=== PATIENT | male | born 1945 | race Caucasian/White ===

== ENCOUNTER 2016-09-24 13:16 | Emergency (ER) | payer OTHER ==
[~2016-09-24] VITALS: Ht 172.7 cm; Wt 78.3 kg
[~2016-09-24 13:16] MED LIST: ATEN-100 PO; DILA100C PO; TERA1CAP3 PO
[2016-09-24 13:58] VITALS: BP 144/78; PULSE 74; RESP 18; TEMP 98.5; O2SAT 93
[2016-09-24] MEDS ORDERED: SIMV40TA PO (14:39)
[2016-09-24] MEDS ORDERED: ATEN25TA PO (14:39)
[2016-09-24] MEDS ORDERED: DILA100C PO (14:39)
[2016-09-24] MEDS ORDERED: TERA1CAP3 PO (14:39)
[2017-03-11] MEDS ORDERED: shower chair (12:37)
[2017-03-11] MEDS ORDERED: WHEEMIS3 (12:37)
[2017-03-11] MEDS ORDERED: COMMODE 3-IN-11 MIS (12:37)
[2017-03-11] MEDS ORDERED: GETGO ROLLING W1 MI1 (12:37)
[2017-03-11] MEDS ORDERED: [UNRECOGNIZED DRUG - SUPPLY] (13:50)
[2017-03-11] MEDS ORDERED: PROT40TA PO (13:55)
[2017-03-11] MEDS ORDERED: CARV3.125 PO (13:55)
[2017-03-11] MEDS ORDERED: NIFE30TA8 PO (13:55)
[2017-03-11] MEDS ORDERED: SYMB160A INH (13:55)
[2017-03-11] MEDS ORDERED: CARD2TAB PO (13:55)
[2017-03-11] MEDS ORDERED: VENTAER INH (13:55)
[2017-03-11] MEDS ORDERED: ATOR40TA16 PO (13:55)
[2017-03-11] MEDS ORDERED: FERR325T20 PO (13:55)
[2017-03-11] MEDS ORDERED: TAMS5CAP PO (13:55)
[2017-03-11] MEDS ORDERED: DILA100C PO (13:55)
== END 2016-09-24 14:56 | disposition left against medical advice (07) ==
LOC: PHED 13:16 → PHEFT 14:56
DX: R04.2 Hemoptysis (principal); R53.83 Other fatigue
CPT/HCPCS: 99281

== ENCOUNTER 2016-10-21 08:11 | Inpatient (IN) | payer MEDICARE, OTHER ==
[2016-10-21] VITALS (18 sets, daily range): BP systolic 113–163; BP diastolic 67–79; PULSE 68–82; RESP 16–28; TEMP 98.6; O2SAT 77–100
[~2016-10-21] VITALS: Ht 172.7 cm; Wt 92.5 kg
[~2016-10-21 08:11] MED LIST changes: -ATEN-100 PO; +ATEN25TA PO; +SIMV40TA PO
[2016-10-21 08:30] LABS: AUTOMATED NEUTROPHIL # 7.8 TH/MM3 (1.8-7.7); BASOPHIL # 0.5 TH/MM3 (0-0.2); BASOPHIL % 4.3 % (0.0-2.0); EOSINOPHIL # 0.2 TH/MM3 (0-0.4); EOSINOPHIL % 1.9 % (0.0-4.0); HEMATOCRIT 39.5 % (39.0-51.0); HEMO FLAGS DIFF FINAL; LYMPH % 16.4 % (9.0-44.0); LYMPHOCYTE # 1.8 TH/MM3 (1.0-4.8); MEAN CELL VOLUME 85.5 FL (80.0-100.0); MEAN CORPUSCULAR HGB CONC 33.9 % (32.0-36.0); MONO % 5.5 % (0.0-8.0); NEUT % 71.9 % (16.0-70.0); PLATELET COUNT 457 TH/MM3 (150-450); RED BLOOD COUNT 4.62 MIL/MM3 (4.50-5.90); WHITE BLOOD COUNT 10.9 TH/MM3 (4.0-11.0)
[2016-10-21] MEDS ORDERED: methylPREDNISolone SOD SUCC 125 MG/2 ML VIAL IVP ONE (08:30)
[2016-10-21] MEDS ORDERED: SODIUM CHLORIDE 0.9% FLUSH 5 ML FLUSH IVF PRN (08:30)
[2016-10-21] MEDS: RESP: ALBUTEROL 2.5 MG/IPRATROPIUM 0.5 MG NEB (SCH) INH ×5 (08:32→19:14)
[2016-10-21 08:40] LABS: CHLORIDE 103 MEQ/L (98-107); POTASSIUM 3.3 MEQ/L (3.5-5.1); SODIUM (NA) 139 MEQ/L (136-145)
[2016-10-21 08:43] LABS: ANION GAP 8 MEQ/L (5-15); BICARBONATE 27.9 MEQ/L (21.0-32.0)
[2016-10-21 08:44] LABS: BLOOD UREA NITROGEN 22 MG/DL (7-18)
[2016-10-21 08:46] LABS: ALT (GPT) 12 U/L (12-78); AST (GOT) 12 U/L (15-37)
[2016-10-21 08:47] LABS: GLOMERULAR FILTRATION RATE 74 ML/MIN (>89)
[2016-10-21 08:48] LABS: TOTAL BILIRUBIN ADULT 0.3 MG/DL (0.2-1.0)
[2016-10-21 08:49] LABS: ALKALINE PHOSPHATASE 84 U/L (45-117); PROTHROMBIN TIME - PATIENT 10.5 SEC (9.8-11.6)
[2016-10-21] MEDS ORDERED: TERA2CAP3 PO (08:49)
[2016-10-21] MEDS ORDERED: SIMV10TA PO (08:49)
[2016-10-21] MEDS ORDERED: ATEN25TA PO (08:49)
[2016-10-21] MEDS ORDERED: DILA100C PO (08:49)
[2016-10-21 09:11] LABS: APTT (PATIENT) 20.9 SEC (24.3-30.1)
[2016-10-21] MEDS ORDERED: IOHEXOL 350 MG/ML 10 ML VIAL (for RAD DIAG) IV ONE (09:28)
--- NOTE | 2016-10-21 09:31 | EKG ---
Date Performed: 10/21/2016 Time Performed: 08:26:52 PTAGE: 71 years EKG: Sinus rhythm Right axis deviation Right bundle branch block Abnormal ECG PREVIOUS TRACING : 08/08/2015 11.42 Compared to previous tracing, right bundle branch block is now evident. DOCTOR: Jun Dawn Interpretating Date/Time 10/21/2016 09:30:08
--- NOTE | 2016-10-21 09:41 | RADHPO ---
EXAM DATE/TIME: 10/21/2016 09:13 [place] COMPARISON: CHEST SINGLE AP, August 08, 2015, 11:44. INDICATIONS : Short of breath and hemoptysis. IV CONTRAST: 70 cc Omnipaque 350 (iohexol) IV RADIATION DOSE: 16.10 CTDIvol (mGy) MEDICAL HISTORY : Hypertension. SURGICAL HISTORY : None. ENCOUNTER: Initial ACUITY: 2 days PAIN SCALE: 0/10 LOCATION: chest TECHNIQUE: Volumetric scanning of the chest was performed using a pulmonary embolism protocol MIP images were re constructed. Using automated exposure control and adjustment of the mA and/or kV according to patien t size, radiation dose was kept as low as reasonably achievable to obtain optimal diagnostic quality images. FINDINGS: Pulmonary seen off the third and fourth vertebrae 2 without defects or emboli. Right lung is clear. L eft lung reveals total opacification with a large pleural effusion and collapse of the right right renzo ng with abrupt termination of the left main bronchus and small nodularity within this suggesting cent ral obstructing lesion or mucous plugging. Bronchoscopy recommended.. CONCLUSION: Complete opacification of the left lung with central line this abrupt narrowing and nodularity centra l lesion or mucous plug suggested with collapse of the left lung a large effusion. Negative for pulmo nary. Jonathan Farrell MD on October 21, 2016 at 9:35 Board Certified Radiologist. This report was verified electronically.
--- NOTE | 2016-10-21 10:05 | PD ---
HPI Chief Complaint: Respiratory Distress Time Seen by Provider: 08:14 Travel History International Travel<30 days: No Contact w/Intl Traveler<30days: No Traveled to known affect area: No History of Present Illness HPI Patient is a 71-year-old male comes in complaining of cough and shortness of breath. He says for the past 2 days he has been coughing up blood. He says occasionally he passes clots, but often is just streaks in his mucus. He denies any chest pain, but says he is very short of breath when walking. He says he had an episode earlier in the month and he tried to come to the emergency department, but was frustrated with the wait and left. He says it went away, but has come back. He has smoked cigarettes, but quit several years ago. He does say that he currently smokes a pipe. He denies any fever or chills. He is not on any blood thinners, and this has never happened to him before. 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) Substance Use: No Allergies-Medications (Allergen,Severity, Reaction): Coded Allergies: No Known Allergies (Unverified , 10/21/16) Reported Meds & Prescriptions Reported Meds & Active Scripts Active Reported Terazosin (Terazosin HCl) Unknown Strength Cap Unknown Dose PO HS Simvastatin Unknown Strength Tab Unknown Dose PO DAILY Dilantin (Phenytoin Extended) 100 Mg Cap 300 Mg PO BID Atenolol 25 Mg Tab 25 Mg PO BID Review of Systems Except as stated in HPI: all other systems reviewed are Neg General / Constitutional: No: Fever, Chills HENT: No: Headaches, Lightheadedness Cardiovascular: No: Chest Pain or Discomfort Respiratory: Positive: Cough, Shortness of Breath, Hemoptysis Gastrointestinal: No: Nausea, Vomiting Musculoskeletal: No: Edema, Pain Skin: No Change in Pigmentation Neurologic: No: Weakness, Dizziness Physical Exam Narrative GENERAL: Awake and alert in no acute distress. SKIN: Warm and dry. HEAD: Atraumatic. Normocephalic. EYES: Pupils equal and round. No scleral icterus. ENT: Mucous membranes pink and moist. NECK: Trachea midline. No JVD. CARDIOVASCULAR: Regular rate and rhythm. No murmur appreciated. RESPIRATORY: Decreased breath sounds on the left. Crackles throughout both lungs. GASTROINTESTINAL: Abdomen soft, non-tender, nondistended. MUSCULOSKELETAL: No obvious deformities. No clubbing. No cyanosis. No edema. NEUROLOGICAL: Awake and alert. No obvious cranial nerve deficits. Motor grossly within normal limits. Normal speech. PSYCHIATRIC: Appropriate mood and affect; insight and judgment normal. Data Data Last Documented VS Vital Signs Date Time Temp Pulse Resp B/P Pulse Ox O2 Delivery O2 Flow Rate FiO2 10/21/16 10:00 76 22 96 Nasal Cannula 2 10/21/16 09:35 158/75 10/21/16 08:11 98.6 Orders Complete Blood Count With Diff (10/21/16 08:20) Comprehensive Metabolic Panel (10/21/16 08:20) Act Partial Throm Time (Ptt) (10/21/16 08:20) Prothrombin Time / Inr (Pt) (10/21/16 08:20) Troponin I (10/21/16 08:20) Iv Access Insert/Monitor (10/21/16 08:20) Electrocardiogram (10/21/16 08:20) Ecg Monitoring (10/21/16 08:20) Oximetry (10/21/16 08:20) Oxygen Administration (10/21/16 08:20) Ct Pulmonary Angiogram (10/21/16 08:20) Sodium Chloride 0.9% Flush (Ns Flush) (10/21/16 08:30) Methylprednisolone So Succ Inj (Solumedr (10/21/16 08:30) Albuterol-Ipratropium Neb (Duoneb Neb) (10/21/16 08:30) Iohexol 350 Inj (Omnipaque 350 Inj) (10/21/16 09:28) Admit Order (Ed Use Only) (10/21/16 ) Consult Pulmonology (10/21/16 ) Admit To Inpatient (10/21/16 ) Code Status (10/21/16 10:13) Vital Signs (Adult) TIERNEY.Q1H (10/21/16 10:13) Activity Bed Rest (10/21/16 10:13) Diet Npo (10/21/16 Lunch) Sodium Chlor 0.9% 1000 Ml Inj (Ns 1000 M (10/21/16 11:00) Sodium Chloride 0.9% Flush (Ns Flush) (10/21/16 10:15) Sodium Chloride 0.9% Flush (Ns Flush) (10/21/16 21:00) Acetaminophen (Tylenol) (10/21/16 10:15) Pantoprazole Inj (Protonix Inj) (10/22/16 09:00) Docusate Sodium (Colace) (10/21/16 21:00) Albuterol-Ipratropium Neb (Duoneb Neb) (10/21/16 12:00) Albuterol-Ipratropium Neb (Duoneb Neb) (10/21/16 10:15) Complete Blood Count With Diff (10/22/16 04:00) Comprehensive Metabolic Panel (10/22/16 04:00) Magnesium (Mg) (10/22/16 04:00) Sputum Culture And Gram Stain (10/21/16 10:13) Chest, Single Ap (10/22/16 ) Arterial Blood Gas (Abg) (10/21/16 ) Pt Request For Service (10/21/16 10:13) Fry Cook / Telemetry (10/21/16 10:13) Scd Bilateral/Knee High TIERNEY.BID (10/21/16 10:13) Ji Bilateral/Knee High TIERNEY.QSHIFT (10/21/16 10:13) ^ Initiate Protocol (10/21/16 10:13) ^ Instruction (10/21/16 10:13) [facility] [place] [facility] [place] (10/21/16 10:15) Chlorhexidine 2% Cloth (Chlorhexidine 2% (10/22/16 04:00) Chlorhexidine 2% Cloth (Chlorhexidine 2% (10/21/16 10:15) [facility] Pcr Surveillance (10/21/16 10:13) Inpatient Certification (10/21/16 ) Labs Laboratory Tests Test 10/21/16 08:25 White Blood Count 10.9 TH/MM3 Red Blood Count 4.62 MIL/MM3 Hemoglobin 13.4 GM/DL Hematocrit 39.5 % Mean Corpuscular Volume 85.5 FL Mean Corpuscular Hemoglobin 29.0 PG Mean Corpuscular Hemoglobin 33.9 % Concent Red Cell Distribution Width 13.0 % Platelet Count 457 TH/MM3 Mean Platelet Volume 6.9 FL Neutrophils (%) (Auto) 71.9 % Lymphocytes (%) (Auto) 16.4 % Monocytes (%) (Auto) 5.5 % Eosinophils (%) (Auto) 1.9 % Basophils (%) (Auto) 4.3 % Neutrophils # (Auto) 7.8 TH/MM3 Lymphocytes # (Auto) 1.8 TH/MM3 Monocytes # (Auto) 0.6 TH/MM3 Eosinophils # (Auto) 0.2 TH/MM3 Basophils # (Auto) 0.5 TH/MM3 CBC Comment DIFF FINAL Differential Comment Prothrombin Time 10.5 SEC Prothromb Time International 1.0 RATIO Ratio Activated Partial 20.9 SEC Thromboplast Time Sodium Level 139 MEQ/L Potassium Level 3.3 MEQ/L Chloride Level 103 MEQ/L Carbon Dioxide Level 27.9 MEQ/L Anion Gap 8 MEQ/L Blood Urea Nitrogen 22 MG/DL Creatinine 1.00 MG/DL Estimat Glomerular Filtration 74 ML/MIN Rate Random Glucose 133 MG/DL Calcium Level 8.4 MG/DL Phosphorus Level 2.2 MG/DL Total Bilirubin 0.3 MG/DL Aspartate Amino Transf 12 U/L (AST/SGOT) Alanine Aminotransferase 12 U/L (ALT/SGPT) Alkaline Phosphatase 84 U/L Troponin I LESS THAN 0.02 NG/ML Total Protein 7.0 GM/DL Albumin 2.9 GM/DL MDM Medical Decision Making Medical Screen Exam Complete: Yes Emergency Medical Condition: Yes Interpretation(s) ECG shows right bundle branch block, sinus rhythm at 72, no ST elevation or depression. Differential Diagnosis Pneumonia versus pulmonary embolus versus pulmonary mass versus tuberculosis versus CHF Narrative Course Patient is a 71 year old male who comes in complaining of SOB and hemoptysis. Exam shows decreased breath sounds on the left with crackles throughout both lungs. Patient connected to the court monitor. In triage his O2 sat was in the 70s. On 2 L in the emergency department, his oxygen saturation is 95%. IV established. Patient given 3 duo nebs and a dose of Solu-Medrol. Labs show a potassium of 3.3, which was replaced. No other acute abnormalities. CT of the chest shows no evidence of pulmonary embolus, however patient has large left-sided pleural effusion and collapse of the left lung. This is likely due to something blocking the bronchials whether it is a mucous plug or a mass. Patient will require bronchoscopy as well as chest tube placement. Patient will be admitted to the ICU at the main hospital for further management. Diagnosis Primary Impression: Pleural effusion Additional Impressions: Pneumothorax Qualified Code: J93.83 - Other pneumothorax Hypoxia Bronchiolar obstruction Admitting Information Admitting Physician Requests: Admit Amada Colbert MD Oct 21, 2016 10:05
[2016-10-21] MEDS ORDERED: MISCELLANEOUS NURSING INFORMATION XX SCH (10:15)
[2016-10-21] MEDS ORDERED: SODIUM CHLORIDE 0.9% FLUSH 5 ML FLUSH IV FLUSH PRN (10:15)
[2016-10-21] MEDS ORDERED: ACETAMINOPHEN 325 MG TAB PO PRN (10:15)
[2016-10-21] MEDS ORDERED: CHLORHEXIDINE GLUCONATE 2 % 1 PACK (2 CLOTHS) TOP PRN (10:15)
[2016-10-21] MEDS ORDERED: MAGNESIUM SULFATE INJ 2 GM in SODIUM CHLORIDE 0.9% INJ 96 ML IV PRN (10:30)
[2016-10-21] MEDS ORDERED: POTASSIUM CHLOR 40 MEQ PREMIX 100 ML IV PRN ×2 (10:30)
[2016-10-21] MEDS ORDERED: POTASSIUM PHOSPHATE MONOBASIC 500 MG TAB PO/TUBE PRN (10:30)
[2016-10-21] MEDS ORDERED: POTASSIUM CL 40 MEQ/30 ML LIQ UDC PO/TUBE PRN ×2 (10:30)
[2016-10-21] MEDS ORDERED: MAGNESIUM OXIDE 400 MG TAB PO PRN (10:30)
[2016-10-21] MEDS ORDERED: SODIUM PHOSPHATE INJ 30 MMOL in SODIUM CHLOR 0.9% 250 ML INJ 240 ML IV PRN (10:30)
[2016-10-21] MEDS ORDERED: POTASSIUM PHOSPHATE MONOBASIC 500 MG TAB PO PRN (10:30)
[2016-10-21] MEDS ORDERED: POTASSIUM CHLOR 20 MEQ PREMIX 100 ML IV PRN ×2 (10:30)
[2016-10-21] MEDS ORDERED: POTASSIUM PHOSPHATE INJ 30 MMOL in SODIUM CHLOR 0.9% 250 ML INJ 250 ML IV PRN (10:30)
[2016-10-21] MEDS ORDERED: methylPREDNISolone SOD SUCC 125 MG/2 ML VIAL IV PUSH ONE (10:30)
[2016-10-21] MEDS ORDERED: MAGNESIUM SULFATE INJ 4 GM in SODIUM CHLORIDE 0.9% INJ 92 ML IV PRN (10:30)
[2016-10-21] MEDS: SODIUM CHLOR 0.9% 1000 ML INJ 1,000 ML IV SCH ×2 (10:52→22:55)
[2016-10-21 11:27] LABS: BLOOD GAS BASE EXCESS 1.1 mmol/L (-2-2); BLOOD GAS CARBOXYHEMOGLOBIN 2.4 % (0-4); BLOOD GAS HCO3 25 mmol/L (22-26); BLOOD GAS METHEMOGLOBIN 1.1 % (0-2); BLOOD GAS O2 HGB SATURATION 93 % (90-100); BLOOD GAS OXYGEN CONTENT 15.5 Vol % (12.0-20.0); BLOOD GAS PCO2 39 mmHG (38-42); BLOOD GAS PO2 80 mmHG (61-120); BLOOD GAS TOTAL HGB 11.8 G/DL (12.0-16.0); CRITICAL VALUE NO; DRAW SITE RT RADIAL; LITER FLOW 2 L/M; NUMBER OF ARTERIAL PUNCTURES 1; OXYGEN DEVICE NASAL CANNULA; TEMP CORR TO 98.6; ULNAR PULSE PRESENT
[2016-10-21 11:28] LABS: STAT NO
[2016-10-21] MEDS: AZITHROMYCIN INJ 500 MG in SODIUM CHLOR 0.9% 250 ML INJ 250 ML IV SCH (11:30)
[2016-10-21] MEDS: PIPERACIL-TAZO 4.5 GM PREMIX 100 ML IV SCH ×3 (12:13→23:59)
[2016-10-21] MEDS: methylPREDNISolone SOD SUCC 125 MG/2 ML VIAL IV PUSH SCH ×2 (17:27→23:58)
[2016-10-21] MEDS: SODIUM CHLORIDE 0.9% FLUSH 5 ML FLUSH IVF PRN ×2 (17:28→17:37)
[2016-10-21] MEDS: SODIUM CHLORIDE 0.9% FLUSH 5 ML FLUSH IVF SCH (21:00)
[2016-10-21] MEDS ORDERED: SODIUM CHLORIDE 0.9% FLUSH 5 ML FLUSH IV FLUSH SCH (21:00)
[2016-10-21] MEDS: DOCUSATE SODIUM 100 MG CAP PO SCH (21:00)
[2016-10-21] MEDS: ATENOLOL 25 MG TAB PO SCH (21:30)
[2016-10-21] MEDS: PHENYTOIN SODIUM 100 MG CAP PO SCH (21:30)
[2016-10-21 21:50] LABS: RHEUMATOID FACTOR TRIGGER LESS THAN 10.0 IU/ML (0.0-14.9)
[2016-10-21] MEDS: CHLORHEXIDINE GLUCONATE 2 % 1 PACK (2 CLOTHS) TOP SCH (23:59)
[2016-10-22] VITALS (14 sets, daily range): BP systolic 101–176; BP diastolic 55–85; PULSE 66–75; RESP 18–24; TEMP 97.6–98.9; O2SAT 90–96
[2016-10-22] MEDS: RESP: ALBUTEROL 2.5 MG/IPRATROPIUM 0.5 MG NEB (SCH) INH ×7 (00:01→23:43)
[2016-10-22 04:23] LABS: AUTOMATED NEUTROPHIL # 10.2 TH/MM3 (1.8-7.7); BASOPHIL # 0.1 TH/MM3 (0-0.2); HEMATOCRIT 31.4 % (39.0-51.0); HEMO FLAGS DIFF FINAL; LYMPHOCYTE # 0.8 TH/MM3 (1.0-4.8); MEAN CELL VOLUME 85.2 FL (80.0-100.0); MEAN CORPUSCULAR HEMOGLOBIN 29.2 PG (27.0-34.0); MEAN CORPUSCULAR HGB CONC 34.3 % (32.0-36.0); PLATELET COUNT 345 TH/MM3 (150-450); RED BLOOD COUNT 3.68 MIL/MM3 (4.50-5.90); RED CELL DISTRIBUTION WIDTH 14.1 % (11.6-17.2); WHITE BLOOD COUNT 11.6 TH/MM3 (4.0-11.0)
[2016-10-22] MEDS: methylPREDNISolone SOD SUCC 125 MG/2 ML VIAL IV PUSH SCH ×4 (04:51→23:22)
[2016-10-22] MEDS: PIPERACIL-TAZO 4.5 GM PREMIX 100 ML IV SCH ×4 (04:51→23:22)
[2016-10-22 04:59] LABS: ALT (GPT) 13 U/L (12-78); ANION GAP 5 MEQ/L (5-15); AST (GOT) 12 U/L (15-37); BICARBONATE 27.9 MEQ/L (21.0-32.0); BLOOD UREA NITROGEN 20 MG/DL (7-18); CHLORIDE 104 MEQ/L (98-107); GLOMERULAR FILTRATION RATE 74 ML/MIN (>89); MAGNESIUM 2.2 MG/DL (1.5-2.5); POTASSIUM 4.3 MEQ/L (3.5-5.1); SODIUM (NA) 137 MEQ/L (136-145)
[2016-10-22 05:00] LABS: ALKALINE PHOSPHATASE 70 U/L (45-117); TOTAL BILIRUBIN ADULT 0.3 MG/DL (0.2-1.0)
--- NOTE | 2016-10-22 05:29 | HHI.HP ---
[facility] Service Critical Care Medicine Primary Care Physician [facility] Admission Diagnosis Pneumothorax, pulmonary effusion, bronchiole obstruciton Diagnosis: Travel History International Travel<30 Days: No Contact w/Intl Traveler <30 Da: No Traveled to Known Affected Are: No History of Present Illness 71-year-old male comes in complaining of cough and shortness of breath. He says for the past 2 days he has been coughing up blood. He occasionally passes clots, but often is just streaks in his mucus. He denies any chest pain, but says he is very short of breath when walking. He says he had an episode earlier in the month and he tried to come to the emergency department, but was frustrated with the wait and left. He says it went away, but has come back. He has smoked cigarettes, but quit several years ago. He does say that he currently smokes a pipe. He denies any fever or chills. He is not on any blood thinners, and this has never happened to him before. CT angio revealed Complete opacification of the left lung with central line this abrupt narrowing and nodularity central lesion or mucous plug suggested with collapse of the left lung a large effusion. Review of Systems Constitutional: DENIES: Diaphoretic episodes, Fatigue, Fever, Weight gain, Weight loss, Chills, Dizziness, Change in appetite, Night Sweats Endocrine: DENIES: Heat/cold intolerance, Polydipsia, Polyuria, Polyphagia Eyes: DENIES: Blurred vision, Diplopia, Eye inflammation, Eye pain, Vision loss , Photosensitivity, Double Vision Ears, nose, mouth, throat: DENIES: Tinnitus, Hearing loss, Vertigo, Nasal discharge, Oral lesions, Throat pain, Hoarseness, Ear Pain, Running Nose, Epistaxis, Sinus Pain, Toothache, Odynophagia Respiratory: COMPLAINS OF: Cough, Hemoptysis, Sputum production, Shortness of breath, DENIES: Apneas, Snoring, Wheezing Cardiovascular: DENIES: Chest pain, Palpitations, Syncope, Dyspnea on Exertion , PND, Lower Extremity Edema, Orthopnea, Claudication Gastrointestinal: DENIES: Abdominal pain, Black stools, Bloody stools, Constipation, Diarrhea, Nausea, Vomiting, Difficulty Swallowing, Anorexia Genitourinary: DENIES: Sexual dysfunction, Urinary frequency, Urinary incontinence, Urgency, Hematuria, Dysuria, Nocturia, Penile Discharge, Testicular Pain, Testicular Swelling Musculoskeletal: DENIES: Joint pain, Muscle aches, Stiffness, Joint Swelling, Back pain, Neck pain Integumentary: DENIES: Abnormal pigmentation, Nail changes, Pruritus, Rash Hematologic/lymphatic: DENIES: Bruising, Lymphadenopathy Immunologic/allergic: DENIES: Eczema, Urticaria Neurologic: DENIES: Abnormal gait, Headache, Localized weakness, Paresthesias, Seizures, Speech Problems, Tremor, Poor Balance Psychiatric: DENIES: Anxiety, Confusion, Mood changes, Depression, Hallucinations, Agitation, Suicidal Ideation, Homicidal Ideation, Delusions Past Family Social History Allergies: Coded Allergies: No Known Allergies (Unverified , 10/21/16) Past Medical History High Cholesterol Genitourinary: Yes (enlarged prostate) Hypertension: Yes Seizures: Yes Past Surgical History Tonsillectomy Reported Medications Terazosin (Terazosin HCl) Unknown Strength Cap Unknown Dose PO HS Simvastatin Unknown Strength Tab Unknown Dose PO DAILY Dilantin (Phenytoin Extended) 100 Mg Cap 300 Mg PO BID Atenolol 25 Mg Tab 25 Mg PO BID Active Ordered Medications Current Medications Medications (Trade) Dose Ordered Sig/Luis Carlos Route PRN Reason Start Time Stop Time Status Last Admin Dose Admin Sodium Chloride (NS 1000 ml Inj) 1,000 ml @ 84 mls/hr [id number] IV 10/21/16 11:00 10/21/16 22:55 Acetaminophen (Tylenol) 650 mg Q6H PRN PO PAIN 1-10 AND/OR FEVER >101F 10/21/16 10:15 Pantoprazole Sodium (Protonix Inj) 40 mg DAILY IV 10/22/16 09:00 Docusate Sodium (Colace) 100 mg BID PO 10/21/16 21:00 Miscellaneous Information 1 [id number] XX 10/21/16 10:15 Chlorhexidine Gluconate (Chlorhexidine 2% Cloth) 3 pack Taper DAILY@04 TOP 10/22/16 04:00 10/18/17 03:59 10/21/16 23:59 Chlorhexidine Gluconate 3 pack 3 pack UNSCH PRN TOP HYGIENIC CARE 10/21/16 10:15 Potassium Chloride 100 ml @ 50 mls/hr Q2H PRN IV For Potassium 2.8 - 3.2 mEq/L 10/21/16 10:30 Potassium Chloride (KCl 20 Meq Premix Inj) 100 ml @ 50 mls/hr Q2H PRN IV For Potassium 2.8 - 3.2 mEq/L 10/21/16 10:30 Potassium Chloride 40 meq 40 meq UNSCH PRN PO/TUBE For Potassium 3.3 - 3.5 mEq/L 10/21/16 10:30 Potassium Chloride 100 ml @ 25 mls/hr UNSCH PRN IV For Potassium 3.3 - 3.5 mEq/L 10/21/16 10:30 Potassium Chloride 100 ml @ 50 mls/hr Q2H PRN IV For Potassium 3.3 - 3.5 mEq/L 10/21/16 10:30 Magnesium Sulfate/ Sodium Chloride (Magnesium Sulfate Inj/NS Inj) 100 ml @ 50 mls/hr UNSCH PRN IV For Magnesium 0.9 - 1.1 mg/dL 10/21/16 10:30 Magnesium Oxide 800 mg 800 mg UNSCH PRN PO For Magnesium 1.2 - 1.6 mg/dL 10/21/16 10:30 Magnesium Sulfate/ Sodium Chloride (Magnesium Sulfate Inj/NS Inj) 100 ml @ 50 mls/hr UNSCH PRN IV For Magnesium 1.2 - 1.6 mg/dL 10/21/16 10:30 Potassium Phosphate 2000 mg 2,000 mg Q4H PRN PO For Phosphorus < 2.5 mg/dL 10/21/16 10:30 Sodium Phosphate/ Sodium Chloride (Sodium Phosphate Inj/NS 250 ml Inj) 250 ml @ 42 mls/hr UNSCH PRN IV For Phosphorus < 2.5 mg/dL 10/21/16 10:30 Potassium Chloride (KCl 40 Meq/30 ml Liq) 40 meq UNSCH PRN PO/TUBE SEE LABEL COMMENTS 10/21/16 10:30 10/21/16 18:21 Potassium Phosphate 2000 mg 2,000 mg UNSCH PRN PO/TUBE SEE LABEL COMMENTS 10/21/16 10:30 10/21/16 18:21 Potassium Phosphate/Sodium Chloride (Potassium Phosphate Inj/NS 250 ml Inj) 260 ml @ 42 mls/hr UNSCH PRN IV SEE LABEL COMMENTS 10/21/16 10:30 Methylprednisolone Sodium Succinate 60 mg 60 mg Q6H IV PUSH 10/21/16 17:00 10/22/16 04:51 Piperacillin Sod/ Tazobactam Sod 100 ml @ 200 mls/hr Q6HR IV 10/21/16 12:00 10/22/16 04:51 Azithromycin/ Sodium Chloride (Zithromax Inj/ NS 250 ml Inj) 250 ml @ 250 mls/hr Q24H IV 10/21/16 11:00 10/21/16 11:30 IV Flush (NS Flush) 2 ml UNSCH PRN IVF FLUSH AFTER USING IV ACCESS 10/21/16 15:15 10/21/16 17:37 IV Flush (NS Flush) 2 ml BID IVF 10/21/16 21:00 Atenolol (Tenormin) 25 mg BID PO 10/21/16 21:00 10/21/16 21:30 Phenytoin (Dilantin) 300 mg BID PO 10/21/16 21:00 10/21/16 21:30 Family History Noncontributory Social History Alcohol Use: No 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) Substance Use: No Physical Exam Vital Signs Vital Signs Date Time Temp Pulse Resp B/P Pulse Ox O2 Delivery O2 Flow Rate FiO2 10/22/16 04:00 98.9 71 24 154/76 92 10/22/16 04:00 71 10/22/16 02:00 68 10/22/16 00:00 70 10/21/16 23:47 98.6 69 20 163/72 95 10/21/16 23:00 78 20 138/77 99 10/21/16 21:45 Nasal Cannula 2 10/21/16 21:45 98 Nasal Cannula 2 10/21/16 21:30 79 20 140/79 98 Nasal Cannula 2 10/21/16 20:15 73 18 142/76 100 Nasal Cannula 2 10/21/16 19:15 73 18 142/78 99 Nasal Cannula 2 10/21/16 19:15 Nasal Cannula 2.00 10/21/16 19:12 97 Nasal Cannula 2.00 10/21/16 18:20 70 16 98 Nasal Cannula 2 10/21/16 16:20 79 16 99 Nasal Cannula 2 10/21/16 15:30 79 16 139/69 99 Nasal Cannula 2 10/21/16 14:35 78 18 130/75 99 Nasal Cannula 2 10/21/16 14:15 74 18 99 Nasal Cannula 2 10/21/16 13:30 76 16 137/74 99 Nasal Cannula 2 10/21/16 12:25 77 16 134/69 100 Nasal Cannula 2 10/21/16 12:10 78 18 99 Nasal Cannula 2 10/21/16 11:38 69 18 138/67 100 Nasal Cannula 2 10/21/16 10:30 72 18 146/75 100 Nasal Cannula 2 10/21/16 10:00 76 22 96 Nasal Cannula 2 10/21/16 09:35 75 20 158/75 97 Nasal Cannula 2 10/21/16 08:49 68 20 113/74 100 Nasal Cannula 4 10/21/16 08:35 100 Nasal Cannula 3.50 10/21/16 08:15 83 28 98 Nasal Cannula 4 10/21/16 08:15 98 Nasal Cannula 4 10/21/16 08:15 24 98 Nasal Cannula 4 10/21/16 08:11 98.6 82 28 163/73 78 Physical Exam GENERAL: Well-nourished, well-developed patient. SKIN: Warm and dry. HEAD: Normocephalic. EYES: No scleral icterus. No injection or drainage. NECK: Supple, trachea midline. No JVD or lymphadenopathy. CARDIOVASCULAR: Regular rate and rhythm without murmurs, gallops, or rubs. RESPIRATORY: Breath sounds equal bilaterally. No accessory muscle use. GASTROINTESTINAL: Abdomen soft, non-tender, nondistended. MUSCULOSKELETAL: No cyanosis, or edema. BACK: Nontender without obvious deformity. No CVA tenderness. EXTREMITIES: Laboratory Laboratory Tests Test 10/21/16 10/21/16 10/21/16 10/21/16 08:25 11:20 16:25 23:45 White Blood Count 10.9 Red Blood Count 4.62 Hemoglobin 13.4 Hematocrit 39.5 Mean Corpuscular Volume 85.5 Mean Corpuscular Hemoglobin 29.0 Mean Corpuscular Hemoglobin 33.9 Concent Red Cell Distribution Width 13.0 Platelet Count 457 Mean Platelet Volume 6.9 Neutrophils (%) (Auto) 71.9 Lymphocytes (%) (Auto) 16.4 Monocytes (%) (Auto) 5.5 Eosinophils (%) (Auto) 1.9 Basophils (%) (Auto) 4.3 Neutrophils # (Auto) 7.8 Lymphocytes # (Auto) 1.8 Monocytes # (Auto) 0.6 Eosinophils # (Auto) 0.2 Basophils # (Auto) 0.5 CBC Comment DIFF FINAL Differential Comment Prothrombin Time 10.5 Prothromb Time International 1.0 Ratio Activated Partial 20.9 Thromboplast Time Sodium Level 139 Potassium Level 3.3 Chloride Level 103 Carbon Dioxide Level 27.9 Anion Gap 8 Blood Urea Nitrogen 22 Creatinine 1.00 Estimat Glomerular Filtration 74 Rate Random Glucose 133 Calcium Level 8.4 Phosphorus Level 2.2 Total Bilirubin 0.3 Aspartate Amino Transf 12 (AST/SGOT) Alanine Aminotransferase 12 (ALT/SGPT) Alkaline Phosphatase 84 Troponin I LESS THAN 0.02 Total Protein 7.0 Albumin 2.9 Blood Gas Puncture Site RT RADIAL Blood Gas Patient Temperature 98.6 Blood Gas HCO3 25 Blood Gas Base Excess 1.1 Blood Gas Oxygen Saturation 93 Arterial Blood pH 7.42 Arterial Blood Partial 39 Pressure CO2 Arterial Blood Partial 80 Pressure O2 Arterial Blood Oxygen Content 15.5 Arterial Blood 2.4 Carboxyhemoglobin Arterial Blood Methemoglobin 1.1 Blood Gas Hemoglobin 11.8 Oxygen Delivery Device NASAL CANNULA Blood Gas Liter Flow 2 Lactate Dehydrogenase 204 Rheumatoid Factor Screen NEGATIVE Rheumatoid Factor Titer Nasal Screen MRSA (PCR) NEGATIVE Test 10/22/16 04:04 White Blood Count 11.6 Red Blood Count 3.68 Hemoglobin 10.8 Hematocrit 31.4 Mean Corpuscular Volume 85.2 Mean Corpuscular Hemoglobin 29.2 Mean Corpuscular Hemoglobin 34.3 Concent Red Cell Distribution Width 14.1 Platelet Count 345 Mean Platelet Volume 7.0 Neutrophils (%) (Auto) 88.0 Lymphocytes (%) (Auto) 7.0 Monocytes (%) (Auto) 4.0 Eosinophils (%) (Auto) 0.0 Basophils (%) (Auto) 1.0 Neutrophils # (Auto) 10.2 Lymphocytes # (Auto) 0.8 Monocytes # (Auto) 0.5 Eosinophils # (Auto) 0.0 Basophils # (Auto) 0.1 CBC Comment DIFF FINAL Differential Comment Sodium Level 137 Potassium Level 4.3 Chloride Level 104 Carbon Dioxide Level 27.9 Anion Gap 5 Blood Urea Nitrogen 20 Creatinine 1.00 Estimat Glomerular Filtration 74 Rate Random Glucose 130 Calcium Level 8.0 Magnesium Level 2.2 Total Bilirubin 0.3 Aspartate Amino Transf 12 (AST/SGOT) Alanine Aminotransferase 13 (ALT/SGPT) Alkaline Phosphatase 70 Total Protein 6.0 Albumin 2.6 Date/Time Procedure Status Source Growth 10/21/16 12:55 Gram Stain Received Sputum Endotracheal Pending 10/21/16 12:55 Sputum Culture Received Sputum Endotracheal Pending Result Diagram: 1/31/17 0404 10/22/164 Imaging Last [address] Angiography 10/21/16 0820 Signed Impressions: Service Date/Time: Friday, October 21, 2016 09:13 - CONCLUSION: Complete opacification of the left lung with central line this abrupt narrowing and nodularity central lesion or mucous plug suggested with collapse of the left lung a large effusion. Negative for pulmonary. Jonathan Farrell MD Assessment and Plan Problem List: (1) Pleural effusion ICD Code: J90 Status: Acute (2) Hypoxia ICD Code: R09.02 Status: Acute (3) Bronchiolar obstruction ICD Code: J98.09 Status: Acute Assessment and Plan Pleural effusion - probably malignant - thoracentesis by IR - fluid analysis - f/u cytology HTN - Atenolol Seizure - Dilantin Pulmonary mas with obstruction - per Branch Sales Manager DVT/GI prophylaxis - Lovenox after thoracentesis/ Reg. Diet Level 3 Cory Ryan MD Oct 22, 2016 05:28
--- NOTE | 2016-10-22 07:28 | MB ---
cc: ANJALI YORK MD DATE OF CONSULTATION 10/21/[address] Colbert REASON FOR CONSULTATION Evaluation for lung mass and hemoptysis. HISTORY OF PRESENT ILLNESS Mr. Jaime is a pleasant 71-year-old male with history of nicotine use. Now he smokes cigars. The patient was not feeling well for the last three weeks or so. He had an episode of hemoptysis. The patient came to the emergency room. He waited for three hours and got frustrated and left the placed. He was doing well for the next two weeks or so, then he started having pain, cough and hemoptysis. He follows at the [facility] with Dr. Kelly. Because of worsening of his symptoms, he decided to come back to the emergency room. He had a CT scan of the chest done. It did not show any pulmonary embolism. It shows complete opacity of the left lung with abrupt narrowing and nodularity, central lesion or mucous plugging of the left lung. His blood gas shows pH of 7.42, pCO2 39, pO2 80, bicarb 25, saturation 93% on 2 liter nasal cannula. CBC with WBC of 10.9, hemoglobin 13.4, hematocrit 39.5, platelet count of 457. Sodium 139, potassium 3.3, chloride 103, CO2 27, BUN 22, creatinine 1.0. The patient is accepted at [facility] in the ICU for admission and chest tube placement. He is being transported soon over there. PAST MEDICAL HISTORY 1. Significant for history of hypertension. 2. Hypercholesteremia. 3. Seizure disorder when he was in service. His last seizure was more than 20 years ago. MEDICATIONS He is currently taking - 1. Protonix 40 mg a day. 1. Colace 100 mg twice a day. 2. Solu-Medrol 60 mg q. 6 hours. 3. Albuterol/Atrovent nebulizer treatment. 4. Zosyn q.6 hours. 5. Zithromax 500 mg per day. ALLERGIES No known drug allergies. SOCIAL HISTORY He is and lives alone. He has history of smoking, now he smokes cigars. No alcohol use. 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 FAMILY HISTORY He has four children. Two children live around here, two in [place]. REVIEW OF SYSTEMS Denies any weight loss. No headache or dizziness. No DVT or pulmonary embolism. No history of any stroke. PHYSICAL EXAMINATION GENERAL: A well-built, well-nourished male, not in acute distress. VITAL SIGNS: Blood pressure 139/69, heart rate 70, respirations 18. Temperature 99% on 2 liters nasal cannula. HEENT EXAMINATION: Pupils are equal and react to light. He had bilateral cataract surgery done. Oral mucosa, nasal mucosa normal. NECK: Supple. JVP not raised. CHEST: He has dull percussion note and almost no breath sounds on the left side. CV: S1 and S2 normal. ABDOMEN: Benign. EXTREMITIES: No edema. IMPRESSION 1. Large left pleural effusion with atelectasis. 2. Likely left lung mass or endobronchial lesion versus mucous plugging. 3. COPD. 4. Hemoptysis. 5. Nicotine use. 6. Hypertension. PLAN The patient is being transferred to the [facility]. He will have chest tube placement. We will reevaluate him after that and probably he will need, depending on the lung expansion, either bronchoscopy or a CT-guided biopsy. We will continue his antibiotics, supplemental oxygen. Continue aerosol treatment. Further treatment will depend on the course in the hospital. Thank you Dr. Colbert for this consult. MD ZACHARY Perez/JENIFFER /6:11 PM /7:14 AM
[2016-10-22] MEDS ORDERED: MORPHINE SULFATE 4 MG/ML INJ IV PUSH ONE ×2 (08:30→15:00)
--- NOTE | 2016-10-22 08:43 | PD.PROCEDR ---
Procedure Note Procedure Procedure DATE: 10/22/2016 L pigtail chest tube placement: INDICATION: Large left pleural effusion CONSENT Informed consent for procedure was obtained and time out performed. DESCRIPTION OF THE PROCEDURE A timeout was performed. The patient was appropriately placed for chest tube placement, on R lateral decubitus position. The left chest was prepped and draped in a sterile fashion. 1% lidocaine was used to anesthetize the surrounding skin area. A 0.25 cm skin incision was made in the site marked with US. Introducer needle was placed in the pleural space and slightly cloudy slightly brown tinged pleural fluid was aspirated, a guidewire was placed and needle removed. Tract was dilated and a 10 British pigtail catheter was placed using Seldinger technique. The chest tube was secured to the skin with 0 silk 1 /Vaseline gauze was applied and a sterile seal dressing was applied. The Pleur- evac was attached to the chest tube and a chest x-ray as been ordered. Initial out put 500 ML ESTIMATED BLOOD LOSS FOR PROCEDURE: <2 ml COMPLICATIONS: No apparent complications. STAT chest x-ray pending Valdez Miller MD Oct 22, 2016 08:42
[2016-10-22] MEDS: SODIUM CHLORIDE 0.9% FLUSH 5 ML FLUSH IVF SCH ×2 (09:00→20:13)
[2016-10-22] MEDS: DOCUSATE SODIUM 100 MG CAP PO SCH ×2 (09:21→20:12)
[2016-10-22] MEDS: ATENOLOL 25 MG TAB PO SCH ×2 (09:22→20:12)
[2016-10-22] MEDS: PHENYTOIN SODIUM 100 MG CAP PO SCH ×2 (09:22→20:12)
[2016-10-22] MEDS: PANTOPRAZOLE SODIUM 40 MG VIAL IV SCH (09:22)
--- NOTE | 2016-10-22 09:35 | RADRPT ---
EXAM DATE/TIME: 10/22/2016 08:45 [facility] COMPARISON: CHEST SINGLE AP, October 22, 2016, 7:39. INDICATIONS : Status Post left chest tube placement. MEDICAL HISTORY : Hypertension. SURGICAL HISTORY : None. ENCOUNTER: Subsequent ACUITY: 2 days PAIN SCORE: 0/10 LOCATION: Left chest FINDINGS: A single view of the chest demonstrates a left-sided chest tube in place. There is improved aeration of the left apex versus a small left pneumothorax compared to the prior study. Lung markings in the a pex are not definitely seen at this time. There continues to be predominantly consolidation of the le ft hemithorax which appears to be airless lung/lung collapse with deviation of the trachea towards th e left. This indicates that the airless lung has not reinflated at this time. The right lung is clear and well-aerated. The heart size is stable. CONCLUSION: 1. Left-sided chest tube in place. 2. There is either a small left apical pneumothorax versus some improved aeration of the left apex ho wever lung markings are not definitely visualized at this time. 3. Most of the left lung remains airless at this time. Tono Vazquez MD on October 22, 2016 at 9:30 Board Certified Radiologist. This report was verified electronically.
--- NOTE | 2016-10-22 10:33 | RADRPT ---
EXAM DATE/TIME: 10/22/2016 07:39 [facility] COMPARISON: Prior study July 2015. INDICATIONS : Code. Shortness of breath. MEDICAL HISTORY : Hypertension. SURGICAL HISTORY : None. ENCOUNTER: Initial ACUITY: 1 day PAIN SCORE: 0/10 LOCATION: Bilateral chest FINDINGS: A single view of the chest demonstrates the left hemithorax is completely opacified. There is some s hift of the mediastinum from right to left. There is some mild interstitial lung disease right lung. No pneumothorax is seen. CONCLUSION: Complete volume loss of the left lung with total consolidation likely most related to atelectasis. Femi Vazquez MD on October 22, 2016 at 8:37 Board Certified Radiologist. This report was verified electronically.
[2016-10-22 10:55] LABS: PLEURAL FLUID PH 8.5
[2016-10-22 11:33] LABS: TOTAL PROTEIN,PLEURAL FLUID 3.3 GM/DL
[2016-10-22] MEDS: AZITHROMYCIN INJ 500 MG in SODIUM CHLOR 0.9% 250 ML INJ 250 ML IV SCH (11:34)
[2016-10-22] MEDS: SODIUM CHLOR 0.9% 1000 ML INJ 1,000 ML IV SCH ×2 (11:37→20:12)
[2016-10-22 11:51] LABS: PLEURAL FLUID LYMPHS 79 %
[2016-10-22] MEDS ORDERED: MIDAZOLAM HCL 5 MG/ML VIAL (1 ML) IV ONE (15:00)
[2016-10-22] MEDS ORDERED: LIDOCAINE 1%/EPINEPHrine 1:100,000 SOLN 30 ML VIAL ONE (15:32)
--- NOTE | 2016-10-22 16:31 | PD.PROCEDR ---
Procedure Note Procedure Procedure DATE: 10/22/2016 Thoracostomy/chest tube placement: Left chest INDICATION: Left pleural effusion, not sufficient drainage with 10 F pigtail CONSENT Informed consent for procedure was obtained from . DESCRIPTION OF THE PROCEDURE A time out was performed. The patient was appropriately for chest tube placement. The left chest was prepped and draped in a sterile fashion. 1% lidocaine with epinephrine was used to anesthetize the surrounding skin area. A 1.5 cm skin incision was made in the midaxillary line at 5th ICS. Utilizing blunt dissection a subcutaneous tunnel was created cephalad just towards the superior rib. The pleural space entered bluntly and a small amount blood tinged fluid was observed. A finger was inserted into the pleural space to check for anatomy and guide chest tube insertion. A 20 Syriac thoracostomy tube was inserted guided over the trocar (after pulling in the trocar 3 cm inside the chest tube to avoid lung injury). Unable to advance chest tube beyond 15 cm. The chest tube was secured to the skin with 2.0 silk 2, Vaseline gauze was applied and a sterile dressing was applied. The Pleur-evac was attached to the chest tube and a chest x-ray as been ordered. ESTIMATED BLOOD LOSS: 3cc blood COMPLICATIONS: No apparent complications. STAT chest x-ray pending at time of dictation Valdez Miller MD Oct 22, 2016 16:20
--- NOTE | 2016-10-22 16:56 | RADRPT ---
EXAM DATE/TIME: 10/22/2016 16:21 [facility] COMPARISON: Prior study 10/22/16, use for comparison. INDICATIONS: Chest tube placement. MEDICAL HISTORY: Hypertension. SURGICAL HISTORY: None. ENCOUNTER: Initial ACUITY: 1 day PAIN SCORE: 0/10 LOCATION: Left chest FINDINGS: Since previous film patient has had a left-sided chest tube placed. There has been evacuation of lynette e of the left pleural effusion although substantial pleural effusion remains. There is more aerated left lung today than previous study. Right lung remains clear. Persistent shift from right to left of the mediastinum. Marked arthritis of both glenohumeral joints. CONCLUSION: Improvement in appearance of the left chest with placement of a larger chest tube with some reduction of the pleural effusion and better aeration of the left lung. Femi Vazquez MD on October 22, 2016 at 16:42 Board Certified Radiologist. This report was verified electronically.
[2016-10-22 19:18] LABS: APTT (PATIENT) 28.5 SEC (24.3-30.1); INTERNATIONAL NORMALIZED RATIO 1.1 RATIO; PROTHROMBIN TIME - PATIENT 11.7 SEC (9.8-11.6)
--- NOTE | 2016-10-22 19:37 | HHI.PR ---
Subjective Remarks 71 YOWM with COPD, Pl effusion.left lung mass, atelactesis Had Chest tube placed with some re expansion of left lung Feels comfortable on NC Objective Vital Signs Vital Signs Date Time Temp Pulse Resp B/P Pulse Ox O2 Delivery O2 Flow Rate FiO2 10/22/16 18:00 71 10/22/16 16:00 97.6 75 18 118/60 92 10/22/16 16:00 71 10/22/16 14:00 66 10/22/16 12:00 98.3 69 18 101/55 94 10/22/16 12:00 69 10/22/16 11:14 96 Nasal Cannula 1.00 10/22/16 10:00 69 10/22/16 08:00 68 10/22/16 08:00 98.2 68 20 176/85 95 10/22/16 06:00 67 10/22/16 04:00 98.9 71 24 154/76 92 10/22/16 04:00 71 10/22/16 02:00 68 10/22/16 00:00 70 10/21/16 23:47 98.6 69 20 163/72 95 10/21/16 23:00 78 20 138/77 99 10/21/16 21:45 Nasal Cannula 2 10/21/16 21:45 98 Nasal Cannula 2 10/21/16 21:30 79 20 140/79 98 Nasal Cannula 2 10/21/16 20:15 73 18 142/76 100 Nasal Cannula 2 I/O 10/21/16 10/21/16 10/21/16 10/22/16 10/22/16 10/22/16 07:00 15:00 23:00 07:00 15:00 23:00 Intake Total 350 ml 100 ml 704 ml 984 ml Output Total 200 ml 800 ml 1100 ml Balance 350 ml -100 ml -96 ml -116 ml Intake Oral 500 ml IV Total 350 ml 100 ml 704 ml 484 ml Output Urine Total 200 ml 800 ml 600 ml Chest Tube Drainage Total 500 ml Result Diagram: 10/22/1640310/22/16403 Objective Remarks GENERAL:WBWn WM , mild sob SKIN: Warm and dry. HEAD: Normocephalic. EYES: No scleral icterus. No injection or drainage. NECK: Supple, trachea midline. No JVD or lymphadenopathy. CARDIOVASCULAR: Regular rate and rhythm without murmurs, gallops, or rubs. RESPIRATORY: Breath sounds equal bilaterally. No accessory muscle use. Left chest tube draining Decreased BS left GASTROINTESTINAL: Abdomen soft, non-tender, nondistended. MUSCULOSKELETAL: No cyanosis, or edema. BACK: Nontender without obvious deformity. No CVA tenderness. A/P Assessment and Plan Left lung mAss Atelactesis Hemoptysis COPD Pl effusion, s/p chest tube PLAN: Chest tube to suction Cont abx Aerosol nebs Dw Pt Agrees for Bronch Bronch omaira for 4 PM Valeriy Dunn MD Oct 22, 2016 19:37
[2016-10-22] MEDS: CHLORHEXIDINE GLUCONATE 2 % 1 PACK (2 CLOTHS) TOP SCH (20:13)
[2016-10-23] VITALS (16 sets, daily range): BP systolic 97–164; BP diastolic 56–83; PULSE 61–80; RESP 16–26; TEMP 98–98.9; O2SAT 90–100
[2016-10-23] MEDS: RESP: ALBUTEROL 2.5 MG/IPRATROPIUM 0.5 MG NEB (SCH) INH ×5 (04:24→22:57)
[2016-10-23] MEDS: methylPREDNISolone SOD SUCC 125 MG/2 ML VIAL IV PUSH SCH ×4 (05:10→22:53)
[2016-10-23] MEDS: PIPERACIL-TAZO 4.5 GM PREMIX 100 ML IV SCH ×4 (05:11→22:53)
--- NOTE | 2016-10-23 07:28 | RADRPT ---
EXAM DATE/TIME: 10/23/2016 06:55 [facility] COMPARISON: CHEST SINGLE AP, October 22, 2016, 8:45. CHEST SINGLE AP, October 22, 2016, 7:39. CHEST SINGLE AP, October 22, 2016, 16:21. INDICATIONS : Respiratory distress. MEDICAL HISTORY : Hypertension. SURGICAL HISTORY : None. ENCOUNTER: Initial ACUITY: 1 day PAIN SCORE: 0/10 LOCATION: Bilateral chest FINDINGS: A single view of the chest demonstrates continued almost complete opacification of the left lung. A l eft chest tube has been introduced with some improvement in the size of the pleural effusion. The me diastinum remains shifted from right to left. The right lung remains clear The cardiomediastinal cont ours are unremarkable. Osseous structures are intact. CONCLUSION: Stable examination with near complete opacification left lung Femi Vazquez MD on October 23, 2016 at 7:26 Board Certified Radiologist. This report was verified electronically.
[2016-10-23] MEDS: PHENYTOIN SODIUM 100 MG CAP PO SCH ×2 (08:02→21:27)
[2016-10-23] MEDS: ATENOLOL 25 MG TAB PO SCH ×2 (08:02→21:00)
[2016-10-23] MEDS: DOCUSATE SODIUM 100 MG CAP PO SCH ×2 (08:03→21:26)
--- NOTE | 2016-10-23 08:36 | HHI.PR ---
Subjective Remarks resting comfortably with no distress. denies pain. no fever. d/w the RN and no acute issues over night. Objective Vitals Vital Signs Date Time Temp Pulse Resp B/P Pulse Ox O2 Delivery O2 Flow Rate FiO2 10/23/16 06:00 66 10/23/16 04:00 65 10/23/16 04:00 98.9 65 20 160/83 91 10/23/16 02:00 61 10/23/16 00:00 98.4 65 20 135/76 95 10/23/16 00:00 65 10/22/16 22:00 72 10/22/16 20:17 96 Nasal Cannula 2.00 10/22/16 20:00 98.3 75 20 150/76 90 10/22/16 20:00 75 10/22/16 18:00 71 10/22/16 16:00 97.6 75 18 118/60 92 10/22/16 16:00 71 10/22/16 14:00 66 10/22/16 12:00 98.3 69 18 101/55 94 10/22/16 12:00 69 10/22/16 11:14 96 Nasal Cannula 1.00 10/22/16 10:00 69 I/O 10/22/16 10/22/16 10/22/16 10/23/16 10/23/16 10/23/16 07:00 15:00 23:00 07:00 15:00 23:00 Intake Total 704 ml 984 ml 738 ml 595 ml Output Total 800 ml 1100 ml 603 ml 543 ml Balance -96 ml -116 ml 135 ml 52 ml Intake Oral 500 ml IV Total 704 ml 484 ml 738 ml 595 ml Output Urine Total 800 ml 600 ml 550 ml 500 ml Chest Tube Drainage Total 500 ml 53 ml 43 ml Result Diagram: 10/22/16 0404 10/22/16 0404 Imaging Last Impressions Chest X-Ray 10/23/16 0000 Signed Impressions: Service Date/Time: Sunday, October 23, 2016 06:55 - CONCLUSION: Stable examination with near complete opacification left lung Femi Vazquez MD CT Angiography 10/21/16 0820 Signed Impressions: Service Date/Time: Friday, October 21, 2016 09:13 - CONCLUSION: Complete opacification of the left lung with central line this abrupt narrowing and nodularity central lesion or mucous plug suggested with collapse of the left lung a large effusion. Negative for pulmonary. Jonathan Farrell MD Objective Remarks GENERAL: This is a well-nourished, well-developed patient, in no apparent distress. CARDIOVASCULAR: Regular rate and regular rhythm without murmurs, gallops, or rubs. RESPIRATORY: Clear to auscultation. Breath sounds equal bilaterally. No wheezes , rales, or rhonchi. chest tube in place. GASTROINTESTINAL: Abdomen soft, non-tender, nondistended. Normal, active bowel sounds MUSCULOSKELETAL: Extremities without clubbing, cyanosis, or edema. NEURO: Alert & Oriented x4 to person, place, time, situation. Moves all ext x4 Procedures chest tube placement Medications and IVs Current Medications IV Flush (NS Flush) 2 ml UNSCH PRN IVF FLUSH AFTER USING IV ACCESS Last administered on 10/21/16 08:41; Start 10/21/16 at 08:30; Stop 10/21/16 at 10:22 ; Status DC Methylprednisolone Sodium Succinate (SoluMEDROL INJ) 125 mg ONCE ONCE IVP Last administered on 10/21/16 08:40; Start 10/21/16 at 08:30; Stop 10/21/16 at 08:31; Status DC Albuterol/ Ipratropium (Duoneb Neb) 1 ampule Q15M INH Last administered on 10/21 08:33; Start 10/21/16 at 08:30; Stop 10/21/16 at 09:01; Status DC Iohexol 70 ml 70 ml STK-MED ONCE IV Last administered on 10/21/16 09:28; Start 10/21/16 at 09:28; Stop 10/21/16 at 09:29; Status DC Sodium Chloride (NS 1000 ml Inj) 1,000 ml @ 84 mls/hr [id number] IV Last administered on 10/22/16 20:12; Start 10/21/16 at 11:00 IV Flush (NS Flush) 2 ml UNSCH PRN IV FLUSH FLUSH AFTER USING IV ACCESS; Start 10/21/16 at 10:15; Stop 10/21/16 at 15:27; Status DC IV Flush (NS Flush) 2 ml BID IV FLUSH Last administered on 10/21/16 12:13; Start 10/21/16 at 21:00; Stop 10/21/16 at 21:00; Status DC Acetaminophen (Tylenol) 650 mg Q6H PRN PO PAIN 1-10 AND/OR FEVER >101F; Start 10/21/16 at 10:15 Pantoprazole Sodium (Protonix Inj) 40 mg DAILY IV Last administered on 09:22; Start 10/22/16 at 09:00 Docusate Sodium (Colace) 100 mg BID PO Last administered on 10/23/16 08:03; Start 10/21/16 at 21:00 Albuterol/ Ipratropium (Duoneb Neb) 1 ampule Q4HR NEB INH Last administered on 10/23/16 04:24; Start 10/21/16 at 12:00 Albuterol/ Ipratropium (Duoneb Neb) 1 ampule Q2HR NEB PRN INH WHEEZING; Start 10/21/16 at 10:15 Miscellaneous Information 1 [id number] XX ; Start 10/21/16 at 10:15 Chlorhexidine Gluconate (Chlorhexidine 2% Cloth) 3 pack Taper DAILY@04 TOP Last administered on 10/22/16 20:13; Start 10/22/16 at 04:00; Stop 10/18/17 at 03:59 Chlorhexidine Gluconate 3 pack 3 pack UNSCH PRN TOP HYGIENIC CARE; Start at 10:15 Potassium Chloride 100 ml @ 50 mls/hr Q2H PRN IV For Potassium 2.8 - 3.2 mEq/L ; Start 10/21/16 at 10:30 Potassium Chloride (KCl 20 Meq Premix Inj) 100 ml @ 50 mls/hr Q2H PRN IV For Potassium 2.8 - 3.2 mEq/L; Start 10/21/16 at 10:30 Potassium Chloride 40 meq 40 meq UNSCH PRN PO/TUBE For Potassium 3.3 - 3.5 mEq/ L; Start 10/21/16 at 10:30 Potassium Chloride 100 ml @ 25 mls/hr UNSCH PRN IV For Potassium 3.3 - 3.5 mEq /L; Start 10/21/16 at 10:30 Potassium Chloride 100 ml @ 50 mls/hr Q2H PRN IV For Potassium 3.3 - 3.5 mEq/L ; Start 10/21/16 at 10:30 Magnesium Sulfate/ Sodium Chloride (Magnesium Sulfate Inj/NS Inj) 100 ml @ 50 mls/hr UNSCH PRN IV For Magnesium 0.9 - 1.1 mg/dL; Start 10/21/16 at 10:30 Magnesium Oxide 800 mg 800 mg UNSCH PRN PO For Magnesium 1.2 - 1.6 mg/dL; Start 10/21/16 at 10:30 Magnesium Sulfate/ Sodium Chloride (Magnesium Sulfate Inj/NS Inj) 100 ml @ 50 mls/hr UNSCH PRN IV For Magnesium 1.2 - 1.6 mg/dL; Start 10/21/16 at 10:30 Potassium Phosphate 2000 mg 2,000 mg Q4H PRN PO For Phosphorus < 2.5 mg/dL; Start 10/21/16 at 10:30 Sodium Phosphate/ Sodium Chloride (Sodium Phosphate Inj/NS 250 ml Inj) 250 ml @ 42 mls/hr UNSCH PRN IV For Phosphorus < 2.5 mg/dL; Start 10/21/16 at 10:30 Potassium Chloride (KCl 40 Meq/30 ml Liq) 40 meq UNSCH PRN PO/TUBE SEE LABEL COMMENTS Last administered on 10/21/16 18:21; Start 10/21/16 at 10:30 Potassium Phosphate 2000 mg 2,000 mg UNSCH PRN PO/TUBE SEE LABEL COMMENTS Last administered on 10/21/16 18:21; Start 10/21/16 at 10:30 Potassium Phosphate/Sodium Chloride (Potassium Phosphate Inj/NS 250 ml Inj) 260 ml @ 42 mls/hr UNSCH PRN IV SEE LABEL COMMENTS; Start 10/21/16 at 10:30 Methylprednisolone Sodium Succinate (SoluMEDROL INJ) 60 mg Q6H IV PUSH Last administered on 10/23/16 05:10; Start 10/21/16 at 17:00 Methylprednisolone Sodium Succinate 100 mg 100 mg ONCE ONCE IV PUSH Last administered on 10/21/16 10:52; Start 10/21/16 at 10:30; Stop 10/21/16 at 10:41 ; Status DC Piperacillin Sod/ Tazobactam Sod 100 ml @ 200 mls/hr Q6HR IV Last administered on 10/23/16 05:11; Start 10/21/16 at 12:00 Azithromycin/ Sodium Chloride (Zithromax Inj/ NS 250 ml Inj) 250 ml @ 250 mls/ hr Q24H IV Last administered on 10/22/16 11:34; Start 10/21/16 at 11:00 IV Flush (NS Flush) 2 ml UNSCH PRN IVF FLUSH AFTER USING IV ACCESS Last administered on 10/21/16 17:37; Start 10/21/16 at 15:15 IV Flush (NS Flush) 2 ml BID IVF ; Start 10/21/16 at 21:00 Atenolol (Tenormin) 25 mg BID PO Last administered on 10/23/16 08:02; Start at 21:00 Phenytoin (Dilantin) 300 mg BID PO Last administered on 10/23/16 08:02; Start 10/21/16 at 21:00 Morphine Sulfate (Morphine Inj) 1 mg NOW ONCE IV PUSH Last administered on 09:22; Start 10/22/16 at 08:30; Stop 10/22/16 at 08:31; Status DC Midazolam HCl (Versed Inj) 5 mg ONCE ONCE IV Last administered on 10/22/16 16 :36; Start 10/22/16 at 15:00; Stop 10/22/16 at 15:01; Status DC Morphine Sulfate (Morphine Inj) 5 mg ONCE ONCE IV PUSH Last administered on 16:37; Start 10/22/16 at 15:00; Stop 10/22/16 at 15:01; Status DC Lidocaine/ Epinephrine (Xylocaine-Epi 1%-1:100,000 Inj) 30 ml STK-MED ONCE .ROUTE Last administered on 10/22/16 16:37; Start 10/22/16 at 15:32; Stop at 15:33; Status DC A/P Assessment and Plan A/P - pleural effusion s/p chest tube placement- fluid pathology pending on steroid , antibiotics and neb treatment for bronchoscopy later today- pulmonary following- -hypertension; on atenolol -seizure disorder; continue dilantin -DVT prophylaxis; SCD's transfer to telemetry when ok with pulmonary. d/w the Regina Reich MD Oct 23, 2016 08:36
[2016-10-23] MEDS: SODIUM CHLORIDE 0.9% FLUSH 5 ML FLUSH IVF SCH ×2 (09:00→21:00)
[2016-10-23] MEDS: PANTOPRAZOLE SODIUM 40 MG VIAL IV SCH (09:00)
[2016-10-23] MEDS: SODIUM CHLOR 0.9% 1000 ML INJ 1,000 ML IV SCH ×2 (10:40→20:00)
[2016-10-23] MEDS: AZITHROMYCIN INJ 500 MG in SODIUM CHLOR 0.9% 250 ML INJ 250 ML IV SCH (11:00)
--- NOTE | 2016-10-23 11:06 | RADHPO ---
EXAM DATE/TIME: 10/21/2016 09:25 [facility] COMPARISON: CT PULMONARY ANGIOGRAM, October 21, 2016, 9:13. INDICATIONS : Short of Breath MEDICAL HISTORY : Hypertension. SURGICAL HISTORY : None. ENCOUNTER: Initial ACUITY: 3 days PAIN SCORE: 0/10 LOCATION: Bilateral chest FINDINGS: There is complete opacification of the left hemithorax. CT scan had suggested a bronchial lesion wit h combination of collapse and consolidation. Thoracentesis would be of benefit. Patchy air space disease is noted on the right. Heart and pulmonary vascularity are normal. CONCLUSION: Complete opacification of the left hemithorax. Thoracentesis is suggested. Khoi Shelton MD FACR on October 21, 2016 at 9:44 Board Certified Radiologist. This report was verified electronically.
--- NOTE | 2016-10-23 18:39 | RADRPT ---
EXAM DATE/TIME: 10/23/2016 18:01 [facility] COMPARISON: CHEST SINGLE AP, October 23, 2016, 6:55. INDICATIONS : Pneumothorax. MEDICAL HISTORY : Hypertension. SURGICAL HISTORY : None. ENCOUNTER: Subsequent ACUITY: 3 days PAIN SCORE: 0/10 LOCATION: Bilateral chest FINDINGS: A single view of the chest demonstrates diffuse left lung density, similar from previous study. Right lung is clear and hyperexpanded. The cardiomediastinal contours are unremarkable. Osseous structure s are intact. CONCLUSION: Almost complete opacification left lung, stable. Chalo Hamlni MD on October 23, 2016 at 18:35 Board Certified Radiologist. This report was verified electronically.
[2016-10-23] MEDS ORDERED: EPINEPHrine HCL (1:1000) 1 MG/ML VIAL ONE (18:45)
[2016-10-23] MEDS ORDERED: SODIUM CHLORIDE 0.9% 20 ML VIAL ONE (18:45)
[2016-10-23] MEDS ORDERED: LIDOCAINE HCL 2% 50 ML VIAL ONE (18:45)
[2016-10-23] MEDS ORDERED: ETOMIDATE 40 MG/20 ML VIAL ONE (18:46)
[2016-10-23] MEDS ORDERED: ETOMIDATE 40 MG/20 ML VIAL IV PUSH ONE ×2 (18:50→19:15)
[2016-10-23] MEDS ORDERED: PROPOFOL 1000 MG/100 ML INJ 100 ML ONE (18:58)
--- NOTE | 2016-10-23 19:04 | PD.PROCEDR ---
Procedure Note Procedure DATE: 10/23/16 PROCEDURE: Orotracheal intubation INDICATION: Hemoptysis DETAILS OF PROCEDURE The patient was placed in optimal position and preoxygenated with 100% FiO2 via bag valve mask. At the start oxygen saturation was 95%. The patient was administered 40 milligrams etomidate IV. I entered the oropharynx with a size 4 glide scope Blade and obtained a grade 2 view of the airway. On single attempt a size 8.0 cuffed endotracheal tube was passed through the vocal cords. Correct tube location was confirmed with end tidal CO2 detector and by auscultating over bilateral lung loyola. The endotracheal tube was secured with adhesive tape at a depth of 24 cm at the lips. The patient was connected to the ventilator. The patient tolerated the procedure well without any apparent complications. Oxygen saturations were maintained greater than 95% all times. STAT chest x-ray pending at time of dictation. Gallito Rogers MD Oct 23, 2016 19:04
--- NOTE | 2016-10-23 19:09 | HHI.PR ---
Subjective Remarks 71 YOWM with COPD, Pl effusion.left lung mass, atelactesis Had Chest tube placed with some re expansion of left lung Was omaira for bronch today Pt started having large hemoptysis Emergentaly intubated On AC, 100% Objective Vital Signs Vital Signs Date Time Temp Pulse Resp B/P Pulse Ox O2 Delivery O2 Flow Rate FiO2 10/23/16 18:00 66 10/23/16 16:00 66 10/23/16 16:00 98.0 80 26 164/80 90 10/23/16 14:00 66 10/23/16 12:00 98.0 63 20 164/76 90 10/23/16 12:00 66 10/23/16 08:35 96 Nasal Cannula 2.00 10/23/16 08:00 98.3 75 20 150/76 90 10/23/16 06:00 66 10/23/16 04:00 65 10/23/16 04:00 98.9 65 20 160/83 91 10/23/16 02:00 61 10/23/16 00:00 98.4 65 20 135/76 95 10/23/16 00:00 65 10/22/16 22:00 72 10/22/16 20:17 96 Nasal Cannula 2.00 10/22/16 20:00 98.3 75 20 150/76 90 10/22/16 20:00 75 I/O 10/22/16 10/22/16 10/22/16 10/23/16 10/23/16 10/23/16 07:00 15:00 23:00 07:00 15:00 23:00 Intake Total 704 ml 984 ml 738 ml 595 ml 585 ml Output Total 800 ml 1100 ml 603 ml 543 ml 590 ml Balance -96 ml -116 ml 135 ml 52 ml -5 ml Intake Oral 500 ml IV Total 704 ml 484 ml 738 ml 595 ml 585 ml Output Urine Total 800 ml 600 ml 550 ml 500 ml 550 ml Chest Tube Drainage Total 500 ml 53 ml 43 ml 40 ml Result Diagram: 10/22/1640310/22/16403 Objective Remarks GENERAL:WBWn WM , mild sob SKIN: Warm and dry. HEAD: Normocephalic. EYES: No scleral icterus. No injection or drainage. NECK: Supple, trachea midline. No JVD or lymphadenopathy. CARDIOVASCULAR: Regular rate and rhythm without murmurs, gallops, or rubs. RESPIRATORY: Breath sounds equal bilaterally. No accessory muscle use. Left chest tube draining Decreased BS left GASTROINTESTINAL: Abdomen soft, non-tender, nondistended. MUSCULOSKELETAL: No cyanosis, or edema. BACK: Nontender without obvious deformity. No CVA tenderness. A/P Assessment and Plan Left lung mass Atelactesis LargeHemoptysis COPD Pl effusion, s/p chest tube VDRF PLAN: Vent Support Sedation with fenatnyl and Diprivan racemic epi Nebs Will Proceed with Emergent Bronch Chest tube to suction Cont abx DW Dr.Bigga Wilkins,Valeriy Larios MD Oct 23, 2016 19:09
--- NOTE | 2016-10-23 19:10 | HHI.CCPN ---
Subjective Remarks/Hospital Course 71-year-old male comes in complaining of cough and shortness of breath. He says for the past 2 days he has been coughing up blood. He occasionally passes clots, but often is just streaks in his mucus. He denies any chest pain, but says he is very short of breath when walking. He says he had an episode earlier in the month and he tried to come to the emergency department, but was frustrated with the wait and left. He says it went away, but has come back. He has smoked cigarettes, but quit several years ago. He does say that he currently smokes a pipe. He denies any fever or chills. He is not on any blood thinners, and this has never happened to him before. CT angio revealed Complete opacification of the left lung with central line this abrupt narrowing and nodularity central lesion or mucous plug suggested with collapse of the left lung a large effusion. Subjective 10/23: Called to see patient secondary to hemoptysis. Received 3 racemic epinephrine but continued to have hemoptysis. Emergently intubated using 40 mg etomidate with an 8.0 ET tube with glide scope. Dr. Wilkins at bedside to perform bronchoscopy currently. Objective Vital Signs Date Time Temp Pulse Resp B/P Pulse Ox O2 Delivery O2 Flow Rate FiO2 10/23/16 18:00 66 10/23/16 16:00 98.0 26 164/80 90 10/23/16 08:35 Nasal Cannula 2.00 Intake and Output 10/22/16 10/22/16 10/23/16 08:00 16:00 00:00 Intake Total 704 ml 984 ml 738 ml Output Total 800 ml 1100 ml 603 ml Balance -96 ml -116 ml 135 ml Result Diagram: 10/22/16 0404 10/22/16 0404 Other Results Microbiology Date/Time Procedure Status Source Growth 10/22/16 10:00 Gram Stain - Final Resulted Fluid Pleural Fluid 10/22/16 10:00 Body Fluid Culture - Preliminary Resulted Fluid Pleural Fluid NO GROWTH IN 24 HOURS. 10/22/16 10:00 Fungal Smear - Final Resulted Fluid Pleural Fluid NO FUNGAL ELEMENTS SEEN. 10/22/16 10:00 Fungal Culture Resulted Fluid Pleural Fluid Pending 10/22/16 10:00 Acid Fast Stain - Final Resulted Fluid Pleural Fluid NO ACID FAST BACILLI SEEN 10/22/16 10:00 Mycobacterial Culture Resulted Fluid Pleural Fluid Pending Imaging Last Impressions Chest X-Ray 10/23/16 0000 Signed Impressions: Service Date/Time: Sunday, October 23, 2016 18:01 - CONCLUSION: Almost complete opacification left lung, stable. Chalo Hamlin MD CT Angiography 10/21/16 0820 Signed Impressions: Service Date/Time: Friday, October 21, 2016 09:13 - CONCLUSION: Complete opacification of the left lung with central line this abrupt narrowing and nodularity central lesion or mucous plug suggested with collapse of the left lung a large effusion. Negative for pulmonary. Jonathan Farrell MD Objective Remarks GENERAL: 71-year-old male, coughing up blood SKIN: Warm and dry. No rash HEAD: Normocephalic. EYES: No scleral icterus. No injection or drainage. NECK: Supple, trachea midline. No JVD or lymphadenopathy. CARDIOVASCULAR: Regular rate and rhythm without murmurs, gallops, or rubs. RESPIRATORY: Absent breath sounds left side. Coarse crackles appreciated right lobe. GASTROINTESTINAL: Abdomen soft, non-tender, nondistended. MUSCULOSKELETAL: Without significant peripheral BACK: Nontender without obvious deformity. No CVA tenderness. Procedures chest tube placement A/P Problem List: (1) Pleural effusion ICD Code: J90 Status: Acute (2) Hypoxia ICD Code: R09.02 Status: Acute (3) Bronchiolar obstruction ICD Code: J98.09 Status: Acute Assessment and Plan Neuro/Psych: History of seizures Currently on propofol/fentanyl drips for sedation/analgesia while intubated Goal RASS -2 Daily sedation vacation Seizure precautions On Dilantin 300 twice a day. Check Dilantin level in a.m. CV: Sinus tachycardia History of hypertension History dyslipidemia Currently on atenolol 25 mg by mouth twice a day. On normal saline at 84 cc an hour. Holding simvastatin. Resp: Acute respiratory failure Hemoptysis Large left pleural effusion status post chest tube Bronchiolar obstruction ACV ventilation. 12/500/5/100 Ventilator bundle Bronchodilator therapy every 6 hours and as needed Chest tube - 20 Mauritanian - -40 cm H2O - -596 blood Follow-up ABG/chest x-ray post intubation Emergent bronchoscopy for hemoptysis by Dr. Wilkins/pulmonology now CTA chest revealed left pleural effusion/likely bronchial obstruction secondary to mass/tumor GI: Hypoalbuminemia Patient is currently nothing by mouth OG tube replaced Protonix for GI prophylaxis Colace/as needed Senokot for bowel regimen : BPH Lipscomb will be placed for accurate I's and O's in a critically ill patient On Terazosin at home. Currently on hold Endo: Sliding-scale insulin if indicated Renal: Creatinine currently within normal limits. Monitor urine output. Accurate I's and O's Heme: Leukocytosis Normocytic anemia CBC/coags pending ID: Klebsiella pneumonia Currently #3 Zosyn/Zithromax. Pansensitive. Pertinent cultures Sputum - Klebsiella pneumonia Blood cultures 2 - no growth FEN: Replacing lites lites as clinically indicated MSK: PT evaluate and treat Access - Utilize peripheral IV. Central line if indicated Prophylaxis - GI - Protonix - DVT- SCD/pharmacological prophylaxis contraindicated with hemoptysis Critical Care: The total critical care time was 55 minutes. Time to perform other separately billable procedures was not included in the critical care time. Dr. Wilkins currently bedside. Dr. Ryan updated on patient's condition and will follow [facility]. Pleural effusion - probably malignant - thoracentesis by IR - fluid analysis - f/u cytology HTN - Atenolol Seizure - Dilantin Pulmonary mas with obstruction - per Senior Java Programmer Analyst DVT/GI prophylaxis - Lovenox after thoracentesis/ Reg. Diet Level 3 Gallito Rogers MD Oct 23, 2016 19:10
[2016-10-23] MEDS ORDERED: SODIUM BICARBONATE 8.4% INJ 50 ML ONE (19:14)
--- NOTE | 2016-10-23 19:59 | RADRPT ---
EXAM DATE/TIME: 10/23/2016 19:32 [facility] COMPARISON: CHEST SINGLE AP, October 23, 2016, 18:01. INDICATIONS : Post intubation MEDICAL HISTORY : Hypertension. SURGICAL HISTORY : None. ENCOUNTER: Initial ACUITY: 1 day PAIN SCORE: 0/10 LOCATION: Bilateral chest FINDINGS: A single view of the chest demonstrates complete opacification left hemithorax. Endotracheal tube 4 c m above the aisha. The cardiomediastinal contours are unremarkable. Osseous structures are intact. CONCLUSION: Echo placement of endotracheal tube. Complete opacification left hemithorax Chalo Hamlin MD on October 23, 2016 at 19:57 Board Certified Radiologist. This report was verified electronically.
--- NOTE | 2016-10-23 20:05 | MR ---
cc: ANJALI YORK DATE: 10/23/2016 PROCEDURE Emergent bronchoscopy PREOPERATIVE DIAGNOSIS Hemoptysis. POSTOPERATIVE DIAGNOSIS Obstructing mass and clot in the left lung. Because this was done as an emergency, consent could not be obtained. PROCEDURE: The patient was emergently intubated. He was sedated with Diprivan and fentanyl. Bronchoscopy was done through the endotracheal tube. A lot of blood was removed from the trachea. It was suctioned out. After suctioning the airway was clean and there was blood coming from the left lung. After repeated suctioning, lavage, and epinephrine used, bleeding was controlled. There was a mass obstructing the left lung and there was a big clot in there. The bronchoscope was advanced to the right lung. Blood was suctioned from the right lung. No active bleeding in the right lung. The right upper, middle, lower lobe was seen. No endobronchial lesion was seen. After repeat lavage with epinephrine, bleeding stopped. No active bleeding at the end of the procedure. Bronchial washing was sent for routine culture, AFB, fungal culture and cytology. The patient will need a bronchoscopy with biopsy when he is more stable. MD ZACHARY Perez/SARA /7:35 PM /7:45 PM
[2016-10-23 20:27] LABS: BLOOD GAS CARBOXYHEMOGLOBIN 1.4 % (0-4); BLOOD GAS HCO3 26 mmol/L (22-26); BLOOD GAS METHEMOGLOBIN 1.1 % (0-2); BLOOD GAS O2 HGB SATURATION 97 % (90-100); BLOOD GAS OXYGEN CONTENT 14.5 Vol % (12.0-20.0); BLOOD GAS PCO2 53 mmHg (38-42); BLOOD GAS PO2 365 mmHg (61-120); BLOOD GAS TOTAL HGB 9.9 G/DL (12.0-16.0); TEMP CORR TO 98.6
[2016-10-23 20:34] LABS: DRAW SITE LT RADIAL; FIO2 100 %; NUMBER OF ARTERIAL PUNCTURES 1; OXYGEN DEVICE VENTILATOR; STAT NO; ULNAR PULSE PRESENT
[2016-10-23 21:21] LABS: VENT SETTINGS AC 16/500/PEEP5
[2016-10-23 21:23] LABS: AUTOMATED NEUTROPHIL # 11.8 TH/MM3 (1.8-7.7); BASOPHIL # 0.1 TH/MM3 (0-0.2); EOSINOPHIL # 0.1 TH/MM3 (0-0.4); EOSINOPHIL % 0.6 % (0.0-4.0); HEMATOCRIT 31.3 % (39.0-51.0); HEMO FLAGS DIFF FINAL; LYMPH % 9.4 % (9.0-44.0); LYMPHOCYTE # 1.4 TH/MM3 (1.0-4.8); MEAN CELL VOLUME 87.3 FL (80.0-100.0); MEAN CORPUSCULAR HEMOGLOBIN 28.8 PG (27.0-34.0); MONO % 7.9 % (0.0-8.0); NEUT % 81.1 % (16.0-70.0); PLATELET COUNT 378 TH/MM3 (150-450); RED BLOOD COUNT 3.59 MIL/MM3 (4.50-5.90); WHITE BLOOD COUNT 14.5 TH/MM3 (4.0-11.0)
[2016-10-23] MEDS: CHLORHEXIDINE 0.12% (ORAL KIT) 15 ML CUP MT SCH (21:26)
[2016-10-23] MEDS: PROPOFOL 1000 MG/100 ML INJ 100 ML IV SCH (21:26)
[2016-10-23 21:30] LABS: ANION GAP 6 MEQ/L (5-15); AST (GOT) 20 U/L (15-37); BLOOD UREA NITROGEN 19 MG/DL (7-18); CHLORIDE 105 MEQ/L (98-107); GLOMERULAR FILTRATION RATE 60 ML/MIN (>89); MAGNESIUM 2.1 MG/DL (1.5-2.5); POTASSIUM 3.7 MEQ/L (3.5-5.1); SODIUM (NA) 141 MEQ/L (136-145)
[2016-10-23 21:59] LABS: ALKALINE PHOSPHATASE 63 U/L (45-117); ALT (GPT) 21 U/L (12-78); TOTAL BILIRUBIN ADULT 0.5 MG/DL (0.2-1.0)
[2016-10-23] MEDS: fentaNYL DRIP 250 ML IV SCH (22:22)
[2016-10-23 22:42] LABS: APTT (PATIENT) 25.7 SEC (24.3-30.1); PROTHROMBIN TIME - PATIENT 11.3 SEC (9.8-11.6)
[2016-10-24] VITALS (22 sets, daily range): BP systolic 100–124; BP diastolic 57–70; PULSE 54–60; RESP 16–18; TEMP 97.9–98.9; O2SAT 93–100
[2016-10-24] MEDS: PROPOFOL 1000 MG/100 ML INJ 100 ML IV SCH ×3 (01:09→20:05)
[2016-10-24] MEDS: RESP: ALBUTEROL 2.5 MG/IPRATROPIUM 0.5 MG NEB (SCH) INH ×6 (01:12→20:07)
[2016-10-24 03:08] LABS: CRITICAL VALUE YES
[2016-10-24] MEDS: CHLORHEXIDINE GLUCONATE 2 % 1 PACK (2 CLOTHS) TOP SCH (03:30)
[2016-10-24] MEDS: fentaNYL DRIP 250 ML IV SCH ×3 (03:31→22:15)
[2016-10-24] MEDS: PIPERACIL-TAZO 4.5 GM PREMIX 100 ML IV SCH ×4 (05:37→22:15)
[2016-10-24] MEDS: methylPREDNISolone SOD SUCC 125 MG/2 ML VIAL IV PUSH SCH ×4 (05:37→22:15)
--- NOTE | 2016-10-24 05:47 | RADRPT ---
EXAM DATE/TIME: 10/24/2016 04:11 [facility] COMPARISON: CHEST SINGLE AP, October 23, 2016, 19:32. INDICATIONS : Shortness of breath, possible pulmonary disease. MEDICAL HISTORY : Hypertension. SURGICAL HISTORY : None. ENCOUNTER: Subsequent ACUITY: 4 - 6 days PAIN SCORE: Non-responsive. LOCATION: Bilateral chest FINDINGS: Near-complete opacification again seen of the left hemithorax. On the right, there is modest worsenin g of basilar atelectasis. I don't see a pneumothorax on either side. Endotracheal tube tip is about 3 cm above the aisha. There is a nasogastric tube with tip in the upp er stomach, sidehole near the GE junction. The nasogastric tube is new. CONCLUSION: 1. No significant change pleural fluid and near complete parenchymal consolidation on the left. 2. Modest worsening right base atelectasis, mild. 3. Nasogastric tube with tip in the upper stomach has been placed. 4. Endotracheal tube tip about 3 cm above the aisha.. Paul Sinha MD on October 24, 2016 at 5:44 Board Certified Radiologist. This report was verified electronically.
[2016-10-24 06:11] LABS: AUTOMATED NEUTROPHIL # 4.8 TH/MM3 (1.8-7.7); BASOPHIL # 0.1 TH/MM3 (0-0.2); BASOPHIL % 1.3 % (0.0-2.0); EOSINOPHIL # 0.4 TH/MM3 (0-0.4); EOSINOPHIL % 4.3 % (0.0-4.0); HEMATOCRIT 28.1 % (39.0-51.0); HEMO FLAGS DIFF FINAL; LYMPH % 26.3 % (9.0-44.0); LYMPHOCYTE # 2.2 TH/MM3 (1.0-4.8); MEAN CORPUSCULAR HEMOGLOBIN 29.6 PG (27.0-34.0); MEAN CORPUSCULAR HGB CONC 33.7 % (32.0-36.0); MONO % 10.9 % (0.0-8.0); NEUT % 57.2 % (16.0-70.0); PLATELET COUNT 306 TH/MM3 (150-450); RED CELL DISTRIBUTION WIDTH 14.2 % (11.6-17.2); WHITE BLOOD COUNT 8.3 TH/MM3 (4.0-11.0)
[2016-10-24 06:44] LABS: BICARBONATE 28.8 MEQ/L (21.0-32.0); CALCIUM-PROTEIN CORRECTED 8.4 MG/DL (8.5-10.1); POTASSIUM 3.7 MEQ/L (3.5-5.1); TOTAL BILIRUBIN ADULT 0.3 MG/DL (0.2-1.0)
[2016-10-24] MEDS: SODIUM CHLOR 0.9% 1000 ML INJ 1,000 ML IV SCH ×2 (07:55→19:50)
[2016-10-24] MEDS: CHLORHEXIDINE 0.12% (ORAL KIT) 15 ML CUP MT SCH ×2 (08:00→20:05)
[2016-10-24] MEDS ORDERED: IOHEXOL 350 MG/ML 10 ML VIAL (for RAD DIAG) IV ONE (08:49)
[2016-10-24] MEDS: DOCUSATE SODIUM 100 MG CAP PO SCH ×2 (09:00→20:04)
[2016-10-24] MEDS: PHENYTOIN SODIUM 100 MG CAP PO SCH ×2 (09:16→20:04)
[2016-10-24] MEDS: ATENOLOL 25 MG TAB PO SCH ×2 (09:16→20:04)
[2016-10-24] MEDS: AZITHROMYCIN INJ 500 MG in SODIUM CHLOR 0.9% 250 ML INJ 250 ML IV SCH (09:16)
[2016-10-24] MEDS: PANTOPRAZOLE SODIUM 40 MG VIAL IV SCH (09:16)
[2016-10-24] MEDS: SODIUM CHLORIDE 0.9% FLUSH 5 ML FLUSH IVF SCH ×2 (09:17→20:05)
--- NOTE | 2016-10-24 09:38 | RADRPT ---
EXAM DATE/TIME: 10/24/2016 08:40 [facility] COMPARISON: CT PULMONARY ANGIOGRAM, October 21, 2016, 9:13. INDICATIONS : Evaluate chest tube placement IV CONTRAST: 75 cc Omnipaque 350 (iohexol) IV RADIATION DOSE: 6.63 CTDIvol (mGy) MEDICAL HISTORY : Cardiovascular disease. Hypertension. SURGICAL HISTORY : None. ENCOUNTER: Initial ACUITY: 1 day PAIN SCALE: Non-responsive LOCATION: Bilateral chest TECHNIQUE: Volumetric scanning of the chest was performed. Using automated exposure control and adjustment of t he mA and/or kV according to patient size, radiation dose was kept as low as reasonably achievable to obtain optimal diagnostic quality images. FINDINGS: LUNGS: Left lung collapse/diffuse parenchymal consolidation is again seen. There is abrupt cut off of the le ft mainstem bronchus distally. This appearance is grossly unchanged from the prior study of 10/21/2016 . Endotracheal tube is in place with the tip several centimeters above the aisha. Patchy groundglass opacity in the anterior right upper lung similar to prior study. New patchy posterior right upper renzo ng groundglass opacity. Slight increase in posterior right mid to lower lung opacity. PLEURA: Left-sided chest tube is now in place. Slight decrease in size of left pleural effusion. Pleural spac e air-fluid level is now seen at the level of the upper lung zone. Pleural fluid lateral to the long measures 2 cm in medial to lateral dimension laterally at the mid thorax. Fluid is seen surrounding t he long from the level of the apex to the diaphragm. No defined septations or loculations identified. Linear pleural calcifications are again seen posteriorly at the right lung base. No right pleural ef fusion identified. MEDIASTINUM: Diffusely fluid-filled and mildly dilated esophagus. Nasogastric tube in place with the tip in the st omach. No enlarged lymph nodes identified. Coronary artery calcifications are noted. AXILLAE: Within normal limits. No lymphadenopathy. SKELETAL: Within normal limits for patient age. MISCELLANEOUS: Oval hypodensity in the central liver unchanged. Upper abdomen otherwise within normal limits. CONCLUSION: 1. Left lung collapse/consolidation similar to the prior study with cut off at the distal left mainst em bronchus again suggesting either mucus plugging or endobronchial mass. 2. Left pleural effusion slightly decreased. Hydropneumothorax now noted with new left sided pleural air-fluid level. No discrete septations or loculations identified. 3. Increase in patchy right lung atelectasis versus mild consolidation. 4. Diffusely mildly dilated fluid-filled esophagus. Jose Cloud MD on October 24, 2016 at 9:19 Board Certified Radiologist. This report was verified electronically.
--- NOTE | 2016-10-24 10:16 | HHI.CCPN ---
Subjective Remarks/Hospital Course 71-year-old male comes in complaining of cough and shortness of breath. He says for the past 2 days he has been coughing up blood. He occasionally passes clots, but often is just streaks in his mucus. He denies any chest pain, but says he is very short of breath when walking. He says he had an episode earlier in the month and he tried to come to the emergency department, but was frustrated with the wait and left. He says it went away, but has come back. He has smoked cigarettes, but quit several years ago. He does say that he currently smokes a pipe. He denies any fever or chills. He is not on any blood thinners, and this has never happened to him before. CT angio revealed Complete opacification of the left lung with central line this abrupt narrowing and nodularity central lesion or mucous plug suggested with collapse of the left lung a large effusion. Subjective 10/23: Called to see patient secondary to hemoptysis. Received 3 racemic epinephrine but continued to have hemoptysis. Emergently intubated using 40 mg etomidate with an 8.0 ET tube with glide scope. Dr. Wilkins at bedside to perform bronchoscopy currently. 10/24: Emergently intubated yesterday due to significant hemoptysis. Dr. You performed bronchoscopy at the bedside- lot of blood was removed from the trachea , which was suctioned out After repeated suctioning, lavage, and epinephrine used, bleeding was controlled. There was a mass obstructing the left lung and a large clot. A CT chest done today was discussed with Dr. Perry, left lung opacification is predominantly atelectatic lung, unless on fluid. Small apical pneumothorax, chest tube in good position. Dr. Wilkins planning for repeat bronchoscopy and biopsy today at 4 PM, with possible biopsy Objective Vital Signs Date Time Temp Pulse Resp B/P Pulse Ox O2 Delivery O2 Flow Rate FiO2 10/24/16 09:00 100 100 10/24/16 06:00 60 10/24/16 04:00 98.9 16 107/64 10/23/16 08:35 Nasal Cannula 2.00 Intake and Output 10/23/16 10/23/16 10/24/16 08:00 16:00 00:00 Intake Total 595 ml 585 ml 250 ml Output Total 543 ml 590 ml 275 ml Balance 52 ml -5 ml -25 ml Result Diagram: 10/24/16 0543 10/24/16 0543 Other Results Microbiology Date/Time Procedure Status Source Growth 10/21/16 12:55 Gram Stain - Final Complete Sputum Endotracheal 10/21/16 12:55 Sputum Culture - Final Complete Klebsiella Pneumoniae 10/23/16 21:00 Stool Occult Blood ([place]) - Final Complete Stool Stool HEMOCCULT POSITIVE Laboratory Tests Test 10/23/16 20:14 Blood Gas Puncture Site LT RADIAL Blood Gas Patient Temperature 98.6 Blood Gas HCO3 26 mmol/L (22-26) Blood Gas Base Excess 1.0 mmol/L (-2-2) Blood Gas Oxygen Saturation 97 % (90-100) Arterial Blood pH 7.32 (7.380-7.420) Arterial Blood Partial 53 mmHg (38-42) Pressure CO2 Arterial Blood Partial 365 mmHg Pressure O2 (61-120) Arterial Blood Oxygen Content 14.5 Vol % (12.0-20.0) Arterial Blood 1.4 % (0-4) Carboxyhemoglobin Arterial Blood Methemoglobin 1.1 % (0-2) Blood Gas Hemoglobin 9.9 G/DL (12.0-16.0) Oxygen Delivery Device VENTILATOR Blood Gas Ventilator Setting AC 16/500/PEEP5 Blood Gas Inspired Oxygen 100 % Imaging Last Impressions Chest X-Ray 10/23/16 0000 Signed Impressions: Service Date/Time: Sunday, October 23, 2016 18:01 - CONCLUSION: Almost complete opacification left lung, stable. Chalo Hamlin MD CT Angiography 10/21/16 0820 Signed Impressions: Service Date/Time: Friday, October 21, 2016 09:13 - CONCLUSION: Complete opacification of the left lung with central line this abrupt narrowing and nodularity central lesion or mucous plug suggested with collapse of the left lung a large effusion. Negative for pulmonary. Jonathan Farrell MD Objective Remarks GENERAL/NEURO: 71-year-old male, intubated sedated. Moves all extremities on sedation hold SKIN: Warm and dry. No rash HEAD: Normocephalic. EYES: No scleral icterus. No injection or drainage. ENT: Orotracheally intubated, no bloody secretions NECK: Supple, trachea midline. No JVD or lymphadenopathy. CARDIOVASCULAR: Regular rate and rhythm without murmurs, gallops, or rubs. RESPIRATORY: Absent breath sounds left side. Coarse crackles appreciated right lobe. No significant blood from ETT GASTROINTESTINAL: Abdomen soft, non-tender, nondistended. MUSCULOSKELETAL: Without significant peripheral BACK: Nontender without obvious deformity. No CVA tenderness. Procedures chest tube placement Urinary Catheter: Yes Assessment to: Continue A/P Problem List: (1) Acute respiratory failure ICD Code: J96.00 Status: Acute (2) Pleural effusion ICD Code: J90 Status: Acute (3) Hypoxia ICD Code: R09.02 Status: Acute (4) Bronchiolar obstruction ICD Code: J98.09 Status: Acute (5) Mass of left lung ICD Code: R91.8 Status: Acute (6) Hemoptysis ICD Code: R04.2 Status: Acute Assessment and Plan Neuro/Psych: History of seizures Currently on propofol/fentanyl drips for sedation/analgesia while intubated Goal RASS -2. Daily sedation vacation Seizure precautions On Dilantin 300 twice a day. Dilantin level 8.8 CV: Sinus tachycardia History of hypertension History dyslipidemia Currently on atenolol 25 mg by mouth twice a day. On normal saline at 84 cc an hour. Holding simvastatin. Resp: Acute respiratory failure Hemoptysis Left pleural effusion, small pneumothorax status post chest tube L main bronchus from obstruction from probable lung CA ACV ventilation. 12/500/5/100. Ventilator bundle Bronchodilator therapy every 6 hours and as needed Chest tube - 20 [place]ian - -[address] of the chest today 10/24/16 shows that the opacification is predominantly collapsed lung, effusion is small to moderate with loculation, very small apical pneumothorax Follow-up ABG/chest x-ray post intubation Emergent bronchoscopy for hemoptysis by Dr. Wilkins/pulmonology now, repeat bronchoscopy and biopsy today We'll discuss with Dr. Wilkins regarding bronchial stent, may need transfer/CTS evaluation GI: Hypoalbuminemia Patient is currently nothing by mouth OG tube replaced Protonix for GI prophylaxis Colace/as needed Senokot for bowel regimen : BPH Lipscomb will be placed for accurate I's and O's in a critically ill patient On Terazosin at home. Currently on hold Endo: Sliding-scale insulin if indicated Renal: Creatinine currently within normal limits. Monitor urine output. Accurate I's and O's Heme: Leukocytosis Normocytic anemia CBC/coags pending ID: Klebsiella pneumonia Currently #4 Zosyn/Zithromax. Pansensitive. Pertinent cultures Sputum - Klebsiella pneumonia Blood cultures 2 - no growth FEN: Replacing lites lites as clinically indicated MSK: PT evaluate and treat Access - Utilize peripheral IV. Central line if indicated Prophylaxis - GI - Protonix - DVT- SCD/pharmacological prophylaxis contraindicated with hemoptysis Critical Care: The total critical care time was 35 minutes. Time to perform other separately billable procedures was not included in the critical care time. Valdez Miller MD Oct 24, 2016 10:16
--- NOTE | 2016-10-24 16:40 | HHI.PR ---
Subjective Remarks 71 YOWM with COPD, Pl effusion.left lung mass, atelactesis Had Chest tube placed with some re expansion of left lung Was omaira for bronch today Pt started having large hemoptysis Emergentaly intubated Hemoptysis controlled On AC, Fi02 40% Dw , CTS consulted to evaluate for possible stent Objective Vital Signs Vital Signs Date Time Temp Pulse Resp B/P Pulse Ox O2 Delivery O2 Flow Rate FiO2 10/24/16 16:27 98 40 10/24/16 16:22 98.0 57 16 109/62 98 10/24/16 16:00 40 10/24/16 16:00 56 10/24/16 15:00 57 10/24/16 14:00 60 10/24/16 12:00 97.9 57 18 105/57 98 10/24/16 12:00 40 10/24/16 12:00 57 10/24/16 09:00 100 100 10/24/16 08:07 93 40 10/24/16 08:00 59 10/24/16 07:00 60 10/24/16 06:00 60 10/24/16 04:49 97 35 10/24/16 04:00 40 10/24/16 04:00 98.9 54 16 107/64 97 10/24/16 04:00 54 10/24/16 02:00 58 10/24/16 01:13 99 35 10/24/16 00:00 98.4 59 16 100/59 99 10/24/16 00:00 59 10/24/16 00:00 40 10/23/16 23:00 100 40 10/23/16 22:00 61 10/23/16 21:40 40 10/23/16 20:35 100 40 10/23/16 20:00 98.8 74 16 97/56 99 10/23/16 20:00 74 10/23/16 19:12 100 100 10/23/16 18:55 100 100 10/23/16 18:00 66 I/O 10/23/16 10/23/16 10/23/16 10/24/16 10/24/16 10/24/16 07:00 15:00 23:00 07:00 15:00 23:00 Intake Total 595 ml 585 ml 250 ml 860 ml 1405 ml Output Total 543 ml 590 ml 275 ml 310 ml 1500 ml Balance 52 ml -5 ml -25 ml 550 ml -95 ml Intake Oral 0 ml 0 ml 0 ml IV Total 595 ml 585 ml 250 ml 860 ml 1405 ml Output Urine Total 500 ml 550 ml 240 ml 250 ml 1450 ml Gastric Drainage Total 50 ml Chest Tube Drainage Total 43 ml 40 ml 35 ml 60 ml # Bowel Movements 1 0 0 Result Diagram: 10/24/1643 10/24/16542 Objective Remarks GENERAL:WBWn WM , mild sob SKIN: Warm and dry. HEAD: Normocephalic. EYES: No scleral icterus. No injection or drainage. NECK: Supple, trachea midline. No JVD or lymphadenopathy. CARDIOVASCULAR: Regular rate and rhythm without murmurs, gallops, or rubs. RESPIRATORY: Breath sounds equal bilaterally. No accessory muscle use. Left chest tube draining Decreased BS left GASTROINTESTINAL: Abdomen soft, non-tender, nondistended. MUSCULOSKELETAL: No cyanosis, or edema. BACK: Nontender without obvious deformity. No CVA tenderness. A/P Assessment and Plan Left lung mass Atelactesis LargeHemoptysis COPD Pl effusion, s/p chest tube VDRF PLAN: Vent Support Sedation with fenatnyl and Diprivanrracemic epi Nebs Will Proceed with Emergent Bronch Chest tube to suction Cont abx Will check cytology of bronchial wash, if negative will need bronchial bx Valeriy Wilkins MD Oct 24, 2016 16:40
[2016-10-25] VITALS (20 sets, daily range): BP systolic 109–155; BP diastolic 57–75; PULSE 55–61; RESP 16; TEMP 97–98.4; O2SAT 96–100
[2016-10-25] MEDS: RESP: ALBUTEROL 2.5 MG/IPRATROPIUM 0.5 MG NEB (SCH) INH ×4 (00:15→11:27)
[2016-10-25] MEDS: PROPOFOL 1000 MG/100 ML INJ 100 ML IV SCH ×4 (02:43→19:54)
[2016-10-25] MEDS: CHLORHEXIDINE GLUCONATE 2 % 1 PACK (2 CLOTHS) TOP SCH (04:00)
[2016-10-25 05:39] LABS: BICARBONATE 29.5 MEQ/L (21.0-32.0); CALCIUM-PROTEIN CORRECTED 8.5 MG/DL (8.5-10.1); MAGNESIUM 2.5 MG/DL (1.5-2.5); POTASSIUM 4.4 MEQ/L (3.5-5.1); TOTAL BILIRUBIN ADULT 0.4 MG/DL (0.2-1.0)
[2016-10-25 05:41] LABS: AUTOMATED NEUTROPHIL # 8.9 TH/MM3 (1.8-7.7); BASOPHIL % 0.3 % (0.0-2.0); HEMO FLAGS DIFF FINAL; LYMPH % 6.4 % (9.0-44.0); LYMPHOCYTE # 0.7 TH/MM3 (1.0-4.8); MEAN CELL VOLUME 86.8 FL (80.0-100.0); MEAN CORPUSCULAR HEMOGLOBIN 28.9 PG (27.0-34.0); MEAN CORPUSCULAR HGB CONC 33.3 % (32.0-36.0); MONO % 6.8 % (0.0-8.0); NEUT % 86.5 % (16.0-70.0); PLATELET COUNT 330 TH/MM3 (150-450); RED BLOOD COUNT 3.46 MIL/MM3 (4.50-5.90); RED CELL DISTRIBUTION WIDTH 14.5 % (11.6-17.2); WHITE BLOOD COUNT 10.4 TH/MM3 (4.0-11.0)
[2016-10-25] MEDS: PIPERACIL-TAZO 4.5 GM PREMIX 100 ML IV SCH ×4 (06:03→22:43)
[2016-10-25] MEDS: methylPREDNISolone SOD SUCC 125 MG/2 ML VIAL IV PUSH SCH ×4 (06:03→22:43)
--- NOTE | 2016-10-25 06:16 | RADRPT ---
EXAM DATE/TIME: 10/25/2016 04:46 [facility] COMPARISON: CT THORAX W CONTRAST, October 24, 2016, 8:40. CHEST SINGLE AP, October 24, 2016, 4:11. INDICATIONS : Shortness of breath. MEDICAL HISTORY : Hypertension. Cardiovascular disease. SURGICAL HISTORY : None. ENCOUNTER: Subsequent ACUITY: 4 - 6 days PAIN SCORE: Non-responsive. LOCATION: Bilateral chest FINDINGS: Portable AP view of the chest demonstrates complete opacification of the left hemithorax with signs o f volume loss. Endotracheal tube and nasogastric tube remain present. There is mild pleural-parenchym al opacity at the right lung base that is stable. No pneumothorax is appreciated. Bones and soft tiss ues demonstrate no acute finding. CONCLUSION: 1. Stable chest x-ray with complete opacification of the left hemithorax secondary to pleural effusio n along with volume loss and left lung consolidation. 2. Left chest tube remains present and no left pneumothorax is seen. 3. Stable small right basilar pleural-parenchymal opacity. Prior chest CT documented this to be secon adalid to trace pleural fluid along with pleural thickening and airspace consolidation. Paul Booker MD on October 25, 2016 at 6:11 Board Certified Radiologist. This report was verified electronically.
[2016-10-25] MEDS: fentaNYL DRIP 250 ML IV SCH ×2 (06:33→19:54)
[2016-10-25] MEDS: SODIUM CHLOR 0.9% 1000 ML INJ 1,000 ML IV SCH ×2 (08:35→19:40)
[2016-10-25] MEDS: CHLORHEXIDINE 0.12% (ORAL KIT) 15 ML CUP MT SCH ×2 (08:36→19:57)
[2016-10-25] MEDS: SODIUM CHLORIDE 0.9% FLUSH 5 ML FLUSH IVF SCH ×2 (08:39→19:55)
[2016-10-25] MEDS: DOCUSATE SODIUM 100 MG CAP PO SCH ×2 (08:39→19:55)
[2016-10-25] MEDS: PANTOPRAZOLE SODIUM 40 MG VIAL IV SCH (08:39)
[2016-10-25] MEDS: ATENOLOL 25 MG TAB PO SCH ×2 (08:39→19:55)
[2016-10-25] MEDS: PHENYTOIN SODIUM 100 MG CAP PO SCH ×2 (08:39→19:55)
[2016-10-25] MEDS: AZITHROMYCIN INJ 500 MG in SODIUM CHLOR 0.9% 250 ML INJ 250 ML IV SCH (11:18)
--- NOTE | 2016-10-25 13:26 | HHI.CCPN ---
Subjective Remarks/Hospital Course 71-year-old male comes in complaining of cough and shortness of breath. He says for the past 2 days he has been coughing up blood. He occasionally passes clots, but often is just streaks in his mucus. He denies any chest pain, but says he is very short of breath when walking. He says he had an episode earlier in the month and he tried to come to the emergency department, but was frustrated with the wait and left. He says it went away, but has come back. He has smoked cigarettes, but quit several years ago. He does say that he currently smokes a pipe. He denies any fever or chills. He is not on any blood thinners, and this has never happened to him before. CT angio revealed Complete opacification of the left lung with central line this abrupt narrowing and nodularity central lesion or mucous plug suggested with collapse of the left lung a large effusion. 2: Called to see patient secondary to hemoptysis. Received 3 racemic epinephrine but continued to have hemoptysis. Emergently intubated using 40 mg etomidate with an 8.0 ET tube with glide scope. Dr. Wilkins at bedside to perform bronchoscopy currently. 10/24: Emergently intubated yesterday due to significant hemoptysis. Dr. Wilkins performed bronchoscopy at the bedside- lot of blood was removed from the trachea , which was suctioned out After repeated suctioning, lavage, and epinephrine used, bleeding was controlled. There was a mass obstructing the left lung and a large clot. A CT chest done today was discussed with Dr. Perry, left lung opacification is predominantly atelectatic lung, unless on fluid. Small apical pneumothorax, chest tube in good position. Dr. Wilkins planning for repeat bronchoscopy and biopsy today at 4 PM, with possible biopsy Subjective 2/3: Resting in bed. Chest -40 cm H2O with minimal drainage. No more bleeding. Spontaneous breathing trials ordered for today. Cytology still pending. Objective Vital Signs Date Time Temp Pulse Resp B/P Pulse Ox O2 Delivery O2 Flow Rate FiO2 10/25/16 10:00 59 10/25/16 08:05 97 40 10/25/16 08:00 97.0 16 111/64 10/23/16 08:35 Nasal Cannula 2.00 Intake and Output 210/24/16 10/25/16 08:00 16:00 00:00 Intake Total 860 ml 1405 ml 880 ml Output Total 310 ml 1500 ml 300 ml Balance 550 ml -95 ml 580 ml Result Diagram: 10/25/16 0448 10/25/16 0448 Other Results Microbiology Date/Time Procedure Status Source Growth 10/23/16 21:00 Stool Occult Blood ([place]) - Final Complete Stool Stool HEMOCCULT POSITIVE 10/23/16 19:40 Gram Stain - Final Complete Bronchial Washings Bronchial 10/23/16 19:40 Bronchial Culture - Final Complete Bronchial Washings Bronchial NO GROWTH IN 48 HOURS. 10/23/16 19:40 Fungal Smear - Final Resulted Bronchial Washings Left Upper Lobe NO FUNGAL ELEMENTS SEEN. 10/23/16 19:40 Fungal Culture Resulted Bronchial Washings Left Upper Lobe Pending 10/23/16 19:40 Acid Fast Stain Received Bronchial Washings Bronchial Pending 10/23/16 19:40 Mycobacterial Culture Received Bronchial Washings Bronchial Pending 10/22/16 10:00 Acid Fast Stain - Final Resulted Fluid Pleural Fluid NO ACID FAST BACILLI SEEN 10/22/16 10:00 Mycobacterial Culture Resulted Fluid Pleural Fluid Pending Imaging Last Impressions Chest X-Ray 10/25/16 0600 Signed Impressions: Service Date/Time: Tuesday, October 25, 2016 04:46 - CONCLUSION: 1. Stable chest x-ray with complete opacification of the left hemithorax secondary to pleural effusion along with volume loss and left lung consolidation. 2. Left chest tube remains present and no left pneumothorax is seen. 3. Stable small right basilar pleural-parenchymal opacity. Prior chest CT documented this to be secondary to trace pleural fluid along with pleural thickening and airspace consolidation. Paul Booker MD Chest CT 10/24/16 0000 Signed Impressions: Service Date/Time: October 08:40 - CONCLUSION: 1. Left lung collapse/consolidation similar to the prior study with cut off at the distal left mainstem bronchus again suggesting either mucus plugging or endobronchial mass. 2. Left pleural effusion slightly decreased. Hydropneumothorax now noted with new left sided pleural air-fluid level. No discrete septations or loculations identified. 3. Increase in patchy right lung atelectasis versus mild consolidation. 4. Diffusely mildly dilated fluid-filled esophagus. Jose Cloud MD CT Angiography 10/21/16 0820 Signed Impressions: Service Date/Time: Friday, October 21, 2016 09:13 - CONCLUSION: Complete opacification of the left lung with central line this abrupt narrowing and nodularity central lesion or mucous plug suggested with collapse of the left lung a large effusion. Negative for pulmonary. Jonathan Farrell MD Objective Remarks GENERAL/NEURO: 71-year-old male, intubated sedated. Moves all extremities on sedation hold SKIN: Warm and dry. No rash HEAD: Normocephalic. EYES: No scleral icterus. No injection or drainage. ENT: Orotracheally intubated, no bloody secretions NECK: Supple, trachea midline. No JVD or lymphadenopathy. CARDIOVASCULAR: Regular rate and rhythm without murmurs, gallops, or rubs. RESPIRATORY: Absent breath sounds left side. Coarse crackles appreciated right lobe. No significant blood from ETT. Left chest tube clean dry and intact. GASTROINTESTINAL: Abdomen soft, non-tender, nondistended. MUSCULOSKELETAL: Without significant peripheral BACK: Nontender without obvious deformity. No CVA tenderness. Procedures chest tube placement A/P Problem List: (1) Acute respiratory failure ICD Code: J96.00 Status: Acute (2) Pleural effusion ICD Code: J90 Status: Acute (3) Hypoxia ICD Code: R09.02 Status: Acute (4) Bronchiolar obstruction ICD Code: J98.09 Status: Acute (5) Mass of left lung ICD Code: R91.8 Status: Acute (6) Hemoptysis ICD Code: R04.2 Status: Acute Assessment and Plan Neuro/Psych: History of seizures Currently on propofol/fentanyl drips for sedation/analgesia while intubated Goal RASS -2. Daily sedation vacation Seizure precautions On Dilantin 300 twice a day. Dilantin level 8.8 CV: Sinus tachycardia History of hypertension History dyslipidemia Currently on atenolol 25 mg by mouth twice a day. On normal saline at 84 cc an hour. Holding simvastatin. Resp: Acute respiratory failure Hemoptysis Left pleural effusion, small pneumothorax status post chest tube L main bronchus from obstruction from probable lung CA ACV ventilation. 12/500/5/100. Ventilator bundle Bronchodilator therapy every 6 hours and as needed Chest tube - 20 [place] - -40 cm H2O. 135 cc SS output Bronchoscopy auscultated be revealed active bleeding left main bronchus stopped status post epinephrine 10/23 CT of the chest today 10/24/16 shows that the opacification is predominantly collapsed lung, effusion is small to moderate with loculation, very small apical pneumothorax Chest x-ray 10/25 shows resolution pneumothorax. Heme opacification the left lung. Follow-up ABG/chest x-ray post intubation Emergent bronchoscopy for hemoptysis by Dr. Wilkins/pulmonology now, repeat bronchoscopy and biopsy today We'll discuss with Dr. Wilkins regarding bronchial stent, may need transfer/CTS evaluation GI: Hypoalbuminemia Patient is currently nothing by mouth OG tube replaced Protonix for GI prophylaxis Colace/as needed Senokot for bowel regimen : BPH Lipscomb will be placed for accurate I's and O's in a critically ill patient On Terazosin at home. Currently on hold Endo: Sliding-scale insulin if indicated Renal: Creatinine currently within normal limits. Monitor urine output. Accurate I's and O's Heme: Leukocytosis Normocytic anemia Monitor CBC ID: Klebsiella pneumonia Currently #5 Zosyn/Zithromax. Pansensitive. Pertinent cultures 10/22 - bronchoscopy - no growth Sputum - Klebsiella pneumonia Blood cultures 2 - no growth FEN: Replacing electrolytes as clinically indicated MSK: PT evaluate and treat Access - Utilize peripheral IV. Central line if indicated Prophylaxis - GI - Protonix - DVT- SCD/pharmacological prophylaxis contraindicated with hemoptysis Critical Care: The total critical care time was 35 minutes. Time to perform other separately billable procedures was not included in the critical care time. Dr. Colbert requested transferred to [facility] for evaluation for stent. Gallito Rogers MD Oct 25, 2016 13:26
[2016-10-25] MEDS ORDERED: SOLU125I IV PUSH (13:40)
--- NOTE | 2016-10-25 13:44 | HHI.DS ---
Discharge Summary Admission Date Oct 21, 2016 at 10:20 Admitting Diagnosis Pneumothorax, pulmonary effusion, bronchiole obstruciton (1) Pneumothorax ICD Code: J93.9 Diagnosis: Principal (2) Pleural effusion ICD Code: J90 Diagnosis: Principal (3) Mass of left lung ICD Code: R91.8 Diagnosis: Principal (4) Hemoptysis ICD Code: R04.2 Diagnosis: Principal (5) Acute respiratory failure ICD Code: J96.00 Diagnosis: Principal (6) Bronchiolar obstruction ICD Code: J98.09 Diagnosis: Principal (7) Hypoxia ICD Code: R09.02 Diagnosis: Principal Procedures chest tube placement Brief History 71-year-old male comes in complaining of cough and shortness of breath. He says for the past 2 days he has been coughing up blood. He occasionally passes clots, but often is just streaks in his mucus. He denies any chest pain, but says he is very short of breath when walking. He says he had an episode earlier in the month and he tried to come to the emergency department, but was frustrated with the wait and left. He says it went away, but has come back. He has smoked cigarettes, but quit several years ago. He does say that he currently smokes a pipe. He denies any fever or chills. He is not on any blood thinners, and this has never happened to him before. CT angio revealed Complete opacification of the left lung with central line this abrupt narrowing and nodularity central lesion or mucous plug suggested with collapse of the left lung a large effusion. CBC/BMP: 10/25/16 0448 10/25/16 0448 Significant Findings Laboratory Tests Test 10/22/16 10/23/16 10/23/16 10/24/16 19:02 20:14 21:04 05:43 Prothrombin Time 11.7 SEC (9.8-11.6) Arterial Blood pH 7.32 (7.380-7.420) Arterial Blood Partial 53 mmHg (38-42) Pressure CO2 Arterial Blood Partial 365 mmHg Pressure O2 (61-120) Blood Gas Hemoglobin 9.9 G/DL (12.0-16.0) White Blood Count 14.5 TH/MM3 (4.0-11.0) Red Blood Count 3.59 MIL/MM3 3.20 MIL/MM3 (4.50-5.90) (4.50-5.90) Hemoglobin 10.3 GM/DL 9.5 GM/DL (13.0-17.0) (13.0-17.0) Hematocrit 31.3 % 28.1 % (39.0-51.0) (39.0-51.0) Neutrophils (%) (Auto) 81.1 % (16.0-70.0) Neutrophils # (Auto) 11.8 TH/MM3 (1.8-7.7) Monocytes # (Auto) 1.1 TH/MM3 (0-0.9) Blood Urea Nitrogen 19 MG/DL (7-18) Estimat Glomerular Filtration 60 ML/MIN (>89) 67 ML/MIN (>89) Rate Random Glucose 126 MG/DL (74-106) Calcium Level 7.7 MG/DL 7.3 MG/DL (8.5-10.1) (8.5-10.1) Total Protein 5.8 GM/DL 5.1 GM/DL (6.4-8.2) (6.4-8.2) Albumin 2.6 GM/DL 2.2 GM/DL (3.4-5.0) (3.4-5.0) Mean Platelet Volume 6.9 FL (7.0-11.0) Monocytes (%) (Auto) 10.9 % (0.0-8.0) Eosinophils (%) (Auto) 4.3 % (0.0-4.0) Protein Corrected Calcium 8.4 MG/DL (8.5-10.1) Aspartate Amino Transf 14 U/L (15-37) (AST/SGOT) Phenytoin (Dilantin) Level 8.8 MCG/ML (10.0-20.0) Test 10/25/16 04:48 Red Blood Count 3.46 MIL/MM3 (4.50-5.90) Hemoglobin 10.0 GM/DL (13.0-17.0) Hematocrit 30.0 % (39.0-51.0) Neutrophils (%) (Auto) 86.5 % (16.0-70.0) Lymphocytes (%) (Auto) 6.4 % (9.0-44.0) Neutrophils # (Auto) 8.9 TH/MM3 (1.8-7.7) Lymphocytes # (Auto) 0.7 TH/MM3 (1.0-4.8) Estimat Glomerular Filtration 76 ML/MIN (>89) Rate Random Glucose 121 MG/DL (74-106) Calcium Level 7.4 MG/DL (8.5-10.1) Total Protein 5.2 GM/DL (6.4-8.2) Albumin 2.0 GM/DL (3.4-5.0) Imaging Last Impressions Chest X-Ray 10/25/16 0600 Signed Impressions: Service Date/Time: Tuesday, October 25, 2016 04:46 - CONCLUSION: 1. Stable chest x-ray with complete opacification of the left hemithorax secondary to pleural effusion along with volume loss and left lung consolidation. 2. Left chest tube remains present and no left pneumothorax is seen. 3. Stable small right basilar pleural-parenchymal opacity. Prior chest CT documented this to be secondary to trace pleural fluid along with pleural thickening and airspace consolidation. Paul Booker MD Chest CT 10/24/16 0000 Signed Impressions: Service Date/Time: October 08:40 - CONCLUSION: 1. Left lung collapse/consolidation similar to the prior study with cut off at the distal left mainstem bronchus again suggesting either mucus plugging or endobronchial mass. 2. Left pleural effusion slightly decreased. Hydropneumothorax now noted with new left sided pleural air-fluid level. No discrete septations or loculations identified. 3. Increase in patchy right lung atelectasis versus mild consolidation. 4. Diffusely mildly dilated fluid-filled esophagus. Jose Cloud MD CT Angiography 10/21/16 0820 Signed Impressions: Service Date/Time: Friday, October 21, 2016 09:13 - CONCLUSION: Complete opacification of the left lung with central line this abrupt narrowing and nodularity central lesion or mucous plug suggested with collapse of the left lung a large effusion. Negative for pulmonary. Jonathan Farrell MD PE at Discharge GENERAL/NEURO: 71-year-old male, intubated sedated. Moves all extremities on sedation hold SKIN: Warm and dry. No rash HEAD: Normocephalic. EYES: No scleral icterus. No injection or drainage. ENT: Orotracheally intubated, no bloody secretions NECK: Supple, trachea midline. No JVD or lymphadenopathy. CARDIOVASCULAR: Regular rate and rhythm without murmurs, gallops, or rubs. RESPIRATORY: Absent breath sounds left side. Coarse crackles appreciated right lobe. No significant blood from ETT GASTROINTESTINAL: Abdomen soft, non-tender, nondistended. MUSCULOSKELETAL: Without significant peripheral BACK: Nontender without obvious deformity. No CVA tenderness. Transfer Summary Neuro/Psych: History of seizures Currently on propofol/fentanyl drips for sedation/analgesia while intubated Goal RASS -2. Daily sedation vacation Seizure precautions On Dilantin 300 twice a day. Dilantin level 8.8 CV: Sinus tachycardia History of hypertension History dyslipidemia Currently on atenolol 25 mg by mouth twice a day. On normal saline at 84 cc an hour. Holding simvastatin. Resp: Acute respiratory failure Hemoptysis Left pleural effusion, small pneumothorax status post chest tube L main bronchus from obstruction from probable lung CA ACV ventilation. 12/500/5/100. Ventilator bundle Bronchodilator therapy every 6 hours and as needed Chest tube - 20 [place] - -40 cm H2O. 135 cc SS output Bronchoscopy auscultated be revealed active bleeding left main bronchus stopped status post epinephrine 10/23 CT of the chest today 10/24/16 shows that the opacification is predominantly collapsed lung, effusion is small to moderate with loculation, very small apical pneumothorax Chest x-ray 10/25 shows resolution pneumothorax. Heme opacification the left lung. Follow-up ABG/chest x-ray post intubation Emergent bronchoscopy for hemoptysis by Dr. Wilkins/pulmonology now, repeat bronchoscopy and biopsy today We'll discuss with Dr. Wilkins regarding bronchial stent, may need transfer/CTS evaluation GI: Hypoalbuminemia Patient is currently nothing by mouth OG tube replaced Protonix for GI prophylaxis Colace/as needed Senokot for bowel regimen : BPH Lipscomb will be placed for accurate I's and O's in a critically ill patient On Terazosin at home. Currently on hold Endo: Sliding-scale insulin if indicated Renal: Creatinine currently within normal limits. Monitor urine output. Accurate I's and O's Heme: Leukocytosis Normocytic anemia Monitor CBC ID: Klebsiella pneumonia Currently #5 Zosyn/Zithromax. Pansensitive. Pertinent cultures 10/22 - bronchoscopy - no growth Sputum - Klebsiella pneumonia Blood cultures 2 - no growth FEN: Replacing electrolytes as clinically indicated MSK: PT evaluate and treat Access - Utilize peripheral IV. Central line if indicated Prophylaxis - GI - Protonix - DVT- SCD/pharmacological prophylaxis contraindicated with hemoptysis Critical Care: The total critical care time was 35 minutes. Time to perform other separately billable procedures was not included in the critical care time. Dr. Colbert requested transferred to [facility] for evaluation for stent. Hospital Course 71-year-old male comes in complaining of cough and shortness of breath. He says for the past 2 days he has been coughing up blood. He occasionally passes clots, but often is just streaks in his mucus. He denies any chest pain, but says he is very short of breath when walking. He says he had an episode earlier in the month and he tried to come to the emergency department, but was frustrated with the wait and left. He says it went away, but has come back. He has smoked cigarettes, but quit several years ago. He does say that he currently smokes a pipe. He denies any fever or chills. He is not on any blood thinners, and this has never happened to him before. CT angio revealed Complete opacification of the left lung with central line this abrupt narrowing and nodularity central lesion or mucous plug suggested with collapse of the left lung a large effusion. 2/1: Called to see patient secondary to hemoptysis. Received 3 racemic epinephrine but continued to have hemoptysis. Emergently intubated using 40 mg etomidate with an 8.0 ET tube with glide scope. Dr. Wilkins at bedside to perform bronchoscopy currently. 2/2: Emergently intubated yesterday due to significant hemoptysis. Dr. Wilkins performed bronchoscopy at the bedside- lot of blood was removed from the trachea , which was suctioned out After repeated suctioning, lavage, and epinephrine used, bleeding was controlled. There was a mass obstructing the left lung and a large clot. A CT chest done today was discussed with Dr. Perry, left lung opacification is predominantly atelectatic lung, unless on fluid. Small apical pneumothorax, chest tube in good position. Dr. Wilkins planning for repeat bronchoscopy and biopsy today at 4 PM, with possible biopsy Subjective 2/3: Resting in bed. Chest -40 cm H2O with minimal drainage. No more bleeding. Spontaneous breathing trials ordered for today. Cytology still pending. Pt Condition on Discharge: Guarded Discharge Disposition: Disch to Another Hospital Discharge Instructions DIET: Follow Instructions for: Nothing By Mouth Activities you can perform: Continue Bedrest Gallito Rogers MD Oct 25, 2016 13:44
[2016-10-25] MEDS: RESP: ALBUTEROL 2.5 MG/IPRATROPIUM 0.5 MG NEB (SCH) NEB ×2 (16:13→20:41)
--- NOTE | 2016-10-25 20:08 | HHI.PR ---
Subjective Remarks 71 YOWM with COPD, Pl effusion.left lung mass, atelactesis Had Chest tube placed with some re expansion of left lung Was omaira for bronch today Pt started having large hemoptysis Emergentaly intubated Hemoptysis controlled On AC, Fi02 40% Cytology pending CTS evaluated pt, plans to tr to [facility] Objective Vital Signs Vital Signs Date Time Temp Pulse Resp B/P Pulse Ox O2 Delivery O2 Flow Rate FiO2 10/25/16 18:00 59 10/25/16 16:13 100 40 10/25/16 16:00 97.0 59 16 111/64 96 10/25/16 16:00 40 10/25/16 16:00 59 10/25/16 15:00 60 10/25/16 14:00 59 10/25/16 10:00 59 10/25/16 08:05 97 40 10/25/16 08:00 97.0 59 16 111/64 96 10/25/16 08:00 59 10/25/16 08:00 40 10/25/16 07:00 59 10/25/16 06:00 59 10/25/16 04:08 97 40 10/25/16 04:00 61 10/25/16 04:00 98.4 61 16 109/57 96 10/25/16 04:00 40 10/25/16 02:00 60 10/25/16 00:15 100 40 10/25/16 00:00 61 10/25/16 00:00 98.2 61 16 155/75 97 10/25/16 00:00 40 10/24/16 23:00 59 10/24/16 22:00 59 10/24/16 21:24 97 40 I/O 10/24/16 10/24/16 10/24/16 10/25/16 10/25/16 10/25/16 07:00 15:00 23:00 07:00 15:00 23:00 Intake Total 860 ml 1405 ml 880 ml 1110 ml 1450 ml Output Total 310 ml 1500 ml 300 ml 400 ml 600 ml Balance 550 ml -95 ml 580 ml 710 ml 850 ml Intake Oral 0 ml 0 ml 0 ml 0 ml 0 ml IV Total 860 ml 1405 ml 880 ml 1110 ml 1450 ml Output Urine Total 250 ml 1450 ml 300 ml 400 ml 600 ml Gastric Drainage Total 50 ml Chest Tube Drainage Total 60 ml 0 ml 0 ml # Bowel Movements 0 0 0 0 0 Result Diagram: 10/25/1644710/25/16447 Objective Remarks GENERAL:WBWn WM , mild sob SKIN: Warm and dry. HEAD: Normocephalic. EYES: No scleral icterus. No injection or drainage. NECK: Supple, trachea midline. No JVD or lymphadenopathy. CARDIOVASCULAR: Regular rate and rhythm without murmurs, gallops, or rubs. RESPIRATORY: Breath sounds equal bilaterally. No accessory muscle use. Left chest tube draining Decreased BS left GASTROINTESTINAL: Abdomen soft, non-tender, nondistended. MUSCULOSKELETAL: No cyanosis, or edema. BACK: Nontender without obvious deformity. No CVA tenderness. A/P Assessment and Plan Left lung mass Atelactesis LargeHemoptysis COPD Pl effusion, s/p chest tube VDRF PLAN: Vent Support Sedation with fenatnyl and Diprivan. Racemic epi Nebs prn Will Proceed with Emergent Bronch Chest tube to suction Cont abx Will check cytology of bronchial wash, DW Son at BS Plans for tr to [facility] per CTS Valeriy Wilkins MD Oct 25, 2016 20:08
[2016-10-26] VITALS (20 sets, daily range): BP systolic 101–165; BP diastolic 1–84; PULSE 59–103; RESP 16–19; TEMP 97.9–98.8; O2SAT 95–99
[2016-10-26] MEDS: fentaNYL DRIP 250 ML IV SCH ×2 (01:08→10:57)
[2016-10-26] MEDS: PROPOFOL 1000 MG/100 ML INJ 100 ML IV SCH ×4 (01:08→18:02)
[2016-10-26] MEDS: CHLORHEXIDINE GLUCONATE 2 % 1 PACK (2 CLOTHS) TOP SCH (04:00)
--- NOTE | 2016-10-26 04:03 | RADRPT ---
EXAM DATE/TIME: 10/26/2016 03:22 [facility] COMPARISON: CHEST SINGLE AP, October 25, 2016, 4:46. INDICATIONS : Shortness of breath, possible pulmonary disease. MEDICAL HISTORY : Hypertension. Cardiovascular disease. SURGICAL HISTORY : None. ENCOUNTER: Subsequent ACUITY: 1 week PAIN SCORE: Non-responsive. LOCATION: Bilateral chest FINDINGS: Portable AP view of the chest demonstrates complete opacification the left hemithorax with only mild leftward shift of the mediastinum. Nasogastric tube and endotracheal tube remain present. There is st able subtle opacity at the right lung base. No pneumothorax is visualized. Left chest tube remains pr esent. CONCLUSION: Stable chest x-ray with complete opacification left hemithorax likely secondary to pleural effusion a long with volume loss and consolidation. There is a stable right basilar opacity. Paul Booker MD on October 26, 2016 at 4:01 Board Certified Radiologist. This report was verified electronically.
[2016-10-26] MEDS: methylPREDNISolone SOD SUCC 125 MG/2 ML VIAL IV PUSH SCH ×3 (04:25→16:47)
[2016-10-26] MEDS: PIPERACIL-TAZO 4.5 GM PREMIX 100 ML IV SCH ×3 (04:25→18:01)
[2016-10-26] MEDS: RESP: ALBUTEROL 2.5 MG/IPRATROPIUM 0.5 MG NEB (SCH) NEB ×4 (04:51→20:24)
[2016-10-26 06:09] LABS: AUTOMATED NEUTROPHIL # 8.2 TH/MM3 (1.8-7.7); BASOPHIL # 0.1 TH/MM3 (0-0.2); BASOPHIL % 1.2 % (0.0-2.0); EOSINOPHIL % 0.5 % (0.0-4.0); HEMATOCRIT 27.8 % (39.0-51.0); HEMO FLAGS DIFF FINAL; LYMPH % 6.7 % (9.0-44.0); LYMPHOCYTE # 0.6 TH/MM3 (1.0-4.8); MEAN CELL VOLUME 87.1 FL (80.0-100.0); MEAN CORPUSCULAR HEMOGLOBIN 29.3 PG (27.0-34.0); MEAN CORPUSCULAR HGB CONC 33.7 % (32.0-36.0); NEUT % 86.6 % (16.0-70.0); PLATELET COUNT 352 TH/MM3 (150-450); RED BLOOD COUNT 3.19 MIL/MM3 (4.50-5.90); RED CELL DISTRIBUTION WIDTH 14.5 % (11.6-17.2); WHITE BLOOD COUNT 9.4 TH/MM3 (4.0-11.0)
[2016-10-26 06:34] LABS: BICARBONATE 29.2 MEQ/L (21.0-32.0); MAGNESIUM 2.4 MG/DL (1.5-2.5); POTASSIUM 4.4 MEQ/L (3.5-5.1)
[2016-10-26] MEDS: PANTOPRAZOLE SODIUM 40 MG VIAL IV SCH (08:07)
[2016-10-26] MEDS: ATENOLOL 25 MG TAB PO SCH ×2 (08:07→21:08)
[2016-10-26] MEDS: DOCUSATE SODIUM 100 MG CAP PO SCH ×2 (08:07→21:08)
[2016-10-26] MEDS: PHENYTOIN SODIUM 100 MG CAP PO SCH ×2 (08:07→21:08)
[2016-10-26] MEDS: CHLORHEXIDINE 0.12% (ORAL KIT) 15 ML CUP MT SCH ×2 (08:08→21:08)
[2016-10-26] MEDS: SODIUM CHLOR 0.9% 1000 ML INJ 1,000 ML IV SCH ×2 (08:08→18:01)
[2016-10-26] MEDS: SODIUM CHLORIDE 0.9% FLUSH 5 ML FLUSH IVF SCH ×2 (08:09→21:00)
[2016-10-26] MEDS ORDERED: SENNOSIDES SYRUP 8.8 MG/5 ML CUP PO ONE (11:45)
[2016-10-26] MEDS ORDERED: POLYETHYLENE GLYCOL 17 GM PKG PO ONE (11:45)
[2016-10-26] MEDS ORDERED: GLYCERIN ADULT 2 GM SUPP RECTAL PRN (11:45)
[2016-10-26] MEDS: AZITHROMYCIN INJ 500 MG in SODIUM CHLOR 0.9% 250 ML INJ 250 ML IV SCH (11:46)
--- NOTE | 2016-10-26 11:48 | HHI.CCPN ---
Subjective Remarks/Hospital Course 71-year-old male comes in complaining of cough and shortness of breath. He says for the past 2 days he has been coughing up blood. He occasionally passes clots, but often is just streaks in his mucus. He denies any chest pain, but says he is very short of breath when walking. He says he had an episode earlier in the month and he tried to come to the emergency department, but was frustrated with the wait and left. He says it went away, but has come back. He has smoked cigarettes, but quit several years ago. He does say that he currently smokes a pipe. He denies any fever or chills. He is not on any blood thinners, and this has never happened to him before. CT angio revealed Complete opacification of the left lung with central line this abrupt narrowing and nodularity central lesion or mucous plug suggested with collapse of the left lung a large effusion. 2/1: Called to see patient secondary to hemoptysis. Received 3 racemic epinephrine but continued to have hemoptysis. Emergently intubated using 40 mg etomidate with an 8.0 ET tube with glide scope. Dr. Wilkins at bedside to perform bronchoscopy currently. 22: Emergently intubated yesterday due to significant hemoptysis. Dr. Wilkins performed bronchoscopy at the bedside- lot of blood was removed from the trachea , which was suctioned out After repeated suctioning, lavage, and epinephrine used, bleeding was controlled. There was a mass obstructing the left lung and a large clot. A CT chest done today was discussed with Dr. Perry, left lung opacification is predominantly atelectatic lung, unless on fluid. Small apical pneumothorax, chest tube in good position. Dr. Wilkins planning for repeat bronchoscopy and biopsy today at 4 PM, with possible biopsy 2/3: Resting in bed. Chest -40 cm H2O with minimal drainage. No more bleeding. Spontaneous breathing trials ordered for today. Cytology still pending. Subjective 10/26: Afebrile. No bowel movement. Arousable on Ventolin falls commands. No drainage from chest tube. No more hemoptysis noted. Spontaneous breathing trials scheduled for today. Objective Vital Signs Date Time Temp Pulse Resp B/P Pulse Ox O2 Delivery O2 Flow Rate FiO2 10/26/16 11:37 99 40 10/26/16 08:00 68 10/26/16 04:00 98.0 16 133/73 10/23/16 08:35 Nasal Cannula 2.00 Intake and Output 10/25/16 10/25/16 10/26/16 08:00 16:00 00:00 Intake Total 1110 ml 1450 ml 1080 ml Output Total 400 ml 600 ml 650 ml Balance 710 ml 850 ml 430 ml Result Diagram: 10/26/16 0543 10/26/16 0543 Other Results Microbiology Date/Time Procedure Status Source Growth 10/23/16 21:00 Stool Occult Blood ([place]) - Final Complete Stool Stool HEMOCCULT POSITIVE 10/23/16 19:40 Gram Stain - Final Complete Bronchial Washings Bronchial 10/23/16 19:40 Bronchial Culture - Final Complete Bronchial Washings Bronchial NO GROWTH IN 48 HOURS. 10/23/16 19:40 Fungal Smear - Final Resulted Bronchial Washings Left Upper Lobe NO FUNGAL ELEMENTS SEEN. 10/23/16 19:40 Fungal Culture Resulted Bronchial Washings Left Upper Lobe Pending 10/23/16 19:40 Acid Fast Stain - Final Resulted Bronchial Washings Bronchial NO ACID FAST BACILLI SEEN 10/23/16 19:40 Mycobacterial Culture Resulted Bronchial Washings Bronchial Pending Imaging Last Impressions Chest X-Ray 10/26/16 0600 Signed Impressions: Service Date/Time: Wednesday, October 26, 2016 03:22 - CONCLUSION: Stable chest x-ray with complete opacification left hemithorax likely secondary to pleural effusion along with volume loss and consolidation. There is a stable right basilar opacity. Paul Booker MD Chest CT 10/24/16 0000 Signed Impressions: Service Date/Time: October 08:40 - CONCLUSION: 1. Left lung collapse/consolidation similar to the prior study with cut off at the distal left mainstem bronchus again suggesting either mucus plugging or endobronchial mass. 2. Left pleural effusion slightly decreased. Hydropneumothorax now noted with new left sided pleural air-fluid level. No discrete septations or loculations identified. 3. Increase in patchy right lung atelectasis versus mild consolidation. 4. Diffusely mildly dilated fluid-filled esophagus. Jose Cloud MD CT Angiography 10/21/16 0820 Signed Impressions: Service Date/Time: Friday, October 21, 2016 09:13 - CONCLUSION: Complete opacification of the left lung with central line this abrupt narrowing and nodularity central lesion or mucous plug suggested with collapse of the left lung a large effusion. Negative for pulmonary. Jonathan Farrell MD Objective Remarks GENERAL/NEURO: 71-year-old male, intubated sedated. Moves all extremities on sedation hold SKIN: Warm and dry. No rash HEAD: Normocephalic. EYES: No scleral icterus. No injection or drainage. ENT: Orotracheally intubated, no bloody secretions NECK: Supple, trachea midline. No JVD or lymphadenopathy. CARDIOVASCULAR: Regular rate and rhythm without murmurs, gallops, or rubs. RESPIRATORY: Absent breath sounds left side. Coarse crackles appreciated right lobe. No significant blood from ETT. Left chest tube clean dry and intact. With no output GASTROINTESTINAL: Abdomen soft, non-tender, nondistended. MUSCULOSKELETAL: Without significant peripheral BACK: Nontender without obvious deformity. No CVA tenderness. Procedures chest tube placement Urinary Catheter: Yes Assessment to: Continue Lipscomb insert reason: Prolonged Immobilization Vascular Central Line Catheter: No Assessment to: Continue A/P Problem List: (1) Acute respiratory failure ICD Code: J96.00 Status: Acute (2) Pleural effusion ICD Code: J90 Status: Acute (3) Hypoxia ICD Code: R09.02 Status: Acute (4) Bronchiolar obstruction ICD Code: J98.09 Status: Acute (5) Mass of left lung ICD Code: R91.8 Status: Acute (6) Hemoptysis ICD Code: R04.2 Status: Acute Assessment and Plan Neuro/Psych: History of seizures Currently on propofol/fentanyl drips for sedation/analgesia while intubated Goal RASS -2. Daily sedation vacation Seizure precautions On Dilantin 300 twice a day. Dilantin level 8.8 CV: Sinus tachycardia History of hypertension History dyslipidemia Currently on atenolol 25 mg by mouth twice a day. On normal saline at 84 cc an hour. Holding simvastatin. Resume when clinically indicated Resp: Acute respiratory failure Hemoptysis Left pleural effusion, small pneumothorax status post chest tube L main bronchus from obstruction from probable lung CA ACV ventilation. 16/500/5/40 Ventilator bundle Bronchodilator therapy every 6 hours and as needed Chest tube - 20 [place] - -40 cm H2O. 0 cc SS output Bronchoscopy auscultated be revealed active bleeding left main bronchus stopped status post epinephrine 10/23 CT of the chest today 10/24/16 shows that the opacification is predominantly collapsed lung, effusion is small to moderate with loculation, very small apical pneumothorax Chest x-ray 10/26 shows resolution pneumothorax. Heme opacification the left lung. Follow-up ABG/chest x-ray post intubation Emergent bronchoscopy for hemoptysis by Dr. Wilkins/pulmonology 10/23, repeat bronchoscopy and biopsy 10/[address] Wilkins regarding bronchial stent, and planned transferred to [facility] GI: Hypoalbuminemia Patient is currently nothing by mouth. If not extubated today start Jevity 1.5 goal 50 cc an hour OG tube replaced Protonix for GI prophylaxis Colace/as needed Senokot for bowel regimen : BPH Lipscomb will be placed for accurate I's and O's in a critically ill patient On Terazosin at home. Currently on hold Endo: Sliding-scale insulin if indicated Renal: Creatinine currently within normal limits. Monitor urine output. Accurate I's and O's Heme: Leukocytosis Normocytic anemia Monitor CBC ID: Klebsiella pneumonia Currently #6 Zosyn/Zithromax. Pansensitive. Pertinent cultures 10/22 - bronchoscopy - no growth Sputum - Klebsiella pneumonia Blood cultures 2 - no growth FEN: Replacing electrolytes as clinically indicated MSK: PT evaluate and treat Access - Utilize peripheral IV. Central line if indicated Prophylaxis - GI - Protonix - DVT- SCD/pharmacological prophylaxis contraindicated with hemoptysis Critical Care: The total critical care time was 35 minutes. Time to perform other separately billable procedures was not included in the critical care time. Dr. Colbert requested transferred to [facility] for evaluation for stent. Gallito Rogers MD Oct 26, 2016 11:47
[2016-10-26] MEDS ORDERED: NITROGLYCERIN 2% OINT 1 GM PACKET TOPICAL PRN (13:30)
[2016-10-26] MEDS ORDERED: LABETALOL HCL 100 MG/20 ML VIAL IV PUSH PRN (13:30)
[2016-10-26] MEDS ORDERED: hydrALAZINE HCL 20 MG/ML VIAL IV PUSH PRN (13:30)
--- NOTE | 2016-10-26 17:50 | HHI.PR ---
Subjective Remarks 71 YOWM with COPD, Pl effusion.left lung mass, atelactesis Had Chest tube placed with some re expansion of left lung Was omaira for bronch today Pt started having large hemoptysis Emergentaly intubated Hemoptysis controlled 40% Cytology pending CTS evaluated pt, plans to tr to [facility] to CPAP Objective Vital Signs Vital Signs Date Time Temp Pulse Resp B/P Pulse Ox O2 Delivery O2 Flow Rate FiO2 10/26/16 17:19 96 40 10/26/16 16:00 40 10/26/16 16:00 98.0 65 16 135/1 98 10/26/16 16:00 103 10/26/16 15:00 102 10/26/16 14:00 94 10/26/16 12:00 98.7 79 16 101/64 96 10/26/16 12:00 40 10/26/16 12:00 68 10/26/16 11:37 99 40 10/26/16 10:00 68 10/26/16 09:28 97 40 10/26/16 08:00 40 10/26/16 08:00 68 10/26/16 08:00 98.2 75 16 148/84 98 10/26/16 07:00 70 10/26/16 06:00 62 10/26/16 04:27 97 40 10/26/16 04:00 40 10/26/16 04:00 59 10/26/16 04:00 98.0 59 16 133/73 98 10/26/16 02:00 61 10/26/16 01:23 95 40 10/26/16 00:00 97.9 60 16 165/75 96 10/26/16 00:00 60 10/26/16 00:00 40 10/25/16 23:00 55 10/25/16 22:25 98 40 10/25/16 22:00 60 10/25/16 20:00 55 10/25/16 20:00 40 10/25/16 20:00 98.3 55 16 141/74 99 10/25/16 19:28 100 40 10/25/16 18:00 59 I/O 10/25/16 10/25/16 10/25/16 10/26/16 10/26/16 10/26/16 07:00 15:00 23:00 07:00 15:00 23:00 Intake Total 1110 ml 1450 ml 1080 ml 920 ml 1560 ml Output Total 400 ml 600 ml 650 ml 400 ml 800 ml Balance 710 ml 850 ml 430 ml 520 ml 760 ml Intake Oral 0 ml 0 ml 0 ml 0 ml 0 ml IV Total 1110 ml 1450 ml 1080 ml 920 ml 1560 ml Output Urine Total 400 ml 600 ml 650 ml 400 ml 800 ml Chest Tube Drainage Total 0 ml 0 ml 0 ml # Bowel Movements 0 0 0 0 0 Result Diagram: 10/26/1654210/26/16542 Objective Remarks GENERAL:WBWn WM , mild sob SKIN: Warm and dry. HEAD: Normocephalic. EYES: No scleral icterus. No injection or drainage. NECK: Supple, trachea midline. No JVD or lymphadenopathy. CARDIOVASCULAR: Regular rate and rhythm without murmurs, gallops, or rubs. RESPIRATORY: Breath sounds equal bilaterally. No accessory muscle use. Left chest tube draining Decreased BS left GASTROINTESTINAL: Abdomen soft, non-tender, nondistended. MUSCULOSKELETAL: No cyanosis, or edema. BACK: Nontender without obvious deformity. No CVA tenderness. A/P Assessment and Plan Left lung mass Atelactesis LargeHemoptysis COPD Pl effusion, s/p chest tube VDRF PLAN: Vent Support Sedation with fenatnyl and Diprivan. Racemic epi Nebs prn Will Proceed with Emergent Bronch Chest tube to suction Cont abx Will check cytology of bronchial wash, DW Son at BS Plans for tr to [facility] per CTS CPAP trial Valeriy Wilkins MD Oct 26, 2016 17:50
[2016-10-27] VITALS (19 sets, daily range): BP systolic 112–144; BP diastolic 59–70; PULSE 53–71; RESP 16–21; TEMP 98–99.3; O2SAT 97–100
[2016-10-27] MEDS: PIPERACIL-TAZO 4.5 GM PREMIX 100 ML IV SCH ×5 (00:10→23:02)
[2016-10-27] MEDS: methylPREDNISolone SOD SUCC 125 MG/2 ML VIAL IV PUSH SCH ×3 (00:11→11:26)
[2016-10-27] MEDS: PROPOFOL 1000 MG/100 ML INJ 100 ML IV SCH ×4 (02:53→22:34)
[2016-10-27] MEDS: RESP: ALBUTEROL 2.5 MG/IPRATROPIUM 0.5 MG NEB (SCH) NEB ×4 (03:17→22:00)
[2016-10-27] MEDS: CHLORHEXIDINE GLUCONATE 2 % 1 PACK (2 CLOTHS) TOP SCH (04:00)
--- NOTE | 2016-10-27 04:14 | RADRPT ---
EXAM DATE/TIME: 10/27/2016 02:59 [facility] COMPARISON: CHEST SINGLE AP, October 26, 2016, 3:22. INDICATIONS : Shortness of breath, possible pulmonary disease. MEDICAL HISTORY : Hypertension. Cardiovascular disease. SURGICAL HISTORY : None. ENCOUNTER: Subsequent ACUITY: 1 week PAIN SCORE: Non-responsive. LOCATION: Bilateral chest FINDINGS: Portable AP view of the chest demonstrates complete opacification left hemithorax without significant leftward shift of the mediastinum. ETT and nasogastric tube remain present. There is stable hazy opa city at the right lung base. No pneumothorax is visualized. CONCLUSION: Stable chest x-ray with complete opacification of the left hemithorax likely secondary to pleural eff usion along with volume loss and consolidation. There is also stable right basilar opacity. Paul Booker MD on October 27, 2016 at 4:12 Board Certified Radiologist. This report was verified electronically.
[2016-10-27] MEDS: DOCUSATE SODIUM 100 MG CAP PO SCH ×2 (09:00→21:00)
[2016-10-27] MEDS: SENNOSIDES SYRUP 8.8 MG/5 ML CUP PO SCH (09:00)
[2016-10-27] MEDS: POLYETHYLENE GLYCOL 17 GM PKG PO SCH (09:00)
[2016-10-27] MEDS: ATENOLOL 25 MG TAB PO SCH ×2 (09:00→21:20)
[2016-10-27] MEDS: SODIUM CHLORIDE 0.9% FLUSH 5 ML FLUSH IVF SCH ×2 (09:20→21:00)
[2016-10-27] MEDS: PHENYTOIN SODIUM 100 MG CAP PO SCH ×2 (09:21→21:20)
[2016-10-27] MEDS: SODIUM CHLOR 0.9% 1000 ML INJ 1,000 ML IV SCH (09:22)
[2016-10-27] MEDS: CHLORHEXIDINE 0.12% (ORAL KIT) 15 ML CUP MT SCH (09:23)
[2016-10-27] MEDS: AZITHROMYCIN INJ 500 MG in SODIUM CHLOR 0.9% 250 ML INJ 250 ML IV SCH (11:25)
[2016-10-27] MEDS: PANTOPRAZOLE SODIUM 40 MG VIAL IV SCH (11:26)
[2016-10-27 11:31] LABS: AUTOMATED NEUTROPHIL # 8.9 TH/MM3 (1.8-7.7); BASOPHIL # 0.1 TH/MM3 (0-0.2); BASOPHIL % 0.5 % (0.0-2.0); EOSINOPHIL % 0.1 % (0.0-4.0); HEMATOCRIT 28.6 % (39.0-51.0); HEMO FLAGS DIFF FINAL; LYMPHOCYTE # 0.7 TH/MM3 (1.0-4.8); MEAN CELL VOLUME 86.7 FL (80.0-100.0); MEAN CORPUSCULAR HEMOGLOBIN 29.8 PG (27.0-34.0); MEAN CORPUSCULAR HGB CONC 34.4 % (32.0-36.0); MONO % 6.8 % (0.0-8.0); NEUT % 85.6 % (16.0-70.0); PLATELET COUNT 369 TH/MM3 (150-450); RED CELL DISTRIBUTION WIDTH 14.6 % (11.6-17.2); WHITE BLOOD COUNT 10.3 TH/MM3 (4.0-11.0)
[2016-10-27] MEDS ORDERED: RESP: RACEPINEPHRINE 2.25% 0.5 ML NEB NEB STA ×2 (11:37→11:53)
--- NOTE | 2016-10-27 11:42 | HHI.CCPN ---
Subjective Remarks/Hospital Course 71-year-old male comes in complaining of cough and shortness of breath. He says for the past 2 days he has been coughing up blood. He occasionally passes clots, but often is just streaks in his mucus. He denies any chest pain, but says he is very short of breath when walking. He says he had an episode earlier in the month and he tried to come to the emergency department, but was frustrated with the wait and left. He says it went away, but has come back. He has smoked cigarettes, but quit several years ago. He does say that he currently smokes a pipe. He denies any fever or chills. He is not on any blood thinners, and this has never happened to him before. CT angio revealed Complete opacification of the left lung with central line this abrupt narrowing and nodularity central lesion or mucous plug suggested with collapse of the left lung a large effusion. 2/1: Called to see patient secondary to hemoptysis. Received 3 racemic epinephrine but continued to have hemoptysis. Emergently intubated using 40 mg etomidate with an 8.0 ET tube with glide scope. Dr. Wilkins at bedside to perform bronchoscopy currently. 22: Emergently intubated yesterday due to significant hemoptysis. Dr. Wilkins performed bronchoscopy at the bedside- lot of blood was removed from the trachea , which was suctioned out After repeated suctioning, lavage, and epinephrine used, bleeding was controlled. There was a mass obstructing the left lung and a large clot. A CT chest done today was discussed with Dr. Perry, left lung opacification is predominantly atelectatic lung, unless on fluid. Small apical pneumothorax, chest tube in good position. Dr. Wilkins planning for repeat bronchoscopy and biopsy today at 4 PM, with possible biopsy 2/3: Resting in bed. Chest -40 cm H2O with minimal drainage. No more bleeding. Spontaneous breathing trials ordered for today. Cytology still pending. 24: Afebrile. No bowel movement. Arousable on Ventolin falls commands. No drainage from chest tube. No more hemoptysis noted. Spontaneous breathing trials scheduled for today. Subjective 2/5: Afebrile. To balance overnight. Increasing hemoptysis noted from ET tube. Continue racemic epi 2 now. No plans for extubation until transfer. Waiting for "financials" prior to transfer to [facility] for evaluation by interventional pulmonology/CT surgery Objective Vital Signs Date Time Temp Pulse Resp B/P Pulse Ox O2 Delivery O2 Flow Rate FiO2 10/27/16 09:02 99 40 10/27/16 07:00 57 10/27/16 04:00 99.3 21 122/64 10/23/16 08:35 Nasal Cannula 2.00 Intake and Output 10/26/16 10/26/16 10/27/16 08:00 16:00 00:00 Intake Total 920 ml 1560 ml 1027 ml Output Total 400 ml 800 ml 725 ml Balance 520 ml 760 ml 302 ml Result Diagram: 10/27/16 1105 10/26/16 0543 Other Results Microbiology Date/Time Procedure Status Source Growth 10/23/16 21:00 Stool Occult Blood ([facility]) - Final Complete Stool Stool HEMOCCULT POSITIVE 10/23/16 19:40 Gram Stain - Final Complete Bronchial Washings Bronchial 10/23/16 19:40 Bronchial Culture - Final Complete Bronchial Washings Bronchial NO GROWTH IN 48 HOURS. 10/23/16 19:40 Fungal Smear - Final Resulted Bronchial Washings Left Upper Lobe NO FUNGAL ELEMENTS SEEN. 10/23/16 19:40 Fungal Culture Resulted Bronchial Washings Left Upper Lobe Pending 10/23/16 19:40 Acid Fast Stain - Final Resulted Bronchial Washings Bronchial NO ACID FAST BACILLI SEEN 10/23/16 19:40 Mycobacterial Culture Resulted Bronchial Washings Bronchial Pending Imaging Last Impressions Chest X-Ray 10/27/16 0600 Signed Impressions: Service Date/Time: Thursday, October 27, 2016 02:59 - CONCLUSION: Stable chest x-ray with complete opacification of the left hemithorax likely secondary to pleural effusion along with volume loss and consolidation. There is also stable right basilar opacity. Paul Booker MD Chest CT 10/24/16 0000 Signed Impressions: Service Date/Time: October 08:40 - CONCLUSION: 1. Left lung collapse/consolidation similar to the prior study with cut off at the distal left mainstem bronchus again suggesting either mucus plugging or endobronchial mass. 2. Left pleural effusion slightly decreased. Hydropneumothorax now noted with new left sided pleural air-fluid level. No discrete septations or loculations identified. 3. Increase in patchy right lung atelectasis versus mild consolidation. 4. Diffusely mildly dilated fluid-filled esophagus. Jose Cloud MD CT Angiography 10/21/16 0820 Signed Impressions: Service Date/Time: Friday, October 21, 2016 09:13 - CONCLUSION: Complete opacification of the left lung with central line this abrupt narrowing and nodularity central lesion or mucous plug suggested with collapse of the left lung a large effusion. Negative for pulmonary. Jonathan Farrell MD Objective Remarks GENERAL/NEURO: 71-year-old male, intubated sedated. Moves all extremities on sedation hold SKIN: Warm and dry. No rash HEAD: Normocephalic. EYES: No scleral icterus. No injection or drainage. ENT: Orotracheally intubated, today with scant bloody secretions NECK: Supple, trachea midline. No JVD or lymphadenopathy. CARDIOVASCULAR: Bradycardic, RRR. S1, S2. No S4. Without murmurs, gallops, or rubs. RESPIRATORY: Absent breath sounds left side. Coarse crackles appreciated right lobe. No significant blood from ETT. Left chest tube clean dry and intact. With no output GASTROINTESTINAL: Abdomen soft, non-tender, nondistended. Hypoactive bowel sounds. MUSCULOSKELETAL: Without significant peripheral edema. BACK: Nontender without obvious deformity. No CVA tenderness. Procedures chest tube placement A/P Problem List: (1) Acute respiratory failure ICD Code: J96.00 Status: Acute (2) Pleural effusion ICD Code: J90 Status: Acute (3) Hypoxia ICD Code: R09.02 Status: Acute (4) Bronchiolar obstruction ICD Code: J98.09 Status: Acute (5) Mass of left lung ICD Code: R91.8 Status: Acute (6) Hemoptysis ICD Code: R04.2 Status: Acute Assessment and Plan Neuro/Psych: History of seizures Currently on propofol/fentanyl drips for sedation/analgesia while intubated Goal RASS -2. Daily sedation vacation Seizure precautions On Dilantin 300 twice a day. Dilantin level 8.8 CV: Sinus tachycardia History of hypertension History dyslipidemia Currently on atenolol 25 mg by mouth twice a day. On normal saline at 84 cc an hour. This be discontinued today Holding simvastatin. Resume when clinically indicated Resp: Acute respiratory failure Hemoptysis Left pleural effusion, small pneumothorax status post chest tube L main bronchus from obstruction from probable lung CA ACV ventilation. 16/500/5/40 Ventilator bundle Bronchodilator therapy every 6 hours and as needed Chest tube - 20 [place] - -40 cm H2O. 0 cc SS output Bronchoscopy auscultated be revealed active bleeding left main bronchus stopped status post epinephrine 10/23 CT of the chest today 10/24/16 shows that the opacification is predominantly collapsed lung, effusion is small to moderate with loculation, very small apical pneumothorax Chest x-ray 10/26 shows resolution pneumothorax. Heme opacification the left lung. Follow-up ABG/chest x-ray post intubation Emergent bronchoscopy for hemoptysis by Dr. Wilkins/pulmonology 10/23, repeat bronchoscopy and biopsy 10/[address] Wilkins discussion today regarding hemoptysis. We'll attempt her C. difficile 2. If this is not successful, reattempt bronchoscopy for hemoptysis. Likely sources left main bronchus mass CT surgery valuation Dr. Colbert. Currently with planned transferred to [facility] for evaluation of left main bronchus mass once financials approved per social media sr strategy manager GI: Hypoalbuminemia Continue Jevity 1.5 goal 50 cc an hour OG tube replaced Protonix for GI prophylaxis Colace/as needed Senokot for bowel regimen : BPH Lipscomb will be placed for accurate I's and O's in a critically ill patient On Terazosin at home. Currently on hold Endo: Sliding-scale insulin if indicated Renal: Creatinine currently within normal limits. Monitor urine output. Accurate I's and O's Heme: Leukocytosis Normocytic anemia Monitor CBC ID: Klebsiella pneumonia Currently #7 Zosyn/Zithromax. Discontinue Zithromax today Pertinent cultures 10/22 - bronchoscopy - no growth Sputum - Klebsiella pneumonia Blood cultures 2 - no growth FEN: Replacing electrolytes as clinically indicated MSK: PT evaluate and treat Access - Utilize peripheral IV. Central line if indicated Prophylaxis - GI - Protonix - DVT- SCD/pharmacological prophylaxis contraindicated with hemoptysis Critical Care: The total critical care time was 35 minutes. Time to perform other separately billable procedures was not included in the critical care time. Dr. Colbert requested transferred to [facility] for evaluation of left main bronchus lesion. Addendum Approximately 1900 hours, patient with gross hemoptysis. Received racemic epinephrine 0.5% 2. Continue to have hemoptysis and decision was made to perform fiberoptic bronchoscopy. Upon direct visualization, large fresh clot located near the aisha by the left main bronchus. This was with 2 cc of 1/10, 000 epinephrine with more bleeding noted. Decision was made to intubate down right mainstem which was performed. Irrigation with multiple aliquots of sterile saline to clear right lung. Saturations remain 100% throughout the procedure. On bronchoscopies, able to visualize right upper lobe, middle lobe and lower lobe through ET tube. Chest x-ray reviewed post procedure showed positioning a tube and right mainstem. Discussed with Dr. Early and Dr. Villanueva at [facility]. Unwilling to accept transfer secondary to CT surgery available at [facility]. Patient discussed with Dr. Motta at [facility]/[place]. Unwilling to accept patient secondary to one bed available and transfer coronary unavailable until a.m. 10/28 Discussed with [facility]. Unwilling to accept transfer secondary to Medicare E/VA insurance issues. Physician has accepted but the hospital has not Discussed with Dr. KayCT surgery at [facility]. He recommended IR for bronchial artery embolization Discussed with Dr. Perry. He recommended transfer to facility while stable. Right mainstem intubation. See bronchoscopy note. Dr. Perry willing to see patient emergent situation. Gallito Rogers MD Oct 27, 2016 11:42
[2016-10-27 11:57] LABS: MAGNESIUM 2.4 MG/DL (1.5-2.5); POTASSIUM 3.8 MEQ/L (3.5-5.1)
[2016-10-27] MEDS ORDERED: RESP: RACEPINEPHRINE 2.25% 0.5 ML NEB NEB ONE ×2 (12:00→18:30)
[2016-10-27 13:38] LABS: APTT (PATIENT) 26.6 SEC (24.3-30.1); PROTHROMBIN TIME - PATIENT 10.8 SEC (9.8-11.6)
[2016-10-27] MEDS ORDERED: methylPREDNISolone SOD SUCC 125 MG/2 ML VIAL IV PUSH SCH (14:00)
[2016-10-27] MEDS: methylPREDNISolone SOD SUCC 40 MG/1 ML VIAL IV SCH ×2 (14:00→21:27)
--- NOTE | 2016-10-27 16:19 | HHI.PR ---
Subjective Remarks 71 YOWM with COPD, Pl effusion.left lung mass, atelactesis Had Chest tube placed with some re expansion of left lung Was omaira for bronch today Pt started having large hemoptysis Emergentaly intubated Hemoptysis controlled Cytology pending CTS evaluated pt, plans to tr to [facility] On AC, sedated Had small amount of hemoptysis. better with Racemic epi nebs Objective Vital Signs Vital Signs Date Time Temp Pulse Resp B/P Pulse Ox O2 Delivery O2 Flow Rate FiO2 10/27/16 15:12 99 40 10/27/16 12:09 97 40 10/27/16 09:02 99 40 10/27/16 08:00 40 10/27/16 08:00 98.0 59 16 120/63 97 10/27/16 07:00 57 10/27/16 04:08 97 40 10/27/16 04:00 40 10/27/16 04:00 65 10/27/16 04:00 99.3 65 21 122/64 97 10/27/16 02:00 65 10/27/16 00:05 97 40 10/27/16 00:00 40 10/27/16 00:00 98.9 66 18 112/59 97 10/27/16 00:00 66 10/26/16 22:00 78 10/26/16 20:50 97 40 10/26/16 20:00 40 10/26/16 20:00 98.8 87 19 133/73 96 10/26/16 20:00 87 10/26/16 18:00 101 10/26/16 17:19 96 40 I/O 10/26/16 10/26/16 10/26/16 10/27/16 10/27/16 10/27/16 07:00 15:00 23:00 07:00 15:00 23:00 Intake Total 920 ml 1560 ml 1027 ml 855 ml Output Total 400 ml 800 ml 725 ml 220 ml Balance 520 ml 760 ml 302 ml 635 ml Intake Oral 0 ml 0 ml IV Total 920 ml 1560 ml 769 ml 595 ml Tube Feeding 158 ml 210 ml Other 100 ml 50 ml Output Urine Total 400 ml 800 ml 525 ml 200 ml Chest Tube Drainage Total 0 ml 200 ml 20 ml # Bowel Movements 0 0 1 1 Result Diagram: 10/27/16 1105 10/27/16 1105 Objective Remarks GENERAL:WBWn WM , mild sob SKIN: Warm and dry. HEAD: Normocephalic. EYES: No scleral icterus. No injection or drainage. NECK: Supple, trachea midline. No JVD or lymphadenopathy. CARDIOVASCULAR: Regular rate and rhythm without murmurs, gallops, or rubs. RESPIRATORY: Breath sounds equal bilaterally. No accessory muscle use. Left chest tube draining Decreased BS left GASTROINTESTINAL: Abdomen soft, non-tender, nondistended. MUSCULOSKELETAL: No cyanosis, or edema. BACK: Nontender without obvious deformity. No CVA tenderness. A/P Assessment and Plan Left lung mass Atelactesis LargeHemoptysis COPD Pl effusion, s/p chest tube VDRF PLAN: Vent Support Sedation with fenatnyl and Diprivan. Racemic epi Nebs prn Chest tube to suction Cont abx Will check cytology of bronchial wash, DW Son at BS Plans for tr to [facility] per CTS Valeriy Wilkins MD Oct 27, 2016 16:19
[2016-10-27] MEDS ORDERED: ROCURONIUM INJ 100 MG/10 ML VIAL IV ONE (19:15)
[2016-10-27] MEDS ORDERED: EPINEPHrine HCL (1:10,000) 1 MG/10 ML SYRINGE ONE (19:27)
[2016-10-27] MEDS ORDERED: RESP: LIDOCAINE HCL 2% 2 ML NEB NEB ONE (19:45)
[2016-10-27] MEDS ORDERED: KETAMINE HCL 500 MG/5 ML VIAL IV PUSH ONE (19:45)
[2016-10-27] MEDS ORDERED: MIDAZOLAM HCL 2 MG/2 ML VIAL IV PUSH ONE (19:45)
[2016-10-27] MEDS ORDERED: fentaNYL DRIP 250 ML IV SCH (20:45)
[2016-10-27] MEDS ORDERED: CISATRACURIUM BESYLATE 20 MG/10 ML VIAL IVP ONE (20:45)
--- NOTE | 2016-10-27 21:12 | PD.PROCEDR ---
Procedure Note Procedure DATE: 10/27/2016 ICU bronchoscopy procedure note: Flexible fiberoptic bronchoscopy INDICATION: Hemoptysis/known left mainstem mass/thrombus CONSENT Informed consent for procedure was obtained from son. DESCRIPTION OF THE PROCEDURE Patient's ventilator was set with an FiO2 100%. Prior to procedure procedure, patient received nebulized racemic epinephrine 0.5% along with nebulized lidocaine 2%. Sedation achieved on propofol drip at 50 mcg/kg/m and received 2 mg Versed and 100 mg ketamine. The flexible bronchoscope was inserted into the 8.0 ET tube. Gross blood/clot was noted at the end of the ET tube. This was suctioned with sterile saline. The trachea reveal no lesions normal mucosa. The aisha was sharp. The left mainstem bronchus revealed a large clot right at the aisha. The right mainstem bronchus was VAC. The right upper lobe/ middle lobe and lower revealed copious amounts of bloody secretions. These were lavaged copiously with sterile saline. The conus was normal. I went back to the left mainstem bronchus and gave 2 cc of 1/10,000 epinephrine with active frothy bleeding. Decision was made to advance the ET tube to 30 cm into the right mainstem. Able to directly visualize right upper lobe/middle lobe and lower lobes through the end of the ET tube. Patient maintain saturations of 100 % throughout the entire procedure. ESTIMATED BLOOD LOSS: 400 cc of lavaged saline/bloody secretions COMPLICATIONS: No apparent complications. STAT chest x-ray showed ET tube in right mainstem Gallito Rogers MD Oct 27, 2016 21:12
[2016-10-27] MEDS: MIDAZOLAM 100 MG/ML INJ 100 ML IV SCH (21:18)
--- NOTE | 2016-10-27 21:31 | RADRPT ---
EXAM DATE/TIME: 10/27/2016 20:21 [facility] COMPARISON: CHEST SINGLE AP, October 27, 2016, 2:59. CT THORAX W CONTRAST, October 24, 2016, 8:40. INDICATIONS : Bronch MEDICAL HISTORY : Hypertension. Cardiovascular disease SURGICAL HISTORY : None. ENCOUNTER: Subsequent ACUITY: 1 week PAIN SCORE: Non-responsive. LOCATION: Bilateral chest FINDINGS: There is complete opacification of the left hemithorax, unchanged from earlier exam. Endotracheal tub e tip is in the proximal right mainstem bronchus. NG is seen entering the stomach. There is mild righ t basilar airspace disease similar to earlier exam. CONCLUSION: 1. Endotracheal tube tip in right mainstem bronchus. Stable opacification of left hemithorax due to left lung collapse and left effusion. Stable right bas ilar airspace disease. No pneumothorax. Ken Crandall MD on October 27, 2016 at 21:27 Board Certified Radiologist. This report was verified electronically.
[2016-10-27] MEDS: CISATRACURIUM INJ 100 MG in SODIUM CHLOR 0.9% 250 ML INJ 240 ML IV SCH (21:47)
[2016-10-27 22:00] LABS: BLOOD GAS CARBOXYHEMOGLOBIN 1.3 % (0-4); BLOOD GAS HCO3 31 mmol/L (22-26); BLOOD GAS METHEMOGLOBIN 1.1 % (0-2); BLOOD GAS O2 HGB SATURATION 98 % (90-100); BLOOD GAS PCO2 50 mmHg (38-42); BLOOD GAS PO2 262 mmHg (61-120); CRITICAL VALUE NO; OXYGEN DEVICE VENTILATOR; TEMP CORR TO 98.6
[2016-10-27 22:01] LABS: DRAW SITE RT RADIAL; FIO2 100 %; NUMBER OF ARTERIAL PUNCTURES 1; STAT NO; ULNAR PULSE PRESENT; VENT SETTINGS PRVC
[2016-10-27 22:13] LABS: HEMATOCRIT 25.6 % (39.0-51.0); MEAN CELL VOLUME 86.6 FL (80.0-100.0); MEAN CORPUSCULAR HEMOGLOBIN 29.9 PG (27.0-34.0); MEAN CORPUSCULAR HGB CONC 34.6 % (32.0-36.0); PLATELET COUNT 337 TH/MM3 (150-450); RED BLOOD COUNT 2.96 MIL/MM3 (4.50-5.90); RED CELL DISTRIBUTION WIDTH 14.8 % (11.6-17.2); REVIEW FLAG FINAL; WHITE BLOOD COUNT 10.1 TH/MM3 (4.0-11.0)
[2016-10-27] MEDS ORDERED: PROTHROMBIN COMPLEX CONC INJ 2,000 UNITS in SYRINGE/BAG 1 EA IV ONE (23:00)
[2016-10-28] VITALS (18 sets, daily range): BP systolic 98–152; BP diastolic 55–74; PULSE 53–67; RESP 14–16; TEMP 98.4–99.1; O2SAT 96–100
[2016-10-28] MEDS: CHLORHEXIDINE 0.12% (ORAL KIT) 15 ML CUP MT SCH ×3 (03:23→20:00)
[2016-10-28] MEDS: CHLORHEXIDINE GLUCONATE 2 % 1 PACK (2 CLOTHS) TOP SCH (04:00)
--- NOTE | 2016-10-28 04:30 | RADRPT ---
EXAM DATE/TIME: 10/28/2016 03:58 [facility] COMPARISON: CHEST SINGLE AP, October 27, 2016, 20:21. INDICATIONS : Difficulty breathing. Evaluate left side effusion. MEDICAL HISTORY : Cardiovascular disease. Hypertension. SURGICAL HISTORY : None. ENCOUNTER: Subsequent ACUITY: 1 week PAIN SCORE: Non-responsive. LOCATION: Bilateral chest FINDINGS: There is complete opacification of the left hemithorax as before. A moderate right effusion is suspec mars. Endotracheal tube tip at the expected location of the right main stem bronchus. NG tube side-por t just beyond the esophagogastric junction. CONCLUSION: Stable appearance of the chest. Endotracheal tube tip at the expected location of the right mainstem bronchus. Marcin Guthrie MD on October 28, 2016 at 4:28 Board Certified Radiologist. This report was verified electronically.
[2016-10-28] MEDS: PROPOFOL 1000 MG/100 ML INJ 100 ML IV SCH ×3 (04:37→19:14)
[2016-10-28] MEDS: methylPREDNISolone SOD SUCC 40 MG/1 ML VIAL IV SCH ×3 (04:37→20:17)
[2016-10-28] MEDS: PIPERACIL-TAZO 4.5 GM PREMIX 100 ML IV SCH ×3 (04:37→18:01)
[2016-10-28] MEDS: RESP: ALBUTEROL 2.5 MG/IPRATROPIUM 0.5 MG NEB (SCH) NEB ×4 (05:14→20:30)
[2016-10-28 08:01] LABS: AUTOMATED NEUTROPHIL # 9.1 TH/MM3 (1.8-7.7); BASOPHIL # 0.1 TH/MM3 (0-0.2); EOSINOPHIL # 0.1 TH/MM3 (0-0.4); EOSINOPHIL % 1.2 % (0.0-4.0); HEMATOCRIT 26.9 % (39.0-51.0); HEMO FLAGS DIFF FINAL; LYMPHOCYTE # 0.8 TH/MM3 (1.0-4.8); MEAN CELL VOLUME 87.1 FL (80.0-100.0); MEAN CORPUSCULAR HEMOGLOBIN 29.1 PG (27.0-34.0); MEAN CORPUSCULAR HGB CONC 33.4 % (32.0-36.0); MONO % 6.6 % (0.0-8.0); NEUT % 84.2 % (16.0-70.0); PLATELET COUNT 339 TH/MM3 (150-450); RED BLOOD COUNT 3.09 MIL/MM3 (4.50-5.90); RED CELL DISTRIBUTION WIDTH 14.7 % (11.6-17.2); WHITE BLOOD COUNT 10.8 TH/MM3 (4.0-11.0)
[2016-10-28 08:32] LABS: BICARBONATE 32.1 MEQ/L (21.0-32.0); MAGNESIUM 2.3 MG/DL (1.5-2.5); POTASSIUM 3.4 MEQ/L (3.5-5.1)
[2016-10-28 08:55] LABS: CALCIUM-PROTEIN CORRECTED 8.8 MG/DL (8.5-10.1)
[2016-10-28] MEDS: DOCUSATE SODIUM 100 MG CAP PO SCH ×2 (09:00→20:17)
[2016-10-28] MEDS: PHENYTOIN SODIUM 100 MG CAP PO SCH ×2 (09:42→20:17)
[2016-10-28] MEDS: PANTOPRAZOLE SODIUM 40 MG VIAL IV SCH (09:42)
[2016-10-28] MEDS: POLYETHYLENE GLYCOL 17 GM PKG PO SCH (09:42)
[2016-10-28] MEDS: SENNOSIDES SYRUP 8.8 MG/5 ML CUP PO SCH (09:42)
[2016-10-28] MEDS: ATENOLOL 25 MG TAB PO SCH ×2 (09:44→20:17)
[2016-10-28] MEDS: SODIUM CHLORIDE 0.9% FLUSH 5 ML FLUSH IVF SCH ×2 (09:45→20:17)
[2016-10-28] MEDS: CISATRACURIUM INJ 100 MG in SODIUM CHLOR 0.9% 250 ML INJ 240 ML IV SCH ×2 (11:14→22:02)
[2016-10-28] MEDS: fentaNYL DRIP 250 ML IV SCH (11:22)
--- NOTE | 2016-10-28 12:48 | MB ---
cc: VELVET COLBERT DATE OF CONSULTATION: 10/25/2016 DATE OF : 1945 HISTORY OF PRESENT ILLNESS A 71-year-old male, MS patient, presented to the emergency room with complaint of cough and shortness of breath for a couple of days. However, per the son he had been off and on vomiting, coughing up some blood over a couple of months. They tried to get into the [facility] and could not get in. Sometimes he coughs up clots or often is just streaks in his mucus. Most of the information was obtained from the chart and from the patient's son. The patient was admitted to the ICU. They did CT angiography to rule out PE. had complete opacification of the left lung and a nodularity central lesion or mucous plug suggestive of collapse of the left lung and a large effusion. Negative for pulmonary emboli. A bronchoscopy was recommended. The patient underwent placement of a left chest tube, drained about 500 cc of brown-tinged pleural fluid. Pleural fluid at this time showed no fungal. A Gram stain was negative. No AFB. He then underwent bronchoscopy on October 23 for emergent. During the bronchoscopy there apparently was a lot of blood removed from the trachea. There was a mass obstructing the left lung and a large clot. Pathology is still pending. The initial pathology for the pleural fluid was negative for malignancy. The patient stayed intubated. He currently remains intubated on a ventilator with assist control mode, 40% FIO2, on propofol and fentanyl sedation. We were consulted to evaluate for possible thoracic surgery regarding left lung mass with left main bronchus obstruction. The films have been evaluated by Dr. Velvet Colbert at this time. PAST MEDICAL HISTORY 1. Hypertension. 2. Enlarged prostate. 3. Seizure disorder. PAST SURGICAL HISTORY Tonsillectomy. ALLERGIES No known allergies. MEDICATIONS Home medications include: 1. Terazosin. 2. Atenolol. 3. Simvastatin. 4. Dilantin. FAMILY HISTORY Noncontributory. SOCIAL HISTORY . Lives alone. History of smoking, now smokes cigars. 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 No alcohol. REVIEW OF SYSTEMS Unobtainable. PHYSICAL EXAMINATION VITAL SIGNS: Blood pressure 110/60, heart rate 60, afebrile. O2 sat 100 on 40%. GENERAL: The patient is sedated of the ventilator. HEENT: Pupils are approximately 2-3 mm, midline, sluggish. NECK: Supple. No JVD. Orally intubated. HEART: Heart sounds S1, S2. Regular rate and rhythm. No rubs, murmurs or gallops. LUNGS: Absent breath sounds on the left. Coarse crackles right upper lobe. No significant blood from the ET tube. Left chest tube in place with some serous drainage which has drained minimally in the last 24 hours. ABDOMEN: Soft. He has an OG tube in place. Positive bowel sounds. EXTREMITIES: No cyanosis, clubbing or edema. LABORATORY Hemoglobin 10, hematocrit 30, white cell count 10, platelet count 330. Sodium 143, potassium 4.4, BUN 15, creatinine 0.98. Bronchial washings: No AFB, no fungal, no growth in the bronchial washing at that this time. Stool hemoccult positive. IMAGING Repeat chest x-ray showed stable chest x-ray and complete opacification of the left hemithorax secondary to pleural effusion along with volume loss and left lung consolidation. No further pneumothorax noted. IMPRESSION This is a 71-year-old male with a large left bronchial obstructing mass. We have been consulted to evaluate for thoracic surgery. PLAN The films have been evaluated by Dr. Velvet Colbert and has contacted [facility] pulmonary medicine and spoke with one of a fellows. The plan is for them to evaluate for possible transfer for placement of a left bronchial stent. Further planning as per Dr. Velvet Colbert. The patient is currently followed by the cattle producers for acute respiratory failure, pleural effusion, status post chest tube, and also hemoptysis. Dictated by: MAGNUS Chatman-Michael MD GAURAV Marquez/GANESH /5:04 PM /12:46 PM
--- NOTE | 2016-10-28 13:43 | PD.CAR.PN ---
CVT Progress Note Subjective/Hospital Course: 71-year-old male most of info recieved from chart and son at bedside , comes in complaining of cough and shortness of breath, past 2 days he has been coughing up blood., occasionally passes clots, but often is just streaks in his mucus. denied any chest pain, but says he is very short of breath when walking. He says he had an episode earlier in the month and he tried to come to the emergency department, but was frustrated with the wait and left. He says it went away, but has come back. He has smoked cigarettes, but quit several years ago. He does say that he currently smokes a pipe. He denied any fever or chills. He was not on any blood thinners, and this has never happened to him before. CT angio revealed Complete opacification of the left lung with central line this abrupt narrowing and nodularity central lesion or mucous plug suggested with collapse of the left lung a large effusion. 10/22 chest tube placed for large left pleural effusion 10/23: scheduled for bronchoscopy, was intubated , had significant hemoptysis , apparently there was a mass obstructing the left lung and a large clot. 10/25 consultation done, Dr Colbert spoke with pulm medicine fellow at [facility] to eval for transfer for left bronchial stent placement 10/27 had emergent bedside bronch 2 hemoptysis 10/28 still waiting on transfer to [facility], apparently [facility] and await financial eval for transfer per Case management remains intubated on vent critically ill Objective: GENERAL: / orally intubated, now on paralytics, propofol, fentanly and versed SKIN: Warm and dry./ color pale HEAD: Normocephalic. EYES: No scleral icterus. No injection or drainage. NECK: Supple, trachea midline. No JVD or lymphadenopathy. CARDIOVASCULAR: Regular rate and rhythm 1/6 sm no gallops, or rubs. RESPIRATORY: no breath sounds on left, chest tube to wall suction , no air leak drained 10 ml/ 12 hrs GASTROINTESTINAL: Abdomen soft, non-tender, nondistended. MUSCULOSKELETAL: No cyanosis, or edema. BACK: Nontender without obvious deformity. No CVA tenderness. Vital Signs Date Time Temp Pulse Resp B/P Pulse Ox O2 Delivery O2 Flow Rate FiO2 10/28/16 12:15 98 50 10/28/16 12:00 98.5 56 14 98/55 99 10/28/16 12:00 56 10/28/16 12:00 50 10/28/16 10:00 57 10/28/16 08:22 99 50 10/28/16 08:00 55 10/28/16 08:00 99.1 55 16 121/62 98 10/28/16 08:00 50 10/28/16 06:00 60 10/28/16 05:10 98 50 10/28/16 04:00 98.7 53 16 123/60 100 10/28/16 04:00 53 10/28/16 04:00 60 10/28/16 02:00 59 10/28/16 00:00 60 10/28/16 00:00 54 10/28/16 00:00 98.4 54 16 152/74 100 10/27/16 23:20 100 60 10/27/16 22:00 53 10/27/16 21:10 100 100 10/27/16 20:00 100 100 10/27/16 20:00 100 10/27/16 20:00 98.3 59 16 128/69 100 10/27/16 20:00 59 10/27/16 20:00 100 100 10/27/16 18:00 58 10/27/16 16:00 98.6 71 20 144/70 97 10/27/16 16:00 71 10/27/16 16:00 40 10/27/16 15:12 99 40 10/27/16 14:00 59 Labs: Laboratory Tests Test 10/28/16 07:41 White Blood Count 10.8 TH/MM3 (4.0-11.0) Red Blood Count 3.09 MIL/MM3 (4.50-5.90) Hemoglobin 9.0 GM/DL (13.0-17.0) Hematocrit 26.9 % (39.0-51.0) Mean Corpuscular Volume 87.1 FL (80.0-100.0) Mean Corpuscular Hemoglobin 29.1 PG (27.0-34.0) Mean Corpuscular Hemoglobin 33.4 % Concent (32.0-36.0) Red Cell Distribution Width 14.7 % (11.6-17.2) Platelet Count 339 TH/MM3 (150-450) Mean Platelet Volume 6.8 FL (7.0-11.0) Neutrophils (%) (Auto) 84.2 % (16.0-70.0) Lymphocytes (%) (Auto) 7.0 % (9.0-44.0) Monocytes (%) (Auto) 6.6 % (0.0-8.0) Eosinophils (%) (Auto) 1.2 % (0.0-4.0) Basophils (%) (Auto) 1.0 % (0.0-2.0) Neutrophils # (Auto) 9.1 TH/MM3 (1.8-7.7) Lymphocytes # (Auto) 0.8 TH/MM3 (1.0-4.8) Monocytes # (Auto) 0.7 TH/MM3 (0-0.9) Eosinophils # (Auto) 0.1 TH/MM3 (0-0.4) Basophils # (Auto) 0.1 TH/MM3 (0-0.2) CBC Comment DIFF FINAL Differential Comment Sodium Level 146 MEQ/L (136-145) Potassium Level 3.4 MEQ/L (3.5-5.1) Chloride Level 109 MEQ/L (98-107) Carbon Dioxide Level 32.1 MEQ/L (21.0-32.0) Anion Gap 5 MEQ/L (5-15) Blood Urea Nitrogen 21 MG/DL (7-18) Creatinine 0.86 MG/DL (0.60-1.30) Estimat Glomerular Filtration 88 ML/MIN (>89) Rate Random Glucose 165 MG/DL (74-106) Calcium Level 7.4 MG/DL (8.5-10.1) Protein Corrected Calcium 8.8 MG/DL (8.5-10.1) Phosphorus Level 1.6 MG/DL (2.5-4.9) Magnesium Level 2.3 MG/DL (1.5-2.5) Total Protein 4.7 GM/DL (6.4-8.2) Result Diagram: 10/28/1674010/28/16740 Telemetry: NSR (1) Hemoptysis (2) Mass of left lung Plan: complete obstruction of left bronchus will need bronchial stent transfer pending acceptance by insurance from [place] to transfer to [facility] (3) Pneumothorax (4) ventilator dependent resp failure Problem Qualifiers (1) Pneumothorax: Qualified Code: J93.83 - Other pneumothorax Crystal Ibarra Oct 28, 2016 13:43
--- NOTE | 2016-10-28 15:42 | HHI.CCPN ---
Subjective Remarks/Hospital Course 71-year-old male comes in complaining of cough and shortness of breath. He says for the past 2 days he has been coughing up blood. He occasionally passes clots, but often is just streaks in his mucus. He denies any chest pain, but says he is very short of breath when walking. He says he had an episode earlier in the month and he tried to come to the emergency department, but was frustrated with the wait and left. He says it went away, but has come back. He has smoked cigarettes, but quit several years ago. He does say that he currently smokes a pipe. He denies any fever or chills. He is not on any blood thinners, and this has never happened to him before. CT angio revealed Complete opacification of the left lung with central line this abrupt narrowing and nodularity central lesion or mucous plug suggested with collapse of the left lung a large effusion. 2/1: Called to see patient secondary to hemoptysis. Received 3 racemic epinephrine but continued to have hemoptysis. Emergently intubated using 40 mg etomidate with an 8.0 ET tube with glide scope. Dr. Wilkins at bedside to perform bronchoscopy currently. 22: Emergently intubated yesterday due to significant hemoptysis. Dr. Wilkins performed bronchoscopy at the bedside- lot of blood was removed from the trachea , which was suctioned out After repeated suctioning, lavage, and epinephrine used, bleeding was controlled. There was a mass obstructing the left lung and a large clot. A CT chest done today was discussed with Dr. Perry, left lung opacification is predominantly atelectatic lung, unless on fluid. Small apical pneumothorax, chest tube in good position. Dr. Wilkins planning for repeat bronchoscopy and biopsy today at 4 PM, with possible biopsy 2/3: Resting in bed. Chest -40 cm H2O with minimal drainage. No more bleeding. Spontaneous breathing trials ordered for today. Cytology still pending. 24: Afebrile. No bowel movement. Arousable on Ventolin falls commands. No drainage from chest tube. No more hemoptysis noted. Spontaneous breathing trials scheduled for today. Subjective 2/5: Afebrile. To balance overnight. Increasing hemoptysis noted from ET tube. Continue racemic epi 2 now. No plans for extubation until transfer. Waiting for "financials" prior to transfer to [facility] for evaluation by interventional pulmonology/CT surgery. 10/28: Remains sedated, orally intubated on mechanical ventilation. On neuromuscular blockade with Nimbex. Awaiting transfer to the [facility] in [place]. Objective Vital Signs Date Time Temp Pulse Resp B/P Pulse Ox O2 Delivery O2 Flow Rate FiO2 10/28/16 14:00 58 10/28/16 12:15 98 50 10/28/16 12:00 98.5 14 98/55 Intake and Output 10/27/16 10/27/16 10/28/16 08:00 16:00 00:00 Intake Total 855 ml 980 ml 2101 ml Output Total 220 ml 565 ml 575 ml Balance 635 ml 415 ml 1526 ml Result Diagram: 10/28/16 0741 10/28/16 0741 Other Results Laboratory Tests Test 10/27/16 10/27/16 10/27/16 10/28/16 20:21 21:34 22:08 07:41 Blood Type B POSITIVE B POSITIVE Blood Gas Puncture Site RT RADIAL Blood Gas Patient Temperature 98.6 Blood Gas HCO3 31 mmol/L Blood Gas Base Excess 6.0 mmol/L Blood Gas Oxygen Saturation 98 % Arterial Blood pH 7.40 Arterial Blood Partial 50 mmHg Pressure CO2 Arterial Blood Partial 262 mmHg Pressure O2 Arterial Blood Oxygen Content 13.0 Vol % Arterial Blood 1.3 % Carboxyhemoglobin Arterial Blood Methemoglobin 1.1 % Blood Gas Hemoglobin 9.0 G/DL Oxygen Delivery Device VENTILATOR Blood Gas Ventilator Setting PRVC Blood Gas Inspired Oxygen 100 % White Blood Count 10.1 TH/MM3 10.8 TH/MM3 Red Blood Count 2.96 MIL/MM3 3.09 MIL/MM3 Hemoglobin 8.9 GM/DL 9.0 GM/DL Hematocrit 25.6 % 26.9 % Mean Corpuscular Volume 86.6 FL 87.1 FL Mean Corpuscular Hemoglobin 29.9 PG 29.1 PG Mean Corpuscular Hemoglobin 34.6 % 33.4 % Concent Red Cell Distribution Width 14.8 % 14.7 % Platelet Count 337 TH/MM3 339 TH/MM3 Mean Platelet Volume 6.8 FL 6.8 FL Antibody Screen NEGATIVE Neutrophils (%) (Auto) 84.2 % Lymphocytes (%) (Auto) 7.0 % Monocytes (%) (Auto) 6.6 % Eosinophils (%) (Auto) 1.2 % Basophils (%) (Auto) 1.0 % Neutrophils # (Auto) 9.1 TH/MM3 Lymphocytes # (Auto) 0.8 TH/MM3 Monocytes # (Auto) 0.7 TH/MM3 Eosinophils # (Auto) 0.1 TH/MM3 Basophils # (Auto) 0.1 TH/MM3 CBC Comment DIFF FINAL Differential Comment Sodium Level 146 MEQ/L Potassium Level 3.4 MEQ/L Chloride Level 109 MEQ/L Carbon Dioxide Level 32.1 MEQ/L Anion Gap 5 MEQ/L Blood Urea Nitrogen 21 MG/DL Creatinine 0.86 MG/DL Estimat Glomerular Filtration 88 ML/MIN Rate Random Glucose 165 MG/DL Calcium Level 7.4 MG/DL Protein Corrected Calcium 8.8 MG/DL Phosphorus Level 1.6 MG/DL Magnesium Level 2.3 MG/DL Total Protein 4.7 GM/DL Imaging Last Impressions Chest X-Ray 10/27/16 0600 Signed Impressions: Service Date/Time: Thursday, October 27, 2016 02:59 - CONCLUSION: Stable chest x-ray with complete opacification of the left hemithorax likely secondary to pleural effusion along with volume loss and consolidation. There is also stable right basilar opacity. Paul Booker MD Chest CT 10/24/16 0000 Signed Impressions: Service Date/Time: October 08:40 - CONCLUSION: 1. Left lung collapse/consolidation similar to the prior study with cut off at the distal left mainstem bronchus again suggesting either mucus plugging or endobronchial mass. 2. Left pleural effusion slightly decreased. Hydropneumothorax now noted with new left sided pleural air-fluid level. No discrete septations or loculations identified. 3. Increase in patchy right lung atelectasis versus mild consolidation. 4. Diffusely mildly dilated fluid-filled esophagus. Jose Cloud MD CT Angiography 10/21/16 0820 Signed Impressions: Service Date/Time: Friday, October 21, 2016 09:13 - CONCLUSION: Complete opacification of the left lung with central line this abrupt narrowing and nodularity central lesion or mucous plug suggested with collapse of the left lung a large effusion. Negative for pulmonary. Jonathan Farrell MD Objective Remarks GENERAL/NEURO: 71-year-old male, intubated sedated. Moves all extremities on sedation hold SKIN: Warm and dry. No rash HEAD: Normocephalic. EYES: No scleral icterus. No injection or drainage. ENT: Orotracheally intubated, today with scant bloody secretions NECK: Supple, trachea midline. No JVD or lymphadenopathy. CARDIOVASCULAR: Bradycardic, RRR. S1, S2. No S4. Without murmurs, gallops, or rubs. RESPIRATORY: Absent breath sounds left side. Coarse crackles appreciated right lobe. No significant blood from ETT. Left chest tube clean dry and intact. With no output GASTROINTESTINAL: Abdomen soft, non-tender, nondistended. Hypoactive bowel sounds. MUSCULOSKELETAL: Without significant peripheral edema. BACK: Nontender without obvious deformity. No CVA tenderness. Procedures chest tube placement A/P Problem List: (1) Acute respiratory failure ICD Code: J96.00 Status: Acute (2) Pleural effusion ICD Code: J90 Status: Acute (3) Hypoxia ICD Code: R09.02 Status: Acute (4) Bronchiolar obstruction ICD Code: J98.09 Status: Acute (5) Mass of left lung ICD Code: R91.8 Status: Acute (6) Hemoptysis ICD Code: R04.2 Status: Acute Assessment and Plan Neuro/Psych: History of seizures Currently on propofol/fentanyl drips for sedation/analgesia while intubated Goal RASS -2. Daily sedation vacation Seizure precautions On Dilantin 300 twice a day. Dilantin level 8.8 CV: Sinus tachycardia History of hypertension History dyslipidemia Currently on atenolol 25 mg by mouth twice a day. Holding simvastatin. Resume when clinically indicated Resp: Acute respiratory failure Hemoptysis Left pleural effusion, small pneumothorax status post chest tube L main bronchus from obstruction from probable lung CA ACV ventilation. 16/500/5/40 Ventilator bundle Bronchodilator therapy every 6 hours and as needed Chest tube - 20 Armenian - -40 cm H2O. Bronchoscopy auscultated be revealed active bleeding left main bronchus stopped status post epinephrine 10/23 CT of the chest today 10/24/16 shows that the opacification is predominantly collapsed lung, effusion is small to moderate with loculation, very small apical pneumothorax Chest x-ray 10/26 shows resolution pneumothorax. Heme opacification the left lung. Follow-up ABG/chest x-ray post intubation Emergent bronchoscopy for hemoptysis by Dr. Wilkins/pulmonology 10/23, repeat bronchoscopy and biopsy 10/24 Hemoptysis: Likely sources left main bronchus mass CT surgery valuation Dr. Colbert. Currently with planned transfer to [facility] for evaluation of left main bronchus mass once financials approved per secondary social studies teacher GI: Hypoalbuminemia Continue Jevity 1.5 goal 50 cc an hour OG tube replaced Protonix for GI prophylaxis Colace/as needed Senokot for bowel regimen : BPH Lipscomb will be placed for accurate I's and O's in a critically ill patient On Terazosin at home. Currently on hold Endo: Sliding-scale insulin if indicated Renal: Creatinine currently within normal limits. Monitor urine output. Accurate I's and O's Heme: Leukocytosis Normocytic anemia Monitor CBC ID: Klebsiella pneumonia Currently #8 Zosyn/ Discontinued Zithromax 10/27 (day 7) Pertinent cultures 10/22 - bronchoscopy - no growth Sputum - Klebsiella pneumonia Blood cultures 2 - no growth FEN: Replacing electrolytes as clinically indicated MSK: PT evaluate and treat Access - Utilize peripheral IV. Central line if indicated Prophylaxis - GI - Protonix - DVT- SCD/pharmacological prophylaxis contraindicated with hemoptysis Critical Care: The total critical care time was 35 minutes. Time to perform other separately billable procedures was not included in the critical care time. Dr. Colbert requested transferred to [facility] for evaluation of left main bronchus lesion. On 10/28, approximately 1900 hours, patient with gross hemoptysis. Received racemic epinephrine 0.5% 2. Continue to have hemoptysis and decision was made to perform fiberoptic bronchoscopy. Upon direct visualization, large fresh clot located near the aisha by the left main bronchus. This was with 2 cc of 1 /10,000 epinephrine with more bleeding noted. Decision was made to intubate down right mainstem which was performed. Irrigation with multiple aliquots of sterile saline to clear right lung. Saturations remain 100% throughout the procedure. On bronchoscopies, able to visualize right upper lobe, middle lobe and lower lobe through ET tube. Chest x-ray reviewed post procedure showed positioning a tube and right mainstem. Discussed with Dr. Early and Dr. Villanueva at [facility]. Unwilling to accept transfer secondary to CT surgery available at [facility]. Patient discussed with Dr. Motta at [facility]/[place]. Unwilling to accept patient secondary to one bed available and transfer coronary unavailable until a.m. 10/28 Discussed with Briana. Unwilling to accept transfer secondary to Medicare E/VA insurance issues. Physician has accepted but the hospital has not Discussed with Dr. Jones surgery at [facility]. He recommended IR for bronchial artery embolization Discussed with Dr. Perry. He recommended transfer to facility while stable. Right mainstem intubation Dr. Perry willing to see patient emergent situation. Time spent on critical care excluding procedures 40 minutes Manuel Banerjee MD Oct 28, 2016 15:42
--- NOTE | 2016-10-28 19:05 | HHI.PR ---
Subjective Remarks 71 YOWM with COPD, Pl effusion.left lung mass, atelactesis Had Chest tube placed with some re expansion of left lung Was omaira for bronch today Pt started having large hemoptysis Emergentaly intubated Hemoptysis controlled Cytology negative CTS evaluated pt, plans to tr to [facility] On AC, sedated, on Nimbex drip Had small amount of hemoptysis. better with Racemic epi nebs Accepted at [facility]. Objective Vital Signs Vital Signs Date Time Temp Pulse Resp B/P Pulse Ox O2 Delivery O2 Flow Rate FiO2 10/28/16 18:00 62 10/28/16 16:06 97 50 10/28/16 16:00 98.5 62 16 104/59 97 10/28/16 16:00 62 10/28/16 16:00 50 10/28/16 14:00 58 10/28/16 12:15 98 50 10/28/16 12:00 98.5 56 14 98/55 99 10/28/16 12:00 56 10/28/16 12:00 50 10/28/16 10:00 57 10/28/16 08:22 99 50 10/28/16 08:00 55 10/28/16 08:00 99.1 55 16 121/62 98 10/28/16 08:00 50 10/28/16 06:00 60 10/28/16 05:10 98 50 10/28/16 04:00 98.7 53 16 123/60 100 10/28/16 04:00 53 10/28/16 04:00 60 10/28/16 02:00 59 10/28/16 00:00 60 10/28/16 00:00 54 10/28/16 00:00 98.4 54 16 152/74 100 10/27/16 23:20 100 60 10/27/16 22:00 53 10/27/16 21:10 100 100 10/27/16 20:00 100 100 10/27/16 20:00 100 10/27/16 20:00 98.3 59 16 128/69 100 10/27/16 20:00 59 10/27/16 20:00 100 100 I/O 10/27/16 10/27/16 10/27/16 10/28/16 10/28/16 10/28/16 07:00 15:00 23:00 07:00 15:00 23:00 Intake Total 855 ml 980 ml 2101 ml 1219 ml 1587 ml Output Total 220 ml 565 ml 575 ml 260 ml 300 ml Balance 635 ml 415 ml 1526 ml 959 ml 1287 ml Intake Oral 0 ml IV Total 595 ml 480 ml 1751 ml 849 ml 1063 ml Tube Feeding 210 ml 500 ml 250 ml 270 ml 464 ml Other 50 ml 100 ml 100 ml 60 ml Output Urine Total 200 ml 550 ml 575 ml 250 ml 300 ml Chest Tube Drainage Total 20 ml 15 ml 10 ml # Bowel Movements 1 2 1 1 Result Diagram: 10/28/1674010/28/16740 Objective Remarks GENERAL:WBWn WM , mild sob SKIN: Warm and dry. HEAD: Normocephalic. EYES: No scleral icterus. No injection or drainage. NECK: Supple, trachea midline. No JVD or lymphadenopathy. CARDIOVASCULAR: Regular rate and rhythm without murmurs, gallops, or rubs. RESPIRATORY: Breath sounds equal bilaterally. No accessory muscle use. Left chest tube draining Decreased BS left GASTROINTESTINAL: Abdomen soft, non-tender, nondistended. MUSCULOSKELETAL: No cyanosis, or edema. BACK: Nontender without obvious deformity. No CVA tenderness. A/P Assessment and Plan Left lung mass Atelactesis LargeHemoptysis COPD Pl effusion, s/p chest tube VDRF PLAN: Vent Support Sedation with fenatnyl and Diprivan. Racemic epi Nebs prn Chest tube to suction Cont abx Tr to [facility] when bed avaiable Valeriy Wilkins MD Oct 28, 2016 19:05
[2016-10-28] MEDS: MIDAZOLAM 100 MG/ML INJ 100 ML IV SCH (19:14)
[2016-10-28 23:14] LABS: POTASSIUM 4.5 MEQ/L (3.5-5.1)
[2016-10-29] VITALS (18 sets, daily range): BP systolic 128–183; BP diastolic 65–87; PULSE 62–84; RESP 16; TEMP 98.9–99.8; O2SAT 91–99
[2016-10-29] MEDS: PIPERACIL-TAZO 4.5 GM PREMIX 100 ML IV SCH ×4 (00:02→17:45)
[2016-10-29] MEDS: RESP: ALBUTEROL 2.5 MG/IPRATROPIUM 0.5 MG NEB (SCH) NEB ×2 (03:57→08:21)
[2016-10-29] MEDS: CHLORHEXIDINE GLUCONATE 2 % 1 PACK (2 CLOTHS) TOP SCH (04:00)
[2016-10-29] MEDS: CISATRACURIUM INJ 100 MG in SODIUM CHLOR 0.9% 250 ML INJ 240 ML IV SCH ×3 (06:29→20:41)
[2016-10-29] MEDS: methylPREDNISolone SOD SUCC 40 MG/1 ML VIAL IV SCH ×2 (06:30→13:26)
[2016-10-29] MEDS: PANTOPRAZOLE SODIUM 40 MG VIAL IV SCH (07:31)
[2016-10-29] MEDS: POLYETHYLENE GLYCOL 17 GM PKG PO SCH (07:31)
[2016-10-29] MEDS: PHENYTOIN SODIUM 100 MG CAP PO SCH ×2 (07:31→20:41)
[2016-10-29] MEDS: SENNOSIDES SYRUP 8.8 MG/5 ML CUP PO SCH (07:31)
[2016-10-29] MEDS: DOCUSATE SODIUM 100 MG CAP PO SCH ×2 (07:33→20:40)
[2016-10-29] MEDS: CHLORHEXIDINE 0.12% (ORAL KIT) 15 ML CUP MT SCH ×2 (07:33→20:40)
[2016-10-29] MEDS: ATENOLOL 25 MG TAB PO SCH ×2 (07:33→20:40)
[2016-10-29] MEDS: SODIUM CHLORIDE 0.9% FLUSH 5 ML FLUSH IVF SCH ×2 (07:34→20:40)
[2016-10-29] MEDS: PROPOFOL 1000 MG/100 ML INJ 100 ML IV SCH (11:13)
--- NOTE | 2016-10-29 11:55 | PD.CAR.PN ---
CVT Progress Note Subjective/Hospital Course: 71-year-old male most of info recieved from chart and son at bedside , comes in complaining of cough and shortness of breath, past 2 days he has been coughing up blood., occasionally passes clots, but often is just streaks in his mucus. denied any chest pain, but says he is very short of breath when walking. He says he had an episode earlier in the month and he tried to come to the emergency department, but was frustrated with the wait and left. He says it went away, but has come back. He has smoked cigarettes, but quit several years ago. He does say that he currently smokes a pipe. He denied any fever or chills. He was not on any blood thinners, and this has never happened to him before. CT angio revealed Complete opacification of the left lung with central line this abrupt narrowing and nodularity central lesion or mucous plug suggested with collapse of the left lung a large effusion. 10/22 chest tube placed for large left pleural effusion 10/23: scheduled for bronchoscopy, was intubated , had significant hemoptysis , apparently there was a mass obstructing the left lung and a large clot. 10/25 consultation done, Dr Colbert spoke with pulm medicine fellow at [facility] to eval for transfer for left bronchial stent placement 10/27 had emergent bedside bronch 2 hemoptysis 10/28 still waiting on transfer to [facility], apparently [facility] is [facility] and await financial eval for transfer per Case management remains intubated on vent critically ill 10/29 remains critically ill, intubated and paralyzed on nimbex/ on vent FI02 40% pt has been accepted at [facility] in [place] waiting on bed placement continue full support at this time to be eval for left bronchial stent placement bronchial washing and pleural fluid no malignant cells no bronchial brushing noted Objective: GENERAL: on vent, paralyzed on nimbex SKIN: Warm and dry./ pale HEAD: Normocephalic. EYES: No scleral icterus. No injection or drainage. NECK: Supple, trachea midline. No JVD or lymphadenopathy. CARDIOVASCULAR: Regular rate and rhythm without murmurs, gallops, or rubs. general edema RESPIRATORY: no breath sounds on left chest tube to wall suction , minimal drainage GASTROINTESTINAL: Abdomen soft, non-tender, nondistended. MUSCULOSKELETAL: No cyanosis, or edema. BACK: Nontender without obvious deformity. No CVA tenderness. Vital Signs Date Time Temp Pulse Resp B/P Pulse Ox O2 Delivery O2 Flow Rate FiO2 10/29/16 10:00 66 10/29/16 08:22 93 40 10/29/16 08:00 72 10/29/16 08:00 99.3 72 16 151/72 94 10/29/16 08:00 50 10/29/16 06:00 62 10/29/16 04:31 97 40 10/29/16 04:00 50 10/29/16 04:00 99.8 64 16 151/75 99 10/29/16 04:00 62 10/29/16 02:00 62 10/29/16 01:27 98 40 10/29/16 00:00 63 10/29/16 00:00 99.5 63 16 138/67 99 10/29/16 00:00 50 10/28/16 22:20 97 50 10/28/16 22:00 67 10/28/16 20:30 98 50 10/28/16 20:00 50 10/28/16 20:00 66 10/28/16 20:00 98.9 66 16 131/64 96 10/28/16 18:00 62 10/28/16 16:06 97 50 10/28/16 16:00 98.5 62 16 104/59 97 10/28/16 16:00 62 10/28/16 16:00 50 10/28/16 14:00 58 10/28/16 12:15 98 50 10/28/16 12:00 98.5 56 14 98/55 99 10/28/16 12:00 56 10/28/16 12:00 50 Result Diagram: 10/28/16 0741 10/28/16 2224 (1) Hemoptysis (2) Mass of left lung Plan: complete obstruction of left bronchus will need bronchial stent accepted by [facility], await bed for transfer (3) Pneumothorax (4) ventilator dependent resp failure Problem Qualifiers (1) Pneumothorax: Qualified Code: J93.83 - Other pneumothorax Crystal Ibarra Oct 29, 2016 11:55
[2016-10-29] MEDS: fentaNYL DRIP 250 ML IV SCH (13:26)
--- NOTE | 2016-10-29 14:49 | HHI.CCPN ---
Subjective Remarks/Hospital Course 71-year-old male comes in complaining of cough and shortness of breath. He says for the past 2 days he has been coughing up blood. He occasionally passes clots, but often is just streaks in his mucus. He denies any chest pain, but says he is very short of breath when walking. He says he had an episode earlier in the month and he tried to come to the emergency department, but was frustrated with the wait and left. He says it went away, but has come back. He has smoked cigarettes, but quit several years ago. He does say that he currently smokes a pipe. He denies any fever or chills. He is not on any blood thinners, and this has never happened to him before. CT angio revealed Complete opacification of the left lung with central line this abrupt narrowing and nodularity central lesion or mucous plug suggested with collapse of the left lung a large effusion. 2: Called to see patient secondary to hemoptysis. Received 3 racemic epinephrine but continued to have hemoptysis. Emergently intubated using 40 mg etomidate with an 8.0 ET tube with glide scope. Dr. Wilkins at bedside to perform bronchoscopy currently. 22: Emergently intubated yesterday due to significant hemoptysis. Dr. Wilkins performed bronchoscopy at the bedside- lot of blood was removed from the trachea , which was suctioned out After repeated suctioning, lavage, and epinephrine used, bleeding was controlled. There was a mass obstructing the left lung and a large clot. A CT chest done today was discussed with Dr. Perry, left lung opacification is predominantly atelectatic lung, unless on fluid. Small apical pneumothorax, chest tube in good position. Dr. Wilkins planning for repeat bronchoscopy and biopsy today at 4 PM, with possible biopsy 2/3: Resting in bed. Chest -40 cm H2O with minimal drainage. No more bleeding. Spontaneous breathing trials ordered for today. Cytology still pending. 10/26: Afebrile. No bowel movement. Arousable on Ventolin falls commands. No drainage from chest tube. No more hemoptysis noted. Spontaneous breathing trials scheduled for today. 10/27: Afebrile. To balance overnight. Increasing hemoptysis noted from ET tube. Continue racemic epi 2 now. No plans for extubation until transfer. Waiting for "financials" prior to transfer to [facility] for evaluation by interventional pulmonology/CT surgery. 10/28: Remains sedated, orally intubated on mechanical ventilation. On neuromuscular blockade with Nimbex. Awaiting transfer to the [facility] in [place]. 10/29: Remains sedated, orally intubated on mechanical ventilation. On neuromuscular blockade with Nimbex. Awaiting transfer to the [facility] in [place]. Objective Vital Signs Date Time Temp Pulse Resp B/P Pulse Ox O2 Delivery O2 Flow Rate FiO2 10/29/16 12:19 95 40 10/29/16 10:00 66 10/29/16 08:00 99.3 16 151/72 Intake and Output 10/28/16 10/28/16 10/29/16 08:00 16:00 00:00 Intake Total 1219 ml 1587 ml 1114 ml Output Total 260 ml 300 ml 325 ml Balance 959 ml 1287 ml 789 ml Result Diagram: 10/28/16 0741 10/28/16 2224 Imaging Last Impressions Chest X-Ray 10/27/16 0600 Signed Impressions: Service Date/Time: Thursday, October 27, 2016 02:59 - CONCLUSION: Stable chest x-ray with complete opacification of the left hemithorax likely secondary to pleural effusion along with volume loss and consolidation. There is also stable right basilar opacity. Paul Booker MD Chest CT 10/24/16 0000 Signed Impressions: Service Date/Time: October 08:40 - CONCLUSION: 1. Left lung collapse/consolidation similar to the prior study with cut off at the distal left mainstem bronchus again suggesting either mucus plugging or endobronchial mass. 2. Left pleural effusion slightly decreased. Hydropneumothorax now noted with new left sided pleural air-fluid level. No discrete septations or loculations identified. 3. Increase in patchy right lung atelectasis versus mild consolidation. 4. Diffusely mildly dilated fluid-filled esophagus. Jose Cloud MD CT Angiography 10/21/16 0820 Signed Impressions: Service Date/Time: Friday, October 21, 2016 09:13 - CONCLUSION: Complete opacification of the left lung with central line this abrupt narrowing and nodularity central lesion or mucous plug suggested with collapse of the left lung a large effusion. Negative for pulmonary. Jonathan Stone, MD Objective Remarks GENERAL/NEURO: 71-year-old male, intubated sedated, on neuromuscular blockade SKIN: Warm and dry. No rash HEAD: Normocephalic. EYES: No scleral icterus. No injection or drainage. ENT: Orotracheally intubated, today with scant bloody secretions NECK: Supple, trachea midline. No JVD or lymphadenopathy. CARDIOVASCULAR: Bradycardic, RRR. S1, S2. No S4. Without murmurs, gallops, or rubs. RESPIRATORY: Absent breath sounds left side. Coarse crackles appreciated right lobe. No significant blood from ETT. Left chest tube clean dry and intact. With no output GASTROINTESTINAL: Abdomen soft, non-tender, nondistended. Hypoactive bowel sounds. MUSCULOSKELETAL: Without significant peripheral edema. BACK: Nontender without obvious deformity. No CVA tenderness. Procedures chest tube placement A/P Problem List: (1) Acute respiratory failure ICD Code: J96.00 Status: Acute (2) Pleural effusion ICD Code: J90 Status: Acute (3) Hypoxia ICD Code: R09.02 Status: Acute (4) Bronchiolar obstruction ICD Code: J98.09 Status: Acute (5) Mass of left lung ICD Code: R91.8 Status: Acute (6) Hemoptysis ICD Code: R04.2 Status: Acute Assessment and Plan Neuro/Psych: History of seizures Currently on propofol/fentanyl drips for sedation/analgesia while intubated. On nimbex for neuromuscular blockade. Goal RASS -2. Daily sedation vacation Seizure precautions On Dilantin 300 twice a day. Dilantin level 8.8 CV: Sinus tachycardia History of hypertension History dyslipidemia Currently on atenolol 25 mg by mouth twice a day. Holding simvastatin. Resume when clinically indicated Resp: Acute respiratory failure Hemoptysis Left pleural effusion, small pneumothorax status post chest tube L main bronchus from obstruction from probable lung CA ACV ventilation. 16/500/5/40 Ventilator bundle Bronchodilator therapy every 6 hours and as needed Chest tube - 20 [place] - -40 cm H2O. Bronchoscopy auscultated be revealed active bleeding left main bronchus stopped status post epinephrine 2 CT of the chest today 10/24/16 shows that the opacification is predominantly collapsed lung, effusion is small to moderate with loculation, very small apical pneumothorax Chest x-ray 10/26 shows resolution pneumothorax. Heme opacification the left lung. Follow-up ABG/chest x-ray post intubation Emergent bronchoscopy for hemoptysis by Dr. Wilkins/pulmonology 10/23, repeat bronchoscopy and biopsy 10/24 Hemoptysis: Likely sources left main bronchus mass CT surgery valuation Dr. Colbert. Currently with planned transfer to [facility] for evaluation of left main bronchus mass - awaiting ICU bed. GI: Hypoalbuminemia Continue Jevity 1.5 goal 50 cc an hour OG tube replaced Protonix for GI prophylaxis Colace/as needed Senokot for bowel regimen : BPH Lipscomb for accurate I's and O's in a critically ill patient On Terazosin at home. Currently on hold Endo: Sliding-scale insulin if indicated Renal: Creatinine currently within normal limits. Monitor urine output. Accurate I's and O's Heme: Leukocytosis Normocytic anemia Monitor CBC ID: Klebsiella pneumonia Currently #9 Zosyn Discontinued Zithromax 10/27 (day 7) Pertinent cultures 10/22 - bronchoscopy - no growth Sputum - Klebsiella pneumonia Blood cultures 2 - no growth FEN: Replacing electrolytes as clinically indicated MSK: PT evaluate and treat Access - Utilize peripheral IV. Central line if indicated Prophylaxis - GI - Protonix - DVT- SCD/pharmacological prophylaxis contraindicated with hemoptysis Critical Care: The total critical care time was 35 minutes. Time to perform other separately billable procedures was not included in the critical care time. Dr. Colbert requested transferred to [facility] for evaluation of left main bronchus lesion. On 10/28, approximately 1900 hours, patient with gross hemoptysis. Received racemic epinephrine 0.5% 2. Continue to have hemoptysis and decision was made to perform fiberoptic bronchoscopy. Upon direct visualization, large fresh clot located near the aisha by the left main bronchus. This was with 2 cc of 1 /10,000 epinephrine with more bleeding noted. Decision was made to intubate down right mainstem which was performed. Irrigation with multiple aliquots of sterile saline to clear right lung. Saturations remain 100% throughout the procedure. On bronchoscopies, able to visualize right upper lobe, middle lobe and lower lobe through ET tube. Chest x-ray reviewed post procedure showed positioning a tube and right mainstem. Discussed with Dr. Early and Dr. Villanueva at [facility]. Unwilling to accept transfer secondary to CT surgery available at [facility]. Patient discussed with Dr. Motta at [facility]/[place]. Unwilling to accept patient secondary to one bed available and transfer coronary unavailable until a.m. 10/28 Discussed with Briana. Unwilling to accept transfer secondary to Medicare E/VA insurance issues. Physician has accepted but the hospital has not Discussed with Dr. KayCT surgery at [facility]. He recommended IR for bronchial artery embolization Discussed with Dr. Perry. He recommended transfer to facility while stable. Right mainstem intubation Dr. Perry willing to see patient emergent situation. Time spent on critical care excluding procedures 40 minutes Manuel Banerjee MD Oct 29, 2016 14:49
[2016-10-29] MEDS: RESP: ALBUTEROL 2.5 MG/IPRATROPIUM 0.5 MG NEB (PRN) INH (16:16)
[2016-10-29] MEDS: MIDAZOLAM 100 MG/ML INJ 100 ML IV SCH (17:45)
--- NOTE | 2016-10-29 20:03 | HHI.PR ---
Subjective Remarks 71 YOWM with COPD, Pl effusion.left lung mass, atelactesis Had Chest tube placed with some re expansion of left lung Was omaira for bronch today Pt started having large hemoptysis Emergentaly intubated Hemoptysis controlled Cytology negative CTS evaluated pt, plans to tr to [facility] On AC, sedated, on Nimbex drip Accepted at [facility] awaiting bed availablity No Hemoptysis Objective Vital Signs Vital Signs Date Time Temp Pulse Resp B/P Pulse Ox O2 Delivery O2 Flow Rate FiO2 10/29/16 18:00 84 10/29/16 16:16 93 40 10/29/16 16:00 99.2 73 16 140/71 91 10/29/16 16:00 73 10/29/16 16:00 50 10/29/16 14:00 69 10/29/16 12:19 95 40 10/29/16 12:00 99.5 63 16 128/65 96 10/29/16 12:00 50 10/29/16 12:00 63 10/29/16 10:00 66 10/29/16 08:22 93 40 10/29/16 08:00 72 10/29/16 08:00 99.3 72 16 151/72 94 10/29/16 08:00 50 10/29/16 06:00 62 10/29/16 04:31 97 40 10/29/16 04:00 50 10/29/16 04:00 99.8 64 16 151/75 99 10/29/16 04:00 62 10/29/16 02:00 62 10/29/16 01:27 98 40 10/29/16 00:00 63 10/29/16 00:00 99.5 63 16 138/67 99 10/29/16 00:00 50 10/28/16 22:20 97 50 10/28/16 22:00 67 10/28/16 20:30 98 50 I/O 10/28/16 10/28/16 10/28/16 10/29/16 10/29/16 10/29/16 07:00 15:00 23:00 07:00 15:00 23:00 Intake Total 1219 ml 1587 ml 1114 ml 916 ml 1295 ml Output Total 260 ml 300 ml 325 ml 400 ml 565 ml Balance 959 ml 1287 ml 789 ml 516 ml 730 ml IV Total 849 ml 1063 ml 693 ml 548 ml 716 ml Tube Feeding 270 ml 464 ml 361 ml 368 ml 399 ml Tube Irrigant 60 ml Other 100 ml 60 ml 180 ml Output Urine Total 250 ml 300 ml 300 ml 350 ml 300 ml Stool Total 265 ml Chest Tube Drainage Total 10 ml 25 ml 50 ml # Bowel Movements 1 Result Diagram: 10/28/16 0741 10/28/16 2224 Objective Remarks GENERAL:WBWn WM , mild sob SKIN: Warm and dry. HEAD: Normocephalic. EYES: No scleral icterus. No injection or drainage. NECK: Supple, trachea midline. No JVD or lymphadenopathy. CARDIOVASCULAR: Regular rate and rhythm without murmurs, gallops, or rubs. RESPIRATORY: Breath sounds equal bilaterally. No accessory muscle use. Left chest tube draining Decreased BS left GASTROINTESTINAL: Abdomen soft, non-tender, nondistended. MUSCULOSKELETAL: No cyanosis, or edema. BACK: Nontender without obvious deformity. No CVA tenderness. A/P Assessment and Plan Left lung mass Atelactesis LargeHemoptysis COPD Pl effusion, s/p chest tube VDRF PLAN: Vent Support Sedation with fenatnyl and Diprivan. Racemic epi Nebs prn Chest tube to suction Cont abx Tr to [facility] when bed avaiable Valeriy Wilkins MD Oct 29, 2016 20:03
[2016-10-30] VITALS (19 sets, daily range): BP systolic 119–138; BP diastolic 62–74; PULSE 58–71; RESP 16; TEMP 98.6–99.1; O2SAT 91–99
[2016-10-30] MEDS: PROPOFOL 1000 MG/100 ML INJ 100 ML IV SCH ×3 (02:02→17:51)
[2016-10-30] MEDS: methylPREDNISolone SOD SUCC 40 MG/1 ML VIAL IV SCH ×4 (02:02→20:46)
[2016-10-30] MEDS: PIPERACIL-TAZO 4.5 GM PREMIX 100 ML IV SCH ×4 (02:03→16:53)
[2016-10-30] MEDS: CHLORHEXIDINE GLUCONATE 2 % 1 PACK (2 CLOTHS) TOP SCH (04:00)
[2016-10-30] MEDS: CISATRACURIUM INJ 100 MG in SODIUM CHLOR 0.9% 250 ML INJ 240 ML IV SCH ×3 (04:43→19:09)
[2016-10-30] MEDS: PHENYTOIN SODIUM 100 MG CAP PO SCH ×2 (08:47→20:46)
[2016-10-30] MEDS: PANTOPRAZOLE SODIUM 40 MG VIAL IV SCH (08:47)
[2016-10-30] MEDS: SODIUM CHLORIDE 0.9% FLUSH 5 ML FLUSH IVF PRN (08:47)
[2016-10-30] MEDS: DOCUSATE SODIUM 100 MG CAP PO SCH ×2 (08:47→20:41)
[2016-10-30] MEDS: CHLORHEXIDINE 0.12% (ORAL KIT) 15 ML CUP MT SCH ×2 (08:47→20:46)
[2016-10-30] MEDS: POLYETHYLENE GLYCOL 17 GM PKG PO SCH (08:47)
[2016-10-30] MEDS: SENNOSIDES SYRUP 8.8 MG/5 ML CUP PO SCH (08:47)
[2016-10-30] MEDS: SODIUM CHLORIDE 0.9% FLUSH 5 ML FLUSH IVF SCH ×2 (08:47→20:46)
[2016-10-30] MEDS: ATENOLOL 25 MG TAB PO SCH ×3 (08:48→20:51)
[2016-10-30] MEDS: MIDAZOLAM 100 MG/ML INJ 100 ML IV SCH (08:53)
[2016-10-30] MEDS: fentaNYL DRIP 250 ML IV SCH (08:53)
--- NOTE | 2016-10-30 11:25 | HHI.CCPN ---
Subjective Remarks/Hospital Course 71-year-old male comes in complaining of cough and shortness of breath. He says for the past 2 days he has been coughing up blood. He occasionally passes clots, but often is just streaks in his mucus. He denies any chest pain, but says he is very short of breath when walking. He says he had an episode earlier in the month and he tried to come to the emergency department, but was frustrated with the wait and left. He says it went away, but has come back. He has smoked cigarettes, but quit several years ago. He does say that he currently smokes a pipe. He denies any fever or chills. He is not on any blood thinners, and this has never happened to him before. CT angio revealed Complete opacification of the left lung with central line this abrupt narrowing and nodularity central lesion or mucous plug suggested with collapse of the left lung a large effusion. 2: Called to see patient secondary to hemoptysis. Received 3 racemic epinephrine but continued to have hemoptysis. Emergently intubated using 40 mg etomidate with an 8.0 ET tube with glide scope. Dr. Wilkins at bedside to perform bronchoscopy currently. 22: Emergently intubated yesterday due to significant hemoptysis. Dr. Wilkins performed bronchoscopy at the bedside- lot of blood was removed from the trachea , which was suctioned out After repeated suctioning, lavage, and epinephrine used, bleeding was controlled. There was a mass obstructing the left lung and a large clot. A CT chest done today was discussed with Dr. Perry, left lung opacification is predominantly atelectatic lung, unless on fluid. Small apical pneumothorax, chest tube in good position. Dr. Wilkins planning for repeat bronchoscopy and biopsy today at 4 PM, with possible biopsy 2/3: Resting in bed. Chest -40 cm H2O with minimal drainage. No more bleeding. Spontaneous breathing trials ordered for today. Cytology still pending. 10/26: Afebrile. No bowel movement. Arousable on Ventolin falls commands. No drainage from chest tube. No more hemoptysis noted. Spontaneous breathing trials scheduled for today. 10/27: Afebrile. To balance overnight. Increasing hemoptysis noted from ET tube. Continue racemic epi 2 now. No plans for extubation until transfer. Waiting for "financials" prior to transfer to [facility] for evaluation by interventional pulmonology/CT surgery. 10/28: Remains sedated, orally intubated on mechanical ventilation. On neuromuscular blockade with Nimbex. Awaiting transfer to the [facility] in [place]. 10/29: Remains sedated, orally intubated on mechanical ventilation. On neuromuscular blockade with Nimbex. Awaiting transfer to [facility]. 10/30: Remains sedated, orally intubated on neuromuscular blockade. On mechanical ventilation. Awaiting transfer to [facility] Objective Vital Signs Date Time Temp Pulse Resp B/P Pulse Ox O2 Delivery O2 Flow Rate FiO2 10/30/16 10:00 68 10/30/16 08:27 99 40 10/30/16 08:00 98.9 16 127/63 Intake and Output 10/29/16 10/29/16 10/30/16 08:00 16:00 00:00 Intake Total 916 ml 1295 ml Output Total 400 ml 565 ml Balance 516 ml 730 ml Result Diagram: 10/28/16 0741 10/28/16 2224 Imaging Last Impressions Chest X-Ray 10/27/16 0600 Signed Impressions: Service Date/Time: Thursday, October 27, 2016 02:59 - CONCLUSION: Stable chest x-ray with complete opacification of the left hemithorax likely secondary to pleural effusion along with volume loss and consolidation. There is also stable right basilar opacity. Paul Booker MD Chest CT 10/24/16 0000 Signed Impressions: Service Date/Time: October 08:40 - CONCLUSION: 1. Left lung collapse/consolidation similar to the prior study with cut off at the distal left mainstem bronchus again suggesting either mucus plugging or endobronchial mass. 2. Left pleural effusion slightly decreased. Hydropneumothorax now noted with new left sided pleural air-fluid level. No discrete septations or loculations identified. 3. Increase in patchy right lung atelectasis versus mild consolidation. 4. Diffusely mildly dilated fluid-filled esophagus. Jose Cloud MD CT Angiography 10/21/16 0820 Signed Impressions: Service Date/Time: Friday, October 21, 2016 09:13 - CONCLUSION: Complete opacification of the left lung with central line this abrupt narrowing and nodularity central lesion or mucous plug suggested with collapse of the left lung a large effusion. Negative for pulmonary. Jonathan Farrell MD Objective Remarks GENERAL/NEURO: 71-year-old male, intubated sedated, on neuromuscular blockade SKIN: Warm and dry. No rash HEAD: Normocephalic. EYES: No scleral icterus. No injection or drainage. ENT: Orotracheally intubated, today with scant bloody secretions NECK: Supple, trachea midline. No JVD or lymphadenopathy. CARDIOVASCULAR: Bradycardic, RRR. S1, S2. No S4. Without murmurs, gallops, or rubs. RESPIRATORY: Absent breath sounds left side. Coarse crackles appreciated right lobe. No significant blood from ETT. Left chest tube clean dry and intact. With no output GASTROINTESTINAL: Abdomen soft, non-tender, nondistended. Hypoactive bowel sounds. MUSCULOSKELETAL: Without significant peripheral edema. BACK: Nontender without obvious deformity. No CVA tenderness. Procedures chest tube placement A/P Problem List: (1) Acute respiratory failure ICD Code: J96.00 Status: Acute (2) Pleural effusion ICD Code: J90 Status: Acute (3) Hypoxia ICD Code: R09.02 Status: Acute (4) Bronchiolar obstruction ICD Code: J98.09 Status: Acute (5) Mass of left lung ICD Code: R91.8 Status: Acute (6) Hemoptysis ICD Code: R04.2 Status: Acute Assessment and Plan Neuro/Psych: History of seizures Currently on propofol/fentanyl drips for sedation/analgesia while intubated. On nimbex for neuromuscular blockade. Daily sedation vacation Seizure precautions On Dilantin 300 twice a day. Dilantin level 8.8 CV: Sinus tachycardia History of hypertension History dyslipidemia Currently on atenolol 25 mg by mouth twice a day. Holding simvastatin. Resume when clinically indicated Resp: Acute respiratory failure Hemoptysis Left pleural effusion, small pneumothorax status post chest tube L main bronchus from obstruction from probable lung CA ACV ventilation. 16/500/5/40 Ventilator bundle Bronchodilator therapy every 6 hours and as needed Chest tube - 20 [place] - -40 cm H2O. Bronchoscopy auscultated be revealed active bleeding left main bronchus stopped status post epinephrine 10/23 CT of the chest today 10/24/16 shows that the opacification is predominantly collapsed lung, effusion is small to moderate with loculation, very small apical pneumothorax Chest x-ray 10/26 shows resolution pneumothorax. Heme opacification the left lung. Follow-up ABG/chest x-ray post intubation Emergent bronchoscopy for hemoptysis by Dr. Wilkins/pulmonology 10/23, repeat bronchoscopy and biopsy 10/24 Hemoptysis: Likely sources left main bronchus mass CT surgery valuation Dr. Colbert. Currently with planned transfer to [facility] for evaluation of left main bronchus mass - awaiting ICU bed. GI: Hypoalbuminemia Continue Jevity 1.5 goal 50 cc an hour OG tube replaced Protonix for GI prophylaxis Colace/as needed Senokot for bowel regimen : BPH Lipscomb for accurate I's and O's in a critically ill patient On Terazosin at home. Currently on hold Endo: Sliding-scale insulin if indicated Renal: Creatinine currently within normal limits. Monitor urine output. Accurate I's and O's Heme: Leukocytosis Normocytic anemia Monitor CBC ID: Klebsiella pneumonia Currently #10 Zosyn Discontinued Zithromax 10/27 (day 7) Pertinent cultures 10/22 - bronchoscopy - no growth Sputum - Klebsiella pneumonia Blood cultures 2 - no growth FEN: Replacing electrolytes as clinically indicated MSK: PT evaluate and treat Access - Utilize peripheral IV. Central line if indicated Prophylaxis - GI - Protonix - DVT- SCD/pharmacological prophylaxis contraindicated with hemoptysis Critical Care: The total critical care time was 35 minutes. Time to perform other separately billable procedures was not included in the critical care time. Dr. Colbert requested transferred to [facility] for evaluation of left main bronchus lesion. On 10/28, approximately 1900 hours, patient with gross hemoptysis. Received racemic epinephrine 0.5% 2. Continue to have hemoptysis and decision was made to perform fiberoptic bronchoscopy. Upon direct visualization, large fresh clot located near the aisha by the left main bronchus. This was with 2 cc of 1 /10,000 epinephrine with more bleeding noted. Decision was made to intubate down right mainstem which was performed. Irrigation with multiple aliquots of sterile saline to clear right lung. Saturations remain 100% throughout the procedure. On bronchoscopies, able to visualize right upper lobe, middle lobe and lower lobe through ET tube. Chest x-ray reviewed post procedure showed positioning a tube and right mainstem. Discussed with Dr. Early and Dr. Villanueva at [facility]. Unwilling to accept transfer secondary to CT surgery available at [facility]. Patient discussed with Dr. Motta at [facility]/[place]. Unwilling to accept patient secondary to one bed available and transfer coronary unavailable until a.m. 10/28 Discussed with Briana. Unwilling to accept transfer secondary to Medicare E/VA insurance issues. Physician has accepted but the hospital has not Discussed with Dr. KayCT surgery at [facility]. He recommended IR for bronchial artery embolization Discussed with Dr. Perry. He recommended transfer to facility while stable. Right mainstem intubation Dr. Perry willing to see patient emergent situation. Time spent on critical care excluding procedures 40 minutes Manuel Banerjee MD Oct 30, 2016 11:25
[2016-10-30 13:18] LABS: AUTOMATED NEUTROPHIL # 7.7 TH/MM3 (1.8-7.7); BASOPHIL # 0.1 TH/MM3 (0-0.2); BASOPHIL % 1.3 % (0.0-2.0); EOSINOPHIL # 0.1 TH/MM3 (0-0.4); EOSINOPHIL % 1.1 % (0.0-4.0); HEMATOCRIT 29.1 % (39.0-51.0); HEMO FLAGS DIFF FINAL; LYMPH % 9.9 % (9.0-44.0); MEAN CELL VOLUME 87.9 FL (80.0-100.0); MEAN CORPUSCULAR HEMOGLOBIN 29.1 PG (27.0-34.0); MEAN CORPUSCULAR HGB CONC 33.1 % (32.0-36.0); MONO % 8.5 % (0.0-8.0); NEUT % 79.2 % (16.0-70.0); PLATELET COUNT 328 TH/MM3 (150-450); RED BLOOD COUNT 3.31 MIL/MM3 (4.50-5.90); RED CELL DISTRIBUTION WIDTH 14.7 % (11.6-17.2); WHITE BLOOD COUNT 9.8 TH/MM3 (4.0-11.0)
[2016-10-30 13:58] LABS: BLOOD UREA NITROGEN 28 MG/DL (7-18); GLOMERULAR FILTRATION RATE 94 ML/MIN (>89)
[2016-10-30 13:59] LABS: ALKALINE PHOSPHATASE 63 U/L (45-117); ALT (GPT) 21 U/L (12-78); AST (GOT) 13 U/L (15-37); SODIUM (NA) 148 MEQ/L (136-145); TOTAL BILIRUBIN ADULT 0.3 MG/DL (0.2-1.0)
[2016-10-30 14:00] LABS: ANION GAP 4 MEQ/L (5-15); BICARBONATE 33.2 MEQ/L (21.0-32.0); CHLORIDE 111 MEQ/L (98-107); POTASSIUM 4.5 MEQ/L (3.5-5.1)
--- NOTE | 2016-10-30 17:15 | HHI.PR ---
Subjective Remarks 71 YOWM with COPD, Pl effusion.left lung mass, atelactesis Had Chest tube placed with some re expansion of left lung Cytology negative CTS evaluated pt, plans to tr to [facility] On AC, sedated, on Nimbex drip Accepted at [place]., awaiting bed availablity No Hemoptysis Objective Vital Signs Vital Signs Date Time Temp Pulse Resp B/P Pulse Ox O2 Delivery O2 Flow Rate FiO2 10/30/16 16:00 64 10/30/16 16:00 98.7 64 16 138/74 91 10/30/16 16:00 40 10/30/16 15:56 92 40 10/30/16 14:00 62 10/30/16 12:00 99.1 60 16 123/64 95 10/30/16 12:00 40 10/30/16 12:00 60 10/30/16 11:57 95 40 10/30/16 10:00 68 10/30/16 08:27 99 40 10/30/16 08:00 65 10/30/16 08:00 98.9 65 16 127/63 98 10/30/16 08:00 40 10/30/16 06:00 62 10/30/16 04:51 97 50 10/30/16 04:00 50 10/30/16 04:00 98.7 68 16 138/67 94 10/30/16 04:00 68 10/30/16 02:00 65 10/30/16 00:48 96 50 10/30/16 00:00 98.6 67 16 119/62 96 10/30/16 00:00 65 10/30/16 00:00 50 10/29/16 22:00 73 10/29/16 21:33 94 50 10/29/16 20:00 98.9 84 16 183/87 93 10/29/16 20:00 50 10/29/16 20:00 84 10/29/16 18:00 84 I/O 10/29/16 10/29/16 10/29/16 10/30/16 10/30/16 10/30/16 07:00 15:00 23:00 07:00 15:00 23:00 Intake Total 916 ml 1295 ml 1962 ml 1165 ml Output Total 400 ml 565 ml 930 ml 740 ml Balance 516 ml 730 ml 1032 ml 425 ml IV Total 548 ml 716 ml 1226 ml 713 ml Tube Feeding 368 ml 399 ml 736 ml 392 ml Other 180 ml 60 ml Output Urine Total 350 ml 300 ml 460 ml 600 ml Stool Total 265 ml 400 ml 100 ml Chest Tube Drainage Total 50 ml 70 ml 40 ml Result Diagram: 10/30/16 1245 10/30/16 1245 Objective Remarks GENERAL:WBWn WM , mild sob SKIN: Warm and dry. HEAD: Normocephalic. EYES: No scleral icterus. No injection or drainage. NECK: Supple, trachea midline. No JVD or lymphadenopathy. CARDIOVASCULAR: Regular rate and rhythm without murmurs, gallops, or rubs. RESPIRATORY: Breath sounds equal bilaterally. No accessory muscle use. Left chest tube draining Decreased BS left GASTROINTESTINAL: Abdomen soft, non-tender, nondistended. MUSCULOSKELETAL: No cyanosis, or edema. BACK: Nontender without obvious deformity. No CVA tenderness. A/P Assessment and Plan Left lung mass Atelactesis LargeHemoptysis COPD Pl effusion, s/p chest tube VDRF PLAN: Vent Support Sedation with fenatnyl and Diprivan. Racemic epi Nebs prn Chest tube to suction Cont abx Tr to [place] when bed avaiable Stable hemodynamically Valeriy Wilkins MD Oct 30, 2016 17:15
[2016-10-30] MEDS: RESP: ALBUTEROL 2.5 MG/IPRATROPIUM 0.5 MG NEB (PRN) INH ×2 (20:50→23:44)
[2016-10-31] VITALS (19 sets, daily range): BP systolic 109–129; BP diastolic 56–66; PULSE 63–80; RESP 13–16; TEMP 99.1–99.3; O2SAT 91–95
[2016-10-31] MEDS: fentaNYL DRIP 250 ML IV SCH ×3 (00:10→23:45)
[2016-10-31] MEDS: CISATRACURIUM INJ 100 MG in SODIUM CHLOR 0.9% 250 ML INJ 240 ML IV SCH ×4 (00:10→22:17)
[2016-10-31] MEDS: PIPERACIL-TAZO 4.5 GM PREMIX 100 ML IV SCH ×5 (00:10→22:28)
[2016-10-31] MEDS: MIDAZOLAM 100 MG/ML INJ 100 ML IV SCH ×2 (00:10→15:46)
[2016-10-31] MEDS: PROPOFOL 1000 MG/100 ML INJ 100 ML IV SCH ×4 (00:26→22:20)
[2016-10-31] MEDS: CHLORHEXIDINE GLUCONATE 2 % 1 PACK (2 CLOTHS) TOP SCH (03:44)
[2016-10-31] MEDS: RESP: ALBUTEROL 2.5 MG/IPRATROPIUM 0.5 MG NEB (PRN) INH ×2 (04:01→08:39)
[2016-10-31] MEDS: methylPREDNISolone SOD SUCC 40 MG/1 ML VIAL IV SCH ×3 (04:47→19:41)
[2016-10-31 05:42] LABS: AUTOMATED NEUTROPHIL # 7.7 TH/MM3 (1.8-7.7); BASOPHIL # 0.1 TH/MM3 (0-0.2); BASOPHIL % 1.3 % (0.0-2.0); EOSINOPHIL # 0.1 TH/MM3 (0-0.4); EOSINOPHIL % 1.1 % (0.0-4.0); HEMATOCRIT 28.3 % (39.0-51.0); HEMO FLAGS DIFF FINAL; LYMPH % 13.4 % (9.0-44.0); LYMPHOCYTE # 1.4 TH/MM3 (1.0-4.8); MEAN CELL VOLUME 89.3 FL (80.0-100.0); MEAN CORPUSCULAR HEMOGLOBIN 29.8 PG (27.0-34.0); MEAN CORPUSCULAR HGB CONC 33.4 % (32.0-36.0); MONO % 8.4 % (0.0-8.0); NEUT % 75.8 % (16.0-70.0); PLATELET COUNT 316 TH/MM3 (150-450); RED BLOOD COUNT 3.17 MIL/MM3 (4.50-5.90); RED CELL DISTRIBUTION WIDTH 15.6 % (11.6-17.2); WHITE BLOOD COUNT 10.2 TH/MM3 (4.0-11.0)
[2016-10-31 06:14] LABS: ALKALINE PHOSPHATASE 61 U/L (45-117); ALT (GPT) 19 U/L (12-78); ANION GAP 4 MEQ/L (5-15); AST (GOT) 12 U/L (15-37); BICARBONATE 33.1 MEQ/L (21.0-32.0); BLOOD UREA NITROGEN 32 MG/DL (7-18); CHLORIDE 111 MEQ/L (98-107); GLOMERULAR FILTRATION RATE 93 ML/MIN (>89); POTASSIUM 4.4 MEQ/L (3.5-5.1); SODIUM (NA) 148 MEQ/L (136-145); TOTAL BILIRUBIN ADULT 0.2 MG/DL (0.2-1.0)
[2016-10-31] MEDS: PHENYTOIN SODIUM 100 MG CAP PO SCH ×2 (08:10→19:42)
[2016-10-31] MEDS: SENNOSIDES SYRUP 8.8 MG/5 ML CUP PO SCH (08:10)
[2016-10-31] MEDS: CHLORHEXIDINE 0.12% (ORAL KIT) 15 ML CUP MT SCH ×2 (08:10→19:41)
[2016-10-31] MEDS: PANTOPRAZOLE SODIUM 40 MG VIAL IV SCH (08:10)
[2016-10-31] MEDS: SODIUM CHLORIDE 0.9% FLUSH 5 ML FLUSH IVF PRN (08:10)
[2016-10-31] MEDS: DOCUSATE SODIUM 100 MG CAP PO SCH ×2 (08:10→19:27)
[2016-10-31] MEDS: POLYETHYLENE GLYCOL 17 GM PKG PO SCH (08:10)
[2016-10-31] MEDS: ATENOLOL 25 MG TAB PO SCH ×2 (08:11→19:27)
[2016-10-31] MEDS: SODIUM CHLORIDE 0.9% FLUSH 5 ML FLUSH IVF SCH ×2 (08:11→19:42)
--- NOTE | 2016-10-31 10:23 | PD.CAR.PN ---
CVT Progress Note Subjective/Hospital Course: 71-year-old male most of info recieved from chart and son at bedside , comes in complaining of cough and shortness of breath, past 2 days he has been coughing up blood., occasionally passes clots, but often is just streaks in his mucus. denied any chest pain, but says he is very short of breath when walking. He says he had an episode earlier in the month and he tried to come to the emergency department, but was frustrated with the wait and left. He says it went away, but has come back. He has smoked cigarettes, but quit several years ago. He does say that he currently smokes a pipe. He denied any fever or chills. He was not on any blood thinners, and this has never happened to him before. CT angio revealed Complete opacification of the left lung with central line this abrupt narrowing and nodularity central lesion or mucous plug suggested with collapse of the left lung a large effusion. 10/22 chest tube placed for large left pleural effusion 10/23: scheduled for bronchoscopy, was intubated , had significant hemoptysis , apparently there was a mass obstructing the left lung and a large clot. 10/25 consultation done, Dr Colbert spoke with pulm medicine fellow at [facility] to eval for transfer for left bronchial stent placement 10/27 had emergent bedside bronch 2 hemoptysis 10/28 still waiting on transfer to [facility], apparently pt is [facility] and await financial eval for transfer per Case management remains intubated on vent critically ill 10/29 remains critically ill, intubated and paralyzed on nimbex/ on vent FI02 40% pt has been accepted at [facility] in [place] waiting on bed placement continue full support at this time to be eval for left bronchial stent placement bronchial washing and pleural fluid no malignant cells no bronchial brushing noted 10/31 still waiting on transfer to [facility], bed pending, discussed with Nurse that CM needs to reiterate that is not stable 10/24 to on paralytics, Objective: GENERAL: sedated and paralyzed on vent SKIN: Warm and dry.pale HEAD: Normocephalic. EYES: No scleral icterus. No injection or drainage. NECK: Supple, trachea midline. No JVD or lymphadenopathy. CARDIOVASCULAR: Regular rate and rhythm without murmurs, gallops, or rubs. general edema RESPIRATORY: coarse breath sound on right , no breath sounds on left chest tube in place, nno air leak . No accessory muscle use. GASTROINTESTINAL: Abdomen soft, non-tender, nondistended. MUSCULOSKELETAL: No cyanosis, or edema. BACK: Nontender without obvious deformity. No CVA tenderness. Vital Signs Date Time Temp Pulse Resp B/P Pulse Ox O2 Delivery O2 Flow Rate FiO2 10/31/16 10:00 80 10/31/16 08:39 94 40 10/31/16 08:00 99.2 72 16 129/63 94 10/31/16 08:00 72 10/31/16 08:00 40 10/31/16 06:00 67 10/31/16 04:01 94 40 10/31/16 04:00 63 10/31/16 04:00 99.2 63 16 109/56 94 10/31/16 04:00 40 10/31/16 02:00 70 10/31/16 01:16 92 40 10/31/16 00:00 40 10/31/16 00:00 99.3 71 16 127/66 91 10/31/16 00:00 71 10/30/16 22:41 93 40 10/30/16 22:00 71 10/30/16 20:20 95 40 10/30/16 20:00 99.1 58 16 119/65 96 10/30/16 20:00 58 10/30/16 20:00 40 10/30/16 18:00 62 10/30/16 16:00 64 10/30/16 16:00 98.7 64 16 138/74 91 10/30/16 16:00 40 10/30/16 15:56 92 40 10/30/16 14:00 62 10/30/16 12:00 99.1 60 16 123/64 95 10/30/16 12:00 40 10/30/16 12:00 60 10/30/16 11:57 95 40 Labs: Laboratory Tests Test 10/31/16 05:16 White Blood Count 10.2 TH/MM3 (4.0-11.0) Red Blood Count 3.17 MIL/MM3 (4.50-5.90) Hemoglobin 9.5 GM/DL (13.0-17.0) Hematocrit 28.3 % (39.0-51.0) Mean Corpuscular Volume 89.3 FL (80.0-100.0) Mean Corpuscular Hemoglobin 29.8 PG (27.0-34.0) Mean Corpuscular Hemoglobin 33.4 % Concent (32.0-36.0) Red Cell Distribution Width 15.6 % (11.6-17.2) Platelet Count 316 TH/MM3 (150-450) Mean Platelet Volume 7.2 FL (7.0-11.0) Neutrophils (%) (Auto) 75.8 % (16.0-70.0) Lymphocytes (%) (Auto) 13.4 % (9.0-44.0) Monocytes (%) (Auto) 8.4 % (0.0-8.0) Eosinophils (%) (Auto) 1.1 % (0.0-4.0) Basophils (%) (Auto) 1.3 % (0.0-2.0) Neutrophils # (Auto) 7.7 TH/MM3 (1.8-7.7) Lymphocytes # (Auto) 1.4 TH/MM3 (1.0-4.8) Monocytes # (Auto) 0.9 TH/MM3 (0-0.9) Eosinophils # (Auto) 0.1 TH/MM3 (0-0.4) Basophils # (Auto) 0.1 TH/MM3 (0-0.2) CBC Comment DIFF FINAL Differential Comment Sodium Level 148 MEQ/L (136-145) Potassium Level 4.4 MEQ/L (3.5-5.1) Chloride Level 111 MEQ/L (98-107) Carbon Dioxide Level 33.1 MEQ/L (21.0-32.0) Anion Gap 4 MEQ/L (5-15) Blood Urea Nitrogen 32 MG/DL (7-18) Creatinine 0.82 MG/DL (0.60-1.30) Estimat Glomerular Filtration 93 ML/MIN (>89) Rate Random Glucose 139 MG/DL (74-106) Calcium Level 7.7 MG/DL (8.5-10.1) Total Bilirubin 0.2 MG/DL (0.2-1.0) Aspartate Amino Transf 12 U/L (15-37) (AST/SGOT) Alanine Aminotransferase 19 U/L (12-78) (ALT/SGPT) Alkaline Phosphatase 61 U/L (45-117) Total Protein 4.8 GM/DL (6.4-8.2) Albumin 1.8 GM/DL (3.4-5.0) Result Diagram: 10/31/1651510/31/16515 (1) Hemoptysis (2) Mass of left lung Plan: complete obstruction of left bronchus will need bronchial stent CM to continue calling daily accepted by [facility], await bed for transfer (3) Pneumothorax (4) ventilator dependent resp failure Problem Qualifiers (1) Pneumothorax: Qualified Code: J93.83 - Other pneumothorax Crystal Ibarra Oct 31, 2016 10:23
--- NOTE | 2016-10-31 18:14 | HHI.PR ---
Subjective Remarks 71 YOWM with COPD, Pl effusion.left lung mass, atelactesis Had Chest tube placed with some re expansion of left lung Cytology negative CTS evaluated pt, plans to tr to [facility] On AC, sedated, on Nimbex drip Accepted at [place]., awaiting bed availablity No Hemoptysis Ex at Objective Vital Signs Vital Signs Date Time Temp Pulse Resp B/P Pulse Ox O2 Delivery O2 Flow Rate FiO2 10/31/16 18:00 77 10/31/16 16:09 94 40 10/31/16 16:00 99.3 75 16 123/61 94 10/31/16 16:00 40 10/31/16 16:00 75 10/31/16 14:00 70 10/31/16 12:00 71 10/31/16 12:00 40 10/31/16 12:00 99.1 71 16 115/59 94 10/31/16 11:18 94 40 10/31/16 10:00 80 10/31/16 08:39 94 40 10/31/16 08:00 99.2 72 16 129/63 94 10/31/16 08:00 72 10/31/16 08:00 40 10/31/16 06:00 67 10/31/16 04:01 94 40 10/31/16 04:00 63 10/31/16 04:00 99.2 63 16 109/56 94 10/31/16 04:00 40 10/31/16 02:00 70 10/31/16 01:16 92 40 10/31/16 00:00 40 10/31/16 00:00 99.3 71 16 127/66 91 10/31/16 00:00 71 10/30/16 22:41 93 40 10/30/16 22:00 71 10/30/16 20:20 95 40 10/30/16 20:00 99.1 58 16 119/65 96 10/30/16 20:00 58 10/30/16 20:00 40 I/O 10/30/16 10/30/16 10/30/16 10/31/16 10/31/16 10/31/16 07:00 15:00 23:00 07:00 15:00 23:00 Intake Total 1962 ml 1165 ml 975 ml 973 ml 964 ml Output Total 930 ml 740 ml 270 ml 225 ml 730 ml Balance 1032 ml 425 ml 705 ml 748 ml 234 ml IV Total 1226 ml 713 ml 762 ml 638 ml 614 ml Tube Feeding 736 ml 392 ml 213 ml 335 ml 350 ml Other 60 ml Output Urine Total 460 ml 600 ml 150 ml 100 ml 700 ml Stool Total 400 ml 100 ml 100 ml 75 ml 0 ml Chest Tube Drainage Total 70 ml 40 ml 20 ml 50 ml 30 ml Result Diagram: 10/31/1651510/31/16515 Objective Remarks GENERAL:WBWn WM , mild sob SKIN: Warm and dry. HEAD: Normocephalic. EYES: No scleral icterus. No injection or drainage. NECK: Supple, trachea midline. No JVD or lymphadenopathy. CARDIOVASCULAR: Regular rate and rhythm without murmurs, gallops, or rubs. RESPIRATORY: Breath sounds equal bilaterally. No accessory muscle use. Left chest tube draining Decreased BS left GASTROINTESTINAL: Abdomen soft, non-tender, nondistended. MUSCULOSKELETAL: No cyanosis, or edema. BACK: Nontender without obvious deformity. No CVA tenderness. A/P Assessment and Plan Left lung mass Atelactesis LargeHemoptysis COPD Pl effusion, s/p chest tube VDRF PLAN: Vent Support On Nimbex drip Racemic epi Nebs prn Chest tube to suction Cont abx Tr to [place] when bed avaiable Dw Family at Valeriy Wilkins MD Oct 31, 2016 18:14
--- NOTE | 2016-10-31 19:00 | HHI.CCPN ---
Subjective Remarks/Hospital Course 71-year-old male comes in complaining of cough and shortness of breath. He says for the past 2 days he has been coughing up blood. He occasionally passes clots, but often is just streaks in his mucus. He denies any chest pain, but says he is very short of breath when walking. He says he had an episode earlier in the month and he tried to come to the emergency department, but was frustrated with the wait and left. He says it went away, but has come back. He has smoked cigarettes, but quit several years ago. He does say that he currently smokes a pipe. He denies any fever or chills. He is not on any blood thinners, and this has never happened to him before. CT angio revealed Complete opacification of the left lung with central line this abrupt narrowing and nodularity central lesion or mucous plug suggested with collapse of the left lung a large effusion. 2: Called to see patient secondary to hemoptysis. Received 3 racemic epinephrine but continued to have hemoptysis. Emergently intubated using 40 mg etomidate with an 8.0 ET tube with glide scope. Dr. Wilkins at bedside to perform bronchoscopy currently. 22: Emergently intubated yesterday due to significant hemoptysis. Dr. Wilkins performed bronchoscopy at the bedside- lot of blood was removed from the trachea , which was suctioned out After repeated suctioning, lavage, and epinephrine used, bleeding was controlled. There was a mass obstructing the left lung and a large clot. A CT chest done today was discussed with Dr. Perry, left lung opacification is predominantly atelectatic lung, unless on fluid. Small apical pneumothorax, chest tube in good position. Dr. Wilkins planning for repeat bronchoscopy and biopsy today at 4 PM, with possible biopsy 2/3: Resting in bed. Chest -40 cm H2O with minimal drainage. No more bleeding. Spontaneous breathing trials ordered for today. Cytology still pending. 10/26: Afebrile. No bowel movement. Arousable on Ventolin falls commands. No drainage from chest tube. No more hemoptysis noted. Spontaneous breathing trials scheduled for today. 10/27: Afebrile. To balance overnight. Increasing hemoptysis noted from ET tube. Continue racemic epi 2 now. No plans for extubation until transfer. Waiting for "financials" prior to transfer to [facility] for evaluation by interventional pulmonology/CT surgery. 10/28: Remains sedated, orally intubated on mechanical ventilation. On neuromuscular blockade with Nimbex. Awaiting transfer to the [facility] in [place]. 10/29: Remains sedated, orally intubated on mechanical ventilation. On neuromuscular blockade with Nimbex. Awaiting transfer to [facility]. 10/30: Remains sedated, orally intubated on neuromuscular blockade. On mechanical ventilation. Awaiting transfer to [facility] 10/31: Remains sedated, orally intubated on neuromuscular blockade. On mechanical ventilation. Still awaiting transfer to [facility]. Objective Vital Signs Date Time Temp Pulse Resp B/P Pulse Ox O2 Delivery O2 Flow Rate FiO2 10/31/16 18:00 77 10/31/16 16:09 94 40 10/31/16 16:00 99.3 16 123/61 Intake and Output 10/30/16 10/30/16 10/31/16 08:00 16:00 00:00 Intake Total 1962 ml 1165 ml 975 ml Output Total 930 ml 740 ml 270 ml Balance 1032 ml 425 ml 705 ml Result Diagram: 10/31/16 0516 10/31/16 0516 Imaging Last Impressions Chest X-Ray 10/27/16 0600 Signed Impressions: Service Date/Time: Thursday, October 27, 2016 02:59 - CONCLUSION: Stable chest x-ray with complete opacification of the left hemithorax likely secondary to pleural effusion along with volume loss and consolidation. There is also stable right basilar opacity. Paul Booker MD Chest CT 10/24/16 0000 Signed Impressions: Service Date/Time: October 08:40 - CONCLUSION: 1. Left lung collapse/consolidation similar to the prior study with cut off at the distal left mainstem bronchus again suggesting either mucus plugging or endobronchial mass. 2. Left pleural effusion slightly decreased. Hydropneumothorax now noted with new left sided pleural air-fluid level. No discrete septations or loculations identified. 3. Increase in patchy right lung atelectasis versus mild consolidation. 4. Diffusely mildly dilated fluid-filled esophagus. Jose Cloud MD CT Angiography 10/21/16 0820 Signed Impressions: Service Date/Time: Friday, October 21, 2016 09:13 - CONCLUSION: Complete opacification of the left lung with central line this abrupt narrowing and nodularity central lesion or mucous plug suggested with collapse of the left lung a large effusion. Negative for pulmonary. Jonathan Farrell MD Objective Remarks GENERAL/NEURO: 71-year-old male, intubated sedated, on neuromuscular blockade SKIN: Warm and dry. No rash HEAD: Normocephalic. EYES: No scleral icterus. No injection or drainage. ENT: Orotracheally intubated, today with scant bloody secretions NECK: Supple, trachea midline. No JVD or lymphadenopathy. CARDIOVASCULAR: Bradycardic, RRR. S1, S2. No S4. Without murmurs, gallops, or rubs. RESPIRATORY: Absent breath sounds left side. Coarse crackles appreciated right lobe. No significant blood from ETT. Left chest tube clean dry and intact. With no output GASTROINTESTINAL: Abdomen soft, nondistended. Hypoactive bowel sounds. MUSCULOSKELETAL: Without significant peripheral edema. Procedures chest tube placement A/P Problem List: (1) Acute respiratory failure ICD Code: J96.00 Status: Acute (2) Pleural effusion ICD Code: J90 Status: Acute (3) Hypoxia ICD Code: R09.02 Status: Acute (4) Bronchiolar obstruction ICD Code: J98.09 Status: Acute (5) Mass of left lung ICD Code: R91.8 Status: Acute (6) Hemoptysis ICD Code: R04.2 Status: Acute Assessment and Plan Neuro/Psych: History of seizures Currently on propofol/fentanyl drips for sedation/analgesia while intubated. On nimbex for neuromuscular blockade. Seizure precautions On Dilantin 300 twice a day. Dilantin level 8.8 CV: Sinus tachycardia History of hypertension History dyslipidemia Currently on atenolol 25 mg by mouth twice a day. Holding simvastatin. Resume when clinically indicated Resp: Acute respiratory failure Hemoptysis Left pleural effusion, small pneumothorax status post chest tube L main bronchus from obstruction from probable lung CA ACV ventilation. 16/500/5/40 Ventilator bundle Bronchodilator therapy every 6 hours and as needed Chest tube - 20 Polish - -40 cm H2O. Bronchoscopy auscultated be revealed active bleeding left main bronchus stopped status post epinephrine 2/ CT of the chest 10/24/16 shows that the opacification is predominantly collapsed lung, effusion is small to moderate with loculation, very small apical pneumothorax Chest x-ray 10/26 shows resolution pneumothorax. Heme opacification the left lung. Emergent bronchoscopy for hemoptysis by Dr. Wilkins/pulmonology 10/23, repeat bronchoscopy and biopsy 10/24 Hemoptysis: Likely sources left main bronchus mass CT surgery evaluation Dr. Colbert. Currently with planned transfer to [facility] for evaluation of left main bronchus mass - awaiting ICU bed. GI: Hypoalbuminemia Continue Jevity 1.5 goal 50 cc an hour OG tube replaced Protonix for GI prophylaxis Colace/as needed Senokot for bowel regimen : BPH Lipscomb for accurate I's and O's in a critically ill patient On Terazosin at home. Currently on hold Endo: Sliding-scale insulin if indicated Renal: Creatinine currently within normal limits. Monitor urine output. Accurate I's and O's Heme: Leukocytosis Normocytic anemia Monitor CBC ID: Klebsiella pneumonia Currently #11 Zosyn Discontinued Zithromax 10/27 (day 7) Pertinent cultures 10/22 - bronchoscopy - no growth Sputum - Klebsiella pneumonia Blood cultures 2 - no growth FEN: Replacing electrolytes as clinically indicated MSK: PT evaluate and treat Access - Utilize peripheral IV. Central line if indicated Prophylaxis - GI - Protonix - DVT- SCD/pharmacological prophylaxis contraindicated with hemoptysis Dr. Colbert requested transferred to [facility] for evaluation of left main bronchus lesion. On 10/28, approximately 1900 hours, patient with gross hemoptysis. Received racemic epinephrine 0.5% 2. Continue to have hemoptysis and decision was made to perform fiberoptic bronchoscopy. Upon direct visualization, large fresh clot located near the aisha by the left main bronchus. This was with 2 cc of 1 /10,000 epinephrine with more bleeding noted. Decision was made to intubate down right mainstem which was performed. Irrigation with multiple aliquots of sterile saline to clear right lung. Saturations remain 100% throughout the procedure. On bronchoscopies, able to visualize right upper lobe, middle lobe and lower lobe through ET tube. Chest x-ray reviewed post procedure showed positioning a tube and right mainstem. Discussed with Dr. Early and Dr. Villanueva at [facility]. Unwilling to accept transfer secondary to CT surgery available at [facility]. Patient discussed with Dr. Motta at [facility]/[place]. Unwilling to accept patient secondary to one bed available and transfer coronary unavailable until a.m. 10/28 Discussed with Briana. Unwilling to accept transfer secondary to Medicare E/VA insurance issues. Physician has accepted but the hospital has not Discussed with Dr. KayCT surgery at [facility]. He recommended IR for bronchial artery embolization Discussed with Dr. Perry. He recommended transfer to facility while stable. Right mainstem intubation Dr. Perry willing to see patient emergent situation. Time spent on critical care excluding procedures 35 minutes Manuel Banerjee MD Oct 31, 2016 19:00
[2016-11-01] VITALS (19 sets, daily range): BP systolic 118–139; BP diastolic 57–67; PULSE 61–75; RESP 13–18; TEMP 98.8–99.4; O2SAT 94–100
[2016-11-01] MEDS: CHLORHEXIDINE GLUCONATE 2 % 1 PACK (2 CLOTHS) TOP SCH (03:12)
[2016-11-01] MEDS: PROPOFOL 1000 MG/100 ML INJ 100 ML IV SCH ×4 (03:49→23:04)
[2016-11-01] MEDS: methylPREDNISolone SOD SUCC 40 MG/1 ML VIAL IV SCH ×3 (03:49→20:27)
[2016-11-01] MEDS: PIPERACIL-TAZO 4.5 GM PREMIX 100 ML IV SCH ×4 (03:50→23:04)
[2016-11-01] MEDS: CISATRACURIUM INJ 100 MG in SODIUM CHLOR 0.9% 250 ML INJ 240 ML IV SCH ×4 (03:51→20:28)
--- NOTE | 2016-11-01 04:21 | RADRPT ---
EXAM DATE/TIME: 11/01/2016 03:03 [place] COMPARISON: CT THORAX W CONTRAST, October 24, 2016, 8:40. CHEST SINGLE AP, October 28, 2016, 3:58. INDICATIONS : Shortness of breath. MEDICAL HISTORY : Cardiovascular disease. Hypertension. SURGICAL HISTORY : None. ENCOUNTER: Subsequent ACUITY: 1 week PAIN SCORE: Non-responsive. LOCATION: Bilateral chest FINDINGS: Complete opacification of the left hemithorax again noted compatible with a combination of consolidat ion and effusion. There is modestly improved consolidation in the right lung base. No pneumothorax se en. Endotracheal tube tip is at the aisha. It should be pulled back several centimeters. Nasogastric tub e courses into the stomach. CONCLUSION: 1. Endotracheal tube needs to be pulled back several centimeters. 2. Complete opacification of the left hemithorax again noted. 3. Mild right base consolidation slightly improved. Paul Sinha MD on November 01, 2016 at 4:16 Board Certified Radiologist. This report was verified electronically.
[2016-11-01 06:01] LABS: AUTOMATED NEUTROPHIL # 8.5 TH/MM3 (1.8-7.7); BASOPHIL # 0.1 TH/MM3 (0-0.2); BASOPHIL % 1.3 % (0.0-2.0); EOSINOPHIL # 0.2 TH/MM3 (0-0.4); EOSINOPHIL % 1.9 % (0.0-4.0); HEMO FLAGS DIFF FINAL; MEAN CELL VOLUME 90.1 FL (80.0-100.0); MEAN CORPUSCULAR HGB CONC 33.3 % (32.0-36.0); MONO % 8.7 % (0.0-8.0); NEUT % 79.1 % (16.0-70.0); PLATELET COUNT 316 TH/MM3 (150-450); RED BLOOD COUNT 3.11 MIL/MM3 (4.50-5.90); WHITE BLOOD COUNT 10.8 TH/MM3 (4.0-11.0)
[2016-11-01 06:22] LABS: ALKALINE PHOSPHATASE 61 U/L (45-117); ALT (GPT) 15 U/L (12-78); ANION GAP 3 MEQ/L (5-15); AST (GOT) 8 U/L (15-37); BICARBONATE 36.6 MEQ/L (21.0-32.0); BLOOD UREA NITROGEN 31 MG/DL (7-18); CHLORIDE 108 MEQ/L (98-107); GLOMERULAR FILTRATION RATE 94 ML/MIN (>89); POTASSIUM 4.6 MEQ/L (3.5-5.1); SODIUM (NA) 148 MEQ/L (136-145); TOTAL BILIRUBIN ADULT 0.2 MG/DL (0.2-1.0)
[2016-11-01] MEDS: ATENOLOL 25 MG TAB PO SCH ×2 (08:35→20:27)
[2016-11-01] MEDS: POLYETHYLENE GLYCOL 17 GM PKG PO SCH (08:35)
[2016-11-01] MEDS: PANTOPRAZOLE SODIUM 40 MG VIAL IV SCH (08:35)
[2016-11-01] MEDS: DOCUSATE SODIUM 100 MG CAP PO SCH ×2 (08:35→20:27)
[2016-11-01] MEDS: CHLORHEXIDINE 0.12% (ORAL KIT) 15 ML CUP MT SCH ×2 (08:35→20:29)
[2016-11-01] MEDS: SENNOSIDES SYRUP 8.8 MG/5 ML CUP PO SCH (08:35)
[2016-11-01] MEDS: PHENYTOIN SODIUM 100 MG CAP PO SCH ×2 (08:36→20:27)
[2016-11-01] MEDS: SODIUM CHLORIDE 0.9% FLUSH 5 ML FLUSH IVF SCH ×2 (08:36→20:28)
--- NOTE | 2016-11-01 09:54 | HHI.CCPN ---
Subjective Remarks/Hospital Course 71-year-old male comes in complaining of cough and shortness of breath. He says for the past 2 days he has been coughing up blood. He occasionally passes clots, but often is just streaks in his mucus. He denies any chest pain, but says he is very short of breath when walking. He says he had an episode earlier in the month and he tried to come to the emergency department, but was frustrated with the wait and left. He says it went away, but has come back. He has smoked cigarettes, but quit several years ago. He does say that he currently smokes a pipe. He denies any fever or chills. He is not on any blood thinners, and this has never happened to him before. CT angio revealed Complete opacification of the left lung with central line this abrupt narrowing and nodularity central lesion or mucous plug suggested with collapse of the left lung a large effusion. 2: Called to see patient secondary to hemoptysis. Received 3 racemic epinephrine but continued to have hemoptysis. Emergently intubated using 40 mg etomidate with an 8.0 ET tube with glide scope. Dr. Wilkins at bedside to perform bronchoscopy currently. 22: Emergently intubated yesterday due to significant hemoptysis. Dr. Wilkins performed bronchoscopy at the bedside- lot of blood was removed from the trachea , which was suctioned out After repeated suctioning, lavage, and epinephrine used, bleeding was controlled. There was a mass obstructing the left lung and a large clot. A CT chest done today was discussed with Dr. Perry, left lung opacification is predominantly atelectatic lung, unless on fluid. Small apical pneumothorax, chest tube in good position. Dr. Wilkins planning for repeat bronchoscopy and biopsy today at 4 PM, with possible biopsy 2/3: Resting in bed. Chest -40 cm H2O with minimal drainage. No more bleeding. Spontaneous breathing trials ordered for today. Cytology still pending. 10/26: Afebrile. No bowel movement. Arousable on Ventolin falls commands. No drainage from chest tube. No more hemoptysis noted. Spontaneous breathing trials scheduled for today. 10/27: Afebrile. To balance overnight. Increasing hemoptysis noted from ET tube. Continue racemic epi 2 now. No plans for extubation until transfer. Waiting for "financials" prior to transfer to [facility] for evaluation by interventional pulmonology/CT surgery. 10/28: Remains sedated, orally intubated on mechanical ventilation. On neuromuscular blockade with Nimbex. Awaiting transfer to the [facility]. 10/29: Remains sedated, orally intubated on mechanical ventilation. On neuromuscular blockade with Nimbex. Awaiting transfer to [facility]. 10/30: Remains sedated, orally intubated on neuromuscular blockade. On mechanical ventilation. Awaiting transfer to [facility] 10/31: Remains sedated, orally intubated on neuromuscular blockade. On mechanical ventilation. Still awaiting transfer to [facility]. 11/01 No acute events overnight. Sedated with Fentanyl, Versed, Diprivan in addition to Nimbex. Tolerating tube feeds. Afebrile. Awaiting transfer Objective Vital Signs Date Time Temp Pulse Resp B/P Pulse Ox O2 Delivery O2 Flow Rate FiO2 11/01/16 08:25 97 40 11/01/16 06:00 64 11/01/16 04:00 98.8 16 133/67 Intake and Output 10/31/16 10/31/16 11/01/16 08:00 16:00 00:00 Intake Total 973 ml 964 ml 1136 ml Output Total 225 ml 730 ml 540 ml Balance 748 ml 234 ml 596 ml Result Diagram: 11/01/16 0503 11/01/16 0503 Other Results Laboratory Tests Test 11/01/16 05:03 White Blood Count 10.8 TH/MM3 Red Blood Count 3.11 MIL/MM3 Hemoglobin 9.3 GM/DL Hematocrit 28.0 % Mean Corpuscular Volume 90.1 FL Mean Corpuscular Hemoglobin 30.0 PG Mean Corpuscular Hemoglobin 33.3 % Concent Red Cell Distribution Width 16.0 % Platelet Count 316 TH/MM3 Mean Platelet Volume 7.5 FL Neutrophils (%) (Auto) 79.1 % Lymphocytes (%) (Auto) 9.0 % Monocytes (%) (Auto) 8.7 % Eosinophils (%) (Auto) 1.9 % Basophils (%) (Auto) 1.3 % Neutrophils # (Auto) 8.5 TH/MM3 Lymphocytes # (Auto) 1.0 TH/MM3 Monocytes # (Auto) 0.9 TH/MM3 Eosinophils # (Auto) 0.2 TH/MM3 Basophils # (Auto) 0.1 TH/MM3 CBC Comment DIFF FINAL Differential Comment Sodium Level 148 MEQ/L Potassium Level 4.6 MEQ/L Chloride Level 108 MEQ/L Carbon Dioxide Level 36.6 MEQ/L Anion Gap 3 MEQ/L Blood Urea Nitrogen 31 MG/DL Creatinine 0.81 MG/DL Estimat Glomerular Filtration 94 ML/MIN Rate Random Glucose 136 MG/DL Calcium Level 7.5 MG/DL Total Bilirubin 0.2 MG/DL Aspartate Amino Transf 8 U/L (AST/SGOT) Alanine Aminotransferase 15 U/L (ALT/SGPT) Alkaline Phosphatase 61 U/L Total Protein 4.8 GM/DL Albumin 1.7 GM/DL Imaging Last Impressions Chest X-Ray 11/01/16 0600 Signed Impressions: Service Date/Time: Tuesday, November 01, 2016 03:03 - CONCLUSION: 1. Endotracheal tube needs to be pulled back several centimeters. 2. Complete opacification of the left hemithorax again noted. 3. Mild right base consolidation slightly improved. Paul Sinha MD Chest CT 10/24/16 0000 Signed Impressions: Service Date/Time: October 08:40 - CONCLUSION: 1. Left lung collapse/consolidation similar to the prior study with cut off at the distal left mainstem bronchus again suggesting either mucus plugging or endobronchial mass. 2. Left pleural effusion slightly decreased. Hydropneumothorax now noted with new left sided pleural air-fluid level. No discrete septations or loculations identified. 3. Increase in patchy right lung atelectasis versus mild consolidation. 4. Diffusely mildly dilated fluid-filled esophagus. Jose Cloud MD CT Angiography 10/21/16 0820 Signed Impressions: Service Date/Time: Friday, October 21, 2016 09:13 - CONCLUSION: Complete opacification of the left lung with central line this abrupt narrowing and nodularity central lesion or mucous plug suggested with collapse of the left lung a large effusion. Negative for pulmonary. Jonathan Farrell MD Objective Remarks GENERAL/NEURO: 71-year-old male, intubated sedated, on neuromuscular blockade SKIN: Warm and dry. No rash HEAD: Normocephalic. EYES: No scleral icterus. No injection or drainage. ENT: Orotracheally intubated, today with scant bloody secretions NECK: Supple, trachea midline. No JVD or lymphadenopathy. CARDIOVASCULAR: Bradycardic, RRR. S1, S2. No S4. Without murmurs, gallops, or rubs. RESPIRATORY: Absent breath sounds left side. Coarse crackles appreciated right lobe. No significant blood from ETT. Left chest tube clean dry and intact. With no output GASTROINTESTINAL: Abdomen soft, nondistended. Hypoactive bowel sounds. MUSCULOSKELETAL: Without significant peripheral edema. Procedures chest tube placement A/P Problem List: (1) Acute respiratory failure ICD Code: J96.00 Status: Acute (2) Pleural effusion ICD Code: J90 Status: Acute (3) Hypoxia ICD Code: R09.02 Status: Acute (4) Bronchiolar obstruction ICD Code: J98.09 Status: Acute (5) Mass of left lung ICD Code: R91.8 Status: Acute (6) Hemoptysis ICD Code: R04.2 Status: Acute Assessment and Plan Neuro/Psych: History of seizures Currently on propofol/fentanyl/Versed drips for sedation/analgesia while intubated. On Nimbex for neuromuscular blockade. Seizure precautions On Dilantin 300 twice a day. Dilantin level 8.8 on 10/24, CV: Sinus tachycardia History of hypertension History dyslipidemia On Atenolol 25 mg BID Monitor HR and BP keep MAP>65mmHg Resp: Acute respiratory failure Hemoptysis Left pleural effusion, small pneumothorax status post chest tube L main bronchus from obstruction from probable lung CA PRVC/ACV ventilation. 16/500/5/40 Ventilator bundle Bronchodilator therapy every 6 hours and as needed Solumederol 40mg Q8 Chest tube - 20 Estonian - -[address] of the chest 10/24/16 shows that the opacification is predominantly collapsed lung, effusion is small to moderate with loculation, very small apical pneumothorax Emergent bronchoscopy for hemoptysis by Dr. Wilkins/pulmonology 10/23, repeat bronchoscopy and biopsy 10/24 Hemoptysis: Likely sources left main bronchus mass CT surgery evaluation Dr. Colbert. Plan for transfer to [facility] for evaluation of left main bronchus mass - awaiting ICU bed. GI: Hypoalbuminemia Continue Jevity 1.5 goal 50 cc an hour Protonix for GI prophylaxis Colace/as needed Senokot for bowel regimen : BPH Monitor renal function, I/O's, electrolytes replacement per protocol. Place on Free H20 200ml Q12, monitor sodium level. Diurese with Bumex 1mg x1 Endo: Sliding-scale insulin if indicated Heme: Leukocytosis Normocytic anemia Monitor CBC ID: Klebsiella pneumonia Continue with abx ( Zosyn started 10/21) monitor for signs of infections ( Fever , WBC) Discontinued Zithromax 10/27 (day 7) Pertinent cultures 10/22 - bronchoscopy - no growth Sputum - Klebsiella pneumonia Blood cultures 2 - no growth MSK: PT evaluate and treat Access - Utilize peripheral IV. Central line if indicated Prophylaxis - GI - Protonix - DVT- SCD/pharmacological prophylaxis contraindicated with hemoptysis Dr. Colbert requested transferred to [facility] for evaluation of left main bronchus lesion. On 10/28, approximately 1900 hours, patient with gross hemoptysis. Received racemic epinephrine 0.5% 2. Continue to have hemoptysis and decision was made to perform fiberoptic bronchoscopy. Upon direct visualization, large fresh clot located near the aisha by the left main bronchus. This was with 2 cc of 1 /10,000 epinephrine with more bleeding noted. Decision was made to intubate down right mainstem which was performed. Irrigation with multiple aliquots of sterile saline to clear right lung. Saturations remain 100% throughout the procedure. On bronchoscopies, able to visualize right upper lobe, middle lobe and lower lobe through ET tube. Chest x-ray reviewed post procedure showed positioning a tube and right mainstem. Per Dr. Banerjee: Discussed with Dr. Early and Dr. Villanueva at [facility]. Unwilling to accept transfer secondary to CT surgery available at [facility]. Patient discussed with Dr. Motta at [facility]/[place]. Unwilling to accept patient secondary to one bed available and transfer coronary unavailable until a.m. 10/28 Discussed with [facility]. Unwilling to accept transfer secondary to Medicare E/VA insurance issues. Physician has accepted but the hospital has not Discussed with Dr. Jones surgery at [facility]. He recommended IR for bronchial artery embolization Discussed with Dr. Perry. He recommended transfer to facility while stable. Right mainstem intubation Dr. Perry willing to see patient emergent situation. Time spent on critical care excluding procedures 30minutes Cherry Fuller MD Nov 01, 2016 09:54
[2016-11-01] MEDS: INSULIN NovoLIN REGULAR SUPPLEMENTAL SCALE SQ SCH ×3 (10:00→20:33)
[2016-11-01] MEDS ORDERED: DEXTROSE 50% IN WATER 50 ML VIAL(D50) IV PUSH PRN (10:00)
[2016-11-01] MEDS ORDERED: BUMETANIDE INJ 1 MG/4 ML VIAL IV PUSH ONE (10:00)
[2016-11-01] MEDS: FREE WATER G-TUBE SCH ×2 (10:00→20:28)
[2016-11-01] MEDS ORDERED: GLUCAGON 1 MG/ML VIAL OTHER PRN (10:00)
[2016-11-01] MEDS: RESP: ALBUTEROL 2.5 MG/IPRATROPIUM 0.5 MG NEB (SCH) NEB ×3 (10:22→20:11)
[2016-11-01 10:42] LABS: BLOOD GAS BASE EXCESS 7.9 mmol/L (-2-2); BLOOD GAS HCO3 33 mmol/L (22-26); BLOOD GAS METHEMOGLOBIN 1.1 % (0-2); BLOOD GAS O2 HGB SATURATION 93 % (90-100); BLOOD GAS OXYGEN CONTENT 12.1 Vol % (12.0-20.0); BLOOD GAS PCO2 61 mmHg (38-42); BLOOD GAS PO2 78 mmHg (61-120); BLOOD GAS TOTAL HGB 9.2 G/DL (12.0-16.0); CRITICAL VALUE YES; OXYGEN DEVICE VENTILATOR; TEMP CORR TO 98.6
[2016-11-01 10:44] LABS: DRAW SITE RT RADIAL; FIO2 40 %; NUMBER OF ARTERIAL PUNCTURES 1; STAT NO; ULNAR PULSE PRESENT
[2016-11-01] MEDS: fentaNYL DRIP 250 ML IV SCH ×2 (11:47→20:28)
[2016-11-01] MEDS: MIDAZOLAM 100 MG/ML INJ 100 ML IV SCH (17:05)
--- NOTE | 2016-11-01 17:59 | HHI.PR ---
Subjective Remarks 71 YOWM with COPD, Pl effusion.left lung mass, atelactesis Had Chest tube placed with some re expansion of left lung Cytology negative CTS evaluated pt, plans to tr to [facility] On AC, sedated, on Nimbex drip, Diprivan and Versed Accepted at [facility] awaiting bed availablity No Hemoptysis Objective Vital Signs Vital Signs Date Time Temp Pulse Resp B/P Pulse Ox O2 Delivery O2 Flow Rate FiO2 11/01/16 16:06 95 40 11/01/16 16:00 40 11/01/16 16:00 63 11/01/16 16:00 99.0 63 16 120/61 95 11/01/16 14:00 67 11/01/16 12:10 99 40 11/01/16 12:00 40 11/01/16 12:00 72 11/01/16 12:00 99.1 72 16 139/66 94 11/01/16 10:00 66 11/01/16 08:25 97 40 11/01/16 08:00 99.0 66 16 119/57 96 11/01/16 08:00 40 11/01/16 08:00 66 11/01/16 06:00 64 11/01/16 04:25 95 40 11/01/16 04:00 40 11/01/16 04:00 98.8 68 16 133/67 96 11/01/16 04:00 61 11/01/16 02:00 69 11/01/16 01:25 96 40 11/01/16 00:00 99.4 65 13 118/64 96 11/01/16 00:00 40 11/01/16 00:00 65 10/31/16 22:23 94 40 10/31/16 22:00 66 10/31/16 20:00 99.2 67 13 119/64 95 10/31/16 20:00 67 10/31/16 20:00 40 10/31/16 19:23 94 40 10/31/16 18:00 77 I/O 10/31/16 10/31/16 10/31/16 11/01/16 11/01/16 11/01/16 07:00 15:00 23:00 07:00 15:00 23:00 Intake Total 973 ml 964 ml 1136 ml 789 ml 2983 ml Output Total 225 ml 730 ml 540 ml 390 ml 1395 ml Balance 748 ml 234 ml 596 ml 399 ml 1588 ml IV Total 638 ml 614 ml 721 ml 478 ml 2209 ml Tube Feeding 335 ml 350 ml 415 ml 311 ml 474 ml Tube Irrigant 100 ml Other 200 ml Output Urine Total 100 ml 700 ml 500 ml 300 ml 1225 ml Stool Total 75 ml 0 ml 50 ml 150 ml Chest Tube Drainage Total 50 ml 30 ml 40 ml 40 ml 20 ml Result Diagram: 11/01/16 0503 11/01/16 0503 Objective Remarks GENERAL:WBWn WM , mild sob SKIN: Warm and dry. HEAD: Normocephalic. EYES: No scleral icterus. No injection or drainage. NECK: Supple, trachea midline. No JVD or lymphadenopathy. CARDIOVASCULAR: Regular rate and rhythm without murmurs, gallops, or rubs. RESPIRATORY: Breath sounds equal bilaterally. No accessory muscle use. Left chest tube draining Decreased BS left GASTROINTESTINAL: Abdomen soft, non-tender, nondistended. MUSCULOSKELETAL: No cyanosis, or edema. BACK: Nontender without obvious deformity. No CVA tenderness. A/P Assessment and Plan Left lung mass Atelactesis LargeHemoptysis COPD Pl effusion, s/p chest tube VDRF PLAN: Vent Support On Nimbex drip Racemic epi Nebs prn Chest tube to suction Cont abx Tr to [facility] when bed available covering over weekend. Valeriy Wilkins MD Nov 01, 2016 17:59
[2016-11-02] VITALS (9 sets, daily range): BP systolic 115–141; BP diastolic 62–69; PULSE 61–66; RESP 18; TEMP 98.9–99.1; O2SAT 91–97
[2016-11-02] MEDS: CISATRACURIUM INJ 100 MG in SODIUM CHLOR 0.9% 250 ML INJ 240 ML IV SCH ×3 (01:24→13:45)
[2016-11-02] MEDS: INSULIN NovoLIN REGULAR SUPPLEMENTAL SCALE SQ SCH ×2 (03:43→10:48)
[2016-11-02] MEDS: CHLORHEXIDINE GLUCONATE 2 % 1 PACK (2 CLOTHS) TOP SCH (03:43)
[2016-11-02] MEDS: RESP: ALBUTEROL 2.5 MG/IPRATROPIUM 0.5 MG NEB (SCH) NEB ×2 (03:44→08:42)
--- NOTE | 2016-11-02 04:42 | RADRPT ---
EXAM DATE/TIME: 11/02/2016 03:10 [place] COMPARISON: CHEST SINGLE AP, November 01, 2016, 3:03. INDICATIONS : Shortness of breath, possible pulmonary disease. MEDICAL HISTORY : Cardiovascular disease. Hypertension SURGICAL HISTORY : None. ENCOUNTER: Subsequent ACUITY: 1 week PAIN SCORE: Non-responsive. LOCATION: Bilateral chest FINDINGS: Near-complete opacification of the left hemithorax again noted. Mild consolidation and small effusion developing at the right base. I don't see a pneumothorax on either side. Endotracheal tube tip is about 1 cm above the aisha. There is a nasogastric tube with tip in the sto mach. CONCLUSION: 1. Consolidation and small effusion developing right base. 2. Persistent complete opacification of the left hemithorax related to consolidation and effusion. 3. Endotracheal tube tip is about 1 cm above the aisha. Paul Sinha MD on November 02, 2016 at 4:39 Board Certified Radiologist. This report was verified electronically.
[2016-11-02 05:53] LABS: AUTOMATED NEUTROPHIL # 8.9 TH/MM3 (1.8-7.7); BASOPHIL # 0.1 TH/MM3 (0-0.2); BASOPHIL % 0.9 % (0.0-2.0); EOSINOPHIL # 0.2 TH/MM3 (0-0.4); EOSINOPHIL % 1.4 % (0.0-4.0); HEMATOCRIT 28.8 % (39.0-51.0); HEMO FLAGS DIFF FINAL; LYMPH % 11.7 % (9.0-44.0); LYMPHOCYTE # 1.4 TH/MM3 (1.0-4.8); MEAN CELL VOLUME 89.1 FL (80.0-100.0); MEAN CORPUSCULAR HEMOGLOBIN 29.2 PG (27.0-34.0); MEAN CORPUSCULAR HGB CONC 32.8 % (32.0-36.0); MONO % 8.7 % (0.0-8.0); NEUT % 77.3 % (16.0-70.0); PLATELET COUNT 323 TH/MM3 (150-450); RED BLOOD COUNT 3.23 MIL/MM3 (4.50-5.90); RED CELL DISTRIBUTION WIDTH 15.5 % (11.6-17.2); WHITE BLOOD COUNT 11.6 TH/MM3 (4.0-11.0)
[2016-11-02] MEDS: methylPREDNISolone SOD SUCC 40 MG/1 ML VIAL IV SCH (06:06)
[2016-11-02] MEDS: PROPOFOL 1000 MG/100 ML INJ 100 ML IV SCH ×3 (06:06→13:45)
[2016-11-02 06:07] LABS: BICARBONATE 38.4 MEQ/L (21.0-32.0); MAGNESIUM 2.5 MG/DL (1.5-2.5); POTASSIUM 4.4 MEQ/L (3.5-5.1)
[2016-11-02] MEDS: PIPERACIL-TAZO 4.5 GM PREMIX 100 ML IV SCH ×2 (06:09→10:49)
[2016-11-02] MEDS: PANTOPRAZOLE SODIUM 40 MG VIAL IV SCH (08:05)
[2016-11-02] MEDS: PHENYTOIN SODIUM 100 MG CAP PO SCH (08:06)
[2016-11-02] MEDS: ATENOLOL 25 MG TAB PO SCH (08:06)
[2016-11-02] MEDS: DOCUSATE SODIUM 100 MG CAP PO SCH (08:06)
[2016-11-02] MEDS: POLYETHYLENE GLYCOL 17 GM PKG PO SCH (08:06)
[2016-11-02] MEDS: SENNOSIDES SYRUP 8.8 MG/5 ML CUP PO SCH (08:06)
[2016-11-02] MEDS: FREE WATER G-TUBE SCH (08:06)
[2016-11-02] MEDS: SODIUM CHLORIDE 0.9% FLUSH 5 ML FLUSH IVF SCH (08:06)
[2016-11-02] MEDS: CHLORHEXIDINE 0.12% (ORAL KIT) 15 ML CUP MT SCH (08:07)
[2016-11-02] MEDS: fentaNYL DRIP 250 ML IV SCH (10:47)
[2016-11-02] MEDS: MIDAZOLAM 100 MG/ML INJ 100 ML IV SCH (10:47)
--- NOTE | 2016-11-02 12:13 | HHI.CCPN ---
Subjective Remarks/Hospital Course 71-year-old male comes in complaining of cough and shortness of breath. He says for the past 2 days he has been coughing up blood. He occasionally passes clots, but often is just streaks in his mucus. He denies any chest pain, but says he is very short of breath when walking. He says he had an episode earlier in the month and he tried to come to the emergency department, but was frustrated with the wait and left. He says it went away, but has come back. He has smoked cigarettes, but quit several years ago. He does say that he currently smokes a pipe. He denies any fever or chills. He is not on any blood thinners, and this has never happened to him before. CT angio revealed Complete opacification of the left lung with central line this abrupt narrowing and nodularity central lesion or mucous plug suggested with collapse of the left lung a large effusion. 2: Called to see patient secondary to hemoptysis. Received 3 racemic epinephrine but continued to have hemoptysis. Emergently intubated using 40 mg etomidate with an 8.0 ET tube with glide scope. Dr. Wilkins at bedside to perform bronchoscopy currently. 22: Emergently intubated yesterday due to significant hemoptysis. Dr. Wilkins performed bronchoscopy at the bedside- lot of blood was removed from the trachea , which was suctioned out After repeated suctioning, lavage, and epinephrine used, bleeding was controlled. There was a mass obstructing the left lung and a large clot. A CT chest done today was discussed with Dr. Perry, left lung opacification is predominantly atelectatic lung, unless on fluid. Small apical pneumothorax, chest tube in good position. Dr. Wilkins planning for repeat bronchoscopy and biopsy today at 4 PM, with possible biopsy 2/3: Resting in bed. Chest -40 cm H2O with minimal drainage. No more bleeding. Spontaneous breathing trials ordered for today. Cytology still pending. 10/26: Afebrile. No bowel movement. Arousable on Ventolin falls commands. No drainage from chest tube. No more hemoptysis noted. Spontaneous breathing trials scheduled for today. 10/27: Afebrile. To balance overnight. Increasing hemoptysis noted from ET tube. Continue racemic epi 2 now. No plans for extubation until transfer. Waiting for "financials" prior to transfer to [facility] for evaluation by interventional pulmonology/CT surgery. 10/28: Remains sedated, orally intubated on mechanical ventilation. On neuromuscular blockade with Nimbex. Awaiting transfer to the [facility] [place]. 10/29: Remains sedated, orally intubated on mechanical ventilation. On neuromuscular blockade with Nimbex. Awaiting transfer to [facility]. 10/30: Remains sedated, orally intubated on neuromuscular blockade. On mechanical ventilation. Awaiting transfer to [facility] 10/31: Remains sedated, orally intubated on neuromuscular blockade. On mechanical ventilation. Still awaiting transfer to [facility]. 11/01 No acute events overnight. Sedated with Fentanyl, Versed, Diprivan in addition to Nimbex. Tolerating tube feeds. Afebrile. Awaiting transfer Subjective 11/02: No acute events overnight. Sedated on fentanyl, Versed/Dermagran and paralyzed with Nimbex. Tolerating tube feeding. Tmax 99.2. Noted that ET tube no longer in right lobe currently above aisha. We'll readjust prior to transfer. Bed currently available at [facility] [place]. Objective Vital Signs Date Time Temp Pulse Resp B/P Pulse Ox O2 Delivery O2 Flow Rate FiO2 11/02/16 10:00 66 11/02/16 08:40 91 40 11/02/16 08:00 99.0 18 141/69 Intake and Output 11/01/16 11/01/16 11/02/16 08:00 16:00 00:00 Intake Total 789 ml 2983 ml 1325 ml Output Total 390 ml 1395 ml 570 ml Balance 399 ml 1588 ml 755 ml Result Diagram: 11/02/16 0535 11/02/16 0535 Objective Remarks GENERAL/NEURO: 71-year-old male, intubated sedated, on neuromuscular blockade SKIN: Warm and dry. No rash HEAD: Normocephalic. EYES: No scleral icterus. No injection or drainage. ENT: Orotracheally intubated, today with scant bloody secretions NECK: Supple, trachea midline. No JVD or lymphadenopathy. CARDIOVASCULAR: RRR. S1, S2. No S4. Without murmurs, gallops, or rubs. RESPIRATORY: Absent breath sounds left side. Coarse crackles appreciated right lobe. No significant blood from ETT. Left chest tube clean dry and intact. Cc output overnight serosanguineous GASTROINTESTINAL: Abdomen soft, nondistended. Hypoactive bowel sounds. MUSCULOSKELETAL: 1+ lower extremity edema bilaterally Procedures chest tube placement Urinary Catheter: Yes Assessment to: Continue Lipscomb insert reason: Prolonged Immobilization Vascular Central Line Catheter: No Assessment to: Continue A/P Problem List: (1) Acute respiratory failure ICD Code: J96.00 Status: Acute (2) Pleural effusion ICD Code: J90 Status: Acute (3) Hypoxia ICD Code: R09.02 Status: Acute (4) Bronchiolar obstruction ICD Code: J98.09 Status: Acute (5) Mass of left lung ICD Code: R91.8 Status: Acute (6) Hemoptysis ICD Code: R04.2 Status: Acute Assessment and Plan Neuro/Psych: History of seizures Currently on propofol 30 mg/kg/m/fentanyl 200 mg an hour/Versed 5 mg an hour drips for sedation/analgesia while intubated. On Nimbex four micrograms per kilogram per minute for neuromuscular blockade. Seizure precautions On Dilantin 300 twice a day. Dilantin level 8.8 on 10/24, CV: History of hypertension History dyslipidemia On Atenolol 25 mg BID Monitor HR and BP keep MAP>65mmHg Resp: Acute respiratory failure Hemoptysis Left pleural effusion, small pneumothorax status post chest tube L main bronchus from obstruction from probable lung CA PRVC/ACV ventilation. 18/500/5/40 Ventilator bundle Bronchodilator therapy every 6 hours and as needed Solumederol 40mg Q8 Chest tube - 20 Latvian - -40 cm H2O. [address] of the chest 10/24/16 shows that the opacification is predominantly collapsed lung, effusion is small to moderate with loculation, very small apical pneumothorax Emergent bronchoscopy for hemoptysis by Dr. Wilkins/pulmonology 10/23, repeat bronchoscopy and biopsy 10/24 Hemoptysis: Likely sources left main bronchus mass CT surgery evaluation Dr. Colbert. Plan for transfer to [facility] for evaluation of left main bronchus mass today. Chest x-ray revealed ET tube no longer in right bronchus. Above aisha. Place in right bronchus prior to transfer GI: Hypoalbuminemia Continue Jevity 1.5 goal 50 cc an hour Protonix for GI prophylaxis Colace twice a day/Senokot daily MiraLAX daily for bowel regimen /FEN: BPH Hypernatremia Monitor renal function, I/O's, electrolytes replacement per protocol. Place on Free H20 200ml Q12, monitor sodium level. Previously on Terazosin Endo: Sliding-scale insulin if indicated Heme: Leukocytosis Normocytic anemia Monitor CBC ID: Klebsiella pneumonia Zosyn started 10/21 has been discontinued monitor for signs of infections (Fever, WBC) Discontinued Zithromax 10/27 (day 7) Pertinent cultures 10/22 - bronchoscopy - no growth Sputum - Klebsiella pneumonia Blood cultures 2 - no growth MSK: PT evaluate and treat Access - Utilize peripheral IV. Central line if indicated Prophylaxis - GI - Protonix - DVT- SCD/pharmacological prophylaxis contraindicated with hemoptysis Dr. Colbert requested transferred to [facility] for evaluation of left main bronchus lesion. On 10/28, approximately 1900 hours, patient with gross hemoptysis. Received racemic epinephrine 0.5% 2. Continue to have hemoptysis and decision was made to perform fiberoptic bronchoscopy. Upon direct visualization, large fresh clot located near the aisha by the left main bronchus. This was with 2 cc of 1 /10,000 epinephrine with more bleeding noted. Decision was made to intubate down right mainstem which was performed. Irrigation with multiple aliquots of sterile saline to clear right lung. Saturations remain 100% throughout the procedure. On bronchoscopies, able to visualize right upper lobe, middle lobe and lower lobe through ET tube. Chest x-ray reviewed post procedure showed positioning a tube and right mainstem. Per Dr. solano and Discussed with Dr. Early and Dr. Villanueva at [facility]. Unwilling to accept transfer secondary to CT surgery available at [facility]. Patient discussed with Dr. Motta at [facility]/[place]. Unwilling to accept patient secondary to one bed available and transfer coronary unavailable until a.m. 10/28 Discussed with [facility]. Unwilling to accept transfer secondary to Medicare E/VA insurance issues. Physician has accepted but the hospital has not Discussed with Dr. KayCT surgery at [facility]. He recommended IR for bronchial artery embolization Discussed with Dr. Perry. He recommended transfer to facility while stable. Right mainstem intubation Dr. Perry willing to see patient emergent situation. Critical Care: The total critical care time was 35 minutes. Time to perform other separately billable procedures was not included in the critical care time. Gallito Rogers MD Nov 02, 2016 12:13
--- NOTE | 2016-11-02 12:16 | HHI.DS ---
Discharge Summary Admission Date Oct 21, 2016 at 10:20 Admitting Diagnosis Pneumothorax, pulmonary effusion, bronchiole obstruciton (1) Pneumothorax ICD Code: J93.9 Diagnosis: Principal (2) Pleural effusion ICD Code: J90 Diagnosis: Principal (3) Mass of left lung ICD Code: R91.8 Diagnosis: Principal (4) Hemoptysis ICD Code: R04.2 Diagnosis: Principal (5) Acute respiratory failure ICD Code: J96.00 Diagnosis: Principal (6) Bronchiolar obstruction ICD Code: J98.09 Diagnosis: Principal (7) Hypoxia ICD Code: R09.02 Diagnosis: Principal Procedures chest tube placement Brief History 71-year-old male comes in complaining of cough and shortness of breath. He says for the past 2 days he has been coughing up blood. He occasionally passes clots, but often is just streaks in his mucus. He denies any chest pain, but says he is very short of breath when walking. He says he had an episode earlier in the month and he tried to come to the emergency department, but was frustrated with the wait and left. He says it went away, but has come back. He has smoked cigarettes, but quit several years ago. He does say that he currently smokes a pipe. He denies any fever or chills. He is not on any blood thinners, and this has never happened to him before. CT angio revealed Complete opacification of the left lung with central line this abrupt narrowing and nodularity central lesion or mucous plug suggested with collapse of the left lung a large effusion. CBC/BMP: 11/02/16 0535 11/02/16 0535 Significant Findings Laboratory Tests Test 10/30/16 10/31/16 11/01/16 11/01/16 12:45 05:16 05:03 10:30 Red Blood Count 3.31 MIL/MM3 3.17 MIL/MM3 3.11 MIL/MM3 (4.50-5.90) (4.50-5.90) (4.50-5.90) Hemoglobin 9.6 GM/DL 9.5 GM/DL 9.3 GM/DL (13.0-17.0) (13.0-17.0) (13.0-17.0) Hematocrit 29.1 % 28.3 % 28.0 % (39.0-51.0) (39.0-51.0) (39.0-51.0) Neutrophils (%) (Auto) 79.2 % 75.8 % 79.1 % (16.0-70.0) (16.0-70.0) (16.0-70.0) Monocytes (%) (Auto) 8.5 % (0.0-8.0) 8.4 % (0.0-8.0) 8.7 % (0.0-8.0) Sodium Level 148 MEQ/L 148 MEQ/L 148 MEQ/L (136-145) (136-145) (136-145) Chloride Level 111 MEQ/L 111 MEQ/L 108 MEQ/L (98-107) (98-107) (98-107) Carbon Dioxide Level 33.2 MEQ/L 33.1 MEQ/L 36.6 MEQ/L (21.0-32.0) (21.0-32.0) (21.0-32.0) Anion Gap 4 MEQ/L (5-15) 4 MEQ/L (5-15) 3 MEQ/L (5-15) Blood Urea Nitrogen 28 MG/DL (7-18) 32 MG/DL (7-18) 31 MG/DL (7-18) Random Glucose 163 MG/DL 139 MG/DL 136 MG/DL (74-106) (74-106) (74-106) Calcium Level 7.6 MG/DL 7.7 MG/DL 7.5 MG/DL (8.5-10.1) (8.5-10.1) (8.5-10.1) Aspartate Amino Transf 13 U/L (15-37) 12 U/L (15-37) 8 U/L (15-37) (AST/SGOT) Total Protein 4.9 GM/DL 4.8 GM/DL 4.8 GM/DL (6.4-8.2) (6.4-8.2) (6.4-8.2) Albumin 1.7 GM/DL 1.8 GM/DL 1.7 GM/DL (3.4-5.0) (3.4-5.0) (3.4-5.0) Neutrophils # (Auto) 8.5 TH/MM3 (1.8-7.7) Blood Gas HCO3 33 mmol/L (22-26) Blood Gas Base Excess 7.9 mmol/L (-2-2) Arterial Blood pH 7.36 (7.380-7.420) Arterial Blood Partial 61 mmHg (38-42) Pressure CO2 Blood Gas Hemoglobin 9.2 G/DL (12.0-16.0) Test 11/02/16 05:35 White Blood Count 11.6 TH/MM3 (4.0-11.0) Red Blood Count 3.23 MIL/MM3 (4.50-5.90) Hemoglobin 9.4 GM/DL (13.0-17.0) Hematocrit 28.8 % (39.0-51.0) Neutrophils (%) (Auto) 77.3 % (16.0-70.0) Monocytes (%) (Auto) 8.7 % (0.0-8.0) Neutrophils # (Auto) 8.9 TH/MM3 (1.8-7.7) Monocytes # (Auto) 1.0 TH/MM3 (0-0.9) Sodium Level 146 MEQ/L (136-145) Carbon Dioxide Level 38.4 MEQ/L (21.0-32.0) Anion Gap 2 MEQ/L (5-15) Blood Urea Nitrogen 31 MG/DL (7-18) Random Glucose 125 MG/DL (74-106) Calcium Level 7.6 MG/DL (8.5-10.1) Imaging Last Impressions Chest X-Ray 11/02/16 0000 Signed Impressions: Service Date/Time: Wednesday, November 02, 2016 03:10 - CONCLUSION: 1. Consolidation and small effusion developing right base. 2. Persistent complete opacification of the left hemithorax related to consolidation and effusion. 3. Endotracheal tube tip is about 1 cm above the aisha. Paul Sinha MD Chest CT 10/24/16 0000 Signed Impressions: Service Date/Time: October 08:40 - CONCLUSION: 1. Left lung collapse/consolidation similar to the prior study with cut off at the distal left mainstem bronchus again suggesting either mucus plugging or endobronchial mass. 2. Left pleural effusion slightly decreased. Hydropneumothorax now noted with new left sided pleural air-fluid level. No discrete septations or loculations identified. 3. Increase in patchy right lung atelectasis versus mild consolidation. 4. Diffusely mildly dilated fluid-filled esophagus. Jose Cloud MD CT Angiography 10/21/16 0820 Signed Impressions: Service Date/Time: Friday, October 21, 2016 09:13 - CONCLUSION: Complete opacification of the left lung with central line this abrupt narrowing and nodularity central lesion or mucous plug suggested with collapse of the left lung a large effusion. Negative for pulmonary. Jonathan Farrell MD PE at Discharge GENERAL/NEURO: 71-year-old male, intubated sedated and paralyzed. SKIN: Warm and dry. No rash HEAD: Normocephalic. EYES: No scleral icterus. No injection or drainage. ENT: Orotracheally intubated, no bloody secretions NECK: Supple, trachea midline. No JVD or lymphadenopathy. CARDIOVASCULAR: Regular rate and rhythm without murmurs, gallops, or rubs. RESPIRATORY: Absent breath sounds left side. Coarse crackles appreciated right lobe. No significant blood from ETT GASTROINTESTINAL: Abdomen soft, non-tender, nondistended. MUSCULOSKELETAL: Plus peripheral edema Transfer Summary Neuro/Psych: History of seizures Currently on propofol 30 mg/kg/m/fentanyl 200 mg an hour/Versed 5 mg an hour drips for sedation/analgesia while intubated. On Nimbex four micrograms per kilogram per minute for neuromuscular blockade. Seizure precautions On Dilantin 300 twice a day. Dilantin level 8.8 on 10/24, CV: History of hypertension History dyslipidemia On Atenolol 25 mg BID Monitor HR and BP keep MAP>65mmHg Resp: Acute respiratory failure Hemoptysis Left pleural effusion, small pneumothorax status post chest tube L main bronchus from obstruction from probable lung CA PRVC/ACV ventilation. 18/500/5/40 Ventilator bundle Bronchodilator therapy every 6 hours and as needed Solumederol 40mg Q8 Chest tube - 20 Albanian - -40 cm H2O. 40 cc past [address] of the chest 10/24/16 shows that the opacification is predominantly collapsed lung, effusion is small to moderate with loculation, very small apical pneumothorax Emergent bronchoscopy for hemoptysis by Dr. Wilkins/pulmonology 10/23, repeat bronchoscopy and biopsy 10/24 Hemoptysis: Likely sources left main bronchus mass CT surgery evaluation Dr. Colbert. Plan for transfer to [facility] for evaluation of left main bronchus mass today. Chest x-ray revealed ET tube no longer in right bronchus. Above aisha. Place in right bronchus prior to transfer GI: Hypoalbuminemia Continue Jevity 1.5 goal 50 cc an hour Protonix for GI prophylaxis Colace twice a day/Senokot daily MiraLAX daily for bowel regimen /FEN: BPH Hypernatremia Monitor renal function, I/O's, electrolytes replacement per protocol. Place on Free H20 200ml Q12, monitor sodium level. Endo: Sliding-scale insulin if indicated Heme: Leukocytosis Normocytic anemia Monitor CBC ID: Klebsiella pneumonia Continue with abx ( Zosyn started 10/21) monitor for signs of infections ( Fever , WBC) Discontinued Zithromax 10/27 (day 7) Pertinent cultures 10/22 - bronchoscopy - no growth Sputum - Klebsiella pneumonia Blood cultures 2 - no growth MSK: PT evaluate and treat Access - Utilize peripheral IV. Central line if indicated Prophylaxis - GI - Protonix - DVT- SCD/pharmacological prophylaxis contraindicated with hemoptysis Dr. Colbert requested transferred to [facility] for evaluation of left main bronchus lesion. On 10/28, approximately 1900 hours, patient with gross hemoptysis. Received racemic epinephrine 0.5% 2. Continue to have hemoptysis and decision was made to perform fiberoptic bronchoscopy. Upon direct visualization, large fresh clot located near the aisha by the left main bronchus. This was with 2 cc of 1 /10,000 epinephrine with more bleeding noted. Decision was made to intubate down right mainstem which was performed. Irrigation with multiple aliquots of sterile saline to clear right lung. Saturations remain 100% throughout the procedure. On bronchoscopies, able to visualize right upper lobe, middle lobe and lower lobe through ET tube. Chest x-ray reviewed post procedure showed positioning a tube and right mainstem. Per Dr. solano and Discussed with Dr. Early and Dr. Villanueva at [facility]. Unwilling to accept transfer secondary to CT surgery available at [facility]. Patient discussed with Dr. Motta at [facility]/[place]. Unwilling to accept patient secondary to one bed available and transfer coronary unavailable until a.m. 10/28 Discussed with [facility]. Unwilling to accept transfer secondary to Medicare E/VA insurance issues. Physician has accepted but the hospital has not Discussed with Dr. KayCT surgery at [facility]. He recommended IR for bronchial artery embolization Discussed with Dr. Perry. He recommended transfer to facility while stable. Right mainstem intubation Dr. Perry willing to see patient emergent situation. Critical Care: The total critical care time was 35 minutes. Time to perform other separately billable procedures was not included in the critical care time. Hospital Course 71-year-old male comes in complaining of cough and shortness of breath. He says for the past 2 days he has been coughing up blood. He occasionally passes clots, but often is just streaks in his mucus. He denies any chest pain, but says he is very short of breath when walking. He says he had an episode earlier in the month and he tried to come to the emergency department, but was frustrated with the wait and left. He says it went away, but has come back. He has smoked cigarettes, but quit several years ago. He does say that he currently smokes a pipe. He denies any fever or chills. He is not on any blood thinners, and this has never happened to him before. CT angio revealed Complete opacification of the left lung with central line this abrupt narrowing and nodularity central lesion or mucous plug suggested with collapse of the left lung a large effusion. 2/1: Called to see patient secondary to hemoptysis. Received 3 racemic epinephrine but continued to have hemoptysis. Emergently intubated using 40 mg etomidate with an 8.0 ET tube with glide scope. Dr. Wilkins at bedside to perform bronchoscopy currently. 2/2: Emergently intubated yesterday due to significant hemoptysis. Dr. Wilkins performed bronchoscopy at the bedside- lot of blood was removed from the trachea , which was suctioned out After repeated suctioning, lavage, and epinephrine used, bleeding was controlled. There was a mass obstructing the left lung and a large clot. A CT chest done today was discussed with Dr. Perry, left lung opacification is predominantly atelectatic lung, unless on fluid. Small apical pneumothorax, chest tube in good position. Dr. Wilkins planning for repeat bronchoscopy and biopsy today at 4 PM, with possible biopsy 2/3: Resting in bed. Chest -40 cm H2O with minimal drainage. No more bleeding. Spontaneous breathing trials ordered for today. Cytology still pending. 24: Afebrile. No bowel movement. Arousable on Ventolin falls commands. No drainage from chest tube. No more hemoptysis noted. Spontaneous breathing trials scheduled for today. 10/27: Afebrile. To balance overnight. Increasing hemoptysis noted from ET tube. Continue racemic epi 2 now. No plans for extubation until transfer. Waiting for "financials" prior to transfer to [facility] for evaluation by interventional pulmonology/CT surgery. 10/28: Remains sedated, orally intubated on mechanical ventilation. On neuromuscular blockade with Nimbex. Awaiting transfer to the [facility] in [place]. 10/29: Remains sedated, orally intubated on mechanical ventilation. On neuromuscular blockade with Nimbex. Awaiting transfer to [facility]. 10/30: Remains sedated, orally intubated on neuromuscular blockade. On mechanical ventilation. Awaiting transfer to [facility] 10/31: Remains sedated, orally intubated on neuromuscular blockade. On mechanical ventilation. Still awaiting transfer to [facility]. 11/01 No acute events overnight. Sedated with Fentanyl, Versed, Diprivan in addition to Nimbex. Tolerating tube feeds. Afebrile. Awaiting transfer 11/02 - [place] 6. ET tube currently above aisha. We will adjust prior to transfer. Tmax 99.2. Positive BM. Tolerating tube feeds. Pt Condition on Discharge: Stable Discharge Disposition: Disch to Another Hospital Discharge Instructions DIET: Follow Instructions for: Nothing By Mouth Activities you can perform: Continue Bedrest Gallito Rogers MD Nov 02, 2016 12:15
--- NOTE | 2016-11-02 12:54 | PD.PROCEDR ---
Procedure Note Procedure DATE: 10/23/2016 ICU bronchoscopy procedure note: Flexible fiberoptic bronchoscopy INDICATION: Adjustment of ET tube and right main bronchus CONSENT Informed consent for procedure was obtained from son. DESCRIPTION OF THE PROCEDURE Patient's ventilator was set with an FiO2 100%. Prior to procedure procedure, patient is sedated with propofol drip at 30 mcg/kg/m, Versed drip at 5 mg an hour, fentanyl drip at 2 g an hour and Nimbex drip at 4 mics grams per kilogram per minute. The flexible bronchoscope was inserted into the 8.0 ET tube. The right mainstem bronchus was directly visualized upon insertion. There is copious thick secretions in the right lower and middle lobes. These were lavaged with 60 cc of sterile saline. ET tube just 31 cm. Secured with Conner. Able to directly visualize right upper lobe/middle lobe and lower lobes through the end of the ET tube after secured with Conner.. Patient maintain saturations of 100% throughout the entire procedure. ESTIMATED BLOOD LOSS: Negligible COMPLICATIONS: No apparent complications. STAT chest x-ray showed ET tube in right mainstem Gallito Rogers MD Nov 02, 2016 12:54
--- NOTE | 2016-11-02 13:13 | RADRPT ---
EXAM DATE/TIME: 11/02/2016 12:41 [facility] COMPARISON: CHEST SINGLE AP, November 02, 2016, 3:10. INDICATIONS : Endotracheal tube placement confirmation. MEDICAL HISTORY : Cardiovascular disease. Hypertension SURGICAL HISTORY : None. ENCOUNTER: Subsequent ACUITY: 1 week PAIN SCORE: Non-responsive. LOCATION: Chest. FINDINGS: A single view of the chest demonstrates complete opacification left hemithorax and spine loss. Endotr acheal tube in right mainstem bronchus and should be retracted 3-4 cm. Nasogastric tube with tip in s tomach. The cardiomediastinal contours are unremarkable. Osseous structures are intact. CONCLUSION: Endotracheal tube with tip in right mainstem bronchus. Complete opacification left hemithorax. Chalo Hamlin MD on November 02, 2016 at 13:10 Board Certified Radiologist. This report was verified electronically.
[2017-03-11] MEDS ORDERED: COMMODE 3-IN-11 MIS (12:37)
[2017-03-11] MEDS ORDERED: WHEEMIS3 (12:37)
[2017-03-11] MEDS ORDERED: shower chair (12:37)
[2017-03-11] MEDS ORDERED: GETGO ROLLING W1 MI1 (12:37)
[2017-03-11] MEDS ORDERED: [UNRECOGNIZED DRUG - SUPPLY] (13:50)
[2017-03-11] MEDS ORDERED: FERR325T20 PO (13:55)
[2017-03-11] MEDS ORDERED: SYMB160A INH (13:55)
[2017-03-11] MEDS ORDERED: NIFE30TA8 PO (13:55)
[2017-03-11] MEDS ORDERED: DILA100C PO (13:55)
[2017-03-11] MEDS ORDERED: TAMS5CAP PO (13:55)
[2017-03-11] MEDS ORDERED: ATOR40TA16 PO (13:55)
[2017-03-11] MEDS ORDERED: CARD2TAB PO (13:55)
[2017-03-11] MEDS ORDERED: VENTAER INH (13:55)
[2017-03-11] MEDS ORDERED: PROT40TA PO (13:55)
[2017-03-11] MEDS ORDERED: CARV3.125 PO (13:55)
== END 2016-11-02 13:55 | disposition short-term general hospital (02) | DRG 207 ==
LOC: PHED 08:11 → PHEDA 10:20 → PHEDH 14:24 → HIMN 23:35
PROVIDERS: ADMIT Internal Medicine Critical Care Medicine; ATTEND Internal Medicine Critical Care Medicine
PROC: 0W9B30Z Drainage of Left Pleural Cavity with Drainage Device, Percutaneous Approach (ICD-10-PCS; principal; 2016-10-22)
PROC: 0W9B30Z Drainage of Left Pleural Cavity with Drainage Device, Percutaneous Approach (ICD-10-PCS; 2016-10-22)
PROC: 5A1955Z Respiratory Ventilation, Greater than 96 Consecutive Hours (ICD-10-PCS; 2016-10-23)
PROC: 0BH17EZ Insertion of Endotracheal Airway into Trachea, Via Natural or Artificial Opening (ICD-10-PCS; 2016-10-23)
PROC: 0BC18ZZ Extirpation of Matter from Trachea, Via Natural or Artificial Opening Endoscopic (ICD-10-PCS; 2016-10-23)
PROC: 0B978ZX Drainage of Left Main Bronchus, Via Natural or Artificial Opening Endoscopic, Diagnostic (ICD-10-PCS; 2016-10-23)
PROC: 0B938ZX Drainage of Right Main Bronchus, Via Natural or Artificial Opening Endoscopic, Diagnostic (ICD-10-PCS; 2016-10-23)
PROC: 0BC78ZZ Extirpation of Matter from Left Main Bronchus, Via Natural or Artificial Opening Endoscopic (ICD-10-PCS; 2016-10-27)
PROC: 0BC68ZZ Extirpation of Matter from Right Lower Lobe Bronchus, Via Natural or Artificial Opening Endoscopic (ICD-10-PCS; 2016-10-27)
PROC: 0BC48ZZ Extirpation of Matter from Right Upper Lobe Bronchus, Via Natural or Artificial Opening Endoscopic (ICD-10-PCS; 2016-10-27)
PROC: 0BC58ZZ Extirpation of Matter from Right Middle Lobe Bronchus, Via Natural or Artificial Opening Endoscopic (ICD-10-PCS; 2016-10-27)
PROC: 3E0F8GC Introduction of Other Therapeutic Substance into Respiratory Tract, Via Natural or Artificial Opening Endoscopic (ICD-10-PCS; 2016-10-27)
PROC: 0BJ08ZZ Inspection of Tracheobronchial Tree, Via Natural or Artificial Opening Endoscopic (ICD-10-PCS; 2016-11-02)
PROC: 3E1F88Z Irrigation of Respiratory Tract using Irrigating Substance, Via Natural or Artificial Opening Endoscopic (ICD-10-PCS; 2016-11-02)
DX: J90 Pleural effusion, not elsewhere classified (principal); J15.0 Pneumonia due to Klebsiella pneumoniae; E87.0 Hyperosmolality and hypernatremia; J96.01 Acute respiratory failure with hypoxia; R04.2 Hemoptysis; J98.11 Atelectasis; J44.0 Chronic obstructive pulmonary disease with (acute) lower respiratory infection; J93.9 Pneumothorax, unspecified; E88.09 Other disorders of plasma-protein metabolism, not elsewhere classified; I10 Essential (primary) hypertension; G40.909 Epilepsy, unspecified, not intractable, without status epilepticus; F17.290 Nicotine dependence, other tobacco product, uncomplicated; J98.09 Other diseases of bronchus, not elsewhere classified; N40.0 Benign prostatic hyperplasia without lower urinary tract symptoms; D64.9 Anemia, unspecified; E78.5 Hyperlipidemia, unspecified; R00.0 Tachycardia, unspecified; Z75.1 Person awaiting admission to adequate facility elsewhere
CPT/HCPCS: 31500; 31624; 32551; 36600; 71010; 71020; 71260; 71275; 76937; 80048; 80053; 80185; 82150; 82272; 82805; 82945; 82948; 83605; 83615; 83735; 83986; 84100; 84132; 84155; 84157; 84484; 85025; 85027; 85384; 85610; 85730; 86038; 86430; 86850; 86900; 86901; 87015; 87070; 87077; 87102; 87116; 87186; 87205; 87206; 87641; 88112; 88305; 89051; 93005; 94002; 94003; 94640; 94664; 96374; C9113; C9132; J0171; J0360; J0456; J2250; J2270; J2543; J2920; J2930; J3010; J7030; J7050; Q9967

== ENCOUNTER 2016-12-05 08:05 | Inpatient (IN) | payer MEDICAID, MEDICARE, OTHER ==
[~2016-12-05] VITALS: Ht 172.7 cm; Wt 62.4 kg
[~2016-12-05 08:05] MED LIST changes: -ATEN25TA PO; -SIMV40TA PO; +SOLU125I IV PUSH; -TERA1CAP3 PO; +TERA2CAP3 PO
[2016-12-05 16:28] VITALS: BP 184/81; PULSE 86; RESP 18; TEMP 95.3; O2SAT 91
[2016-12-05] MEDS ORDERED: NALOXONE HCL 0.4 MG/ML AMP IV PRN (17:00)
[2016-12-05] MEDS ORDERED: SODIUM CHLORIDE 0.9% FLUSH 5 ML FLUSH FLUSH PRN (17:00)
--- NOTE | 2016-12-05 17:24 | HHI.HP ---
HPI Service [facility] Hospitalists Primary Care Physician [facility] Admission Diagnosis Diagnoses: Chief Complaint: sob Travel History International Travel<30 Days: No Contact w/Intl Traveler <30 Da: No History of Present Illness 71-year-old male with PMH of HTN, recently diagnosed with large mass obstructing the main bronchus with pathology showing squamous cell ca. The patient came initially to [place] with c/o sob and hemoptysis. CTA revealed complete whiteout of the left lung, associated with possible underlying mass/nodularity of the left hilum. He required intubation with mechanical ventilation and continued to have significant hemoptysis. He was evaluated by CVT, who recommended transfer to [facility] in [place]. He was evaluated by Interventional pulmonology and underwent a bronchoscopy with debulking of a large mass involving the left mainstem bronchus. The left main bronchus was stented. Patient was intubated and difficult to wean off. Patient also had complicated hospitalization with PEA arrest 11/08/16 and ARF which required hemodialysis. Patient was intubated and difficult to wean off . He was also treated with abx levaquin finished course of abx. He also required a Dobbhoff tube for feeding purposes. He was stabilized and sent back to our facility for further continuation of care. The patient is currently severe deconditioned and bed bound. At this time, he has not been staged for his cancer. He is being followed by oncology but will need his acute issues addressed and need to be stronger prior to moving forward with management of his lung cancer. Patient is with respiratory failure requiring O2. He is telling me he feels better that yesterday. Says breathing is better. No chest pain, sob. he is on tube feedings. No n/v/d/c. Says he is not able to eat much by mouth. Review of Systems Except as stated in HPI: all other systems reviewed are Neg 12 system ROS reviewed and negative except as stated in HPI. Past Family Social History Past Medical History Recent diagnosis of squamous cell carcinoma of the long Acute renal failure requiring hemodialysis Severe deconditioning Dysphagia Hypertension BPH Seizures Past Surgical History Bronchoscopy with debulking and stenting of left mainstem bronchus mass Dialysis catheter placement Reported Medications Reported Meds & Active Scripts Active Solu-Medrol Inj (Methylprednisolone Sodium Succinate) 125 Mg Inj 60 Mg IV PUSH Q6H Reported Terazosin (Terazosin HCl) Unknown Strength Cap Unknown Dose PO HS Dilantin (Phenytoin Extended) 100 Mg Cap 300 Mg PO BID Allergies: Coded Allergies: No Known Allergies (Unverified , 10/21/16) Family History Both parents from lung cancer Social History He smokes daily up until his hospitalization in October 2016, smoking pipes since age of 16. No illicit drug use or EtOH use. Physical Exam Vital Signs Vital Signs Date Time Temp Pulse Resp B/P Pulse Ox O2 Delivery O2 Flow Rate FiO2 12/05/16 16:28 95.3 86 18 184/81 91 Physical Exam GENERAL: This is a pleasant 71 yo male, well-nourished, well-developed patient, appears chronically ill SKIN: No rashes, ecchymoses or lesions. Cool and dry. HEAD: Atraumatic. Normocephalic. No temporal or scalp tenderness. EYES: Pupils equal round and reactive. Extraocular motions intact. No scleral icterus. No injection or drainage. ENT: Nose without bleeding, purulent drainage or septal hematoma. Throat without erythema, tonsillar hypertrophy or exudate. Uvula midline. Airway patent. NECK: Trachea midline. No JVD or lymphadenopathy. Supple, nontender, no meningeal signs. CARDIOVASCULAR: Regular rate and rhythm without murmurs, gallops, or rubs. RESPIRATORY: Clear to auscultation. Decreased breath sounds bilaterally. No wheezes, rales, or rhonchi. GASTROINTESTINAL: Abdomen soft, non-tender, nondistended. No hepato-splenomegaly , or palpable masses. No guarding. MUSCULOSKELETAL: Extremities without clubbing, cyanosis, or edema. No joint tenderness, effusion, or edema noted. No calf tenderness. Negative Homans sign bilaterally. NEUROLOGICAL: Awake and alert. Cranial nerves II through XII intact. Motor and sensory grossly within normal limits. Five out of 5 muscle strength in all muscle groups. Normal speech. 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 Complicated stay with occluded stent in the left main bronchus, was intubated, extubated, curently satting well on 3L NC. Records reviewed. Respiratory failure requiring O2 supplement Duonebs as need. Patient was treated for PNA bronch sputum klebsiella + , ( treated at [facility] and finished course of abx per records). Blood cx were negative 11/07/16 ECHO 55-60% Consult hem/onc. CA not staged. Patient needs PET as OP before starting treatment. ESRD requiring HD. US kidney at [facility] rev findings consistent with chronic kidney disease. Consult nephrology. Tunnelled dialysis catheter was placed 12/04 ( right) at [facility]. 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 Consult Speech therapy and also director of safety. HTN- Continue atenolol 25 mg po bid BPH continue doxazosin 8 mg qhs Seizure- Continue Dilantin. Seizure precautions. Stable. DVT ppx with SCD/TEDs Will check labs CBC, BMP . CXR Consult case management for DC plan Consult PT/OT/ ST Discussed Condition With Patient ,nurse. Physician Certification 2 Midnight Certification Type: Admission for Inpatient Services Order for Inpatient Services The services are ordered in accordance with Medicare regulations or non- Medicare payer requirements, as applicable. In the case of services not specified as inpatient-only, they are appropriately provided as inpatient services in accordance with the 2-midnight benchmark. Estimated LOS (days): 4 days is the estimated time the patient will need to remain in the hospital, assuming treatment plan goals are met and no additional complications. Post-Hospital Plan: SNF Izzy Degroot MD Dec 05, 2016 17:24
[2016-12-05] MEDS ORDERED: BISACODYL 10 MG SUPP PR PRN ×2 (18:00→19:45)
[2016-12-05] MEDS: DOCUSATE SODIUM 100 MG CAP PO SCH (18:19)
[2016-12-05] MEDS: SODIUM CHLOR 0.9% 1000 ML INJ 1,000 ML IV SCH (18:20)
[2016-12-05] MEDS: ENALAPRILAT 2.5 MG/2 ML VIAL IV PUSH PRN (18:35)
--- NOTE | 2016-12-05 19:32 | RADRPT ---
EXAM DATE/TIME: 12/05/2016 18:52 [facility] COMPARISON: CHEST SINGLE AP, November 02, 2016, 12:41. INDICATIONS : Cough MEDICAL HISTORY : Cardiovascular disease. Hypertension SURGICAL HISTORY : None. ENCOUNTER: Subsequent ACUITY: 1 week PAIN SCORE: 2/10 LOCATION: chest FINDINGS: Left hemithorax is completely opacified. On the right, there is consolidation at the base and a massl norma area in the right mid to lower lung that measures around 5.7 cm. This may represent some loculate d pleural fluid. There is a feeding tube coursing into the stomach. Right IJ double-lumen catheter seen with distal ti p at the atrial caval junction. CONCLUSION: Left lung/hemithorax remain essentially completely opacified and with volume loss. Patchy consolidation on the right, mainly at the base. Masslike area right mid lung potentially some loculated pleural fluid. Paul Sinha MD on December 05, 2016 at 19:28 Board Certified Radiologist. This report was verified electronically.
[2016-12-05 20:00] VITALS: BP 184/82; PULSE 95; PULSE 96; RESP 18; TEMP 97.5; O2SAT 94
[2016-12-05] MEDS ORDERED: TERAZOSIN HCL 1 MG CAP PO SCH (21:00)
[2016-12-05] MEDS: DOXAZOSIN MESYLATE 4 MG TAB PO SCH (21:26)
[2016-12-05] MEDS: PHENYTOIN SODIUM 100 MG CAP PO SCH (21:27)
[2016-12-05] MEDS: SODIUM CHLORIDE 0.9% FLUSH 5 ML FLUSH FLUSH SCH (21:28)
[2016-12-05] MEDS: ATORVASTATIN 40 MG TAB PO SCH (21:30)
[2016-12-06] VITALS (8 sets, daily range): BP systolic 134–195; BP diastolic 63–88; PULSE 81–108; RESP 18–20; TEMP 96.5–100.8; O2SAT 88–97
[2016-12-06 04:20] LABS: AUTOMATED NEUTROPHIL # 8.3 TH/MM3 (1.8-7.7); BASOPHIL # 0.1 TH/MM3 (0-0.2); BASOPHIL % 0.7 % (0.0-2.0); EOSINOPHIL # 0.9 TH/MM3 (0-0.4); EOSINOPHIL % 8.4 % (0.0-4.0); LYMPH % 5.2 % (9.0-44.0); LYMPHOCYTE # 0.6 TH/MM3 (1.0-4.8); MEAN CELL VOLUME 92.7 FL (80.0-100.0); MEAN CORPUSCULAR HEMOGLOBIN 30.8 PG (27.0-34.0); MEAN CORPUSCULAR HGB CONC 33.2 % (32.0-36.0); MONO % 9.6 % (0.0-8.0); NEUT % 76.1 % (16.0-70.0); PLATELET COUNT 290 TH/MM3 (150-450); RED BLOOD COUNT 2.16 MIL/MM3 (4.50-5.90); RED CELL DISTRIBUTION WIDTH 15.8 % (11.6-17.2); WHITE BLOOD COUNT 10.9 TH/MM3 (4.0-11.0)
[2016-12-06 04:22] LABS: HEMO FLAGS DIFF FINAL
[2016-12-06 04:36] LABS: INTERNATIONAL NORMALIZED RATIO 1.1 RATIO; PROTHROMBIN TIME - PATIENT 12.5 SEC (9.8-11.6)
[2016-12-06 04:44] LABS: BICARBONATE 26.2 MEQ/L (21.0-32.0); POTASSIUM 4.3 MEQ/L (3.5-5.1)
[2016-12-06 04:47] LABS: INDIRECT BILIRUBIN 0.2 MG/DL (0.0-0.8); TOTAL BILIRUBIN ADULT 0.3 MG/DL (0.2-1.0)
[2016-12-06] MEDS: DOCUSATE SODIUM 100 MG CAP PO SCH ×2 (05:59→18:00)
[2016-12-06] MEDS: SODIUM CHLOR 0.9% 1000 ML INJ 1,000 ML IV SCH (05:59)
[2016-12-06] MEDS ORDERED: FUROSEMIDE 20 MG/2 ML VIAL IV PUSH ONE (07:00)
[2016-12-06] MEDS ORDERED: SODIUM CHLOR 0.9% 250 ML INJ 250 ML IV ONE (08:45)
[2016-12-06] MEDS ORDERED: diphenhydrAMINE HCL 25 MG CAP PO PRN ×2 (08:45→12:15)
[2016-12-06] MEDS ORDERED: ACETAMINOPHEN 325 MG TAB PO PRN (08:45)
[2016-12-06] MEDS ORDERED: FUROSEMIDE 20 MG/2 ML VIAL IV ONE (08:45)
--- NOTE | 2016-12-06 10:07 | MB ---
cc: JESSICA PASCAL MD DATE OF CONSULTATION: 12/06/2016 DATE OF : 1945 REQUESTING PHYSICIAN: Consult requested by the hepatis hospitalist service. 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 CHIEF COMPLAINT Mr. Jaime reports feeling generally weak, fatigued and short of breath. HISTORY OF PRESENT ILLNESS Mr. 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 He also has been a smoker, smoking most of his adult life to about a pack a day. He smoked both cigarettes and pipes. He had been smoking up until his hospitalization in October 2016. Mr. Lewis history dates back to early October when he began to develop increasing difficulty breathing as well as cough producing blood. He presented to [facility] on 10/22/2016 with acute onset difficulty breathing. He underwent imaging studies including a CT angiogram which revealed complete whiteout of the left lung, associated possible underlying mass / nodularity of the left hilium. He was shortly thereafter intubated. He had high volume hemoptysis. The patient was evaluated CT surgery here and after spending some time on a ventilator. He was transferred to the [facility] in [place] where he was evaluated by interventional pulmonology. He underwent bronchoscopy with debulking of a large mass involving the left mainstem bronchus. The left main bronchus was stented. The hemoptysis was controlled and he was eventually extubated. He did have a very complicated hospital stay though and while in the hospital he had a PEA arrest on 11/08/2016. He was resuscitated. He also developed acute renal failure and required hemodialysis. He has required a feeding. A Dobbhoff tube for feeding purposes. He presently has acute illness related myopathy. And is essentially bed-bound. After his condition was stabilized he was transferred back to [facility] for continuation of care. PAST MEDICAL HISTORY Tobaccoism. Reported history of seizure disorder. He denies history of coronary artery disease or strokes. MEDICAL DIAGNOSIS: 1. More recent medical diagnoses: Squamous cell carcinoma of the lung. 1. Renal failure requiring hemodialysis. 2. Acute illness related debility. PAST SURGICAL HISTORY 1. Bronchoscopy with debulking and stenting of right. Left mainstem bronchus mass. 2. Low right-sided dialysis catheter placement in the IJ. FAMILY HISTORY Parents both of lung cancer which is metastatic they were both smokers. SOCIAL HISTORY The patient is , he is a of the [employer] . He lives at home alone. He has four sons. 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 Smoking history as outlined above a pack a day of cigarettes plus pipe smoking for most of his adult life. ALLERGIES NO KNOWN DRUG ALLERGIES. CURRENT INPATIENT MEDICATIONS: MEDICATIONS 1. Sodium chloride 75 cc/hour. 2. Atorvastatin 40 mg p.o. q.h.s. 3. Dulcolax 10 mg per rectum. 4. Colace 100 mg p.o. q. 12 hours. 5. Cardura 8 mg p.o. q.h.s. 6. Ferrous sulfate 300 mg p.o. daily. 7. Furosemide 40 mg p.o. daily via OG NG tube. 8. Lactulose 30 ml p.o. t.i.d. 9. Naloxone 10. Ondansetron 4 mg IV q.6 h as needed for nausea and vomiting. 11. Dilantin 300 mg p.o. b.i.d. REVIEW OF SYSTEMS 13-point review of systems were obtained the following are the pertinent positives: CONSTITUTIONAL: The patient reports generalized fatigue, weakness. Inability Khoi that get up to feed himself. He reports weight loss, muscle mass loss. HEAD, EYES, EARS, NOSE, AND THROAT: Denies headaches, blurry vision, difficulties reports difficulty swallowing report soreness in the throat. RESPIRATORY: Denies reports difficulty breathing reports chronic cough, reports his asthma, this is has resolved. CARDIOVASCULAR SYSTEM: Denies angina-like chest pain, PND, orthopnea reports palpitations. GASTROINTESTINAL: Denies nausea, vomiting, diarrhea hematochezia, melena. GENITOURINARY: Denies dysuria, hematuria, urinary incontinence. CENTRAL NERVOUS SYSTEM: Reports generalized weakness and fatigue. Reports history of seizure disorder. MUSCULOSKELETAL: Reports generalized muscle mass loss and debility. PHYSICAL EXAMINATION VITAL SIGNS: Weight 90 8.8 degrees Fahrenheit, heart rate 94 beats minute, respiratory rate 19, blood pressure 141/63, O2 sats ranging between 95 and 88% on 3 liters nasal cannula. 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 He is laying in bed. He has a Dobbhoff tube inside one of his nostrils. There is a dialysis catheter on the right side. HEAD, EYES, EARS, NOSE, AND THROAT: Head atraumatic, normocephalic, conjunctive a are pale sclerae are anicteric, Extraocular muscles intact, Pupils equal, round, reactive to light and accommodation, oral exam dry mucous membranes. No pharyngeal erythema. NECK: Neck exam no palpable cervical or supraclavicular adenopathy. RESPIRATORY EXAMINATION: Distant sounding breath sounds. Prolonged expiratory phase, decreased bibasilar breath sounds. Right sided air movement is somewhat better than the left side. CARDIOVASCULAR SYSTEM: Regular rate and rhythm, S1-S2. No obvious murmurs, gallops. ABDOMINAL EXAMINATION: Obese, soft and nontender, nondistended palpable organ enlargement. LOWER EXTREMITIES: Bilateral. No pretibial edema or calf tenderness. CENTRAL NERVOUS SYSTEM: No focal sensory or motor deficits however, he is generally weak. MUSCULOSKELETAL: Generally atrophic muscles. His right upper extremity seems to be at a mass. LABORATORY FINDINGS Blood work dated 12/06/2016: WBC count 10.9, hemoglobin 6.6 gm/dl, hematocrit 20%, platelet count 290. Absolute neutrophil count 8.3. Chemistries: Sodium 139, potassium 4.3, chloride 104, bicarb 26.2, BUN 42, creatinine 3.4. Glucose 90. Calcium 7.5, total bilirubin 0.3, AST 12, ALT 20, alkaline phosphatase 107, albumin 1.7. IMAGING STUDIES Chest x-ray Dated 12/05/2016: Left lung / hemithorax remained essentially completely opacified with volume loss. Patchy consolidation on the right side, mainly at the base. Mass-like area in the right lung potentially is some loculated pleural effusion is noted as well. ASSESSMENT Mr. Jaime is a 71-year-old male with a very complicated recent past medical history. Let me attempt to summarize the events of the past five weeks below: Mr. Camp has a personal history of tobaccoism which dates back to when he was about 22 years old, he smoked for close to 50 years. He developed increasing difficulty breathing and hemoptysis starting in September 2016. He came into [facility] late September with acute onset difficulty breathing and hemoptysis. Upon presentation to our hospital. He underwent imaging studies which revealed complete opacification of the left hemithorax associated with mass-like density in the left hilum. Due to large volume hemoptysis in respiratory distress. He was intubated. He remain on life support until he was transferred to the [facility] in [place]. [place]. He was evaluated by interventional pulmonology where he underwent bronchoscopy with debulking of a large obstructing mass in the left mainstem bronchus, this was stented with an endobronchial stent. Hemoptysis was controlled. He came off the ventilator but not before he had a PEA arrest. He developed acute renal failure and required hemodialysis. All-in-all he remained ventilator dependent for close to a month. He remains acutely ill. He has acute illness related muscle wasting and debility. Active issues at this time include his new diagnosis of squamous cell carcinoma of the lung which was biopsy proven on the bronchoscopy, based on the tissue obtained from bronchoscopy. He has acute anemia. I would hemoglobin 6.6 gm/dl as of today. He has acute on chronic renal failure. He has been near completely depleted from his acute illness and requires significant rehab including physical therapy, evaluation by dietary nutrition as well. RECOMMENDATIONS 1. New diagnosis of squamous cell carcinoma of the lung; This man needs to be staged. However, his acute illnesses in acute issues due to be addressed before we can really move forward with management of his lung carcinoma. In order of priority I would suggest he have his renal function stabilized and that he get established with a mri supervisor. He needs to have his nutritional status addressed. This will involve evaluation by a speech therapist and a optoelectronic technician. He presently has a Dobbhoff tube in, I do know how long this needs to stay and/or his disease to stand. I am hoping dietary and speech therapy to help us with this. 2. He needs to be seen by physical therapy and occupational therapy so his functional status can be optimized. 3. Once he is capable of being functional he ought to be evaluated for staging and then possible treatment interventions. At this point he is too weak to undergo any disease directed therapy (with reference to his lung carcinoma). 4. With regards his anemia: I will check stool for occult, check serum iron studies and that transfuse 2 units pack red blood cells. 5. The oncology service will follow with you. On top of all this I do need his pathology report from the [facility] in [place]. MD Eileen Wolf /8:36 AM /9:37 AM
[2016-12-06] MEDS: FERROUS SULFATE 300 MG /5ML UDC PO SCH (10:15)
[2016-12-06] MEDS: FUROSEMIDE 40 MG/5 ML UNIT DOSE CUP TUBE SCH (10:15)
[2016-12-06] MEDS: PHENYTOIN SODIUM 100 MG CAP PO SCH ×2 (10:15→20:37)
[2016-12-06] MEDS: SODIUM CHLORIDE 0.9% FLUSH 5 ML FLUSH FLUSH SCH ×2 (10:16→20:57)
[2016-12-06 10:43] LABS: TRANSFERRIN IRON PROFILE 141 MG/DL (200-360)
[2016-12-06] MEDS ORDERED: SODIUM CHLOR 0.9% 1000 ML INJ 1,000 ML IV PRN ×3 (12:11)
--- NOTE | 2016-12-06 12:11 | PD.CONS ---
[facility] Service Nephrology Consult Requested By Reason for Consult ARF on dialysis Primary Care Physician [facility] History of Present Illness This is a 71 y/o male pt. He was admitted to [facility] in October. At that time his renal function was normal. He was transferred to [facility] for mainstem bronch stent placement. He was admitted to that facility on 11/02/16. On 11/08 he suffered PEA arrest, was intubated. He did have ROSC, became bradycardic, hypotensive and placed on pressors. I had a chance to review the records from the sending facility. His creatinine went as high as 6, he was started on dialysis shortly after his arrest. He had a permcath placed prior to transfer back to this facility. I was unable to determine his HD days or last treatment from records, but the nurse states in report she was told he is TTS had HD yesterday. His renal US showed a bladder mass that as I understand has not been evaluated by urology as of yet. He was placed on 5 days of steroids to treat empirically for AIN. We were consulted for renal management. PMH of BPH, seizures, and HTN. He is awake but groggy. He has miranda in place and it is draining. He has a dobhoff tube in place as well but unsure why. His creatinine was 3.45 on 12/02, 2.58 on , and 2.46 yesterday. It measured 3.39 on admission to our facility, with GFR of 18. Echo shows EF 55-60%. He has edema to right arm, chart reflects diagnosis of right cephalic DVT. He wa treated for Klebsiella PNA, on Levaquin but finished treatment. He is also anemic at 6.6 at our facility. He has been evaluated by hematology/oncology. He is a full code. (Marina Mcgovern) Review of Systems Constitutional: COMPLAINS OF: Fatigue Cardiovascular: COMPLAINS OF: Lower Extremity Edema (Marina Mcgovern) Past Family Social History Allergies: Coded Allergies: No Known Allergies (Unverified , 10/21/16) Past Medical History HTN BPH seizures left mainstem obstruction, dx of squamous cell carcinoma PEA arrest on 11/08 TODD requiring HD right cephalic DVT new bladder mass Past Surgical History tonsils bronch stent vascath, permcath placement Reported Medications reviewed in chart sent from facility Active Ordered Medications Current Medications Medications (Trade) Dose Ordered Sig/Luis Carlos Route Start Time Stop Time Status Last Admin (NS 1000 ml Inj) 1,000 ml @ 75 mls/hr [id number] IV 12/05/16 18:00 12/06/16 05:59 (NS Flush) 2 ml UNSCH PRN FLUSH 12/05/16 17:00 (NS Flush) 2 ml BID FLUSH 12/05/16 21:00 12/06/16 10:16 (Zofran Inj) 4 mg Q6H PRN IVP 12/05/16 18:00 (Dulcolax Supp) 10 mg DAILY PRN MT 12/05/16 18:00 (Colace) 100 mg Q12H PO 12/05/16 18:00 12/06/16 05:59 (Narcan Inj) 0.4 mg UNSCH PRN IV 12/05/16 17:00 (Dilantin) 300 mg BID PO 12/05/16 21:00 12/06/16 10:15 (Vasotec Inj) 2.5 mg Q6H PRN IV PUSH 12/05/16 18:00 12/05/16 18:35 (Ferrous Sulfate Liq) 300 mg DAILY PO 12/06/16 09:00 12/06/16 10:15 (Cardura) 8 mg HS PO 12/05/16 21:00 12/05/16 21:26 (Lipitor) 40 mg HS PO 12/05/16 21:00 12/05/16 21:30 (Lasix Liq) 40 mg DAILY TUBE 12/06/16 09:00 12/06/16 10:15 (Jacinda-Colace) 2 tab BID PRN PO 12/05/16 19:45 (Lactulose Liq) 30 ml TID PRN PO 12/05/16 19:45 (Dulcolax Supp) 10 mg DAILY PRN MT 12/05/16 19:45 Magnesium Hydroxide 30 ml 30 ml Q6H PRN PO 12/05/16 19:45 (NS 250 ml Inj) 250 ml @ 15 mls/hr ONCE ONCE IV 12/06/16 08:45 12/07/16 01:24 12/06/16 11:00 (Tylenol) 650 mg Q4H PRN PO 12/06/16 08:45 12/06/16 12:46 (Benadryl) 25 mg Q4H PRN PO 12/06/16 08:45 12/06/16 12:46 Family History no hx of renal disorders Social History single, lives alone 4 sons that are out of state long smoking hx no ETOH or drug use full code (Marina Mcgovern) Physical Exam Vital Signs Vital Signs Date Time Temp Pulse Resp B/P Pulse Ox O2 Delivery O2 Flow Rate FiO2 12/06/16 08:04 88 Nasal Cannula 3.00 12/06/16 08:00 97.2 93 20 195/88 92 12/06/16 04:00 98.8 94 19 141/63 95 12/06/16 00:00 100.8 108 19 149/66 91 12/05/16 20:00 96 12/05/16 20:00 97.5 95 18 184/82 94 12/05/16 16:28 95.3 86 18 184/81 91 Physical Exam Disheveled causasian male pt, awake but confused lungs: minimal sounds on right, left clear in upper [place] CV: S1/S2, regular without murmurs Abd: soft ext 2+ edema skin: intact left permcath, miranda, and left dobhoff tube Laboratory Laboratory Tests Test 12/05/16 12/06/16 12/06/16 12/06/16 18:36 00:16 03:55 05:06 Total Creatine Kinase 32 23 Troponin I 0.02 0.06 White Blood Count 10.9 Red Blood Count 2.16 Hemoglobin 6.6 Hematocrit 20.0 Mean Corpuscular Volume 92.7 Mean Corpuscular Hemoglobin 30.8 Mean Corpuscular Hemoglobin 33.2 Concent Red Cell Distribution Width 15.8 Platelet Count 290 Mean Platelet Volume 6.9 Neutrophils (%) (Auto) 76.1 Lymphocytes (%) (Auto) 5.2 Monocytes (%) (Auto) 9.6 Eosinophils (%) (Auto) 8.4 Basophils (%) (Auto) 0.7 Neutrophils # (Auto) 8.3 Lymphocytes # (Auto) 0.6 Monocytes # (Auto) 1.1 Eosinophils # (Auto) 0.9 Basophils # (Auto) 0.1 CBC Comment DIFF FINAL Differential Comment Prothrombin Time 12.5 Prothromb Time International 1.1 Ratio Sodium Level 139 Potassium Level 4.3 Chloride Level 104 Carbon Dioxide Level 26.2 Anion Gap 9 Blood Urea Nitrogen 42 Creatinine 3.39 Estimat Glomerular Filtration 18 Rate Random Glucose 90 Calcium Level 7.5 Iron Level 25 Total Iron Binding Capacity 197 Percent Iron Saturation 12.7 Total Bilirubin 0.3 Direct Bilirubin 0.1 Indirect Bilirubin 0.2 Aspartate Amino Transf 12 (AST/SGOT) Alanine Aminotransferase 20 (ALT/SGPT) Alkaline Phosphatase 107 Total Protein 5.7 Albumin 1.7 Lipase 189 Blood Type B POSITIVE Antibody Screen POSITIVE Prewarmed Antibody Screen NEGATIVE Antibody Identification Non-Specific Cold Agglutinin Blood Bank Comment Date/Time Procedure Status Source Growth 12/05/16 18:36 Aerobic Blood Culture - Preliminary Resulted Blood Peripheral NO GROWTH IN 1 DAY 12/05/16 18:36 Anaerobic Blood Culture - Final Resulted Blood Peripheral QNS - SEE AEROBE REPORT (Marina Mcgovern) Result Diagram: 12/06/16 0355 12/06/16 0355 Imaging Last Impressions Chest X-Ray 12/05/16 1700 Signed Impressions: Service Date/Time: , December 05, 2016 18:52 - CONCLUSION: Left lung/hemithorax remain essentially completely opacified and with volume loss. Patchy consolidation on the right, mainly at the base. Masslike area right mid lung potentially some loculated pleural fluid. Paul Sinha MD (Marina Mcgovern) Assessment and Plan Problem List: (1) Acute renal failure Plan: He had creatinine 0.77 in October Renal failure presumably from ATN due to PEA arrest i was unable to determine his HD days from the records, the nurse states he is TTS, she states he had treatment prior to transfer yesterday his creatinine is higher than past three days he is making a good amount of urine, continue lasix at this time his electrolytes are unremarkable reevaluate him tomorrow and likely continue HD await renal recovery avoid nephrotoxins stop prednisone as he received 5 days per sending facility (2) Bronchiolar obstruction Plan: s/p stent placement, dx of squamous cell carcinoma med oncology following (3) Acute respiratory failure Plan: extubated, respiratoty status is better he has dobhoff, needs nutrition or speech eval to determine if it is necessary (4) Mass of left lung Plan: oncology has evaluated, appreciate their recommendations of note he has a bladder mass that has not been evaluated as of yet as he was unstable at other facility (5) Anemia Plan: Dr. jose mitchell following anemia work up ordered he was ordered PRBC for transfusion epogen with HD (Marina Mcgovern) Assessment and Plan patient was seen and examined. Past history was extensively reviewed. TODD following cardiac arrest at [facility]. Has bronchogenic carcinoma, underwent biopsy and left main stent placement. TODD likely due to ATN, although AIN also was considered at [facility] and he was placed on steroid. He appears to be non oliguric, monitor for renal recovery. He has PermCath for dialysis. (Willian Borjas MD) Marina Mcgovern Dec 06, 2016 12:11 Willian Borjas MD Dec 06, 2016 17:44
[2016-12-06] MEDS ORDERED: NITROGLYCERIN 0.4 MG SL 25 TABS/BTL SL PRN (12:15)
[2016-12-06] MEDS ORDERED: GELATIN 12 MM/7 MM FOAM TOP PRN (12:15)
[2016-12-06] MEDS ORDERED: MANNITOL 12.5 GM/50 ML VIAL IV PRN (12:15)
[2016-12-06] MEDS ORDERED: ONDANSETRON HCL 4 MG/2 ML VIAL IV PRN (12:15)
[2016-12-06] MEDS ORDERED: HEPARIN SODIUM - IV 10,000 UNITS/10 ML VIAL IVF PRN (12:15)
[2016-12-06] MEDS ORDERED: SODIUM CHLORIDE 0.9% FLUSH 5 ML FLUSH IVF PRN (12:15)
[2016-12-06] MEDS ORDERED: ALBUMIN HUMAN 25% 25 GM/100 ML BAGP IV PRN (12:15)
--- NOTE | 2016-12-06 12:58 | HHI.PR ---
Subjective Remarks Patient appears in nad. Says he feels the same like yesterday. He is on NC satting well. No chest pain. SOB at baseline. Denies having any cough. No fever or chills. Normal appetite. Objective Vitals Vital Signs Date Time Temp Pulse Resp B/P Pulse Ox O2 Delivery O2 Flow Rate FiO2 12/06/16 08:04 88 Nasal Cannula 3.00 12/06/16 08:00 97.2 93 20 195/88 92 12/06/16 04:00 98.8 94 19 141/63 95 12/06/16 00:00 100.8 108 19 149/66 91 12/05/16 20:00 96 12/05/16 20:00 97.5 95 18 184/82 94 12/05/16 16:28 95.3 86 18 184/81 91 I/O 12/05/16 12/05/16 12/05/16 12/06/16 12/06/16 12/06/16 07:00 15:00 23:00 07:00 15:00 23:00 Intake Total 240 ml 815 ml Output Total 200 ml 350 ml Balance 40 ml 465 ml Intake Oral 240 ml 240 ml IV Total 0 ml 575 ml Output Urine Total 200 ml 350 ml Result Diagram: 12/06/16 0355 12/06/16 0355 Imaging Last Impressions Chest X-Ray 12/05/16 1700 Signed Impressions: Service Date/Time: November 18:52 - CONCLUSION: Left lung/hemithorax remain essentially completely opacified and with volume loss. Patchy consolidation on the right, mainly at the base. Masslike area right mid lung potentially some loculated pleural fluid. Paul Sinha MD Objective Remarks GENERAL: This is a well-nourished, well-developed patient, in no apparent distress. SKIN: No rashes, ecchymoses or lesions. Cool and dry. HEAD: Atraumatic. Normocephalic. No temporal or scalp tenderness. EYES: Pupils equal round and reactive. Extraocular motions intact. No scleral icterus. No injection or drainage. ENT: Nose without bleeding, purulent drainage or septal hematoma. Throat without erythema, tonsillar hypertrophy or exudate. Uvula midline. Airway patent. NECK: Trachea midline. No JVD or lymphadenopathy. Supple, nontender, no meningeal signs. CARDIOVASCULAR: Regular rate and rhythm without murmurs, gallops, or rubs. RESPIRATORY: Clear to auscultation. Breath sounds equal bilaterally. No wheezes , rales, or rhonchi. GASTROINTESTINAL: Abdomen soft, non-tender, nondistended. No hepato-splenomegaly , or palpable masses. No guarding. MUSCULOSKELETAL: Extremities without clubbing, cyanosis, or edema. No joint tenderness, effusion, or edema noted. No calf tenderness. Negative Homans sign bilaterally. NEUROLOGICAL: Awake and alert. Cranial nerves II through XII intact. Motor and sensory grossly within normal limits. Five out of 5 muscle strength in all muscle groups. Normal speech. A/P Assessment and Plan 71 yo male with Left mainstem bronchus squamous cell carcinoma with out mets s/o stent placement in the left main bronchus at [facility]. Complicated stay with occluded stent in the left main bronchus, was intubated, extubated, currently satting well on 3L NC. Records reviewed ( in the pts chart). Respiratory failure requiring O2 supplement Duonebs as need. Patient was treated for PNA bronch sputum klebsiella + , ( treated at [facility] and finished course of abx per records). Blood cx were negative 11/07/16 ECHO 55-60% Consult hem/onc. Patient needs PET as OP before starting treatment. Patient with anemia HGB 6.6 on 12/06/16. Plan to type and screen and transfuse 2U pRBC.Monitor H/H and transfuse as need. Check iron panel. FOBT. If FOBT positive will consult GI ESRD requiring HD. US kidney at [facility] rev findings consistent with chronic kidney disease. Consult nephrology. Tunnelled dialysis catheter was placed 12/04 ( right) at [facility]. 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 Consult Speech therapy and also reservoir engineering advisor. HTN- Continue atenolol 25 mg po bid BPH continue doxazosin 8 mg qhs Seizure- Continue Dilantin. Seizure precautions. Stable. DVT ppx with SCD/TEDs Consult case management for DC plan Consult PT/OT/ ST Discussed Condition With Patient, nurse. Izzy Degroot MD Dec 06, 2016 12:58
[2016-12-06] MEDS ORDERED: predniSONE 5 MG/5 ML CUP PO ONE (13:00)
[2016-12-06] MEDS: ACETAMINOPHEN 325 MG TAB PO PRN (20:15)
[2016-12-06] MEDS: ATORVASTATIN 40 MG TAB PO SCH (20:37)
[2016-12-06] MEDS: DOXAZOSIN MESYLATE 4 MG TAB PO SCH (20:37)
[2016-12-07] VITALS (7 sets, daily range): BP systolic 127–154; BP diastolic 59–74; PULSE 81–99; RESP 18–20; TEMP 97.2–99.6; O2SAT 92–96
[2016-12-07] MEDS ORDERED: FUROSEMIDE 20 MG/2 ML VIAL IV ONE (00:30)
[2016-12-07] MEDS: DOCUSATE SODIUM 100 MG CAP PO SCH ×2 (05:58→18:00)
--- NOTE | 2016-12-07 09:31 | PD.CONS ---
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 Last month, he developed shortness of breath with associated hemoptysis and was hospitalized at this facility, where CTA revealed complete whiteout of the left lung, associated with possible underlying mass/nodularity of the left hilum. He required intubation with mechanical ventilation and continued to have significant hemoptysis. He was evaluated by CVT, who recommended transfer to [facility] in [place]. He was evaluated by Interventional pulmonology and underwent a bronchoscopy with debulking of a large mass involving the left mainstem bronchus. The left main bronchus was stented. His hospitalization was complicated by PEA arrest on 11/08/16 and the development of ARF which required hemodialysis. He also required a Dobbhoff tube for feeding purposes. He was stabilized and sent back to our facility for further continuation of care. The patient is currently severe deconditioned and bed bound. At this time, he has not been staged for his cancer. He is being followed by oncology but will need his acute issues addressed and need to be stronger prior to moving forward with management of his lung cancer. He arrived back to this facility yesterday from the [facility]. He was noted to have an Hgb of 6.6/20.0. He was given 2 units of PRBC. Rpt CBC is pending today. Stool was hemoccult positive. Gi was consulted for further evaluation and treatment. Of note the dietitian as following and has recommended nocturnal feedings with Nepro at 65 cc an hour 10 hours from 8 PM to 6 AM, renal diet, Nepro 3 times a day to trace, calorie count through the weekend with nutritional recommendations to follow on 12/09. The patient reports that he is feeling better, but extremely weak. He reports that he is taking by mouth, but he cannot tell me how much of his meals he's been eating. He states that normally he would only eat breakfast and dinner. He denies any difficulty with food getting caught in his esophagus or odynophagia. He denies any heartburn, reflux, nausea, vomiting, abdominal pain. He denies any constipation or diarrhea. He reports that he has not seen his stool so he does not know if he has had any blood mixed within his stool. He reports that he last had a colonoscopy through the [facility] about 4-5 years ago and that he had a few colon polyps removed at that time and that they were benign. He believes that he had an EGD at that time as well although he is not sure of the findings.. (Audrey Vanegas) PFSH Past Medical History Recent diagnosis of squamous cell carcinoma of the long Acute renal failure requiring hemodialysis Severe deconditioning Dysphagia Hypertension BPH Seizures Past Surgical History Bronchoscopy with debulking and stenting of left mainstem bronchus mass Dialysis catheter placement (Audrey Vanegas) Coded Allergies: No Known Allergies (Unverified , 10/21/16) Medications Allergies Coded Allergies Type Severity Reaction Last Updated Verified No Known Allergies 10/21/16 No Active Scripts Medications Dose Route/Sig Days Date Category Solu-Medrol Inj (Methylprednisolone Sodium Succinate) 125 Mg Inj 60 Mg IV PUSH Q6H 10/25/16 Rx Terazosin (Terazosin HCl) Unknown Strength Cap Unknown Dose PO HS 10/21/16 Reported Dilantin (Phenytoin Extended) 100 Mg Cap 300 Mg PO BID 10/21/16 Reported Family History Both parents from lung cancer Social History He smokes daily up until his hospitalization in October 2016 (Audrey Vanegas) Review of Systems Constitutional: COMPLAINS OF: Fatigue, Change in appetite Respiratory: COMPLAINS OF: Cough, Shortness of breath Cardiovascular: COMPLAINS OF: Lower Extremity Edema Gastrointestinal: COMPLAINS OF: Abdominal pain, Anorexia, DENIES: Constipation , Diarrhea, Nausea, Vomiting, Swelling of Abdomen, Heartburn, Hematemesis Musculoskeletal: COMPLAINS OF: Muscle aches, Back pain Psychiatric: DENIES: Confusion (Audrey Vanegas) GI Exam Vitals I&O Vital Signs Date Time Temp Pulse Resp B/P Pulse Ox O2 Delivery O2 Flow Rate FiO2 12/07/16 08:00 97.2 94 20 132/63 96 12/07/16 06:40 97.6 88 18 130/61 96 12/07/16 03:07 97.7 81 18 136/63 95 12/07/16 00:00 98.0 81 19 131/68 95 12/07/16 00:00 98.0 81 19 131/68 95 12/06/16 20:25 98.5 87 18 157/72 97 12/06/16 20:00 81 12/06/16 20:00 98.5 87 19 157/72 97 12/06/16 16:00 97.4 84 18 134/66 95 12/06/16 12:00 96.5 92 20 140/65 93 I/O 12/06/16 12/06/16 12/06/16 12/07/16 12/07/16 12/07/16 07:00 15:00 23:00 07:00 15:00 23:00 Intake Total 1055 ml 120 ml 0 ml 1381 ml Output Total 750 ml 500 ml 300 ml Balance 305 ml -380 ml 0 ml 1081 ml Intake Oral 480 ml 120 ml 240 ml IV Total 575 ml 0 ml 561 ml Tube Feeding 580 ml Output Urine Total 750 ml 500 ml 300 ml # Bowel Movements 1 1 Imaging Last Impressions Chest X-Ray 12/05/16 1700 Signed Impressions: Service Date/Time: November 18:52 - CONCLUSION: Left lung/hemithorax remain essentially completely opacified and with volume loss. Patchy consolidation on the right, mainly at the base. Masslike area right mid lung potentially some loculated pleural fluid. Paul Sinha MD Laboratory Date/Time Procedure Status Source Growth 12/06/16 13:00 Stool Occult Blood ([facility]) - Final Complete Stool Stool HEMOCCULT POSITIVE 12/05/16 18:36 Aerobic Blood Culture - Preliminary Resulted Blood Peripheral NO GROWTH IN 1 DAY 12/05/16 18:36 Anaerobic Blood Culture - Final Resulted Blood Peripheral QNS - SEE AEROBE REPORT Physical Examination HEENT: Normocephalic; atraumatic; no jaundice. CHEST: Resp. even/unlabored, mild tachypnea, diminished bases. CARDIAC: RRR. ABDOMEN: Soft, nondistended, nontender; no hepatosplenomegaly; bowel sounds are present in all four quadrants. 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 HH on arrival yesterday was 6.6/20.0. He was given 2 units of PRBC. Rpt CBC is pending today. He is not having any obvious GI bleeding at this time. Other than decreased appetite, he denies any GI symptoms. He last had an EGD and colonoscopy About 4-5 years ago at the [place] and reports that he had a colon polyp removed at that time. Iron 25, TIBC 197, TIBC 197, Iron saturation 12.7. - Protein calorie malnutrition. Patient currently has Dobbhoff in place. He denies any actual dysphagia or odynophagia. He cannot tell me what percentage of his meals that he is taking in. Speech therapy is following and has recommended a mechanical soft diet with nectar thickened liquids. The dietitian Is also following recommended nocturnal feedings with Nepro at 65 cc an hour 10 hours from 8 PM to 6 AM, renal diet, Nepro 3 times a day to trace, calorie count through the weekend with nutritional recommendations to follow on 12/09. 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 Patient was hospitalized at this facility last month after developing shortness of breath and significant hemoptysis. He required mechanical ventilation. He was evaluated by CVT and then transferred to the [facility] in [place]. He was evaluated by Interventional pulmonology and underwent a bronchoscopy with debulking of a large mass involving the left mainstem bronchus. The left main bronchus was stented. He is being followed by oncology. He has not yet been staged. According to oncology, he will need to be stronger prior to moving forward with management of his lung cancer. - Acute renal failure, HD per renal. - Severe deconditioning. Pt has had a prolonged hospitalization, complicated by PEA arrest on 11/08/16. ST/OT/PT PLAN: - Renal diet with Nepro 3 times a day - Nepro at 65 cc an hour 10 hours, 8 PM to 6 AM - Continue calorie count, 12/06-12/08 with recommendations to follow on 12/09 - Continue speech therapy - PPI - Monitor meal percentages - Monitor H&H - Transfuse as necessary - If H&H remains stable, would recommend holding off on EGD/colonoscopy and lucia early next week after the results from the calorie count are available to determine if PEG tube is needed. If still requiring supplemental nutrition, could place a PEG tube at the same time as EGD/colonoscopy' - Supportive care - Further recommendations to follow based on results of above - Pt seen and examined by Dr. Cavazos and myself and this note is written on his behalf (Audrey Vanegas) Physician Comments Patient seen and examined Agree with above Continue with current supportive care Monitor labs Plan for an EGD and a colonoscopy early next week with possible PEG placement ( Rolo Cavazos MD) Audrey Vanegas Dec 07, 2016 09:31 Rolo Cavazos MD Dec 07, 2016 17:40
--- NOTE | 2016-12-07 10:31 | PD.ONC.PN ---
Subjective Subjective Remarks Afebrile overnight. Patient reports feeling weak today. He did eat breakfast this morning. Denies pain at present. Objective Data Date Time Temp Pulse Resp B/P Pulse Ox O2 Delivery O2 Flow Rate FiO2 12/07/16 08:00 97.2 94 20 132/63 96 12/07/16 06:40 97.6 88 18 130/61 96 12/07/16 03:07 97.7 81 18 136/63 95 12/07/16 00:00 98.0 81 19 131/68 95 12/07/16 00:00 98.0 81 19 131/68 95 12/06/16 20:25 98.5 87 18 157/72 97 12/06/16 20:00 81 12/06/16 20:00 98.5 87 19 157/72 97 12/06/16 16:00 97.4 84 18 134/66 95 12/06/16 12:00 96.5 92 20 140/65 93 Result Diagram: 12/06/16 0355 12/06/16 0355 Culture Results Microbiology Date/Time Procedure Status Source Growth 12/05/16 18:30 Aerobic Blood Culture - Preliminary Resulted Blood Peripheral NO GROWTH IN 1 DAY 12/05/16 18:30 Anaerobic Blood Culture - Final Resulted Blood Peripheral QNS - SEE AEROBE REPORT 12/05/16 18:36 Aerobic Blood Culture - Preliminary Resulted Blood Peripheral NO GROWTH IN 1 DAY 12/05/16 18:36 Anaerobic Blood Culture - Final Resulted Blood Peripheral QNS - SEE AEROBE REPORT 12/06/16 13:00 Stool Occult Blood ([facility]) - Final Complete Stool Stool HEMOCCULT POSITIVE Administered Medications Medications (Trade) Dose Ordered Sig/Luis Carlos Route PRN Reason Start Time Stop Time Status Last Admin Dose Admin IV Flush (NS Flush) 2 ml BID FLUSH 12/05/16 21:00 12/06/16 20:57 Docusate Sodium (Colace) 100 mg Q12H PO 12/05/16 18:00 12/07/16 05:58 Phenytoin (Dilantin) 300 mg BID PO 12/05/16 21:00 12/06/16 20:37 Enalaprilat (Vasotec Inj) 2.5 mg Q6H PRN IV PUSH SBP>160, DBP>90 12/05/16 18:00 12/05/16 18:35 Ferrous Sulfate (Ferrous Sulfate Liq) 300 mg DAILY PO 12/06/16 09:00 12/06/16 10:15 Doxazosin Mesylate (Cardura) 8 mg HS PO 12/05/16 21:00 12/06/16 20:37 Atorvastatin Calcium (Lipitor) 40 mg HS PO 12/05/16 21:00 12/06/16 20:37 Furosemide (Lasix Liq) 40 mg DAILY TUBE 12/06/16 09:00 12/06/16 10:15 Acetaminophen (Tylenol) 650 mg UNSCH PRN PO for headach, pain, temp > 101F 12/06/16 12:15 12/06/16 20:15 Objective Remarks GENERAL: chronically ill appearing, middle aged male, lying supine in bed. SKIN: Warm and dry. HEAD: Normocephalic. EYES: No injection or drainage. NECK: Supple, trachea midline. CARDIOVASCULAR: +S1/S2 RESPIRATORY: anterior loyola with occasional rhonchi. on supplemental O2 via NC GASTROINTESTINAL: Abdomen soft, non-tender, nondistended. EXTREMITIES: No cyanosis, or edema. MUSCULOSKELETAL: extensive muscular deconditioning NEUROLOGICAL: No obvious focal deficit. Awake, alert, and oriented x3. Assessment/Plan Problem List: (1) Squamous cell lung cancer Status: Acute Plan: 12/07/16: will consult GI for + Hemoccult, await PT evaluation, continue supportive care. --will need staging and improvement of performance status before we can more forward with treatment. --will need to obtain pathology report from [facility] the [facility] on Friday (2) Anemia due to GI blood loss Status: Acute Plan: 12/07: GI consulted. awaiting CBC today --Hemoccult positive Assessment 71y/o with newly diagnosed Squamous cell carcinoma of the left mainstem bronchus History: Mr. Lewis history dates back to early October when he began to develop increasing difficulty breathing as well as cough producing blood. He presented to [facility] on 10/22/2016 with acute onset difficulty breathing. He underwent imaging studies including a CT angiogram which revealed complete whiteout of the left lung, associated possible underlying mass / nodularity of the left hilium. He was shortly thereafter intubated. He had high volume hemoptysis. The patient was evaluated CT surgery here and after spending some time on a ventilator. He was transferred to the [facility] in [place] where he was evaluated by interventional pulmonology. He underwent bronchoscopy with debulking of a large mass involving the left mainstem bronchus. The left main bronchus was stented. The hemoptysis was controlled and he was eventually extubated. He did have a very complicated hospital stay though and while in the hospital he had a PEA arrest on 11/08/2016. He was resuscitated. He also developed acute renal failure and required hemodialysis. He has required a feeding. A Dobbhoff tube for feeding purposes. He presently has acute illness related myopathy. And is essentially bed-bound. After his condition was stabilized he was transferred back to [facility] for continuation of care. Attending Statement c/o weakness. [facility]. `` [facility] not [facility]`` stools are heme positive. GI consult HG improve after PRBC. not a candidate for lung ca treatment at this time. Performance status is very poor. will follow. The exam, history, and the medical decision-making described in the above note were completed with the assistance of the mid-level provider. I reviewed and agree with the findings presented. I attest that I had a [id number] encounter with the patient on the same day, and personally performed and documented my assessment and findings in the medical record. Elmira Ely Dec 07, 2016 10:31 Kevon Tyler MD Dec 07, 2016 19:12
[2016-12-07 10:41] LABS: AUTOMATED NEUTROPHIL # 7.2 TH/MM3 (1.8-7.7); BASOPHIL # 0.1 TH/MM3 (0-0.2); BASOPHIL % 0.6 % (0.0-2.0); EOSINOPHIL # 1.5 TH/MM3 (0-0.4); EOSINOPHIL % 13.8 % (0.0-4.0); HEMATOCRIT 25.7 % (39.0-51.0); HEMO FLAGS DIFF FINAL; LYMPH % 6.2 % (9.0-44.0); LYMPHOCYTE # 0.7 TH/MM3 (1.0-4.8); MEAN CELL VOLUME 92.9 FL (80.0-100.0); MEAN CORPUSCULAR HEMOGLOBIN 31.3 PG (27.0-34.0); MEAN CORPUSCULAR HGB CONC 33.7 % (32.0-36.0); MONO % 11.6 % (0.0-8.0); NEUT % 67.8 % (16.0-70.0); PLATELET COUNT 315 TH/MM3 (150-450); RED BLOOD COUNT 2.77 MIL/MM3 (4.50-5.90); RED CELL DISTRIBUTION WIDTH 15.6 % (11.6-17.2); WHITE BLOOD COUNT 10.7 TH/MM3 (4.0-11.0)
[2016-12-07] MEDS: SODIUM CHLORIDE 0.9% FLUSH 5 ML FLUSH FLUSH SCH ×2 (11:15→21:10)
[2016-12-07] MEDS: PHENYTOIN SODIUM 100 MG CAP PO SCH ×2 (11:16→20:57)
[2016-12-07] MEDS: FERROUS SULFATE 300 MG /5ML UDC PO SCH (11:16)
[2016-12-07] MEDS: FUROSEMIDE 40 MG/5 ML UNIT DOSE CUP TUBE SCH (11:16)
[2016-12-07 11:25] LABS: BICARBONATE 27.1 MEQ/L (21.0-32.0); POTASSIUM 4.7 MEQ/L (3.5-5.1)
--- NOTE | 2016-12-07 11:41 | HHI.NPPN ---
Subjective General Problems: Anemia, Edema Renal Failure: Acute History of Present Illness 71 y/o male pt. He was admitted to [facility] in October. At that time his renal function was normal. He was transferred to [facility] for mainstem bronch stent placement. He was admitted to that facility on 11/02/16. On 11/08 he suffered PEA arrest, was intubated. He did have ROSC, became bradycardic, hypotensive and placed on pressors. His creatinine went as high as 6, he was started on dialysis shortly after his arrest. He had a permcath placed prior to transfer back to this facility. He is TTS had HD yesterday.He was placed on 5 days of steroids to treat empirically for AIN. Additional Remarks Patient is alert, no SOB, no dysuria, has been non oliguric. Objective Data Data 12/06/16 12/07/16 19:00 07:00 Intake Total 120 ml 1381 ml Output Total 500 ml 300 ml Balance -380 ml 1081 ml Intake Oral 120 ml 240 ml IV Total 561 ml Tube Feeding 580 ml Output Urine Total 500 ml 300 ml # Bowel Movements 1 1 Vital Signs Date Time Temp Pulse Resp B/P Pulse Ox O2 Delivery O2 Flow Rate FiO2 12/07/16 08:00 97.2 94 20 132/63 96 12/07/16 06:40 97.6 88 18 130/61 96 12/07/16 03:07 97.7 81 18 136/63 95 12/07/16 00:00 98.0 81 19 131/68 95 12/07/16 00:00 98.0 81 19 131/68 95 12/06/16 20:25 98.5 87 18 157/72 97 12/06/16 20:00 81 12/06/16 20:00 98.5 87 19 157/72 97 12/06/16 16:00 97.4 84 18 134/66 95 12/06/16 12:00 96.5 92 20 140/65 93 -: 12/07/16 1010 12/07/16 1010 Microbiology 12/06/16 Stool Occult Blood ([facility]) - Final, Complete HEMOCCULT POSITIVE Physical Exam General Appearance: No Acute Distress, Comfortable Eyes Eye Exam: Pupils Equal Throat Throat Exam: Oral Mucosa [place] & Moist Pulmonary Resp Exam: No Distress, Crackles, Rhonchi, Decreased Bases, Diminished Breath Sounds Cardiology CV Exam: Regular Gastrointestinal/Abdomen GI Exam: Soft, Non-Tender, Distended Extremeties Extremities Exam: Moderate Edema, Pitting Edema Neurologic Neuro Exam: Alert, Awake Psychiatric Psych Exam: Appropriate Responses Assessment/Plan Problem List: (1) Acute renal failure Plan: He had creatinine 0.77 in October Renal failure presumably from ATN due to PEA arrest He is TTS on HD. He is making a good amount of urine, continue lasix at this time his electrolytes are unremarkable await renal recovery avoid nephrotoxins HD again today as Creatinine increasing. (2) Bronchiolar obstruction Plan: s/p stent placement, dx of squamous cell carcinoma med oncology following (3) Acute respiratory failure Plan: extubated, respiratoty status is better he has dobhoff, needs nutrition or speech eval to determine if it is necessary (4) Mass of left lung Plan: oncology has evaluated, appreciate their recommendations of note he has a bladder mass that has not been evaluated as of yet as he was unstable at other facility (5) Anemia Plan: Dr. jose mitchell following anemia work up ordered he was ordered PRBC for transfusion epogen with HD Remigio Denise MD Dec 07, 2016 11:41
--- NOTE | 2016-12-07 13:45 | HHI.PR ---
Subjective Remarks Says he feels very tired. With sob improving. No cp, n/v/d/c. Says he doesn't have much appetite wants to try megace. Says he usually doesn;t eat much . No fever or chills. No cough. Denies having any pain. Objective Vitals Vital Signs Date Time Temp Pulse Resp B/P Pulse Ox O2 Delivery O2 Flow Rate FiO2 12/07/16 12:00 99.3 92 20 127/59 94 12/07/16 08:00 97.2 94 20 132/63 96 12/07/16 06:40 97.6 88 18 130/61 96 12/07/16 03:07 97.7 81 18 136/63 95 12/07/16 00:00 98.0 81 19 131/68 95 12/07/16 00:00 98.0 81 19 131/68 95 12/06/16 20:25 98.5 87 18 157/72 97 12/06/16 20:00 81 12/06/16 20:00 98.5 87 19 157/72 97 12/06/16 16:00 97.4 84 18 134/66 95 I/O 12/06/16 12/06/16 12/06/16 12/07/16 12/07/16 12/07/16 07:00 15:00 23:00 07:00 15:00 23:00 Intake Total 1055 ml 120 ml 0 ml 1381 ml Output Total 750 ml 500 ml 300 ml Balance 305 ml -380 ml 0 ml 1081 ml Intake Oral 480 ml 120 ml 240 ml IV Total 575 ml 0 ml 561 ml Tube Feeding 580 ml Output Urine Total 750 ml 500 ml 300 ml # Bowel Movements 1 1 Result Diagram: 12/07/16 1010 12/07/16 1010 Imaging Last Impressions Chest X-Ray 12/05/16 1700 Signed Impressions: Service Date/Time: November 18:52 - CONCLUSION: Left lung/hemithorax remain essentially completely opacified and with volume loss. Patchy consolidation on the right, mainly at the base. Masslike area right mid lung potentially some loculated pleural fluid. Paul Sinha MD Objective Remarks GENERAL: This is a well-nourished, well-developed patient, in no apparent distress. SKIN: No rashes, ecchymoses or lesions. Cool and dry. HEAD: Atraumatic. Normocephalic. No temporal or scalp tenderness. EYES: Pupils equal round and reactive. Extraocular motions intact. No scleral icterus. No injection or drainage. ENT: Nose without bleeding, purulent drainage or septal hematoma. Throat without erythema, tonsillar hypertrophy or exudate. Uvula midline. Airway patent. NECK: Trachea midline. No JVD or lymphadenopathy. Supple, nontender, no meningeal signs. CARDIOVASCULAR: Regular rate and rhythm without murmurs, gallops, or rubs. RESPIRATORY: Clear to auscultation. Breath sounds equal bilaterally. No wheezes , rales, or rhonchi. GASTROINTESTINAL: Abdomen soft, non-tender, nondistended. No hepato-splenomegaly , or palpable masses. No guarding. MUSCULOSKELETAL: Extremities without clubbing, cyanosis, or edema. No joint tenderness, effusion, or edema noted. No calf tenderness. Negative Homans sign bilaterally. NEUROLOGICAL: Awake and alert. Cranial nerves II through XII intact. Motor and sensory grossly within normal limits. Five out of 5 muscle strength in all muscle groups. Normal speech. A/P Assessment and Plan 71 yo male with Left mainstem bronchus squamous cell carcinoma with out mets s/o stent placement in the left main bronchus at [facility]. Complicated stay with occluded stent in the left main bronchus, was intubated, extubated, currently satting well on 3L NC. Records reviewed ( in the pts chart). Respiratory failure requiring O2 supplement Duonebs as need. Patient was treated for PNA bronch sputum klebsiella + , ( treated at [facility] and finished course of abx per records). Blood cx were negative 11/07/16 ECHO 55-60% Consult hem/onc. Patient needs PET as OP before starting treatment. Patient with anemia HGB 6.6 on 12/06/16. Plan to type and screen and transfuse 2U pRBC.Monitor H/H and transfuse as need. Check iron panel. FOBT. FOBT positive, consult GI, appreciate recommendations. HGB 12/07/16 of 8.7. Monitor and transfuse as need. Nestor count. Per GI will hold EGD/colonoscopy for now, might be a candidate for PEG tube Start megace for appetite enhancing ESRD requiring HD. US kidney at [facility] rev findings consistent with chronic kidney disease. Consult nephrology. Tunnelled dialysis catheter was placed 12/04 ( right) at [facility]. 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 Consult Speech therapy and also consumer banker. HTN- Continue atenolol 25 mg po bid BPH continue doxazosin 8 mg qhs Seizure- Continue Dilantin. Seizure precautions. Stable. DVT ppx with SCD/TEDs Consult case management for DC plan Consult PT/OT/ ST Discussed Condition With Patient, nurse. Discharge Planning needs placement Izzy Degroot MD Dec 07, 2016 13:45
[2016-12-07] MEDS ORDERED: MEGESTROL ACETATE SUSP 400 MG/10 ML CUP PO ONE (14:00)
[2016-12-07] MEDS: GENTAMICIN SULFATE (DIALYSIS USE ONLY) 20 MG/2 ML VIAL IV PRN (16:12)
[2016-12-07] MEDS: HEPARIN SODIUM - IV 10,000 UNITS/10 ML VIAL PRN (16:13)
[2016-12-07] MEDS: EPOETIN ALFA 10,000 UNITS/ML VIAL IV PRN (16:13)
[2016-12-07] MEDS: DOXAZOSIN MESYLATE 4 MG TAB PO SCH (20:57)
[2016-12-07] MEDS: ATORVASTATIN 40 MG TAB PO SCH (20:57)
[2016-12-08] VITALS (7 sets, daily range): BP systolic 127–170; BP diastolic 59–74; PULSE 86–99; RESP 19–20; TEMP 96.4–100.4; O2SAT 92–95
[2016-12-08] MEDS: DOCUSATE SODIUM 100 MG CAP PO SCH ×2 (05:27→16:52)
[2016-12-08 05:47] LABS: AUTOMATED NEUTROPHIL # 7.9 TH/MM3 (1.8-7.7); BASOPHIL % 0.3 % (0.0-2.0); EOSINOPHIL # 1.5 TH/MM3 (0-0.4); EOSINOPHIL % 12.8 % (0.0-4.0); HEMATOCRIT 23.1 % (39.0-51.0); HEMO FLAGS DIFF FINAL; LYMPH % 5.2 % (9.0-44.0); LYMPHOCYTE # 0.6 TH/MM3 (1.0-4.8); MEAN CELL VOLUME 95.4 FL (80.0-100.0); MEAN CORPUSCULAR HEMOGLOBIN 33.2 PG (27.0-34.0); MEAN CORPUSCULAR HGB CONC 34.8 % (32.0-36.0); MONO % 13.5 % (0.0-8.0); NEUT % 68.2 % (16.0-70.0); PLATELET COUNT 303 TH/MM3 (150-450); RED BLOOD COUNT 2.42 MIL/MM3 (4.50-5.90); RED CELL DISTRIBUTION WIDTH 15.6 % (11.6-17.2); WHITE BLOOD COUNT 11.6 TH/MM3 (4.0-11.0)
--- NOTE | 2016-12-08 10:45 | HHI.PR ---
Subjective Remarks In bed, says he feels very tired and he can't stand at all. SOB at baseline says is not worse. No n/v/d/c. Deneis chest pain . No much cough, no blood in it. No n/v/d/c. Sais appetite has improved however he is not eating much. Arms with some swelling, will do doppler US Objective Vitals Vital Signs Date Time Temp Pulse Resp B/P Pulse Ox O2 Delivery O2 Flow Rate FiO2 12/08/16 08:00 100.4 99 20 140/65 92 12/08/16 04:56 97.6 92 19 140/64 93 12/08/16 00:07 96.9 90 20 127/59 93 12/07/16 20:28 99.6 99 19 154/74 93 12/07/16 14:45 98.5 99 20 149/68 92 12/07/16 12:00 99.3 92 20 127/59 94 I/O 12/07/16 12/07/16 12/07/16 12/08/16 12/08/16 12/08/16 07:00 15:00 23:00 07:00 15:00 23:00 Intake Total 1381 ml 240 ml 480 ml 653 ml Output Total 300 ml 550 ml 3300 ml 280 ml Balance 1081 ml -310 ml -2820 ml 373 ml Intake Oral 240 ml 240 ml 480 ml 120 ml IV Total 561 ml 0 ml 0 ml Tube Feeding 580 ml 0 ml 533 ml Output Urine Total 300 ml 550 ml 300 ml 280 ml Hemodialysis 3000 ml # Bowel Movements 1 2 Result Diagram: 12/08/16 0410 12/07/16 1010 Imaging Last Impressions Chest X-Ray 12/05/16 1700 Signed Impressions: Service Date/Time: November 18:52 - CONCLUSION: Left lung/hemithorax remain essentially completely opacified and with volume loss. Patchy consolidation on the right, mainly at the base. Masslike area right mid lung potentially some loculated pleural fluid. Paul Sinha MD Objective Remarks GENERAL: This is a well-nourished, well-developed patient, in no apparent distress. SKIN: No rashes, ecchymoses or lesions. Cool and dry. HEAD: Atraumatic. Normocephalic. No temporal or scalp tenderness. EYES: Pupils equal round and reactive. Extraocular motions intact. No scleral icterus. No injection or drainage. ENT: Nose without bleeding, purulent drainage or septal hematoma. Throat without erythema, tonsillar hypertrophy or exudate. Uvula midline. Airway patent. NECK: Trachea midline. No JVD or lymphadenopathy. Supple, nontender, no meningeal signs. CARDIOVASCULAR: Regular rate and rhythm without murmurs, gallops, or rubs. RESPIRATORY: Clear to auscultation. Breath sounds equal bilaterally. No wheezes , rales, or rhonchi. GASTROINTESTINAL: Abdomen soft, non-tender, nondistended. No hepato-splenomegaly , or palpable masses. No guarding. MUSCULOSKELETAL: Arms swelling. BL LE edema 3+ . Extremities without clubbing, cyanosis. No joint tenderness, effusion, or edema noted. No calf tenderness. Negative Homans sign bilaterally. NEUROLOGICAL: Awake and alert. Cranial nerves II through XII intact. Motor and sensory grossly within normal limits. Five out of 5 muscle strength in all muscle groups. Normal speech. 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 Complicated stay with occluded stent in the left main bronchus, was intubated, extubated, currently satting well on 3L NC. Records reviewed ( in the pts chart). Respiratory failure requiring O2 supplement Duonebs as need. Patient was treated for PNA bronch sputum klebsiella + , ( treated at [facility] and finished course of abx per records). Blood cx were negative 11/07/16 ECHO 55-60% Consult hem/onc. Patient needs PET as OP before starting treatment. Patient with anemia HGB 6.6 on 12/06/16. Plan to type and screen and transfuse 2U pRBC.Monitor H/H and transfuse as need. Check iron panel. FOBT. FOBT positive, consult GI, appreciate recommendations. HGB 12/07/16 of 8.7. Monitor and transfuse as need. Nestor count. Per GI will hold EGD/colonoscopy for now, might be a candidate for PEG tube Start megace for appetite enhancing ESRD requiring HD. US kidney at [facility] rev findings consistent with chronic kidney disease. Consult nephrology. Tunnelled dialysis catheter was placed 12/04 ( right) at [facility]. 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 Consult Speech therapy and also poultry debeaker. HTN- Continue atenolol 25 mg po bid BPH continue doxazosin 8 mg qhs Seizure- Continue Dilantin. Seizure precautions. Stable. DVT ppx with SCD/TEDs Consult case management for DC plan Consult PT/OT/ ST Discussed Condition With Patient, nurse. Discharge Planning needs placement Izzy Degroot MD Dec 08, 2016 10:45
--- NOTE | 2016-12-08 11:03 | HHI.NPPN ---
Subjective General Problems: Anemia, Edema Renal Failure: Acute History of Present Illness 71 y/o male pt. He was admitted to [facility] in October. At that time his renal function was normal. He was transferred to [facility] for mainstem bronch stent placement. He was admitted to that facility on 11/02/16. On 11/08 he suffered PEA arrest, was intubated. He did have ROSC, became bradycardic, hypotensive and placed on pressors. His creatinine went as high as 6, he was started on dialysis shortly after his arrest. He had a permcath placed prior to transfer back to this facility. He is TTS had HD yesterday.He was placed on 5 days of steroids to treat empirically for AIN. Additional Remarks Patient is alert, not eating much, no SOB, with GT. Objective Data Data 12/07/16 12/08/16 19:00 07:00 Intake Total 240 ml 1133 ml Output Total 3550 ml 580 ml Balance -3310 ml 553 ml Intake Oral 240 ml 600 ml IV Total 0 ml Tube Feeding 533 ml Output Urine Total 550 ml 580 ml Hemodialysis 3000 ml # Bowel Movements 2 Vital Signs Date Time Temp Pulse Resp B/P Pulse Ox O2 Delivery O2 Flow Rate FiO2 12/08/16 08:00 100.4 99 20 140/65 92 12/08/16 04:56 97.6 92 19 140/64 93 12/08/16 00:07 96.9 90 20 127/59 93 12/07/16 20:28 99.6 99 19 154/74 93 12/07/16 14:45 98.5 99 20 149/68 92 12/07/16 12:00 99.3 92 20 127/59 94 -: 12/08/16 0410 12/07/16 1010 Physical Exam General Appearance: No Acute Distress, Comfortable Eyes Eye Exam: Pupils Equal Throat Throat Exam: Oral Mucosa Meigs & Moist Pulmonary Resp Exam: No Distress, Crackles, Rhonchi, Decreased Bases, Diminished Breath Sounds Cardiology CV Exam: Regular Gastrointestinal/Abdomen GI Exam: Soft, Non-Tender, Distended Extremeties Extremities Exam: Moderate Edema, Pitting Edema Neurologic Neuro Exam: Alert, Awake Psychiatric Psych Exam: Appropriate Responses Assessment/Plan Problem List: (1) Acute renal failure Plan: He had creatinine 0.77 in October Renal failure presumably from ATN due to PEA arrest He is TTS on HD. He is making a good amount of urine, continue lasix at this time his electrolytes are unremarkable await renal recovery avoid nephrotoxins HD done yesterday and 3 liters removed. Follow BMP and HD as needed. (2) Bronchiolar obstruction Plan: s/p stent placement, dx of squamous cell carcinoma med oncology following (3) Acute respiratory failure Plan: extubated, respiratoty status is better he has dobhoff, needs nutrition or speech eval to determine if it is necessary (4) Mass of left lung Plan: oncology has evaluated, appreciate their recommendations of note he has a bladder mass that has not been evaluated as of yet as he was unstable at other facility (5) Anemia Plan: Dr. jose mitchell following anemia work up ordered he was ordered PRBC for transfusion epogen with HD Remigio Denise MD Dec 08, 2016 11:03
[2016-12-08] MEDS: MEGESTROL ACETATE SUSP 400 MG/10 ML CUP PO SCH (11:17)
[2016-12-08] MEDS: FUROSEMIDE 40 MG/5 ML UNIT DOSE CUP TUBE SCH (11:17)
[2016-12-08] MEDS: FERROUS SULFATE 300 MG /5ML UDC PO SCH (11:17)
[2016-12-08] MEDS: SODIUM CHLORIDE 0.9% FLUSH 5 ML FLUSH FLUSH SCH ×2 (11:17→21:00)
--- NOTE | 2016-12-08 16:16 | HHI.GIFU ---
Subjective Remarks Pt not eating much despite reported improvement in appetite Tmax 100.4 this morning. Pt is on 4L via NA with O2 sats in the low 90's (Kimberly Kwok) Objective Vitals I&O Vital Signs Date Time Temp Pulse Resp B/P Pulse Ox O2 Delivery O2 Flow Rate FiO2 12/08/16 12:00 97.8 86 20 131/61 94 12/08/16 08:00 94 Nasal Cannula 4.00 12/08/16 08:00 100.4 99 20 140/65 92 12/08/16 04:56 97.6 92 19 140/64 93 12/08/16 00:07 96.9 90 20 127/59 93 12/07/16 20:28 99.6 99 19 154/74 93 I/O 12/07/16 12/07/16 12/07/16 12/08/16 12/08/16 12/08/16 07:00 15:00 23:00 07:00 15:00 23:00 Intake Total 1381 ml 240 ml 480 ml 653 ml Output Total 300 ml 550 ml 3300 ml 280 ml Balance 1081 ml -310 ml -2820 ml 373 ml Intake Oral 240 ml 240 ml 480 ml 120 ml IV Total 561 ml 0 ml 0 ml Tube Feeding 580 ml 0 ml 533 ml Output Urine Total 300 ml 550 ml 300 ml 280 ml Hemodialysis 3000 ml # Bowel Movements 1 2 Laboratory Laboratory Tests Test 12/08/16 12/08/16 04:10 10:10 White Blood Count 11.6 Red Blood Count 2.42 Hemoglobin 8.0 Hematocrit 23.1 Mean Corpuscular Volume 95.4 Mean Corpuscular Hemoglobin 33.2 Mean Corpuscular Hemoglobin 34.8 Concent Red Cell Distribution Width 15.6 Platelet Count 303 Mean Platelet Volume 7.0 Neutrophils (%) (Auto) 68.2 Lymphocytes (%) (Auto) 5.2 Monocytes (%) (Auto) 13.5 Eosinophils (%) (Auto) 12.8 Basophils (%) (Auto) 0.3 Neutrophils # (Auto) 7.9 Lymphocytes # (Auto) 0.6 Monocytes # (Auto) 1.6 Eosinophils # (Auto) 1.5 Basophils # (Auto) 0.0 CBC Comment DIFF FINAL Differential Comment Phenytoin (Dilantin) Level 4.1 Date/Time Procedure Status Source Growth 12/06/16 13:00 Stool Occult Blood ([facility]) - Final Complete Stool Stool HEMOCCULT POSITIVE 12/05/16 18:36 Aerobic Blood Culture - Preliminary Resulted Blood Peripheral NO GROWTH IN 3 DAYS 12/05/16 18:36 Anaerobic Blood Culture - Final Resulted Blood Peripheral QNS - SEE AEROBE REPORT Imaging Last Impressions Chest X-Ray 12/05/16 1700 Signed Impressions: Service Date/Time: November 18:52 - CONCLUSION: Left lung/hemithorax remain essentially completely opacified and with volume loss. Patchy consolidation on the right, mainly at the base. Masslike area right mid lung potentially some loculated pleural fluid. Paul Sinha MD Physical Exam HEENT: Pupils round and reactive to light; normocephalic; atraumatic; no jaundice. Throat is clear. NECK: Neck is supple, no JVD, no lymphadenopathy. CHEST: Chest is clear to auscultation and percussion. CARDIAC: Regular rate and rhythm with no murmur gallop or rubs. ABDOMEN: Soft, nondistended, nontender; bowel sounds are present in all four quadrants. EXTREMITIES: Edema in both UE and LE SKIN: Normal; no rash; no jaundice. 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 (Kimberly Kwok) Assessment and Plan Plan ASSESSMENT: - Iron Deficiency Anemia with Hemoccult positive stool. HH on arrival yesterday was 6.6/20.0. He was given 2 units of PRBC with improvement to 8.7/ 25.7. Repeat labs to with H/H 8.0/23.1 (12/08). He is not having any obvious GI bleeding at this time. Other than decreased appetite, he denies any GI symptoms. He last had an EGD and colonoscopy was about 4-5 years ago at the [facility] and reports that he had a colon polyp removed at that time. Iron 25, TIBC 197, TIBC 197, Iron saturation 12.7. - Protein calorie malnutrition. Patient currently has Dobbhoff in place. He denies any actual dysphagia or odynophagia. He cannot tell me what percentage of his meals that he is taking in. Speech therapy is following and has recommended a mechanical soft diet with nectar thickened liquids. The dietitian is also following recommended nocturnal feedings with Nepro at 65 cc an hour 10 hours from 8 PM to 6 AM, renal diet, Nepro 3 times a day to trace, calorie count through the weekend with nutritional recommendations to follow on 12/09. 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 Patient was hospitalized at this facility last month after developing shortness of breath and significant hemoptysis. He required mechanical ventilation. He was evaluated by CVT and then transferred to the [facility] in [place]. He was evaluated by Interventional pulmonology and underwent a bronchoscopy with debulking of a large mass involving the left mainstem bronchus. The left main bronchus was stented. He is being followed by oncology. He has not yet been staged. According to oncology, he will need to be stronger prior to moving forward with management of his lung cancer. - Acute renal failure, HD per renal. - Severe deconditioning. Pt has had a prolonged hospitalization, complicated by PEA arrest on 11/08/16. ST/OT/PT PLAN: - Renal diet with Nepro 3 times a day - Nepro at 65 cc an hour 10 hours, 8 PM to 6 AM - Continue calorie count, 12/06-12/08 with recommendations to follow on 12/09 - Continue speech therapy - PPI - Monitor meal percentages - Monitor H&H - Transfuse as necessary - If H&H remains stable, would recommend holding off on EGD/colonoscopy until early next week after the results from the calorie count are available to determine if PEG tube is needed. If still requiring supplemental nutrition, could place a PEG tube at the same time as EGD/colonoscopy - Supportive care - Further recommendations to follow as the case develops - Pt seen and examined by Dr. Cavazos and myself and this note is written on his behalf (Kimberly Kwok) Physician Comments Patient seen and examined Agree with above Continue with current supportive care Monitor labs At this point endoscopies on hold until we determine as to whether patient will require PEG tube or not He is in fact without any evidence of bleeding and hemodynamically stable ( Rolo Cavazos MD) Kimberly Kwok Dec 08, 2016 16:16 Rolo Cavazos MD Dec 08, 2016 18:46
--- NOTE | 2016-12-08 18:38 | RADRPT ---
EXAM DATE/TIME: 12/08/2016 17:23 [place] COMPARISON: No previous studies available for comparison. INDICATIONS : Swelling in bilateral upper extremities. MEDICAL HISTORY : Seizures. Hypercholesterolemia. Hypertension. Dyspnea. Enlarged prostate. SURGICAL HISTORY : Tonsillectomy. ENCOUNTER: Initial ACUITY: 1 day PAIN SCORE: 3/10 LOCATION: Bilateral arms. FINDINGS: RIGHT UPPER EXTREMITY: There is spontaneous flow documented in the brachial, basilic, axillary, and subclavian veins. These vessels are compressible and augmentation response is documented. There is superficial thrombus in t he cephalic vein in the mid right arm with no flow. Direction of flow in the jugular vein is caudal. LEFT UPPER EXTREMITY: There is spontaneous flow documented in the brachial, basilic, cephalic, axillary, and subclavian vei ns. The vessels are compressible and augmentation response is documented. No filling defects are se en. The flow is phasic with respiration. Direction of flow in the jugular vein is caudal. CONCLUSION: 1. Superficial thrombosis in the right cephalic vein at the level of the mid arm. 2. The left upper extremity venous system is patent. Emerson Grissom MD on December 08, 2016 at 18:35 Board Certified Radiologist. This report was verified electronically.
[2016-12-08] MEDS: ATORVASTATIN 40 MG TAB PO SCH (21:54)
[2016-12-08] MEDS: DOXAZOSIN MESYLATE 4 MG TAB PO SCH (21:54)
[2016-12-08] MEDS: PHENYTOIN SUSP 100 MG/4 ML CUP PO SCH (21:54)
[2016-12-08] MEDS: HEPARIN SODIUM - SQ 10,000 UNITS/ML VIAL SQ SCH (21:55)
[2016-12-09] VITALS (7 sets, daily range): BP systolic 129–143; BP diastolic 51–65; PULSE 74–100; RESP 16–19; TEMP 97.4–99.5; O2SAT 91–96
[2016-12-09 05:19] LABS: AUTOMATED NEUTROPHIL # 6.5 TH/MM3 (1.8-7.7); BASOPHIL % 0.4 % (0.0-2.0); EOSINOPHIL # 1.3 TH/MM3 (0-0.4); EOSINOPHIL % 13.2 % (0.0-4.0); HEMATOCRIT 23.6 % (39.0-51.0); HEMO FLAGS DIFF FINAL; LYMPH % 6.4 % (9.0-44.0); LYMPHOCYTE # 0.6 TH/MM3 (1.0-4.8); MEAN CELL VOLUME 95.1 FL (80.0-100.0); MEAN CORPUSCULAR HEMOGLOBIN 33.7 PG (27.0-34.0); MEAN CORPUSCULAR HGB CONC 35.4 % (32.0-36.0); MONO % 13.1 % (0.0-8.0); NEUT % 66.9 % (16.0-70.0); PLATELET COUNT 325 TH/MM3 (150-450); RED BLOOD COUNT 2.48 MIL/MM3 (4.50-5.90); RED CELL DISTRIBUTION WIDTH 15.7 % (11.6-17.2); WHITE BLOOD COUNT 9.7 TH/MM3 (4.0-11.0)
[2016-12-09] MEDS: DOCUSATE SODIUM 100 MG CAP PO SCH ×2 (06:00→16:55)
--- NOTE | 2016-12-09 07:45 | PD.ONC.PN ---
Subjective Subjective Remarks Mr. Jaime was seen and examined this morning. He reports feeling "better" today. He specifically tells me his breathing is improved. He denies hemoptysis, tells me he has been swallowing without too much difficulty but his appetite is poor. Over the course of the weekend he was found to have a superficial venous thrombosis involving the cephalic vein of the right upper extremity. Over the course of the weekend he was resumed on hemodialysis, he was seen by physical therapy and dietary as well as our speech therapists. Objective Data Date Time Temp Pulse Resp B/P Pulse Ox O2 Delivery O2 Flow Rate FiO2 12/09/16 05:13 99.0 100 19 140/58 94 12/09/16 00:13 98.6 92 19 141/65 92 12/08/16 20:14 99.0 90 19 153/67 95 12/08/16 19:59 95 Nasal Cannula 4.00 12/08/16 16:00 96.4 89 20 170/74 94 12/08/16 12:00 97.8 86 20 131/61 94 12/08/16 08:00 94 Nasal Cannula 4.00 12/08/16 08:00 100.4 99 20 140/65 92 12/09/16 12/09/16 12/09/16 07:00 15:00 23:00 Intake Total 120 ml Output Total 250 ml Balance -130 ml Result Diagram: 12/09/16 0405 12/07/16 1010 Laboratory Results Laboratory Tests Test 12/08/16 12/09/16 10:10 04:05 Phenytoin (Dilantin) Level 4.1 MCG/ML White Blood Count 9.7 TH/MM3 Red Blood Count 2.48 MIL/MM3 Hemoglobin 8.4 GM/DL Hematocrit 23.6 % Mean Corpuscular Volume 95.1 FL Mean Corpuscular Hemoglobin 33.7 PG Mean Corpuscular Hemoglobin 35.4 % Concent Red Cell Distribution Width 15.7 % Platelet Count 325 TH/MM3 Mean Platelet Volume 7.1 FL Neutrophils (%) (Auto) 66.9 % Lymphocytes (%) (Auto) 6.4 % Monocytes (%) (Auto) 13.1 % Eosinophils (%) (Auto) 13.2 % Basophils (%) (Auto) 0.4 % Neutrophils # (Auto) 6.5 TH/MM3 Lymphocytes # (Auto) 0.6 TH/MM3 Monocytes # (Auto) 1.3 TH/MM3 Eosinophils # (Auto) 1.3 TH/MM3 Basophils # (Auto) 0.0 TH/MM3 CBC Comment DIFF FINAL Differential Comment Culture Results Microbiology Date/Time Procedure Status Source Growth 12/06/16 13:00 Stool Occult Blood ([facility]) - Final Complete Stool Stool HEMOCCULT POSITIVE Administered Medications Medications (Trade) Dose Ordered Sig/Luis Carlos Route PRN Reason Start Time Stop Time Status Last Admin Dose Admin IV Flush (NS Flush) 2 ml BID FLUSH 12/05/16 21:00 12/08/16 21:00 Docusate Sodium (Colace) 100 mg Q12H PO 12/05/16 18:00 12/07/16 05:58 Enalaprilat (Vasotec Inj) 2.5 mg Q6H PRN IV PUSH SBP>160, DBP>90 12/05/16 18:00 12/05/16 18:35 Ferrous Sulfate (Ferrous Sulfate Liq) 300 mg DAILY PO 12/06/16 09:00 12/08/16 11:17 Doxazosin Mesylate (Cardura) 8 mg HS PO 12/05/16 21:00 12/08/16 21:54 Atorvastatin Calcium (Lipitor) 40 mg HS PO 12/05/16 21:00 12/08/16 21:54 Furosemide (Lasix Liq) 40 mg DAILY TUBE 12/06/16 09:00 12/08/16 11:17 Heparin Sodium (Porcine) (Heparin Inj) UNSCH PRN .XX WITH DIALYSIS 12/06/16 12:15 12/07/16 16:13 Gentamicin Sulfate (Gentamicin (Dialysis) Inj) 20 mg UNSCH PRN IV WITH DIALYSIS 12/06/16 12:15 12/07/16 16:12 Acetaminophen (Tylenol) 650 mg UNSCH PRN PO for headach, pain, temp > 101F 12/06/16 12:15 12/06/16 20:15 Epoetin Blanco (Epogen Inj) 10,000 units UNSCH PRN IV WITH DIALYSIS 12/06/16 12:15 12/07/16 16:13 Megestrol Acetate (Megace Liq) 400 mg DAILY PO 12/08/16 09:00 12/08/16 11:17 Heparin Sodium (Porcine) (Heparin Inj) 5,000 units Q12HR SQ 12/08/16 21:00 12/08/16 21:55 Phenytoin (Dilantin Liq) 300 mg Q12HR PO 12/08/16 21:00 12/08/16 21:54 Objective Remarks 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 He is laying in bed. He has a Dobbhoff tube inside one of his nostrils. There is a dialysis catheter on the right side. HEAD, EYES, EARS, NOSE, AND THROAT: Head atraumatic, normocephalic, conjunctive a are pale sclerae are anicteric, Extraocular muscles intact, Pupils equal, round, reactive to light and accommodation, oral exam dry mucous membranes. No pharyngeal erythema. NECK: Neck exam no palpable cervical or supraclavicular adenopathy. RESPIRATORY EXAMINATION: Distant sounding breath sounds. Prolonged expiratory phase, decreased bibasilar breath sounds. Right sided air movement is somewhat better than the left side. CARDIOVASCULAR SYSTEM: Regular rate and rhythm, S1-S2. No obvious murmurs, gallops. ABDOMINAL EXAMINATION: Obese, soft and nontender, nondistended palpable organ enlargement. LOWER EXTREMITIES: Bilateral. No pretibial edema or calf tenderness. CENTRAL NERVOUS SYSTEM: No focal sensory or motor deficits however, he is generally weak. MUSCULOSKELETAL: Generally atrophic muscles. His right upper extremity seems to be at a mass. Upper extremity is: Bilateral edema. Assessment/Plan Problem List: (1) Squamous cell lung cancer Status: Acute Plan: 12/07/16: will consult GI for + Hemoccult, await PT evaluation, continue supportive care. --will need staging and improvement of performance status before we can more forward with treatment. --will need to obtain pathology report from [facility] on Friday. (2) Anemia due to GI blood loss Status: Acute Plan: 12/07: GI consulted. awaiting CBC today --Hemoccult positive Iron sucrose 100 mg IV daily 3 days has been ordered. Assessment 71y/o with newly diagnosed Squamous cell carcinoma of the left mainstem bronchus History: Mr. Jaime's history dates back to September 2016 when he began to develop increasing difficulty breathing as well as cough producing blood. He presented to [facility] on 10/22/2016 with acute worsening of difficulty breathing. He underwent imaging studies including a CT angiogram which revealed complete whiteout of the left lung, associated possible underlying mass / nodularity of the left hilum. He was shortly thereafter intubated. He had high volume hemoptysis. The patient was evaluated CT surgery here and after spending some time on a ventilator. He was transferred to the [facility] in [place] where he was evaluated by interventional pulmonology. 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 The left main bronchus was stented. The hemoptysis was controlled and he was eventually extubated. He did have a very complicated hospital stay though and while in the hospital he had a PEA arrest on 11/08/2016. He was resuscitated. He also developed acute renal failure and required hemodialysis. He has required a Dobbhoff tube for feeding purposes. 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 After his condition was stabilized he was transferred back to [facility] for continuation of care. Plan 1. Continue nutritional support, he has been evaluated by GI for possible PEG tube placement. This may be helpful to help supplement his diet in the short- term. He is currently on a calorie count and this will help us determine how well he is able to nurse himself enterally. 2. Renal failure: Continue hemodialysis; per the nephrology team. 3. Physical therapy: Continue rehabilitation, his performance status and functional status needs to substantially improve should he be a candidate for even palliative systemic chemotherapy for management of his lung carcinoma. I.e. he will need to be able to ambulate on his own, care for himself and be independent of assistance for all activities of daily living. 4. Squamous cell carcinoma of the lung: Await full pathology report from the [facility] in [place]. He will eventually require staging which can be done as an outpatient. 5. Anemia: I have ordered IV iron replacement therapy for management of anemia. Serum iron studies were consistent with iron deficiency. Problem Qualifiers (1) Squamous cell lung cancer: Qualified Code: C34.92 - Squamous cell lung cancer, left Tevin Hobbs MD Dec 09, 2016 07:45
--- NOTE | 2016-12-09 09:21 | HHI.PR ---
Subjective Remarks generalized weakness, no pain complaints tolerating tube feedings at night taking po during days, no nausea, vomiting or abdominal pain Objective Vitals Vital Signs Date Time Temp Pulse Resp B/P Pulse Ox O2 Delivery O2 Flow Rate FiO2 12/09/16 08:00 97.8 96 16 140/56 96 12/09/16 05:13 99.0 100 19 140/58 94 12/09/16 00:13 98.6 92 19 141/65 92 12/08/16 20:14 99.0 90 19 153/67 95 12/08/16 19:59 95 Nasal Cannula 4.00 12/08/16 16:00 96.4 89 20 170/74 94 12/08/16 12:00 97.8 86 20 131/61 94 I/O 12/08/16 12/08/16 12/08/16 12/09/16 12/09/16 12/09/16 06:59 14:59 22:59 06:59 14:59 22:59 Intake Total 653 ml 360 ml 360 ml 751 ml Output Total 280 ml 150 ml 290 ml 250 ml Balance 373 ml 210 ml 70 ml 501 ml Intake Oral 120 ml 360 ml 360 ml 120 ml IV Total 0 ml 0 ml Tube Feeding 533 ml 631 ml Output Urine Total 280 ml 150 ml 290 ml 250 ml # Bowel Movements 2 2 1 Result Diagram: 12/09/16 0405 12/07/16 1010 Imaging Last Impressions Upper Extremity Ultrasound 12/08/16 0000 Signed Impressions: Service Date/Time: Thursday, December 08, 2016 17:23 - CONCLUSION: 1. Superficial thrombosis in the right cephalic vein at the level of the mid arm. 2. The left upper extremity venous system is patent. Emerson Grissom MD Chest X-Ray 12/05/16 1700 Signed Impressions: Service Date/Time: November 18:52 - CONCLUSION: Left lung/hemithorax remain essentially completely opacified and with volume loss. Patchy consolidation on the right, mainly at the base. Masslike area right mid lung potentially some loculated pleural fluid. 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 Complicated stay with occluded stent in the left main bronchus, was intubated , extubated, [id number] sat good on 3L NC. Records reviewed ( in the pts chart ). Hematology ff BPH continue doxazosin 8 mg qhs . Bladder Mass Urology consulted- Respiratory failure requiring O2 supplement Duonebs as need. Patient was treated for PNA bronch sputum klebsiella + , ( treated at [facility] and finished course of abx per records). Blood cx were negative 11/07/16 ECHO 55-60% Iron deficiency Anemia- low Iron stores Hematology ff- IV Iron FOBT positive, consult GI, appreciate recommendations. ESRD requiring HD. US kidney at [facility] rev findings consistent with chronic kidney disease. Tunnelled dialysis catheter was placed 12/04/16 ( right) at [facility]. 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 Consult Speech therapy and also service order dispatcher chief. GI ff HTN- Continue atenolol 25 mg po bid Seizure- Continue Dilantin. Seizure precautions. Stable. DVT ppx with SCD/TEDs Rossi count ongoing - Per GI , might be a candidate for PEG tube Megace for appetite Consult case management - will need SNF Consult PT/OT/ ST daily- deconditioning Sarah Kirkpatrick MD Dec 09, 2016 09:21
[2016-12-09] MEDS: IRON SUCROSE INJ 100 MG in SODIUM CHLORIDE 0.9% INJ 100 ML IV SCH (10:24)
[2016-12-09] MEDS: HEPARIN SODIUM - SQ 10,000 UNITS/ML VIAL SQ SCH ×2 (10:25→20:08)
[2016-12-09] MEDS: MEGESTROL ACETATE SUSP 400 MG/10 ML CUP PO SCH (10:25)
[2016-12-09] MEDS: PHENYTOIN SUSP 100 MG/4 ML CUP PO SCH ×2 (10:25→20:09)
[2016-12-09] MEDS: SODIUM CHLORIDE 0.9% FLUSH 5 ML FLUSH FLUSH SCH ×2 (10:25→20:09)
[2016-12-09] MEDS: FUROSEMIDE 40 MG/5 ML UNIT DOSE CUP TUBE SCH (10:25)
[2016-12-09] MEDS: FERROUS SULFATE 300 MG /5ML UDC PO SCH (10:25)
[2016-12-09 10:51] LABS: BICARBONATE 29.4 MEQ/L (21.0-32.0); POTASSIUM 3.9 MEQ/L (3.5-5.1)
--- NOTE | 2016-12-09 11:34 | HHI.NPPN ---
Subjective General Problems: Anemia, Edema Renal Failure: Acute History of Present Illness 71 y/o male pt. Transferred to [facility] from [facility] with renal failure from AT on HD Interval History He is lethargic today. He has been receiving tube feeding. DVT left arm. ( Marina Mcgovern) Review of Systems General Constitutional: Fatigue (Marina Mcgovern) Objective Data Data 12/08/16 12/09/16 19:00 07:00 Intake Total 360 ml 1111 ml Output Total 150 ml 540 ml Balance 210 ml 571 ml Intake Oral 360 ml 480 ml IV Total 0 ml Tube Feeding 631 ml Output Urine Total 150 ml 540 ml # Bowel Movements 2 3 Vital Signs Date Time Temp Pulse Resp B/P Pulse Ox O2 Delivery O2 Flow Rate FiO2 12/09/16 11:15 92 Nasal Cannula 3.00 12/09/16 08:00 97.8 96 16 140/56 96 12/09/16 05:13 99.0 100 19 140/58 94 12/09/16 00:13 98.6 92 19 141/65 92 12/08/16 20:14 99.0 90 19 153/67 95 12/08/16 19:59 95 Nasal Cannula 4.00 12/08/16 16:00 96.4 89 20 170/74 94 12/08/16 12:00 97.8 86 20 131/61 94 (Marina Mcgovern) -: 12/09/16 0405 12/09/16 0957 Imaging Last Impressions Upper Extremity Ultrasound 12/08/16 0000 Signed Impressions: Service Date/Time: Thursday, December 08, 2016 17:23 - CONCLUSION: 1. Superficial thrombosis in the right cephalic vein at the level of the mid arm. 2. The left upper extremity venous system is patent. Emerson Grissom MD Chest X-Ray 12/05/16 1700 Signed Impressions: Service Date/Time: November 18:52 - CONCLUSION: Left lung/hemithorax remain essentially completely opacified and with volume loss. Patchy consolidation on the right, mainly at the base. Masslike area right mid lung potentially some loculated pleural fluid. Paul Sinha MD Tubes & Lines: Lipscomb Tubes & Lines Comment dobhoff tube (Marina Mcgovern) Physical Exam General Appearance: No Acute Distress, Comfortable (Marina Mcgovern BUSINESS PROCESS CONSULTANT) Eyes Eye Exam: Pupils Equal (Marina Mcgovern BUSINESS PROCESS CONSULTANT) Throat Throat Exam: Oral Mucosa [place] & Moist (Marina Mcgovern BUSINESS PROCESS CONSULTANT) Pulmonary Resp Exam: No Distress, Crackles, Rhonchi, Decreased Bases, Diminished Breath Sounds (Marina Mcgovern BUSINESS PROCESS CONSULTANT) Cardiology CV Exam: Regular (Marina Mcgovern BUSINESS PROCESS CONSULTANT) Gastrointestinal/Abdomen GI Exam: Soft, Non-Tender, Distended (Marina Mcgovern BUSINESS PROCESS CONSULTANT) Integumentary Skin Exam: Warm, Dry (Marina Mcgovern BUSINESS PROCESS CONSULTANT) Extremeties Extremities Exam: Moderate Edema, Pitting Edema Extremeties Remarks left arm edematous (Marina Mcgovern BUSINESS PROCESS CONSULTANT) Neurologic Neuro Exam: Alert, Awake (Marina McgovernP) Psychiatric Psych Exam: Appropriate Responses (Marina Mcgovern) Assessment/Plan Discussed Condition With: Patient Assessment Summary: TODD/Acute Renal Failure, Acute Tubular Necrosis Problem List: (1) Acute renal failure Plan: He had creatinine 0.77 in October Renal failure ATN due to PEA arrest He is TTS on HD. Had 3L UF friday, he is due tomorrow creatinine is worse today he is non oliguric, continue lasix await renal recovery avoid nephrotoxins daily renal panel (2) Bronchiolar obstruction Plan: s/p stent placement, dx of squamous cell carcinoma med oncology following (3) Acute respiratory failure Plan: extubated, respiratory status is better he has dobhoff, on tube feeding may need PEG if caloric intake is not sufficient (4) Mass of left lung Plan: oncology has evaluated, appreciate their recommendations he is unstable for treatment at this time of note he has a bladder mass that has not been evaluated as of yet, urology to be consulted (5) Anemia Plan: Dr. jose mitchell following transfused last week, has iron deficiency started on Venofer epogen with HD (Marina Mcgovern. BUSINESS PROCESS CONSULTANT) Plan patient was seen and examined. His prognosis is poor. Urology to assess bladder mass. Avoid nephrotoxic agents. Monitor for signs of renal recovery, until then he will need dialysis. (Willian Borjas MD) Marina Mcgovern Dec 09, 2016 11:34 Willian Borjas MD Dec 10, 2016 11:39
--- NOTE | 2016-12-09 12:46 | PD.CONS ---
[facility] Service Urology Consult Requested By Primary Care Physician [facility] Diagnosis: History of Present Illness 71-year-old pleasant male has had an unfortunate long hospitalization. He initially presented to [facility] back at the end of September with difficulty breathing. He is found to have complete opacification of the left lung field on CT scan. He was stabilized and transferred over to the [facility] in [facility] and underwent pulmonary stenting of his left main bronchus due to a large squamous cell carcinoma causing obstruction of his airway. While there he was placed on a ventilator for approximately a month and suffered a PEA arrest. He was placed on multiple pressors at that time due to hypotension and then developed acute renal failure. Since then he's require dialysis and a vascular access catheter was placed. Imaging studies including a CT scan and renal bladder ultrasound demonstrated concern for a 6 cm bladder mass versus clot. Follow-up renal bladder ultrasounds demonstrated a vascular mass within the bladder measuring approximate 7.4 x 6.2 x 6.4 cm in diameter. He does note a history of BPH with obstruction and history of nocturia 5-6 times. He also states back in September he did notice gross hematuria at the time. He presently has a Lipscomb catheter in place and his urine is now clear. The patient does have a long history of smoking in the past. These findings are concerning for bladder cancer. Review of Systems ROS Limitations: Other (somnolent) Constitutional: DENIES: Diaphoretic episodes Eyes: DENIES: Blurred vision Respiratory: DENIES: Apneas Cardiovascular: DENIES: Chest pain Gastrointestinal: DENIES: Abdominal pain Immunologic/allergic: DENIES: Eczema Neurologic: COMPLAINS OF: Abnormal gait (deconditioned) Past Family Social History Past Medical History Squamous cell carcinoma lung BPH with obstruction Acute renal failure on hemodialysis Hypertension Seizure disorder Dysphasia; currently receiving Dobbhoff tube feedings. PEA arrest Deep vein thrombosis Past Surgical History Stenting of left mainstem bronchus Hemodialysis access catheter placement Tonsillectomy Allergies: Coded Allergies: No Known Allergies (Unverified , 10/21/16) Family History Lung cancer due to smoking Social History Long history of smoking Denies drinking or using drugs Physical Exam Vital Signs Date Time Temp Pulse Resp B/P Pulse Ox O2 Delivery O2 Flow Rate FiO2 12/09/16 12:00 97.7 74 16 134/62 91 12/09/16 11:15 92 Nasal Cannula 3.00 12/09/16 08:00 97.8 96 16 140/56 96 12/09/16 05:13 99.0 100 19 140/58 94 12/09/16 00:13 98.6 92 19 141/65 92 12/08/16 20:14 99.0 90 19 153/67 95 12/08/16 19:59 95 Nasal Cannula 4.00 12/08/16 16:00 96.4 89 20 170/74 94 Physical Exam GENERAL: Deconditioned 71-year-old male in no apparent distress. SKIN: No rashes, ecchymoses or lesions. Cool and dry. HEAD: Atraumatic. Normocephalic. No temporal or scalp tenderness. EYES: Pupils equal round and reactive. Extraocular motions intact. No scleral icterus. No injection or drainage. ENT: Nose without bleeding, purulent drainage or septal hematoma. Throat without erythema, tonsillar hypertrophy or exudate. Uvula midline. Airway patent. Dobbhoff in place NECK: Trachea midline. No JVD or lymphadenopathy. Supple, nontender, no meningeal signs. CARDIOVASCULAR: Regular rate and rhythm without murmurs, gallops, or rubs. RESPIRATORY: Clear to auscultation. Breath sounds equal bilaterally. No wheezes , rales, or rhonchi. GASTROINTESTINAL: Abdomen soft, non-tender, nondistended. No hepato-splenomegaly , or palpable masses. No guarding. GENITOURINARY: Uncircumcised phallus with testes descended. Lipscomb catheter in place with clear urine noted. MUSCULOSKELETAL: Extremities without clubbing, cyanosis, or edema. No joint tenderness, effusion, or edema noted. No calf tenderness. Negative Homans sign bilaterally. NEUROLOGICAL: Awake and alert. Normal speech. Laboratory Tests Test 12/09/16 12/09/16 04:05 09:57 White Blood Count 9.7 Red Blood Count 2.48 Hemoglobin 8.4 Hematocrit 23.6 Mean Corpuscular Volume 95.1 Mean Corpuscular Hemoglobin 33.7 Mean Corpuscular Hemoglobin 35.4 Concent Red Cell Distribution Width 15.7 Platelet Count 325 Mean Platelet Volume 7.1 Neutrophils (%) (Auto) 66.9 Lymphocytes (%) (Auto) 6.4 Monocytes (%) (Auto) 13.1 Eosinophils (%) (Auto) 13.2 Basophils (%) (Auto) 0.4 Neutrophils # (Auto) 6.5 Lymphocytes # (Auto) 0.6 Monocytes # (Auto) 1.3 Eosinophils # (Auto) 1.3 Basophils # (Auto) 0.0 CBC Comment DIFF FINAL Differential Comment Sodium Level 139 Potassium Level 3.9 Chloride Level 100 Carbon Dioxide Level 29.4 Anion Gap 10 Blood Urea Nitrogen 63 Creatinine 4.96 Estimat Glomerular Filtration 12 Rate Random Glucose 114 Calcium Level 7.4 Phosphorus Level 4.5 Albumin 1.7 Date/Time Procedure Status Source Growth 12/06/16 13:00 Stool Occult Blood ([place]) - Final Complete Stool Stool HEMOCCULT POSITIVE 12/05/16 18:36 Aerobic Blood Culture - Preliminary Resulted Blood Peripheral NO GROWTH IN 4 DAYS 12/05/16 18:36 Anaerobic Blood Culture - Final Resulted Blood Peripheral QNS - SEE AEROBE REPORT Result Diagram: 12/09/16 0405 12/09/16 0957 Imaging Last Impressions Upper Extremity Ultrasound 12/08/16 0000 Signed Impressions: Service Date/Time: Thursday, December 08, 2016 17:23 - CONCLUSION: 1. Superficial thrombosis in the right cephalic vein at the level of the mid arm. 2. The left upper extremity venous system is patent. Emerson Grissom MD Chest X-Ray 12/05/16 1700 Signed Impressions: Service Date/Time: November 18:52 - CONCLUSION: Left lung/hemithorax remain essentially completely opacified and with volume loss. Patchy consolidation on the right, mainly at the base. Masslike area right mid lung potentially some loculated pleural fluid. Paul Sinha MD Assessment and Plan Assessment and Plan 71 year-old male with findings of 7 x 6 cm bladder mass on recent renal bladder ultrasounds with squamous cell carcinoma the lung Patient will require cystoscopy with TURBT but will need to be medically stabilized and off anticoagulation medication prior to proceeding with TURBT. Also of question if patient requires general anesthesia will he be able to get off the vent postoperatively. Spinal anesthesia would be an option in this case. These issues need to be addressed at length prior to proceeding with TURBT. We'll consult with medical team members prior to proceeding with TURBT. We'll repeat renal bladder ultrasound in the meantime. Thank you for the consult and for allowing me to participate in the care of this patient. Javier Connor DO Dec 09, 2016 12:46
--- NOTE | 2016-12-09 17:11 | RADRPT ---
EXAM DATE/TIME: 12/09/2016 15:16 [place] COMPARISON: No previous studies available for comparison. INDICATIONS : Bladder mass on prior [place] outpatient ultrasound. MEDICAL HISTORY : Hypercholesterolemia. Hypertension. Dyspnea. Enlarged prostate. SURGICAL HISTORY : Tonsillectomy. ENCOUNTER: Initial ACUITY: 1 day PAIN SCORE: 0/10 LOCATION: Bilateral flank MEASUREMENTS: RIGHT KIDNEY: 11.6 x 5.3 x5.7 cm LEFT KIDNEY: 11.6 x 4.5 x 5.2 cm FINDINGS: RIGHT KIDNEY: Renal cortex is normal in thickness and echotexture. No hydronephrosis, stone, or mass. LEFT KIDNEY: Renal cortex is normal in thickness and echotexture. No hydronephrosis, stone, or mass. BLADDER: Partially decompressed with a Lipscomb catheter. However, there is a prominent 8.4 x 5.7 x 6.4 cm mass l esion at the base of the bladder. CONCLUSION: 1. 8.4 cm mass lesion at the base of the bladder. This may represent an intrinsic mass of the bladder versus a prominent anterior lobe of the prostate. 2. Otherwise, urinary bladder is partially decompressed with a Lipscomb catheter. 3. Both kidneys are sonographically normal. Roby Horta MD on December 09, 2016 at 17:07 Board Certified Radiologist. This report was verified electronically.
[2016-12-09] MEDS: ATORVASTATIN 40 MG TAB PO SCH (20:08)
[2016-12-09] MEDS: DOXAZOSIN MESYLATE 4 MG TAB PO SCH (20:09)
[2016-12-10] VITALS: BP 135/63; PULSE 94; RESP 17; TEMP 98.6; O2SAT 91
[2016-12-10 04:00] VITALS: BP 135/61; PULSE 95; RESP 19; TEMP 98.4; O2SAT 91
[2016-12-10] MEDS: DOCUSATE SODIUM 100 MG CAP PO SCH ×2 (04:31→17:03)
[2016-12-10 05:25] LABS: AUTOMATED NEUTROPHIL # 5.9 TH/MM3 (1.8-7.7); BASOPHIL % 0.4 % (0.0-2.0); EOSINOPHIL # 1.3 TH/MM3 (0-0.4); EOSINOPHIL % 14.9 % (0.0-4.0); HEMATOCRIT 22.1 % (39.0-51.0); HEMO FLAGS DIFF FINAL; LYMPH % 5.9 % (9.0-44.0); LYMPHOCYTE # 0.5 TH/MM3 (1.0-4.8); MEAN CELL VOLUME 97.3 FL (80.0-100.0); MEAN CORPUSCULAR HEMOGLOBIN 34.8 PG (27.0-34.0); MEAN CORPUSCULAR HGB CONC 35.8 % (32.0-36.0); MONO % 11.4 % (0.0-8.0); NEUT % 67.4 % (16.0-70.0); PLATELET COUNT 339 TH/MM3 (150-450); RED BLOOD COUNT 2.28 MIL/MM3 (4.50-5.90); RED CELL DISTRIBUTION WIDTH 15.4 % (11.6-17.2); WHITE BLOOD COUNT 8.7 TH/MM3 (4.0-11.0)
[2016-12-10 05:45] LABS: BICARBONATE 27.8 MEQ/L (21.0-32.0); POTASSIUM 3.6 MEQ/L (3.5-5.1)
[2016-12-10 05:59] LABS: CALCIUM-PROTEIN CORRECTED 8.1 MG/DL (8.5-10.1)
[2016-12-10 08:00] VITALS: BP 134/64; PULSE 92; RESP 16; TEMP 97.5; O2SAT 91
[2016-12-10] MEDS: PHENYTOIN SUSP 100 MG/4 ML CUP PO SCH ×2 (08:01→21:36)
[2016-12-10] MEDS: FERROUS SULFATE 300 MG /5ML UDC PO SCH (08:03)
[2016-12-10] MEDS: SODIUM CHLORIDE 0.9% FLUSH 5 ML FLUSH FLUSH SCH ×2 (08:04→21:35)
[2016-12-10] MEDS: HEPARIN SODIUM - SQ 10,000 UNITS/ML VIAL SQ SCH ×2 (08:04→21:36)
[2016-12-10] MEDS: MEGESTROL ACETATE SUSP 400 MG/10 ML CUP PO SCH (08:04)
[2016-12-10] MEDS: FUROSEMIDE 40 MG/5 ML UNIT DOSE CUP TUBE SCH (08:04)
[2016-12-10] MEDS: IRON SUCROSE INJ 100 MG in SODIUM CHLORIDE 0.9% INJ 100 ML IV SCH (09:00)
--- NOTE | 2016-12-10 09:00 | HHI.NPPN ---
Subjective General Problems: Anemia, Edema Renal Failure: Acute History of Present Illness 71 y/o male pt. Transferred to [facility] from [facility] with renal failure from AT on HD Interval History Seen during dialysis. Remains non oliguric, tolerating oral diet. Some edema. He is more alert today. (Marina Mcgovern) Review of Systems General Constitutional: Fatigue (Marina Mcgovern) Objective Data Data 12/09/16 12/10/16 19:00 07:00 Intake Total 100 ml 1008 ml Output Total 500 ml 500 ml Balance -400 ml 508 ml Intake Oral 100 ml 480 ml IV Total 0 ml Tube Feeding 528 ml Output Urine Total 500 ml 500 ml # Bowel Movements 0 2 Vital Signs Date Time Temp Pulse Resp B/P Pulse Ox O2 Delivery O2 Flow Rate FiO2 12/10/16 08:00 97.5 92 16 134/64 91 12/10/16 04:00 98.4 95 19 135/61 91 12/10/16 00:00 98.6 94 17 135/63 91 12/09/16 21:35 Nasal Cannula 3.00 12/09/16 20:00 99.5 88 19 129/61 94 12/09/16 16:00 97.4 83 16 143/51 95 12/09/16 12:00 97.7 74 16 134/62 91 12/09/16 11:15 92 Nasal Cannula 3.00 (Marina Mcgovern) -: 12/10/16 0455 12/10/16 0455 Imaging Last Impressions Renal Ultrasound 12/09/16 0000 Signed Impressions: Service Date/Time: Friday, December 09, 2016 15:16 - CONCLUSION: 1. 8.4 cm mass lesion at the base of the bladder. This may represent an intrinsic mass of the bladder versus a prominent anterior lobe of the prostate. 2. Otherwise, urinary bladder is partially decompressed with a Lipscomb catheter. 3. Both kidneys are sonographically normal. Roby Horta MD Upper Extremity Ultrasound 12/08/16 0000 Signed Impressions: Service Date/Time: Thursday, December 08, 2016 17:23 - CONCLUSION: 1. Superficial thrombosis in the right cephalic vein at the level of the mid arm. 2. The left upper extremity venous system is patent. Emerson Grissom MD Chest X-Ray 3/16/17 1700 Signed Impressions: Service Date/Time: November 18:52 - CONCLUSION: Left lung/hemithorax remain essentially completely opacified and with volume loss. Patchy consolidation on the right, mainly at the base. Masslike area right mid lung potentially some loculated pleural fluid. Paul Sinha MD Tubes & Lines: Lipscomb Tubes & Lines Comment dobhoff tube (Marina Mcgovern B. DYE HOUSE HAND) Physical Exam General Appearance: Well Developed, No Acute Distress, Comfortable (Froilan,Marina B. DYE HOUSE HAND) Eyes Eye Exam: Pupils Equal (Froilan,Marina B. DYE HOUSE HAND) Ears & Nose Ears & Nose Remarks dobhoff left nare (Froilan,Marina B. DYE HOUSE HAND) Throat Throat Exam: Oral Mucosa [place] & Moist (FroilanMarina B. DYE HOUSE HAND) Pulmonary Resp Exam: No Distress, Crackles, Rhonchi, Decreased Bases, Diminished Breath Sounds (Jg Mcgovernon B. DYE HOUSE HAND) Cardiology CV Exam: Regular, Normal Sinus Rhythm (FroilanMarina B. DYE HOUSE HAND) Gastrointestinal/Abdomen GI Exam: Soft, Non-Tender, Bowel Sounds Present, Distended (Froilan,Marina B. DYE HOUSE HAND) Integumentary Skin Exam: Warm, Dry (FroilanMarina B. DYE HOUSE HAND) Extremeties Extremities Exam: Moderate Edema, Pitting Edema Extremeties Remarks left arm edematous (FroilanMarina B. DYE HOUSE HAND) Neurologic Neuro Exam: Alert, Awake, Oriented, Speech Clear, Moving All Extremities ( Marina Mcgovern B. DYE HOUSE HAND) Psychiatric Psych Exam: Appropriate Responses (Marina Mcgovern B. DYE HOUSE HAND) Assessment/Plan Discussed Condition With: Patient Assessment Summary: TODD/Acute Renal Failure, Acute Tubular Necrosis Problem List: (1) Acute renal failure Plan: He had creatinine 0.77 in October Renal failure ATN due to PEA arrest He is on HD per TTS schedule. Seen during dialysis today on a 3K, 350 BFR, goal 3L creatinine is higher today he is non oliguric, continue lasix await renal recovery avoid nephrotoxins, no IVF required daily renal panel (2) Bronchiolar obstruction Plan: s/p stent placement, dx of squamous cell carcinoma med oncology following (3) Mass of left lung Plan: oncology has evaluated, appreciate their recommendations he is unstable for treatment at this time (4) Acute respiratory failure Plan: extubated, respiratory status is better he has dobhoff, on tube feeding and oral nutrition may need PEG if caloric intake is not sufficient speech therapy following (5) Anemia Plan: Dr. jose mitchell following transfused last week, has iron deficiency started on Venofer epogen with HD Hemoccult positive (6) Bladder mass Plan: urology following, bladder US report noted he will need cystoscopy with TURBT (Marina Mcgovern) Plan patient was seen and examined during dialysis. Frail, with muscle wasting. He has squamous cell carcinoma of the lung and bladder mass. Overall his prognosis is poor. Orders were reviewed. Discussed with lambskin trimmer. (Willian Borjas MD) Marina Mcgovern Dec 10, 2016 09:00 Willian Borjas MD Dec 10, 2016 11:51
--- NOTE | 2016-12-10 09:46 | HHI.PR ---
Subjective Remarks tolerating HD appetite lightly better Objective Vitals Vital Signs Date Time Temp Pulse Resp B/P Pulse Ox O2 Delivery O2 Flow Rate FiO2 12/10/16 08:00 97.5 92 16 134/64 91 12/10/16 04:00 98.4 95 19 135/61 91 12/10/16 00:00 98.6 94 17 135/63 91 12/09/16 21:35 Nasal Cannula 3.00 12/09/16 20:00 99.5 88 19 129/61 94 12/09/16 16:00 97.4 83 16 143/51 95 12/09/16 12:00 97.7 74 16 134/62 91 12/09/16 11:15 92 Nasal Cannula 3.00 I/O 12/09/16 12/09/16 12/09/16 12/10/16 12/10/16 12/10/16 07:00 15:00 23:00 07:00 15:00 23:00 Intake Total 751 ml 100 ml 255 ml 753 ml Output Total 250 ml 500 ml 200 ml 300 ml Balance 501 ml -400 ml 55 ml 453 ml Intake Oral 120 ml 100 ml 240 ml 240 ml IV Total 0 ml 0 ml Tube Feeding 631 ml 15 ml 513 ml Output Urine Total 250 ml 500 ml 200 ml 300 ml # Bowel Movements 1 0 1 1 Result Diagram: 12/10/16 0455 12/10/16 0455 Imaging Last Impressions Renal Ultrasound 12/09/16 0000 Signed Impressions: Service Date/Time: Friday, December 09, 2016 15:16 - CONCLUSION: 1. 8.4 cm mass lesion at the base of the bladder. This may represent an intrinsic mass of the bladder versus a prominent anterior lobe of the prostate. 2. Otherwise, urinary bladder is partially decompressed with a Lipscomb catheter. 3. Both kidneys are sonographically normal. Roby Horta MD Upper Extremity Ultrasound 12/08/16 0000 Signed Impressions: Service Date/Time: Thursday, December 08, 2016 17:23 - CONCLUSION: 1. Superficial thrombosis in the right cephalic vein at the level of the mid arm. 2. The left upper extremity venous system is patent. Emerson Grissom MD Chest X-Ray 12/05/16 1700 Signed Impressions: Service Date/Time: Thursday, December 05, 2016 18:52 - CONCLUSION: Left lung/hemithorax remain essentially completely opacified and with volume loss. Patchy consolidation on the right, mainly at the base. Masslike area right mid lung potentially some loculated pleural fluid. 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 Complicated stay with occluded stent in the left main bronchus, was intubated , extubated, [id number] sat good on 3L NC. Records reviewed ( in the pts chart ). Hematology ff BPH continue doxazosin 8 mg qhs . Bladder Mass Urology ff Respiratory failure requiring O2 supplement Duonebs as need. Patient was treated for PNA bronch sputum klebsiella + , ( treated at [facility] and finished course of abx per records). Blood cx were negative 11/07/16 ECHO 55-60% Iron deficiency Anemia- low Iron stores Hematology ff- IV Iron FOBT positive, ESRD requiring HD. US kidney at [facility] rev findings consistent with chronic kidney disease. Tunnelled dialysis catheter was placed 12/04/16 ( right) at [facility]. 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 Consult Speech therapy and also certified wellness program coordinator. GI ff plan for possible PEG HTN- Continue atenolol 25 mg po bid Seizure- Continue Dilantin. Seizure precautions. Stable. DVT ppx with SCD/TEDs Rossi count ongoing - Per GI , might be a candidate for PEG tube Megace for appetite Consult case management - will need SNF Consult PT/OT/ ST daily- deconditioning Sarah Kirkpatrick MD Dec 10, 2016 09:46
[2016-12-10] MEDS: HEPARIN SODIUM - IV 10,000 UNITS/10 ML VIAL PRN (11:21)
[2016-12-10] MEDS: EPOETIN ALFA 10,000 UNITS/ML VIAL IV PRN (11:21)
[2016-12-10] MEDS: GENTAMICIN SULFATE (DIALYSIS USE ONLY) 20 MG/2 ML VIAL IV PRN (11:21)
--- NOTE | 2016-12-10 13:29 | HHI.GIFU ---
Subjective Remarks Resting in bed. Poor appetite. He is okay with having egd with peg tube placement, but does not feel he could tolerate the bowel prep for colonoscopy at this time. (Audrey Vanegas) Objective Vitals I&O Vital Signs Date Time Temp Pulse Resp B/P Pulse Ox O2 Delivery O2 Flow Rate FiO2 12/10/16 09:15 Nasal Cannula 12/10/16 08:00 97.5 92 16 134/64 91 12/10/16 04:00 98.4 95 19 135/61 91 12/10/16 00:00 98.6 94 17 135/63 91 12/09/16 21:35 Nasal Cannula 3.00 12/09/16 20:00 99.5 88 19 129/61 94 12/09/16 16:00 97.4 83 16 143/51 95 I/O 12/09/16 12/09/16 12/09/16 12/10/16 12/10/16 12/10/16 07:00 15:00 23:00 07:00 15:00 23:00 Intake Total 751 ml 100 ml 255 ml 753 ml Output Total 250 ml 500 ml 200 ml 300 ml Balance 501 ml -400 ml 55 ml 453 ml Intake Oral 120 ml 100 ml 240 ml 240 ml IV Total 0 ml 0 ml Tube Feeding 631 ml 15 ml 513 ml Output Urine Total 250 ml 500 ml 200 ml 300 ml # Bowel Movements 1 0 1 1 Laboratory Laboratory Tests Test 12/10/16 04:55 White Blood Count 8.7 Red Blood Count 2.28 Hemoglobin 7.9 Hematocrit 22.1 Mean Corpuscular Volume 97.3 Mean Corpuscular Hemoglobin 34.8 Mean Corpuscular Hemoglobin 35.8 Concent Red Cell Distribution Width 15.4 Platelet Count 339 Mean Platelet Volume 7.0 Neutrophils (%) (Auto) 67.4 Lymphocytes (%) (Auto) 5.9 Monocytes (%) (Auto) 11.4 Eosinophils (%) (Auto) 14.9 Basophils (%) (Auto) 0.4 Neutrophils # (Auto) 5.9 Lymphocytes # (Auto) 0.5 Monocytes # (Auto) 1.0 Eosinophils # (Auto) 1.3 Basophils # (Auto) 0.0 CBC Comment DIFF FINAL Differential Comment Sodium Level 141 Potassium Level 3.6 Chloride Level 103 Carbon Dioxide Level 27.8 Anion Gap 10 Blood Urea Nitrogen 70 Creatinine 5.25 Estimat Glomerular Filtration 11 Rate Random Glucose 121 Calcium Level 7.4 Protein Corrected Calcium 8.1 Phosphorus Level 4.4 Total Protein 5.8 Albumin 1.6 Date/Time Procedure Status Source Growth 12/06/16 13:00 Stool Occult Blood ([place]) - Final Complete Stool Stool HEMOCCULT POSITIVE 12/05/16 18:36 Aerobic Blood Culture - Final Complete Blood Peripheral NO GROWTH IN 5 DAYS 12/05/16 18:36 Anaerobic Blood Culture - Final Complete Blood Peripheral QNS - SEE AEROBE REPORT Imaging Last Impressions Renal Ultrasound 12/09/16 0000 Signed Impressions: Service Date/Time: Friday, December 09, 2016 15:16 - CONCLUSION: 1. 8.4 cm mass lesion at the base of the bladder. This may represent an intrinsic mass of the bladder versus a prominent anterior lobe of the prostate. 2. Otherwise, urinary bladder is partially decompressed with a Lipscomb catheter. 3. Both kidneys are sonographically normal. Roby Horta MD Upper Extremity Ultrasound 12/08/16 0000 Signed Impressions: Service Date/Time: Thursday, December 08, 2016 17:23 - CONCLUSION: 1. Superficial thrombosis in the right cephalic vein at the level of the mid arm. 2. The left upper extremity venous system is patent. Emerson Grissom MD Chest X-Ray 12/05/16 1700 Signed Impressions: Service Date/Time: November 18:52 - CONCLUSION: Left lung/hemithorax remain essentially completely opacified and with volume loss. Patchy consolidation on the right, mainly at the base. Masslike area right mid lung potentially some loculated pleural fluid. Paul Sinha MD Physical Exam HEENT: Normocephalic; atraumatic; no jaundice. CHEST: Resp. shallow/even, course breath sounds -CARDIAC: mildly tachycardic ABDOMEN: Soft, nondistended, nontender; bowel sounds are present in all four quadrants. EXTREMITIES: Edema in both UE and LE STOPPER SETTER: No focal deficits; lethargic and oriented times three. (Audrey Vanegas) Assessment and Plan Plan ASSESSMENT: - Iron Deficiency Anemia with Hemoccult positive stool. HH on arrival was 6.6/ 20.0. He was given 2 units of PRBC. He is not having any obvious GI bleeding at this time. Other than decreased appetite, he denies any GI symptoms. He last had an EGD and colonoscopy was about 4-5 years ago at the [facility] and reports that he had a colon polyp removed at that time. Iron 25, TIBC 197, TIBC 197, Iron saturation 12.7. Getting iron transfusions and PPI. Plan was for EGD with PEG tube placement and colonoscopy once calorie count completed, but patient is extremely weak and does not feel that he could take the bowel prep for colonoscopy at this time. He is okay with egd with peg. Will schedule this for tomorrow. - Protein calorie malnutrition. Patient currently has Dobbhoff in place. He denies any actual dysphagia or odynophagia. Speech therapy is following and has recommended a mechanical soft diet with nectar thickened liquids. The dietitian is also following and has updated their recommendations to Nepro at 65 cc an hour 12 hours from 6 PM to 6 AM, renal diet, Nepro BID and to feed patient. This has been changed. We will place feeding tube tomorrow, patient agreeable. 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 Patient was hospitalized at this facility last month after developing shortness of breath and significant hemoptysis. He required mechanical ventilation. He was evaluated by CVT and then transferred to the [facility] in [place]. He was evaluated by Interventional pulmonology and underwent a bronchoscopy with debulking of a large mass involving the left mainstem bronchus. The left main bronchus was stented. He is being followed by oncology. He has not yet been staged. According to oncology, he will need to be stronger prior to moving forward with management of his lung cancer. - Acute renal failure, HD per renal. - Severe deconditioning. Pt has had a prolonged hospitalization, complicated by PEA arrest on 11/08/16. ST/OT/PT PLAN: - Plan for egd with peg tube placement - Obtain consents - Renal diet Mechanical soft with nectar thickened liquids with Nepro BID - Nepro at 65 cc an hour 12 hours, 6 PM to 6 AM- hold one hour before and after dilantin. - NPO after MN - Hold heparin after Mn - Ancef home connect lpn - Continue speech therapy - Fur Blowing Machine Attendant following - PPI - Monitor meal percentages - Monitor H&H - Transfuse as necessary - Supportive care - Will hold on colonoscopy until patient stronger and able to take bowel prep - Further recommendations to follow as the case develops - Pt seen and examined by Dr. Erwin and myself and this note is written on his behalf (Audrey Vanegas) Physician Comments seen, examined agree with above (Silvia Erwin MD) Audrey Vanegas Dec 10, 2016 13:29 Silvia Erwin MD Dec 10, 2016 16:48
--- NOTE | 2016-12-10 15:55 | HHI.PR ---
Subjective Patient symptoms today Pt resting comfortably. R/B sono results noted. Bladder mass vs prostatic enlargement into bladder. Objective Vital Signs Vital Signs Date Time Temp Pulse Resp B/P Pulse Ox O2 Delivery O2 Flow Rate FiO2 12/10/16 09:15 Nasal Cannula 12/10/16 08:00 97.5 92 16 134/64 91 12/10/16 04:00 98.4 95 19 135/61 91 12/10/16 00:00 98.6 94 17 135/63 91 12/09/16 21:35 Nasal Cannula 3.00 12/09/16 20:00 99.5 88 19 129/61 94 12/09/16 16:00 97.4 83 16 143/51 95 Intake & Output 12/10/16 12/10/16 07:00 19:00 Intake Total 1008 ml 0 ml Output Total 500 ml Balance 508 ml 0 ml Intake Oral 480 ml IV Total 0 ml 0 ml Tube Feeding 528 ml Output Urine Total 500 ml # Bowel Movements 2 Result Diagram: 12/10/16 0455 12/10/16 0455 Objective Remarks Abd: soft,nt,nd Lipscomb with clear urine Medications and IVs Current Medications Medications (Trade) Dose Ordered Sig/Luis Carlos Route Start Time Stop Time Status Last Admin (NS Flush) 2 ml UNSCH PRN FLUSH 12/05/16 17:00 (NS Flush) 2 ml BID FLUSH 12/05/16 21:00 12/09/16 20:09 (Zofran Inj) 4 mg Q6H PRN IVP 12/05/16 18:00 (Dulcolax Supp) 10 mg DAILY PRN IA 12/05/16 18:00 (Colace) 100 mg Q12H PO 12/05/16 18:00 12/07/16 05:58 (Narcan Inj) 0.4 mg UNSCH PRN IV 12/05/16 17:00 (Vasotec Inj) 2.5 mg Q6H PRN IV PUSH 12/05/16 18:00 12/05/16 18:35 (Ferrous Sulfate Liq) 300 mg DAILY PO 12/06/16 09:00 12/09/16 10:25 (Cardura) 8 mg HS PO 12/05/16 21:00 12/09/16 20:09 (Lipitor) 40 mg HS PO 12/05/16 21:00 12/09/16 20:08 (Lasix Liq) 40 mg DAILY TUBE 12/06/16 09:00 12/09/16 10:25 (Jacinda-Colace) 2 tab BID PRN PO 12/05/16 19:45 (Lactulose Liq) 30 ml TID PRN PO 12/05/16 19:45 Magnesium Hydroxide 30 ml 30 ml Q6H PRN PO 12/05/16 19:45 (NS 1000 ml Inj) 1,000 ml @ 0 mls/hr Q0M PRN IV 12/06/16 12:11 Heparin Sodium (Porcine) 8000 units 8,000 units UNSCH PRN IVF 12/06/16 12:15 Sodium Chloride 1,000 ml @ 200 mls/hr Q5H PRN IV 12/06/16 12:11 (NS 1000 ml Inj) 1,000 ml @ 0 mls/hr Q0M PRN IV 12/06/16 12:11 (Mannitol Inj) 12.5 gm UNSCH PRN IV 12/06/16 12:15 (Albumin 25% Inj) 25 gm UNSCH PRN IV 12/06/16 12:15 (NS Flush) 5 ml UNSCH PRN IVF 12/06/16 12:15 (Heparin Inj) UNSCH PRN .XX 12/06/16 12:15 12/10/16 11:21 (Gentamicin (Dialysis) Inj) 20 mg UNSCH PRN IV 12/06/16 12:15 12/10/16 11:21 (Zofran Inj) 4 mg UNSCH PRN IV 12/06/16 12:15 (Tylenol) 650 mg UNSCH PRN PO 12/06/16 12:15 12/06/16 20:15 (Benadryl) 25 mg UNSCH PRN PO 12/06/16 12:15 (Nitrostat Sl) 0.4 mg UNSCH PRN SL 12/06/16 12:15 (Catapres) 0.1 mg UNSCH PRN PO 12/06/16 12:15 (Epogen Inj) 10,000 units UNSCH PRN IV 12/06/16 12:15 12/10/16 11:21 (Gelfoam 12 Mm/7 Mm Top) 1 foam UNSCH PRN TOP 12/06/16 12:15 (Megace Liq) 400 mg DAILY PO 12/08/16 09:00 12/09/16 10:25 (Heparin Inj) 5,000 units Q12HR SQ 12/08/16 21:00 Future Hold 12/09/16 20:08 Phenytoin 300 mg 300 mg Q12HR PO 12/08/16 21:00 12/10/16 08:01 (Venofer Inj/NS Inj) 105 ml @ 105 mls/hr DAILY IV 12/09/16 09:00 12/11/16 09:59 12/09/16 10:24 Assessment and Plan Assessment and Plan 71 year-old male with findings of 7 x 6 cm bladder mass on recent renal bladder ultrasounds with squamous cell carcinoma the lung Patient will require cystoscopy with TURBT but will need to be medically stabilized and off anticoagulation medication prior to proceeding with TURBT. Also of question if patient requires general anesthesia will he be able to get off the vent postoperatively. Spinal anesthesia would be an option in this case. These issues need to be addressed at length prior to proceeding with TURBT. We'll consult with medical team members prior to proceeding with TURBT. We'll repeat renal bladder ultrasound in the meantime. Thank you for the consult and for allowing me to participate in the care of this patient. 12/10 71 year-old male with findings of bladder mass vs prostatic enlargement on recent renal bladder ultrasound with squamous cell carcinoma the lung Possible Cysto/TURBT in the future once pt is stronger Will need to hold SQ heparin 24 hours prior to surgery Javier Connor DO Dec 10, 2016 15:55
[2016-12-10 16:00] VITALS: BP 134/63; PULSE 96; RESP 16; TEMP 95.6; O2SAT 96
[2016-12-10 20:00] VITALS: BP 115/67; PULSE 100; PULSE 97; RESP 19; TEMP 100.2; O2SAT 97
[2016-12-10] MEDS: ATORVASTATIN 40 MG TAB PO SCH (21:35)
[2016-12-10] MEDS: DOXAZOSIN MESYLATE 4 MG TAB PO SCH (21:35)
[2016-12-11] VITALS (9 sets, daily range): BP systolic 119–135; BP diastolic 60–64; PULSE 82–99; RESP 17–24; TEMP 96.9–99.9; O2SAT 93–98
[2016-12-11] MEDS: DOCUSATE SODIUM 100 MG CAP PO SCH ×2 (01:07→16:37)
[2016-12-11 04:30] LABS: AUTOMATED NEUTROPHIL # 5.9 TH/MM3 (1.8-7.7); BASOPHIL % 0.3 % (0.0-2.0); EOSINOPHIL # 1.4 TH/MM3 (0-0.4); EOSINOPHIL % 15.3 % (0.0-4.0); HEMATOCRIT 24.2 % (39.0-51.0); HEMO FLAGS DIFF FINAL; LYMPH % 7.7 % (9.0-44.0); LYMPHOCYTE # 0.7 TH/MM3 (1.0-4.8); MEAN CELL VOLUME 92.3 FL (80.0-100.0); MEAN CORPUSCULAR HEMOGLOBIN 30.9 PG (27.0-34.0); MEAN CORPUSCULAR HGB CONC 33.5 % (32.0-36.0); MONO % 12.5 % (0.0-8.0); NEUT % 64.2 % (16.0-70.0); PLATELET COUNT 373 TH/MM3 (150-450); RED BLOOD COUNT 2.62 MIL/MM3 (4.50-5.90); RED CELL DISTRIBUTION WIDTH 15.7 % (11.6-17.2); WHITE BLOOD COUNT 9.2 TH/MM3 (4.0-11.0)
[2016-12-11 04:55] LABS: BICARBONATE 31.9 MEQ/L (21.0-32.0); POTASSIUM 3.6 MEQ/L (3.5-5.1)
[2016-12-11] MEDS: MEGESTROL ACETATE SUSP 400 MG/10 ML CUP PO SCH (08:03)
[2016-12-11] MEDS: PHENYTOIN SUSP 100 MG/4 ML CUP PO SCH ×2 (08:03→22:54)
[2016-12-11] MEDS: FERROUS SULFATE 300 MG /5ML UDC PO SCH (08:04)
[2016-12-11] MEDS: SODIUM CHLORIDE 0.9% FLUSH 5 ML FLUSH FLUSH SCH ×2 (08:04→21:00)
[2016-12-11] MEDS: FUROSEMIDE 40 MG/5 ML UNIT DOSE CUP TUBE SCH (08:04)
--- NOTE | 2016-12-11 08:17 | HHI.PR ---
Subjective Patient symptoms today Pt seen and examined. Feels ok. Urine clear Objective Vital Signs Vital Signs Date Time Temp Pulse Resp B/P Pulse Ox O2 Delivery O2 Flow Rate FiO2 12/11/16 08:00 96.9 97 17 133/61 93 12/11/16 04:00 99.9 99 18 135/62 95 12/11/16 00:00 99.3 95 19 123/60 97 12/10/16 20:00 97 12/10/16 20:00 100.2 100 19 115/67 97 12/10/16 16:00 95.6 96 16 134/63 96 12/10/16 09:15 Nasal Cannula Intake & Output 12/11/16 12/11/16 07:00 19:00 Intake Total 713 ml Output Total 350 ml Balance 363 ml Intake Oral 0 ml IV Total 0 ml Tube Feeding 713 ml Output Urine Total 350 ml Result Diagram: 12/11/1632412/11/16324 Objective Remarks Abd: soft,nt,nd Lipscomb with clear urine 12/11 Abd: soft,nt,nd Lipscomb with clear urine Medications and IVs Current Medications Medications (Trade) Dose Ordered Sig/Luis Carlos Route Start Time Stop Time Status Last Admin (NS Flush) 2 ml UNSCH PRN FLUSH 12/05/16 17:00 (NS Flush) 2 ml BID FLUSH 12/05/16 21:00 12/11/16 08:04 (Zofran Inj) 4 mg Q6H PRN IVP 12/05/16 18:00 (Dulcolax Supp) 10 mg DAILY PRN OR 12/05/16 18:00 (Colace) 100 mg Q12H PO 12/05/16 18:00 12/10/16 17:03 (Narcan Inj) 0.4 mg UNSCH PRN IV 12/05/16 17:00 (Vasotec Inj) 2.5 mg Q6H PRN IV PUSH 12/05/16 18:00 12/05/16 18:35 (Ferrous Sulfate Liq) 300 mg DAILY PO 12/06/16 09:00 12/11/16 08:04 (Cardura) 8 mg HS PO 12/05/16 21:00 12/10/16 21:35 (Lipitor) 40 mg HS PO 12/05/16 21:00 12/10/16 21:35 (Lasix Liq) 40 mg DAILY TUBE 12/06/16 09:00 12/11/16 08:04 (Jaicnda-Colace) 2 tab BID PRN PO 12/05/16 19:45 (Lactulose Liq) 30 ml TID PRN PO 12/05/16 19:45 Magnesium Hydroxide 30 ml 30 ml Q6H PRN PO 12/05/16 19:45 (NS 1000 ml Inj) 1,000 ml @ 0 mls/hr Q0M PRN IV 12/06/16 12:11 Heparin Sodium (Porcine) 8000 units 8,000 units UNSCH PRN IVF 12/06/16 12:15 Sodium Chloride 1,000 ml @ 200 mls/hr Q5H PRN IV 12/06/16 12:11 (NS 1000 ml Inj) 1,000 ml @ 0 mls/hr Q0M PRN IV 12/06/16 12:11 (Mannitol Inj) 12.5 gm UNSCH PRN IV 12/06/16 12:15 (Albumin 25% Inj) 25 gm UNSCH PRN IV 12/06/16 12:15 (NS Flush) 5 ml UNSCH PRN IVF 12/06/16 12:15 (Heparin Inj) UNSCH PRN .XX 12/06/16 12:15 12/10/16 11:21 (Gentamicin (Dialysis) Inj) 20 mg UNSCH PRN IV 12/06/16 12:15 12/10/16 11:21 (Zofran Inj) 4 mg UNSCH PRN IV 12/06/16 12:15 (Tylenol) 650 mg UNSCH PRN PO 12/06/16 12:15 12/06/16 20:15 (Benadryl) 25 mg UNSCH PRN PO 12/06/16 12:15 (Nitrostat Sl) 0.4 mg UNSCH PRN SL 12/06/16 12:15 (Catapres) 0.1 mg UNSCH PRN PO 12/06/16 12:15 (Epogen Inj) 10,000 units UNSCH PRN IV 12/06/16 12:15 12/10/16 11:21 (Gelfoam 12 Mm/7 Mm Top) 1 foam UNSCH PRN TOP 12/06/16 12:15 (Megace Liq) 400 mg DAILY PO 12/08/16 09:00 12/11/16 08:03 (Heparin Inj) 5,000 units Q12HR SQ 12/08/16 21:00 Hold 12/10/16 21:36 Phenytoin 300 mg 300 mg Q12HR PO 12/08/16 21:00 12/11/16 08:03 (Venofer Inj/NS Inj) 105 ml @ 105 mls/hr DAILY IV 12/09/16 09:00 12/11/16 09:59 12/09/16 10:24 Assessment and Plan Assessment and Plan 71 year-old male with findings of 7 x 6 cm bladder mass on recent renal bladder ultrasounds with squamous cell carcinoma the lung Patient will require cystoscopy with TURBT but will need to be medically stabilized and off anticoagulation medication prior to proceeding with TURBT. Also of question if patient requires general anesthesia will he be able to get off the vent postoperatively. Spinal anesthesia would be an option in this case. These issues need to be addressed at length prior to proceeding with TURBT. We'll consult with medical team members prior to proceeding with TURBT. We'll repeat renal bladder ultrasound in the meantime. Thank you for the consult and for allowing me to participate in the care of this patient. 12/10 71 year-old male with findings of bladder mass vs prostatic enlargement on recent renal bladder ultrasound with squamous cell carcinoma the lung Possible Cysto/TURBT in the future once pt is stronger Will need to hold SQ heparin 24 hours prior to surgery 12/11 71 year-old male with findings of bladder mass vs prostatic enlargement on recent renal bladder ultrasound Possible Cysto/TURBT in the future once pt is stronger Javier Connor DO Dec 11, 2016 08:16
[2016-12-11 08:54] LABS: BACTERIA, URINE FEW /hpf; BLOOD, URINE MOD (NEG); GLUCOSE,URINE NEG (NEG); KETONE, URINE NEG (NEG); NITRITE,URINE NEG (NEG); SQUAMOUS EPITHELIAL CELL URINE <1 /hpf (0-5); URINE COLOR YELLOW (YELLW/STRAW)
[2016-12-11 08:55] LABS: COMMENT (UR) CULTURE INDICATED; CULTURE IF INDICATED CULTURE INDICATED
[2016-12-11] MEDS ORDERED: ceFAZolin INJ 1,000 MG VIAL IV ONE (10:37)
[2016-12-11] MEDS ORDERED: PROPOFOL 200 MG/20 ML AMP IV ONE (10:40)
[2016-12-11] MEDS ORDERED: PHENYLEPH/NS 1000 MCG/10 ML SYR IV ONE (10:45)
--- NOTE | 2016-12-11 11:45 | HHI.NPPN ---
Subjective General Problems: Anemia, Edema Renal Failure: Acute History of Present Illness 71 y/o male pt. Transferred to [facility] from [facility] with renal failure from AT on HD Interval History He had PEG placed today. He was dialyzed yesterday. He is groggy. (Marina Mcgovern) Review of Systems General Constitutional: Fatigue (Marina Mcgovern) Objective Data Data 12/10/16 12/11/16 19:00 07:00 Intake Total 100 ml 713 ml Output Total 400 ml 350 ml Balance -300 ml 363 ml Intake Oral 100 ml 0 ml IV Total 0 ml 0 ml Tube Feeding 713 ml Output Urine Total 400 ml 350 ml # Bowel Movements 0 Vital Signs Date Time Temp Pulse Resp B/P Pulse Ox O2 Delivery O2 Flow Rate FiO2 12/11/16 11:15 92 16 109/58 98 12/11/16 11:05 93 16 108/59 97 12/11/16 10:55 99.2 95 16 108/59 96 12/11/16 09:54 98.9 97 17 133/62 95 12/11/16 08:00 96.9 97 17 133/61 93 12/11/16 04:00 99.9 99 18 135/62 95 12/11/16 00:00 99.3 95 19 123/60 97 12/10/16 20:00 97 12/10/16 20:00 100.2 100 19 115/67 97 12/10/16 16:00 95.6 96 16 134/63 96 (Marina Mcgovern) -: 12/11/16 0325 12/11/16 0325 Microbiology 12/11/16 Urine Culture, Received Pending Imaging Last Impressions Renal Ultrasound 12/09/16 0000 Signed Impressions: Service Date/Time: Friday, December 09, 2016 15:16 - CONCLUSION: 1. 8.4 cm mass lesion at the base of the bladder. This may represent an intrinsic mass of the bladder versus a prominent anterior lobe of the prostate. 2. Otherwise, urinary bladder is partially decompressed with a Miranda catheter. 3. Both kidneys are sonographically normal. Roby Horta MD Upper Extremity Ultrasound 12/08/16 0000 Signed Impressions: Service Date/Time: Thursday, December 08, 2016 17:23 - CONCLUSION: 1. Superficial thrombosis in the right cephalic vein at the level of the mid arm. 2. The left upper extremity venous system is patent. Emerson Grissom MD Chest X-Ray 12/05/16 1700 Signed Impressions: Service Date/Time: November 18:52 - CONCLUSION: Left lung/hemithorax remain essentially completely opacified and with volume loss. Patchy consolidation on the right, mainly at the base. Masslike area right mid lung potentially some loculated pleural fluid. Paul Sinha MD Tubes & Lines: Miranda Tubes & Lines Comment PEG, dobhoff (Froilan,Marina B. JOINT SETTER) Physical Exam General Appearance: Well Developed, No Acute Distress, Comfortable (Froilan,Marina B. JOINT SETTER) Eyes Eye Exam: Pupils Equal (Froilan,Marina B. JOINT SETTER) Ears & Nose Ears & Nose Remarks dobhoff left nare (Froilan,Marina B. JOINT SETTER) Throat Throat Exam: Oral Mucosa [place] & Moist (FroilanMarina B. JOINT SETTER) Pulmonary Resp Exam: No Distress, Crackles, Rhonchi, Decreased Bases, Diminished Breath Sounds (Froilan,Marina B. JOINT SETTER) Cardiology CV Exam: Regular, Normal Sinus Rhythm (FroilanMarina B. JOINT SETTER) Gastrointestinal/Abdomen GI Exam: Soft, Non-Tender, Bowel Sounds Present, Distended (Froilan,Marina B. JOINT SETTER) Integumentary Skin Exam: Warm, Dry (Froilan,Marina B. JOINT SETTER) Extremeties Extremities Exam: Moderate Edema, Pitting Edema Extremeties Remarks left arm edematous (FroilanMarina B. JOINT SETTER) Neurologic Neuro Exam: Alert, Awake, Oriented, Speech Clear, Moving All Extremities ( FroilanMarina B. JOINT SETTER) Psychiatric Psych Exam: Appropriate Responses (FroilanMarina B. JOINT SETTER) Assessment/Plan Discussed Condition With: Patient Assessment Summary: TODD/Acute Renal Failure, Acute Tubular Necrosis Problem List: (1) Acute renal failure Plan: He had creatinine 0.77 in October Renal failure ATN due to PEA arrest He is on HD per TTS schedule. 3L UF yesterday he is non oliguric, continue lasix follow renal function daily, await renal recovery avoid nephrotoxins, no IVF required has miranda in place (2) Bronchiolar obstruction Plan: s/p stent placement, dx of squamous cell carcinoma med oncology following (3) Mass of left lung Plan: oncology has evaluated, appreciate their recommendations he is unstable for treatment at this time (4) Acute respiratory failure Plan: extubated, respiratory status is better on tube feeding and oral nutrition, caloric intake not sufficiency s/p PEG placement speech therapy following (5) Anemia Plan: Dr. jose mitchell following transfused last week, has iron deficiency started on Venofer epogen with HD Hemoccult positive , cannot tolerate bowel prep for colonoscopy (6) Bladder mass Plan: urology following, bladder US report noted he will need cystoscopy with TURBT (Marina Mcgovern) Plan patient was seen and examined. To have PEG tube placement. Watch for renal recovery, urine output. Dialysis three times/week. (Willian Borjas MD) Mairna Mcgovern Dec 11, 2016 11:45 Willian Borjas MD Dec 12, 2016 08:02
--- NOTE | 2016-12-11 14:04 | HHI.PR ---
Subjective Remarks back from EGD-tolerated procedure well, hungry complains of left UE increase swelling- heavy Objective Vitals Vital Signs Date Time Temp Pulse Resp B/P Pulse Ox O2 Delivery O2 Flow Rate FiO2 12/11/16 12:00 97.9 84 18 131/61 98 12/11/16 11:15 92 16 109/58 98 12/11/16 11:05 93 16 108/59 97 12/11/16 10:55 99.2 95 16 108/59 96 12/11/16 09:54 98.9 97 17 133/62 95 12/11/16 08:00 96.9 97 17 133/61 93 12/11/16 04:00 99.9 99 18 135/62 95 12/11/16 00:00 99.3 95 19 123/60 97 12/10/16 20:00 97 12/10/16 20:00 100.2 100 19 115/67 97 12/10/16 16:00 95.6 96 16 134/63 96 I/O 12/10/16 12/10/16 12/10/16 12/11/16 12/11/16 12/11/16 07:00 15:00 23:00 07:00 15:00 23:00 Intake Total 753 ml 100 ml 713 ml 0 ml 100 ml Output Total 300 ml 400 ml 200 ml 150 ml Balance 453 ml -300 ml 513 ml -150 ml 100 ml Intake Oral 240 ml 100 ml 0 ml 0 ml IV Total 0 ml 0 ml 0 ml 0 ml Tube Feeding 513 ml 713 ml Other 100 ml Output Urine Total 300 ml 400 ml 200 ml 150 ml # Bowel Movements 1 0 Result Diagram: 12/11/16 0325 12/11/16 0325 Other Results Last Impressions Renal Ultrasound 12/09/16 0000 Signed Impressions: Service Date/Time: Friday, December 09, 2016 15:16 - CONCLUSION: 1. 8.4 cm mass lesion at the base of the bladder. This may represent an intrinsic mass of the bladder versus a prominent anterior lobe of the prostate. 2. Otherwise, urinary bladder is partially decompressed with a Lipscomb catheter. 3. Both kidneys are sonographically normal. Roby Horta MD Upper Extremity Ultrasound 12/08/16 0000 Signed Impressions: Service Date/Time: Thursday, December 08, 2016 17:23 - CONCLUSION: 1. Superficial thrombosis in the right cephalic vein at the level of the mid arm. 2. The left upper extremity venous system is patent. Emerson Grissom MD Chest X-Ray 12/05/160 Signed Impressions: Service Date/Time: November 18:52 - CONCLUSION: Left lung/hemithorax remain essentially completely opacified and with volume loss. Patchy consolidation on the right, mainly at the base. Masslike area right mid lung potentially some loculated pleural fluid. Paul Sinha MD Imaging Last Impressions Renal Ultrasound 12/09/16 0000 Signed Impressions: Service Date/Time: Friday, December 09, 2016 15:16 - CONCLUSION: 1. 8.4 cm mass lesion at the base of the bladder. This may represent an intrinsic mass of the bladder versus a prominent anterior lobe of the prostate. 2. Otherwise, urinary bladder is partially decompressed with a Lipscomb catheter. 3. Both kidneys are sonographically normal. Roby Horta MD Upper Extremity Ultrasound 12/08/16 0000 Signed Impressions: Service Date/Time: Thursday, December 08, 2016 17:23 - CONCLUSION: 1. Superficial thrombosis in the right cephalic vein at the level of the mid arm. 2. The left upper extremity venous system is patent. Emerson Grissom MD Chest X-Ray 12/05/161699 Signed Impressions: Service Date/Time: November 18:52 - CONCLUSION: Left lung/hemithorax remain essentially completely opacified and with volume loss. Patchy consolidation on the right, mainly at the base. Masslike area right mid lung potentially some loculated pleural fluid. 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 Complicated stay with occluded stent in the left main bronchus, was intubated , extubated, [id number] sat good on 3L [place]. Hematology ff BPH continue doxazosin 8 mg qhs . Bladder Mass Urology ff- plan for cytoscopy when patient stronger Respiratory failure requiring O2 supplement Duonebs as need. Patient was treated for PNA bronch sputum klebsiella + , ( treated at [facility] and finished course of abx per records). Blood cx were negative 11/07/16 ECHO 55-60% Iron deficiency Anemia- low Iron stores S/P EGD- gastritis, duodenitis, esophagitis IV Iron FOBT positive, ESRD requiring HD. US kidney at [facility] rev findings consistent with chronic kidney disease. Tunnelled dialysis catheter was placed 12/04/16 ( right) at [facility]. non oliguric Nephrology ff Nutrition :Nephro TF at night. . on MegaACE needs to be stronger for future studies like cystoscopy HTN- Continue atenolol 25 mg po bid LUE swelling-/mild erythema edema/fluid - early cellulitis Increase weakness left UE get a Head CT r/o mets to the brain mets will get US- soft tissue Doppler done 2 days ago - venous system patent elevate Left UE above the heart at all times check CBC- afebrile consider starting antibiotic DC all IV access.on this arm -start Levaquin Pyuria- ff c and S start Levaquin 250 mg daily Seizure- Continue Dilantin. Seizure precautions. Stable. DVT ppx with SCD/TEDs Megace for appetite Consult case management - will need SNF Reconsult PT/OT/ daily- deconditioning Incentive spirometry Sarah Kirkpatrick MD Dec 11, 2016 14:04
--- NOTE | 2016-12-11 14:12 | GIPROC ---
[facility] [address] [facility]. [facility], [address] EGD WITH PEG PROCEDURE REPORT EXAM DATE: 12/11/2016 PATIENT NAME: Eveline Jaime MR#: [id number] BIRTHDATE: 1945 ATTENDING: Silvia Erwin MD ORDER #: [id number] SECRETARIAL STENOGRAPHER: Juan Manuel Peña and Emir Alcala STATUS: inpatient INDICATIONS: The patient is a 71 yr old male here for an EGD with PEG due to dysphagia, failure to thrive , anemia PROCEDURE PERFORMED: EGD with PEG placement EGD with biopsy MEDICATIONS: None and Per Anesthesia. TOPICAL ANESTHETIC: none CONSENT: The patient understands the risks and benefits of the procedure and understands that these risks include, but are not limited to: sedation, allergic reaction, infection, perforation and/or bleeding. Alternative means of evaluation and treatment include, among others: physical exam, x-rays, and/or surgical intervention. The patient elects to proceed with this endoscopic procedure. medical equipment was checked for proper function. Hand hygiene and appropriate measures for infection prevention was taken. After the risks, benefits and alternatives of the procedure were thoroughly explained, Informed consent was verified, confirmed and timeout was successfully executed by the treatment team. The patient was anesthetized with topical anesthesia and the [employer] [id number] endoscope was introduced through the mouth and advanced to the gastroesophageal junction. The instrument was slowly withdrawn as the mucosa was fully examined. Mild gastritis was found in the antrum. Esophagitis was found in the distal esophagus. biopsy The stomach was then inflated with air, and by a combination of transillumination and manual palpation, the site for the gastrostomy tube placement was selected and marked on the anterior abdominal wall. The skin of the anterior abdomen was surgically prepped and draped with sterile towels. Utilizing strict sterile technique, the selected site was then anesthetized with 1% xylocaine by injection into the skin and subcutaneous tissue. A 1 cm incision was made through the skin and subcutaneous tissue, and the needle/cannula assembly was then passed through the abdominal wall and through the anterior wall of the stomach, maintaining visualization with the endoscope. A snare device previously placed through the instrument channel was then opened and placed around the cannula, the needle was removed, and the insertion wire was passed through the cannula and into the stomach lumen. The snare was then loosened from the cannula, and repositioned to snare the insertion wire. The snare was then pulled up to the endoscope distal tip, and the scope was then withdrawn bringing with it the snare and insertion wire. The insertion wire was then released from the snare, and then loop-attached to the gastrostomy tube. Using the "pull technique", the G-tube was then pulled into place by traction on the insertion wire at the abdominal wall end. The G-tube insertion site was then cleansed once again, and the external bolster was placed over the tube to secure it to the abdominal wall. A sterile dressing was then applied, and the procedure terminated. a hiatal hernia The gastroscope was then slowly withdrawn and removed. gastrtis antrum-biopsy esophagitis distal esophagus-biopsy duodenum normal-biopsy ADVERSE EVENT: There were no complications. IMPRESSIONS: A hiatal hernia gastrtis antrum-biopsy esophagitis distal esophagus-biopsy s/p peg placem,ent RECOMMENDATIONS: 1. Anti-reflux regimen 2. Continue PPI 3.ok to use peg for medications only today 4.tf in am if site ok 5. colonoscopy at alter date when more stable REPEAT EXAM: EGD pending biopsy results Silvia Erwin MD eSigned: Silvia Erwin MD 12/11/2016 2:12 PM cc: PATIENT NAME: Eveline Jaime MR#: [id number]
[2016-12-11] MEDS: LEVOFLOXACIN 250 MG TAB PO SCH (16:37)
--- NOTE | 2016-12-11 20:08 | RADRPT ---
EXAM DATE/TIME: 12/11/2016 18:00 [facility] COMPARISON: No previous studies available for comparison. INDICATIONS : Left arm swelling. MEDICAL HISTORY : Hypercholesterolemia. Hypertension. Dyspnea. Enlarged prostate. SURGICAL HISTORY : Tonsillectomy. ENCOUNTER: Subsequent ACUITY: 1 day PAIN SCORE: 0/10 LOCATION: Left arm. FINDINGS: There is extensive soft tissue swelling which extends around distal upper arm to the wrist with 2 are as of fluid collections the largest one measures 1.6 cm in size. There is thrombus within superficial vein in the mid forearm area. CONCLUSION: Superficial thrombophlebitis, extensive edema and nonspecific fluid collections in the subcutaneous t issues. K. Richard Reyes MD on December 11, 2016 at 20:05 Board Certified Radiologist. This report was verified electronically.
--- NOTE | 2016-12-11 20:18 | RADRPT ---
EXAM DATE/TIME: 12/11/2016 20:00 [facility] COMPARISON: No previous studies available for comparison. INDICATIONS : Left upper extremity weakness. Lung Cancer. RADIATION DOSE: 46.44 CTDIvol (mGy) MEDICAL HISTORY : Carcinoma, lung. Cardiovascular disease Hypertension.Seizures SURGICAL HISTORY : None. ENCOUNTER: Initial ACUITY: 1 day PAIN SCALE: 0/10 LOCATION: cranial TECHNIQUE: Multiple contiguous axial images were obtained of the head. Using automated exposure control and adjustment of the mA and/or kV according to patient size, radiation dose was kept as low as reasonably achievable to obtain optimal diagnostic quality images. FINDINGS: There is no evidence for intracranial hemorrhage, mass effect, mass lesions, or edema. The visualize d bony structures appear intact. Slight degree of brain atrophy is seen. Slight periventricular whit e matter changes are seen nonspecific mostly consistent with chronic small vessel ischemic changes. There are no signs of acute infarction for technique. CONCLUSION: Slight atrophic and small vessel ischemic changes without any evidence for acute hemorrhage or mass effect. Shawn Reyes MD on December 11, 2016 at 20:16 Board Certified Radiologist. This report was verified electronically.
[2016-12-11] MEDS: DOXAZOSIN MESYLATE 4 MG TAB PO SCH (22:53)
[2016-12-11] MEDS: ATORVASTATIN 40 MG TAB PO SCH (22:54)
[2016-12-12] VITALS: BP 149/72; PULSE 91; RESP 24; TEMP 100.7; O2SAT 95
[2016-12-12] MEDS: ACETAMINOPHEN 325 MG TAB PO PRN (00:41)
[2016-12-12 04:00] VITALS: BP 140/68; PULSE 84; RESP 22; TEMP 98.7; O2SAT 95
[2016-12-12] MEDS: DOCUSATE SODIUM 100 MG CAP PO SCH ×2 (05:34→17:52)
[2016-12-12 08:00] VITALS: BP 145/67; PULSE 90; RESP 17; TEMP 97.3; O2SAT 88
--- NOTE | 2016-12-12 08:38 | HHI.NPPN ---
Subjective General Problems: Anemia, Edema Renal Failure: Acute History of Present Illness 71 y/o male pt. [place] [facility] [place] [facility] with renal failure from ATN on HD Interval History Underwent PEG tube placement. Review of Systems General Constitutional: Fatigue Objective Data Data 12/11/16 12/12/16 19:00 07:00 Intake Total 100 ml 60 ml Output Total 200 ml 450 ml Balance -100 ml -390 ml Intake Oral 0 ml 60 ml IV Total 0 ml Other 100 ml Output Urine Total 200 ml 450 ml # Bowel Movements 0 0 Vital Signs Date Time Temp Pulse Resp B/P Pulse Ox O2 Delivery O2 Flow Rate FiO2 12/12/16 08:00 97.3 90 17 145/67 88 12/12/16 04:00 98.7 84 22 140/68 95 12/12/16 00:00 100.7 91 24 149/72 95 12/11/16 22:47 82 12/11/16 20:00 97.7 86 24 119/64 97 12/11/16 17:42 95 Nasal Cannula 2.00 12/11/16 16:00 97.9 84 18 134/63 95 12/11/16 12:00 97.9 84 18 131/61 98 12/11/16 11:15 92 16 109/58 98 12/11/16 11:05 93 16 108/59 97 12/11/16 10:55 99.2 95 16 108/59 96 12/11/16 09:54 98.9 97 17 133/62 95 -: 12/11/16 0325 12/11/16 0325 Tubes & Lines: Miranda Tubes & Lines Comment PEG, dobhoff Physical Exam General Appearance: Well Developed, No Acute Distress, Comfortable Eyes Eye Exam: Pupils Equal Throat Throat Exam: Oral Mucosa Parcoal & Moist Pulmonary Resp Exam: No Distress, Crackles, Rhonchi, Decreased Bases, Diminished Breath Sounds Cardiology CV Exam: Regular, Normal Sinus Rhythm Gastrointestinal/Abdomen GI Exam: Soft, Non-Tender, Bowel Sounds Present, Distended Integumentary Skin Exam: Warm, Dry Extremeties Extremities Exam: Moderate Edema, Pitting Edema Neurologic Neuro Exam: Alert, Awake, Oriented, Speech Clear, Moving All Extremities Psychiatric Psych Exam: Appropriate Responses Assessment/Plan Discussed Condition With: Patient Assessment Summary: TODD/Acute Renal Failure, Acute Tubular Necrosis Problem List: (1) Acute renal failure Plan: He had creatinine 0.77 in October Renal failure ATN due to PEA arrest He is on HD per TTS schedule. Dialysis today. he is non oliguric, continue lasix follow renal function daily, await renal recovery avoid nephrotoxins, no IVF required has miranda in place (2) Bronchiolar obstruction Plan: s/p stent placement, dx of squamous cell carcinoma med oncology following (3) Mass of left lung Plan: oncology has evaluated, appreciate their recommendations he is unstable for treatment at this time (4) Acute respiratory failure Plan: extubated, respiratory status is better on tube feeding and oral nutrition, caloric intake not sufficiency s/p PEG placement speech therapy following (5) Anemia Plan: Has been seen by Hematology. transfused last week, has iron deficiency started on Venofer Epogen with HD Hemoccult positive , cannot tolerate bowel prep for colonoscopy (6) Bladder mass Plan: urology following, bladder US report noted he will need cystoscopy with TURBT Willian Borjas MD Dec 12, 2016 08:38
[2016-12-12] MEDS: SODIUM CHLORIDE 0.9% FLUSH 5 ML FLUSH FLUSH SCH ×2 (09:00→21:00)
[2016-12-12] MEDS: HEPARIN SODIUM - IV 10,000 UNITS/10 ML VIAL PRN (09:33)
[2016-12-12] MEDS: GENTAMICIN SULFATE (DIALYSIS USE ONLY) 20 MG/2 ML VIAL IV PRN (09:33)
[2016-12-12] MEDS: EPOETIN ALFA 10,000 UNITS/ML VIAL IV PRN (09:33)
--- NOTE | 2016-12-12 10:42 | PD.ONC.PN ---
Subjective Subjective Remarks Tmax 100.7 overnight. Patient seen in dialysis. He states he feels like he is getting stronger. He tells me his plan is to go live with his son in [place], [place]. He tells me his son has been in contact with the case repairer here and they are planning to arrange this. He states he is tolerating tube feeds. No nausea. Objective Data Date Time Temp Pulse Resp B/P Pulse Ox O2 Delivery O2 Flow Rate FiO2 12/12/16 08:00 97.3 90 17 145/67 88 12/12/16 04:00 98.7 84 22 140/68 95 12/12/16 00:00 100.7 91 24 149/72 95 12/11/16 22:47 82 12/11/16 20:00 97.7 86 24 119/64 97 12/11/16 17:42 95 Nasal Cannula 2.00 12/11/16 16:00 97.9 84 18 134/63 95 12/11/16 12:00 97.9 84 18 131/61 98 12/11/16 11:15 92 16 109/58 98 12/11/16 11:05 93 16 108/59 97 12/11/16 10:55 99.2 95 16 108/59 96 12/12/16 12/12/16 12/12/16 06:59 14:59 22:59 Intake Total 60 ml Output Total 250 ml Balance -190 ml Result Diagram: 12/11/16 0325 12/11/16 0325 Culture Results Microbiology Date/Time Procedure Status Source Growth 12/11/16 08:20 Urine Culture Received Urine Clean Catch Pending Imaging Studies Last 24 hours Impressions Upper Extremity Ultrasound 12/11/16 1506 Signed Impressions: Service Date/Time: Sunday, December 11, 2016 18:00 - CONCLUSION: Superficial thrombophlebitis, extensive edema and nonspecific fluid collections in the subcutaneous tissues. Shawn Reyes MD Administered Medications Medications (Trade) Dose Ordered Sig/Luis Carlos Route PRN Reason Start Time Stop Time Status Last Admin Dose Admin IV Flush (NS Flush) 2 ml BID FLUSH 12/05/16 21:00 12/11/16 08:04 Docusate Sodium (Colace) 100 mg Q12H PO 12/05/16 18:00 12/12/16 05:34 Enalaprilat (Vasotec Inj) 2.5 mg Q6H PRN IV PUSH SBP>160, DBP>90 12/05/16 18:00 12/05/16 18:35 Ferrous Sulfate (Ferrous Sulfate Liq) 300 mg DAILY PO 12/06/16 09:00 12/11/16 08:04 Doxazosin Mesylate (Cardura) 8 mg HS PO 12/05/16 21:00 12/11/16 22:53 Atorvastatin Calcium (Lipitor) 40 mg HS PO 12/05/16 21:00 12/11/16 22:54 Furosemide 40 mg 40 mg DAILY TUBE 12/06/16 09:00 12/11/16 08:04 Sodium Chloride (NS 1000 ml Inj) 1,000 ml @ 0 mls/hr Q0M PRN IV For Prime & Rinse Back 12/06/16 12:11 12/12/16 09:33 Heparin Sodium (Porcine) (Heparin Inj) UNSCH PRN .XX WITH DIALYSIS 12/06/16 12:15 12/12/16 09:33 Gentamicin Sulfate (Gentamicin (Dialysis) Inj) 20 mg UNSCH PRN IV WITH DIALYSIS 12/06/16 12:15 12/12/16 09:33 Acetaminophen (Tylenol) 650 mg UNSCH PRN PO for headach, pain, temp > 101F 12/06/16 12:15 12/12/16 00:41 Epoetin Blanco (Epogen Inj) 10,000 units UNSCH PRN IV WITH DIALYSIS 12/06/16 12:15 12/12/16 09:33 Megestrol Acetate (Megace Liq) 400 mg DAILY PO 12/08/16 09:00 12/11/16 08:03 Heparin Sodium (Porcine) (Heparin Inj) 5,000 units Q12HR SQ 12/08/16 21:00 Hold 12/10/16 21:36 Phenytoin (Dilantin Liq) 300 mg Q12HR PO 12/08/16 21:00 12/11/16 22:54 Levofloxacin (Levaquin) 250 mg Q48H PO 12/11/16 16:00 12/11/16 16:37 Objective Remarks GENERAL: Pleasant, weak male, lying supine on stretcher receiving dialysis SKIN: Warm and dry. HEAD: Normocephalic. EYES: No injection or drainage. NECK: Supple, trachea midline. CARDIOVASCULAR: +S1/S2 RESPIRATORY: anterior loyola with occasional rhonchi. on supplemental O2 via [place] GASTROINTESTINAL: Abdomen soft, non-tender, nondistended. EXTREMITIES: No cyanosis. bilateral lower extremities in ankle cushions MUSCULOSKELETAL: extensive muscular deconditioning NEUROLOGICAL: AOx 3. normal speech. moving extremities. Assessment/Plan Assessment 71y/o with newly diagnosed Squamous cell carcinoma of the left mainstem bronchus as well as newly found bladder mass History: Mr. Jaime's history dates back to September 2016 when he began to develop increasing difficulty breathing as well as cough producing blood. He presented to [facility] on 10/22/2016 with acute worsening of difficulty breathing. He underwent imaging studies including a CT angiogram which revealed complete whiteout of the left lung, associated possible underlying mass / nodularity of the left hilum. He was shortly thereafter intubated. He had high volume hemoptysis. The patient was evaluated CT surgery here and after spending some time on a ventilator. He was transferred to the [facility] in [place] where he was evaluated by interventional pulmonology. 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 The left main bronchus was stented. The hemoptysis was controlled and he was eventually extubated. He did have a very complicated hospital stay though and while in the hospital he had a PEA arrest on 11/08/2016. He was resuscitated. He also developed acute renal failure and required hemodialysis. He has required a Dobbhoff tube for feeding purposes. 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 After his condition was stabilized he was transferred back to [facility] for continuation of care. Records from the [facility] indicated a bladder mass. Urology was consulted and they plan to do w/u once the patient is stronger. Plan 1. Nutrition: s/p PEG tube placement. tolerating Nepro at 65cc/hr @ night. on Megace for appetite stimulation during the day. 2. Renal failure: on HD, nephrology following 3. Performance status: continues to have very poor PFS. working with PT. 4. Squamous cell carcinoma of the lung: patient planning to return with son to [place], [place] and plans to follow up at the [facility] there, once stable enough for discharge 5. Anemia: on daily ferrous sulfate. s/p IV Iron. Receives Epogen with dialysis. 6. Bladder mass: urology following and plans for cystoscopy once patient is stronger. 7. superficial thrombophlebitis: warm compresses Elmira Garcia Dec 12, 2016 10:42
[2016-12-12] MEDS: MEGESTROL ACETATE SUSP 400 MG/10 ML CUP PO SCH (13:12)
[2016-12-12] MEDS: PHENYTOIN SUSP 100 MG/4 ML CUP PO SCH ×2 (13:12→21:31)
[2016-12-12] MEDS: FERROUS SULFATE 300 MG /5ML UDC PO SCH (13:13)
[2016-12-12] MEDS: FUROSEMIDE 40 MG/5 ML UNIT DOSE CUP TUBE SCH (13:13)
--- NOTE | 2016-12-12 13:17 | HHI.PR ---
Subjective Remarks tolerated hemodialysis minimal cough soft brown stools Objective Vitals Vital Signs Date Time Temp Pulse Resp B/P Pulse Ox O2 Delivery O2 Flow Rate FiO2 12/12/16 08:00 97.3 90 17 145/67 88 12/12/16 04:00 98.7 84 22 140/68 95 12/12/16 00:00 100.7 91 24 149/72 95 12/11/16 22:47 82 12/11/16 20:00 97.7 86 24 119/64 97 12/11/16 17:42 95 Nasal Cannula 2.00 12/11/16 16:00 97.9 84 18 134/63 95 I/O 12/11/16 12/11/16 12/11/16 12/12/16 12/12/16 12/12/16 07:00 15:00 23:00 07:00 15:00 23:00 Intake Total 0 ml 100 ml 0 ml 60 ml Output Total 150 ml 200 ml 200 ml 250 ml 3000 ml Balance -150 ml -100 ml -200 ml -190 ml -3000 ml Intake Oral 0 ml 0 ml 0 ml 60 ml IV Total 0 ml 0 ml 0 ml Other 100 ml Output Urine Total 150 ml 200 ml 200 ml 250 ml Hemodialysis 3000 ml # Bowel Movements 0 0 0 Result Diagram: 12/11/16 0325 12/11/16 0325 Imaging Last Impressions Upper Extremity Ultrasound 12/11/16 1506 Signed Impressions: Service Date/Time: Sunday, December 11, 2016 18:00 - CONCLUSION: Superficial thrombophlebitis, extensive edema and nonspecific fluid collections in the subcutaneous tissues. Shawn Reyes MD Head CT 12/11/16 0000 Signed Impressions: Service Date/Time: Sunday, December 11, 2016 20:00 - CONCLUSION: Slight atrophic and small vessel ischemic changes without any evidence for acute hemorrhage or mass effect. Shawn Reyes MD Renal Ultrasound 12/09/16 0000 Signed Impressions: Service Date/Time: Friday, December 09, 2016 15:16 - CONCLUSION: 1. 8.4 cm mass lesion at the base of the bladder. This may represent an intrinsic mass of the bladder versus a prominent anterior lobe of the prostate. 2. Otherwise, urinary bladder is partially decompressed with a Lipscomb catheter. 3. Both kidneys are sonographically normal. Roby Horta MD Chest X-Ray 3/16/17 1700 Signed Impressions: Service Date/Time: November 18:52 - CONCLUSION: Left lung/hemithorax remain essentially completely opacified and with volume loss. Patchy consolidation on the right, mainly at the base. Masslike area right mid lung potentially some loculated pleural fluid. 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 S/P extubation Complicated stay with occluded stent in the left main bronchus, [id number] sat good on 3L NC. Hematology ff BPH continue doxazosin 8 mg qhs . Bladder Mass Urology ff- plan for cytoscopy when patient stronger Respiratory failure requiring O2 supplement Duonebs as need. Patient was treated for PNA bronch sputum klebsiella + , ( treated at [facility] and finished course of abx per records). Blood cx were negative 11/07/16 ECHO 55-60% Iron deficiency Anemia- low Iron stores S/P EGD- gastritis, duodenitis, esophagitis S/P PEG 12/11 S/P IV Iron . PPI ESRD requiring HD. US kidney at [facility] rev findings consistent with chronic kidney disease. Tunnelled dialysis catheter was placed 12/04/16 ( right) at [facility]. non oliguric- awaiting renal recovery on Lasix po daily Nephrology ff Nutrition :Nephro TF at night. . on MegaACE- needs to be stronger for future studies like cystoscopy HTN- Continue atenolol 25 mg po bid early cellulitis, superfiial thrombophlebitis- Left UE Head CT negative Doppler done 2 days ago - venous system patent elevate Left UE above the heart at all times DC all IV access.on this arm started on Levaquin. warm compress Pyuria- ff c and S on Levaquin 250 mg daily for above Seizure- Continue Dilantin. Seizure precautions. Stable. DVT ppx with SCD/TEDs PT/OT consult Tarunce for appetite Consult case management - will need SNF PT/OT/ daily- deconditioning Incentive spirometry Sarah Kirkpatrick MD Dec 12, 2016 13:17
--- NOTE | 2016-12-12 16:50 | HHI.GIFU ---
Subjective Remarks Resting in bed. Had HD today. Feeling better. Appetite still not good, but states he is trying to eat more. No n/v. No abdominal pain. (Audrey Vanegas) Objective Vitals I&O Vital Signs Date Time Temp Pulse Resp B/P Pulse Ox O2 Delivery O2 Flow Rate FiO2 12/12/16 08:00 97.3 90 17 145/67 88 12/12/16 04:00 98.7 84 22 140/68 95 12/12/16 00:00 100.7 91 24 149/72 95 12/11/16 22:47 82 12/11/16 20:00 97.7 86 24 119/64 97 12/11/16 17:42 95 Nasal Cannula 2.00 I/O 12/11/16 12/11/16 12/11/16 12/12/16 12/12/16 12/12/16 07:00 15:00 23:00 07:00 15:00 23:00 Intake Total 0 ml 100 ml 0 ml 60 ml 120 ml Output Total 150 ml 200 ml 200 ml 250 ml 3200 ml Balance -150 ml -100 ml -200 ml -190 ml -3080 ml Intake Oral 0 ml 0 ml 0 ml 60 ml 120 ml IV Total 0 ml 0 ml 0 ml Other 100 ml Output Urine Total 150 ml 200 ml 200 ml 250 ml 200 ml Hemodialysis 3000 ml # Bowel Movements 0 0 0 1 Laboratory Date/Time Procedure Status Source Growth 12/11/16 08:20 Urine Culture - Preliminary Resulted Urine Clean Catch NO GROWTH IN 24 HOURS. Imaging Last Impressions Upper Extremity Ultrasound 12/11/16 1506 Signed Impressions: Service Date/Time: Sunday, December 11, 2016 18:00 - CONCLUSION: Superficial thrombophlebitis, extensive edema and nonspecific fluid collections in the subcutaneous tissues. Shawn Reyes MD Head CT 12/11/16 0000 Signed Impressions: Service Date/Time: Sunday, December 11, 2016 20:00 - CONCLUSION: Slight atrophic and small vessel ischemic changes without any evidence for acute hemorrhage or mass effect. Shawn Reyes MD Renal Ultrasound 12/09/16 0000 Signed Impressions: Service Date/Time: Friday, December 09, 2016 15:16 - CONCLUSION: 1. 8.4 cm mass lesion at the base of the bladder. This may represent an intrinsic mass of the bladder versus a prominent anterior lobe of the prostate. 2. Otherwise, urinary bladder is partially decompressed with a Lipscomb catheter. 3. Both kidneys are sonographically normal. Roby Horta MD Chest X-Ray 12/05/16 1700 Signed Impressions: Service Date/Time: November 18:52 - CONCLUSION: Left lung/hemithorax remain essentially completely opacified and with volume loss. Patchy consolidation on the right, mainly at the base. Masslike area right mid lung potentially some loculated pleural fluid. Paul Sinha MD Physical Exam HEENT: Normocephalic; atraumatic; no jaundice. CHEST: Resp. shallow/even, course breath sounds -CARDIAC: mildly tachycardic ABDOMEN: Soft, nondistended, nontender; bowel sounds are present in all four quadrants. PEG tube site without redness or swelling EXTREMITIES: Edema in both UE and LE DETACHER: No focal deficits; lethargic and oriented times three. (Audrey Vanegas) Assessment and Plan Plan ASSESSMENT: - Iron Deficiency Anemia with Hemoccult positive stool. HH on arrival was 6.6/ 20.0. He was given 2 units of PRBC. He is not having any obvious GI bleeding at this time. Other than decreased appetite, he denies any GI symptoms. He last had an EGD and colonoscopy was about 4-[address] [facility] and reports that he had a colon polyp removed at that time. Iron 25, TIBC 197, TIBC 197, Iron saturation 12.7. Getting iron transfusions and PPI. Plan was for EGD with PEG tube placement and colonoscopy once calorie count completed, but patient is extremely weak and does not feel that he could take the bowel prep for colonoscopy at this time. S/P EGD with PEG tube placement (12/11/16)----> A hiatal hernia, gastritis antrum-biopsy, esophagitis distal esophagus-biopsy s/p peg placement. Pathology pending. Plan for colonoscopy once stronger and able to take bowel prep. - Protein calorie malnutrition. Patient currently has Dobbhoff in place. He denies any actual dysphagia or odynophagia. Speech therapy is following and has recommended a mechanical soft diet with nectar thickened liquids. The dietitian is also following and has updated their recommendations to Nepro at 65 cc an hour 12 hours from 6 PM to 6 AM, renal diet, Nepro BID and to feed patient. This has been changed. We will place feeding tube tomorrow, patient agreeable. S/P PEG, site without redness or swelling. 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 Patient was hospitalized at this facility last month after developing shortness of breath and significant hemoptysis. He required mechanical ventilation. He was evaluated by CVT and then transferred to the [facility] in [place]. He was evaluated by Interventional pulmonology and underwent a bronchoscopy with debulking of a large mass involving the left mainstem bronchus. The left main bronchus was stented. He is being followed by oncology. He has not yet been staged. According to oncology, he will need to be stronger prior to moving forward with management of his lung cancer. - Acute renal failure, HD per renal. - Severe deconditioning. Pt has had a prolonged hospitalization, complicated by PEA arrest on 11/08/16. ST/OT/PT PLAN: - Renal diet Mechanical soft with nectar thickened liquids with Nepro BID - Nepro at 65 cc an hour 12 hours, 6 PM to 6 AM- hold one hour before and after dilantin. - Await pathology - Continue speech therapy - Carburetor Specialist following - PPI - Monitor meal percentages - Monitor H&H - Transfuse as necessary - Supportive care - Will hold on colonoscopy until patient stronger and able to take bowel prep - GI will sign off, please reconsult as needed - Pt seen and examined by Dr. Erwin and myself and this note is written on his behalf (Audrey Vanegas) Physician Comments agree (Silvia Erwin MD) Audrey Vanegas Dec 12, 2016 16:50 Silvia Erwin MD Dec 12, 2016 17:49
[2016-12-12 20:00] VITALS: BP 147/70; PULSE 86; PULSE 89; RESP 22; TEMP 98.1; O2SAT 95
[2016-12-12] MEDS: ATORVASTATIN 40 MG TAB PO SCH (21:31)
[2016-12-12] MEDS: DOXAZOSIN MESYLATE 4 MG TAB PO SCH (21:31)
[2016-12-13] VITALS (8 sets, daily range): BP systolic 138–181; BP diastolic 67–84; PULSE 79–101; RESP 19–22; TEMP 97–99.3; O2SAT 91–95
[2016-12-13] MEDS: DOCUSATE SODIUM 100 MG CAP PO SCH ×2 (04:16→18:00)
[2016-12-13] MEDS: MEGESTROL ACETATE SUSP 400 MG/10 ML CUP PO SCH ×2 (08:43→08:44)
[2016-12-13] MEDS: FERROUS SULFATE 300 MG /5ML UDC PO SCH (08:43)
[2016-12-13] MEDS: SODIUM CHLORIDE 0.9% FLUSH 5 ML FLUSH FLUSH SCH ×2 (08:44→20:12)
[2016-12-13] MEDS: PHENYTOIN SUSP 100 MG/4 ML CUP PO SCH ×2 (08:44→20:12)
[2016-12-13] MEDS: FUROSEMIDE 40 MG/5 ML UNIT DOSE CUP TUBE SCH (09:00)
--- NOTE | 2016-12-13 10:09 | HHI.NPPN ---
Subjective General Problems: Anemia, Edema Renal Failure: Acute History of Present Illness 71 y/o male pt. Transferred to [facility] from [facility] with renal failure from AT on HD Interval History Dialyzed yesterday. He is much more alert. PEG functioning well. Good urine output. (Marina Mcgovern) Review of Systems General Constitutional: Fatigue (Marina Mcgovern) Objective Data Data 12/12/16 12/13/16 18:59 06:59 Intake Total 120 ml 785 ml Output Total 3200 ml 550 ml Balance -3080 ml 235 ml Intake Oral 120 ml 240 ml Tube Feeding 445 ml Other 100 ml Output Urine Total 200 ml 550 ml Hemodialysis 3000 ml # Bowel Movements 1 0 Vital Signs Date Time Temp Pulse Resp B/P Pulse Ox O2 Delivery O2 Flow Rate FiO2 12/13/16 04:00 97.6 92 22 168/80 95 12/13/16 00:00 99.3 88 22 157/74 95 12/12/16 20:00 98.1 89 22 147/70 95 12/12/16 20:00 86 (Marina Mcgovern) -: 12/11/16 0325 12/11/16 0325 Imaging Last Impressions Upper Extremity Ultrasound 12/11/16 1506 Signed Impressions: Service Date/Time: Sunday, December 11, 2016 18:00 - CONCLUSION: Superficial thrombophlebitis, extensive edema and nonspecific fluid collections in the subcutaneous tissues. Shawn Reyes MD Head CT 12/11/16 0000 Signed Impressions: Service Date/Time: Sunday, December 11, 2016 20:00 - CONCLUSION: Slight atrophic and small vessel ischemic changes without any evidence for acute hemorrhage or mass effect. Shawn Reyes MD Renal Ultrasound 12/09/16 0000 Signed Impressions: Service Date/Time: Friday, December 09, 2016 15:16 - CONCLUSION: 1. 8.4 cm mass lesion at the base of the bladder. This may represent an intrinsic mass of the bladder versus a prominent anterior lobe of the prostate. 2. Otherwise, urinary bladder is partially decompressed with a Miranda catheter. 3. Both kidneys are sonographically normal. Roby Horta MD Chest X-Ray 12/05/16 1700 Signed Impressions: Service Date/Time: November 18:52 - CONCLUSION: Left lung/hemithorax remain essentially completely opacified and with volume loss. Patchy consolidation on the right, mainly at the base. Masslike area right mid lung potentially some loculated pleural fluid. Paul Sinha MD Tubes & Lines: Miranda Tubes & Lines Comment PEG, (Froilan,Marina B. QUILTER FIXER) Physical Exam General Appearance: Well Developed, No Acute Distress, Comfortable (Froilan,Marina B. QUILTER FIXER) Eyes Eye Exam: Pupils Equal, Pupils Reactive (Froilan,Marina B. QUILTER FIXER) Throat Throat Exam: Oral Mucosa [place] & Moist (Froilan,Marina B. QUILTER FIXER) Pulmonary Resp Exam: No Distress, Crackles, Rhonchi, Decreased Bases, Diminished Breath Sounds (Froilan,Marina B. QUILTER FIXER) Cardiology CV Exam: Regular, Normal Sinus Rhythm, Murmur (Froilan,Marina B. QUILTER FIXER) Gastrointestinal/Abdomen GI Exam: Soft, Non-Tender, Bowel Sounds Present, Distended (Froilan,Marina B. QUILTER FIXER) Genitourinary Exam: Clear Urine (Froilan,Marina B. QUILTER FIXER) Musculoskeletal MS Exam: Normal Tone (FroilanMarina B. QUILTER FIXER) Integumentary Skin Exam: Warm, Dry (FroilanMarina B. QUILTER FIXER) Extremeties Extremities Exam: No Edema, Pedal Pulses Palpable Extremeties Remarks left arm edematous (Froilan,Marina B. QUILTER FIXER) Neurologic Neuro Exam: Alert, Awake, Oriented, Speech Clear, Moving All Extremities ( FroilanMarina B. QUILTER FIXER) Psychiatric Psych Exam: Appropriate Responses (FroilanMarina B. QUILTER FIXER) Assessment/Plan Discussed Condition With: Patient Assessment Summary: TODD/Acute Renal Failure, Acute Tubular Necrosis Problem List: (1) Acute renal failure Plan: He had creatinine 0.77 in October Renal failure ATN due to PEA arrest He is on HD per TTS schedule. Had 3L UF yesterday repeat labs today and tomorrow hold HD tomorrow if creatinine is better he is non oliguric, continue lasix ; keep miranda in place until urology evaluates bladder mass follow renal function daily await renal recovery avoid nephrotoxins, no IVF required (2) Bronchiolar obstruction Plan: s/p stent placement, dx of squamous cell carcinoma med oncology following (3) Mass of left lung Plan: oncology has evaluated, appreciate their recommendations he is unstable for treatment at this time (4) Acute respiratory failure Plan: extubated, respiratory status is better on tube feeding and oral nutrition, caloric intake not sufficiency s/p PEG placement; dobhoff removed speech therapy following (5) Anemia Plan: Has been seen by Hematology. transfused last week, has iron deficiency, given Venofer Epogen with HD Hemoccult positive , cannot tolerate bowel prep for colonoscopy (6) Bladder mass Plan: urology following, bladder US report noted he will need cystoscopy with TURBT (Marina Mcgovern) Plan patient was seen and examined. Agree with above assessment plan. Monitor urine output. Labs tomorrow. (Willian Borjas MD) Marina Mcgovern Dec 13, 2016 10:09 Willian Borjas MD Dec 13, 2016 13:43
[2016-12-13 11:13] LABS: BICARBONATE 32.9 MEQ/L (21.0-32.0); POTASSIUM 3.5 MEQ/L (3.5-5.1)
--- NOTE | 2016-12-13 12:46 | HHI.PR ---
Subjective Remarks patient awake and alert, feeling stronger gradually po intake improving, no abdominal pain miranda- no gross hematuria Objective Vitals Vital Signs Date Time Temp Pulse Resp B/P Pulse Ox O2 Delivery O2 Flow Rate FiO2 12/13/16 08:00 98.0 98 21 145/67 92 12/13/16 04:00 97.6 92 22 168/80 95 12/13/16 00:00 99.3 88 22 157/74 95 12/12/16 20:00 98.1 89 22 147/70 95 12/12/16 20:00 86 I/O 12/12/16 12/12/16 12/12/16 12/13/16 12/13/16 12/13/16 06:59 14:59 22:59 06:59 14:59 22:59 Intake Total 60 ml 120 ml 350 ml 435 ml Output Total 250 ml 3200 ml 250 ml 300 ml Balance -190 ml -3080 ml 100 ml 135 ml Intake Oral 60 ml 120 ml 120 ml 120 ml IV Total 0 ml Tube Feeding 230 ml 215 ml Other 100 ml Output Urine Total 250 ml 200 ml 250 ml 300 ml Hemodialysis 3000 ml # Bowel Movements 0 1 0 0 Result Diagram: 12/11/16 0325 12/13/16 1002 Imaging Last Impressions Upper Extremity Ultrasound 12/11/16 1506 Signed Impressions: Service Date/Time: Sunday, December 11, 2016 18:00 - CONCLUSION: Superficial thrombophlebitis, extensive edema and nonspecific fluid collections in the subcutaneous tissues. Shawn Reyes MD Head CT 12/11/16 0000 Signed Impressions: Service Date/Time: Sunday, December 11, 2016 20:00 - CONCLUSION: Slight atrophic and small vessel ischemic changes without any evidence for acute hemorrhage or mass effect. Shawn Reyes MD Renal Ultrasound 12/09/16 0000 Signed Impressions: Service Date/Time: Friday, December 09, 2016 15:16 - CONCLUSION: 1. 8.4 cm mass lesion at the base of the bladder. This may represent an intrinsic mass of the bladder versus a prominent anterior lobe of the prostate. 2. Otherwise, urinary bladder is partially decompressed with a Miranda catheter. 3. Both kidneys are sonographically normal. Roby Horta MD Chest X-Ray 12/05/16 1700 Signed Impressions: Service Date/Time: November 18:52 - CONCLUSION: Left lung/hemithorax remain essentially completely opacified and with volume loss. Patchy consolidation on the right, mainly at the base. Masslike area right mid lung potentially some loculated pleural fluid. Paul Sinha MD Objective Remarks awake and alert, NAD, generalized weakness anicteric neck supple decrease breath sounds left LF regular rhythm abdomen soft, good bowel sounds, PEG in place Miranda in place lower extremities no edema, or calf tenderness left UE- triceps area- erythema improved, swelling and induration much decreased and improved moves all extremities equally with generalized weakness Procedures 12/11- EGD- esophagitis, gastritis, duodenitis PEG placement Urinary Catheter: Yes Assessment to: Continue Miranda insert reason: Obstruction/Retention Date of Insertion: Nov 15, 2016 A/P Assessment and Plan 71 yo male with 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 S/P extubation Complicated stay with occluded stent in the left main bronchus, [id number] sat good on 3L NC. Hematology ff ESRD requiring HD. US kidney at [facility] rev findings consistent with chronic kidney disease. Tunnelled dialysis catheter was placed 12/04/16 ( right) at [facility]. non oliguric- awaiting renal recovery on Lasix po daily Nephrology ff- currently on HD BPH continue doxazosin 8 mg qhs . Bladder Mass Urology ff- plan for cystoscopy when patient stronger in the future- reconsult them if patient in optimum condition for surgery/procedure - will require anesthesia keep miranda- placed 11/15- change per miranda care protocol- Respiratory failure requiring O2 supplement Duonebs as need. S/P tx for PNA bronch sputum klebsiella + , treated at [facility] and finished course of abx per records). Blood cx were negative 11/07/16 ECHO 55-60% Iron deficiency Anemia- low Iron stores S/P EGD- gastritis, duodenitis, esophagitis S/P PEG 12/11 S/P IV Iron . PPI Nutrition :Nephro TF at night. . on MegaACE- needs to be stronger for future studies and work up- needs cystoscopy HTN- Continue atenolol 25 mg po bid Left UE superficial thrombophlebitis-improving Doppler done 2 days ago - venous system patent elevate Left UE above the heart at all times NO IV access.on this arm started on Levaquin.- 12/11- 250 mg po q 48- monitor warm compress UTI- +Pyuria- C and S still pending on Levaquin 250 mg daily for above. FF final report Seizure- Continue Dilantin. Seizure precautions. Stable. DVT ppx with SCD/TEDs Megace for appetite Consult case management/ff - will need SNF PT/OT/ daily- deconditioning Incentive spirometry Sarah Kirkpatrick MD Dec 13, 2016 12:46
[2016-12-13] MEDS: LEVOFLOXACIN 250 MG TAB PO SCH (14:34)
[2016-12-13] MEDS: ATORVASTATIN 40 MG TAB PO SCH (20:12)
[2016-12-13] MEDS: DOXAZOSIN MESYLATE 4 MG TAB PO SCH (20:12)
[2016-12-13] MEDS: HEPARIN SODIUM - SQ 10,000 UNITS/ML VIAL SQ SCH (20:12)
[2016-12-14] VITALS (8 sets, daily range): BP systolic 152–192; BP diastolic 70–85; PULSE 88–112; RESP 19–22; TEMP 96.8–99.8; O2SAT 91–98
[2016-12-14] MEDS: DOCUSATE SODIUM 100 MG CAP PO SCH ×3 (04:25→20:41)
[2016-12-14 04:58] LABS: BICARBONATE 33.7 MEQ/L (21.0-32.0); POTASSIUM 3.5 MEQ/L (3.5-5.1)
[2016-12-14] MEDS: PHENYTOIN SUSP 100 MG/4 ML CUP PO SCH ×2 (07:53→20:42)
[2016-12-14] MEDS: FUROSEMIDE 40 MG/5 ML UNIT DOSE CUP TUBE SCH (07:53)
[2016-12-14] MEDS: FERROUS SULFATE 300 MG /5ML UDC PO SCH (07:53)
[2016-12-14] MEDS: MEGESTROL ACETATE SUSP 400 MG/10 ML CUP PO SCH (07:53)
[2016-12-14] MEDS: cloNIDine HCL 0.1 MG TAB PO PRN (07:54)
[2016-12-14] MEDS: ACETAMINOPHEN 325 MG TAB PO PRN (07:54)
[2016-12-14] MEDS: SODIUM CHLORIDE 0.9% FLUSH 5 ML FLUSH FLUSH SCH ×2 (07:54→20:42)
[2016-12-14] MEDS: HEPARIN SODIUM - SQ 10,000 UNITS/ML VIAL SQ SCH ×2 (07:54→20:41)
--- NOTE | 2016-12-14 09:28 | HHI.PR ---
Subjective Remarks resting comfortably with no distress. denies pain. no fever. Objective Vitals Vital Signs Date Time Temp Pulse Resp B/P Pulse Ox O2 Delivery O2 Flow Rate FiO2 12/14/16 08:54 18 12/14/16 08:00 99.8 112 22 192/82 92 188/85 12/14/16 07:30 92 Nasal Cannula 2.00 12/14/16 04:00 99.0 108 19 168/80 92 12/14/16 00:02 96.8 110 19 177/82 91 12/13/16 21:02 101 12/13/16 20:00 97.9 79 19 181/84 91 12/13/16 18:15 94 Nasal Cannula 2.00 12/13/16 16:00 97.4 92 20 138/68 94 12/13/16 12:00 97.0 96 20 160/67 93 I/O 12/13/16 12/13/16 12/13/16 12/14/16 12/14/16 12/14/16 07:00 15:00 23:00 07:00 15:00 23:00 Intake Total 435 ml 340 ml 485 ml 605 ml Output Total 300 ml 250 ml 350 ml 450 ml Balance 135 ml 90 ml 135 ml 155 ml Intake Oral 120 ml 340 ml 120 ml 240 ml Tube Feeding 215 ml 365 ml 365 ml Other 100 ml Output Urine Total 300 ml 250 ml 350 ml 450 ml # Bowel Movements 0 0 0 0 Result Diagram: 12/11/16 0325 12/14/16 0259 Imaging Last Impressions Upper Extremity Ultrasound 12/11/16 1506 Signed Impressions: Service Date/Time: Sunday, December 11, 2016 18:00 - CONCLUSION: Superficial thrombophlebitis, extensive edema and nonspecific fluid collections in the subcutaneous tissues. Shawn Reyes MD Head CT 12/11/16 0000 Signed Impressions: Service Date/Time: Sunday, December 11, 2016 20:00 - CONCLUSION: Slight atrophic and small vessel ischemic changes without any evidence for acute hemorrhage or mass effect. Shawn Reyes MD Renal Ultrasound 12/09/16 0000 Signed Impressions: Service Date/Time: Friday, December 09, 2016 15:16 - CONCLUSION: 1. 8.4 cm mass lesion at the base of the bladder. This may represent an intrinsic mass of the bladder versus a prominent anterior lobe of the prostate. 2. Otherwise, urinary bladder is partially decompressed with a Lipscomb catheter. 3. Both kidneys are sonographically normal. Roby Horta MD Chest X-Ray 12/05/16 1700 Signed Impressions: Service Date/Time: November 18:52 - CONCLUSION: Left lung/hemithorax remain essentially completely opacified and with volume loss. Patchy consolidation on the right, mainly at the base. Masslike area right mid lung potentially some loculated pleural fluid. Paul Sinha MD Objective Remarks GENERAL: This is a well-nourished, well-developed patient, in no apparent distress. CARDIOVASCULAR: Regular rate and regular rhythm without murmurs, gallops, or rubs. RESPIRATORY: Clear to auscultation. Breath sounds equal bilaterally. No wheezes , rales, or rhonchi. GASTROINTESTINAL: Abdomen soft, non-tender, nondistended. Normal, active bowel sounds MUSCULOSKELETAL: Extremities without clubbing, cyanosis, or edema. NEURO: Alert & Oriented x4 to person, place, time, situation. Moves all ext x4 Procedures 12/11- EGD- esophagitis, gastritis, duodenitis PEG placement Medications and IVs Current Medications Sodium Chloride (NS 1000 ml Inj) 1,000 ml @ 75 mls/hr [id number] IV Last administered on 12/06/16 05:59; Start 12/05/16 at 18:00; Stop 12/06/16 at 12:03 ; Status DC IV Flush (NS Flush) 2 ml UNSCH PRN FLUSH FLUSH AFTER USING IV ACCESS; Start at 17:00 IV Flush (NS Flush) 2 ml BID FLUSH Last administered on 12/11/16 08:04; Start 12/05/16 at 21:00 Ondansetron HCl (Zofran Inj) 4 mg Q6H PRN IVP NAUSEA OR VOMITING; Start at 18:00 Bisacodyl (Dulcolax Supp) 10 mg DAILY PRN [place] CONSTIPATION; Start 12/05/16 at 18 :00 Docusate Sodium (Colace) 100 mg Q12H PO Last administered on 12/12/16 05:34; Start 12/05/16 at 18:00 Naloxone HCl (Narcan Inj) 0.4 mg UNSCH PRN IV SEE LABEL COMMENTS; Start at 17:00 Phenytoin (Dilantin) 300 mg BID PO Last administered on 12/07/16 20:57; Start 12/05/16 at 21:00; Stop 12/08/16 at 10:47; Status DC Terazosin HCl (Hytrin) 1 mg HS PO ; Start 12/05/16 at 21:00; Stop 12/05/16 at 21 :00; Status DC Enalaprilat (Vasotec Inj) 2.5 mg Q6H PRN IV PUSH SBP>160, DBP>90 Last administered on 12/05/16 18:35; Start 12/05/16 at 18:00 Ferrous Sulfate (Ferrous Sulfate Liq) 300 mg DAILY PO Last administered on 12/14 07:53; Start 12/06/16 at 09:00 Doxazosin Mesylate (Cardura) 8 mg HS PO Last administered on 12/13/16 20:12; Start 12/05/16 at 21:00 Atorvastatin Calcium (Lipitor) 40 mg HS PO Last administered on 12/13/16 20:12 ; Start 12/05/16 at 21:00 Furosemide (Lasix Liq) 40 mg DAILY TUBE Last administered on 12/14/16 07:53; Start 12/06/16 at 09:00 Senna/Docusate Sodium (Jacinda-Colace) 2 tab BID PRN PO CONSTIPATION; Start at 19:45 Lactulose (Lactulose Liq) 30 ml TID PRN PO CONSTIPATION; Start 12/05/16 at 19: 45 Bisacodyl (Dulcolax Supp) 10 mg DAILY PRN [place] CONSTIPATION; Start 12/05/16 at 19 :45; Status Cancel Magnesium Hydroxide (Milk Of Magnesia Liq) 30 ml Q6H PRN PO CONSTIPATION; Start 12/05/16 at 19:45 Furosemide 20 mg 20 mg ONCE ONCE IV PUSH ; Start 12/06/16 at 07:00; Stop at 07:01; Status DC Sodium Chloride (NS 250 ml Inj) 250 ml @ 15 mls/hr ONCE ONCE IV Last administered on 12/06/16 11:00; Start 12/06/16 at 08:45; Stop 12/07/16 at 01:24 ; Status DC Acetaminophen (Tylenol) 650 mg Q4H PRN PO SEE LABEL COMMENTS; Start 12/06/16 at 08:45; Stop 12/06/16 at 12:46; Status DC Diphenhydramine HCl (Benadryl) 25 mg Q4H PRN PO SEE LABEL COMMENTS; Start 12/06 at 08:45; Stop 12/06/16 at 12:46; Status DC Furosemide (Lasix Inj) 20 mg ONCE ONCE IV ; Start 12/06/16 at 08:45; Stop 12/06 at 08:46; Status DC Prednisone 20 mg 20 mg ONCE ONCE PO Last administered on 12/06/16 15:36; Start 12/06/16 at 13:00; Stop 12/06/16 at 13:01; Status DC Sodium Chloride (NS 1000 ml Inj) 1,000 ml @ 0 mls/hr Q0M PRN IV For Prime & Rinse Back Last administered on 12/12/16 09:33; Start 12/06/16 at 12:11 Heparin Sodium (Porcine) 8000 units 8,000 units UNSCH PRN IVF WITH DIALYSIS; Start 12/06/16 at 12:15 Sodium Chloride 1,000 ml @ 200 mls/hr Q5H PRN IV WITH DIALYSIS; Start 12/06/16 at 12:11 Sodium Chloride (NS 1000 ml Inj) 1,000 ml @ 0 mls/hr Q0M PRN IV WITH DIALYSIS; Start 12/06/16 at 12:11 Mannitol (Mannitol Inj) 12.5 gm UNSCH PRN IV WITH DIALYSIS; Start 12/06/16 at 12:15 Albumin Human (Albumin 25% Inj) 25 gm UNSCH PRN IV WITH DIALYSIS; Start at 12:15 IV Flush (NS Flush) 5 ml UNSCH PRN IVF WITH DIALYSIS; Start 12/06/16 at 12:15 Heparin Sodium (Porcine) (Heparin Inj) UNSCH PRN .XX WITH DIALYSIS Last administered on 12/12/16 09:33; Start 12/06/16 at 12:15 Gentamicin Sulfate (Gentamicin (Dialysis) Inj) 20 mg UNSCH PRN IV WITH DIALYSIS Last administered on 12/12/16 09:33; Start 12/06/16 at 12:15 Ondansetron HCl (Zofran Inj) 4 mg UNSCH PRN IV WITH DIALYSIS; Start 12/06/16 at 12:15 Acetaminophen (Tylenol) 650 mg UNSCH PRN PO for headach, pain, temp > 101F Last administered on 12/14/16 07:54; Start 12/06/16 at 12:15 Diphenhydramine HCl (Benadryl) 25 mg UNSCH PRN PO for hives/itching/anaphylaxis ; Start 12/06/16 at 12:15 Nitroglycerin (Nitrostat Sl) 0.4 mg UNSCH PRN SL CHEST PAIN; Start 12/06/16 at 12:15 Clonidine (Catapres) 0.1 mg UNSCH PRN PO for BP > 180/100 X 2 readings Last administered on 12/14/16 07:54; Start 12/06/16 at 12:15 Epoetin Blanco (Epogen Inj) 10,000 units UNSCH PRN IV WITH DIALYSIS Last administered on 12/12/16 09:33; Start 12/06/16 at 12:15 Gelatin (Gelfoam 12 Mm/7 Mm Top) 1 foam UNSCH PRN TOP SEE LABEL COMMENTS; Start 12/06/16 at 12:15 Furosemide (Lasix Inj) 20 mg ONCE ONCE IV Last administered on 12/07/16 00:18 ; Start 12/07/16 at 00:30; Stop 12/07/16 at 00:31; Status DC Megestrol Acetate (Megace Liq) 400 mg ONCE ONCE PO Last administered on 18:19; Start 12/07/16 at 14:00; Stop 12/07/16 at 14:01; Status DC Megestrol Acetate (Megace Liq) 400 mg DAILY PO Last administered on 12/14/16 07:53; Start 12/08/16 at 09:00 Heparin Sodium (Porcine) (Heparin Inj) 5,000 units Q12HR SQ Last administered on 12/14/16 07:54; Start 12/08/16 at 21:00 Phenytoin 300 mg 300 mg Q12HR PO Last administered on 12/14/16 07:53; Start at 21:00 Iron Sucrose 100 mg/Sodium Chloride 105 ml @ 105 mls/hr DAILY IV Last administered on 12/09/16 10:24; Start 12/09/16 at 09:00; Stop 12/11/16 at 09:59 ; Status DC Cefazolin Sodium/ Sodium Chloride (Ancef Inj/NS Inj) 100 ml @ 200 mls/hr [employer] IV ; Start 12/10/16 at 13:30; Stop 12/13/16 at 13:29; Status DC Cefazolin Sodium (Ancef Inj) 1,000 mg STK-MED ONCE IV Last administered on 12/11 10:37; Start 12/11/16 at 10:37; Stop 12/11/16 at 11:05; Status DC Propofol (Diprivan 200 Mg/20 ml Inj) 150 mg STK-MED ONCE IV ; Start 12/11/16 at 10:40; Stop 12/11/16 at 11:10; Status DC Levofloxacin (Levaquin) 250 mg Q48H PO Last administered on 12/13/16 14:34; Start 12/11/16 at 16:00 Phenylephrine HCl (Neosynephrine/ NS 1000 Mcg/10ml Syr) 100 mcg STK-MED ONCE IV ; Start 12/11/16 at 10:45; Stop 12/13/16 at 13:03; Status DC Date of Insertion: Nov 15, 2016 A/P Assessment and Plan A/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 S/P extubation Complicated stay with occluded stent in the left main bronchus. Hematology ff - needs outpatient follow-up ESRD requiring HD. US kidney at [facility] rev findings consistent with chronic kidney disease. Tunnelled dialysis catheter was placed 12/04/16 ( right) at [facility]. non oliguric- awaiting renal recovery on Lasix po daily Nephrology ff- currently on HD BPH continue doxazosin 8 mg qhs . Bladder Mass Urology ff- plan for cystoscopy when patient stronger in the future- reconsult them if patient in optimum condition for surgery/procedure - will require anesthesia Respiratory failure requiring O2 supplement - now improved Duonebs as need. S/P tx for PNA bronch sputum klebsiella + , treated at [facility] and finished course of abx per records). Blood cx were negative 11/07/16 ECHO 55-60% Iron deficiency Anemia- low Iron stores S/P EGD- gastritis, duodenitis, esophagitis S/P PEG 12/11 S/P IV Iron . PPI Nutrition :Nephro TF at night. . on MegaACE- needs to be stronger for future studies and work up- needs cystoscopy HTN- Continue atenolol 25 mg po bid Left UE superficial thrombophlebitis-improving elevate Left UE above the heart at all times NO IV access.on this arm started on Levaquin.- 12/11- 250 mg po q 48- monitor warm compress UTI- +Pyuria- C with zabrina on Levaquin 250 mg daily for above. FF final report repeat UA Seizure- Continue Dilantin. Seizure precautions. Stable. DVT ppx with SCD/TEDs Consult case management/ff - will need SNF PT/OT/ daily- deconditioning Regina Garcia MD Dec 14, 2016 09:28
[2016-12-14 10:47] LABS: BLOOD, URINE MOD (NEG); GLUCOSE,URINE NEG (NEG); KETONE, URINE NEG (NEG); NITRITE,URINE NEG (NEG); SQUAMOUS EPITHELIAL CELL URINE 1 /hpf (0-5); TRANSITIONAL EPI CELLS, URINE 1 /hpf
[2016-12-14 10:48] LABS: COMMENT (UR) CULTURE INDICATED; CULTURE IF INDICATED CULTURE INDICATED; URINE COLOR PINK (YELLW/STRAW)
--- NOTE | 2016-12-14 14:51 | HHI.NPPN ---
Subjective General Problems: Anemia, Edema Renal Failure: Acute History of Present Illness 71 y/o male pt. Transferred to [facility] [place] from [facility] with renal failure from ATN on HD Review of Systems General Constitutional: Fatigue Objective Data Data 12/13/16 12/14/16 19:00 07:00 Intake Total 340 ml 1090 ml Output Total 250 ml 800 ml Balance 90 ml 290 ml Intake Oral 340 ml 360 ml Tube Feeding 730 ml Output Urine Total 250 ml 800 ml # Bowel Movements 0 0 Vital Signs Date Time Temp Pulse Resp B/P Pulse Ox O2 Delivery O2 Flow Rate FiO2 12/14/16 12:00 97.5 94 21 185/84 93 12/14/16 08:54 18 12/14/16 08:00 99.8 112 22 192/82 92 188/85 12/14/16 07:30 92 Nasal Cannula 2.00 12/14/16 04:00 99.0 108 19 168/80 92 12/14/16 00:02 96.8 110 19 177/82 91 12/13/16 21:02 101 12/13/16 20:00 97.9 79 19 181/84 91 12/13/16 18:15 94 Nasal Cannula 2.00 12/13/16 16:00 97.4 92 20 138/68 94 -: 12/11/16 0325 12/14/16 0259 Microbiology 12/14/16 Urine Culture, Received Pending Tubes & Lines: Lipscomb Tubes & Lines Comment PEG, Physical Exam General Appearance: Well Developed, No Acute Distress, Comfortable Eyes Eye Exam: Pupils Equal, Pupils Reactive Throat Throat Exam: Oral Mucosa [place] & Moist Pulmonary Resp Exam: No Distress, Crackles, Rhonchi, Decreased Bases, Diminished Breath Sounds Cardiology CV Exam: Regular, Normal Sinus Rhythm, Murmur Gastrointestinal/Abdomen GI Exam: Soft, Non-Tender, Bowel Sounds Present, Distended Genitourinary Exam: Clear Urine Musculoskeletal MS Exam: Normal Tone Integumentary Skin Exam: Warm, Dry Extremeties Extremities Exam: No Edema, Pedal Pulses Palpable Neurologic Neuro Exam: Alert, Awake, Oriented, Speech Clear, Moving All Extremities Psychiatric Psych Exam: Appropriate Responses Assessment/Plan Discussed Condition With: Patient Assessment Summary: TODD/Acute Renal Failure, Acute Tubular Necrosis Problem List: (1) Acute renal failure Plan: He had creatinine 0.77 in October Renal failure ATN due to PEA arrest He is on HD per TTS schedule. hemodialysis progress noted UF 2 L follow renal function daily await renal recovery avoid nephrotoxins, no IVF required (2) Bronchiolar obstruction Plan: s/p stent placement, dx of squamous cell carcinoma med oncology following (3) Mass of left lung Plan: oncology has evaluated, appreciate their recommendations he is unstable for treatment at this time (4) Acute respiratory failure Plan: extubated, respiratory status is better on tube feeding and oral nutrition, caloric intake not sufficiency s/p PEG placement; dobhoff removed speech therapy following (5) Anemia Plan: Has been seen by Hematology. transfused last week, has iron deficiency, given Venofer Epogen with HD Hemoccult positive , cannot tolerate bowel prep for colonoscopy (6) Bladder mass Plan: urology following, bladder US report noted he will need cystoscopy with TURBT Plan patient was seen and examined. Agree with above assessment plan. Monitor urine output. Labs tomorrow. Maddie Hobbs MD Dec 14, 2016 14:50
[2016-12-14] MEDS: EPOETIN ALFA 10,000 UNITS/ML VIAL IV PRN (16:39)
[2016-12-14] MEDS: GENTAMICIN SULFATE (DIALYSIS USE ONLY) 20 MG/2 ML VIAL IV PRN (16:39)
[2016-12-14] MEDS: HEPARIN SODIUM - IV 10,000 UNITS/10 ML VIAL PRN (16:39)
[2016-12-14] MEDS: ATORVASTATIN 40 MG TAB PO SCH (20:41)
[2016-12-14] MEDS: DOXAZOSIN MESYLATE 4 MG TAB PO SCH (20:41)
[2016-12-15] VITALS (8 sets, daily range): BP systolic 132–163; BP diastolic 59–77; PULSE 87–95; RESP 20–22; TEMP 97–99.1; O2SAT 93–98
[2016-12-15] MEDS: FERROUS SULFATE 300 MG /5ML UDC PO SCH (08:38)
[2016-12-15] MEDS: SODIUM CHLORIDE 0.9% FLUSH 5 ML FLUSH FLUSH SCH ×2 (08:39→21:00)
[2016-12-15] MEDS: MEGESTROL ACETATE SUSP 400 MG/10 ML CUP PO SCH (08:39)
[2016-12-15] MEDS: FUROSEMIDE 40 MG/5 ML UNIT DOSE CUP TUBE SCH (08:39)
[2016-12-15] MEDS: PHENYTOIN SUSP 100 MG/4 ML CUP PO SCH ×2 (08:39→21:01)
[2016-12-15] MEDS: HEPARIN SODIUM - SQ 10,000 UNITS/ML VIAL SQ SCH ×2 (08:39→21:01)
--- NOTE | 2016-12-15 10:30 | HHI.PR ---
Subjective Remarks resting comfortably with no distress. denies pain. no sob. Objective Vitals Vital Signs Date Time Temp Pulse Resp B/P Pulse Ox O2 Delivery O2 Flow Rate FiO2 12/15/16 08:00 98.9 93 20 146/67 93 12/15/16 03:55 97.3 87 20 132/59 98 12/15/16 00:00 98.2 95 22 144/65 98 12/14/16 22:12 98 Nasal Cannula 3.00 12/14/16 20:00 98.8 95 22 152/70 95 12/14/16 19:02 88 12/14/16 12:00 97.5 94 21 185/84 93 I/O 12/14/16 12/14/16 12/14/16 12/15/16 12/15/16 12/15/16 07:00 15:00 23:00 07:00 15:00 23:00 Intake Total 605 ml 600 ml 120 ml 875 ml Output Total 450 ml 600 ml 400 ml 100 ml Balance 155 ml 0 ml -280 ml 775 ml Intake Oral 240 ml 600 ml 120 ml 120 ml IV Total 0 ml 0 ml Tube Feeding 365 ml 725 ml Tube Irrigant 30 ml Output Urine Total 450 ml 600 ml 400 ml 100 ml Tube Feeding Residual Discard 0 ml # Bowel Movements 0 1 0 0 Result Diagram: 12/11/16 0325 12/14/16 0259 Imaging Last Impressions Upper Extremity Ultrasound 12/11/16 1506 Signed Impressions: Service Date/Time: Sunday, December 11, 2016 18:00 - CONCLUSION: Superficial thrombophlebitis, extensive edema and nonspecific fluid collections in the subcutaneous tissues. Shawn Reyes MD Head CT 12/11/16 0000 Signed Impressions: Service Date/Time: Sunday, December 11, 2016 20:00 - CONCLUSION: Slight atrophic and small vessel ischemic changes without any evidence for acute hemorrhage or mass effect. Shawn Reyes MD Renal Ultrasound 12/09/16 0000 Signed Impressions: Service Date/Time: Friday, December 09, 2016 15:16 - CONCLUSION: 1. 8.4 cm mass lesion at the base of the bladder. This may represent an intrinsic mass of the bladder versus a prominent anterior lobe of the prostate. 2. Otherwise, urinary bladder is partially decompressed with a Lipscomb catheter. 3. Both kidneys are sonographically normal. Roby Horta MD Chest X-Ray 12/05/16 1700 Signed Impressions: Service Date/Time: November 18:52 - CONCLUSION: Left lung/hemithorax remain essentially completely opacified and with volume loss. Patchy consolidation on the right, mainly at the base. Masslike area right mid lung potentially some loculated pleural fluid. Paul Sinha MD Objective Remarks GENERAL: This is a well-nourished, well-developed patient, in no apparent distress. CARDIOVASCULAR: Regular rate and regular rhythm without murmurs, gallops, or rubs. RESPIRATORY: Clear to auscultation. Breath sounds equal bilaterally. No wheezes , rales, or rhonchi. GASTROINTESTINAL: Abdomen soft, non-tender, nondistended. Normal, active bowel sounds MUSCULOSKELETAL: Extremities without clubbing, cyanosis, or edema. NEURO: Alert & Oriented x4 to person, place, time, situation. Moves all ext x4 Procedures 12/11- EGD- esophagitis, gastritis, duodenitis PEG placement Medications and IVs Current Medications Sodium Chloride (NS 1000 ml Inj) 1,000 ml @ 75 mls/hr [id number] IV Last administered on 12/06/16 05:59; Start 12/05/16 at 18:00; Stop 12/06/16 at 12:03 ; Status DC IV Flush (NS Flush) 2 ml UNSCH PRN FLUSH FLUSH AFTER USING IV ACCESS; Start at 17:00 IV Flush (NS Flush) 2 ml BID FLUSH Last administered on 12/14/16 20:42; Start 12/05/16 at 21:00 Ondansetron HCl (Zofran Inj) 4 mg Q6H PRN IVP NAUSEA OR VOMITING; Start at 18:00 Bisacodyl (Dulcolax Supp) 10 mg DAILY PRN [place] CONSTIPATION; Start 12/05/16 at 18 :00 Docusate Sodium (Colace) 100 mg Q12H PO Last administered on 12/14/16 20:41; Start 12/05/16 at 18:00 Naloxone HCl (Narcan Inj) 0.4 mg UNSCH PRN IV SEE LABEL COMMENTS; Start at 17:00 Phenytoin (Dilantin) 300 mg BID PO Last administered on 12/07/16 20:57; Start 12/05/16 at 21:00; Stop 12/08/16 at 10:47; Status DC Terazosin HCl (Hytrin) 1 mg HS PO ; Start 12/05/16 at 21:00; Stop 12/05/16 at 21 :00; Status DC Enalaprilat (Vasotec Inj) 2.5 mg Q6H PRN IV PUSH SBP>160, DBP>90 Last administered on 12/05/16 18:35; Start 12/05/16 at 18:00 Ferrous Sulfate (Ferrous Sulfate Liq) 300 mg DAILY PO Last administered on 12/15 08:38; Start 12/06/16 at 09:00 Doxazosin Mesylate (Cardura) 8 mg HS PO Last administered on 12/14/16 20:41; Start 12/05/16 at 21:00 Atorvastatin Calcium (Lipitor) 40 mg HS PO Last administered on 12/14/16 20:41 ; Start 12/05/16 at 21:00 Furosemide (Lasix Liq) 40 mg DAILY TUBE Last administered on 12/15/16 08:39; Start 12/06/16 at 09:00 Senna/Docusate Sodium (Jacinda-Colace) 2 tab BID PRN PO CONSTIPATION; Start at 19:45 Lactulose (Lactulose Liq) 30 ml TID PRN PO CONSTIPATION; Start 12/05/16 at 19: 45 Bisacodyl (Dulcolax Supp) 10 mg DAILY PRN [place] CONSTIPATION; Start 12/05/16 at 19 :45; Status Cancel Magnesium Hydroxide (Milk Of Magnesia Liq) 30 ml Q6H PRN PO CONSTIPATION; Start 12/05/16 at 19:45 Furosemide 20 mg 20 mg ONCE ONCE IV PUSH ; Start 12/06/16 at 07:00; Stop at 07:01; Status DC Sodium Chloride (NS 250 ml Inj) 250 ml @ 15 mls/hr ONCE ONCE IV Last administered on 12/06/16 11:00; Start 12/06/16 at 08:45; Stop 12/07/16 at 01:24 ; Status DC Acetaminophen (Tylenol) 650 mg Q4H PRN PO SEE LABEL COMMENTS; Start 12/06/16 at 08:45; Stop 12/06/16 at 12:46; Status DC Diphenhydramine HCl (Benadryl) 25 mg Q4H PRN PO SEE LABEL COMMENTS; Start 12/06 at 08:45; Stop 12/06/16 at 12:46; Status DC Furosemide (Lasix Inj) 20 mg ONCE ONCE IV ; Start 12/06/16 at 08:45; Stop 12/06 at 08:46; Status DC Prednisone 20 mg 20 mg ONCE ONCE PO Last administered on 12/06/16 15:36; Start 12/06/16 at 13:00; Stop 12/06/16 at 13:01; Status DC Sodium Chloride (NS 1000 ml Inj) 1,000 ml @ 0 mls/hr Q0M PRN IV For Prime & Rinse Back Last administered on 12/12/16 09:33; Start 12/06/16 at 12:11 Heparin Sodium (Porcine) 8000 units 8,000 units UNSCH PRN IVF WITH DIALYSIS; Start 12/06/16 at 12:15 Sodium Chloride 1,000 ml @ 200 mls/hr Q5H PRN IV WITH DIALYSIS; Start 12/06/16 at 12:11 Sodium Chloride (NS 1000 ml Inj) 1,000 ml @ 0 mls/hr Q0M PRN IV WITH DIALYSIS; Start 12/06/16 at 12:11 Mannitol (Mannitol Inj) 12.5 gm UNSCH PRN IV WITH DIALYSIS; Start 12/06/16 at 12:15 Albumin Human (Albumin 25% Inj) 25 gm UNSCH PRN IV WITH DIALYSIS; Start at 12:15 IV Flush (NS Flush) 5 ml UNSCH PRN IVF WITH DIALYSIS; Start 12/06/16 at 12:15 Heparin Sodium (Porcine) (Heparin Inj) UNSCH PRN .XX WITH DIALYSIS Last administered on 12/14/16 16:39; Start 12/06/16 at 12:15 Gentamicin Sulfate (Gentamicin (Dialysis) Inj) 20 mg UNSCH PRN IV WITH DIALYSIS Last administered on 12/14/16 16:39; Start 12/06/16 at 12:15 Ondansetron HCl (Zofran Inj) 4 mg UNSCH PRN IV WITH DIALYSIS; Start 12/06/16 at 12:15 Acetaminophen (Tylenol) 650 mg UNSCH PRN PO for headach, pain, temp > 101F Last administered on 12/14/16 07:54; Start 12/06/16 at 12:15 Diphenhydramine HCl (Benadryl) 25 mg UNSCH PRN PO for hives/itching/anaphylaxis ; Start 12/06/16 at 12:15 Nitroglycerin (Nitrostat Sl) 0.4 mg UNSCH PRN SL CHEST PAIN; Start 12/06/16 at 12:15 Clonidine (Catapres) 0.1 mg UNSCH PRN PO for BP > 180/100 X 2 readings Last administered on 12/14/16 07:54; Start 12/06/16 at 12:15 Epoetin Blanco (Epogen Inj) 10,000 units UNSCH PRN IV WITH DIALYSIS Last administered on 12/14/16 16:39; Start 12/06/16 at 12:15 Gelatin (Gelfoam 12 Mm/7 Mm Top) 1 foam UNSCH PRN TOP SEE LABEL COMMENTS; Start 12/06/16 at 12:15 Furosemide (Lasix Inj) 20 mg ONCE ONCE IV Last administered on 12/07/16 00:18 ; Start 12/07/16 at 00:30; Stop 12/07/16 at 00:31; Status DC Megestrol Acetate (Megace Liq) 400 mg ONCE ONCE PO Last administered on 18:19; Start 12/07/16 at 14:00; Stop 12/07/16 at 14:01; Status DC Megestrol Acetate (Megace Liq) 400 mg DAILY PO Last administered on 12/15/16 08:39; Start 12/08/16 at 09:00 Heparin Sodium (Porcine) (Heparin Inj) 5,000 units Q12HR SQ Last administered on 12/15/16 08:39; Start 12/08/16 at 21:00 Phenytoin 300 mg 300 mg Q12HR PO Last administered on 12/15/16 08:39; Start at 21:00 Iron Sucrose 100 mg/Sodium Chloride 105 ml @ 105 mls/hr DAILY IV Last administered on 12/09/16 10:24; Start 12/09/16 at 09:00; Stop 12/11/16 at 09:59 ; Status DC Cefazolin Sodium/ Sodium Chloride (Ancef Inj/NS Inj) 100 ml @ 200 mls/hr [employer] IV ; Start 12/10/16 at 13:30; Stop 12/13/16 at 13:29; Status DC Cefazolin Sodium (Ancef Inj) 1,000 mg STK-MED ONCE IV Last administered on 12/11 10:37; Start 12/11/16 at 10:37; Stop 12/11/16 at 11:05; Status DC Propofol (Diprivan 200 Mg/20 ml Inj) 150 mg STK-MED ONCE IV ; Start 12/11/16 at 10:40; Stop 12/11/16 at 11:10; Status DC Levofloxacin (Levaquin) 250 mg Q48H PO Last administered on 12/13/16 14:34; Start 12/11/16 at 16:00 Phenylephrine HCl (Neosynephrine/ NS 1000 Mcg/10ml Syr) 100 mcg STK-MED ONCE IV ; Start 12/11/16 at 10:45; Stop 12/13/16 at 13:03; Status DC Date of Insertion: Nov 15, 2016 A/P Assessment and Plan A/P 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 S/P extubation Complicated stay with occluded stent in the left main bronchus. Hematology ff - needs outpatient follow-up ESRD requiring HD. US kidney at [facility] rev findings consistent with chronic kidney disease. Tunnelled dialysis catheter was placed 12/04/16 ( right) at [facility]. non oliguric- awaiting renal recovery on Lasix po daily Nephrology ff- currently on HD BPH continue doxazosin 8 mg qhs . Bladder Mass Urology ff- plan for cystoscopy when patient stronger in the future- reconsult them if patient in optimum condition for surgery/procedure - will require anesthesia Respiratory failure requiring O2 supplement - now improved Duonebs as need. S/P tx for PNA bronch sputum klebsiella + , treated at [facility] and finished course of abx per records). Blood cx were negative 11/07/16 ECHO 55-60% Iron deficiency Anemia- low Iron stores S/P EGD- gastritis, duodenitis, esophagitis S/P PEG 12/11 S/P IV Iron . PPI Nutrition :Nephro TF at night. . on MegaACE- needs to be stronger for future studies and work up- HTN- Continue atenolol 25 mg po bid Left UE superficial thrombophlebitis-improving elevate Left UE above the heart at all times NO IV access.on this arm started on Levaquin.- 12/11- 250 mg po q 48- monitor warm compress UTI- +Pyuria- C with zabrina on Levaquin 250 mg daily for above. repeat UC pending. Seizure- Continue Dilantin. Seizure precautions. Stable. DVT ppx with SCD/TEDs Consulted case management/ff - will need SNF PT/OT/ daily- deconditioning Regina Garcia MD Dec 15, 2016 10:30 Regina Garcia MD Dec 15, 2016 10:30
--- NOTE | 2016-12-15 15:21 | HHI.NPPN ---
Subjective General Problems: Anemia, Edema Renal Failure: Acute History of Present Illness 71 y/o male pt. [place] [facility] [place] [facility] with renal failure from ATN on HD Review of Systems General Constitutional: Fatigue Objective Data Data 12/14/16 12/15/16 19:00 07:00 Intake Total 600 ml 995 ml Output Total 600 ml 500 ml Balance 0 ml 495 ml Intake Oral 600 ml 240 ml IV Total 0 ml 0 ml Tube Feeding 725 ml Tube Irrigant 30 ml Output Urine Total 600 ml 500 ml Tube Feeding Residual Discard 0 ml # Bowel Movements 1 0 Vital Signs Date Time Temp Pulse Resp B/P Pulse Ox O2 Delivery O2 Flow Rate FiO2 12/15/16 12:00 99.0 94 20 134/65 94 12/15/16 08:00 98.9 93 20 146/67 93 12/15/16 03:55 97.3 87 20 132/59 98 12/15/16 00:00 98.2 95 22 144/65 98 12/14/16 22:12 98 Nasal Cannula 3.00 12/14/16 20:00 98.8 95 22 152/70 95 12/14/16 19:02 88 -: 12/11/16 0325 12/14/16 0259 Tubes & Lines: Lipscomb Tubes & Lines Comment PEG, Physical Exam General Appearance: Well Developed, No Acute Distress, Comfortable Eyes Eye Exam: Pupils Equal, Pupils Reactive Throat Throat Exam: Oral Mucosa [place] & Moist Pulmonary Resp Exam: No Distress, Crackles, Rhonchi, Decreased Bases, Diminished Breath Sounds Cardiology CV Exam: Regular, Normal Sinus Rhythm, Murmur Gastrointestinal/Abdomen GI Exam: Soft, Non-Tender, Bowel Sounds Present, Distended Genitourinary Exam: Clear Urine Musculoskeletal MS Exam: Normal Tone Integumentary Skin Exam: Warm, Dry Extremeties Extremities Exam: No Edema, Pedal Pulses Palpable Neurologic Neuro Exam: Alert, Awake, Oriented, Speech Clear, Moving All Extremities Psychiatric Psych Exam: Appropriate Responses Assessment/Plan Discussed Condition With: Patient Assessment Summary: TODD/Acute Renal Failure, Acute Tubular Necrosis Problem List: (1) Acute renal failure Plan: He had creatinine 0.77 in October Renal failure ATN due to PEA arrest He is on HD per TTS schedule. hemodialysis done yesterday [facility] [address] Borjas to follow follow renal function daily await renal recovery avoid nephrotoxins, no IVF required (2) Bronchiolar obstruction Plan: s/p stent placement, dx of squamous cell carcinoma med oncology following (3) Mass of left lung Plan: oncology has evaluated, appreciate their recommendations he is unstable for treatment at this time (4) Acute respiratory failure Plan: extubated, respiratory status is better on tube feeding and oral nutrition, caloric intake not sufficiency s/p PEG placement; dobhoff removed speech therapy following (5) Anemia Plan: Has been seen by Hematology. transfused last week, has iron deficiency, given Venofer Epogen with HD Hemoccult positive , cannot tolerate bowel prep for colonoscopy (6) Bladder mass Plan: urology following, bladder US report noted he will need cystoscopy with TURBT Plan patient was seen and examined. Agree with above assessment plan. Monitor urine output. Labs tomorrow. Maddie Hobbs MD Dec 15, 2016 15:21
[2016-12-15] MEDS: LEVOFLOXACIN 250 MG TAB PO SCH (16:06)
[2016-12-15] MEDS: DOCUSATE SODIUM 100 MG CAP PO SCH (17:22)
[2016-12-15] MEDS: DOXAZOSIN MESYLATE 4 MG TAB PO SCH (21:01)
[2016-12-15] MEDS: ATORVASTATIN 40 MG TAB PO SCH (21:01)
[2016-12-16] VITALS (7 sets, daily range): BP systolic 132–157; BP diastolic 65–73; PULSE 71–96; RESP 17–19; TEMP 97.7–99.2; O2SAT 91–99
[2016-12-16] MEDS: DOCUSATE SODIUM 100 MG CAP PO SCH ×2 (06:12→18:00)
[2016-12-16] MEDS: FERROUS SULFATE 300 MG /5ML UDC PO SCH (08:14)
[2016-12-16] MEDS: PHENYTOIN SUSP 100 MG/4 ML CUP PO SCH ×2 (08:14→21:12)
[2016-12-16] MEDS: FUROSEMIDE 40 MG/5 ML UNIT DOSE CUP TUBE SCH (08:14)
[2016-12-16] MEDS: MEGESTROL ACETATE SUSP 400 MG/10 ML CUP PO SCH (08:14)
[2016-12-16] MEDS: SODIUM CHLORIDE 0.9% FLUSH 5 ML FLUSH FLUSH SCH ×2 (08:15→21:12)
[2016-12-16] MEDS: HEPARIN SODIUM - SQ 10,000 UNITS/ML VIAL SQ SCH ×2 (08:15→21:13)
[2016-12-16 11:01] LABS: BICARBONATE 32.8 MEQ/L (21.0-32.0); POTASSIUM 3.7 MEQ/L (3.5-5.1)
--- NOTE | 2016-12-16 11:29 | HHI.NPPN ---
Subjective General Problems: Anemia, Edema Renal Failure: Acute History of Present Illness 71 y/o male pt. Transferred to [facility] [place] [place] from [facility] with renal failure from AT on HD Interval History Sitting up in bed. No acute issues. He is non oliguric. (Marina Mcgovern) Review of Systems General Constitutional: Fatigue (Marina Mcgovern) Objective Data Data 12/15/16 12/16/16 19:00 07:00 Intake Total 600 ml 1148 ml Output Total 400 ml 450 ml Balance 200 ml 698 ml Intake Oral 600 ml 360 ml IV Total 0 ml 0 ml Tube Feeding 758 ml Tube Irrigant 30 ml Output Urine Total 400 ml 450 ml # Bowel Movements 0 0 Vital Signs Date Time Temp Pulse Resp B/P Pulse Ox O2 Delivery O2 Flow Rate FiO2 12/16/16 09:19 96 Nasal Cannula 3.00 12/16/16 08:00 98.1 71 18 149/72 96 12/16/16 03:36 98.3 91 18 132/65 98 12/16/16 00:00 97.7 96 18 146/69 97 12/15/16 20:09 95 Nasal Cannula 3.00 12/15/16 20:00 97.0 89 20 157/76 97 12/15/16 19:56 92 12/15/16 16:00 99.1 87 20 163/77 96 12/15/16 12:00 99.0 94 20 134/65 94 (Marina Mcgovern) -: 12/16/16 1026 Imaging Last Impressions Upper Extremity Ultrasound 12/11/16 1506 Signed Impressions: Service Date/Time: Sunday, December 11, 2016 18:00 - CONCLUSION: Superficial thrombophlebitis, extensive edema and nonspecific fluid collections in the subcutaneous tissues. Shawn Reyes MD Head CT 12/11/16 0000 Signed Impressions: Service Date/Time: Sunday, December 11, 2016 20:00 - CONCLUSION: Slight atrophic and small vessel ischemic changes without any evidence for acute hemorrhage or mass effect. Shawn Reyes MD Renal Ultrasound 12/09/16 0000 Signed Impressions: Service Date/Time: Friday, December 09, 2016 15:16 - CONCLUSION: 1. 8.4 cm mass lesion at the base of the bladder. This may represent an intrinsic mass of the bladder versus a prominent anterior lobe of the prostate. 2. Otherwise, urinary bladder is partially decompressed with a Lipscomb catheter. 3. Both kidneys are sonographically normal. Roby Horta MD Chest X-Ray 12/05/16 1700 Signed Impressions: Service Date/Time: November 18:52 - CONCLUSION: Left lung/hemithorax remain essentially completely opacified and with volume loss. Patchy consolidation on the right, mainly at the base. Masslike area right mid lung potentially some loculated pleural fluid. Paul Sinha MD Tubes & Lines: Lipscomb Tubes & Lines Comment PEG, (Froilan,Marina B. RELATIONSHIP CONSULTANT) Physical Exam General Appearance: Well Developed, No Acute Distress, Comfortable (FroilanMarina B. RELATIONSHIP CONSULTANT) Eyes Eye Exam: Pupils Equal, Pupils Reactive (Froilan,Marina B. RELATIONSHIP CONSULTANT) Throat Throat Exam: Oral Mucosa [place] & Moist (FroilanMarina B. RELATIONSHIP CONSULTANT) Pulmonary Resp Exam: No Distress, Crackles, Rhonchi, Decreased Bases, Diminished Breath Sounds (Froilan,Marina B. RELATIONSHIP CONSULTANT) Cardiology CV Exam: Regular, Normal Sinus Rhythm, Murmur (FroilanMarina B. RELATIONSHIP CONSULTANT) Gastrointestinal/Abdomen GI Exam: Soft, Non-Tender, Bowel Sounds Present, Distended (FroilanMarina B. RELATIONSHIP CONSULTANT) Genitourinary Exam: Clear Urine (FroilanMarina B. RELATIONSHIP CONSULTANT) Musculoskeletal MS Exam: Normal Tone (FroilanMarina B. RELATIONSHIP CONSULTANT) Integumentary Skin Exam: Warm, Dry (FroilanMarina B. RELATIONSHIP CONSULTANT) Extremeties Extremities Exam: No Edema, Pedal Pulses Palpable Extremeties Remarks left arm edematous (FroilanMarina B. RELATIONSHIP CONSULTANT) Neurologic Neuro Exam: Alert, Awake, Oriented, Speech Clear, Moving All Extremities ( FroilanMarina B. RELATIONSHIP CONSULTANT) Psychiatric Psych Exam: Appropriate Responses (FroilanMarina B. RELATIONSHIP CONSULTANT) Assessment/Plan Discussed Condition With: Patient Assessment Summary: TODD/Acute Renal Failure, Acute Tubular Necrosis Problem List: (1) Acute renal failure Plan: He had creatinine 0.77 in October Renal failure ATN due to PEA arrest He is on HD per TTS schedule. Had HD Friday, has permcath that functions well daily renal panel, await renal recovery HD if needed avoid nephrotoxins, no IVF required (2) Bronchiolar obstruction Plan: s/p stent placement, dx of squamous cell carcinoma med oncology following (3) Mass of left lung Plan: oncology has evaluated, appreciate their recommendations he is unstable for treatment at this time (4) Acute respiratory failure Plan: extubated, respiratory status is better on tube feeding and oral nutrition, caloric intake not sufficiency s/p PEG placement speech therapy following (5) Anemia Plan: Has been seen by Hematology. transfused last week, has iron deficiency, given Venofer Epogen with HD Hemoccult positive , cannot tolerate bowel prep for colonoscopy (6) Bladder mass Plan: urology following, bladder US report noted he will need cystoscopy with TURBT (Marina Mcgovern) Plan patient was seen and examined. Monitor urine output and renal function. Watch for signs of renal recovery. (Willian Borjas MD) Marina Mcgovern Dec 16, 2016 11:28 Willian Borjas MD Dec 17, 2016 14:27
[2016-12-16] MEDS ORDERED: Custom Consult Pharmacy 1 EA OTHER SCH (11:30)
--- NOTE | 2016-12-16 11:31 | HHI.PR ---
Subjective Remarks resting comfortably with no distress. denies sob or pain. family at the bedside. Objective Vitals Vital Signs Date Time Temp Pulse Resp B/P Pulse Ox O2 Delivery O2 Flow Rate FiO2 12/16/16 09:19 96 Nasal Cannula 3.00 12/16/16 08:00 98.1 71 18 149/72 96 12/16/16 03:36 98.3 91 18 132/65 98 12/16/16 00:00 97.7 96 18 146/69 97 12/15/16 20:09 95 Nasal Cannula 3.00 12/15/16 20:00 97.0 89 20 157/76 97 12/15/16 19:56 92 12/15/16 16:00 99.1 87 20 163/77 96 12/15/16 12:00 99.0 94 20 134/65 94 I/O 12/15/16 12/15/16 12/15/16 12/16/16 12/16/16 12/16/16 07:00 15:00 23:00 07:00 15:00 23:00 Intake Total 875 ml 600 ml 240 ml 908 ml Output Total 100 ml 400 ml 275 ml 175 ml Balance 775 ml 200 ml -35 ml 733 ml Intake Oral 120 ml 600 ml 240 ml 120 ml IV Total 0 ml 0 ml 0 ml Tube Feeding 725 ml 758 ml Tube Irrigant 30 ml 30 ml Output Urine Total 100 ml 400 ml 275 ml 175 ml # Bowel Movements 0 0 0 0 Result Diagram: 12/16/16 1026 Imaging Last Impressions Upper Extremity Ultrasound 12/11/16 1506 Signed Impressions: Service Date/Time: Sunday, December 11, 2016 18:00 - CONCLUSION: Superficial thrombophlebitis, extensive edema and nonspecific fluid collections in the subcutaneous tissues. Shawn Reyes MD Head CT 12/11/16 0000 Signed Impressions: Service Date/Time: Sunday, December 11, 2016 20:00 - CONCLUSION: Slight atrophic and small vessel ischemic changes without any evidence for acute hemorrhage or mass effect. Shawn Reyes MD Renal Ultrasound 12/09/16 0000 Signed Impressions: Service Date/Time: Friday, December 09, 2016 15:16 - CONCLUSION: 1. 8.4 cm mass lesion at the base of the bladder. This may represent an intrinsic mass of the bladder versus a prominent anterior lobe of the prostate. 2. Otherwise, urinary bladder is partially decompressed with a Lipscomb catheter. 3. Both kidneys are sonographically normal. Roby Horta MD Chest X-Ray 12/05/16 1700 Signed Impressions: Service Date/Time: November 18:52 - CONCLUSION: Left lung/hemithorax remain essentially completely opacified and with volume loss. Patchy consolidation on the right, mainly at the base. Masslike area right mid lung potentially some loculated pleural fluid. Paul Sinha MD Objective Remarks GENERAL: This is a well-nourished, well-developed patient, in no apparent distress. CARDIOVASCULAR: Regular rate and regular rhythm without murmurs, gallops, or rubs. RESPIRATORY: Clear to auscultation. Breath sounds equal bilaterally. No wheezes , rales, or rhonchi. GASTROINTESTINAL: Abdomen soft, non-tender, nondistended. Normal, active bowel sounds MUSCULOSKELETAL: Extremities without clubbing, cyanosis, or edema. NEURO: Alert & Oriented x4 to person, place, time, situation. Moves all ext x4 Procedures 12/11- EGD- esophagitis, gastritis, duodenitis PEG placement Medications and IVs Current Medications Sodium Chloride (NS 1000 ml Inj) 1,000 ml @ 75 mls/hr [id number] IV Last administered on 12/06/16 05:59; Start 12/05/16 at 18:00; Stop 12/06/16 at 12:03 ; Status DC IV Flush (NS Flush) 2 ml UNSCH PRN FLUSH FLUSH AFTER USING IV ACCESS; Start at 17:00 IV Flush (NS Flush) 2 ml BID FLUSH Last administered on 12/16/16 08:15; Start 12/05/16 at 21:00 Ondansetron HCl (Zofran Inj) 4 mg Q6H PRN IVP NAUSEA OR VOMITING; Start at 18:00 Bisacodyl (Dulcolax Supp) 10 mg DAILY PRN TN CONSTIPATION; Start 12/05/16 at 18 :00 Docusate Sodium (Colace) 100 mg Q12H PO Last administered on 12/16/16 06:12; Start 12/05/16 at 18:00 Naloxone HCl (Narcan Inj) 0.4 mg UNSCH PRN IV SEE LABEL COMMENTS; Start at 17:00 Phenytoin (Dilantin) 300 mg BID PO Last administered on 12/07/16 20:57; Start 12/05/16 at 21:00; Stop 12/08/16 at 10:47; Status DC Terazosin HCl (Hytrin) 1 mg HS PO ; Start 12/05/16 at 21:00; Stop 12/05/16 at 21 :00; Status DC Enalaprilat (Vasotec Inj) 2.5 mg Q6H PRN IV PUSH SBP>160, DBP>90 Last administered on 12/05/16 18:35; Start 12/05/16 at 18:00 Ferrous Sulfate (Ferrous Sulfate Liq) 300 mg DAILY PO Last administered on 12/16 08:14; Start 12/06/16 at 09:00 Doxazosin Mesylate (Cardura) 8 mg HS PO Last administered on 12/15/16 21:01; Start 12/05/16 at 21:00 Atorvastatin Calcium (Lipitor) 40 mg HS PO Last administered on 12/15/16 21:01 ; Start 12/05/16 at 21:00 Furosemide (Lasix Liq) 40 mg DAILY TUBE Last administered on 12/16/16 08:14; Start 12/06/16 at 09:00 Senna/Docusate Sodium (Jacinda-Colace) 2 tab BID PRN PO CONSTIPATION; Start at 19:45 Lactulose (Lactulose Liq) 30 ml TID PRN PO CONSTIPATION; Start 12/05/16 at 19: 45 Bisacodyl (Dulcolax Supp) 10 mg DAILY PRN TN CONSTIPATION; Start 12/05/16 at 19 :45; Status Cancel Magnesium Hydroxide (Milk Of Magnesia Liq) 30 ml Q6H PRN PO CONSTIPATION; Start 12/05/16 at 19:45 Furosemide 20 mg 20 mg ONCE ONCE IV PUSH ; Start 12/06/16 at 07:00; Stop at 07:01; Status DC Sodium Chloride (NS 250 ml Inj) 250 ml @ 15 mls/hr ONCE ONCE IV Last administered on 12/06/16 11:00; Start 12/06/16 at 08:45; Stop 12/07/16 at 01:24 ; Status DC Acetaminophen (Tylenol) 650 mg Q4H PRN PO SEE LABEL COMMENTS; Start 12/06/16 at 08:45; Stop 12/06/16 at 12:46; Status DC Diphenhydramine HCl (Benadryl) 25 mg Q4H PRN PO SEE LABEL COMMENTS; Start 12/06 at 08:45; Stop 12/06/16 at 12:46; Status DC Furosemide (Lasix Inj) 20 mg ONCE ONCE IV ; Start 12/06/16 at 08:45; Stop 12/06 at 08:46; Status DC Prednisone 20 mg 20 mg ONCE ONCE PO Last administered on 12/06/16 15:36; Start 12/06/16 at 13:00; Stop 12/06/16 at 13:01; Status DC Sodium Chloride (NS 1000 ml Inj) 1,000 ml @ 0 mls/hr Q0M PRN IV For Prime & Rinse Back Last administered on 12/12/16 09:33; Start 12/06/16 at 12:11 Heparin Sodium (Porcine) 8000 units 8,000 units UNSCH PRN IVF WITH DIALYSIS; Start 12/06/16 at 12:15 Sodium Chloride 1,000 ml @ 200 mls/hr Q5H PRN IV WITH DIALYSIS; Start 12/06/16 at 12:11 Sodium Chloride (NS 1000 ml Inj) 1,000 ml @ 0 mls/hr Q0M PRN IV WITH DIALYSIS; Start 12/06/16 at 12:11 Mannitol (Mannitol Inj) 12.5 gm UNSCH PRN IV WITH DIALYSIS; Start 12/06/16 at 12:15 Albumin Human (Albumin 25% Inj) 25 gm UNSCH PRN IV WITH DIALYSIS; Start at 12:15 IV Flush (NS Flush) 5 ml UNSCH PRN IVF WITH DIALYSIS; Start 12/06/16 at 12:15 Heparin Sodium (Porcine) (Heparin Inj) UNSCH PRN .XX WITH DIALYSIS Last administered on 12/14/16 16:39; Start 12/06/16 at 12:15 Gentamicin Sulfate (Gentamicin (Dialysis) Inj) 20 mg UNSCH PRN IV WITH DIALYSIS Last administered on 12/14/16 16:39; Start 12/06/16 at 12:15 Ondansetron HCl (Zofran Inj) 4 mg UNSCH PRN IV WITH DIALYSIS; Start 12/06/16 at 12:15 Acetaminophen (Tylenol) 650 mg UNSCH PRN PO for headach, pain, temp > 101F Last administered on 12/14/16 07:54; Start 12/06/16 at 12:15 Diphenhydramine HCl (Benadryl) 25 mg UNSCH PRN PO for hives/itching/anaphylaxis ; Start 12/06/16 at 12:15 Nitroglycerin (Nitrostat Sl) 0.4 mg UNSCH PRN SL CHEST PAIN; Start 12/06/16 at 12:15 Clonidine (Catapres) 0.1 mg UNSCH PRN PO for BP > 180/100 X 2 readings Last administered on 12/14/16 07:54; Start 12/06/16 at 12:15 Epoetin Blanco (Epogen Inj) 10,000 units UNSCH PRN IV WITH DIALYSIS Last administered on 12/14/16 16:39; Start 12/06/16 at 12:15 Gelatin (Gelfoam 12 Mm/7 Mm Top) 1 foam UNSCH PRN TOP SEE LABEL COMMENTS; Start 12/06/16 at 12:15 Furosemide (Lasix Inj) 20 mg ONCE ONCE IV Last administered on 12/07/16 00:18 ; Start 12/07/16 at 00:30; Stop 12/07/16 at 00:31; Status DC Megestrol Acetate (Megace Liq) 400 mg ONCE ONCE PO Last administered on 18:19; Start 12/07/16 at 14:00; Stop 12/07/16 at 14:01; Status DC Megestrol Acetate (Megace Liq) 400 mg DAILY PO Last administered on 12/16/16 08:14; Start 12/08/16 at 09:00 Heparin Sodium (Porcine) (Heparin Inj) 5,000 units Q12HR SQ Last administered on 12/16/16 08:15; Start 12/08/16 at 21:00 Phenytoin 300 mg 300 mg Q12HR PO Last administered on 12/16/16 08:14; Start at 21:00 Iron Sucrose 100 mg/Sodium Chloride 105 ml @ 105 mls/hr DAILY IV Last administered on 12/09/16 10:24; Start 12/09/16 at 09:00; Stop 12/11/16 at 09:59 ; Status DC Cefazolin Sodium/ Sodium Chloride (Ancef Inj/NS Inj) 100 ml @ 200 mls/hr SCREEN PRINTER HELPER IV ; Start 12/10/16 at 13:30; Stop 12/13/16 at 13:29; Status DC Cefazolin Sodium (Ancef Inj) 1,000 mg STK-MED ONCE IV Last administered on 12/11 10:37; Start 12/11/16 at 10:37; Stop 12/11/16 at 11:05; Status DC Propofol (Diprivan 200 Mg/20 ml Inj) 150 mg STK-MED ONCE IV ; Start 12/11/16 at 10:40; Stop 12/11/16 at 11:10; Status DC Levofloxacin (Levaquin) 250 mg Q48H PO Last administered on 12/15/16 16:06; Start 12/11/16 at 16:00 Phenylephrine HCl (Neosynephrine/ NS 1000 Mcg/10ml Syr) 100 mcg STK-MED ONCE IV ; Start 12/11/16 at 10:45; Stop 12/13/16 at 13:03; Status DC Date of Insertion: Nov 15, 2016 A/P Assessment and Plan A/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 S/P extubation Complicated stay with occluded stent in the left main bronchus. Hematology ff - needs outpatient follow-up ESRD requiring HD. US kidney at [facility] rev findings consistent with chronic kidney disease. Tunnelled dialysis catheter was placed 12/04/16 ( right) at [facility]. non oliguric- awaiting renal recovery on Lasix po daily Nephrology ff- currently on HD BPH continue doxazosin 8 mg qhs . Bladder Mass Urology ff- plan for cystoscopy when patient stronger in the future- reconsult them if patient in optimum condition for surgery/procedure - will require anesthesia Respiratory failure requiring O2 supplement - now improved Duonebs as need. S/P tx for PNA bronch sputum klebsiella + , treated at [facility] and finished course of abx per records). Blood cx were negative 11/07/16 ECHO 55-60% Iron deficiency Anemia- low Iron stores S/P EGD- gastritis, duodenitis, esophagitis S/P PEG 12/11 S/P IV Iron . PPI Nutrition :Nephro TF at night. . on MegaACE- needs to be stronger for future studies and work up- HTN- Continue atenolol 25 mg po bid Left UE superficial thrombophlebitis-improving elevate Left UE above the heart at all times NO IV access.on this arm started on Levaquin.- 12/11- 250 mg po q 48- monitor warm compress UTI- +Pyuria- C with zabrina start Diflucan. Seizure- Continue Dilantin. Seizure precautions. Stable. DVT ppx with SCD/TEDs Consulted case management/ff - will need SNF PT/OT/ daily- deconditioning d/w the patient and family at the bedside; will consult palliative care per my discussion with the family. Regina Garcia MD Dec 16, 2016 11:31
[2016-12-16] MEDS: FLUCONAZOLE 100 MG TAB PO SCH (13:55)
--- NOTE | 2016-12-16 16:09 | PD.CONS ---
Consult Service Palliative Care Consult Requested By Dr Vera . Primary Care Physician [facility] Reason for Consultation a. To assist with evaluation and management of symptoms including: dyspnea, weakness, malnutrition b. To assist medical decision maker(s) with: better understanding of current medical conditions; weighing benefits/burdens of medical treatment options; making medical treatment decisions. HPI History of Present Illness This 71-year-old patient presented to the hospital here 12/05/16 as a transfer from [facility] in [place]. He has recently been diagnosed (10/2016 ) with a large obstructive mass in the main bronchus pathology positive squamous cell carcinoma, originally presenting [facility] with complaints of shortness of breath, hemoptysis. Patient required subsequent intubation and mechanical ventilation, CVT recommended transfer to [facility] in [place]. During that course he has undergone bronchoscopy, debulking of large mass involving left mainstem bronchus, stenting left mainstem bronchus, patient had been intubated and was difficult to wean off mechanical vent, this hospital course was complicated with a PEA arrest 11/08/16, and acute renal failure requiring hemodialysis. He required placement of an NG feeding tube. Patient stabilized and transferred back to [facility]. He is now severely deconditioned and bedbound. He is still been not able to be stage for his cancer, which cannot be done until he is stable, stronger. * Oncology notes patient will need staging of underlying squamous cell carcinoma of the lung however his acute issues need to be addressed before able to move forward with staging and treatment of lung carcinoma. Oncology recommends stabilizing renal function, establishment with retail pharmacy technician, addressing nutritional status as patient is completely depleted, this will include nutrition evaluation as well as speech therapy, needs PT and OT to improve functional status, once he is functional can be evaluated for staging and possible treatment interventions. At this point in time he is too weak to undergo any disease directed therapy. * GI has been consulted for Hemoccult positive stool, anemia; no acute bleeding noted no other GI symptoms , continue supportive treatment, PPI, monitor H&H, transfuse as necessary, hold off on EGD pending results from calorie count to determine if PEG tube needed. Sitter placing PEG tube at same time his EEG colonoscopy. * Nephrology has been consulted--of note patient creatinine is high as 6 post arrest, was started on dialysis shortly after rest. He is continued to have ongoing hemodialysis, renal ultrasound indicative bladder mass that has not been evaluated by urology as of yet. Acute renal failure presumably from ATN due to PEA arrest he is making good urine. Nephrology recommends continue Lasix. Creatinine trends up. Will likely continue HD awaiting renal recovery. * Status post EGD 12/11--notable for gastritis, duodenitis, esophagitis, PEG placed 12/11 * Dietary has evaluated and is following recommends nephro tube feeding overnight, patient taking some oral, on Megace. * Urology consulted; notes bladder mass concerning for bladder cancer given patient's long smoking history. He reported in September he did have gross hematuria. Vascular mass in bladder noted to be 7 x 6 x 6 cm. Plans for cystoscopy TURBT; patient needs to be medically stabilized off anticoagulants before he would proceed with this, there is also concerned about ability to wean off vent postoperatively, could consider spinal anesthesia--all of these medical issues would need to be addressed at length prior to proceeding with any invasive measures * + UTI== UA 12/11, 12/14 positive Nisa //blood cultures 12/05 negative. * Speech therapy has been following; 12/13 patient noted to tolerate mechanical soft diet well with regular thin liquids * Case management following and assisting with discharge planning, apparently patient is in discussions with case management, his family regarding disposition to a hospital in [place], for further follow-up and management at the [facility] there. PT working with patient --patient able to sit on the edge of bed but noted to have poor sitting balance. He requires max assistance for repositioning, remains nonambulatory, essentially dependent for activity--due to lack of strength to lower extremities. PT recommends gradual progression to out of bed activity. Palliative Care was consulted to assist with clarification of goals of treatment. .Pt seen in room, no visitors present. Seen with [employer] medical student. He is alert, oriented, appropriate. Cooperative. Seems to have a simple understanding of his hospital course, is able to detail presentation, transfer, cardiac arrest and current status in very basic terms. Plan to meet with him again tomorrow with his son (and reported HCS ) present. . Function/Cognitive Trajectory Previously lived at home independently no assistive devices prior to cancer diagnosis. Review of Systems Constitutional: COMPLAINS OF: Fatigue, Weight loss, Change in appetite, Generalized weakness Eyes: DENIES: Vision loss Ears, nose, mouth, throat: DENIES: Oral lesions, Throat pain, Hoarseness Respiratory: COMPLAINS OF: Cough (intermittent, none currently ), Hemoptysis ( @ presentation, none recent ), Shortness of breath, DENIES: Sputum production Cardiovascular: DENIES: Chest pain, Lower Extremity Edema Gastrointestinal: COMPLAINS OF: Constipation (intermittent, alternating with diarrhea ), Diarrhea (intermittent, alternating with constipation ), DENIES: Abdominal pain, Nausea, Vomiting, Difficulty Swallowing Genitourinary: DENIES: Urgency Musculoskeletal: DENIES: Joint pain, Muscle aches Integumentary: DENIES: Rash Neurologic: DENIES: Headache Psychiatric: DENIES: Anxiety, Confusion, Depression Past Family Social History Coded Allergies: No Known Allergies (Unverified , 10/21/16) Past Medical History Recent diagnosis of squamous cell carcinoma of the long Acute renal failure requiring hemodialysis Severe deconditioning Dysphagia Hypertension BPH Seizures Past Surgical History Bronchoscopy with debulking and stenting of left mainstem bronchus mass Dialysis catheter placement Reported Medications Terazosin (Terazosin HCl) Unknown Strength Cap Unknown Dose PO HS Dilantin (Phenytoin Extended) 100 Mg Cap 300 Mg PO BID . Current Medications Medications (Trade) Dose Ordered Sig/Luis Carlos Route Start Time Stop Time Status Last Admin (NS Flush) 2 ml UNSCH PRN FLUSH 12/05/16 17:00 (NS Flush) 2 ml BID FLUSH 12/05/16 21:00 12/16/16 08:15 (Zofran Inj) 4 mg Q6H PRN IVP 12/05/16 18:00 (Dulcolax Supp) [address] 12/05/16 18:00 (Colace) 100 mg Q12H PO 12/05/16 18:00 12/16/16 06:12 (Narcan Inj) 0.4 mg UNSCH PRN IV 12/05/16 17:00 (Vasotec Inj) 2.5 mg Q6H PRN IV PUSH 12/05/16 18:00 12/05/16 18:35 (Ferrous Sulfate Liq) 300 mg DAILY PO 12/06/16 09:00 12/16/16 08:14 (Cardura) 8 mg HS PO 12/05/16 21:00 12/15/16 21:01 (Lipitor) 40 mg HS PO 12/05/16 21:00 12/15/16 21:01 (Lasix Liq) 40 mg DAILY TUBE 12/06/16 09:00 12/16/16 08:14 (Jacinda-Colace) 2 tab BID PRN PO 12/05/16 19:45 (Lactulose Liq) 30 ml TID PRN PO 12/05/16 19:45 Magnesium Hydroxide 30 ml 30 ml Q6H PRN PO 12/05/16 19:45 (NS 1000 ml Inj) 1,000 ml @ 0 mls/hr Q0M PRN IV 12/06/16 12:11 12/12/16 09:33 Heparin Sodium (Porcine) 8000 units 8,000 units UNSCH PRN IVF 12/06/16 12:15 Sodium Chloride 1,000 ml @ 200 mls/hr Q5H PRN IV 12/06/16 12:11 (NS 1000 ml Inj) 1,000 ml @ 0 mls/hr Q0M PRN IV 12/06/16 12:11 (Mannitol Inj) 12.5 gm UNSCH PRN IV 12/06/16 12:15 (Albumin 25% Inj) 25 gm UNSCH PRN IV 12/06/16 12:15 (NS Flush) 5 ml UNSCH PRN IVF 12/06/16 12:15 (Heparin Inj) UNSCH PRN .XX 12/06/16 12:15 12/14/16 16:39 (Gentamicin (Dialysis) Inj) 20 mg UNSCH PRN IV 12/06/16 12:15 12/14/16 16:39 (Zofran Inj) 4 mg UNSCH PRN IV 12/06/16 12:15 (Tylenol) 650 mg UNSCH PRN PO 12/06/16 12:15 12/14/16 07:54 (Benadryl) 25 mg UNSCH PRN PO 12/06/16 12:15 (Nitrostat Sl) 0.4 mg UNSCH PRN SL 12/06/16 12:15 (Catapres) 0.1 mg UNSCH PRN PO 12/06/16 12:15 12/14/16 07:54 (Epogen Inj) 10,000 units UNSCH PRN IV 12/06/16 12:15 12/14/16 16:39 (Gelfoam 12 Mm/7 Mm Top) 1 foam UNSCH PRN TOP 12/06/16 12:15 (Megace Liq) 400 mg DAILY PO 12/08/16 09:00 12/16/16 08:14 (Heparin Inj) 5,000 units Q12HR SQ 12/08/16 21:00 12/16/16 08:15 (Dilantin Liq) 300 mg Q12HR PO 12/08/16 21:00 12/16/16 08:14 (Levaquin) 250 mg Q48H PO 12/11/16 16:00 12/15/16 16:06 (Diflucan) 100 mg DAILY PO 12/16/16 11:30 12/16/16 13:55 Family History Both parents from lung cancer-they were both smokers Substance Use Tobacco: 1 PPD, in addition to a pipe for most of his adult life, until recent hospitalization Alcohol: Prescription med abuse: Illicits: Psychosocial History . 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 Lives at home alone. Supported by 4 sons, 2 in [place], 2 in [place]. Spiritual/Cultural Factors Anabaptism . Living Will: Completed, but not made available Health Care Surrogate: Completed, but not made available Ethical and Legal Issues pt appears able to participate in decision making. Reports his son Elpidio is HCS, they will provide copies. Pt appears to have simple understanding of things and wishes to include his son in medical updates and decision making . Physical Exam Vital Signs Date Time Temp Pulse Resp B/P Pulse Ox O2 Delivery O2 Flow Rate FiO2 12/16/16 12:00 98.0 84 17 146/67 99 12/16/16 09:19 96 Nasal Cannula 3.00 12/16/16 08:00 98.1 71 18 149/72 96 12/16/16 03:36 98.3 91 18 132/65 98 12/16/16 00:00 97.7 96 18 146/69 97 12/15/16 20:09 95 Nasal Cannula 3.00 12/15/16 20:00 97.0 89 20 157/76 97 12/15/16 19:56 92 12/15/16 16:00 99.1 87 20 163/77 96 12/15/16 12/16/16 19:00 07:00 Intake Total 600 ml 1148 ml Output Total 400 ml 450 ml Balance 200 ml 698 ml Intake Oral 600 ml 360 ml IV Total 0 ml 0 ml Tube Feeding 758 ml Tube Irrigant 30 ml Output Urine Total 400 ml 450 ml # Bowel Movements 0 0 Exam CONSTITUTIONAL/GENERAL: This is a chronically ill appearing pt, no distress TUBES/LINES/DRAINS:pIV LUE, NC O2. +PEG tube, +foot drop boots SKIN: No jaundice, rashes, or lesions. No wounds seen anteriorly. Skin temperature appropriate. Not diaphoretic. HEAD: Atraumatic. Normocephalic. EYES: Pupils equal and round and reactive. Extraocular motions intact. No scleral icterus. No injection or drainage. Fundi not examined. ENT: Hearing grossly normal. Nose without bleeding or purulent drainage. Throat without visible erythema, exudates, masses, or lesions. NECK: Trachea midline. Supple, nontender. No palpable thyroid enlargement or nodularity. CARDIOVASCULAR: Regular rate and rhythm, no murmurs. Peripheral pulses symmetric. RESPIRATORY/CHEST: Symmetric, unlabored respirations. ON 3L NC. Clear to auscultation, faint expiratory wheezes throughout GASTROINTESTINAL: Abdomen soft, non-tender, nondistended. No palpable masses. No guarding. Bowel sounds present.PEG tube clamped ,dressing clean/dry GENITOURINARY: Without palpable bladder distension. Lipscomb catheter in place. MUSCULOSKELETAL: Extremities without clubbing, cyanosis. Trace peripheral edema to extremities. No calf tenderness. No mottling or clubbing. LYMPHATICS: No palpable cervical or supraclavicular adenopathy. NEUROLOGICAL: Awake and alert, oriented x3. Insight is fair, simple understanding of things. Follows commands. Cognitively sharp. Moves all 4 extremities with significant weakness PSYCHIATRIC: No obvious anxiety/depression. no apparent hallucinations or other psychotic thought process. Diagnostic Tests Laboratory Laboratory Tests Test 12/14/16 12/14/16 12/16/16 02:59 09:43 10:26 Sodium Level 142 MEQ/L 139 MEQ/L (136-145) (136-145) Potassium Level 3.5 MEQ/L 3.7 MEQ/L (3.5-5.1) (3.5-5.1) Chloride Level 100 MEQ/L 99 MEQ/L (98-107) (98-107) Carbon Dioxide Level 33.7 MEQ/L 32.8 MEQ/L (21.0-32.0) (21.0-32.0) Anion Gap 8 MEQ/L (5-15) 7 MEQ/L (5-15) Blood Urea Nitrogen 48 MG/DL (7-18) 58 MG/DL (7-18) Creatinine 4.47 MG/DL 4.24 MG/DL (0.60-1.30) (0.60-1.30) Estimat Glomerular Filtration 13 ML/MIN (>89) 14 ML/MIN (>89) Rate Random Glucose 131 MG/DL 111 MG/DL (74-106) (74-106) Calcium Level 7.9 MG/DL 7.8 MG/DL (8.5-10.1) (8.5-10.1) Phosphorus Level 2.5 MG/DL 3.5 MG/DL (2.5-4.9) (2.5-4.9) Albumin 1.8 GM/DL 1.9 GM/DL (3.4-5.0) (3.4-5.0) Urine Color PINK (YELLW/STRAW) Urine Turbidity CLEAR (CLEAR) Urine pH 8.0 (5.0-8.5) Urine Specific [place] 1.006 (1.002-1.035) Urine Protein 30 mg/dL (NEG-TRACE) Urine Glucose (UA) NEG mg/dL (NEG) Urine Ketones NEG mg/dL (NEG) Urine Occult Blood MOD (NEG) Urine Nitrite NEG (NEG) Urine Bilirubin NEG (NEG) Urine Urobilinogen LESS THAN 2.0 MG/DL (LESS THAN 2.0) Urine Leukocyte Esterase LARGE (NEG) Urine RBC /hpf (0-3) Urine WBC /hpf (0-5) Urine WBC Clumps MANY (NONE) Urine Squamous Epithelial 1 /hpf (0-5) Cells Urine Transitional Epithelial 1 /hpf (NONE) Cells Urine Amorphous Sediment MOD Urine Yeast (Budding) OCC (NONE) Microscopic Urinalysis Comment CULTURE INDICATED Result Diagram: 12/16/16 1026 Microbiology Microbiology Date/Time Procedure Status Source Growth 12/14/16 09:43 Urine Culture - Final Complete Urine Clean Catch Nisa Gl[facility] Last Impressions Upper Extremity Ultrasound 12/11/16 0716 Signed Impressions: Service Date/Time: Sunday, December 11, 2016 18:00 - CONCLUSION: Superficial thrombophlebitis, extensive edema and nonspecific fluid collections in the subcutaneous tissues. Shawn Reyes MD Head CT 12/11/16 0000 Signed Impressions: Service Date/Time: Sunday, December 11, 2016 20:00 - CONCLUSION: Slight atrophic and small vessel ischemic changes without any evidence for acute hemorrhage or mass effect. Shawn Reyes MD Renal Ultrasound 12/09/16 0000 Signed Impressions: Service Date/Time: Friday, December 09, 2016 15:16 - CONCLUSION: 1. 8.4 cm mass lesion at the base of the bladder. This may represent an intrinsic mass of the bladder versus a prominent anterior lobe of the prostate. 2. Otherwise, urinary bladder is partially decompressed with a Lipscomb catheter. 3. Both kidneys are sonographically normal. Roby Horta MD Chest X-Ray 12/05/16 1700 Signed Impressions: Service Date/Time: November 18:52 - CONCLUSION: Left lung/hemithorax remain essentially completely opacified and with volume loss. Patchy consolidation on the right, mainly at the base. Masslike area right mid lung potentially some loculated pleural fluid. Paul Sinha MD Patient/Family Conference Present at Family Conference: pt Family Conference Time (mins): 35 Family Conference Location: Bedside Issues Discussed: Met with patient at bedside, discussion included the following: [Plan follow-up meeting with patient and his son tomorrow 12/17] * Palliative care role, purpose, approach * Additional medical, psychosocial, and spiritual history * Patients general health, functional status, and cognitive changes in the months leading up to the current hospitalization * Patient/family understanding of the current medical problems * Patient/family understanding of prognosis * Patients goals of care as best understood from advance directives and/or conversations and/or values * Current medical treatment options and benefits/burdens of those options * CODE STATUS-patient indicates he does not want to be on life support for a prolonged length of time, but given that he has survived in arrest and CPR during this course thinks he would want to undergo CPR again to "try to save him " * Questions answered to the best of my ability * Palliative care contact information provided Patient appears to have a very simple, basic understanding of events, condition and overall prognosis. Goals are aggressive. He wants to get VA/insurance things in order in order to go back to [place] w his son, and obtain treatment for his lung cancer. Assessment and Plan Disease Oriented Problem List: (1) Mass of left lung Comment: +SCC (2) Acute renal failure (3) Squamous cell lung cancer (4) Bladder mass (5) Anemia (6) UTI (urinary tract infection) Comment: awaiting BX/resection when stable (7) Severe muscle deconditioning (8) Acute respiratory failure Comment: resolved Symptom Scale: Pertinent Non-Medical Issues Psychosocial:. 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 Lives at home alone. Supported by 4 sons, 2 in [place], 2 in [place] Spiritual: Legal:pt appears able to participate in decision making. Reports his son Elpidio is HCS, they will provide copies. Pt appears to have simple understanding of things and wishes to include his son in medical updates and decision making . Ethical issues impacting care: Important Contacts Son Marly Landeros- ([facility]) Elpidio Jaime [phone] Son Marly Landeros - Soham Jaime [phone] Prognosis This patient has a new diagnosis of squamous cell carcinoma, s/p mass resection , intubation and arrest. He subsequently suffered acute renal failure and remains on hemodialysis. He has new findings of a large bladder mass, concerning for cancer, however cannot have additional diagnostic procedures until acute condition improves. It is possible his cancer could be treated, however his acute issues need to improve and his overall performance status needs to improve in order to obtain staging, and possible treatment. He has multiple issues and is severely deconditioned, it may take significant time for him to improve enough for treatment and during that time he remains high risk for further complications and setbacks. Code Status: Full Code Plan * Legal decision maker:pt appears able to participate in decision making. Reports his son Elpidio is HCS, they will provide copies. Pt appears to have simple understanding of things and wishes to include his son in medical updates and decision making . * Goals: aggressive for now, pt wants to get insurance etc in line to go back home to [place] with his son, and possible obtain chemotherapy to treat his cancer and have more time. PLAN TO MEET AGAIN WITH PATIENT AND HIS SON 12/17/16 * CODE STATUS: Full code * SYMPTOMS: --dyspnea- s/p acute resp failure- prolonged intubation, resolved. Still on NC O2, PRN nebulizers --malnutrition- +PEG, TF at night, + oral food in day time, on MEGACE --weakness/deconditioning - in hospital since 10/22 -- severely deconditioned- -> PT working with, pt with limited strength to even sit on side of bed.Pt reports difficulty feeding self due to weakness. * Palliative care will continue to follow during hospital course as condition evolves, to assist patient/decision-maker with understanding of medical conditions, weighing benefits/burdens of treatment options, for clarification of goals of treatment. Additionally will assist with any symptoms of palliative concern Time Spent Total Floor Time (mins): 60 Thank you for the opportunity to participate in the care of Mr. Jaime. Attestation To help prompt me to consider important information that might be impacting today's encounter and assessment, information from prior notes written by myself or my colleagues may have been "brought forward" into today's note. My signature on this note, however, is an attestation that I personally performed the exam, history, and/or decision-making noted today, and, unless otherwise indicated, the interactions with patient, family, and staff as well as the review of records all occurred today. I also attest that the listed assessment and stated plan reflect my best clinical judgment today based on the combination of historical information, prior notes, and today's exam/ interactions. When time spent is documented, it refers only to time spent today by the signer, or if indicated, combined time spent today by collaborating physician/nurse practitioner. Evangelina Wtason Dec 16, 2016 16:09
[2016-12-16] MEDS: ATORVASTATIN 40 MG TAB PO SCH (21:11)
[2016-12-16] MEDS: DOXAZOSIN MESYLATE 4 MG TAB PO SCH (21:12)
[2016-12-17] VITALS (8 sets, daily range): BP systolic 152–184; BP diastolic 72–82; PULSE 91–100; RESP 16–22; TEMP 97.4–99.7; O2SAT 92–98
[2016-12-17 05:41] LABS: BICARBONATE 31.8 MEQ/L (21.0-32.0); POTASSIUM 3.5 MEQ/L (3.5-5.1)
[2016-12-17] MEDS: DOCUSATE SODIUM 100 MG CAP PO SCH ×2 (06:20→16:45)
[2016-12-17] MEDS: FLUCONAZOLE 100 MG TAB PO SCH (08:30)
[2016-12-17] MEDS: HEPARIN SODIUM - SQ 10,000 UNITS/ML VIAL SQ SCH (08:31)
[2016-12-17] MEDS: MEGESTROL ACETATE SUSP 400 MG/10 ML CUP PO SCH (08:31)
[2016-12-17] MEDS: FUROSEMIDE 40 MG/5 ML UNIT DOSE CUP TUBE SCH (08:31)
[2016-12-17] MEDS: FERROUS SULFATE 300 MG /5ML UDC PO SCH (08:32)
[2016-12-17] MEDS: SODIUM CHLORIDE 0.9% FLUSH 5 ML FLUSH FLUSH SCH ×2 (08:49→21:00)
[2016-12-17] MEDS: PHENYTOIN SUSP 100 MG/4 ML CUP PO SCH (08:50)
--- NOTE | 2016-12-17 09:28 | HHI.PR ---
Subjective Remarks in no acute distress. no pain or sob. for HD today. Objective Vitals Vital Signs Date Time Temp Pulse Resp B/P Pulse Ox O2 Delivery O2 Flow Rate FiO2 12/17/16 08:00 99.7 91 18 161/78 94 12/17/16 04:00 99.0 96 21 167/79 92 12/17/16 00:00 98.6 92 21 152/72 93 12/16/16 20:00 99.2 88 19 157/73 91 12/16/16 15:59 98.4 84 18 152/73 96 12/16/16 12:00 98.0 84 17 146/67 99 I/O 12/16/16 12/16/16 12/16/16 12/17/16 12/17/16 12/17/16 06:59 14:59 22:59 06:59 14:59 22:59 Intake Total 908 ml 720 ml 320 ml 620 ml Output Total 175 ml 300 ml 300 ml 300 ml Balance 733 ml 420 ml 20 ml 320 ml Intake Oral 120 ml 720 ml 120 ml 120 ml IV Total 0 ml 0 ml 0 ml Tube Feeding 758 ml 200 ml 500 ml Tube Irrigant 30 ml Output Urine Total 175 ml 300 ml 300 ml 300 ml # Bowel Movements 0 0 1 1 Result Diagram: 12/17/16 0326 Imaging Last Impressions Upper Extremity Ultrasound 12/11/16 1506 Signed Impressions: Service Date/Time: Sunday, December 11, 2016 18:00 - CONCLUSION: Superficial thrombophlebitis, extensive edema and nonspecific fluid collections in the subcutaneous tissues. Shawn Reyes MD Head CT 12/11/16 0000 Signed Impressions: Service Date/Time: Sunday, December 11, 2016 20:00 - CONCLUSION: Slight atrophic and small vessel ischemic changes without any evidence for acute hemorrhage or mass effect. Shawn Reyes MD Renal Ultrasound 12/09/16 0000 Signed Impressions: Service Date/Time: Friday, December 09, 2016 15:16 - CONCLUSION: 1. 8.4 cm mass lesion at the base of the bladder. This may represent an intrinsic mass of the bladder versus a prominent anterior lobe of the prostate. 2. Otherwise, urinary bladder is partially decompressed with a Lipscomb catheter. 3. Both kidneys are sonographically normal. Roby Horta MD Chest X-Ray 12/05/16 1700 Signed Impressions: Service Date/Time: November 18:52 - CONCLUSION: Left lung/hemithorax remain essentially completely opacified and with volume loss. Patchy consolidation on the right, mainly at the base. Masslike area right mid lung potentially some loculated pleural fluid. Paul Sinha MD Objective Remarks GENERAL: This is a well-nourished, well-developed patient, in no apparent distress. CARDIOVASCULAR: Regular rate and regular rhythm without murmurs, gallops, or rubs. RESPIRATORY: Clear to auscultation. Breath sounds equal bilaterally. No wheezes , rales, or rhonchi. GASTROINTESTINAL: Abdomen soft, non-tender, nondistended. Normal, active bowel sounds MUSCULOSKELETAL: Extremities without clubbing, cyanosis, or edema. NEURO: Alert & Oriented x4 to person, place, time, situation. Moves all ext x4 Procedures 12/11- EGD- esophagitis, gastritis, duodenitis PEG placement Medications and IVs Current Medications Sodium Chloride (NS 1000 ml Inj) 1,000 ml @ 75 mls/hr [id number] IV Last administered on 12/06/16 05:59; Start 12/05/16 at 18:00; Stop 12/06/16 at 12:03 ; Status DC IV Flush (NS Flush) 2 ml UNSCH PRN FLUSH FLUSH AFTER USING IV ACCESS; Start at 17:00 IV Flush (NS Flush) 2 ml BID FLUSH Last administered on 12/16/16 21:12; Start 12/05/16 at 21:00 Ondansetron HCl (Zofran Inj) 4 mg Q6H PRN IVP NAUSEA OR VOMITING; Start at 18:00 Bisacodyl (Dulcolax Supp) 10 mg DAILY PRN [place] CONSTIPATION; Start 12/05/16 at 18 :00 Docusate Sodium (Colace) 100 mg Q12H PO Last administered on 12/17/16 06:20; Start 12/05/16 at 18:00 Naloxone HCl (Narcan Inj) 0.4 mg UNSCH PRN IV SEE LABEL COMMENTS; Start at 17:00 Phenytoin (Dilantin) 300 mg BID PO Last administered on 12/07/16 20:57; Start 12/05/16 at 21:00; Stop 12/08/16 at 10:47; Status DC Terazosin HCl (Hytrin) 1 mg HS PO ; Start 12/05/16 at 21:00; Stop 12/05/16 at 21 :00; Status DC Enalaprilat (Vasotec Inj) 2.5 mg Q6H PRN IV PUSH SBP>160, DBP>90 Last administered on 12/05/16 18:35; Start 12/05/16 at 18:00 Ferrous Sulfate (Ferrous Sulfate Liq) 300 mg DAILY PO Last administered on 12/17 08:32; Start 12/06/16 at 09:00 Doxazosin Mesylate (Cardura) 8 mg HS PO Last administered on 12/16/16 21:12; Start 12/05/16 at 21:00 Atorvastatin Calcium (Lipitor) 40 mg HS PO Last administered on 12/16/16 21:11 ; Start 12/05/16 at 21:00 Furosemide (Lasix Liq) 40 mg DAILY TUBE Last administered on 12/17/16 08:31; Start 12/06/16 at 09:00 Senna/Docusate Sodium (Jacinda-Colace) 2 tab BID PRN PO CONSTIPATION; Start at 19:45 Lactulose (Lactulose Liq) 30 ml TID PRN PO CONSTIPATION; Start 12/05/16 at 19: 45 Bisacodyl (Dulcolax Supp) 10 mg DAILY PRN [place] CONSTIPATION; Start 12/05/16 at 19 :45; Status Cancel Magnesium Hydroxide (Milk Of Magnesia Liq) 30 ml Q6H PRN PO CONSTIPATION; Start 12/05/16 at 19:45 Furosemide 20 mg 20 mg ONCE ONCE IV PUSH ; Start 12/06/16 at 07:00; Stop at 07:01; Status DC Sodium Chloride (NS 250 ml Inj) 250 ml @ 15 mls/hr ONCE ONCE IV Last administered on 12/06/16 11:00; Start 12/06/16 at 08:45; Stop 12/07/16 at 01:24 ; Status DC Acetaminophen (Tylenol) 650 mg Q4H PRN PO SEE LABEL COMMENTS; Start 12/06/16 at 08:45; Stop 12/06/16 at 12:46; Status DC Diphenhydramine HCl (Benadryl) 25 mg Q4H PRN PO SEE LABEL COMMENTS; Start 12/06 at 08:45; Stop 12/06/16 at 12:46; Status DC Furosemide (Lasix Inj) 20 mg ONCE ONCE IV ; Start 12/06/16 at 08:45; Stop 12/06 at 08:46; Status DC Prednisone 20 mg 20 mg ONCE ONCE PO Last administered on 12/06/16 15:36; Start 12/06/16 at 13:00; Stop 12/06/16 at 13:01; Status DC Sodium Chloride (NS 1000 ml Inj) 1,000 ml @ 0 mls/hr Q0M PRN IV For Prime & Rinse Back Last administered on 12/12/16 09:33; Start 12/06/16 at 12:11 Heparin Sodium (Porcine) 8000 units 8,000 units UNSCH PRN IVF WITH DIALYSIS; Start 12/06/16 at 12:15 Sodium Chloride 1,000 ml @ 200 mls/hr Q5H PRN IV WITH DIALYSIS; Start 12/06/16 at 12:11 Sodium Chloride (NS 1000 ml Inj) 1,000 ml @ 0 mls/hr Q0M PRN IV WITH DIALYSIS; Start 12/06/16 at 12:11 Mannitol (Mannitol Inj) 12.5 gm UNSCH PRN IV WITH DIALYSIS; Start 12/06/16 at 12:15 Albumin Human (Albumin 25% Inj) 25 gm UNSCH PRN IV WITH DIALYSIS; Start at 12:15 IV Flush (NS Flush) 5 ml UNSCH PRN IVF WITH DIALYSIS; Start 12/06/16 at 12:15 Heparin Sodium (Porcine) (Heparin Inj) UNSCH PRN .XX WITH DIALYSIS Last administered on 12/14/16 16:39; Start 12/06/16 at 12:15 Gentamicin Sulfate (Gentamicin (Dialysis) Inj) 20 mg UNSCH PRN IV WITH DIALYSIS Last administered on 12/14/16 16:39; Start 12/06/16 at 12:15 Ondansetron HCl (Zofran Inj) 4 mg UNSCH PRN IV WITH DIALYSIS; Start 12/06/16 at 12:15 Acetaminophen (Tylenol) 650 mg UNSCH PRN PO for headach, pain, temp > 101F Last administered on 12/14/16 07:54; Start 12/06/16 at 12:15 Diphenhydramine HCl (Benadryl) 25 mg UNSCH PRN PO for hives/itching/anaphylaxis ; Start 12/06/16 at 12:15 Nitroglycerin (Nitrostat Sl) 0.4 mg UNSCH PRN SL CHEST PAIN; Start 12/06/16 at 12:15 Clonidine (Catapres) 0.1 mg UNSCH PRN PO for BP > 180/100 X 2 readings Last administered on 12/14/16 07:54; Start 12/06/16 at 12:15 Epoetin Blanco (Epogen Inj) 10,000 units UNSCH PRN IV WITH DIALYSIS Last administered on 12/14/16 16:39; Start 12/06/16 at 12:15 Gelatin (Gelfoam 12 Mm/7 Mm Top) 1 foam UNSCH PRN TOP SEE LABEL COMMENTS; Start 12/06/16 at 12:15 Furosemide (Lasix Inj) 20 mg ONCE ONCE IV Last administered on 12/07/16 00:18 ; Start 12/07/16 at 00:30; Stop 12/07/16 at 00:31; Status DC Megestrol Acetate (Megace Liq) 400 mg ONCE ONCE PO Last administered on 18:19; Start 12/07/16 at 14:00; Stop 12/07/16 at 14:01; Status DC Megestrol Acetate (Megace Liq) 400 mg DAILY PO Last administered on 12/17/16 08:31; Start 12/08/16 at 09:00 Heparin Sodium (Porcine) (Heparin Inj) 5,000 units Q12HR SQ Last administered on 12/17/16 08:31; Start 12/08/16 at 21:00 Phenytoin 300 mg 300 mg Q12HR PO Last administered on 12/17/16 08:50; Start at 21:00 Iron Sucrose 100 mg/Sodium Chloride 105 ml @ 105 mls/hr DAILY IV Last administered on 12/09/16 10:24; Start 12/09/16 at 09:00; Stop 12/11/16 at 09:59 ; Status DC Cefazolin Sodium/ Sodium Chloride (Ancef Inj/NS Inj) 100 ml @ 200 mls/hr ECONOMIC GEOGRAPHER IV ; Start 12/10/16 at 13:30; Stop 12/13/16 at 13:29; Status DC Cefazolin Sodium (Ancef Inj) 1,000 mg STK-MED ONCE IV Last administered on 12/11 10:37; Start 12/11/16 at 10:37; Stop 12/11/16 at 11:05; Status DC Propofol (Diprivan 200 Mg/20 ml Inj) 150 mg STK-MED ONCE IV ; Start 12/11/16 at 10:40; Stop 12/11/16 at 11:10; Status DC Levofloxacin (Levaquin) 250 mg Q48H PO Last administered on 12/15/16 16:06; Start 12/11/16 at 16:00 Phenylephrine HCl (Neosynephrine/ NS 1000 Mcg/10ml Syr) 100 mcg STK-MED ONCE IV ; Start 12/11/16 at 10:45; Stop 12/13/16 at 13:03; Status DC Fluconazole 100 mg 100 mg DAILY PO Last administered on 12/17/16 08:30; Start 12/16/16 at 11:30 Pharmacy Profile Note ([facility]) 0 ml @ 0 mls/hr UNSCH OTHER ; Start 12/16/16 at 11:30; Stop 12/16/16 at 14:18; Status DC Date of Insertion: Nov 15, 2016 A/P Assessment and Plan A/P 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 S/P extubation Complicated stay with occluded stent in the left main bronchus. Hematology ff - needs outpatient follow-up ESRD requiring HD. US kidney at [facility] rev findings consistent with chronic kidney disease. Tunnelled dialysis catheter was placed 12/04/16 ( right) at [facility]. non oliguric- awaiting renal recovery on Lasix po daily Nephrology ff- currently on HD (TTS) BPH continue doxazosin 8 mg qhs . Bladder Mass Urology ff- plan for cystoscopy when patient stronger in the future- reconsult them if patient in optimum condition for surgery/procedure - will require anesthesia Respiratory failure requiring O2 supplement - now improved Duonebs as need. S/P tx for PNA bronch sputum klebsiella + , treated at [facility] and finished course of abx per records). Blood cx were negative 11/07/16 ECHO 55-60% Iron deficiency Anemia- low Iron stores S/P EGD- gastritis, duodenitis, esophagitis S/P PEG 12/11 S/P IV Iron . PPI HTN- Continue atenolol 25 mg po bid Left UE superficial thrombophlebitis-improving elevate Left UE above the heart at all times NO IV access.on this arm started on Levaquin.- 12/11- 250 mg po q 48- monitor warm compress UTI- +Pyuria- C with zabrina started Diflucan. Seizure- Continue Dilantin. Seizure precautions. Stable. DVT ppx with SCD/TEDs PT/OT/ daily- deconditioning previously d/w the patient and family at the bedside-palliative care consult appreciated. Regina Garcia MD Dec 17, 2016 09:28
--- NOTE | 2016-12-17 09:39 | HHI.NPPN ---
Subjective General Problems: Anemia, Edema Renal Failure: Acute History of Present Illness 71 y/o male pt. Transferred to [place] from [facility] with renal failure from AT on HD Interval History Seen during dialysis today. To have meeting with palliative care and family today. He has developed low grade fevers. (Marina Mcgovern) Review of Systems General Constitutional: Fever, Fatigue (Mairna Mcgovern) Objective Data Data 12/16/16 12/17/16 19:00 07:00 Intake Total 720 ml 940 ml Output Total 300 ml 600 ml Balance 420 ml 340 ml Intake Oral 720 ml 240 ml IV Total 0 ml Tube Feeding 700 ml Output Urine Total 300 ml 600 ml # Bowel Movements 0 2 Vital Signs Date Time Temp Pulse Resp B/P Pulse Ox O2 Delivery O2 Flow Rate FiO2 12/17/16 08:00 99.7 91 18 161/78 94 12/17/16 04:00 99.0 96 21 167/79 92 12/17/16 00:00 98.6 92 21 152/72 93 12/16/16 20:00 99.2 88 19 157/73 91 12/16/16 15:59 98.4 84 18 152/73 96 12/16/16 12:00 98.0 84 17 146/67 99 (Marina Mcgovern) -: 12/17/16 0326 Imaging Last Impressions Upper Extremity Ultrasound 12/11/16 1506 Signed Impressions: Service Date/Time: Sunday, December 11, 2016 18:00 - CONCLUSION: Superficial thrombophlebitis, extensive edema and nonspecific fluid collections in the subcutaneous tissues. Shawn Reyes MD Head CT 12/11/16 0000 Signed Impressions: Service Date/Time: Sunday, December 11, 2016 20:00 - CONCLUSION: Slight atrophic and small vessel ischemic changes without any evidence for acute hemorrhage or mass effect. Shawn Reyes MD Renal Ultrasound 12/09/16 0000 Signed Impressions: Service Date/Time: Friday, December 09, 2016 15:16 - CONCLUSION: 1. 8.4 cm mass lesion at the base of the bladder. This may represent an intrinsic mass of the bladder versus a prominent anterior lobe of the prostate. 2. Otherwise, urinary bladder is partially decompressed with a Miranda catheter. 3. Both kidneys are sonographically normal. Roby Horta MD Chest X-Ray 12/05/16 1700 Signed Impressions: Service Date/Time: November 18:52 - CONCLUSION: Left lung/hemithorax remain essentially completely opacified and with volume loss. Patchy consolidation on the right, mainly at the base. Masslike area right mid lung potentially some loculated pleural fluid. Paul Sinha MD Tubes & Lines: Miranda Tubes & Lines Comment PEG, (Marina Mcgovern B. CONTACT CENTER ANALYST) Physical Exam General Appearance: Well Developed, Well Nourished, No Acute Distress, Comfortable ( FroilanMarina B. CONTACT CENTER ANALYST) Eyes Eye Exam: Pupils Equal, Pupils Reactive (Jg Mcgovernon B. CONTACT CENTER ANALYST) Throat Throat Exam: Oral Mucosa [place] & Moist (FroilanMarina B. CONTACT CENTER ANALYST) Pulmonary Resp Exam: Breath Sounds Equal, No Distress, Decreased Bases, Diminished Breath Sounds (FroilanMarina B. CONTACT CENTER ANALYST) Cardiology CV Exam: Regular, Normal Sinus Rhythm, Good Perfusion, Murmur (Marina Mcgovern B. CONTACT CENTER ANALYST) Gastrointestinal/Abdomen GI Exam: Soft, Non-Tender, Bowel Sounds Present (Jg Mcgovernon B. CONTACT CENTER ANALYST) Genitourinary Exam: Clear Urine (FroilanMarina B. CONTACT CENTER ANALYST) Musculoskeletal MS Exam: Joints Intact, Atrophy, Unable to Ambulate (FroilanMarina B. CONTACT CENTER ANALYST) Integumentary Skin Exam: Clear, Warm, Dry, Intact (FroilanMarina B. CONTACT CENTER ANALYST) Extremeties Extremities Exam: No Edema, Pedal Pulses Palpable Extremeties Remarks left arm edema improved (FroilanMarina B. CONTACT CENTER ANALYST) Neurologic Neuro Exam: Alert, Awake, Oriented, Speech Clear, Moving All Extremities ( Jg Mcgovernon B. CONTACT CENTER ANALYST) Psychiatric Psych Exam: Appropriate Responses (Marina Mcgovern B. CONTACT CENTER ANALYST) Assessment/Plan Discussed Condition With: Patient Assessment Summary: TODD/Acute Renal Failure, Acute Tubular Necrosis Problem List: (1) Acute renal failure Plan: He had creatinine 0.77 in October Renal failure ATN due to PEA arrest He is on HD per TTS schedule. Seen during dialysis today on a 3K, 250 BFR, goal 1L he is non oliguric, monitor output, he is on lasix He has permcath that functions well daily renal panel, await renal recovery avoid nephrotoxins, no IVF required (2) Bronchiolar obstruction Plan: s/p stent placement, dx of squamous cell carcinoma med oncology following (3) Mass of left lung Plan: oncology has evaluated, appreciate their recommendations he is unstable for treatment at this time (4) Acute respiratory failure Plan: extubated, respiratory status is better on tube feeding and oral nutrition, caloric intake not sufficiency s/p PEG placement speech therapy following (5) UTI (urinary tract infection) Plan: low grade fevers today has indwelling miranda but will keep it in due to bladder mass on po Diflucan (6) Anemia Plan: Has been seen by Hematology. transfused on admission and given Venofer for iron deficiency also on oral iron Epogen with HD Hemoccult positive , cannot tolerate bowel prep for colonoscopy (7) Bladder mass Plan: urology following, bladder US report noted he will need cystoscopy with TURBT (Marina Mcgovern) Plan patient was seen and examined. Only mild increase in creatinine. Signs of renal recovery? Dialysis today, minimal fluid removal. (Willian Borjas MD) Problem Qualifiers (1) UTI (urinary tract infection): Marina Mcgovern Dec 17, 2016 09:39 Willian Borjas MD Dec 17, 2016 14:40
--- NOTE | 2016-12-17 13:55 | HHI.HCPN ---
Reason for visit a. To assist with evaluation and management of symptoms including: dyspnea, weakness, malnutrition b. To assist medical decision maker(s) with: better understanding of current medical conditions; weighing benefits/burdens of medical treatment options; making medical treatment decisions. Subjective/Interval History Pt seen to follow up on comfort, goals, requested update to his family. Upon my arrival to unit around 1030 this am pt was off unit for dialysis, no family present. Notified later that son present, returned to meet with him. Met w son Oscar Jaime and his at length approx 45 min (pt still off floor for dialysis). Discussion w son included: * Palliative care role, team members, reason for consult * review of medical/social/spiritual history * Patient cognitive and functional status in the months to weeks prior to this admission-- they describe pt has had mild cognitive decline in the mos before hospitalization, mild forgetfulness * Patient and/or family understanding of current medical conditions prognosis treatment options and treatments- review of hospital course/procedures/diagnosis /treatment options going forward, possible trajectories * Overall condition, prognosis * CODE STATUS[]- they endorse pt cont to tell them he wants to try to stay alive , they are going to cont to review resuscitation status w pt * Palliative care contact information provided- they are returning to [place] today Son was not aware of new bladder findings. He was not aware of improvements that need to be made to overall pt condition in order for him to receive cancer staging and subsequent treatment options. Son and [id number] both agree that patient seems to have a very simplistic and basic understanding to things almost as if he doesn't fully process the gravity / even though he can acknowledge that he has cancer, and acknowledges that he has had an arrest. They support patient in whatever his wishes are, they do endorse that they're working with case management on trying to relocate the patient near to them up in [place] that we they can continue to be a support system to him. They understand he remains high risk for further decline in other complications and setbacks (daughter in law is a [employer] nurse). They wish to try to get him as stable as possible so that he can get to rehabilitation and possibly pursue treatment for his lung cancer. They wish to continue talking to him about resuscitation status as they feel he likely would not do well if he suffered another cardiac event. Son informs that patient has not actually completed documentation naming him as the surrogate though he remains close this with the patient in terms of his medical illnesses and support and has been in and out of [place] multiple times since original hospitalization and is willing to serve as surrogate. I will attempt to complete healthcare surrogate documentation later with the patient if he is amenable to this. pt seen later in the afternoon after return from dialysis. He is alert, oriented , pleasant . Indicates is feeling well except for general fatigue post dialysis. Ate lunch well. he tells me his son and DIL traveling back to [place] today. Again briefly review conditions, prognosis, options . He endorses his son will find a way to get him up to [place] and he will continue to work very hard in reconditioning in order to try to get treatment for his lung cancer. i did very gently explore that he could continue to decline from current conditions, and NOT improve. He is amenable to completing HCS, names his son OscarANJEL assisted as a witness. (faxed to [employer], copies placed in chart) . Advance Directives Living Will: Completed, but not made available Health Care Surrogate: Completed, but not made available Objective Vital Signs Date Time Temp Pulse Resp B/P Pulse Ox O2 Delivery O2 Flow Rate FiO2 12/17/16 12:00 98.5 93 17 156/74 94 12/17/16 08:00 99.7 91 18 161/78 94 12/17/16 07:30 3.00 12/17/16 04:00 99.0 96 21 167/79 92 12/17/16 00:00 98.6 92 21 152/72 93 12/16/16 20:00 99.2 88 19 157/73 91 12/16/16 15:59 98.4 84 18 152/73 96 Intake & Output 12/17/16 12/17/16 07:00 19:00 Intake Total 940 ml Output Total 600 ml Balance 340 ml Intake Oral 240 ml IV Total 0 ml Tube Feeding 700 ml Output Urine Total 600 ml # Bowel Movements 2 Physical Exam CONSTITUTIONAL/GENERAL: This is a chronically ill appearing pt, no distress TUBES/LINES/DRAINS:pIV LUE, NC O2. +PEG tube, +foot drop boots SKIN: No jaundice, rashes, or lesions. No wounds seen anteriorly. Skin temperature appropriate. Not diaphoretic. CARDIOVASCULAR: Regular rate and rhythm, no murmurs. Peripheral pulses symmetric. RESPIRATORY/CHEST: Symmetric, unlabored respirations. ON 3L NC. Clear to auscultation. GASTROINTESTINAL: Abdomen soft, non-tender, nondistended. No palpable masses. No guarding. Bowel sounds present.PEG tube clamped ,dressing clean/dry NEUROLOGICAL: Awake and alert, oriented x3. Insight is fair, simple understanding of things. Follows commands. Cognitively sharp. Moves all 4 extremities with significant weakness PSYCHIATRIC: No obvious anxiety/depression. no apparent hallucinations or other psychotic thought process. Diagnostic Tests Laboratory Laboratory Tests Test 12/16/16 12/17/16 10:26 03:26 Sodium Level 139 MEQ/L 139 MEQ/L (136-145) (136-145) Potassium Level 3.7 MEQ/L 3.5 MEQ/L (3.5-5.1) (3.5-5.1) Chloride Level 99 MEQ/L 98 MEQ/L (98-107) (98-107) Carbon Dioxide Level 32.8 MEQ/L 31.8 MEQ/L (21.0-32.0) (21.0-32.0) Anion Gap 7 MEQ/L (5-15) 9 MEQ/L (5-15) Blood Urea Nitrogen 58 MG/DL (7-18) 68 MG/DL (7-18) Creatinine 4.24 MG/DL 4.76 MG/DL (0.60-1.30) (0.60-1.30) Estimat Glomerular Filtration 14 ML/MIN (>89) 12 ML/MIN (>89) Rate Random Glucose 111 MG/DL 116 MG/DL (74-106) (74-106) Calcium Level 7.8 MG/DL 7.7 MG/DL (8.5-10.1) (8.5-10.1) Phosphorus Level 3.5 MG/DL 3.4 MG/DL (2.5-4.9) (2.5-4.9) Albumin 1.9 GM/DL 1.9 GM/DL (3.4-5.0) (3.4-5.0) Result Diagram: 12/17/16 0326 Imaging Microbiology Date/Time Procedure Status Source Growth 12/14/16 09:43 Urine Culture - Final Complete Urine Clean Catch Nisa Glabrata Assessment and Plan Disease Oriented Problem List: (1) Mass of left lung Comment: +SCC (2) Acute renal failure (3) Squamous cell lung cancer (4) Bladder mass (5) Anemia (6) UTI (urinary tract infection) Comment: awaiting BX/resection when stable (7) Severe muscle deconditioning (8) Acute respiratory failure Comment: resolved Symptom Scale: (1) Malnutrition (2) Dyspnea (3) Weakness Pertinent Non-Medical Issues Psychosocial:. 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 Lives at home alone. Supported by 4 sons, 2 in [place], 2 in [place] Spiritual: Legal:pt appears able to participate in decision making. Reports his son Oscar is HCS, they will provide copies. Pt appears to have simple understanding of things and wishes to include his son in medical updates and decision making . Ethical issues impacting care: Important Contacts Jevon Landeros- ([facility]) Oscar Jaime [phone] Son Marly Landeros - Soham Jaime [phone] Prognosis This patient has a new diagnosis of squamous cell carcinoma, s/p mass resection , intubation and arrest. He subsequently suffered acute renal failure and remains on hemodialysis. He has new findings of a large bladder mass, concerning for cancer, however cannot have additional diagnostic procedures until acute condition improves. It is possible his cancer could be treated, however his acute issues need to improve and his overall performance status needs to improve in order to obtain staging, and possible treatment. He has multiple issues and is severely deconditioned, it may take significant time for him to improve enough for treatment and during that time he remains high risk for further complications and setbacks. Code Status: Full Code Plan * Legal decision maker:pt appears able to participate in decision making. Reports his son Oscar is HCS, they will provide copies. Pt appears to have simple understanding of things and wishes to include his son in medical updates and decision making . HCS completed 12/17/16 naming son Oscar Jaime as HCS * Goals: aggressive for now, pt wants to get insurance etc in line to go back home to [place] with his son, and possible obtain chemotherapy to treat his cancer and have more time. Met at length today 12/17 with patient's son OSCAR, they support patient and whatever his wishes are. They're working to try to get him up to [place] closer to them. See subjective for additional detail. * CODE STATUS: Full code * SYMPTOMS: --dyspnea- s/p acute resp failure- prolonged intubation, resolved. Still on NC O2, PRN nebulizers --malnutrition- +PEG, TF at night, + oral food in day time, on MEGACE, appetite fair, fluctuates --weakness/deconditioning - in hospital since 10/22 -- severely deconditioned- -> PT working with, pt with limited strength to even sit on side of bed.Pt reports difficulty feeding self due to weakness. * Palliative care will continue to follow during hospital course as condition evolves, to assist patient/decision-maker with understanding of medical conditions, weighing benefits/burdens of treatment options, for clarification of goals of treatment. Additionally will assist with any symptoms of palliative concern Evangelina Watson Dec 17, 2016 13:55
[2016-12-17] MEDS: LEVOFLOXACIN 250 MG TAB PO SCH (16:45)
--- NOTE | 2016-12-17 17:52 | PD.ONC.PN ---
Subjective Subjective Remarks Patient was seen and examined today, he reports no acute complaints at this time. He continues to have profound weakness and tells me he is unable to stand up or even move out of bed with assistance. He tells me swallowing much better and eats as much as he can during the daytime , he is on nocturnal tube feeding. He remains on hemodialysis intermittently. He denies complaints. He has had no further episodes of hemoptysis. Objective Data Date Time Temp Pulse Resp B/P Pulse Ox O2 Delivery O2 Flow Rate FiO2 12/17/16 16:00 97.4 92 16 158/75 93 12/17/16 12:00 98.5 93 17 156/74 94 12/17/16 08:00 99.7 91 18 161/78 94 12/17/16 07:30 3.00 12/17/16 04:00 99.0 96 21 167/79 92 12/17/16 00:00 98.6 92 21 152/72 93 12/16/16 20:00 99.2 88 19 157/73 91 12/17/16 12/17/16 12/17/16 07:00 15:00 23:00 Intake Total 620 ml 360 ml Output Total 300 ml 550 ml Balance 320 ml -190 ml Result Diagram: 12/17/16 0326 Laboratory Results Laboratory Tests Test 12/17/16 03:26 Sodium Level 139 MEQ/L Potassium Level 3.5 MEQ/L Chloride Level 98 MEQ/L Carbon Dioxide Level 31.8 MEQ/L Anion Gap 9 MEQ/L Blood Urea Nitrogen 68 MG/DL Creatinine 4.76 MG/DL Estimat Glomerular Filtration 12 ML/MIN Rate Random Glucose 116 MG/DL Calcium Level 7.7 MG/DL Phosphorus Level 3.4 MG/DL Albumin 1.9 GM/DL Administered Medications Medications (Trade) Dose Ordered Sig/Luis Carlos Route PRN Reason Start Time Stop Time Status Last Admin Dose Admin IV Flush (NS Flush) 2 ml BID FLUSH 12/05/16 21:00 12/16/16 21:12 Docusate Sodium (Colace) 100 mg Q12H PO 12/05/16 18:00 12/17/16 16:45 Enalaprilat (Vasotec Inj) 2.5 mg Q6H PRN IV PUSH SBP>160, DBP>90 12/05/16 18:00 12/05/16 18:35 Ferrous Sulfate (Ferrous Sulfate Liq) 300 mg DAILY PO 12/06/16 09:00 12/17/16 08:32 Doxazosin Mesylate (Cardura) 8 mg HS PO 12/05/16 21:00 12/16/16 21:12 Atorvastatin Calcium (Lipitor) 40 mg HS PO 12/05/16 21:00 12/16/16 21:11 Furosemide 40 mg 40 mg DAILY TUBE 12/06/16 09:00 12/17/16 08:31 Sodium Chloride (NS 1000 ml Inj) 1,000 ml @ 0 mls/hr Q0M PRN IV For Prime & Rinse Back 12/06/16 12:11 12/12/16 09:33 Heparin Sodium (Porcine) (Heparin Inj) UNSCH PRN .XX WITH DIALYSIS 12/06/16 12:15 12/14/16 16:39 Gentamicin Sulfate (Gentamicin (Dialysis) Inj) 20 mg UNSCH PRN IV WITH DIALYSIS 12/06/16 12:15 12/14/16 16:39 Acetaminophen (Tylenol) 650 mg UNSCH PRN PO for headach, pain, temp > 101F 12/06/16 12:15 12/14/16 07:54 Clonidine (Catapres) 0.1 mg UNSCH PRN PO for BP > 180/100 X 2 readings 12/06/16 12:15 12/14/16 07:54 Epoetin Blanco (Epogen Inj) 10,000 units UNSCH PRN IV WITH DIALYSIS 12/06/16 12:15 12/14/16 16:39 Megestrol Acetate (Megace Liq) 400 mg DAILY PO 12/08/16 09:00 12/17/16 08:31 Heparin Sodium (Porcine) (Heparin Inj) 5,000 units Q12HR SQ 12/08/16 21:00 12/17/16 08:31 Phenytoin (Dilantin Liq) 300 mg Q12HR PO 12/08/16 21:00 12/17/16 08:50 Levofloxacin (Levaquin) 250 mg Q48H PO 12/11/16 16:00 12/17/16 16:45 Fluconazole (Diflucan) 100 mg DAILY PO 12/16/16 11:30 12/17/16 08:30 Objective Remarks GENERAL: Elderly and frail man, laying in bed, not acutely distressed. A platelet of mostly uneven food sitting in front of him. SKIN: Warm and dry. HEAD: Normocephalic. EYES: No scleral icterus. No injection or drainage. NECK: Supple, trachea midline. No JVD or lymphadenopathy. LYMPHATIC: No adenopathy. CARDIOVASCULAR: Tachycardic, loud S1 and S2, no obvious murmurs or gallops. RESPIRATORY: Good air movement over the right lung anteriorly, prolonged expiratory phase. Decreased breath sounds over the left lung. GASTROINTESTINAL: Abdomen soft, non-tender, nondistended. Feeding tube in place. EXTREMITIES: No cyanosis, or edema. MUSCULOSKELETAL: Decreased muscle mass, tone and strength. NEUROLOGICAL: No obvious focal deficit. Awake, alert, and oriented x3. Generalized weakness. PSYCHIATRIC: Appropriate mood and affect; insight and judgment normal. Assessment/Plan Problem List: (1) Squamous cell lung cancer Status: Acute Plan: I am still awaiting the results of his biopsy from [facility], I did review the records, every page was looked at but there was no pathology report. I therefore requested again pathology report results from the [facility]. Based on results of imaging scans performed at [facility] including CT scan of the chest abdomen and pelvis there appears to be no definite evidence of metastatic disease. CT scan dated 11/08/2016 indicated multiple cysts/cystic lesions within the liver but no definite evidence of metastases. The bone windows also revealed no evidence of metastases. He therefore appears to have a large lesion involving the central portion of the left lung which resulted in the hemoptysis. Unfortunately, Mr. Jaime is not a candidate for systemic therapy at this time. He however may be a candidate for single modality radiation therapy to prevent further bleeding and also to establish local control on his disease. It may be reasonable to obtain a radiation oncology evaluation. I do not see this man being well enough to leave the hospital in the upcoming days. He tells me he would like to move to [facility] to be closer to his son and establish follow up with the [facility]/oncology practice. I do not however see how this will be possible given his general frailty and in my opinion in ability to travel. I therefore think it would be prudent to begin planning some sort of treatment while he is here. (2) Anemia due to GI blood loss Status: Acute Plan: 12/07: GI consulted. awaiting CBC today --Hemoccult positive Iron sucrose 100 mg IV daily 3 days has been ordered. Assessment 71y/o with newly diagnosed Squamous cell carcinoma of the left mainstem bronchus as well as newly found bladder mass History: Mr. Jaime's history dates back to September 2016 when he began to develop increasing difficulty breathing as well as cough producing blood. He presented to [facility] on 10/22/2016 with acute worsening of difficulty breathing. He underwent imaging studies including a CT angiogram which revealed complete whiteout of the left lung, associated possible underlying mass / nodularity of the left hilum. He was shortly thereafter intubated. He had high volume hemoptysis. The patient was evaluated CT surgery here and after spending some time on a ventilator. He was transferred to the [facility] in [place] where he was evaluated by interventional pulmonology. 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 The left main bronchus was stented. The hemoptysis was controlled and he was eventually extubated. He did have a very complicated hospital stay though and while in the hospital he had a PEA arrest on 11/08/2016. He was resuscitated. He also developed acute renal failure and required hemodialysis. He has required a Dobbhoff tube for feeding purposes. 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 After his condition was stabilized he was transferred back to [facility] for continuation of care. Records from the [facility] indicated a bladder mass. Urology was consulted and they plan to do w/u once the patient is stronger. Plan 1. Nutrition: s/p PEG tube placement. tolerating Nepro at 65cc/hr @ night. on Megace for appetite stimulation during the day. 2. Renal failure: on HD, nephrology following 3. Performance status: continues to have very poor PFS. working with PT. 4. Squamous cell carcinoma of the lung: Requested biopsy results from the [facility]. I will consult radiation oncology to begin considering the role of radiation to help prevent future episodes of bleeding and to help control disease locally in the left perihilar lung. 5. Anemia: Transfuse as needed. 6. Bladder mass: urology following and plans for cystoscopy once patient is stronger. 7. superficial thrombophlebitis: warm compresses prn. Problem Qualifiers (1) Squamous cell lung cancer: Qualified Code: C34.92 - Squamous cell lung cancer, left Tevin Hobbs MD Dec 17, 2016 17:52
[2016-12-17 21:07] LABS: MEAN CORPUSCULAR HGB CONC 36.5 % (32.0-36.0)
[2016-12-18] VITALS (7 sets, daily range): BP systolic 163–184; BP diastolic 78–84; PULSE 93–108; RESP 16–22; TEMP 96.1–99.1; O2SAT 91–95
[2016-12-18] MEDS: ATORVASTATIN 40 MG TAB PO SCH ×2 (00:05→19:40)
[2016-12-18] MEDS: DOXAZOSIN MESYLATE 4 MG TAB PO SCH ×2 (00:05→19:41)
[2016-12-18] MEDS: PHENYTOIN SUSP 100 MG/4 ML CUP PO SCH ×3 (00:05→19:40)
[2016-12-18] MEDS: HEPARIN SODIUM - SQ 10,000 UNITS/ML VIAL SQ SCH ×3 (00:06→19:41)
[2016-12-18] MEDS: DOCUSATE SODIUM 100 MG CAP PO SCH ×2 (05:12→17:59)
[2016-12-18 05:20] LABS: AUTOMATED NEUTROPHIL # 6.7 TH/MM3 (1.8-7.7); BASOPHIL # 0.1 TH/MM3 (0-0.2); BASOPHIL % 0.6 % (0.0-2.0); EOSINOPHIL # 0.8 TH/MM3 (0-0.4); EOSINOPHIL % 8.4 % (0.0-4.0); HEMATOCRIT 24.8 % (39.0-51.0); LYMPH % 7.7 % (9.0-44.0); LYMPHOCYTE # 0.7 TH/MM3 (1.0-4.8); MEAN CELL VOLUME 96.3 FL (80.0-100.0); MEAN CORPUSCULAR HEMOGLOBIN 35.1 PG (27.0-34.0); MONO % 14.1 % (0.0-8.0); NEUT % 69.2 % (16.0-70.0); PLATELET COUNT 355 TH/MM3 (150-450); RED BLOOD COUNT 2.58 MIL/MM3 (4.50-5.90); RED CELL DISTRIBUTION WIDTH 15.8 % (11.6-17.2); WHITE BLOOD COUNT 9.7 TH/MM3 (4.0-11.0)
[2016-12-18 05:23] LABS: BICARBONATE 32.5 MEQ/L (21.0-32.0); POTASSIUM 3.2 MEQ/L (3.5-5.1)
[2016-12-18 06:10] LABS: HEMO FLAGS AUTO DIFF
[2016-12-18 07:02] LABS: BANDS 3 % (0-6); BASOPHILS 1 % (0-2); EOSINOPHILS 10 % (0-4); METAMYELOCYTES 1 % (0-1); MYELOCYTES 2 % (0-0); POLYS (SEG NEUTROPHILS) 66 % (16-70); WBC DIFF SAMPLE 100
[2016-12-18 07:03] LABS: OVALOCYTES 1+ (NORMAL); PLATELET ESTIMATE SMEAR NORMAL (NORMAL); PLATELET MORPHOLOGY NORMAL (NORMAL); SCAN/DIFF FINAL DIFF MANUAL
[2016-12-18] MEDS: FERROUS SULFATE 300 MG /5ML UDC PO SCH (08:19)
[2016-12-18] MEDS: MEGESTROL ACETATE SUSP 400 MG/10 ML CUP PO SCH (08:19)
[2016-12-18] MEDS: FLUCONAZOLE 100 MG TAB PO SCH (08:19)
[2016-12-18] MEDS: FUROSEMIDE 40 MG/5 ML UNIT DOSE CUP TUBE SCH (08:19)
[2016-12-18] MEDS: SODIUM CHLORIDE 0.9% FLUSH 5 ML FLUSH FLUSH SCH ×2 (08:24→19:38)
[2016-12-18] MEDS ORDERED: POTASSIUM PHOSPHATE MONOBASIC 500 MG TAB PO ONE (09:00)
--- NOTE | 2016-12-18 09:29 | HHI.NPPN ---
Subjective General Problems: Anemia, Edema Renal Failure: Acute History of Present Illness 71 y/o male pt. [place] [facility] [place] [facility] with renal failure from AT on HD Interval History He is awake, no current complaints. dialyzed yesterday. Appears urine output is increasing. (Marina Mcgovern) Review of Systems General Constitutional: Fever, Fatigue (aMrina Mcgovern) Objective Data Data 12/17/16 12/18/16 19:00 07:00 Intake Total 360 ml 1100 ml Output Total 550 ml 850 ml Balance -190 ml 250 ml Intake Oral 360 ml 360 ml Tube Feeding 740 ml Output Urine Total 550 ml 850 ml # Bowel Movements 2 0 Vital Signs Date Time Temp Pulse Resp B/P Pulse Ox O2 Delivery O2 Flow Rate FiO2 12/18/16 08:00 96.3 102 16 183/78 93 12/18/16 04:00 98.7 108 20 169/80 95 12/18/16 00:00 99.1 103 22 178/79 94 12/17/16 20:30 100 12/17/16 20:06 94 Nasal Cannula 2.00 12/17/16 20:00 99.2 96 22 184/82 98 12/17/16 16:00 97.4 92 16 158/75 93 12/17/16 12:00 98.5 93 17 156/74 94 (Marina Mcgovern) -: 12/18/16 0333 12/18/16 0333 Imaging Last Impressions Upper Extremity Ultrasound 12/11/16 1506 Signed Impressions: Service Date/Time: Sunday, December 11, 2016 18:00 - CONCLUSION: Superficial thrombophlebitis, extensive edema and nonspecific fluid collections in the subcutaneous tissues. Shawn Reyes MD Head CT 12/11/16 0000 Signed Impressions: Service Date/Time: Sunday, December 11, 2016 20:00 - CONCLUSION: Slight atrophic and small vessel ischemic changes without any evidence for acute hemorrhage or mass effect. Shawn Reyes MD Renal Ultrasound 12/09/16 0000 Signed Impressions: Service Date/Time: Friday, December 09, 2016 15:16 - CONCLUSION: 1. 8.4 cm mass lesion at the base of the bladder. This may represent an intrinsic mass of the bladder versus a prominent anterior lobe of the prostate. 2. Otherwise, urinary bladder is partially decompressed with a Miranda catheter. 3. Both kidneys are sonographically normal. Roby Horta MD Chest X-Ray 12/05/16 1700 Signed Impressions: Service Date/Time: November 18:52 - CONCLUSION: Left lung/hemithorax remain essentially completely opacified and with volume loss. Patchy consolidation on the right, mainly at the base. Masslike area right mid lung potentially some loculated pleural fluid. Paul Sinha MD Tubes & Lines: Miranda Tubes & Lines Comment PEG, (Froilan,Marina B. CRESTER) Physical Exam General Appearance: Well Developed, Well Nourished, No Acute Distress, Comfortable ( Froilan,Marina B. CRESTER) Eyes Eye Exam: Pupils Equal, Pupils Reactive (Froilan,Marina B. CRESTER) Throat Throat Exam: Oral Mucosa [place] & Moist (Froilan,Marina B. CRESTER) Pulmonary Resp Exam: Breath Sounds Equal, No Distress, Decreased Bases, Diminished Breath Sounds (Froilan,Marina B. CRESTER) Cardiology CV Exam: Regular, Normal Sinus Rhythm, Good Perfusion, Murmur (FroilanMarina B. CRESTER) Gastrointestinal/Abdomen GI Exam: Soft, Non-Tender, Bowel Sounds Present, Positive Bowel Movement ( FroilanMarina B. CRESTER) Genitourinary Exam: Clear Urine (FroilanMarina B. CRESTER) Musculoskeletal MS Exam: Joints Intact, Atrophy, Unable to Ambulate (FroilanMarina B. CRESTER) Integumentary Skin Exam: Clear, Warm, Dry, Intact (Froilan,Marina B. CRESTER) Extremeties Extremities Exam: No Edema, Pedal Pulses Palpable Extremeties Remarks left arm edema improved (FroilanMarina B. CRESTER) Neurologic Neuro Exam: Alert, Awake, Oriented, Speech Clear, Moving All Extremities ( FroilanMarina B. CRESTER) Psychiatric Psych Exam: Appropriate Responses (Marina Mcgovern B. CRESTER) Assessment/Plan Discussed Condition With: Patient Assessment Summary: TODD/Acute Renal Failure, Acute Tubular Necrosis Problem List: (1) Acute renal failure Plan: He had creatinine 0.77 in October Renal failure ATN due to PEA arrest He is on HD per TTS schedule. He was dialyzed yesterday, 1L UF he is non oliguric, monitor output, he is on lasix monitor renal function in am, hold dialysis if creatinine stable He has permcath that functions well replace phosphorus and potassium, he is not on phosphate binders avoid nephrotoxins, no IVF required await renal recovery (2) Bronchiolar obstruction Plan: s/p stent placement, dx of squamous cell carcinoma med oncology following (3) Mass of left lung Plan: oncology has evaluated, appreciate their recommendations waiting on pathology report from [facility] he is unstable for systemic treatment at this time but may be candidate for radiation therapy (4) Acute respiratory failure Plan: extubated, respiratory status is better on tube feeding at night with oral nutrition s/p PEG placement; swallowing is better speech therapy following (5) UTI (urinary tract infection) Plan: low grade fevers today has indwelling miranda but will keep it in due to bladder mass on po Diflucan (6) Anemia Plan: Has been seen by Hematology. transfused on admission and given Venofer for iron deficiency also on oral iron Epogen with HD Hemoccult positive , cannot tolerate bowel prep for colonoscopy (7) Bladder mass Plan: urology following, bladder US report noted he will need cystoscopy with TURBT when more stable (Marina Mcgovern [facility]) Problem List: (1) Acute renal failure Plan: He had creatinine 0.77 in October Renal failure ATN due to PEA arrest He is on HD per TTS schedule. He was dialyzed yesterday, 1L UF he is non oliguric, monitor output, he is on lasix monitor renal function in am, hold dialysis if creatinine stable He has permcath that functions well replace phosphorus and potassium, he is not on phosphate binders avoid nephrotoxins, no IVF required await renal recovery (2) Bronchiolar obstruction Plan: s/p stent placement, dx of squamous cell carcinoma med oncology following (3) Mass of left lung Plan: oncology has evaluated, appreciate their recommendations waiting on pathology report from [facility] he is unstable for systemic treatment at this time but may be candidate for radiation therapy (4) Acute respiratory failure Plan: extubated, respiratory status is better on tube feeding at night with oral nutrition s/p PEG placement; swallowing is better speech therapy following (5) UTI (urinary tract infection) Plan: low grade fevers today has indwelling miranda but will keep it in due to bladder mass on po Diflucan (6) Anemia Plan: Has been seen by Hematology. transfused on admission and given Venofer for iron deficiency also on oral iron Epogen with HD Hemoccult positive , cannot tolerate bowel prep for colonoscopy (7) Bladder mass Plan: urology following, bladder US report noted he will need cystoscopy with TURBT when more stable Plan patient was seen and examined. Continue to monitor for signs of renal recovery. Dialysis prn. (Willian Borjas MD) Problem Qualifiers (1) UTI (urinary tract infection): Marina Mgcovern Dec 18, 2016 09:29 Willian Borjas MD Dec 19, 2016 11:55
--- NOTE | 2016-12-18 09:44 | HHI.PR ---
Subjective Remarks resting comfortably with no acute distress. has some nasal congestion. otherwise no other complaints. Objective Vitals Vital Signs Date Time Temp Pulse Resp B/P Pulse Ox O2 Delivery O2 Flow Rate FiO2 12/18/16 08:00 96.3 102 16 183/78 93 12/18/16 04:00 98.7 108 20 169/80 95 12/18/16 00:00 99.1 103 22 178/79 94 12/17/16 20:30 100 12/17/16 20:06 94 Nasal Cannula 2.00 12/17/16 20:00 99.2 96 22 184/82 98 12/17/16 16:00 97.4 92 16 158/75 93 12/17/16 12:00 98.5 93 17 156/74 94 I/O 12/17/16 12/17/16 12/17/16 12/18/16 12/18/16 12/18/16 07:00 15:00 23:00 07:00 15:00 23:00 Intake Total 620 ml 360 ml 478 ml 622 ml Output Total 300 ml 550 ml 300 ml 550 ml Balance 320 ml -190 ml 178 ml 72 ml Intake Oral 120 ml 360 ml 120 ml 240 ml IV Total 0 ml Tube Feeding 500 ml 358 ml 382 ml Output Urine Total 300 ml 550 ml 300 ml 550 ml # Bowel Movements 1 2 0 0 Result Diagram: 12/18/16 0333 12/18/16 0333 Imaging Last Impressions Upper Extremity Ultrasound 12/11/16 1506 Signed Impressions: Service Date/Time: Sunday, December 11, 2016 18:00 - CONCLUSION: Superficial thrombophlebitis, extensive edema and nonspecific fluid collections in the subcutaneous tissues. Shawn Reyes MD Head CT 12/11/16 0000 Signed Impressions: Service Date/Time: Sunday, December 11, 2016 20:00 - CONCLUSION: Slight atrophic and small vessel ischemic changes without any evidence for acute hemorrhage or mass effect. Shawn Reyes MD Renal Ultrasound 12/09/16 0000 Signed Impressions: Service Date/Time: Friday, December 09, 2016 15:16 - CONCLUSION: 1. 8.4 cm mass lesion at the base of the bladder. This may represent an intrinsic mass of the bladder versus a prominent anterior lobe of the prostate. 2. Otherwise, urinary bladder is partially decompressed with a Lipscomb catheter. 3. Both kidneys are sonographically normal. Roby Horta MD Chest X-Ray 12/05/16 1700 Signed Impressions: Service Date/Time: November 18:52 - CONCLUSION: Left lung/hemithorax remain essentially completely opacified and with volume loss. Patchy consolidation on the right, mainly at the base. Masslike area right mid lung potentially some loculated pleural fluid. Paul Sinha MD Objective Remarks GENERAL: This is a well-nourished, well-developed patient, in no apparent distress. CARDIOVASCULAR: Regular rate and regular rhythm without murmurs, gallops, or rubs. RESPIRATORY: Clear to auscultation. Breath sounds equal bilaterally. No wheezes , rales, or rhonchi. GASTROINTESTINAL: Abdomen soft, non-tender, nondistended. Normal, active bowel sounds MUSCULOSKELETAL: Extremities without clubbing, cyanosis, or edema. NEURO: Alert & Oriented x4 to person, place, time, situation. Moves all ext x4 Procedures 12/11- EGD- esophagitis, gastritis, duodenitis PEG placement Medications and IVs Current Medications Sodium Chloride (NS 1000 ml Inj) 1,000 ml @ 75 mls/hr [id number] IV Last administered on 12/06/16 05:59; Start 12/05/16 at 18:00; Stop 12/06/16 at 12:03 ; Status DC IV Flush (NS Flush) 2 ml UNSCH PRN FLUSH FLUSH AFTER USING IV ACCESS; Start at 17:00 IV Flush (NS Flush) 2 ml BID FLUSH Last administered on 12/16/16 21:12; Start 12/05/16 at 21:00 Ondansetron HCl (Zofran Inj) 4 mg Q6H PRN IVP NAUSEA OR VOMITING; Start at 18:00 Bisacodyl (Dulcolax Supp) 10 mg DAILY PRN [place] CONSTIPATION; Start 12/05/16 at 18 :00 Docusate Sodium (Colace) 100 mg Q12H PO Last administered on 12/18/16 05:12; Start 12/05/16 at 18:00 Naloxone HCl (Narcan Inj) 0.4 mg UNSCH PRN IV SEE LABEL COMMENTS; Start at 17:00 Phenytoin (Dilantin) 300 mg BID PO Last administered on 12/07/16 20:57; Start 12/05/16 at 21:00; Stop 12/08/16 at 10:47; Status DC Terazosin HCl (Hytrin) 1 mg HS PO ; Start 12/05/16 at 21:00; Stop 12/05/16 at 21 :00; Status DC Enalaprilat (Vasotec Inj) 2.5 mg Q6H PRN IV PUSH SBP>160, DBP>90 Last administered on 12/05/16 18:35; Start 12/05/16 at 18:00 Ferrous Sulfate (Ferrous Sulfate Liq) 300 mg DAILY PO Last administered on 12/18 08:19; Start 12/06/16 at 09:00 Doxazosin Mesylate (Cardura) 8 mg HS PO Last administered on 12/18/16 00:05; Start 12/05/16 at 21:00 Atorvastatin Calcium (Lipitor) 40 mg HS PO Last administered on 12/18/16 00:05 ; Start 12/05/16 at 21:00 Furosemide (Lasix Liq) 40 mg DAILY TUBE Last administered on 12/18/16 08:19; Start 12/06/16 at 09:00 Senna/Docusate Sodium (Jacinda-Colace) 2 tab BID PRN PO CONSTIPATION; Start at 19:45 Lactulose (Lactulose Liq) 30 ml TID PRN PO CONSTIPATION; Start 12/05/16 at 19: 45 Bisacodyl (Dulcolax Supp) 10 mg DAILY PRN [place] CONSTIPATION; Start 12/05/16 at 19 :45; Status Cancel Magnesium Hydroxide (Milk Of Magnesia Liq) 30 ml Q6H PRN PO CONSTIPATION; Start 12/05/16 at 19:45 Furosemide 20 mg 20 mg ONCE ONCE IV PUSH ; Start 12/06/16 at 07:00; Stop at 07:01; Status DC Sodium Chloride (NS 250 ml Inj) 250 ml @ 15 mls/hr ONCE ONCE IV Last administered on 12/06/16 11:00; Start 12/06/16 at 08:45; Stop 12/07/16 at 01:24 ; Status DC Acetaminophen (Tylenol) 650 mg Q4H PRN PO SEE LABEL COMMENTS; Start 12/06/16 at 08:45; Stop 12/06/16 at 12:46; Status DC Diphenhydramine HCl (Benadryl) 25 mg Q4H PRN PO SEE LABEL COMMENTS; Start 12/06 at 08:45; Stop 12/06/16 at 12:46; Status DC Furosemide (Lasix Inj) 20 mg ONCE ONCE IV ; Start 12/06/16 at 08:45; Stop 12/06 at 08:46; Status DC Prednisone 20 mg 20 mg ONCE ONCE PO Last administered on 12/06/16 15:36; Start 12/06/16 at 13:00; Stop 12/06/16 at 13:01; Status DC Sodium Chloride (NS 1000 ml Inj) 1,000 ml @ 0 mls/hr Q0M PRN IV For Prime & Rinse Back Last administered on 12/12/16 09:33; Start 12/06/16 at 12:11 Heparin Sodium (Porcine) 8000 units 8,000 units UNSCH PRN IVF WITH DIALYSIS; Start 12/06/16 at 12:15 Sodium Chloride 1,000 ml @ 200 mls/hr Q5H PRN IV WITH DIALYSIS; Start 12/06/16 at 12:11 Sodium Chloride (NS 1000 ml Inj) 1,000 ml @ 0 mls/hr Q0M PRN IV WITH DIALYSIS; Start 12/06/16 at 12:11 Mannitol (Mannitol Inj) 12.5 gm UNSCH PRN IV WITH DIALYSIS; Start 12/06/16 at 12:15 Albumin Human (Albumin 25% Inj) 25 gm UNSCH PRN IV WITH DIALYSIS; Start at 12:15 IV Flush (NS Flush) 5 ml UNSCH PRN IVF WITH DIALYSIS; Start 12/06/16 at 12:15 Heparin Sodium (Porcine) (Heparin Inj) UNSCH PRN .XX WITH DIALYSIS Last administered on 12/14/16 16:39; Start 12/06/16 at 12:15 Gentamicin Sulfate (Gentamicin (Dialysis) Inj) 20 mg UNSCH PRN IV WITH DIALYSIS Last administered on 12/14/16 16:39; Start 12/06/16 at 12:15 Ondansetron HCl (Zofran Inj) 4 mg UNSCH PRN IV WITH DIALYSIS; Start 12/06/16 at 12:15 Acetaminophen (Tylenol) 650 mg UNSCH PRN PO for headach, pain, temp > 101F Last administered on 12/14/16 07:54; Start 12/06/16 at 12:15 Diphenhydramine HCl (Benadryl) 25 mg UNSCH PRN PO for hives/itching/anaphylaxis ; Start 12/06/16 at 12:15 Nitroglycerin (Nitrostat Sl) 0.4 mg UNSCH PRN SL CHEST PAIN; Start 12/06/16 at 12:15 Clonidine (Catapres) 0.1 mg UNSCH PRN PO for BP > 180/100 X 2 readings Last administered on 12/14/16 07:54; Start 12/06/16 at 12:15 Epoetin Blanco (Epogen Inj) 10,000 units UNSCH PRN IV WITH DIALYSIS Last administered on 12/14/16 16:39; Start 12/06/16 at 12:15 Gelatin (Gelfoam 12 Mm/7 Mm Top) 1 foam UNSCH PRN TOP SEE LABEL COMMENTS; Start 12/06/16 at 12:15 Furosemide (Lasix Inj) 20 mg ONCE ONCE IV Last administered on 12/07/16 00:18 ; Start 12/07/16 at 00:30; Stop 12/07/16 at 00:31; Status DC Megestrol Acetate (Megace Liq) 400 mg ONCE ONCE PO Last administered on 18:19; Start 12/07/16 at 14:00; Stop 12/07/16 at 14:01; Status DC Megestrol Acetate (Megace Liq) 400 mg DAILY PO Last administered on 12/18/16 08:19; Start 12/08/16 at 09:00 Heparin Sodium (Porcine) (Heparin Inj) 5,000 units Q12HR SQ Last administered on 12/18/16 08:25; Start 12/08/16 at 21:00 Phenytoin 300 mg 300 mg Q12HR PO Last administered on 12/18/16 08:19; Start at 21:00 Iron Sucrose 100 mg/Sodium Chloride 105 ml @ 105 mls/hr DAILY IV Last administered on 12/09/16 10:24; Start 12/09/16 at 09:00; Stop 12/11/16 at 09:59 ; Status DC Cefazolin Sodium/ Sodium Chloride (Ancef Inj/NS Inj) 100 ml @ 200 mls/hr BUNCHER HAND IV ; Start 12/10/16 at 13:30; Stop 12/13/16 at 13:29; Status DC Cefazolin Sodium (Ancef Inj) 1,000 mg STK-MED ONCE IV Last administered on 12/11 10:37; Start 12/11/16 at 10:37; Stop 12/11/16 at 11:05; Status DC Propofol (Diprivan 200 Mg/20 ml Inj) 150 mg STK-MED ONCE IV ; Start 12/11/16 at 10:40; Stop 12/11/16 at 11:10; Status DC Levofloxacin (Levaquin) 250 mg Q48H PO Last administered on 12/17/16 16:45; Start 12/11/16 at 16:00 Phenylephrine HCl (Neosynephrine/ NS 1000 Mcg/10ml Syr) 100 mcg STK-MED ONCE IV ; Start 12/11/16 at 10:45; Stop 12/13/16 at 13:03; Status DC Fluconazole 100 mg 100 mg DAILY PO Last administered on 12/18/16 08:19; Start 12/16/16 at 11:30 Pharmacy Profile Note ([facility]) 0 ml @ 0 mls/hr UNSCH OTHER ; Start 12/16/16 at 11:30; Stop 12/16/16 at 14:18; Status DC Potassium Phosphate (K-Phos) 500 mg ONCE ONCE PO ; Start 12/18/16 at 09:00; Stop 12/18/16 at 09:01; Status DC Date of Insertion: Nov 15, 2016 A/P Assessment and Plan A/P 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. S/P extubation Complicated stay with occluded stent in the left main bronchus. Hematology follow-up appreciated; radiation oncology consulted. ESRD requiring HD. US kidney at [facility] rev findings consistent with chronic kidney disease. Tunnelled dialysis catheter was placed 12/04/16 ( right) at [facility]. non oliguric- awaiting renal recovery on Lasix po daily Nephrology ff- currently on HD (TTS) hypertension- start norvasc- will monitor and adjust the regimen as needed hypokalemia; replace as needed BPH continue doxazosin 8 mg qhs . Bladder Mass Urology ff- plan for cystoscopy when patient stronger in the future- reconsult them if patient in optimum condition for surgery/procedure - will require anesthesia Respiratory failure requiring O2 supplement - now improved Duonebs as need. S/P tx for PNA bronch sputum klebsiella + , treated at [facility] and finished course of abx per records). Blood cx were negative 11/07/16 ECHO 55-60% Iron deficiency Anemia- low Iron stores S/P EGD- gastritis, duodenitis, esophagitis S/P PEG 12/11 S/P IV Iron . PPI HTN- Continue atenolol 25 mg po bid Left UE superficial thrombophlebitis-improving UTI- +Pyuria- C with zabrina started Diflucan. Seizure- Continue Dilantin. Seizure precautions. Stable. DVT ppx with SCD/TEDs PT/OT/ daily- deconditioning previously d/w the patient and family at the bedside-palliative care consult appreciated. Discharge Planning dc planning to SNF in progress. Regina Garcia MD Dec 18, 2016 09:43
[2016-12-18] MEDS: FLUTICASONE PROPIONATE 50 MCG/ACT 16 GM NASAL SPRAY EACH NARE SCH (11:11)
[2016-12-18] MEDS: amLODIPine BESYLATE 5 MG TAB PO SCH (11:12)
--- NOTE | 2016-12-18 11:43 | HHI.HCPN ---
Reason for visit a. To assist with evaluation and management of symptoms including: dyspnea, weakness, malnutrition b. To assist medical decision maker(s) with: better understanding of current medical conditions; weighing benefits/burdens of medical treatment options; making medical treatment decisions. Subjective/Interval History Pt seen to follow up on comfort, goals. No acute events overnight. Cont to receive TF at night, oral food during day. H&H stable 9.0/24.8 . BUN/creat remain elevated , ongoing HD, s/p HD yesterday. Case management working with patient's son at possible placement options near him in [place], assisting with looking at transport options. Pt seen in room, he informs his son has left, arrived home to [place] around 1am today. Patient tells me feeling well overall today. Denies nausea, denies pain , denies shortness of breath. He is alert, oriented and appropriate. He continues to appear to have a basic understanding of condition and prognosis. I explored with him that he will need to continue to try to get stronger and restore some function before he can obtain chemotherapy. He tells me they're trying to get him up to [place] for rehabilitation. He tells me he spoke with his son earlier this morning. Advised I can give his son and update , he is in agreement with this requests I call him later in the afternoon close to 5. . Advance Directives Living Will: Completed, but not made available Health Care Surrogate: Copy in medical record Advance Directive Specifics Date completed: 12/17/16 Health Care Surrogate(s): Names son Oscar Jaime as HCS Objective Vital Signs Date Time Temp Pulse Resp B/P Pulse Ox O2 Delivery O2 Flow Rate FiO2 12/18/16 08:00 96.3 102 16 183/78 93 12/18/16 04:00 98.7 108 20 169/80 95 12/18/16 00:00 99.1 103 22 178/79 94 12/17/16 20:30 100 12/17/16 20:06 94 Nasal Cannula 2.00 12/17/16 20:00 99.2 96 22 184/82 98 12/17/16 16:00 97.4 92 16 158/75 93 12/17/16 12:00 98.5 93 17 156/74 94 Intake & Output 12/18/16 12/18/16 07:00 19:00 Intake Total 1100 ml Output Total 850 ml Balance 250 ml Intake Oral 360 ml Tube Feeding 740 ml Output Urine Total 850 ml # Bowel Movements 0 Physical Exam CONSTITUTIONAL/GENERAL: This is a chronically ill appearing pt, no distress, + muscle atrophy to 4 extremities TUBES/LINES/DRAINS:pIV LUE, NC O2. +PEG tube, +foot drop boots CARDIOVASCULAR: Regular rate and rhythm, no murmurs. Peripheral pulses symmetric. RESPIRATORY/CHEST: Symmetric, unlabored respirations. ON 3L NC. Clear to auscultation. GASTROINTESTINAL: Abdomen soft, non-tender, nondistended. No palpable masses. No guarding. Bowel sounds present.PEG tube clamped ,dressing clean/dry NEUROLOGICAL: Awake and alert, oriented x3. Insight is fair, simple understanding of things. Follows commands. Cognitively sharp. Moves all 4 extremities with significant weakness PSYCHIATRIC: No obvious anxiety/depression. no apparent hallucinations or other psychotic thought process. Diagnostic Tests Laboratory Laboratory Tests Test 12/16/16 12/17/16 12/18/16 12/18/16 10:26 03:26 03:33 10:25 Sodium Level 139 MEQ/L 139 MEQ/L 139 MEQ/L (136-145) (136-145) (136-145) Potassium Level 3.7 MEQ/L 3.5 MEQ/L 3.2 MEQ/L (3.5-5.1) (3.5-5.1) (3.5-5.1) Chloride Level 99 MEQ/L 98 MEQ/L 98 MEQ/L (98-107) (98-107) (98-107) Carbon Dioxide Level 32.8 MEQ/L 31.8 MEQ/L 32.5 MEQ/L (21.0-32.0) (21.0-32.0) (21.0-32.0) Anion Gap 7 MEQ/L (5-15) 9 MEQ/L (5-15) 9 MEQ/L (5-15) Blood Urea Nitrogen 58 MG/DL (7-18) 68 MG/DL (7-18) 53 MG/DL (7-18) Creatinine 4.24 MG/DL 4.76 MG/DL 3.71 MG/DL (0.60-1.30) (0.60-1.30) (0.60-1.30) Estimat Glomerular Filtration 14 ML/MIN (>89) 12 ML/MIN (>89) 16 ML/MIN (>89) Rate Random Glucose 111 MG/DL 116 MG/DL 116 MG/DL (74-106) (74-106) (74-106) Calcium Level 7.8 MG/DL 7.7 MG/DL 7.8 MG/DL (8.5-10.1) (8.5-10.1) (8.5-10.1) Phosphorus Level 3.5 MG/DL 3.4 MG/DL 2.1 MG/DL (2.5-4.9) (2.5-4.9) (2.5-4.9) Albumin 1.9 GM/DL 1.9 GM/DL (3.4-5.0) (3.4-5.0) White Blood Count 9.7 TH/MM3 (4.0-11.0) Red Blood Count 2.58 MIL/MM3 (4.50-5.90) Hemoglobin 9.0 GM/DL (13.0-17.0) Hematocrit 24.8 % (39.0-51.0) Mean Corpuscular Volume 96.3 FL (80.0-100.0) Mean Corpuscular Hemoglobin 35.1 PG (27.0-34.0) Mean Corpuscular Hemoglobin 36.5 % Concent (32.0-36.0) Red Cell Distribution Width 15.8 % (11.6-17.2) Platelet Count 355 TH/MM3 (150-450) Mean Platelet Volume 7.0 FL (7.0-11.0) Neutrophils (%) (Auto) 69.2 % (16.0-70.0) Lymphocytes (%) (Auto) 7.7 % (9.0-44.0) Monocytes (%) (Auto) 14.1 % (0.0-8.0) Eosinophils (%) (Auto) 8.4 % (0.0-4.0) Basophils (%) (Auto) 0.6 % (0.0-2.0) Neutrophils # (Auto) 6.7 TH/MM3 (1.8-7.7) Lymphocytes # (Auto) 0.7 TH/MM3 (1.0-4.8) Monocytes # (Auto) 1.4 TH/MM3 (0-0.9) Eosinophils # (Auto) 0.8 TH/MM3 (0-0.4) Basophils # (Auto) 0.1 TH/MM3 (0-0.2) CBC Comment AUTO DIFF Differential Total Cells 100 Counted Neutrophils % (Manual) 66 % (16-70) Band Neutrophils % 3 % (0-6) Lymphocytes % 10 % (9-44) Monocytes % 7 % (0-8) Eosinophils % 10 % (0-4) Basophils % 1 % (0-2) Neutrophils # (Manual) 7.0 TH/MM3 (1.8-7.7) Metamyelocytes 1 % (0-1) Myelocytes 2 % (0-0) Differential Comment FINAL DIFF MANUAL Platelet Estimate NORMAL (NORMAL) Platelet Morphology Comment NORMAL (NORMAL) Basophilic Stippling FAINT (NORMAL) Ovalocytes 1+ (NORMAL) Phenytoin (Dilantin) Level 7.3 MCG/ML (10.0-20.0) Result Diagram: 12/18/16 0333 12/18/16 0333 Microbiology Microbiology Date/Time Procedure Status Source Growth 12/14/16 09:43 Urine Culture - Final Complete Urine Clean Catch Nisa Glabrata Imaging Last Impressions Upper Extremity Ultrasound 12/11/16 1506 Signed Impressions: Service Date/Time: Sunday, December 11, 2016 18:00 - CONCLUSION: Superficial thrombophlebitis, extensive edema and nonspecific fluid collections in the subcutaneous tissues. Shawn Reyes MD Head CT 12/11/16 0000 Signed Impressions: Service Date/Time: Sunday, December 11, 2016 20:00 - CONCLUSION: Slight atrophic and small vessel ischemic changes without any evidence for acute hemorrhage or mass effect. Shawn Reyes MD Renal Ultrasound 12/09/16 0000 Signed Impressions: Service Date/Time: Friday, December 09, 2016 15:16 - CONCLUSION: 1. 8.4 cm mass lesion at the base of the bladder. This may represent an intrinsic mass of the bladder versus a prominent anterior lobe of the prostate. 2. Otherwise, urinary bladder is partially decompressed with a Lipscomb catheter. 3. Both kidneys are sonographically normal. Roby Horta MD Chest X-Ray 12/05/16 1700 Signed Impressions: Service Date/Time: November 18:52 - CONCLUSION: Left lung/hemithorax remain essentially completely opacified and with volume loss. Patchy consolidation on the right, mainly at the base. Masslike area right mid lung potentially some loculated pleural fluid. Paul Sinha MD Assessment and Plan Disease Oriented Problem List: (1) Mass of left lung Comment: +SCC (2) Acute renal failure (3) Squamous cell lung cancer (4) Bladder mass (5) Anemia (6) UTI (urinary tract infection) Comment: awaiting BX/resection when stable (7) Severe muscle deconditioning (8) Acute respiratory failure Comment: resolved Symptom Scale: (1) Malnutrition (2) Dyspnea (3) Weakness Pertinent Non-Medical Issues Psychosocial:. 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 Lives at home alone. Supported by 4 sons, 2 in [place], 2 in [place] Spiritual: Legal:pt appears able to participate in decision making. Reports his son Oscar is [facility], they will provide copies. Pt appears to have simple understanding of things and wishes to include his son in medical updates and decision making . Ethical issues impacting care: Important Contacts Jevon Landeros- ([facility]) Oscar Jaime [phone] Jevon Jaime [phone] Prognosis This patient has a new diagnosis of squamous cell carcinoma, s/p mass resection , intubation and arrest. He subsequently suffered acute renal failure and remains on hemodialysis. He has new findings of a large bladder mass, concerning for cancer, however cannot have additional diagnostic procedures until acute condition improves. It is possible his cancer could be treated, however his acute issues need to improve and his overall performance status needs to improve in order to obtain staging, and possible treatment. He has multiple issues and is severely deconditioned, it may take significant time for him to improve enough for treatment and during that time he remains high risk for further complications and setbacks. Code Status: Full Code Plan * Legal decision maker:pt appears able to participate in decision making. Reports his son Oscar is HCS, they will provide copies. Pt appears to have simple understanding of things and wishes to include his son in medical updates and decision making . [facility] completed 12/17/16 naming son Oscar Jaime as [facility] * Goals: aggressive for now, pt wants to get insurance etc in line to go back home to [place] with his son, and possible obtain chemotherapy to treat his cancer and have more time. Met at length 12/17 with patient's son OSCAR, they support patient and whatever his wishes are. They're working to try to get him up to [place] closer to them. Will call son later to provide update. * CODE STATUS: Full code * SYMPTOMS: --dyspnea- s/p acute resp failure- prolonged intubation, resolved. Still on [place] O2, PRN nebulizers-- denies and shortness of breath --malnutrition- +PEG, TF at night, + oral food in day time, on MEGACE, appetite fair, fluctuates appears to improving intake slowly -- eating 25-100% in past few days --weakness/deconditioning - in hospital since 10/22 -- severely deconditioned- -> PT working with, pt with limited strength to even sit on side of bed.Pt reports difficulty feeding self due to weakness.Continues to work with OT. * Palliative care will continue to follow during hospital course as condition evolves, to assist patient/decision-maker with understanding of medical conditions, weighing benefits/burdens of treatment options, for clarification of goals of treatment. Additionally will assist with any symptoms of palliative concern Attestation To help prompt me to consider important information that might be impacting today's encounter and assessment, information from prior notes written by myself or my colleagues may have been "brought forward" into today's note. My signature on this note, however, is an attestation that I personally performed the exam, history, and/or decision-making noted today, and, unless otherwise indicated, the interactions with patient, family, and staff as well as the review of records all occurred today. I also attest that the listed assessment and stated plan reflect my best clinical judgment today based on the combination of historical information, prior notes, and today's exam/ interactions. When time spent is documented, it refers only to time spent today by the signer, or if indicated, combined time spent today by collaborating physician/nurse practitioner. Evangelina Watson Dec 18, 2016 11:43
--- NOTE | 2016-12-18 19:47 | MB ---
cc: LIZABETH CHAPMAN M.D., ZAFAR MD DATE OF CONSULTATION: 12/18/2016 REASON FOR CONSULTATION: DATE OF : 1945. [facility] [id number]. 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 He reports having developed shortness of breath and a progressive cough producing bright red blood in September of this year. He subsequently was seen at the end of September in the emergency room with difficulty breathing. Diagnostic imaging revealed complete whiteout of his left lung. He required intubation and ultimately was transferred to the [facility] in [place]. It is my understanding that he underwent bronchoscopy with some debulking and possibly stent placement with aeration of his lung. His hemoptysis appears to be controlled as well. Unfortunately he developed acute renal failure and has required dialysis. He has been transferred back to this facility where he has been largely bed-bound. He is undergoing dialysis and has been followed with consideration of initiating treatment. Dr. Hobbs has seen this gentleman and does not feel that he is currently strong enough to consider combined radiation treatment and chemotherapy, and he has asked us to see him for consideration of single modality treatment with possible chemotherapy in the future depending on his status. To complicate this further, this gentleman's son who lives in [place], [place], is endeavoring to arrange to have this gentleman transferred to that location in the [place] system and undergo treatment in [place]. The patient tells me that these arrangements are in process but he has no idea how quickly this will occur. He claims to be strong enough to be up and about the room. He denies any further hemoptysis. He does have some shortness of breath and is using O2 in the hospital. Based on the notes we have, the indication is that a CT scan of chest, abdomen and pelvis did not show evidence of metastatic disease in that his disease is intrathoracic and that he would potentially benefit from treatment. PAST MEDICAL AND SURGICAL HISTORY Includes: 1. History of seizures. 2. Heavy tobacco use until this illness. 3. Acute renal failure associated with this illness. He denies diabetes or heart disease. FAMILY HISTORY, SOCIAL HISTORY: This gentleman's parents both from lung cancer as they were heavy smokers. This gentleman has smoked until this recent hospitalization. He is and has been living alone. He has four sons, and as mentioned one son in [place], [place], is attempting to transfer him to that facility. ALLERGIES: None known. OUTPATIENT MEDICATIONS: Included: 1. Atorvastatin 40 milligrams daily. 2. Dulcolax daily. 3. Colace daily. 4. Cardura 8 milligrams q hs. 5. Ferrous sulfate one tablet daily. 6. Furosemide 40 milligrams daily. 7. Lactulose t.i.d. 8. Ondansetron for nausea. 9. Dilantin 300 milligrams b.i.d. SYSTEM REVIEW: This is well-documented in the chart. He has general fatigue and weakness, although he reports that he has been up and around the room. He has lost approximately 20 pounds in weight prior to September and is not aware what his weight loss has been since hospitalization. Head, eyes, ears, nose and throat: Denies headaches, blurred vision, difficulty hearing. Respiratory: He has some shortness of breath with exertion. Cardiovascular: Denies chest pain, palpitations or ankle swelling. Gastrointestinal: No diarrhea, melena or bloody stool. Genitourinary: Denies dysuria, hematuria or incontinence. ORTHOTIC/PROSTHETIC PRACTITIONER: History of seizures and generalized weakness. No focal neurologic problems. Musculoskeletal: Generally weak, age-related arthritis. Skin: No complaints. EXAMINATION: As documented in the chart, he has been afebrile with a pulse of 94 and regular, respiratory rate of 17, blood pressure 165/81 and O2 sat of 91%, and I believe that is on two liters of oxygen. There was no jaundice. His conjunctiva is normal. He had full EOMs. Palpitation of the neck revealed no adenopathy. He has some coarse breath sounds in the left lung. The right lung is clear. He is barrel chested and is not moving a lot of air. Heart sounds are normal, normal rate and rhythm. No abdominal masses or tenderness. No ankle edema. Moving all limbs. REVIEW OF DATA: Today I have been able to pull up his diagnostic imaging from his initial hospitalization where he had a virtual complete whiteout of his left lung. The only imaging that has been performed since he has returned from [facility] has been a chest x-ray which shows expansion of the lung on the right, there is a mass-like area in the right mid to lower lung measuring 5.7 cm. This is thought to be possibly loculated fluid. Unfortunately there still opacification of the left lung. He has also had a head CT which showed slight atrophic and small-vessel ischemic changes without evidence of hemorrhage or mass effect. DISCUSSION I have reviewed with this gentleman our known findings. He is aware, of course, that he has a lung cancer which is obstructing his main stem bronchus causing a complete collapse of his left lung which is resulting in his pulmonary symptoms. He has not thought to be a candidate for systemic therapy at the present time and currently he is largely inactive and mostly in bed as a result of this. I believe it would be to his advantage to proceed with a single modality radiation treatment, as he has what appears to be localized disease by history. I would favor a fairly aggressive treatment to this location. If we can adequately shrink the tumor and open up his airway, his overall well being would improve and he would be a candidate for systemic therapy or possibly some of the new targeted agents. Unfortunately this gentleman's situation is complicated by his intentions to transfer to [place], [place], under the [place]. If we knew this would take a month to coordinate then I would initiate treatment as soon as possible to do our best to help this gentleman. On the other hand, if he is going to leave in the next five or even ten days, he is better off to start treatment at that facility. Overall this gentleman's prognosis is poor. He has presented with bad disease and I do not think it is bad for him to transfer to be closer to family, however, he does need to do his best to sort this out with his son so that treatment decisions can be made. I have discussed this with him and he understands this completely. He does talk to his son on a daily basis. I have told him that he learns that there is going to be a significant delay, that we would be happy to start his treatment at any time. Thank you again. MD PRIYA Robin/SARA /5:36 PM 7:28 PM
[2016-12-19] VITALS (9 sets, daily range): BP systolic 154–181; BP diastolic 78–86; PULSE 92–104; RESP 16–22; TEMP 96.4–98.2; O2SAT 79–97
[2016-12-19 06:11] LABS: BICARBONATE 32.9 MEQ/L (21.0-32.0); POTASSIUM 3.1 MEQ/L (3.5-5.1)
[2016-12-19] MEDS: cloNIDine HCL 0.1 MG TAB PO PRN (06:27)
[2016-12-19] MEDS: DOCUSATE SODIUM 100 MG CAP PO SCH ×2 (06:28→17:34)
[2016-12-19] MEDS: SODIUM CHLORIDE 0.9% FLUSH 5 ML FLUSH FLUSH SCH ×2 (08:45→21:00)
[2016-12-19] MEDS: FUROSEMIDE 40 MG/5 ML UNIT DOSE CUP TUBE SCH (08:45)
[2016-12-19] MEDS: HEPARIN SODIUM - SQ 10,000 UNITS/ML VIAL SQ SCH ×2 (08:45→21:00)
[2016-12-19] MEDS: PHENYTOIN SUSP 100 MG/4 ML CUP PO SCH ×2 (08:45→21:00)
[2016-12-19] MEDS: FERROUS SULFATE 300 MG /5ML UDC PO SCH (08:45)
[2016-12-19] MEDS: amLODIPine BESYLATE 5 MG TAB PO SCH (08:45)
[2016-12-19] MEDS: FLUTICASONE PROPIONATE 50 MCG/ACT 16 GM NASAL SPRAY EACH NARE SCH (08:45)
[2016-12-19] MEDS: MEGESTROL ACETATE SUSP 400 MG/10 ML CUP PO SCH (08:45)
[2016-12-19] MEDS: FLUCONAZOLE 100 MG TAB PO SCH (08:45)
[2016-12-19] MEDS ORDERED: POTASSIUM CHLORIDE 10 MEQ CONTROLLED RELEASE TAB PO ONE (09:00)
--- NOTE | 2016-12-19 09:38 | HHI.NPPN ---
Subjective General Problems: Anemia, Edema Renal Failure: Acute History of Present Illness 71 y/o male pt. Transferred to [facility] from [facility] with renal failure from AT on HD Interval History He is in good spirits today. Urine output is increasing. (Marina Mcgovern) Review of Systems General Constitutional: Fever, Fatigue (Marina Mcgovern) Objective Data Data 12/18/16 12/19/16 19:00 07:00 Intake Total 460 ml 738 ml Output Total 800 ml 1100 ml Balance -340 ml -362 ml Intake Oral 460 ml Tube Feeding 738 ml Output Urine Total 800 ml 1100 ml # Bowel Movements 1 Vital Signs Date Time Temp Pulse Resp B/P Pulse Ox O2 Delivery O2 Flow Rate FiO2 12/19/16 08:00 97.5 100 18 180/86 90 12/19/16 06:14 98.2 104 19 180/85 91 12/19/16 03:59 96.7 104 18 181/86 91 12/18/16 23:49 96.8 100 21 163/84 91 12/18/16 20:21 96.1 93 21 166/79 91 12/18/16 16:00 97.3 94 17 165/81 91 12/18/16 12:00 96.8 95 18 184/81 93 (Marina Mcgovern) -: 12/18/16 0333 12/19/16 0329 Tubes & Lines: Miranda Tubes & Lines Comment PEG, (Marina Mcgovern) Physical Exam General Appearance: Well Developed, Well Nourished, No Acute Distress, Comfortable ( Marina Mcgovern) Eyes Eye Exam: Pupils Equal, Pupils Reactive (Marina Mcgovern) Throat Throat Exam: Oral Mucosa [place] & Moist (Marina Mcgovern) Pulmonary Resp Exam: Breath Sounds Equal, No Distress, Decreased Bases, Diminished Breath Sounds (Marina Mcgovern) Cardiology CV Exam: Regular, Normal Sinus Rhythm, Good Perfusion, Murmur (Marina Mcgovern) Gastrointestinal/Abdomen GI Exam: Soft, Non-Tender, Bowel Sounds Present, Positive Bowel Movement ( Marina Mcgovern) Genitourinary Exam: Clear Urine (Marina Mcgovern) Musculoskeletal MS Exam: Joints Intact, Atrophy, Unable to Ambulate (Marina Mcgovern) Integumentary Skin Exam: Clear, Warm, Dry, Intact (Marina Mcgovern) Extremeties Extremities Exam: No Edema, Pedal Pulses Palpable Extremeties Remarks left arm edema improved (Marina Mcgovern) Neurologic Neuro Exam: Alert, Awake, Oriented, Speech Clear, Moving All Extremities ( Marina Mcgovern) Psychiatric Psych Exam: Appropriate Responses (Marina Mcgovern) Assessment/Plan Discussed Condition With: Patient Assessment Summary: TODD/Acute Renal Failure, Acute Tubular Necrosis Electrolyte Assessment: Hypokalemia Problem List: (1) Acute renal failure Plan: He had creatinine 0.77 in October Renal failure AT due to PEA arrest He has been on HD per TTS schedule. creatinine is higher today but urine output has increased we will hold dialysis today, repeat labs tomorrow and perform dialysis if needed he is non oliguric, monitor output he is on Lasix 40 po daily with improving edema He has permcath that functions well replace potassium today; phosphorus has corrected and he is not on binder therapy avoid nephrotoxins, no IVF required await renal recovery (2) Bronchiolar obstruction Plan: s/p stent placement, dx of squamous cell carcinoma med oncology following (3) Mass of left lung Plan: oncology has evaluated, appreciate their recommendations waiting on pathology report from [facility] he is unstable for systemic treatment at this time he is a candidate for single radiation therapy, but depending on timing of transfer to [place] he may not receive treatment here case management working on discharge/transfer (4) Acute respiratory failure Plan: extubated, respiratory status is better on tube feeding at night with oral nutrition s/p PEG placement; swallowing is better speech therapy following (5) UTI (urinary tract infection) Plan: low grade fevers resolved has indwelling miranda but will keep it in due to bladder mass on po Diflucan (6) Anemia Plan: Has been seen by Hematology. transfused on admission and given Venofer for iron deficiency also on oral iron Epogen with HD Hemoccult positive , cannot tolerate bowel prep for colonoscopy (7) Bladder mass Plan: urology following, bladder US report noted he will need cystoscopy with TURBT when more stable (Marina Mcgovern) Plan patient was seen and examined. Excellent urine output. We will hold dialysis today, repeat labs tomorrow. If creatinine is higher tomorrow, consider stopping Lasix. (Willian Borjas MD) Problem Qualifiers (1) UTI (urinary tract infection): Marina Mcgovern Dec 19, 2016 09:38 Willian Borjas MD Dec 19, 2016 12:05
--- NOTE | 2016-12-19 09:43 | HHI.PR ---
Subjective Remarks in no acute distress. denies any new complaints. no pain- afebrile. HD on hold for today. Objective Vitals Vital Signs Date Time Temp Pulse Resp B/P Pulse Ox O2 Delivery O2 Flow Rate FiO2 12/19/16 08:00 97.5 100 18 180/86 90 12/19/16 06:14 98.2 104 19 180/85 91 12/19/16 03:59 96.7 104 18 181/86 91 12/18/16 23:49 96.8 100 21 163/84 91 12/18/16 20:21 96.1 93 21 166/79 91 12/18/16 16:00 97.3 94 17 165/81 91 12/18/16 12:00 96.8 95 18 184/81 93 I/O 12/18/16 12/18/16 12/18/16 12/19/16 12/19/16 12/19/16 07:00 15:00 23:00 07:00 15:00 23:00 Intake Total 622 ml 460 ml 738 ml Output Total 550 ml 800 ml 300 ml 800 ml Balance 72 ml -340 ml -300 ml -62 ml Intake Oral 240 ml 460 ml Tube Feeding 382 ml 738 ml Output Urine Total 550 ml 800 ml 300 ml 800 ml # Bowel Movements 0 1 Result Diagram: 12/18/16 0333 12/19/16 0329 Imaging Last Impressions Upper Extremity Ultrasound 12/11/16 1506 Signed Impressions: Service Date/Time: Sunday, December 11, 2016 18:00 - CONCLUSION: Superficial thrombophlebitis, extensive edema and nonspecific fluid collections in the subcutaneous tissues. Shawn Reyes MD Head CT 12/11/16 0000 Signed Impressions: Service Date/Time: Sunday, December 11, 2016 20:00 - CONCLUSION: Slight atrophic and small vessel ischemic changes without any evidence for acute hemorrhage or mass effect. Shawn Reyes MD Renal Ultrasound 12/09/16 0000 Signed Impressions: Service Date/Time: Friday, December 09, 2016 15:16 - CONCLUSION: 1. 8.4 cm mass lesion at the base of the bladder. This may represent an intrinsic mass of the bladder versus a prominent anterior lobe of the prostate. 2. Otherwise, urinary bladder is partially decompressed with a Lipscomb catheter. 3. Both kidneys are sonographically normal. Roby Horta MD Chest X-Ray 12/05/16 1700 Signed Impressions: Service Date/Time: November 18:52 - CONCLUSION: Left lung/hemithorax remain essentially completely opacified and with volume loss. Patchy consolidation on the right, mainly at the base. Masslike area right mid lung potentially some loculated pleural fluid. Paul Sinha MD Objective Remarks GENERAL: This is a well-nourished, well-developed patient, in no apparent distress. CARDIOVASCULAR: Regular rate and regular rhythm without murmurs, gallops, or rubs. RESPIRATORY: Clear to auscultation. Breath sounds equal bilaterally. No wheezes , rales, or rhonchi. GASTROINTESTINAL: Abdomen soft, non-tender, nondistended. Normal, active bowel sounds MUSCULOSKELETAL: Extremities without clubbing, cyanosis, or edema. NEURO: Alert & Oriented x4 to person, place, time, situation. Moves all ext x4 Procedures 12/11- EGD- esophagitis, gastritis, duodenitis PEG placement Medications and IVs Current Medications Sodium Chloride (NS 1000 ml Inj) 1,000 ml @ 75 mls/hr [id number] IV Last administered on 12/06/16 05:59; Start 12/05/16 at 18:00; Stop 12/06/16 at 12:03 ; Status DC IV Flush (NS Flush) 2 ml UNSCH PRN FLUSH FLUSH AFTER USING IV ACCESS; Start at 17:00 IV Flush (NS Flush) 2 ml BID FLUSH Last administered on 12/19/16 08:45; Start 12/05/16 at 21:00 Ondansetron HCl (Zofran Inj) 4 mg Q6H PRN IVP NAUSEA OR VOMITING; Start at 18:00 Bisacodyl (Dulcolax Supp) 10 mg DAILY PRN [place] CONSTIPATION; Start 12/05/16 at 18 :00 Docusate Sodium (Colace) 100 mg Q12H PO Last administered on 12/19/16 06:28; Start 12/05/16 at 18:00 Naloxone HCl (Narcan Inj) 0.4 mg UNSCH PRN IV SEE LABEL COMMENTS; Start at 17:00 Phenytoin (Dilantin) 300 mg BID PO Last administered on 12/07/16 20:57; Start 12/05/16 at 21:00; Stop 12/08/16 at 10:47; Status DC Terazosin HCl (Hytrin) 1 mg HS PO ; Start 12/05/16 at 21:00; Stop 12/05/16 at 21 :00; Status DC Enalaprilat (Vasotec Inj) 2.5 mg Q6H PRN IV PUSH SBP>160, DBP>90 Last administered on 12/05/16 18:35; Start 12/05/16 at 18:00 Ferrous Sulfate (Ferrous Sulfate Liq) 300 mg DAILY PO Last administered on 12/19 08:45; Start 12/06/16 at 09:00 Doxazosin Mesylate (Cardura) 8 mg HS PO Last administered on 12/18/16 19:41; Start 12/05/16 at 21:00 Atorvastatin Calcium (Lipitor) 40 mg HS PO Last administered on 12/18/16 19:40 ; Start 12/05/16 at 21:00 Furosemide (Lasix Liq) 40 mg DAILY TUBE Last administered on 12/19/16 08:45; Start 12/06/16 at 09:00 Senna/Docusate Sodium (Jacinda-Colace) 2 tab BID PRN PO CONSTIPATION; Start at 19:45 Lactulose (Lactulose Liq) 30 ml TID PRN PO CONSTIPATION; Start 12/05/16 at 19: 45 Bisacodyl (Dulcolax Supp) 10 mg DAILY PRN [place] CONSTIPATION; Start 12/05/16 at 19 :45; Status Cancel Magnesium Hydroxide (Milk Of Magnesia Liq) 30 ml Q6H PRN PO CONSTIPATION; Start 12/05/16 at 19:45 Furosemide 20 mg 20 mg ONCE ONCE IV PUSH ; Start 12/06/16 at 07:00; Stop at 07:01; Status DC Sodium Chloride (NS 250 ml Inj) 250 ml @ 15 mls/hr ONCE ONCE IV Last administered on 12/06/16 11:00; Start 12/06/16 at 08:45; Stop 12/07/16 at 01:24 ; Status DC Acetaminophen (Tylenol) 650 mg Q4H PRN PO SEE LABEL COMMENTS; Start 12/06/16 at 08:45; Stop 12/06/16 at 12:46; Status DC Diphenhydramine HCl (Benadryl) 25 mg Q4H PRN PO SEE LABEL COMMENTS; Start 12/06 at 08:45; Stop 12/06/16 at 12:46; Status DC Furosemide (Lasix Inj) 20 mg ONCE ONCE IV ; Start 12/06/16 at 08:45; Stop 12/06 at 08:46; Status DC Prednisone 20 mg 20 mg ONCE ONCE PO Last administered on 12/06/16 15:36; Start 12/06/16 at 13:00; Stop 12/06/16 at 13:01; Status DC Sodium Chloride (NS 1000 ml Inj) 1,000 ml @ 0 mls/hr Q0M PRN IV For Prime & Rinse Back Last administered on 12/12/16 09:33; Start 12/06/16 at 12:11 Heparin Sodium (Porcine) 8000 units 8,000 units UNSCH PRN IVF WITH DIALYSIS; Start 12/06/16 at 12:15 Sodium Chloride 1,000 ml @ 200 mls/hr Q5H PRN IV WITH DIALYSIS; Start 12/06/16 at 12:11 Sodium Chloride (NS 1000 ml Inj) 1,000 ml @ 0 mls/hr Q0M PRN IV WITH DIALYSIS; Start 12/06/16 at 12:11 Mannitol (Mannitol Inj) 12.5 gm UNSCH PRN IV WITH DIALYSIS; Start 12/06/16 at 12:15 Albumin Human (Albumin 25% Inj) 25 gm UNSCH PRN IV WITH DIALYSIS; Start at 12:15 IV Flush (NS Flush) 5 ml UNSCH PRN IVF WITH DIALYSIS; Start 12/06/16 at 12:15 Heparin Sodium (Porcine) (Heparin Inj) UNSCH PRN .XX WITH DIALYSIS Last administered on 12/14/16 16:39; Start 12/06/16 at 12:15 Gentamicin Sulfate (Gentamicin (Dialysis) Inj) 20 mg UNSCH PRN IV WITH DIALYSIS Last administered on 12/14/16 16:39; Start 12/06/16 at 12:15 Ondansetron HCl (Zofran Inj) 4 mg UNSCH PRN IV WITH DIALYSIS; Start 12/06/16 at 12:15 Acetaminophen (Tylenol) 650 mg UNSCH PRN PO for headach, pain, temp > 101F Last administered on 12/14/16 07:54; Start 12/06/16 at 12:15 Diphenhydramine HCl (Benadryl) 25 mg UNSCH PRN PO for hives/itching/anaphylaxis ; Start 12/06/16 at 12:15 Nitroglycerin (Nitrostat Sl) 0.4 mg UNSCH PRN SL CHEST PAIN; Start 12/06/16 at 12:15 Clonidine (Catapres) 0.1 mg UNSCH PRN PO for BP > 180/100 X 2 readings Last administered on 12/19/16 06:27; Start 12/06/16 at 12:15 Epoetin Blanco (Epogen Inj) 10,000 units UNSCH PRN IV WITH DIALYSIS Last administered on 12/14/16 16:39; Start 12/06/16 at 12:15 Gelatin (Gelfoam 12 Mm/7 Mm Top) 1 foam UNSCH PRN TOP SEE LABEL COMMENTS; Start 12/06/16 at 12:15 Furosemide (Lasix Inj) 20 mg ONCE ONCE IV Last administered on 12/07/16 00:18 ; Start 12/07/16 at 00:30; Stop 12/07/16 at 00:31; Status DC Megestrol Acetate (Megace Liq) 400 mg ONCE ONCE PO Last administered on 18:19; Start 12/07/16 at 14:00; Stop 12/07/16 at 14:01; Status DC Megestrol Acetate (Megace Liq) 400 mg DAILY PO Last administered on 12/19/16 08:45; Start 12/08/16 at 09:00 Heparin Sodium (Porcine) (Heparin Inj) 5,000 units Q12HR SQ Last administered on 12/19/16 08:45; Start 12/08/16 at 21:00 Phenytoin 300 mg 300 mg Q12HR PO Last administered on 12/19/16 08:45; Start at 21:00 Iron Sucrose 100 mg/Sodium Chloride 105 ml @ 105 mls/hr DAILY IV Last administered on 12/09/16 10:24; Start 12/09/16 at 09:00; Stop 12/11/16 at 09:59 ; Status DC Cefazolin Sodium/ Sodium Chloride (Ancef Inj/NS Inj) 100 ml @ 200 mls/hr DATA MANAGEMENT MANAGER IV ; Start 12/10/16 at 13:30; Stop 12/13/16 at 13:29; Status DC Cefazolin Sodium (Ancef Inj) 1,000 mg STK-MED ONCE IV Last administered on 12/11 10:37; Start 12/11/16 at 10:37; Stop 12/11/16 at 11:05; Status DC Propofol (Diprivan 200 Mg/20 ml Inj) 150 mg STK-MED ONCE IV ; Start 12/11/16 at 10:40; Stop 12/11/16 at 11:10; Status DC Levofloxacin (Levaquin) 250 mg Q48H PO Last administered on 12/17/16 16:45; Start 12/11/16 at 16:00; Stop 12/18/16 at 09:37; Status DC Phenylephrine HCl (Neosynephrine/ NS 1000 Mcg/10ml Syr) 100 mcg STK-MED ONCE IV ; Start 12/11/16 at 10:45; Stop 12/13/16 at 13:03; Status DC Fluconazole 100 mg 100 mg DAILY PO Last administered on 12/19/16 08:45; Start 12/16/16 at 11:30 Pharmacy Profile Note ([facility]) 0 ml @ 0 mls/hr UNSCH OTHER ; Start 12/16/16 at 11:30; Stop 12/16/16 at 14:18; Status DC Potassium Phosphate (K-Phos) 500 mg ONCE ONCE PO Last administered on 10:08; Start 12/18/16 at 09:00; Stop 12/18/16 at 09:01; Status DC Amlodipine Besylate (Norvasc) 5 mg DAILY PO Last administered on 12/19/16 08: 45; Start 12/18/16 at 11:00 Fluticasone Propionate (Flonase Evan Spr) 2 spray DAILY EACH NARE ; Start at 12:00 Potassium Chloride (KCl) 30 meq ONCE ONCE PO ; Start 12/19/16 at 09:00; Stop at 09:01; Status UNV Date of Insertion: Nov 15, 2016 A/P Assessment and Plan A/P 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 S/P extubation Complicated stay with occluded stent in the left main bronchus. Hematology follow-up appreciated; radiation oncology consulted and recommended radiation therapy. ESRD requiring HD. US kidney at [facility] rev findings consistent with chronic kidney disease. Tunnelled dialysis catheter was placed 12/04/16 ( right) at [facility]. non oliguric- awaiting renal recovery on Lasix po daily Nephrology ff- currently on HD (TTS); this is on hold for today. hypertension- stop norvasc and start procardia- will monitor and adjust the regimen as needed hypokalemia; replace as needed BPH continue doxazosin 8 mg qhs . Bladder Mass Urology ff- plan for cystoscopy when patient stronger in the future- will reconsult yrology if patient in optimum condition for surgery/ procedure - will require anesthesia Respiratory failure requiring O2 supplement - now improved Duonebs as need. S/P tx for PNA bronch sputum klebsiella + , treated at [facility] and finished course of abx per records). Blood cx were negative 11/07/16 ECHO 55-60% Iron deficiency Anemia- low Iron stores S/P EGD- gastritis, duodenitis, esophagitis S/P PEG 12/11 S/P IV Iron . PPI HTN- Continue atenolol 25 mg po bid Left UE superficial thrombophlebitis-improving UTI- +Pyuria- C with zabrina started Diflucan. Seizure- Continue Dilantin. Seizure precautions. Stable. DVT ppx with SCD/TEDs PT/OT/ daily- deconditioning previously d/w the patient and family at the bedside-palliative care consult appreciated. d/w and nephrology. Discharge Planning dc planning to SNF in progress. Regina Garcia MD Dec 19, 2016 09:43
--- NOTE | 2016-12-19 12:07 | HHI.HCPN ---
Reason for visit a. To assist with evaluation and management of symptoms including: dyspnea, weakness, malnutrition b. To assist medical decision maker(s) with: better understanding of current medical conditions; weighing benefits/burdens of medical treatment options; making medical treatment decisions. Subjective/Interval History Pt seen to follow up on comfort, goals. Discussed at length with medical attending Dr Garcia, possible discharge planning for [facility] etc. Discuss possible XRT if pt cont to be unable to transfer. Radiation oncology evaluated patient recommends patient is a candidate for XRT may provide some reduction in tumor size which would thereby reduce some respiratory symptoms at least temporarily. Patient would require nearly a month worth of treatment radiation oncologist recommends starting as soon as possible if patient will be able to stay here and continue however if patient may be transferred in a week or so would not recommend starting treatment and then interrupting it. No acute events, patient remained stable. Cont to receive TF at night, oral food during day. ongoing HD. Case management working with patient's son at possible placement options near him in [place], no accepting facility at this time. Patient seen in room with a local friend at bedside. He is alert, oriented and appropriate. Pleasant. Again seems to understand overall disease process recalls discussion and planning with radiation oncology. He tells me he is going to continue to try to participating get stronger into what he needs to do to get treatment for his cancer. PERSONAL LINES ACCOUNT MANAGER is at bedside, assists pt w feeding of lunch. Call to son /HCS Elpidio provided update--review of radiation oncologists recommendations, complicated discharge planning process, current clinical assessment. All questions answered. Elpidio is appreciative of ongoing updates, he would like to continue to receive updates a few times a week when he is not here in town. Patient's other son will be in town over the or Friday. . Advance Directives Living Will: Completed, but not made available Health Care Surrogate: Copy in medical record Advance Directive Specifics Date completed: 12/17/16 Health Care Surrogate(s): Names son Elpidio Jaime as HCS Objective Vital Signs Date Time Temp Pulse Resp B/P Pulse Ox O2 Delivery O2 Flow Rate FiO2 12/19/16 08:00 97.5 100 18 180/86 90 12/19/16 06:14 98.2 104 19 180/85 91 12/19/16 03:59 96.7 104 18 181/86 91 12/18/16 23:49 96.8 100 21 163/84 91 12/18/16 20:21 96.1 93 21 166/79 91 12/18/16 16:00 97.3 94 17 165/81 91 Intake & Output 12/19/16 12/19/16 07:00 19:00 Intake Total 738 ml Output Total 1100 ml Balance -362 ml Tube Feeding 738 ml Output Urine Total 1100 ml Physical Exam CONSTITUTIONAL/GENERAL: This is a chronically ill appearing pt, no distress, + muscle atrophy to 4 extremities TUBES/LINES/DRAINS:pIV LUE, NC O2. +PEG tube, +foot drop boots CARDIOVASCULAR: Regular rate and rhythm, no murmurs. Peripheral pulses symmetric. RESPIRATORY/CHEST: Symmetric, unlabored respirations. ON 3L NC. Clear to auscultation. GASTROINTESTINAL: Abdomen soft, non-tender, nondistended. No palpable masses. No guarding. Bowel sounds present.PEG tube clamped ,dressing clean/dry NEUROLOGICAL: Awake and alert, oriented x3. Insight is fair, simple understanding of things. Follows commands. Cognitively sharp. Moves all 4 extremities with significant weakness PSYCHIATRIC: No obvious anxiety/depression. no apparent hallucinations or other psychotic thought process. Diagnostic Tests Laboratory Laboratory Tests Test 12/17/16 12/18/16 12/18/16 12/19/16 03:26 03:33 10:25 03:29 Sodium Level 139 MEQ/L 139 MEQ/L 139 MEQ/L (136-145) (136-145) (136-145) Potassium Level 3.5 MEQ/L 3.2 MEQ/L 3.1 MEQ/L (3.5-5.1) (3.5-5.1) (3.5-5.1) Chloride Level 98 MEQ/L 98 MEQ/L 96 MEQ/L (98-107) (98-107) (98-107) Carbon Dioxide Level 31.8 MEQ/L 32.5 MEQ/L 32.9 MEQ/L (21.0-32.0) (21.0-32.0) (21.0-32.0) Anion Gap 9 MEQ/L (5-15) 9 MEQ/L (5-15) 10 MEQ/L (5-15) Blood Urea Nitrogen 68 MG/DL (7-18) 53 MG/DL (7-18) 74 MG/DL (7-18) Creatinine 4.76 MG/DL 3.71 MG/DL 4.31 MG/DL (0.60-1.30) (0.60-1.30) (0.60-1.30) Estimat Glomerular Filtration 12 ML/MIN (>89) 16 ML/MIN (>89) 14 ML/MIN (>89) Rate Random Glucose 116 MG/DL 116 MG/DL 134 MG/DL (74-106) (74-106) (74-106) Calcium Level 7.7 MG/DL 7.8 MG/DL 8.0 MG/DL (8.5-10.1) (8.5-10.1) (8.5-10.1) Phosphorus Level 3.4 MG/DL 2.1 MG/DL 3.0 MG/DL (2.5-4.9) (2.5-4.9) (2.5-4.9) Albumin 1.9 GM/DL 1.9 GM/DL (3.4-5.0) (3.4-5.0) White Blood Count 9.7 TH/MM3 (4.0-11.0) Red Blood Count 2.58 MIL/MM3 (4.50-5.90) Hemoglobin 9.0 GM/DL (13.0-17.0) Hematocrit 24.8 % (39.0-51.0) Mean Corpuscular Volume 96.3 FL (80.0-100.0) Mean Corpuscular Hemoglobin 35.1 PG (27.0-34.0) Mean Corpuscular Hemoglobin 36.5 % Concent (32.0-36.0) Red Cell Distribution Width 15.8 % (11.6-17.2) Platelet Count 355 TH/MM3 (150-450) Mean Platelet Volume 7.0 FL (7.0-11.0) Neutrophils (%) (Auto) 69.2 % (16.0-70.0) Lymphocytes (%) (Auto) 7.7 % (9.0-44.0) Monocytes (%) (Auto) 14.1 % (0.0-8.0) Eosinophils (%) (Auto) 8.4 % (0.0-4.0) Basophils (%) (Auto) 0.6 % (0.0-2.0) Neutrophils # (Auto) 6.7 TH/MM3 (1.8-7.7) Lymphocytes # (Auto) 0.7 TH/MM3 (1.0-4.8) Monocytes # (Auto) 1.4 TH/MM3 (0-0.9) Eosinophils # (Auto) 0.8 TH/MM3 (0-0.4) Basophils # (Auto) 0.1 TH/MM3 (0-0.2) CBC Comment AUTO DIFF Differential Total Cells 100 Counted Neutrophils % (Manual) 66 % (16-70) Band Neutrophils % 3 % (0-6) Lymphocytes % 10 % (9-44) Monocytes % 7 % (0-8) Eosinophils % 10 % (0-4) Basophils % 1 % (0-2) Neutrophils # (Manual) 7.0 TH/MM3 (1.8-7.7) Metamyelocytes 1 % (0-1) Myelocytes 2 % (0-0) Differential Comment FINAL DIFF MANUAL Platelet Estimate NORMAL (NORMAL) Platelet Morphology Comment NORMAL (NORMAL) Basophilic Stippling FAINT (NORMAL) Ovalocytes 1+ (NORMAL) Phenytoin (Dilantin) Level 7.3 MCG/ML (10.0-20.0) Result Diagram: 12/18/16 0333 12/19/16 0329 Imaging Last Impressions Upper Extremity Ultrasound 12/11/16 1506 Signed Impressions: Service Date/Time: Sunday, December 11, 2016 18:00 - CONCLUSION: Superficial thrombophlebitis, extensive edema and nonspecific fluid collections in the subcutaneous tissues. Shawn Reyes MD Head CT 12/11/16 0000 Signed Impressions: Service Date/Time: Sunday, December 11, 2016 20:00 - CONCLUSION: Slight atrophic and small vessel ischemic changes without any evidence for acute hemorrhage or mass effect. Shawn Reyes MD Renal Ultrasound 12/09/16 0000 Signed Impressions: Service Date/Time: Friday, December 09, 2016 15:16 - CONCLUSION: 1. 8.4 cm mass lesion at the base of the bladder. This may represent an intrinsic mass of the bladder versus a prominent anterior lobe of the prostate. 2. Otherwise, urinary bladder is partially decompressed with a Lipscomb catheter. 3. Both kidneys are sonographically normal. Roby Horta MD Chest X-Ray 12/05/16 1700 Signed Impressions: Service Date/Time: November 18:52 - CONCLUSION: Left lung/hemithorax remain essentially completely opacified and with volume loss. Patchy consolidation on the right, mainly at the base. Masslike area right mid lung potentially some loculated pleural fluid. Paul Sinha MD Assessment and Plan Disease Oriented Problem List: (1) Mass of left lung Comment: +SCC (2) Acute renal failure (3) Squamous cell lung cancer (4) Bladder mass (5) Anemia (6) UTI (urinary tract infection) Comment: awaiting BX/resection when stable (7) Severe muscle deconditioning (8) Acute respiratory failure Comment: resolved Symptom Scale: (1) Malnutrition (2) Dyspnea (3) Weakness Pertinent Non-Medical Issues Psychosocial:. 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 Lives at home alone. Supported by 4 sons, 2 in [place], 2 in [place] Spiritual: Legal:pt appears able to participate in decision making. Reports his son Elpidio is [facility], they will provide copies. Pt appears to have simple understanding of things and wishes to include his son in medical updates and decision making . Ethical issues impacting care: Important Contacts Son Marly Landeros- ([facility]) Elpidio Jaime [phone] Jevon Landeros - Soham Jaime [phone] Prognosis This patient has a new diagnosis of squamous cell carcinoma, s/p mass resection , intubation and arrest. He subsequently suffered acute renal failure and remains on hemodialysis. He has new findings of a large bladder mass, concerning for cancer, however cannot have additional diagnostic procedures until acute condition improves. It is possible his cancer could be treated, however his acute issues need to improve and his overall performance status needs to improve in order to obtain staging, and possible treatment. He has multiple issues and is severely deconditioned, it may take significant time for him to improve enough for treatment and during that time he remains high risk for further complications and setbacks. Code Status: Full Code Plan * Legal decision maker:pt appears able to participate in decision making. Reports his son Elpidio is [facility], they will provide copies. Pt appears to have simple understanding of things and wishes to include his son in medical updates and decision making . [facility] completed 12/17/16 naming son Elpidio Jamie as HCS * Goals: aggressive for now, pt wants to try to get needed resources in line in order to to go back home to [place] with his son, and possible obtain chemotherapy to treat his cancer and have more time. Patient's son and healthcare surrogate Elpidio is supportive of the patient's wishes. They're working to try to get him up to [place] closer to them. I provided an update to son Elpidio today * CODE STATUS: Full code * SYMPTOMS: *Currently well managed --dyspnea- s/p acute resp failure- prolonged intubation, resolved. Still on NC O2, PRN nebulizers-- denies and shortness of breath --malnutrition- +PEG, TF at night, + oral food in day time, on MEGACE, appetite fair, fluctuates appears to improving intake slowly -- eating 25-100% in past few days --weakness/deconditioning - in hospital since 10/22 -- severely deconditioned- -> PT working with, pt with limited strength to even sit on side of bed.Pt reports difficulty feeding self due to weakness.Continues to work with OT. * Palliative care will continue to follow during hospital course as condition evolves, to assist patient/decision-maker with understanding of medical conditions, weighing benefits/burdens of treatment options, for clarification of goals of treatment. Additionally will assist with any symptoms of palliative concern Time Spent Total Floor Time (mins): 40 Face to Face Time (mins): 15 >50% Counseling/Coord of Care: Yes (spoke at length with medical attending, primary RN, also with patient's son out of state) Attestation To help prompt me to consider important information that might be impacting today's encounter and assessment, information from prior notes written by myself or my colleagues may have been "brought forward" into today's note. My signature on this note, however, is an attestation that I personally performed the exam, history, and/or decision-making noted today, and, unless otherwise indicated, the interactions with patient, family, and staff as well as the review of records all occurred today. I also attest that the listed assessment and stated plan reflect my best clinical judgment today based on the combination of historical information, prior notes, and today's exam/ interactions. When time spent is documented, it refers only to time spent today by the signer, or if indicated, combined time spent today by collaborating physician/nurse practitioner. Evangelina Watson Dec 19, 2016 12:07
[2016-12-19] MEDS: ATORVASTATIN 40 MG TAB PO SCH (20:59)
[2016-12-19] MEDS: DOXAZOSIN MESYLATE 4 MG TAB PO SCH (20:59)
[2016-12-20 03:55] VITALS: BP 148/82; PULSE 88; RESP 21; TEMP 98.6; O2SAT 95
[2016-12-20] MEDS: DOCUSATE SODIUM 100 MG CAP PO SCH ×2 (04:58→17:59)
[2016-12-20 08:00] VITALS: BP 154/76; PULSE 101; RESP 16; TEMP 97; O2SAT 96
[2016-12-20 08:17] LABS: BICARBONATE 33.1 MEQ/L (21.0-32.0); POTASSIUM 3.6 MEQ/L (3.5-5.1)
[2016-12-20] MEDS: FLUTICASONE PROPIONATE 50 MCG/ACT 16 GM NASAL SPRAY EACH NARE SCH (08:50)
[2016-12-20] MEDS: FLUCONAZOLE 100 MG TAB PO SCH (08:50)
[2016-12-20] MEDS: SODIUM CHLORIDE 0.9% FLUSH 5 ML FLUSH FLUSH SCH ×2 (08:50→20:07)
[2016-12-20] MEDS: PHENYTOIN SUSP 100 MG/4 ML CUP PO SCH ×3 (08:50→20:06)
[2016-12-20] MEDS: NIFEdipine 30 MG SUSTAINED RELEASE TAB PO SCH (08:50)
[2016-12-20] MEDS: FERROUS SULFATE 300 MG /5ML UDC PO SCH (08:50)
[2016-12-20] MEDS: FUROSEMIDE 40 MG/5 ML UNIT DOSE CUP TUBE SCH (08:50)
[2016-12-20] MEDS: HEPARIN SODIUM - SQ 10,000 UNITS/ML VIAL SQ SCH ×2 (08:50→20:07)
[2016-12-20] MEDS: MEGESTROL ACETATE SUSP 400 MG/10 ML CUP PO SCH (08:50)
[2016-12-20] MEDS ORDERED: SODIUM CHLOR 0.9% 1000 ML INJ 1,000 ML IV SCH (09:00)
[2016-12-20] MEDS: CALCIUM ACETATE 667 MG CAP PO SCH ×3 (09:23→17:59)
--- NOTE | 2016-12-20 09:46 | HHI.NPPN ---
Subjective General Problems: Anemia, Edema Renal Failure: Acute History of Present Illness 71 y/o male pt. Transferred to [facility] [place] from [facility] with renal failure from ATN on HD Interval History He is awake, no concerns today. Creatinine is worse but good urine output. ( Marina Mcgovern) Review of Systems General Constitutional: Fever, Fatigue (Marina Mcgovern) Objective Data Data 12/19/16 12/20/16 19:00 07:00 Intake Total 240 ml 820 ml Output Total 700 ml 1100 ml Balance -460 ml -280 ml Intake Oral 240 ml 120 ml Tube Feeding 500 ml Other 200 ml Output Urine Total 700 ml 1100 ml # Bowel Movements 2 Vital Signs Date Time Temp Pulse Resp B/P Pulse Ox O2 Delivery O2 Flow Rate FiO2 12/20/16 08:00 97.0 101 16 154/76 96 12/20/16 03:55 98.6 88 21 148/82 95 12/19/16 23:41 96.4 101 22 154/78 96 12/19/16 21:34 97 Nasal Cannula 4.00 12/19/16 20:13 97.8 92 16 168/78 95 12/19/16 17:59 92 Nasal Cannula 2.00 12/19/16 16:00 97.3 99 17 176/82 79 12/19/16 12:00 97.7 100 18 173/85 91 (Marina Mcgovern) -: 12/18/16 0333 12/20/16 0642 Imaging Last Impressions Upper Extremity Ultrasound 12/11/16 1506 Signed Impressions: Service Date/Time: Sunday, December 11, 2016 18:00 - CONCLUSION: Superficial thrombophlebitis, extensive edema and nonspecific fluid collections in the subcutaneous tissues. Shawn Reyes MD Head CT 12/11/16 0000 Signed Impressions: Service Date/Time: Sunday, December 11, 2016 20:00 - CONCLUSION: Slight atrophic and small vessel ischemic changes without any evidence for acute hemorrhage or mass effect. Shawn Reyes MD Renal Ultrasound 12/09/16 0000 Signed Impressions: Service Date/Time: Friday, December 09, 2016 15:16 - CONCLUSION: 1. 8.4 cm mass lesion at the base of the bladder. This may represent an intrinsic mass of the bladder versus a prominent anterior lobe of the prostate. 2. Otherwise, urinary bladder is partially decompressed with a Miranda catheter. 3. Both kidneys are sonographically normal. Roby Horta MD Chest X-Ray 12/05/16 1700 Signed Impressions: Service Date/Time: November 18:52 - CONCLUSION: Left lung/hemithorax remain essentially completely opacified and with volume loss. Patchy consolidation on the right, mainly at the base. Masslike area right mid lung potentially some loculated pleural fluid. Paul Sinha MD Tubes & Lines: Miranda Tubes & Lines Comment PEG, (FroilanMarina B. BURNER TECHNICIAN) Physical Exam General Appearance: Well Developed, Well Nourished, No Acute Distress, Comfortable ( Froilan,Marnia B. BURNER TECHNICIAN) Eyes Eye Exam: Pupils Equal, Pupils Reactive (Froilan,Marina B. BURNER TECHNICIAN) Throat Throat Exam: Oral Mucosa [place] & Moist (Froilan,Marina B. BURNER TECHNICIAN) Pulmonary Resp Exam: Breath Sounds Equal, No Distress, Decreased Bases, Diminished Breath Sounds (Froilan,Marina B. BURNER TECHNICIAN) Cardiology CV Exam: Regular, Normal Sinus Rhythm, Good Perfusion, Murmur (FroilanMarina B. BURNER TECHNICIAN) Gastrointestinal/Abdomen GI Exam: Soft, Non-Tender, Bowel Sounds Present, Positive Bowel Movement ( FroilanMarina B. BURNER TECHNICIAN) Genitourinary Exam: Clear Urine (FroilanMarina B. BURNER TECHNICIAN) Musculoskeletal MS Exam: Joints Intact, Atrophy, Unable to Ambulate (FroilanMarina B. BURNER TECHNICIAN) Integumentary Skin Exam: Clear, Warm, Dry, Intact (Froilan,Marina B. BURNER TECHNICIAN) Extremeties Extremities Exam: No Edema, Pedal Pulses Palpable Extremeties Remarks left arm edema improved (FroilanMarina B. BURNER TECHNICIAN) Neurologic Neuro Exam: Alert, Awake, Oriented, Speech Clear, Moving All Extremities ( FroilanMarina B. BURNER TECHNICIAN) Psychiatric Psych Exam: Appropriate Responses (Marina Mcgovern B. BURNER TECHNICIAN) Assessment/Plan Discussed Condition With: Patient Assessment Summary: TODD/Acute Renal Failure, Acute Tubular Necrosis Electrolyte Assessment: Hypokalemia Problem List: (1) Acute renal failure Plan: He had creatinine 0.77 in October Renal failure AT due to PEA arrest He was on HD per TTS schedule. dialysis held yesterday (), creatinine is higher today hold lasix, he has had good urine output, start IVF and reevaluate renal function tomorrow dialysis if needed Friday He has permcath that functions well start phoslo for hyperphosphatemia avoid nephrotoxins await renal recovery (2) Bronchiolar obstruction Plan: s/p stent placement, dx of squamous cell carcinoma med oncology following (3) Mass of left lung Plan: oncology has evaluated, appreciate their recommendations waiting on pathology report from [facility] he is unstable for systemic treatment at this time depending on timing of possible transfer to [place], may be candidate for radiation therapy (4) Acute respiratory failure Plan: extubated, on nasal cannula continuous on tube feeding at night with oral nutrition s/p PEG placement; swallowing has improved but oral intake/caloric intake is not adequate speech therapy following (5) UTI (urinary tract infection) Plan: afebrile has indwelling miranda but will keep it in due to bladder mass on po Diflucan (6) Anemia Plan: Has been seen by Hematology. transfused on admission and given Venofer for iron deficiency also on oral iron Epogen with HD Hemoccult positive , cannot tolerate bowel prep for colonoscopy (7) Bladder mass Plan: urology following, bladder US report noted he will need cystoscopy with TURBT when more stable (Marina Mcgovern) Plan patient was seen and examined. BUN and creatinine worse today, but he has very good urine output. He reports that he is having diarrhea. We will stop Lasix and give him a trial of IVF. If no improvement in renal function tomorrow, restart dialysis. He does have a functioning PermCath. (Willian Borjas MD) Problem Qualifiers (1) UTI (urinary tract infection): Marina Mcgovern Dec 20, 2016 09:46 Willian Borjas MD Dec 20, 2016 13:35
[2016-12-20] MEDS: SODIUM CHLOR 0.45% 1000 ML INJ 1,000 ML IV SCH ×2 (10:14→23:23)
[2016-12-20 12:00] VITALS: BP 138/76; PULSE 87; RESP 20; TEMP 96.2; O2SAT 92
--- NOTE | 2016-12-20 12:15 | HHI.PR ---
Subjective Remarks resting with no distress. denies pain. good urine output. no new complaints. Objective Vitals Vital Signs Date Time Temp Pulse Resp B/P Pulse Ox O2 Delivery O2 Flow Rate FiO2 12/20/16 08:00 97.0 101 16 154/76 96 12/20/16 03:55 98.6 88 21 148/82 95 12/19/16 23:41 96.4 101 22 154/78 96 12/19/16 21:34 97 Nasal Cannula 4.00 12/19/16 20:13 97.8 92 16 168/78 95 12/19/16 17:59 92 Nasal Cannula 2.00 12/19/16 16:00 97.3 99 17 176/82 79 I/O 12/19/16 12/19/16 12/19/16 12/20/16 12/20/16 12/20/16 07:00 15:00 23:00 07:00 15:00 23:00 Intake Total 738 ml 240 ml 120 ml 700 ml Output Total 800 ml 700 ml 600 ml 500 ml Balance -62 ml -460 ml -480 ml 200 ml Intake Oral 240 ml 120 ml Tube Feeding 738 ml 500 ml Other 200 ml Output Urine Total 800 ml 700 ml 600 ml 500 ml # Bowel Movements 2 Result Diagram: 12/18/16 0333 12/20/16 0642 Imaging Last Impressions Upper Extremity Ultrasound 12/11/16 1506 Signed Impressions: Service Date/Time: Sunday, December 11, 2016 18:00 - CONCLUSION: Superficial thrombophlebitis, extensive edema and nonspecific fluid collections in the subcutaneous tissues. Shawn Reyes MD Head CT 12/11/16 0000 Signed Impressions: Service Date/Time: Sunday, December 11, 2016 20:00 - CONCLUSION: Slight atrophic and small vessel ischemic changes without any evidence for acute hemorrhage or mass effect. Shawn Reyes MD Renal Ultrasound 12/09/16 0000 Signed Impressions: Service Date/Time: Friday, December 09, 2016 15:16 - CONCLUSION: 1. 8.4 cm mass lesion at the base of the bladder. This may represent an intrinsic mass of the bladder versus a prominent anterior lobe of the prostate. 2. Otherwise, urinary bladder is partially decompressed with a Lipscomb catheter. 3. Both kidneys are sonographically normal. Roby Horta MD Chest X-Ray 12/05/16 1700 Signed Impressions: Service Date/Time: November 18:52 - CONCLUSION: Left lung/hemithorax remain essentially completely opacified and with volume loss. Patchy consolidation on the right, mainly at the base. Masslike area right mid lung potentially some loculated pleural fluid. Paul Sinha MD Objective Remarks GENERAL: This is a well-nourished, well-developed patient, in no apparent distress. CARDIOVASCULAR: Regular rate and regular rhythm without murmurs, gallops, or rubs. RESPIRATORY: Clear to auscultation. Breath sounds equal bilaterally. No wheezes , rales, or rhonchi. GASTROINTESTINAL: Abdomen soft, non-tender, nondistended. Normal, active bowel sounds MUSCULOSKELETAL: Extremities without clubbing, cyanosis, or edema. NEURO: Alert & Oriented x4 to person, place, time, situation. Moves all ext x4 Procedures 12/11- EGD- esophagitis, gastritis, duodenitis PEG placement Medications and IVs Current Medications Sodium Chloride (NS 1000 ml Inj) 1,000 ml @ 75 mls/hr [id number] IV Last administered on 12/06/16 05:59; Start 12/05/16 at 18:00; Stop 12/06/16 at 12:03 ; Status DC IV Flush (NS Flush) 2 ml UNSCH PRN FLUSH FLUSH AFTER USING IV ACCESS; Start at 17:00 IV Flush (NS Flush) 2 ml BID FLUSH Last administered on 12/20/16 08:50; Start 12/05/16 at 21:00 Ondansetron HCl (Zofran Inj) 4 mg Q6H PRN IVP NAUSEA OR VOMITING; Start at 18:00 Bisacodyl (Dulcolax Supp) 10 mg DAILY PRN MD CONSTIPATION; Start 12/05/16 at 18 :00 Docusate Sodium (Colace) 100 mg Q12H PO Last administered on 12/20/16 04:58; Start 12/05/16 at 18:00 Naloxone HCl (Narcan Inj) 0.4 mg UNSCH PRN IV SEE LABEL COMMENTS; Start at 17:00 Phenytoin (Dilantin) 300 mg BID PO Last administered on 12/07/16 20:57; Start 12/05/16 at 21:00; Stop 12/08/16 at 10:47; Status DC Terazosin HCl (Hytrin) 1 mg HS PO ; Start 12/05/16 at 21:00; Stop 12/05/16 at 21 :00; Status DC Enalaprilat (Vasotec Inj) 2.5 mg Q6H PRN IV PUSH SBP>160, DBP>90 Last administered on 12/05/16 18:35; Start 12/05/16 at 18:00 Ferrous Sulfate (Ferrous Sulfate Liq) 300 mg DAILY PO Last administered on 12/20 08:50; Start 12/06/16 at 09:00 Doxazosin Mesylate (Cardura) 8 mg HS PO Last administered on 12/19/16 20:59; Start 12/05/16 at 21:00 Atorvastatin Calcium (Lipitor) 40 mg HS PO Last administered on 12/19/16 20:59 ; Start 12/05/16 at 21:00 Furosemide (Lasix Liq) 40 mg DAILY TUBE Last administered on 12/20/16 08:50; Start 12/06/16 at 09:00; Status Hold Senna/Docusate Sodium (Jacinda-Colace) 2 tab BID PRN PO CONSTIPATION; Start at 19:45 Lactulose (Lactulose Liq) 30 ml TID PRN PO CONSTIPATION; Start 12/05/16 at 19: 45 Bisacodyl (Dulcolax Supp) 10 mg DAILY PRN MD CONSTIPATION; Start 12/05/16 at 19 :45; Status Cancel Magnesium Hydroxide (Milk Of Magnesia Liq) 30 ml Q6H PRN PO CONSTIPATION; Start 12/05/16 at 19:45 Furosemide 20 mg 20 mg ONCE ONCE IV PUSH ; Start 12/06/16 at 07:00; Stop at 07:01; Status DC Sodium Chloride (NS 250 ml Inj) 250 ml @ 15 mls/hr ONCE ONCE IV Last administered on 12/06/16 11:00; Start 12/06/16 at 08:45; Stop 12/07/16 at 01:24 ; Status DC Acetaminophen (Tylenol) 650 mg Q4H PRN PO SEE LABEL COMMENTS; Start 12/06/16 at 08:45; Stop 12/06/16 at 12:46; Status DC Diphenhydramine HCl (Benadryl) 25 mg Q4H PRN PO SEE LABEL COMMENTS; Start 12/06 at 08:45; Stop 12/06/16 at 12:46; Status DC Furosemide (Lasix Inj) 20 mg ONCE ONCE IV ; Start 12/06/16 at 08:45; Stop 12/06 at 08:46; Status DC Prednisone 20 mg 20 mg ONCE ONCE PO Last administered on 12/06/16 15:36; Start 12/06/16 at 13:00; Stop 12/06/16 at 13:01; Status DC Sodium Chloride (NS 1000 ml Inj) 1,000 ml @ 0 mls/hr Q0M PRN IV For Prime & Rinse Back Last administered on 12/12/16 09:33; Start 12/06/16 at 12:11 Heparin Sodium (Porcine) 8000 units 8,000 units UNSCH PRN IVF WITH DIALYSIS; Start 12/06/16 at 12:15 Sodium Chloride 1,000 ml @ 200 mls/hr Q5H PRN IV WITH DIALYSIS; Start 12/06/16 at 12:11 Sodium Chloride (NS 1000 ml Inj) 1,000 ml @ 0 mls/hr Q0M PRN IV WITH DIALYSIS; Start 12/06/16 at 12:11 Mannitol (Mannitol Inj) 12.5 gm UNSCH PRN IV WITH DIALYSIS; Start 12/06/16 at 12:15 Albumin Human (Albumin 25% Inj) 25 gm UNSCH PRN IV WITH DIALYSIS; Start at 12:15 IV Flush (NS Flush) 5 ml UNSCH PRN IVF WITH DIALYSIS; Start 12/06/16 at 12:15 Heparin Sodium (Porcine) (Heparin Inj) UNSCH PRN .XX WITH DIALYSIS Last administered on 12/14/16 16:39; Start 12/06/16 at 12:15 Gentamicin Sulfate (Gentamicin (Dialysis) Inj) 20 mg UNSCH PRN IV WITH DIALYSIS Last administered on 12/14/16 16:39; Start 12/06/16 at 12:15 Ondansetron HCl (Zofran Inj) 4 mg UNSCH PRN IV WITH DIALYSIS; Start 12/06/16 at 12:15 Acetaminophen (Tylenol) 650 mg UNSCH PRN PO for headach, pain, temp > 101F Last administered on 12/14/16 07:54; Start 12/06/16 at 12:15 Diphenhydramine HCl (Benadryl) 25 mg UNSCH PRN PO for hives/itching/anaphylaxis ; Start 12/06/16 at 12:15 Nitroglycerin (Nitrostat Sl) 0.4 mg UNSCH PRN SL CHEST PAIN; Start 12/06/16 at 12:15 Clonidine (Catapres) 0.1 mg UNSCH PRN PO for BP > 180/100 X 2 readings Last administered on 12/19/16 06:27; Start 12/06/16 at 12:15 Epoetin Blanco (Epogen Inj) 10,000 units UNSCH PRN IV WITH DIALYSIS Last administered on 12/14/16 16:39; Start 12/06/16 at 12:15 Gelatin (Gelfoam 12 Mm/7 Mm Top) 1 foam UNSCH PRN TOP SEE LABEL COMMENTS; Start 12/06/16 at 12:15 Furosemide (Lasix Inj) 20 mg ONCE ONCE IV Last administered on 12/07/16 00:18 ; Start 12/07/16 at 00:30; Stop 12/07/16 at 00:31; Status DC Megestrol Acetate (Megace Liq) 400 mg ONCE ONCE PO Last administered on 18:19; Start 12/07/16 at 14:00; Stop 12/07/16 at 14:01; Status DC Megestrol Acetate (Megace Liq) 400 mg DAILY PO Last administered on 12/20/16 08:50; Start 12/08/16 at 09:00 Heparin Sodium (Porcine) (Heparin Inj) 5,000 units Q12HR SQ Last administered on 12/20/16 08:50; Start 12/08/16 at 21:00 Phenytoin 300 mg 300 mg Q12HR PO Last administered on 12/20/16 09:24; Start at 21:00 Iron Sucrose 100 mg/Sodium Chloride 105 ml @ 105 mls/hr DAILY IV Last administered on 12/09/16 10:24; Start 12/09/16 at 09:00; Stop 12/11/16 at 09:59 ; Status DC Cefazolin Sodium/ Sodium Chloride (Ancef Inj/NS Inj) 100 ml @ 200 mls/hr ACCOUNTING CLERK IV ; Start 12/10/16 at 13:30; Stop 12/13/16 at 13:29; Status DC Cefazolin Sodium (Ancef Inj) 1,000 mg STK-MED ONCE IV Last administered on 12/11 10:37; Start 12/11/16 at 10:37; Stop 12/11/16 at 11:05; Status DC Propofol (Diprivan 200 Mg/20 ml Inj) 150 mg STK-MED ONCE IV ; Start 12/11/16 at 10:40; Stop 12/11/16 at 11:10; Status DC Levofloxacin (Levaquin) 250 mg Q48H PO Last administered on 12/17/16 16:45; Start 12/11/16 at 16:00; Stop 12/18/16 at 09:37; Status DC Phenylephrine HCl (Neosynephrine/ NS 1000 Mcg/10ml Syr) 100 mcg STK-MED ONCE IV ; Start 12/11/16 at 10:45; Stop 12/13/16 at 13:03; Status DC Fluconazole 100 mg 100 mg DAILY PO Last administered on 12/20/16 08:50; Start 12/16/16 at 11:30 Pharmacy Profile Note ([facility]) 0 ml @ 0 mls/hr UNSCH OTHER ; Start 12/16/16 at 11:30; Stop 12/16/16 at 14:18; Status DC Potassium Phosphate (K-Phos) 500 mg ONCE ONCE PO Last administered on 10:08; Start 12/18/16 at 09:00; Stop 12/18/16 at 09:01; Status DC Amlodipine Besylate (Norvasc) 5 mg DAILY PO Last administered on 12/19/16 08: 45; Start 12/18/16 at 11:00; Stop 12/19/16 at 09:45; Status DC Fluticasone Propionate (Flonase Evan Spr) 2 spray DAILY EACH NARE ; Start at 12:00 Potassium Chloride (KCl) 30 meq ONCE ONCE PO Last administered on 12/19/16 11 :33; Start 12/19/16 at 09:00; Stop 12/19/16 at 10:37; Status DC Nifedipine (Procardia Xl) 30 mg DAILY PO Last administered on 12/20/16 08:50; Start 12/20/16 at 09:00 Calcium Acetate 667 mg 667 mg TID PO Last administered on 12/20/16 09:23; Start 12/20/16 at 09:00 Sodium Chloride 1,000 ml @ 75 mls/hr [id number] IV ; Start 12/20/16 at 09:00; Stop 12/20/16 at 09:47; Status DC Sodium Chloride (1/2 NS 1000 ml Inj) 1,000 ml @ 65 mls/hr [id number] IV Last administered on 12/20/16 10:14; Start 12/20/16 at 10:00 Date of Insertion: Nov 15, 2016 A/P Assessment and Plan A/P 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 S/P extubation Complicated stay with occluded stent in the left main bronchus. Hematology follow-up appreciated; radiation oncology consulted and recommended radiation therapy. ESRD requiring HD. US kidney at [facility] rev findings consistent with chronic kidney disease. Tunnelled dialysis catheter was placed 12/04/16 ( right) at [facility]. non oliguric- awaiting renal recovery lasix on hold and started on IV fluid BMP in am and dialysis if needed accordingly Nephrology ff- currently on HD (TTS); this is on hold for now as noted above. hypertension- continue procardia- will monitor and adjust the regimen as needed hypokalemia; replaced BPH continue doxazosin 8 mg qhs . Bladder Mass Urology ff- plan for cystoscopy when patient stronger in the future- will reconsult urology if patient in optimum condition for surgery/ procedure - will require anesthesia Respiratory failure requiring O2 supplement - now improved Duonebs as need. S/P tx for PNA bronch sputum klebsiella + , treated at [facility] and finished course of abx per records). Blood cx were negative 11/07/16 ECHO 55-60% Iron deficiency Anemia- low Iron stores S/P EGD- gastritis, duodenitis, esophagitis S/P PEG 12/11 S/P IV Iron . PPI Left UE superficial thrombophlebitis-improved. UTI- +Pyuria- C with zabrina continue Diflucan. Seizure- Continue Dilantin. Seizure precautions. Stable. DVT ppx with SCD/TEDs PT/OT/ daily- deconditioning palliative care following. d/w oncology. Discharge Planning dc planning to SNF in progress. Regina Garcia MD Dec 20, 2016 12:15
[2016-12-20 14:26] VITALS: O2SAT 92
[2016-12-20 16:00] VITALS: BP 153/70; PULSE 85; RESP 28; TEMP 97.7; O2SAT 94
--- NOTE | 2016-12-20 18:45 | MB ---
cc: LIZABETH CHAPMAN DATE OF CONSULTATION 12/20/16 DATE OF 1945 This gentleman is known to have a squamous cell carcinoma of his lung with near complete collapse of his left lung. He is presently hoping to be transferred to [place] to be closer with [facility] son [facility] Unfortunately, there appears to be little or no progress on that account. He is not aware of any progress. I have discussed this with him. I have told him that if he remains in the hospital at the beginning of next week then we should seriously consider initiating treatment as soon as possible. If a transfer does come through for him, they can assume treatment at his new facility. Dr. Hobbs has concern that he will be well enough to transfer even if the transfer is available for him and, as such, I think if treatment is to be delivered we will need to start this soon. I have discussed this briefly with him today and he indicated agreement. I will review him again on Friday. MD PRIYA Robin/ /5:44 PM /6:43 PM
[2016-12-20 20:00] VITALS: BP 146/71; PULSE 83; PULSE 85; RESP 20; TEMP 92.7; TEMP 97.2; O2SAT 97
[2016-12-20] MEDS: DOXAZOSIN MESYLATE 4 MG TAB PO SCH (20:06)
[2016-12-20] MEDS: ATORVASTATIN 40 MG TAB PO SCH (20:06)
[2016-12-21] VITALS (8 sets, daily range): BP systolic 133–158; BP diastolic 63–81; PULSE 82–94; RESP 16–20; TEMP 96.8–98.5; O2SAT 92–100
[2016-12-21] MEDS: DOCUSATE SODIUM 100 MG CAP PO SCH ×2 (05:36→18:06)
[2016-12-21 05:56] LABS: BICARBONATE 30.9 MEQ/L (21.0-32.0); POTASSIUM 3.8 MEQ/L (3.5-5.1)
[2016-12-21] MEDS: SODIUM CHLORIDE 0.9% FLUSH 5 ML FLUSH FLUSH SCH ×2 (09:00→20:15)
[2016-12-21] MEDS: CALCIUM ACETATE 667 MG CAP PO SCH ×3 (09:51→18:06)
[2016-12-21] MEDS: FERROUS SULFATE 300 MG /5ML UDC PO SCH (09:51)
[2016-12-21] MEDS: FLUTICASONE PROPIONATE 50 MCG/ACT 16 GM NASAL SPRAY EACH NARE SCH (09:51)
[2016-12-21] MEDS: MEGESTROL ACETATE SUSP 400 MG/10 ML CUP PO SCH (09:52)
[2016-12-21] MEDS: FLUCONAZOLE 100 MG TAB PO SCH (09:52)
[2016-12-21] MEDS: NIFEdipine 30 MG SUSTAINED RELEASE TAB PO SCH (09:52)
[2016-12-21] MEDS: PHENYTOIN SUSP 100 MG/4 ML CUP PO SCH ×2 (09:53→20:15)
[2016-12-21] MEDS: HEPARIN SODIUM - SQ 10,000 UNITS/ML VIAL SQ SCH ×2 (09:54→20:15)
--- NOTE | 2016-12-21 11:19 | HHI.PR ---
Subjective Remarks resting comfortably with no distress. no sob. denies pain. good urine output. Objective Vitals Vital Signs Date Time Temp Pulse Resp B/P Pulse Ox O2 Delivery O2 Flow Rate FiO2 12/21/16 10:56 94 Nasal Cannula 3.00 12/21/16 10:00 Nasal Cannula 3.00 12/21/16 08:00 98.3 90 18 152/71 95 12/21/16 04:00 97.6 84 20 154/75 96 12/21/16 03:03 Nasal Cannula 3.00 Humidified 12/21/16 00:00 98.5 94 20 155/78 98 12/20/16 20:00 85 12/20/16 20:00 97.2 83 20 146/71 97 12/20/16 16:00 97.7 85 28 153/70 94 12/20/16 14:26 92 Nasal Cannula 2.00 12/20/16 12:00 96.2 87 20 138/76 92 I/O 12/20/16 12/20/16 12/20/16 12/21/16 12/21/16 12/21/16 07:00 15:00 23:00 07:00 15:00 23:00 Intake Total 700 ml 478 ml 995 ml 1924 ml Output Total 500 ml 1050 ml 1000 ml Balance 200 ml 478 ml -55 ml 924 ml Intake Oral 180 ml 480 ml 480 ml IV Total 298 ml 485 ml 658 ml Tube Feeding 500 ml 756 ml Tube Irrigant 30 ml 30 ml Other 200 ml Output Urine Total 500 ml 1050 ml 1000 ml # Bowel Movements 1 Result Diagram: 12/18/16 0333 12/21/16 0437 Imaging Last Impressions Upper Extremity Ultrasound 12/11/16 1506 Signed Impressions: Service Date/Time: Sunday, December 11, 2016 18:00 - CONCLUSION: Superficial thrombophlebitis, extensive edema and nonspecific fluid collections in the subcutaneous tissues. Shawn Reyes MD Head CT 12/11/16 0000 Signed Impressions: Service Date/Time: Sunday, December 11, 2016 20:00 - CONCLUSION: Slight atrophic and small vessel ischemic changes without any evidence for acute hemorrhage or mass effect. Shawn Reyes MD Renal Ultrasound 12/09/16 0000 Signed Impressions: Service Date/Time: Friday, December 09, 2016 15:16 - CONCLUSION: 1. 8.4 cm mass lesion at the base of the bladder. This may represent an intrinsic mass of the bladder versus a prominent anterior lobe of the prostate. 2. Otherwise, urinary bladder is partially decompressed with a Lipscomb catheter. 3. Both kidneys are sonographically normal. Roby Horta MD Chest X-Ray 12/05/16 1700 Signed Impressions: Service Date/Time: November 18:52 - CONCLUSION: Left lung/hemithorax remain essentially completely opacified and with volume loss. Patchy consolidation on the right, mainly at the base. Masslike area right mid lung potentially some loculated pleural fluid. Paul Sinha MD Objective Remarks GENERAL: This is a well-nourished, well-developed patient, in no apparent distress. CARDIOVASCULAR: Regular rate and regular rhythm without murmurs, gallops, or rubs. RESPIRATORY: Clear to auscultation. Breath sounds equal bilaterally. No wheezes , rales, or rhonchi. GASTROINTESTINAL: Abdomen soft, non-tender, nondistended. Normal, active bowel sounds MUSCULOSKELETAL: Extremities without clubbing, cyanosis, or edema. NEURO: Alert & Oriented x4 to person, place, time, situation. Moves all ext x4 Procedures 12/11- EGD- esophagitis, gastritis, duodenitis PEG placement Medications and IVs Current Medications Sodium Chloride (NS 1000 ml Inj) 1,000 ml @ 75 mls/hr [id number] IV Last administered on 12/06/16 05:59; Start 12/05/16 at 18:00; Stop 12/06/16 at 12:03 ; Status DC IV Flush (NS Flush) 2 ml UNSCH PRN FLUSH FLUSH AFTER USING IV ACCESS; Start at 17:00 IV Flush (NS Flush) 2 ml BID FLUSH Last administered on 12/20/16 20:07; Start 12/05/16 at 21:00 Ondansetron HCl (Zofran Inj) 4 mg Q6H PRN IVP NAUSEA OR VOMITING; Start at 18:00 Bisacodyl (Dulcolax Supp) 10 mg DAILY PRN NV CONSTIPATION; Start 12/05/16 at 18 :00 Docusate Sodium (Colace) 100 mg Q12H PO Last administered on 12/21/16 05:36; Start 12/05/16 at 18:00 Naloxone HCl (Narcan Inj) 0.4 mg UNSCH PRN IV SEE LABEL COMMENTS; Start at 17:00 Phenytoin (Dilantin) 300 mg BID PO Last administered on 12/07/16 20:57; Start 12/05/16 at 21:00; Stop 12/08/16 at 10:47; Status DC Terazosin HCl (Hytrin) 1 mg HS PO ; Start 12/05/16 at 21:00; Stop 12/05/16 at 21 :00; Status DC Enalaprilat (Vasotec Inj) 2.5 mg Q6H PRN IV PUSH SBP>160, DBP>90 Last administered on 12/05/16 18:35; Start 12/05/16 at 18:00 Ferrous Sulfate (Ferrous Sulfate Liq) 300 mg DAILY PO Last administered on 09:51; Start 12/06/16 at 09:00 Doxazosin Mesylate (Cardura) 8 mg HS PO Last administered on 12/20/16 20:06; Start 12/05/16 at 21:00 Atorvastatin Calcium (Lipitor) 40 mg HS PO Last administered on 12/20/16 20:06 ; Start 12/05/16 at 21:00 Furosemide (Lasix Liq) 40 mg DAILY TUBE Last administered on 12/20/16 08:50; Start 12/06/16 at 09:00; Status Hold Senna/Docusate Sodium (Jacinda-Colace) 2 tab BID PRN PO CONSTIPATION; Start at 19:45 Lactulose (Lactulose Liq) 30 ml TID PRN PO CONSTIPATION; Start 12/05/16 at 19: 45 Bisacodyl (Dulcolax Supp) 10 mg DAILY PRN NV CONSTIPATION; Start 12/05/16 at 19 :45; Status Cancel Magnesium Hydroxide (Milk Of Magnesia Liq) 30 ml Q6H PRN PO CONSTIPATION; Start 12/05/16 at 19:45 Furosemide 20 mg 20 mg ONCE ONCE IV PUSH ; Start 12/06/16 at 07:00; Stop at 07:01; Status DC Sodium Chloride (NS 250 ml Inj) 250 ml @ 15 mls/hr ONCE ONCE IV Last administered on 12/06/16 11:00; Start 12/06/16 at 08:45; Stop 12/07/16 at 01:24 ; Status DC Acetaminophen (Tylenol) 650 mg Q4H PRN PO SEE LABEL COMMENTS; Start 12/06/16 at 08:45; Stop 12/06/16 at 12:46; Status DC Diphenhydramine HCl (Benadryl) 25 mg Q4H PRN PO SEE LABEL COMMENTS; Start 12/06 at 08:45; Stop 12/06/16 at 12:46; Status DC Furosemide (Lasix Inj) 20 mg ONCE ONCE IV ; Start 12/06/16 at 08:45; Stop 12/06 at 08:46; Status DC Prednisone 20 mg 20 mg ONCE ONCE PO Last administered on 12/06/16 15:36; Start 12/06/16 at 13:00; Stop 12/06/16 at 13:01; Status DC Sodium Chloride (NS 1000 ml Inj) 1,000 ml @ 0 mls/hr Q0M PRN IV For Prime & Rinse Back Last administered on 12/12/16 09:33; Start 12/06/16 at 12:11 Heparin Sodium (Porcine) 8000 units 8,000 units UNSCH PRN IVF WITH DIALYSIS; Start 12/06/16 at 12:15 Sodium Chloride 1,000 ml @ 200 mls/hr Q5H PRN IV WITH DIALYSIS; Start 12/06/16 at 12:11 Sodium Chloride (NS 1000 ml Inj) 1,000 ml @ 0 mls/hr Q0M PRN IV WITH DIALYSIS; Start 12/06/16 at 12:11 Mannitol (Mannitol Inj) 12.5 gm UNSCH PRN IV WITH DIALYSIS; Start 12/06/16 at 12:15 Albumin Human (Albumin 25% Inj) 25 gm UNSCH PRN IV WITH DIALYSIS; Start at 12:15 IV Flush (NS Flush) 5 ml UNSCH PRN IVF WITH DIALYSIS; Start 12/06/16 at 12:15 Heparin Sodium (Porcine) (Heparin Inj) UNSCH PRN .XX WITH DIALYSIS Last administered on 12/14/16 16:39; Start 12/06/16 at 12:15 Gentamicin Sulfate (Gentamicin (Dialysis) Inj) 20 mg UNSCH PRN IV WITH DIALYSIS Last administered on 12/14/16 16:39; Start 12/06/16 at 12:15 Ondansetron HCl (Zofran Inj) 4 mg UNSCH PRN IV WITH DIALYSIS; Start 12/06/16 at 12:15 Acetaminophen (Tylenol) 650 mg UNSCH PRN PO for headach, pain, temp > 101F Last administered on 12/14/16 07:54; Start 12/06/16 at 12:15 Diphenhydramine HCl (Benadryl) 25 mg UNSCH PRN PO for hives/itching/anaphylaxis ; Start 12/06/16 at 12:15 Nitroglycerin (Nitrostat Sl) 0.4 mg UNSCH PRN SL CHEST PAIN; Start 12/06/16 at 12:15 Clonidine (Catapres) 0.1 mg UNSCH PRN PO for BP > 180/100 X 2 readings Last administered on 12/19/16 06:27; Start 12/06/16 at 12:15 Epoetin Blanco (Epogen Inj) 10,000 units UNSCH PRN IV WITH DIALYSIS Last administered on 12/14/16 16:39; Start 12/06/16 at 12:15 Gelatin (Gelfoam 12 Mm/7 Mm Top) 1 foam UNSCH PRN TOP SEE LABEL COMMENTS; Start 12/06/16 at 12:15 Furosemide (Lasix Inj) 20 mg ONCE ONCE IV Last administered on 12/07/16 00:18 ; Start 12/07/16 at 00:30; Stop 12/07/16 at 00:31; Status DC Megestrol Acetate (Megace Liq) 400 mg ONCE ONCE PO Last administered on 18:19; Start 12/07/16 at 14:00; Stop 12/07/16 at 14:01; Status DC Megestrol Acetate (Megace Liq) 400 mg DAILY PO Last administered on 12/21/16 09 :52; Start 12/08/16 at 09:00 Heparin Sodium (Porcine) (Heparin Inj) 5,000 units Q12HR SQ Last administered on 12/21/16 09:54; Start 12/08/16 at 21:00 Phenytoin 300 mg 300 mg Q12HR PO Last administered on 4/1/17at 09:53; Start at 21:00 Iron Sucrose 100 mg/Sodium Chloride 105 ml @ 105 mls/hr DAILY IV Last administered on 12/09/16 10:24; Start 12/09/16 at 09:00; Stop 12/11/16 at 09:59 ; Status DC Cefazolin Sodium/ Sodium Chloride (Ancef Inj/NS Inj) 100 ml @ 200 mls/hr [employer] IV ; Start 12/10/16 at 13:30; Stop 12/13/16 at 13:29; Status DC Cefazolin Sodium (Ancef Inj) 1,000 mg STK-MED ONCE IV Last administered on 12/11 10:37; Start 12/11/16 at 10:37; Stop 12/11/16 at 11:05; Status DC Propofol (Diprivan 200 Mg/20 ml Inj) 150 mg STK-MED ONCE IV ; Start 12/11/16 at 10:40; Stop 12/11/16 at 11:10; Status DC Levofloxacin (Levaquin) 250 mg Q48H PO Last administered on 12/17/16 16:45; Start 12/11/16 at 16:00; Stop 12/18/16 at 09:37; Status DC Phenylephrine HCl (Neosynephrine/ NS 1000 Mcg/10ml Syr) 100 mcg STK-MED ONCE IV ; Start 12/11/16 at 10:45; Stop 12/13/16 at 13:03; Status DC Fluconazole 100 mg 100 mg DAILY PO Last administered on 12/21/16 09:52; Start 12/16/16 at 11:30 Pharmacy Profile Note ([facility]) 0 ml @ 0 mls/hr UNSCH OTHER ; Start 12/16/16 at 11:30; Stop 12/16/16 at 14:18; Status DC Potassium Phosphate (K-Phos) 500 mg ONCE ONCE PO Last administered on 10:08; Start 12/18/16 at 09:00; Stop 12/18/16 at 09:01; Status DC Amlodipine Besylate (Norvasc) 5 mg DAILY PO Last administered on 12/19/16 08: 45; Start 12/18/16 at 11:00; Stop 12/19/16 at 09:45; Status DC Fluticasone Propionate (Flonase Evan Spr) 2 spray DAILY EACH NARE Last administered on 12/21/16 09:51; Start 12/18/16 at 12:00 Potassium Chloride (KCl) 30 meq ONCE ONCE PO Last administered on 12/19/16 11 :33; Start 12/19/16 at 09:00; Stop 12/19/16 at 10:37; Status DC Nifedipine (Procardia Xl) 30 mg DAILY PO Last administered on 12/21/16 09:52; Start 12/20/16 at 09:00 Calcium Acetate 667 mg 667 mg TID PO Last administered on 12/21/16 09:51; Start 12/20/16 at 09:00 Sodium Chloride 1,000 ml @ 75 mls/hr [id number] IV ; Start 12/20/16 at 09:00; Stop 12/20/16 at 09:47; Status DC Sodium Chloride (1/2 NS 1000 ml Inj) 1,000 ml @ 65 mls/hr [id number] IV Last administered on 12/20/16 23:23; Start 12/20/16 at 10:00 Date of Insertion: Nov 15, 2016 A/P Assessment and Plan A/P 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 S/P extubation Complicated stay with occluded stent in the left main bronchus. Hematology follow-up appreciated; radiation oncology consulted and recommended radiation therapy. ESRD requiring HD. US kidney at [facility] rev findings consistent with chronic kidney disease. Tunnelled dialysis catheter was placed 12/04/16 ( right) at [facility]. non oliguric- however BUN/ Cr slightly worse today. lasix on hold and started on IV fluid HD per nephrology hypertension- continue procardia- will monitor and adjust the regimen as needed hypokalemia; replaced BPH continue doxazosin 8 mg qhs . Bladder Mass Urology ff- plan for cystoscopy when patient stronger in the future- will reconsult urology if patient in optimum condition for surgery/ procedure - will require anesthesia Respiratory failure requiring O2 supplement - now improved Duonebs as need. S/P tx for PNA bronch sputum klebsiella + , treated at [facility] and finished course of abx per records). Blood cx were negative 11/07/16 ECHO 55-60% Iron deficiency Anemia- low Iron stores S/P EGD- gastritis, duodenitis, esophagitis S/P PEG 12/11/ S/P IV Iron . PPI Left UE superficial thrombophlebitis-improved. UTI- +Pyuria- C with zabrina continue Diflucan. Seizure- Continue Dilantin. Seizure precautions. Stable. DVT ppx with SCD/TEDs PT/OT/ daily- deconditioning palliative care following. Discharge Planning dc planning to SNF in progress. Regina Garcia MD Dec 21, 2016 11:19
--- NOTE | 2016-12-21 11:56 | HHI.NPPN ---
Subjective General Problems: Anemia, Edema Renal Failure: Acute History of Present Illness 71 y/o male pt. Transferred to [facility] from [facility] with renal failure from possible ATN. Additional Remarks Patient is alert, no SOB, started eating better. Review of Systems General Constitutional: Fever, Fatigue Objective Data Data 12/20/16 12/21/16 19:00 07:00 Intake Total 478 ml 2919 ml Output Total 750 ml 1300 ml Balance -272 ml 1619 ml Intake Oral 180 ml 960 ml IV Total 298 ml 1143 ml Tube Feeding 756 ml Tube Irrigant 60 ml Output Urine Total 750 ml 1300 ml # Bowel Movements 1 Vital Signs Date Time Temp Pulse Resp B/P Pulse Ox O2 Delivery O2 Flow Rate FiO2 12/21/16 10:56 94 Nasal Cannula 3.00 12/21/16 10:00 Nasal Cannula 3.00 12/21/16 08:00 98.3 90 18 152/71 95 12/21/16 04:00 97.6 84 20 154/75 96 12/21/16 03:03 Nasal Cannula 3.00 Humidified 12/21/16 00:00 98.5 94 20 155/78 98 12/20/16 20:00 85 12/20/16 20:00 97.2 83 20 146/71 97 12/20/16 16:00 97.7 85 28 153/70 94 12/20/16 14:26 92 Nasal Cannula 2.00 12/20/16 12:00 96.2 87 20 138/76 92 -: 12/18/16 0333 12/21/16 0437 Tubes & Lines: Miranda Tubes & Lines Comment PEG, Physical Exam General Appearance: No Acute Distress, Comfortable Eyes Eye Exam: Pupils Equal, Pupils Reactive Throat Throat Exam: Oral Mucosa Stem & Moist Pulmonary Resp Exam: Breath Sounds Equal, No Distress, Decreased Bases, Diminished Breath Sounds Cardiology CV Exam: Regular, Normal Sinus Rhythm, Good Perfusion, Murmur Gastrointestinal/Abdomen GI Exam: Soft, Non-Tender, Bowel Sounds Present, Positive Bowel Movement Genitourinary Exam: Clear Urine Musculoskeletal MS Exam: Joints Intact, Atrophy, Unable to Ambulate Integumentary Skin Exam: Clear, Warm, Dry, Intact Extremeties Extremities Exam: No Edema Neurologic Neuro Exam: Alert, Awake, Oriented Psychiatric Psych Exam: Appropriate Responses Assessment/Plan Discussed Condition With: Patient Assessment Summary: TODD/Acute Renal Failure, Acute Tubular Necrosis Electrolyte Assessment: Hypokalemia Problem List: (1) Acute renal failure Plan: He had creatinine 0.77 in October Renal failure ATN due to PEA arrest On IVF, urine out put is better. Off Lasix. Last HD was on . this week. Creatinine and BUN almost same. Hold HD for now. Watch for renal recovery. (2) Bronchiolar obstruction Plan: s/p stent placement, dx of squamous cell carcinoma med oncology following (3) Mass of left lung Plan: oncology has evaluated, appreciate their recommendations waiting on pathology report from [facility] he is unstable for systemic treatment at this time depending on timing of possible transfer to [place], may be candidate for radiation therapy (4) Acute respiratory failure Plan: extubated, on nasal cannula continuous on tube feeding at night with oral nutrition s/p PEG placement; swallowing has improved but oral intake/caloric intake is not adequate speech therapy following (5) UTI (urinary tract infection) Plan: afebrile has indwelling miranda but will keep it in due to bladder mass on po Diflucan (6) Anemia Plan: Has been seen by Hematology. transfused on admission and given Venofer for iron deficiency also on oral iron Epogen with HD Hemoccult positive , cannot tolerate bowel prep for colonoscopy (7) Bladder mass Plan: urology following, bladder US report noted he will need cystoscopy with TURBT when more stable Problem Qualifiers (1) UTI (urinary tract infection): Remigio Denise MD Dec 21, 2016 11:56
[2016-12-21] MEDS: SODIUM CHLOR 0.45% 1000 ML INJ 1,000 ML IV SCH (15:04)
[2016-12-21] MEDS: ATORVASTATIN 40 MG TAB PO SCH (20:15)
[2016-12-21] MEDS: DOXAZOSIN MESYLATE 4 MG TAB PO SCH (20:15)
[2016-12-22] VITALS (7 sets, daily range): BP systolic 136–171; BP diastolic 54–84; PULSE 85–92; RESP 17–20; TEMP 96.8–98.7; O2SAT 93–99
[2016-12-22] MEDS: SODIUM CHLOR 0.45% 1000 ML INJ 1,000 ML IV SCH ×2 (05:06→20:24)
[2016-12-22] MEDS: DOCUSATE SODIUM 100 MG CAP PO SCH ×2 (05:06→18:05)
[2016-12-22] MEDS: FLUCONAZOLE 100 MG TAB PO SCH (08:03)
[2016-12-22] MEDS: CALCIUM ACETATE 667 MG CAP PO SCH ×3 (08:03→18:05)
[2016-12-22] MEDS: NIFEdipine 30 MG SUSTAINED RELEASE TAB PO SCH (08:03)
[2016-12-22] MEDS: FERROUS SULFATE 300 MG /5ML UDC PO SCH (08:05)
[2016-12-22] MEDS: PHENYTOIN SUSP 100 MG/4 ML CUP PO SCH ×2 (08:06→20:23)
[2016-12-22] MEDS: SODIUM CHLORIDE 0.9% FLUSH 5 ML FLUSH FLUSH SCH ×2 (08:06→20:23)
[2016-12-22] MEDS: MEGESTROL ACETATE SUSP 400 MG/10 ML CUP PO SCH (08:06)
[2016-12-22] MEDS: FLUTICASONE PROPIONATE 50 MCG/ACT 16 GM NASAL SPRAY EACH NARE SCH (08:07)
[2016-12-22] MEDS: HEPARIN SODIUM - SQ 10,000 UNITS/ML VIAL SQ SCH ×2 (09:41→20:23)
--- NOTE | 2016-12-22 11:40 | HHI.NPPN ---
Subjective General Problems: Anemia, Edema Renal Failure: Acute History of Present Illness 71 y/o male pt. Transferred to [facility] from [facility] with renal failure from possible ATN. Additional Remarks Patient is alert, no SOB, feeling better today, not in distress. Review of Systems General Constitutional: Fever, Fatigue Objective Data Data 12/21/16 12/22/16 19:00 07:00 Intake Total 967 ml 2422 ml Output Total 650 ml 1450 ml Balance 317 ml 972 ml Intake Oral 390 ml 720 ml IV Total 577 ml 922 ml Tube Feeding 750 ml Tube Irrigant 30 ml Output Urine Total 650 ml 1450 ml # Bowel Movements 0 Vital Signs Date Time Temp Pulse Resp B/P Pulse Ox O2 Delivery O2 Flow Rate FiO2 12/22/16 08:00 98.7 87 17 168/84 93 12/22/16 08:00 Nasal Cannula 3.00 Humidified 12/22/16 06:56 94 Nasal Cannula 2.00 12/22/16 04:00 97.3 92 18 153/69 99 12/22/16 00:00 97.9 89 18 146/74 97 12/21/16 20:11 Nasal Cannula 3.00 Humidified 12/21/16 20:11 90 12/21/16 20:00 96.8 93 18 158/81 100 12/21/16 16:00 98.2 82 16 141/69 92 12/21/16 12:00 98.2 84 17 133/63 94 -: 12/18/16 0333 12/21/16 0437 Tubes & Lines: Miranda Tubes & Lines Comment PEG, Physical Exam General Appearance: No Acute Distress, Comfortable Eyes Eye Exam: Pupils Equal, Pupils Reactive Throat Throat Exam: Oral Mucosa [place] & Moist Pulmonary Resp Exam: Breath Sounds Equal, No Distress, Decreased Bases, Diminished Breath Sounds Cardiology CV Exam: Regular, Normal Sinus Rhythm, Good Perfusion, Murmur Gastrointestinal/Abdomen GI Exam: Soft, Non-Tender, Bowel Sounds Present, Positive Bowel Movement Genitourinary Exam: Clear Urine Musculoskeletal MS Exam: Joints Intact, Atrophy, Unable to Ambulate Integumentary Skin Exam: Clear, Warm, Dry, Intact Extremeties Extremities Exam: No Edema Neurologic Neuro Exam: Alert, Awake, Oriented Psychiatric Psych Exam: Appropriate Responses Assessment/Plan Discussed Condition With: Patient Assessment Summary: TODD/Acute Renal Failure, Acute Tubular Necrosis Electrolyte Assessment: Hypokalemia Problem List: (1) Acute renal failure Plan: He had creatinine 0.77 in October Renal failure ATN due to PEA arrest On IVF, urine out put is better. Off Lasix. Last HD was on . this week. Creatinine and BUN almost same. Hold HD for now. Watch for renal recovery. Remain non oliguric. Still has the PermCath. (2) Bronchiolar obstruction Plan: s/p stent placement, dx of squamous cell carcinoma med oncology following (3) Mass of left lung Plan: oncology has evaluated, appreciate their recommendations waiting on pathology report from [facility] he is unstable for systemic treatment at this time depending on timing of possible transfer to [place], may be candidate for radiation therapy (4) Acute respiratory failure Plan: extubated, on nasal cannula continuous on tube feeding at night with oral nutrition s/p PEG placement; swallowing has improved but oral intake/caloric intake is not adequate speech therapy following (5) UTI (urinary tract infection) Plan: afebrile has indwelling miranda but will keep it in due to bladder mass on po Diflucan (6) Anemia Plan: Has been seen by Hematology. transfused on admission and given Venofer for iron deficiency also on oral iron Epogen with HD Hemoccult positive , cannot tolerate bowel prep for colonoscopy (7) Bladder mass Plan: urology following, bladder US report noted he will need cystoscopy with TURBT when more stable Problem Qualifiers (1) UTI (urinary tract infection): Remigio Denise MD Dec 22, 2016 11:40
--- NOTE | 2016-12-22 12:05 | HHI.PR ---
Subjective Remarks resting comfortably with no distress. no new complaints. good urine output. Objective Vitals Vital Signs Date Time Temp Pulse Resp B/P Pulse Ox O2 Delivery O2 Flow Rate FiO2 12/22/16 08:00 98.7 87 17 168/84 93 12/22/16 08:00 Nasal Cannula 3.00 Humidified 12/22/16 06:56 94 Nasal Cannula 2.00 12/22/16 04:00 97.3 92 18 153/69 99 12/22/16 00:00 97.9 89 18 146/74 97 12/21/16 20:11 Nasal Cannula 3.00 Humidified 12/21/16 20:11 90 12/21/16 20:00 96.8 93 18 158/81 100 12/21/16 16:00 98.2 82 16 141/69 92 I/O 12/21/16 12/21/16 12/21/16 12/22/16 12/22/16 12/22/16 07:00 15:00 23:00 07:00 15:00 23:00 Intake Total 1924 ml 967 ml 594 ml 1828 ml Output Total 1000 ml 650 ml 550 ml 900 ml Balance 924 ml 317 ml 44 ml 928 ml Intake Oral 480 ml 390 ml 240 ml 480 ml IV Total 658 ml 577 ml 354 ml 568 ml Tube Feeding 756 ml 750 ml Tube Irrigant 30 ml 30 ml Output Urine Total 1000 ml 650 ml 550 ml 900 ml # Bowel Movements 0 Result Diagram: 12/18/16 0333 12/21/16 0437 Imaging Last Impressions Upper Extremity Ultrasound 12/11/16 1506 Signed Impressions: Service Date/Time: Sunday, December 11, 2016 18:00 - CONCLUSION: Superficial thrombophlebitis, extensive edema and nonspecific fluid collections in the subcutaneous tissues. Shawn Reyes MD Head CT 12/11/16 0000 Signed Impressions: Service Date/Time: Sunday, December 11, 2016 20:00 - CONCLUSION: Slight atrophic and small vessel ischemic changes without any evidence for acute hemorrhage or mass effect. Shawn Reyes MD Renal Ultrasound 12/09/16 0000 Signed Impressions: Service Date/Time: Friday, December 09, 2016 15:16 - CONCLUSION: 1. 8.4 cm mass lesion at the base of the bladder. This may represent an intrinsic mass of the bladder versus a prominent anterior lobe of the prostate. 2. Otherwise, urinary bladder is partially decompressed with a Lipscomb catheter. 3. Both kidneys are sonographically normal. Roby Horta MD Chest X-Ray 12/05/16 1700 Signed Impressions: Service Date/Time: November 18:52 - CONCLUSION: Left lung/hemithorax remain essentially completely opacified and with volume loss. Patchy consolidation on the right, mainly at the base. Masslike area right mid lung potentially some loculated pleural fluid. Paul Sinha MD Objective Remarks GENERAL: This is a well-nourished, well-developed patient, in no apparent distress. CARDIOVASCULAR: Regular rate and regular rhythm without murmurs, gallops, or rubs. RESPIRATORY: Clear to auscultation. Breath sounds equal bilaterally. No wheezes , rales, or rhonchi. GASTROINTESTINAL: Abdomen soft, non-tender, nondistended. Normal, active bowel sounds MUSCULOSKELETAL: Extremities without clubbing, cyanosis, or edema. NEURO: Alert & Oriented x4 to person, place, time, situation. Moves all ext x4 Procedures 12/11- EGD- esophagitis, gastritis, duodenitis PEG placement Medications and IVs Current Medications Sodium Chloride (NS 1000 ml Inj) 1,000 ml @ 75 mls/hr [id number] IV Last administered on 12/06/16 05:59; Start 12/05/16 at 18:00; Stop 12/06/16 at 12:03 ; Status DC IV Flush (NS Flush) 2 ml UNSCH PRN FLUSH FLUSH AFTER USING IV ACCESS; Start at 17:00 IV Flush (NS Flush) 2 ml BID FLUSH Last administered on 12/20/16 20:07; Start 12/05/16 at 21:00 Ondansetron HCl (Zofran Inj) 4 mg Q6H PRN IVP NAUSEA OR VOMITING; Start at 18:00 Bisacodyl (Dulcolax Supp) 10 mg DAILY PRN RI CONSTIPATION; Start 12/05/16 at 18 :00 Docusate Sodium (Colace) 100 mg Q12H PO Last administered on 12/22/16 05:06; Start 12/05/16 at 18:00 Naloxone HCl (Narcan Inj) 0.4 mg UNSCH PRN IV SEE LABEL COMMENTS; Start at 17:00 Phenytoin (Dilantin) 300 mg BID PO Last administered on 12/07/16 20:57; Start 12/05/16 at 21:00; Stop 12/08/16 at 10:47; Status DC Terazosin HCl (Hytrin) 1 mg HS PO ; Start 12/05/16 at 21:00; Stop 12/05/16 at 21 :00; Status DC Enalaprilat (Vasotec Inj) 2.5 mg Q6H PRN IV PUSH SBP>160, DBP>90 Last administered on 12/05/16 18:35; Start 12/05/16 at 18:00 Ferrous Sulfate (Ferrous Sulfate Liq) 300 mg DAILY PO Last administered on 08:05; Start 12/06/16 at 09:00 Doxazosin Mesylate (Cardura) 8 mg HS PO Last administered on 12/21/16 20:15; Start 12/05/16 at 21:00 Atorvastatin Calcium (Lipitor) 40 mg HS PO Last administered on 12/21/16 20:15 ; Start 12/05/16 at 21:00 Furosemide (Lasix Liq) 40 mg DAILY TUBE Last administered on 12/20/16 08:50; Start 12/06/16 at 09:00; Status Hold Senna/Docusate Sodium (Jacinda-Colace) 2 tab BID PRN PO CONSTIPATION; Start at 19:45 Lactulose (Lactulose Liq) 30 ml TID PRN PO CONSTIPATION; Start 12/05/16 at 19: 45 Bisacodyl (Dulcolax Supp) 10 mg DAILY PRN RI CONSTIPATION; Start 12/05/16 at 19 :45; Status Cancel Magnesium Hydroxide (Milk Of Magnesia Liq) 30 ml Q6H PRN PO CONSTIPATION; Start 12/05/16 at 19:45 Furosemide 20 mg 20 mg ONCE ONCE IV PUSH ; Start 12/06/16 at 07:00; Stop at 07:01; Status DC Sodium Chloride (NS 250 ml Inj) 250 ml @ 15 mls/hr ONCE ONCE IV Last administered on 12/06/16 11:00; Start 12/06/16 at 08:45; Stop 12/07/16 at 01:24 ; Status DC Acetaminophen (Tylenol) 650 mg Q4H PRN PO SEE LABEL COMMENTS; Start 12/06/16 at 08:45; Stop 12/06/16 at 12:46; Status DC Diphenhydramine HCl (Benadryl) 25 mg Q4H PRN PO SEE LABEL COMMENTS; Start 12/06 at 08:45; Stop 12/06/16 at 12:46; Status DC Furosemide (Lasix Inj) 20 mg ONCE ONCE IV ; Start 12/06/16 at 08:45; Stop 12/06 at 08:46; Status DC Prednisone 20 mg 20 mg ONCE ONCE PO Last administered on 12/06/16 15:36; Start 12/06/16 at 13:00; Stop 12/06/16 at 13:01; Status DC Sodium Chloride (NS 1000 ml Inj) 1,000 ml @ 0 mls/hr Q0M PRN IV For Prime & Rinse Back Last administered on 12/12/16 09:33; Start 12/06/16 at 12:11 Heparin Sodium (Porcine) 8000 units 8,000 units UNSCH PRN IVF WITH DIALYSIS; Start 12/06/16 at 12:15 Sodium Chloride 1,000 ml @ 200 mls/hr Q5H PRN IV WITH DIALYSIS; Start 12/06/16 at 12:11 Sodium Chloride (NS 1000 ml Inj) 1,000 ml @ 0 mls/hr Q0M PRN IV WITH DIALYSIS; Start 12/06/16 at 12:11 Mannitol (Mannitol Inj) 12.5 gm UNSCH PRN IV WITH DIALYSIS; Start 12/06/16 at 12:15 Albumin Human (Albumin 25% Inj) 25 gm UNSCH PRN IV WITH DIALYSIS; Start at 12:15 IV Flush (NS Flush) 5 ml UNSCH PRN IVF WITH DIALYSIS; Start 12/06/16 at 12:15 Heparin Sodium (Porcine) (Heparin Inj) UNSCH PRN .XX WITH DIALYSIS Last administered on 12/14/16 16:39; Start 12/06/16 at 12:15 Gentamicin Sulfate (Gentamicin (Dialysis) Inj) 20 mg UNSCH PRN IV WITH DIALYSIS Last administered on 12/14/16 16:39; Start 12/06/16 at 12:15 Ondansetron HCl (Zofran Inj) 4 mg UNSCH PRN IV WITH DIALYSIS; Start 12/06/16 at 12:15 Acetaminophen (Tylenol) 650 mg UNSCH PRN PO for headach, pain, temp > 101F Last administered on 12/14/16 07:54; Start 12/06/16 at 12:15 Diphenhydramine HCl (Benadryl) 25 mg UNSCH PRN PO for hives/itching/anaphylaxis ; Start 12/06/16 at 12:15 Nitroglycerin (Nitrostat Sl) 0.4 mg UNSCH PRN SL CHEST PAIN; Start 12/06/16 at 12:15 Clonidine (Catapres) 0.1 mg UNSCH PRN PO for BP > 180/100 X 2 readings Last administered on 12/19/16 06:27; Start 12/06/16 at 12:15 Epoetin Blanco (Epogen Inj) 10,000 units UNSCH PRN IV WITH DIALYSIS Last administered on 12/14/16 16:39; Start 12/06/16 at 12:15 Gelatin (Gelfoam 12 Mm/7 Mm Top) 1 foam UNSCH PRN TOP SEE LABEL COMMENTS; Start 12/06/16 at 12:15 Furosemide (Lasix Inj) 20 mg ONCE ONCE IV Last administered on 12/07/16 00:18 ; Start 12/07/16 at 00:30; Stop 12/07/16 at 00:31; Status DC Megestrol Acetate (Megace Liq) 400 mg ONCE ONCE PO Last administered on 18:19; Start 12/07/16 at 14:00; Stop 12/07/16 at 14:01; Status DC Megestrol Acetate (Megace Liq) 400 mg DAILY PO Last administered on 12/22/16 08 :06; Start 12/08/16 at 09:00 Heparin Sodium (Porcine) (Heparin Inj) 5,000 units Q12HR SQ Last administered on 12/22/16 09:41; Start 12/08/16 at 21:00 Phenytoin 300 mg 300 mg Q12HR PO Last administered on 12/22/16 08:06; Start at 21:00 Iron Sucrose 100 mg/Sodium Chloride 105 ml @ 105 mls/hr DAILY IV Last administered on 12/09/16 10:24; Start 12/09/16 at 09:00; Stop 12/11/16 at 09:59 ; Status DC Cefazolin Sodium/ Sodium Chloride (Ancef Inj/NS Inj) 100 ml @ 200 mls/hr RN INVASIVE IV ; Start 12/10/16 at 13:30; Stop 12/13/16 at 13:29; Status DC Cefazolin Sodium (Ancef Inj) 1,000 mg STK-MED ONCE IV Last administered on 12/11 10:37; Start 12/11/16 at 10:37; Stop 12/11/16 at 11:05; Status DC Propofol (Diprivan 200 Mg/20 ml Inj) 150 mg STK-MED ONCE IV ; Start 12/11/16 at 10:40; Stop 12/11/16 at 11:10; Status DC Levofloxacin (Levaquin) 250 mg Q48H PO Last administered on 12/17/16 16:45; Start 12/11/16 at 16:00; Stop 12/18/16 at 09:37; Status DC Phenylephrine HCl (Neosynephrine/ NS 1000 Mcg/10ml Syr) 100 mcg STK-MED ONCE IV ; Start 12/11/16 at 10:45; Stop 12/13/16 at 13:03; Status DC Fluconazole 100 mg 100 mg DAILY PO Last administered on 12/22/16 08:03; Start 12/16/16 at 11:30 Pharmacy Profile Note ([facility]) 0 ml @ 0 mls/hr UNSCH OTHER ; Start 12/16/16 at 11:30; Stop 12/16/16 at 14:18; Status DC Potassium Phosphate (K-Phos) 500 mg ONCE ONCE PO Last administered on 10:08; Start 12/18/16 at 09:00; Stop 12/18/16 at 09:01; Status DC Amlodipine Besylate (Norvasc) 5 mg DAILY PO Last administered on 12/19/16 08: 45; Start 12/18/16 at 11:00; Stop 12/19/16 at 09:45; Status DC Fluticasone Propionate (Flonase Evan Spr) 2 spray DAILY EACH NARE Last administered on 12/22/16 08:07; Start 12/18/16 at 12:00 Potassium Chloride (KCl) 30 meq ONCE ONCE PO Last administered on 12/19/16 11 :33; Start 12/19/16 at 09:00; Stop 12/19/16 at 10:37; Status DC Nifedipine (Procardia Xl) 30 mg DAILY PO Last administered on 12/22/16 08:03; Start 12/20/16 at 09:00 Calcium Acetate 667 mg 667 mg TID PO Last administered on 12/22/16 08:03; Start 12/20/16 at 09:00 Sodium Chloride 1,000 ml @ 75 mls/hr [id number] IV ; Start 12/20/16 at 09:00; Stop 12/20/16 at 09:47; Status DC Sodium Chloride (1/2 NS 1000 ml Inj) 1,000 ml @ 65 mls/hr [id number] IV Last administered on 12/22/16 05:06; Start 12/20/16 at 10:00 Date of Insertion: Nov 15, 2016 A/P Assessment and Plan A/P 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 S/P extubation Complicated stay with occluded stent in the left main bronchus. Hematology follow-up appreciated; radiation oncology consulted and recommended radiation therapy. ESRD requiring HD. US kidney at [facility] rev findings consistent with chronic kidney disease. Tunnelled dialysis catheter was placed 12/04/16 ( right) at [facility]. non oliguric- HD on hold lasix on hold and started on IV fluid monitor renal function HD per nephrology hypertension- continue procardia- will monitor and adjust the regimen as needed hypokalemia; replaced BPH continue doxazosin 8 mg qhs . Bladder Mass Urology ff- plan for cystoscopy when patient stronger in the future- will reconsult urology if patient in optimum condition for surgery/ procedure - will require anesthesia Respiratory failure requiring O2 supplement - now improved Duonebs as need. S/P tx for PNA bronch sputum klebsiella + , treated at [facility] and finished course of abx per records). Blood cx were negative 11/07/16 ECHO 55-60% Iron deficiency Anemia- low Iron stores S/P EGD- gastritis, duodenitis, esophagitis S/P PEG 12/11/ S/P IV Iron . Left UE superficial thrombophlebitis-improved. UTI- +Pyuria- C with zabrina- teated. Seizure- Continue Dilantin. Seizure precautions. Stable. DVT ppx with SCD/TEDs PT/OT/ daily- deconditioning palliative care following. Discharge Planning dc planning to SNF in progress. Regina Garcia MD Dec 22, 2016 12:05 Regina Garcia MD Dec 22, 2016 12:05
[2016-12-22] MEDS: DOXAZOSIN MESYLATE 4 MG TAB PO SCH (20:23)
[2016-12-22] MEDS: ATORVASTATIN 40 MG TAB PO SCH (20:23)
[2016-12-23] VITALS (7 sets, daily range): BP systolic 158–167; BP diastolic 74–82; PULSE 80–92; RESP 20–25; TEMP 95.9–98; O2SAT 93–97
[2016-12-23 06:06] LABS: POTASSIUM 3.3 MEQ/L (3.5-5.1)
[2016-12-23] MEDS: DOCUSATE SODIUM 100 MG CAP PO SCH ×2 (06:13→17:23)
[2016-12-23] MEDS: HEPARIN SODIUM - SQ 10,000 UNITS/ML VIAL SQ SCH ×2 (08:57→22:45)
[2016-12-23] MEDS: PHENYTOIN SUSP 100 MG/4 ML CUP PO SCH ×2 (08:58→22:45)
[2016-12-23] MEDS: CALCIUM ACETATE 667 MG CAP PO SCH ×3 (08:58→17:23)
[2016-12-23] MEDS: FLUTICASONE PROPIONATE 50 MCG/ACT 16 GM NASAL SPRAY EACH NARE SCH (08:58)
[2016-12-23] MEDS: MEGESTROL ACETATE SUSP 400 MG/10 ML CUP PO SCH (08:58)
[2016-12-23] MEDS: FERROUS SULFATE 300 MG /5ML UDC PO SCH (08:58)
[2016-12-23] MEDS: SODIUM CHLORIDE 0.9% FLUSH 5 ML FLUSH FLUSH SCH ×2 (08:58→21:00)
[2016-12-23] MEDS: NIFEdipine 30 MG SUSTAINED RELEASE TAB PO SCH (08:59)
--- NOTE | 2016-12-23 10:35 | HHI.NPPN ---
Subjective General Problems: Anemia, Edema Renal Failure: Acute History of Present Illness 71 y/o male pt. Transferred to [facility] from [facility] with renal failure from possible ATN. Interval History Creatinine is better. Excellent urine output. (Marina Mcgovern) Review of Systems General Constitutional: Fever, Fatigue (Marina Mcgovern) Objective Data Data 12/22/16 12/23/16 19:00 07:00 Intake Total 1057 ml 2035 ml Output Total 700 ml 1600 ml Balance 357 ml 435 ml Intake Oral 485 ml 180 ml IV Total 572 ml 1045 ml Tube Feeding 750 ml Tube Irrigant 60 ml Output Urine Total 700 ml 1600 ml # Bowel Movements 0 3 Vital Signs Date Time Temp Pulse Resp B/P Pulse Ox O2 Delivery O2 Flow Rate FiO2 12/23/16 08:00 96.3 85 20 161/74 95 12/23/16 06:14 Blow By 3.00 Humidified 12/23/16 04:00 98.0 84 20 161/82 95 12/23/16 00:00 97.4 92 20 167/78 96 12/22/16 20:51 Nasal Cannula 3.00 Humidified 12/22/16 20:30 85 12/22/16 16:00 98.5 88 17 159/76 97 12/22/16 12:00 97.4 86 18 136/54 95 (Marina Mcgovern) -: 12/23/16 0433 Tubes & Lines: Miranda Tubes & Lines Comment PEG, (Marina Mcgovern) Physical Exam General Appearance: No Acute Distress, Comfortable (Marina Mcgovern) Eyes Eye Exam: Pupils Equal, Pupils Reactive (Marina Mcgovern) Throat Throat Exam: Oral Mucosa Winkelman & Moist (Marina Mcgovern) Pulmonary Resp Exam: Breath Sounds Equal, No Distress, Decreased Bases, Diminished Breath Sounds (Marina Mcgovern) Cardiology CV Exam: Regular, Normal Sinus Rhythm, Good Perfusion, Murmur (Marina Mcgovern) Gastrointestinal/Abdomen GI Exam: Soft, Non-Tender, Bowel Sounds Present, Positive Bowel Movement ( Marina Mcgovern) Genitourinary Exam: Clear Urine (Marina Mcgovern) Musculoskeletal MS Exam: Joints Intact, Atrophy, Unable to Ambulate (Marina Mcgovern) Integumentary Skin Exam: Clear, Warm, Dry, Intact (Marina Mcgovern) Extremeties Extremities Exam: No Edema Extremeties Remarks left arm edema improved (Marina Mcgovern) Neurologic Neuro Exam: Alert, Awake, Oriented (Marina Mcgovern) Psychiatric Psych Exam: Appropriate Responses (Marina Mcgovern) Assessment/Plan Discussed Condition With: Patient Assessment Summary: TODD/Acute Renal Failure, Acute Tubular Necrosis Electrolyte Assessment: Hypokalemia Problem List: (1) Acute renal failure Plan: He had creatinine 0.77 in October Renal failure ATN due to PEA arrest HD has been held, last treatment 12/17 On IVF, creatinine is better although BUN is higher Lasix on hold, good urine output Hold HD today, reevaluate tomorrow replace potassium tomorrow renal panel in am Watch for renal recovery. he has permcath in place (2) Bronchiolar obstruction Plan: s/p stent placement, dx of squamous cell carcinoma med oncology following (3) Mass of left lung Plan: oncology has evaluated, appreciate their recommendations waiting on pathology report from [facility] he is unstable for systemic treatment at this time depending on timing of possible transfer to [place], may be candidate for radiation therapy (4) Acute respiratory failure Plan: extubated, on nasal cannula continuous on tube feeding at night with oral nutrition s/p PEG placement; swallowing has improved but oral intake/caloric intake is not adequate speech therapy following (5) UTI (urinary tract infection) Plan: resolved, off Diflucan has indwelling miranda but will keep it in due to bladder mass (6) Anemia Plan: Hb stable Has been seen by Hematology. transfused on admission and given Venofer for iron deficiency also on oral iron Epogen with HD Hemoccult positive , cannot tolerate bowel prep for colonoscopy (7) Bladder mass Plan: urology following, bladder US report noted he will need cystoscopy with TURBT when more stable (Marina Mcgovern) Plan patient was seen and examined. Creatinine is better, excellent urine output. Higher BUN is noted. Continue IVF, defer dialysis for another day. (Willian Borjas MD) Problem Qualifiers (1) UTI (urinary tract infection): Marina Mcgovern GLAZE WIPER Dec 23, 2016 10:35 Willian Borjas MD Dec 23, 2016 14:06
[2016-12-23] MEDS ORDERED: POTASSIUM CHLORIDE 10 MEQ CONTROLLED RELEASE TAB PO ONE (10:45)
--- NOTE | 2016-12-23 11:33 | PD.ONC.PN ---
Subjective Subjective Remarks Afebrile overnight. Patient eating breakfast. He says he feels very strong. "I' m stronger than everyone thinks." He says he is ready to start radiation. He understands that a facility has not been found for him to go to in [place]. He is tolerating a normal diet during the day. No complaints. Objective Data Date Time Temp Pulse Resp B/P Pulse Ox O2 Delivery O2 Flow Rate FiO2 12/23/16 08:00 96.3 85 20 161/74 95 12/23/16 06:14 Blow By 3.00 Humidified 12/23/16 04:00 98.0 84 20 161/82 95 12/23/16 00:00 97.4 92 20 167/78 96 12/22/16 20:51 Nasal Cannula 3.00 Humidified 12/22/16 20:30 85 12/22/16 16:00 98.5 88 17 159/76 97 12/22/16 12:00 97.4 86 18 136/54 95 12/23/16 12/23/16 12/23/16 07:00 15:00 23:00 Intake Total 1603 ml Output Total 1600 ml Balance 3 ml Result Diagram: 12/23/16 0433 Laboratory Results Laboratory Tests Test 12/23/16 04:33 Sodium Level 140 MEQ/L Potassium Level 3.3 MEQ/L Chloride Level 98 MEQ/L Carbon Dioxide Level 30.0 MEQ/L Anion Gap 12 MEQ/L Blood Urea Nitrogen 112 MG/DL Creatinine 4.89 MG/DL Estimat Glomerular Filtration 12 ML/MIN Rate Random Glucose 120 MG/DL Calcium Level 7.9 MG/DL Administered Medications Medications (Trade) Dose Ordered Sig/Luis Carlos Route PRN Reason Start Time Stop Time Status Last Admin Dose Admin IV Flush (NS Flush) 2 ml BID FLUSH 12/05/16 21:00 12/23/16 08:58 Docusate Sodium (Colace) 100 mg Q12H PO 12/05/16 18:00 12/23/16 06:13 Enalaprilat (Vasotec Inj) 2.5 mg Q6H PRN IV PUSH SBP>160, DBP>90 12/05/16 18:00 12/05/16 18:35 Ferrous Sulfate (Ferrous Sulfate Liq) 300 mg DAILY PO 12/06/16 09:00 12/23/16 08:58 Doxazosin Mesylate (Cardura) 8 mg HS PO 12/05/16 21:00 12/22/16 20:23 Atorvastatin Calcium (Lipitor) 40 mg HS PO 12/05/16 21:00 12/22/16 20:23 Furosemide 40 mg 40 mg DAILY TUBE 12/06/16 09:00 Hold 12/20/16 08:50 Sodium Chloride (NS 1000 ml Inj) 1,000 ml @ 0 mls/hr Q0M PRN IV For Prime & Rinse Back 12/06/16 12:11 12/12/16 09:33 Heparin Sodium (Porcine) (Heparin Inj) UNSCH PRN .XX WITH DIALYSIS 12/06/16 12:15 12/14/16 16:39 Gentamicin Sulfate (Gentamicin (Dialysis) Inj) 20 mg UNSCH PRN IV WITH DIALYSIS 12/06/16 12:15 12/14/16 16:39 Acetaminophen (Tylenol) 650 mg UNSCH PRN PO for headach, pain, temp > 101F 12/06/16 12:15 12/14/16 07:54 Clonidine (Catapres) 0.1 mg UNSCH PRN PO for BP > 180/100 X 2 readings 12/06/16 12:15 12/19/16 06:27 Epoetin Blnaco (Epogen Inj) 10,000 units UNSCH PRN IV WITH DIALYSIS 12/06/16 12:15 12/14/16 16:39 Megestrol Acetate (Megace Liq) 400 mg DAILY PO 12/08/16 09:00 12/23/16 08:58 Heparin Sodium (Porcine) (Heparin Inj) 5,000 units Q12HR SQ 12/08/16 21:00 12/23/16 08:57 Phenytoin (Dilantin Liq) 300 mg Q12HR PO 12/08/16 21:00 12/23/16 08:58 Fluticasone Propionate (Flonase Evan Spr) 2 spray DAILY EACH NARE 12/18/16 12:00 12/23/16 08:58 Nifedipine (Procardia Xl) 30 mg DAILY PO 12/20/16 09:00 12/23/16 08:59 Calcium Acetate 667 mg 667 mg TID PO 12/20/16 09:00 12/23/16 08:58 Sodium Chloride (1/2 NS 1000 ml Inj) 1,000 ml @ 65 mls/hr [id number] IV 12/20/16 10:00 12/22/16 20:24 Objective Remarks GENERAL: Well-nourished, well-developed patient. SKIN: Warm and dry. HEAD: Normocephalic. EYES: No scleral icterus. No injection or drainage. NECK: Supple, trachea midline. No JVD or lymphadenopathy. LYMPHATIC: No adenopathy. CARDIOVASCULAR: Regular rate and rhythm without murmurs. RESPIRATORY: Breath sounds equal bilaterally. No accessory muscle use. GASTROINTESTINAL: Abdomen soft, non-tender, nondistended. EXTREMITIES: No cyanosis, or edema. MUSCULOSKELETAL: Adequate muscle tone. NEUROLOGICAL: No obvious focal deficit. Awake, alert, and oriented x3. PSYCHIATRIC: Appropriate mood and affect; insight and judgment normal. Assessment/Plan Assessment 71y/o with newly diagnosed Squamous cell carcinoma of the left mainstem bronchus as well as newly found bladder mass History: Mr. Jaime's history dates back to September 2016 when he began to develop increasing difficulty breathing as well as cough producing blood. He presented to [facility] on 10/22/2016 with acute worsening of difficulty breathing. He underwent imaging studies including a CT angiogram which revealed complete whiteout of the left lung, associated possible underlying mass / nodularity of the left hilum. He was shortly thereafter intubated. He had high volume hemoptysis. The patient was evaluated CT surgery here and after spending some time on a ventilator. He was transferred to the [facility] in [place] where he was evaluated by interventional pulmonology. 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 The left main bronchus was stented. The hemoptysis was controlled and he was eventually extubated. He did have a very complicated hospital stay though and while in the hospital he had a PEA arrest on 11/08/2016. He was resuscitated. He also developed acute renal failure and required hemodialysis. He has required a Dobbhoff tube for feeding purposes. 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 After his condition was stabilized he was transferred back to [facility] for continuation of care. Records from the [facility] indicated a bladder mass. Urology was consulted and they plan to do w/u once the patient is stronger. Plan 1. Nutrition: s/p PEG tube placement. tolerating Nepro at 65cc/hr @ night. on Megace for appetite stimulation during the day. 2. Renal failure: UO has been excellent, they have held HD for several days now. nephrology following. 3. Squamous cell carcinoma of the lung: XRT simulation this afternoon. XRT will take about a week to plan and will then be given over ~6 weeks. I called the patient's son Elpidio and discussed the patient condition and plans to give radiation here. He is hopeful the patient will eventually be able to get to [place], perhaps after radiation. However, in the mean time, he states that one of the family members who is a traveling nurse is going to try to get a position in [place] to be closer to Mr. Jaime. 5. Anemia: Transfuse as needed. GI plans to do colonoscopy when patient stronger and able to take bowel prep 6. Bladder mass: urology following and plans for cystoscopy once patient is stronger. Elmira Ely Dec 23, 2016 11:33
[2016-12-23 13:16] LABS: HEMATOCRIT 27.7 % (39.0-51.0); REVIEW FLAG FINAL
--- NOTE | 2016-12-23 13:39 | HHI.PR ---
Subjective Remarks in no acute distress. no sob. no new complaints. son at the bedside. Objective Vitals Vital Signs Date Time Temp Pulse Resp B/P Pulse Ox O2 Delivery O2 Flow Rate FiO2 12/23/16 10:23 93 Nasal Cannula 3.00 12/23/16 08:00 96.3 85 20 161/74 95 12/23/16 06:14 Blow By 3.00 Humidified 12/23/16 04:00 98.0 84 20 161/82 95 12/23/16 00:00 97.4 92 20 167/78 96 12/22/16 20:51 Nasal Cannula 3.00 Humidified 12/22/16 20:30 85 12/22/16 16:00 98.5 88 17 159/76 97 I/O 12/22/16 12/22/16 12/22/16 12/23/16 12/23/16 12/23/16 07:00 15:00 23:00 07:00 15:00 23:00 Intake Total 1828 ml 1057 ml 432 ml 1603 ml Output Total 900 ml 700 ml 1600 ml Balance 928 ml 357 ml 432 ml 3 ml Intake Oral 480 ml 485 ml 180 ml IV Total 568 ml 572 ml 402 ml 643 ml Tube Feeding 750 ml 750 ml Tube Irrigant 30 ml 30 ml 30 ml Output Urine Total 900 ml 700 ml 1600 ml # Bowel Movements 0 3 Result Diagram: 12/23/16 1255 12/23/16 0433 Imaging Last Impressions Upper Extremity Ultrasound 12/11/16 1506 Signed Impressions: Service Date/Time: Sunday, December 11, 2016 18:00 - CONCLUSION: Superficial thrombophlebitis, extensive edema and nonspecific fluid collections in the subcutaneous tissues. Shawn Reyes MD Head CT 12/11/16 0000 Signed Impressions: Service Date/Time: Sunday, December 11, 2016 20:00 - CONCLUSION: Slight atrophic and small vessel ischemic changes without any evidence for acute hemorrhage or mass effect. Shawn Reyes MD Renal Ultrasound 12/09/16 0000 Signed Impressions: Service Date/Time: Friday, December 09, 2016 15:16 - CONCLUSION: 1. 8.4 cm mass lesion at the base of the bladder. This may represent an intrinsic mass of the bladder versus a prominent anterior lobe of the prostate. 2. Otherwise, urinary bladder is partially decompressed with a Lipscomb catheter. 3. Both kidneys are sonographically normal. Roby Horta MD Chest X-Ray 12/05/16 1700 Signed Impressions: Service Date/Time: November 18:52 - CONCLUSION: Left lung/hemithorax remain essentially completely opacified and with volume loss. Patchy consolidation on the right, mainly at the base. Masslike area right mid lung potentially some loculated pleural fluid. Paul Sinha MD Objective Remarks GENERAL: This is a well-nourished, well-developed patient, in no apparent distress. CARDIOVASCULAR: Regular rate and regular rhythm without murmurs, gallops, or rubs. RESPIRATORY: Clear to auscultation. Breath sounds equal bilaterally. No wheezes , rales, or rhonchi. GASTROINTESTINAL: Abdomen soft, non-tender, nondistended. Normal, active bowel sounds MUSCULOSKELETAL: Extremities without clubbing, cyanosis, or edema. NEURO: Alert & Oriented x4 to person, place, time, situation. Moves all ext x4 Procedures 12/11- EGD- esophagitis, gastritis, duodenitis PEG placement Medications and IVs Current Medications Sodium Chloride (NS 1000 ml Inj) 1,000 ml @ 75 mls/hr [id number] IV Last administered on 12/06/16 05:59; Start 12/05/16 at 18:00; Stop 12/06/16 at 12:03 ; Status DC IV Flush (NS Flush) 2 ml UNSCH PRN FLUSH FLUSH AFTER USING IV ACCESS; Start at 17:00 IV Flush (NS Flush) 2 ml BID FLUSH Last administered on 12/23/16 08:58; Start 12/05/16 at 21:00 Ondansetron HCl (Zofran Inj) 4 mg Q6H PRN IVP NAUSEA OR VOMITING; Start at 18:00 Bisacodyl (Dulcolax Supp) 10 mg DAILY PRN [place] CONSTIPATION; Start 12/05/16 at 18 :00 Docusate Sodium (Colace) 100 mg Q12H PO Last administered on 12/23/16 06:13; Start 12/05/16 at 18:00 Naloxone HCl (Narcan Inj) 0.4 mg UNSCH PRN IV SEE LABEL COMMENTS; Start at 17:00 Phenytoin (Dilantin) 300 mg BID PO Last administered on 12/07/16 20:57; Start 12/05/16 at 21:00; Stop 12/08/16 at 10:47; Status DC Terazosin HCl (Hytrin) 1 mg HS PO ; Start 12/05/16 at 21:00; Stop 12/05/16 at 21 :00; Status DC Enalaprilat (Vasotec Inj) 2.5 mg Q6H PRN IV PUSH SBP>160, DBP>90 Last administered on 12/05/16 18:35; Start 12/05/16 at 18:00 Ferrous Sulfate (Ferrous Sulfate Liq) 300 mg DAILY PO Last administered on 08:58; Start 12/06/16 at 09:00 Doxazosin Mesylate (Cardura) 8 mg HS PO Last administered on 12/22/16 20:23; Start 12/05/16 at 21:00 Atorvastatin Calcium (Lipitor) 40 mg HS PO Last administered on 12/22/16 20:23 ; Start 12/05/16 at 21:00 Furosemide (Lasix Liq) 40 mg DAILY TUBE Last administered on 12/20/16 08:50; Start 12/06/16 at 09:00; Status Hold Senna/Docusate Sodium (Jacinda-Colace) 2 tab BID PRN PO CONSTIPATION; Start at 19:45 Lactulose (Lactulose Liq) 30 ml TID PRN PO CONSTIPATION; Start 12/05/16 at 19: 45 Bisacodyl (Dulcolax Supp) 10 mg DAILY PRN NV CONSTIPATION; Start 12/05/16 at 19 :45; Status Cancel Magnesium Hydroxide (Milk Of Magnesia Liq) 30 ml Q6H PRN PO CONSTIPATION; Start 12/05/16 at 19:45 Furosemide 20 mg 20 mg ONCE ONCE IV PUSH ; Start 12/06/16 at 07:00; Stop at 07:01; Status DC Sodium Chloride (NS 250 ml Inj) 250 ml @ 15 mls/hr ONCE ONCE IV Last administered on 12/06/16 11:00; Start 12/06/16 at 08:45; Stop 12/07/16 at 01:24 ; Status DC Acetaminophen (Tylenol) 650 mg Q4H PRN PO SEE LABEL COMMENTS; Start 12/06/16 at 08:45; Stop 12/06/16 at 12:46; Status DC Diphenhydramine HCl (Benadryl) 25 mg Q4H PRN PO SEE LABEL COMMENTS; Start 12/06 at 08:45; Stop 12/06/16 at 12:46; Status DC Furosemide (Lasix Inj) 20 mg ONCE ONCE IV ; Start 12/06/16 at 08:45; Stop 12/06 at 08:46; Status DC Prednisone 20 mg 20 mg ONCE ONCE PO Last administered on 12/06/16 15:36; Start 12/06/16 at 13:00; Stop 12/06/16 at 13:01; Status DC Sodium Chloride (NS 1000 ml Inj) 1,000 ml @ 0 mls/hr Q0M PRN IV For Prime & Rinse Back Last administered on 12/12/16 09:33; Start 12/06/16 at 12:11 Heparin Sodium (Porcine) 8000 units 8,000 units UNSCH PRN IVF WITH DIALYSIS; Start 12/06/16 at 12:15 Sodium Chloride 1,000 ml @ 200 mls/hr Q5H PRN IV WITH DIALYSIS; Start 12/06/16 at 12:11 Sodium Chloride (NS 1000 ml Inj) 1,000 ml @ 0 mls/hr Q0M PRN IV WITH DIALYSIS; Start 12/06/16 at 12:11 Mannitol (Mannitol Inj) 12.5 gm UNSCH PRN IV WITH DIALYSIS; Start 12/06/16 at 12:15 Albumin Human (Albumin 25% Inj) 25 gm UNSCH PRN IV WITH DIALYSIS; Start at 12:15 IV Flush (NS Flush) 5 ml UNSCH PRN IVF WITH DIALYSIS; Start 12/06/16 at 12:15 Heparin Sodium (Porcine) (Heparin Inj) UNSCH PRN .XX WITH DIALYSIS Last administered on 12/14/16 16:39; Start 12/06/16 at 12:15 Gentamicin Sulfate (Gentamicin (Dialysis) Inj) 20 mg UNSCH PRN IV WITH DIALYSIS Last administered on 12/14/16 16:39; Start 12/06/16 at 12:15 Ondansetron HCl (Zofran Inj) 4 mg UNSCH PRN IV WITH DIALYSIS; Start 12/06/16 at 12:15 Acetaminophen (Tylenol) 650 mg UNSCH PRN PO for headach, pain, temp > 101F Last administered on 12/14/16 07:54; Start 12/06/16 at 12:15 Diphenhydramine HCl (Benadryl) 25 mg UNSCH PRN PO for hives/itching/anaphylaxis ; Start 12/06/16 at 12:15 Nitroglycerin (Nitrostat Sl) 0.4 mg UNSCH PRN SL CHEST PAIN; Start 12/06/16 at 12:15 Clonidine (Catapres) 0.1 mg UNSCH PRN PO for BP > 180/100 X 2 readings Last administered on 12/19/16 06:27; Start 12/06/16 at 12:15 Epoetin Blanco (Epogen Inj) 10,000 units UNSCH PRN IV WITH DIALYSIS Last administered on 12/14/16 16:39; Start 12/06/16 at 12:15 Gelatin (Gelfoam 12 Mm/7 Mm Top) 1 foam UNSCH PRN TOP SEE LABEL COMMENTS; Start 12/06/16 at 12:15 Furosemide (Lasix Inj) 20 mg ONCE ONCE IV Last administered on 12/07/16 00:18 ; Start 12/07/16 at 00:30; Stop 12/07/16 at 00:31; Status DC Megestrol Acetate (Megace Liq) 400 mg ONCE ONCE PO Last administered on 18:19; Start 12/07/16 at 14:00; Stop 12/07/16 at 14:01; Status DC Megestrol Acetate (Megace Liq) 400 mg DAILY PO Last administered on 12/23/16 08 :58; Start 12/08/16 at 09:00 Heparin Sodium (Porcine) (Heparin Inj) 5,000 units Q12HR SQ Last administered on 12/23/16 08:57; Start 12/08/16 at 21:00 Phenytoin 300 mg 300 mg Q12HR PO Last administered on 12/23/16 08:58; Start at 21:00 Iron Sucrose 100 mg/Sodium Chloride 105 ml @ 105 mls/hr DAILY IV Last administered on 12/09/16 10:24; Start 12/09/16 at 09:00; Stop 12/11/16 at 09:59 ; Status DC Cefazolin Sodium/ Sodium Chloride (Ancef Inj/NS Inj) 100 ml @ 200 mls/hr MANAGING CONSULTANT IV ; Start 12/10/16 at 13:30; Stop 12/13/16 at 13:29; Status DC Cefazolin Sodium (Ancef Inj) 1,000 mg STK-MED ONCE IV Last administered on 12/11 10:37; Start 12/11/16 at 10:37; Stop 12/11/16 at 11:05; Status DC Propofol (Diprivan 200 Mg/20 ml Inj) 150 mg STK-MED ONCE IV ; Start 12/11/16 at 10:40; Stop 12/11/16 at 11:10; Status DC Levofloxacin (Levaquin) 250 mg Q48H PO Last administered on 12/17/16 16:45; Start 12/11/16 at 16:00; Stop 12/18/16 at 09:37; Status DC Phenylephrine HCl (Neosynephrine/ NS 1000 Mcg/10ml Syr) 100 mcg STK-MED ONCE IV ; Start 12/11/16 at 10:45; Stop 12/13/16 at 13:03; Status DC Fluconazole 100 mg 100 mg DAILY PO Last administered on 12/22/16 08:03; Start 12/16/16 at 11:30; Stop 12/22/16 at 12:06; Status DC Pharmacy Profile Note ([facility]) 0 ml @ 0 mls/hr UNSCH OTHER ; Start 12/16/16 at 11:30; Stop 12/16/16 at 14:18; Status DC Potassium Phosphate (K-Phos) 500 mg ONCE ONCE PO Last administered on 10:08; Start 12/18/16 at 09:00; Stop 12/18/16 at 09:01; Status DC Amlodipine Besylate (Norvasc) 5 mg DAILY PO Last administered on 12/19/16 08: 45; Start 12/18/16 at 11:00; Stop 12/19/16 at 09:45; Status DC Fluticasone Propionate (Flonase Evan Spr) 2 spray DAILY EACH NARE Last administered on 12/23/16 08:58; Start 12/18/16 at 12:00 Potassium Chloride (KCl) 30 meq ONCE ONCE PO Last administered on 12/19/16 11 :33; Start 12/19/16 at 09:00; Stop 12/19/16 at 10:37; Status DC Nifedipine (Procardia Xl) 30 mg DAILY PO Last administered on 12/23/16 08:59; Start 12/20/16 at 09:00 Calcium Acetate 667 mg 667 mg TID PO Last administered on 12/23/16 12:04; Start 12/20/16 at 09:00 Sodium Chloride 1,000 ml @ 75 mls/hr [id number] IV ; Start 12/20/16 at 09:00; Stop 12/20/16 at 09:47; Status DC Sodium Chloride (1/2 NS 1000 ml Inj) 1,000 ml @ 65 mls/hr [id number] IV Last administered on 12/22/16 20:24; Start 12/20/16 at 10:00 Potassium Chloride (KCl) 30 meq ONCE ONCE PO Last administered on 12/23/16 12: 04; Start 12/23/16 at 10:45; Stop 12/23/16 at 10:46; Status DC Date of Insertion: Nov 15, 2016 A/P Assessment and Plan A/P 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 S/P extubation Complicated stay with occluded stent in the left main bronchus. Oncology follow-up appreciated; radiation oncology consulted and recommended radiation therapy. for radiation simulation today. ESRD requiring HD ( on hold for now). US kidney at [facility] rev findings consistent with chronic kidney disease. Tunnelled dialysis catheter was placed 12/04/16 ( right) at [facility]. non oliguric- HD on hold lasix on hold and started on IV fluid monitor renal function HD per nephrology hypertension- continue procardia- will monitor and adjust the regimen as needed hypokalemia; replaced- will monitor. BPH continue doxazosin 8 mg qhs . Bladder Mass evaluated by urology- plan for cystoscopy when patient stronger in the future - will reconsult urology if patient in optimum condition for surgery/ procedure - will require anesthesia Respiratory failure requiring O2 supplement - now improved Duonebs as need. S/P tx for PNA bronch sputum klebsiella + , treated at [facility] and finished course of abx per records). Blood cx were negative 11/07/16 ECHO 55-60% Iron deficiency Anemia- low Iron stores S/P EGD- gastritis, duodenitis, esophagitis S/P PEG 12/11/ S/P IV Iron . Left UE superficial thrombophlebitis-improved. UTI- +Pyuria- C with zabrina- teated. Seizure- Continue Dilantin. Seizure precautions. Stable. DVT ppx with SCD/TEDs PT/OT/ daily- deconditioning palliative care following. Discharge Planning dc planning to SNF in progress. Regina Garcia MD Dec 23, 2016 13:39
[2016-12-23] MEDS: SODIUM CHLOR 0.45% 1000 ML INJ 1,000 ML IV SCH (17:24)
[2016-12-23] MEDS: DOXAZOSIN MESYLATE 4 MG TAB PO SCH (22:44)
[2016-12-23] MEDS: ATORVASTATIN 40 MG TAB PO SCH (22:45)
[2016-12-24] VITALS: BP 180/82; PULSE 90; RESP 20; TEMP 97.8; O2SAT 95
[2016-12-24 04:00] VITALS: BP 164/78; PULSE 88; RESP 18; TEMP 98; O2SAT 94
[2016-12-24] MEDS: DOCUSATE SODIUM 100 MG CAP PO SCH ×2 (05:42→17:09)
[2016-12-24] MEDS: SODIUM CHLOR 0.45% 1000 ML INJ 1,000 ML IV SCH ×2 (05:43→21:10)
[2016-12-24 05:56] LABS: BICARBONATE 29.3 MEQ/L (21.0-32.0); POTASSIUM 3.6 MEQ/L (3.5-5.1)
[2016-12-24] MEDS: ENALAPRILAT 2.5 MG/2 ML VIAL IV PUSH PRN (07:19)
[2016-12-24 08:00] VITALS: BP 160/76; PULSE 98; RESP 18; TEMP 98.7; O2SAT 94
[2016-12-24 08:36] VITALS: PULSE 95
[2016-12-24] MEDS: NIFEdipine 30 MG SUSTAINED RELEASE TAB PO SCH (08:37)
[2016-12-24] MEDS: FERROUS SULFATE 300 MG /5ML UDC PO SCH (08:37)
[2016-12-24] MEDS: CALCIUM ACETATE 667 MG CAP PO SCH ×3 (08:37→17:09)
[2016-12-24] MEDS: PHENYTOIN SUSP 100 MG/4 ML CUP PO SCH ×2 (08:37→21:10)
[2016-12-24] MEDS: HEPARIN SODIUM - SQ 10,000 UNITS/ML VIAL SQ SCH ×2 (08:37→21:09)
[2016-12-24] MEDS: MEGESTROL ACETATE SUSP 400 MG/10 ML CUP PO SCH (08:37)
[2016-12-24] MEDS: SODIUM CHLORIDE 0.9% FLUSH 5 ML FLUSH FLUSH SCH ×2 (08:38→21:00)
[2016-12-24] MEDS: FLUTICASONE PROPIONATE 50 MCG/ACT 16 GM NASAL SPRAY EACH NARE SCH (08:38)
--- NOTE | 2016-12-24 09:46 | HHI.NPPN ---
Subjective General Problems: Anemia, Edema Renal Failure: Acute History of Present Illness 71 y/o male pt. Transferred to [facility] from [facility] with renal failure from possible ATN. Interval History His son is at bedside. Creatinine is slightly better. IVF continues. No new concerns. (Marina Mcgovern) Review of Systems General Constitutional: Fever, Fatigue (Marina Mcgovern) Objective Data Data 12/23/16 12/24/16 19:00 07:00 Intake Total 480 ml 2220 ml Output Total 1100 ml 1000 ml Balance -620 ml 1220 ml Intake Oral 480 ml 220 ml IV Total 1301 ml Tube Feeding 699 ml Output Urine Total 1100 ml 1000 ml # Bowel Movements 0 1 Vital Signs Date Time Temp Pulse Resp B/P Pulse Ox O2 Delivery O2 Flow Rate FiO2 12/24/16 08:36 Nasal Cannula 3.00 Humidified 12/24/16 08:00 98.7 98 18 160/76 94 12/24/16 04:00 98.0 88 18 164/78 94 12/24/16 00:00 97.8 90 20 180/82 95 12/23/16 22:50 Nasal Cannula 3.00 12/23/16 20:00 97.0 80 20 158/80 97 12/23/16 20:00 91 12/23/16 16:00 95.9 84 25 164/76 97 12/23/16 12:00 97.9 87 24 166/77 95 12/23/16 10:23 93 Nasal Cannula 3.00 (Marina Mcgovern) -: 12/23/16 1255 12/24/16 0426 Imaging Last Impressions Upper Extremity Ultrasound 12/11/16 1506 Signed Impressions: Service Date/Time: Sunday, December 11, 2016 18:00 - CONCLUSION: Superficial thrombophlebitis, extensive edema and nonspecific fluid collections in the subcutaneous tissues. Shawn Reyes MD Head CT 12/11/16 0000 Signed Impressions: Service Date/Time: Sunday, December 11, 2016 20:00 - CONCLUSION: Slight atrophic and small vessel ischemic changes without any evidence for acute hemorrhage or mass effect. Shawn Reyes MD Renal Ultrasound 12/09/16 0000 Signed Impressions: Service Date/Time: Friday, December 09, 2016 15:16 - CONCLUSION: 1. 8.4 cm mass lesion at the base of the bladder. This may represent an intrinsic mass of the bladder versus a prominent anterior lobe of the prostate. 2. Otherwise, urinary bladder is partially decompressed with a Miranda catheter. 3. Both kidneys are sonographically normal. Roby Horta MD Chest X-Ray 12/05/16 1700 Signed Impressions: Service Date/Time: November 18:52 - CONCLUSION: Left lung/hemithorax remain essentially completely opacified and with volume loss. Patchy consolidation on the right, mainly at the base. Masslike area right mid lung potentially some loculated pleural fluid. Paul Sinha MD Tubes & Lines: Miranda Tubes & Lines Comment PEG, (FroilanMarina B. LACING OPERATOR) Physical Exam General Appearance: Well Developed, No Acute Distress, Comfortable (Froilan,Marina B. LACING OPERATOR) Eyes Eye Exam: Pupils Equal, Pupils Reactive (FroilanMarina B. LACING OPERATOR) Throat Throat Exam: Oral Mucosa [place] & Moist (FroilanMarina B. LACING OPERATOR) Pulmonary Resp Exam: Breath Sounds Equal, No Distress, Decreased Bases, Diminished Breath Sounds (Froilan,Marina B. LACING OPERATOR) Cardiology CV Exam: Regular, Normal Sinus Rhythm, Good Perfusion, Murmur (FroilanMarina B. LACING OPERATOR) Gastrointestinal/Abdomen GI Exam: Soft, Non-Tender, Bowel Sounds Present, Positive Bowel Movement ( FroilanMarina B. LACING OPERATOR) Genitourinary Exam: Clear Urine (FroilanMarina B. LACING OPERATOR) Musculoskeletal MS Exam: Joints Intact, Atrophy, Unable to Ambulate (Froilan,Marina B. LACING OPERATOR) Integumentary Skin Exam: Clear, Warm, Dry, Intact (Froilan,Marina B. LACING OPERATOR) Extremeties Extremities Exam: No Edema, Pedal Pulses Palpable (FroilanMarina B. LACING OPERATOR) Neurologic Neuro Exam: Alert, Awake, Oriented (FroilanMarina B. LACING OPERATOR) Psychiatric Psych Exam: Appropriate Responses (FroilanMarina B. LACING OPERATOR) Assessment/Plan Discussed Condition With: Patient, Son Assessment Summary: TODD/Acute Renal Failure, Acute Tubular Necrosis Electrolyte Assessment: Hypokalemia Problem List: (1) Acute renal failure Plan: He had creatinine 0.77 in October Renal failure ATN due to PEA arrest HD has been held, last treatment 12/17 On IVF, creatinine is better but BUN is high Lasix on hold, good urine output Hold HD again today, reevaluate tomorrow K has corrected renal panel in am Watch for renal recovery. he has permcath in place (2) Bronchiolar obstruction Plan: s/p stent placement, dx of squamous cell carcinoma med oncology following (3) Mass of left lung Plan: oncology has evaluated, appreciate their recommendations he is unstable for systemic treatment at this time being scheduled for radiation treatment for approximately 6 weeks (4) Acute respiratory failure Plan: extubated, on nasal cannula continuous on tube feeding at night with oral nutrition s/p PEG placement; swallowing has improved but oral intake/caloric intake is not adequate speech therapy following (5) UTI (urinary tract infection) Plan: resolved, off Diflucan has indwelling miranda but will keep it in due to bladder mass (6) Anemia Plan: Hb stable Has been seen by Hematology. transfused on admission and given Venofer for iron deficiency also on oral iron Epogen with HD Hemoccult positive , cannot tolerate bowel prep for colonoscopy (7) Bladder mass Plan: urology following, bladder US report noted he will need cystoscopy with TURBT when more stable Plan p (Marina Mcgovern) Plan patient was seen and examined. Agree with above assessment and plan. (Willian Borjas MD) Problem Qualifiers (1) UTI (urinary tract infection): Marina Mcgovern Dec 24, 2016 09:46 Willian Borjas MD Dec 24, 2016 14:11
[2016-12-24 12:00] VITALS: BP 152/74; PULSE 93; RESP 17; TEMP 97.7; O2SAT 94
--- NOTE | 2016-12-24 15:42 | HHI.PR ---
Subjective Remarks Bp elevated persistently denies cp/sob good urine output denies fevers/chills denies diarrhea Objective Vitals Vital Signs Date Time Temp Pulse Resp B/P Pulse Ox O2 Delivery O2 Flow Rate FiO2 12/24/16 12:00 97.7 93 17 152/74 94 12/24/16 09:00 3.00 12/24/16 08:36 95 12/24/16 08:36 Nasal Cannula 3.00 Humidified 12/24/16 08:00 98.7 98 18 160/76 94 12/24/16 04:00 98.0 88 18 164/78 94 12/24/16 00:00 97.8 90 20 180/82 95 12/23/16 22:50 Nasal Cannula 3.00 12/23/16 20:00 97.0 80 20 158/80 97 12/23/16 20:00 91 12/23/16 16:00 95.9 84 25 164/76 97 I/O 12/23/16 12/23/16 12/23/16 12/24/16 12/24/16 12/24/16 07:00 15:00 23:00 07:00 15:00 23:00 Intake Total 1823 ml 480 ml 1176 ml 1044 ml 775 ml Output Total 2450 ml 1100 ml 1000 ml 600 ml Balance -627 ml -620 ml 1176 ml 44 ml 175 ml Intake Oral 400 ml 480 ml 220 ml 240 ml IV Total 643 ml 843 ml 458 ml 535 ml Tube Feeding 750 ml 333 ml 366 ml Tube Irrigant 30 ml Output Urine Total 2450 ml 1100 ml 1000 ml 600 ml # Bowel Movements 4 0 1 3 Result Diagram: 12/23/16 1255 12/24/16 0426 Imaging Last Impressions Upper Extremity Ultrasound 12/11/16 1506 Signed Impressions: Service Date/Time: Sunday, December 11, 2016 18:00 - CONCLUSION: Superficial thrombophlebitis, extensive edema and nonspecific fluid collections in the subcutaneous tissues. Shawn Reyes MD Head CT 12/11/16 0000 Signed Impressions: Service Date/Time: Sunday, December 11, 2016 20:00 - CONCLUSION: Slight atrophic and small vessel ischemic changes without any evidence for acute hemorrhage or mass effect. Shawn Reyes MD Renal Ultrasound 12/09/16 0000 Signed Impressions: Service Date/Time: Friday, December 09, 2016 15:16 - CONCLUSION: 1. 8.4 cm mass lesion at the base of the bladder. This may represent an intrinsic mass of the bladder versus a prominent anterior lobe of the prostate. 2. Otherwise, urinary bladder is partially decompressed with a Lipscomb catheter. 3. Both kidneys are sonographically normal. Roby Horta MD Chest X-Ray 12/05/16 1700 Signed Impressions: Service Date/Time: November 18:52 - CONCLUSION: Left lung/hemithorax remain essentially completely opacified and with volume loss. Patchy consolidation on the right, mainly at the base. Masslike area right mid lung potentially some loculated pleural fluid. Paul Sinha MD Procedures 12/11- EGD- esophagitis, gastritis, duodenitis PEG placement Medications and IVs Current Medications Medications (Trade) Dose Ordered Sig/Luis Carlos Route Start Time Stop Time Status Last Admin (NS Flush) 2 ml UNSCH PRN FLUSH 12/05/16 17:00 (NS Flush) 2 ml BID FLUSH 12/05/16 21:00 12/23/16 08:58 (Zofran Inj) 4 mg Q6H PRN IVP 12/05/16 18:00 (Dulcolax Supp) 10 mg DAILY PRN [place] 12/05/16 18:00 (Colace) 100 mg Q12H PO 12/05/16 18:00 12/24/16 05:42 (Narcan Inj) 0.4 mg UNSCH PRN IV 12/05/16 17:00 (Vasotec Inj) 2.5 mg Q6H PRN IV PUSH 12/05/16 18:00 12/24/16 07:19 (Ferrous Sulfate Liq) 300 mg DAILY PO 12/06/16 09:00 12/24/16 08:37 (Cardura) 8 mg HS PO 12/05/16 21:00 12/23/16 22:44 (Lipitor) 40 mg HS PO 12/05/16 21:00 12/23/16 22:45 (Lasix Liq) 40 mg DAILY TUBE 12/06/16 09:00 Hold 12/20/16 08:50 (Jacinda-Colace) 2 tab BID PRN PO 12/05/16 19:45 (Lactulose Liq) 30 ml TID PRN PO 12/05/16 19:45 Magnesium Hydroxide 30 ml 30 ml Q6H PRN PO 12/05/16 19:45 (NS 1000 ml Inj) 1,000 ml @ 0 mls/hr Q0M PRN IV 12/06/16 12:11 12/12/16 09:33 Heparin Sodium (Porcine) 8000 units 8,000 units UNSCH PRN IVF 12/06/16 12:15 Sodium Chloride 1,000 ml @ 200 mls/hr Q5H PRN IV 12/06/16 12:11 (NS 1000 ml Inj) 1,000 ml @ 0 mls/hr Q0M PRN IV 12/06/16 12:11 (Mannitol Inj) 12.5 gm UNSCH PRN IV 12/06/16 12:15 (Albumin 25% Inj) 25 gm UNSCH PRN IV 12/06/16 12:15 (NS Flush) 5 ml UNSCH PRN IVF 12/06/16 12:15 (Heparin Inj) UNSCH PRN .XX 12/06/16 12:15 12/14/16 16:39 (Gentamicin (Dialysis) Inj) 20 mg UNSCH PRN IV 12/06/16 12:15 12/14/16 16:39 (Zofran Inj) 4 mg UNSCH PRN IV 12/06/16 12:15 (Tylenol) 650 mg UNSCH PRN PO 12/06/16 12:15 12/14/16 07:54 (Benadryl) 25 mg UNSCH PRN PO 12/06/16 12:15 (Nitrostat Sl) 0.4 mg UNSCH PRN SL 12/06/16 12:15 (Catapres) 0.1 mg UNSCH PRN PO 12/06/16 12:15 12/19/16 06:27 (Epogen Inj) 10,000 units UNSCH PRN IV 12/06/16 12:15 12/14/16 16:39 (Gelfoam 12 Mm/7 Mm Top) 1 foam UNSCH PRN TOP 12/06/16 12:15 (Megace Liq) 400 mg DAILY PO 12/08/16 09:00 12/24/16 08:37 (Heparin Inj) 5,000 units Q12HR SQ 12/08/16 21:00 12/24/16 08:37 (Dilantin Liq) 300 mg Q12HR PO 12/08/16 21:00 12/24/16 08:37 (Flonase Evan Spr) 2 spray DAILY EACH NARE 12/18/16 12:00 12/24/16 08:38 Calcium Acetate 667 mg 667 mg TID PO 12/20/16 09:00 12/24/16 11:53 (1/2 NS 1000 ml Inj) 1,000 ml @ 65 mls/hr [id number] IV 12/20/16 10:00 12/24/16 05:43 (Procardia Xl) 60 mg DAILY PO 12/25/16 09:00 Date of Insertion: Nov 15, 2016 A/P Assessment and Plan A/P 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 S/P extubation Complicated stay with occluded stent in the left main bronchus. Oncology follow-up appreciated; radiation oncology consulted and recommended radiation therapy. sp radiation simulation yesterday. ESRD requiring HD ( on hold for now). US kidney at [facility] rev findings consistent with chronic kidney disease. Tunnelled dialysis catheter was placed 12/04/16 ( right) at [facility]. non oliguric- HD on hold lasix on hold and started on IV fluid monitor renal function HD per nephrology hypertension- Bp uncontrolled and persistently elevated into the 160's. Will increase procardia XL to 60 mg daily. hypokalemia; Resolved BPH continue doxazosin 8 mg qhs . Bladder Mass evaluated by urology- plan for cystoscopy when patient stronger in the future - will reconsult urology if patient in optimum condition for surgery/ procedure - will require anesthesia Respiratory failure requiring O2 supplement - now improved Duonebs as need. S/P tx for PNA bronch sputum klebsiella + , treated at [facility] and finished course of abx per records). Blood cx were negative 11/07/16 ECHO 55-60% Iron deficiency Anemia- low Iron stores S/P EGD- gastritis, duodenitis, esophagitis S/P PEG 12/11/ S/P IV Iron . Left UE superficial thrombophlebitis-improved. UTI- +Pyuria- C with zabirna- teated. Seizure- Continue Dilantin. Seizure precautions. Stable. DVT ppx with SCD/TEDs PT/OT/ daily- deconditioning palliative care following. Diego Sherwood MD Dec 24, 2016 15:42
[2016-12-24 20:00] VITALS: BP 165/79; PULSE 95; RESP 18; TEMP 97.6; O2SAT 92
[2016-12-24] MEDS: ATORVASTATIN 40 MG TAB PO SCH (21:09)
[2016-12-24] MEDS: DOXAZOSIN MESYLATE 4 MG TAB PO SCH (21:09)
[2016-12-25] VITALS (11 sets, daily range): BP systolic 113–170; BP diastolic 62–89; PULSE 74–91; RESP 17–25; TEMP 96.3–98.3; O2SAT 94–100
[2016-12-25] MEDS: DOCUSATE SODIUM 100 MG CAP PO SCH ×2 (06:00→17:57)
[2016-12-25 06:09] LABS: BICARBONATE 28.5 MEQ/L (21.0-32.0); POTASSIUM 3.5 MEQ/L (3.5-5.1)
--- NOTE | 2016-12-25 07:40 | HHI.NPPN ---
Subjective General Problems: Anemia, Edema Renal Failure: Acute History of Present Illness 71 y/o male pt. Transferred to [facility] from [facility] with renal failure from possible ATN. Interval History Renal function is better. BUN also has improved. Review of Systems General Constitutional: Fever, Fatigue Objective Data Data 12/24/16 12/25/16 19:00 07:00 Intake Total 775 ml 1974 ml Output Total 600 ml 1650 ml Balance 175 ml 324 ml Intake Oral 240 ml 480 ml IV Total 535 ml 860 ml Tube Feeding 634 ml Output Urine Total 600 ml 1650 ml # Bowel Movements 3 Vital Signs Date Time Temp Pulse Resp B/P Pulse Ox O2 Delivery O2 Flow Rate FiO2 12/25/16 07:26 94 Nasal Cannula 3.00 12/25/16 04:00 97.5 91 18 154/69 96 12/25/16 00:00 97.5 89 18 154/71 96 12/24/16 21:15 Nasal Cannula 3.00 12/24/16 20:00 97.6 95 18 165/79 92 12/24/16 12:00 97.7 93 17 152/74 94 12/24/16 09:00 3.00 12/24/16 08:36 95 12/24/16 08:36 Nasal Cannula 3.00 Humidified 12/24/16 08:00 98.7 98 18 160/76 94 -: 12/23/16 1255 12/25/16 0451 Tubes & Lines: Miranda Tubes & Lines Comment PEG, Physical Exam General Appearance: Well Developed, No Acute Distress, Comfortable Eyes Eye Exam: Pupils Equal, Pupils Reactive Throat Throat Exam: Oral Mucosa Lennox & Moist Pulmonary Resp Exam: Breath Sounds Equal, No Distress, Decreased Bases, Diminished Breath Sounds Cardiology CV Exam: Regular, Normal Sinus Rhythm, Good Perfusion, Murmur Gastrointestinal/Abdomen GI Exam: Soft, Non-Tender, Bowel Sounds Present, Positive Bowel Movement Genitourinary Exam: Clear Urine Musculoskeletal MS Exam: Joints Intact, Atrophy, Unable to Ambulate Integumentary Skin Exam: Clear, Warm, Dry, Intact Extremeties Extremities Exam: No Edema, Pedal Pulses Palpable Neurologic Neuro Exam: Alert, Awake, Oriented Psychiatric Psych Exam: Appropriate Responses Assessment/Plan Discussed Condition With: Patient, Son Assessment Summary: TODD/Acute Renal Failure, Acute Tubular Necrosis Electrolyte Assessment: Hypokalemia Problem List: (1) Acute renal failure Plan: He had creatinine 0.77 in October Renal failure ATN due to PEA arrest HD has been held, last treatment 12/17 On IVF, renal function is improving. Lasix on hold, good urine output Hold HD again today, reevaluate tomorrow May remove PermCath in 1-2 days. (2) Bronchiolar obstruction Plan: s/p stent placement, dx of squamous cell carcinoma med oncology following (3) Mass of left lung Plan: oncology has evaluated, appreciate their recommendations he is unstable for systemic treatment at this time being scheduled for radiation treatment for approximately 6 weeks (4) Acute respiratory failure Plan: extubated, on nasal cannula continuous on tube feeding at night with oral nutrition s/p PEG placement; swallowing has improved but oral intake/caloric intake is not adequate speech therapy following (5) UTI (urinary tract infection) Plan: resolved, off Diflucan has indwelling miranda but will keep it in due to bladder mass (6) Anemia Plan: Hb stable Has been seen by Hematology. transfused on admission and given Venofer for iron deficiency also on oral iron Epogen with HD Hemoccult positive , cannot tolerate bowel prep for colonoscopy (7) Bladder mass Plan: urology following, bladder US report noted he will need cystoscopy with TURBT when more stable Problem Qualifiers (1) UTI (urinary tract infection): Willian Borjas MD Dec 25, 2016 07:40
[2016-12-25] MEDS: NIFEdipine 60 MG SUSTAINED RELEASE TAB PO SCH (08:26)
[2016-12-25] MEDS: FLUTICASONE PROPIONATE 50 MCG/ACT 16 GM NASAL SPRAY EACH NARE SCH (08:26)
[2016-12-25] MEDS: CALCIUM ACETATE 667 MG CAP PO SCH ×3 (08:26→17:57)
[2016-12-25] MEDS: MEGESTROL ACETATE SUSP 400 MG/10 ML CUP PO SCH (08:27)
[2016-12-25] MEDS: PHENYTOIN SUSP 100 MG/4 ML CUP PO SCH ×2 (08:27→20:56)
[2016-12-25] MEDS: FERROUS SULFATE 300 MG /5ML UDC PO SCH (08:27)
[2016-12-25] MEDS: HEPARIN SODIUM - SQ 10,000 UNITS/ML VIAL SQ SCH ×2 (08:27→20:57)
[2016-12-25] MEDS: SODIUM CHLORIDE 0.9% FLUSH 5 ML FLUSH FLUSH SCH ×2 (08:27→20:57)
--- NOTE | 2016-12-25 09:30 | HHI.PR ---
Subjective Remarks Rapid response called on patient due to oxygen desaturation required to be placed on a 6 liters of oxygen patient denies cp/sob denies fevers/chills Objective Vitals Vital Signs Date Time Temp Pulse Resp B/P Pulse Ox O2 Delivery O2 Flow Rate FiO2 12/25/16 08:15 Simple Mask 6.00 12/25/16 08:00 97.4 89 17 170/79 96 12/25/16 07:26 94 Nasal Cannula 3.00 12/25/16 04:00 97.5 91 18 154/69 96 12/25/16 00:00 97.5 89 18 154/71 96 12/24/16 21:15 Nasal Cannula 3.00 12/24/16 20:00 97.6 95 18 165/79 92 12/24/16 12:00 97.7 93 17 152/74 94 I/O 12/24/16 12/24/16 12/24/16 12/25/16 12/25/16 12/25/16 07:00 15:00 23:00 07:00 15:00 23:00 Intake Total 1044 ml 775 ml 750 ml 1224 ml Output Total 1000 ml 600 ml 350 ml 1300 ml Balance 44 ml 175 ml 400 ml -76 ml Intake Oral 220 ml 240 ml 240 ml 240 ml IV Total 458 ml 535 ml 366 ml 494 ml Tube Feeding 366 ml 144 ml 490 ml Output Urine Total 1000 ml 600 ml 350 ml 1300 ml # Bowel Movements 1 3 Result Diagram: 12/23/16 1255 12/25/16 0451 Imaging Last Impressions Upper Extremity Ultrasound 12/11/16 1506 Signed Impressions: Service Date/Time: Sunday, December 11, 2016 18:00 - CONCLUSION: Superficial thrombophlebitis, extensive edema and nonspecific fluid collections in the subcutaneous tissues. Shawn Reyes MD Head CT 12/11/16 0000 Signed Impressions: Service Date/Time: Sunday, December 11, 2016 20:00 - CONCLUSION: Slight atrophic and small vessel ischemic changes without any evidence for acute hemorrhage or mass effect. Shawn Reyes MD Renal Ultrasound 12/09/16 0000 Signed Impressions: Service Date/Time: Friday, December 09, 2016 15:16 - CONCLUSION: 1. 8.4 cm mass lesion at the base of the bladder. This may represent an intrinsic mass of the bladder versus a prominent anterior lobe of the prostate. 2. Otherwise, urinary bladder is partially decompressed with a Lipscomb catheter. 3. Both kidneys are sonographically normal. Roby Horta MD Chest X-Ray 12/05/16 1700 Signed Impressions: Service Date/Time: November 18:52 - CONCLUSION: Left lung/hemithorax remain essentially completely opacified and with volume loss. Patchy consolidation on the right, mainly at the base. Masslike area right mid lung potentially some loculated pleural fluid. Paul Sinha MD Objective Remarks GENERAL: This is a well-nourished, well-developed patient, in no apparent distress. CARDIOVASCULAR: Regular rate and regular rhythm without murmurs, gallops, or rubs. RESPIRATORY: Clear to auscultation on right side, left lung with decreased air entry. No wheezing, rhonchi or murmur auscultated. GASTROINTESTINAL: Abdomen soft, non-tender, nondistended. Normal, active bowel sounds MUSCULOSKELETAL: Extremities without clubbing, cyanosis, or edema. NEURO: Alert & Oriented x4 to person, place, time, situation. Moves all ext x4 Procedures 12/11- EGD- esophagitis, gastritis, duodenitis PEG placement Medications and IVs Current Medications Medications (Trade) Dose Ordered Sig/Luis Carlos Route Start Time Stop Time Status Last Admin (NS Flush) 2 ml UNSCH PRN FLUSH 12/05/16 17:00 (NS Flush) 2 ml BID FLUSH 12/05/16 21:00 12/23/16 08:58 (Zofran Inj) 4 mg Q6H PRN IVP 12/05/16 18:00 (Dulcolax Supp) 10 mg DAILY PRN WA 12/05/16 18:00 (Colace) 100 mg Q12H PO 12/05/16 18:00 12/24/16 05:42 (Narcan Inj) 0.4 mg UNSCH PRN IV 12/05/16 17:00 (Vasotec Inj) 2.5 mg Q6H PRN IV PUSH 12/05/16 18:00 12/24/16 07:19 (Ferrous Sulfate Liq) 300 mg DAILY PO 12/06/16 09:00 12/25/16 08:27 (Cardura) 8 mg HS PO 12/05/16 21:00 12/24/16 21:09 (Lipitor) 40 mg HS PO 12/05/16 21:00 12/24/16 21:09 (Lasix Liq) 40 mg DAILY TUBE 12/06/16 09:00 Hold 12/20/16 08:50 (Jacinda-Colace) 2 tab BID PRN PO 12/05/16 19:45 (Lactulose Liq) 30 ml TID PRN PO 12/05/16 19:45 Magnesium Hydroxide 30 ml 30 ml Q6H PRN PO 12/05/16 19:45 (NS 1000 ml Inj) 1,000 ml @ 0 mls/hr Q0M PRN IV 12/06/16 12:11 12/12/16 09:33 Heparin Sodium (Porcine) 8000 units 8,000 units UNSCH PRN IVF 12/06/16 12:15 Sodium Chloride 1,000 ml @ 200 mls/hr Q5H PRN IV 12/06/16 12:11 (NS 1000 ml Inj) 1,000 ml @ 0 mls/hr Q0M PRN IV 12/06/16 12:11 (Mannitol Inj) 12.5 gm UNSCH PRN IV 12/06/16 12:15 (Albumin 25% Inj) 25 gm UNSCH PRN IV 12/06/16 12:15 (NS Flush) 5 ml UNSCH PRN IVF 12/06/16 12:15 (Heparin Inj) UNSCH PRN .XX 12/06/16 12:15 12/14/16 16:39 (Gentamicin (Dialysis) Inj) 20 mg UNSCH PRN IV 12/06/16 12:15 12/14/16 16:39 (Zofran Inj) 4 mg UNSCH PRN IV 12/06/16 12:15 (Tylenol) 650 mg UNSCH PRN PO 12/06/16 12:15 12/14/16 07:54 (Benadryl) 25 mg UNSCH PRN PO 12/06/16 12:15 (Nitrostat Sl) 0.4 mg UNSCH PRN SL 12/06/16 12:15 (Catapres) 0.1 mg UNSCH PRN PO 12/06/16 12:15 12/19/16 06:27 (Epogen Inj) 10,000 units UNSCH PRN IV 12/06/16 12:15 12/14/16 16:39 (Gelfoam 12 Mm/7 Mm Top) 1 foam UNSCH PRN TOP 12/06/16 12:15 (Megace Liq) 400 mg DAILY PO 12/08/16 09:00 12/25/16 08:27 (Heparin Inj) 5,000 units Q12HR SQ 12/08/16 21:00 12/25/16 08:27 (Dilantin Liq) 300 mg Q12HR PO 12/08/16 21:00 12/25/16 08:27 (Flonase Evan Spr) 2 spray DAILY EACH NARE 12/18/16 12:00 12/25/16 08:26 Calcium Acetate 667 mg 667 mg TID PO 12/20/16 09:00 12/25/16 08:26 (1/2 NS 1000 ml Inj) 1,000 ml @ 65 mls/hr [id number] IV 12/20/16 10:00 12/24/16 21:10 (Procardia Xl) 60 mg DAILY PO 12/25/16 09:00 12/25/16 08:26 Date of Insertion: Nov 15, 2016 A/P Assessment and Plan 1. Squamous cell carcinoma of the lung: Status post stent placement in the left main bronchus at [facility]. Patient required to be intubated and mechanically ventilated, status post extubation. Patient had a complicated stay with a stent in the left main bronchus. Oncology consulted. Radiation oncology consulted and radiation therapy was recommended. Patient underwent radiation simulation on 12/23/16. XRT will take about a week to plan and then the patient will need approximately over 6 weeks of treatment. 2. Acute kidney injury: Active renal failure AT due to PEA arrest. Patient required some treatments with hemodialysis which has been held, last treatment was on 12/17/16. Currently on IV fluids as per renal recommendations and renal function is improving. Lasix on hold since patient has a good urine output. Continue to monitor BUN/creatinine, strict I's and O's and avoid nephrotoxic medications. Given episode of hypoxemia and increased oxygen demand I will hold IV fluids for now and give diuretics. 3. Hypertension: Blood pressure uncontrolled versus only with elevated blood pressure into the systolic 160s. Patient was started on Procardia XL 30 mg daily which dose was increased to 60 mg daily on 12/24/16. Blood pressure is still elevated. I will start the patient on Cardura 2 mg by mouth daily. 4. Hypokalemia: Now resolved. Continue to monitor BMP and replace as needed. 5. BPH: On doxazosin 8 mg daily at bedtime. 6. Bladder mass: Neurology consulted. For cystoscopy when the patient stronger in the future. Neurology will need to be consulted if patient optimal condition for surgery/procedure which will require anesthesia. 7. Acute respiratory failure: Patient again had an episode of oxygen desaturation. Chest x-ray reviewed by me shows complete whiteout of the left lung and some pulmonary vascular congestion on the right. I will hold IV fluids and give IV Bumex. Continue DuoNeb as needed. Echocardiogram 55-60%. Continue supplemental O2 to keep o2 sat > 92%. 8. Klebsiella pneumonia: Bronchus sputum positive for Klebsiella, treated at [facility] and finish course of antibiotics as per previous records. Blood cultures was negative. 9. Iron deficiency anemia: Low iron stores. Patient is status post EGD which found gastritis, duodenitis and esophagitis being treated with PPI. 10. Severe protein calorie malnutrition: Albumin 1.7 on admission. Patient is status post PEG placement on 12/11/16. Status post IV iron treatment. 11. Left upper extremity superficial thrombophlebitis: Much improved. Treat with warm compresses. 12. UTI: Culture grew Nisa. Status post treatment. 13. Seizure disorder: Seem stable. Tinea Dilantin. Seizure precautions. 14. DVT prophylaxis: SCDs, heparin subcutaneously.issac SQ. 15. GI Prophylaxis: I will add a PPI. 16. PT/OT daily - Will need therapy at rehab upon discharge. 17. Poor appetite: Better on Megace. Continue. Discharge Planning Continue to monitor in the medical floor. Diego Sherwood MD Dec 25, 2016 09:30
--- NOTE | 2016-12-25 09:37 | RADRPT ---
EXAM DATE/TIME: 12/25/2016 08:59 [place] COMPARISON: CT SIMULATION, December 23, 2016, 15:24. CT THORAX W CONTRAST, October 24, 2016, 8:40. CHEST SINGLE A P, December 05, 2016, 18:52. INDICATIONS : Hypoxia. Short of breath. MEDICAL HISTORY : Carcinoma, lung. Cardiovascular disease Hypertension.Seizures SURGICAL HISTORY : None. ENCOUNTER: Subsequent ACUITY: 3 weeks PAIN SCORE: 0/10 LOCATION: Bilateral chest FINDINGS: The examination demonstrates complete opacification of the left in the thorax which is similar to pre vious exam. The patient's dialysis catheter on the right in good position. There is patchy parenchymal infiltrate throughout the right lung and a 4.4 cm right lung mass as well. This appears to be fluid loculated w ithin the fissure. Note is made of a stent within the left mainstem bronchus. Visualized bony structures are grossly intact. CONCLUSION: 1. Complete opacification of the left hemithorax unchanged from previous. 2. 4.5 cm masslike density on the right which appears to be fluid loculated in the fissure. This is d ecreased in size when compared to previous. 3. Dialysis catheter in good position. Patrick Shelton MD on December 25, 2016 at 9:32 Board Certified Radiologist. This report was verified electronically.
[2016-12-25] MEDS: DOXAZOSIN MESYLATE 2 MG TAB PO SCH (10:15)
[2016-12-25] MEDS ORDERED: PANTOPRAZOLE SODIUM 40 MG VIAL IV PUSH SCH (10:15)
[2016-12-25] MEDS ORDERED: BUMETANIDE INJ 1 MG/4 ML VIAL IV PUSH ONE (10:15)
[2016-12-25] MEDS: PANTOPRAZOLE SOD 40 MG DELAYED RELEASE TAB PO SCH (10:30)
--- NOTE | 2016-12-25 11:53 | HHI.HCPN ---
Reason for visit a. To assist with evaluation and management of symptoms including: dyspnea, weakness, malnutrition b. To assist medical decision maker(s) with: better understanding of current medical conditions; weighing benefits/burdens of medical treatment options; making medical treatment decisions. Subjective/Interval History Pt seen to follow up on comfort, goals. [facility] team was called earlier for desaturation, SOB. O2 was increased to 6L via facemask O2, med attending ordered Lasix. CXR essentially unchanged : Complete opacification of the left hemithorax unchanged from previous. 4.5 cm masslike density on the right which appears to be fluid loculated in the fissure. This is decreased in size when compared to previous. Allergy continues to follow, dialysis been held for the past several days due to BUN and creatinine slightly improved/ stable, urine output adequate, considering discontinuing dialysis access. Patient went for XRT simulation 12/23--planned to begin XRT treatments here in the hospital. Appetite is somewhat improved now on Megace, eating 50% of many meals; still fluctuates with 00495 percent sometimes. Receiving tube feeding at night. Case management continues to work on discharge planning, working on SNF options /outpatient treatments, [facility] Patient seen in room no family or visitors present. He is lethargic. He is less sharp than my prior interactions with him. He is oriented to hospital and self though unable to tell me any details of today or any details of his medical conditions or plans such as radiation, discharge etc. He falls asleep often during conversation. He denies any symptoms of discomfort. He denies dyspnea though appears mildly short of breath with conversation. *Following exam call to patient healthcare surrogate son Lupe, to provide update , Voicemail left. 1530 notified later by administrative aide Dr Saucedo pt with change in status , transferred to [facility] now on bipap, may require intubation . Intubation poses additional risks due to diagnosis, recent stenting, and will not change pt overall outcome or prognosis. Call again to pt son/HCS Lupe Dietrichg- able to reach him this time, spoke with him at length RE pt changes in condition today, current assessment and prognosis , risks/benefits of intubation, and that pt currently still full Code. Lupe endorses that he is struggling to honor the pt wishes as the pt had been adamant about being full code, but that he (lupe) understands pt will not do well and intubation will not treat lung malignancy or improve outcomes. He is going to talk to his siblings this afternoon before making further decisions. He wishes to cont bipap for now, avoid intubation if possible, while he sorts out with his brothers what next step will be. Advise alternative is comfort measures/comfort for EOL. He seems to have good understanding and provided him w C # to call if changes to code status desired, he also has my contact information. He understands that with or without intubation, pt expected to continue to decline until his . . Advance Directives Living Will: Completed, but not made available Health Care Surrogate: Copy in medical record Advance Directive Specifics Date completed: 12/17/16 Health Care Surrogate(s): Names son Lupe Jaime as HCS Objective Vital Signs Date Time Temp Pulse Resp B/P Pulse Ox O2 Delivery O2 Flow Rate FiO2 12/25/16 08:15 Simple Mask 6.00 12/25/16 08:00 97.4 89 17 170/79 96 12/25/16 07:26 94 Nasal Cannula 3.00 12/25/16 04:00 97.5 91 18 154/69 96 12/25/16 00:00 97.5 89 18 154/71 96 12/24/16 21:15 Nasal Cannula 3.00 12/24/16 20:00 97.6 95 18 165/79 92 12/24/16 12:00 97.7 93 17 152/74 94 Physical Exam CONSTITUTIONAL/GENERAL: This is a chronically ill appearing pt, no distress, lethargic TUBES/LINES/DRAINS:pIV LUE, NC O2. +PEG tube, +foot drop boots CARDIOVASCULAR: Regular rate and rhythm, no murmurs. Peripheral pulses symmetric. RESPIRATORY/CHEST: Symmetric, unlabored respirations. 6 L simple facemask. Clear, decreased air movement to the left. GASTROINTESTINAL: Abdomen soft, non-tender, nondistended. No palpable masses. No guarding. Bowel sounds present.PEG tube clamped ,dressing clean/dry NEUROLOGICAL: Lethargic, falls asleep frequently. Oriented times 12. Poor insight. Follows commands. Moves all 4 extremities with significant weakness PSYCHIATRIC: No obvious anxiety/depression. no apparent hallucinations or other psychotic thought process. . Diagnostic Tests Laboratory Laboratory Tests Test 12/23/16 12/23/16 12/24/16 12/25/16 04:33 12:55 04:26 04:51 Sodium Level 140 MEQ/L 141 MEQ/L 141 MEQ/L (136-145) (136-145) (136-145) Potassium Level 3.3 MEQ/L 3.6 MEQ/L 3.5 MEQ/L (3.5-5.1) (3.5-5.1) (3.5-5.1) Chloride Level 98 MEQ/L 101 MEQ/L 101 MEQ/L (98-107) (98-107) (98-107) Carbon Dioxide Level 30.0 MEQ/L 29.3 MEQ/L 28.5 MEQ/L (21.0-32.0) (21.0-32.0) (21.0-32.0) Anion Gap 12 MEQ/L (5-15) 11 MEQ/L (5-15) 12 MEQ/L (5-15) Blood Urea Nitrogen 112 MG/DL 117 MG/DL 116 MG/DL (7-18) (7-18) (7-18) Creatinine 4.89 MG/DL 4.71 MG/DL 4.42 MG/DL (0.60-1.30) (0.60-1.30) (0.60-1.30) Estimat Glomerular Filtration 12 ML/MIN (>89) 12 ML/MIN (>89) 13 ML/MIN (>89) Rate Random Glucose 120 MG/DL 124 MG/DL 126 MG/DL (74-106) (74-106) (74-106) Calcium Level 7.9 MG/DL 8.2 MG/DL 8.3 MG/DL (8.5-10.1) (8.5-10.1) (8.5-10.1) Hemoglobin 8.9 GM/DL (13.0-17.0) Hematocrit 27.7 % (39.0-51.0) Phosphorus Level 4.5 MG/DL (2.5-4.9) Albumin 2.0 GM/DL (3.4-5.0) Result Diagram: 12/23/16 1255 12/25/16 0451 Imaging Last Impressions Chest X-Ray 12/25/16 0000 Signed Impressions: Service Date/Time: Sunday, December 25, 2016 08:59 - CONCLUSION: 1. Complete opacification of the left hemithorax unchanged from previous. 2. 4.5 cm masslike density on the right which appears to be fluid loculated in the fissure. This is decreased in size when compared to previous. 3. Dialysis catheter in good position. Patrick Shelton MD Upper Extremity Ultrasound 12/11/16 1506 Signed Impressions: Service Date/Time: Sunday, December 11, 2016 18:00 - CONCLUSION: Superficial thrombophlebitis, extensive edema and nonspecific fluid collections in the subcutaneous tissues. Shawn Reyes MD Head CT 12/11/16 0000 Signed Impressions: Service Date/Time: Sunday, December 11, 2016 20:00 - CONCLUSION: Slight atrophic and small vessel ischemic changes without any evidence for acute hemorrhage or mass effect. Shawn Reyes MD Renal Ultrasound 12/09/16 0000 Signed Impressions: Service Date/Time: Friday, December 09, 2016 15:16 - CONCLUSION: 1. 8.4 cm mass lesion at the base of the bladder. This may represent an intrinsic mass of the bladder versus a prominent anterior lobe of the prostate. 2. Otherwise, urinary bladder is partially decompressed with a Lipscomb catheter. 3. Both kidneys are sonographically normal. Roby Horta MD Assessment and Plan Disease Oriented Problem List: (1) Mass of left lung Comment: +SCC (2) Acute renal failure (3) Squamous cell lung cancer (4) Bladder mass (5) Anemia (6) UTI (urinary tract infection) Comment: awaiting BX/resection when stable (7) Severe muscle deconditioning (8) Acute respiratory failure Comment: resolved Symptom Scale: (1) Malnutrition (2) Dyspnea (3) Weakness Pertinent Non-Medical Issues Psychosocial:. 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 Lives at home alone. Supported by 4 sons, 2 in [place], 2 in [place] Spiritual: Legal:pt appears able to participate in decision making. Reports his son Lupe is [facility], they will provide copies. Pt appears to have simple understanding of things and wishes to include his son in medical updates and decision making . Ethical issues impacting care: Important Contacts Son Marly Landeros- ([facility]) Lupe Prieto [phone] Son Marly Jaime [phone] Prognosis This patient has a new diagnosis of squamous cell carcinoma, s/p mass resection , intubation and arrest. He subsequently suffered acute renal failure and remains on hemodialysis. He has new findings of a large bladder mass, concerning for cancer, however cannot have additional diagnostic procedures until acute condition improves. It is possible his cancer could be treated, however his acute issues need to improve and his overall performance status needs to improve in order to obtain staging, and possible treatment. He has multiple issues and is severely deconditioned, it may take significant time for him to improve enough for treatment and during that time he remains high risk for further complications and setbacks. Code Status: Full Code Plan * Legal decision maker:pt appears able to participate in decision making. Reports his son Lupe is HCS, they will provide copies. Pt appears to have simple understanding of things and wishes to include his son in medical updates and decision making . HCS completed 12/17/16 naming son Lupe Jaime as HCS * Goals: GOALS HAVE BEEN AGGRESSIVE, pt wants to try to get needed resources in line in order to to go back home to [place] with his son, and possible obtain chemotherapy to treat his cancer and have more time. Patient's son and healthcare surrogate Lupe is supportive of the patient's wishes. They're working to try to get him up to [place] closer to them. I provided an update to son 12/19 --Attempted to reach son Lupe 12/25/16 to provide update, voicemail left -- 1530, later able to reach son Lupe when calling RE change in status- spoke at length (see subjective) --- > no changes elected, will discuss code status further w his brothers. * CODE STATUS: Full code * SYMPTOMS: --dyspnea- s/p acute resp failure- prolonged intubation, resolved. Has been on nasal cannula O2, PRN nebulizers-- denies and shortness of breath; earlier today with episode of desaturation, dyspnea. CXR appears unchanged, essentially white out of left lung. O2 sats since improved, now on 6 L facemask. + Additional diuretic has been added by medical attending --malnutrition- +PEG, TF at night, + oral food in day time, on MEGACE, appetite fair, appears to improving intake slowly -- eating 50% of most recent meals, still fluctuates at times eating 25%, or 100%. --weakness/deconditioning - in hospital since 10/22 -- severely deconditioned- -> PT working with, pt with limited strength to even sit on side of bed.Pt reports difficulty feeding self due to weakness.Continues to work with OT. * Palliative care will continue to follow during hospital course as condition evolves, to assist patient/decision-maker with understanding of medical conditions, weighing benefits/burdens of treatment options, for clarification of goals of treatment. Additionally will assist with any symptoms of palliative concern Attestation To help prompt me to consider important information that might be impacting today's encounter and assessment, information from prior notes written by myself or my colleagues may have been "brought forward" into today's note. My signature on this note, however, is an attestation that I personally performed the exam, history, and/or decision-making noted today, and, unless otherwise indicated, the interactions with patient, family, and staff as well as the review of records all occurred today. I also attest that the listed assessment and stated plan reflect my best clinical judgment today based on the combination of historical information, prior notes, and today's exam/ interactions. When time spent is documented, it refers only to time spent today by the signer, or if indicated, combined time spent today by collaborating physician/nurse practitioner. Evangelina Watson Dec 25, 2016 11:53
[2016-12-25 14:40] LABS: BLOOD GAS BASE EXCESS 0.8 mmol/L (-2-2); BLOOD GAS CARBOXYHEMOGLOBIN 1.5 % (0-4); BLOOD GAS HCO3 29 mmol/L (22-26); BLOOD GAS METHEMOGLOBIN 0.7 % (0-2); BLOOD GAS O2 HGB SATURATION 96 % (90-100); BLOOD GAS OXYGEN CONTENT 14.4 Vol % (12.0-20.0); BLOOD GAS PCO2 82 mmHg (38-42); BLOOD GAS PO2 141 mmHg (61-120); BLOOD GAS TOTAL HGB 10.4 G/DL (12.0-16.0); CRITICAL VALUE YES; TEMP CORR TO 98.6
[2016-12-25 14:41] LABS: DRAW SITE RT RADIAL; LITER FLOW 6 L/M; NUMBER OF ARTERIAL PUNCTURES 1; OXYGEN DEVICE MASK; STAT YES; ULNAR PULSE PRESENT
--- NOTE | 2016-12-25 15:11 | PD.CONS ---
[facility] Service Critical Care Medicine Consult Requested By Rapid Response Nurse Reason for Consult altered mental status Primary Care Physician [facility] History of Present Illness This is a 71yM with history of left bronchial NSCLC who was recently sent [facility] bronchial stent placement. He also has acute renal failure from a recent cardiac arrest. He was on the floor today and had worsening hypoxia, altered mental status. rapid response was called and the patient was found to be in hypercarbic/hypoxic respiratory failure with abg 7.1/82/141. He was emergently transferred to the ICU. I evaluated the patient on arrival to the ICU. He is obtunded and cannot answer questions. he does arouse to sternal rub, but does not follow commands. Critical care medicine is consulted to evaluate and manage his hypercarbic and hypoxic respiratory failure. Review of Systems ROS Limitations: Clinical Condition, Altered Mental Status Past Family Social History Allergies: Coded Allergies: No Known Allergies (Unverified , 10/21/16) Past Medical History unknown secondary to the clinical condition of the patient. I do know he has NSCLC. Past Surgical History unknown secondary to the clinical condition of the patient. he did have recent bronchial stent placed in [place] recently. Reported Medications unknown secondary to the clinical condition of the patient. Active Ordered Medications See MAR Family History unknown secondary to the clinical condition of the patient. Social History unknown secondary to the clinical condition of the patient. Physical Exam Vital Signs Vital Signs Date Time Temp Pulse Resp B/P Pulse Ox O2 Delivery O2 Flow Rate FiO2 12/25/16 14:12 96.3 87 25 141/67 98 12/25/16 12:00 97.1 87 18 134/89 99 12/25/16 08:15 Simple Mask 6.00 12/25/16 08:00 97.4 89 17 170/79 96 12/25/16 07:26 94 Nasal Cannula 3.00 12/25/16 04:00 97.5 91 18 154/69 96 12/25/16 00:00 97.5 89 18 154/71 96 12/24/16 21:15 Nasal Cannula 3.00 12/24/16 20:00 97.6 95 18 165/79 92 Physical Exam On my evaluation, this is a elderly male, obtunded. in severe respiratory distress. lungs have significantly decreased BS on the left, cyanotic. normal rate, regular rhythm abdomen is soft, nontender, nondistended without guarding no peripheral edema, 2+ distal pulses RASS -3. does not follow commands. withdraws x 4. non focal. Laboratory Laboratory Tests Test 12/25/16 12/25/16 04:51 14:15 Sodium Level 141 Potassium Level 3.5 Chloride Level 101 Carbon Dioxide Level 28.5 Anion Gap 12 Blood Urea Nitrogen 116 Creatinine 4.42 Estimat Glomerular Filtration 13 Rate Random Glucose 126 Calcium Level 8.3 Phosphorus Level 4.5 Albumin 2.0 Blood Gas Puncture Site RT RADIAL Blood Gas Patient Temperature 98.6 Blood Gas HCO3 29 Blood Gas Base Excess 0.8 Blood Gas Oxygen Saturation 96 Arterial Blood pH 7.17 Arterial Blood Partial 82 Pressure CO2 Arterial Blood Partial 141 Pressure O2 Arterial Blood Oxygen Content 14.4 Arterial Blood 1.5 Carboxyhemoglobin Arterial Blood Methemoglobin 0.7 Blood Gas Hemoglobin 10.4 Oxygen Delivery Device MASK Blood Gas Liter Flow 6 Result Diagram: 12/23/16 1255 12/25/16 0451 Assessment and Plan Assessment and Plan Assessment: 71yM with NSCLC, s/p bronchial stent placement, now in hypercarbic and hypoxic respiratory failure. At this point, we have placed the patient on BiPAP. He remains a Full Code. However, I do not want to disrupt a recent bronchial stent with intubation unless his respiratory status worsens or does not improve. I think the safest thing for now is a short trial of BiPAP to see if he can improve. If he does not improve, then I think we must accept the risk of stent disruption and proceed with intubation. I will also check dilantin level since he has been on this with renal dysfunction. He remains very critically ill at this time, and if his respiratory failure does not improve, will require intubation. Given his cancer, intubation will likely be ultimately fatal for him, as he will likely not recover from mechanical ventilation combined with his other acute on chronic medical problems. Active Problems: Acute Hypercarbic and Hypoxic Respiratory Failure Metabolic Encephalopathy CO2 Narcosis Non-Small Cell Lung Cancer Plan: -- BiPAP. If he does not make rapid improvements, will proceed with intubation if no improvement. -- send dilantin level -- NPO while altered -- serial ABG -- hold sedating meds -- will f/u with palliative care re: goals of care. he will likely not survive if intubated. Critical Care time: 52 minutes, exclusive of separately billable procedures. Americo Saucedo MD Dec 25, 2016 15:11
[2016-12-25 16:46] LABS: BLOOD GAS BASE EXCESS 0.1 mmol/L (-2-2); BLOOD GAS CARBOXYHEMOGLOBIN 1.8 % (0-4); BLOOD GAS HCO3 27 mmol/L (22-26); BLOOD GAS O2 HGB SATURATION 97 % (90-100); BLOOD GAS OXYGEN CONTENT 11.9 Vol % (12.0-20.0); BLOOD GAS PCO2 66 mmHg (38-42); BLOOD GAS PO2 165 mmHg (61-120); BLOOD GAS TOTAL HGB 8.5 G/DL (12.0-16.0); TEMP CORR TO 98.6
[2016-12-25 16:47] LABS: DRAW SITE RT BRACHIAL; FIO2 50 %; NUMBER OF ARTERIAL PUNCTURES 1; OXYGEN DEVICE BIPAP; STAT NO; ULNAR PULSE PRESENT; VENT SETTINGS IPAP+15/EPAP+5
[2016-12-25 18:14] LABS: BLOOD GAS BASE EXCESS 0.5 mmol/L (-2-2); BLOOD GAS HCO3 27 mmol/L (22-26); BLOOD GAS O2 HGB SATURATION 93 % (90-100); BLOOD GAS OXYGEN CONTENT 11.6 Vol % (12.0-20.0); BLOOD GAS PCO2 59 mmHg (38-42); BLOOD GAS PO2 83 mmHg (61-120); BLOOD GAS TOTAL HGB 8.7 G/DL (12.0-16.0); TEMP CORR TO 98.6
[2016-12-25 18:15] LABS: CRITICAL VALUE YES; OXYGEN DEVICE BIPAP; VENT SETTINGS IPAP+15/EPAP+5
[2016-12-25 18:16] LABS: DRAW SITE RT BRACHIAL; FIO2 35 %; NUMBER OF ARTERIAL PUNCTURES 1; STAT NO; ULNAR PULSE PRESENT
[2016-12-25] MEDS: ATORVASTATIN 40 MG TAB PO SCH (20:56)
[2016-12-25] MEDS: DOXAZOSIN MESYLATE 4 MG TAB PO SCH (21:22)
[2016-12-25] MEDS ORDERED: CHLORHEXIDINE GLUCONATE 2 % 1 PACK (2 CLOTHS)(extra cloths) TOPICAL PRN (22:30)
[2016-12-26] VITALS (18 sets, daily range): BP systolic 146–171; BP diastolic 67–78; PULSE 74–95; RESP 20–25; TEMP 98.2–98.6; O2SAT 94–100
[2016-12-26] MEDS: CHLORHEXIDINE GLUCONATE 2 % 1 PACK (2 CLOTHS)(taper/protocol) TOPICAL SCH (04:00)
[2016-12-26 05:38] LABS: HEMATOCRIT 27.6 % (39.0-51.0); MEAN CELL VOLUME 88.6 FL (80.0-100.0); MEAN CORPUSCULAR HEMOGLOBIN 27.8 PG (27.0-34.0); MEAN CORPUSCULAR HGB CONC 31.4 % (32.0-36.0); PLATELET COUNT 425 TH/MM3 (150-450); RED BLOOD COUNT 3.11 MIL/MM3 (4.50-5.90); RED CELL DISTRIBUTION WIDTH 15.7 % (11.6-17.2); REVIEW FLAG FINAL; WHITE BLOOD COUNT 11.1 TH/MM3 (4.0-11.0)
[2016-12-26 05:59] LABS: BICARBONATE 27.5 MEQ/L (21.0-32.0); MAGNESIUM 2.1 MG/DL (1.5-2.5); POTASSIUM 3.4 MEQ/L (3.5-5.1)
[2016-12-26] MEDS: DOCUSATE SODIUM 100 MG CAP PO SCH ×2 (06:05→17:14)
[2016-12-26] MEDS: PANTOPRAZOLE SOD 40 MG DELAYED RELEASE TAB PO SCH (09:00)
[2016-12-26] MEDS: FLUTICASONE PROPIONATE 50 MCG/ACT 16 GM NASAL SPRAY EACH NARE SCH (09:00)
[2016-12-26] MEDS: SODIUM CHLORIDE 0.9% FLUSH 5 ML FLUSH FLUSH SCH ×2 (09:00→19:51)
--- NOTE | 2016-12-26 09:09 | HHI.NPPN ---
Subjective General Problems: Anemia, Edema Renal Failure: Acute History of Present Illness 71 y/o male pt. Transferred [place] [facility] with renal failure from possible ATN. Interval History patient has been transferred to ICU. Events noted. Currently he is on BIPAP. Off IVF. Received 1 dose of Bumex. He has excellent urine output. CXR revealed opacification of left hemithorax. Review of Systems General Constitutional: Fever, Fatigue Objective Data Data 12/25/16 12/26/16 19:00 07:00 Intake Total 225 ml 1451 ml Output Total 1025 ml 1600 ml Balance -800 ml -149 ml Intake Oral 225 ml 720 ml Tube Feeding 611 ml Tube Irrigant 120 ml Output Urine Total 1025 ml 1600 ml # Bowel Movements 0 0 Vital Signs Date Time Temp Pulse Resp B/P Pulse Ox O2 Delivery O2 Flow Rate FiO2 12/26/16 08:00 97 35 12/26/16 06:00 90 12/26/16 04:56 95 35 12/26/16 04:00 84 12/26/16 04:00 98.2 84 25 146/67 94 12/26/16 02:00 79 12/26/16 00:18 98 35 12/26/16 00:00 97 Bi-Pap 35 12/26/16 00:00 85 12/26/16 00:00 98.3 85 23 158/74 97 Manual Cuff/Auscultation 12/25/16 22:00 84 12/25/16 20:18 98 35 12/25/16 20:00 82 12/25/16 20:00 98 Bi-Pap 35 12/25/16 20:00 98.2 82 25 155/72 98 12/25/16 18:00 74 12/25/16 16:00 100 Bi-Pap 50 12/25/16 16:00 74 12/25/16 16:00 98.3 74 23 113/62 100 12/25/16 15:27 100 Bi-Pap 50 12/25/16 14:12 96.3 87 25 141/67 98 12/25/16 12:00 97.1 87 18 134/89 99 -: 12/26/16 0521 12/26/16 0521 Tubes & Lines: Miranda Tubes & Lines Comment PEG, Physical Exam General Appearance: Well Developed, No Acute Distress, Comfortable Eyes Eye Exam: Pupils Equal, Pupils Reactive Throat Throat Exam: Oral Mucosa [place] & Moist Pulmonary Resp Exam: Breath Sounds Equal, No Distress, Decreased Bases, Diminished Breath Sounds Cardiology CV Exam: Regular, Normal Sinus Rhythm, Good Perfusion, Murmur Gastrointestinal/Abdomen GI Exam: Soft, Non-Tender, Bowel Sounds Present, Positive Bowel Movement Genitourinary Exam: Clear Urine Musculoskeletal [place] Exam: Joints Intact, Atrophy, Unable to Ambulate Integumentary Skin Exam: Clear, Warm, Dry, Intact Extremeties Extremities Exam: No Edema, Pedal Pulses Palpable Neurologic Neuro Exam: Alert, Awake, Oriented Psychiatric Psych Exam: Appropriate Responses Assessment/Plan Discussed Condition With: Patient, Son Assessment Summary: TODD/Acute Renal Failure, Acute Tubular Necrosis Electrolyte Assessment: Hypokalemia Problem List: (1) Acute renal failure Plan: He had creatinine 0.77 in October Renal failure ATN due to PEA arrest HD has been held, last treatment 12/17 Creatinine and BUN about the same as yesterday. Hold HD again today, reevaluate tomorrow (2) Bronchiolar obstruction Plan: s/p stent placement, dx of squamous cell carcinoma med oncology following (3) Mass of left lung Plan: oncology has evaluated, appreciate their recommendations he is unstable for systemic treatment at this time being scheduled for radiation treatment for approximately 6 weeks. May have lung collapse. Poor prognosis. (4) Acute respiratory failure Plan: extubated, on nasal cannula continuous on tube feeding at night with oral nutrition s/p PEG placement; swallowing has improved but oral intake/caloric intake is not adequate speech therapy following (5) UTI (urinary tract infection) Plan: resolved, off Diflucan has indwelling miranda but will keep it in due to bladder mass (6) Anemia Plan: Hb stable Has been seen by Hematology. transfused on admission and given Venofer for iron deficiency also on oral iron Epogen with HD Hemoccult positive , cannot tolerate bowel prep for colonoscopy (7) Bladder mass Plan: urology following, bladder US report noted he will need cystoscopy with TURBT when more stable Problem Qualifiers (1) UTI (urinary tract infection): Willian Borjas MD Dec 26, 2016 09:09
[2016-12-26] MEDS: MEGESTROL ACETATE SUSP 400 MG/10 ML CUP PO SCH (09:19)
[2016-12-26] MEDS: FERROUS SULFATE 300 MG /5ML UDC PO SCH (09:19)
[2016-12-26] MEDS: NIFEdipine 60 MG SUSTAINED RELEASE TAB PO SCH (09:19)
[2016-12-26] MEDS: PHENYTOIN SUSP 100 MG/4 ML CUP PO SCH ×2 (09:19→20:02)
[2016-12-26] MEDS: HEPARIN SODIUM - SQ 10,000 UNITS/ML VIAL SQ SCH ×2 (09:20→20:03)
[2016-12-26] MEDS: DOXAZOSIN MESYLATE 2 MG TAB PO SCH (09:20)
[2016-12-26] MEDS: CALCIUM ACETATE 667 MG CAP PO SCH ×3 (09:21→17:14)
--- NOTE | 2016-12-26 13:12 | EKG ---
Date Performed: 12/25/2016 Time Performed: 14:58:50 PTAGE: 71 years EKG: Sinus rhythm Right axis deviation Right bundle branch block Abnormal ECG PREVIOUS TRACING : 10/21/2016 08.26 Compared to prior tracing no significant change DOCTOR: Elton Perkins Interpretating Date/Time 12/26/2016 13:10:50
--- NOTE | 2016-12-26 13:28 | HHI.HCPN ---
Reason for visit a. To assist with evaluation and management of symptoms including: dyspnea, weakness, malnutrition b. To assist medical decision maker(s) with: better understanding of current medical conditions; weighing benefits/burdens of medical treatment options; making medical treatment decisions. Subjective/Interval History Pt seen to follow up on dyspnea , goals. Patient had episode of respiratory distress yesterday requiring transfer to ICU and BiPAP. Concern that he would require intubation however he stabilized with BiPAP treatment. He remains in ICU. CXR yesterday afternoon was essentially unchanged. Nephrology continues to follow, dialysis on hold, monitoring BUN/creatinine patient may not require ongoing hemodialysis. Patient initially seen in room he is on his cell phone he informs he is speaking to his son Elpidio and he asked me to come back later. I saw him later today-he seems to be at his baseline level of cognition and understanding. Asked him where he is, he knows that he is in the ICU, he knows that he was here because he had one of his "crash episodes ". Asked him if he knows why he said "hell if I know , they don't know ". Gently explore that it is secondary to lung cancer and that these episodes will continue as his cancer will continue to cause decline since he has been unable to receive treatment for his cancer. He tells me that the BiPAP mask helped him and that he was told people can sometimes even go home and use BiPAP as night. I further gently explore with him that clinically he is not at any point to be discharged home and that it is very unlikely he will ever be discharged home, and that in some cases a home BiPAP mass could help but in his case the underlying cause of his issues is answered. BiPAP will not provide long-term treatment or management for his cancer. Explore that he nearly required intubation yesterday , he asked me if that means being on a breathing tube laying there and doing nothing-when I told him that would be ventilation, he says he never wants to do that again. I advised that I could change his CODE STATUS to DNR and those wishes would be honored he would not be placed on a ventilator but instead made comfortable. He tells me that neither of those are very good options that we are telling him he can either go on a breathing tube or diet, he indicates he does not want either and he will not authorize me to place a DNR order. ROS negative, currently endorses good appetite, feeling hungry and thirsty, feeling well overall. Tells me that he was having some coughing earlier and so a therapist saw him and tested him with varying degrees of thick liquids which he did not like but that he thinks he passed and is able to swallow normal. Nursing advises that per SGOT he did tolerate thin liquids of nursing notes with larger quantities he does have significant coughing episodes. + ongoing concern for aspiration risk. Following exam call to [id number](Elpidio's ) per their request for update. Spoke with her at length again review conditions, underlying diagnosis , recent changes, limited treatment options going forward and overall prognosis. all Questions answered. She endorses that they will continue to support whatever the patient's wishes are including full code though they understand that this may mean that they may have to make decisions regarding possible removal of vent etc. if he does again require ventilation. Spoke at length with ICU nurse. Advance Directives Living Will: Completed, but not made available Health Care Surrogate: Copy in medical record Advance Directive Specifics Date completed: 12/17/16 Health Care Surrogate(s): Names son Elpidio Jaime as HCS Objective Vital Signs Date Time Temp Pulse Resp B/P Pulse Ox O2 Delivery O2 Flow Rate FiO2 12/26/16 12:00 95 12/26/16 10:00 95 12/26/16 09:18 96 Nasal Cannula 3.00 12/26/16 08:00 98.4 95 20 157/77 94 12/26/16 08:00 Simple Mask 3.00 12/26/16 08:00 95 12/26/16 08:00 97 35 12/26/16 06:00 90 12/26/16 04:56 95 35 12/26/16 04:00 84 12/26/16 04:00 98.2 84 25 146/67 94 12/26/16 02:00 79 12/26/16 00:18 98 35 12/26/16 00:00 97 Bi-Pap 35 12/26/16 00:00 85 12/26/16 00:00 98.3 85 23 158/74 97 Manual Cuff/Auscultation 12/25/16 22:00 84 12/25/16 20:18 98 35 12/25/16 20:00 82 12/25/16 20:00 98 Bi-Pap 35 12/25/16 20:00 98.2 82 25 155/72 98 12/25/16 18:00 74 12/25/16 16:00 100 Bi-Pap 50 12/25/16 16:00 74 12/25/16 16:00 98.3 74 23 113/62 100 12/25/16 15:27 100 Bi-Pap 50 12/25/16 14:12 96.3 87 25 141/67 98 Intake & Output 12/26/16 12/26/16 07:00 19:00 Intake Total 1451 ml Output Total 1600 ml Balance -149 ml Intake Oral 720 ml Tube Feeding 611 ml Tube Irrigant 120 ml Output Urine Total 1600 ml # Bowel Movements 0 Physical Exam CONSTITUTIONAL/GENERAL: This is a chronically ill appearing pt, no distress, alert, pleasant TUBES/LINES/DRAINS:pIV LUE, NC O2. +PEG tube, +foot drop boots CARDIOVASCULAR: Regular rate and rhythm, no murmurs. Peripheral pulses symmetric. RESPIRATORY/CHEST: Symmetric, unlabored respirations. 3L nc. Clear to right, significantly decreased/minimal air movement to the left. GASTROINTESTINAL: Abdomen soft, non-tender, nondistended. No palpable masses. No guarding. Bowel sounds present.PEG tube clamped ,dressing clean/dry NEUROLOGICAL: Alert, mostly oriented. Reasonable/simple insight into hospitalization and conditions. Follows commands. Moves all 4 extremities with significant weakness PSYCHIATRIC: No obvious anxiety/depression. no apparent hallucinations or other psychotic thought process. . Diagnostic Tests Laboratory Laboratory Tests Test 12/24/16 12/25/16 12/25/16 12/25/16 04:26 04:51 14:15 16:05 Sodium Level 141 MEQ/L 141 MEQ/L (136-145) (136-145) Potassium Level 3.6 MEQ/L 3.5 MEQ/L (3.5-5.1) (3.5-5.1) Chloride Level 101 MEQ/L 101 MEQ/L (98-107) (98-107) Carbon Dioxide Level 29.3 MEQ/L 28.5 MEQ/L (21.0-32.0) (21.0-32.0) Anion Gap 11 MEQ/L (5-15) 12 MEQ/L (5-15) Blood Urea Nitrogen 117 MG/DL 116 MG/DL (7-18) (7-18) Creatinine 4.71 MG/DL 4.42 MG/DL (0.60-1.30) (0.60-1.30) Estimat Glomerular Filtration 12 ML/MIN (>89) 13 ML/MIN (>89) Rate Random Glucose 124 MG/DL 126 MG/DL (74-106) (74-106) Calcium Level 8.2 MG/DL 8.3 MG/DL (8.5-10.1) (8.5-10.1) Phosphorus Level 4.5 MG/DL (2.5-4.9) Albumin 2.0 GM/DL (3.4-5.0) Blood Gas Puncture Site RT RADIAL RT BRACHIAL Blood Gas Patient Temperature 98.6 98.6 Blood Gas HCO3 29 mmol/L 27 mmol/L (22-26) (22-26) Blood Gas Base Excess 0.8 mmol/L 0.1 mmol/L (-2-2) (-2-2) Blood Gas Oxygen Saturation 96 % (90-100) 97 % (90-100) Arterial Blood pH 7.17 7.24 (7.380-7.420) (7.380-7.420) Arterial Blood Partial 82 mmHg (38-42) 66 mmHg (38-42) Pressure CO2 Arterial Blood Partial 141 mmHg 165 mmHg Pressure O2 (61-120) (61-120) Arterial Blood Oxygen Content 14.4 Vol % 11.9 Vol % (12.0-20.0) (12.0-20.0) Arterial Blood 1.5 % (0-4) 1.8 % (0-4) Carboxyhemoglobin Arterial Blood Methemoglobin 0.7 % (0-2) 1.0 % (0-2) Blood Gas Hemoglobin 10.4 G/DL 8.5 G/DL (12.0-16.0) (12.0-16.0) Oxygen Delivery Device MASK BIPAP Blood Gas Liter Flow 6 L/M Blood Gas Ventilator Setting IPAP+15/EPAP+5 Blood Gas Inspired Oxygen 50 % Phenytoin (Dilantin) Level 15.8 MCG/ML (10.0-20.0) Test 12/25/16 12/25/16 12/26/16 18:02 21:00 05:21 Blood Gas Puncture Site RT BRACHIAL Blood Gas Patient Temperature 98.6 Blood Gas HCO3 27 mmol/L (22-26) Blood Gas Base Excess 0.5 mmol/L (-2-2) Blood Gas Oxygen Saturation 93 % (90-100) Arterial Blood pH 7.28 (7.380-7.420) Arterial Blood Partial 59 mmHg (38-42) Pressure CO2 Arterial Blood Partial 83 mmHg Pressure O2 (61-120) Arterial Blood Oxygen Content 11.6 Vol % (12.0-20.0) Arterial Blood 2.0 % (0-4) Carboxyhemoglobin Arterial Blood Methemoglobin 1.0 % (0-2) Blood Gas Hemoglobin 8.7 G/DL (12.0-16.0) Oxygen Delivery Device BIPAP Blood Gas Ventilator Setting IPAP+15/EPAP+5 Blood Gas Inspired Oxygen 35 % Nasal Screen MRSA (PCR) NEGATIVE (NEGATIVE) White Blood Count 11.1 TH/MM3 (4.0-11.0) Red Blood Count 3.11 MIL/MM3 (4.50-5.90) Hemoglobin 8.7 GM/DL (13.0-17.0) Hematocrit 27.6 % (39.0-51.0) Mean Corpuscular Volume 88.6 FL (80.0-100.0) Mean Corpuscular Hemoglobin 27.8 PG (27.0-34.0) Mean Corpuscular Hemoglobin 31.4 % Concent (32.0-36.0) Red Cell Distribution Width 15.7 % (11.6-17.2) Platelet Count 425 TH/MM3 (150-450) Mean Platelet Volume 6.5 FL (7.0-11.0) Sodium Level 142 MEQ/L (136-145) Potassium Level 3.4 MEQ/L (3.5-5.1) Chloride Level 104 MEQ/L (98-107) Carbon Dioxide Level 27.5 MEQ/L (21.0-32.0) Anion Gap 11 MEQ/L (5-15) Blood Urea Nitrogen 117 MG/DL (7-18) Creatinine 4.40 MG/DL (0.60-1.30) Estimat Glomerular Filtration 13 ML/MIN (>89) Rate Random Glucose 120 MG/DL (74-106) Calcium Level 8.5 MG/DL (8.5-10.1) Phosphorus Level 5.3 MG/DL (2.5-4.9) Magnesium Level 2.1 MG/DL (1.5-2.5) Result Diagram: 12/26/16 0521 12/26/16 0521 Imaging Last Impressions Chest X-Ray 12/25/16 0000 Signed Impressions: Service Date/Time: Sunday, December 25, 2016 08:59 - CONCLUSION: 1. Complete opacification of the left hemithorax unchanged from previous. 2. 4.5 cm masslike density on the right which appears to be fluid loculated in the fissure. This is decreased in size when compared to previous. 3. Dialysis catheter in good position. Patrick Shelton MD Upper Extremity Ultrasound 12/11/16 1506 Signed Impressions: Service Date/Time: Sunday, December 11, 2016 18:00 - CONCLUSION: Superficial thrombophlebitis, extensive edema and nonspecific fluid collections in the subcutaneous tissues. Shawn Reyes MD Head CT 12/11/16 0000 Signed Impressions: Service Date/Time: Sunday, December 11, 2016 20:00 - CONCLUSION: Slight atrophic and small vessel ischemic changes without any evidence for acute hemorrhage or mass effect. Shawn Reyes MD Renal Ultrasound 12/09/16 0000 Signed Impressions: Service Date/Time: Friday, December 09, 2016 15:16 - CONCLUSION: 1. 8.4 cm mass lesion at the base of the bladder. This may represent an intrinsic mass of the bladder versus a prominent anterior lobe of the prostate. 2. Otherwise, urinary bladder is partially decompressed with a Lipscomb catheter. 3. Both kidneys are sonographically normal. Roby Horta MD Assessment and Plan Disease Oriented Problem List: (1) Mass of left lung Comment: +SCC (2) Acute renal failure (3) Squamous cell lung cancer (4) Bladder mass (5) Anemia (6) UTI (urinary tract infection) Comment: awaiting BX/resection when stable (7) Severe muscle deconditioning (8) Acute respiratory failure Comment: resolved Symptom Scale: (1) Malnutrition (2) Dyspnea (3) Weakness Pertinent Non-Medical Issues Psychosocial:. 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 Lives at home alone. Supported by 4 sons, 2 in [place], 2 in [place] Spiritual: Legal:pt appears able to participate in decision making. Reports his son Elpidio is HCS, they will provide copies. Pt appears to have simple understanding of things and wishes to include his son in medical updates and decision making . Ethical issues impacting care: Important Contacts Son Marly Landeros- ([facility]) Elpidio Jaime [phone] Jevon Landeros - Soham Jaime [phone] . Prognosis This patient has a new diagnosis of squamous cell carcinoma, s/p mass resection , intubation and arrest. He subsequently suffered acute renal failure and remains on hemodialysis. He has new findings of a large bladder mass, concerning for cancer, however cannot have additional diagnostic procedures until acute condition improves. It is possible his cancer could be treated, however his acute issues need to improve and his overall performance status needs to improve in order to obtain staging, and possible treatment. He has multiple issues and is severely deconditioned, it may take significant time for him to improve enough for treatment and during that time he remains high risk for further complications and setbacks. Code Status: Full Code Plan * Legal decision maker:pt appears able to participate in decision making. Reports his son Elpidio is [facility], they will provide copies. Pt appears to have simple understanding of things and wishes to include his son in medical updates and decision making . [facility] completed 12/17/16 naming son Elpidio Jiame as [facility] * Goals: GOALS HAVE BEEN AGGRESSIVE, pt wants to try to get needed resources in line in order to to go back home to [place] with his son, and possible obtain chemotherapy to treat his cancer and have more time. Patient's son and healthcare surrogate Elpidio is supportive of the patient's wishes. They're working to try to get him up to [place] closer to them. I provided an update to son 12/19 --12/26/16patient again able to participate today. Expresses aggressive goals. On one hand he does not want to go on a breathing tube again however he also does not want the alternative which would be comfort measures and a peaceful . I have updated patient healthcare surrogate; they continue to support whatever the patient's goals are and understand at some point he could end up intubated and they will have to make further decisions from there. * CODE STATUS: Full code * SYMPTOMS: --dyspnea- s/p acute resp failure- prolonged intubation, resolved. Has been on nasal cannula O2, PRN nebulizers-- denies and shortness of breath; earlier today with episode of desaturation, dyspnea. CXR appears unchanged, essentially white out of left lung. Episode of respiratory distress yesterday, required transfer to ICU and BiPAP, currently maintaining on nasal cannula plan for BiPAP in the evening/overnight. --malnutrition- +PEG, TF at night, + oral food in day time, on MEGACE, appetite fair, appears to improving intake slowly -- eating 50% of most recent meals, still fluctuates at times eating 25%, or 100%. --weakness/deconditioning - in hospital since 10/22 -- severely deconditioned- -> PT working with, pt with limited strength to even sit on side of bed.Pt reports difficulty feeding self due to weakness.Continues to work with OT. --Dysphagia-some concern with coughing with drinking per [employer], post ST eval seems to be tolerating thin liquids though probably remains ongoing risk for aspiration * Palliative care will continue to follow during hospital course as condition evolves, to assist patient/decision-maker with understanding of medical conditions, weighing benefits/burdens of treatment options, for clarification of goals of treatment. Additionally will assist with any symptoms of palliative concern Time Spent Total Floor Time (mins): 45 >50% Counseling/Coord of Care: Yes (d/w Rn , DW attending/critical care) Attestation To help prompt me to consider important information that might be impacting today's encounter and assessment, information from prior notes written by myself or my colleagues may have been "brought forward" into today's note. My signature on this note, however, is an attestation that I personally performed the exam, history, and/or decision-making noted today, and, unless otherwise indicated, the interactions with patient, family, and staff as well as the review of records all occurred today. I also attest that the listed assessment and stated plan reflect my best clinical judgment today based on the combination of historical information, prior notes, and today's exam/ interactions. When time spent is documented, it refers only to time spent today by the signer, or if indicated, combined time spent today by collaborating physician/nurse practitioner. Evangelina Watson Dec 26, 2016 13:28
[2016-12-26] MEDS ORDERED: POTASSIUM CHLORIDE 20 MEQ PWD PACKET PEG ONE (17:00)
--- NOTE | 2016-12-26 18:54 | HHI.PR ---
Subjective Remarks Patient states feels better denies cp/sob denies fevers/chills BP very elevated 93% on 3 L nasal cannula. Objective Vitals Vital Signs Date Time Temp Pulse Resp B/P Pulse Ox O2 Delivery O2 Flow Rate FiO2 12/26/16 14:00 95 12/26/16 12:00 95 12/26/16 12:00 98.6 85 20 162/77 96 12/26/16 10:00 95 12/26/16 09:18 96 Nasal Cannula 3.00 12/26/16 08:00 98.4 95 20 157/77 94 12/26/16 08:00 Simple Mask 3.00 12/26/16 08:00 95 12/26/16 08:00 97 35 12/26/16 06:00 90 12/26/16 04:56 95 35 12/26/16 04:00 84 12/26/16 04:00 98.2 84 25 146/67 94 12/26/16 02:00 79 12/26/16 00:18 98 35 12/26/16 00:00 97 Bi-Pap 35 12/26/16 00:00 85 12/26/16 00:00 98.3 85 23 158/74 97 Manual Cuff/Auscultation 12/25/16 22:00 84 12/25/16 20:18 98 35 12/25/16 20:00 82 12/25/16 20:00 98 Bi-Pap 35 12/25/16 20:00 98.2 82 25 155/72 98 I/O 12/25/16 12/25/16 12/25/16 12/26/16 12/26/16 12/26/16 07:00 15:00 23:00 07:00 15:00 23:00 Intake Total 1224 ml 225 ml 456 ml 995 ml 240 ml Output Total 1300 ml 1025 ml 1000 ml 600 ml 700 ml Balance -76 ml -800 ml -544 ml 395 ml -460 ml Intake Oral 240 ml 225 ml 240 ml 480 ml 240 ml IV Total 494 ml Tube Feeding 490 ml 156 ml 455 ml Tube Irrigant 60 ml 60 ml Output Urine Total 1300 ml 1025 ml 1000 ml 600 ml 700 ml # Bowel Movements 0 0 0 Result Diagram: 12/26/16 0521 12/26/16 0521 Imaging Last Impressions Chest X-Ray 12/25/16 0000 Signed Impressions: Service Date/Time: Sunday, December 25, 2016 08:59 - CONCLUSION: 1. Complete opacification of the left hemithorax unchanged from previous. 2. 4.5 cm masslike density on the right which appears to be fluid loculated in the fissure. This is decreased in size when compared to previous. 3. Dialysis catheter in good position. Patrick Shelton MD Upper Extremity Ultrasound 12/11/16 1506 Signed Impressions: Service Date/Time: Sunday, December 11, 2016 18:00 - CONCLUSION: Superficial thrombophlebitis, extensive edema and nonspecific fluid collections in the subcutaneous tissues. Shawn Reyes MD Head CT 12/11/16 0000 Signed Impressions: Service Date/Time: Sunday, December 11, 2016 20:00 - CONCLUSION: Slight atrophic and small vessel ischemic changes without any evidence for acute hemorrhage or mass effect. Shawn Reyes MD Renal Ultrasound 12/09/16 0000 Signed Impressions: Service Date/Time: Friday, December 09, 2016 15:16 - CONCLUSION: 1. 8.4 cm mass lesion at the base of the bladder. This may represent an intrinsic mass of the bladder versus a prominent anterior lobe of the prostate. 2. Otherwise, urinary bladder is partially decompressed with a Lipscomb catheter. 3. Both kidneys are sonographically normal. Roby Horta MD Objective Remarks GENERAL: This is a well-nourished, well-developed patient, in no apparent distress. CARDIOVASCULAR: Regular rate and regular rhythm without murmurs, gallops, or rubs. RESPIRATORY: Clear to auscultation on right side, left lung with decreased air entry. No wheezing, rhonchi or murmur auscultated. GASTROINTESTINAL: Abdomen soft, non-tender, nondistended. Normal, active bowel sounds MUSCULOSKELETAL: Extremities without clubbing, cyanosis, or edema. NEURO: Alert & Oriented x4 to person, place, time, situation. Moves all ext x4 Procedures 12/11- EGD- esophagitis, gastritis, duodenitis PEG placement Medications and IVs Current Medications Medications (Trade) Dose Ordered Sig/Luis Carlos Route Start Time Stop Time Status Last Admin (NS Flush) 2 ml UNSCH PRN FLUSH 12/05/16 17:00 (NS Flush) 2 ml BID FLUSH 3/16/17 21:00 12/25/16 20:57 (Zofran Inj) 4 mg Q6H PRN IVP 12/05/16 18:00 (Dulcolax Supp) 10 mg DAILY PRN WV 12/05/16 18:00 (Colace) 100 mg Q12H PO 12/05/16 18:00 12/26/16 06:05 (Narcan Inj) 0.4 mg UNSCH PRN IV 12/05/16 17:00 (Ferrous Sulfate Liq) 300 mg DAILY PO 12/06/16 09:00 12/26/16 09:19 (Cardura) 8 mg HS PO 12/05/16 21:00 12/25/16 21:22 (Lipitor) 40 mg HS PO 12/05/16 21:00 12/25/16 20:56 (Lasix Liq) 40 mg DAILY TUBE 12/06/16 09:00 Hold 12/20/16 08:50 (Jacinda-Colace) 2 tab BID PRN PO 12/05/16 19:45 (Lactulose Liq) 30 ml TID PRN PO 12/05/16 19:45 Magnesium Hydroxide 30 ml 30 ml Q6H PRN PO 12/05/16 19:45 (NS 1000 ml Inj) 1,000 ml @ 0 mls/hr Q0M PRN IV 12/06/16 12:11 12/12/16 09:33 Heparin Sodium (Porcine) 8000 units 8,000 units UNSCH PRN IVF 12/06/16 12:15 Sodium Chloride 1,000 ml @ 200 mls/hr Q5H PRN IV 12/06/16 12:11 (NS 1000 ml Inj) 1,000 ml @ 0 mls/hr Q0M PRN IV 12/06/16 12:11 (Mannitol Inj) 12.5 gm UNSCH PRN IV 12/06/16 12:15 (Albumin 25% Inj) 25 gm UNSCH PRN IV 12/06/16 12:15 (NS Flush) 5 ml UNSCH PRN IVF 12/06/16 12:15 (Heparin Inj) UNSCH PRN .XX 12/06/16 12:15 12/14/16 16:39 (Gentamicin (Dialysis) Inj) 20 mg UNSCH PRN IV 12/06/16 12:15 12/14/16 16:39 (Zofran Inj) 4 mg UNSCH PRN IV 12/06/16 12:15 (Tylenol) 650 mg UNSCH PRN PO 12/06/16 12:15 12/14/16 07:54 (Benadryl) 25 mg UNSCH PRN PO 12/06/16 12:15 (Nitrostat Sl) 0.4 mg UNSCH PRN SL 12/06/16 12:15 (Catapres) 0.1 mg UNSCH PRN PO 12/06/16 12:15 12/19/16 06:27 (Epogen Inj) 10,000 units UNSCH PRN IV 12/06/16 12:15 12/14/16 16:39 (Gelfoam 12 Mm/7 Mm Top) 1 foam UNSCH PRN TOP 12/06/16 12:15 (Megace Liq) 400 mg DAILY PO 12/08/16 09:00 12/26/16 09:19 (Heparin Inj) 5,000 units Q12HR SQ 12/08/16 21:00 12/26/16 09:20 (Dilantin Liq) 300 mg Q12HR PO 12/08/16 21:00 12/26/16 09:19 (Flonase Evan Spr) 2 spray DAILY EACH NARE 12/18/16 12:00 12/25/16 08:26 Calcium Acetate 667 mg 667 mg TID PO 12/20/16 09:00 12/26/16 17:14 (1/2 NS 1000 ml Inj) 1,000 ml @ 65 mls/hr [id number] IV 12/20/16 10:00 Hold 12/24/16 21:10 (Procardia Xl) 60 mg DAILY PO 12/25/16 09:00 12/26/16 09:19 (Protonix) 40 mg DAILY PO 12/25/16 10:30 12/25/16 10:30 Miscellaneous Information Patient in critical care unit? Ass... [id number] .XX 12/25/16 22:30 12/25/16 22:30 (Chlorhexidine 2% Cloth) 3 pack DAILY@04 TOPICAL 12/26/16 04:00 12/30/16 04:01 12/26/16 04:00 (Chlorhexidine 2% Cloth) 3 pack UNSCH PRN TOPICAL 12/25/16 22:30 12/30/16 22:25 (Cardura) 4 mg DAILY PO 12/27/16 09:00 Urinary Catheter: Yes Assessment to: Continue Lipscomb insert reason: Measure Accurate Output Date of Insertion: Nov 15, 2016 Vascular Central Line Catheter: No A/P Assessment and Plan 1. Squamous cell carcinoma of the lung: Status post stent placement in the left main bronchus at [facility]. Patient required to be intubated and mechanically ventilated, status post extubation. Patient had a complicated stay with a stent in the left main bronchus. Oncology consulted. Radiation oncology consulted and radiation therapy was recommended. Patient underwent radiation simulation on 12/23/16. XRT will take about a week to plan and then the patient will need approximately over 6 weeks of treatment. 2. Acute kidney injury: Active renal failure ATN due to PEA arrest. Patient required some treatments with hemodialysis which has been held, last treatment was on 12/17/16. Currently on IV fluids as per renal recommendations and renal function is improving. Lasix on hold since patient has a good urine output. IV Fluids held. sp IV Bumex with excellent urine output. Continue to monitor BUN/creatinine, strict I's and O's and avoid nephrotoxic medications. Creatinine continue to trend down. 3. Hypertension: Blood pressure uncontrolled versus only with elevated blood pressure into the systolic 160s. Patient is on Procardia 60 mg po daily which I will increase to 90 mg po daily. Patient also on Cardura 8 mg po at HS which I will increase to 10 mg. Will Rx Clonidine prn. 4. Hypokalemia:K 3.4. Replace orally and continue to monitor. 5. BPH: On doxazosin. 6. Bladder mass: Neurology consulted. For cystoscopy when the patient stronger in the future. Neurology will need to be consulted if patient optimal condition for surgery/procedure which will require anesthesia. 7. Acute respiratory failure: Patient again had an episode of oxygen desaturation. Chest x-ray reviewed by me shows complete whiteout of the left lung and some pulmonary vascular congestion on the right. I will hold IV fluids and give IV Bumex. Continue DuoNeb as needed. Echocardiogram 55-60%. Continue supplemental O2 to keep o2 sat > 92%. 8. Klebsiella pneumonia: Bronchus sputum positive for Klebsiella, treated at [facility] and finish course of antibiotics as per previous records. Blood cultures was negative. 9. Iron deficiency anemia: Low iron stores. Patient is status post EGD which found gastritis, duodenitis and esophagitis being treated with PPI. 10. Severe protein calorie malnutrition: Albumin 1.7 on admission. Patient is status post PEG placement on 12/11/16. Status post IV iron treatment. 11. Left upper extremity superficial thrombophlebitis: Much improved. Treat with warm compresses. 12. UTI: Culture grew Nisa. Status post treatment. 13. Seizure disorder: Seem stable. Tinea Dilantin. Seizure precautions. 14. DVT prophylaxis: SCDs, heparin subcutaneously.issac SQ. 15. GI Prophylaxis: I will add a PPI. 16. PT/OT daily - Will need therapy at rehab upon discharge. 17. Poor appetite: Better on Megace. Continue. 19. Acute hypercapnic respiratory failure: Patient found to be lethargic yesterday, ABG showed a pH of 7.17, PCO2 of 82 and PO2 of 141. The patient was placed on BiPAP and after some time responded with improvement of his mentation and PCO2. Patient is currently off BiPAP and the patient's respiratory failure is much improved. Continue supplemental oxygen to keep oxygen saturation more than 92%. I will consult pulmonary for further recommendations. Discharge Planning ok to transfer to the medical floor. Diego Sherwood MD Dec 26, 2016 18:54
[2016-12-26] MEDS ORDERED: PILL SPLITTER OTHER PRN (19:00)
[2016-12-26] MEDS: ATORVASTATIN 40 MG TAB PO SCH (20:02)
[2016-12-26] MEDS: DOXAZOSIN MESYLATE 4 MG TAB PO SCH (20:13)
[2016-12-27] VITALS (14 sets, daily range): BP systolic 130–169; BP diastolic 58–83; PULSE 79–90; RESP 16–22; TEMP 97.1–98.8; O2SAT 95–99
[2016-12-27] MEDS: CHLORHEXIDINE GLUCONATE 2 % 1 PACK (2 CLOTHS)(taper/protocol) TOPICAL SCH (04:00)
[2016-12-27] MEDS: DOCUSATE SODIUM 100 MG CAP PO SCH ×2 (05:28→17:33)
[2016-12-27 07:27] LABS: HEMATOCRIT 27.7 % (39.0-51.0); MEAN CELL VOLUME 89.6 FL (80.0-100.0); MEAN CORPUSCULAR HEMOGLOBIN 29.8 PG (27.0-34.0); MEAN CORPUSCULAR HGB CONC 33.2 % (32.0-36.0); PLATELET COUNT 475 TH/MM3 (150-450); RED BLOOD COUNT 3.09 MIL/MM3 (4.50-5.90); RED CELL DISTRIBUTION WIDTH 15.6 % (11.6-17.2); REVIEW FLAG FINAL; WHITE BLOOD COUNT 10.7 TH/MM3 (4.0-11.0)
[2016-12-27 07:53] LABS: BICARBONATE 28.2 MEQ/L (21.0-32.0); POTASSIUM 3.5 MEQ/L (3.5-5.1)
[2016-12-27] MEDS ORDERED: DOXAZOSIN MESYLATE 4 MG TAB PO SCH (09:00)
[2016-12-27] MEDS: MEGESTROL ACETATE SUSP 400 MG/10 ML CUP PO SCH (09:09)
[2016-12-27] MEDS: CALCIUM ACETATE 667 MG CAP PO SCH ×3 (09:09→17:33)
[2016-12-27] MEDS: PANTOPRAZOLE SOD 40 MG DELAYED RELEASE TAB PO SCH (09:11)
[2016-12-27] MEDS: PHENYTOIN SUSP 100 MG/4 ML CUP PO SCH ×2 (09:11→21:25)
[2016-12-27] MEDS: HEPARIN SODIUM - SQ 10,000 UNITS/ML VIAL SQ SCH ×2 (09:18→21:25)
[2016-12-27] MEDS: FLUTICASONE PROPIONATE 50 MCG/ACT 16 GM NASAL SPRAY EACH NARE SCH (09:20)
[2016-12-27] MEDS: SODIUM CHLORIDE 0.9% FLUSH 5 ML FLUSH FLUSH SCH ×2 (09:21→21:00)
[2016-12-27] MEDS: NIFEdipine 90 MG SUSTAINED RELEASE TAB PO SCH (09:21)
--- NOTE | 2016-12-27 09:22 | HHI.NPPN ---
Subjective General Problems: Anemia, Edema Renal Failure: Acute History of Present Illness 71 y/o male pt. Transferred to [facility] from [facility] with renal failure from possible ATN. Interval History Sitting up eating breakfast. More alert today. Creatinine is better. (Marina Mcgovern) Review of Systems General Constitutional: Fever, Fatigue (Marina Mcgovern) Objective Data Data 12/26/16 12/27/16 19:00 07:00 Intake Total 240 ml 660 ml Output Total 700 ml 1700 ml Balance -460 ml -1040 ml Intake Oral 240 ml 0 ml Tube Feeding 460 ml Other 200 ml Output Urine Total 700 ml 1700 ml # Bowel Movements 0 Vital Signs Date Time Temp Pulse Resp B/P Pulse Ox O2 Delivery O2 Flow Rate FiO2 12/27/16 04:08 97.2 80 20 159/81 98 12/27/16 03:19 96 35 12/27/16 02:15 82 12/27/16 02:02 97.1 81 16 161/76 99 12/27/16 00:00 98.3 79 22 151/77 98 12/27/16 00:00 79 12/26/16 22:53 100 35 12/26/16 22:00 77 12/26/16 20:00 99 Bi-Pap 35 12/26/16 20:00 81 12/26/16 20:00 98.6 81 22 171/78 99 12/26/16 19:47 97 35 12/26/16 19:42 95 Nasal Cannula 2.50 12/26/16 18:00 90 12/26/16 16:00 98.4 74 20 164/74 95 12/26/16 16:00 95 12/26/16 14:00 95 12/26/16 12:00 95 12/26/16 12:00 98.6 85 20 162/77 96 12/26/16 10:00 95 (Marina Mcgovern) -: 12/27/16 0700 12/27/16 0700 Imaging Last 72 hours Impressions Chest X-Ray 12/25/16 0000 Signed Impressions: Service Date/Time: Sunday, December 25, 2016 08:59 - CONCLUSION: 1. Complete opacification of the left hemithorax unchanged from previous. 2. 4.5 cm masslike density on the right which appears to be fluid loculated in the fissure. This is decreased in size when compared to previous. 3. Dialysis catheter in good position. Patrick Shelton MD Tubes & Lines: Lipscomb Tubes & Lines Comment PEG, (Marina Mcgovern B. RN CLINICAL TRIALS) Physical Exam General Appearance: Well Developed, No Acute Distress, Comfortable (Jg Mcgovernon B. RN CLINICAL TRIALS) Eyes Eye Exam: Pupils Equal, Pupils Reactive (Marina Mcgovern B. RN CLINICAL TRIALS) Throat Throat Exam: Oral Mucosa [place] & Moist (FroilanMarina B. RN CLINICAL TRIALS) Pulmonary Resp Exam: Breath Sounds Equal, No Distress, Decreased Bases, Diminished Breath Sounds (Jg Mcgovernon B. RN CLINICAL TRIALS) Cardiology CV Exam: Regular, Normal Sinus Rhythm, Good Perfusion, Murmur (Marina Mcgovern B. RN CLINICAL TRIALS) Gastrointestinal/Abdomen GI Exam: Soft, Non-Tender, Bowel Sounds Present, Positive Bowel Movement ( Marina Mcgovern B. RN CLINICAL TRIALS) Genitourinary Exam: Clear Urine (Marina Mcgovern B. RN CLINICAL TRIALS) Musculoskeletal MS Exam: Joints Intact, Atrophy, Unable to Ambulate (Marina Mcgovern B. RN CLINICAL TRIALS) Integumentary Skin Exam: Clear, Warm, Dry, Intact (Marina Mcgovern B. RN CLINICAL TRIALS) Extremeties Extremities Exam: No Edema, Pedal Pulses Palpable (Jg Mcgovernon B. RN CLINICAL TRIALS) Neurologic Neuro Exam: Alert, Awake, Oriented, Speech Clear, Moving All Extremities ( Jg Mcgovernon B. RN CLINICAL TRIALS) Psychiatric Psych Exam: Appropriate Responses (Marina Mcgovern B. RN CLINICAL TRIALS) Assessment/Plan Discussed Condition With: Patient, Son Assessment Summary: TODD/Acute Renal Failure, Acute Tubular Necrosis Electrolyte Assessment: Hypokalemia Problem List: (1) Acute renal failure Plan: He had creatinine 0.77 in October Renal failure ATN due to PEA arrest HD has been held, last treatment 12/17 Creatinine is better, BUN remains elevated he appears to be recovering Hold HD again today, reevaluate tomorrow may remove Permcath in upcoming days off IVF avoid nephrotoxins (2) Bronchiolar obstruction Plan: s/p stent placement, dx of squamous cell carcinoma med oncology following (3) Mass of left lung Plan: oncology has evaluated, appreciate their recommendations he is unstable for systemic treatment at this time to have radiation therapy chest xray is worse (4) Acute respiratory failure Plan: extubated, on nasal cannula continuous on tube feeding at night with oral nutrition s/p PEG placement; swallowing has improved but oral intake/caloric intake is not adequate speech therapy following (5) Anemia Plan: Hb stable hematology/oncology following previously on epogen with HD, given venofer at admission Hemoccult positive , cannot tolerate bowel prep for colonoscopy (6) Bladder mass Plan: urology following, bladder US report noted he will need cystoscopy with TURBT when more stable (7) UTI (urinary tract infection) Plan: resolved, off antibiotics (Marina Mcgovern) Plan patient was seen and examined. Agree with above assessment and plan. (Willian Borjas MD) Problem Qualifiers (1) UTI (urinary tract infection): Marina Mcgovern Dec 27, 2016 09:22 Willian Borjas MD Dec 27, 2016 13:26
[2016-12-27] MEDS: FERROUS SULFATE 300 MG /5ML UDC PO SCH (10:32)
--- NOTE | 2016-12-27 14:16 | HHI.HCPN ---
Reason for visit a. To assist with evaluation and management of symptoms including: dyspnea, weakness, malnutrition b. To assist medical decision maker(s) with: better understanding of current medical conditions; weighing benefits/burdens of medical treatment options; making medical treatment decisions. (Evangelina Watson) Subjective/Interval History Pt seen to follow up on dyspnea , goals. I received a call prior to my visit from [id number] with questions regarding hospice. I answered her question regarding hospice services, and that patient certainly could be discharged to hospice with comfort oriented goals and it was possible that transfer from hospice to hospice from [place] to [place] could be arranged. Further explore that those transitions would be dependent on patient goals and if he wanted hospice. They will continue to discuss with patient. Dual visit with Steve Ely oncology PA. Patient respiratory status has remained stable, was transferred out of ICU and onto medical oncology floor. Has BiPAP available for overnight use, and prn. Renal functions remain stable, dialysis continues to be held, monitoring by nephrology. Appetite fair to good. Patient seen today in room with oncology PA. He is alert and oriented and appropriate. ROS essentially negative, he endorses no shortness of breath feeling well overall, no nausea or vomiting, good appetite. No pain. Exploration with oncology with him of illness course and initial proposed treatment of chemotherapy once he got strong enough, explore with him concerns that he will continue to decline and not ever regain enough strength to obtain chemotherapy treatment. Explore with him concerns that as he becomes more debilitated he'll continue to decline and will not be able to discharge out of the hospital due to medical issues, and that he could in the hospital setting. CXR with him alternatively his option would be to try to discharge locally with hospice, and transition up to [place] on hospice there, to spend his final days with his family. Explore that each day he remains here in the hospital he continues to be at risk for further complications and setbacks which will further limit any recovery and possibility of transitioning up to [place]. He expresses frustration with ongoing weakness, dependence on others for his care, and limited therapy availability, explore that some of the limitations on therapy are based on his medical needs and his body's inability to participate in aggressive many hour a day therapies. He expresses that he of course does not want to spend his final days in the hospital that he wants to be the way he was, but that he realizes the way he was is no longer an option. He wishes to talk to his son more in the coming weeks regarding the possibility of hospice as a way out of the hospital and to be home with family. He is not ready to make any decisions today however he is open to ongoing conversations. Following this discussion, I called [id number] Gwen leahy (healthcare surrogate son Elpidio's ) review with her my conversation with patient. She and Elpidio full continue to have ongoing conversations with patient. Discussed with primary nurse, oncology PA (Evangelina Watson) Advance Directives Living Will: Completed, but not made available Health Care Surrogate: Copy in medical record (Evangelina Watson) Advance Directive Specifics Date completed: 12/17/16 Health Care Surrogate(s): Names son Elpidio Jaime as HCS (Evangelina Watson) Objective Vital Signs Date Time Temp Pulse Resp B/P Pulse Ox O2 Delivery O2 Flow Rate FiO2 12/27/16 13:37 98.7 85 20 165/77 95 12/27/16 10:11 95 Nasal Cannula 3.00 12/27/16 09:23 Nasal Cannula 3.00 12/27/16 08:00 98.5 81 20 169/83 97 12/27/16 04:08 97.2 80 20 159/81 98 12/27/16 03:19 96 35 12/27/16 02:15 82 12/27/16 02:02 97.1 81 16 161/76 99 12/27/16 00:00 98.3 79 22 151/77 98 12/27/16 00:00 79 12/26/16 22:53 100 35 12/26/16 22:00 77 12/26/16 20:00 99 Bi-Pap 35 12/26/16 20:00 81 12/26/16 20:00 98.6 81 22 171/78 99 12/26/16 19:47 97 35 12/26/16 19:42 95 Nasal Cannula 2.50 12/26/16 18:00 90 12/26/16 16:00 98.4 74 20 164/74 95 12/26/16 16:00 95 Intake & Output 12/27/16 12/27/16 07:00 19:00 Intake Total 660 ml Output Total 1700 ml Balance -1040 ml Intake Oral 0 ml Tube Feeding 460 ml Other 200 ml Output Urine Total 1700 ml # Bowel Movements 0 Physical Exam CONSTITUTIONAL/GENERAL: This is a chronically ill appearing pt, no distress, alert, pleasant TUBES/LINES/DRAINS:pIV LUE, NC O2. +PEG tube, +foot drop boots CARDIOVASCULAR: Regular rate and rhythm, no murmurs. Peripheral pulses symmetric. RESPIRATORY/CHEST: Symmetric, unlabored respirations. 3L nc. Clear to right, significantly decreased/minimal air movement to the left. GASTROINTESTINAL: Abdomen soft, non-tender, nondistended. No palpable masses. No guarding. Bowel sounds present.PEG tube clamped ,dressing clean/dry NEUROLOGICAL: Alert, mostly oriented. Reasonable/simple insight into hospitalization and conditions. Follows commands. Moves all 4 extremities with significant weakness PSYCHIATRIC: No obvious anxiety/depression. no apparent hallucinations or other psychotic thought process. . (Evangelina Watson) Diagnostic Tests Laboratory Laboratory Tests Test 12/25/16 12/25/16 12/25/16 12/25/16 04:51 14:15 16:05 18:02 Sodium Level 141 MEQ/L (136-145) Potassium Level 3.5 MEQ/L (3.5-5.1) Chloride Level 101 MEQ/L (98-107) Carbon Dioxide Level 28.5 MEQ/L (21.0-32.0) Anion Gap 12 MEQ/L (5-15) Blood Urea Nitrogen 116 MG/DL (7-18) Creatinine 4.42 MG/DL (0.60-1.30) Estimat Glomerular Filtration 13 ML/MIN (>89) Rate Random Glucose 126 MG/DL (74-106) Calcium Level 8.3 MG/DL (8.5-10.1) Phosphorus Level 4.5 MG/DL (2.5-4.9) Albumin 2.0 GM/DL (3.4-5.0) Blood Gas Puncture Site RT RADIAL RT BRACHIAL RT BRACHIAL Blood Gas Patient Temperature 98.6 98.6 98.6 Blood Gas HCO3 29 mmol/L 27 mmol/L 27 mmol/L (22-26) (22-26) (22-26) Blood Gas Base Excess 0.8 mmol/L 0.1 mmol/L 0.5 mmol/L (-2-2) (-2-2) (-2-2) Blood Gas Oxygen Saturation 96 % (90-100) 97 % (90-100) 93 % (90-100) Arterial Blood pH 7.17 7.24 7.28 (7.380-7.420) (7.380-7.420) (7.380-7.420) Arterial Blood Partial 82 mmHg (38-42) 66 mmHg (38-42) 59 mmHg (38-42) Pressure CO2 Arterial Blood Partial 141 mmHg 165 mmHg 83 mmHg Pressure O2 (61-120) (61-120) (61-120) Arterial Blood Oxygen Content 14.4 Vol % 11.9 Vol % 11.6 Vol % (12.0-20.0) (12.0-20.0) (12.0-20.0) Arterial Blood 1.5 % (0-4) 1.8 % (0-4) 2.0 % (0-4) Carboxyhemoglobin Arterial Blood Methemoglobin 0.7 % (0-2) 1.0 % (0-2) 1.0 % (0-2) Blood Gas Hemoglobin 10.4 G/DL 8.5 G/DL 8.7 G/DL (12.0-16.0) (12.0-16.0) (12.0-16.0) Oxygen Delivery Device MASK BIPAP BIPAP Blood Gas Liter Flow 6 L/M Blood Gas Ventilator Setting IPAP+15/EPAP+5 IPAP+15/EPAP+5 Blood Gas Inspired Oxygen 50 % 35 % Phenytoin (Dilantin) Level 15.8 MCG/ML (10.0-20.0) Test 12/25/16 12/26/16 12/27/16 21:00 05:21 07:00 Nasal Screen MRSA (PCR) NEGATIVE (NEGATIVE) White Blood Count 11.1 TH/MM3 10.7 TH/MM3 (4.0-11.0) (4.0-11.0) Red Blood Count 3.11 MIL/MM3 3.09 MIL/MM3 (4.50-5.90) (4.50-5.90) Hemoglobin 8.7 GM/DL 9.2 GM/DL (13.0-17.0) (13.0-17.0) Hematocrit 27.6 % 27.7 % (39.0-51.0) (39.0-51.0) Mean Corpuscular Volume 88.6 FL 89.6 FL (80.0-100.0) (80.0-100.0) Mean Corpuscular Hemoglobin 27.8 PG 29.8 PG (27.0-34.0) (27.0-34.0) Mean Corpuscular Hemoglobin 31.4 % 33.2 % Concent (32.0-36.0) (32.0-36.0) Red Cell Distribution Width 15.7 % 15.6 % (11.6-17.2) (11.6-17.2) Platelet Count 425 TH/MM3 475 TH/MM3 (150-450) (150-450) Mean Platelet Volume 6.5 FL 6.6 FL (7.0-11.0) (7.0-11.0) Sodium Level 142 MEQ/L 141 MEQ/L (136-145) (136-145) Potassium Level 3.4 MEQ/L 3.5 MEQ/L (3.5-5.1) (3.5-5.1) Chloride Level 104 MEQ/L 101 MEQ/L (98-107) (98-107) Carbon Dioxide Level 27.5 MEQ/L 28.2 MEQ/L (21.0-32.0) (21.0-32.0) Anion Gap 11 MEQ/L (5-15) 12 MEQ/L (5-15) Blood Urea Nitrogen 117 MG/DL 119 MG/DL (7-18) (7-18) Creatinine 4.40 MG/DL 4.22 MG/DL (0.60-1.30) (0.60-1.30) Estimat Glomerular Filtration 13 ML/MIN (>89) 14 ML/MIN (>89) Rate Random Glucose 120 MG/DL 119 MG/DL (74-106) (74-106) Calcium Level 8.5 MG/DL 8.5 MG/DL (8.5-10.1) (8.5-10.1) Phosphorus Level 5.3 MG/DL (2.5-4.9) Magnesium Level 2.1 MG/DL (1.5-2.5) (Evangelina Watson) Result Diagram: 12/27/16 0700 12/27/16 0700 Imaging Last Impressions Chest X-Ray 12/25/16 0000 Signed Impressions: Service Date/Time: Sunday, December 25, 2016 08:59 - CONCLUSION: 1. Complete opacification of the left hemithorax unchanged from previous. 2. 4.5 cm masslike density on the right which appears to be fluid loculated in the fissure. This is decreased in size when compared to previous. 3. Dialysis catheter in good position. Patrick Shelton MD Upper Extremity Ultrasound 12/11/16 1506 Signed Impressions: Service Date/Time: Sunday, December 11, 2016 18:00 - CONCLUSION: Superficial thrombophlebitis, extensive edema and nonspecific fluid collections in the subcutaneous tissues. Shawn Reyes MD Head CT 12/11/16 0000 Signed Impressions: Service Date/Time: Sunday, December 11, 2016 20:00 - CONCLUSION: Slight atrophic and small vessel ischemic changes without any evidence for acute hemorrhage or mass effect. Shawn Reyes MD Renal Ultrasound 12/09/16 0000 Signed Impressions: Service Date/Time: Friday, December 09, 2016 15:16 - CONCLUSION: 1. 8.4 cm mass lesion at the base of the bladder. This may represent an intrinsic mass of the bladder versus a prominent anterior lobe of the prostate. 2. Otherwise, urinary bladder is partially decompressed with a Lipscomb catheter. 3. Both kidneys are sonographically normal. Roby Horta MD (Evangelina Watson [facility]) Assessment and Plan Disease Oriented Problem List: (1) Mass of left lung Comment: +SCC (2) Acute renal failure (3) Squamous cell lung cancer (4) Bladder mass (5) Anemia (6) UTI (urinary tract infection) Comment: awaiting BX/resection when stable (7) Severe muscle deconditioning (8) Acute respiratory failure Comment: resolved Symptom Scale: (1) Malnutrition (2) Dyspnea (3) Weakness Pertinent Non-Medical Issues Psychosocial:. 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 Lives at home alone. Supported by 4 sons, 2 in [place], 2 in [place] Spiritual: Legal:pt appears able to participate in decision making. Reports his son Elpidio is HCS, they will provide copies. Pt appears to have simple understanding of things and wishes to include his son in medical updates and decision making . Ethical issues impacting care: Important Contacts Son Marly Landeros- ([facility]) Elpidio Jaime [phone] Jevon Landeros - Soham Jaime [phone] . Prognosis This patient has a new diagnosis of squamous cell carcinoma, s/p mass resection , intubation and arrest. He subsequently suffered acute renal failure and remains on hemodialysis. He has new findings of a large bladder mass, concerning for cancer, however cannot have additional diagnostic procedures until acute condition improves. It is possible his cancer could be treated, however his acute issues need to improve and his overall performance status needs to improve in order to obtain staging, and possible treatment. He has multiple issues and is severely deconditioned, it may take significant time for him to improve enough for treatment and during that time he remains high risk for further complications and setbacks. Code Status: Full Code Plan * Legal decision maker:pt appears able to participate in decision making. Reports his son Elpidio is HCS, they will provide copies. Pt appears to have simple understanding of things and wishes to include his son in medical updates and decision making . [facility] completed 12/17/16 naming son Elpidio Jaime as HCS * Goals: GOALS HAVE BEEN AGGRESSIVE, pt wants to try to get needed resources in line in order to to go back home to [place] with his son, and possible obtain chemotherapy to treat his cancer and have more time. Patient's son and healthcare surrogate Elpidio is supportive of the patient's wishes. They're working to try to get him up to [place] closer to them. I provided an update to son 12/19 --12/27/16-discussion with patient, oncology PA as well as bedside regarding unlikely he will be able to pursue chemotherapy, usually be expected to experience continued decline and debility here in the hospital setting explored with him hospice option. He is not ready to transition to hospice at this time. Also spoke with his family regarding, they will have ongoing conversations with patient. Patient also advises he will talk to his family about the possibility of transitioning to hospice, he is open to ongoing discussions regarding. * CODE STATUS: Full code * SYMPTOMS: --dyspnea- s/p acute resp failure- prolonged intubation, resolved. Has been on nasal cannula O2, PRN nebulizers-- denies and shortness of breath; earlier today with episode of desaturation, dyspnea. CXR appears unchanged, essentially white out of left lung. Episode of respiratory distress earlier this week, required transfer to ICU and BiPAP, currently maintaining on nasal cannula w/ BiPAP in the evening/overnight, as needed --malnutrition- +PEG, TF at night, + oral food in day time, on MEGACE, appetite fair, appears to improving intake slowly -- eating 50% of most recent meals, fluctuates at times eating 25%, or 100%. --weakness/deconditioning - in hospital since 10/22 -- severely deconditioned- -> PT working with, pt with limited strength to even sit on side of bed.Pt reports difficulty feeding self due to weakness.Continues to work with OT/PT though clinical condition limits his ability to participate in prolonged therapy --Dysphagia-some concern with coughing with drinking per POWER PRESS TENDER, post [facility] ,tolerating thin liquids though probably remains ongoing risk for aspiration * Palliative care will continue to follow during hospital course as condition evolves, to assist patient/decision-maker with understanding of medical conditions, weighing benefits/burdens of treatment options, for clarification of goals of treatment. Additionally will assist with any symptoms of palliative concern (Evangelina Watson) Time Spent Total Floor Time (mins): 45 Face to Face Time (mins): 25 >50% Counseling/Coord of Care: Yes (discussed with primary nurse, oncology PA) (Evangelina Watson) Attestation To help prompt me to consider important information that might be impacting today's encounter and assessment, information from prior notes written by myself or my colleagues may have been "brought forward" into today's note. My signature on this note, however, is an attestation that I personally performed the exam, history, and/or decision-making noted today, and, unless otherwise indicated, the interactions with patient, family, and staff as well as the review of records all occurred today. I also attest that the listed assessment and stated plan reflect my best clinical judgment today based on the combination of historical information, prior notes, and today's exam/ interactions. When time spent is documented, it refers only to time spent today by the signer, or if indicated, combined time spent today by collaborating physician/nurse practitioner. (Evangelina Watson) Collaborating MD Comments . Chart reviewed. Cased discussed with palliative care GAMING DEALER. Above GAMING DEALER note reviewed and I concur. . (Ciro Reynoso MD) Evangelina Watson Dec 27, 2016 14:16 Ciro Reynoso MD February 17, 2017 14:45
--- NOTE | 2016-12-27 14:42 | PD.ONC.PN ---
Subjective Subjective Remarks Afebrile overnight. Patient expresses frustration with how much care is required for him each day. He does not like sitting on a bed charles. He has been eating well during the day and receiving tube feeds at night. Objective Data Date Time Temp Pulse Resp B/P Pulse Ox O2 Delivery O2 Flow Rate FiO2 12/27/16 13:37 98.7 85 20 165/77 95 12/27/16 10:11 95 Nasal Cannula 3.00 12/27/16 09:23 Nasal Cannula 3.00 12/27/16 08:00 98.5 81 20 169/83 97 12/27/16 04:08 97.2 80 20 159/81 98 12/27/16 03:19 96 35 12/27/16 02:15 82 12/27/16 02:02 97.1 81 16 161/76 99 12/27/16 00:00 98.3 79 22 151/77 98 12/27/16 00:00 79 12/26/16 22:53 100 35 12/26/16 22:00 77 12/26/16 20:00 99 Bi-Pap 35 12/26/16 20:00 81 12/26/16 20:00 98.6 81 22 171/78 99 12/26/16 19:47 97 35 12/26/16 19:42 95 Nasal Cannula 2.50 12/26/16 18:00 90 12/26/16 16:00 98.4 74 20 164/74 95 12/26/16 16:00 95 12/27/16 12/27/16 12/27/16 06:59 14:59 22:59 Intake Total 0 ml Output Total 800 ml Balance -800 ml Result Diagram: 12/27/16 0700 12/27/16 0700 Laboratory Results Laboratory Tests Test 12/27/16 07:00 White Blood Count 10.7 TH/MM3 Red Blood Count 3.09 MIL/MM3 Hemoglobin 9.2 GM/DL Hematocrit 27.7 % Mean Corpuscular Volume 89.6 FL Mean Corpuscular Hemoglobin 29.8 PG Mean Corpuscular Hemoglobin 33.2 % Concent Red Cell Distribution Width 15.6 % Platelet Count 475 TH/MM3 Mean Platelet Volume 6.6 FL Sodium Level 141 MEQ/L Potassium Level 3.5 MEQ/L Chloride Level 101 MEQ/L Carbon Dioxide Level 28.2 MEQ/L Anion Gap 12 MEQ/L Blood Urea Nitrogen 119 MG/DL Creatinine 4.22 MG/DL Estimat Glomerular Filtration 14 ML/MIN Rate Random Glucose 119 MG/DL Calcium Level 8.5 MG/DL Administered Medications Medications (Trade) Dose Ordered Sig/Luis Carlos Route PRN Reason Start Time Stop Time Status Last Admin Dose Admin IV Flush (NS Flush) 2 ml BID FLUSH 12/05/16 21:00 12/27/16 09:21 Docusate Sodium (Colace) 100 mg Q12H PO 12/05/16 18:00 12/27/16 05:28 Ferrous Sulfate (Ferrous Sulfate Liq) 300 mg DAILY PO 12/06/16 09:00 12/27/16 10:32 Atorvastatin Calcium (Lipitor) 40 mg HS PO 12/05/16 21:00 12/26/16 20:02 Furosemide 40 mg 40 mg DAILY TUBE 12/06/16 09:00 Hold 12/20/16 08:50 Sodium Chloride (NS 1000 ml Inj) 1,000 ml @ 0 mls/hr Q0M PRN IV For Prime & Rinse Back 12/06/16 12:11 12/12/16 09:33 Heparin Sodium (Porcine) (Heparin Inj) UNSCH PRN .XX WITH DIALYSIS 12/06/16 12:15 12/14/16 16:39 Gentamicin Sulfate (Gentamicin (Dialysis) Inj) 20 mg UNSCH PRN IV WITH DIALYSIS 12/06/16 12:15 12/14/16 16:39 Acetaminophen (Tylenol) 650 mg UNSCH PRN PO for headach, pain, temp > 101F 12/06/16 12:15 12/14/16 07:54 Clonidine (Catapres) 0.1 mg UNSCH PRN PO for BP > 180/100 X 2 readings 12/06/16 12:15 12/19/16 06:27 Epoetin Blanco (Epogen Inj) 10,000 units UNSCH PRN IV WITH DIALYSIS 12/06/16 12:15 12/14/16 16:39 Megestrol Acetate (Megace Liq) 400 mg DAILY PO 12/08/16 09:00 12/27/16 09:09 Heparin Sodium (Porcine) (Heparin Inj) 5,000 units Q12HR SQ 12/08/16 21:00 12/27/16 09:18 Phenytoin (Dilantin Liq) 300 mg Q12HR PO 12/08/16 21:00 12/27/16 09:11 Fluticasone Propionate (Flonase Evan Spr) 2 spray DAILY EACH NARE 12/18/16 12:00 12/27/16 09:20 Calcium Acetate 667 mg 667 mg TID PO 12/20/16 09:00 12/27/16 12:26 Sodium Chloride (1/2 NS 1000 ml Inj) 1,000 ml @ 65 mls/hr [id number] IV 12/20/16 10:00 Hold 12/24/16 21:10 Pantoprazole Sodium (Protonix) 40 mg DAILY PO 12/25/16 10:30 12/27/16 09:11 Miscellaneous Information Patient in critical care unit? Ass... [id number] .XX 12/25/16 22:30 12/25/16 22:30 Chlorhexidine Gluconate (Chlorhexidine 2% Cloth) 3 pack DAILY@04 TOPICAL 12/26/16 04:00 12/30/16 04:01 12/27/16 04:00 Doxazosin Mesylate (Cardura) 10 mg HS PO 12/26/16 21:00 12/26/16 20:13 Nifedipine (Procardia Xl) 90 mg DAILY PO 12/27/16 09:00 12/27/16 09:21 Miscellaneous (Pill Splitter) 1 ea UNSCH PRN OTHER SEE LABEL COMMENTS 12/26/16 19:00 12/27/16 10:33 Objective Remarks GENERAL: Severely physically deconditioned male, lying supine in bed watching TV SKIN: Warm and dry. HEAD: Normocephalic. EYES: No injection or drainage. NECK: Supple, trachea midline. CARDIOVASCULAR: Regular rate and rhythm RESPIRATORY: Breath sounds equal bilaterally. No accessory muscle use. GASTROINTESTINAL: Abdomen soft, non-tender, nondistended. PEG tube clamped EXTREMITIES: No cyanosis, or edema. 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 Jaime's history dates back to September 2016 when he began to develop increasing difficulty breathing as well as cough producing blood. He presented to [facility] on 10/22/2016 with acute worsening of difficulty breathing. He underwent imaging studies including a CT angiogram which revealed complete whiteout of the left lung, associated possible underlying mass / nodularity of the left hilum. He was shortly thereafter intubated. He had high volume hemoptysis. The patient was evaluated CT surgery here and after spending some time on a ventilator. He was transferred to the [facility] in [place] where he was evaluated by interventional pulmonology. 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 The left main bronchus was stented. The hemoptysis was controlled and he was eventually extubated. He did have a very complicated hospital stay though and while in the hospital he had a PEA arrest on 11/08/2016. He was resuscitated. He also developed acute renal failure and required hemodialysis. He has required a Dobbhoff tube for feeding purposes. 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 After his condition was stabilized he was transferred back to [facility] for continuation of care. Records from the [facility] indicated a bladder mass. Urology was consulted and they plan to do w/u once the patient is stronger. Plan 1. Nutrition: continuing regular diet during day and Nepro @ 65cc/hr via PEG tube at night 2. Renal failure: nephrology continuing to follow. not currently on HD (last was 12/17). they are considering removing perma-cath 3. Squamous cell carcinoma of the lung: XRT simulation was on 12/23 and XRT will possibly start next week. 4. Anemia: Transfuse as needed. GI plans to do colonoscopy when patient stronger and able to take bowel prep 5. Bladder mass: urology following and plans for cystoscopy once patient is stronger. 6. Respiratory insufficiency: a few days ago the patient desaturated, CXR showed whiteout of left lung and pulmonary vascular congestion on right. he required bipap for a short time. respiratory status now improved and tolerating O2 via NC. Elmira Ely Dec 27, 2016 14:42
--- NOTE | 2016-12-27 19:41 | HHI.PR ---
Subjective Remarks patient denies cp/sob denies fevers/chills bp elevated into the 150 to 160's sating well on 3 liters nasal canula tolerating tube feedings Objective Vitals Vital Signs Date Time Temp Pulse Resp B/P Pulse Ox O2 Delivery O2 Flow Rate FiO2 12/27/16 18:11 96 Nasal Cannula 3.00 12/27/16 17:27 98.0 87 20 130/58 96 12/27/16 13:37 98.7 85 20 165/77 95 12/27/16 10:11 95 Nasal Cannula 3.00 12/27/16 09:23 Nasal Cannula 3.00 12/27/16 08:00 98.5 81 20 169/83 97 12/27/16 04:08 97.2 80 20 159/81 98 12/27/16 03:19 96 35 12/27/16 02:15 82 12/27/16 02:02 97.1 81 16 161/76 99 12/27/16 00:00 98.3 79 22 151/77 98 12/27/16 00:00 79 12/26/16 22:53 100 35 12/26/16 22:00 77 12/26/16 20:00 99 Bi-Pap 35 12/26/16 20:00 81 12/26/16 20:00 98.6 81 22 171/78 99 12/26/16 19:47 97 35 12/26/16 19:42 95 Nasal Cannula 2.50 I/O 12/26/16 12/26/16 12/26/16 12/27/16 12/27/16 12/27/16 07:00 15:00 23:00 07:00 15:00 23:00 Intake Total 995 ml 240 ml 660 ml 0 ml 360 ml Output Total 600 ml 700 ml 900 ml 800 ml 1075 ml Balance 395 ml -460 ml -240 ml -800 ml -715 ml Intake Oral 480 ml 240 ml 0 ml 360 ml Tube Feeding 455 ml 460 ml Tube Irrigant 60 ml Other 200 ml Output Urine Total 600 ml 700 ml 900 ml 800 ml 1075 ml # Bowel Movements 0 0 Result Diagram: 12/27/16 0700 12/27/16 0700 Imaging Last Impressions Chest X-Ray 12/25/16 0000 Signed Impressions: Service Date/Time: Sunday, December 25, 2016 08:59 - CONCLUSION: 1. Complete opacification of the left hemithorax unchanged from previous. 2. 4.5 cm masslike density on the right which appears to be fluid loculated in the fissure. This is decreased in size when compared to previous. 3. Dialysis catheter in good position. Patrick Shelton MD Upper Extremity Ultrasound 12/11/16 1506 Signed Impressions: Service Date/Time: Sunday, December 11, 2016 18:00 - CONCLUSION: Superficial thrombophlebitis, extensive edema and nonspecific fluid collections in the subcutaneous tissues. Shawn Reyes MD Head CT 12/11/16 0000 Signed Impressions: Service Date/Time: Sunday, December 11, 2016 20:00 - CONCLUSION: Slight atrophic and small vessel ischemic changes without any evidence for acute hemorrhage or mass effect. Shawn Reyes MD Renal Ultrasound 12/09/16 0000 Signed Impressions: Service Date/Time: Friday, December 09, 2016 15:16 - CONCLUSION: 1. 8.4 cm mass lesion at the base of the bladder. This may represent an intrinsic mass of the bladder versus a prominent anterior lobe of the prostate. 2. Otherwise, urinary bladder is partially decompressed with a Lipscomb catheter. 3. Both kidneys are sonographically normal. Roby Horta MD Objective Remarks GENERAL: This is a well-nourished, well-developed patient, in no apparent distress. CARDIOVASCULAR: Regular rate and regular rhythm without murmurs, gallops, or rubs. RESPIRATORY: Clear to auscultation on right side, left lung with decreased breath sounds. No wheezing, rhonchi or murmur auscultated. GASTROINTESTINAL: Abdomen soft, non-tender, nondistended. Normal, active bowel sounds. PEG c/d/i MUSCULOSKELETAL: Extremities without clubbing, cyanosis, or edema. NEURO: Alert & Oriented x4 to person, place, time, situation. Moves all ext x4 Procedures 12/11- EGD- esophagitis, gastritis, duodenitis PEG placement Medications and IVs Current Medications Medications (Trade) Dose Ordered Sig/Luis Carlos Route Start Time Stop Time Status Last Admin (NS Flush) 2 ml UNSCH PRN FLUSH 12/05/16 17:00 (NS Flush) 2 ml BID FLUSH 12/05/16 21:00 12/27/16 21:00 (Zofran Inj) 4 mg Q6H PRN IVP 12/05/16 18:00 (Dulcolax Supp) 10 mg DAILY PRN NE 12/05/16 18:00 (Colace) 100 mg Q12H PO 12/05/16 18:00 12/27/16 17:33 (Narcan Inj) 0.4 mg UNSCH PRN IV 12/05/16 17:00 (Ferrous Sulfate Liq) 300 mg DAILY PO 12/06/16 09:00 12/27/16 10:32 (Lipitor) 40 mg HS PO 12/05/16 21:00 12/27/16 21:25 (Lasix Liq) 40 mg DAILY TUBE 12/06/16 09:00 Hold 12/20/16 08:50 (Jacinda-Colace) 2 tab BID PRN PO 12/05/16 19:45 (Lactulose Liq) 30 ml TID PRN PO 12/05/16 19:45 Magnesium Hydroxide 30 ml 30 ml Q6H PRN PO 12/05/16 19:45 (NS 1000 ml Inj) 1,000 ml @ 0 mls/hr Q0M PRN IV 12/06/16 12:11 12/12/16 09:33 Heparin Sodium (Porcine) 8000 units 8,000 units UNSCH PRN IVF 12/06/16 12:15 Sodium Chloride 1,000 ml @ 200 mls/hr Q5H PRN IV 12/06/16 12:11 (NS 1000 ml Inj) 1,000 ml @ 0 mls/hr Q0M PRN IV 12/06/16 12:11 (Mannitol Inj) 12.5 gm UNSCH PRN IV 12/06/16 12:15 (Albumin 25% Inj) 25 gm UNSCH PRN IV 12/06/16 12:15 (NS Flush) 5 ml UNSCH PRN IVF 12/06/16 12:15 (Heparin Inj) UNSCH PRN .XX 12/06/16 12:15 12/14/16 16:39 (Gentamicin (Dialysis) Inj) 20 mg UNSCH PRN IV 12/06/16 12:15 12/14/16 16:39 (Zofran Inj) 4 mg UNSCH PRN IV 12/06/16 12:15 (Tylenol) 650 mg UNSCH PRN PO 12/06/16 12:15 12/14/16 07:54 (Benadryl) 25 mg UNSCH PRN PO 12/06/16 12:15 (Nitrostat Sl) 0.4 mg UNSCH PRN SL 12/06/16 12:15 (Catapres) 0.1 mg UNSCH PRN PO 12/06/16 12:15 12/19/16 06:27 (Epogen Inj) 10,000 units UNSCH PRN IV 12/06/16 12:15 12/14/16 16:39 (Gelfoam 12 Mm/7 Mm Top) 1 foam UNSCH PRN TOP 12/06/16 12:15 (Megace Liq) 400 mg DAILY PO 12/08/16 09:00 12/27/16 09:09 (Heparin Inj) 5,000 units Q12HR SQ 12/08/16 21:00 12/27/16 21:25 (Dilantin Liq) 300 mg Q12HR PO 12/08/16 21:00 12/27/16 21:25 (Flonase Evan Spr) 2 spray DAILY EACH NARE 12/18/16 12:00 12/27/16 09:20 Calcium Acetate 667 mg 667 mg TID PO 12/20/16 09:00 12/27/16 17:33 (1/2 NS 1000 ml Inj) 1,000 ml @ 65 mls/hr [id number] IV 12/20/16 10:00 Hold 12/24/16 21:10 (Protonix) 40 mg DAILY PO 12/25/16 10:30 12/27/16 09:11 Miscellaneous Information Patient in critical care unit? Ass... Q361D .XX 12/25/16 22:30 12/25/16 22:30 (Chlorhexidine 2% Cloth) 3 pack DAILY@04 TOPICAL 12/26/16 04:00 12/30/16 04:01 12/27/16 04:00 (Chlorhexidine 2% Cloth) 3 pack UNSCH PRN TOPICAL 12/25/16 22:30 12/30/16 22:25 (Cardura) 10 mg HS PO 12/26/16 21:00 12/27/16 21:24 (Procardia Xl) 90 mg DAILY PO 12/27/16 09:00 12/27/16 09:21 (Pill Splitter) 1 ea UNSCH PRN OTHER 12/26/16 19:00 12/27/16 10:33 Urinary Catheter: No Date of Insertion: Nov 15, 2016 Vascular Central Line Catheter: No A/P Assessment and Plan 1. Squamous cell carcinoma of the lung: Status post stent placement in the left main bronchus at [facility]. Patient required to be intubated and mechanically ventilated, status post extubation. Patient had a complicated stay with a stent in the left main bronchus. Oncology consulted. Radiation oncology consulted and radiation therapy was recommended. Patient underwent radiation simulation on 12/23/16. XRT will possibly next week to plan and then the patient will need approximately over 6 weeks of treatment. 2. Acute kidney injury: Active renal failure ATN due to PEA arrest. Patient required some treatments with hemodialysis which has been held, last treatment was on 12/17/16. Currently on IV fluids as per renal recommendations and renal function is improving. Lasix on hold since patient has a good urine output. IV Fluids held. sp IV Bumex with excellent urine output. Continue to monitor BUN/creatinine, strict I's and O's and avoid nephrotoxic medications. Creatinine continue to trend down. 4.40 - 4.22 3. Hypertension: Blood pressure uncontrolled versus only with elevated blood pressure into the systolic 160s. Patient is on Procardia 60 mg po daily which I will increase to 90 mg po daily. Patient also on Cardura 8 mg po at HS which I will increase to 10 mg. BP slightly improved. Continue clonidine prn. 4. Hypokalemia:K 3.5. Continue to monitor bmp and replace as needed 5. BPH: On doxazosin. 6. Bladder mass: Neurology consulted. For cystoscopy when the patient stronger in the future. Neurology will need to be consulted if patient optimal condition for surgery/procedure which will require anesthesia. 7. Acute respiratory failure: Patient again had an episode of oxygen desaturation. Chest x-ray reviewed by me shows complete whiteout of the left lung and some pulmonary vascular congestion on the right. I will hold IV fluids and give IV Bumex. Continue DuoNeb as needed. Echocardiogram 55-60%. Continue supplemental O2 to keep o2 sat > 92%. 8. Klebsiella pneumonia: Bronchus sputum positive for Klebsiella, treated at [facility] and finish course of antibiotics as per previous records. Blood cultures was negative. 9. Iron deficiency anemia: Low iron stores. Patient is status post EGD which found gastritis, duodenitis and esophagitis being treated with PPI. 10. Severe protein calorie malnutrition: Albumin 1.7 on admission. Patient is status post PEG placement on 12/11/16. Status post IV iron treatment. Pt tolerating Nocturnal TF'ing 6p to 6a. TF'ing held, for Dilantin dosing(one hour before and one hour after dosing). Continue Nepro oral supplement bid. Continue tube feedings with tray. 11. Left upper extremity superficial thrombophlebitis: Much improved. Treat with warm compresses. 12. UTI: Culture grew Nisa. Status post treatment. 13. Seizure disorder: Seem stable. Tinea Dilantin. Seizure precautions. 14. DVT prophylaxis: SCDs, heparin subcutaneously.issac SQ. 15. GI Prophylaxis: I will add a PPI. 16. PT/OT daily - Will need therapy at rehab upon discharge. 17. Poor appetite: Better on Megace. Continue. Patient on 19. Acute hypercapnic respiratory failure: Patient found to be lethargic yesterday, ABG showed a pH of 7.17, PCO2 of 82 and PO2 of 141. The patient was placed on BiPAP and after some time responded with improvement of his mentation and PCO2. Patient is currently off BiPAP and the patient's respiratory failure is much improved. Continue supplemental oxygen to keep oxygen saturation more than 92%. Pulmonology consulted. Discharge Planning ok to transfer to the medical floor. Continue to monitor in the medical floor. Diego Sherwood MD Dec 27, 2016 19:41
[2016-12-27] MEDS: DOXAZOSIN MESYLATE 4 MG TAB PO SCH (21:24)
[2016-12-27] MEDS: ATORVASTATIN 40 MG TAB PO SCH (21:25)
[2016-12-28] VITALS (10 sets, daily range): BP systolic 124–165; BP diastolic 62–80; PULSE 83–94; RESP 18–20; TEMP 97.6–98.9; O2SAT 96–99
[2016-12-28] MEDS: CHLORHEXIDINE GLUCONATE 2 % 1 PACK (2 CLOTHS)(taper/protocol) TOPICAL SCH (04:00)
[2016-12-28] MEDS: DOCUSATE SODIUM 100 MG CAP PO SCH ×2 (06:00→17:58)
[2016-12-28 08:13] LABS: HEMATOCRIT 25.8 % (39.0-51.0); MEAN CELL VOLUME 87.5 FL (80.0-100.0); MEAN CORPUSCULAR HEMOGLOBIN 29.2 PG (27.0-34.0); MEAN CORPUSCULAR HGB CONC 33.3 % (32.0-36.0); PLATELET COUNT 441 TH/MM3 (150-450); RED BLOOD COUNT 2.95 MIL/MM3 (4.50-5.90); RED CELL DISTRIBUTION WIDTH 15.5 % (11.6-17.2); REVIEW FLAG FINAL; WHITE BLOOD COUNT 13.6 TH/MM3 (4.0-11.0)
[2016-12-28 08:50] LABS: BICARBONATE 29.2 MEQ/L (21.0-32.0); POTASSIUM 3.6 MEQ/L (3.5-5.1)
[2016-12-28] MEDS: FLUTICASONE PROPIONATE 50 MCG/ACT 16 GM NASAL SPRAY EACH NARE SCH (09:00)
[2016-12-28] MEDS: SODIUM CHLORIDE 0.9% FLUSH 5 ML FLUSH FLUSH SCH ×2 (09:00→20:10)
[2016-12-28] MEDS ORDERED: DOXAZOSIN MESYLATE 2 MG TAB PO SCH (10:00)
[2016-12-28] MEDS: FERROUS SULFATE 300 MG /5ML UDC PO SCH (11:23)
[2016-12-28] MEDS: NIFEdipine 90 MG SUSTAINED RELEASE TAB PO SCH (11:25)
[2016-12-28] MEDS: MEGESTROL ACETATE SUSP 400 MG/10 ML CUP PO SCH (11:25)
[2016-12-28] MEDS: PHENYTOIN SUSP 100 MG/4 ML CUP PO SCH ×2 (11:25→20:09)
[2016-12-28] MEDS: PANTOPRAZOLE SOD 40 MG DELAYED RELEASE TAB PO SCH (11:25)
[2016-12-28] MEDS: CALCIUM ACETATE 667 MG CAP PO SCH ×3 (11:25→17:58)
[2016-12-28] MEDS: HEPARIN SODIUM - SQ 10,000 UNITS/ML VIAL SQ SCH ×2 (11:30→20:09)
--- NOTE | 2016-12-28 12:36 | HHI.NPPN ---
Subjective General Problems: Anemia, Edema Renal Failure: Acute History of Present Illness 71 y/o male pt. [place] [facility] [place] [facility] with renal failure from possible ATN. Additional Remarks no acute complaints Review of Systems General Constitutional: Fever, Fatigue Objective Data Data 12/27/16 12/28/16 19:00 07:00 Intake Total 360 ml 1270 ml Output Total 1075 ml 375 ml Balance -715 ml 895 ml Intake Oral 360 ml 1270 ml Output Urine Total 1075 ml 375 ml Vital Signs Date Time Temp Pulse Resp B/P Pulse Ox O2 Delivery O2 Flow Rate FiO2 12/28/16 10:50 Nasal Cannula 2.00 12/28/16 10:00 97 Nasal Cannula 3.00 12/28/16 08:00 98.9 92 20 165/80 98 12/28/16 04:00 97.6 84 18 149/71 97 12/28/16 01:39 96 BiPAP 35 12/28/16 01:39 96 35 12/28/16 00:00 97.6 83 18 159/77 99 12/27/16 21:35 98 35 12/27/16 21:24 90 12/27/16 21:24 Nasal Cannula 3.00 35 12/27/16 21:07 95 35 12/27/16 20:00 98.8 82 19 151/69 98 12/27/16 18:11 96 Nasal Cannula 3.00 12/27/16 17:27 98.0 87 20 130/58 96 12/27/16 13:37 98.7 85 20 165/77 95 -: 12/28/16 0802 12/28/16 0802 Tubes & Lines: Lipscomb Tubes & Lines Comment PEG, Physical Exam General Appearance: Well Developed, No Acute Distress, Comfortable Eyes Eye Exam: Pupils Equal, Pupils Reactive Throat Throat Exam: Oral Mucosa Sarah Ann & Moist Pulmonary Resp Exam: Breath Sounds Equal, No Distress, Decreased Bases, Diminished Breath Sounds Cardiology CV Exam: Regular, Normal Sinus Rhythm, Good Perfusion, Murmur Gastrointestinal/Abdomen GI Exam: Soft, Non-Tender, Bowel Sounds Present, Positive Bowel Movement Genitourinary Exam: Clear Urine Musculoskeletal MS Exam: Joints Intact, Atrophy, Unable to Ambulate Integumentary Skin Exam: Clear, Warm, Dry, Intact Extremeties Extremities Exam: No Edema, Pedal Pulses Palpable Neurologic Neuro Exam: Alert, Awake, Oriented, Speech Clear, Moving All Extremities Psychiatric Psych Exam: Appropriate Responses Assessment/Plan Discussed Condition With: Patient, Son Assessment Summary: TODD/Acute Renal Failure, Acute Tubular Necrosis Electrolyte Assessment: Hypokalemia Problem List: (1) Acute renal failure Plan: He had creatinine 0.77 in October Renal failure ATN due to PEA arrest HD has been held, last treatment 12/17 Creatinine slowly improving (4.2 -> 4.0), BUN remains elevated 1.4 L UOP / 24 hours Apparent early renal recovery. Hold HD today May consider to remove dialysis catheter next week if renal function stable. off IVF avoid nephrotoxins (2) Bronchiolar obstruction Plan: s/p stent placement, dx of squamous cell carcinoma med oncology following (3) Mass of left lung Plan: oncology has evaluated, appreciate their recommendations he is unstable for systemic treatment at this time to have radiation therapy chest xray is worse (4) Acute respiratory failure Plan: extubated, on nasal cannula continuous on tube feeding at night with oral nutrition s/p PEG placement; swallowing has improved but oral intake/caloric intake is not adequate speech therapy following (5) Anemia Plan: Hb stable hematology/oncology following previously on epogen with HD, given venofer at admission Hemoccult positive , cannot tolerate bowel prep for colonoscopy (6) Bladder mass Plan: urology following, bladder US report noted he will need cystoscopy with TURBT when more stable (7) UTI (urinary tract infection) Plan: resolved, off antibiotics Problem Qualifiers (1) UTI (urinary tract infection): Patrick Allen MD Dec 28, 2016 12:36
--- NOTE | 2016-12-28 12:51 | HHI.PR ---
Subjective Remarks Patient is on 2L oxygen with good sats. Afebrile. Objective Vital Signs Vital Signs Date Time Temp Pulse Resp B/P Pulse Ox O2 Delivery O2 Flow Rate FiO2 12/28/16 10:50 Nasal Cannula 2.00 12/28/16 10:00 97 Nasal Cannula 3.00 12/28/16 08:00 98.9 92 20 165/80 98 12/28/16 04:00 97.6 84 18 149/71 97 12/28/16 01:39 96 BiPAP 35 12/28/16 01:39 96 35 12/28/16 00:00 97.6 83 18 159/77 99 12/27/16 21:35 98 35 12/27/16 21:24 90 12/27/16 21:24 Nasal Cannula 3.00 35 12/27/16 21:07 95 35 12/27/16 20:00 98.8 82 19 151/69 98 12/27/16 18:11 96 Nasal Cannula 3.00 12/27/16 17:27 98.0 87 20 130/58 96 12/27/16 13:37 98.7 85 20 165/77 95 I/O 12/27/16 12/27/16 12/27/16 12/28/16 12/28/16 12/28/16 07:00 15:00 23:00 07:00 15:00 23:00 Intake Total 0 ml 360 ml 480 ml 790 ml Output Total 800 ml 1075 ml 375 ml Balance -800 ml -715 ml 105 ml 790 ml Intake Oral 0 ml 360 ml 480 ml 790 ml Output Urine Total 800 ml 1075 ml 375 ml # Bowel Movements 0 Result Diagram: 12/28/16 0802 12/28/16 0802 Other Results Laboratory Tests Test 12/28/16 08:02 White Blood Count 13.6 TH/MM3 Red Blood Count 2.95 MIL/MM3 Hemoglobin 8.6 GM/DL Hematocrit 25.8 % Mean Corpuscular Volume 87.5 FL Mean Corpuscular Hemoglobin 29.2 PG Mean Corpuscular Hemoglobin 33.3 % Concent Red Cell Distribution Width 15.5 % Platelet Count 441 TH/MM3 Mean Platelet Volume 6.7 FL Sodium Level 139 MEQ/L Potassium Level 3.6 MEQ/L Chloride Level 99 MEQ/L Carbon Dioxide Level 29.2 MEQ/L Anion Gap 11 MEQ/L Blood Urea Nitrogen 121 MG/DL Creatinine 4.06 MG/DL Estimat Glomerular Filtration 15 ML/MIN Rate Random Glucose 125 MG/DL Calcium Level 8.1 MG/DL Phosphorus Level 3.8 MG/DL Albumin 2.1 GM/DL Objective Remarks GENERAL: Patient is lying in bed in NAD SKIN: Warm and dry. HEAD: Normocephalic. EYES: No scleral icterus. No injection or drainage. NECK: Supple, trachea midline. No JVD or lymphadenopathy. CARDIOVASCULAR: Regular rate and rhythm without murmurs, gallops, or rubs. RESPIRATORY: Breath sounds equal bilaterally. No accessory muscle use. GASTROINTESTINAL: Abdomen soft, non-tender, nondistended. MUSCULOSKELETAL: No cyanosis, or edema. BACK: Nontender without obvious deformity. No CVA tenderness. Neuro: Awake and alert A/P Assessment and Plan 1)Resp [place] 2)[id number] of left hemithorax- Unchanged 3)Squamous cell ca involving left main stem s/p endobronchial stent placement s/p XTR 4)s/p Hemoptysis 5)ARF 5)Anemia 6)Leukocytosis 7)HTN 8)UTI Plan Continue with oxygen keep sat >92% Bronchodilators (DuoNeb) NIPPV PRN for resp distress S/p stent placement in the left main bronchus at [facility]. Patient underwent radiation simulation on 12/23/16. XRT will possibly start next week . Heme Onc is following Monitor renal function, avoid nephrotoxins, Renal is following. HD per renal. Continue treatment plan per primary team. Cherry Fuller MD Dec 28, 2016 12:51
--- NOTE | 2016-12-28 14:49 | HHI.PR ---
Subjective Remarks denies cp/sob denies fevers/chills no diarrhea creatinine keeps trending down Bp still elevated Objective Vitals Vital Signs Date Time Temp Pulse Resp B/P Pulse Ox O2 Delivery O2 Flow Rate FiO2 12/28/16 12:45 97.7 91 20 157/69 98 12/28/16 10:50 Nasal Cannula 2.00 12/28/16 10:00 97 Nasal Cannula 3.00 12/28/16 08:00 98.9 92 20 165/80 98 12/28/16 04:00 97.6 84 18 149/71 97 12/28/16 01:39 96 BiPAP 35 12/28/16 01:39 96 35 12/28/16 00:00 97.6 83 18 159/77 99 12/27/16 21:35 98 35 12/27/16 21:24 90 12/27/16 21:24 Nasal Cannula 3.00 35 12/27/16 21:07 95 35 12/27/16 20:00 98.8 82 19 151/69 98 12/27/16 18:11 96 Nasal Cannula 3.00 12/27/16 17:27 98.0 87 20 130/58 96 I/O 12/27/16 12/27/16 12/27/16 12/28/16 12/28/16 12/28/16 07:00 15:00 23:00 07:00 15:00 23:00 Intake Total 0 ml 360 ml 480 ml 790 ml Output Total 800 ml 1075 ml 375 ml Balance -800 ml -715 ml 105 ml 790 ml Intake Oral 0 ml 360 ml 480 ml 790 ml Output Urine Total 800 ml 1075 ml 375 ml # Bowel Movements 0 Result Diagram: 12/28/16 0802 12/28/16 0802 Imaging Last Impressions Chest X-Ray 12/25/16 0000 Signed Impressions: Service Date/Time: Sunday, December 25, 2016 08:59 - CONCLUSION: 1. Complete opacification of the left hemithorax unchanged from previous. 2. 4.5 cm masslike density on the right which appears to be fluid loculated in the fissure. This is decreased in size when compared to previous. 3. Dialysis catheter in good position. Patrick Shelton MD Upper Extremity Ultrasound 12/11/16 1506 Signed Impressions: Service Date/Time: Sunday, December 11, 2016 18:00 - CONCLUSION: Superficial thrombophlebitis, extensive edema and nonspecific fluid collections in the subcutaneous tissues. Shawn Reyes MD Head CT 12/11/16 0000 Signed Impressions: Service Date/Time: Sunday, December 11, 2016 20:00 - CONCLUSION: Slight atrophic and small vessel ischemic changes without any evidence for acute hemorrhage or mass effect. Shawn Reyes MD Renal Ultrasound 12/09/16 0000 Signed Impressions: Service Date/Time: Friday, December 09, 2016 15:16 - CONCLUSION: 1. 8.4 cm mass lesion at the base of the bladder. This may represent an intrinsic mass of the bladder versus a prominent anterior lobe of the prostate. 2. Otherwise, urinary bladder is partially decompressed with a Lipscomb catheter. 3. Both kidneys are sonographically normal. Roby Horta MD Objective Remarks GENERAL: This is a well-nourished, well-developed patient, in no apparent distress. CARDIOVASCULAR: Regular rate and regular rhythm without murmurs, gallops, or rubs. RESPIRATORY: Clear to auscultation on right side, left lung with decreased breath sounds. No wheezing, rhonchi or murmur auscultated. GASTROINTESTINAL: Abdomen soft, non-tender, nondistended. Normal, active bowel sounds. PEG c/d/i MUSCULOSKELETAL: Extremities without clubbing, cyanosis, or edema. NEURO: Alert & Oriented x4 to person, place, time, situation. Moves all ext x4 Procedures 12/11- EGD- esophagitis, gastritis, duodenitis PEG placement Medications and IVs Current Medications Medications (Trade) Dose Ordered Sig/Luis Carlos Route Start Time Stop Time Status Last Admin (NS Flush) 2 ml UNSCH PRN FLUSH 12/05/16 17:00 (NS Flush) 2 ml BID FLUSH 12/05/16 21:00 12/28/16 09:00 (Zofran Inj) 4 mg Q6H PRN IVP 12/05/16 18:00 (Dulcolax Supp) 10 mg DAILY PRN FL 12/05/16 18:00 (Colace) 100 mg Q12H PO 12/05/16 18:00 12/27/16 17:33 (Narcan Inj) 0.4 mg UNSCH PRN IV 12/05/16 17:00 (Ferrous Sulfate Liq) 300 mg DAILY PO 12/06/16 09:00 12/28/16 11:23 (Lipitor) 40 mg HS PO 12/05/16 21:00 12/27/16 21:25 (Lasix Liq) 40 mg DAILY TUBE 12/06/16 09:00 Hold 12/20/16 08:50 (Jacinda-Colace) 2 tab BID PRN PO 12/05/16 19:45 (Lactulose Liq) 30 ml TID PRN PO 12/05/16 19:45 Magnesium Hydroxide 30 ml 30 ml Q6H PRN PO 12/05/16 19:45 (NS 1000 ml Inj) 1,000 ml @ 0 mls/hr Q0M PRN IV 12/06/16 12:11 12/12/16 09:33 Heparin Sodium (Porcine) 8000 units 8,000 units UNSCH PRN IVF 12/06/16 12:15 Sodium Chloride 1,000 ml @ 200 mls/hr Q5H PRN IV 12/06/16 12:11 (NS 1000 ml Inj) 1,000 ml @ 0 mls/hr Q0M PRN IV 12/06/16 12:11 (Mannitol Inj) 12.5 gm UNSCH PRN IV 12/06/16 12:15 (Albumin 25% Inj) 25 gm UNSCH PRN IV 12/06/16 12:15 (NS Flush) 5 ml UNSCH PRN IVF 12/06/16 12:15 (Heparin Inj) UNSCH PRN .XX 12/06/16 12:15 12/14/16 16:39 (Gentamicin (Dialysis) Inj) 20 mg UNSCH PRN IV 12/06/16 12:15 12/14/16 16:39 (Zofran Inj) 4 mg UNSCH PRN IV 12/06/16 12:15 (Tylenol) 650 mg UNSCH PRN PO 12/06/16 12:15 12/14/16 07:54 (Benadryl) 25 mg UNSCH PRN PO 12/06/16 12:15 (Nitrostat Sl) 0.4 mg UNSCH PRN SL 12/06/16 12:15 (Catapres) 0.1 mg UNSCH PRN PO 12/06/16 12:15 12/19/16 06:27 (Epogen Inj) 10,000 units UNSCH PRN IV 12/06/16 12:15 12/14/16 16:39 (Gelfoam 12 Mm/7 Mm Top) 1 foam UNSCH PRN TOP 12/06/16 12:15 (Megace Liq) 400 mg DAILY PO 12/08/16 09:00 12/28/16 11:25 (Heparin Inj) 5,000 units Q12HR SQ 12/08/16 21:00 12/28/16 11:30 (Dilantin Liq) 300 mg Q12HR PO 12/08/16 21:00 12/28/16 11:25 (Flonase Evan Spr) 2 spray DAILY EACH NARE 12/18/16 12:00 12/28/16 09:00 Calcium Acetate 667 mg 667 mg TID PO 12/20/16 09:00 12/28/16 11:25 (1/2 NS 1000 ml Inj) 1,000 ml @ 65 mls/hr [id number] IV 12/20/16 10:00 Hold 12/24/16 21:10 (Protonix) 40 mg DAILY PO 12/25/16 10:30 12/28/16 11:25 Miscellaneous Information Patient in critical care unit? Ass... [id number] .XX 12/25/16 22:30 12/25/16 22:30 (Chlorhexidine 2% Cloth) 3 pack DAILY@04 TOPICAL 12/26/16 04:00 12/30/16 04:01 12/27/16 04:00 (Chlorhexidine 2% Cloth) 3 pack UNSCH PRN TOPICAL 12/25/16 22:30 12/30/16 22:25 (Cardura) 10 mg HS PO 12/26/16 21:00 12/27/16 21:24 (Procardia Xl) 90 mg DAILY PO 12/27/16 09:00 12/28/16 11:25 (Pill Splitter) 1 ea UNSCH PRN OTHER 12/26/16 19:00 12/27/16 10:33 (Cardura) 2 mg DAILY PO 12/28/16 10:00 12/28/16 11:33 Urinary Catheter: Yes Assessment to: Continue Date of Insertion: Nov 15, 2016 Vascular Central Line Catheter: No A/P Assessment and Plan 1. Squamous cell carcinoma of the lung: Status post stent placement in the left main bronchus at [facility]. Patient required to be intubated and mechanically ventilated, status post extubation. Patient had a complicated stay with a stent in the left main bronchus. Oncology consulted. Radiation oncology consulted and radiation therapy was recommended. Patient underwent radiation simulation on 12/23/16. XRT will possibly next week to plan and then the patient will need approximately over 6 weeks of treatment. 2. Acute kidney injury: Active renal failure ATN due to PEA arrest. Patient required some treatments with hemodialysis which has been held, last treatment was on 12/17/16. Currently on IV fluids as per renal recommendations and renal function is improving. Lasix on hold since patient has a good urine output. IV Fluids held. sp IV Bumex with excellent urine output. Continue to monitor BUN/creatinine, strict I's and O's and avoid nephrotoxic medications. Creatinine continue to trend down. 4.22 3. Hypertension: Blood pressure uncontrolled versus only with elevated blood pressure into the systolic 160s. Bp still elevated. continue procardia 90 mg by mouth daily. Continue Cardura 10 mg by mouth at at bedtime. Increase a.m. Cardura to 4 mg by mouth daily. BP slightly improved. Continue clonidine prn. 4. Hypokalemia: Resolved. Continue to monitor BMP and replace as needed. 5. BPH: On doxazosin. 6. Bladder mass: Neurology consulted. For cystoscopy when the patient stronger in the future. Neurology will need to be consulted if patient optimal condition for surgery/procedure which will require anesthesia. 7. Acute respiratory failure: Patient again had an episode of oxygen desaturation. Chest x-ray reviewed by me shows complete whiteout of the left lung and some pulmonary vascular congestion on the right. I will hold IV fluids and give IV Bumex. Continue DuoNeb as needed. Echocardiogram 55-60%. Continue supplemental O2 to keep o2 sat > 92%. 8. Klebsiella pneumonia: Bronchus sputum positive for Klebsiella, treated at [facility] and finish course of antibiotics as per previous records. Blood cultures was negative. 9. Iron deficiency anemia: Low iron stores. Patient is status post EGD which found gastritis, duodenitis and esophagitis being treated with PPI. 10. Severe protein calorie malnutrition: Albumin 1.7 on admission. Patient is status post PEG placement on 12/11/16. Status post IV iron treatment. Pt tolerating Nocturnal TF'ing 6p to 6a. TF'ing held, for Dilantin dosing(one hour before and one hour after dosing). Continue Nepro oral supplement bid. Continue tube feedings with tray. 11. Left upper extremity superficial thrombophlebitis: Much improved. Treat with warm compresses. 12. UTI: Culture grew Nisa. Status post treatment. 13. Seizure disorder: Seem stable. Tinea Dilantin. Seizure precautions. 14. DVT prophylaxis: SCDs, heparin subcutaneously.issac SQ. 15. GI Prophylaxis: I will add a PPI. 16. PT/OT daily - Will need therapy at rehab upon discharge. 17. Poor appetite: Better on Megace. Continue. Patient on . Acute hypercapnic respiratory failure: Patient found to be lethargic yesterday, ABG showed a pH of 7.17, PCO2 of 82 and PO2 of 141. The patient was placed on BiPAP and after some time responded with improvement of his mentation and PCO2. Patient is currently off BiPAP and the patient's respiratory failure is much improved. Continue supplemental oxygen to keep oxygen saturation more than 92%. Pulmonology consulted - recommendations appreciated. Discharge Planning Continue to monitor in the medical floor. Diego Sherwood MD Dec 28, 2016 14:49
[2016-12-28] MEDS: RESP: ALBUTEROL 2.5 MG/IPRATROPIUM 0.5 MG NEB (SCH) NEB ×2 (15:50→21:54)
[2016-12-28] MEDS: ATORVASTATIN 40 MG TAB PO SCH (20:09)
[2016-12-28] MEDS: DOXAZOSIN MESYLATE 4 MG TAB PO SCH (20:10)
[2016-12-29] VITALS (9 sets, daily range): BP systolic 135–152; BP diastolic 63–71; PULSE 87–94; RESP 18–20; TEMP 97.1–99.4; O2SAT 94–99
[2016-12-29] MEDS: RESP: ALBUTEROL 2.5 MG/IPRATROPIUM 0.5 MG NEB (SCH) NEB ×4 (03:26→22:32)
[2016-12-29] MEDS: CHLORHEXIDINE GLUCONATE 2 % 1 PACK (2 CLOTHS)(taper/protocol) TOPICAL SCH (04:00)
[2016-12-29] MEDS: DOCUSATE SODIUM 100 MG CAP PO SCH ×2 (06:13→18:06)
[2016-12-29 06:28] LABS: BICARBONATE 27.4 MEQ/L (21.0-32.0); POTASSIUM 3.4 MEQ/L (3.5-5.1)
[2016-12-29 06:32] LABS: AUTOMATED NEUTROPHIL # 9.1 TH/MM3 (1.8-7.7); BASOPHIL # 0.1 TH/MM3 (0-0.2); BASOPHIL % 0.7 % (0.0-2.0); EOSINOPHIL # 1.2 TH/MM3 (0-0.4); EOSINOPHIL % 9.7 % (0.0-4.0); HEMATOCRIT 25.7 % (39.0-51.0); HEMO FLAGS DIFF FINAL; LYMPH % 5.3 % (9.0-44.0); LYMPHOCYTE # 0.6 TH/MM3 (1.0-4.8); MEAN CELL VOLUME 96.3 FL (80.0-100.0); MEAN CORPUSCULAR HEMOGLOBIN 32.7 PG (27.0-34.0); MONO % 8.8 % (0.0-8.0); NEUT % 75.5 % (16.0-70.0); PLATELET COUNT 429 TH/MM3 (150-450); RED BLOOD COUNT 2.67 MIL/MM3 (4.50-5.90); RED CELL DISTRIBUTION WIDTH 15.8 % (11.6-17.2); WHITE BLOOD COUNT 12.1 TH/MM3 (4.0-11.0)
[2016-12-29] MEDS: MEGESTROL ACETATE SUSP 400 MG/10 ML CUP PO SCH (08:06)
[2016-12-29] MEDS: FERROUS SULFATE 300 MG /5ML UDC PO SCH (08:06)
[2016-12-29] MEDS: CALCIUM ACETATE 667 MG CAP PO SCH ×3 (08:07→18:06)
[2016-12-29] MEDS: PHENYTOIN SUSP 100 MG/4 ML CUP PO SCH ×2 (08:07→19:58)
[2016-12-29] MEDS: NIFEdipine 90 MG SUSTAINED RELEASE TAB PO SCH (08:07)
[2016-12-29] MEDS: HEPARIN SODIUM - SQ 10,000 UNITS/ML VIAL SQ SCH ×2 (08:07→19:58)
[2016-12-29] MEDS: PANTOPRAZOLE SOD 40 MG DELAYED RELEASE TAB PO SCH (08:08)
[2016-12-29] MEDS: DOXAZOSIN MESYLATE 4 MG TAB PO SCH ×2 (08:08→19:59)
[2016-12-29] MEDS: SODIUM CHLORIDE 0.9% FLUSH 5 ML FLUSH FLUSH SCH ×2 (08:12→19:59)
[2016-12-29] MEDS: FLUTICASONE PROPIONATE 50 MCG/ACT 16 GM NASAL SPRAY EACH NARE SCH (08:14)
[2016-12-29] MEDS ORDERED: DOXAZOSIN MESYLATE 2 MG TAB PO SCH (09:00)
--- NOTE | 2016-12-29 09:13 | HHI.NPPN ---
Subjective General Problems: Anemia, Edema Renal Failure: Acute History of Present Illness 71 y/o male pt. Transferred to [facility] from [facility] with renal failure from possible ATN. Additional Remarks No acute complaints Review of Systems General Constitutional: Fever, Fatigue Objective Data Data 12/28/16 12/29/16 19:00 07:00 Intake Total 720 ml 960 ml Output Total 550 ml 1950 ml Balance 170 ml -990 ml Intake Oral 720 ml 960 ml Output Urine Total 550 ml 1950 ml Vital Signs Date Time Temp Pulse Resp B/P Pulse Ox O2 Delivery O2 Flow Rate FiO2 12/29/16 08:01 99 2.00 12/29/16 08:00 99.4 92 18 152/71 95 12/29/16 04:00 97.1 87 19 137/65 98 12/29/16 03:30 97 Nasal Cannula 2.00 12/29/16 00:00 97.3 92 18 137/63 95 12/28/16 22:12 98 35 12/28/16 21:55 97 Nasal Cannula 2.00 12/28/16 20:00 86 12/28/16 20:00 Nasal Cannula 2.00 12/28/16 20:00 86 12/28/16 20:00 98.4 91 19 124/62 96 12/28/16 16:00 98.6 94 18 135/68 96 12/28/16 12:45 97.7 91 20 157/69 98 12/28/16 10:50 Nasal Cannula 2.00 12/28/16 10:00 97 Nasal Cannula 3.00 -: 12/29/16 0548 12/29/16 0548 Tubes & Lines: Lipscomb Tubes & Lines Comment PEG, Physical Exam General Appearance: Well Developed, No Acute Distress, Comfortable Eyes Eye Exam: Pupils Equal, Pupils Reactive Throat Throat Exam: Oral Mucosa [place] & Moist Pulmonary Resp Exam: Breath Sounds Equal, No Distress, Decreased Bases, Diminished Breath Sounds Cardiology CV Exam: Regular, Normal Sinus Rhythm, Good Perfusion, Murmur Gastrointestinal/Abdomen GI Exam: Soft, Non-Tender, Bowel Sounds Present, Positive Bowel Movement Genitourinary Exam: Clear Urine Musculoskeletal MS Exam: Joints Intact, Atrophy, Unable to Ambulate Integumentary Skin Exam: Clear, Warm, Dry, Intact Extremeties Extremities Exam: No Edema, Pedal Pulses Palpable Neurologic Neuro Exam: Alert, Awake, Oriented, Speech Clear, Moving All Extremities Psychiatric Psych Exam: Appropriate Responses Assessment/Plan Discussed Condition With: Patient, Son Assessment Summary: TODD/Acute Renal Failure, Acute Tubular Necrosis Electrolyte Assessment: Hypokalemia Problem List: (1) Acute renal failure Plan: He had creatinine 0.77 in October Renal failure ATN due to PEA arrest HD has been held, last treatment 12/17 Creatinine slowly improving (4.2 -> 4.0 ->3.8), BUN remains elevated 2.5 L UOP / 24 hours Apparent early renal recovery. Continue to hold HD May consider to remove dialysis catheter next week if renal function stable. off IVF avoid nephrotoxins (2) Bronchiolar obstruction Plan: s/p stent placement, dx of squamous cell carcinoma med oncology following (3) Mass of left lung Plan: oncology has evaluated, appreciate their recommendations he is unstable for systemic treatment at this time to have radiation therapy chest xray is worse (4) Acute respiratory failure Plan: extubated, on nasal cannula continuous speech therapy following (5) Anemia Plan: Hb stable hematology/oncology following previously on epogen with HD, given venofer at admission Hemoccult positive , cannot tolerate bowel prep for colonoscopy (6) Bladder mass Plan: urology following, bladder US report noted he will need cystoscopy with TURBT when more stable (7) UTI (urinary tract infection) Plan: resolved, off antibiotics Problem Qualifiers (1) UTI (urinary tract infection): Patrick Allen MD Dec 29, 2016 09:13
--- NOTE | 2016-12-29 09:46 | HHI.PR ---
Subjective Remarks denies cp/sob denies fevers/chills stable vital signs Objective Vitals Vital Signs Date Time Temp Pulse Resp B/P Pulse Ox O2 Delivery O2 Flow Rate FiO2 12/29/16 09:21 Nasal Cannula 2.00 35 12/29/16 08:01 99 2.00 12/29/16 08:00 99.4 92 18 152/71 95 12/29/16 04:00 97.1 87 19 137/65 98 12/29/16 03:30 97 Nasal Cannula 2.00 12/29/16 00:00 97.3 92 18 137/63 95 12/28/16 22:12 98 35 12/28/16 21:55 97 Nasal Cannula 2.00 12/28/16 20:00 86 12/28/16 20:00 Nasal Cannula 2.00 12/28/16 20:00 86 12/28/16 20:00 98.4 91 19 124/62 96 12/28/16 16:00 98.6 94 18 135/68 96 12/28/16 12:45 97.7 91 20 157/69 98 12/28/16 10:50 Nasal Cannula 2.00 12/28/16 10:00 97 Nasal Cannula 3.00 I/O 12/28/16 12/28/16 12/28/16 12/29/16 12/29/16 12/29/16 07:00 15:00 23:00 07:00 15:00 23:00 Intake Total 790 ml 720 ml 480 ml 480 ml 1037 ml Output Total 550 ml 1100 ml 850 ml Balance 790 ml 170 ml -620 ml -370 ml 1037 ml Intake Oral 790 ml 720 ml 480 ml 480 ml Tube Feeding 1037 ml Output Urine Total 550 ml 1100 ml 850 ml Result Diagram: 12/29/16 0548 12/29/16 0548 Objective Remarks GENERAL: This is a well-nourished, well-developed patient, in no apparent distress. CARDIOVASCULAR: Regular rate and regular rhythm without murmurs, gallops, or rubs. RESPIRATORY: Clear to auscultation on right side, left lung with decreased breath sounds. No wheezing, rhonchi or murmur auscultated. GASTROINTESTINAL: Abdomen soft, non-tender, nondistended. Normal, active bowel sounds. PEG c/d/i MUSCULOSKELETAL: Extremities without clubbing, cyanosis, or edema. NEURO: Alert & Oriented x4 to person, place, time, situation. Moves all ext x4 Procedures 12/11- EGD- esophagitis, gastritis, duodenitis PEG placement Date of Insertion: Nov 15, 2016 A/P Assessment and Plan 1. Squamous cell carcinoma of the lung: Status post stent placement in the left main bronchus at [facility]. Patient required to be intubated and mechanically ventilated, status post extubation. Patient had a complicated stay with a stent in the left main bronchus. Oncology consulted. Radiation oncology consulted and radiation therapy was recommended. Patient underwent radiation simulation on 12/23/16. XRT will possibly next week to plan and then the patient will need approximately over 6 weeks of treatment. 2. Acute kidney injury: Active renal failure ATN due to PEA arrest. Patient required some treatments with hemodialysis which has been held, last treatment was on 12/17/16. Currently on IV fluids as per renal recommendations and renal function is improving. Lasix on hold since patient has a good urine output. IV Fluids held. sp IV Bumex with excellent urine output. Continue to monitor BUN/creatinine, strict I's and O's and avoid nephrotoxic medications. Creatinine continue to trend down. 4.22 3. Hypertension: Blood pressure uncontrolled versus only with elevated blood pressure into the systolic 160s. Bp still elevated. continue procardia 90 mg by mouth daily. Continue Cardura 10 mg by mouth at at bedtime. Increase a.m. Cardura to 4 mg by mouth daily. BP slightly improved. Continue clonidine prn. 4. Hypokalemia: Resolved. Continue to monitor BMP and replace as needed. 5. BPH: On doxazosin. 6. Bladder mass: Neurology consulted. For cystoscopy when the patient stronger in the future. Neurology will need to be consulted if patient optimal condition for surgery/procedure which will require anesthesia. 7. Acute respiratory failure: Patient again had an episode of oxygen desaturation. Chest x-ray reviewed by me shows complete whiteout of the left lung and some pulmonary vascular congestion on the right. I will hold IV fluids and give IV Bumex. Continue DuoNeb as needed. Echocardiogram 55-60%. Continue supplemental O2 to keep o2 sat > 92%. 8. Klebsiella pneumonia: Bronchus sputum positive for Klebsiella, treated at [facility] and finish course of antibiotics as per previous records. Blood cultures was negative. 9. Iron deficiency anemia: Low iron stores. Patient is status post EGD which found gastritis, duodenitis and esophagitis being treated with PPI. 10. Severe protein calorie malnutrition: Albumin 1.7 on admission. Patient is status post PEG placement on 12/11/16. Status post IV iron treatment. Pt tolerating Nocturnal TF'ing 6p to 6a. TF'ing held, for Dilantin dosing(one hour before and one hour after dosing). Continue Nepro oral supplement bid. Continue tube feedings with tray. 11. Left upper extremity superficial thrombophlebitis: Much improved. Treat with warm compresses. 12. UTI: Culture grew Nisa. Status post treatment. 13. Seizure disorder: Seem stable. Tinea Dilantin. Seizure precautions. 14. DVT prophylaxis: SCDs, heparin subcutaneously.issac SQ. 15. GI Prophylaxis: I will add a PPI. 16. PT/OT daily - Will need therapy at rehab upon discharge. 17. Poor appetite: Better on Megace. Continue. Patient on . Acute hypercapnic respiratory failure: Patient found to be lethargic yesterday, ABG showed a pH of 7.17, PCO2 of 82 and PO2 of 141. The patient was placed on BiPAP and after some time responded with improvement of his mentation and PCO2. Patient is currently off BiPAP and the patient's respiratory failure is much improved. Continue supplemental oxygen to keep oxygen saturation more than 92%. Pulmonology consulted - recommendations appreciated. Discharge Planning Continue to monitor in the medical floor. Diego Sherwood MD Dec 29, 2016 09:45
[2016-12-29] MEDS ORDERED: POTASSIUM CHLORIDE 20 MEQ CONTROLLED RELEASE TAB PO ONE (10:00)
--- NOTE | 2016-12-29 10:29 | HHI.PR ---
Subjective Remarks denies cp/sob denies diarrhea, abdominal pain or nausea denies fevers/chills bp better Objective Vitals Vital Signs Date Time Temp Pulse Resp B/P Pulse Ox O2 Delivery O2 Flow Rate FiO2 12/29/16 09:21 Nasal Cannula 2.00 35 12/29/16 08:01 99 2.00 12/29/16 08:00 99.4 92 18 152/71 95 12/29/16 04:00 97.1 87 19 137/65 98 12/29/16 03:30 97 Nasal Cannula 2.00 12/29/16 00:00 97.3 92 18 137/63 95 12/28/16 22:12 98 35 12/28/16 21:55 97 Nasal Cannula 2.00 12/28/16 20:00 86 12/28/16 20:00 Nasal Cannula 2.00 12/28/16 20:00 86 12/28/16 20:00 98.4 91 19 124/62 96 12/28/16 16:00 98.6 94 18 135/68 96 12/28/16 12:45 97.7 91 20 157/69 98 12/28/16 10:50 Nasal Cannula 2.00 I/O 12/28/16 12/28/16 12/28/16 12/29/16 12/29/16 12/29/16 07:00 15:00 23:00 07:00 15:00 23:00 Intake Total 790 ml 720 ml 480 ml 480 ml 1037 ml Output Total 550 ml 1100 ml 850 ml Balance 790 ml 170 ml -620 ml -370 ml 1037 ml Intake Oral 790 ml 720 ml 480 ml 480 ml Tube Feeding 1037 ml Output Urine Total 550 ml 1100 ml 850 ml Result Diagram: 12/29/16 0548 12/29/16 0548 Imaging Last Impressions Chest X-Ray 12/25/16 0000 Signed Impressions: Service Date/Time: Sunday, December 25, 2016 08:59 - CONCLUSION: 1. Complete opacification of the left hemithorax unchanged from previous. 2. 4.5 cm masslike density on the right which appears to be fluid loculated in the fissure. This is decreased in size when compared to previous. 3. Dialysis catheter in good position. Patrick Shelton MD Upper Extremity Ultrasound 12/11/16 1506 Signed Impressions: Service Date/Time: Sunday, December 11, 2016 18:00 - CONCLUSION: Superficial thrombophlebitis, extensive edema and nonspecific fluid collections in the subcutaneous tissues. Shawn Reyes MD Head CT 12/11/16 0000 Signed Impressions: Service Date/Time: Sunday, December 11, 2016 20:00 - CONCLUSION: Slight atrophic and small vessel ischemic changes without any evidence for acute hemorrhage or mass effect. Shawn Reyes MD Renal Ultrasound 12/09/16 0000 Signed Impressions: Service Date/Time: Friday, December 09, 2016 15:16 - CONCLUSION: 1. 8.4 cm mass lesion at the base of the bladder. This may represent an intrinsic mass of the bladder versus a prominent anterior lobe of the prostate. 2. Otherwise, urinary bladder is partially decompressed with a Lipscomb catheter. 3. Both kidneys are sonographically normal. Roby Horta MD Objective Remarks GENERAL: This is a well-nourished, well-developed patient, in no apparent distress. CARDIOVASCULAR: Regular rate and regular rhythm without murmurs, gallops, or rubs. RESPIRATORY: Clear to auscultation on right side, left lung with decreased breath sounds. No wheezing, rhonchi or murmur auscultated. GASTROINTESTINAL: Abdomen soft, non-tender, nondistended. Normal, active bowel sounds. PEG c/d/i MUSCULOSKELETAL: Extremities without clubbing, cyanosis, or edema. NEURO: Alert & Oriented x4 to person, place, time, situation. Moves all ext x4 Procedures 12/11- EGD- esophagitis, gastritis, duodenitis PEG placement Medications and IVs Current Medications Medications (Trade) Dose Ordered Sig/Luis Carlos Route Start Time Stop Time Status Last Admin (NS Flush) 2 ml UNSCH PRN FLUSH 12/05/16 17:00 (NS Flush) 2 ml BID FLUSH 12/05/16 21:00 12/29/16 08:12 (Zofran Inj) 4 mg Q6H PRN IVP 12/05/16 18:00 (Dulcolax Supp) 10 mg DAILY PRN [place] 12/05/16 18:00 (Colace) 100 mg Q12H PO 12/05/16 18:00 12/29/16 06:13 (Narcan Inj) 0.4 mg UNSCH PRN IV 12/05/16 17:00 (Ferrous Sulfate Liq) 300 mg DAILY PO 12/06/16 09:00 12/29/16 08:06 (Lipitor) 40 mg HS PO 12/05/16 21:00 12/28/16 20:09 (Lasix Liq) 40 mg DAILY TUBE 12/06/16 09:00 Hold 12/20/16 08:50 (Jacinda-Colace) 2 tab BID PRN PO 12/05/16 19:45 (Lactulose Liq) 30 ml TID PRN PO 12/05/16 19:45 Magnesium Hydroxide 30 ml 30 ml Q6H PRN PO 12/05/16 19:45 (NS 1000 ml Inj) 1,000 ml @ 0 mls/hr Q0M PRN IV 12/06/16 12:11 12/12/16 09:33 Heparin Sodium (Porcine) 8000 units 8,000 units UNSCH PRN IVF 12/06/16 12:15 Sodium Chloride 1,000 ml @ 200 mls/hr Q5H PRN IV 12/06/16 12:11 (NS 1000 ml Inj) 1,000 ml @ 0 mls/hr Q0M PRN IV 12/06/16 12:11 (Mannitol Inj) 12.5 gm UNSCH PRN IV 12/06/16 12:15 (Albumin 25% Inj) 25 gm UNSCH PRN IV 12/06/16 12:15 (NS Flush) 5 ml UNSCH PRN IVF 12/06/16 12:15 (Heparin Inj) UNSCH PRN .XX 12/06/16 12:15 12/14/16 16:39 (Gentamicin (Dialysis) Inj) 20 mg UNSCH PRN IV 12/06/16 12:15 12/14/16 16:39 (Zofran Inj) 4 mg UNSCH PRN IV 12/06/16 12:15 (Tylenol) 650 mg UNSCH PRN PO 12/06/16 12:15 12/14/16 07:54 (Benadryl) 25 mg UNSCH PRN PO 12/06/16 12:15 (Nitrostat Sl) 0.4 mg UNSCH PRN SL 12/06/16 12:15 (Catapres) 0.1 mg UNSCH PRN PO 12/06/16 12:15 12/19/16 06:27 (Epogen Inj) 10,000 units UNSCH PRN IV 12/06/16 12:15 12/14/16 16:39 (Gelfoam 12 Mm/7 Mm Top) 1 foam UNSCH PRN TOP 12/06/16 12:15 (Megace Liq) 400 mg DAILY PO 12/08/16 09:00 12/29/16 08:06 (Heparin Inj) 5,000 units Q12HR SQ 12/08/16 21:00 12/29/16 08:07 (Dilantin Liq) 300 mg Q12HR PO 12/08/16 21:00 12/29/16 08:07 (Flonase Evan Spr) 2 spray DAILY EACH NARE 12/18/16 12:00 12/28/16 09:00 Calcium Acetate 667 mg 667 mg TID PO 12/20/16 09:00 12/29/16 08:07 (1/2 NS 1000 ml Inj) 1,000 ml @ 65 mls/hr [id number] IV 12/20/16 10:00 Hold 12/24/16 21:10 (Protonix) 40 mg DAILY PO 12/25/16 10:30 12/29/16 08:08 Miscellaneous Information Patient in critical care unit? Ass... Q361D .XX 12/25/16 22:30 12/25/16 22:30 (Chlorhexidine 2% Cloth) 3 pack DAILY@04 TOPICAL 12/26/16 04:00 12/30/16 04:01 12/29/16 04:00 (Chlorhexidine 2% Cloth) 3 pack UNSCH PRN TOPICAL 12/25/16 22:30 12/30/16 22:25 (Cardura) 10 mg HS PO 12/26/16 21:00 12/28/16 20:10 (Procardia Xl) 90 mg DAILY PO 12/27/16 09:00 12/29/16 08:07 (Pill Splitter) 1 ea UNSCH PRN OTHER 12/26/16 19:00 12/27/16 10:33 (Cardura) 4 mg DAILY PO 12/29/16 09:00 12/29/16 08:08 Urinary Catheter: No Date of Insertion: Nov 15, 2016 A/P Assessment and Plan 1. Squamous cell carcinoma of the lung: Status post stent placement in the left main bronchus at [facility]. Patient required to be intubated and mechanically ventilated, status post extubation. Patient had a complicated stay with a stent in the left main bronchus. Oncology consulted. Radiation oncology consulted and radiation therapy was recommended. Patient underwent radiation simulation on 12/23/16. XRT will possibly next week to plan and then the patient will need approximately over 6 weeks of treatment. 2. Acute kidney injury: Active renal failure ATN due to PEA arrest. Patient required some treatments with hemodialysis which has been held, last treatment was on 12/17/16. Currently on IV fluids as per renal recommendations and renal function is improving. Lasix on hold since patient has a good urine output. IV Fluids held. sp IV Bumex with excellent urine output. Continue to monitor BUN/creatinine, strict I's and O's and avoid nephrotoxic medications. Creatinine continue to trend down. Good urine output. Continue to monitor bmp. 3. Hypertension: Blood pressure uncontrolled versus only with elevated blood pressure into the systolic 160s. BP much improved and seems to be stable. Continue procardia 90 mg daily. Continue Cardura 10 mg at bedtime and 4 mg in am. Continue clonidine prn. 4. Hypokalemia: K 3.4. Continue to monitor BMP and replace as needed. 5. BPH: On doxazosin. 6. Bladder mass: Neurology consulted. For cystoscopy when the patient stronger in the future. Neurology will need to be consulted if patient optimal condition for surgery/procedure which will require anesthesia. 7. Acute respiratory failure: Patient again had an episode of oxygen desaturation. Chest x-ray reviewed by me shows complete whiteout of the left lung and some pulmonary vascular congestion on the right. I will hold IV fluids and give IV Bumex. Continue DuoNeb as needed. Echocardiogram 55-60%. Continue supplemental O2 to keep o2 sat > 92%. 8. Klebsiella pneumonia: Bronchus sputum positive for Klebsiella, treated at [facility] and finish course of antibiotics as per previous records. Blood cultures was negative. 9. Iron deficiency anemia: Low iron stores. Patient is status post EGD which found gastritis, duodenitis and esophagitis being treated with PPI. 10. Severe protein calorie malnutrition: Albumin 1.7 on admission. Patient is status post PEG placement on 12/11/16. Status post IV iron treatment. Pt tolerating Nocturnal TF'ing 6p to 6a. TF'ing held, for Dilantin dosing(one hour before and one hour after dosing). Continue Nepro oral supplement bid. Continue tube feedings with tray. 11. Left upper extremity superficial thrombophlebitis: Much improved. Treat with warm compresses. 12. UTI: Culture grew Nisa. Status post treatment. 13. Seizure disorder: Seem stable. Continue Dilantin. Seizure precautions. 14. DVT prophylaxis: SCDs, heparin subcutaneously SQ. 15. GI Prophylaxis: I will add a PPI. 16. PT/OT daily - Will need therapy at rehab upon discharge. 17. Poor appetite: Better on Megace. Continue. 19. Acute hypercapnic respiratory failure: Patient found to be lethargic yesterday, ABG showed a pH of 7.17, PCO2 of 82 and PO2 of 141. The patient was placed on BiPAP and after some time responded with improvement of his mentation and PCO2. Patient is currently off BiPAP and the patient's respiratory failure is much improved. Continue supplemental oxygen to keep oxygen saturation more than 92%. Pulmonology consulted - recommendations appreciated. Respiratory failure resolved. Discharge Planning Continue to monitor in the medical floor. Diego Sherwood MD Dec 29, 2016 10:29
[2016-12-29] MEDS: ATORVASTATIN 40 MG TAB PO SCH (19:58)
[2016-12-30] VITALS (9 sets, daily range): BP systolic 119–157; BP diastolic 59–73; PULSE 70–93; RESP 16–21; TEMP 97–98.3; O2SAT 95–99
[2016-12-30] MEDS: CHLORHEXIDINE GLUCONATE 2 % 1 PACK (2 CLOTHS)(taper/protocol) TOPICAL SCH (04:00)
[2016-12-30] MEDS: RESP: ALBUTEROL 2.5 MG/IPRATROPIUM 0.5 MG NEB (SCH) NEB ×4 (04:01→21:31)
[2016-12-30] MEDS: DOCUSATE SODIUM 50 MG/SENNA 8.6 MG TAB PO PRN (05:45)
[2016-12-30] MEDS: DOCUSATE SODIUM 100 MG CAP PO SCH ×2 (05:45→17:43)
[2016-12-30 07:02] LABS: AUTOMATED NEUTROPHIL # 8.9 TH/MM3 (1.8-7.7); BASOPHIL # 0.1 TH/MM3 (0-0.2); BASOPHIL % 0.6 % (0.0-2.0); EOSINOPHIL # 1.2 TH/MM3 (0-0.4); EOSINOPHIL % 9.9 % (0.0-4.0); HEMATOCRIT 25.2 % (39.0-51.0); HEMO FLAGS DIFF FINAL; LYMPH % 6.5 % (9.0-44.0); LYMPHOCYTE # 0.8 TH/MM3 (1.0-4.8); MEAN CELL VOLUME 91.9 FL (80.0-100.0); MEAN CORPUSCULAR HEMOGLOBIN 30.5 PG (27.0-34.0); MEAN CORPUSCULAR HGB CONC 33.2 % (32.0-36.0); MONO % 7.8 % (0.0-8.0); NEUT % 75.2 % (16.0-70.0); PLATELET COUNT 390 TH/MM3 (150-450); RED BLOOD COUNT 2.74 MIL/MM3 (4.50-5.90); RED CELL DISTRIBUTION WIDTH 15.6 % (11.6-17.2); WHITE BLOOD COUNT 11.8 TH/MM3 (4.0-11.0)
[2016-12-30 07:11] LABS: BICARBONATE 27.6 MEQ/L (21.0-32.0); POTASSIUM 3.7 MEQ/L (3.5-5.1)
--- NOTE | 2016-12-30 08:02 | PD.ONC.PN ---
Subjective Subjective Remarks Patient was seen and examined, he tells me he has been in bed for weeks, he feels generally weak but denies difficulty breathing or hemoptysis. He re-iterates his desire to be transferred to [place] to be closer to his son Elpidio. The patient has been mapped and simulated for radiation to start. Objective Data Date Time Temp Pulse Resp B/P Pulse Ox O2 Delivery O2 Flow Rate FiO2 12/30/16 04:00 97.2 89 21 149/70 96 12/30/16 00:00 98.1 93 20 157/73 97 12/29/16 22:32 97 Nasal Cannula 2.00 12/29/16 20:00 99.0 90 19 135/70 95 12/29/16 20:00 Nasal Cannula 2.00 12/29/16 20:00 94 12/29/16 16:45 99.1 90 18 141/69 97 12/29/16 12:00 98.1 90 20 143/65 94 12/29/16 09:21 Nasal Cannula 2.00 35 12/29/16 08:01 99 2.00 12/29/16 08:00 99.4 92 18 152/71 95 12/30/16 12/30/16 12/30/16 07:00 15:00 23:00 Intake Total 480 ml Output Total 850 ml Balance -370 ml Result Diagram: 12/30/1661312/30/16616 Laboratory Results Laboratory Tests Test 12/30/16 12/30/16 06:14 06:17 White Blood Count 11.8 TH/MM3 Red Blood Count 2.74 MIL/MM3 Hemoglobin 8.4 GM/DL Hematocrit 25.2 % Mean Corpuscular Volume 91.9 FL Mean Corpuscular Hemoglobin 30.5 PG Mean Corpuscular Hemoglobin 33.2 % Concent Red Cell Distribution Width 15.6 % Platelet Count 390 TH/MM3 Mean Platelet Volume 6.9 FL Neutrophils (%) (Auto) 75.2 % Lymphocytes (%) (Auto) 6.5 % Monocytes (%) (Auto) 7.8 % Eosinophils (%) (Auto) 9.9 % Basophils (%) (Auto) 0.6 % Neutrophils # (Auto) 8.9 TH/MM3 Lymphocytes # (Auto) 0.8 TH/MM3 Monocytes # (Auto) 0.9 TH/MM3 Eosinophils # (Auto) 1.2 TH/MM3 Basophils # (Auto) 0.1 TH/MM3 CBC Comment DIFF FINAL Differential Comment Sodium Level 141 MEQ/L Potassium Level 3.7 MEQ/L Chloride Level 101 MEQ/L Carbon Dioxide Level 27.6 MEQ/L Anion Gap 12 MEQ/L Blood Urea Nitrogen 129 MG/DL Creatinine 3.86 MG/DL Estimat Glomerular Filtration 16 ML/MIN Rate Random Glucose 130 MG/DL Calcium Level 8.7 MG/DL Administered Medications Medications (Trade) Dose Ordered Sig/Luis Carlos Route PRN Reason Start Time Stop Time Status Last Admin Dose Admin IV Flush (NS Flush) 2 ml BID FLUSH 12/05/16 21:00 12/29/16 19:59 Docusate Sodium (Colace) 100 mg Q12H PO 12/05/16 18:00 12/30/16 05:45 Ferrous Sulfate (Ferrous Sulfate Liq) 300 mg DAILY PO 12/06/16 09:00 12/29/16 08:06 Atorvastatin Calcium (Lipitor) 40 mg HS PO 12/05/16 21:00 12/29/16 19:58 Furosemide (Lasix Liq) 40 mg DAILY TUBE 12/06/16 09:00 Hold 12/20/16 08:50 Senna/Docusate Sodium 2 tab 2 tab BID PRN PO CONSTIPATION 12/05/16 19:45 12/30/16 05:45 Sodium Chloride (NS 1000 ml Inj) 1,000 ml @ 0 mls/hr Q0M PRN IV For Prime & Rinse Back 12/06/16 12:11 12/12/16 09:33 Heparin Sodium (Porcine) (Heparin Inj) UNSCH PRN .XX WITH DIALYSIS 12/06/16 12:15 12/14/16 16:39 Gentamicin Sulfate (Gentamicin (Dialysis) Inj) 20 mg UNSCH PRN IV WITH DIALYSIS 12/06/16 12:15 12/14/16 16:39 Acetaminophen (Tylenol) 650 mg UNSCH PRN PO for headach, pain, temp > 101F 12/06/16 12:15 12/14/16 07:54 Clonidine (Catapres) 0.1 mg UNSCH PRN PO for BP > 180/100 X 2 readings 12/06/16 12:15 12/19/16 06:27 Epoetin Blanco (Epogen Inj) 10,000 units UNSCH PRN IV WITH DIALYSIS 12/06/16 12:15 12/14/16 16:39 Megestrol Acetate (Megace Liq) 400 mg DAILY PO 12/08/16 09:00 12/29/16 08:06 Heparin Sodium (Porcine) (Heparin Inj) 5,000 units Q12HR SQ 12/08/16 21:00 12/29/16 19:58 Phenytoin (Dilantin Liq) 300 mg Q12HR PO 12/08/16 21:00 12/29/16 19:58 Fluticasone Propionate (Flonase Evan Spr) 2 spray DAILY EACH NARE 12/18/16 12:00 12/28/16 09:00 Calcium Acetate 667 mg 667 mg TID PO 12/20/16 09:00 12/29/16 18:06 Sodium Chloride (1/2 NS 1000 ml Inj) 1,000 ml @ 65 mls/hr [id number] IV 12/20/16 10:00 Hold 12/24/16 21:10 Pantoprazole Sodium (Protonix) 40 mg DAILY PO 12/25/16 10:30 12/29/16 08:08 Miscellaneous Information Patient in critical care unit? Ass... Q361D .XX 12/25/16 22:30 12/25/16 22:30 Doxazosin Mesylate (Cardura) 10 mg HS PO 12/26/16 21:00 12/29/16 19:59 Nifedipine (Procardia Xl) 90 mg DAILY PO 12/27/16 09:00 12/29/16 08:07 Miscellaneous (Pill Splitter) 1 ea UNSCH PRN OTHER SEE LABEL COMMENTS 12/26/16 19:00 12/27/16 10:33 Doxazosin Mesylate (Cardura) 4 mg DAILY PO 12/29/16 09:00 12/29/16 08:08 Objective Remarks GENERAL: Elderly and frail man, laying in bed, not acutely distressed. A platelet of mostly uneven food sitting in front of him. SKIN: Warm and dry. HEAD: Normocephalic. EYES: No scleral icterus. No injection or drainage. NECK: Supple, trachea midline. No JVD or lymphadenopathy. LYMPHATIC: No adenopathy. CARDIOVASCULAR: Tachycardic, loud S1 and S2, no obvious murmurs or gallops. RESPIRATORY: Good air movement over the right lung anteriorly, prolonged expiratory phase. Decreased breath sounds over the left lung. GASTROINTESTINAL: Abdomen soft, non-tender, nondistended. Feeding tube in place. EXTREMITIES: No cyanosis, or edema. MUSCULOSKELETAL: Decreased muscle mass, tone and strength. NEUROLOGICAL: No obvious focal deficit. Awake, alert, and oriented x3. Generalized weakness. PSYCHIATRIC: Appropriate mood and affect; insight and judgment normal. Assessment/Plan Problem List: (1) Squamous cell lung cancer Status: Acute Plan: Locally advanced unresectable malignancy arising from the left mainstem bronchus. Resulting in complete collapse of the left lung. We had been planning palliative radiation to the involved area however at this time radiation treatment plans with prone hold as we await a disposition. Specifically, the patient and his family are considering palliation/hospice level of care would transfer to [place] so the patient to be closer to his family. I did discuss the case with our radiation oncologists earlier this morning and radiation treatment plans with placed on hold until we are asked to resume treatment plans. This decision depends on the patient and his family's expectations and goals of care. From an oncologic standpoint, it is clear this individual has an extremely poor ECOG performance status and will remain a poor candidate for aggressive systemic therapy. The benefits from palliative radiation to the thoracic disease will likely be limited. In my opinion and assessment Mr. Jaime is an appropriate hospice candidate. Assessment 71y/o with newly diagnosed Squamous cell carcinoma of the left mainstem bronchus as well as newly found bladder mass History: Mr. Jaime's history dates back to September 2016 when he began to develop increasing difficulty breathing as well as cough producing blood. He presented to [facility] on 10/22/2016 with acute worsening of difficulty breathing. He underwent imaging studies including a CT angiogram which revealed complete whiteout of the left lung, associated possible underlying mass / nodularity of the left hilum. He was shortly thereafter intubated. He had high volume hemoptysis. The patient was evaluated CT surgery here and after spending some time on a ventilator. He was transferred to the [facility] in [place] where he was evaluated by interventional pulmonology. 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 The left main bronchus was stented. The hemoptysis was controlled and he was eventually extubated. He did have a very complicated hospital stay though and while in the hospital he had a PEA arrest on 11/08/2016. He was resuscitated. He also developed acute renal failure and required hemodialysis. He has required a Dobbhoff tube for feeding purposes. 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 After his condition was stabilized he was transferred back to [facility] for continuation of care. Records from the [facility] indicated a bladder mass. Urology was consulted and they plan to do w/u once the patient is stronger. Plan 1. Squamous cell carcinoma of the left lung: Currently considering hospice level of care versus disease directed therapy. In my opinion he is an appropriate candidate for hospice. I have discussed the case with our radiation oncologist. Problem Qualifiers (1) Squamous cell lung cancer: Qualified Code: C34.92 - Squamous cell lung cancer, left Tevin Hobbs MD Dec 30, 2016 08:02
--- NOTE | 2016-12-30 08:49 | MB ---
cc: ANJALI YORK DATE OF CONSULTATION: 12/27/[address] Rutledge REASON FOR CONSULTATION Whiteout of the lung, and CA of the lung, history of Present Illness Mr. Jaime is a pleasant 71-year-old male who was admitted in this hospital September 2016. At that time he was found to have a large to the left lung mass and whiteout of the lung. He had a bronchoscopy done which showed obstruction of the main bronchus. He had a massive hemoptysis. The patients hemoptysis was controlled and he was transferred to [facility] in [place]. He underwent for the procedure for the debulking of endobronchial lesion and stenting of the left bronchus. He was found to have squamous cell carcinoma of the lung. The patient was on ventilator successfully extubated. He also developed renal failure was on dialysis and he is off on dialysis now he also had a PETE cardiac arrest at that time. Currently he is weaned down to nasal cannula, he eats his food but he still has feeding supplement with tube feeding at night time. PAST MEDICAL HISTORY 1. History of squamous cell carcinoma of the lung. 2. He had dialysis for a short period of time. 3. A history of seizure disorder when he was in service, his last seizure was more than 20 years ago. 4. History of hypertension. MEDICATIONS He is currently taking 1. Nifedipine 90 mg daily. 2. Doxazosin 10 mg a day. 3. Protonix 40 mg a day. 4. Flonase nasal spray 5. Heparin 5000 q 12 hours. 6. Dilantin 300 mg q. 12 hours. 7. Ferrous sulfate 300 mg a day. 8. Lipitor 40 mg a day. 9. Colace 100 mg twice a day. ALLERGIES NO KNOWN DRUG ALLERGIES. SOCIAL HISTORY He is , lives alone. He has a history of smoking and he was smoking cigar when he entered the hospital. No alcohol use. 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 FAMILY HISTORY: He has four children, two children live in this area two in [place]. REVIEW OF SYSTEMS He feels very weak, appetite is improving. No DVT or pulmonary embolism. PHYSICAL EXAMINATION: IN GENERAL: The physical examination reveals a well-developed, well-nourished nice male, awake, mild shortness of breath. VITAL SIGNS: blood pressure 130/58, heart rate 87, respirations 20 temperature 98 HEAD, EYES, EARS, NOSE, AND THROAT: The pupils are equal and reactive, Oral mucosa and nasal mucosa normal. NECK: Supple. JVP not raised. CHEST: Decreased breath sounds on the left side. CARDIOVASCULAR: S1, S2 normal. ABDOMEN: Benign. EXTREMITIES: No edema. LABORATORY FINDINGS His chest x-ray shows complete opacification of the left hemithorax which is unchanged he has a mass present in the right lung which appears Fluid in the fissure CBC white blood cell 10.7, Hemoglobin 9.2, hematocrit 27.0, platelet count 475. Sodium 140, potassium 3.5, chloride 101, CO2 28, BUN 119, creatinine 4.22. IMPRESSION 1. Whiteout of left lung because of the lung mass. 2. Squamous cell carcinoma of the lung. 3. COPD 4. History of hemoptysis. 5. Renal failure. 6. Generalized weakness. PLAN 1. He will supplement his oxygen. 2. Continue aerosol treatment. 3. The patient is being evaluated for radiation 4. Monitor his blood pressure. 5. He is on Subcu heparin. 6. Further treatment depending upon hospitalization. Thank you Dr. Rutledge for this consultation. MD ZACHARY Perez/santiago /7:03 PM /8:44 AM MTDD
[2016-12-30] MEDS: SODIUM CHLORIDE 0.9% FLUSH 5 ML FLUSH FLUSH SCH ×2 (09:00→21:00)
[2016-12-30] MEDS: NIFEdipine 90 MG SUSTAINED RELEASE TAB PO SCH (09:38)
[2016-12-30] MEDS: CALCIUM ACETATE 667 MG CAP PO SCH ×3 (09:38→17:43)
[2016-12-30] MEDS: DOXAZOSIN MESYLATE 4 MG TAB PO SCH ×2 (09:38→21:07)
[2016-12-30] MEDS: PHENYTOIN SUSP 100 MG/4 ML CUP PO SCH ×2 (09:38→21:04)
[2016-12-30] MEDS: PANTOPRAZOLE SOD 40 MG DELAYED RELEASE TAB PO SCH (09:38)
[2016-12-30] MEDS: HEPARIN SODIUM - SQ 10,000 UNITS/ML VIAL SQ SCH ×2 (09:39→21:04)
[2016-12-30] MEDS: MEGESTROL ACETATE SUSP 400 MG/10 ML CUP PO SCH (09:39)
[2016-12-30] MEDS: FERROUS SULFATE 300 MG /5ML UDC PO SCH (09:42)
--- NOTE | 2016-12-30 09:45 | HHI.NPPN ---
Subjective General Problems: Anemia, Edema Renal Failure: Acute History of Present Illness 71 y/o male pt. Transferred to [facility] from [facility] with renal failure from possible ATN. Interval History Lying in bed, alert, no complaints. Creatinine is better, BUN remains elevated. (Marina Mcgovern) Review of Systems General Constitutional: Fatigue General Remarks generalized weakness (Marina Mcgovern) Objective Data Data 12/29/16 12/30/16 19:00 07:00 Intake Total 1397 ml 960 ml Output Total 600 ml 1650 ml Balance 797 ml -690 ml Intake Oral 360 ml 960 ml Tube Feeding 1037 ml Output Urine Total 600 ml 1650 ml Vital Signs Date Time Temp Pulse Resp B/P Pulse Ox O2 Delivery O2 Flow Rate FiO2 12/30/16 08:00 97.2 70 20 139/69 96 12/30/16 04:00 97.2 89 21 149/70 96 12/30/16 00:00 98.1 93 20 157/73 97 12/29/16 22:32 97 Nasal Cannula 2.00 12/29/16 20:00 99.0 90 19 135/70 95 12/29/16 20:00 Nasal Cannula 2.00 12/29/16 20:00 94 12/29/16 16:45 99.1 90 18 141/69 97 12/29/16 12:00 98.1 90 20 143/65 94 (Marina Mcgovern) -: 12/30/16 0614 12/30/16 0617 Imaging Last Impressions Chest X-Ray 12/25/16 0000 Signed Impressions: Service Date/Time: Sunday, December 25, 2016 08:59 - CONCLUSION: 1. Complete opacification of the left hemithorax unchanged from previous. 2. 4.5 cm masslike density on the right which appears to be fluid loculated in the fissure. This is decreased in size when compared to previous. 3. Dialysis catheter in good position. Patrick Shelton MD Upper Extremity Ultrasound 12/11/16 1506 Signed Impressions: Service Date/Time: Sunday, December 11, 2016 18:00 - CONCLUSION: Superficial thrombophlebitis, extensive edema and nonspecific fluid collections in the subcutaneous tissues. Shawn Reyes MD Head CT 12/11/16 0000 Signed Impressions: Service Date/Time: Sunday, December 11, 2016 20:00 - CONCLUSION: Slight atrophic and small vessel ischemic changes without any evidence for acute hemorrhage or mass effect. Shawn Reyes MD Renal Ultrasound 12/09/16 0000 Signed Impressions: Service Date/Time: Friday, December 09, 2016 15:16 - CONCLUSION: 1. 8.4 cm mass lesion at the base of the bladder. This may represent an intrinsic mass of the bladder versus a prominent anterior lobe of the prostate. 2. Otherwise, urinary bladder is partially decompressed with a Miranda catheter. 3. Both kidneys are sonographically normal. Roby Horta MD Tubes & Lines: Miranda Tubes & Lines Comment PEG, (Marina Mcgovern B. DRY PLASTERER) Physical Exam General Appearance: Well Developed, Well Nourished, No Acute Distress, Comfortable ( FroilanMarina B. DRY PLASTERER) Eyes Eye Exam: Pupils Equal, Pupils Reactive (FroilanMarina B. DRY PLASTERER) Throat Throat Exam: Oral Mucosa [place] & Moist (FroilanMarina B. DRY PLASTERER) Pulmonary Resp Exam: Breath Sounds Equal, No Distress, Decreased Bases, Diminished Breath Sounds (FroilanMarina B. DRY PLASTERER) Cardiology CV Exam: Regular, Normal Sinus Rhythm, Good Perfusion, Murmur (FroilanMarina B. DRY PLASTERER) Gastrointestinal/Abdomen GI Exam: Soft, Non-Tender, Bowel Sounds Present, Positive Bowel Movement ( FroilanMarina B. DRY PLASTERER) Genitourinary Exam: Clear Urine (FroilanMarina B. DRY PLASTERER) Musculoskeletal MS Exam: Joints Intact, Atrophy, Unable to Ambulate (FroilanMarina B. DRY PLASTERER) Integumentary Skin Exam: Clear, Warm, Dry, Intact (FroilanMarina B. DRY PLASTERER) Extremeties Extremities Exam: No Edema, Pedal Pulses Palpable (FroilanMarina B. DRY PLASTERER) Neurologic Neuro Exam: Alert, Awake, Oriented, Speech Clear, Moving All Extremities ( FroilanMarina B. DRY PLASTERER) Psychiatric Psych Exam: Appropriate Responses (Marina Mcgovern B. DRY PLASTERER) Assessment/Plan Discussed Condition With: Patient, Son Assessment Summary: TODD/Acute Renal Failure, Acute Tubular Necrosis Electrolyte Assessment: Hypokalemia Problem List: (1) Acute renal failure Plan: He had creatinine 0.77 in October Renal failure ATN due to PEA arrest HD has been held, last treatment 12/17 creatinine continues to improved, BUN disproportionately elevated heme positive last month, also anemic, may have GI bleed? unable to tolerate colonoscopy good urine output hold HD again today encouraged oral hydration Apparent early renal recovery. off IVF avoid nephrotoxins (2) Anemia Plan: Hb low but stable hematology/oncology following previously on epogen with HD, given venofer at admission Hemoccult positive , cannot tolerate bowel prep for colonoscopy (3) Bronchiolar obstruction Plan: s/p stent placement, dx of squamous cell carcinoma med oncology following (4) Mass of left lung Plan: oncology has evaluated, appreciate their recommendations he is unstable for systemic treatment at this time may have radiation therapy hospice may be appropriate (5) Acute respiratory failure Plan: extubated, on nasal cannula continuous speech therapy following (6) Bladder mass Plan: urology following, bladder US report noted he will need cystoscopy with TURBT when more stable (7) UTI (urinary tract infection) Plan: resolved, off antibiotics remove miranda when evaluated by urology given bladder mass (Marina Mcgovern) Plan patient was seen and examined. Creatinine is better. BUN continues to be higher. Rule out upper GI bleeding. Noted that he is anemic. Non oliguric. Will not dialyze him today. (Willian Borjas MD) Problem Qualifiers (1) UTI (urinary tract infection): Marina Mcgovern Dec 30, 2016 09:45 Willian Borjas MD Dec 30, 2016 11:01
[2016-12-30] MEDS: FLUTICASONE PROPIONATE 50 MCG/ACT 16 GM NASAL SPRAY EACH NARE SCH (09:58)
--- NOTE | 2016-12-30 17:50 | HHI.PR ---
Subjective Remarks Patient has no complaints denies cp/sob denies fevers/chills denies diarrhea Objective Vitals Vital Signs Date Time Temp Pulse Resp B/P Pulse Ox O2 Delivery O2 Flow Rate FiO2 12/30/16 16:00 97.0 90 16 119/59 95 12/30/16 12:00 98.3 93 20 142/73 97 12/30/16 10:12 96 Nasal Cannula 2.00 12/30/16 08:00 Nasal Cannula 2.00 12/30/16 08:00 97.2 70 20 139/69 96 12/30/16 04:00 97.2 89 21 149/70 96 12/30/16 00:00 98.1 93 20 157/73 97 12/29/16 22:32 97 Nasal Cannula 2.00 12/29/16 20:00 99.0 90 19 135/70 95 12/29/16 20:00 Nasal Cannula 2.00 12/29/16 20:00 94 I/O 12/29/16 12/29/16 12/29/16 12/30/16 12/30/16 12/30/16 07:00 15:00 23:00 07:00 15:00 23:00 Intake Total 480 ml 1397 ml 480 ml 480 ml 1719 ml Output Total 850 ml 600 ml 800 ml 850 ml 600 ml Balance -370 ml 797 ml -320 ml -370 ml 1119 ml Intake Oral 480 ml 360 ml 480 ml 480 ml 600 ml IV Total 1119 ml Tube Feeding 1037 ml Output Urine Total 850 ml 600 ml 800 ml 850 ml 600 ml Result Diagram: 12/30/16 0614 12/30/16 0617 Imaging Last Impressions Chest X-Ray 12/25/16 0000 Signed Impressions: Service Date/Time: Sunday, December 25, 2016 08:59 - CONCLUSION: 1. Complete opacification of the left hemithorax unchanged from previous. 2. 4.5 cm masslike density on the right which appears to be fluid loculated in the fissure. This is decreased in size when compared to previous. 3. Dialysis catheter in good position. Patrick Shelton MD Upper Extremity Ultrasound 12/11/16 1506 Signed Impressions: Service Date/Time: Sunday, December 11, 2016 18:00 - CONCLUSION: Superficial thrombophlebitis, extensive edema and nonspecific fluid collections in the subcutaneous tissues. KHedy Richard Shamlou, MD Head CT 12/11/16 0000 Signed Impressions: Service Date/Time: Sunday, December 11, 2016 20:00 - CONCLUSION: Slight atrophic and small vessel ischemic changes without any evidence for acute hemorrhage or mass effect. Shawn Reyes MD Renal Ultrasound 12/09/16 0000 Signed Impressions: Service Date/Time: Friday, December 09, 2016 15:16 - CONCLUSION: 1. 8.4 cm mass lesion at the base of the bladder. This may represent an intrinsic mass of the bladder versus a prominent anterior lobe of the prostate. 2. Otherwise, urinary bladder is partially decompressed with a Lipscomb catheter. 3. Both kidneys are sonographically normal. Roby Horta MD Objective Remarks GENERAL: This is a well-nourished, well-developed patient, in no apparent distress. CARDIOVASCULAR: Regular rate and regular rhythm without murmurs, gallops, or rubs. RESPIRATORY: Clear to auscultation on right side, left lung with decreased breath sounds. No wheezing, rhonchi or murmur auscultated. GASTROINTESTINAL: Abdomen soft, non-tender, nondistended. Normal, active bowel sounds. PEG c/d/i MUSCULOSKELETAL: Extremities without clubbing, cyanosis, or edema. NEURO: Alert & Oriented x4 to person, place, time, situation. Moves all ext x4 Procedures 12/11- EGD- esophagitis, gastritis, duodenitis PEG placement Medications and IVs Current Medications Medications (Trade) Dose Ordered Sig/Luis Carlos Route Start Time Stop Time Status Last Admin (NS Flush) 2 ml UNSCH PRN FLUSH 12/05/16 17:00 (NS Flush) 2 ml BID FLUSH 12/05/16 21:00 12/30/16 09:00 (Zofran Inj) 4 mg Q6H PRN IVP 12/05/16 18:00 (Dulcolax Supp) 10 mg DAILY PRN TX 12/05/16 18:00 (Colace) 100 mg Q12H PO 12/05/16 18:00 12/30/16 17:43 (Narcan Inj) 0.4 mg UNSCH PRN IV 12/05/16 17:00 (Ferrous Sulfate Liq) 300 mg DAILY PO 12/06/16 09:00 12/30/16 09:42 (Lipitor) 40 mg HS PO 12/05/16 21:00 12/29/16 19:58 (Lasix Liq) 40 mg DAILY TUBE 12/06/16 09:00 Hold 12/20/16 08:50 (Jacinda-Colace) 2 tab BID PRN PO 12/05/16 19:45 12/30/16 05:45 (Lactulose Liq) 30 ml TID PRN PO 12/05/16 19:45 Magnesium Hydroxide 30 ml 30 ml Q6H PRN PO 12/05/16 19:45 (NS 1000 ml Inj) 1,000 ml @ 0 mls/hr Q0M PRN IV 12/06/16 12:11 12/12/16 09:33 Heparin Sodium (Porcine) 8000 units 8,000 units UNSCH PRN IVF 12/06/16 12:15 Sodium Chloride 1,000 ml @ 200 mls/hr Q5H PRN IV 12/06/16 12:11 (NS 1000 ml Inj) 1,000 ml @ 0 mls/hr Q0M PRN IV 12/06/16 12:11 (Mannitol Inj) 12.5 gm UNSCH PRN IV 12/06/16 12:15 (Albumin 25% Inj) 25 gm UNSCH PRN IV 12/06/16 12:15 (NS Flush) 5 ml UNSCH PRN IVF 12/06/16 12:15 (Heparin Inj) UNSCH PRN .XX 12/06/16 12:15 12/14/16 16:39 (Gentamicin (Dialysis) Inj) 20 mg UNSCH PRN IV 12/06/16 12:15 12/14/16 16:39 (Zofran Inj) 4 mg UNSCH PRN IV 12/06/16 12:15 (Tylenol) 650 mg UNSCH PRN PO 12/06/16 12:15 12/14/16 07:54 (Benadryl) 25 mg UNSCH PRN PO 12/06/16 12:15 (Nitrostat Sl) 0.4 mg UNSCH PRN SL 12/06/16 12:15 (Catapres) 0.1 mg UNSCH PRN PO 12/06/16 12:15 12/19/16 06:27 (Epogen Inj) 10,000 units UNSCH PRN IV 12/06/16 12:15 12/14/16 16:39 (Gelfoam 12 Mm/7 Mm Top) 1 foam UNSCH PRN TOP 12/06/16 12:15 (Megace Liq) 400 mg DAILY PO 12/08/16 09:00 12/30/16 09:39 (Heparin Inj) 5,000 units Q12HR SQ 12/08/16 21:00 12/30/16 09:39 (Dilantin Liq) 300 mg Q12HR PO 12/08/16 21:00 12/30/16 09:38 (Flonase Evan Spr) 2 spray DAILY EACH NARE 12/18/16 12:00 12/30/16 09:58 Calcium Acetate 667 mg 667 mg TID PO 12/20/16 09:00 12/30/16 17:43 (1/2 NS 1000 ml Inj) 1,000 ml @ 65 mls/hr [id number] IV 12/20/16 10:00 Hold 12/24/16 21:10 (Protonix) 40 mg DAILY PO 12/25/16 10:30 12/30/16 09:38 Miscellaneous Information Patient in critical care unit? Ass... [id number] .XX 12/25/16 22:30 12/25/16 22:30 (Chlorhexidine 2% Cloth) 3 pack UNSCH PRN TOPICAL 12/25/16 22:30 12/30/16 22:25 (Cardura) 10 mg HS PO 12/26/16 21:00 12/29/16 19:59 (Procardia Xl) 90 mg DAILY PO 12/27/16 09:00 12/30/16 09:38 (Pill Splitter) 1 ea UNSCH PRN OTHER 12/26/16 19:00 12/27/16 10:33 (Cardura) 4 mg DAILY PO 12/29/16 09:00 12/30/16 09:38 Urinary Catheter: Yes Assessment to: Continue Lipscomb insert reason: Measure Accurate Output Date of Insertion: Nov 15, 2016 A/P Assessment and Plan 1. Squamous cell carcinoma of the lung: Status post stent placement in the left main bronchus at [facility]. Patient required to be intubated and mechanically ventilated, status post extubation. Patient had a complicated stay with a stent in the left main bronchus. Oncology consulted. Radiation oncology consulted and radiation therapy was recommended. Patient underwent radiation simulation on 12/23/16. XRT will possibly next week to plan and then the patient will need approximately over 6 weeks of treatment. 2. Acute kidney injury: Active renal failure ATN due to PEA arrest. Patient required some treatments with hemodialysis which has been held, last treatment was on 12/17/16. Currently on IV fluids as per renal recommendations and renal function is improving. Lasix on hold since patient has a good urine output. IV Fluids held. sp IV Bumex with excellent urine output. Continue to monitor BUN/creatinine, strict I's and O's and avoid nephrotoxic medications. Creatinine stable today at 3.86. Continue to monitor bun/creatinine, strict I's O's, avoid nephrotoxins. 3. Hypertension: Blood pressure uncontrolled versus only with elevated blood pressure into the systolic 160s. BP much improved and seems to be stable. Continue procardia 90 mg daily. Continue Cardura 10 mg at bedtime and 4 mg in am. Continue clonidine prn. 4. Hypokalemia: Resolved. Continue to monitor BMP and replace as needed. 5. BPH: On doxazosin. 6. Bladder mass: Neurology consulted. For cystoscopy when the patient stronger in the future. Neurology will need to be consulted if patient optimal condition for surgery/procedure which will require anesthesia. 7. Acute respiratory failure: Patient again had an episode of oxygen desaturation. Chest x-ray reviewed by me shows complete whiteout of the left lung and some pulmonary vascular congestion on the right. I will hold IV fluids and give IV Bumex. Continue DuoNeb as needed. Echocardiogram 55-60%. Continue supplemental O2 to keep o2 sat > 92%. 8. Klebsiella pneumonia: Bronchus sputum positive for Klebsiella, treated at [facility] and finish course of antibiotics as per previous records. Blood cultures was negative. 9. Iron deficiency anemia: Low iron stores. Patient is status post EGD which found gastritis, duodenitis and esophagitis being treated with PPI. 10. Severe protein calorie malnutrition: Albumin 1.7 on admission. Patient is status post PEG placement on 12/11/16. Status post IV iron treatment. Pt tolerating Nocturnal TF'ing 6p to 6a. TF'ing held, for Dilantin dosing(one hour before and one hour after dosing). Continue Nepro oral supplement bid. Continue tube feedings with tray. 11. Left upper extremity superficial thrombophlebitis: Much improved. Treat with warm compresses. 12. UTI: Culture grew Nisa. Status post treatment. 13. Seizure disorder: Seem stable. Continue Dilantin. Seizure precautions. 14. DVT prophylaxis: SCDs, heparin subcutaneously SQ. 15. GI Prophylaxis: I will add a PPI. 16. PT/OT daily - Will need therapy at rehab upon discharge. 17. Poor appetite: Better on Megace. Continue. 19. Acute hypercapnic respiratory failure: Patient found to be lethargic yesterday, ABG showed a pH of 7.17, PCO2 of 82 and PO2 of 141. The patient was placed on BiPAP and after some time responded with improvement of his mentation and PCO2. Patient is currently off BiPAP and the patient's respiratory failure is much improved. Continue supplemental oxygen to keep oxygen saturation more than 92%. Pulmonology consulted - recommendations appreciated. Respiratory failure resolved. Discharge Planning Continue to monitor in the medical floor. Diego Sherwood MD Dec 30, 2016 17:50
--- NOTE | 2016-12-30 19:48 | HHI.PR ---
Subjective Remarks Patient is on 2L oxygen with good sats. Afebrile. Anxious to have radiation started Objective Vital Signs Vital Signs Date Time Temp Pulse Resp B/P Pulse Ox O2 Delivery O2 Flow Rate FiO2 12/30/16 16:00 97.0 90 16 119/59 95 12/30/16 12:00 98.3 93 20 142/73 97 12/30/16 10:12 96 Nasal Cannula 2.00 12/30/16 08:00 Nasal Cannula 2.00 12/30/16 08:00 97.2 70 20 139/69 96 12/30/16 08:00 93 12/30/16 04:00 97.2 89 21 149/70 96 12/30/16 00:00 98.1 93 20 157/73 97 12/29/16 22:32 97 Nasal Cannula 2.00 12/29/16 20:00 99.0 90 19 135/70 95 12/29/16 20:00 Nasal Cannula 2.00 12/29/16 20:00 94 I/O 12/29/16 12/29/16 12/29/16 12/30/16 12/30/16 12/30/16 07:00 15:00 23:00 07:00 15:00 23:00 Intake Total 480 ml 1397 ml 480 ml 480 ml 1719 ml Output Total 850 ml 600 ml 800 ml 850 ml 600 ml Balance -370 ml 797 ml -320 ml -370 ml 1119 ml Intake Oral 480 ml 360 ml 480 ml 480 ml 600 ml IV Total 1119 ml Tube Feeding 1037 ml Output Urine Total 850 ml 600 ml 800 ml 850 ml 600 ml Result Diagram: 12/30/16 0614 12/30/1617 Objective Remarks GENERAL: Patient is lying in bed in NAD SKIN: Warm and dry. HEAD: Normocephalic. EYES: No scleral icterus. No injection or drainage. NECK: Supple, trachea midline. No JVD or lymphadenopathy. CARDIOVASCULAR: Regular rate and rhythm without murmurs, gallops, or rubs. RESPIRATORY: Breath sounds equal bilaterally. No accessory muscle use. GASTROINTESTINAL: Abdomen soft, non-tender, nondistended. MUSCULOSKELETAL: No cyanosis, or edema. BACK: Nontender without obvious deformity. No CVA tenderness. 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 Patient underwent radiation simulation on 12/23/16. XRT will possibly start next week . Heme Onc is following Monitor renal function, avoid nephrotoxins, Renal is following. HD per renal. Valeriy Wilkins MD Dec 30, 2016 19:48
[2016-12-30] MEDS: ATORVASTATIN 40 MG TAB PO SCH (21:04)
[2016-12-31] VITALS (11 sets, daily range): BP systolic 136–169; BP diastolic 65–82; PULSE 78–95; RESP 18–20; TEMP 96.7–98.4; O2SAT 92–98
[2016-12-31] MEDS: RESP: ALBUTEROL 2.5 MG/IPRATROPIUM 0.5 MG NEB (SCH) NEB ×4 (03:33→21:46)
[2016-12-31] MEDS: DOCUSATE SODIUM 100 MG CAP PO SCH ×2 (05:05→18:00)
[2016-12-31] MEDS: FLUTICASONE PROPIONATE 50 MCG/ACT 16 GM NASAL SPRAY EACH NARE SCH (09:00)
[2016-12-31] MEDS: CALCIUM ACETATE 667 MG CAP PO SCH ×3 (09:52→18:33)
[2016-12-31] MEDS: FERROUS SULFATE 300 MG /5ML UDC PO SCH (09:52)
[2016-12-31] MEDS: NIFEdipine 90 MG SUSTAINED RELEASE TAB PO SCH (09:52)
[2016-12-31] MEDS: HEPARIN SODIUM - SQ 10,000 UNITS/ML VIAL SQ SCH ×2 (09:52→21:27)
[2016-12-31] MEDS: PANTOPRAZOLE SOD 40 MG DELAYED RELEASE TAB PO SCH (09:52)
[2016-12-31] MEDS: DOXAZOSIN MESYLATE 4 MG TAB PO SCH ×2 (09:52→21:27)
[2016-12-31] MEDS: MEGESTROL ACETATE SUSP 400 MG/10 ML CUP PO SCH (09:53)
[2016-12-31] MEDS: SODIUM CHLORIDE 0.9% FLUSH 5 ML FLUSH FLUSH SCH ×2 (09:53→21:00)
[2016-12-31] MEDS: PHENYTOIN SUSP 100 MG/4 ML CUP PO SCH ×2 (09:53→21:26)
--- NOTE | 2016-12-31 09:59 | HHI.NPPN ---
Subjective General Problems: Anemia, Edema Renal Failure: Acute History of Present Illness 71 y/o male pt. Transferred to [facility] from [facility] with renal failure from possible ATN. Interval History No acute concerns today. Inquiring about plan for radiation therapy. (Marina Mcgovern) Review of Systems General Constitutional: Fatigue General Remarks generalized weakness (Marina Mcgovern) Objective Data Data 12/30/16 12/31/16 19:00 07:00 Intake Total 1719 ml 960 ml Output Total 600 ml 1800 ml Balance 1119 ml -840 ml Intake Oral 600 ml 960 ml IV Total 1119 ml Output Urine Total 600 ml 1800 ml Vital Signs Date Time Temp Pulse Resp B/P Pulse Ox O2 Delivery O2 Flow Rate FiO2 12/31/16 09:33 98 Nasal Cannula 3.00 12/31/16 04:00 96.9 88 18 160/73 95 12/31/16 03:35 96 Nasal Cannula 2.00 12/31/16 00:00 96.7 89 18 153/82 94 12/30/16 21:36 99 BiPAP 2.00 12/30/16 21:33 99 Nasal Cannula 2.00 12/30/16 21:04 Nasal Cannula 2.00 12/30/16 20:00 97.1 87 18 138/68 96 12/30/16 20:00 88 12/30/16 16:00 97.0 90 16 119/59 95 12/30/16 12:00 98.3 93 20 142/73 97 12/30/16 10:12 96 Nasal Cannula 2.00 (Marina Mcgovern) -: 12/30/16 0614 12/30/16 0617 Tubes & Lines: Miranda Tubes & Lines Comment PEG, (Marina Mcgovern) Physical Exam General Appearance: Well Developed, Well Nourished, No Acute Distress, Comfortable ( Marina Mcgovern) Eyes Eye Exam: Pupils Equal, Pupils Reactive (Marina Mcgovern) Throat Throat Exam: Oral Mucosa [place] & Moist (Marina Mcgovern) Pulmonary Resp Exam: Breath Sounds Equal, No Distress, Decreased Bases, Diminished Breath Sounds (Marina Mcgovern) Cardiology CV Exam: Regular, Normal Sinus Rhythm, Good Perfusion, Murmur (Marina Mcgovern) Gastrointestinal/Abdomen GI Exam: Soft, Non-Tender, Bowel Sounds Present, Positive Bowel Movement ( Marina Mcgovern) Genitourinary Exam: Clear Urine (Marina Mcgovern) Musculoskeletal MS Exam: Joints Intact, Atrophy, Unable to Ambulate (Marina Mcgovern) Integumentary Skin Exam: Clear, Warm, Dry, Intact (Marina Mcgovern) Extremeties Extremities Exam: No Edema, Pedal Pulses Palpable (Marina Mcgovern) Neurologic Neuro Exam: Alert, Awake, Oriented, Speech Clear, Moving All Extremities ( Marina Mcgovern) Psychiatric Psych Exam: Appropriate Responses (Marina Mcgovern) Assessment/Plan Discussed Condition With: Patient, Son Assessment Summary: TODD/Acute Renal Failure, Acute Tubular Necrosis Problem List: (1) Acute renal failure Plan: He had creatinine 0.77 in October Renal failure ATN due to PEA arrest HD has been on hold, last treatment 12/17 he appears to be in renal recovery creatinine is slowly improving but BUN disproportionately elevated i have asked GI to reevaluate for possible colonoscopy to address possible GI bleed he has excellent urine output he is off IVF avoid nephrotoxins daily renal panel (2) Anemia Plan: Hb low but stable hematology/oncology following will give a dose of epogen Hemoccult positive , GI to reevaluate (3) Bronchiolar obstruction Plan: s/p stent placement, dx of squamous cell carcinoma med oncology following (4) Mass of left lung Plan: oncology has evaluated, appreciate their recommendations he is unstable for systemic treatment at this time may have radiation therapy hospice may be appropriate (5) Acute respiratory failure Plan: extubated, on nasal cannula continuous speech therapy has signed off (6) Bladder mass Plan: urology following, bladder US report noted he will need cystoscopy with TURBT when more stable (7) UTI (urinary tract infection) Plan: resolved, off antibiotics remove miranda when evaluated by urology given bladder mass (Marina Mcgovern) Plan patient was seen and examined. Higher BUN, creatinine is better. Will defer dialysis. Rule out upper GI bleeding. (Willian Borjas MD) Problem Qualifiers (1) UTI (urinary tract infection): Marina Mcgovern [facility] Dec 31, 2016 09:59 Willian Borjas MD Dec 31, 2016 11:46
[2016-12-31 11:24] LABS: BICARBONATE 25.3 MEQ/L (21.0-32.0)
[2016-12-31 11:56] LABS: HEMATOCRIT 26.8 % (39.0-51.0); MEAN CELL VOLUME 86.9 FL (80.0-100.0); MEAN CORPUSCULAR HEMOGLOBIN 27.8 PG (27.0-34.0); MEAN CORPUSCULAR HGB CONC 31.9 % (32.0-36.0); PLATELET COUNT 377 TH/MM3 (150-450); RED BLOOD COUNT 3.08 MIL/MM3 (4.50-5.90); REVIEW FLAG FINAL; WHITE BLOOD COUNT 13.7 TH/MM3 (4.0-11.0)
--- NOTE | 2016-12-31 13:05 | HHI.GIFU ---
Subjective Remarks GI reconsulted for colonoscopy by nephrology. Resting in bed. No obvious active bleeding. Tolerating diet. (Audrey Vanegas) Objective Vitals I&O Vital Signs Date Time Temp Pulse Resp B/P Pulse Ox O2 Delivery O2 Flow Rate FiO2 12/31/16 09:33 98 Nasal Cannula 3.00 12/31/16 08:00 Nasal Cannula 2.00 35 12/31/16 08:00 97.1 89 20 169/74 92 12/31/16 08:00 95 12/31/16 04:00 96.9 88 18 160/73 95 12/31/16 03:35 96 Nasal Cannula 2.00 12/31/16 00:00 96.7 89 18 153/82 94 12/30/16 21:36 99 BiPAP 2.00 12/30/16 21:33 99 Nasal Cannula 2.00 12/30/16 21:04 Nasal Cannula 2.00 12/30/16 20:00 97.1 87 18 138/68 96 12/30/16 20:00 88 12/30/16 16:00 97.0 90 16 119/59 95 I/O 12/30/16 12/30/16 12/30/16 12/31/16 12/31/16 12/31/16 07:00 15:00 23:00 07:00 15:00 23:00 Intake Total 480 ml 1719 ml 480 ml 480 ml Output Total 850 ml 600 ml 950 ml 850 ml Balance -370 ml 1119 ml -470 ml -370 ml Intake Oral 480 ml 600 ml 480 ml 480 ml IV Total 1119 ml Output Urine Total 850 ml 600 ml 950 ml 850 ml Laboratory Laboratory Tests Test 12/31/16 12/31/16 10:56 11:18 Sodium Level 138 Potassium Level 4.0 Chloride Level 100 Carbon Dioxide Level 25.3 Anion Gap 13 Blood Urea Nitrogen 131 Creatinine 3.60 Estimat Glomerular Filtration 17 Rate Random Glucose 119 Calcium Level 8.4 Phosphorus Level 4.0 Albumin 1.9 White Blood Count 13.7 Red Blood Count 3.08 Hemoglobin 8.6 Hematocrit 26.8 Mean Corpuscular Volume 86.9 Mean Corpuscular Hemoglobin 27.8 Mean Corpuscular Hemoglobin 31.9 Concent Red Cell Distribution Width 16.0 Platelet Count 377 Mean Platelet Volume 6.9 Imaging Last Impressions Chest X-Ray 12/25/16 0000 Signed Impressions: Service Date/Time: Sunday, December 25, 2016 08:59 - CONCLUSION: 1. Complete opacification of the left hemithorax unchanged from previous. 2. 4.5 cm masslike density on the right which appears to be fluid loculated in the fissure. This is decreased in size when compared to previous. 3. Dialysis catheter in good position. Patrick Shelton MD Upper Extremity Ultrasound 12/11/16 1506 Signed Impressions: Service Date/Time: Sunday, December 11, 2016 18:00 - CONCLUSION: Superficial thrombophlebitis, extensive edema and nonspecific fluid collections in the subcutaneous tissues. Shawn Reyes MD Head CT 12/11/16 0000 Signed Impressions: Service Date/Time: Sunday, December 11, 2016 20:00 - CONCLUSION: Slight atrophic and small vessel ischemic changes without any evidence for acute hemorrhage or mass effect. Shawn Reyes MD Renal Ultrasound 12/09/16 0000 Signed Impressions: Service Date/Time: Friday, December 09, 2016 15:16 - CONCLUSION: 1. 8.4 cm mass lesion at the base of the bladder. This may represent an intrinsic mass of the bladder versus a prominent anterior lobe of the prostate. 2. Otherwise, urinary bladder is partially decompressed with a Lipscomb catheter. 3. Both kidneys are sonographically normal. Roby Horta MD Physical Exam HEENT: Normocephalic; atraumatic; no jaundice. CHEST: Resp. shallow/even, course breath sounds CARDIAC: RRR ABDOMEN: Soft, nondistended, nontender; bowel sounds are present in all four quadrants. PEG tube site without redness or swelling EXTREMITIES: Edema in both UE and LE FRANCHISE MANAGER: No focal deficits; lethargic and oriented times three. Generalized weakness (VanegasCecily Sasha [employer]) Assessment and Plan Plan ASSESSMENT: - Iron Deficiency Anemia with Hemoccult positive stool. HH on arrival was 6.6/ 20.0. He was given 2 units of PRBC. He is not having any obvious GI bleeding at this time. Other than decreased appetite, he denies any GI symptoms. He last had an EGD and colonoscopy was about 4-5 [facility] and reports that he had a colon polyp removed at that time. Iron 25, TIBC 197, TIBC 197, Iron saturation 12.7. Getting iron transfusions and PPI. Plan was for EGD with PEG tube placement and colonoscopy once calorie count completed, but patient is extremely weak and does not feel that he could take the bowel prep for colonoscopy at this time. S/P EGD with PEG tube placement (12/11/16)----> A hiatal hernia, gastritis antrum-biopsy, esophagitis distal esophagus-biopsy s/p peg placement. Pathology with acute nonspecific duodenitis/ileitis, gastric antral mucosal biopsy without significant histopathologic abnormality negative for gastritis, gastropathy, metaplasia and dysplasia, esophageal mucosal biopsy with eosinophilic esophagitis consistent with reflux. Plan was for colonoscopy once he was stronger and could tolerate prep. GI has been reconsulted for colonoscopy by renal, as they think that GI blood loss may be contributing to his renal failure. 8.6/.8. Epogen. - Protein calorie malnutrition. S/P PEG, site without redness or swelling. Also taking po. 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 Patient was hospitalized at this facility last month after developing shortness of breath and significant hemoptysis. He required mechanical ventilation. He was evaluated by CVT and then transferred to the [facility] in [place]. He was evaluated by Interventional pulmonology and underwent a bronchoscopy with debulking of a large mass involving the left mainstem bronchus. The left main bronchus was stented. He is being followed by oncology. - Acute renal failure, HD per renal. Requesting colonoscopy - Severe deconditioning. Pt has had a prolonged hospitalization, complicated by PEA arrest on 11/08/16. ST/OT/PT PLAN: - Plan for colonoscopy in am - Obtain consents - Clear liquids - NPO after MN - Golytely prep - Hold heparin after MN - PPI - Epogen - Monitor H&H - Transfuse as necessary - Supportive care - Pt seen and examined by Dr. Clemens and myself and this note is written on his behalf (Audrey Vanegas) Physician Comments patient was seen and examined, agree with above note, plan colonoscopy in am ( Rasheed Clemens MD) Audrey Vanegas Dec 31, 2016 13:05 Rasheed Clemens MD Dec 31, 2016 17:27
--- NOTE | 2016-12-31 14:33 | HHI.HCPN ---
Reason for visit a. To assist with evaluation and management of symptoms including: dyspnea, weakness, malnutrition b. To assist medical decision maker(s) with: better understanding of current medical conditions; weighing benefits/burdens of medical treatment options; making medical treatment decisions. (Evangelina Watson) Subjective/Interval History Pt seen to follow up on dyspnea , goals. Patient has remained stable. Mildly elevated blood pressures. H&H continues to be low, chronic anemia,? GI blood loss. GI has been reconsulted to proceed with colonoscopy as patient has remained stable, GI evaluated patient in the past and recommended colonoscopy when patient able to tolerate. Plan for colonoscopy tomorrow, patient completing prep today. H&H 8.6/26.8. WBC remains slightly elevated 13.7. Patient afebrile. BUN still elevated 131, creatinine has been trending down 3.6, nephrology continues to hold hemodialysis. Pt seen in room- he is awake, pleasant, oriented. explore plans for colonoscopy tomorrow- he is aware, indicates he has had colonoscopy before. Explore recent conversation regarding goals, treatment here versus trying to transition up to [place] to be near his family at [id number]--he tells me all the doctors and providers keep telling him about his final days, and he tells me he has no intention of spending his final days here in the hospital and that he has determined he will complete his radiation treatment here and eventually get up to [place] to be near his family. I did gently explore them that I'm concerned that even if he pursues further treatment here he will continue to decline and not regain functional mobility, and may at some point become too unstable/ill to get up to [place]. Goals remain aggressive, he has been in contact with his family who is supportive of his wishes. Offered to call his son Elpidio to update, he tells me his son Elpidio is on a camping trip but that I could call Elpidio's , his [id number]. Following exam call to [id number] Gwen. Provided update review of current conditions, assessment, as well as patient's expressed goals. Review of pending colonoscopy, dialysis remains on hold etc. She has no additional questions. She has palliative contact information. She is appreciative of ongoing updates. Family continues to support whatever patient's goals / wishes are. . (Evangelina Watson) Advance Directives Living Will: Completed, but not made available Health Care Surrogate: Copy in medical record (Evangelina Waston) Advance Directive Specifics Date completed: 12/17/16 Health Care Surrogate(s): Names son Elpidio Jaime as HCS (Evangelina Watson) Objective Vital Signs Date Time Temp Pulse Resp B/P Pulse Ox O2 Delivery O2 Flow Rate FiO2 12/31/16 12:00 98.4 91 20 138/67 95 12/31/16 09:33 98 Nasal Cannula 3.00 12/31/16 08:00 Nasal Cannula 2.00 35 12/31/16 08:00 97.1 89 20 169/74 92 12/31/16 08:00 95 12/31/16 04:00 96.9 88 18 160/73 95 12/31/16 03:35 96 Nasal Cannula 2.00 12/31/16 00:00 96.7 89 18 153/82 94 12/30/16 21:36 99 BiPAP 2.00 12/30/16 21:33 99 Nasal Cannula 2.00 12/30/16 21:04 Nasal Cannula 2.00 12/30/16 20:00 97.1 87 18 138/68 96 12/30/16 20:00 88 12/30/16 16:00 97.0 90 16 119/59 95 Intake & Output 12/31/16 12/31/16 07:00 19:00 Intake Total 960 ml Output Total 1800 ml Balance -840 ml Intake Oral 960 ml Output Urine Total 1800 ml Physical Exam CONSTITUTIONAL/GENERAL: This is a chronically ill appearing pt, no distress, alert, pleasant TUBES/LINES/DRAINS:pIV LUE, NC O2. +PEG tube CARDIOVASCULAR: Regular rate and rhythm, no murmurs. Peripheral pulses symmetric. RESPIRATORY/CHEST: Symmetric, unlabored respirations. 3L nc. Clear to right, significantly decreased/minimal air movement to the left. GASTROINTESTINAL: Abdomen soft, non-tender, nondistended. No palpable masses. No guarding. Bowel sounds present.PEG tube clamped ,dressing clean/dry NEUROLOGICAL: Alert, oriented. Reasonable/simple insight into hospitalization and conditions. Follows commands. Moves all 4 extremities with significant weakness PSYCHIATRIC: No obvious anxiety/depression. no apparent hallucinations or other psychotic thought process. . (Evangelina Watson) Diagnostic Tests Laboratory Laboratory Tests Test 12/29/16 12/30/16 12/30/16 12/31/16 05:48 06:14 06:17 10:56 White Blood Count 12.1 TH/MM3 11.8 TH/MM3 (4.0-11.0) (4.0-11.0) Red Blood Count 2.67 MIL/MM3 2.74 MIL/MM3 (4.50-5.90) (4.50-5.90) Hemoglobin 8.7 GM/DL 8.4 GM/DL (13.0-17.0) (13.0-17.0) Hematocrit 25.7 % 25.2 % (39.0-51.0) (39.0-51.0) Mean Corpuscular Volume 96.3 FL 91.9 FL (80.0-100.0) (80.0-100.0) Mean Corpuscular Hemoglobin 32.7 PG 30.5 PG (27.0-34.0) (27.0-34.0) Mean Corpuscular Hemoglobin 34.0 % 33.2 % Concent (32.0-36.0) (32.0-36.0) Red Cell Distribution Width 15.8 % 15.6 % (11.6-17.2) (11.6-17.2) Platelet Count 429 TH/MM3 390 TH/MM3 (150-450) (150-450) Mean Platelet Volume 6.9 FL 6.9 FL (7.0-11.0) (7.0-11.0) Neutrophils (%) (Auto) 75.5 % 75.2 % (16.0-70.0) (16.0-70.0) Lymphocytes (%) (Auto) 5.3 % 6.5 % (9.0-44.0) (9.0-44.0) Monocytes (%) (Auto) 8.8 % (0.0-8.0) 7.8 % (0.0-8.0) Eosinophils (%) (Auto) 9.7 % (0.0-4.0) 9.9 % (0.0-4.0) Basophils (%) (Auto) 0.7 % (0.0-2.0) 0.6 % (0.0-2.0) Neutrophils # (Auto) 9.1 TH/MM3 8.9 TH/MM3 (1.8-7.7) (1.8-7.7) Lymphocytes # (Auto) 0.6 TH/MM3 0.8 TH/MM3 (1.0-4.8) (1.0-4.8) Monocytes # (Auto) 1.1 TH/MM3 0.9 TH/MM3 (0-0.9) (0-0.9) Eosinophils # (Auto) 1.2 TH/MM3 1.2 TH/MM3 (0-0.4) (0-0.4) Basophils # (Auto) 0.1 TH/MM3 0.1 TH/MM3 (0-0.2) (0-0.2) CBC Comment DIFF FINAL DIFF FINAL Differential Comment Sodium Level 139 MEQ/L 141 MEQ/L 138 MEQ/L (136-145) (136-145) (136-145) Potassium Level 3.4 MEQ/L 3.7 MEQ/L 4.0 MEQ/L (3.5-5.1) (3.5-5.1) (3.5-5.1) Chloride Level 99 MEQ/L 101 MEQ/L 100 MEQ/L (98-107) (98-107) (98-107) Carbon Dioxide Level 27.4 MEQ/L 27.6 MEQ/L 25.3 MEQ/L (21.0-32.0) (21.0-32.0) (21.0-32.0) Anion Gap 13 MEQ/L (5-15) 12 MEQ/L (5-15) 13 MEQ/L (5-15) Blood Urea Nitrogen 124 MG/DL 129 MG/DL 131 MG/DL (7-18) (7-18) (7-18) Creatinine 3.84 MG/DL 3.86 MG/DL 3.60 MG/DL (0.60-1.30) (0.60-1.30) (0.60-1.30) Estimat Glomerular Filtration 16 ML/MIN (>89) 16 ML/MIN (>89) 17 ML/MIN (>89) Rate Random Glucose 129 MG/DL 130 MG/DL 119 MG/DL (74-106) (74-106) (74-106) Calcium Level 8.3 MG/DL 8.7 MG/DL 8.4 MG/DL (8.5-10.1) (8.5-10.1) (8.5-10.1) Phosphorus Level 4.0 MG/DL (2.5-4.9) Albumin 1.9 GM/DL (3.4-5.0) Test 12/31/16 11:18 White Blood Count 13.7 TH/MM3 (4.0-11.0) Red Blood Count 3.08 MIL/MM3 (4.50-5.90) Hemoglobin 8.6 GM/DL (13.0-17.0) Hematocrit 26.8 % (39.0-51.0) Mean Corpuscular Volume 86.9 FL (80.0-100.0) Mean Corpuscular Hemoglobin 27.8 PG (27.0-34.0) Mean Corpuscular Hemoglobin 31.9 % Concent (32.0-36.0) Red Cell Distribution Width 16.0 % (11.6-17.2) Platelet Count 377 TH/MM3 (150-450) Mean Platelet Volume 6.9 FL (7.0-11.0) (Evangelina Watson) Result Diagram: 12/31/16 1118 12/31/16 1056 Imaging Last Impressions Chest X-Ray 12/25/16 0000 Signed Impressions: Service Date/Time: Sunday, December 25, 2016 08:59 - CONCLUSION: 1. Complete opacification of the left hemithorax unchanged from previous. 2. 4.5 cm masslike density on the right which appears to be fluid loculated in the fissure. This is decreased in size when compared to previous. 3. Dialysis catheter in good position. Patrick Shelton MD Upper Extremity Ultrasound 12/11/16 1506 Signed Impressions: Service Date/Time: Sunday, December 11, 2016 18:00 - CONCLUSION: Superficial thrombophlebitis, extensive edema and nonspecific fluid collections in the subcutaneous tissues. Shawn Reyes MD Head CT 12/11/16 0000 Signed Impressions: Service Date/Time: Sunday, December 11, 2016 20:00 - CONCLUSION: Slight atrophic and small vessel ischemic changes without any evidence for acute hemorrhage or mass effect. Shawn Reyes MD Renal Ultrasound 12/09/16 0000 Signed Impressions: Service Date/Time: Friday, December 09, 2016 15:16 - CONCLUSION: 1. 8.4 cm mass lesion at the base of the bladder. This may represent an intrinsic mass of the bladder versus a prominent anterior lobe of the prostate. 2. Otherwise, urinary bladder is partially decompressed with a Lipscomb catheter. 3. Both kidneys are sonographically normal. Roby Horta MD (Evangelina Watson [facility]) Assessment and Plan Disease Oriented Problem List: (1) Mass of left lung Comment: +SCC (2) Acute renal failure (3) Squamous cell lung cancer (4) Bladder mass (5) Anemia (6) UTI (urinary tract infection) Comment: awaiting BX/resection when stable (7) Severe muscle deconditioning (8) Acute respiratory failure Comment: resolved Symptom Scale: (1) Malnutrition (2) Dyspnea (3) Weakness Pertinent Non-Medical Issues Psychosocial:. 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 Lives at home alone. Supported by 4 sons, 2 in [place], 2 in [place] Spiritual: Legal:pt appears able to participate in decision making. Reports his son Elpidio is [facility], they will provide copies. Pt appears to have simple understanding of things and wishes to include his son in medical updates and decision making . Ethical issues impacting care: Important Contacts Son Marly Landeros- ([facility]) Elpidio Jaime [phone] (Gwen, DIL [phone]) Jevon Jaime [phone] . Prognosis This patient has a new diagnosis of squamous cell carcinoma, s/p mass resection , intubation and arrest. He subsequently suffered acute renal failure and remains on hemodialysis. He has new findings of a large bladder mass, concerning for cancer, however cannot have additional diagnostic procedures until acute condition improves. It is possible his cancer could be treated, however his acute issues need to improve and his overall performance status needs to improve in order to obtain staging, and possible treatment. He has multiple issues and is severely deconditioned, it may take significant time for him to improve enough for treatment and during that time he remains high risk for further complications and setbacks. Code Status: Full Code Plan * Legal decision maker:pt appears able to participate in decision making. Reports his son Elpidio is HCS, they will provide copies. Pt appears to have simple understanding of things and wishes to include his son in medical updates and decision making . HCS completed 12/17/16 naming son Elpidio Jaime as HCS * Goals: GOALS HAVE BEEN AGGRESSIVE, pt wants to try to get needed resources in line in order to to go back home to [place] with his son, and possible obtain chemotherapy to treat his cancer and have more time. Patient's son and healthcare surrogate Elpidio is supportive of the patient's wishes. They're working to try to get him up to [place] closer to them. I provided an update to son 12/19 --12/27/16-discussion with patient, oncology PA as well as bedside regarding unlikely he will be able to pursue chemotherapy, usually be expected to experience continued decline and debility here in the hospital setting explored with him hospice option. He is not ready to transition to hospice at this time. Also spoke with his family regarding, they will have ongoing conversations with patient. Patient also advises he will talk to his family about the possibility of transitioning to hospice, he is open to ongoing discussions regarding. --12/31/16patient continues to express aggressive goals. He is not interested in hospice or de-escalation of treatment at this time. He expresses desire to complete radiation treatment here and then try to transfer to [place] after that. Updated [id number], Family continues to support whatever the patient wishes are. * CODE STATUS: Full code * SYMPTOMS: --dyspnea- s/p acute resp failure- prolonged intubation, resolved. Has been on nasal cannula O2, PRN nebulizers-- denies and shortness of breath; earlier today with episode of desaturation, dyspnea. CXR appears unchanged, essentially white out of left lung. Episode of respiratory distress earlier this week, required transfer to ICU and BiPAP, currently maintaining on nasal cannula w/ BiPAP in the evening/overnight, as needed --malnutrition- +PEG, TF at night, + oral food in day time, on MEGACE, appetite fair, appears to improving intake slowly -- eating 50% of most recent meals, fluctuates at times eating 25%, or 100%. --weakness/deconditioning - in hospital since 10/22 -- severely deconditioned- -> PT working with, pt with limited strength to even sit on side of bed.Pt reports difficulty feeding self due to weakness.Continues to work with OT/PT though clinical condition limits his ability to participate in prolonged therapy --Dysphagia-some concern with coughing with drinking per TECHNICAL REP, post evnm ,tolerating thin liquids though probably remains ongoing risk for aspiration * Palliative care will continue to follow during hospital course as condition evolves, to assist patient/decision-maker with understanding of medical conditions, weighing benefits/burdens of treatment options, for clarification of goals of treatment. Additionally will assist with any symptoms of palliative concern (Evangelina Watson) Time Spent Total Floor Time (mins): 20 >50% Counseling/Coord of Care: Yes (d/w med attending, oncolgoy) (Evangelina Watson) Attestation To help prompt me to consider important information that might be impacting today's encounter and assessment, information from prior notes written by myself or my colleagues may have been "brought forward" into today's note. My signature on this note, however, is an attestation that I personally performed the exam, history, and/or decision-making noted today, and, unless otherwise indicated, the interactions with patient, family, and staff as well as the review of records all occurred today. I also attest that the listed assessment and stated plan reflect my best clinical judgment today based on the combination of historical information, prior notes, and today's exam/ interactions. When time spent is documented, it refers only to time spent today by the signer, or if indicated, combined time spent today by collaborating physician/nurse practitioner. (Evangelina Watson) Collaborating MD Comments . Chart reviewed. Cased discussed with palliative care BREAKDOWN PERSON. Above BREAKDOWN PERSON note reviewed and I concur. . (Ciro Reynoso MD) Evangelina Watson Dec 31, 2016 14:33 Ciro Reynoso MD February 17, 2017 14:53
[2016-12-31] MEDS ORDERED: PEG (High)/E-LYTE SOLN 4000 ML BTL PO ONE ×2 (16:00)
--- NOTE | 2016-12-31 16:31 | HHI.PR ---
Subjective Remarks denies cp/sob feels hungry denies abdominal pain denies diarrhea denies fevers and chills no cough Objective Vitals Vital Signs Date Time Temp Pulse Resp B/P Pulse Ox O2 Delivery O2 Flow Rate FiO2 12/31/16 16:14 95 Nasal Cannula 2.00 12/31/16 15:02 78 12/31/16 12:00 98.4 91 20 138/67 95 12/31/16 09:33 98 Nasal Cannula 3.00 12/31/16 08:00 Nasal Cannula 2.00 35 12/31/16 08:00 97.1 89 20 169/74 92 12/31/16 08:00 95 12/31/16 04:00 96.9 88 18 160/73 95 12/31/16 03:35 96 Nasal Cannula 2.00 12/31/16 00:00 96.7 89 18 153/82 94 12/30/16 21:36 99 BiPAP 2.00 12/30/16 21:33 99 Nasal Cannula 2.00 12/30/16 21:04 Nasal Cannula 2.00 12/30/16 20:00 97.1 87 18 138/68 96 12/30/16 20:00 88 I/O 12/30/16 12/30/16 12/30/16 12/31/16 12/31/16 12/31/16 07:00 15:00 23:00 07:00 15:00 23:00 Intake Total 480 ml 1719 ml 480 ml 480 ml Output Total 850 ml 600 ml 950 ml 850 ml Balance -370 ml 1119 ml -470 ml -370 ml Intake Oral 480 ml 600 ml 480 ml 480 ml IV Total 1119 ml Output Urine Total 850 ml 600 ml 950 ml 850 ml Result Diagram: 12/31/16 1118 12/31/16 1056 Imaging Last Impressions Chest X-Ray 12/25/16 0000 Signed Impressions: Service Date/Time: Sunday, December 25, 2016 08:59 - CONCLUSION: 1. Complete opacification of the left hemithorax unchanged from previous. 2. 4.5 cm masslike density on the right which appears to be fluid loculated in the fissure. This is decreased in size when compared to previous. 3. Dialysis catheter in good position. Patrick Shelton MD Upper Extremity Ultrasound 12/11/16 1506 Signed Impressions: Service Date/Time: Sunday, December 11, 2016 18:00 - CONCLUSION: Superficial thrombophlebitis, extensive edema and nonspecific fluid collections in the subcutaneous tissues. Shawn Reyes MD Head CT 12/11/16 0000 Signed Impressions: Service Date/Time: Sunday, December 11, 2016 20:00 - CONCLUSION: Slight atrophic and small vessel ischemic changes without any evidence for acute hemorrhage or mass effect. Shawn Reyes MD Renal Ultrasound 12/09/16 0000 Signed Impressions: Service Date/Time: Friday, December 09, 2016 15:16 - CONCLUSION: 1. 8.4 cm mass lesion at the base of the bladder. This may represent an intrinsic mass of the bladder versus a prominent anterior lobe of the prostate. 2. Otherwise, urinary bladder is partially decompressed with a Lipscomb catheter. 3. Both kidneys are sonographically normal. Roby Horta MD Objective Remarks GENERAL: This is a well-nourished, well-developed patient, in no apparent distress. CARDIOVASCULAR: Regular rate and regular rhythm without murmurs, gallops, or rubs. RESPIRATORY: Clear to auscultation on right side, left lung with decreased breath sounds. No wheezing, rhonchi or murmur auscultated. GASTROINTESTINAL: Abdomen soft, non-tender, nondistended. Normal, active bowel sounds. PEG c/d/i MUSCULOSKELETAL: Extremities without clubbing, cyanosis, or edema. NEURO: Alert & Oriented x4 to person, place, time, situation. Moves all ext x4 Procedures 12/11- EGD- esophagitis, gastritis, duodenitis PEG placement Medications and IVs Current Medications Medications (Trade) Dose Ordered Sig/Luis Carlos Route Start Time Stop Time Status Last Admin (NS Flush) 2 ml UNSCH PRN FLUSH 12/05/16 17:00 (NS Flush) 2 ml BID FLUSH 12/05/16 21:00 12/31/16 09:53 (Zofran Inj) 4 mg Q6H PRN IVP 12/05/16 18:00 (Dulcolax Supp) 10 mg DAILY PRN FL 12/05/16 18:00 (Colace) 100 mg Q12H PO 12/05/16 18:00 12/31/16 05:05 (Narcan Inj) 0.4 mg UNSCH PRN IV 12/05/16 17:00 (Ferrous Sulfate Liq) 300 mg DAILY PO 12/06/16 09:00 12/31/16 09:52 (Lipitor) 40 mg HS PO 12/05/16 21:00 12/30/16 21:04 (Lasix Liq) 40 mg DAILY TUBE 12/06/16 09:00 Hold 12/20/16 08:50 (Jacinda-Colace) 2 tab BID PRN PO 12/05/16 19:45 12/30/16 05:45 (Lactulose Liq) 30 ml TID PRN PO 12/05/16 19:45 Magnesium Hydroxide 30 ml 30 ml Q6H PRN PO 12/05/16 19:45 (NS 1000 ml Inj) 1,000 ml @ 0 mls/hr Q0M PRN IV 12/06/16 12:11 12/12/16 09:33 Heparin Sodium (Porcine) 8000 units 8,000 units UNSCH PRN IVF 12/06/16 12:15 Sodium Chloride 1,000 ml @ 200 mls/hr Q5H PRN IV 12/06/16 12:11 (NS 1000 ml Inj) 1,000 ml @ 0 mls/hr Q0M PRN IV 12/06/16 12:11 (Mannitol Inj) 12.5 gm UNSCH PRN IV 12/06/16 12:15 (Albumin 25% Inj) 25 gm UNSCH PRN IV 12/06/16 12:15 (NS Flush) 5 ml UNSCH PRN IVF 12/06/16 12:15 (Heparin Inj) UNSCH PRN .XX 12/06/16 12:15 12/14/16 16:39 (Gentamicin (Dialysis) Inj) 20 mg UNSCH PRN IV 12/06/16 12:15 12/14/16 16:39 (Zofran Inj) 4 mg UNSCH PRN IV 12/06/16 12:15 (Tylenol) 650 mg UNSCH PRN PO 12/06/16 12:15 12/14/16 07:54 (Benadryl) 25 mg UNSCH PRN PO 12/06/16 12:15 (Nitrostat Sl) 0.4 mg UNSCH PRN SL 12/06/16 12:15 (Catapres) 0.1 mg UNSCH PRN PO 12/06/16 12:15 12/19/16 06:27 (Epogen Inj) 10,000 units UNSCH PRN IV 12/06/16 12:15 12/14/16 16:39 (Gelfoam 12 Mm/7 Mm Top) 1 foam UNSCH PRN TOP 12/06/16 12:15 (Megace Liq) 400 mg DAILY PO 12/08/16 09:00 12/31/16 09:53 (Heparin Inj) 5,000 units Q12HR SQ 12/08/16 21:00 Future Hold 12/31/16 09:52 (Dilantin Liq) 300 mg Q12HR PO 12/08/16 21:00 12/31/16 09:53 (Flonase Evan Spr) 2 spray DAILY EACH NARE 12/18/16 12:00 12/31/16 09:00 Calcium Acetate 667 mg 667 mg TID PO 12/20/16 09:00 12/31/16 13:18 (1/2 NS 1000 ml Inj) 1,000 ml @ 65 mls/hr [id number] IV 12/20/16 10:00 Hold 12/24/16 21:10 (Protonix) 40 mg DAILY PO 12/25/16 10:30 12/31/16 09:52 Miscellaneous Information Patient in critical care unit? Ass... Q361D .XX 12/25/16 22:30 12/25/16 22:30 (Cardura) 10 mg HS PO 12/26/16 21:00 12/30/16 21:07 (Procardia Xl) 90 mg DAILY PO 12/27/16 09:00 12/31/16 09:52 (Pill Splitter) 1 ea UNSCH PRN OTHER 12/26/16 19:00 12/27/16 10:33 (Cardura) 4 mg DAILY PO 12/29/16 09:00 12/31/16 09:52 Urinary Catheter: No Date of Insertion: Nov 15, 2016 Vascular Central Line Catheter: No A/P Assessment and Plan 1. Squamous cell carcinoma of the lung: Status post stent placement in the left main bronchus at [facility]. Patient required to be intubated and mechanically ventilated, status post extubation. Patient had a complicated stay with a stent in the left main bronchus. Oncology consulted. Radiation oncology consulted and radiation therapy was recommended. Patient underwent radiation simulation on 12/23/16. XRT will possibly next week to plan and then the patient will need approximately over 6 weeks of treatment. Oncology following. 2. Acute kidney injury: Active renal failure ATN due to PEA arrest. Patient required some treatments with hemodialysis which has been held, last treatment was on 12/17/16. Currently on IV fluids as per renal recommendations and renal function is improving. Lasix on hold since patient has a good urine output. IV Fluids held. sp IV Bumex with excellent urine output. Continue to monitor BUN/creatinine, strict I's and O's and avoid nephrotoxic medications. Creatinine slowly trending down. Continue to monitor bun/creatinine, strict I's O's, avoid nephrotoxins. Fu nephrology recommendations. 3. Hypertension: Blood pressure uncontrolled versus only with elevated blood pressure into the systolic 160s. BP much improved and seems to be stable. Continue procardia 90 mg daily. Continue Cardura 10 mg at bedtime and 4 mg in am. Continue clonidine prn. 4. Hypokalemia: Resolved. Continue to monitor BMP and replace as needed. 5. BPH: On doxazosin. 6. Bladder mass: Neurology consulted. For cystoscopy when the patient stronger in the future. Neurology will need to be consulted if patient optimal condition for surgery/procedure which will require anesthesia. 7. Acute respiratory failure: Patient again had an episode of oxygen desaturation. Chest x-ray reviewed by me shows complete whiteout of the left lung and some pulmonary vascular congestion on the right. I will hold IV fluids and give IV Bumex. Continue DuoNeb as needed. Echocardiogram 55-60%. Continue supplemental O2 to keep o2 sat > 92%. 8. Klebsiella pneumonia: Bronchus sputum positive for Klebsiella, treated at [facility] and finish course of antibiotics as per previous records. Blood cultures was negative. 9. Iron deficiency anemia: Low iron stores. Patient is status post EGD which found gastritis, duodenitis and esophagitis being treated with PPI. 12/31 For colonoscopy in am. Patient with iron deficiency anemia and Hemoccult positive stool. 10. Severe protein calorie malnutrition: Albumin 1.7 on admission. Patient is status post PEG placement on 12/11/16. Status post IV iron treatment. Pt tolerating Nocturnal TF'ing 6p to 6a. TF'ing held, for Dilantin dosing(one hour before and one hour after dosing). Continue Nepro oral supplement bid. Continue tube feedings with tray. 11. Left upper extremity superficial thrombophlebitis: Much improved. Treat with warm compresses. 12. UTI: Culture grew Nisa. Status post treatment. 13. Seizure disorder: Seem stable. Continue Dilantin. Seizure precautions. 14. DVT prophylaxis: SCDs, heparin subcutaneously SQ. 15. GI Prophylaxis: Continue PPI. 16. PT/OT daily - Will need therapy at rehab upon discharge. 17. Poor appetite: Better on Megace. Continue. 19. Acute hypercapnic respiratory failure:Resolved. Sp bipap now on nasal canula. Continue supplemental oxygen to keep oxygen saturation more than 92%. Pulmonology consulted - recommendations appreciated. Respiratory failure resolved. Palliative care following. Discharge Planning Continue to monitor in the medical floor. Diego Sherwood MD Dec 31, 2016 16:31
--- NOTE | 2016-12-31 18:23 | HHI.PR ---
Subjective Remarks Patient is on 2L oxygen with good sats. Afebrile. Anxious to have radiation started Seen by GI Objective Vital Signs Vital Signs Date Time Temp Pulse Resp B/P Pulse Ox O2 Delivery O2 Flow Rate FiO2 12/31/16 16:14 95 Nasal Cannula 2.00 12/31/16 16:00 98.0 85 20 136/65 96 12/31/16 15:02 78 12/31/16 12:00 98.4 91 20 138/67 95 12/31/16 09:33 98 Nasal Cannula 3.00 12/31/16 08:00 Nasal Cannula 2.00 35 12/31/16 08:00 97.1 89 20 169/74 92 12/31/16 08:00 95 12/31/16 04:00 96.9 88 18 160/73 95 12/31/16 03:35 96 Nasal Cannula 2.00 12/31/16 00:00 96.7 89 18 153/82 94 12/30/16 21:36 99 BiPAP 2.00 12/30/16 21:33 99 Nasal Cannula 2.00 12/30/16 21:04 Nasal Cannula 2.00 12/30/16 20:00 97.1 87 18 138/68 96 12/30/16 20:00 88 I/O 12/30/16 12/30/16 12/30/16 12/31/16 12/31/16 12/31/16 07:00 15:00 23:00 07:00 15:00 23:00 Intake Total 480 ml 1719 ml 480 ml 480 ml 480 ml Output Total 850 ml 600 ml 950 ml 850 ml 900 ml Balance -370 ml 1119 ml -470 ml -370 ml -420 ml Intake Oral 480 ml 600 ml 480 ml 480 ml 480 ml IV Total 1119 ml Output Urine Total 850 ml 600 ml 950 ml 850 ml 900 ml Result Diagram: 12/31/16 1118 12/31/16 1056 Objective Remarks GENERAL: Patient is lying in bed in NAD SKIN: Warm and dry. HEAD: Normocephalic. EYES: No scleral icterus. No injection or drainage. NECK: Supple, trachea midline. No JVD or lymphadenopathy. CARDIOVASCULAR: Regular rate and rhythm without murmurs, gallops, or rubs. RESPIRATORY: Breath sounds equal bilaterally. No accessory muscle use. GASTROINTESTINAL: Abdomen soft, non-tender, nondistended. MUSCULOSKELETAL: No cyanosis, or edema. BACK: Nontender without obvious deformity. No CVA tenderness. Neuro: Awake and alert A/P Assessment and Plan 1)Resp Insiff 2)[id number] of left hemithorax- Unchanged 3)Squamous cell ca involving left main stem s/p endobronchial stent placement s/p XTR 4)s/p Hemoptysis 5)ARF 5)Anemia 6)Leukocytosis 7)HTN 8)UTI Plan Continue with oxygen keep sat >92% Bronchodilators (DuoNeb) NIPPV PRN for resp distress S/p stent placement in the left main bronchus at [facility]. Patient underwent radiation simulation on 12/23/16. XRT will possibly start next week . Heme Onc is following Monitor renal function, avoid nephrotoxins, Renal is following. HD per renal. Colonoscopy in AM. Valeriy Wilkins MD Dec 31, 2016 18:23
[2016-12-31] MEDS: ATORVASTATIN 40 MG TAB PO SCH (21:27)
[2017-01-01] VITALS (10 sets, daily range): BP systolic 145–188; BP diastolic 69–85; PULSE 81–97; RESP 16–20; TEMP 97.4–98.7; O2SAT 90–99
[2017-01-01] MEDS: RESP: ALBUTEROL 2.5 MG/IPRATROPIUM 0.5 MG NEB (SCH) NEB ×3 (04:00→15:35)
[2017-01-01 07:42] LABS: HEMATOCRIT 27.8 % (39.0-51.0); MEAN CELL VOLUME 87.6 FL (80.0-100.0); MEAN CORPUSCULAR HEMOGLOBIN 27.9 PG (27.0-34.0); MEAN CORPUSCULAR HGB CONC 31.9 % (32.0-36.0); PLATELET COUNT 390 TH/MM3 (150-450); RED BLOOD COUNT 3.18 MIL/MM3 (4.50-5.90); RED CELL DISTRIBUTION WIDTH 15.3 % (11.6-17.2); REVIEW FLAG FINAL; WHITE BLOOD COUNT 12.5 TH/MM3 (4.0-11.0)
[2017-01-01 08:13] LABS: BICARBONATE 27.6 MEQ/L (21.0-32.0)
[2017-01-01] MEDS: CALCIUM ACETATE 667 MG CAP PO SCH ×3 (09:00→18:00)
[2017-01-01] MEDS ORDERED: PROPOFOL 200 MG/20 ML AMP IV ONE (11:38)
--- NOTE | 2017-01-01 12:30 | GIPROC ---
[facility] [address] [facility]. [facility], [address] EGD PROCEDURE REPORT EXAM DATE: 01/01/2017 PATIENT NAME: Eveline Jaime MR #: [id number] BIRTHDATE: 1945 ATTENDING: Rasheed Clemens MD ORDER #: [id number] PLASTICS PRODUCTION MACHINE OPERATOR: Emir Alcala and Juan Manuel Peña STATUS: inpatient INDICATIONS: The patient is a 71 yr old male here for an EGD due to anemia PROCEDURE PERFORMED: EGD w/ biopsy MEDICATIONS: None and Per Anesthesia. TOPICAL ANESTHETIC: none CONSENT: The patient understands the risks and benefits of the procedure and understands that these risks include, but are not limited to: sedation, allergic reaction, infection, perforation and/or bleeding. Alternative means of evaluation and treatment include, among others: physical exam, x-rays, and/or surgical intervention. The patient elects to proceed with this endoscopic procedure. medical equipment was checked for proper function. Hand hygiene and appropriate measures for infection prevention was taken. After the risks, benefits and alternatives of the procedure were thoroughly explained, Informed consent was verified, confirmed and timeout was successfully executed by the treatment team. The patient was anesthetized with topical anesthesia and the EC-[id number] (Pedi C) endoscope was introduced through the mouth and advanced to the second portion of the duodenum. Retroflexed views revealed no abnormalities The gastroscope was then slowly withdrawn and removed. Esophagitis Bx at EG junction. PEG tube in good position. The endoscopy was otherwise normal. ADVERSE EVENTS: There were no complications. IMPRESSIONS: 1. Esophagitis Bx at EG junction 2. PEG tube in good position 3. Normal endoscopy otherwise 4. Retroflexed views revealed no abnormalities RECOMMENDATIONS: 1. Await biopsy results. Biopsy results will not be ready for 7-10 days. If you don't hear from us in two weeks, call our office for biopsy results. 2. Anti-reflux regimen 3. Continue PPI 4. Avoid NSAIDS PATIENT CONDITION: stable DISPOSITION: Inpatient REPEAT EXAM: Return as needed for EGD Rasheed Clemens MD eSigned: Rasheed Clemens MD 01/01/2017 12:30 PM cc:
[2017-01-01] MEDS: NIFEdipine 90 MG SUSTAINED RELEASE TAB PO SCH (13:09)
[2017-01-01] MEDS: DOCUSATE SODIUM 100 MG CAP PO SCH ×2 (13:09)
[2017-01-01] MEDS: DOXAZOSIN MESYLATE 4 MG TAB PO SCH ×2 (13:09→20:11)
[2017-01-01] MEDS: PANTOPRAZOLE SOD 40 MG DELAYED RELEASE TAB PO SCH (13:09)
[2017-01-01] MEDS: FERROUS SULFATE 300 MG /5ML UDC PO SCH (13:09)
[2017-01-01] MEDS: SODIUM CHLORIDE 0.9% FLUSH 5 ML FLUSH FLUSH SCH ×2 (13:10→20:14)
[2017-01-01] MEDS: MEGESTROL ACETATE SUSP 400 MG/10 ML CUP PO SCH (13:10)
[2017-01-01] MEDS: PHENYTOIN SUSP 100 MG/4 ML CUP PO SCH ×2 (13:10→20:11)
[2017-01-01] MEDS: FLUTICASONE PROPIONATE 50 MCG/ACT 16 GM NASAL SPRAY EACH NARE SCH (13:13)
--- NOTE | 2017-01-01 14:24 | HHI.PR ---
Subjective Remarks f/u for multiple medical condition listed in A/P. patient has no complaints. His SOB has improved but he always feels short of breath. Patient had EGD done today. Denied any GI bleed. Objective Vitals Vital Signs Date Time Temp Pulse Resp B/P Pulse Ox O2 Delivery O2 Flow Rate FiO2 01/01/17 12:40 89 16 149/73 93 01/01/17 12:30 90 18 148/69 93 01/01/17 12:20 98.6 91 16 123/66 95 01/01/17 11:50 98.0 86 20 186/85 99 01/01/17 09:15 97.8 85 16 170/82 98 01/01/17 07:50 98.7 90 20 188/84 99 01/01/17 04:00 98.4 81 18 158/76 97 01/01/17 00:00 97.8 87 18 149/71 94 12/31/16 21:40 Nasal Cannula 2.00 35 12/31/16 21:00 98.4 89 18 155/69 95 12/31/16 20:00 92 12/31/16 16:14 95 Nasal Cannula 2.00 12/31/16 16:00 98.0 85 20 136/65 96 12/31/16 15:02 78 I/O 12/31/16 12/31/16 12/31/16 01/01/17 01/01/17 01/01/17 07:00 15:00 23:00 07:00 15:00 23:00 Intake Total 480 ml 480 ml 200 ml Output Total 850 ml 900 ml 850 ml 1500 ml Balance -370 ml -420 ml -850 ml -1500 ml 200 ml Intake Oral 480 ml 480 ml Other 200 ml Output Urine Total 850 ml 900 ml 850 ml 1500 ml # Bowel Movements 2 3 Result Diagram: 01/01/17 0659 01/01/17 0659 Objective Remarks GENERAL: This is a well-nourished, well-developed patient, in no apparent distress. CARDIOVASCULAR: Regular rate and regular rhythm without murmurs, gallops, or rubs. RESPIRATORY: Clear to auscultation on right side, left lung with decreased breath sounds. No wheezing, rhonchi or murmur auscultated. GASTROINTESTINAL: Abdomen soft, non-tender, nondistended. Normal, active bowel sounds. PEG in place. MUSCULOSKELETAL: Extremities without clubbing, cyanosis, or edema. NEURO: Alert & Oriented x4 to person, place, time, situation. Moves all ext x4 Procedures 12/11- EGD- esophagitis, gastritis, duodenitis PEG placement Medications and IVs Current Medications Sodium Chloride (NS 1000 ml Inj) 1,000 ml @ 75 mls/hr [id number] IV Last administered on 12/06/16 05:59; Start 12/05/16 at 18:00; Stop 12/06/16 at 12:03 ; Status DC IV Flush (NS Flush) 2 ml UNSCH PRN FLUSH FLUSH AFTER USING IV ACCESS; Start at 17:00 IV Flush (NS Flush) 2 ml BID FLUSH Last administered on 01/01/17 13:10; Start 12/05/16 at 21:00 Ondansetron HCl (Zofran Inj) 4 mg Q6H PRN IVP NAUSEA OR VOMITING; Start at 18:00 Bisacodyl (Dulcolax Supp) 10 mg DAILY PRN DC CONSTIPATION; Start 12/05/16 at 18 :00 Docusate Sodium (Colace) 100 mg Q12H PO Last administered on 01/01/17 13:09; Start 12/05/16 at 18:00 Naloxone HCl (Narcan Inj) 0.4 mg UNSCH PRN IV SEE LABEL COMMENTS; Start at 17:00 Phenytoin (Dilantin) 300 mg BID PO Last administered on 12/07/16 20:57; Start 12/05/16 at 21:00; Stop 12/08/16 at 10:47; Status DC Terazosin HCl (Hytrin) 1 mg HS PO ; Start 12/05/16 at 21:00; Stop 12/05/16 at 21 :00; Status DC Enalaprilat (Vasotec Inj) 2.5 mg Q6H PRN IV PUSH SBP>160, DBP>90 Last administered on 12/24/16 07:19; Start 12/05/16 at 18:00; Stop 12/25/16 at 14:48; Status DC Ferrous Sulfate (Ferrous Sulfate Liq) 300 mg DAILY PO Last administered on 01/01 13:09; Start 12/06/16 at 09:00 Doxazosin Mesylate (Cardura) 8 mg HS PO Last administered on 12/25/16 21:22; Start 12/05/16 at 21:00; Stop 12/26/16 at 18:46; Status DC Atorvastatin Calcium (Lipitor) 40 mg HS PO Last administered on 12/31/16 21:27 ; Start 12/05/16 at 21:00 Furosemide (Lasix Liq) 40 mg DAILY TUBE Last administered on 12/20/16 08:50; Start 12/06/16 at 09:00; Status Hold Senna/Docusate Sodium (Jacinda-Colace) 2 tab BID PRN PO CONSTIPATION Last administered on 12/30/16 05:45; Start 12/05/16 at 19:45 Lactulose (Lactulose Liq) 30 ml TID PRN PO CONSTIPATION; Start 12/05/16 at 19: 45 Bisacodyl (Dulcolax Supp) 10 mg DAILY PRN DC CONSTIPATION; Start 12/05/16 at 19 :45; Status Cancel Magnesium Hydroxide (Milk Of Magnesia Liq) 30 ml Q6H PRN PO CONSTIPATION; Start 12/05/16 at 19:45 Furosemide 20 mg 20 mg ONCE ONCE IV PUSH ; Start 12/06/16 at 07:00; Stop at 07:01; Status DC Sodium Chloride (NS 250 ml Inj) 250 ml @ 15 mls/hr ONCE ONCE IV Last administered on 12/06/16 11:00; Start 12/06/16 at 08:45; Stop 12/07/16 at 01:24 ; Status DC Acetaminophen (Tylenol) 650 mg Q4H PRN PO SEE LABEL COMMENTS; Start 12/06/16 at 08:45; Stop 12/06/16 at 12:46; Status DC Diphenhydramine HCl (Benadryl) 25 mg Q4H PRN PO SEE LABEL COMMENTS; Start 12/06 at 08:45; Stop 12/06/16 at 12:46; Status DC Furosemide (Lasix Inj) 20 mg ONCE ONCE IV ; Start 12/06/16 at 08:45; Stop 12/06 at 08:46; Status DC Prednisone 20 mg 20 mg ONCE ONCE PO Last administered on 12/06/16 15:36; Start 12/06/16 at 13:00; Stop 12/06/16 at 13:01; Status DC Sodium Chloride (NS 1000 ml Inj) 1,000 ml @ 0 mls/hr Q0M PRN IV For Prime & Rinse Back Last administered on 12/12/16 09:33; Start 12/06/16 at 12:11 Heparin Sodium (Porcine) 8000 units 8,000 units UNSCH PRN IVF WITH DIALYSIS; Start 12/06/16 at 12:15 Sodium Chloride 1,000 ml @ 200 mls/hr Q5H PRN IV WITH DIALYSIS; Start 12/06/16 at 12:11 Sodium Chloride (NS 1000 ml Inj) 1,000 ml @ 0 mls/hr Q0M PRN IV WITH DIALYSIS; Start 12/06/16 at 12:11 Mannitol (Mannitol Inj) 12.5 gm UNSCH PRN IV WITH DIALYSIS; Start 12/06/16 at 12:15 Albumin Human (Albumin 25% Inj) 25 gm UNSCH PRN IV WITH DIALYSIS; Start at 12:15 IV Flush (NS Flush) 5 ml UNSCH PRN IVF WITH DIALYSIS; Start 12/06/16 at 12:15 Heparin Sodium (Porcine) (Heparin Inj) UNSCH PRN .XX WITH DIALYSIS Last administered on 12/14/16 16:39; Start 12/06/16 at 12:15 Gentamicin Sulfate (Gentamicin (Dialysis) Inj) 20 mg UNSCH PRN IV WITH DIALYSIS Last administered on 12/14/16 16:39; Start 12/06/16 at 12:15 Ondansetron HCl (Zofran Inj) 4 mg UNSCH PRN IV WITH DIALYSIS; Start 12/06/16 at 12:15 Acetaminophen (Tylenol) 650 mg UNSCH PRN PO for headach, pain, temp > 101F Last administered on 12/14/16 07:54; Start 12/06/16 at 12:15 Diphenhydramine HCl (Benadryl) 25 mg UNSCH PRN PO for hives/itching/anaphylaxis ; Start 12/06/16 at 12:15 Nitroglycerin (Nitrostat Sl) 0.4 mg UNSCH PRN SL CHEST PAIN; Start 12/06/16 at 12:15 Clonidine (Catapres) 0.1 mg UNSCH PRN PO for BP > 180/100 X 2 readings Last administered on 12/19/16 06:27; Start 12/06/16 at 12:15 Epoetin Blanco (Epogen Inj) 10,000 units UNSCH PRN IV WITH DIALYSIS Last administered on 12/14/16 16:39; Start 12/06/16 at 12:15 Gelatin (Gelfoam 12 Mm/7 Mm Top) 1 foam UNSCH PRN TOP SEE LABEL COMMENTS; Start 12/06/16 at 12:15 Furosemide (Lasix Inj) 20 mg ONCE ONCE IV Last administered on 12/07/16 00:18 ; Start 12/07/16 at 00:30; Stop 12/07/16 at 00:31; Status DC Megestrol Acetate (Megace Liq) 400 mg ONCE ONCE PO Last administered on 18:19; Start 12/07/16 at 14:00; Stop 12/07/16 at 14:01; Status DC Megestrol Acetate (Megace Liq) 400 mg DAILY PO Last administered on 01/01/17 13:10; Start 12/08/16 at 09:00 Heparin Sodium (Porcine) (Heparin Inj) 5,000 units Q12HR SQ Last administered on 12/31/16 21:27; Start 12/08/16 at 21:00; Status Hold Phenytoin 300 mg 300 mg Q12HR PO Last administered on 01/01/17 13:10; Start at 21:00 Iron Sucrose 100 mg/Sodium Chloride 105 ml @ 105 mls/hr DAILY IV Last administered on 12/09/16 10:24; Start 12/09/16 at 09:00; Stop 12/11/16 at 09:59 ; Status DC Cefazolin Sodium/ Sodium Chloride (Ancef Inj/NS Inj) 100 ml @ 200 mls/hr SHELL GRADER IV ; Start 12/10/16 at 13:30; Stop 12/13/16 at 13:29; Status DC Cefazolin Sodium (Ancef Inj) 1,000 mg STK-MED ONCE IV Last administered on 12/11 10:37; Start 12/11/16 at 10:37; Stop 12/11/16 at 11:05; Status DC Propofol (Diprivan 200 Mg/20 ml Inj) 150 mg STK-MED ONCE IV ; Start 12/11/16 at 10:40; Stop 12/11/16 at 11:10; Status DC Levofloxacin (Levaquin) 250 mg Q48H PO Last administered on 12/17/16 16:45; Start 12/11/16 at 16:00; Stop 12/18/16 at 09:37; Status DC Phenylephrine HCl (Neosynephrine/ NS 1000 Mcg/10ml Syr) 100 mcg STK-MED ONCE IV ; Start 12/11/16 at 10:45; Stop 12/13/16 at 13:03; Status DC Fluconazole 100 mg 100 mg DAILY PO Last administered on 12/22/16 08:03; Start 12/16/16 at 11:30; Stop 12/22/16 at 12:06; Status DC Pharmacy Profile Note ([facility]) 0 ml @ 0 mls/hr UNSCH OTHER ; Start 12/16/16 at 11:30; Stop 12/16/16 at 14:18; Status DC Potassium Phosphate (K-Phos) 500 mg ONCE ONCE PO Last administered on 10:08; Start 12/18/16 at 09:00; Stop 12/18/16 at 09:01; Status DC Amlodipine Besylate (Norvasc) 5 mg DAILY PO Last administered on 12/19/16 08: 45; Start 12/18/16 at 11:00; Stop 12/19/16 at 09:45; Status DC Fluticasone Propionate (Flonase Evan Spr) 2 spray DAILY EACH NARE Last administered on 01/01/17 13:13; Start 12/18/16 at 12:00 Potassium Chloride (KCl) 30 meq ONCE ONCE PO Last administered on 12/19/16 11 :33; Start 12/19/16 at 09:00; Stop 12/19/16 at 10:37; Status DC Nifedipine (Procardia Xl) 30 mg DAILY PO Last administered on 12/24/16 08:37; Start 12/20/16 at 09:00; Stop 12/24/16 at 15:25; Status DC Calcium Acetate 667 mg 667 mg TID PO Last administered on 01/01/17 13:22; Start 12/20/16 at 09:00 Sodium Chloride 1,000 ml @ 75 mls/hr [id number] IV ; Start 12/20/16 at 09:00; Stop 12/20/16 at 09:47; Status DC Sodium Chloride (1/2 NS 1000 ml Inj) 1,000 ml @ 65 mls/hr [id number] IV Last administered on 12/24/16 21:10; Start 12/20/16 at 10:00; Status Hold Potassium Chloride (KCl) 30 meq ONCE ONCE PO Last administered on 12/23/16 12: 04; Start 12/23/16 at 10:45; Stop 12/23/16 at 10:46; Status DC Nifedipine (Procardia Xl) 60 mg DAILY PO Last administered on 12/26/16 09:19; Start 12/25/16 at 09:00; Stop 12/26/16 at 18:46; Status DC Bumetanide (Bumex Inj) 1 mg ONCE ONCE IV PUSH Last administered on 12/25/16 10 :41; Start 12/25/16 at 10:15; Stop 12/25/16 at 10:22; Status DC Doxazosin Mesylate (Cardura) 2 mg DAILY PO Last administered on 12/26/16 09:20 ; Start 12/25/16 at 10:15; Stop 12/26/16 at 18:25; Status DC Pantoprazole Sodium (Protonix Inj) 40 mg Q24H IV PUSH ; Start 12/25/16 at 10:15; Stop 12/25/16 at 10:17; Status DC Pantoprazole Sodium (Protonix) 40 mg DAILY PO Last administered on 01/01/17 13 :09; Start 12/25/16 at 10:30 Miscellaneous Information Patient in critical care unit? Ass... [id number] .XX Last administered on 12/25/16 22:30; Start 12/25/16 at 22:30 Chlorhexidine Gluconate (Chlorhexidine 2% Cloth) 3 pack DAILY@04 TOPICAL Last administered on 12/30/16 04:00; Start 12/26/16 at 04:00; Stop 12/30/16 at 04:01 ; Status DC Chlorhexidine Gluconate (Chlorhexidine 2% Cloth) 3 pack UNSCH PRN TOPICAL HYGIENIC CARE; Start 12/25/16 at 22:30; Stop 12/30/16 at 22:25; Status DC Potassium Chloride (KCl Powder) 40 meq NOW ONCE PEG Last administered on 17:00; Start 12/26/16 at 17:00; Stop 12/26/16 at 17:01; Status DC Doxazosin Mesylate (Cardura) 4 mg DAILY PO ; Start 12/27/16 at 09:00; Stop at 09:00; Status DC Doxazosin Mesylate (Cardura) 10 mg HS PO Last administered on 12/31/16 21:27; Start 12/26/16 at 21:00 Nifedipine (Procardia Xl) 90 mg DAILY PO Last administered on 01/01/17 13:09; Start 12/27/16 at 09:00 Miscellaneous (Pill Splitter) 1 ea UNSCH PRN OTHER SEE LABEL COMMENTS Last administered on 12/27/16 10:33; Start 12/26/16 at 19:00 Doxazosin Mesylate (Cardura) 2 mg DAILY PO Last administered on 12/28/16 11:33 ; Start 12/28/16 at 10:00; Stop 12/28/16 at 16:56; Status DC Albuterol/ Ipratropium (Duoneb Neb) 1 ampule Q6HR NEB NEB Last administered on 12/31/16 21:46; Start 12/28/16 at 16:00 Albuterol/ Ipratropium (Duoneb Neb) 1 ampule Q2HR NEB PRN NEB SHORTNESS OF BREATH; Start 12/28/16 at 13:00 Doxazosin Mesylate (Cardura) 4 mg DAILY PO ; Start 12/29/16 at 09:00; Stop at 09:00; Status DC Doxazosin Mesylate (Cardura) 4 mg DAILY PO Last administered on 01/01/17 13:09 ; Start 12/29/16 at 09:00 Potassium Chloride (KCl) 20 meq ONCE ONCE PO Last administered on 12/29/16 12: 44; Start 12/29/16 at 10:00; Stop 12/29/16 at 10:01; Status DC Polyethylene Glycol/ Electrolytes (Colyte Liq) 4,000 ml ONCE ONCE PO Last administered on 12/31/16 18:33; Start 12/31/16 at 16:00; Stop 12/31/16 at 16:01 ; Status DC Polyethylene Glycol/ Electrolytes (Colyte Liq) 4,000 ml ONCE ONCE PO ; Start at 16:00; Stop 12/31/16 at 16:00; Status DC Propofol (Diprivan 200 Mg/20 ml Inj) 350 mg STK-MED ONCE IV ; Start 01/01/17 at 11:38; Stop 01/01/17 at 12:24; Status DC Date of Insertion: Nov 15, 2016 A/P Assessment and Plan 1. Squamous cell carcinoma of the lung: -s/p stent placement in the left main bronchus at [facility]. s/p extubation. -Oncologist and Radiation oncology ff recommend radiation therapy was recommended. which most likely start next week need approximately over 6 weeks of treatment. 2. Acute kidney injury: -Active renal failure ATN due to PEA arrest. s/p hemodialysis last treatment was on 12/17/16. -Currently on IV fluids as per renal recommendations and renal function is improving. Lasix on hold since patient has a good urine output. -IV Fluids held. sp IV Bumex with excellent urine output. -Continue to monitor BUN/creatinine, strict I's and O's and avoid nephrotoxic medications. 3. Hypertension: -Blood pressure uncontrolled versus only with elevated blood pressure into the systolic 160s. -BP much improved and seems to be stable. Continue procardia 90 mg daily and Cardura 10 mg at bedtime and 4 mg in am. Continue clonidine prn. 4. Hypokalemia: -Resolved. Continue to monitor BMP and replace as needed. 5. BPH: -On doxazosin. 6. Bladder mass: -Urologist consulted. Possible cystoscopy in the past. 7. Acute respiratory failure: -IMPROVED. -CXR showed due to left hemothorax unchanged and Echocardiogram 55-60%. Continue supplemental O2 to keep o2 sat > 92%. -pulm is ff. 8. Klebsiella pneumonia: -Bronchus sputum positive for Klebsiella, treated at [facility] and finish course of antibiotics as per previous records. Blood cultures was negative. 9. Iron deficiency anemia: -Low iron stores. Patient is status post EGD which found gastritis, duodenitis and esophagitis being treated with PPI. -repeat EGD today showed esophagitis and colonoscopy showed 2 polyps. 10. Severe protein calorie malnutrition: - Albumin 1.7 on admission. s/p PEG placement on 03/22/17. Status post IV iron treatment. -Pt tolerating Nocturnal TF'ing 6p to 6a. TF'ing held, for Dilantin dosing(one hour before and one hour after dosing). Continue Nepro oral supplement bid. Continue tube feedings with tray. -on megace. Left upper extremity superficial thrombophlebitis: - Much improved. Treat with warm compresses. 11. UTI: -Culture grew Nisa. Status post treatment. 12. Seizure disorder: -stable. Continue Dilantin. Seizure precautions. 13. DVT prophylaxis: SCDs, heparin subcutaneously SQ. Deconditioned. -PT/OT Discharge Planning Per Oncologist currently considering hospice level of care versus disease directed therapy. Poor prognosis. Oly Cross MD Jan 01, 2017 14:24
--- NOTE | 2017-01-01 15:07 | HHI.GIFU ---
Subjective Remarks Pt had EGD/colonoscopy this morning. He feels okay, he is hungry. No n/v. ( Abbi Solis) Objective Vitals I&O Vital Signs Date Time Temp Pulse Resp B/P Pulse Ox O2 Delivery O2 Flow Rate FiO2 01/01/17 12:40 89 16 149/73 93 01/01/17 12:30 90 18 148/69 93 01/01/17 12:20 98.6 91 16 123/66 95 01/01/17 11:50 98.0 86 20 186/85 99 01/01/17 09:15 97.8 85 16 170/82 98 01/01/17 07:50 98.7 90 20 188/84 99 01/01/17 04:00 98.4 81 18 158/76 97 01/01/17 00:00 97.8 87 18 149/71 94 12/31/16 21:40 Nasal Cannula 2.00 35 12/31/16 21:00 98.4 89 18 155/69 95 12/31/16 20:00 92 12/31/16 16:14 95 Nasal Cannula 2.00 12/31/16 16:00 98.0 85 20 136/65 96 12/31/16 15:02 78 I/O 12/31/16 12/31/16 12/31/16 01/01/17 01/01/17 01/01/17 07:00 15:00 23:00 07:00 15:00 23:00 Intake Total 480 ml 480 ml 200 ml Output Total 850 ml 900 ml 850 ml 1500 ml Balance -370 ml -420 ml -850 ml -1500 ml 200 ml Intake Oral 480 ml 480 ml Other 200 ml Output Urine Total 850 ml 900 ml 850 ml 1500 ml # Bowel Movements 2 3 Laboratory Laboratory Tests Test 01/01/17 06:59 White Blood Count 12.5 Red Blood Count 3.18 Hemoglobin 8.9 Hematocrit 27.8 Mean Corpuscular Volume 87.6 Mean Corpuscular Hemoglobin 27.9 Mean Corpuscular Hemoglobin 31.9 Concent Red Cell Distribution Width 15.3 Platelet Count 390 Mean Platelet Volume 7.0 Sodium Level 140 Potassium Level 4.0 Chloride Level 100 Carbon Dioxide Level 27.6 Anion Gap 12 Blood Urea Nitrogen 117 Creatinine 3.51 Estimat Glomerular Filtration 17 Rate Random Glucose 89 Calcium Level 8.4 Imaging Last Impressions Chest X-Ray 12/25/16 0000 Signed Impressions: Service Date/Time: Sunday, December 25, 2016 08:59 - CONCLUSION: 1. Complete opacification of the left hemithorax unchanged from previous. 2. 4.5 cm masslike density on the right which appears to be fluid loculated in the fissure. This is decreased in size when compared to previous. 3. Dialysis catheter in good position. Patrick Shelton MD Upper Extremity Ultrasound 12/11/16 1506 Signed Impressions: Service Date/Time: Sunday, December 11, 2016 18:00 - CONCLUSION: Superficial thrombophlebitis, extensive edema and nonspecific fluid collections in the subcutaneous tissues. Shawn Reyes MD Head CT 12/11/16 0000 Signed Impressions: Service Date/Time: Sunday, December 11, 2016 20:00 - CONCLUSION: Slight atrophic and small vessel ischemic changes without any evidence for acute hemorrhage or mass effect. Shawn Reyes MD Renal Ultrasound 12/09/16 0000 Signed Impressions: Service Date/Time: Friday, December 09, 2016 15:16 - CONCLUSION: 1. 8.4 cm mass lesion at the base of the bladder. This may represent an intrinsic mass of the bladder versus a prominent anterior lobe of the prostate. 2. Otherwise, urinary bladder is partially decompressed with a Lipscomb catheter. 3. Both kidneys are sonographically normal. Roby Horta MD Physical Exam HEENT: Normocephalic; atraumatic; no jaundice. CHEST: Resp. shallow/even, course breath sounds CARDIAC: RRR ABDOMEN: Soft, nondistended, nontender; bowel sounds are present in all four quadrants. PEG tube site without redness or swelling EXTREMITIES: no cyanosis, clubbing, edema REGISTERED NURSE NURSERY: No focal deficits; lethargic and oriented times three. 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 s/p EGD w/ colonoscopy today. EGD found esophagitis, PEG good position, normal otherwise. Cscope report pending. HH on arrival was 6.6/20.0. He was given 2 units of PRBC. He is not having any obvious GI bleeding at this time. Other than decreased appetite, he denies any GI symptoms. He last had an EGD and colonoscopy was about 4-5 years ago at the [facility] and reports that he had a colon polyp removed at that time. Iron 25, TIBC 197, TIBC 197, Iron saturation 12.7. Getting iron transfusions and PPI. S/P EGD with PEG tube placement (12/11/16)----> A hiatal hernia, gastritis antrum-biopsy, esophagitis distal esophagus-biopsy s/p peg placement. Pathology with acute nonspecific duodenitis/ileitis, gastric antral mucosal biopsy without significant histopathologic abnormality negative for gastritis, gastropathy, metaplasia and dysplasia, esophageal mucosal biopsy with eosinophilic esophagitis consistent with reflux. Plan was for colonoscopy once he was stronger and could tolerate prep. 8.9/27.8. Epogen. - Protein calorie malnutrition. S/P PEG, site without redness or swelling. Also taking po. 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 Patient was hospitalized at this facility last month after developing shortness of breath and significant hemoptysis. He required mechanical ventilation. He was evaluated by CVT and then transferred to the [facility] in [place]. He was evaluated by Interventional pulmonology and underwent a bronchoscopy with debulking of a large mass involving the left mainstem bronchus. The left main bronchus was stented. He is being followed by oncology. - Acute renal failure, HD per renal. - Severe deconditioning. Pt has had a prolonged hospitalization, complicated by PEA arrest on 11/08/16. ST/OT/PT PLAN: - May resume TF per primary - PPI - Epogen - Monitor H&H - Transfuse as necessary - Supportive care - Pt seen and examined by Dr. Clemens and myself and this note is written on his behalf (Abbi Solis) Physician Comments patient was seen and examined, agree with above note, we will repeat prep and do colonoscopy in am since he had poor prep. (Rasheed Clemens MD) Abbi Solis Jan 01, 2017 15:07 Rasheed Clemens MD Jan 01, 2017 18:23
--- NOTE | 2017-01-01 15:13 | HHI.NPPN ---
Subjective General Problems: Anemia, Edema Renal Failure: Acute History of Present Illness 71 y/o male pt. Transferred to [facility] from [facility] with renal failure from possible ATN. Interval History Renal function is better today. Had colonoscopy today. no current complaints. ( Marina Mcgovern) Review of Systems General Constitutional: Fatigue General Remarks generalized weakness (Marina Mcgovern) Objective Data Data 12/31/16 01/01/17 19:00 07:00 Intake Total 480 ml Output Total 900 ml 2350 ml Balance -420 ml -2350 ml Intake Oral 480 ml Output Urine Total 900 ml 2350 ml # Bowel Movements 5 Vital Signs Date Time Temp Pulse Resp B/P Pulse Ox O2 Delivery O2 Flow Rate FiO2 01/01/17 12:40 89 16 149/73 93 01/01/17 12:30 90 18 148/69 93 01/01/17 12:20 98.6 91 16 123/66 95 01/01/17 11:50 98.0 86 20 186/85 99 01/01/17 09:15 97.8 85 16 170/82 98 01/01/17 07:50 98.7 90 20 188/84 99 01/01/17 04:00 98.4 81 18 158/76 97 01/01/17 00:00 97.8 87 18 149/71 94 12/31/16 21:40 Nasal Cannula 2.00 35 12/31/16 21:00 98.4 89 18 155/69 95 12/31/16 20:00 92 12/31/16 16:14 95 Nasal Cannula 2.00 12/31/16 16:00 98.0 85 20 136/65 96 (Marina Mcgovern) -: 01/01/17 0659 01/01/17 0659 Tubes & Lines: Miranda Tubes & Lines Comment PEG, (Marina Mcgovern) Physical Exam General Appearance: Well Developed, Well Nourished, No Acute Distress, Comfortable ( Marina Mcgovern) Eyes Eye Exam: Pupils Equal, Pupils Reactive (Marina Mcgovern) Throat Throat Exam: Oral Mucosa [place] & Moist (Marina Mcgovern) Pulmonary Resp Exam: Breath Sounds Equal, No Distress, Decreased Bases, Diminished Breath Sounds (Marina McgovernP) Cardiology CV Exam: Regular, Normal Sinus Rhythm, Good Perfusion, Murmur (Marina McgovernP) Gastrointestinal/Abdomen GI Exam: Soft, Non-Tender, Bowel Sounds Present, Positive Bowel Movement ( Marina McgovernP) Genitourinary Exam: Clear Urine (Marina McgovernP) Musculoskeletal MS Exam: Joints Intact, Atrophy, Unable to Ambulate (Marina Mcgovern GREY WASHER) Integumentary Skin Exam: Clear, Warm, Dry, Intact (Marina Mcgovern GREY WASHER) Extremeties Extremities Exam: No Edema, Pedal Pulses Palpable (Marina Mcgovern GREY WASHER) Neurologic Neuro Exam: Alert, Awake, Oriented, Speech Clear, Moving All Extremities ( Marina McgovernP) Psychiatric Psych Exam: Appropriate Responses (Marina Mcgovern) Assessment/Plan Discussed Condition With: Patient, Son Assessment Summary: TODD/Acute Renal Failure, Acute Tubular Necrosis Problem List: (1) Acute renal failure Plan: He had creatinine 0.77 in October Renal failure ATN due to PEA arrest HD started around 11/08 has been on hold with last treatment 12/17 he appears to be in renal recovery creatinine is slowly improving ; BUN began to improve as of today but remains disproportionately elevated GI has performed scope to determine if he has GIB he has excellent urine output, miranda remains in place he is off IVF avoid nephrotoxins daily renal panel we will remove Permcath this week if renal function continues to improve (2) Anemia Plan: Hb low but stable hematology/oncology following given a dose of epogen Hemoccult positive , GI following (3) Bronchiolar obstruction Plan: s/p stent placement, dx of squamous cell carcinoma med oncology following (4) Mass of left lung Plan: oncology has evaluated, appreciate their recommendations he is unstable for systemic treatment at this time he was to have radiation therapy, however hospice was recommended and the patient declined, he is still interested in radiation (5) Acute respiratory failure Plan: extubated, on nasal cannula continuous speech therapy has signed off (6) Bladder mass Plan: urology following, bladder US report noted he will need cystoscopy with TURBT when more stable (7) UTI (urinary tract infection) Plan: resolved, off antibiotics remove miranda when evaluated by urology given bladder mass (Marina Mcgovern) Plan patient was seen and examined. Renal function is better. No need for dialysis. PermCath can be removed in 1-2 days. (Willian Borjas MD) Problem Qualifiers (1) UTI (urinary tract infection): Marina Mcgovern Jan 01, 2017 15:12 Willian Borjas MD Jan 02, 2017 11:24
[2017-01-01] MEDS ORDERED: PEG (High)/E-LYTE SOLN 4000 ML BTL PO ONE (18:30)
--- NOTE | 2017-01-01 19:18 | HHI.PR ---
Subjective Remarks Patient is on 2L oxygen with good sats. Afebrile. Anxious to have radiation started had EGD, has esophagitis Objective Vital Signs Vital Signs Date Time Temp Pulse Resp B/P Pulse Ox O2 Delivery O2 Flow Rate FiO2 01/01/17 15:38 90 Nasal Cannula 21 01/01/17 12:40 89 16 149/73 93 01/01/17 12:30 90 18 148/69 93 01/01/17 12:20 98.6 91 16 123/66 95 01/01/17 11:50 98.0 86 20 186/85 99 01/01/17 09:15 97.8 85 16 170/82 98 01/01/17 08:00 94 Room Air 01/01/17 07:50 98.7 90 20 188/84 99 01/01/17 04:00 98.4 81 18 158/76 97 01/01/17 00:00 97.8 87 18 149/71 94 12/31/16 21:40 Nasal Cannula 2.00 35 12/31/16 21:00 98.4 89 18 155/69 95 12/31/16 20:00 92 I/O 12/31/16 12/31/16 12/31/16 01/01/17 01/01/17 01/01/17 07:00 15:00 23:00 07:00 15:00 23:00 Intake Total 480 ml 480 ml 200 ml Output Total 850 ml 900 ml 850 ml 1500 ml Balance -370 ml -420 ml -850 ml -1500 ml 200 ml Intake Oral 480 ml 480 ml Other 200 ml Output Urine Total 850 ml 900 ml 850 ml 1500 ml # Bowel Movements 2 3 Result Diagram: 01/01/17 0659 01/01/17 0659 Objective Remarks GENERAL: Patient is lying in bed in NAD SKIN: Warm and dry. HEAD: Normocephalic. EYES: No scleral icterus. No injection or drainage. NECK: Supple, trachea midline. No JVD or lymphadenopathy. CARDIOVASCULAR: Regular rate and rhythm without murmurs, gallops, or rubs. RESPIRATORY: Breath sounds equal bilaterally. No accessory muscle use. GASTROINTESTINAL: Abdomen soft, non-tender, nondistended. MUSCULOSKELETAL: No cyanosis, or edema. BACK: Nontender without obvious deformity. No CVA tenderness. 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 Patient underwent radiation simulation on 12/23/16. XRT will possibly start next week . Heme Onc is following Monitor renal function, avoid nephrotoxins, Renal is following. HD per renal. Weaned to Valeriy Lozano MD Jan 01, 2017 19:18
[2017-01-01] MEDS: ATORVASTATIN 40 MG TAB PO SCH (20:12)
[2017-01-02] VITALS (7 sets, daily range): BP systolic 153–184; BP diastolic 69–88; PULSE 88–96; RESP 16–20; TEMP 97.2–99.2; O2SAT 91–94
[2017-01-02] MEDS: DOCUSATE SODIUM 100 MG CAP PO SCH ×3 (06:00→17:41)
[2017-01-02 06:43] LABS: HEMATOCRIT 26.8 % (39.0-51.0); MEAN CELL VOLUME 88.4 FL (80.0-100.0); MEAN CORPUSCULAR HEMOGLOBIN 29.9 PG (27.0-34.0); MEAN CORPUSCULAR HGB CONC 33.8 % (32.0-36.0); PLATELET COUNT 404 TH/MM3 (150-450); RED BLOOD COUNT 3.03 MIL/MM3 (4.50-5.90); RED CELL DISTRIBUTION WIDTH 15.1 % (11.6-17.2); REVIEW FLAG FINAL
[2017-01-02 07:39] LABS: BICARBONATE 23.5 MEQ/L (21.0-32.0); POTASSIUM 3.5 MEQ/L (3.5-5.1)
[2017-01-02] MEDS: CALCIUM ACETATE 667 MG CAP PO SCH ×3 (07:48→17:41)
[2017-01-02] MEDS: FERROUS SULFATE 300 MG /5ML UDC PO SCH (07:48)
[2017-01-02] MEDS: DOXAZOSIN MESYLATE 4 MG TAB PO SCH ×2 (07:48→19:51)
[2017-01-02] MEDS: PANTOPRAZOLE SOD 40 MG DELAYED RELEASE TAB PO SCH (07:49)
[2017-01-02] MEDS: NIFEdipine 90 MG SUSTAINED RELEASE TAB PO SCH (07:49)
[2017-01-02] MEDS: FLUTICASONE PROPIONATE 50 MCG/ACT 16 GM NASAL SPRAY EACH NARE SCH (07:49)
[2017-01-02] MEDS: MEGESTROL ACETATE SUSP 400 MG/10 ML CUP PO SCH (07:49)
[2017-01-02] MEDS: SODIUM CHLORIDE 0.9% FLUSH 5 ML FLUSH FLUSH SCH ×2 (07:50→19:52)
[2017-01-02] MEDS: PHENYTOIN SUSP 100 MG/4 ML CUP PO SCH ×2 (07:53→19:51)
--- NOTE | 2017-01-02 10:43 | GIPROC ---
[facility] [address] [facility]. [facility], [id number] COLONOSCOPY PROCEDURE REPORT EXAM DATE: 01/02/2017 PATIENT NAME: Eveline Jaime MR #: [id number] BIRTHDATE: 1945 ENDOSCOPIST: Rasheed Clemens MD ORDER #: [id number] MAINTAINER [employer]: Jaki Fang and Graham Miller STATUS: inpatient INDICATIONS: The patient is a 71 yr old male here for a colonoscopy due to high risk patient with personal history of colonic polyps, poor prep from yesterday, and anemia, non-specific PROCEDURE PERFORMED: Colonoscopy with polypectomy MEDICATIONS: None and Per Anesthesia. PREP QUALITY: good ESTIMATED BLOOD LOSS: None CONSENT: The patient understands the risks and benefits of the procedure and understands that these risks include, but are not limited to: sedation, allergic reaction, infection, perforation and/or bleeding. Alternative means of evaluation and treatment include, among others: physical exam, x-rays, and/or surgical intervention. The patient elects to proceed with this endoscopic procedure. medical equipment was checked for proper function. Hand hygiene and appropriate measures for infection prevention was taken. After the risks, benefits and alternatives of the procedure were thoroughly explained, Informed consent was verified, confirmed and timeout was successfully executed by the treatment team. A digital exam revealed no abnormalities of the rectum The New [id number] (Std Gastro) endoscope was introduced through the anus and advanced to the cecum, which was identified by both the appendix and ileocecal valve. The instrument was then slowly withdrawn as the colon was fully examined. COLON FINDINGS: 1 cm polyp in the descending colon removed by snare. Old tatto in the ascending colon. The colon mucosa was otherwise normal. Retroflexed views revealed no abnormalities, Retroflexed views revealed internal hemorrhoids, and Retroflexed views revealed medium internal hemorrhoids The scope was then completely withdrawn from the patient and the procedure terminated. ADVERSE EVENTS: There were no complications. IMPRESSIONS: 1. 1 cm polyp in the descending colon removed by snare 2. Old tatto in the ascending colon 3. The colon mucosa was otherwise normal 4. Retroflexed views revealed no abnormalities 5. Retroflexed views revealed internal hemorrhoids 6. Retroflexed views revealed medium internal hemorrhoids 7. Revealed no abnormalities of the rectum RECOMMENDATIONS: 1. Await biopsy results. Biopsy results will not be ready for 7-10 days. If you don't hear from us in two weeks, call our office for results. 2. Yearly hemoccult 3. High fiber diet RECALL: Return 3 years Colonoscopy Rasheed Clemens MD eSigned: Rasheed Clemens MD 01/02/2017 10:43 AM cc:
--- NOTE | 2017-01-02 10:45 | HHI.GIFU ---
Subjective Remarks doing well, tolerated prep Objective Vitals I&O Vital Signs Date Time Temp Pulse Resp B/P Pulse Ox O2 Delivery O2 Flow Rate FiO2 01/02/17 10:30 Room Air 2.00 21 01/02/17 09:50 98.5 88 16 170/81 93 01/02/17 07:50 98.0 93 20 184/85 93 01/02/17 04:00 98.5 88 18 170/81 93 01/02/17 00:00 98.3 89 18 154/73 92 01/01/17 20:06 89 01/01/17 20:04 92 21 01/01/17 20:00 98.7 96 18 145/69 94 01/01/17 15:50 97.4 97 20 150/70 97 01/01/17 15:38 90 Nasal Cannula 21 01/01/17 12:40 89 16 149/73 93 01/01/17 12:30 90 18 148/69 93 01/01/17 12:20 98.6 91 16 123/66 95 01/01/17 11:50 98.0 86 20 186/85 99 I/O 01/01/17 01/01/17 01/01/17 01/02/17 01/02/17 01/02/17 07:00 15:00 23:00 07:00 15:00 23:00 Intake Total 740 ml Output Total 1500 ml 1850 ml 2650 ml Balance -1500 ml -1110 ml -2650 ml Intake Oral 540 ml Other 200 ml Output Urine Total 1500 ml 1850 ml 2650 ml # Bowel Movements 3 0 2 4 Laboratory Laboratory Tests Test 01/02/17 06:16 White Blood Count 12.0 Red Blood Count 3.03 Hemoglobin 9.1 Hematocrit 26.8 Mean Corpuscular Volume 88.4 Mean Corpuscular Hemoglobin 29.9 Mean Corpuscular Hemoglobin 33.8 Concent Red Cell Distribution Width 15.1 Platelet Count 404 Mean Platelet Volume 7.0 Sodium Level 140 Potassium Level 3.5 Chloride Level 101 Carbon Dioxide Level 23.5 Anion Gap 16 Blood Urea Nitrogen 95 Creatinine 3.12 Estimat Glomerular Filtration 20 Rate Random Glucose 76 Calcium Level 8.6 Physical Exam HEENT: Normocephalic; atraumatic; no jaundice. CHEST: Resp. shallow/even, course breath sounds CARDIAC: RRR ABDOMEN: Soft, nondistended, nontender; bowel sounds are present in all four quadrants. PEG tube site without redness or swelling EXTREMITIES: no cyanosis, clubbing, edema SURETY BOND AGENT: No focal deficits; lethargic and oriented times three. Generalized weakness Assessment and Plan Plan ASSESSMENT: - Iron Deficiency Anemia with Hemoccult positive stool. s/p EGD w/ colonoscopy today. EGD found esophagitis, PEG good position, normal otherwise. Cscope report pending. HH on arrival was 6.6/20.0. He was given 2 units of PRBC. He is not having any obvious GI bleeding at this time. Other than decreased appetite, he denies any GI symptoms. He last had an EGD and colonoscopy was about 4-5 years ago at the [facility] and reports that he had a colon polyp removed at that time. Iron 25, TIBC 197, TIBC 197, Iron saturation 12.7. Getting iron transfusions and PPI. S/P EGD with PEG tube placement (12/11/16)----> A hiatal hernia, gastritis antrum-biopsy, esophagitis distal esophagus-biopsy s/p peg placement. Pathology with acute nonspecific duodenitis/ileitis, gastric antral mucosal biopsy without significant histopathologic abnormality negative for gastritis, gastropathy, metaplasia and dysplasia, esophageal mucosal biopsy with eosinophilic esophagitis consistent with reflux. Plan was for colonoscopy once he was stronger and could tolerate prep. 8.9/27.8. Epogen. - Protein calorie malnutrition. S/P PEG, site without redness or swelling. Also taking po. 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 Patient was hospitalized at this facility last month after developing shortness of breath and significant hemoptysis. He required mechanical ventilation. He was evaluated by CVT and then transferred to the [facility] in [place]. He was evaluated by Interventional pulmonology and underwent a bronchoscopy with debulking of a large mass involving the left mainstem bronchus. The left main bronchus was stented. He is being followed by oncology. - Acute renal failure, HD per renal. - Severe deconditioning. Pt has had a prolonged hospitalization, complicated by PEA arrest on 11/08/16. ST/OT/PT 05-04-17 doing well, good prep colon showed one polyp removed. PLAN: - May resume TF per primary - PPI - Epogen - Monitor H&H - Transfuse as necessary - Supportive care - capsule endoscopy as outpatient - we will FU as needed. Rasheed Clemens MD Jan 02, 2017 10:45
[2017-01-02] MEDS ORDERED: PROPOFOL 200 MG/20 ML AMP IV ONE (11:11)
[2017-01-02] MEDS ORDERED: PHENYLEPH/NS 1000 MCG/10 ML SYR IV ONE (12:00)
--- NOTE | 2017-01-02 14:55 | HHI.PR ---
Subjective Remarks patient denies cp/sob denies abdominal pain or nausea denies fevers/chills Objective Vitals Vital Signs Date Time Temp Pulse Resp B/P Pulse Ox O2 Delivery O2 Flow Rate FiO2 01/02/17 11:50 98.1 93 20 153/69 91 01/02/17 11:05 94 16 127/65 98 01/02/17 10:55 93 16 122/63 98 01/02/17 10:45 97.8 92 16 116/63 99 01/02/17 10:30 Room Air 2.00 21 01/02/17 09:50 98.5 88 16 170/81 93 01/02/17 07:50 98.0 93 20 184/85 93 01/02/17 04:00 98.5 88 18 170/81 93 01/02/17 00:00 98.3 89 18 154/73 92 01/01/17 20:06 89 01/01/17 20:04 92 21 01/01/17 20:00 98.7 96 18 145/69 94 01/01/17 15:50 97.4 97 20 150/70 97 01/01/17 15:38 90 Nasal Cannula 21 I/O 01/01/17 01/01/17 01/01/17 01/02/17 01/02/17 01/02/17 07:00 15:00 23:00 07:00 15:00 23:00 Intake Total 740 ml 300 ml Output Total 1500 ml 1850 ml 2650 ml Balance -1500 ml -1110 ml -2650 ml 300 ml Intake Oral 540 ml Other 200 ml 300 ml Output Urine Total 1500 ml 1850 ml 2650 ml # Bowel Movements 3 0 2 4 Result Diagram: 01/02/17 0616 01/02/17 0616 Imaging Last Impressions Chest X-Ray 12/25/16 0000 Signed Impressions: Service Date/Time: Sunday, December 25, 2016 08:59 - CONCLUSION: 1. Complete opacification of the left hemithorax unchanged from previous. 2. 4.5 cm masslike density on the right which appears to be fluid loculated in the fissure. This is decreased in size when compared to previous. 3. Dialysis catheter in good position. Patrick Shelton MD Upper Extremity Ultrasound 12/11/16 1506 Signed Impressions: Service Date/Time: Sunday, December 11, 2016 18:00 - CONCLUSION: Superficial thrombophlebitis, extensive edema and nonspecific fluid collections in the subcutaneous tissues. Shawn Reyes MD Head CT 12/11/16 0000 Signed Impressions: Service Date/Time: Sunday, December 11, 2016 20:00 - CONCLUSION: Slight atrophic and small vessel ischemic changes without any evidence for acute hemorrhage or mass effect. Shawn Reyes MD Renal Ultrasound 12/09/16 0000 Signed Impressions: Service Date/Time: Friday, December 09, 2016 15:16 - CONCLUSION: 1. 8.4 cm mass lesion at the base of the bladder. This may represent an intrinsic mass of the bladder versus a prominent anterior lobe of the prostate. 2. Otherwise, urinary bladder is partially decompressed with a Lipscomb catheter. 3. Both kidneys are sonographically normal. Roby Horta MD Objective Remarks GENERAL: This is a well-nourished, well-developed patient, in no apparent distress. CARDIOVASCULAR: Regular rate and regular rhythm without murmurs, gallops, or rubs. RESPIRATORY: Clear to auscultation on right side, left lung with decreased breath sounds. No wheezing, rhonchi or murmur auscultated. GASTROINTESTINAL: Abdomen soft, non-tender, nondistended. Normal, active bowel sounds. PEG c/d/i MUSCULOSKELETAL: Extremities without clubbing, cyanosis, or edema. NEURO: Alert & Oriented x4 to person, place, time, situation. Moves all ext x4 Procedures 12/11- EGD- esophagitis, gastritis, duodenitis PEG placement Medications and IVs Current Medications Medications (Trade) Dose Ordered Sig/Luis Carlos Route Start Time Stop Time Status Last Admin (NS Flush) 2 ml UNSCH PRN FLUSH 12/05/16 17:00 (NS Flush) 2 ml BID FLUSH 12/05/16 21:00 01/02/17 07:50 (Zofran Inj) 4 mg Q6H PRN IVP 12/05/16 18:00 (Dulcolax Supp) 10 mg DAILY PRN MD 12/05/16 18:00 (Colace) 100 mg Q12H PO 12/05/16 18:00 01/02/17 07:49 (Narcan Inj) 0.4 mg UNSCH PRN IV 12/05/16 17:00 (Ferrous Sulfate Liq) 300 mg DAILY PO 12/06/16 09:00 01/02/17 07:48 (Lipitor) 40 mg HS PO 12/05/16 21:00 01/01/17 20:12 (Lasix Liq) 40 mg DAILY TUBE 12/06/16 09:00 Hold 12/20/16 08:50 (Jacinda-Colace) 2 tab BID PRN PO 12/05/16 19:45 12/30/16 05:45 (Lactulose Liq) 30 ml TID PRN PO 12/05/16 19:45 Magnesium Hydroxide 30 ml 30 ml Q6H PRN PO 12/05/16 19:45 (NS 1000 ml Inj) 1,000 ml @ 0 mls/hr Q0M PRN IV 12/06/16 12:11 12/12/16 09:33 Heparin Sodium (Porcine) 8000 units 8,000 units UNSCH PRN IVF 12/06/16 12:15 Sodium Chloride 1,000 ml @ 200 mls/hr Q5H PRN IV 12/06/16 12:11 (NS 1000 ml Inj) 1,000 ml @ 0 mls/hr Q0M PRN IV 12/06/16 12:11 (Mannitol Inj) 12.5 gm UNSCH PRN IV 12/06/16 12:15 (Albumin 25% Inj) 25 gm UNSCH PRN IV 12/06/16 12:15 (NS Flush) 5 ml UNSCH PRN IVF 12/06/16 12:15 (Heparin Inj) UNSCH PRN .XX 12/06/16 12:15 12/14/16 16:39 (Gentamicin (Dialysis) Inj) 20 mg UNSCH PRN IV 12/06/16 12:15 12/14/16 16:39 (Zofran Inj) 4 mg UNSCH PRN IV 12/06/16 12:15 (Tylenol) 650 mg UNSCH PRN PO 12/06/16 12:15 12/14/16 07:54 (Benadryl) 25 mg UNSCH PRN PO 12/06/16 12:15 (Nitrostat Sl) 0.4 mg UNSCH PRN SL 12/06/16 12:15 (Catapres) 0.1 mg UNSCH PRN PO 12/06/16 12:15 12/19/16 06:27 (Epogen Inj) 10,000 units UNSCH PRN IV 12/06/16 12:15 12/14/16 16:39 (Gelfoam 12 Mm/7 Mm Top) 1 foam UNSCH PRN TOP 12/06/16 12:15 (Megace Liq) 400 mg DAILY PO 12/08/16 09:00 01/02/17 07:49 (Heparin Inj) 5,000 units Q12HR SQ 12/08/16 21:00 Hold 12/31/16 21:27 (Dilantin Liq) 300 mg Q12HR PO 12/08/16 21:00 01/02/17 07:53 (Flonase Evan Spr) 2 spray DAILY EACH NARE 12/18/16 12:00 01/02/17 07:49 Calcium Acetate 667 mg 667 mg TID PO 12/20/16 09:00 01/02/17 11:57 (1/2 NS 1000 ml Inj) 1,000 ml @ 65 mls/hr [id number] IV 12/20/16 10:00 Hold 12/24/16 21:10 (Protonix) 40 mg DAILY PO 12/25/16 10:30 01/02/17 07:49 Miscellaneous Information Patient in critical care unit? Ass... [id number] .XX 12/25/16 22:30 12/25/16 22:30 (Cardura) 10 mg HS PO 12/26/16 21:00 01/01/17 20:11 (Procardia Xl) 90 mg DAILY PO 12/27/16 09:00 01/02/17 07:49 (Pill Splitter) 1 ea UNSCH PRN OTHER 12/26/16 19:00 12/27/16 10:33 (Cardura) 4 mg DAILY PO 12/29/16 09:00 01/02/17 07:48 Urinary Catheter: No Date of Insertion: Nov 15, 2016 Vascular Central Line Catheter: No A/P Assessment and Plan 1. Squamous cell carcinoma of the lung: Status post stent placement in the left main bronchus at [facility]. Patient required to be intubated and mechanically ventilated, status post extubation. Patient had a complicated stay with a stent in the left main bronchus. Oncology consulted. Radiation oncology consulted and radiation therapy was recommended. Patient underwent radiation simulation on 12/23/16. XRT will possibly next week to plan and then the patient will need approximately over 6 weeks of treatment. Oncology following. 2. Acute kidney injury: Active renal failure ATN due to PEA arrest. Patient required some treatments with hemodialysis which has been held, last treatment was on 12/17/16. Currently on IV fluids as per renal recommendations and renal function is improving. Lasix on hold since patient has a good urine output. IV Fluids held. sp IV Bumex with excellent urine output. Continue to monitor BUN/creatinine, strict I's and O's and avoid nephrotoxic medications. Creatinine slowly trending down. Continue to monitor bun/creatinine, strict I's O's, avoid nephrotoxins. Fu nephrology recommendations. 3. Hypertension: Blood pressure uncontrolled versus only with elevated blood pressure into the systolic 160s. BP much improved and seems to be stable. Continue procardia 90 mg daily. Continue Cardura 10 mg at bedtime and 4 mg in am. Continue clonidine prn. 4. Hypokalemia: Resolved. Continue to monitor BMP and replace as needed. 5. BPH: On doxazosin. 6. Bladder mass: Neurology consulted. For cystoscopy when the patient stronger in the future. Neurology will need to be consulted if patient optimal condition for surgery/procedure which will require anesthesia. 7. Acute respiratory failure: Patient again had an episode of oxygen desaturation. Chest x-ray reviewed by me shows complete whiteout of the left lung and some pulmonary vascular congestion on the right. I will hold IV fluids and give IV Bumex. Continue DuoNeb as needed. Echocardiogram 55-60%. Continue supplemental O2 to keep o2 sat > 92%. 8. Klebsiella pneumonia: Bronchus sputum positive for Klebsiella, treated at [facility] and finish course of antibiotics as per previous records. Blood cultures was negative. 9. Iron deficiency anemia: Low iron stores. Patient is status post EGD which found gastritis, duodenitis and esophagitis being treated with PPI. 12/31 For colonoscopy in am. Patient with iron deficiency anemia and Hemoccult positive stool. 01/02 Patient is sp EGD and colonoscopy on 01/01 with findings of esophagitis and descending colon polyp. Patient had a repeat colonoscopy again today due to poor prep without major findings. Continue protonix 40 mg po daily. 10. Severe protein calorie malnutrition: Albumin 1.7 on admission. Patient is status post PEG placement on 12/11/16. Status post IV iron treatment. Pt tolerating Nocturnal TF'ing 6p to 6a. TF'ing held, for Dilantin dosing(one hour before and one hour after dosing). Continue Nepro oral supplement bid. Continue tube feedings with tray. 11. Left upper extremity superficial thrombophlebitis: Much improved. Treat with warm compresses. 12. UTI: Culture grew Nisa. Status post treatment. 13. Seizure disorder: Seem stable. Continue Dilantin. Seizure precautions. 14. DVT prophylaxis: SCDs, heparin subcutaneously SQ. 15. GI Prophylaxis: Continue PPI. 16. PT/OT daily - Will need therapy at rehab upon discharge. 17. Poor appetite: Better on Megace. Continue. 19. Acute hypercapnic respiratory failure:Resolved. Sp bipap now on nasal canula. Continue supplemental oxygen to keep oxygen saturation more than 92%. Pulmonology consulted - recommendations appreciated. Respiratory failure resolved. Palliative care following. Discharge Planning Continue to monitor in the medical floor. Diego Sherwood MD Jan 02, 2017 14:55 Diego Sherwood MD Jan 02, 2017 14:55
--- NOTE | 2017-01-02 16:37 | HHI.NPPN ---
Subjective General Problems: Anemia, Edema Renal Failure: Acute History of Present Illness 71 y/o male pt. Transferred to [facility] from [facility] with renal failure from possible ATN. Interval History patient's renal function has improved. No need for dialysis. Repeat colonoscopy today. EGD revealed esophagitis. Review of Systems General Constitutional: Fatigue General Remarks generalized weakness Objective Data Data 01/01/17 01/02/17 19:00 07:00 Intake Total 740 ml Output Total 1850 ml 2650 ml Balance -1110 ml -2650 ml Intake Oral 540 ml Other 200 ml Output Urine Total 1850 ml 2650 ml # Bowel Movements 0 6 Vital Signs Date Time Temp Pulse Resp B/P Pulse Ox O2 Delivery O2 Flow Rate FiO2 01/02/17 15:25 99.2 96 20 157/75 92 01/02/17 11:50 98.1 93 20 153/69 91 01/02/17 11:05 94 16 127/65 98 01/02/17 10:55 93 16 122/63 98 01/02/17 10:45 97.8 92 16 116/63 99 01/02/17 10:30 Room Air 2.00 21 01/02/17 09:50 98.5 88 16 170/81 93 01/02/17 07:50 98.0 93 20 184/85 93 01/02/17 04:00 98.5 88 18 170/81 93 01/02/17 00:00 98.3 89 18 154/73 92 01/01/17 20:06 89 01/01/17 20:04 92 21 01/01/17 20:00 98.7 96 18 145/69 94 -: 01/02/17 0616 01/02/17 0616 Tubes & Lines: Miranda Tubes & Lines Comment PEG, Physical Exam General Appearance: Well Developed, Well Nourished, No Acute Distress, Comfortable Eyes Eye Exam: Pupils Equal, Pupils Reactive Throat Throat Exam: Oral Mucosa [place] & Moist Pulmonary Resp Exam: Breath Sounds Equal, No Distress, Decreased Bases, Diminished Breath Sounds Cardiology CV Exam: Regular, Normal Sinus Rhythm, Good Perfusion, Murmur Gastrointestinal/Abdomen GI Exam: Soft, Non-Tender, Bowel Sounds Present, Positive Bowel Movement Genitourinary Exam: Clear Urine Musculoskeletal MS Exam: Joints Intact, Atrophy, Unable to Ambulate Integumentary Skin Exam: Clear, Warm, Dry, Intact Extremeties Extremities Exam: No Edema, Pedal Pulses Palpable Neurologic Neuro Exam: Alert, Awake, Oriented, Speech Clear, Moving All Extremities Psychiatric Psych Exam: Appropriate Responses Assessment/Plan Discussed Condition With: Patient, Son Assessment Summary: TODD/Acute Renal Failure, Acute Tubular Necrosis Problem List: (1) Acute renal failure Plan: He had creatinine 0.77 in October Renal failure ATN due to PEA arrest HD started around 11/08 has been on hold with last treatment 12/17 he appears to be in renal recovery creatinine is slowly improving ; BUN is better. If renal function is better tomorrow, remove PermCath. (2) Anemia Plan: Hb low but stable hematology/oncology following given a dose of epogen Hemoccult positive , GI following (3) Bronchiolar obstruction Plan: s/p stent placement, dx of squamous cell carcinoma med oncology following (4) Mass of left lung Plan: oncology has evaluated, appreciate their recommendations he is unstable for systemic treatment at this time he was to have radiation therapy, however hospice was recommended and the patient declined, he is still interested in radiation (5) Acute respiratory failure Plan: extubated, on nasal cannula continuous speech therapy has signed off (6) Bladder mass Plan: urology following, bladder US report noted he will need cystoscopy with TURBT when more stable (7) UTI (urinary tract infection) Plan: resolved, off antibiotics remove miranda when evaluated by urology given bladder mass Problem Qualifiers (1) UTI (urinary tract infection): Willian Borjas MD Jan 02, 2017 16:37
--- NOTE | 2017-01-02 19:50 | HHI.PR ---
Subjective Remarks Patient is on 2L oxygen with good sats. Afebrile. Anxious to have radiation started had EGD, has esophagitis Tolerates PO Objective Vital Signs Vital Signs Date Time Temp Pulse Resp B/P Pulse Ox O2 Delivery O2 Flow Rate FiO2 01/02/17 15:25 99.2 96 20 157/75 92 01/02/17 11:50 98.1 93 20 153/69 91 01/02/17 11:05 94 16 127/65 98 01/02/17 10:55 93 16 122/63 98 01/02/17 10:45 97.8 92 16 116/63 99 01/02/17 10:30 Room Air 2.00 21 01/02/17 09:50 98.5 88 16 170/81 93 01/02/17 07:50 98.0 93 20 184/85 93 01/02/17 04:00 98.5 88 18 170/81 93 01/02/17 00:00 98.3 89 18 154/73 92 01/01/17 20:06 89 01/01/17 20:04 92 21 01/01/17 20:00 98.7 96 18 145/69 94 I/O 01/01/17 01/01/17 01/01/17 01/02/17 01/02/17 01/02/17 07:00 15:00 23:00 07:00 15:00 23:00 Intake Total 740 ml 300 ml Output Total 1500 ml 1850 ml 2650 ml 1100 ml 525 ml Balance -1500 ml -1110 ml -2650 ml -800 ml -525 ml Intake Oral 540 ml 0 ml Other 200 ml 300 ml Output Urine Total 1500 ml 1850 ml 2650 ml 1100 ml 525 ml # Bowel Movements 3 0 2 4 0 Result Diagram: 01/02/1716 01/02/17 0616 Objective Remarks GENERAL: Patient is lying in bed in NAD SKIN: Warm and dry. HEAD: Normocephalic. EYES: No scleral icterus. No injection or drainage. NECK: Supple, trachea midline. No JVD or lymphadenopathy. CARDIOVASCULAR: Regular rate and rhythm without murmurs, gallops, or rubs. RESPIRATORY: Breath sounds equal bilaterally. No accessory muscle use. GASTROINTESTINAL: Abdomen soft, non-tender, nondistended. MUSCULOSKELETAL: No cyanosis, or edema. BACK: Nontender without obvious deformity. No CVA tenderness. 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 Patient underwent radiation simulation on 12/23/16. XRT will possibly start next week . Heme Onc is following Monitor renal function, avoid nephrotoxins, Renal is following. HD per renal. Stable on Valeriy Lozano MD Jan 02, 2017 19:50
[2017-01-02] MEDS: ATORVASTATIN 40 MG TAB PO SCH (19:52)
[2017-01-03] VITALS (8 sets, daily range): BP systolic 130–171; BP diastolic 60–86; PULSE 85–111; RESP 16–19; TEMP 97.2–99.5; O2SAT 94–98
[2017-01-03 07:11] LABS: AUTOMATED NEUTROPHIL # 8.3 TH/MM3 (1.8-7.7); BASOPHIL # 0.1 TH/MM3 (0-0.2); BASOPHIL % 0.7 % (0.0-2.0); EOSINOPHIL # 1.7 TH/MM3 (0-0.4); HEMATOCRIT 27.6 % (39.0-51.0); HEMO FLAGS DIFF FINAL; LYMPHOCYTE # 0.8 TH/MM3 (1.0-4.8); MEAN CELL VOLUME 87.4 FL (80.0-100.0); MEAN CORPUSCULAR HEMOGLOBIN 28.4 PG (27.0-34.0); MEAN CORPUSCULAR HGB CONC 32.5 % (32.0-36.0); MONO % 9.4 % (0.0-8.0); NEUT % 68.9 % (16.0-70.0); PLATELET COUNT 366 TH/MM3 (150-450); RED BLOOD COUNT 3.16 MIL/MM3 (4.50-5.90); RED CELL DISTRIBUTION WIDTH 15.3 % (11.6-17.2); WHITE BLOOD COUNT 12.1 TH/MM3 (4.0-11.0)
[2017-01-03 07:34] LABS: ANION GAP 12 MEQ/L (5-15); AST (GOT) 30 U/L (15-37); BICARBONATE 28.3 MEQ/L (21.0-32.0); BLOOD UREA NITROGEN 89 MG/DL (7-18); CHLORIDE 101 MEQ/L (98-107); GLOMERULAR FILTRATION RATE 19 ML/MIN (>89); POTASSIUM 3.2 MEQ/L (3.5-5.1); SODIUM (NA) 141 MEQ/L (136-145)
[2017-01-03 07:36] LABS: ALKALINE PHOSPHATASE 82 U/L (45-117); ALT (GPT) 36 U/L (12-78); TOTAL BILIRUBIN ADULT 0.2 MG/DL (0.2-1.0)
[2017-01-03] MEDS: FLUTICASONE PROPIONATE 50 MCG/ACT 16 GM NASAL SPRAY EACH NARE SCH (09:00)
[2017-01-03] MEDS: SODIUM CHLORIDE 0.9% FLUSH 5 ML FLUSH FLUSH SCH ×2 (09:00→21:00)
[2017-01-03] MEDS: MEGESTROL ACETATE SUSP 400 MG/10 ML CUP PO SCH (09:22)
[2017-01-03] MEDS: CALCIUM ACETATE 667 MG CAP PO SCH ×3 (09:22→17:50)
[2017-01-03] MEDS: DOXAZOSIN MESYLATE 4 MG TAB PO SCH ×2 (09:22→21:13)
[2017-01-03] MEDS: FERROUS SULFATE 300 MG /5ML UDC PO SCH (09:22)
[2017-01-03] MEDS: PANTOPRAZOLE SOD 40 MG DELAYED RELEASE TAB PO SCH (09:23)
[2017-01-03] MEDS: NIFEdipine 90 MG SUSTAINED RELEASE TAB PO SCH (09:23)
--- NOTE | 2017-01-03 09:26 | HHI.NPPN ---
Subjective General Problems: Anemia, Edema Renal Failure: Acute History of Present Illness 71 y/o male pt. Transferred to [facility] from [facility] with renal failure from possible ATN. Interval History Awake, alert. Feels he is swallowing and eating better. Creatinine is slightly worse today. (Marina Mcgovern) Review of Systems General Constitutional: Fatigue General Remarks generalized weakness (Marina Mcgovern) Objective Data Data 01/02/17 01/03/17 19:00 07:00 Intake Total 300 ml 1420 ml Output Total 1625 ml 2000 ml Balance -1325 ml -580 ml Intake Oral 0 ml 720 ml Tube Feeding 550 ml Other 300 ml 150 ml Output Urine Total 1625 ml 2000 ml # Bowel Movements 0 0 Vital Signs Date Time Temp Pulse Resp B/P Pulse Ox O2 Delivery O2 Flow Rate FiO2 01/03/17 04:00 99.5 87 17 171/84 94 01/03/17 00:00 97.4 87 18 161/80 94 01/02/17 20:00 97.2 90 18 174/88 94 01/02/17 15:25 99.2 96 20 157/75 92 01/02/17 11:50 98.1 93 20 153/69 91 01/02/17 11:05 94 16 127/65 98 01/02/17 10:55 93 16 122/63 98 01/02/17 10:45 97.8 92 16 116/63 99 01/02/17 10:30 Room Air 2.00 21 01/02/17 09:50 98.5 88 16 170/81 93 (Marina Mcgovern) -: 01/03/17 0651 01/03/17 0651 Tubes & Lines: Miranda Tubes & Lines Comment PEG, (Marina Mcgovern) Physical Exam General Appearance: Well Developed, Well Nourished, No Acute Distress, Comfortable ( Marina Mcgovern) Eyes Eye Exam: Pupils Equal, Pupils Reactive (Marina Mcgovern) Throat Throat Exam: Oral Mucosa [place] & Moist (Marina Mcgovern) Pulmonary Resp Exam: Breath Sounds Equal, No Distress, Decreased Bases, Diminished Breath Sounds (Marina Mcgovern) Cardiology CV Exam: Regular, Normal Sinus Rhythm, Good Perfusion, Murmur (Marina Mcgovern) Gastrointestinal/Abdomen GI Exam: Soft, Non-Tender, Bowel Sounds Present, Positive Bowel Movement ( Marina Mcgovern) Genitourinary Exam: Clear Urine (Marina Mcgovern) Musculoskeletal MS Exam: Joints Intact, Atrophy, Unable to Ambulate (Marina Mcgovern) Integumentary Skin Exam: Clear, Warm, Dry, Intact (Marina Mcgovern) Extremeties Extremities Exam: No Edema, Pedal Pulses Palpable (Marina Mcgovern) Neurologic Neuro Exam: Alert, Awake, Oriented, Speech Clear, Moving All Extremities ( Marina Mcgovern) Psychiatric Psych Exam: Appropriate Responses (Marina Mcgovern) Assessment/Plan Discussed Condition With: Patient, Son Assessment Summary: TODD/Acute Renal Failure, Acute Tubular Necrosis Problem List: (1) Acute renal failure Plan: He had creatinine 0.77 in October Renal failure AT due to PEA arrest HD started around 11/08 has been on hold with last treatment 12/17 he appears to be in renal recovery creatinine slightly worse, BUN is better. monitor renal function for one more day, remove PermCath tomorrow if improved avoid IVF, nephrotoxins (2) Anemia Plan: Hb low but stable hematology/oncology following given a dose of epogen Hemoccult positive , scoped with no active bleed identified (3) Bronchiolar obstruction Plan: s/p stent placement, dx of squamous cell carcinoma med oncology following (4) Mass of left lung Plan: oncology has evaluated, appreciate their recommendations he is unstable for systemic treatment at this time he was to have radiation therapy, however hospice was recommended and the patient declined, he is still interested in radiation (5) Acute respiratory failure Plan: extubated, on nasal cannula continuous speech therapy has signed off (6) Bladder mass Plan: urology following, bladder US report noted he will need cystoscopy with TURBT when more stable (7) UTI (urinary tract infection) Plan: resolved, off antibiotics remove miranda when evaluated by urology given bladder mass (Marina Mcgovern) Problem List: (1) Acute renal failure Plan: He had creatinine 0.77 in October Renal failure ATN due to PEA arrest HD started around 11/08 has been on hold with last treatment 12/17 he appears to be in renal recovery creatinine slightly worse, BUN is better. monitor renal function for one more day, remove PermCath tomorrow if improved avoid IVF, nephrotoxins (2) Anemia Plan: Hb low but stable hematology/oncology following given a dose of epogen Hemoccult positive , scoped with no active bleed identified (3) Bronchiolar obstruction Plan: s/p stent placement, dx of squamous cell carcinoma med oncology following (4) Mass of left lung Plan: oncology has evaluated, appreciate their recommendations he is unstable for systemic treatment at this time he was to have radiation therapy, however hospice was recommended and the patient declined, he is still interested in radiation (5) Acute respiratory failure Plan: extubated, on nasal cannula continuous speech therapy has signed off (6) Bladder mass Plan: urology following, bladder US report noted he will need cystoscopy with TURBT when more stable (7) UTI (urinary tract infection) Plan: resolved, off antibiotics remove miranda when evaluated by urology given bladder mass Plan patient was seen and examined. Renal function little changed compared to yesterday. May be his new baseline? Non oliguric, no indication for dialysis. To leave PermCath in until Friday. (Willian Borjas MD) Problem Qualifiers (1) UTI (urinary tract infection): Marina Mcgovern Jan 03, 2017 09:26 Willian Borjas MD Jan 03, 2017 15:08
[2017-01-03] MEDS: PHENYTOIN SUSP 100 MG/4 ML CUP PO SCH ×2 (12:13→21:14)
[2017-01-03] MEDS ORDERED: POTASSIUM CHLORIDE 10 MEQ CONTROLLED RELEASE TAB PO ONE (15:15)
--- NOTE | 2017-01-03 17:45 | HHI.PR ---
Subjective Remarks . Afebrile. Anxious to have radiation started had EGD, has esophagitis Tolerates PO on supplemental 02 Objective Vital Signs Vital Signs Date Time Temp Pulse Resp B/P Pulse Ox O2 Delivery O2 Flow Rate FiO2 01/03/17 12:00 97.2 92 16 167/79 96 01/03/17 10:49 Room Air 2.00 21 01/03/17 09:52 99.5 98 16 166/86 98 01/03/17 04:00 99.5 87 17 171/84 94 01/03/17 00:00 97.4 87 18 161/80 94 01/02/17 20:00 97.2 90 18 174/88 94 I/O 01/02/17 01/02/17 01/02/17 01/03/17 01/03/17 01/03/17 07:00 15:00 23:00 07:00 15:00 23:00 Intake Total 300 ml 240 ml 1180 ml Output Total 2650 ml 1100 ml 1525 ml 1000 ml Balance -2650 ml -800 ml -1285 ml 180 ml Intake Oral 0 ml 240 ml 480 ml Tube Feeding 550 ml Other 300 ml 150 ml Output Urine Total 2650 ml 1100 ml 1525 ml 1000 ml # Bowel Movements 4 0 0 0 Result Diagram: 01/03/17 0651 01/03/17650 Objective Remarks GENERAL: Patient is lying in bed in NAD SKIN: Warm and dry. HEAD: Normocephalic. EYES: No scleral icterus. No injection or drainage. NECK: Supple, trachea midline. No JVD or lymphadenopathy. CARDIOVASCULAR: Regular rate and rhythm without murmurs, gallops, or rubs. RESPIRATORY: Breath sounds equal bilaterally. No accessory muscle use. GASTROINTESTINAL: Abdomen soft, non-tender, nondistended. MUSCULOSKELETAL: No cyanosis, or edema. BACK: Nontender without obvious deformity. No CVA tenderness. 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 Patient underwent radiation simulation on 12/23/16. XRT will possibly start next week . Heme Onc is following Monitor renal function, avoid nephrotoxins, Renal is following. HD per renal. Supplement 02 to keep sat >90% Valeriy Wilkins MD Jan 03, 2017 17:45
[2017-01-03] MEDS: DOCUSATE SODIUM 100 MG CAP PO SCH (17:52)
--- NOTE | 2017-01-03 19:16 | HHI.PR ---
Subjective Remarks denies cp/sob denies fevers/chills denies abdominal pain, nausea bp elevated earlier - now better Objective Vitals Vital Signs Date Time Temp Pulse Resp B/P Pulse Ox O2 Delivery O2 Flow Rate FiO2 01/03/17 16:00 97.2 111 16 130/60 95 01/03/17 12:00 97.2 92 16 167/79 96 01/03/17 10:49 Room Air 2.00 21 01/03/17 09:52 99.5 98 16 166/86 98 01/03/17 04:00 99.5 87 17 171/84 94 01/03/17 00:00 97.4 87 18 161/80 94 01/02/17 20:00 97.2 90 18 174/88 94 I/O 01/02/17 01/02/17 01/02/17 01/03/17 01/03/17 01/03/17 07:00 15:00 23:00 07:00 15:00 23:00 Intake Total 300 ml 240 ml 1180 ml Output Total 2650 ml 1100 ml 1525 ml 1000 ml Balance -2650 ml -800 ml -1285 ml 180 ml Intake Oral 0 ml 240 ml 480 ml Tube Feeding 550 ml Other 300 ml 150 ml Output Urine Total 2650 ml 1100 ml 1525 ml 1000 ml # Bowel Movements 4 0 0 0 Result Diagram: 01/03/17 0651 01/03/17 0651 Imaging Last Impressions Chest X-Ray 12/25/16 0000 Signed Impressions: Service Date/Time: Sunday, December 25, 2016 08:59 - CONCLUSION: 1. Complete opacification of the left hemithorax unchanged from previous. 2. 4.5 cm masslike density on the right which appears to be fluid loculated in the fissure. This is decreased in size when compared to previous. 3. Dialysis catheter in good position. Patrick Shelton MD Upper Extremity Ultrasound 12/11/16 1506 Signed Impressions: Service Date/Time: Sunday, December 11, 2016 18:00 - CONCLUSION: Superficial thrombophlebitis, extensive edema and nonspecific fluid collections in the subcutaneous tissues. Shawn Reyes MD Head CT 12/11/16 0000 Signed Impressions: Service Date/Time: Sunday, December 11, 2016 20:00 - CONCLUSION: Slight atrophic and small vessel ischemic changes without any evidence for acute hemorrhage or mass effect. Shawn Reyes MD Renal Ultrasound 12/09/16 0000 Signed Impressions: Service Date/Time: Friday, December 09, 2016 15:16 - CONCLUSION: 1. 8.4 cm mass lesion at the base of the bladder. This may represent an intrinsic mass of the bladder versus a prominent anterior lobe of the prostate. 2. Otherwise, urinary bladder is partially decompressed with a Lipscomb catheter. 3. Both kidneys are sonographically normal. Roby Horta MD Objective Remarks GENERAL: This is a well-nourished, well-developed patient, in no apparent distress. CARDIOVASCULAR: Regular rate and regular rhythm without murmurs, gallops, or rubs. RESPIRATORY: Clear to auscultation on right side, left lung with decreased breath sounds. No wheezing, rhonchi or murmur auscultated. GASTROINTESTINAL: Abdomen soft, non-tender, nondistended. Normal, active bowel sounds. PEG c/d/i MUSCULOSKELETAL: Extremities without clubbing, cyanosis, or edema. NEURO: Alert & Oriented x4 to person, place, time, situation. Moves all ext x4 Procedures 12/11- EGD- esophagitis, gastritis, duodenitis PEG placement Medications and IVs Current Medications Medications (Trade) Dose Ordered Sig/Luis Carlos Route Start Time Stop Time Status Last Admin (NS Flush) 2 ml UNSCH PRN FLUSH 12/05/16 17:00 (NS Flush) 2 ml BID FLUSH 12/05/16 21:00 01/03/17 09:00 (Zofran Inj) 4 mg Q6H PRN IVP 12/05/16 18:00 (Dulcolax Supp) 10 mg DAILY PRN SD 12/05/16 18:00 (Colace) 100 mg Q12H PO 12/05/16 18:00 01/03/17 17:52 (Narcan Inj) 0.4 mg UNSCH PRN IV 12/05/16 17:00 (Ferrous Sulfate Liq) 300 mg DAILY PO 12/06/16 09:00 01/03/17 09:22 (Lipitor) 40 mg HS PO 12/05/16 21:00 01/02/17 19:52 (Lasix Liq) 40 mg DAILY TUBE 12/06/16 09:00 Hold 12/20/16 08:50 (Jacinda-Colace) 2 tab BID PRN PO 12/05/16 19:45 12/30/16 05:45 (Lactulose Liq) 30 ml TID PRN PO 12/05/16 19:45 Magnesium Hydroxide 30 ml 30 ml Q6H PRN PO 12/05/16 19:45 (NS 1000 ml Inj) 1,000 ml @ 0 mls/hr Q0M PRN IV 12/06/16 12:11 12/12/16 09:33 Heparin Sodium (Porcine) 8000 units 8,000 units UNSCH PRN IVF 12/06/16 12:15 Sodium Chloride 1,000 ml @ 200 mls/hr Q5H PRN IV 12/06/16 12:11 (NS 1000 ml Inj) 1,000 ml @ 0 mls/hr Q0M PRN IV 12/06/16 12:11 (Mannitol Inj) 12.5 gm UNSCH PRN IV 12/06/16 12:15 (Albumin 25% Inj) 25 gm UNSCH PRN IV 12/06/16 12:15 (NS Flush) 5 ml UNSCH PRN IVF 12/06/16 12:15 (Heparin Inj) UNSCH PRN .XX 12/06/16 12:15 12/14/16 16:39 (Gentamicin (Dialysis) Inj) 20 mg UNSCH PRN IV 12/06/16 12:15 12/14/16 16:39 (Zofran Inj) 4 mg UNSCH PRN IV 12/06/16 12:15 (Tylenol) 650 mg UNSCH PRN PO 12/06/16 12:15 12/14/16 07:54 (Benadryl) 25 mg UNSCH PRN PO 12/06/16 12:15 (Nitrostat Sl) 0.4 mg UNSCH PRN SL 12/06/16 12:15 (Catapres) 0.1 mg UNSCH PRN PO 12/06/16 12:15 12/19/16 06:27 (Epogen Inj) 10,000 units UNSCH PRN IV 12/06/16 12:15 12/14/16 16:39 (Gelfoam 12 Mm/7 Mm Top) 1 foam UNSCH PRN TOP 12/06/16 12:15 (Megace Liq) 400 mg DAILY PO 12/08/16 09:00 01/03/17 09:22 (Heparin Inj) 5,000 units Q12HR SQ 12/08/16 21:00 Hold 12/31/16 21:27 (Dilantin Liq) 300 mg Q12HR PO 12/08/16 21:00 01/03/17 12:13 (Flonase Evan Spr) 2 spray DAILY EACH NARE 12/18/16 12:00 01/03/17 09:00 Calcium Acetate 667 mg 667 mg TID PO 12/20/16 09:00 01/03/17 17:50 (1/2 NS 1000 ml Inj) 1,000 ml @ 65 mls/hr [id number] IV 12/20/16 10:00 Hold 12/24/16 21:10 (Protonix) 40 mg DAILY PO 12/25/16 10:30 01/03/17 09:23 Miscellaneous Information Patient in critical care unit? Ass... [id number] .XX 12/25/16 22:30 12/25/16 22:30 (Cardura) 10 mg HS PO 12/26/16 21:00 01/02/17 19:51 (Procardia Xl) 90 mg DAILY PO 12/27/16 09:00 01/03/17 09:23 (Pill Splitter) 1 ea UNSCH PRN OTHER 12/26/16 19:00 12/27/16 10:33 (Cardura) 4 mg DAILY PO 12/29/16 09:00 01/03/17 09:22 Urinary Catheter: Yes Assessment to: Continue Lipscomb insert reason: Prolonged Immobilization Date of Insertion: Nov 15, 2016 A/P Assessment and Plan 1. Squamous cell carcinoma of the lung: Status post stent placement in the left main bronchus at [facility]. Patient required to be intubated and mechanically ventilated, status post extubation. Patient had a complicated stay with a stent in the left main bronchus. Oncology consulted. Radiation oncology consulted and radiation therapy was recommended. Patient underwent radiation simulation on 12/23/16. XRT will possibly next week to plan and then the patient will need approximately over 6 weeks of treatment. Oncology following. 2. Acute kidney injury: Active renal failure AT due to PEA arrest. Patient required some treatments with hemodialysis which has been held, last treatment was on 12/17/16. Currently on IV fluids as per renal recommendations and renal function is improving. Lasix on hold since patient has a good urine output. IV Fluids held. sp IV Bumex with excellent urine output. Continue to monitor BUN/creatinine, strict I's and O's and avoid nephrotoxic medications. Creatinine seems to be stable. Continue to monitor bun/creatinine, strict I's O 's, avoid nephrotoxins. Fu nephrology recommendations. I f creatinine stable nephrology plans to remove PermCath in am. 3. Hypertension: Blood pressure uncontrolled versus only with elevated blood pressure into the systolic 160s. BP much improved and seems to be stable. Continue procardia 90 mg daily. Continue Cardura 10 mg at bedtime and 4 mg in am. Continue clonidine prn. 01/03 BP mostly elevated and uncontrolled. will start Clonidine 0.1 mg every 8 hrs. 4. Hypokalemia: K low today. Continue to monitor BMP and replace as needed. 5. BPH: On doxazosin. 6. Bladder mass: Neurology consulted. For cystoscopy when the patient stronger in the future. Neurology will need to be consulted if patient optimal condition for surgery/procedure which will require anesthesia. 7. Acute respiratory failure: Patient again had an episode of oxygen desaturation. Chest x-ray reviewed by me shows complete whiteout of the left lung and some pulmonary vascular congestion on the right. I will hold IV fluids and give IV Bumex. Continue DuoNeb as needed. Echocardiogram 55-60%. Continue supplemental O2 to keep o2 sat > 92%. 8. Klebsiella pneumonia: Bronchus sputum positive for Klebsiella, treated at [facility] and finish course of antibiotics as per previous records. Blood cultures was negative. 9. Iron deficiency anemia: Low iron stores. Patient is status post EGD which found gastritis, duodenitis and esophagitis being treated with PPI. 12/31 For colonoscopy in am. Patient with iron deficiency anemia and Hemoccult positive stool. 01/02 Patient is sp EGD and colonoscopy on 01/01 with findings of esophagitis and descending colon polyp. Patient had a repeat colonoscopy again today due to poor prep without major findings. Continue protonix 40 mg po daily. 10. Severe protein calorie malnutrition: Albumin 1.7 on admission. Patient is status post PEG placement on 12/11/16. Status post IV iron treatment. Pt tolerating Nocturnal TF'ing 6p to 6a. TF'ing held, for Dilantin dosing(one hour before and one hour after dosing). Continue Nepro oral supplement bid. Continue tube feedings with tray. 11. Left upper extremity superficial thrombophlebitis: Much improved. Treat with warm compresses. 12. UTI: Culture grew Nisa. Status post treatment. 13. Seizure disorder: Seem stable. Continue Dilantin. Seizure precautions. 14. DVT prophylaxis: SCDs, heparin subcutaneously SQ. 15. GI Prophylaxis: Continue PPI. 16. PT/OT daily - Will need therapy at rehab upon discharge. 17. Poor appetite: Better on Megace. Continue. 19. Acute hypercapnic respiratory failure:Resolved. Sp bipap now on nasal canula. Continue supplemental oxygen to keep oxygen saturation more than 92%. Pulmonology consulted - recommendations appreciated. Respiratory failure resolved. Palliative care following. Discharge Planning Continue to monitor in the medical floor. Diego Sherwood MD Jan 03, 2017 19:15
[2017-01-03] MEDS: ATORVASTATIN 40 MG TAB PO SCH (21:13)
[2017-01-03] MEDS: cloNIDine HCL 0.1 MG TAB PO SCH (21:13)
[2017-01-04] VITALS (9 sets, daily range): BP systolic 136–152; BP diastolic 68–89; PULSE 84–97; RESP 18; TEMP 97.4–99; O2SAT 92–98
[2017-01-04] MEDS: cloNIDine HCL 0.1 MG TAB PO SCH ×2 (05:33→13:34)
[2017-01-04] MEDS: DOCUSATE SODIUM 100 MG CAP PO SCH ×2 (05:34→17:42)
[2017-01-04 07:55] LABS: HEMATOCRIT 26.6 % (39.0-51.0); MEAN CELL VOLUME 87.3 FL (80.0-100.0); MEAN CORPUSCULAR HEMOGLOBIN 27.9 PG (27.0-34.0); PLATELET COUNT 305 TH/MM3 (150-450); RED BLOOD COUNT 3.05 MIL/MM3 (4.50-5.90); RED CELL DISTRIBUTION WIDTH 15.2 % (11.6-17.2); REVIEW FLAG FINAL; WHITE BLOOD COUNT 13.1 TH/MM3 (4.0-11.0)
[2017-01-04 08:23] LABS: BICARBONATE 25.7 MEQ/L (21.0-32.0); POTASSIUM 3.4 MEQ/L (3.5-5.1)
[2017-01-04] MEDS ORDERED: POTASSIUM CHLORIDE 10 MEQ CONTROLLED RELEASE TAB PO ONE (09:45)
[2017-01-04] MEDS: DOXAZOSIN MESYLATE 4 MG TAB PO SCH ×2 (10:31→20:31)
[2017-01-04] MEDS: NIFEdipine 90 MG SUSTAINED RELEASE TAB PO SCH (10:31)
[2017-01-04] MEDS: PANTOPRAZOLE SOD 40 MG DELAYED RELEASE TAB PO SCH (10:31)
[2017-01-04] MEDS: FERROUS SULFATE 300 MG /5ML UDC PO SCH (10:32)
[2017-01-04] MEDS: CALCIUM ACETATE 667 MG CAP PO SCH ×3 (10:32→17:42)
[2017-01-04] MEDS: PHENYTOIN SUSP 100 MG/4 ML CUP PO SCH ×2 (10:34→20:31)
[2017-01-04] MEDS: MEGESTROL ACETATE SUSP 400 MG/10 ML CUP PO SCH (10:35)
[2017-01-04] MEDS: FLUTICASONE PROPIONATE 50 MCG/ACT 16 GM NASAL SPRAY EACH NARE SCH (10:38)
[2017-01-04] MEDS: SODIUM CHLORIDE 0.9% FLUSH 5 ML FLUSH FLUSH SCH ×2 (10:39→20:32)
--- NOTE | 2017-01-04 11:21 | HHI.PR ---
Subjective Remarks Patient denies cp/sob denies diarrhea denies fevers/chills occasional cough wbc trending up K low at 3.4 Objective Vitals Vital Signs Date Time Temp Pulse Resp B/P Pulse Ox O2 Delivery O2 Flow Rate FiO2 01/04/17 10:51 95 Nasal Cannula 2.00 01/04/17 08:00 97.5 85 18 136/89 96 01/04/17 04:00 98.7 84 18 151/86 98 01/04/17 00:00 97.4 92 18 152/80 94 01/03/17 21:47 95 Nasal Cannula 2.00 01/03/17 21:20 85 01/03/17 21:20 96 Nasal Cannula 2.00 29 01/03/17 20:00 97.4 90 19 130/65 96 01/03/17 16:00 97.2 111 16 130/60 95 01/03/17 12:00 97.2 92 16 167/79 96 I/O 01/03/17 01/03/17 01/03/17 01/04/17 01/04/17 01/04/17 07:00 15:00 23:00 07:00 15:00 23:00 Intake Total 1180 ml 720 ml 240 ml Output Total 1000 ml 1350 ml 600 ml Balance 180 ml -630 ml -360 ml Intake Oral 480 ml 720 ml 240 ml Tube Feeding 550 ml Other 150 ml Output Urine Total 1000 ml 1350 ml 600 ml # Bowel Movements 0 0 Result Diagram: 01/04/17 0730 01/04/17 0730 Imaging Last Impressions Chest X-Ray 12/25/16 0000 Signed Impressions: Service Date/Time: Sunday, December 25, 2016 08:59 - CONCLUSION: 1. Complete opacification of the left hemithorax unchanged from previous. 2. 4.5 cm masslike density on the right which appears to be fluid loculated in the fissure. This is decreased in size when compared to previous. 3. Dialysis catheter in good position. Patrick Shelton MD Upper Extremity Ultrasound 12/11/16 1506 Signed Impressions: Service Date/Time: Sunday, December 11, 2016 18:00 - CONCLUSION: Superficial thrombophlebitis, extensive edema and nonspecific fluid collections in the subcutaneous tissues. Shawn Reyes MD Head CT 12/11/16 0000 Signed Impressions: Service Date/Time: Sunday, December 11, 2016 20:00 - CONCLUSION: Slight atrophic and small vessel ischemic changes without any evidence for acute hemorrhage or mass effect. Shawn Reyes MD Renal Ultrasound 12/09/16 0000 Signed Impressions: Service Date/Time: Friday, December 09, 2016 15:16 - CONCLUSION: 1. 8.4 cm mass lesion at the base of the bladder. This may represent an intrinsic mass of the bladder versus a prominent anterior lobe of the prostate. 2. Otherwise, urinary bladder is partially decompressed with a Lipscomb catheter. 3. Both kidneys are sonographically normal. Roby Horta MD Objective Remarks GENERAL: This is a well-nourished, well-developed patient, in no apparent distress. CARDIOVASCULAR: Regular rate and regular rhythm without murmurs, gallops, or rubs. RESPIRATORY: Clear to auscultation on right side, left lung with decreased breath sounds. No wheezing, rhonchi or murmur auscultated. GASTROINTESTINAL: Abdomen soft, non-tender, nondistended. Normal, active bowel sounds. PEG c/d/i MUSCULOSKELETAL: Extremities without clubbing, cyanosis, or edema. NEURO: Alert & Oriented x4 to person, place, time, situation. Moves all ext x4 Procedures 12/11- EGD- esophagitis, gastritis, duodenitis PEG placement Medications and IVs Current Medications Medications (Trade) Dose Ordered Sig/Luis Carlos Route Start Time Stop Time Status Last Admin (NS Flush) 2 ml UNSCH PRN FLUSH 12/05/16 17:00 (NS Flush) 2 ml BID FLUSH 12/05/16 21:00 01/04/17 10:39 (Zofran Inj) 4 mg Q6H PRN IVP 12/05/16 18:00 (Dulcolax Supp) 10 mg DAILY PRN NH 12/05/16 18:00 (Colace) 100 mg Q12H PO 12/05/16 18:00 01/03/17 17:52 (Narcan Inj) 0.4 mg UNSCH PRN IV 12/05/16 17:00 (Ferrous Sulfate Liq) 300 mg DAILY PO 12/06/16 09:00 01/04/17 10:32 (Lipitor) 40 mg HS PO 12/05/16 21:00 01/03/17 21:13 (Lasix Liq) 40 mg DAILY TUBE 12/06/16 09:00 Hold 12/20/16 08:50 (Jacinda-Colace) 2 tab BID PRN PO 12/05/16 19:45 12/30/16 05:45 (Lactulose Liq) 30 ml TID PRN PO 12/05/16 19:45 Magnesium Hydroxide 30 ml 30 ml Q6H PRN PO 12/05/16 19:45 (NS 1000 ml Inj) 1,000 ml @ 0 mls/hr Q0M PRN IV 12/06/16 12:11 12/12/16 09:33 Heparin Sodium (Porcine) 8000 units 8,000 units UNSCH PRN IVF 12/06/16 12:15 Sodium Chloride 1,000 ml @ 200 mls/hr Q5H PRN IV 12/06/16 12:11 (NS 1000 ml Inj) 1,000 ml @ 0 mls/hr Q0M PRN IV 12/06/16 12:11 (Mannitol Inj) 12.5 gm UNSCH PRN IV 12/06/16 12:15 (Albumin 25% Inj) 25 gm UNSCH PRN IV 12/06/16 12:15 (NS Flush) 5 ml UNSCH PRN IVF 12/06/16 12:15 (Heparin Inj) UNSCH PRN .XX 12/06/16 12:15 12/14/16 16:39 (Gentamicin (Dialysis) Inj) 20 mg UNSCH PRN IV 12/06/16 12:15 12/14/16 16:39 (Zofran Inj) 4 mg UNSCH PRN IV 12/06/16 12:15 (Tylenol) 650 mg UNSCH PRN PO 12/06/16 12:15 12/14/16 07:54 (Benadryl) 25 mg UNSCH PRN PO 12/06/16 12:15 (Nitrostat Sl) 0.4 mg UNSCH PRN SL 12/06/16 12:15 (Catapres) 0.1 mg UNSCH PRN PO 12/06/16 12:15 12/19/16 06:27 (Epogen Inj) 10,000 units UNSCH PRN IV 12/06/16 12:15 12/14/16 16:39 (Gelfoam 12 Mm/7 Mm Top) 1 foam UNSCH PRN TOP 12/06/16 12:15 (Megace Liq) 400 mg DAILY PO 12/08/16 09:00 01/04/17 10:35 (Heparin Inj) 5,000 units Q12HR SQ 12/08/16 21:00 Hold 12/31/16 21:27 (Dilantin Liq) 300 mg Q12HR PO 12/08/16 21:00 01/04/17 10:34 (Flonase Evan Spr) 2 spray DAILY EACH NARE 12/18/16 12:00 01/04/17 10:38 Calcium Acetate 667 mg 667 mg TID PO 12/20/16 09:00 01/04/17 10:32 (1/2 NS 1000 ml Inj) 1,000 ml @ 65 mls/hr [id number] IV 12/20/16 10:00 Hold 12/24/16 21:10 (Protonix) 40 mg DAILY PO 12/25/16 10:30 01/04/17 10:31 Miscellaneous Information Patient in critical care unit? Ass... Q361D .XX 12/25/16 22:30 12/25/16 22:30 (Cardura) 10 mg HS PO 12/26/16 21:00 01/03/17 21:13 (Procardia Xl) 90 mg DAILY PO 12/27/16 09:00 01/04/17 10:31 (Pill Splitter) 1 ea UNSCH PRN OTHER 12/26/16 19:00 12/27/16 10:33 (Cardura) 4 mg DAILY PO 12/29/16 09:00 01/04/17 10:31 (Catapres) 0.1 mg Q8HR PO 01/03/17 22:00 01/04/17 05:33 Urinary Catheter: No Date of Insertion: Nov 15, 2016 Vascular Central Line Catheter: No A/P Assessment and Plan 1. Squamous cell carcinoma of the lung: Status post stent placement in the left main bronchus at [facility]. Patient required to be intubated and mechanically ventilated, status post extubation. Patient had a complicated stay with a stent in the left main bronchus. Oncology consulted. Radiation oncology consulted and radiation therapy was recommended. Patient underwent radiation simulation on 12/23/16. XRT will possibly next week to plan and then the patient will need approximately over 6 weeks of treatment. Oncology following. 01/04 discussed the case with Kita the oncology PA. Since the patient was previously considering hospice care and comfort measures, radiotherapy planning was stopped, however the patient wants to continue with aggressive treatment. Oncology to talk to radiology to resume radiotherapy planning 2. Acute kidney injury: Active renal failure ATN due to PEA arrest. Patient required some treatments with hemodialysis which has been held, last treatment was on 12/17/16. Currently on IV fluids as per renal recommendations and renal function is improving. Lasix on hold since patient has a good urine output. IV Fluids held. sp IV Bumex with excellent urine output. Continue to monitor BUN/creatinine, strict I's and O's and avoid nephrotoxic medications. 01/04 Creatinine continues to trend down. Follow-up nephrology recommendations. Permacath likely to be taken out soon. Continue to monitor bun/creatinine, strict I's O's, avoid nephrotoxins. 3. Hypertension: Blood pressure uncontrolled versus only with elevated blood pressure into the systolic 160s. BP much improved and seems to be stable. Continue procardia 90 mg daily. Continue Cardura 10 mg at bedtime and 4 mg in am. Continue clonidine prn. 01/03 BP mostly elevated and uncontrolled. will start Clonidine 0.1 mg every 8 hrs. 01/04 blood pressure with improved control. Continue Procardia and the milligrams daily. Continue Cardura 10 g at bedtime and 4 mg in a.m. continue clonidine 0.1 mg every 8 hours which was started on 01/03/17. 4. Hypokalemia: K low today. We'll replace orally. Continue to monitor BMP. 5. BPH: On doxazosin. 6. Bladder mass: Neurology consulted. For cystoscopy when the patient stronger in the future. Urology will need to be consulted if patient optimal condition for surgery/procedure which will require anesthesia. 7. Acute respiratory failure: Patient again had an episode of oxygen desaturation. Chest x-ray reviewed by me shows complete whiteout of the left lung and some pulmonary vascular congestion on the right. I will hold IV fluids and give IV Bumex. Continue DuoNeb as needed. Echocardiogram 55-60%. Continue supplemental O2 to keep o2 sat > 92%. 8. Klebsiella pneumonia: Bronchus sputum positive for Klebsiella, treated at [facility] and finish course of antibiotics as per previous records. Blood cultures was negative. 9. Iron deficiency anemia: Low iron stores. Patient is status post EGD which found gastritis, duodenitis and esophagitis being treated with PPI. 12/31 For colonoscopy in am. Patient with iron deficiency anemia and Hemoccult positive stool. 01/02 Patient is sp EGD and colonoscopy on 01/01 with findings of esophagitis and descending colon polyp. Patient had a repeat colonoscopy again today due to poor prep without major findings. Continue protonix 40 mg po daily. 10. Severe protein calorie malnutrition: Albumin 1.7 on admission. Patient is status post PEG placement on 12/11/16. Status post IV iron treatment. Pt tolerating Nocturnal TF'ing 6p to 6a. TF'ing held, for Dilantin dosing(one hour before and one hour after dosing). Continue Nepro oral supplement bid. Continue tube feedings with tray. 11. Left upper extremity superficial thrombophlebitis: Much improved. Treat with warm compresses. 12. UTI: Culture grew Nisa. Status post treatment. 13. Seizure disorder: Seem stable. Continue Dilantin. Seizure precautions. 14. DVT prophylaxis: SCDs, heparin subcutaneously SQ. 15. GI Prophylaxis: Continue PPI. 16. PT/OT daily - Will need therapy at rehab upon discharge. 17. Poor appetite: Better on Megace. Continue. 19. Acute hypercapnic respiratory failure:Resolved. Sp bipap now on nasal canula. Continue supplemental oxygen to keep oxygen saturation more than 92%. Pulmonology consulted - recommendations appreciated. Respiratory failure resolved. 20. Leukocytosis: WBC trending up. Patient is not coughing, denies diarrhea, afebrile. I will order a urinalysis since patient has an indwelling Lipscomb catheter and is at risk for infection. Will check urinalysis. Palliative care following. Discharge Planning Continue to monitor in the medical floor. Diego Sherwood MD Jan 04, 2017 11:21
--- NOTE | 2017-01-04 14:48 | HHI.NPPN ---
Subjective General Problems: Anemia, Edema Renal Failure: Acute History of Present Illness 71 y/o male pt. Transferred to [facility] from [facility] with renal failure from possible ATN. Review of Systems General Constitutional: Fatigue General Remarks generalized weakness Objective Data Data 01/03/17 01/04/17 19:00 07:00 Intake Total 720 ml 240 ml Output Total 1350 ml 600 ml Balance -630 ml -360 ml Intake Oral 720 ml 240 ml Output Urine Total 1350 ml 600 ml # Bowel Movements 0 Vital Signs Date Time Temp Pulse Resp B/P Pulse Ox O2 Delivery O2 Flow Rate FiO2 01/04/17 12:00 98.0 97 18 136/68 92 01/04/17 10:51 95 Nasal Cannula 2.00 01/04/17 09:00 96 Nasal Cannula 2.00 01/04/17 08:00 97.5 85 18 136/89 96 01/04/17 04:00 98.7 84 18 151/86 98 01/04/17 00:00 97.4 92 18 152/80 94 01/03/17 21:47 95 Nasal Cannula 2.00 01/03/17 21:20 85 01/03/17 21:20 96 Nasal Cannula 2.00 29 01/03/17 20:00 97.4 90 19 130/65 96 01/03/17 16:00 97.2 111 16 130/60 95 -: 01/04/17 0730 01/04/17 0730 Tubes & Lines: Miranda Tubes & Lines Comment PEG, Physical Exam General Appearance: Well Developed, Well Nourished, No Acute Distress, Comfortable Eyes Eye Exam: Pupils Equal, Pupils Reactive Throat Throat Exam: Oral Mucosa [place] & Moist Pulmonary Resp Exam: Breath Sounds Equal, No Distress, Decreased Bases, Diminished Breath Sounds Cardiology CV Exam: Regular, Normal Sinus Rhythm, Good Perfusion, Murmur Gastrointestinal/Abdomen GI Exam: Soft, Non-Tender, Bowel Sounds Present, Positive Bowel Movement Genitourinary Exam: Clear Urine Musculoskeletal MS Exam: Joints Intact, Atrophy, Unable to Ambulate Integumentary Skin Exam: Clear, Warm, Dry, Intact Extremeties Extremities Exam: No Edema, Pedal Pulses Palpable Neurologic Neuro Exam: Alert, Awake, Oriented, Speech Clear, Moving All Extremities Psychiatric Psych Exam: Appropriate Responses Assessment/Plan Discussed Condition With: Patient, Son Assessment Summary: TODD/Acute Renal Failure, Acute Tubular Necrosis Problem List: (1) Acute renal failure Plan: He had creatinine 0.77 in October Renal failure ATN due to PEA arrest HD started around 11/08 has been on hold with last treatment 12/17 he appears to be in renal recovery creatinine is stable and he has good urine output the potassium has been replaced monitor renal function for one more day, remove PermCath tomorrow if improved avoid IVF, nephrotoxins Dr. Borjas to follow-up on Friday (2) Anemia Plan: Hb low but stable hematology/oncology following given a dose of epogen Hemoccult positive , scoped with no active bleed identified (3) Bronchiolar obstruction Plan: s/p stent placement, dx of squamous cell carcinoma med oncology following (4) Mass of left lung Plan: oncology has evaluated, appreciate their recommendations he is unstable for systemic treatment at this time he was to have radiation therapy, however hospice was recommended and the patient declined, he is still interested in radiation (5) Acute respiratory failure Plan: extubated, on nasal cannula continuous speech therapy has signed off (6) Bladder mass Plan: urology following, bladder US report noted he will need cystoscopy with TURBT when more stable (7) UTI (urinary tract infection) Plan: resolved, off antibiotics remove miranda when evaluated by urology given bladder mass Plan patient was seen and examined. Renal function little changed compared to yesterday. May be his new baseline? Non oliguric, no indication for dialysis. To leave PermCath in until Friday. Problem Qualifiers (1) UTI (urinary tract infection): Maddie Hobbs MD Jan 04, 2017 14:48
--- NOTE | 2017-01-04 17:28 | HHI.PR ---
Subjective Remarks . Afebrile. Anxious to have radiation started had EGD, has esophagitis Tolerates PO on supplemental 02 Off TF Objective Vital Signs Vital Signs Date Time Temp Pulse Resp B/P Pulse Ox O2 Delivery O2 Flow Rate FiO2 01/04/17 12:00 98.0 97 18 136/68 92 01/04/17 10:51 95 Nasal Cannula 2.00 01/04/17 09:00 96 Nasal Cannula 2.00 01/04/17 08:00 97.5 85 18 136/89 96 01/04/17 04:00 98.7 84 18 151/86 98 01/04/17 00:00 97.4 92 18 152/80 94 01/03/17 21:47 95 Nasal Cannula 2.00 01/03/17 21:20 85 01/03/17 21:20 96 Nasal Cannula 2.00 29 01/03/17 20:00 97.4 90 19 130/65 96 I/O 01/03/17 01/03/17 01/03/17 01/04/17 01/04/17 01/04/17 07:00 15:00 23:00 07:00 15:00 23:00 Intake Total 1180 ml 720 ml 240 ml 1080 ml Output Total 1000 ml 1350 ml 600 ml 900 ml Balance 180 ml -630 ml -360 ml 180 ml Intake Oral 480 ml 720 ml 240 ml 1080 ml Tube Feeding 550 ml Other 150 ml Output Urine Total 1000 ml 1350 ml 600 ml 900 ml # Bowel Movements 0 0 Result Diagram: 01/04/1730 01/04/17 0730 Objective Remarks GENERAL: Patient is lying in bed in NAD SKIN: Warm and dry. HEAD: Normocephalic. EYES: No scleral icterus. No injection or drainage. NECK: Supple, trachea midline. No JVD or lymphadenopathy. CARDIOVASCULAR: Regular rate and rhythm without murmurs, gallops, or rubs. RESPIRATORY: Breath sounds equal bilaterally. No accessory muscle use. GASTROINTESTINAL: Abdomen soft, non-tender, nondistended. MUSCULOSKELETAL: No cyanosis, or edema. BACK: Nontender without obvious deformity. No CVA tenderness. 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 Patient underwent radiation simulation on 12/23/16. XRT will possibly start next week . Heme Onc is following Monitor renal function, avoid nephrotoxins, Renal is following. HD per renal. Supplement 02 to keep sat >90% Encourage PO intake. Valeriy Wilkins MD Jan 04, 2017 17:28
[2017-01-04] MEDS: ATORVASTATIN 40 MG TAB PO SCH (20:31)
[2017-01-05] VITALS (9 sets, daily range): BP systolic 121–158; BP diastolic 68–86; PULSE 86–91; RESP 17–24; TEMP 98–99.4; O2SAT 94–99
[2017-01-05] MEDS: cloNIDine HCL 0.1 MG TAB PO SCH ×4 (00:54→22:36)
[2017-01-05 04:35] LABS: BACTERIA, URINE RARE /hpf; BLOOD, URINE SMALL (NEG); GLUCOSE,URINE NEG (NEG); KETONE, URINE NEG (NEG); MUCUS URINE FEW /lpf (OCC); NITRITE,URINE NEG (NEG); PH, URINE 6.5 (5.0-8.5); URINE COLOR LIGHT-YELLOW (YELLW/STRAW)
[2017-01-05 04:41] LABS: COMMENT (UR) CATH-CULTURE IND; CULTURE IF INDICATED CATH CULTURE IND
[2017-01-05] MEDS: DOCUSATE SODIUM 100 MG CAP PO SCH ×2 (05:36→17:23)
[2017-01-05] MEDS: SODIUM CHLORIDE 0.9% FLUSH 5 ML FLUSH FLUSH SCH ×2 (09:00→22:39)
[2017-01-05] MEDS: PHENYTOIN SUSP 100 MG/4 ML CUP PO SCH ×2 (10:11→22:37)
[2017-01-05] MEDS: FERROUS SULFATE 300 MG /5ML UDC PO SCH (10:11)
[2017-01-05] MEDS: CALCIUM ACETATE 667 MG CAP PO SCH ×3 (10:12→17:23)
[2017-01-05] MEDS: DOXAZOSIN MESYLATE 4 MG TAB PO SCH ×2 (10:12→22:36)
[2017-01-05] MEDS: MEGESTROL ACETATE SUSP 400 MG/10 ML CUP PO SCH (10:12)
[2017-01-05] MEDS: NIFEdipine 90 MG SUSTAINED RELEASE TAB PO SCH (10:12)
[2017-01-05] MEDS: PANTOPRAZOLE SOD 40 MG DELAYED RELEASE TAB PO SCH (10:12)
[2017-01-05] MEDS: FLUTICASONE PROPIONATE 50 MCG/ACT 16 GM NASAL SPRAY EACH NARE SCH (10:15)
--- NOTE | 2017-01-05 10:57 | HHI.PR ---
Subjective Remarks Denies cp/sob denies fevers/chills no diarrhea Objective Vitals Vital Signs Date Time Temp Pulse Resp B/P Pulse Ox O2 Delivery O2 Flow Rate FiO2 01/05/17 08:00 99.4 86 18 158/86 94 01/05/17 07:48 95 Nasal Cannula 2.00 01/05/17 04:00 98.0 87 18 153/82 99 01/05/17 01:04 99.4 86 18 142/79 98 01/04/17 21:03 98 Nasal Cannula 2.00 01/04/17 21:00 90 01/04/17 21:00 98 Nasal Cannula 2.00 29 01/04/17 20:49 99.0 85 18 146/78 98 01/04/17 16:00 98.2 88 18 136/82 96 01/04/17 12:00 98.0 97 18 136/68 92 01/04/17 10:51 95 Nasal Cannula 2.00 I/O 01/04/17 01/04/17 01/04/17 01/05/17 01/05/17 01/05/17 07:00 15:00 23:00 07:00 15:00 23:00 Intake Total 1080 ml Output Total 900 ml 450 ml 450 ml Balance 180 ml -450 ml -450 ml Intake Oral 1080 ml Output Urine Total 900 ml 450 ml 450 ml # Bowel Movements 0 0 Result Diagram: 01/04/17 0730 01/04/17 0730 Imaging Last Impressions Chest X-Ray 12/25/16 0000 Signed Impressions: Service Date/Time: Sunday, December 25, 2016 08:59 - CONCLUSION: 1. Complete opacification of the left hemithorax unchanged from previous. 2. 4.5 cm masslike density on the right which appears to be fluid loculated in the fissure. This is decreased in size when compared to previous. 3. Dialysis catheter in good position. Patrick Shelton MD Upper Extremity Ultrasound 12/11/16 1506 Signed Impressions: Service Date/Time: Sunday, December 11, 2016 18:00 - CONCLUSION: Superficial thrombophlebitis, extensive edema and nonspecific fluid collections in the subcutaneous tissues. Shawn Reyes MD Head CT 12/11/16 0000 Signed Impressions: Service Date/Time: Sunday, December 11, 2016 20:00 - CONCLUSION: Slight atrophic and small vessel ischemic changes without any evidence for acute hemorrhage or mass effect. Shawn Reyes MD Renal Ultrasound 12/09/16 0000 Signed Impressions: Service Date/Time: Friday, December 09, 2016 15:16 - CONCLUSION: 1. 8.4 cm mass lesion at the base of the bladder. This may represent an intrinsic mass of the bladder versus a prominent anterior lobe of the prostate. 2. Otherwise, urinary bladder is partially decompressed with a Lipscomb catheter. 3. Both kidneys are sonographically normal. Roby Horta MD Objective Remarks GENERAL: This is a well-nourished, well-developed patient, in no apparent distress. CARDIOVASCULAR: Regular rate and regular rhythm without murmurs, gallops, or rubs. RESPIRATORY: Clear to auscultation on right side, left lung with decreased breath sounds. No wheezing, rhonchi or murmur auscultated. GASTROINTESTINAL: Abdomen soft, non-tender, nondistended. Normal, active bowel sounds. PEG c/d/i MUSCULOSKELETAL: Extremities without clubbing, cyanosis, or edema. NEURO: Alert & Oriented x4 to person, place, time, situation. Moves all ext x4 Procedures 12/11- EGD- esophagitis, gastritis, duodenitis PEG placement Medications and IVs Current Medications Medications (Trade) Dose Ordered Sig/Luis Carlos Route Start Time Stop Time Status Last Admin (NS Flush) 2 ml UNSCH PRN FLUSH 12/05/16 17:00 (NS Flush) 2 ml BID FLUSH 12/05/16 21:00 01/05/17 09:00 (Zofran Inj) 4 mg Q6H PRN IVP 12/05/16 18:00 (Dulcolax Supp) 10 mg DAILY PRN IN 12/05/16 18:00 (Colace) 100 mg Q12H PO 12/05/16 18:00 01/05/17 05:36 (Narcan Inj) 0.4 mg UNSCH PRN IV 12/05/16 17:00 (Ferrous Sulfate Liq) 300 mg DAILY PO 12/06/16 09:00 01/05/17 10:11 (Lipitor) 40 mg HS PO 12/05/16 21:00 01/04/17 20:31 (Lasix Liq) 40 mg DAILY TUBE 12/06/16 09:00 Hold 12/20/16 08:50 (Jacinda-Colace) 2 tab BID PRN PO 12/05/16 19:45 12/30/16 05:45 (Lactulose Liq) 30 ml TID PRN PO 12/05/16 19:45 Magnesium Hydroxide 30 ml 30 ml Q6H PRN PO 12/05/16 19:45 (NS 1000 ml Inj) 1,000 ml @ 0 mls/hr Q0M PRN IV 12/06/16 12:11 12/12/16 09:33 Heparin Sodium (Porcine) 8000 units 8,000 units UNSCH PRN IVF 12/06/16 12:15 Sodium Chloride 1,000 ml @ 200 mls/hr Q5H PRN IV 12/06/16 12:11 (NS 1000 ml Inj) 1,000 ml @ 0 mls/hr Q0M PRN IV 12/06/16 12:11 (Mannitol Inj) 12.5 gm UNSCH PRN IV 12/06/16 12:15 (Albumin 25% Inj) 25 gm UNSCH PRN IV 12/06/16 12:15 (NS Flush) 5 ml UNSCH PRN IVF 12/06/16 12:15 (Heparin Inj) UNSCH PRN .XX 12/06/16 12:15 12/14/16 16:39 (Gentamicin (Dialysis) Inj) 20 mg UNSCH PRN IV 12/06/16 12:15 12/14/16 16:39 (Zofran Inj) 4 mg UNSCH PRN IV 12/06/16 12:15 (Tylenol) 650 mg UNSCH PRN PO 12/06/16 12:15 12/14/16 07:54 (Benadryl) 25 mg UNSCH PRN PO 12/06/16 12:15 (Nitrostat Sl) 0.4 mg UNSCH PRN SL 12/06/16 12:15 (Catapres) 0.1 mg UNSCH PRN PO 12/06/16 12:15 12/19/16 06:27 (Epogen Inj) 10,000 units UNSCH PRN IV 12/06/16 12:15 12/14/16 16:39 (Gelfoam 12 Mm/7 Mm Top) 1 foam UNSCH PRN TOP 12/06/16 12:15 (Megace Liq) 400 mg DAILY PO 12/08/16 09:00 01/05/17 10:12 (Heparin Inj) 5,000 units Q12HR SQ 12/08/16 21:00 Hold 12/31/16 21:27 (Dilantin Liq) 300 mg Q12HR PO 12/08/16 21:00 01/05/17 10:11 (Flonase Evan Spr) 2 spray DAILY EACH NARE 12/18/16 12:00 01/05/17 10:15 Calcium Acetate 667 mg 667 mg TID PO 12/20/16 09:00 01/05/17 10:12 (1/2 NS 1000 ml Inj) 1,000 ml @ 65 mls/hr [id number] IV 12/20/16 10:00 Hold 12/24/16 21:10 (Protonix) 40 mg DAILY PO 12/25/16 10:30 01/05/17 10:12 Miscellaneous Information Patient in critical care unit? Ass... Q361D .XX 12/25/16 22:30 12/25/16 22:30 (Cardura) 10 mg HS PO 12/26/16 21:00 01/04/17 20:31 (Procardia Xl) 90 mg DAILY PO 12/27/16 09:00 01/05/17 10:12 (Pill Splitter) 1 ea UNSCH PRN OTHER 12/26/16 19:00 12/27/16 10:33 (Cardura) 4 mg DAILY PO 12/29/16 09:00 01/05/17 10:12 (Catapres) 0.1 mg Q8HR PO 01/03/17 22:00 01/05/17 05:36 Urinary Catheter: Yes Assessment to: Continue Lipscomb insert reason: Measure Accurate Output Date of Insertion: Nov 15, 2016 Vascular Central Line Catheter: Yes Assessment to: Continue Line: Central Venous Catheter A/P Assessment and Plan 1. Squamous cell carcinoma of the lung: Status post stent placement in the left main bronchus at [facility]. Patient required to be intubated and mechanically ventilated, status post extubation. Patient had a complicated stay with a stent in the left main bronchus. Oncology consulted. Radiation oncology consulted and radiation therapy was recommended. Patient underwent radiation simulation on 12/23/16. XRT will possibly next week to plan and then the patient will need approximately over 6 weeks of treatment. Oncology following. discussed the case with Kita the oncology PA. Since the patient was previously considering hospice care and comfort measures, radiotherapy planning was stopped, however the patient wants to continue with aggressive treatment. Oncology to talk to radiology to resume radiotherapy planning 2. Acute kidney injury: Active renal failure ATN due to PEA arrest. Patient required some treatments with hemodialysis which has been held, last treatment was on 12/17/16. Currently on IV fluids as per renal recommendations and renal function is improving. Lasix on hold since patient has a good urine output. IV Fluids held. sp IV Bumex with excellent urine output. Continue to monitor BUN/creatinine, strict I's and O's and avoid nephrotoxic medications. 01/05 Creatinine continues to trend down. Follow-up nephrology recommendations. Permacath likely to be removed today. Continue to monitor bun/creatinine, strict I's O's, avoid nephrotoxins. 3. Hypertension: Blood pressure uncontrolled versus only with elevated blood pressure into the systolic 160s. BP much improved and seems to be stable. Continue procardia 90 mg daily. Continue Cardura 10 mg at bedtime and 4 mg in am. Continue clonidine prn. 01/03 BP mostly elevated and uncontrolled. will start Clonidine 0.1 mg every 8 hrs. 01/04 blood pressure with improved control. Continue Procardia and the milligrams daily. Continue Cardura 10 g at bedtime and 4 mg in a.m. continue clonidine 0.1 mg every 8 hours which was started on 01/03/17. 01/05 bp stable. 4. Hypokalemia: Continue to monitor BMP and replace as needed. 5. BPH: On doxazosin. 6. Bladder mass: Neurology consulted. For cystoscopy when the patient stronger in the future. Urology will need to be consulted if patient optimal condition for surgery/procedure which will require anesthesia. 7. Acute respiratory failure: Patient again had an episode of oxygen desaturation. Chest x-ray reviewed by me shows complete whiteout of the left lung and some pulmonary vascular congestion on the right. I will hold IV fluids and give IV Bumex. Continue DuoNeb as needed. Echocardiogram 55-60%. Continue supplemental O2 to keep o2 sat > 92%. 8. Klebsiella pneumonia: Bronchus sputum positive for Klebsiella, treated at [facility] and finish course of antibiotics as per previous records. Blood cultures was negative. 9. Iron deficiency anemia: Low iron stores. Patient is status post EGD which found gastritis, duodenitis and esophagitis being treated with PPI. 12/31 For colonoscopy in am. Patient with iron deficiency anemia and Hemoccult positive stool. Patient is sp EGD and colonoscopy on 01/01 with findings of esophagitis and descending colon polyp. Patient had a repeat colonoscopy again today due to poor prep without major findings. Continue Protonix 40 mg po daily. 10. Severe protein calorie malnutrition: Albumin 1.7 on admission. Patient is status post PEG placement on 12/11/16. Status post IV iron treatment. Pt tolerating Nocturnal TF'ing 6p to 6a. TF'ing held, for Dilantin dosing(one hour before and one hour after dosing). Continue Nepro oral supplement bid. Continue tube feedings with tray. 11. Left upper extremity superficial thrombophlebitis: Much improved. Treat with warm compresses. 12. UTI: Culture grew Nisa. Status post treatment. 01/05 UA obtained on 01/05 with presence of leukocyte esterase and increased wbc. Will start IV Rocephin. follow cultures. Budding yeasts observed on urinalysis. Previously positive for Nisa glabrata. I will start the patient IV fluconazole and follow-up cultures if Nisa glabrata suppressant then will request an ID consultation since patient might need to be treated with voriconazole. 13. Seizure disorder: Seem stable. Continue Dilantin. Seizure precautions. 14. DVT prophylaxis: SCDs, heparin subcutaneously SQ. 15. GI Prophylaxis: Continue PPI. 16. PT/OT daily - Will need therapy at rehab upon discharge. 17. Poor appetite: Better on Megace. Continue. 19. Acute hypercapnic respiratory failure:Resolved. Sp bipap now on nasal canula. Continue supplemental oxygen to keep oxygen saturation more than 92%. Pulmonology consulted - recommendations appreciated. Respiratory failure resolved. 20. Leukocytosis: WBC trending up. Patient is not coughing, denies diarrhea, afebrile. I will order a urinalysis since patient has an indwelling Lipscomb catheter and is at risk for infection. 01/05 Leukocytosis likely due to UTI - Start IV Rocephin. Fu urine culture. Palliative care following. Discharge Planning Continue to monitor in the medical floor. Diego Sherwood MD Jan 05, 2017 10:57
[2017-01-05 11:19] LABS: BASOPHIL # 0.1 TH/MM3 (0-0.2); BASOPHIL % 0.4 % (0.0-2.0); EOSINOPHIL % 14.3 % (0.0-4.0); HEMATOCRIT 25.1 % (39.0-51.0); HEMO FLAGS DIFF FINAL; LYMPH % 6.6 % (9.0-44.0); LYMPHOCYTE # 0.9 TH/MM3 (1.0-4.8); MEAN CELL VOLUME 85.5 FL (80.0-100.0); MEAN CORPUSCULAR HEMOGLOBIN 27.3 PG (27.0-34.0); MONO % 8.4 % (0.0-8.0); NEUT % 70.3 % (16.0-70.0); PLATELET COUNT 299 TH/MM3 (150-450); RED BLOOD COUNT 2.94 MIL/MM3 (4.50-5.90); RED CELL DISTRIBUTION WIDTH 15.3 % (11.6-17.2); WHITE BLOOD COUNT 14.2 TH/MM3 (4.0-11.0)
[2017-01-05 11:40] LABS: BICARBONATE 24.3 MEQ/L (21.0-32.0); POTASSIUM 3.5 MEQ/L (3.5-5.1)
[2017-01-05] MEDS: cefTRIAXone INJ 1,000 MG in SODIUM CHLORIDE 0.9% INJ 100 ML IV SCH (12:05)
[2017-01-05] MEDS: FLUCONAZOLE 200 MG PREMIX BAG 100 ML IV SCH (12:05)
--- NOTE | 2017-01-05 18:15 | HHI.PR ---
Subjective Remarks . Afebrile. Anxious to have radiation started had EGD, has esophagitis Tolerates PO on supplemental 02 Objective Vital Signs Vital Signs Date Time Temp Pulse Resp B/P Pulse Ox O2 Delivery O2 Flow Rate FiO2 01/05/17 17:14 98 Nasal Cannula 2.00 01/05/17 16:00 98.4 88 20 121/69 96 01/05/17 12:00 98.7 91 24 154/68 98 01/05/17 08:00 99.4 86 18 158/86 94 01/05/17 08:00 Nasal Cannula 2.00 29 01/05/17 07:48 95 Nasal Cannula 2.00 01/05/17 04:00 98.0 87 18 153/82 99 01/05/17 01:04 99.4 86 18 142/79 98 01/04/17 21:03 98 Nasal Cannula 2.00 01/04/17 21:00 90 01/04/17 21:00 98 Nasal Cannula 2.00 29 01/04/17 20:49 99.0 85 18 146/78 98 I/O 01/04/17 01/04/17 01/04/17 01/05/17 01/05/17 01/05/17 07:00 15:00 23:00 07:00 15:00 23:00 Intake Total 1080 ml 920 ml Output Total 900 ml 450 ml 450 ml 1200 ml Balance 180 ml -450 ml -450 ml -280 ml Intake Oral 1080 ml 720 ml IV Total 200 ml Output Urine Total 900 ml 450 ml 450 ml 1200 ml # Bowel Movements 0 0 Result Diagram: 01/05/17 1100 01/05/17 1100 Objective Remarks GENERAL: Patient is lying in bed in NAD SKIN: Warm and dry. HEAD: Normocephalic. EYES: No scleral icterus. No injection or drainage. NECK: Supple, trachea midline. No JVD or lymphadenopathy. CARDIOVASCULAR: Regular rate and rhythm without murmurs, gallops, or rubs. RESPIRATORY: Breath sounds equal bilaterally. No accessory muscle use. GASTROINTESTINAL: Abdomen soft, non-tender, nondistended. MUSCULOSKELETAL: No cyanosis, or edema. BACK: Nontender without obvious deformity. No CVA tenderness. 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 Patient underwent radiation simulation on 12/23/16. XRT will possibly start next week . Heme Onc is following Monitor renal function, avoid nephrotoxins, Renal is following. HD per renal. Supplement 02 to keep sat >90% Encourage PO intake. Valeriy Wilkins MD Jan 05, 2017 18:15
[2017-01-05] MEDS ORDERED: ACETAMINOPHEN/HYDROcodone 325 MG/5 MG TAB PO ONE (20:45)
[2017-01-05] MEDS: ATORVASTATIN 40 MG TAB PO SCH (22:36)
[2017-01-06] VITALS (11 sets, daily range): BP systolic 119–152; BP diastolic 63–84; PULSE 78–107; RESP 16–18; TEMP 96.3–98.7; O2SAT 94–99
[2017-01-06] MEDS: cloNIDine HCL 0.1 MG TAB PO SCH ×3 (06:20→21:41)
[2017-01-06] MEDS: DOCUSATE SODIUM 100 MG CAP PO SCH ×2 (06:20→16:43)
[2017-01-06 06:43] LABS: AUTOMATED NEUTROPHIL # 8.6 TH/MM3 (1.8-7.7); BASOPHIL # 0.1 TH/MM3 (0-0.2); BASOPHIL % 0.4 % (0.0-2.0); EOSINOPHIL # 1.8 TH/MM3 (0-0.4); EOSINOPHIL % 14.7 % (0.0-4.0); HEMATOCRIT 25.9 % (39.0-51.0); HEMO FLAGS AUTO DIFF; LYMPH % 5.7 % (9.0-44.0); LYMPHOCYTE # 0.7 TH/MM3 (1.0-4.8); MEAN CELL VOLUME 87.4 FL (80.0-100.0); MEAN CORPUSCULAR HEMOGLOBIN 28.5 PG (27.0-34.0); MEAN CORPUSCULAR HGB CONC 32.6 % (32.0-36.0); MONO % 8.3 % (0.0-8.0); NEUT % 70.9 % (16.0-70.0); PLATELET COUNT 295 TH/MM3 (150-450); RED BLOOD COUNT 2.97 MIL/MM3 (4.50-5.90); RED CELL DISTRIBUTION WIDTH 15.2 % (11.6-17.2); WHITE BLOOD COUNT 12.1 TH/MM3 (4.0-11.0)
[2017-01-06 06:58] LABS: ANION GAP 11 MEQ/L (5-15); AST (GOT) 38 U/L (15-37); BICARBONATE 23.8 MEQ/L (21.0-32.0); BLOOD UREA NITROGEN 100 MG/DL (7-18); CHLORIDE 102 MEQ/L (98-107); GLOMERULAR FILTRATION RATE 22 ML/MIN (>89); MAGNESIUM 1.6 MG/DL (1.5-2.5); POTASSIUM 3.7 MEQ/L (3.5-5.1); SODIUM (NA) 137 MEQ/L (136-145)
[2017-01-06 07:04] LABS: ALKALINE PHOSPHATASE 90 U/L (45-117); ALT (GPT) 44 U/L (12-78); TOTAL BILIRUBIN ADULT 0.2 MG/DL (0.2-1.0)
[2017-01-06 08:03] LABS: EOSINOPHILS 15 % (0-4); POLYS (SEG NEUTROPHILS) 74 % (16-70); WBC DIFF SAMPLE 100
[2017-01-06 08:04] LABS: PLATELET ESTIMATE SMEAR NORMAL (NORMAL); PLATELET MORPHOLOGY NORMAL (NORMAL); SCAN/DIFF FINAL DIFF MANUAL
[2017-01-06] MEDS: SODIUM CHLORIDE 0.9% FLUSH 5 ML FLUSH FLUSH SCH ×2 (09:00→21:49)
[2017-01-06] MEDS: FERROUS SULFATE 300 MG /5ML UDC PO SCH (09:33)
[2017-01-06] MEDS: CALCIUM ACETATE 667 MG CAP PO SCH (09:33)
[2017-01-06] MEDS: NIFEdipine 90 MG SUSTAINED RELEASE TAB PO SCH (09:34)
[2017-01-06] MEDS: DOXAZOSIN MESYLATE 4 MG TAB PO SCH ×2 (09:34→21:42)
[2017-01-06] MEDS: PANTOPRAZOLE SOD 40 MG DELAYED RELEASE TAB PO SCH (09:34)
[2017-01-06] MEDS: PHENYTOIN SUSP 100 MG/4 ML CUP PO SCH ×2 (09:34→21:41)
[2017-01-06] MEDS: MEGESTROL ACETATE SUSP 400 MG/10 ML CUP PO SCH (09:34)
[2017-01-06] MEDS: FLUCONAZOLE 200 MG PREMIX BAG 100 ML IV SCH (09:35)
[2017-01-06] MEDS: cefTRIAXone INJ 1,000 MG in SODIUM CHLORIDE 0.9% INJ 100 ML IV SCH (09:46)
[2017-01-06] MEDS: FLUTICASONE PROPIONATE 50 MCG/ACT 16 GM NASAL SPRAY EACH NARE SCH (09:46)
--- NOTE | 2017-01-06 09:47 | PD.ONC.PN ---
Subjective Subjective Remarks Afebrile overnight. Patient resting comfortably. States he has decided he wants to do radiation before making arrangements to go home to [place]. Objective Data Date Time Temp Pulse Resp B/P Pulse Ox O2 Delivery O2 Flow Rate FiO2 01/06/17 08:18 94 Nasal Cannula 2.00 01/06/17 04:00 97.9 85 17 149/81 96 01/06/17 00:00 96.5 84 17 152/81 96 01/05/17 20:40 Nasal Cannula 2.00 29 01/05/17 20:05 87 01/05/17 20:00 98.1 87 17 135/72 95 01/05/17 17:14 98 Nasal Cannula 2.00 01/05/17 16:00 98.4 88 20 121/69 96 01/05/17 12:00 98.7 91 24 154/68 98 01/06/17 01/06/17 01/06/17 07:00 15:00 23:00 Intake Total 970 ml Output Total 950 ml Balance 20 ml Result Diagram: 01/06/1721 01/06/17 0621 Laboratory Results Laboratory Tests Test 01/05/17 01/06/17 11:00 06:21 White Blood Count 14.2 TH/MM3 12.1 TH/MM3 Red Blood Count 2.94 MIL/MM3 2.97 MIL/MM3 Hemoglobin 8.0 GM/DL 8.5 GM/DL Hematocrit 25.1 % 25.9 % Mean Corpuscular Volume 85.5 FL 87.4 FL Mean Corpuscular Hemoglobin 27.3 PG 28.5 PG Mean Corpuscular Hemoglobin 32.0 % 32.6 % Concent Red Cell Distribution Width 15.3 % 15.2 % Platelet Count 299 TH/MM3 295 TH/MM3 Mean Platelet Volume 6.9 FL 6.9 FL Neutrophils (%) (Auto) 70.3 % 70.9 % Lymphocytes (%) (Auto) 6.6 % 5.7 % Monocytes (%) (Auto) 8.4 % 8.3 % Eosinophils (%) (Auto) 14.3 % 14.7 % Basophils (%) (Auto) 0.4 % 0.4 % Neutrophils # (Auto) 10.0 TH/MM3 8.6 TH/MM3 Lymphocytes # (Auto) 0.9 TH/MM3 0.7 TH/MM3 Monocytes # (Auto) 1.2 TH/MM3 1.0 TH/MM3 Eosinophils # (Auto) 2.0 TH/MM3 1.8 TH/MM3 Basophils # (Auto) 0.1 TH/MM3 0.1 TH/MM3 CBC Comment DIFF FINAL AUTO DIFF Differential Comment FINAL DIFF MANUAL Sodium Level 135 MEQ/L 137 MEQ/L Potassium Level 3.5 MEQ/L 3.7 MEQ/L Chloride Level 100 MEQ/L 102 MEQ/L Carbon Dioxide Level 24.3 MEQ/L 23.8 MEQ/L Anion Gap 11 MEQ/L 11 MEQ/L Blood Urea Nitrogen 101 MG/DL 100 MG/DL Creatinine 2.80 MG/DL 2.90 MG/DL Estimat Glomerular Filtration 23 ML/MIN 22 ML/MIN Rate Random Glucose 135 MG/DL 112 MG/DL Calcium Level 8.0 MG/DL 8.7 MG/DL Differential Total Cells 100 Counted Neutrophils % (Manual) 74 % Lymphocytes % 4 % Monocytes % 7 % Eosinophils % 15 % Neutrophils # (Manual) 9.0 TH/MM3 Platelet Estimate NORMAL Platelet Morphology Comment NORMAL Red Cell Morphology Comment NORMAL Phosphorus Level 3.1 MG/DL Magnesium Level 1.6 MG/DL Total Bilirubin 0.2 MG/DL Aspartate Amino Transf 38 U/L (AST/SGOT) Alanine Aminotransferase 44 U/L (ALT/SGPT) Alkaline Phosphatase 90 U/L Total Protein 7.2 GM/DL Albumin 2.0 GM/DL Culture Results Microbiology Date/Time Procedure Status Source Growth 01/05/17 03:30 Urine Culture Received Urine Catheterized Urine Pending Administered Medications Medications (Trade) Dose Ordered Sig/Luis Carlos Route PRN Reason Start Time Stop Time Status Last Admin Dose Admin IV Flush (NS Flush) 2 ml BID FLUSH 12/05/16 21:00 01/05/17 22:39 Docusate Sodium (Colace) 100 mg Q12H PO 12/05/16 18:00 01/06/17 06:20 Ferrous Sulfate (Ferrous Sulfate Liq) 300 mg DAILY PO 12/06/16 09:00 01/05/17 10:11 Atorvastatin Calcium (Lipitor) 40 mg HS PO 12/05/16 21:00 01/05/17 22:36 Furosemide (Lasix Liq) 40 mg DAILY TUBE 12/06/16 09:00 Hold 12/20/16 08:50 Senna/Docusate Sodium 2 tab 2 tab BID PRN PO CONSTIPATION 3/16/17 19:45 12/30/16 05:45 Sodium Chloride (NS 1000 ml Inj) 1,000 ml @ 0 mls/hr Q0M PRN IV For Prime & Rinse Back 12/06/16 12:11 12/12/16 09:33 Heparin Sodium (Porcine) (Heparin Inj) UNSCH PRN .XX WITH DIALYSIS 12/06/16 12:15 12/14/16 16:39 Gentamicin Sulfate (Gentamicin (Dialysis) Inj) 20 mg UNSCH PRN IV WITH DIALYSIS 12/06/16 12:15 12/14/16 16:39 Acetaminophen (Tylenol) 650 mg UNSCH PRN PO for headach, pain, temp > 101F 12/06/16 12:15 12/14/16 07:54 Clonidine (Catapres) 0.1 mg UNSCH PRN PO SYS BP GREATER THAN 160 MMHG 12/06/16 12:15 12/19/16 06:27 Epoetin Blanco (Epogen Inj) 10,000 units UNSCH PRN IV WITH DIALYSIS 12/06/16 12:15 12/14/16 16:39 Megestrol Acetate (Megace Liq) 400 mg DAILY PO 12/08/16 09:00 01/05/17 10:12 Heparin Sodium (Porcine) (Heparin Inj) 5,000 units Q12HR SQ 12/08/16 21:00 Hold 12/31/16 21:27 Phenytoin (Dilantin Liq) 300 mg Q12HR PO 12/08/16 21:00 01/05/17 22:37 Fluticasone Propionate (Flonase Evan Spr) 2 spray DAILY EACH NARE 12/18/16 12:00 01/05/17 10:15 Calcium Acetate 667 mg 667 mg TID PO 12/20/16 09:00 01/05/17 17:23 Sodium Chloride (1/2 NS 1000 ml Inj) 1,000 ml @ 65 mls/hr [id number] IV 12/20/16 10:00 Hold 12/24/16 21:10 Pantoprazole Sodium (Protonix) 40 mg DAILY PO 12/25/16 10:30 01/05/17 10:12 Miscellaneous Information Patient in critical care unit? Ass... Q361D .XX 12/25/16 22:30 12/25/16 22:30 Doxazosin Mesylate (Cardura) 10 mg HS PO 12/26/16 21:00 01/05/17 22:36 Nifedipine (Procardia Xl) 90 mg DAILY PO 12/27/16 09:00 01/05/17 10:12 Miscellaneous (Pill Splitter) 1 ea UNSCH PRN OTHER SEE LABEL COMMENTS 12/26/16 19:00 12/27/16 10:33 Doxazosin Mesylate (Cardura) 4 mg DAILY PO 12/29/16 09:00 01/05/17 10:12 Clonidine 0.1 mg 0.1 mg Q8HR PO 01/03/17 22:00 01/06/17 06:20 Ceftriaxone Sodium 1000 mg/ Sodium Chloride 100 ml @ 200 mls/hr Q24H IV 01/05/17 11:00 01/05/17 12:05 Fluconazole/ Sodium Chloride (Diflucan 200 Mg Premix Bag) 100 ml @ 100 mls/hr Q24H IV 01/05/17 11:00 01/05/17 12:05 Objective Remarks GENERAL: Weak elderly male, lying supine in bed. SKIN: Warm and dry. HEAD: Normocephalic. EYES: No scleral icterus. No injection or drainage. NECK: Supple, trachea midline. EXTREMITIES: generalized weakness. extremities without cyanosis. Assessment/Plan Assessment 71y/o with newly diagnosed Squamous cell carcinoma of the left mainstem bronchus as well as newly found bladder mass History: Mr. Jaime's history dates back to September 2016 when he began to develop increasing difficulty breathing as well as cough producing blood. He presented to [facility] on 10/22/2016 with acute worsening of difficulty breathing. He underwent imaging studies including a CT angiogram which revealed complete whiteout of the left lung, associated possible underlying mass / nodularity of the left hilum. He was shortly thereafter intubated. He had high volume hemoptysis. The patient was evaluated CT surgery here and after spending some time on a ventilator. He was transferred to the [facility] in [place] where he was evaluated by interventional pulmonology. 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 The left main bronchus was stented. The hemoptysis was controlled and he was eventually extubated. He did have a very complicated hospital stay though and while in the hospital he had a PEA arrest on 11/08/2016. He was resuscitated. He also developed acute renal failure and required hemodialysis. He has required a Dobbhoff tube for feeding purposes. 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 After his condition was stabilized he was transferred back to [facility] for continuation of care. Records from the [facility] indicated a bladder mass. Urology was consulted and they plan to do w/u once the patient is stronger. Plan 1. Squamous cell carcinoma of the left lung: patient initially simulated on 12/23 , but was then considering hospice. He has discussed with his family and decided against hospice and is now asking to start radiation. He states he has decided he wants to get radiation and then hopes to be discharged and go to [place] to be closer to family. So I have called and spoken with Dr. Uriostegui the radiation oncologist and let him know the patient's decision. they will begin the process of planning radiation again. I discussed this with the patient and let him know the planning process will take several days. he states he understands. 2. Renal insufficiency: this is improving. nephrology continuing to follow 3. Anemia: hgb stable around 8.5. monitor and transfuse as needed. 4. Bladder Mass. previously evaluated by Urology who planned to do workup if/ when patient becomes more stable. Elmira Ely Jan 06, 2017 09:47 Tevin Hobbs MD Jan 07, 2017 07:38
--- NOTE | 2017-01-06 10:31 | HHI.PR ---
Subjective Remarks patient denies cp/sob c/o right knee pain, denies trauma to knee denies fevers/chills no cough no diarrhea Eating well Objective Vitals Vital Signs Date Time Temp Pulse Resp B/P Pulse Ox O2 Delivery O2 Flow Rate FiO2 01/06/17 08:18 94 Nasal Cannula 2.00 01/06/17 04:00 97.9 85 17 149/81 96 01/06/17 00:00 96.5 84 17 152/81 96 01/05/17 20:40 Nasal Cannula 2.00 29 01/05/17 20:05 87 01/05/17 20:00 98.1 87 17 135/72 95 01/05/17 17:14 98 Nasal Cannula 2.00 01/05/17 16:00 98.4 88 20 121/69 96 01/05/17 12:00 98.7 91 24 154/68 98 I/O 01/05/17 01/05/17 01/05/17 01/06/17 01/06/17 01/06/17 07:00 15:00 23:00 07:00 15:00 23:00 Intake Total 920 ml 240 ml 970 ml Output Total 450 ml 1200 ml 850 ml 950 ml Balance -450 ml -280 ml -610 ml 20 ml Intake Oral 720 ml 240 ml 240 ml IV Total 200 ml Tube Feeding 610 ml Other 120 ml Output Urine Total 450 ml 1200 ml 850 ml 950 ml # Bowel Movements 0 Result Diagram: 01/06/17 0621 01/06/17 0621 Imaging Last Impressions Chest X-Ray 12/25/16 0000 Signed Impressions: Service Date/Time: Sunday, December 25, 2016 08:59 - CONCLUSION: 1. Complete opacification of the left hemithorax unchanged from previous. 2. 4.5 cm masslike density on the right which appears to be fluid loculated in the fissure. This is decreased in size when compared to previous. 3. Dialysis catheter in good position. Patrick Shelton MD Upper Extremity Ultrasound 12/11/16 1506 Signed Impressions: Service Date/Time: Sunday, December 11, 2016 18:00 - CONCLUSION: Superficial thrombophlebitis, extensive edema and nonspecific fluid collections in the subcutaneous tissues. Shawn Reyes MD Head CT 12/11/16 0000 Signed Impressions: Service Date/Time: Sunday, December 11, 2016 20:00 - CONCLUSION: Slight atrophic and small vessel ischemic changes without any evidence for acute hemorrhage or mass effect. Shawn Reyes MD Renal Ultrasound 12/09/16 0000 Signed Impressions: Service Date/Time: Friday, December 09, 2016 15:16 - CONCLUSION: 1. 8.4 cm mass lesion at the base of the bladder. This may represent an intrinsic mass of the bladder versus a prominent anterior lobe of the prostate. 2. Otherwise, urinary bladder is partially decompressed with a Lipscomb catheter. 3. Both kidneys are sonographically normal. Roby Horta MD Objective Remarks GENERAL: This is a well-nourished, well-developed patient, in no apparent distress. CARDIOVASCULAR: Regular rate and regular rhythm without murmurs, gallops, or rubs. RESPIRATORY: Clear to auscultation on right side, left lung with decreased breath sounds. No wheezing, rhonchi or murmur auscultated. GASTROINTESTINAL: Abdomen soft, non-tender, nondistended. Normal, active bowel sounds. PEG c/d/i MUSCULOSKELETAL: Extremities without clubbing, cyanosis, or edema. NEURO: Alert & Oriented x4 to person, place, time, situation. Moves all ext x4 Procedures 12/11- EGD- esophagitis, gastritis, duodenitis PEG placement Medications and IVs Current Medications Medications (Trade) Dose Ordered Sig/Luis Carlos Route Start Time Stop Time Status Last Admin (NS Flush) 2 ml UNSCH PRN FLUSH 12/05/16 17:00 (NS Flush) 2 ml BID FLUSH 12/05/16 21:00 01/06/17 09:00 (Zofran Inj) 4 mg Q6H PRN IVP 12/05/16 18:00 (Dulcolax Supp) 10 mg DAILY PRN UT 12/05/16 18:00 (Colace) 100 mg Q12H PO 12/05/16 18:00 01/06/17 06:20 (Narcan Inj) 0.4 mg UNSCH PRN IV 12/05/16 17:00 (Ferrous Sulfate Liq) 300 mg DAILY PO 12/06/16 09:00 01/06/17 09:33 (Lipitor) 40 mg HS PO 12/05/16 21:00 01/05/17 22:36 (Lasix Liq) 40 mg DAILY TUBE 12/06/16 09:00 Hold 12/20/16 08:50 (Jacinda-Colace) 2 tab BID PRN PO 12/05/16 19:45 12/30/16 05:45 (Lactulose Liq) 30 ml TID PRN PO 12/05/16 19:45 Magnesium Hydroxide 30 ml 30 ml Q6H PRN PO 12/05/16 19:45 (NS 1000 ml Inj) 1,000 ml @ 0 mls/hr Q0M PRN IV 12/06/16 12:11 12/12/16 09:33 Heparin Sodium (Porcine) 8000 units 8,000 units UNSCH PRN IVF 12/06/16 12:15 Sodium Chloride 1,000 ml @ 200 mls/hr Q5H PRN IV 12/06/16 12:11 (NS 1000 ml Inj) 1,000 ml @ 0 mls/hr Q0M PRN IV 12/06/16 12:11 (Mannitol Inj) 12.5 gm UNSCH PRN IV 12/06/16 12:15 (Albumin 25% Inj) 25 gm UNSCH PRN IV 12/06/16 12:15 (NS Flush) 5 ml UNSCH PRN IVF 12/06/16 12:15 (Heparin Inj) UNSCH PRN .XX 12/06/16 12:15 12/14/16 16:39 (Gentamicin (Dialysis) Inj) 20 mg UNSCH PRN IV 12/06/16 12:15 12/14/16 16:39 (Zofran Inj) 4 mg UNSCH PRN IV 12/06/16 12:15 (Tylenol) 650 mg UNSCH PRN PO 12/06/16 12:15 12/14/16 07:54 (Benadryl) 25 mg UNSCH PRN PO 12/06/16 12:15 (Nitrostat Sl) 0.4 mg UNSCH PRN SL 12/06/16 12:15 (Catapres) 0.1 mg UNSCH PRN PO 12/06/16 12:15 12/19/16 06:27 (Epogen Inj) 10,000 units UNSCH PRN IV 12/06/16 12:15 12/14/16 16:39 (Gelfoam 12 Mm/7 Mm Top) 1 foam UNSCH PRN TOP 12/06/16 12:15 (Megace Liq) 400 mg DAILY PO 12/08/16 09:00 01/06/17 09:34 (Heparin Inj) 5,000 units Q12HR SQ 12/08/16 21:00 12/31/16 21:27 (Dilantin Liq) 300 mg Q12HR PO 12/08/16 21:00 01/06/17 09:34 (Flonase Evan Spr) 2 spray DAILY EACH NARE 12/18/16 12:00 01/06/17 09:46 Calcium Acetate 667 mg 667 mg TID PO 12/20/16 09:00 01/06/17 09:33 (1/2 NS 1000 ml Inj) 1,000 ml @ 65 mls/hr [id number] IV 12/20/16 10:00 Hold 12/24/16 21:10 (Protonix) 40 mg DAILY PO 12/25/16 10:30 01/06/17 09:34 Miscellaneous Information Patient in critical care unit? Ass... Q361D .XX 12/25/16 22:30 12/25/16 22:30 (Cardura) 10 mg HS PO 12/26/16 21:00 01/05/17 22:36 (Procardia Xl) 90 mg DAILY PO 12/27/16 09:00 01/06/17 09:34 (Pill Splitter) 1 ea UNSCH PRN OTHER 12/26/16 19:00 12/27/16 10:33 (Cardura) 4 mg DAILY PO 12/29/16 09:00 01/06/17 09:34 Clonidine 0.1 mg 0.1 mg Q8HR PO 01/03/17 22:00 01/06/17 06:20 Ceftriaxone Sodium 1000 mg/ Sodium Chloride 100 ml @ 200 mls/hr Q24H IV 01/05/17 11:00 01/06/17 09:46 (Diflucan 200 Mg Premix Bag) 100 ml @ 100 mls/hr Q24H IV 01/05/17 11:00 01/06/17 09:35 Urinary Catheter: No Date of Insertion: Nov 15, 2016 Vascular Central Line Catheter: Yes Assessment to: Continue Line: Central Venous Catheter A/P Assessment and Plan 1. Squamous cell carcinoma of the lung: Status post stent placement in the left main bronchus at [facility]. Patient required to be intubated and mechanically ventilated, status post extubation. Patient had a complicated stay with a stent in the left main bronchus. Oncology consulted. Radiation oncology consulted and radiation therapy was recommended. Patient underwent radiation simulation on 12/23/16. XRT will possibly next week to plan and then the patient will need approximately over 6 weeks of treatment. Oncology following. discussed the case with Kita the oncology PA. Since the patient was previously considering hospice care and comfort measures, radiotherapy planning was stopped, however the patient wants to continue with aggressive treatment. Medical oncology is already making arrangements. Radiotherapy will be resumed once planning is complete. 2. Acute kidney injury: Active renal failure AT due to PEA arrest. Patient required some treatments with hemodialysis which has been held, last treatment was on 12/17/16. Currently on IV fluids as per renal recommendations and renal function is improving. Lasix on hold since patient has a good urine output. IV Fluids held. sp IV Bumex with excellent urine output. Continue to monitor BUN/creatinine, strict I's and O's and avoid nephrotoxic medications. 01/05 Creatinine continues to trend down. 01/06 Creatinine slightly elevated up to 2.90 from 2.8. Management as per nephrology. Continue to monitor bun/creatinine, strict I's O's, avoid nephrotoxins. 3. Hypertension: Blood pressure uncontrolled versus only with elevated blood pressure into the systolic 160s. BP much improved and seems to be stable. Continue procardia 90 mg daily. Continue Cardura 10 mg at bedtime and 4 mg in am. Continue clonidine prn. 01/03 BP mostly elevated and uncontrolled. will start Clonidine 0.1 mg every 8 hrs. 01/04 blood pressure with improved control. Continue Procardia and the milligrams daily. Continue Cardura 10 g at bedtime and 4 mg in a.m. continue clonidine 0.1 mg every 8 hours which was started on 01/03/17. 01/05 bp stable. 4. Hypokalemia: Continue to monitor BMP and replace as needed. Hypokalemia resolved. 5. BPH: On doxazosin. 6. Bladder mass: Neurology consulted. For cystoscopy when the patient stronger in the future. Urology will need to be consulted if patient optimal condition for surgery/procedure which will require anesthesia. 7. Acute respiratory failure: Patient again had an episode of oxygen desaturation. Chest x-ray reviewed by me shows complete whiteout of the left lung and some pulmonary vascular congestion on the right. I will hold IV fluids and give IV Bumex. Continue DuoNeb as needed. Echocardiogram 55-60%. Continue supplemental O2 to keep o2 sat > 92%. 8. Klebsiella pneumonia: Bronchus sputum positive for Klebsiella, treated at [facility] and finish course of antibiotics as per previous records. Blood cultures was negative. 9. Iron deficiency anemia: Low iron stores. Patient is status post EGD which found gastritis, duodenitis and esophagitis being treated with PPI. 12/31 For colonoscopy in am. Patient with iron deficiency anemia and Hemoccult positive stool. Patient is sp EGD and colonoscopy on 01/01 with findings of esophagitis and descending colon polyp. Patient had a repeat colonoscopy again today due to poor prep without major findings. Continue Protonix 40 mg po daily. 10. Severe protein calorie malnutrition: Albumin 1.7 on admission. Patient is status post PEG placement on 12/11/16. Status post IV iron treatment. Pt tolerating Nocturnal TF'ing 6p to 6a. TF'ing held, for Dilantin dosing(one hour before and one hour after dosing). Continue Nepro oral supplement bid. Continue tube feedings with tray. 11. Left upper extremity superficial thrombophlebitis: Much improved. Treat with warm compresses. 12. UTI: Culture grew Nisa. Status post treatment. 01/05 UA obtained on 01/05 with presence of leukocyte esterase and increased wbc. Will start IV Rocephin. follow cultures. Budding yeasts observed on urinalysis. Previously positive for Nisa glabrata. I will start the patient IV fluconazole and follow-up cultures if Nisa glabrata suppressant then will request an ID consultation since patient might need to be treated with Micafungin. 13. Seizure disorder: Seem stable. Continue Dilantin. Seizure precautions. 14. DVT prophylaxis: SCDs, heparin subcutaneously SQ. 15. GI Prophylaxis: Continue PPI. 16. PT/OT daily - Will need therapy at rehab upon discharge. 17. Poor appetite: Better on Megace. Continue. 19. Acute hypercapnic respiratory failure:Resolved. Sp bipap now on nasal canula. Continue supplemental oxygen to keep oxygen saturation more than 92%. Pulmonology consulted - recommendations appreciated. Respiratory failure resolved. 20. Leukocytosis: WBC trending up. Patient is not coughing, denies diarrhea, afebrile. I will order a urinalysis since patient has an indwelling Lipscomb catheter and is at risk for infection. 01/05 Leukocytosis likely due to UTI - Start IV Rocephin. Fu urine culture. 01/06 Leukocytosis trending down. Continu IV Rocephin and IV fluconazole. Urine cultures pending. Palliative care following. Discharge Planning Continue to monitor in the medical floor. Diego Sherwood MD Jan 06, 2017 10:31
--- NOTE | 2017-01-06 12:07 | RADRPT ---
EXAM DATE/TIME: 01/06/2017 09:02 [place] COMPARISON: No previous studies available for comparison. INDICATIONS : Right leg pain. MEDICAL HISTORY : Hypercholesterolemia. Seizures. HTN. Dyspnea. Hemoptysis. Enlarged prostate. Back pain. Gait pro blems. SURGICAL HISTORY : Tonsillectomy. ENCOUNTER: Initial ACUITY: 1 day PAIN SCORE: 10/10 LOCATION: Right leg. TECHNIQUE: Venous ultrasound of the leg was performed from the inguinal ligament to the proximal calf. Real-palak e, color Doppler and spectral tracing, compression and augmentation techniques were used. FINDINGS: There is normal compressibility of the deep venous system from the inguinal region to the proximal ca lf. No echogenic clot is seen in the lumen of the common femoral, femoral, popliteal, and posterior tibial veins. There is a normal response of the venous system to proximal and distal augmentation an d respiration. CONCLUSION: Normal examination. Shawn Reyes MD on January 06, 2017 at 12:05 Board Certified Radiologist. This report was verified electronically.
--- NOTE | 2017-01-06 12:36 | HHI.NPPN ---
Subjective General Problems: Anemia, Edema Renal Failure: Acute History of Present Illness 71 y/o male pt. [place] [facility] [place] [facility] [place] with renal failure from possible ATN. Interval History He is being prepared for radiation therapy. Renal function is slightly worse but overall stable. (Marina Mcgovern) Review of Systems General Constitutional: Fatigue General Remarks generalized weakness (Marina Mcgovern) Objective Data Data 01/05/17 01/06/17 19:00 07:00 Intake Total 920 ml 1210 ml Output Total 1200 ml 1800 ml Balance -280 ml -590 ml Intake Oral 720 ml 480 ml IV Total 200 ml Tube Feeding 610 ml Other 120 ml Output Urine Total 1200 ml 1800 ml Vital Signs Date Time Temp Pulse Resp B/P Pulse Ox O2 Delivery O2 Flow Rate FiO2 01/06/17 08:45 98.1 91 18 149/84 98 01/06/17 08:18 94 Nasal Cannula 2.00 01/06/17 04:00 97.9 85 17 149/81 96 01/06/17 00:00 96.5 84 17 152/81 96 01/05/17 20:40 Nasal Cannula 2.00 29 01/05/17 20:05 87 01/05/17 20:00 98.1 87 17 135/72 95 01/05/17 17:14 98 Nasal Cannula 2.00 01/05/17 16:00 98.4 88 20 121/69 96 (Marina Mcgovern) -: 01/06/17 0621 01/06/17 0621 Imaging Last 72 hours Impressions Lower Extremity Ultrasound 01/06/17 0000 Signed Impressions: Service Date/Time: Friday, January 06, 2017 09:02 - CONCLUSION: Normal examination. Shawn Reyes MD Tubes & Lines: Miranda Tubes & Lines Comment PEG, (Marina Mcgovern) Physical Exam General Appearance: Well Developed, Well Nourished, No Acute Distress, Comfortable ( Marina Mcgovern) Eyes Eye Exam: Pupils Equal, Pupils Reactive (Marina Mcgovern) Throat Throat Exam: Oral Mucosa [place] & Moist (Marina Mcgovern) Pulmonary Resp Exam: Breath Sounds Equal, No Distress, Decreased Bases, Diminished Breath Sounds (Marina Mcgovern) Cardiology CV Exam: Regular, Normal Sinus Rhythm, Good Perfusion, Murmur (Marina Mcgovern) Gastrointestinal/Abdomen GI Exam: Soft, Non-Tender, Bowel Sounds Present, Positive Bowel Movement ( Marina Mcgovern) Genitourinary Exam: Clear Urine (Marina Mcgovern) Musculoskeletal MS Exam: Joints Intact, Atrophy, Unable to Ambulate (Marina Mcgovern) Integumentary Skin Exam: Clear, Warm, Dry, Intact (Marina cMgovern) Extremeties Extremities Exam: No Edema, Pedal Pulses Palpable (Marina Mcgovern) Neurologic Neuro Exam: Alert, Awake, Oriented, Speech Clear, Moving All Extremities ( Marina Mcgovern) Psychiatric Psych Exam: Appropriate Responses (Marina Mcgovern) Assessment/Plan Discussed Condition With: Patient, Son Assessment Summary: TODD/Acute Renal Failure, Acute Tubular Necrosis Problem List: (1) Acute renal failure Plan: He had creatinine 0.77 in October Renal failure ATN due to PEA arrest HD started around 11/08 has been on hold with last treatment 12/17 he appears to be in renal recovery renal function fluctuant, overall stable it remains to be seen what his new baseline may be wait for creatinine/BUN to further improve prior to removing PermCath stop Phoslo, monitor phosphorus level Pt aware of plan and is in agreement avoid IVF, gadolinium labs in am (2) Anemia Plan: Hb low but stable hematology/oncology following GI bleed ruled out (3) Bronchiolar obstruction Plan: s/p stent placement, dx of squamous cell carcinoma med oncology following (4) Mass of left lung Plan: oncology has evaluated, appreciate their recommendations he is unstable for systemic treatment at this time heis to have radiation therapy, treatment may begin in the next week (5) UTI (urinary tract infection) Plan: he was placed back on rocephin and fluconazole remove miranda when evaluated by urology given bladder mass (6) Bladder mass Plan: urology following, bladder US report noted he will need cystoscopy with TURBT when more stable (7) Acute respiratory failure Plan: extubated, on nasal cannula continuous speech therapy has signed off (Marina Mcgovern) Plan patient was seen and examined, agree with above assessment and plan. (Willian Borjas MD) Problem Qualifiers (1) UTI (urinary tract infection): Marina Mcgovern Jan 06, 2017 12:36 Willian Borjas MD Jan 07, 2017 11:26
[2017-01-06 14:30] LABS: CRITICAL VALUE YES
--- NOTE | 2017-01-06 19:20 | HHI.PR ---
Subjective Remarks . Afebrile. Anxious to have radiation started had EGD, has esophagitis Tolerates PO Breathing better Objective Vital Signs Vital Signs Date Time Temp Pulse Resp B/P Pulse Ox O2 Delivery O2 Flow Rate FiO2 01/06/17 16:00 98.3 86 18 119/66 94 01/06/17 14:00 96.5 107 16 147/83 94 01/06/17 12:00 96.3 82 18 144/78 99 01/06/17 08:45 98.1 91 18 149/84 98 01/06/17 08:18 94 Nasal Cannula 2.00 01/06/17 08:00 Nasal Cannula 2.00 01/06/17 08:00 87 01/06/17 04:00 97.9 85 17 149/81 96 01/06/17 00:00 96.5 84 17 152/81 96 01/05/17 20:40 Nasal Cannula 2.00 29 01/05/17 20:05 87 01/05/17 20:00 98.1 87 17 135/72 95 I/O 01/05/17 01/05/17 01/05/17 01/06/17 01/06/17 01/06/17 07:00 15:00 23:00 07:00 15:00 23:00 Intake Total 920 ml 240 ml 970 ml 940 ml Output Total 450 ml 1200 ml 850 ml 950 ml 800 ml Balance -450 ml -280 ml -610 ml 20 ml 140 ml Intake Oral 720 ml 240 ml 240 ml 940 ml IV Total 200 ml Tube Feeding 610 ml Other 120 ml Output Urine Total 450 ml 1200 ml 850 ml 950 ml 800 ml # Bowel Movements 0 Result Diagram: 01/06/1762001/06/17620 Objective Remarks GENERAL: Patient is lying in bed in NAD SKIN: Warm and dry. HEAD: Normocephalic. EYES: No scleral icterus. No injection or drainage. NECK: Supple, trachea midline. No JVD or lymphadenopathy. CARDIOVASCULAR: Regular rate and rhythm without murmurs, gallops, or rubs. RESPIRATORY: Breath sounds equal bilaterally. No accessory muscle use. GASTROINTESTINAL: Abdomen soft, non-tender, nondistended. MUSCULOSKELETAL: No cyanosis, or edema. BACK: Nontender without obvious deformity. No CVA tenderness. Neuro: Awake and alert A/P Assessment and Plan 1)Resp [place] 2)[id number] of left hemithorax- Unchanged 3)Squamous cell ca involving left main stem s/p endobronchial stent placement s/p XTR 4)s/p Hemoptysis 5)ARF 5)Anemia 6)Leukocytosis 7)HTN 8)UTI Plan Continue with oxygen keep sat >92% Bronchodilators (DuoNeb) NIPPV PRN for resp distress S/p stent placement in the left main bronchus at [facility]. Patient underwent radiation simulation on 12/23/16. XRT will possibly start next week . Heme Onc is following Monitor renal function, avoid nephrotoxins, Renal is following. HD per renal. Supplement 02 to keep sat >90% Encourage PO intake. Stable pulm status Valeriy Wilkins MD Jan 06, 2017 19:20
[2017-01-06] MEDS: ATORVASTATIN 40 MG TAB PO SCH (21:41)
[2017-01-06] MEDS: HEPARIN SODIUM - SQ 10,000 UNITS/ML VIAL SQ SCH (21:41)
[2017-01-07] VITALS (9 sets, daily range): BP systolic 99–162; BP diastolic 61–84; PULSE 79–109; RESP 16–20; TEMP 96.4–99.5; O2SAT 93–98
[2017-01-07 05:50] LABS: BICARBONATE 26.1 MEQ/L (21.0-32.0); POTASSIUM 4.1 MEQ/L (3.5-5.1)
[2017-01-07] MEDS: DOCUSATE SODIUM 100 MG CAP PO SCH ×2 (06:17→17:31)
[2017-01-07] MEDS: cloNIDine HCL 0.1 MG TAB PO SCH ×3 (06:17→22:04)
[2017-01-07] MEDS: MEGESTROL ACETATE SUSP 400 MG/10 ML CUP PO SCH (08:16)
[2017-01-07] MEDS: NIFEdipine 90 MG SUSTAINED RELEASE TAB PO SCH (08:17)
[2017-01-07] MEDS: FERROUS SULFATE 300 MG /5ML UDC PO SCH (08:17)
[2017-01-07] MEDS: PHENYTOIN SUSP 100 MG/4 ML CUP PO SCH ×2 (08:17→22:05)
[2017-01-07] MEDS: PANTOPRAZOLE SOD 40 MG DELAYED RELEASE TAB PO SCH (08:17)
[2017-01-07] MEDS: DOXAZOSIN MESYLATE 4 MG TAB PO SCH ×2 (08:17→22:12)
[2017-01-07] MEDS: HEPARIN SODIUM - SQ 10,000 UNITS/ML VIAL SQ SCH ×2 (08:18→22:04)
[2017-01-07] MEDS: SODIUM CHLORIDE 0.9% FLUSH 5 ML FLUSH FLUSH SCH ×2 (09:00→21:00)
[2017-01-07] MEDS: FLUTICASONE PROPIONATE 50 MCG/ACT 16 GM NASAL SPRAY EACH NARE SCH (09:00)
--- NOTE | 2017-01-07 10:27 | HHI.NPPN ---
Subjective General Problems: Anemia, Edema Renal Failure: Acute History of Present Illness 71 y/o male pt. Transferred to [facility] [place] from [facility] with renal failure from possible ATN. Interval History He is awake, no acute concerns. Renal function has not improved. (Marina Mcgovern) Review of Systems General Constitutional: Fatigue General Remarks generalized weakness (Marina Mcgovern) Objective Data Data 01/06/17 01/07/17 19:00 07:00 Intake Total 940 ml 940 ml Output Total 800 ml 1500 ml Balance 140 ml -560 ml Intake Oral 940 ml Tube Feeding 880 ml Other 60 ml Output Urine Total 800 ml 1500 ml # Bowel Movements 1 Vital Signs Date Time Temp Pulse Resp B/P Pulse Ox O2 Delivery O2 Flow Rate FiO2 01/07/17 08:00 96.4 83 20 145/80 98 01/07/17 04:00 97.0 79 17 158/70 95 01/07/17 00:00 99.5 83 17 162/75 93 01/06/17 21:30 Nasal Cannula 2.00 29 01/06/17 20:01 78 01/06/17 20:00 98.7 86 16 135/63 94 01/06/17 19:45 95 Nasal Cannula 2.00 01/06/17 16:00 98.3 86 18 119/66 94 01/06/17 14:00 96.5 107 16 147/83 94 01/06/17 12:00 96.3 82 18 144/78 99 (Marina Mcgovern) -: 01/06/17 0621 01/07/17 0441 Imaging Last 72 hours Impressions Lower Extremity Ultrasound 01/06/17 0000 Signed Impressions: Service Date/Time: Friday, January 06, 2017 09:02 - CONCLUSION: Normal examination. Shawn Reyes MD Tubes & Lines: Miranda Tubes & Lines Comment PEG, (Marina Mcgovern) Physical Exam General Appearance: Well Developed, Well Nourished, No Acute Distress, Comfortable ( Marina Mcgovern) Eyes Eye Exam: Pupils Equal, Pupils Reactive (Marina Mcgovern) Throat Throat Exam: Oral Mucosa [place] & Moist (Froilan,Marina B. SYSTEMS MANAGER) Pulmonary Resp Exam: Breath Sounds Equal, No Distress, Decreased Bases, Diminished Breath Sounds (Marina McgovernP) Cardiology CV Exam: Regular, Normal Sinus Rhythm, Good Perfusion, Murmur (Marina McgovernP) Gastrointestinal/Abdomen GI Exam: Soft, Non-Tender, Bowel Sounds Present, Positive Bowel Movement ( Marina McgovernP) Genitourinary Exam: Clear Urine (Marina McgovernP) Musculoskeletal MS Exam: Joints Intact, Atrophy, Unable to Ambulate (Marina Mcgovern SYSTEMS MANAGER) Integumentary Skin Exam: Clear, Warm, Dry, Intact (Marina McgovernP) Extremeties Extremities Exam: No Edema, Pedal Pulses Palpable (Marina Mcgovern) Neurologic Neuro Exam: Alert, Awake, Oriented, Speech Clear, Moving All Extremities ( Marina McgovernP) Psychiatric Psych Exam: Appropriate Responses (Marina Mcgovern) Assessment/Plan Discussed Condition With: Patient, Son Assessment Summary: TODD/Acute Renal Failure, Acute Tubular Necrosis Problem List: (1) Acute renal failure Plan: He had creatinine 0.77 in October Renal failure ATN due to PEA arrest HD started around 11/08 , last treatment on 12/17 he appears to be in renal recovery renal function fluctuant, slightly worse today it remains to be seen what his new baseline may be wait for creatinine/BUN to further improve prior to removing PermCath Phoslo was stopped, minimize medications when able avoid IVF labs in am Pt aware of plan and is in agreement (2) Anemia Plan: Hb low but stable hematology/oncology following GI bleed ruled out (3) Bronchiolar obstruction Plan: s/p stent placement, dx of squamous cell carcinoma med oncology following (4) Mass of left lung Plan: oncology has evaluated, appreciate their recommendations he is unstable for systemic treatment at this time he is to have radiation therapy, treatment may begin in the next week (5) UTI (urinary tract infection) Plan: WBC improving, he is afebrile he was placed back on rocephin and fluconazole, + yeast in UA, recurrent zabrina infection remove miranda when evaluated by urology given bladder mass (6) Bladder mass Plan: urology following, bladder US report noted he will need cystoscopy with TURBT when more stable, they have been reconsulted now that he is off HD and anticoagulation (7) Acute respiratory failure Plan: extubated, on nasal cannula continuous speech therapy has signed off (Marina Mcgovern) Plan patient was seen and examined. Renal function has not improved. No immediate need for dialysis. Poor prognosis. We will leave PermCath in for the time being. (Willian Borjas MD) Problem Qualifiers (1) UTI (urinary tract infection): Marina Mcgovern Jan 07, 2017 10:26 Willian Borjas MD Jan 08, 2017 09:33
[2017-01-07] MEDS: cefTRIAXone INJ 1,000 MG in SODIUM CHLORIDE 0.9% INJ 100 ML IV SCH (12:23)
[2017-01-07] MEDS: FLUCONAZOLE 200 MG PREMIX BAG 100 ML IV SCH (12:24)
--- NOTE | 2017-01-07 13:00 | HHI.PR ---
Subjective Patient symptoms today Pt known to from last month. 7cm bladder mass noted on CT scan and Bladder US. Unclear if mass is arising from bladder tumor or prostate gland. Urine presently clear. Pt now off dialysis and anticoagulation. Objective Vital Signs Vital Signs Date Time Temp Pulse Resp B/P Pulse Ox O2 Delivery O2 Flow Rate FiO2 01/07/17 11:02 94 Nasal Cannula 2.00 01/07/17 10:51 Nasal Cannula 2.00 29 01/07/17 08:00 96.4 83 20 145/80 98 01/07/17 04:00 97.0 79 17 158/70 95 01/07/17 00:00 99.5 83 17 162/75 93 01/06/17 21:30 Nasal Cannula 2.00 29 01/06/17 20:01 78 01/06/17 20:00 98.7 86 16 135/63 94 01/06/17 19:45 95 Nasal Cannula 2.00 01/06/17 16:00 98.3 86 18 119/66 94 01/06/17 14:00 96.5 107 16 147/83 94 Result Diagram: 01/06/17 0621 01/07/17 0441 Objective Remarks Abd: soft,nt,nd Lipscomb with clear urine 12/11 Abd: soft,nt,nd Lipscomb with clear urine 01/07 Abd: soft,nt,nd Lipscomb with clear urine Medications and IVs Current Medications Medications (Trade) Dose Ordered Sig/Luis Carlos Route Start Time Stop Time Status Last Admin (NS Flush) 2 ml UNSCH PRN FLUSH 12/05/16 17:00 (NS Flush) 2 ml BID FLUSH 12/05/16 21:00 01/07/17 09:00 (Zofran Inj) 4 mg Q6H PRN IVP 12/05/16 18:00 (Dulcolax Supp) 10 mg DAILY PRN NE 12/05/16 18:00 (Colace) 100 mg Q12H PO 12/05/16 18:00 01/07/17 06:17 (Narcan Inj) 0.4 mg UNSCH PRN IV 12/05/16 17:00 (Ferrous Sulfate Liq) 300 mg DAILY PO 12/06/16 09:00 01/07/17 08:17 (Lipitor) 40 mg HS PO 12/05/16 21:00 01/06/17 21:41 (Lasix Liq) 40 mg DAILY TUBE 12/06/16 09:00 Hold 12/20/16 08:50 (Jacinda-Colace) 2 tab BID PRN PO 12/05/16 19:45 12/30/16 05:45 (Lactulose Liq) 30 ml TID PRN PO 12/05/16 19:45 Magnesium Hydroxide 30 ml 30 ml Q6H PRN PO 12/05/16 19:45 (NS 1000 ml Inj) 1,000 ml @ 0 mls/hr Q0M PRN IV 12/06/16 12:11 12/12/16 09:33 Heparin Sodium (Porcine) 8000 units 8,000 units UNSCH PRN IVF 12/06/16 12:15 Sodium Chloride 1,000 ml @ 200 mls/hr Q5H PRN IV 12/06/16 12:11 (NS 1000 ml Inj) 1,000 ml @ 0 mls/hr Q0M PRN IV 12/06/16 12:11 (Mannitol Inj) 12.5 gm UNSCH PRN IV 12/06/16 12:15 (Albumin 25% Inj) 25 gm UNSCH PRN IV 12/06/16 12:15 (NS Flush) 5 ml UNSCH PRN IVF 12/06/16 12:15 (Heparin Inj) UNSCH PRN .XX 12/06/16 12:15 12/14/16 16:39 (Gentamicin (Dialysis) Inj) 20 mg UNSCH PRN IV 12/06/16 12:15 12/14/16 16:39 (Zofran Inj) 4 mg UNSCH PRN IV 12/06/16 12:15 (Tylenol) 650 mg UNSCH PRN PO 12/06/16 12:15 12/14/16 07:54 (Benadryl) 25 mg UNSCH PRN PO 12/06/16 12:15 (Nitrostat Sl) 0.4 mg UNSCH PRN SL 12/06/16 12:15 (Catapres) 0.1 mg UNSCH PRN PO 12/06/16 12:15 12/19/16 06:27 (Epogen Inj) 10,000 units UNSCH PRN IV 12/06/16 12:15 12/14/16 16:39 (Gelfoam 12 Mm/7 Mm Top) 1 foam UNSCH PRN TOP 12/06/16 12:15 (Megace Liq) 400 mg DAILY PO 12/08/16 09:00 01/07/17 08:16 (Heparin Inj) 5,000 units Q12HR SQ 12/08/16 21:00 01/07/17 08:18 (Dilantin Liq) 300 mg Q12HR PO 12/08/16 21:00 01/07/17 08:17 Fluticasone Propionate 2 spray 2 spray DAILY EACH NARE 12/18/16 12:00 01/07/17 09:00 (1/2 NS 1000 ml Inj) 1,000 ml @ 65 mls/hr [id number] IV 12/20/16 10:00 Hold 12/24/16 21:10 (Protonix) 40 mg DAILY PO 12/25/16 10:30 01/07/17 08:17 Miscellaneous Information Patient in critical care unit? Ass... Q361D .XX 12/25/16 22:30 12/25/16 22:30 (Cardura) 10 mg HS PO 12/26/16 21:00 01/06/17 21:42 (Procardia Xl) 90 mg DAILY PO 12/27/16 09:00 01/07/17 08:17 (Pill Splitter) 1 ea UNSCH PRN OTHER 12/26/16 19:00 12/27/16 10:33 (Cardura) 4 mg DAILY PO 12/29/16 09:00 01/07/17 08:17 Clonidine 0.1 mg 0.1 mg Q8HR PO 01/03/17 22:00 01/07/17 12:23 Ceftriaxone Sodium 1000 mg/ Sodium Chloride 100 ml @ 200 mls/hr Q24H IV 01/05/17 11:00 01/07/17 12:23 (Diflucan 200 Mg Premix Bag) 100 ml @ 100 mls/hr Q24H IV 01/05/17 11:00 01/07/17 12:24 Assessment and Plan Assessment and Plan 71 year-old male with findings of 7 x 6 cm bladder mass on recent renal bladder ultrasounds with squamous cell carcinoma the lung Patient will require cystoscopy with TURBT but will need to be medically stabilized and off anticoagulation medication prior to proceeding with TURBT. Also of question if patient requires general anesthesia will he be able to get off the vent postoperatively. Spinal anesthesia would be an option in this case. These issues need to be addressed at length prior to proceeding with TURBT. We'll consult with medical team members prior to proceeding with TURBT. We'll repeat renal bladder ultrasound in the meantime. Thank you for the consult and for allowing me to participate in the care of this patient. 12/10 71 year-old male with findings of bladder mass vs prostatic enlargement on recent renal bladder ultrasound with squamous cell carcinoma the lung Possible Cysto/TURBT in the future once pt is stronger Will need to hold SQ heparin 24 hours prior to surgery 12/11 71 year-old male with findings of bladder mass vs prostatic enlargement on recent renal bladder ultrasound Possible Cysto/TURBT in the future once pt is stronger 01/07 71 y.o male with bladder mass vs prostatic enlargement Recommend clearing Nisa UTI prior to proceeding with cysto/TURBT Will need medical clearance/risk assessment prior to proceeding with cysto/ TURBT documented please Continue to hold anticoagulation for now. Javier Connor DO Jan 07, 2017 13:00
--- NOTE | 2017-01-07 16:34 | HHI.PR ---
Subjective Remarks Spontaneous improvement in Hgb today. Radiation treatment pending. No new complaint from patient. Objective Vital Signs Date Time Temp Pulse Resp B/P Pulse Ox O2 Delivery O2 Flow Rate FiO2 01/07/17 12:00 97.3 85 20 151/84 96 01/07/17 11:02 94 Nasal Cannula 2.00 01/07/17 10:51 Nasal Cannula 2.00 29 01/07/17 08:00 96.4 83 20 145/80 98 01/07/17 04:00 97.0 79 17 158/70 95 01/07/17 00:00 99.5 83 17 162/75 93 01/06/17 21:30 Nasal Cannula 2.00 29 01/06/17 20:01 78 01/06/17 20:00 98.7 86 16 135/63 94 01/06/17 19:45 95 Nasal Cannula 2.00 I/O 01/06/17 01/06/17 01/06/17 01/07/17 01/07/17 01/07/17 07:00 15:00 23:00 07:00 15:00 23:00 Intake Total 970 ml 940 ml 60 ml 880 ml Output Total 950 ml 800 ml 350 ml 1150 ml Balance 20 ml 140 ml -290 ml -270 ml Intake Oral 240 ml 940 ml Tube Feeding 610 ml 880 ml Other 120 ml 60 ml Output Urine Total 950 ml 800 ml 350 ml 1150 ml # Bowel Movements 1 Result Diagram: 01/06/17 0621 01/07/17 0441 Objective Remarks GENERAL: A&Ox3, NAD SKIN: Warm and dry. HEAD: Normocephalic. EYES: No scleral icterus. No injection or drainage. NECK: Supple, trachea midline. No JVD or lymphadenopathy. CARDIOVASCULAR: Regular rate and rhythm without murmurs, gallops, or rubs. RESPIRATORY: Breath sounds equal bilaterally. No accessory muscle use. GASTROINTESTINAL: Abdomen soft, non-tender, nondistended. MUSCULOSKELETAL: No cyanosis, or edema. BACK: Nontender without obvious deformity. No CVA tenderness. Medications and IVs Administered Medications Medications (Trade) Dose Ordered Sig/Luis Carlos Route PRN Reason Start Time Stop Time Status Last Admin Dose Admin IV Flush (NS Flush) 2 ml BID FLUSH 12/05/16 21:00 01/07/17 09:00 Docusate Sodium (Colace) 100 mg Q12H PO 12/05/16 18:00 01/07/17 06:17 Ferrous Sulfate (Ferrous Sulfate Liq) 300 mg DAILY PO 12/06/16 09:00 01/07/17 08:17 Atorvastatin Calcium (Lipitor) 40 mg HS PO 12/05/16 21:00 01/06/17 21:41 Furosemide (Lasix Liq) 40 mg DAILY TUBE 12/06/16 09:00 Hold 12/20/16 08:50 Senna/Docusate Sodium 2 tab 2 tab BID PRN PO CONSTIPATION 12/05/16 19:45 12/30/16 05:45 Sodium Chloride (NS 1000 ml Inj) 1,000 ml @ 0 mls/hr Q0M PRN IV For Prime & Rinse Back 12/06/16 12:11 12/12/16 09:33 Heparin Sodium (Porcine) (Heparin Inj) UNSCH PRN .XX WITH DIALYSIS 12/06/16 12:15 12/14/16 16:39 Gentamicin Sulfate (Gentamicin (Dialysis) Inj) 20 mg UNSCH PRN IV WITH DIALYSIS 12/06/16 12:15 12/14/16 16:39 Acetaminophen (Tylenol) 650 mg UNSCH PRN PO for headach, pain, temp > 101F 12/06/16 12:15 12/14/16 07:54 Clonidine (Catapres) 0.1 mg UNSCH PRN PO SYS BP GREATER THAN 160 MMHG 12/06/16 12:15 12/19/16 06:27 Epoetin Blanco (Epogen Inj) 10,000 units UNSCH PRN IV WITH DIALYSIS 12/06/16 12:15 12/14/16 16:39 Megestrol Acetate (Megace Liq) 400 mg DAILY PO 12/08/16 09:00 01/07/17 08:16 Heparin Sodium (Porcine) (Heparin Inj) 5,000 units Q12HR SQ 12/08/16 21:00 01/07/17 08:18 Phenytoin (Dilantin Liq) 300 mg Q12HR PO 12/08/16 21:00 01/07/17 08:17 Fluticasone Propionate 2 spray 2 spray DAILY EACH NARE 12/18/16 12:00 01/07/17 09:00 Sodium Chloride (1/2 NS 1000 ml Inj) 1,000 ml @ 65 mls/hr [id number] IV 12/20/16 10:00 Hold 12/24/16 21:10 Pantoprazole Sodium (Protonix) 40 mg DAILY PO 12/25/16 10:30 01/07/17 08:17 Miscellaneous Information Patient in critical care unit? Ass... Q361D .XX 12/25/16 22:30 12/25/16 22:30 Doxazosin Mesylate (Cardura) 10 mg HS PO 12/26/16 21:00 01/06/17 21:42 Nifedipine (Procardia Xl) 90 mg DAILY PO 12/27/16 09:00 01/07/17 08:17 Miscellaneous (Pill Splitter) 1 ea UNSCH PRN OTHER SEE LABEL COMMENTS 12/26/16 19:00 12/27/16 10:33 Doxazosin Mesylate (Cardura) 4 mg DAILY PO 12/29/16 09:00 01/07/17 08:17 Clonidine 0.1 mg 0.1 mg Q8HR PO 01/03/17 22:00 01/07/17 12:23 Ceftriaxone Sodium 1000 mg/ Sodium Chloride 100 ml @ 200 mls/hr Q24H IV 01/05/17 11:00 01/07/17 12:23 Fluconazole/ Sodium Chloride (Diflucan 200 Mg Premix Bag) 100 ml @ 100 mls/hr Q24H IV 01/05/17 11:00 01/07/17 12:24 A/P Problem List: (1) Weakness ICD Code: R53.1 Assessment & Plan: PT continued May need PT at discharge (2) Squamous cell lung cancer ICD Code: C34.90 Assessment & Plan: Radiation treatments Oncology following No hemoptysis (3) Anemia ICD Code: D64.9 Assessment & Plan: Improving (8.0 to 8.5) hgb today. Follow CBC (4) Acute renal failure ICD Code: N17.9 Assessment & Plan: Slightly worsened Follow renal function Global stability may be present if his new baseline is 2.5-3.0 Problem Qualifiers (1) Squamous cell lung cancer: Qualified Code: C34.92 - Squamous cell lung cancer, left Patrick Taylor MD Jan 07, 2017 16:34
--- NOTE | 2017-01-07 16:59 | HHI.HCPN ---
Reason for visit a. To assist with evaluation and management of symptoms including: dyspnea, weakness, malnutrition b. To assist medical decision maker(s) with: better understanding of current medical conditions; weighing benefits/burdens of medical treatment options; making medical treatment decisions. Subjective/Interval History Pt seen to follow up on dyspnea , goals. Voicemail received from daughter-in- law requesting update prior to my arrival on unit Patient has remained stable. s/p colonoscopy last week-- no gi bleeding ID'd + finding of polyp, removed. BX/path pending. H&H stable. Appetite stable/improved , eating 50-75% most meals. Oncology cont to follow-- oncology reconsulted as patient plans to stay here and pursue whatever treatments are available here versus trying to transfer to [place] on hospice. Goals remain aggressive. Radiation planning in process. Claudine only continues to follow. Patient respiratory status is stable he has not been requiring BiPAP at night though has prn order should he have respiratory distress. Currently tolerating nasal cannula. Urology continues to follow, has evaluated patient this week plans for possible cystoscopy to evaluate bladder tumor (? Next week per patient) s/p ultrasound lower extremity rule out DVT, negative. Patient seen in room no visitors present. He is alert, oriented pleasant. Talkative. ROS essentially negative. He does endorse some ongoing right knee pain which has since improved and he endorses range of motion slightly improved to right knee. He endorses he continues to work with occupational, physical therapy though he never seems to tolerate trying to stand up out of bed he gets too lightheaded. He again endorses his goal is to walk again. He really wants to get out of the hospital and then get back up to [place] to be with his family. Wants to continue to pursue radiation treatment and any other other aggressive treatments available for him, to help him treat/overcome the cancer. He seems to have an overall reasonable understanding of recent events and clinical course he is able to detail various consultants visits and recommendation to nephrology, radiation etc. Following exam call to [id number] Gwen (healthcare surrogate ). Provided update review of current conditions, assessment, as well as patient's expressed goals. Review of colonoscopy, dialysis remains on hold, radiation planning etc. She has no additional questions. She has palliative contact information. She is appreciative of ongoing updates. Family continues to support whatever patient's goals / wishes are. . Advance Directives Living Will: Completed, but not made available Health Care Surrogate: Copy in medical record Advance Directive Specifics Date completed: 12/17/16 Health Care Surrogate(s): Names son Elpidio Jaime as HCS Objective Vital Signs Date Time Temp Pulse Resp B/P Pulse Ox O2 Delivery O2 Flow Rate FiO2 01/07/17 12:00 97.3 85 20 151/84 96 01/07/17 11:02 94 Nasal Cannula 2.00 01/07/17 10:51 Nasal Cannula 2.00 29 01/07/17 08:00 96.4 83 20 145/80 98 01/07/17 04:00 97.0 79 17 158/70 95 01/07/17 00:00 99.5 83 17 162/75 93 01/06/17 21:30 Nasal Cannula 2.00 29 01/06/17 20:01 78 01/06/17 20:00 98.7 86 16 135/63 94 01/06/17 19:45 95 Nasal Cannula 2.00 Physical Exam CONSTITUTIONAL/GENERAL: This is a chronically ill appearing pt, no distress, alert, pleasant TUBES/LINES/DRAINS:pIV LUE, NC O2. +PEG tube CARDIOVASCULAR: Regular rate and rhythm, no murmurs. Peripheral pulses symmetric. RESPIRATORY/CHEST: Symmetric, unlabored respirations. 2L nc. Clear to right, significantly decreased/minimal air movement to the left. GASTROINTESTINAL: Abdomen soft, non-tender, nondistended. No palpable masses. No guarding. Bowel sounds present.PEG tube clamped ,dressing clean/dry NEUROLOGICAL: Alert, orientedx3 . Pleasant and cooperative. Reasonable insight into hospitalization and conditions. Follows commands. Moves all 4 extremities with significant weakness PSYCHIATRIC: No obvious anxiety/depression. no apparent hallucinations or other psychotic thought process. . Diagnostic Tests Laboratory Laboratory Tests Test 01/05/17 01/05/17 01/06/17 01/07/17 03:30 11:00 06:21 04:41 Urine Color LIGHT-YELLOW (YELLW/STRAW) Urine Turbidity CLEAR (CLEAR) Urine pH 6.5 (5.0-8.5) Urine Specific [place] 1.007 (1.002-1.035) Urine Protein TRACE mg/dL (NEG-TRACE) Urine Glucose (UA) NEG mg/dL (NEG) Urine Ketones NEG mg/dL (NEG) Urine Occult Blood SMALL (NEG) Urine Nitrite NEG (NEG) Urine Bilirubin NEG (NEG) Urine Urobilinogen LESS THAN 2.0 MG/DL (LESS THAN 2.0) Urine Leukocyte Esterase SMALL (NEG) Urine RBC 3 /hpf (0-3) Urine WBC 7 /hpf (0-5) Urine Bacteria RARE /hpf (NONE) Urine Mucus FEW /lpf (OCC) Urine Yeast (Budding) OCC (NONE) Microscopic Urinalysis Comment CATH-CULTURE IND White Blood Count 14.2 TH/MM3 12.1 TH/MM3 (4.0-11.0) (4.0-11.0) Red Blood Count 2.94 MIL/MM3 2.97 MIL/MM3 (4.50-5.90) (4.50-5.90) Hemoglobin 8.0 GM/DL 8.5 GM/DL (13.0-17.0) (13.0-17.0) Hematocrit 25.1 % 25.9 % (39.0-51.0) (39.0-51.0) Mean Corpuscular Volume 85.5 FL 87.4 FL (80.0-100.0) (80.0-100.0) Mean Corpuscular Hemoglobin 27.3 PG 28.5 PG (27.0-34.0) (27.0-34.0) Mean Corpuscular Hemoglobin 32.0 % 32.6 % Concent (32.0-36.0) (32.0-36.0) Red Cell Distribution Width 15.3 % 15.2 % (11.6-17.2) (11.6-17.2) Platelet Count 299 TH/MM3 295 TH/MM3 (150-450) (150-450) Mean Platelet Volume 6.9 FL 6.9 FL (7.0-11.0) (7.0-11.0) Neutrophils (%) (Auto) 70.3 % 70.9 % (16.0-70.0) (16.0-70.0) Lymphocytes (%) (Auto) 6.6 % 5.7 % (9.0-44.0) (9.0-44.0) Monocytes (%) (Auto) 8.4 % (0.0-8.0) 8.3 % (0.0-8.0) Eosinophils (%) (Auto) 14.3 % 14.7 % (0.0-4.0) (0.0-4.0) Basophils (%) (Auto) 0.4 % (0.0-2.0) 0.4 % (0.0-2.0) Neutrophils # (Auto) 10.0 TH/MM3 8.6 TH/MM3 (1.8-7.7) (1.8-7.7) Lymphocytes # (Auto) 0.9 TH/MM3 0.7 TH/MM3 (1.0-4.8) (1.0-4.8) Monocytes # (Auto) 1.2 TH/MM3 1.0 TH/MM3 (0-0.9) (0-0.9) Eosinophils # (Auto) 2.0 TH/MM3 1.8 TH/MM3 (0-0.4) (0-0.4) Basophils # (Auto) 0.1 TH/MM3 0.1 TH/MM3 (0-0.2) (0-0.2) CBC Comment DIFF FINAL AUTO DIFF Differential Comment FINAL DIFF MANUAL Sodium Level 135 MEQ/L 137 MEQ/L 138 MEQ/L (136-145) (136-145) (136-145) Potassium Level 3.5 MEQ/L 3.7 MEQ/L 4.1 MEQ/L (3.5-5.1) (3.5-5.1) (3.5-5.1) Chloride Level 100 MEQ/L 102 MEQ/L 103 MEQ/L (98-107) (98-107) (98-107) Carbon Dioxide Level 24.3 MEQ/L 23.8 MEQ/L 26.1 MEQ/L (21.0-32.0) (21.0-32.0) (21.0-32.0) Anion Gap 11 MEQ/L (5-15) 11 MEQ/L (5-15) 9 MEQ/L (5-15) Blood Urea Nitrogen 101 MG/DL 100 MG/DL 103 MG/DL (7-18) (7-18) (7-18) Creatinine 2.80 MG/DL 2.90 MG/DL 3.07 MG/DL (0.60-1.30) (0.60-1.30) (0.60-1.30) Estimat Glomerular Filtration 23 ML/MIN (>89) 22 ML/MIN (>89) 20 ML/MIN (>89) Rate Random Glucose 135 MG/DL 112 MG/DL 104 MG/DL (74-106) (74-106) (74-106) Calcium Level 8.0 MG/DL 8.7 MG/DL 8.4 MG/DL (8.5-10.1) (8.5-10.1) (8.5-10.1) Differential Total Cells 100 Counted Neutrophils % (Manual) 74 % (16-70) Lymphocytes % 4 % (9-44) Monocytes % 7 % (0-8) Eosinophils % 15 % (0-4) Neutrophils # (Manual) 9.0 TH/MM3 (1.8-7.7) Platelet Estimate NORMAL (NORMAL) Platelet Morphology Comment NORMAL (NORMAL) Red Cell Morphology Comment NORMAL (NORMAL) Phosphorus Level 3.1 MG/DL 4.0 MG/DL (2.5-4.9) (2.5-4.9) Magnesium Level 1.6 MG/DL (1.5-2.5) Total Bilirubin 0.2 MG/DL (0.2-1.0) Aspartate Amino Transf 38 U/L (15-37) (AST/SGOT) Alanine Aminotransferase 44 U/L (12-78) (ALT/SGPT) Alkaline Phosphatase 90 U/L (45-117) Total Protein 7.2 GM/DL (6.4-8.2) Albumin 2.0 GM/DL 2.1 GM/DL (3.4-5.0) (3.4-5.0) Result Diagram: 01/06/17 0621 01/07/17 0441 Microbiology Microbiology Date/Time Procedure Status Source Growth 01/05/17 03:30 Urine Culture - Final Complete Urine Catheterized Urine Nisa Glabrata Imaging Last Impressions Lower Extremity Ultrasound 01/06/17 0000 Signed Impressions: Service Date/Time: Friday, January 06, 2017 09:02 - CONCLUSION: Normal examination. Shawn Reyes MD Chest X-Ray 12/25/16 0000 Signed Impressions: Service Date/Time: Sunday, December 25, 2016 08:59 - CONCLUSION: 1. Complete opacification of the left hemithorax unchanged from previous. 2. 4.5 cm masslike density on the right which appears to be fluid loculated in the fissure. This is decreased in size when compared to previous. 3. Dialysis catheter in good position. Patrick Shelton MD Upper Extremity Ultrasound 12/11/16 1506 Signed Impressions: Service Date/Time: Sunday, December 11, 2016 18:00 - CONCLUSION: Superficial thrombophlebitis, extensive edema and nonspecific fluid collections in the subcutaneous tissues. Shawn Reyes MD Head CT 12/11/16 0000 Signed Impressions: Service Date/Time: Sunday, December 11, 2016 20:00 - CONCLUSION: Slight atrophic and small vessel ischemic changes without any evidence for acute hemorrhage or mass effect. Shawn Reyes MD Renal Ultrasound 12/09/16 0000 Signed Impressions: Service Date/Time: Friday, December 09, 2016 15:16 - CONCLUSION: 1. 8.4 cm mass lesion at the base of the bladder. This may represent an intrinsic mass of the bladder versus a prominent anterior lobe of the prostate. 2. Otherwise, urinary bladder is partially decompressed with a Lipscomb catheter. 3. Both kidneys are sonographically normal. Roby Horta MD Assessment and Plan Disease Oriented Problem List: (1) Mass of left lung Comment: +SCC (2) Acute renal failure (3) Squamous cell lung cancer (4) Bladder mass (5) Anemia (6) UTI (urinary tract infection) Comment: awaiting BX/resection when stable (7) Severe muscle deconditioning (8) Acute respiratory failure Comment: resolved Symptom Scale: (1) Malnutrition (2) Dyspnea (3) Weakness Pertinent Non-Medical Issues Psychosocial:. 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 Lives at home alone. Supported by 4 sons, 2 in [place], 2 in [place] Spiritual: Legal:pt appears able to participate in decision making. Reports his son Elpidio is HCS, they will provide copies. Pt appears to have simple understanding of things and wishes to include his son in medical updates and decision making . Ethical issues impacting care: Important Contacts Jevon Landeros- (HCS) Elpidio Addison [phone] (Gwen, DIL [phone]) Jevon Landeros - Soham Jaime [phone] . Prognosis This patient has a new diagnosis of squamous cell carcinoma, s/p mass resection , intubation and arrest. He subsequently suffered acute renal failure and remains on hemodialysis. He has new findings of a large bladder mass, concerning for cancer, however cannot have additional diagnostic procedures until acute condition improves. It is possible his cancer could be treated, however his acute issues need to improve and his overall performance status needs to improve in order to obtain staging, and possible treatment. He has multiple issues and is severely deconditioned, it may take significant time for him to improve enough for treatment and during that time he remains high risk for further complications and setbacks. Code Status: Full Code Plan * Legal decision maker:pt appears able to participate in decision making. Reports his son Elpidio is HCS, they will provide copies. Pt appears to have simple understanding of things and wishes to include his son in medical updates and decision making . HCS completed 12/17/16 naming son Elpidio Jaime as HCS * Goals: GOALS HAVE BEEN AGGRESSIVE, pt wants to try to get needed resources in line in order to to go back home to [place] with his son, and possible obtain chemotherapy to treat his cancer and have more time. Patient's son and healthcare surrogate Elpidio is supportive of the patient's wishes. They're working to try to get him up to [place] closer to them. I provided an update to son 12/19 --12/27/16-discussion with patient, oncology PA as well as bedside regarding unlikely he will be able to pursue chemotherapy, usually be expected to experience continued decline and debility here in the hospital setting explored with him hospice option. He is not ready to transition to hospice at this time. Also spoke with his family regarding, they will have ongoing conversations with patient. Patient also advises he will talk to his family about the possibility of transitioning to hospice, he is open to ongoing discussions regarding. --01/07/17patient continues to express aggressive goals. He is not interested in hospice or de-escalation of treatment at this time. He expresses desire to complete radiation treatment here and then try to transfer to [place] after that. Updated [id number], Family continues to support whatever the patient wishes are. * CODE STATUS: Full code * SYMPTOMS: --dyspnea- s/p acute resp failure- prolonged intubation, resolved. Has been on nasal cannula O2, PRN nebulizers-- denies and shortness of breath; earlier today with episode of desaturation, dyspnea. CXR appears unchanged, essentially white out of left lung. Episode of respiratory distress earlier this week, required transfer to ICU and BiPAP, currently maintaining on nasal cannula w/ BiPAP in the evening/overnight, as needed --malnutrition- +PEG, TF at night, + oral food in day time, on MEGACE, appetite fair, appears to improving intake slowly -- eating 50%-75% of most recent meals. --weakness/deconditioning - in hospital since 10/22 -- severely deconditioned- -> PT working with, pt with limited strength to even sit on side of bed.Pt reports difficulty feeding self due to weakness.Continues to work with OT/PT though clinical condition limits his ability to participate in prolonged therapy --Dysphagia-some concern with coughing with drinking per MAILROOM COURIER, post [facility] ,tolerating thin liquids though probably remains ongoing risk for aspiration * Palliative care will continue to follow during hospital course as condition evolves, to assist patient/decision-maker with understanding of medical conditions, weighing benefits/burdens of treatment options, for clarification of goals of treatment. Additionally will assist with any symptoms of palliative concern Time Spent Total Floor Time (mins): 20 Attestation To help prompt me to consider important information that might be impacting today's encounter and assessment, information from prior notes written by myself or my colleagues may have been "brought forward" into today's note. My signature on this note, however, is an attestation that I personally performed the exam, history, and/or decision-making noted today, and, unless otherwise indicated, the interactions with patient, family, and staff as well as the review of records all occurred today. I also attest that the listed assessment and stated plan reflect my best clinical judgment today based on the combination of historical information, prior notes, and today's exam/ interactions. When time spent is documented, it refers only to time spent today by the signer, or if indicated, combined time spent today by collaborating physician/nurse practitioner. Evangelina Watson Jan 07, 2017 16:59
--- NOTE | 2017-01-07 19:18 | HHI.PR ---
Subjective Remarks . Afebrile. Anxious to have radiation started had EGD, has esophagitis Tolerates PO Breathing better Sleeping, on NC Objective Vital Signs Vital Signs Date Time Temp Pulse Resp B/P Pulse Ox O2 Delivery O2 Flow Rate FiO2 01/07/17 16:00 96.7 109 16 99/61 95 01/07/17 12:00 97.3 85 20 151/84 96 01/07/17 11:02 94 Nasal Cannula 2.00 01/07/17 10:51 Nasal Cannula 2.00 29 01/07/17 08:00 96.4 83 20 145/80 98 01/07/17 04:00 97.0 79 17 158/70 95 01/07/17 00:00 99.5 83 17 162/75 93 01/06/17 21:30 Nasal Cannula 2.00 29 01/06/17 20:01 78 01/06/17 20:00 98.7 86 16 135/63 94 01/06/17 19:45 95 Nasal Cannula 2.00 I/O 01/06/17 01/06/17 01/06/17 01/07/17 01/07/17 01/07/17 07:00 15:00 23:00 07:00 15:00 23:00 Intake Total 970 ml 940 ml 60 ml 880 ml 720 ml Output Total 950 ml 800 ml 350 ml 1150 ml 1150 ml Balance 20 ml 140 ml -290 ml -270 ml -430 ml Intake Oral 240 ml 940 ml 720 ml Tube Feeding 610 ml 880 ml Other 120 ml 60 ml Output Urine Total 950 ml 800 ml 350 ml 1150 ml 1150 ml # Bowel Movements 1 1 Result Diagram: 01/06/17 0621 01/07/17 0441 Objective Remarks GENERAL: Patient is lying in bed in NAD SKIN: Warm and dry. HEAD: Normocephalic. EYES: No scleral icterus. No injection or drainage. NECK: Supple, trachea midline. No JVD or lymphadenopathy. CARDIOVASCULAR: Regular rate and rhythm without murmurs, gallops, or rubs. RESPIRATORY: Breath sounds equal bilaterally. No accessory muscle use. GASTROINTESTINAL: Abdomen soft, non-tender, nondistended. MUSCULOSKELETAL: No cyanosis, or edema. BACK: Nontender without obvious deformity. No CVA tenderness. 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. Patient underwent radiation simulation on 12/23/16. XRT will possibly start next week . Heme Onc is following Monitor renal function, avoid nephrotoxins, Renal is following Supplement 02 to keep sat >90% Encourage PO intake. Stable pulm status Valeriy Wilkins MD Jan 07, 2017 19:18
[2017-01-07] MEDS: ATORVASTATIN 40 MG TAB PO SCH (22:04)
[2017-01-08] VITALS (9 sets, daily range): BP systolic 114–148; BP diastolic 58–85; PULSE 79–92; RESP 17–20; TEMP 96.6–99.1; O2SAT 93–100
[2017-01-08] MEDS: cloNIDine HCL 0.1 MG TAB PO SCH ×3 (05:54→22:55)
[2017-01-08] MEDS: DOCUSATE SODIUM 100 MG CAP PO SCH ×2 (05:55→17:19)
[2017-01-08 07:18] LABS: BASOPHIL # 0.1 TH/MM3 (0-0.2); BASOPHIL % 0.7 % (0.0-2.0); EOSINOPHIL # 1.7 TH/MM3 (0-0.4); EOSINOPHIL % 13.4 % (0.0-4.0); HEMATOCRIT 26.3 % (39.0-51.0); HEMO FLAGS DIFF FINAL; LYMPH % 7.2 % (9.0-44.0); LYMPHOCYTE # 0.9 TH/MM3 (1.0-4.8); MEAN CELL VOLUME 85.5 FL (80.0-100.0); MEAN CORPUSCULAR HEMOGLOBIN 27.5 PG (27.0-34.0); MEAN CORPUSCULAR HGB CONC 32.1 % (32.0-36.0); MONO % 8.3 % (0.0-8.0); NEUT % 70.4 % (16.0-70.0); PLATELET COUNT 297 TH/MM3 (150-450); RED BLOOD COUNT 3.08 MIL/MM3 (4.50-5.90); RED CELL DISTRIBUTION WIDTH 15.2 % (11.6-17.2); WHITE BLOOD COUNT 12.8 TH/MM3 (4.0-11.0)
[2017-01-08] MEDS: FERROUS SULFATE 300 MG /5ML UDC PO SCH (10:14)
[2017-01-08] MEDS: MEGESTROL ACETATE SUSP 400 MG/10 ML CUP PO SCH (10:14)
[2017-01-08] MEDS: NIFEdipine 90 MG SUSTAINED RELEASE TAB PO SCH (10:14)
[2017-01-08] MEDS: PANTOPRAZOLE SOD 40 MG DELAYED RELEASE TAB PO SCH (10:15)
[2017-01-08] MEDS: DOXAZOSIN MESYLATE 4 MG TAB PO SCH ×2 (10:15→20:26)
[2017-01-08] MEDS: HEPARIN SODIUM - SQ 10,000 UNITS/ML VIAL SQ SCH ×2 (10:15→20:27)
[2017-01-08] MEDS: SODIUM CHLORIDE 0.9% FLUSH 5 ML FLUSH FLUSH SCH ×2 (10:16→20:35)
[2017-01-08] MEDS: FLUTICASONE PROPIONATE 50 MCG/ACT 16 GM NASAL SPRAY EACH NARE SCH (10:16)
[2017-01-08] MEDS: cefTRIAXone INJ 1,000 MG in SODIUM CHLORIDE 0.9% INJ 100 ML IV SCH (10:21)
[2017-01-08] MEDS: FLUCONAZOLE 200 MG PREMIX BAG 100 ML IV SCH (10:21)
[2017-01-08] MEDS: PHENYTOIN SUSP 100 MG/4 ML CUP PO SCH ×2 (11:41→20:26)
[2017-01-08 11:57] LABS: BICARBONATE 23.6 MEQ/L (21.0-32.0); POTASSIUM 4.3 MEQ/L (3.5-5.1)
--- NOTE | 2017-01-08 12:02 | HHI.NPPN ---
Subjective General Problems: Anemia, Edema Renal Failure: Acute History of Present Illness 71 y/o male pt. Transferred to [facility] from [facility] with renal failure from possible ATN. Interval History The pt has no complaints today. BUN remains elevated. (Marina Mcgovern) Review of Systems General Constitutional: Fatigue General Remarks generalized weakness (Marina Mcgovern) Objective Data Data 01/07/17 01/08/17 19:00 07:00 Intake Total 720 ml 940 ml Output Total 1150 ml 1550 ml Balance -430 ml -610 ml Intake Oral 720 ml Tube Feeding 940 ml Output Urine Total 1150 ml 1550 ml # Bowel Movements 1 1 Vital Signs Date Time Temp Pulse Resp B/P Pulse Ox O2 Delivery O2 Flow Rate FiO2 01/08/17 08:30 94 Nasal Cannula 1.50 01/08/17 08:00 96.6 83 20 148/79 97 01/08/17 04:00 99.1 82 17 139/73 93 01/08/17 00:00 98.3 79 18 137/64 96 01/07/17 22:03 97 Nasal Cannula 2.00 01/07/17 22:00 Nasal Cannula 2.00 29 01/07/17 20:37 85 01/07/17 20:00 98.5 86 18 122/64 98 01/07/17 16:00 96.7 109 16 99/61 95 (Marina Mcgovern) -: 01/08/17 0646 01/08/17 1101 Tubes & Lines: Miranda Tubes & Lines Comment PEG, (Marina Mcgovern) Physical Exam General Appearance: Well Developed, Well Nourished, No Acute Distress, Comfortable ( Marina Mcgovern) Eyes Eye Exam: Pupils Equal, Pupils Reactive (Marina Mcgovern) Throat Throat Exam: Oral Mucosa [place] & Moist (Marina Mcgovern) Pulmonary Resp Exam: Breath Sounds Equal, No Distress, Decreased Bases, Diminished Breath Sounds (Marina Mcgovern) Cardiology CV Exam: Regular, Normal Sinus Rhythm, Good Perfusion, Murmur (Marina Mcgovern) Gastrointestinal/Abdomen GI Exam: Soft, Non-Tender, Bowel Sounds Present, Positive Bowel Movement ( Marina Mcgovern) Genitourinary Exam: Clear Urine (Marina Mcgovern) Musculoskeletal MS Exam: Joints Intact, Atrophy, Unable to Ambulate (Marina Mcgovern) Integumentary Skin Exam: Clear, Warm, Dry, Intact (Marina Mcgovern) Extremeties Extremities Exam: No Edema, Pedal Pulses Palpable (Marina Mcgovern) Neurologic Neuro Exam: Alert, Awake, Oriented, Speech Clear, Moving All Extremities ( Marina Mcgovern) Psychiatric Psych Exam: Appropriate Responses (Marina Mcgovern) Assessment/Plan Discussed Condition With: Patient, Son Assessment Summary: TODD/Acute Renal Failure, Acute Tubular Necrosis Problem List: (1) Acute renal failure Plan: He had creatinine 0.77 in October Renal failure ATN due to PEA arrest HD started around 11/08 , last treatment on 12/17 he appears to be in renal recovery renal function fluctuant, creatinine better but BUN remains elevated it remains to be seen what his new baseline may be wait for creatinine/BUN to further improve prior to removing PermCath Minimize medications when able avoid IVF labs in am Pt aware of plan and is in agreement (2) Anemia Plan: Hb low but stable hematology/oncology following GI bleed ruled out (3) Bronchiolar obstruction Plan: s/p stent placement, dx of squamous cell carcinoma med oncology following (4) Mass of left lung Plan: oncology has evaluated, appreciate their recommendations he is unstable for systemic treatment at this time he is to have radiation therapy, treatment may begin in the next week (5) UTI (urinary tract infection) Plan: he is afebrile with leukocytosis he was placed back on rocephin and fluconazole, + yeast in UA, recurrent zabrina infection remove miranda when evaluated by urology given bladder mass (6) Bladder mass Plan: urology following, bladder US report noted he will need cystoscopy with TURBT when UTI cleared (7) Acute respiratory failure Plan: extubated, on nasal cannula continuous speech therapy has signed off (Marina Mcgovern) Plan patient was seen and examined. Renal function is stable. No need for dialysis. Continue observation. (Willian Borjas MD) Problem Qualifiers (1) UTI (urinary tract infection): Marina Mcgovern Jan 08, 2017 12:02 Willian Borjas MD Jan 08, 2017 18:25
--- NOTE | 2017-01-08 16:04 | HHI.PR ---
Subjective Remarks Stable Hgb today at 8.5. Radiation treatment starting today. No new complaint from patient. Objective Vital Signs Date Time Temp Pulse Resp B/P Pulse Ox O2 Delivery O2 Flow Rate FiO2 01/08/17 15:58 98 Nasal Cannula 2.00 01/08/17 12:00 97.0 80 20 147/85 100 01/08/17 09:30 Nasal Cannula 2.00 29 01/08/17 08:30 94 Nasal Cannula 1.50 01/08/17 08:00 96.6 83 20 148/79 97 01/08/17 08:00 92 01/08/17 04:00 99.1 82 17 139/73 93 01/08/17 00:00 98.3 79 18 137/64 96 01/07/17 22:03 97 Nasal Cannula 2.00 01/07/17 22:00 Nasal Cannula 2.00 29 01/07/17 20:37 85 01/07/17 20:00 98.5 86 18 122/64 98 I/O 01/07/17 01/07/17 01/07/17 01/08/17 01/08/17 01/08/17 07:00 15:00 23:00 07:00 15:00 23:00 Intake Total 880 ml 720 ml 940 ml Output Total 1150 ml 1150 ml 450 ml 1100 ml Balance -270 ml -430 ml -450 ml -160 ml Intake Oral 720 ml Tube Feeding 880 ml 940 ml Output Urine Total 1150 ml 1150 ml 450 ml 1100 ml # Bowel Movements 1 1 1 Result Diagram: 01/08/17 0646 01/08/17 1101 Objective Remarks GENERAL: A&Ox3, NAD, Global Weakness SKIN: Warm and dry. HEAD: Normocephalic. EYES: No scleral icterus. No injection or drainage. NECK: Supple, trachea midline. No JVD or lymphadenopathy. CARDIOVASCULAR: Regular rate and rhythm without murmurs, gallops, or rubs. RESPIRATORY: Breath sounds equal bilaterally. No accessory muscle use. GASTROINTESTINAL: Abdomen soft, non-tender, nondistended. MUSCULOSKELETAL: No cyanosis, or edema. BACK: Nontender without obvious deformity. No CVA tenderness. Medications and IVs Administered Medications Medications (Trade) Dose Ordered Sig/Luis Carlos Route PRN Reason Start Time Stop Time Status Last Admin Dose Admin IV Flush (NS Flush) 2 ml BID FLUSH 3/16/17 21:00 01/08/17 10:16 Docusate Sodium (Colace) 100 mg Q12H PO 12/05/16 18:00 01/07/17 17:31 Ferrous Sulfate (Ferrous Sulfate Liq) 300 mg DAILY PO 12/06/16 09:00 01/08/17 10:14 Atorvastatin Calcium (Lipitor) 40 mg HS PO 12/05/16 21:00 01/07/17 22:04 Furosemide (Lasix Liq) 40 mg DAILY TUBE 12/06/16 09:00 Hold 12/20/16 08:50 Senna/Docusate Sodium 2 tab 2 tab BID PRN PO CONSTIPATION 12/05/16 19:45 12/30/16 05:45 Sodium Chloride (NS 1000 ml Inj) 1,000 ml @ 0 mls/hr Q0M PRN IV For Prime & Rinse Back 12/06/16 12:11 12/12/16 09:33 Heparin Sodium (Porcine) (Heparin Inj) UNSCH PRN .XX WITH DIALYSIS 12/06/16 12:15 12/14/16 16:39 Gentamicin Sulfate (Gentamicin (Dialysis) Inj) 20 mg UNSCH PRN IV WITH DIALYSIS 12/06/16 12:15 12/14/16 16:39 Acetaminophen (Tylenol) 650 mg UNSCH PRN PO for headach, pain, temp > 101F 12/06/16 12:15 12/14/16 07:54 Clonidine (Catapres) 0.1 mg UNSCH PRN PO SYS BP GREATER THAN 160 MMHG 12/06/16 12:15 12/19/16 06:27 Epoetin Blanco (Epogen Inj) 10,000 units UNSCH PRN IV WITH DIALYSIS 12/06/16 12:15 12/14/16 16:39 Megestrol Acetate (Megace Liq) 400 mg DAILY PO 12/08/16 09:00 01/08/17 10:14 Heparin Sodium (Porcine) (Heparin Inj) 5,000 units Q12HR SQ 12/08/16 21:00 01/08/17 10:15 Phenytoin (Dilantin Liq) 300 mg Q12HR PO 12/08/16 21:00 01/08/17 11:41 Fluticasone Propionate 2 spray 2 spray DAILY EACH NARE 12/18/16 12:00 01/08/17 10:16 Sodium Chloride (1/2 NS 1000 ml Inj) 1,000 ml @ 65 mls/hr [id number] IV 12/20/16 10:00 Hold 12/24/16 21:10 Pantoprazole Sodium (Protonix) 40 mg DAILY PO 12/25/16 10:30 01/08/17 10:15 Miscellaneous Information Patient in critical care unit? Ass... Q361D .XX 12/25/16 22:30 12/25/16 22:30 Doxazosin Mesylate (Cardura) 10 mg HS PO 12/26/16 21:00 01/07/17 22:12 Nifedipine (Procardia Xl) 90 mg DAILY PO 12/27/16 09:00 01/08/17 10:14 Miscellaneous (Pill Splitter) 1 ea UNSCH PRN OTHER SEE LABEL COMMENTS 12/26/16 19:00 12/27/16 10:33 Doxazosin Mesylate (Cardura) 4 mg DAILY PO 12/29/16 09:00 01/08/17 10:15 Clonidine 0.1 mg 0.1 mg Q8HR PO 01/03/17 22:00 01/08/17 14:40 Ceftriaxone Sodium 1000 mg/ Sodium Chloride 100 ml @ 200 mls/hr Q24H IV 01/05/17 11:00 01/08/17 10:21 Fluconazole/ Sodium Chloride (Diflucan 200 Mg Premix Bag) 100 ml @ 100 mls/hr Q24H IV 01/05/17 11:00 01/08/17 10:21 A/P Problem List: (1) Weakness ICD Code: R53.1 Assessment & Plan: PT continued Unable to discharge to home unless more functional (2) Squamous cell lung cancer ICD Code: C34.90 Assessment & Plan: Radiation treatments started Oncology following No hemoptysis (3) Anemia ICD Code: D64.9 Assessment & Plan: 8.5 hgb today. No decline Follow CBC (4) Acute renal failure ICD Code: N17.9 Assessment & Plan: Slightly improvement today Follow renal function Global stability may be present if his new baseline is 2.5-3.0 Problem Qualifiers (1) Squamous cell lung cancer: Qualified Code: C34.92 - Squamous cell lung cancer, left Patrick Taylor MD Jan 08, 2017 16:04
--- NOTE | 2017-01-08 19:24 | HHI.PR ---
Subjective Remarks . Afebrile. Anxious to have radiation started had EGD, has esophagitis Tolerates PO Breathing better Objective Vital Signs Vital Signs Date Time Temp Pulse Resp B/P Pulse Ox O2 Delivery O2 Flow Rate FiO2 01/08/17 15:58 98 Nasal Cannula 2.00 01/08/17 15:45 98.1 84 20 114/71 100 01/08/17 12:00 97.0 80 20 147/85 100 01/08/17 09:30 Nasal Cannula 2.00 29 01/08/17 08:30 94 Nasal Cannula 1.50 01/08/17 08:00 96.6 83 20 148/79 97 01/08/17 08:00 92 01/08/17 04:00 99.1 82 17 139/73 93 01/08/17 00:00 98.3 79 18 137/64 96 01/07/17 22:03 97 Nasal Cannula 2.00 01/07/17 22:00 Nasal Cannula 2.00 29 01/07/17 20:37 85 01/07/17 20:00 98.5 86 18 122/64 98 I/O 01/07/17 01/07/17 01/07/17 01/08/17 01/08/17 01/08/17 07:00 15:00 23:00 07:00 15:00 23:00 Intake Total 880 ml 720 ml 940 ml 360 ml Output Total 1150 ml 1150 ml 450 ml 1100 ml 1150 ml Balance -270 ml -430 ml -450 ml -160 ml -790 ml Intake Oral 720 ml 360 ml Tube Feeding 880 ml 940 ml Output Urine Total 1150 ml 1150 ml 450 ml 1100 ml 1150 ml # Bowel Movements 1 1 1 Result Diagram: 01/08/17 0646 01/08/17 1101 Objective Remarks GENERAL: Patient is lying in bed in NAD SKIN: Warm and dry. HEAD: Normocephalic. EYES: No scleral icterus. No injection or drainage. NECK: Supple, trachea midline. No JVD or lymphadenopathy. CARDIOVASCULAR: Regular rate and rhythm without murmurs, gallops, or rubs. RESPIRATORY: Breath sounds equal bilaterally. No accessory muscle use. GASTROINTESTINAL: Abdomen soft, non-tender, nondistended. MUSCULOSKELETAL: No cyanosis, or edema. BACK: Nontender without obvious deformity. No CVA tenderness. 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 Patient underwent radiation simulation on 12/23/16. XRT will possibly start next week . Heme Onc is following Monitor renal function, avoid nephrotoxins, Renal is following Supplement 02 to keep sat >90% Encourage PO intake. Valeriy Wilkins MD Jan 08, 2017 19:24
[2017-01-08] MEDS: ATORVASTATIN 40 MG TAB PO SCH (20:26)
[2017-01-09] VITALS (8 sets, daily range): BP systolic 105–150; BP diastolic 53–72; PULSE 51–86; RESP 16–17; TEMP 98–98.9; O2SAT 95–100
[2017-01-09] MEDS: DOCUSATE SODIUM 100 MG CAP PO SCH ×2 (04:24→18:27)
[2017-01-09] MEDS: cloNIDine HCL 0.1 MG TAB PO SCH ×3 (05:06→21:49)
[2017-01-09] MEDS: HEPARIN SODIUM - SQ 10,000 UNITS/ML VIAL SQ SCH ×2 (08:34→19:43)
[2017-01-09] MEDS: FERROUS SULFATE 300 MG /5ML UDC PO SCH (08:34)
[2017-01-09] MEDS: DOXAZOSIN MESYLATE 4 MG TAB PO SCH ×2 (08:34→20:45)
[2017-01-09] MEDS: NIFEdipine 90 MG SUSTAINED RELEASE TAB PO SCH (08:34)
[2017-01-09] MEDS: PANTOPRAZOLE SOD 40 MG DELAYED RELEASE TAB PO SCH (08:34)
[2017-01-09] MEDS: PHENYTOIN SUSP 100 MG/4 ML CUP PO SCH ×2 (08:34→20:45)
[2017-01-09] MEDS: MEGESTROL ACETATE SUSP 400 MG/10 ML CUP PO SCH (08:34)
[2017-01-09] MEDS: SODIUM CHLORIDE 0.9% FLUSH 5 ML FLUSH FLUSH SCH ×2 (08:35→20:46)
[2017-01-09] MEDS: FLUTICASONE PROPIONATE 50 MCG/ACT 16 GM NASAL SPRAY EACH NARE SCH (08:35)
--- NOTE | 2017-01-09 08:40 | HHI.NPPN ---
Subjective General Problems: Anemia, Edema Renal Failure: Acute History of Present Illness 71 y/o male pt. Transfer[place] [facility] [place] [facility] with renal failure from possible ATN. Interval History received radiation therapy yesterday. Having breakfast this morning. Overall stable, excellent urine output. Review of Systems General Constitutional: Fatigue General Remarks generalized weakness Objective Data Data 01/08/17 01/09/17 19:00 07:00 Intake Total 360 ml Output Total 1150 ml 1200 ml Balance -790 ml -1200 ml Intake Oral 360 ml Output Urine Total 1150 ml 1200 ml Vital Signs Date Time Temp Pulse Resp B/P Pulse Ox O2 Delivery O2 Flow Rate FiO2 01/09/17 08:11 95 Nasal Cannula 2.00 01/09/17 04:00 98.3 80 17 144/69 100 01/09/17 00:00 98.9 81 17 117/61 99 01/08/17 23:43 83 01/08/17 20:50 Nasal Cannula 2.00 01/08/17 20:00 97.9 86 18 116/58 100 01/08/17 15:58 98 Nasal Cannula 2.00 01/08/17 15:45 98.1 84 20 114/71 100 01/08/17 12:00 97.0 80 20 147/85 100 01/08/17 09:30 Nasal Cannula 2.00 29 -: 01/08/17 0646 01/08/17 1101 Tubes & Lines: Miranda Tubes & Lines Comment PEG, Physical Exam General Appearance: Well Developed, Well Nourished, No Acute Distress, Comfortable Eyes Eye Exam: Pupils Equal, Pupils Reactive Throat Throat Exam: Oral Mucosa Ali Chukson & Moist Pulmonary Resp Exam: Breath Sounds Equal, No Distress, Decreased Bases, Diminished Breath Sounds Cardiology CV Exam: Regular, Normal Sinus Rhythm, Good Perfusion, Murmur Gastrointestinal/Abdomen GI Exam: Soft, Non-Tender, Bowel Sounds Present, Positive Bowel Movement Genitourinary Exam: Clear Urine Musculoskeletal MS Exam: Joints Intact, Atrophy, Unable to Ambulate Integumentary Skin Exam: Clear, Warm, Dry, Intact Extremeties Extremities Exam: No Edema, Pedal Pulses Palpable Neurologic Neuro Exam: Alert, Awake, Oriented, Speech Clear, Moving All Extremities Psychiatric Psych Exam: Appropriate Responses Assessment/Plan Discussed Condition With: Patient, Son Assessment Summary: TODD/Acute Renal Failure, Acute Tubular Necrosis Problem List: (1) Acute renal failure Plan: He had creatinine 0.77 in October Renal failure ATN due to PEA arrest HD started around 11/08 , last treatment on 12/17 he appears to be in renal recovery Monitor renal function. No need for dialysis. Await additional improvement before removing PermCath. (2) Anemia Plan: Hb low but stable hematology/oncology following GI bleed ruled out (3) Bronchiolar obstruction Plan: s/p stent placement, dx of squamous cell carcinoma med oncology following. Radiation therapy initiated. (4) Mass of left lung Plan: oncology has evaluated, appreciate their recommendations he is unstable for systemic treatment at this time he is to have radiation therapy, treatment may begin in the next week (5) UTI (urinary tract infection) Plan: he is afebrile with leukocytosis he was placed back on rocephin and fluconazole, + yeast in UA, recurrent zabrina infection remove miranda when evaluated by urology given bladder mass (6) Bladder mass Plan: urology following, bladder US report noted he will need cystoscopy with TURBT when UTI cleared (7) Acute respiratory failure Plan: extubated, on nasal cannula continuous speech therapy has signed off Plan Problem Qualifiers (1) UTI (urinary tract infection): Willian Borjas MD Jan 09, 2017 08:40
[2017-01-09 09:17] LABS: BICARBONATE 24.1 MEQ/L (21.0-32.0); POTASSIUM 4.3 MEQ/L (3.5-5.1)
[2017-01-09 09:42] LABS: BICARBONATE 23.8 MEQ/L (21.0-32.0); POTASSIUM 4.4 MEQ/L (3.5-5.1)
[2017-01-09] MEDS: cefTRIAXone INJ 1,000 MG in SODIUM CHLORIDE 0.9% INJ 100 ML IV SCH (10:48)
[2017-01-09] MEDS: FLUCONAZOLE 200 MG PREMIX BAG 100 ML IV SCH (11:32)
--- NOTE | 2017-01-09 12:27 | HHI.PR ---
Subjective Patient symptoms today Pt seen and examined. Feels well. Objective Vital Signs Vital Signs Date Time Temp Pulse Resp B/P Pulse Ox O2 Delivery O2 Flow Rate FiO2 01/09/17 08:11 95 Nasal Cannula 2.00 01/09/17 08:00 98.0 85 16 150/72 98 01/09/17 04:00 98.3 80 17 144/69 100 01/09/17 00:00 98.9 81 17 117/61 99 01/08/17 23:43 83 01/08/17 20:50 Nasal Cannula 2.00 01/08/17 20:00 97.9 86 18 116/58 100 01/08/17 15:58 98 Nasal Cannula 2.00 01/08/17 15:45 98.1 84 20 114/71 100 Intake & Output 01/09/17 01/09/17 07:00 19:00 Output Total 1200 ml Balance -1200 ml Output Urine Total 1200 ml Result Diagram: 01/08/17 0646 01/09/17 0800 Objective Remarks Abd: soft,nt,nd Lipscomb with clear urine 12/11 Abd: soft,nt,nd Lipscomb with clear urine 01/07 Abd: soft,nt,nd Lipscomb with clear urine 01/09 Abd: soft,nt,nd Lipscomb with clear urine Medications and IVs Current Medications Medications (Trade) Dose Ordered Sig/Luis Carlos Route Start Time Stop Time Status Last Admin (NS Flush) 2 ml UNSCH PRN FLUSH 12/05/16 17:00 (NS Flush) 2 ml BID FLUSH 12/05/16 21:00 01/09/17 08:35 (Zofran Inj) 4 mg Q6H PRN IVP 12/05/16 18:00 (Dulcolax Supp) 10 mg DAILY PRN TX 12/05/16 18:00 (Colace) 100 mg Q12H PO 12/05/16 18:00 01/07/17 17:31 (Narcan Inj) 0.4 mg UNSCH PRN IV 12/05/16 17:00 (Ferrous Sulfate Liq) 300 mg DAILY PO 12/06/16 09:00 01/09/17 08:34 (Lipitor) 40 mg HS PO 12/05/16 21:00 01/08/17 20:26 (Lasix Liq) 40 mg DAILY TUBE 12/06/16 09:00 Hold 12/20/16 08:50 (Jacinda-Colace) 2 tab BID PRN PO 12/05/16 19:45 12/30/16 05:45 (Lactulose Liq) 30 ml TID PRN PO 12/05/16 19:45 Magnesium Hydroxide 30 ml 30 ml Q6H PRN PO 12/05/16 19:45 (NS 1000 ml Inj) 1,000 ml @ 0 mls/hr Q0M PRN IV 12/06/16 12:11 12/12/16 09:33 Heparin Sodium (Porcine) 8000 units 8,000 units UNSCH PRN IVF 12/06/16 12:15 Sodium Chloride 1,000 ml @ 200 mls/hr Q5H PRN IV 12/06/16 12:11 (NS 1000 ml Inj) 1,000 ml @ 0 mls/hr Q0M PRN IV 12/06/16 12:11 (Mannitol Inj) 12.5 gm UNSCH PRN IV 12/06/16 12:15 (Albumin 25% Inj) 25 gm UNSCH PRN IV 12/06/16 12:15 (NS Flush) 5 ml UNSCH PRN IVF 12/06/16 12:15 (Heparin Inj) UNSCH PRN .XX 12/06/16 12:15 12/14/16 16:39 (Gentamicin (Dialysis) Inj) 20 mg UNSCH PRN IV 12/06/16 12:15 12/14/16 16:39 (Zofran Inj) 4 mg UNSCH PRN IV 12/06/16 12:15 (Tylenol) 650 mg UNSCH PRN PO 12/06/16 12:15 12/14/16 07:54 (Benadryl) 25 mg UNSCH PRN PO 12/06/16 12:15 (Nitrostat Sl) 0.4 mg UNSCH PRN SL 12/06/16 12:15 (Catapres) 0.1 mg UNSCH PRN PO 12/06/16 12:15 12/19/16 06:27 (Epogen Inj) 10,000 units UNSCH PRN IV 12/06/16 12:15 12/14/16 16:39 (Gelfoam 12 Mm/7 Mm Top) 1 foam UNSCH PRN TOP 12/06/16 12:15 (Megace Liq) 400 mg DAILY PO 12/08/16 09:00 01/09/17 08:34 (Heparin Inj) 5,000 units Q12HR SQ 12/08/16 21:00 01/09/17 08:34 (Dilantin Liq) 300 mg Q12HR PO 12/08/16 21:00 01/09/17 08:34 Fluticasone Propionate 2 spray 2 spray DAILY EACH NARE 12/18/16 12:00 01/09/17 08:35 (1/2 NS 1000 ml Inj) 1,000 ml @ 65 mls/hr [id number] IV 12/20/16 10:00 Hold 12/24/16 21:10 (Protonix) 40 mg DAILY PO 12/25/16 10:30 01/09/17 08:34 Miscellaneous Information Patient in critical care unit? Ass... Q361D .XX 12/25/16 22:30 12/25/16 22:30 (Cardura) 10 mg HS PO 12/26/16 21:00 01/08/17 20:26 (Procardia Xl) 90 mg DAILY PO 12/27/16 09:00 01/09/17 08:34 (Pill Splitter) 1 ea UNSCH PRN OTHER 12/26/16 19:00 12/27/16 10:33 (Cardura) 4 mg DAILY PO 12/29/16 09:00 01/09/17 08:34 Clonidine 0.1 mg 0.1 mg Q8HR PO 01/03/17 22:00 01/09/17 05:06 Ceftriaxone Sodium 1000 mg/ Sodium Chloride 100 ml @ 200 mls/hr Q24H IV 01/05/17 11:00 01/09/17 10:48 (Diflucan 200 Mg Premix Bag) 100 ml @ 100 mls/hr Q24H IV 01/05/17 11:00 01/09/17 11:32 Assessment and Plan Assessment and Plan 71 year-old male with findings of 7 x 6 cm bladder mass on recent renal bladder ultrasounds with squamous cell carcinoma the lung Patient will require cystoscopy with TURBT but will need to be medically stabilized and off anticoagulation medication prior to proceeding with TURBT. Also of question if patient requires general anesthesia will he be able to get off the vent postoperatively. Spinal anesthesia would be an option in this case. These issues need to be addressed at length prior to proceeding with TURBT. We'll consult with medical team members prior to proceeding with TURBT. We'll repeat renal bladder ultrasound in the meantime. Thank you for the consult and for allowing me to participate in the care of this patient. 12/10 71 year-old male with findings of bladder mass vs prostatic enlargement on recent renal bladder ultrasound with squamous cell carcinoma the lung Possible Cysto/TURBT in the future once pt is stronger Will need to hold SQ heparin 24 hours prior to surgery 12/11 71 year-old male with findings of bladder mass vs prostatic enlargement on recent renal bladder ultrasound Possible Cysto/TURBT in the future once pt is stronger 01/07 71 y.o male with bladder mass vs prostatic enlargement Recommend clearing Nisa UTI prior to proceeding with cysto/TURBT Will need medical clearance/risk assessment prior to proceeding with cysto/ TURBT documented please Continue to hold anticoagulation for now. 01/09 71 y.o male with bladder mass vs prostatic enlargement Will plan for flexible cysto in OR tomorrow without anesthesia to confirm bladder mass vs prostatic enlargement If bladder mass present, will need cardiac w/u prior to proceeding with TURBT. D/W Javier Woods DO Jan 09, 2017 12:27
--- NOTE | 2017-01-09 16:29 | HHI.PR ---
Subjective Remarks Stable Hgb again today at 8.5. Radiation treatment starting today. No new complaint from patient. Flexible cystoscopy for visualization of bladder lession planned for tomorrow. Plan is for local and no sedation. Medically stable for this procedure. Objective Vital Signs Date Time Temp Pulse Resp B/P Pulse Ox O2 Delivery O2 Flow Rate FiO2 01/09/17 12:00 98.5 80 16 137/66 98 01/09/17 08:45 Nasal Cannula 2.00 01/09/17 08:11 95 Nasal Cannula 2.00 01/09/17 08:00 98.0 85 16 150/72 98 01/09/17 04:00 98.3 80 17 144/69 100 01/09/17 00:00 98.9 81 17 117/61 99 01/08/17 23:43 83 01/08/17 20:50 Nasal Cannula 2.00 01/08/17 20:00 97.9 86 18 116/58 100 I/O 01/08/17 01/08/17 01/08/17 01/09/17 01/09/17 01/09/17 07:00 15:00 23:00 07:00 15:00 23:00 Intake Total 940 ml 360 ml 300 ml Output Total 1100 ml 1150 ml 1200 ml Balance -160 ml -790 ml -1200 ml 300 ml Intake Oral 360 ml 300 ml Tube Feeding 940 ml Output Urine Total 1100 ml 1150 ml 1200 ml # Bowel Movements 1 Result Diagram: 01/08/17 0646 01/09/17 0800 Objective Remarks GENERAL: A&Ox3, NAD, Global Weakness SKIN: Warm and dry. HEAD: Normocephalic. EYES: No scleral icterus. No injection or drainage. NECK: Supple, trachea midline. No JVD or lymphadenopathy. CARDIOVASCULAR: Regular rate and rhythm without murmurs, gallops, or rubs. RESPIRATORY: Breath sounds equal bilaterally. No accessory muscle use. GASTROINTESTINAL: Abdomen soft, non-tender, nondistended. MUSCULOSKELETAL: No cyanosis, or edema. BACK: Nontender without obvious deformity. No CVA tenderness. Medications and IVs Administered Medications Medications (Trade) Dose Ordered Sig/Luis Carlos Route PRN Reason Start Time Stop Time Status Last Admin Dose Admin IV Flush (NS Flush) 2 ml BID FLUSH 12/05/16 21:00 01/09/17 08:35 Docusate Sodium (Colace) 100 mg Q12H PO 12/05/16 18:00 01/07/17 17:31 Ferrous Sulfate (Ferrous Sulfate Liq) 300 mg DAILY PO 12/06/16 09:00 01/09/17 08:34 Atorvastatin Calcium (Lipitor) 40 mg HS PO 12/05/16 21:00 01/08/17 20:26 Furosemide (Lasix Liq) 40 mg DAILY TUBE 12/06/16 09:00 Hold 12/20/16 08:50 Senna/Docusate Sodium 2 tab 2 tab BID PRN PO CONSTIPATION 12/05/16 19:45 12/30/16 05:45 Sodium Chloride (NS 1000 ml Inj) 1,000 ml @ 0 mls/hr Q0M PRN IV For Prime & Rinse Back 12/06/16 12:11 12/12/16 09:33 Heparin Sodium (Porcine) (Heparin Inj) UNSCH PRN .XX WITH DIALYSIS 12/06/16 12:15 12/14/16 16:39 Gentamicin Sulfate (Gentamicin (Dialysis) Inj) 20 mg UNSCH PRN IV WITH DIALYSIS 12/06/16 12:15 12/14/16 16:39 Acetaminophen (Tylenol) 650 mg UNSCH PRN PO for headach, pain, temp > 101F 12/06/16 12:15 12/14/16 07:54 Clonidine (Catapres) 0.1 mg UNSCH PRN PO SYS BP GREATER THAN 160 MMHG 12/06/16 12:15 12/19/16 06:27 Epoetin Blanco (Epogen Inj) 10,000 units UNSCH PRN IV WITH DIALYSIS 12/06/16 12:15 12/14/16 16:39 Megestrol Acetate (Megace Liq) 400 mg DAILY PO 12/08/16 09:00 01/09/17 08:34 Heparin Sodium (Porcine) (Heparin Inj) 5,000 units Q12HR SQ 12/08/16 21:00 01/09/17 08:34 Phenytoin (Dilantin Liq) 300 mg Q12HR PO 12/08/16 21:00 01/09/17 08:34 Fluticasone Propionate 2 spray 2 spray DAILY EACH NARE 12/18/16 12:00 01/09/17 08:35 Sodium Chloride (1/2 NS 1000 ml Inj) 1,000 ml @ 65 mls/hr [id number] IV 12/20/16 10:00 Hold 12/24/16 21:10 Pantoprazole Sodium (Protonix) 40 mg DAILY PO 12/25/16 10:30 01/09/17 08:34 Miscellaneous Information Patient in critical care unit? Ass... Q361D .XX 12/25/16 22:30 12/25/16 22:30 Doxazosin Mesylate (Cardura) 10 mg HS PO 12/26/16 21:00 01/08/17 20:26 Nifedipine (Procardia Xl) 90 mg DAILY PO 12/27/16 09:00 01/09/17 08:34 Miscellaneous (Pill Splitter) 1 ea UNSCH PRN OTHER SEE LABEL COMMENTS 12/26/16 19:00 12/27/16 10:33 Doxazosin Mesylate (Cardura) 4 mg DAILY PO 12/29/16 09:00 01/09/17 08:34 Clonidine 0.1 mg 0.1 mg Q8HR PO 01/03/17 22:00 01/09/17 14:50 Ceftriaxone Sodium 1000 mg/ Sodium Chloride 100 ml @ 200 mls/hr Q24H IV 01/05/17 11:00 01/09/17 10:48 Fluconazole/ Sodium Chloride (Diflucan 200 Mg Premix Bag) 100 ml @ 100 mls/hr Q24H IV 01/05/17 11:00 01/09/17 11:32 A/P Problem List: (1) Weakness ICD Code: R53.1 Assessment & Plan: PT continued Unable to discharge to home unless more functional, which he is unlikely to become (2) Squamous cell lung cancer ICD Code: C34.90 Assessment & Plan: Radiation treatments Oncology following No hemoptysis (3) Anemia ICD Code: D64.9 Assessment & Plan: 8.5 hgb today. No decline Follow CBC (4) Acute renal failure ICD Code: N17.9 Assessment & Plan: Slightly improvement today Follow renal function Global stability may be present if his new baseline is 2.5-3.0 Assessment and Plan Bladder Lesion Visualization tomorrow Medically cleared for procedure given no deep sedation/anesthesia If findings of concern are present and further diagnostic procedures are needed , he will need a cardiac evaluation Problem Qualifiers (1) Squamous cell lung cancer: Qualified Code: C34.92 - Squamous cell lung cancer, left Patrick Taylor MD Jan 09, 2017 16:29
--- NOTE | 2017-01-09 20:02 | HHI.PR ---
Subjective Remarks . Afebrile. Anxious to have radiation started had EGD, has esophagitis Tolerates PO Breathing better had radiation treatment Objective Vital Signs Vital Signs Date Time Temp Pulse Resp B/P Pulse Ox O2 Delivery O2 Flow Rate FiO2 01/09/17 16:00 98.8 85 16 105/53 96 01/09/17 12:00 98.5 80 16 137/66 98 01/09/17 08:45 Nasal Cannula 2.00 01/09/17 08:11 95 Nasal Cannula 2.00 01/09/17 08:06 81 01/09/17 08:00 98.0 85 16 150/72 98 01/09/17 04:00 98.3 80 17 144/69 100 01/09/17 00:00 98.9 81 17 117/61 99 01/08/17 23:43 83 01/08/17 20:50 Nasal Cannula 2.00 I/O 01/08/17 01/08/17 01/08/17 01/09/17 01/09/17 01/09/17 07:00 15:00 23:00 07:00 15:00 23:00 Intake Total 940 ml 360 ml 300 ml Output Total 1100 ml 1150 ml 1200 ml 600 ml Balance -160 ml -790 ml -1200 ml 300 ml -600 ml Intake Oral 360 ml 300 ml Tube Feeding 940 ml Output Urine Total 1100 ml 1150 ml 1200 ml 600 ml # Bowel Movements 1 0 Result Diagram: 01/08/17 0646 01/09/17 0800 Objective Remarks GENERAL: Patient is lying in bed in NAD SKIN: Warm and dry. HEAD: Normocephalic. EYES: No scleral icterus. No injection or drainage. NECK: Supple, trachea midline. No JVD or lymphadenopathy. CARDIOVASCULAR: Regular rate and rhythm without murmurs, gallops, or rubs. RESPIRATORY: Breath sounds equal bilaterally. No accessory muscle use. GASTROINTESTINAL: Abdomen soft, non-tender, nondistended. MUSCULOSKELETAL: No cyanosis, or edema. BACK: Nontender without obvious deformity. No CVA tenderness. 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 Patient underwent radiation simulation on 12/23/16. XRT will possibly start next week . Heme Onc is following Monitor renal function, avoid nephrotoxins, Renal is following Supplement 02 to keep sat >90% Encourage PO intake. cont radiation treatments. Valeriy Wilkins MD Jan 09, 2017 20:02
[2017-01-09] MEDS: ATORVASTATIN 40 MG TAB PO SCH (20:45)
[2017-01-10] VITALS (7 sets, daily range): BP systolic 103–173; BP diastolic 55–77; PULSE 81–90; RESP 17–18; TEMP 96.4–98.1; O2SAT 96–99
[2017-01-10] MEDS: DOCUSATE SODIUM 100 MG CAP PO SCH ×2 (04:28→20:28)
[2017-01-10] MEDS: cloNIDine HCL 0.1 MG TAB PO SCH ×3 (04:31→22:17)
[2017-01-10 07:49] LABS: HEMATOCRIT 26.3 % (39.0-51.0); MEAN CELL VOLUME 86.9 FL (80.0-100.0); MEAN CORPUSCULAR HEMOGLOBIN 27.9 PG (27.0-34.0); MEAN CORPUSCULAR HGB CONC 32.1 % (32.0-36.0); PLATELET COUNT 322 TH/MM3 (150-450); RED BLOOD COUNT 3.03 MIL/MM3 (4.50-5.90); RED CELL DISTRIBUTION WIDTH 15.8 % (11.6-17.2); REVIEW FLAG FINAL
[2017-01-10] MEDS ORDERED: LIDOCAINE HCL 2% JELLY 5 ML SYRINGE TOPICAL ONE (08:04)
[2017-01-10 08:08] LABS: BICARBONATE 24.1 MEQ/L (21.0-32.0); POTASSIUM 4.6 MEQ/L (3.5-5.1)
--- NOTE | 2017-01-10 08:18 | PD.OP ---
Operative Report Date of Surgery: Jan 10, 2017 Preoperative Diagnosis: Bladder mass versus prostatic enlargement Postoperative Diagnosis: Prostatic enlargement Procedure: Flexible cystoscopy Anesthesia: Local Surgeon: Javier Connor Doll Eye Setter(s): None Resident Surgeon: None Operation and Findings: 71-year-old male with reported findings of a bladder mass versus prostatic enlargement on recent renal bladder ultrasound. Due to the patient's multiple medical problems decision is made to bring the patient to the operating room to undergo flexible cystoscopy with local anesthesia only. Risk and benefits were discussed and he was willing to proceed. Patient was brought to the operating room and left on the hospital bed. His Lipscomb catheter was removed and he was prepped and draped in usual sterile fashion. The patient is currently on IV antibiotics both Diflucan and Rocephin. Flexible cystoscopy commenced. [place] cystoscopy showed trabeculations throughout the bladder and the large prostatic ingrowth to the area of the trigone within the bladder. Catheter cystitis was identified. There were no bladder masses identified. He tolerated the procedure well. This transferred back to the floor in stable condition. Javier Connor DO Jan 10, 2017 08:18
[2017-01-10] MEDS: SODIUM CHLORIDE 0.9% FLUSH 5 ML FLUSH FLUSH SCH ×2 (09:00→20:41)
[2017-01-10] MEDS: HEPARIN SODIUM - SQ 10,000 UNITS/ML VIAL SQ SCH ×2 (09:00→20:28)
[2017-01-10] MEDS: FLUTICASONE PROPIONATE 50 MCG/ACT 16 GM NASAL SPRAY EACH NARE SCH (09:00)
[2017-01-10] MEDS: MEGESTROL ACETATE SUSP 400 MG/10 ML CUP PO SCH (09:45)
[2017-01-10] MEDS: NIFEdipine 90 MG SUSTAINED RELEASE TAB PO SCH (09:45)
[2017-01-10] MEDS: DOXAZOSIN MESYLATE 4 MG TAB PO SCH ×2 (09:45→20:29)
[2017-01-10] MEDS: PANTOPRAZOLE SOD 40 MG DELAYED RELEASE TAB PO SCH (09:45)
[2017-01-10] MEDS: FERROUS SULFATE 300 MG /5ML UDC PO SCH (09:45)
[2017-01-10] MEDS: PHENYTOIN SUSP 100 MG/4 ML CUP PO SCH ×2 (09:55→20:28)
[2017-01-10] MEDS: FLUCONAZOLE 200 MG PREMIX BAG 100 ML IV SCH (10:02)
[2017-01-10] MEDS: cefTRIAXone INJ 1,000 MG in SODIUM CHLORIDE 0.9% INJ 100 ML IV SCH (11:12)
--- NOTE | 2017-01-10 14:23 | HHI.NPPN ---
Subjective General Problems: Anemia, Edema Renal Failure: Acute History of Present Illness 71 y/o male pt. Transfer[place] [facility] [place] [facility] with renal failure from possible ATN. Interval History Renal function is better. Had radiation therapy again. No acute concerns. ( Marina Mcgovern) Review of Systems General Constitutional: Fatigue General Remarks generalized weakness (Marina Mcgovern) Objective Data Data 01/09/17 01/10/17 19:00 07:00 Intake Total 300 ml 240 ml Output Total 600 ml 1950 ml Balance -300 ml -1710 ml Intake Oral 300 ml 240 ml Output Urine Total 600 ml 1950 ml # Bowel Movements 0 Vital Signs Date Time Temp Pulse Resp B/P Pulse Ox O2 Delivery O2 Flow Rate FiO2 01/10/17 04:00 97.4 86 17 146/70 96 01/10/17 00:00 98.1 81 17 133/67 97 01/09/17 20:55 Nasal Cannula 2.00 01/09/17 20:00 85 01/09/17 20:00 98.8 86 17 126/64 98 01/09/17 16:00 98.8 85 16 105/53 96 (Marina Mcgovern) -: 01/10/17 0715 01/10/17 0715 Tubes & Lines: Miranda Tubes & Lines Comment PEG, (Marina Mcgovern) Physical Exam General Appearance: Well Developed, Well Nourished, No Acute Distress, Comfortable ( Marina Mcgovern) Eyes Eye Exam: Pupils Equal, Pupils Reactive (Marina Mcgovern) Throat Throat Exam: Oral Mucosa [place] & Moist (Marina Mcgovern) Pulmonary Resp Exam: Breath Sounds Equal, No Distress, Decreased Bases, Diminished Breath Sounds (Marina Mcgovern) Cardiology CV Exam: Regular, Normal Sinus Rhythm, Good Perfusion, Murmur (Marina Mcgovern) Gastrointestinal/Abdomen GI Exam: Soft, Non-Tender, Bowel Sounds Present, Positive Bowel Movement ( Marina Mcgovern) Genitourinary Exam: Clear Urine (Marina Mcgovern) Musculoskeletal MS Exam: Joints Intact, Atrophy, Unable to Ambulate (Marina Mcgovern) Integumentary Skin Exam: Clear, Warm, Dry, Intact (Marina Mcgovern) Extremeties Extremities Exam: No Edema, Pedal Pulses Palpable (Marina Mcgovern) Neurologic Neuro Exam: Alert, Awake, Oriented, Speech Clear, Moving All Extremities ( Marina Mcgovern) Psychiatric Psych Exam: Appropriate Responses (Marina Mcgovern) Assessment/Plan Discussed Condition With: Patient, Son Assessment Summary: TODD/Acute Renal Failure, Acute Tubular Necrosis Problem List: (1) Acute renal failure Plan: He had creatinine 0.77 in October Renal failure ATN due to PEA arrest HD started around 11/08 , last treatment on 12/17 he is in renal recovery monitor creatinine, urine output may remove permcath next week pending continued improvement over the weekend avoid IVF, nephrotoxins labs in am (2) Anemia Plan: Hb low but stable hematology/oncology following GI bleed ruled out (3) Bronchiolar obstruction Plan: s/p stent placement, dx of squamous cell carcinoma med oncology following. Radiation therapy initiated. (4) Mass of left lung Plan: oncology has evaluated, appreciate their recommendations he is unstable for systemic treatment at this time he is to have radiation therapy, treatment may begin in the next week (5) UTI (urinary tract infection) Plan: he is afebrile with leukocytosis he was placed back on rocephin and fluconazole, + yeast in UA, recurrent zabrina infection remove miranda when evaluated by urology given bladder mass (6) Bladder mass Plan: urology following, bladder US report noted he will need cystoscopy with TURBT when UTI cleared (7) Acute respiratory failure Plan: extubated, on nasal cannula continuous speech therapy has signed off Plan (Marina Mcgovern) Plan patient was seen and examined. Agree with above assessment and plan. Renal function is stable, improving. (Willian Borjas MD) Problem Qualifiers (1) UTI (urinary tract infection): Marina Mcgovern Jan 10, 2017 14:23 Willian Borjas MD Jan 13, 2017 10:40
[2017-01-10] MEDS: RESP: ALBUTEROL 2.5 MG/IPRATROPIUM 0.5 MG NEB (PRN) NEB (16:32)
--- NOTE | 2017-01-10 16:38 | HHI.PR ---
Subjective Remarks Stable Hgb. Post flexible cystocope with no growth/tumor visualized which will need biopsy, just overgrowth of prostate. Radiation treatment ongoing. No new complaint from patient. Objective Vital Signs Date Time Temp Pulse Resp B/P Pulse Ox O2 Delivery O2 Flow Rate FiO2 01/10/17 11:50 98 Nasal Cannula 2.00 01/10/17 04:00 97.4 86 17 146/70 96 01/10/17 00:00 98.1 81 17 133/67 97 01/09/17 20:55 Nasal Cannula 2.00 01/09/17 20:00 85 01/09/17 20:00 98.8 86 17 126/64 98 I/O 01/09/17 01/09/17 01/09/17 01/10/17 01/10/17 01/10/17 07:00 15:00 23:00 07:00 15:00 23:00 Intake Total 300 ml 240 ml Output Total 1200 ml 1500 ml 1050 ml Balance -1200 ml 300 ml -1260 ml -1050 ml Intake Oral 300 ml 240 ml Output Urine Total 1200 ml 1500 ml 1050 ml # Bowel Movements 0 Result Diagram: 01/10/1715 01/10/1715 Objective Remarks GENERAL: A&Ox3, NAD, Global Weakness SKIN: Warm and dry. HEAD: Normocephalic. EYES: No scleral icterus. No injection or drainage. NECK: Supple, trachea midline. No JVD or lymphadenopathy. CARDIOVASCULAR: Regular rate and rhythm without murmurs, gallops, or rubs. RESPIRATORY: Breath sounds equal bilaterally. No accessory muscle use. GASTROINTESTINAL: Abdomen soft, non-tender, nondistended. MUSCULOSKELETAL: No cyanosis, or edema. BACK: Nontender without obvious deformity. No CVA tenderness. A/P Problem List: (1) Weakness ICD Code: R53.1 Assessment & Plan: PT continued Unable to discharge to home unless more functional, which he is unlikely to become (2) Squamous cell lung cancer ICD Code: C34.90 Assessment & Plan: Radiation treatments Oncology following No hemoptysis (3) Anemia ICD Code: D64.9 Assessment & Plan: low but stable No decline Follow CBC (4) Acute renal failure ICD Code: N17.9 Assessment & Plan: stable CKD Follow renal function Global stability may be present if his new baseline is 2.5-3.0 Assessment and Plan Bladder Lesion Visualization tomorrow Medically cleared for procedure given no deep sedation/anesthesia If findings of concern are present and further diagnostic procedures are needed , he will need a cardiac evaluation Problem Qualifiers (1) Squamous cell lung cancer: Qualified Code: C34.92 - Squamous cell lung cancer, left Patrick Taylor MD Jan 10, 2017 16:38
--- NOTE | 2017-01-10 18:54 | HHI.PR ---
Subjective Remarks . Afebrile. Anxious to have radiation started had EGD, has esophagitis Tolerates PO Breathing better had radiation treatment had cystoscopy Objective Vital Signs Vital Signs Date Time Temp Pulse Resp B/P Pulse Ox O2 Delivery O2 Flow Rate FiO2 01/10/17 11:50 98 Nasal Cannula 2.00 01/10/17 09:43 Nasal Cannula 2.00 01/10/17 04:00 97.4 86 17 146/70 96 01/10/17 00:00 98.1 81 17 133/67 97 01/09/17 20:55 Nasal Cannula 2.00 01/09/17 20:00 85 01/09/17 20:00 98.8 86 17 126/64 98 I/O 01/09/17 01/09/17 01/09/17 01/10/17 01/10/17 01/10/17 07:00 15:00 23:00 07:00 15:00 23:00 Intake Total 300 ml 240 ml 305 ml Output Total 1200 ml 1500 ml 1050 ml Balance -1200 ml 300 ml -1260 ml -1050 ml 305 ml Intake Oral 300 ml 240 ml IV Total 205 ml Other 100 ml Output Urine Total 1200 ml 1500 ml 1050 ml # Bowel Movements 0 Result Diagram: 01/10/1715 01/10/1715 Objective Remarks GENERAL: Patient is lying in bed in NAD SKIN: Warm and dry. HEAD: Normocephalic. EYES: No scleral icterus. No injection or drainage. NECK: Supple, trachea midline. No JVD or lymphadenopathy. CARDIOVASCULAR: Regular rate and rhythm without murmurs, gallops, or rubs. RESPIRATORY: Breath sounds equal bilaterally. No accessory muscle use. GASTROINTESTINAL: Abdomen soft, non-tender, nondistended. MUSCULOSKELETAL: No cyanosis, or edema. BACK: Nontender without obvious deformity. No CVA tenderness. 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 Patient underwent radiation simulation on 12/23/16. XRT will possibly start next week . Heme Onc is following Monitor renal function, avoid nephrotoxins, Renal is following Supplement 02 to keep sat >90% Encourage PO intake. Stable from pulm standpoint Available prn over weekend Valeriy Wilkins MD Jan 10, 2017 18:54
[2017-01-10] MEDS: ATORVASTATIN 40 MG TAB PO SCH (20:28)
[2017-01-11] VITALS (9 sets, daily range): BP systolic 104–125; BP diastolic 57–65; PULSE 86–93; RESP 17–18; TEMP 97.4–98.8; O2SAT 95–100
[2017-01-11] MEDS: DOCUSATE SODIUM 100 MG CAP PO SCH ×2 (05:35→17:43)
[2017-01-11] MEDS: cloNIDine HCL 0.1 MG TAB PO SCH ×3 (05:35→23:06)
[2017-01-11] MEDS: SODIUM CHLORIDE 0.9% FLUSH 5 ML FLUSH FLUSH SCH ×2 (09:00→21:00)
[2017-01-11] MEDS: FLUTICASONE PROPIONATE 50 MCG/ACT 16 GM NASAL SPRAY EACH NARE SCH (09:00)
--- NOTE | 2017-01-11 09:03 | HHI.PR ---
Subjective Remarks Doing well today. PT planned for today. No distress when seen. Objective Vital Signs Date Time Temp Pulse Resp B/P Pulse Ox O2 Delivery O2 Flow Rate FiO2 01/11/17 08:02 89 01/11/17 04:00 97.6 93 18 121/57 98 01/11/17 00:00 97.9 90 17 118/63 99 01/10/17 20:35 Nasal Cannula 2.00 01/10/17 20:29 Nasal Cannula 2.00 01/10/17 20:00 86 01/10/17 20:00 97.9 85 17 111/57 99 01/10/17 16:00 97.5 85 18 103/55 99 01/10/17 12:00 97.3 90 18 106/55 96 01/10/17 11:50 98 Nasal Cannula 2.00 01/10/17 09:43 Nasal Cannula 2.00 I/O 01/10/17 01/10/17 01/10/17 01/11/17 01/11/17 01/11/17 07:00 15:00 23:00 07:00 15:00 23:00 Intake Total 905 ml 240 ml 480 ml Output Total 1050 ml 750 ml 450 ml Balance -1050 ml 155 ml -210 ml 480 ml Intake Oral 600 ml 240 ml 480 ml IV Total 205 ml Other 100 ml Output Urine Total 1050 ml 750 ml 450 ml Result Diagram: 01/10/1771401/10/1715 Objective Remarks GENERAL: A&Ox3, NAD, Global Weakness SKIN: Warm and dry. HEAD: Normocephalic. EYES: No scleral icterus. No injection or drainage. NECK: Supple, trachea midline. No JVD or lymphadenopathy. CARDIOVASCULAR: Regular rate and rhythm without murmurs, gallops, or rubs. RESPIRATORY: Breath sounds equal bilaterally. No accessory muscle use. GASTROINTESTINAL: Abdomen soft, non-tender, nondistended. MUSCULOSKELETAL: No cyanosis, or edema. BACK: Nontender without obvious deformity. No CVA tenderness. Medications and IVs Administered Medications Medications (Trade) Dose Ordered Sig/Luis Carlos Route PRN Reason Start Time Stop Time Status Last Admin Dose Admin IV Flush (NS Flush) 2 ml BID FLUSH 12/05/16 21:00 01/10/17 20:41 Docusate Sodium (Colace) 100 mg Q12H PO 12/05/16 18:00 01/11/17 05:35 Ferrous Sulfate (Ferrous Sulfate Liq) 300 mg DAILY PO 12/06/16 09:00 01/10/17 09:45 Atorvastatin Calcium (Lipitor) 40 mg HS PO 12/05/16 21:00 01/10/17 20:28 Furosemide (Lasix Liq) 40 mg DAILY TUBE 12/06/16 09:00 Hold 12/20/16 08:50 Senna/Docusate Sodium 2 tab 2 tab BID PRN PO CONSTIPATION 12/05/16 19:45 12/30/16 05:45 Sodium Chloride (NS 1000 ml Inj) 1,000 ml @ 0 mls/hr Q0M PRN IV For Prime & Rinse Back 12/06/16 12:11 12/12/16 09:33 Heparin Sodium (Porcine) (Heparin Inj) UNSCH PRN .XX WITH DIALYSIS 12/06/16 12:15 12/14/16 16:39 Gentamicin Sulfate (Gentamicin (Dialysis) Inj) 20 mg UNSCH PRN IV WITH DIALYSIS 12/06/16 12:15 12/14/16 16:39 Acetaminophen (Tylenol) 650 mg UNSCH PRN PO for headach, pain, temp > 101F 12/06/16 12:15 12/14/16 07:54 Clonidine (Catapres) 0.1 mg UNSCH PRN PO SYS BP GREATER THAN 160 MMHG 12/06/16 12:15 12/19/16 06:27 Epoetin Blanco (Epogen Inj) 10,000 units UNSCH PRN IV WITH DIALYSIS 12/06/16 12:15 12/14/16 16:39 Megestrol Acetate (Megace Liq) 400 mg DAILY PO 12/08/16 09:00 01/10/17 09:45 Heparin Sodium (Porcine) (Heparin Inj) 5,000 units Q12HR SQ 12/08/16 21:00 01/10/17 20:28 Phenytoin (Dilantin Liq) 300 mg Q12HR PO 12/08/16 21:00 01/10/17 20:28 Fluticasone Propionate 2 spray 2 spray DAILY EACH NARE 12/18/16 12:00 01/10/17 09:00 Sodium Chloride (1/2 NS 1000 ml Inj) 1,000 ml @ 65 mls/hr [id number] IV 12/20/16 10:00 Hold 12/24/16 21:10 Pantoprazole Sodium (Protonix) 40 mg DAILY PO 12/25/16 10:30 01/10/17 09:45 Miscellaneous Information Patient in critical care unit? Ass... Q361D .XX 12/25/16 22:30 12/25/16 22:30 Doxazosin Mesylate (Cardura) 10 mg HS PO 12/26/16 21:00 01/10/17 20:29 Nifedipine (Procardia Xl) 90 mg DAILY PO 12/27/16 09:00 01/10/17 09:45 Miscellaneous (Pill Splitter) 1 ea UNSCH PRN OTHER SEE LABEL COMMENTS 12/26/16 19:00 12/27/16 10:33 Doxazosin Mesylate (Cardura) 4 mg DAILY PO 12/29/16 09:00 01/10/17 09:45 Clonidine 0.1 mg 0.1 mg Q8HR PO 01/03/17 22:00 01/11/17 05:35 Ceftriaxone Sodium 1000 mg/ Sodium Chloride 100 ml @ 200 mls/hr Q24H IV 01/05/17 11:00 01/10/17 11:12 Fluconazole/ Sodium Chloride (Diflucan 200 Mg Premix Bag) 100 ml @ 100 mls/hr Q24H IV 01/05/17 11:00 01/10/17 10:02 A/P Problem List: (1) Weakness ICD Code: R53.1 Assessment & Plan: Remains PT continued Unable to discharge to home unless more functional, which he is unlikely to become (2) Squamous cell lung cancer ICD Code: C34.90 Assessment & Plan: Continued Radiation treatments Oncology following No hemoptysis (3) Anemia ICD Code: D64.9 Assessment & Plan: Monitor for now low but stable No decline Follow CBC (4) Acute renal failure ICD Code: N17.9 Assessment & Plan: Has been stable stable CKD Follow renal function Global stability may be present if his new baseline is 2.5-3.0 Assessment and Plan Bladder Lesion Visualization tomorrow Medically cleared for procedure given no deep sedation/anesthesia If findings of concern are present and further diagnostic procedures are needed , he will need a cardiac evaluation Problem Qualifiers (1) Squamous cell lung cancer: Qualified Code: C34.92 - Squamous cell lung cancer, left Patrick Taylor MD Jan 11, 2017 09:03
[2017-01-11] MEDS: DOXAZOSIN MESYLATE 4 MG TAB PO SCH ×2 (11:09→23:06)
[2017-01-11] MEDS: PHENYTOIN SUSP 100 MG/4 ML CUP PO SCH ×2 (11:09→23:07)
[2017-01-11] MEDS: FERROUS SULFATE 300 MG /5ML UDC PO SCH (11:09)
[2017-01-11] MEDS: MEGESTROL ACETATE SUSP 400 MG/10 ML CUP PO SCH (11:09)
[2017-01-11] MEDS: NIFEdipine 90 MG SUSTAINED RELEASE TAB PO SCH (11:10)
[2017-01-11] MEDS: HEPARIN SODIUM - SQ 10,000 UNITS/ML VIAL SQ SCH ×2 (11:10→23:06)
[2017-01-11] MEDS: PANTOPRAZOLE SOD 40 MG DELAYED RELEASE TAB PO SCH (11:10)
[2017-01-11] MEDS: cefTRIAXone INJ 1,000 MG in SODIUM CHLORIDE 0.9% INJ 100 ML IV SCH (11:11)
[2017-01-11] MEDS: FLUCONAZOLE 200 MG PREMIX BAG 100 ML IV SCH (12:41)
--- NOTE | 2017-01-11 15:25 | HHI.NPPN ---
Subjective General Problems: Anemia, Edema Renal Failure: Acute History of Present Illness 71 y/o male pt. [place] [facility] [place] [facility] with renal failure from possible ATN. Additional Remarks Patient is alert, no SOB, not eating well. Review of Systems General Constitutional: Fatigue General Remarks generalized weakness Objective Data Data 01/10/17 01/11/17 19:00 07:00 Intake Total 905 ml 720 ml Output Total 750 ml 450 ml Balance 155 ml 270 ml Intake Oral 600 ml 720 ml IV Total 205 ml Other 100 ml Output Urine Total 750 ml 450 ml Vital Signs Date Time Temp Pulse Resp B/P Pulse Ox O2 Delivery O2 Flow Rate FiO2 01/11/17 12:00 97.6 86 18 125/64 97 01/11/17 08:26 96 Nasal Cannula 3.00 01/11/17 08:02 89 01/11/17 08:00 98.0 89 18 123/65 100 01/11/17 04:00 97.6 93 18 121/57 98 01/11/17 00:00 97.9 90 17 118/63 99 01/10/17 20:35 Nasal Cannula 2.00 01/10/17 20:29 Nasal Cannula 2.00 01/10/17 20:00 86 01/10/17 20:00 97.9 85 17 111/57 99 01/10/17 16:00 97.5 85 18 103/55 99 -: 01/10/17 0715 01/10/17 0715 Tubes & Lines: Miranda Tubes & Lines Comment PEG, Physical Exam General Appearance: Well Developed, Well Nourished, No Acute Distress, Comfortable Eyes Eye Exam: Pupils Equal, Pupils Reactive Throat Throat Exam: Oral Mucosa [place] & Moist Pulmonary Resp Exam: Breath Sounds Equal, No Distress, Decreased Bases, Diminished Breath Sounds Cardiology CV Exam: Regular, Normal Sinus Rhythm, Good Perfusion, Murmur Gastrointestinal/Abdomen GI Exam: Soft, Non-Tender, Bowel Sounds Present, Positive Bowel Movement Genitourinary Exam: Clear Urine Musculoskeletal MS Exam: Joints Intact, Atrophy, Unable to Ambulate Integumentary Skin Exam: Clear, Warm, Dry, Intact Extremeties Extremities Exam: Trace Edema Neurologic Neuro Exam: Alert, Awake, Oriented, Speech Clear Assessment/Plan Discussed Condition With: Patient, Son Assessment Summary: TODD/Acute Renal Failure, Acute Tubular Necrosis Problem List: (1) Acute renal failure Plan: He had creatinine 0.77 in October Renal failure ATN due to PEA arrest HD started around 11/08 , last treatment on 12/17 he is in renal recovery monitor creatinine, urine output may remove permcath next week pending continued improvement over the weekend avoid IVF, nephrotoxins No new BMP, follow in AM. (2) Anemia Plan: Hb low but stable hematology/oncology following GI bleed ruled out (3) Bronchiolar obstruction Plan: s/p stent placement, dx of squamous cell carcinoma med oncology following. Radiation therapy initiated. (4) Mass of left lung Plan: oncology has evaluated, appreciate their recommendations he is unstable for systemic treatment at this time he is to have radiation therapy, treatment may begin in the next week (5) UTI (urinary tract infection) Plan: he is afebrile with leukocytosis he was placed back on rocephin and fluconazole, + yeast in UA, recurrent zabrina infection remove miranda when evaluated by urology given bladder mass (6) Bladder mass Plan: urology following, bladder US report noted he will need cystoscopy with TURBT when UTI cleared (7) Acute respiratory failure Plan: extubated, on nasal cannula continuous speech therapy has signed off Plan Problem Qualifiers (1) UTI (urinary tract infection): Remigio Denise MD Jan 11, 2017 15:25 Remigio Denise MD Jan 11, 2017 15:25
[2017-01-11] MEDS: ATORVASTATIN 40 MG TAB PO SCH (23:06)
[2017-01-12] VITALS (10 sets, daily range): BP systolic 117–152; BP diastolic 56–79; PULSE 85–93; RESP 17–20; TEMP 96.8–99.5; O2SAT 92–98
[2017-01-12] MEDS: cloNIDine HCL 0.1 MG TAB PO SCH ×3 (05:48→22:16)
[2017-01-12] MEDS: DOCUSATE SODIUM 100 MG CAP PO SCH ×2 (05:48→16:53)
[2017-01-12 07:19] LABS: HEMATOCRIT 25.2 % (39.0-51.0); MEAN CELL VOLUME 85.4 FL (80.0-100.0); MEAN CORPUSCULAR HEMOGLOBIN 28.4 PG (27.0-34.0); MEAN CORPUSCULAR HGB CONC 33.2 % (32.0-36.0); PLATELET COUNT 357 TH/MM3 (150-450); RED BLOOD COUNT 2.95 MIL/MM3 (4.50-5.90); RED CELL DISTRIBUTION WIDTH 15.5 % (11.6-17.2); REVIEW FLAG FINAL; WHITE BLOOD COUNT 10.4 TH/MM3 (4.0-11.0)
[2017-01-12 07:50] LABS: BICARBONATE 21.2 MEQ/L (21.0-32.0); POTASSIUM 4.3 MEQ/L (3.5-5.1)
[2017-01-12] MEDS: DOXAZOSIN MESYLATE 4 MG TAB PO SCH ×2 (08:06→22:15)
[2017-01-12] MEDS: PHENYTOIN SUSP 100 MG/4 ML CUP PO SCH ×2 (08:06→22:15)
[2017-01-12] MEDS: HEPARIN SODIUM - SQ 10,000 UNITS/ML VIAL SQ SCH ×2 (08:06→22:19)
[2017-01-12] MEDS: FERROUS SULFATE 300 MG /5ML UDC PO SCH (08:06)
[2017-01-12] MEDS: NIFEdipine 90 MG SUSTAINED RELEASE TAB PO SCH (08:06)
[2017-01-12] MEDS: PANTOPRAZOLE SOD 40 MG DELAYED RELEASE TAB PO SCH (08:07)
[2017-01-12] MEDS: MEGESTROL ACETATE SUSP 400 MG/10 ML CUP PO SCH (08:07)
[2017-01-12] MEDS: FLUTICASONE PROPIONATE 50 MCG/ACT 16 GM NASAL SPRAY EACH NARE SCH (08:10)
[2017-01-12] MEDS: SODIUM CHLORIDE 0.9% FLUSH 5 ML FLUSH FLUSH SCH ×2 (08:14→22:16)
[2017-01-12] MEDS: FLUCONAZOLE 200 MG PREMIX BAG 100 ML IV SCH (10:17)
--- NOTE | 2017-01-12 11:05 | HHI.PR ---
Subjective Remarks Renal function shows slight improvement through time. He has no new complaints today. No distress or anxiety. Objective Vital Signs Date Time Temp Pulse Resp B/P Pulse Ox O2 Delivery O2 Flow Rate FiO2 01/12/17 09:00 94 21 01/12/17 08:00 97.1 92 20 152/79 96 01/12/17 04:00 98.1 93 18 125/68 96 01/12/17 00:00 96.8 88 17 131/76 98 01/11/17 23:00 Nasal Cannula 3.00 29 01/11/17 21:37 Nasal Cannula 3.00 01/11/17 20:06 90 01/11/17 20:00 97.4 87 17 118/62 96 01/11/17 16:00 98.8 86 18 104/57 95 01/11/17 12:00 97.6 86 18 125/64 97 I/O 01/11/17 01/11/17 01/11/17 01/12/17 01/12/17 01/12/17 07:00 15:00 23:00 07:00 15:00 23:00 Intake Total 480 ml 960 ml 120 ml 694 ml 360 ml Output Total 1350 ml 1200 ml 1000 ml Balance 480 ml -390 ml -1080 ml -306 ml 360 ml Intake Oral 480 ml 960 ml 120 ml 240 ml 360 ml Tube Feeding 454 ml Output Urine Total 1350 ml 1200 ml 1000 ml # Bowel Movements 0 0 2 Result Diagram: 01/12/17 0645 01/12/17 0645 Objective Remarks GENERAL: A&Ox3, NAD, Global Weakness SKIN: Warm and dry. HEAD: Normocephalic. EYES: No scleral icterus. No injection or drainage. NECK: Supple, trachea midline. No JVD or lymphadenopathy. CARDIOVASCULAR: Regular rate and rhythm without murmurs, gallops, or rubs. RESPIRATORY: Breath sounds equal bilaterally. No accessory muscle use. GASTROINTESTINAL: Abdomen soft, non-tender, nondistended. MUSCULOSKELETAL: No cyanosis, or edema. BACK: Nontender without obvious deformity. No CVA tenderness. Medications and IVs Administered Medications Medications (Trade) Dose Ordered Sig/Luis Carlos Route PRN Reason Start Time Stop Time Status Last Admin Dose Admin IV Flush (NS Flush) 2 ml BID FLUSH 12/05/16 21:00 01/12/17 08:14 Docusate Sodium (Colace) 100 mg Q12H PO 12/05/16 18:00 01/12/17 05:48 Ferrous Sulfate (Ferrous Sulfate Liq) 300 mg DAILY PO 12/06/16 09:00 01/12/17 08:06 Atorvastatin Calcium (Lipitor) 40 mg HS PO 12/05/16 21:00 01/11/17 23:06 Furosemide (Lasix Liq) 40 mg DAILY TUBE 12/06/16 09:00 Hold 12/20/16 08:50 Senna/Docusate Sodium 2 tab 2 tab BID PRN PO CONSTIPATION 12/05/16 19:45 12/30/16 05:45 Sodium Chloride (NS 1000 ml Inj) 1,000 ml @ 0 mls/hr Q0M PRN IV For Prime & Rinse Back 12/06/16 12:11 12/12/16 09:33 Heparin Sodium (Porcine) (Heparin Inj) UNSCH PRN .XX WITH DIALYSIS 12/06/16 12:15 12/14/16 16:39 Gentamicin Sulfate (Gentamicin (Dialysis) Inj) 20 mg UNSCH PRN IV WITH DIALYSIS 12/06/16 12:15 12/14/16 16:39 Acetaminophen (Tylenol) 650 mg UNSCH PRN PO for headach, pain, temp > 101F 12/06/16 12:15 12/14/16 07:54 Clonidine (Catapres) 0.1 mg UNSCH PRN PO SYS BP GREATER THAN 160 MMHG 12/06/16 12:15 12/19/16 06:27 Epoetin Blanco (Epogen Inj) 10,000 units UNSCH PRN IV WITH DIALYSIS 12/06/16 12:15 12/14/16 16:39 Megestrol Acetate (Megace Liq) 400 mg DAILY PO 12/08/16 09:00 01/12/17 08:07 Heparin Sodium (Porcine) (Heparin Inj) 5,000 units Q12HR SQ 12/08/16 21:00 01/12/17 08:06 Phenytoin (Dilantin Liq) 300 mg Q12HR PO 12/08/16 21:00 01/12/17 08:06 Fluticasone Propionate 2 spray 2 spray DAILY EACH NARE 12/18/16 12:00 01/12/17 08:10 Sodium Chloride (1/2 NS 1000 ml Inj) 1,000 ml @ 65 mls/hr [id number] IV 12/20/16 10:00 Hold 12/24/16 21:10 Pantoprazole Sodium (Protonix) 40 mg DAILY PO 12/25/16 10:30 01/12/17 08:07 Miscellaneous Information Patient in critical care unit? Ass... Q361D .XX 12/25/16 22:30 12/25/16 22:30 Doxazosin Mesylate (Cardura) 10 mg HS PO 12/26/16 21:00 01/11/17 23:06 Nifedipine (Procardia Xl) 90 mg DAILY PO 12/27/16 09:00 01/12/17 08:06 Miscellaneous (Pill Splitter) 1 ea UNSCH PRN OTHER SEE LABEL COMMENTS 12/26/16 19:00 12/27/16 10:33 Doxazosin Mesylate (Cardura) 4 mg DAILY PO 12/29/16 09:00 01/12/17 08:06 Clonidine 0.1 mg 0.1 mg Q8HR PO 01/03/17 22:00 01/12/17 05:48 Ceftriaxone Sodium 1000 mg/ Sodium Chloride 100 ml @ 200 mls/hr Q24H IV 01/05/17 11:00 01/11/17 11:11 Fluconazole/ Sodium Chloride (Diflucan 200 Mg Premix Bag) 100 ml @ 100 mls/hr Q24H IV 01/05/17 11:00 01/12/17 10:17 A/P Problem List: (1) Weakness ICD Code: R53.1 Assessment & Plan: Remains PT continued Unable to discharge to home unless more functional, which he is unlikely to become (2) Squamous cell lung cancer ICD Code: C34.90 Assessment & Plan: Continued Radiation treatments Oncology following No dyspnea No hemoptysis (3) Anemia ICD Code: D64.9 Assessment & Plan: Monitor for now stable Follow CBC (4) Acute renal failure ICD Code: N17.9 Assessment & Plan: Slight improvements through time stable CKD Follow renal function Assessment and Plan Bladder Lesion Visualization tomorrow Medically cleared for procedure given no deep sedation/anesthesia If findings of concern are present and further diagnostic procedures are needed , he will need a cardiac evaluation Problem Qualifiers (1) Squamous cell lung cancer: Qualified Code: C34.92 - Squamous cell lung cancer, left Patrick Taylor MD Jan 12, 2017 11:05
[2017-01-12] MEDS: cefTRIAXone INJ 1,000 MG in SODIUM CHLORIDE 0.9% INJ 100 ML IV SCH (11:25)
--- NOTE | 2017-01-12 13:34 | HHI.NPPN ---
Subjective General Problems: Anemia, Edema Renal Failure: Acute History of Present Illness 71 y/o male pt. Transferred to [facility] from [facility] with renal failure from possible ATN. Additional Remarks Patient is alert, no SOB, started eating some, no vomiting. Review of Systems General Constitutional: Fatigue General Remarks generalized weakness Objective Data Data 01/11/17 01/12/17 19:00 07:00 Intake Total 960 ml 814 ml Output Total 1350 ml 2200 ml Balance -390 ml -1386 ml Intake Oral 960 ml 360 ml Tube Feeding 454 ml Output Urine Total 1350 ml 2200 ml # Bowel Movements 0 2 Vital Signs Date Time Temp Pulse Resp B/P Pulse Ox O2 Delivery O2 Flow Rate FiO2 01/12/17 12:00 97.8 85 18 119/66 92 01/12/17 09:00 94 21 01/12/17 08:00 97.1 92 20 152/79 96 01/12/17 04:00 98.1 93 18 125/68 96 01/12/17 00:00 96.8 88 17 131/76 98 01/11/17 23:00 Nasal Cannula 3.00 29 01/11/17 21:37 Nasal Cannula 3.00 01/11/17 20:06 90 01/11/17 20:00 97.4 87 17 118/62 96 01/11/17 16:00 98.8 86 18 104/57 95 -: 01/12/17 0645 01/12/17 0645 Tubes & Lines: Miranda Tubes & Lines Comment PEG, Physical Exam General Appearance: Well Developed, Well Nourished, No Acute Distress, Comfortable Eyes Eye Exam: Pupils Equal, Pupils Reactive Throat Throat Exam: Oral Mucosa [place] & Moist Pulmonary Resp Exam: Breath Sounds Equal, No Distress, Decreased Bases, Diminished Breath Sounds Cardiology CV Exam: Regular, Normal Sinus Rhythm, Good Perfusion, Murmur Gastrointestinal/Abdomen GI Exam: Soft, Non-Tender, Bowel Sounds Present, Positive Bowel Movement Genitourinary Exam: Clear Urine Musculoskeletal MS Exam: Joints Intact, Atrophy, Unable to Ambulate Integumentary Skin Exam: Clear, Warm, Dry, Intact Extremeties Extremities Exam: Trace Edema Neurologic Neuro Exam: Alert, Awake, Oriented, Speech Clear Assessment/Plan Discussed Condition With: Patient, Son Assessment Summary: TODD/Acute Renal Failure, Acute Tubular Necrosis Problem List: (1) Acute renal failure Plan: He had creatinine 0.77 in October Renal failure ATN due to PEA arrest HD started around 11/08 , last treatment on 12/17 he is in renal recovery monitor creatinine, urine output may remove permcath next week pending continued improvement over the weekend avoid IVF, nephrotoxins Creatinine is 2.3, slightly better. Continue antibiotics, follow urine out put and BMP. (2) Anemia Plan: Hb low but stable hematology/oncology following GI bleed ruled out (3) Bronchiolar obstruction Plan: s/p stent placement, dx of squamous cell carcinoma med oncology following. Radiation therapy initiated. (4) Mass of left lung Plan: oncology has evaluated, appreciate their recommendations he is unstable for systemic treatment at this time he is to have radiation therapy, treatment may begin in the next week (5) UTI (urinary tract infection) Plan: he is afebrile with leukocytosis he was placed back on rocephin and fluconazole, + yeast in UA, recurrent zabrina infection remove miranda when evaluated by urology given bladder mass (6) Bladder mass Plan: urology following, bladder US report noted he will need cystoscopy with TURBT when UTI cleared (7) Acute respiratory failure Plan: extubated, on nasal cannula continuous speech therapy has signed off Plan Problem Qualifiers (1) UTI (urinary tract infection): Remigio Denise MD Jan 12, 2017 13:34
[2017-01-12] MEDS: ATORVASTATIN 40 MG TAB PO SCH (22:16)
[2017-01-13] VITALS (9 sets, daily range): BP systolic 118–144; BP diastolic 59–71; PULSE 83–100; RESP 16–24; TEMP 96.1–100.5; O2SAT 22–100
[2017-01-13 04:52] LABS: BLOOD GAS BASE EXCESS -3.9 mmol/L (-2-2); BLOOD GAS HCO3 21 mmol/L (22-26); BLOOD GAS METHEMOGLOBIN 1.2 % (0-2); BLOOD GAS O2 HGB SATURATION 82 % (90-100); BLOOD GAS OXYGEN CONTENT 10.5 Vol % (12.0-20.0); BLOOD GAS PCO2 37 mmHg (38-42); BLOOD GAS PO2 51 mmHg (61-120); BLOOD GAS TOTAL HGB 9.1 G/DL (12.0-16.0); CRITICAL VALUE YES; TEMP CORR TO 98.6
[2017-01-13 04:53] LABS: DRAW SITE RT RADIAL; LITER FLOW 2 L/M; NUMBER OF ARTERIAL PUNCTURES 1; OXYGEN DEVICE NASAL CANNULA; STAT YES; ULNAR PULSE Y
[2017-01-13] MEDS ORDERED: FUROSEMIDE 20 MG/2 ML VIAL IV PUSH PRN (05:15)
[2017-01-13] MEDS ORDERED: FUROSEMIDE 40 MG/4 ML VIAL IV PUSH ONE (05:15)
[2017-01-13] MEDS: LORazepam 2 MG/ML VIAL IV PUSH PRN ×2 (05:21→09:43)
--- NOTE | 2017-01-13 05:51 | HHI.PR ---
Addendum to Inpatient Note Addendum Reason: Additional Documentation Additional Information Mr. Jaime is a 71-year-old male with a history of trauma cell lung cancer and respiratory failure. The patient's registered nurse called me at about 4:15 this morning to notify me that the patient had an episode of hemoptysis that was approximately 15 cc in volume. Blood pressure was stable but oxygen saturation was 88% on room air. I advised her to apply supplemental oxygen via nasal cannula and titrate oxygen to maintain oxygen saturation greater than 92% . I ordered a stat ABG and a stat chest x-ray. However, the patient continued to desaturate despite supplemental oxygen and a HALICAT was called. By the time I arrived at the bedside, the intensivists (Dr. Ryan and Dr. Pina) had been [facility] given the patient's ABG results (oxygen saturation 82, PO2 51) and discussions were underway by Dr. Pina with the patient about intubation. The patient refused intubation and stated that he did not want resuscitative efforts and was aware that refusing resuscitation would result in his . The patient would like hospice consulted and desires to be kept comfortable without aggressive life saving measures. After the intensivists left the bedside, I reviewed his CODE STATUS with him and he indicates again that he does not want resuscitation and wants to be allowed to peacefully and naturally without any suffering. Orders entered for a one time dose of Lasix 40 mg IV (patient's lungs sound extremely congested ) and PRN: Lasix, Ativan, and Morphine. I have reviewed the treatment plan with him and explained that I am changing his CODE STATUS from FULL CODE to DO NOT RESUSCITATE. The patient is capacitated to make his own decisions - per Dr. Pina at the bedside witnessed by all responders to the [facility] and I concur with this assessment as well. CXR was cancelled given patient's desire for comfort-only oriented care. . Rocío Lazcano Jan 13, 2017 05:51
[2017-01-13] MEDS: DOCUSATE SODIUM 100 MG CAP PO SCH ×2 (05:56→17:37)
[2017-01-13] MEDS: cloNIDine HCL 0.1 MG TAB PO SCH ×3 (06:17→21:18)
[2017-01-13] MEDS: SODIUM CHLORIDE 0.9% FLUSH 5 ML FLUSH FLUSH SCH ×2 (09:00→21:19)
[2017-01-13] MEDS: FLUTICASONE PROPIONATE 50 MCG/ACT 16 GM NASAL SPRAY EACH NARE SCH (09:00)
[2017-01-13] MEDS: PHENYTOIN SUSP 100 MG/4 ML CUP PO SCH ×2 (09:36→21:18)
[2017-01-13] MEDS: NIFEdipine 90 MG SUSTAINED RELEASE TAB PO SCH (09:37)
[2017-01-13] MEDS: FERROUS SULFATE 300 MG /5ML UDC PO SCH (09:37)
[2017-01-13] MEDS: HEPARIN SODIUM - SQ 10,000 UNITS/ML VIAL SQ SCH (09:37)
[2017-01-13] MEDS: MEGESTROL ACETATE SUSP 400 MG/10 ML CUP PO SCH (09:37)
[2017-01-13] MEDS: DOXAZOSIN MESYLATE 4 MG TAB PO SCH ×2 (09:38→21:18)
[2017-01-13] MEDS: PANTOPRAZOLE SOD 40 MG DELAYED RELEASE TAB PO SCH (09:38)
--- NOTE | 2017-01-13 10:19 | HHI.HCPN ---
Reason for visit a. To assist with evaluation and management of symptoms including: dyspnea, weakness, malnutrition b. To assist medical decision maker(s) with: better understanding of current medical conditions; weighing benefits/burdens of medical treatment options; making medical treatment decisions. Subjective/Interval History Pt seen to follow up on dyspnea , goals. Voicemail received from daughter-in- law requesting update prior to my arrival on unit Patient had episode of hemoptysis, desaturation, dyspnea around 4am today, LEIGH was called. Ritual Circumciser reported to discuss intubation w pt at that time , and he was felt to have good understanding, elected DNR and comfort measures only. At my arrival to unit pt off floor, nursing advised pt went to radiation. D/w CM , hospice consult has not been called to hospice agency yet. Will need to discuss plan of treatment, goals again w pt when he arrives back from radiation. If goals comfort oriented, then could d/c w hospice, however would not be able to continue radiation tx. Following exam call to [id number] Gwen (healthcare surrogate ). Provided update review of current conditions, assessments per EMR, based on documentation as pt not present for PE/interaction. =====>> 1400 Pt seen later after he returned from radiation. He is seen in room. Alert, oriented, approp. Denies any current complaints. Denies shortness of breath though he visibly appears mildly short of breath with conversation. Breath sounds to left side continued to be very diminished. Right sounds overall clear though slightly diminished. Assess his recall of earlier this morning's events--he tells me he had a coughing episode he was short of breath, and coughing up blood and he just didn't feel right. He describes all the people came and everyone was talking to him about going on the breathing machine and he said "oh I will never go on that again "--he does affirm to me that he wishes to remain DNR with no resuscitation. Assess his understanding of hospice consultation; he does not appear to have a good understanding of this explore with him that this would mean cessation of radiation and aggressive hospital-based treatments and instead transfer out of the hospital with comfort treatment only by hospice, and possibly home to [place] at some point again with comfort oriented treatments only. He says he is not really sure what to do at this point. Asked how he is feeling overall-- he endorses feeling more tired for the past 2 days he hasn't really slept well and he just doesn't feel as his usual self. Today is overall not feeling as good as usual (though no specific complaints) no nausea, no vomiting, no specific pain, no shortness of breath just generalized tiredness and fatigue. He asks if anyone has been in contact with his son Elpidio, advise Elpidio is actually traveling to [place] today and should be around late in the afternoon to see him. He endorses that he will talk more to his son because he is really not sure what he should do at this point. He had felt like he was getting a little bit stronger bit by bit up until this past weekend but now is not certain. Advise he can confer with his son later today and I will revisit with him and his son tomorrow morning. For now would hold off on hospice until he has spoken with his son . Discuss all with oncology NICHELLE Ely Following this call again to patient [id number] Gwen provided update on above conversation. She will update Elpidio who is still traveling. Plan to touch base again with patient again tomorrow morning. . Advance Directives Living Will: Completed, but not made available Health Care Surrogate: Copy in medical record Advance Directive Specifics Date completed: 12/17/16 Health Care Surrogate(s): Names son Elpidio Jaime as HCS Objective Vital Signs Date Time Temp Pulse Resp B/P Pulse Ox O2 Delivery O2 Flow Rate FiO2 01/13/17 05:01 94 6.00 01/13/17 04:00 100.5 98 24 144/70 94 01/13/17 00:00 99.0 93 16 127/71 95 01/12/17 22:00 Room Air 01/12/17 20:52 94 01/12/17 20:05 90 01/12/17 20:00 99.5 93 17 130/66 94 01/12/17 16:00 98.0 88 18 117/56 92 01/12/17 14:19 92 01/12/17 14:19 Room Air 01/12/17 12:00 97.8 85 18 119/66 92 Physical Exam CONSTITUTIONAL/GENERAL: This is a chronically ill appearing pt, no distress, appears fatigued TUBES/LINES/DRAINS:pIV LUE, facemask O2. +PEG tube CARDIOVASCULAR: Regular rate and rhythm, no murmurs. Peripheral pulses symmetric. RESPIRATORY/CHEST: Symmetric, unlabored respirations at rest-increased respiratory effort with conversation. Simple mask O2. Mildly dyspneic with any conversation. Clear to right, slightly diminished right, significantly decreased/minimal air movement to the left. GASTROINTESTINAL: Abdomen soft, non-tender, nondistended. No palpable masses. No guarding. Bowel sounds present.PEG tube clamped ,dressing clean/dry NEUROLOGICAL: Alert, orientedx3 . Pleasant and cooperative. Reasonable insight into hospitalization and conditions. Follows commands. Moves all 4 extremities with significant weakness PSYCHIATRIC: No obvious anxiety/depression. no apparent hallucinations or other psychotic thought process. . Diagnostic Tests Laboratory Laboratory Tests Test 01/12/17 01/13/17 06:45 04:47 White Blood Count 10.4 TH/MM3 (4.0-11.0) Red Blood Count 2.95 MIL/MM3 (4.50-5.90) Hemoglobin 8.4 GM/DL (13.0-17.0) Hematocrit 25.2 % (39.0-51.0) Mean Corpuscular Volume 85.4 FL (80.0-100.0) Mean Corpuscular Hemoglobin 28.4 PG (27.0-34.0) Mean Corpuscular Hemoglobin 33.2 % Concent (32.0-36.0) Red Cell Distribution Width 15.5 % (11.6-17.2) Platelet Count 357 TH/MM3 (150-450) Mean Platelet Volume 7.2 FL (7.0-11.0) Sodium Level 138 MEQ/L (136-145) Potassium Level 4.3 MEQ/L (3.5-5.1) Chloride Level 105 MEQ/L (98-107) Carbon Dioxide Level 21.2 MEQ/L (21.0-32.0) Anion Gap 12 MEQ/L (5-15) Blood Urea Nitrogen 79 MG/DL (7-18) Creatinine 2.32 MG/DL (0.60-1.30) Estimat Glomerular Filtration 28 ML/MIN (>89) Rate Random Glucose 129 MG/DL (74-106) Calcium Level 8.4 MG/DL (8.5-10.1) Blood Gas Puncture Site RT RADIAL Blood Gas Patient Temperature 98.6 Blood Gas HCO3 21 mmol/L (22-26) Blood Gas Base Excess -3.9 mmol/L (-2-2) Blood Gas Oxygen Saturation 82 % (90-100) Arterial Blood pH 7.36 (7.380-7.420) Arterial Blood Partial 37 mmHg (38-42) Pressure CO2 Arterial Blood Partial 51 mmHg Pressure O2 (61-120) Arterial Blood Oxygen Content 10.5 Vol % (12.0-20.0) Arterial Blood 2.0 % (0-4) Carboxyhemoglobin Arterial Blood Methemoglobin 1.2 % (0-2) Blood Gas Hemoglobin 9.1 G/DL (12.0-16.0) Oxygen Delivery Device NASAL CANNULA Blood Gas Liter Flow 2 L/M Result Diagram: 01/12/1764401/12/17644 Assessment and Plan Disease Oriented Problem List: (1) Mass of left lung Comment: +SCC (2) Acute renal failure (3) Squamous cell lung cancer (4) Bladder mass (5) Anemia (6) UTI (urinary tract infection) Comment: awaiting BX/resection when stable (7) Severe muscle deconditioning (8) Acute respiratory failure Comment: resolved Symptom Scale: (1) Malnutrition (2) Dyspnea (3) Weakness Pertinent Non-Medical Issues Psychosocial:. 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 Lives at home alone. Supported by 4 sons, 2 in [place], 2 in [place] Spiritual: Legal:pt appears able to participate in decision making. Reports his son Elpidio is HCS, they will provide copies. Pt appears to have simple understanding of things and wishes to include his son in medical updates and decision making . Ethical issues impacting care: Important Contacts Son Marly Landeros- ([facility]) Elpidio Jaime [phone] (Gwen, DIL [phone]) Son Marly Jaime [phone] . Prognosis This patient has a new diagnosis of squamous cell carcinoma, s/p mass resection , intubation and arrest. He subsequently suffered acute renal failure and remains on hemodialysis. He has new findings of a large bladder mass, concerning for cancer, however cannot have additional diagnostic procedures until acute condition improves. It is possible his cancer could be treated, however his acute issues need to improve and his overall performance status needs to improve in order to obtain staging, and possible treatment. He has multiple issues and is severely deconditioned, it may take significant time for him to improve enough for treatment and during that time he remains high risk for further complications and setbacks. Code Status: Full Code Plan * Legal decision maker:pt appears able to participate in decision making. Reports his son Elpidio is HCS, they will provide copies. Pt appears to have simple understanding of things and wishes to include his son in medical updates and decision making . HCS completed 12/17/16 naming son Elpidio Jaime as HCS * Goals: GOALS HAVE BEEN AGGRESSIVE, pt wants to try to get needed resources in line in order to to go back home to [place] with his son, and possible obtain chemotherapy to treat his cancer and have more time. Patient's son and healthcare surrogate Elpidio is supportive of the patient's wishes. They're working to try to get him up to [place] closer to them. I provided an update to son 12/19 --12/27/16-discussion with patient, oncology PA as well as bedside regarding unlikely he will be able to pursue chemotherapy, usually be expected to experience continued decline and debility here in the hospital setting explored with him hospice option. He is not ready to transition to hospice at this time. Also spoke with his family regarding, they will have ongoing conversations with patient. Patient also advises he will talk to his family about the possibility of transitioning to hospice, he is open to ongoing discussions regarding. --01/07/17patient continues to express aggressive goals. He is not interested in hospice or de-escalation of treatment at this time. He expresses desire to complete radiation treatment here and then try to transfer to [place] after that. Updated [id number], Family continues to support whatever the patient wishes are. -- 01/13/17- Pt off unit. need to re address [facility], hospice has been consulted during [facility] [place] earlier this am. Could d/c w hospice, however would not be able to cont radiation on hospice. 1400 patient seen later in the afternoon after his return from radiation. Has now completed 4 of 25 treatments. He endorses feeling more tired and out of sorts in the past day or so. No specific complaints otherwise. He affirms DNR status. He is not certain if he wishes to proceed with hospice, or if he wishes to remain in the hospital and attempt to continue radiation treatments, other aggressive treatments short of resuscitation. He is going to talk more with his son Elpidio when he arrives later today to make further decisions. Palliative plans to follow-up again with him tomorrow 01/14 * CODE STATUS: DNR * SYMPTOMS: --dyspnea- s/p acute resp failure- prolonged intubation, resolved. Has been on nasal cannula O2, PRN nebulizers-- denies and shortness of breath; earlier today with episode of desaturation, dyspnea. CXR appears unchanged, essentially white out of left lung. Episode of respiratory distress earlier this week, required transfer to ICU and BiPAP, now out of ICU. currently maintaining on nasal cannula - has elected NOT to use B IPAP anymore. HALICAT earlier this am due to hemoptysis, desaturation, pt elected NO intubation, DNR, comfort measures only, HOSPICE consulted, consult PENDING. No decisions made at this point, patient awaiting arrival of his son later today --malnutrition- +PEG, TF at night, + oral food in day time, on MEGACE, appetite fair, appears to improving intake slowly -- eating 50%-75% of most recent meals. --weakness/deconditioning - in hospital since 10/22 -- severely deconditioned- -> PT working with, pt with limited strength to even sit on side of bed.Pt reports difficulty feeding self due to weakness.Continues to work with OT/PT though clinical condition limits his ability to participate in prolonged therapy --Dysphagia- post ST eval,tolerating thin liquids, probably remains ongoing risk for aspiration * Palliative care will continue to follow during hospital course as condition evolves, to assist patient/decision-maker with understanding of medical conditions, weighing benefits/burdens of treatment options, for clarification of goals of treatment. Additionally will assist with any symptoms of palliative concern Time Spent Total Floor Time (mins): 45 >50% Counseling/Coord of Care: Yes (discussion with nurse, oncology PA) Attestation To help prompt me to consider important information that might be impacting today's encounter and assessment, information from prior notes written by myself or my colleagues may have been "brought forward" into today's note. My signature on this note, however, is an attestation that I personally performed the exam, history, and/or decision-making noted today, and, unless otherwise indicated, the interactions with patient, family, and staff as well as the review of records all occurred today. I also attest that the listed assessment and stated plan reflect my best clinical judgment today based on the combination of historical information, prior notes, and today's exam/ interactions. When time spent is documented, it refers only to time spent today by the signer, or if indicated, combined time spent today by collaborating physician/nurse practitioner. Evangelina Watson Jan 13, 2017 10:19
--- NOTE | 2017-01-13 11:54 | HHI.NPPN ---
Subjective General Problems: Anemia, Edema Renal Failure: Acute History of Present Illness 71 y/o male pt. [place] [facility] [place] [facility] with renal failure from possible ATN. Interval History Had cystoscopy today. Renal function has improved. (Marina Mcgovern) Review of Systems General Constitutional: Fatigue General Remarks generalized weakness (Marina Mcgovern) Objective Data Data 01/12/17 01/13/17 19:00 07:00 Intake Total 800 ml 1120 ml Output Total 2300 ml 2200 ml Balance -1500 ml -1080 ml Intake Oral 600 ml 480 ml IV Total 200 ml Tube Feeding 520 ml Other 120 ml Output Urine Total 2300 ml 2200 ml # Bowel Movements 0 2 Vital Signs Date Time Temp Pulse Resp B/P Pulse Ox O2 Delivery O2 Flow Rate FiO2 01/13/17 08:59 100 Simple Mask 15.00 01/13/17 08:00 96.1 83 22 141/71 22 01/13/17 05:01 94 6.00 01/13/17 04:00 100.5 98 24 144/70 94 01/13/17 00:00 99.0 93 16 127/71 95 01/12/17 22:00 Room Air 01/12/17 20:52 94 01/12/17 20:05 90 01/12/17 20:00 99.5 93 17 130/66 94 01/12/17 16:00 98.0 88 18 117/56 92 01/12/17 14:19 92 01/12/17 14:19 Room Air 01/12/17 12:00 97.8 85 18 119/66 92 (Marina Mcgovern) -: 01/12/17 0645 01/12/17 0645 Tubes & Lines: Miranda Tubes & Lines Comment PEG, (Marina Mcgovern) Physical Exam General Appearance: Well Developed, Well Nourished, No Acute Distress, Comfortable ( Marina Mcgovern) Eyes Eye Exam: Pupils Equal, Pupils Reactive (Marina Mcgovern) Throat Throat Exam: Oral Mucosa [place] & Moist (Marina Mcgovern) Pulmonary Resp Exam: Breath Sounds Equal, No Distress, Decreased Bases, Diminished Breath Sounds (Marina Mcgovern) Cardiology CV Exam: Regular, Normal Sinus Rhythm, Good Perfusion, Murmur (Marina Mcgovern) Gastrointestinal/Abdomen GI Exam: Soft, Non-Tender, Bowel Sounds Present, Positive Bowel Movement ( Marina Mcgovern) Genitourinary Exam: Clear Urine (Marina Mcgovern) Musculoskeletal MS Exam: Joints Intact, Atrophy, Unable to Ambulate (Marina Mcgovern) Integumentary Skin Exam: Clear, Warm, Dry, Intact (Marina Mcgovern) Extremeties Extremities Exam: Trace Edema (Marina Mcgovern) Neurologic Neuro Exam: Alert, Awake, Oriented, Speech Clear (Marina Mcgovern) Assessment/Plan Discussed Condition With: Patient, Son Assessment Summary: TODD/Acute Renal Failure, Acute Tubular Necrosis Problem List: (1) Acute renal failure Plan: He had creatinine 0.77 in October Renal failure ATN due to PEA arrest HD started around 11/08 , last treatment on 12/17 he is in renal recovery renal funtion is better; will remove permcath remove miranda when cleared by urology avoid nephrotoxins we will sign off, reconsult us if needed (2) Anemia Plan: Hb low but stable hematology/oncology following GI bleed ruled out (3) Bronchiolar obstruction Plan: s/p stent placement, dx of squamous cell carcinoma med oncology following. Radiation therapy initiated. he may elect hospice (4) Mass of left lung Plan: oncology has evaluated, appreciate their recommendations he is unstable for systemic treatment at this time he is to have radiation therapy, treatment may begin in the next week (5) UTI (urinary tract infection) Plan: he is afebrile without leukocytosis abx per hospitalist remove miranda when evaluated by urology given bladder mass (6) Bladder mass Plan: urology following, bladder US report noted TURBT today (7) Acute respiratory failure Plan: declined over the weekend, refused intubation requesting hospice (Marina Mcgovern) Plan patient was seen and examined. Renal function is stable. PermCath can be removed. We will see as needed. (Willian Borjas MD) Problem Qualifiers (1) UTI (urinary tract infection): Marina Mcgovern Jan 13, 2017 11:53 Willian Borjas MD Jan 13, 2017 15:04
--- NOTE | 2017-01-13 12:17 | HHI.PR ---
Subjective Remarks Mr. Jaime is here undergoing radiation therapy for lung cancer. He is globally weak. Stable conditions of anemia and CKD remain stable at last check. Objective Vital Signs Date Time Temp Pulse Resp B/P Pulse Ox O2 Delivery O2 Flow Rate FiO2 01/13/17 08:59 100 Simple Mask 15.00 01/13/17 08:00 96.1 83 22 141/71 22 01/13/17 05:01 94 6.00 01/13/17 04:00 100.5 98 24 144/70 94 01/13/17 00:00 99.0 93 16 127/71 95 01/12/17 22:00 Room Air 01/12/17 20:52 94 01/12/17 20:05 90 01/12/17 20:00 99.5 93 17 130/66 94 01/12/17 16:00 98.0 88 18 117/56 92 01/12/17 14:19 92 01/12/17 14:19 Room Air I/O 01/12/17 01/12/17 01/12/17 01/13/17 01/13/17 01/13/17 07:00 15:00 23:00 07:00 15:00 23:00 Intake Total 694 ml 560 ml 720 ml 640 ml Output Total 1000 ml 1000 ml 2300 ml 1200 ml Balance -306 ml -440 ml -1580 ml -560 ml Intake Oral 240 ml 360 ml 720 ml 0 ml IV Total 200 ml Tube Feeding 454 ml 520 ml Other 120 ml Output Urine Total 1000 ml 1000 ml 2300 ml 1200 ml # Bowel Movements 2 0 0 2 Result Diagram: 01/12/17 0645 01/12/17 0645 Objective Remarks GENERAL: A&Ox3, NAD, Global Weakness SKIN: Warm and dry. HEAD: Normocephalic. EYES: No scleral icterus. No injection or drainage. NECK: Supple, trachea midline. No JVD or lymphadenopathy. CARDIOVASCULAR: Regular rate and rhythm without murmurs, gallops, or rubs. RESPIRATORY: Breath sounds equal bilaterally. No accessory muscle use. GASTROINTESTINAL: Abdomen soft, non-tender, nondistended. MUSCULOSKELETAL: No cyanosis, or edema. BACK: Nontender without obvious deformity. No CVA tenderness. Medications and IVs Administered Medications Medications (Trade) Dose Ordered Sig/Luis Carlos Route PRN Reason Start Time Stop Time Status Last Admin Dose Admin IV Flush (NS Flush) 2 ml BID FLUSH 12/05/16 21:00 01/13/17 09:00 Docusate Sodium (Colace) 100 mg Q12H PO 12/05/16 18:00 01/12/17 16:53 Ferrous Sulfate (Ferrous Sulfate Liq) 300 mg DAILY PO 12/06/16 09:00 01/13/17 09:37 Atorvastatin Calcium (Lipitor) 40 mg HS PO 12/05/16 21:00 01/12/17 22:16 Furosemide (Lasix Liq) 40 mg DAILY TUBE 12/06/16 09:00 Hold 12/20/16 08:50 Senna/Docusate Sodium 2 tab 2 tab BID PRN PO CONSTIPATION 12/05/16 19:45 12/30/16 05:45 Sodium Chloride (NS 1000 ml Inj) 1,000 ml @ 0 mls/hr Q0M PRN IV For Prime & Rinse Back 12/06/16 12:11 12/12/16 09:33 Heparin Sodium (Porcine) (Heparin Inj) UNSCH PRN .XX WITH DIALYSIS 12/06/16 12:15 12/14/16 16:39 Gentamicin Sulfate (Gentamicin (Dialysis) Inj) 20 mg UNSCH PRN IV WITH DIALYSIS 12/06/16 12:15 12/14/16 16:39 Acetaminophen (Tylenol) 650 mg UNSCH PRN PO for headach, pain, temp > 101F 12/06/16 12:15 12/14/16 07:54 Clonidine (Catapres) 0.1 mg UNSCH PRN PO SYS BP GREATER THAN 160 MMHG 12/06/16 12:15 12/19/16 06:27 Epoetin Blanco (Epogen Inj) 10,000 units UNSCH PRN IV WITH DIALYSIS 12/06/16 12:15 12/14/16 16:39 Megestrol Acetate (Megace Liq) 400 mg DAILY PO 12/08/16 09:00 01/13/17 09:37 Heparin Sodium (Porcine) (Heparin Inj) 5,000 units Q12HR SQ 12/08/16 21:00 Hold 01/13/17 09:37 Phenytoin (Dilantin Liq) 300 mg Q12HR PO 12/08/16 21:00 01/13/17 09:36 Fluticasone Propionate 2 spray 2 spray DAILY EACH NARE 12/18/16 12:00 01/13/17 09:00 Sodium Chloride (1/2 NS 1000 ml Inj) 1,000 ml @ 65 mls/hr [id number] IV 12/20/16 10:00 Hold 12/24/16 21:10 Pantoprazole Sodium (Protonix) 40 mg DAILY PO 12/25/16 10:30 01/13/17 09:38 Miscellaneous Information Patient in critical care unit? Ass... Q361D .XX 12/25/16 22:30 12/25/16 22:30 Doxazosin Mesylate (Cardura) 10 mg HS PO 12/26/16 21:00 01/12/17 22:15 Nifedipine (Procardia Xl) 90 mg DAILY PO 12/27/16 09:00 01/13/17 09:37 Miscellaneous (Pill Splitter) 1 ea UNSCH PRN OTHER SEE LABEL COMMENTS 12/26/16 19:00 12/27/16 10:33 Doxazosin Mesylate (Cardura) 4 mg DAILY PO 12/29/16 09:00 01/13/17 09:38 Clonidine 0.1 mg 0.1 mg Q8HR PO 01/03/17 22:00 01/13/17 06:17 Ceftriaxone Sodium 1000 mg/ Sodium Chloride 100 ml @ 200 mls/hr Q24H IV 01/05/17 11:00 01/12/17 11:25 Fluconazole/ Sodium Chloride (Diflucan 200 Mg Premix Bag) 100 ml @ 100 mls/hr Q24H IV 01/05/17 11:00 01/12/17 10:17 Lorazepam (Ativan Inj) 1 mg Q4H PRN IV PUSH comfort measure/anxiety 01/13/17 05:15 01/13/17 09:43 A/P Problem List: (1) Weakness ICD Code: R53.1 Assessment & Plan: Remains PT continued Unable to discharge to home unless more functional, which he is unlikely to become (2) Squamous cell lung cancer ICD Code: C34.90 Assessment & Plan: Continued Radiation treatments Oncology following No dyspnea No hemoptysis (3) Anemia ICD Code: D64.9 Assessment & Plan: Monitor for now stable Follow CBC (4) Acute renal failure ICD Code: N17.9 Assessment & Plan: Slight improvements through time stable CKD Follow renal function Assessment and Plan Bladder Lesion Flexible cystocope revealed a benign extension of the prostate Problem Qualifiers (1) Squamous cell lung cancer: Qualified Code: C34.92 - Squamous cell lung cancer, left Patrick Taylor MD Jan 13, 2017 12:16
[2017-01-13] MEDS: FLUCONAZOLE 200 MG PREMIX BAG 100 ML IV SCH (12:47)
[2017-01-13] MEDS: cefTRIAXone INJ 1,000 MG in SODIUM CHLORIDE 0.9% INJ 100 ML IV SCH (12:47)
--- NOTE | 2017-01-13 20:29 | HHI.PR ---
Subjective Remarks . Afebrile. Anxious to have radiation started had EGD, has esophagitis Tolerates PO Had a rough night Breathing better, on VM had radiation treatment Son at Objective Vital Signs Vital Signs Date Time Temp Pulse Resp B/P Pulse Ox O2 Delivery O2 Flow Rate FiO2 01/13/17 17:57 92 Simple Mask 12.00 01/13/17 16:00 98.4 97 20 121/59 95 01/13/17 12:00 97.1 100 20 118/59 92 01/13/17 09:35 100 Simple Mask 15.00 21 01/13/17 08:59 100 Simple Mask 15.00 01/13/17 08:00 96.1 83 22 141/71 22 01/13/17 05:01 94 6.00 01/13/17 04:00 100.5 98 24 144/70 94 01/13/17 00:00 99.0 93 16 127/71 95 01/12/17 22:00 Room Air 01/12/17 20:52 94 I/O 01/12/17 01/12/17 01/12/17 01/13/17 01/13/17 01/13/17 07:00 15:00 23:00 07:00 15:00 23:00 Intake Total 694 ml 560 ml 720 ml 640 ml 210 ml 480 ml Output Total 1000 ml 1000 ml 2300 ml 1200 ml 950 ml Balance -306 ml -440 ml -1580 ml -560 ml 210 ml -470 ml Intake Oral 240 ml 360 ml 720 ml 0 ml 480 ml IV Total 200 ml 210 ml Tube Feeding 454 ml 520 ml Other 120 ml Output Urine Total 1000 ml 1000 ml 2300 ml 1200 ml 950 ml # Bowel Movements 2 0 0 2 Result Diagram: 01/12/1745 01/12/1745 Objective Remarks GENERAL: Patient is lying in bed in NAD SKIN: Warm and dry. HEAD: Normocephalic. EYES: No scleral icterus. No injection or drainage. NECK: Supple, trachea midline. No JVD or lymphadenopathy. CARDIOVASCULAR: Regular rate and rhythm without murmurs, gallops, or rubs. RESPIRATORY: Breath sounds equal bilaterally. No accessory muscle use. GASTROINTESTINAL: Abdomen soft, non-tender, nondistended. MUSCULOSKELETAL: No cyanosis, or edema. BACK: Nontender without obvious deformity. No CVA tenderness. 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 Patient underwent radiation simulation on 12/23/16. XRT will possibly start next week . Heme Onc is following Monitor renal function, avoid nephrotoxins, Renal is following Supplement 02 to keep sat >90% Encourage PO intake. CXR in Valeriy Wharton MD Jan 13, 2017 20:29
[2017-01-13] MEDS: ATORVASTATIN 40 MG TAB PO SCH (21:18)
[2017-01-14] VITALS (9 sets, daily range): BP systolic 105–122; BP diastolic 55–67; PULSE 89–98; RESP 17–20; TEMP 97.1–99.3; O2SAT 92–99
[2017-01-14] MEDS: MORPHINE SULFATE 4 MG/ML INJ IV PUSH PRN ×3 (03:12→17:34)
[2017-01-14] MEDS: cloNIDine HCL 0.1 MG TAB PO SCH ×3 (05:59→22:00)
[2017-01-14] MEDS: DOCUSATE SODIUM 100 MG CAP PO SCH ×2 (05:59→17:22)
--- NOTE | 2017-01-14 06:26 | RADRPT ---
EXAM DATE/TIME: 01/14/2017 05:43 [facility] COMPARISON: CHEST SINGLE AP, December 25, 2016, 8:59. INDICATIONS : Shortness of breath. MEDICAL HISTORY : Carcinoma, lung. Cardiovascular disease. Hypertension. SURGICAL HISTORY : None. ENCOUNTER: Subsequent ACUITY: 1 month PAIN SCORE: Non-responsive. LOCATION: Bilateral chest FINDINGS: The right lung is now grossly clear. The previously noted infiltrate in the right lower lung has reso lved. No definite right sided pleural effusion. There continues to be complete opacification left hem ithorax which is unchanged. The bony structures are stable. There is no pneumothorax. CONCLUSION: The right lung is grossly clear. No change in the complete opacification of the left hemithorax. Tono Vazquez MD on January 14, 2017 at 6:24 Board Certified Radiologist. This report was verified electronically.
[2017-01-14 07:27] LABS: MEAN CELL VOLUME 86.9 FL (80.0-100.0); MEAN CORPUSCULAR HEMOGLOBIN 28.5 PG (27.0-34.0); MEAN CORPUSCULAR HGB CONC 32.8 % (32.0-36.0); PLATELET COUNT 359 TH/MM3 (150-450); RED BLOOD COUNT 2.87 MIL/MM3 (4.50-5.90); RED CELL DISTRIBUTION WIDTH 15.2 % (11.6-17.2); REVIEW FLAG FINAL; WHITE BLOOD COUNT 10.1 TH/MM3 (4.0-11.0)
[2017-01-14 07:54] LABS: BICARBONATE 21.9 MEQ/L (21.0-32.0); POTASSIUM 4.2 MEQ/L (3.5-5.1)
[2017-01-14] MEDS: DOXAZOSIN MESYLATE 4 MG TAB PO SCH ×2 (08:57→23:01)
[2017-01-14] MEDS: MEGESTROL ACETATE SUSP 400 MG/10 ML CUP PO SCH (08:57)
[2017-01-14] MEDS: FERROUS SULFATE 300 MG /5ML UDC PO SCH (08:57)
[2017-01-14] MEDS: FLUTICASONE PROPIONATE 50 MCG/ACT 16 GM NASAL SPRAY EACH NARE SCH (08:57)
[2017-01-14] MEDS: PANTOPRAZOLE SOD 40 MG DELAYED RELEASE TAB PO SCH (08:57)
[2017-01-14] MEDS: SODIUM CHLORIDE 0.9% FLUSH 5 ML FLUSH FLUSH SCH ×2 (08:57→21:00)
[2017-01-14] MEDS: NIFEdipine 90 MG SUSTAINED RELEASE TAB PO SCH (08:57)
--- NOTE | 2017-01-14 10:05 | HHI.HCPN ---
Reason for visit a. To assist with evaluation and management of symptoms including: dyspnea, weakness, malnutrition b. To assist medical decision maker(s) with: better understanding of current medical conditions; weighing benefits/burdens of medical treatment options; making medical treatment decisions. Subjective/Interval History Pt seen to follow up on dyspnea , goals. Early yesterday am pt had [facility] emergency called due to resp distress. He elected DNR , and was awaiting his son's arrival from out of state before making further decisions RE possible hospice, GOC going forward. Pt remained stable overnight, on/off simple mask O2, sats in the 90s. H&H slowly trending down, 8.2/ 25.0. Urine creatinine stable, still not requiring dialysis. BUN 84 , creatinine 2.32. Primary nurse indicated patient elected not to do radiation today, said he felt too tired after the episode yesterday morning. Nursing also informs me that he had episode of chest pain overnight with some emesis, and chest pain again this morning which resolved with use of prn morphine. No further episodes dyspnea. Pt seen in room at present. He is initially sleeping. Arouses easily. He informs his arrived and done yesterday they have really talked at length about his conditions or goals. He indicates his son is still here today he is gone downstairs to his vehicle he'll be back up shortly. Patient appears to have good recall of yesterday's events, he indicates he is feeling well today. He is off of oxygen today. He denies shortness of breath or pain. He tells me he ate breakfast, some eggs which were as good as the hospital gets in terms of food. He is not ready to make any further decisions until he has spoken with his son. He is open to meeting further with me and his son, card and number left they are to notify me when son arrives back to unit. -1200---Later called by son who is now at bedside, met w them at bedside. . Family/friend interactions -1200---Later called by son who is now at bedside, met w them at bedside. review of conditions, prognosis, tx currently in place, dnr status, limited tx options going forward. Patient remains very firm that he wants to continue to be DNR understands what this entails. However patient still not sure if he wishes to try to continue with radiation and stay here in the hospital setting or discharge home with hospice with the goal of trying to transfer to hospice in [place] to be near his family at end-of-life. Much discussion regarding limitations of continuing with treatments given patient's debilitated state, he remains high risk for further complications and setbacks during the treatment course. Review that he is somewhat stable now and it is not known how long he will remain stable and able to tolerate a possible ground transfer out of state. (I.e. hospice to hospice) patient and family are going to continue to discuss today, no decisions made as of yet. Advance Directives Living Will: Completed, but not made available Health Care Surrogate: Copy in medical record Advance Directive Specifics Date completed: 12/17/16 Health Care Surrogate(s): Names son Elpidio Jaime as HCS Objective Vital Signs Date Time Temp Pulse Resp B/P Pulse Ox O2 Delivery O2 Flow Rate FiO2 01/14/17 08:00 98.9 97 20 119/67 95 01/14/17 04:00 97.4 96 17 110/56 99 01/14/17 00:00 99.3 98 17 122/64 98 01/13/17 21:20 Simple Mask 12.00 21 01/13/17 20:00 97.2 92 18 129/70 100 01/13/17 17:57 92 Simple Mask 12.00 01/13/17 16:00 98.4 97 20 121/59 95 01/13/17 12:00 97.1 100 20 118/59 92 Physical Exam CONSTITUTIONAL/GENERAL: This is a chronically ill appearing pt, no distress, appears fatigued TUBES/LINES/DRAINS:pIV DWAYNE,RA. +PEG tube CARDIOVASCULAR: Regular rate and rhythm, no murmurs. Peripheral pulses symmetric. RESPIRATORY/CHEST: Symmetric, unlabored respirations. room air. Clear to right, significantly decreased/minimal air movement to the left. GASTROINTESTINAL: Abdomen soft, non-tender, nondistended. No palpable masses. No guarding. Bowel sounds present.PEG tube clamped ,dressing clean/dry NEUROLOGICAL: Alert, orientedx3 . Pleasant and cooperative. Reasonable insight into hospitalization and conditions. Follows commands. Moves all 4 extremities with significant weakness PSYCHIATRIC: No obvious anxiety/depression. no apparent hallucinations or other psychotic thought process. . Diagnostic Tests Laboratory Laboratory Tests Test 4/01/13/17 01/14/17 06:45 04:47 06:43 White Blood Count 10.4 TH/MM3 10.1 TH/MM3 (4.0-11.0) (4.0-11.0) Red Blood Count 2.95 MIL/MM3 2.87 MIL/MM3 (4.50-5.90) (4.50-5.90) Hemoglobin 8.4 GM/DL 8.2 GM/DL (13.0-17.0) (13.0-17.0) Hematocrit 25.2 % 25.0 % (39.0-51.0) (39.0-51.0) Mean Corpuscular Volume 85.4 FL 86.9 FL (80.0-100.0) (80.0-100.0) Mean Corpuscular Hemoglobin 28.4 PG 28.5 PG (27.0-34.0) (27.0-34.0) Mean Corpuscular Hemoglobin 33.2 % 32.8 % Concent (32.0-36.0) (32.0-36.0) Red Cell Distribution Width 15.5 % 15.2 % (11.6-17.2) (11.6-17.2) Platelet Count 357 TH/MM3 359 TH/MM3 (150-450) (150-450) Mean Platelet Volume 7.2 FL 7.0 FL (7.0-11.0) (7.0-11.0) Sodium Level 138 MEQ/L 139 MEQ/L (136-145) (136-145) Potassium Level 4.3 MEQ/L 4.2 MEQ/L (3.5-5.1) (3.5-5.1) Chloride Level 105 MEQ/L 105 MEQ/L (98-107) (98-107) Carbon Dioxide Level 21.2 MEQ/L 21.9 MEQ/L (21.0-32.0) (21.0-32.0) Anion Gap 12 MEQ/L (5-15) 12 MEQ/L (5-15) Blood Urea Nitrogen 79 MG/DL (7-18) 84 MG/DL (7-18) Creatinine 2.32 MG/DL 2.32 MG/DL (0.60-1.30) (0.60-1.30) Estimat Glomerular Filtration 28 ML/MIN (>89) 28 ML/MIN (>89) Rate Random Glucose 129 MG/DL 132 MG/DL (74-106) (74-106) Calcium Level 8.4 MG/DL 8.8 MG/DL (8.5-10.1) (8.5-10.1) Blood Gas Puncture Site RT RADIAL Blood Gas Patient Temperature 98.6 Blood Gas HCO3 21 mmol/L (22-26) Blood Gas Base Excess -3.9 mmol/L (-2-2) Blood Gas Oxygen Saturation 82 % (90-100) Arterial Blood pH 7.36 (7.380-7.420) Arterial Blood Partial 37 mmHg (38-42) Pressure CO2 Arterial Blood Partial 51 mmHg Pressure O2 (61-120) Arterial Blood Oxygen Content 10.5 Vol % (12.0-20.0) Arterial Blood 2.0 % (0-4) Carboxyhemoglobin Arterial Blood Methemoglobin 1.2 % (0-2) Blood Gas Hemoglobin 9.1 G/DL (12.0-16.0) Oxygen Delivery Device NASAL CANNULA Blood Gas Liter Flow 2 L/M Result Diagram: 01/14/17 0643 01/14/17 0643 Imaging Last Impressions Chest X-Ray 01/14/17 0600 Signed Impressions: Service Date/Time: Saturday, January 14, 2017 05:43 - CONCLUSION: The right lung is grossly clear. No change in the complete opacification of the left hemithorax. Tono Vazquez MD Lower Extremity Ultrasound 01/06/17 0000 Signed Impressions: Service Date/Time: Friday, January 06, 2017 09:02 - CONCLUSION: Normal examination. Shawn Reyes MD Upper Extremity Ultrasound 12/11/16 1506 Signed Impressions: Service Date/Time: Sunday, December 11, 2016 18:00 - CONCLUSION: Superficial thrombophlebitis, extensive edema and nonspecific fluid collections in the subcutaneous tissues. Shawn Reyes MD Head CT 12/11/16 0000 Signed Impressions: Service Date/Time: Sunday, December 11, 2016 20:00 - CONCLUSION: Slight atrophic and small vessel ischemic changes without any evidence for acute hemorrhage or mass effect. Shawn Reyes MD Renal Ultrasound 12/09/16 0000 Signed Impressions: Service Date/Time: Friday, December 09, 2016 15:16 - CONCLUSION: 1. 8.4 cm mass lesion at the base of the bladder. This may represent an intrinsic mass of the bladder versus a prominent anterior lobe of the prostate. 2. Otherwise, urinary bladder is partially decompressed with a Lipscomb catheter. 3. Both kidneys are sonographically normal. Roby Horta MD Assessment and Plan Disease Oriented Problem List: (1) Mass of left lung Comment: +SCC (2) Acute renal failure (3) Squamous cell lung cancer (4) Bladder mass (5) Anemia (6) UTI (urinary tract infection) Comment: awaiting BX/resection when stable (7) Severe muscle deconditioning (8) Acute respiratory failure Comment: resolved Symptom Scale: (1) Malnutrition (2) Dyspnea (3) Weakness Pertinent Non-Medical Issues Psychosocial:. 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 Lives at home alone. Supported by 4 sons, 2 in [place], 2 in [place] Spiritual: Legal:pt appears able to participate in decision making. Reports his son Elpidio is [facility], they will provide copies. Pt appears to have simple understanding of things and wishes to include his son in medical updates and decision making . Ethical issues impacting care: Important Contacts Son Marly Landeros- ([facility]) Elpidio Dietrichpatrizia [phone] (Gwen, DIL [phone]) Son Marly Landeros - Soham Jaime [phone] . Prognosis This patient has a new diagnosis of squamous cell carcinoma, s/p mass resection , intubation and arrest. He subsequently suffered acute renal failure and remains on hemodialysis. He has new findings of a large bladder mass, concerning for cancer, however cannot have additional diagnostic procedures until acute condition improves. It is possible his cancer could be treated, however his acute issues need to improve and his overall performance status needs to improve in order to obtain staging, and possible treatment. He has multiple issues and is severely deconditioned, it may take significant time for him to improve enough for treatment and during that time he remains high risk for further complications and setbacks. Code Status: Full Code Plan * Legal decision maker:pt appears able to participate in decision making. Reports his son Elpidio is HCS, they will provide copies. Pt appears to have simple understanding of things and wishes to include his son in medical updates and decision making . HCS completed 12/17/16 naming son Elpidio Jaime as HCS * Goals: GOALS HAVE BEEN AGGRESSIVE, pt wants to try to get needed resources in line in order to to go back home to [place] with his son, and possible obtain chemotherapy to treat his cancer and have more time. Patient's son and healthcare surrogate Elpidio is supportive of the patient's wishes. They're working to try to get him up to [place] closer to them. I provided an update to son 12/19 -- 01/13/17- Pt off unit. need to re address [facility], hospice has been consulted during [facility] epoisode earlier this am. Could d/c w hospice, however would not be able to cont radiation on hospice. 1400 patient seen later in the afternoon after his return from radiation. Has now completed 4 of 25 treatments. He endorses feeling more tired and out of sorts in the past day or so. No specific complaints otherwise. He affirms DNR status. He is not certain if he wishes to proceed with hospice, or if he wishes to remain in the hospital and attempt to continue radiation treatments, other aggressive treatments short of resuscitation. He is going to talk more with his son Elpidio when he arrives later today to make further decisions. Palliative plans to follow-up again with him tomorrow 01/14 -- 01/14/17 follow up meeting w son, pt RE [facility] . Patient is very clear in desire to remain DNR. No decisions made yet regarding continuation of current treatment plan with aggressive treatment short of resuscitation versus transition to discharge with hospice . Family will continue to discuss, palliative plans to follow up with them tomorrow. I have discussed with primary nurse, oncology, and hospice admissions nurse. * CODE STATUS: DNR * SYMPTOMS: --dyspnea- s/p acute resp failure- prolonged intubation, resolved. Has been on nasal cannula O2, PRN nebulizers-- denies and shortness of breath; earlier today with episode of desaturation, dyspnea. CXR appears unchanged, essentially white out of left lung. Episode of respiratory distress earlier this week, required transfer to ICU and BiPAP, now out of ICU. currently maintaining on nasal cannula - has elected NOT to use B IPAP anymore. [facility] earlier this am due to hemoptysis, desaturation, pt elected NO intubation, DNR, comfort measures only, HOSPICE consulted. No decisions made at this point, patient still discussing with his family. --malnutrition- +PEG, TF at night, + oral food in day time, on MEGACE, appetite fair, appears to improving intake slowly -- eating 50%-75% of most recent meals. --weakness/deconditioning - in hospital since 10/22 -- severely deconditioned- -> PT working with, pt with limited strength to even sit on side of bed.Pt reports difficulty feeding self due to weakness.Continues to work with OT/PT though clinical condition limits his ability to participate in prolonged therapy --Dysphagia- post ST eval,tolerating thin liquids, probably remains ongoing risk for aspiration * Palliative care will continue to follow during hospital course as condition evolves, to assist patient/decision-maker with understanding of medical conditions, weighing benefits/burdens of treatment options, for clarification of goals of treatment. Additionally will assist with any symptoms of palliative concern Attestation To help prompt me to consider important information that might be impacting today's encounter and assessment, information from prior notes written by myself or my colleagues may have been "brought forward" into today's note. My signature on this note, however, is an attestation that I personally performed the exam, history, and/or decision-making noted today, and, unless otherwise indicated, the interactions with patient, family, and staff as well as the review of records all occurred today. I also attest that the listed assessment and stated plan reflect my best clinical judgment today based on the combination of historical information, prior notes, and today's exam/ interactions. When time spent is documented, it refers only to time spent today by the signer, or if indicated, combined time spent today by collaborating physician/nurse practitioner. Evangelina Watson Jan 14, 2017 10:05
[2017-01-14] MEDS: PHENYTOIN SUSP 100 MG/4 ML CUP PO SCH ×2 (10:32→22:57)
[2017-01-14] MEDS ORDERED: LIDOCAINE 1%/EPINEPHrine 1:100,000 SOLN 20 ML VIAL ONE (11:04)
--- NOTE | 2017-01-14 11:27 | PD.RAD ---
Post Procedure Progress Note Pre Procedure Diagnosis: (1) Acute renal failure Post Procedure Diagnosis: (1) Acute renal failure Procedure Date: Jan 14, 2017 Supervising Radiologist: Beto Perry Proceduralist/Assist: Jordan Bennett RT(R), RT Avelino(R)() Anesthesia: Local Plan of Activity Patient to Unit: Nursing Unit Patient Condition: Fair See PACS Report for procedural detail/treatment Central Venous Access Device Procedure 1 Hemodialysis Catheter Tunneled Removal dual lumen Beto Perry MD Jan 14, 2017 11:27
[2017-01-14] MEDS: cefTRIAXone INJ 1,000 MG in SODIUM CHLORIDE 0.9% INJ 100 ML IV SCH (11:41)
--- NOTE | 2017-01-14 11:44 | RADRPT ---
EXAM DATE/TIME: 01/14/2017 11:50 [place] COMPARISON: No previous studies available for comparison. INDICATIONS : Patient isin need of removal of existing central venous dialysis catheter as it is no longer needed. MEDICAL HISTORY : History of left squamous cell lung cancer, dysphagia, HTN, BPH, seizures, anemia, bronchiolar obstruc tion, left lung mass, bladder mass, acute respiratory failure, esophagitis. SURGICAL HISTORY : History of EGD, bronchoscopy, cystoscopy, permacath placeemnt, bronchial stent placement. ENCOUNTER: Initial ACUITY: 3 months PAIN SCORE: 0/10 IMAGE SERIES: 0 ACCESS: Right internal jugular vein MEDICATION(S): 1.) 10 mg Lidocaine with epinephrine SC PROCEDURE : 1. PermaCath removal. The risks, benefits and alternatives to the procedure were explained and verbal and written consent w as obtained. The site was prepped in sterile fashion. Full sterile technique was used, including ca p, mask, sterile gloves and gown and a large sterile sheet. Hand hygiene and 2% chlorhexidine and/or betadine/alcohol prep was utilized per protocol for cutaneous antisepsis. The skin and subcutaneous tissues were infiltrated with local anesthetic solution. The tract was anesthetized with 1% Lidocaine using. The Permcath was dissected from the subcutaneous tissues and easily removed in one piece. Manual pressure was applied to the venotomy site until hem ostasis was obtained. Sterile dressing was applied. The patient tolerated the procedure well and there were no complications. CONCLUSION: Uncomplicated Permcath removal. Beto Perry MD on January 14, 2017 at 11:42 Board Certified Radiologist. This report was verified electronically.
[2017-01-14] MEDS: FLUCONAZOLE 200 MG PREMIX BAG 100 ML IV SCH (12:38)
--- NOTE | 2017-01-14 18:59 | HHI.PR ---
Subjective Remarks . Afebrile. Anxious to have radiation started had EGD, has esophagitis Tolerates PO Had a rough night had radiation treatment CXR continued opacification of left lung Weaned to RA Objective Vital Signs Vital Signs Date Time Temp Pulse Resp B/P Pulse Ox O2 Delivery O2 Flow Rate FiO2 01/14/17 16:00 98.8 94 20 107/56 93 01/14/17 12:00 98.8 94 18 105/55 93 01/14/17 08:57 98 01/14/17 08:00 98.9 97 20 119/67 95 01/14/17 04:00 97.4 96 17 110/56 99 01/14/17 00:00 99.3 98 17 122/64 98 01/13/17 21:20 Simple Mask 12.00 21 01/13/17 20:00 97.2 92 18 129/70 100 I/O 01/13/17 01/13/17 01/13/17 01/14/17 01/14/17 01/14/17 07:00 15:00 23:00 07:00 15:00 23:00 Intake Total 640 ml 210 ml 480 ml 510 ml 600 ml Output Total 1200 ml 950 ml 500 ml 1100 ml 250 ml Balance -560 ml 210 ml -470 ml 10 ml -1100 ml 350 ml Intake Oral 0 ml 480 ml 600 ml IV Total 210 ml Tube Feeding 520 ml 510 ml Other 120 ml Output Urine Total 1200 ml 950 ml 500 ml 1100 ml 250 ml # Bowel Movements 2 Result Diagram: 01/14/17 0643 01/14/17 0643 Objective Remarks GENERAL: Patient is lying in bed in NAD SKIN: Warm and dry. HEAD: Normocephalic. EYES: No scleral icterus. No injection or drainage. NECK: Supple, trachea midline. No JVD or lymphadenopathy. CARDIOVASCULAR: Regular rate and rhythm without murmurs, gallops, or rubs. RESPIRATORY: Breath sounds equal bilaterally. No accessory muscle use. GASTROINTESTINAL: Abdomen soft, non-tender, nondistended. MUSCULOSKELETAL: No cyanosis, or edema. BACK: Nontender without obvious deformity. No CVA tenderness. 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 Patient underwent radiation simulation on 12/23/16. XRT will possibly start next week . Heme Onc is following Monitor renal function, avoid nephrotoxins, Renal is following Supplement 02 to keep sat >90% Encourage PO intake. Valeriy Wilkins MD Jan 14, 2017 18:59
--- NOTE | 2017-01-14 20:22 | HHI.PR ---
Subjective Remarks Delayed entry, patient seen before noon today. Halicat yesterday for hemoptysis, respiratory distress. Patient changed his code status to DNR at the time. He reports feeling ok today. Pain is controlled. No radiation today because he is very tired. Son at bedside. Objective Vitals Vital Signs Date Time Temp Pulse Resp B/P Pulse Ox O2 Delivery O2 Flow Rate FiO2 01/14/17 16:00 98.8 94 20 107/56 93 01/14/17 12:00 98.8 94 18 105/55 93 01/14/17 09:03 Room Air 01/14/17 08:57 98 01/14/17 08:23 89 01/14/17 08:00 98.9 97 20 119/67 95 01/14/17 04:00 97.4 96 17 110/56 99 01/14/17 00:00 99.3 98 17 122/64 98 01/13/17 21:20 Simple Mask 12.00 21 I/O 01/13/17 01/13/17 01/13/17 01/14/17 01/14/17 01/14/17 07:00 15:00 23:00 07:00 15:00 23:00 Intake Total 640 ml 210 ml 480 ml 510 ml 600 ml Output Total 1200 ml 950 ml 500 ml 1100 ml 250 ml Balance -560 ml 210 ml -470 ml 10 ml -1100 ml 350 ml Intake Oral 0 ml 480 ml 600 ml IV Total 210 ml Tube Feeding 520 ml 510 ml Other 120 ml Output Urine Total 1200 ml 950 ml 500 ml 1100 ml 250 ml # Bowel Movements 2 Result Diagram: 01/14/17 0643 01/14/17 0643 Objective Remarks GENERAL: Patient is frail. In no acute distress. CARDIOVASCULAR: Regular rate and rhythm without murmurs, gallops, or rubs. RESPIRATORY: Clear to auscultation. Breath sounds equal bilaterally. No wheezes , rales, or rhonchi. GASTROINTESTINAL: Abdomen soft, non-tender, nondistended. Normal active bowel sounds MUSCULOSKELETAL: Extremities without clubbing, cyanosis, or edema. NEURO: Alert & Oriented x4 to person, place, time, situation. Moves all ext x4 Procedures 12/11- EGD- esophagitis, gastritis, duodenitis PEG placement Date of Insertion: Nov 15, 2016 Line: Central Venous Catheter A/P Problem List: (1) Bronchiolar obstruction ICD Code: J98.09 Status: Acute (2) Mass of left lung ICD Code: R91.8 Status: Acute (3) Squamous cell lung cancer ICD Code: C34.90 Status: Acute (4) Severe muscle deconditioning ICD Code: R29.898 Status: Acute (5) Anemia ICD Code: D64.9 Status: Acute (6) Acute respiratory failure ICD Code: J96.00 Status: Acute (7) Hemoptysis ICD Code: R04.2 Status: Acute (8) Hypoxia ICD Code: R09.02 Status: Acute Assessment and Plan 71 Y/O male with: Respiratory failure/Left bronchial mass: Patient was at [facility]. He underwent bronchoscopy with debulking of a large mass involving the left mainstem bronchus The left main bronchus was stented. The hemoptysis was controlled and he was eventually extubated. - Patient undergoing chemotherapy. Setback on 01/13. Went into respiratory distress. Patient decided to change to DNR status. He is considering hospice. ongoing discussion with his son. Appreciate palliative care assisting. - O2 supplementation as needed. - Pain control UTI: Nisa - Continue Fluconazole. Consider ID consult if not clearing infection and patient changed his mind about hospice Acute renal failure Renal function stabilizing. Permacath removed. Nephrology signed off. Anemia: Stable hematology/oncology following continue to monitor Bladder mass: Flexible cystocope revealed a benign extension of the prostate - Urology following Physical deconditioning: Secondary to comorbid conditions above. Does not appear that he will improve. He is hoping to get strong enough to move to [place] to his family. - Encourage oral intake. Discharge Planning Further plans tomorrow based on the patient's decision. Continuing radiation vs hospice. He would like to go to [place]. Problem Qualifiers (1) Squamous cell lung cancer: Qualified Code: C34.92 - Squamous cell lung cancer, left Suzy Castillo MD Jan 14, 2017 20:21 (7) Acute respiratory failure Plan: declined over the weekend, refused intubation Problem Qualifiers (1) Squamous cell lung cancer: Qualified Code: C34.92 - Squamous cell lung cancer, left Suzy Castillo MD Jan 14, 2017 20:21
[2017-01-14] MEDS: ATORVASTATIN 40 MG TAB PO SCH (23:02)
[2017-01-15] VITALS (7 sets, daily range): BP systolic 106–152; BP diastolic 56–71; PULSE 88–96; RESP 18–24; TEMP 97.2–99; O2SAT 92–97
[2017-01-15] MEDS: DOCUSATE SODIUM 100 MG CAP PO SCH ×2 (06:13→17:49)
[2017-01-15] MEDS: cloNIDine HCL 0.1 MG TAB PO SCH ×3 (06:13→22:00)
--- NOTE | 2017-01-15 09:38 | HHI.PR ---
Subjective Remarks Patient states he is resuming radiation today. States if radiation doesn't work he will enroll in Hospice. no new issues. Objective Vitals Vital Signs Date Time Temp Pulse Resp B/P Pulse Ox O2 Delivery O2 Flow Rate FiO2 01/15/17 08:25 93 21 01/15/17 04:00 99.0 88 18 131/66 97 01/15/17 00:00 97.7 95 18 123/65 94 01/14/17 23:00 Room Air 94 01/14/17 20:03 91 01/14/17 20:00 97.1 93 18 109/59 92 01/14/17 16:00 98.8 94 20 107/56 93 01/14/17 12:00 98.8 94 18 105/55 93 I/O 01/14/17 01/14/17 01/14/17 01/15/17 01/15/17 01/15/17 07:00 15:00 23:00 07:00 15:00 23:00 Intake Total 510 ml 600 ml Output Total 500 ml 1100 ml 1050 ml 650 ml Balance 10 ml -1100 ml -450 ml -650 ml Intake Oral 600 ml Tube Feeding 510 ml Output Urine Total 500 ml 1100 ml 1050 ml 650 ml Result Diagram: 01/14/17 0643 01/14/17 0643 Objective Remarks GENERAL: Patient is frail. In no acute distress. CARDIOVASCULAR: Regular rate and rhythm without murmurs, gallops, or rubs. RESPIRATORY: Clear to auscultation. Breath sounds equal bilaterally. No wheezes , rales, or rhonchi. GASTROINTESTINAL: Abdomen soft, non-tender, nondistended. Normal active bowel sounds MUSCULOSKELETAL: Extremities without clubbing, cyanosis, or edema. NEURO: Alert & Oriented x4 to person, place, time, situation. Moves all ext x4 Procedures 12/11- EGD- esophagitis, gastritis, duodenitis PEG placement Date of Insertion: Nov 15, 2016 Line: Central Venous Catheter A/P Problem List: (1) Bronchiolar obstruction ICD Code: J98.09 Status: Acute (2) Mass of left lung ICD Code: R91.8 Status: Acute (3) Squamous cell lung cancer ICD Code: C34.90 Status: Acute (4) Severe muscle deconditioning ICD Code: R29.898 Status: Acute (5) Anemia ICD Code: D64.9 Status: Acute (6) Acute respiratory failure ICD Code: J96.00 Status: Acute (7) Hemoptysis ICD Code: R04.2 Status: Acute (8) Hypoxia ICD Code: R09.02 Status: Acute Assessment and Plan 71 Y/O male with: Respiratory failure/Left bronchial mass: Patient was at [facility]. He underwent bronchoscopy with debulking of a large mass involving the left mainstem bronchus The left main bronchus was stented. The hemoptysis was controlled and he was eventually extubated. - Patient undergoing radiation. Setback on 01/13. Went into respiratory distress. Patient decided to change to DNR status. He was considering hospice. ongoing discussion with his son. Appreciate palliative care assisting. Patient resuming radiation today. Wish to remain DNR. - O2 supplementation as needed. - Pain control UTI: Nisa - Continue Fluconazole. Consider ID consult if not clearing infection and patient changed his mind about hospice Acute renal failure Renal function stabilizing. Permacath removed. Nephrology signed off. Anemia: Stable hematology/oncology following continue to monitor Bladder mass: Flexible cystocope revealed a benign extension of the prostate - Urology following Physical deconditioning: Secondary to comorbid conditions above. High risk for continuing decline. - Encourage oral intake. - PT as tolerated. Discharge Planning Patient opting to continue radiation for now Problem Qualifiers (1) Squamous cell lung cancer: Qualified Code: C34.92 - Squamous cell lung cancer, left Suzy Castillo MD Jan 15, 2017 09:38
[2017-01-15] MEDS: FLUTICASONE PROPIONATE 50 MCG/ACT 16 GM NASAL SPRAY EACH NARE SCH (10:51)
[2017-01-15] MEDS: FLUCONAZOLE 200 MG PREMIX BAG 100 ML IV SCH (10:52)
[2017-01-15] MEDS: DOXAZOSIN MESYLATE 4 MG TAB PO SCH ×2 (10:52→22:15)
[2017-01-15] MEDS: SODIUM CHLORIDE 0.9% FLUSH 5 ML FLUSH FLUSH SCH ×2 (10:52→21:00)
[2017-01-15] MEDS: FERROUS SULFATE 300 MG /5ML UDC PO SCH (10:52)
[2017-01-15] MEDS: PHENYTOIN SUSP 100 MG/4 ML CUP PO SCH ×2 (10:52→22:14)
[2017-01-15] MEDS: MEGESTROL ACETATE SUSP 400 MG/10 ML CUP PO SCH (10:52)
[2017-01-15] MEDS: NIFEdipine 90 MG SUSTAINED RELEASE TAB PO SCH (10:52)
[2017-01-15] MEDS: PANTOPRAZOLE SOD 40 MG DELAYED RELEASE TAB PO SCH (10:52)
--- NOTE | 2017-01-15 11:16 | HHI.HCPN ---
Reason for visit a. To assist with evaluation and management of symptoms including: dyspnea, weakness, malnutrition b. To assist medical decision maker(s) with: better understanding of current medical conditions; weighing benefits/burdens of medical treatment options; making medical treatment decisions. Subjective/Interval History Pt seen to follow up on dyspnea , goals. Earlier this week w IRINAT episode for dyspnea/resp distress. Has remained stable since, on/off of room air. Elected DNR at that time. Yesterday declined to go to radiation, today amenable to going. Permacath removed yesterday in radiology dept. BUN/Creat have remained stable, no dialysis for several weeks. Pt seen in room just after returning from radiation tx (5 of 25 tx) I received a VM from son @ bedside. Met w them in room. Pt ROS essentially negative. They have had ongoing conversations RE continuing radiation/semi aggressive tx short of resuscitation, vs transition to hospice and d/c out of the hospital to get up to [place] with family. Pt wishes to continue to try to complete radiation, he understands remains high risk for complications/resp issues. If he experiences significant setbacks or complications /clinical deterioration during remaining hospital course while he tries to complete radiation, he would want to transition to comfort focus/hospice at that time. Plan is to enroll in hospice , and get back to [place] AFTER completing radiation. Wants to remain DNR. . Advance Directives Living Will: Completed, but not made available Health Care Surrogate: Copy in medical record Advance Directive Specifics Date completed: 12/17/16 Health Care Surrogate(s): Names son Elpidio Jaime as HCS Objective Vital Signs Date Time Temp Pulse Resp B/P Pulse Ox O2 Delivery O2 Flow Rate FiO2 01/15/17 08:25 93 21 01/15/17 08:00 98.8 96 20 152/71 93 01/15/17 04:00 99.0 88 18 131/66 97 01/15/17 00:00 97.7 95 18 123/65 94 01/14/17 23:00 Room Air 94 01/14/17 20:03 91 01/14/17 20:00 97.1 93 18 109/59 92 01/14/17 16:00 98.8 94 20 107/56 93 01/14/17 12:00 98.8 94 18 105/55 93 Physical Exam CONSTITUTIONAL/GENERAL: This is a chronically ill appearing pt, no distress, alert, pleasant TUBES/LINES/DRAINS:Juliana RICE RA. +PEG tube CARDIOVASCULAR: Regular rate and rhythm, no murmurs. Peripheral pulses symmetric. RESPIRATORY/CHEST: Symmetric, unlabored respirations. room air. Clear to right, significantly decreased/minimal air movement to the left. GASTROINTESTINAL: Abdomen soft, non-tender, nondistended. No palpable masses. No guarding. Bowel sounds present.PEG tube clamped ,dressing clean/dry NEUROLOGICAL: Alert, orientedx3 . Pleasant and cooperative. Reasonable insight into hospitalization and conditions. Follows commands. Moves all 4 extremities with significant weakness PSYCHIATRIC: No obvious anxiety/depression. . Diagnostic Tests Laboratory Laboratory Tests Test 01/13/17 01/14/17 04:47 06:43 Blood Gas Puncture Site RT RADIAL Blood Gas Patient Temperature 98.6 Blood Gas HCO3 21 mmol/L (22-26) Blood Gas Base Excess -3.9 mmol/L (-2-2) Blood Gas Oxygen Saturation 82 % (90-100) Arterial Blood pH 7.36 (7.380-7.420) Arterial Blood Partial 37 mmHg (38-42) Pressure CO2 Arterial Blood Partial 51 mmHg Pressure O2 (61-120) Arterial Blood Oxygen Content 10.5 Vol % (12.0-20.0) Arterial Blood 2.0 % (0-4) Carboxyhemoglobin Arterial Blood Methemoglobin 1.2 % (0-2) Blood Gas Hemoglobin 9.1 G/DL (12.0-16.0) Oxygen Delivery Device NASAL CANNULA Blood Gas Liter Flow 2 L/M White Blood Count 10.1 TH/MM3 (4.0-11.0) Red Blood Count 2.87 MIL/MM3 (4.50-5.90) Hemoglobin 8.2 GM/DL (13.0-17.0) Hematocrit 25.0 % (39.0-51.0) Mean Corpuscular Volume 86.9 FL (80.0-100.0) Mean Corpuscular Hemoglobin 28.5 PG (27.0-34.0) Mean Corpuscular Hemoglobin 32.8 % Concent (32.0-36.0) Red Cell Distribution Width 15.2 % (11.6-17.2) Platelet Count 359 TH/MM3 (150-450) Mean Platelet Volume 7.0 FL (7.0-11.0) Sodium Level 139 MEQ/L (136-145) Potassium Level 4.2 MEQ/L (3.5-5.1) Chloride Level 105 MEQ/L (98-107) Carbon Dioxide Level 21.9 MEQ/L (21.0-32.0) Anion Gap 12 MEQ/L (5-15) Blood Urea Nitrogen 84 MG/DL (7-18) Creatinine 2.32 MG/DL (0.60-1.30) Estimat Glomerular Filtration 28 ML/MIN (>89) Rate Random Glucose 132 MG/DL (74-106) Calcium Level 8.8 MG/DL (8.5-10.1) Result Diagram: 01/14/1764201/14/17642 Assessment and Plan Disease Oriented Problem List: (1) Mass of left lung Comment: +SCC (2) Acute renal failure (3) Squamous cell lung cancer (4) Bladder mass (5) Anemia (6) UTI (urinary tract infection) Comment: awaiting BX/resection when stable (7) Severe muscle deconditioning (8) Acute respiratory failure Comment: resolved Symptom Scale: (1) Malnutrition (2) Dyspnea (3) Weakness Pertinent Non-Medical Issues Psychosocial:. 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 Lives at home alone. Supported by 4 sons, 2 in [place], 2 in [place] Spiritual: Legal:pt appears able to participate in decision making. Reports his son Elpidio is HCS, they will provide copies. Pt appears to have simple understanding of things and wishes to include his son in medical updates and decision making . Ethical issues impacting care: Important Contacts Son Marly Landeros- ([facility]) Elpidio Jaime [phone] (Gwen, DIL [phone]) Jevon Jaime [phone] . Prognosis This patient has a new diagnosis of squamous cell carcinoma, s/p mass resection , intubation and arrest. He subsequently suffered acute renal failure and remains on hemodialysis. He has new findings of a large bladder mass, concerning for cancer, however cannot have additional diagnostic procedures until acute condition improves. It is possible his cancer could be treated, however his acute issues need to improve and his overall performance status needs to improve in order to obtain staging, and possible treatment. He has multiple issues and is severely deconditioned, it may take significant time for him to improve enough for treatment and during that time he remains high risk for further complications and setbacks. Code Status: Full Code Plan * Legal decision maker:pt appears able to participate in decision making. Reports his son Elpidio is HCS, they will provide copies. Pt appears to have simple understanding of things and wishes to include his son in medical updates and decision making . HCS completed 12/17/16 naming son Elpidio Jaime as HCS * Goals: GOALS HAVE BEEN AGGRESSIVE, pt wants to try to get needed resources in line in order to to go back home to [place] with his son, and possible obtain chemotherapy to treat his cancer and have more time. Patient's son and healthcare surrogate Elpidio is supportive of the patient's wishes. They're working to try to get him up to [place] closer to them. I provided an update to son 12/19 -- 01/13/17- Pt off unit. need to re address GO, hospice has been consulted during [facility] earlier this am. Could d/c w hospice, however would not be able to cont radiation on hospice. 1400 patient seen later in the afternoon after his return from radiation. Has now completed 4 of 25 treatments. He endorses feeling more tired and out of sorts in the past day or so. No specific complaints otherwise. He affirms DNR status. He is not certain if he wishes to proceed with hospice, or if he wishes to remain in the hospital and attempt to continue radiation treatments, other aggressive treatments short of resuscitation. He is going to talk more with his son Elpidio when he arrives later today to make further decisions. Palliative plans to follow-up again with him tomorrow 01/14 -- 01/14/17 met w pt, son, They have had ongoing conversations RE continuing radiation/semi aggressive tx short of resuscitation, vs transition to hospice and d/c out of the hospital to get up to [place] with family. Pt wishes to continue to try to complete radiation, he understands remains high risk for complications /resp issues. Plan is to enroll in hospice, after completing radiation. Wants to remain DNR. * CODE STATUS: DNR * SYMPTOMS: --dyspnea- s/p acute resp failure- prolonged intubation, resolved. Has been on nasal cannula O2, PRN nebulizers-- denies and shortness of breath; earlier today with episode of desaturation, dyspnea. CXR appears unchanged, essentially white out of left lung. Episode of respiratory distress earlier this week, required transfer to ICU and BiPAP, now out of ICU. currently maintaining on nasal cannula - has elected NOT to use B IPAP anymore. HALICAT earlier this am due to hemoptysis, desaturation, pt elected NO intubation, DNR, comfort measures only, HOSPICE consulted. Goal to Continue to pursue aggressive treatment until completion of radiation. --malnutrition- +PEG, TF at night, + oral food in day time, on MEGACE, appetite fair, appears to improving intake slowly -- eating 50%-75% of most recent meals. --weakness/deconditioning - in hospital since 10/22 -- severely deconditioned- -> PT working with, pt with limited strength to even sit on side of bed.Pt reports difficulty feeding self due to weakness.Continues to work with OT/PT though clinical condition limits his ability to participate in prolonged therapy --Dysphagia- post ST eval,tolerating thin liquids, probably remains ongoing risk for aspiration * Palliative care will continue to follow during hospital course as condition evolves, to assist patient/decision-maker with understanding of medical conditions, weighing benefits/burdens of treatment options, for clarification of goals of treatment. Additionally will assist with any symptoms of palliative concern Time Spent >50% Counseling/Coord of Care: Yes (discussed with primary nurse) Attestation To help prompt me to consider important information that might be impacting today's encounter and assessment, information from prior notes written by myself or my colleagues may have been "brought forward" into today's note. My signature on this note, however, is an attestation that I personally performed the exam, history, and/or decision-making noted today, and, unless otherwise indicated, the interactions with patient, family, and staff as well as the review of records all occurred today. I also attest that the listed assessment and stated plan reflect my best clinical judgment today based on the combination of historical information, prior notes, and today's exam/ interactions. When time spent is documented, it refers only to time spent today by the signer, or if indicated, combined time spent today by collaborating physician/nurse practitioner. Evangelina Watson Jan 15, 2017 11:15
--- NOTE | 2017-01-15 19:42 | HHI.PR ---
Subjective Remarks . Afebrile. Tolerates PO had radiation treatment Weaned to RA Objective Vital Signs Vital Signs Date Time Temp Pulse Resp B/P Pulse Ox O2 Delivery O2 Flow Rate FiO2 01/15/17 16:00 97.2 88 24 110/59 92 01/15/17 10:40 Room Air 01/15/17 08:25 93 21 01/15/17 08:00 98.8 96 20 152/71 93 01/15/17 08:00 94 01/15/17 04:00 99.0 88 18 131/66 97 01/15/17 00:00 97.7 95 18 123/65 94 01/14/17 23:00 Room Air 94 01/14/17 20:03 91 01/14/17 20:00 97.1 93 18 109/59 92 I/O 01/14/17 01/14/17 01/14/17 01/15/17 01/15/17 01/15/17 07:00 15:00 23:00 07:00 15:00 23:00 Intake Total 510 ml 600 ml 600 ml Output Total 500 ml 1100 ml 1050 ml 650 ml 700 ml Balance 10 ml -1100 ml -450 ml -650 ml -100 ml Intake Oral 600 ml 480 ml IV Total 120 ml Tube Feeding 510 ml Output Urine Total 500 ml 1100 ml 1050 ml 650 ml 700 ml Result Diagram: 01/14/1743 01/14/17 0643 Objective Remarks GENERAL: Patient is lying in bed in NAD SKIN: Warm and dry. HEAD: Normocephalic. EYES: No scleral icterus. No injection or drainage. NECK: Supple, trachea midline. No JVD or lymphadenopathy. CARDIOVASCULAR: Regular rate and rhythm without murmurs, gallops, or rubs. RESPIRATORY: Breath sounds equal bilaterally. No accessory muscle use. GASTROINTESTINAL: Abdomen soft, non-tender, nondistended. MUSCULOSKELETAL: No cyanosis, or edema. BACK: Nontender without obvious deformity. No CVA tenderness. 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 Patient underwent radiation simulation on 12/23/16. XRT will possibly start next week . Heme Onc is following Monitor renal function, avoid nephrotoxins, Renal is following Supplement 02 to keep sat >90% Valeriy Wilkins MD Jan 15, 2017 19:42
[2017-01-15] MEDS: ATORVASTATIN 40 MG TAB PO SCH (22:15)
[2017-01-16] VITALS (8 sets, daily range): BP systolic 93–152; BP diastolic 51–76; PULSE 88–94; RESP 17–18; TEMP 96.5–98.7; O2SAT 93–98
[2017-01-16] MEDS: MORPHINE SULFATE 4 MG/ML INJ IV PUSH PRN ×2 (00:52→23:07)
[2017-01-16] MEDS: DOCUSATE SODIUM 100 MG CAP PO SCH ×2 (05:52→17:52)
[2017-01-16] MEDS: cloNIDine HCL 0.1 MG TAB PO SCH ×3 (05:52→21:52)
--- NOTE | 2017-01-16 08:30 | HHI.PR ---
Subjective Remarks No Recurrence of acute dyspnea thus far (experienced two days ago). He continues to feel weak chronically, but is participating with PT. No new complaints today. Objective Vital Signs Date Time Temp Pulse Resp B/P Pulse Ox O2 Delivery O2 Flow Rate FiO2 01/16/17 00:00 98.7 94 17 129/64 94 01/15/17 22:30 Room Air 94 01/15/17 20:00 98.7 90 18 106/56 93 01/15/17 16:00 97.2 88 24 110/59 92 01/15/17 10:40 Room Air I/O 01/15/17 01/15/17 01/15/17 01/16/17 01/16/17 01/16/17 07:00 15:00 23:00 07:00 15:00 23:00 Intake Total 600 ml Output Total 650 ml 700 ml 350 ml 1200 ml Balance -650 ml -100 ml -350 ml -1200 ml Intake Oral 480 ml IV Total 120 ml Output Urine Total 650 ml 700 ml 350 ml 1200 ml Result Diagram: 01/14/17 0643 01/14/17 0643 Imaging Last Impressions Central Venous Line 01/14/17 1150 Signed Impressions: Service Date/Time: Saturday, January 14, 2017 11:50 - CONCLUSION: Uncomplicated Permcath removal. Beto Perry MD Chest X-Ray 01/14/17 0600 Signed Impressions: Service Date/Time: Saturday, January 14, 2017 05:43 - CONCLUSION: The right lung is grossly clear. No change in the complete opacification of the left hemithorax. Tono Vazquez MD Lower Extremity Ultrasound 01/06/17 0000 Signed Impressions: Service Date/Time: Friday, January 06, 2017 09:02 - CONCLUSION: Normal examination. Shawn Reyes MD Upper Extremity Ultrasound 12/11/16 1506 Signed Impressions: Service Date/Time: Sunday, December 11, 2016 18:00 - CONCLUSION: Superficial thrombophlebitis, extensive edema and nonspecific fluid collections in the subcutaneous tissues. Shawn Reyes MD Head CT 12/11/16 0000 Signed Impressions: Service Date/Time: Sunday, December 11, 2016 20:00 - CONCLUSION: Slight atrophic and small vessel ischemic changes without any evidence for acute hemorrhage or mass effect. Shawn Reyes MD Renal Ultrasound 12/09/16 0000 Signed Impressions: Service Date/Time: Friday, December 09, 2016 15:16 - CONCLUSION: 1. 8.4 cm mass lesion at the base of the bladder. This may represent an intrinsic mass of the bladder versus a prominent anterior lobe of the prostate. 2. Otherwise, urinary bladder is partially decompressed with a Lipscomb catheter. 3. Both kidneys are sonographically normal. Roby Horta MD Objective Remarks GENERAL: A&Ox3, NAD, Global Weakness SKIN: Warm and dry. HEAD: Normocephalic. EYES: No scleral icterus. No injection or drainage. NECK: Supple, trachea midline. No JVD or lymphadenopathy. CARDIOVASCULAR: Regular rate and rhythm without murmurs, gallops, or rubs. RESPIRATORY: Breath sounds equal bilaterally. No accessory muscle use. GASTROINTESTINAL: Abdomen soft, non-tender, nondistended. MUSCULOSKELETAL: No cyanosis, or edema. BACK: Nontender without obvious deformity. No CVA tenderness. Medications and IVs Administered Medications Medications (Trade) Dose Ordered Sig/Luis Carlos Route PRN Reason Start Time Stop Time Status Last Admin Dose Admin IV Flush (NS Flush) 2 ml BID FLUSH 12/05/16 21:00 01/15/17 21:00 Docusate Sodium (Colace) 100 mg Q12H PO 12/05/16 18:00 01/16/17 05:52 Ferrous Sulfate (Ferrous Sulfate Liq) 300 mg DAILY PO 12/06/16 09:00 01/15/17 10:52 Atorvastatin Calcium (Lipitor) 40 mg HS PO 12/05/16 21:00 01/15/17 22:15 Furosemide (Lasix Liq) 40 mg DAILY TUBE 12/06/16 09:00 Hold 12/20/16 08:50 Senna/Docusate Sodium 2 tab 2 tab BID PRN PO CONSTIPATION 12/05/16 19:45 12/30/16 05:45 Sodium Chloride (NS 1000 ml Inj) 1,000 ml @ 0 mls/hr Q0M PRN IV For Prime & Rinse Back 12/06/16 12:11 12/12/16 09:33 Heparin Sodium (Porcine) (Heparin Inj) UNSCH PRN .XX WITH DIALYSIS 12/06/16 12:15 12/14/16 16:39 Gentamicin Sulfate (Gentamicin (Dialysis) Inj) 20 mg UNSCH PRN IV WITH DIALYSIS 12/06/16 12:15 12/14/16 16:39 Acetaminophen (Tylenol) 650 mg UNSCH PRN PO for headach, pain, temp > 101F 12/06/16 12:15 12/14/16 07:54 Clonidine (Catapres) 0.1 mg UNSCH PRN PO SYS BP GREATER THAN 160 MMHG 12/06/16 12:15 12/19/16 06:27 Epoetin Blanco (Epogen Inj) 10,000 units UNSCH PRN IV WITH DIALYSIS 12/06/16 12:15 12/14/16 16:39 Megestrol Acetate (Megace Liq) 400 mg DAILY PO 12/08/16 09:00 01/15/17 10:52 Heparin Sodium (Porcine) (Heparin Inj) 5,000 units Q12HR SQ 12/08/16 21:00 Hold 01/13/17 09:37 Phenytoin (Dilantin Liq) 300 mg Q12HR PO 12/08/16 21:00 01/15/17 22:14 Fluticasone Propionate 2 spray 2 spray DAILY EACH NARE 12/18/16 12:00 01/15/17 10:51 Sodium Chloride (1/2 NS 1000 ml Inj) 1,000 ml @ 65 mls/hr [id number] IV 12/20/16 10:00 Hold 12/24/16 21:10 Pantoprazole Sodium (Protonix) 40 mg DAILY PO 12/25/16 10:30 01/15/17 10:52 Miscellaneous Information Patient in critical care unit? Ass... Q361D .XX 12/25/16 22:30 12/25/16 22:30 Doxazosin Mesylate (Cardura) 10 mg HS PO 12/26/16 21:00 01/15/17 22:15 Nifedipine (Procardia Xl) 90 mg DAILY PO 12/27/16 09:00 01/15/17 10:52 Miscellaneous (Pill Splitter) 1 ea UNSCH PRN OTHER SEE LABEL COMMENTS 12/26/16 19:00 12/27/16 10:33 Doxazosin Mesylate (Cardura) 4 mg DAILY PO 12/29/16 09:00 01/15/17 10:52 Clonidine 0.1 mg 0.1 mg Q8HR PO 01/03/17 22:00 01/15/17 13:14 Fluconazole/ Sodium Chloride (Diflucan 200 Mg Premix Bag) 100 ml @ 100 mls/hr Q24H IV 01/05/17 11:00 01/15/17 10:52 Morphine Sulfate (Morphine Inj) 2 mg Q3H PRN IV PUSH pain 1-10 01/13/17 05:15 01/16/17 00:52 Lorazepam (Ativan Inj) 1 mg Q4H PRN IV PUSH comfort measure/anxiety 01/13/17 05:15 01/13/17 09:43 A/P Problem List: (1) Weakness ICD Code: R53.1 Assessment & Plan: Remains PT continued Unable to discharge to home unless more functional, which he is unlikely to become He would need a SNF at this point, if he were to discharge (2) Squamous cell lung cancer ICD Code: C34.90 Assessment & Plan: Continued Radiation treatments Oncology following No dyspnea today No hemoptysis (3) Anemia ICD Code: D64.9 Assessment & Plan: Monitor for now stable Follow CBC (4) Acute renal failure ICD Code: N17.9 Assessment & Plan: Slight improvements through time stable CKD Follow renal function (5) Dyspnea ICD Code: R06.00 Assessment & Plan: Chronic with exertion. Follow for any worsening. Supplemental Oxygen. Assessment and Plan Bladder Lesion Flexible cystocope revealed a benign extension of the prostate Problem Qualifiers (1) Squamous cell lung cancer: Qualified Code: C34.92 - Squamous cell lung cancer, left Patrick Taylor MD Jan 16, 2017 8:30 am
[2017-01-16] MEDS: DOXAZOSIN MESYLATE 4 MG TAB PO SCH ×2 (09:01→21:52)
[2017-01-16] MEDS: FLUTICASONE PROPIONATE 50 MCG/ACT 16 GM NASAL SPRAY EACH NARE SCH (09:01)
[2017-01-16] MEDS: NIFEdipine 90 MG SUSTAINED RELEASE TAB PO SCH (09:01)
[2017-01-16] MEDS: PANTOPRAZOLE SOD 40 MG DELAYED RELEASE TAB PO SCH (09:01)
[2017-01-16] MEDS: MEGESTROL ACETATE SUSP 400 MG/10 ML CUP PO SCH (09:01)
[2017-01-16] MEDS: PHENYTOIN SUSP 100 MG/4 ML CUP PO SCH ×2 (09:01→21:53)
[2017-01-16] MEDS: FERROUS SULFATE 300 MG /5ML UDC PO SCH (09:01)
[2017-01-16] MEDS: SODIUM CHLORIDE 0.9% FLUSH 5 ML FLUSH FLUSH SCH ×2 (09:02→21:53)
[2017-01-16] MEDS: FLUCONAZOLE 200 MG PREMIX BAG 100 ML IV SCH (11:11)
--- NOTE | 2017-01-16 19:54 | HHI.PR ---
Subjective Remarks . Afebrile. Tolerates PO had radiation treatment On 3LNc no new complaint Objective Vital Signs Vital Signs Date Time Temp Pulse Resp B/P Pulse Ox O2 Delivery O2 Flow Rate FiO2 01/16/17 16:00 97.9 90 18 93/51 93 96/55 01/16/17 13:20 94 Nasal Cannula 1.00 01/16/17 12:37 97.8 88 18 123/68 96 01/16/17 09:00 Nasal Cannula 1.00 01/16/17 08:28 96.5 94 18 152/76 98 01/16/17 08:05 94 01/16/17 00:00 98.7 94 17 129/64 94 01/15/17 22:30 Room Air 94 01/15/17 20:00 98.7 90 18 106/56 93 I/O 01/15/17 01/15/17 01/15/17 01/16/17 01/16/17 01/16/17 07:00 15:00 23:00 07:00 15:00 23:00 Intake Total 600 ml Output Total 650 ml 700 ml 350 ml 1200 ml 450 ml Balance -650 ml -100 ml -350 ml -1200 ml -450 ml Intake Oral 480 ml IV Total 120 ml Output Urine Total 650 ml 700 ml 350 ml 1200 ml 450 ml Result Diagram: 01/14/1743 01/14/17642 Objective Remarks GENERAL: Patient is lying in bed in NAD SKIN: Warm and dry. HEAD: Normocephalic. EYES: No scleral icterus. No injection or drainage. NECK: Supple, trachea midline. No JVD or lymphadenopathy. CARDIOVASCULAR: Regular rate and rhythm without murmurs, gallops, or rubs. RESPIRATORY: Breath sounds equal bilaterally. No accessory muscle use. GASTROINTESTINAL: Abdomen soft, non-tender, nondistended. MUSCULOSKELETAL: No cyanosis, or edema. BACK: Nontender without obvious deformity. No CVA tenderness. 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 Patient underwent radiation simulation on 12/23/16. XRT will possibly start next week . Heme Onc is following Monitor renal function, avoid nephrotoxins, Renal is following Supplement 02 to keep sat >90% Valeriy Wilkins MD Jan 16, 2017 19:53
[2017-01-16] MEDS: ATORVASTATIN 40 MG TAB PO SCH (21:52)
[2017-01-17] VITALS (8 sets, daily range): BP systolic 108–133; BP diastolic 58–65; PULSE 80–95; RESP 17–20; TEMP 97.4–99.3; O2SAT 93–96
[2017-01-17] MEDS: DOCUSATE SODIUM 100 MG CAP PO SCH ×2 (06:19→17:21)
[2017-01-17] MEDS: cloNIDine HCL 0.1 MG TAB PO SCH ×3 (06:20→21:13)
[2017-01-17 07:14] LABS: HEMATOCRIT 23.2 % (39.0-51.0); MEAN CELL VOLUME 85.8 FL (80.0-100.0); MEAN CORPUSCULAR HEMOGLOBIN 28.4 PG (27.0-34.0); MEAN CORPUSCULAR HGB CONC 33.1 % (32.0-36.0); PLATELET COUNT 383 TH/MM3 (150-450); RED CELL DISTRIBUTION WIDTH 15.7 % (11.6-17.2); REVIEW FLAG FINAL; WHITE BLOOD COUNT 9.3 TH/MM3 (4.0-11.0)
[2017-01-17 07:51] LABS: BICARBONATE 22.5 MEQ/L (21.0-32.0); POTASSIUM 4.4 MEQ/L (3.5-5.1)
[2017-01-17] MEDS: MEGESTROL ACETATE SUSP 400 MG/10 ML CUP PO SCH (08:45)
[2017-01-17] MEDS: PHENYTOIN SUSP 100 MG/4 ML CUP PO SCH ×2 (08:45→21:13)
[2017-01-17] MEDS: FERROUS SULFATE 300 MG /5ML UDC PO SCH (08:45)
[2017-01-17] MEDS: NIFEdipine 90 MG SUSTAINED RELEASE TAB PO SCH (08:46)
[2017-01-17] MEDS: PANTOPRAZOLE SOD 40 MG DELAYED RELEASE TAB PO SCH (08:46)
[2017-01-17] MEDS: DOXAZOSIN MESYLATE 4 MG TAB PO SCH ×2 (08:46→21:12)
[2017-01-17] MEDS: SODIUM CHLORIDE 0.9% FLUSH 5 ML FLUSH FLUSH SCH ×2 (08:53→21:14)
[2017-01-17] MEDS: FLUTICASONE PROPIONATE 50 MCG/ACT 16 GM NASAL SPRAY EACH NARE SCH (08:54)
--- NOTE | 2017-01-17 10:26 | HHI.PR ---
Subjective Remarks no complaints today. No tachycardia or dyspnea overnight. On treatment for nisa UTI. No complaints from the patient. Objective Vital Signs Date Time Temp Pulse Resp B/P Pulse Ox O2 Delivery O2 Flow Rate FiO2 01/17/17 08:45 98.0 93 20 133/65 94 01/17/17 04:00 98.7 95 18 130/63 94 01/17/17 00:00 99.3 87 18 109/64 96 01/16/17 23:12 16 01/16/17 21:50 Nasal Cannula 1.00 94 01/16/17 21:48 93 Nasal Cannula 1.00 01/16/17 20:00 91 01/16/17 20:00 98.6 90 18 104/57 95 01/16/17 16:00 97.9 90 18 93/51 93 96/55 01/16/17 13:20 94 Nasal Cannula 1.00 01/16/17 12:37 97.8 88 18 123/68 96 I/O 01/16/17 01/16/17 01/16/17 01/17/17 01/17/17 01/17/17 07:00 15:00 23:00 07:00 15:00 23:00 Intake Total 711 ml Output Total 1200 ml 450 ml 700 ml Balance -1200 ml -450 ml 11 ml Tube Feeding 511 ml Other 200 ml Output Urine Total 1200 ml 450 ml 700 ml Result Diagram: 01/17/17 0650 01/17/17 0650 Objective Remarks GENERAL: A&Ox3, NAD, Global Weakness SKIN: Warm and dry. HEAD: Normocephalic. EYES: No scleral icterus. No injection or drainage. NECK: Supple, trachea midline. No JVD or lymphadenopathy. CARDIOVASCULAR: Regular rate and rhythm without murmurs, gallops, or rubs. RESPIRATORY: Breath sounds equal bilaterally. No accessory muscle use. GASTROINTESTINAL: Abdomen soft, non-tender, nondistended. MUSCULOSKELETAL: No cyanosis, or edema. BACK: Nontender without obvious deformity. No CVA tenderness. A/P Problem List: (1) Weakness ICD Code: R53.1 Assessment & Plan: Remains PT continued Unable to discharge to home unless more functional, which he is unlikely to become He would need a SNF at this point, if he were to discharge (2) Squamous cell lung cancer ICD Code: C34.90 Assessment & Plan: Continued Radiation treatments Oncology following No dyspnea today No hemoptysis (3) Anemia ICD Code: D64.9 Assessment & Plan: Worsened today May need a transfusion if worsening continues Monitor for now stable Follow CBC (4) Acute renal failure ICD Code: N17.9 Assessment & Plan: Slow but continued improvement stable CKD Follow renal function (5) Dyspnea ICD Code: R06.00 Assessment & Plan: Chronic with exertion. Follow for any worsening. Supplemental Oxygen. (6) Nisa UTI ICD Code: B37.49 Assessment & Plan: Fluconazole Follow clinically Assessment and Plan Bladder Lesion Flexible cystocope revealed a benign extension of the prostate Problem Qualifiers (1) Squamous cell lung cancer: Qualified Code: C34.92 - Squamous cell lung cancer, left Patrick Taylor MD Jan 17, 2017 10:26
[2017-01-17] MEDS: FLUCONAZOLE 200 MG PREMIX BAG 100 ML IV SCH (11:00)
[2017-01-17] MEDS: MORPHINE SULFATE 4 MG/ML INJ IV PUSH PRN (13:24)
[2017-01-17] MEDS: DOCUSATE SODIUM 50 MG/SENNA 8.6 MG TAB PO PRN (17:21)
--- NOTE | 2017-01-17 20:22 | HHI.PR ---
Subjective Remarks . Afebrile. Tolerates PO had radiation treatment On 3LNC No fever Objective Vital Signs Vital Signs Date Time Temp Pulse Resp B/P Pulse Ox O2 Delivery O2 Flow Rate FiO2 01/17/17 16:00 99.0 89 20 108/58 94 01/17/17 14:41 Nasal Cannula 1.00 01/17/17 14:41 89 01/17/17 12:00 97.4 92 20 123/62 96 01/17/17 08:45 98.0 93 20 133/65 94 01/17/17 08:24 94 21 01/17/17 04:00 98.7 95 18 130/63 94 01/17/17 00:00 99.3 87 18 109/64 96 01/16/17 23:12 16 01/16/17 21:50 Nasal Cannula 1.00 94 01/16/17 21:48 93 Nasal Cannula 1.00 I/O 01/16/17 01/16/17 01/16/17 01/17/17 01/17/17 01/17/17 07:00 15:00 23:00 07:00 15:00 23:00 Intake Total 711 ml 640 ml Output Total 1200 ml 450 ml 700 ml Balance -1200 ml -450 ml 11 ml 640 ml Intake Oral 640 ml Tube Feeding 511 ml Other 200 ml Output Urine Total 1200 ml 450 ml 700 ml Result Diagram: 01/17/17 0650 01/17/17 0650 Objective Remarks GENERAL: Patient is lying in bed in NAD SKIN: Warm and dry. HEAD: Normocephalic. EYES: No scleral icterus. No injection or drainage. NECK: Supple, trachea midline. No JVD or lymphadenopathy. CARDIOVASCULAR: Regular rate and rhythm without murmurs, gallops, or rubs. RESPIRATORY: Breath sounds equal bilaterally. No accessory muscle use. GASTROINTESTINAL: Abdomen soft, non-tender, nondistended. MUSCULOSKELETAL: No cyanosis, or edema. BACK: Nontender without obvious deformity. No CVA tenderness. 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 Patient underwent radiation simulation on 12/23/16. XRT will possibly start next week . Heme Onc is following Monitor renal function, , Renal is following Supplement 02 to keep sat >90% Valeriy Wilkins MD Jan 17, 2017 20:22
[2017-01-17] MEDS: ATORVASTATIN 40 MG TAB PO SCH (21:13)
[2017-01-18] VITALS (9 sets, daily range): BP systolic 99–157; BP diastolic 53–70; PULSE 85–100; RESP 17–20; TEMP 97–98.9; O2SAT 94–100
[2017-01-18] MEDS: cloNIDine HCL 0.1 MG TAB PO SCH ×3 (06:26→22:11)
[2017-01-18] MEDS: DOCUSATE SODIUM 100 MG CAP PO SCH ×2 (06:26→17:16)
[2017-01-18 08:06] LABS: HEMATOCRIT 22.5 % (39.0-51.0); MEAN CELL VOLUME 85.2 FL (80.0-100.0); MEAN CORPUSCULAR HGB CONC 32.9 % (32.0-36.0); PLATELET COUNT 381 TH/MM3 (150-450); RED BLOOD COUNT 2.64 MIL/MM3 (4.50-5.90); RED CELL DISTRIBUTION WIDTH 15.4 % (11.6-17.2); REVIEW FLAG FINAL; WHITE BLOOD COUNT 8.6 TH/MM3 (4.0-11.0)
[2017-01-18 08:18] LABS: BICARBONATE 22.8 MEQ/L (21.0-32.0); POTASSIUM 4.2 MEQ/L (3.5-5.1)
[2017-01-18] MEDS: SODIUM CHLORIDE 0.9% FLUSH 5 ML FLUSH FLUSH SCH ×2 (09:00→20:22)
--- NOTE | 2017-01-18 10:30 | HHI.PR ---
Subjective Remarks Decline in Hgb. Improvement in renal function. No complaints today. No tachycardia or dyspnea overnight. On treatment for zabrina UTI. Objective Vital Signs Date Time Temp Pulse Resp B/P Pulse Ox O2 Delivery O2 Flow Rate FiO2 01/18/17 09:42 98.7 85 20 121/65 100 01/18/17 04:00 97.0 97 18 134/65 97 01/18/17 00:00 98.9 100 18 128/66 95 01/17/17 21:15 Nasal Cannula 1.00 21 01/17/17 20:00 98.1 80 17 130/60 93 01/17/17 16:00 99.0 89 20 108/58 94 01/17/17 14:41 Nasal Cannula 1.00 01/17/17 14:41 89 01/17/17 12:00 97.4 92 20 123/62 96 I/O 01/17/17 01/17/17 01/17/17 01/18/17 01/18/17 01/18/17 07:00 15:00 23:00 07:00 15:00 23:00 Intake Total 711 ml 640 ml 480 ml 720 ml Output Total 700 ml 650 ml Balance 11 ml 640 ml -170 ml 720 ml Intake Oral 640 ml 480 ml 720 ml Tube Feeding 511 ml Other 200 ml Output Urine Total 700 ml 650 ml Result Diagram: 01/18/17 0642 01/18/17 0642 Imaging Last Impressions Central Venous Line 01/14/17 1150 Signed Impressions: Service Date/Time: Saturday, January 14, 2017 11:50 - CONCLUSION: Uncomplicated Permcath removal. Beto Perry MD Chest X-Ray 01/14/17 0600 Signed Impressions: Service Date/Time: Saturday, January 14, 2017 05:43 - CONCLUSION: The right lung is grossly clear. No change in the complete opacification of the left hemithorax. Tono Vazquez MD Lower Extremity Ultrasound 01/06/17 0000 Signed Impressions: Service Date/Time: Friday, January 06, 2017 09:02 - CONCLUSION: Normal examination. Shawn Reyes MD Upper Extremity Ultrasound 12/11/16 1506 Signed Impressions: Service Date/Time: Sunday, December 11, 2016 18:00 - CONCLUSION: Superficial thrombophlebitis, extensive edema and nonspecific fluid collections in the subcutaneous tissues. Shawn Reyes MD Head CT 12/11/16 0000 Signed Impressions: Service Date/Time: Sunday, December 11, 2016 20:00 - CONCLUSION: Slight atrophic and small vessel ischemic changes without any evidence for acute hemorrhage or mass effect. Shawn Reyes MD Renal Ultrasound 12/09/16 0000 Signed Impressions: Service Date/Time: Friday, December 09, 2016 15:16 - CONCLUSION: 1. 8.4 cm mass lesion at the base of the bladder. This may represent an intrinsic mass of the bladder versus a prominent anterior lobe of the prostate. 2. Otherwise, urinary bladder is partially decompressed with a Lipscomb catheter. 3. Both kidneys are sonographically normal. Roby Horta MD Objective Remarks GENERAL: A&Ox3, NAD, Global Weakness SKIN: Warm and dry. HEAD: Normocephalic. EYES: No scleral icterus. No injection or drainage. NECK: Supple, trachea midline. No JVD or lymphadenopathy. CARDIOVASCULAR: Regular rate and rhythm without murmurs, gallops, or rubs. RESPIRATORY: Breath sounds equal bilaterally. No accessory muscle use. GASTROINTESTINAL: Abdomen soft, non-tender, nondistended. MUSCULOSKELETAL: No cyanosis, or edema. BACK: Nontender without obvious deformity. No CVA tenderness. Medications and IVs Administered Medications Medications (Trade) Dose Ordered Sig/Luis Carlos Route PRN Reason Start Time Stop Time Status Last Admin Dose Admin IV Flush (NS Flush) 2 ml BID FLUSH 12/05/16 21:00 01/17/17 21:14 Docusate Sodium (Colace) 100 mg Q12H PO 12/05/16 18:00 01/18/17 06:26 Ferrous Sulfate (Ferrous Sulfate Liq) 300 mg DAILY PO 12/06/16 09:00 01/17/17 08:45 Atorvastatin Calcium (Lipitor) 40 mg HS PO 12/05/16 21:00 01/17/17 21:13 Furosemide (Lasix Liq) 40 mg DAILY TUBE 12/06/16 09:00 Hold 12/20/16 08:50 Senna/Docusate Sodium 2 tab 2 tab BID PRN PO CONSTIPATION 12/05/16 19:45 01/17/17 17:21 Sodium Chloride (NS 1000 ml Inj) 1,000 ml @ 0 mls/hr Q0M PRN IV For Prime & Rinse Back 12/06/16 12:11 12/12/16 09:33 Heparin Sodium (Porcine) (Heparin Inj) UNSCH PRN .XX WITH DIALYSIS 12/06/16 12:15 12/14/16 16:39 Gentamicin Sulfate (Gentamicin (Dialysis) Inj) 20 mg UNSCH PRN IV WITH DIALYSIS 12/06/16 12:15 12/14/16 16:39 Acetaminophen (Tylenol) 650 mg UNSCH PRN PO for headach, pain, temp > 101F 12/06/16 12:15 12/14/16 07:54 Clonidine (Catapres) 0.1 mg UNSCH PRN PO SYS BP GREATER THAN 160 MMHG 12/06/16 12:15 12/19/16 06:27 Epoetin Blanco (Epogen Inj) 10,000 units UNSCH PRN IV WITH DIALYSIS 12/06/16 12:15 12/14/16 16:39 Megestrol Acetate (Megace Liq) 400 mg DAILY PO 12/08/16 09:00 01/17/17 08:45 Heparin Sodium (Porcine) (Heparin Inj) 5,000 units Q12HR SQ 12/08/16 21:00 Hold 01/13/17 09:37 Phenytoin (Dilantin Liq) 300 mg Q12HR PO 12/08/16 21:00 01/17/17 21:13 Fluticasone Propionate 2 spray 2 spray DAILY EACH NARE 12/18/16 12:00 01/17/17 08:54 Sodium Chloride (1/2 NS 1000 ml Inj) 1,000 ml @ 65 mls/hr [id number] IV 12/20/16 10:00 Hold 12/24/16 21:10 Pantoprazole Sodium (Protonix) 40 mg DAILY PO 12/25/16 10:30 01/17/17 08:46 Miscellaneous Information Patient in critical care unit? Ass... Q361D .XX 12/25/16 22:30 12/25/16 22:30 Doxazosin Mesylate (Cardura) 10 mg HS PO 12/26/16 21:00 01/17/17 21:12 Nifedipine (Procardia Xl) 90 mg DAILY PO 12/27/16 09:00 01/17/17 08:46 Miscellaneous (Pill Splitter) 1 ea UNSCH PRN OTHER SEE LABEL COMMENTS 12/26/16 19:00 12/27/16 10:33 Doxazosin Mesylate (Cardura) 4 mg DAILY PO 12/29/16 09:00 01/17/17 08:46 Clonidine 0.1 mg 0.1 mg Q8HR PO 01/03/17 22:00 01/18/17 06:26 Fluconazole/ Sodium Chloride (Diflucan 200 Mg Premix Bag) 100 ml @ 100 mls/hr Q24H IV 01/05/17 11:00 01/17/17 11:00 Morphine Sulfate (Morphine Inj) 2 mg Q3H PRN IV PUSH pain 1-10 01/13/17 05:15 01/17/17 13:24 Lorazepam (Ativan Inj) 1 mg Q4H PRN IV PUSH comfort measure/anxiety 01/13/17 05:15 01/13/17 09:43 A/P Problem List: (1) Weakness ICD Code: R53.1 Assessment & Plan: Continue PT Unable to discharge to home unless more functional, which he is unlikely to become He would need a SNF at this point, if he were to discharge (2) Squamous cell lung cancer ICD Code: C34.90 Assessment & Plan: Tolerating treatments well Gradual anemia may be related Continued Radiation treatments Oncology following No dyspnea today No hemoptysis (3) Anemia ICD Code: D64.9 Assessment & Plan: Gradual worsening May need a transfusion if worsening continues Monitor for now stable Follow CBC (4) Acute renal failure ICD Code: N17.9 Assessment & Plan: Improving Slow but continued improvement stable CKD Follow renal function (5) Dyspnea ICD Code: R06.00 Assessment & Plan: Chronic with exertion. Follow for any worsening. Supplemental Oxygen. (6) Zabrina UTI ICD Code: B37.49 Assessment & Plan: Fluconazole Follow clinically Assessment and Plan Bladder Lesion Flexible cystocope revealed a benign extension of the prostate Problem Qualifiers (1) Squamous cell lung cancer: Qualified Code: C34.92 - Squamous cell lung cancer, left Patrick Taylor MD Jan 18, 2017 10:30
[2017-01-18] MEDS: MEGESTROL ACETATE SUSP 400 MG/10 ML CUP PO SCH (10:35)
[2017-01-18] MEDS: PHENYTOIN SUSP 100 MG/4 ML CUP PO SCH ×2 (10:35→20:22)
[2017-01-18] MEDS: FERROUS SULFATE 300 MG /5ML UDC PO SCH (10:36)
[2017-01-18] MEDS: DOXAZOSIN MESYLATE 4 MG TAB PO SCH ×2 (10:36→20:22)
[2017-01-18] MEDS: NIFEdipine 90 MG SUSTAINED RELEASE TAB PO SCH (10:36)
[2017-01-18] MEDS: PANTOPRAZOLE SOD 40 MG DELAYED RELEASE TAB PO SCH (10:36)
[2017-01-18] MEDS: FLUCONAZOLE 200 MG PREMIX BAG 100 ML IV SCH (10:36)
[2017-01-18] MEDS: FLUTICASONE PROPIONATE 50 MCG/ACT 16 GM NASAL SPRAY EACH NARE SCH (10:37)
[2017-01-18] MEDS: DOCUSATE SODIUM 50 MG/SENNA 8.6 MG TAB PO PRN (17:16)
--- NOTE | 2017-01-18 18:05 | HHI.PR ---
Subjective Remarks . Afebrile. Tolerates PO, good appetite On 3LNC No fever Objective Vital Signs Vital Signs Date Time Temp Pulse Resp B/P Pulse Ox O2 Delivery O2 Flow Rate FiO2 01/18/17 17:38 94 Nasal Cannula 1.00 01/18/17 16:00 98.3 88 20 104/53 94 01/18/17 13:00 87 20 157/70 95 01/18/17 11:39 97 Nasal Cannula 1.00 01/18/17 09:42 98.7 85 20 121/65 100 01/18/17 08:00 Nasal Cannula 1.00 21 01/18/17 04:00 97.0 97 18 134/65 97 01/18/17 00:00 98.9 100 18 128/66 95 01/17/17 21:15 Nasal Cannula 1.00 21 01/17/17 20:00 98.1 80 17 130/60 93 I/O 01/17/17 01/17/17 01/17/17 01/18/17 01/18/17 01/18/17 07:00 15:00 23:00 07:00 15:00 23:00 Intake Total 711 ml 640 ml 480 ml 720 ml 720 ml Output Total 700 ml 650 ml 1500 ml Balance 11 ml 640 ml -170 ml 720 ml -780 ml Intake Oral 640 ml 480 ml 720 ml 720 ml Tube Feeding 511 ml Other 200 ml Output Urine Total 700 ml 650 ml 1500 ml Result Diagram: 01/18/17 0642 01/18/17 0642 Objective Remarks GENERAL: Patient is lying in bed in NAD SKIN: Warm and dry. HEAD: Normocephalic. EYES: No scleral icterus. No injection or drainage. NECK: Supple, trachea midline. No JVD or lymphadenopathy. CARDIOVASCULAR: Regular rate and rhythm without murmurs, gallops, or rubs. RESPIRATORY: Breath sounds equal bilaterally. No accessory muscle use. GASTROINTESTINAL: Abdomen soft, non-tender, nondistended. MUSCULOSKELETAL: No cyanosis, or edema. BACK: Nontender without obvious deformity. No CVA tenderness. 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 Monitor renal function, , Renal is following Supplement 02 to keep sat >90% Valeriy Wilkins MD Jan 18, 2017 18:05
[2017-01-18] MEDS: ATORVASTATIN 40 MG TAB PO SCH (20:22)
[2017-01-19] VITALS (9 sets, daily range): BP systolic 97–152; BP diastolic 50–73; PULSE 79–97; RESP 16–18; TEMP 97.3–99.8; O2SAT 93–98
[2017-01-19] MEDS: DOCUSATE SODIUM 100 MG CAP PO SCH ×2 (05:40→17:30)
[2017-01-19] MEDS: cloNIDine HCL 0.1 MG TAB PO SCH ×3 (05:40→21:29)
[2017-01-19] MEDS: NIFEdipine 90 MG SUSTAINED RELEASE TAB PO SCH (09:00)
[2017-01-19] MEDS: SODIUM CHLORIDE 0.9% FLUSH 5 ML FLUSH FLUSH SCH ×2 (09:00→20:07)
[2017-01-19] MEDS: FLUCONAZOLE 200 MG PREMIX BAG 100 ML IV SCH (09:57)
[2017-01-19] MEDS: MAGNESIUM HYDROXIDE SUSP 30 ML CUP PO PRN (09:58)
[2017-01-19] MEDS: PANTOPRAZOLE SOD 40 MG DELAYED RELEASE TAB PO SCH (09:58)
[2017-01-19] MEDS: MEGESTROL ACETATE SUSP 400 MG/10 ML CUP PO SCH (09:58)
[2017-01-19] MEDS: LACTULOSE SYRUP 20 GM/30 ML CUP PO PRN (09:58)
[2017-01-19] MEDS: PHENYTOIN SUSP 100 MG/4 ML CUP PO SCH ×2 (09:58→20:06)
[2017-01-19] MEDS: FERROUS SULFATE 300 MG /5ML UDC PO SCH (09:58)
[2017-01-19] MEDS: DOXAZOSIN MESYLATE 4 MG TAB PO SCH ×2 (09:58→20:07)
[2017-01-19] MEDS: FLUTICASONE PROPIONATE 50 MCG/ACT 16 GM NASAL SPRAY EACH NARE SCH (10:01)
--- NOTE | 2017-01-19 10:32 | HHI.PR ---
Subjective Remarks No complaints today. No tachycardia or dyspnea overnight. On treatment for zabrina UTI. Objective Vital Signs Date Time Temp Pulse Resp B/P Pulse Ox O2 Delivery O2 Flow Rate FiO2 01/19/17 07:53 98.9 90 18 147/71 97 01/19/17 04:00 98.4 89 17 139/67 94 01/19/17 00:00 99.8 97 18 140/65 93 01/18/17 22:10 118/60 01/18/17 20:22 Nasal Cannula 1.00 01/18/17 20:00 98.6 87 17 99/56 96 01/18/17 20:00 88 01/18/17 17:38 94 Nasal Cannula 1.00 01/18/17 16:00 98.3 88 20 104/53 94 01/18/17 13:00 87 20 157/70 95 01/18/17 11:39 97 Nasal Cannula 1.00 I/O 01/18/17 01/18/17 01/18/17 01/19/17 01/19/17 01/19/17 07:00 15:00 23:00 07:00 15:00 23:00 Intake Total 720 ml 720 ml 480 ml 720 ml Output Total 1500 ml 1000 ml 600 ml Balance 720 ml -780 ml 480 ml -280 ml -600 ml Intake Oral 720 ml 720 ml 480 ml 720 ml Output Urine Total 1500 ml 1000 ml 600 ml Result Diagram: 01/18/1742 01/18/17 0642 Objective Remarks GENERAL: A&Ox3, NAD, Global Weakness SKIN: Warm and dry. HEAD: Normocephalic. EYES: No scleral icterus. No injection or drainage. NECK: Supple, trachea midline. No JVD or lymphadenopathy. CARDIOVASCULAR: Regular rate and rhythm without murmurs, gallops, or rubs. RESPIRATORY: Breath sounds equal bilaterally. No accessory muscle use. GASTROINTESTINAL: Abdomen soft, non-tender, nondistended. MUSCULOSKELETAL: No cyanosis, or edema. BACK: Nontender without obvious deformity. No CVA tenderness. Medications and IVs Administered Medications Medications (Trade) Dose Ordered Sig/Luis Carlos Route PRN Reason Start Time Stop Time Status Last Admin Dose Admin IV Flush (NS Flush) 2 ml BID FLUSH 12/05/16 21:00 01/19/17 09:00 Docusate Sodium (Colace) 100 mg Q12H PO 12/05/16 18:00 01/19/17 05:40 Ferrous Sulfate (Ferrous Sulfate Liq) 300 mg DAILY PO 12/06/16 09:00 01/19/17 09:58 Atorvastatin Calcium (Lipitor) 40 mg HS PO 12/05/16 21:00 01/18/17 20:22 Furosemide (Lasix Liq) 40 mg DAILY TUBE 12/06/16 09:00 Hold 12/20/16 08:50 Senna/Docusate Sodium (Jacinda-Colace) 2 tab BID PRN PO CONSTIPATION 12/05/16 19:45 01/18/17 17:16 Lactulose (Lactulose Liq) 30 ml TID PRN PO CONSTIPATION 12/05/16 19:45 01/19/17 09:58 Magnesium Hydroxide 30 ml 30 ml Q6H PRN PO CONSTIPATION 12/05/16 19:45 01/19/17 09:58 Sodium Chloride (NS 1000 ml Inj) 1,000 ml @ 0 mls/hr Q0M PRN IV For Prime & Rinse Back 12/06/16 12:11 12/12/16 09:33 Heparin Sodium (Porcine) (Heparin Inj) UNSCH PRN .XX WITH DIALYSIS 12/06/16 12:15 12/14/16 16:39 Gentamicin Sulfate (Gentamicin (Dialysis) Inj) 20 mg UNSCH PRN IV WITH DIALYSIS 12/06/16 12:15 12/14/16 16:39 Acetaminophen (Tylenol) 650 mg UNSCH PRN PO for headach, pain, temp > 101F 12/06/16 12:15 12/14/16 07:54 Clonidine (Catapres) 0.1 mg UNSCH PRN PO SYS BP GREATER THAN 160 MMHG 12/06/16 12:15 12/19/16 06:27 Epoetin Blanco (Epogen Inj) 10,000 units UNSCH PRN IV WITH DIALYSIS 12/06/16 12:15 12/14/16 16:39 Megestrol Acetate (Megace Liq) 400 mg DAILY PO 12/08/16 09:00 01/19/17 09:58 Heparin Sodium (Porcine) (Heparin Inj) 5,000 units Q12HR SQ 12/08/16 21:00 Hold 01/13/17 09:37 Phenytoin (Dilantin Liq) 300 mg Q12HR PO 12/08/16 21:00 01/19/17 09:58 Fluticasone Propionate 2 spray 2 spray DAILY EACH NARE 12/18/16 12:00 01/19/17 10:01 Sodium Chloride (1/2 NS 1000 ml Inj) 1,000 ml @ 65 mls/hr [id number] IV 12/20/16 10:00 Hold 12/24/16 21:10 Pantoprazole Sodium (Protonix) 40 mg DAILY PO 12/25/16 10:30 01/19/17 09:58 Miscellaneous Information Patient in critical care unit? Ass... Q361D .XX 12/25/16 22:30 12/25/16 22:30 Doxazosin Mesylate (Cardura) 10 mg HS PO 12/26/16 21:00 01/17/17 21:12 Nifedipine (Procardia Xl) 90 mg DAILY PO 12/27/16 09:00 01/19/17 09:00 Miscellaneous (Pill Splitter) 1 ea UNSCH PRN OTHER SEE LABEL COMMENTS 12/26/16 19:00 12/27/16 10:33 Doxazosin Mesylate (Cardura) 4 mg DAILY PO 12/29/16 09:00 01/19/17 09:58 Clonidine 0.1 mg 0.1 mg Q8HR PO 01/03/17 22:00 01/19/17 05:40 Fluconazole/ Sodium Chloride (Diflucan 200 Mg Premix Bag) 100 ml @ 100 mls/hr Q24H IV 01/05/17 11:00 01/19/17 09:57 Morphine Sulfate (Morphine Inj) 2 mg Q3H PRN IV PUSH pain 1-10 01/13/17 05:15 01/17/17 13:24 Lorazepam (Ativan Inj) 1 mg Q4H PRN IV PUSH comfort measure/anxiety 01/13/17 05:15 01/13/17 09:43 A/P Problem List: (1) Weakness ICD Code: R53.1 Assessment & Plan: Continue PT, patient is cooperative Unable to discharge to home unless more functional, which he is unlikely to become He would need a SNF at this point, if he were to discharge (2) Squamous cell lung cancer ICD Code: C34.90 Assessment & Plan: Tolerating treatments well Gradual anemia may be related Continued Radiation treatments Oncology following No dyspnea today No hemoptysis (3) Anemia ICD Code: D64.9 Assessment & Plan: Following CBC May need a transfusion if worsening continues Monitor for now (4) Acute renal failure ICD Code: N17.9 Assessment & Plan: Improving slowly Slow but continued improvement stable CKD Follow renal function (5) Dyspnea ICD Code: R06.00 Assessment & Plan: Chronic with exertion. Follow for any worsening. Supplemental Oxygen. (6) Zabrina UTI ICD Code: B37.49 Assessment & Plan: Fluconazole Follow clinically Assessment and Plan Bladder Lesion Flexible cystocope revealed a benign extension of the prostate Problem Qualifiers (1) Squamous cell lung cancer: Qualified Code: C34.92 - Squamous cell lung cancer, left Patrick Taylor MD Jan 19, 2017 10:32
[2017-01-19 12:12] LABS: HEMATOCRIT 25.5 % (39.0-51.0); MEAN CELL VOLUME 86.6 FL (80.0-100.0); MEAN CORPUSCULAR HEMOGLOBIN 27.1 PG (27.0-34.0); MEAN CORPUSCULAR HGB CONC 31.4 % (32.0-36.0); PLATELET COUNT 369 TH/MM3 (150-450); RED BLOOD COUNT 2.95 MIL/MM3 (4.50-5.90); RED CELL DISTRIBUTION WIDTH 15.7 % (11.6-17.2); REVIEW FLAG FINAL
[2017-01-19 12:34] LABS: POTASSIUM 4.6 MEQ/L (3.5-5.1)
--- NOTE | 2017-01-19 17:18 | HHI.PR ---
Subjective Remarks . Afebrile. Tolerates PO, good appetite On 3LNC No fever " I want to walk" Objective Vital Signs Vital Signs Date Time Temp Pulse Resp B/P Pulse Ox O2 Delivery O2 Flow Rate FiO2 01/19/17 17:14 96 21 01/19/17 13:00 98.2 91 18 133/69 96 01/19/17 11:30 Nasal Cannula 1.00 01/19/17 10:15 85 152/73 96 01/19/17 07:53 98.9 90 18 147/71 97 01/19/17 04:00 98.4 89 17 139/67 94 01/19/17 00:00 99.8 97 18 140/65 93 01/18/17 22:10 118/60 01/18/17 20:22 Nasal Cannula 1.00 01/18/17 20:00 98.6 87 17 99/56 96 01/18/17 20:00 88 01/18/17 17:38 94 Nasal Cannula 1.00 I/O 01/18/17 01/18/17 01/18/17 01/19/17 01/19/17 01/19/17 07:00 15:00 23:00 07:00 15:00 23:00 Intake Total 720 ml 720 ml 480 ml 720 ml Output Total 1500 ml 1000 ml 600 ml Balance 720 ml -780 ml 480 ml -280 ml -600 ml Intake Oral 720 ml 720 ml 480 ml 720 ml Output Urine Total 1500 ml 1000 ml 600 ml Result Diagram: 01/19/17 1056 01/19/17 1056 Objective Remarks GENERAL: Patient is lying in bed in NAD SKIN: Warm and dry. HEAD: Normocephalic. EYES: No scleral icterus. No injection or drainage. NECK: Supple, trachea midline. No JVD or lymphadenopathy. CARDIOVASCULAR: Regular rate and rhythm without murmurs, gallops, or rubs. RESPIRATORY: Breath sounds equal bilaterally. No accessory muscle use. GASTROINTESTINAL: Abdomen soft, non-tender, nondistended. MUSCULOSKELETAL: No cyanosis, or edema. BACK: Nontender without obvious deformity. No CVA tenderness. 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 Monitor renal function, , Renal is following Supplement 02 to keep sat >90% Valeriy Wilkins MD Jan 19, 2017 17:18
[2017-01-19] MEDS: ATORVASTATIN 40 MG TAB PO SCH (20:06)
[2017-01-20] VITALS (10 sets, daily range): BP systolic 95–136; BP diastolic 56–79; PULSE 85–93; RESP 16–20; TEMP 98–99.2; O2SAT 94–97
[2017-01-20] MEDS: MORPHINE SULFATE 4 MG/ML INJ IV PUSH PRN ×2 (04:41→08:22)
[2017-01-20] MEDS: DOCUSATE SODIUM 100 MG CAP PO SCH ×2 (05:09→16:04)
[2017-01-20] MEDS: cloNIDine HCL 0.1 MG TAB PO SCH ×3 (05:09→21:35)
[2017-01-20] MEDS: MEGESTROL ACETATE SUSP 400 MG/10 ML CUP PO SCH (07:58)
[2017-01-20] MEDS: FERROUS SULFATE 300 MG /5ML UDC PO SCH (07:58)
[2017-01-20] MEDS: FLUTICASONE PROPIONATE 50 MCG/ACT 16 GM NASAL SPRAY EACH NARE SCH (07:58)
[2017-01-20] MEDS: NIFEdipine 90 MG SUSTAINED RELEASE TAB PO SCH (07:59)
[2017-01-20] MEDS: DOXAZOSIN MESYLATE 4 MG TAB PO SCH ×2 (07:59→21:35)
[2017-01-20] MEDS: PHENYTOIN SUSP 100 MG/4 ML CUP PO SCH ×2 (08:00→21:35)
[2017-01-20] MEDS: PANTOPRAZOLE SOD 40 MG DELAYED RELEASE TAB PO SCH (08:03)
[2017-01-20 08:04] LABS: MEAN CELL VOLUME 84.9 FL (80.0-100.0); MEAN CORPUSCULAR HEMOGLOBIN 28.6 PG (27.0-34.0); MEAN CORPUSCULAR HGB CONC 33.7 % (32.0-36.0); PLATELET COUNT 395 TH/MM3 (150-450); RED BLOOD COUNT 2.59 MIL/MM3 (4.50-5.90); REVIEW FLAG FINAL; WHITE BLOOD COUNT 7.3 TH/MM3 (4.0-11.0)
[2017-01-20 08:26] LABS: BICARBONATE 23.7 MEQ/L (21.0-32.0); POTASSIUM 4.9 MEQ/L (3.5-5.1)
[2017-01-20] MEDS: SODIUM CHLORIDE 0.9% FLUSH 5 ML FLUSH FLUSH SCH ×2 (09:00→21:33)
[2017-01-20] MEDS: FLUCONAZOLE 200 MG PREMIX BAG 100 ML IV SCH (11:15)
--- NOTE | 2017-01-20 11:37 | HHI.PR ---
Subjective Remarks Feels at baseline. No complaints today. No tachycardia or dyspnea overnight. On treatment for nisa UTI. Objective Vital Signs Date Time Temp Pulse Resp B/P Pulse Ox O2 Delivery O2 Flow Rate FiO2 01/20/17 09:25 88 01/20/17 08:23 96 Nasal Cannula 1.00 01/20/17 08:16 98.0 88 20 119/66 97 01/20/17 08:11 Nasal Cannula 1.00 21 01/20/17 04:00 99.2 93 19 136/62 95 01/20/17 00:00 98.8 92 17 134/79 95 01/19/17 20:10 Nasal Cannula 1.00 01/19/17 20:00 89 01/19/17 20:00 99.7 89 18 116/57 95 01/19/17 17:14 96 21 01/19/17 16:00 99.8 84 148/73 98 01/19/17 13:00 98.2 91 18 133/69 96 I/O 01/19/17 01/19/17 01/19/17 01/20/17 01/20/17 01/20/17 07:00 15:00 23:00 07:00 15:00 23:00 Intake Total 720 ml 480 ml 120 ml 480 ml Output Total 1000 ml 950 ml 650 ml 800 ml Balance -280 ml -470 ml -530 ml -320 ml Intake Oral 720 ml 480 ml 120 ml 480 ml Output Urine Total 1000 ml 950 ml 650 ml 800 ml # Bowel Movements 1 0 1 Result Diagram: 01/20/17 0723 01/20/1723 Objective Remarks GENERAL: A&Ox3, NAD, Global Weakness SKIN: Warm and dry. HEAD: Normocephalic. EYES: No scleral icterus. No injection or drainage. NECK: Supple, trachea midline. No JVD or lymphadenopathy. CARDIOVASCULAR: Regular rate and rhythm without murmurs, gallops, or rubs. RESPIRATORY: Breath sounds equal bilaterally. No accessory muscle use. GASTROINTESTINAL: Abdomen soft, non-tender, nondistended. MUSCULOSKELETAL: No cyanosis, or edema. BACK: Nontender without obvious deformity. No CVA tenderness. A/P Problem List: (1) Weakness ICD Code: R53.1 Assessment & Plan: Continue PT, patient is cooperative Unable to discharge to home unless more functional, which he is unlikely to become He would need a SNF at this point, if he were to discharge (2) Squamous cell lung cancer ICD Code: C34.90 Assessment & Plan: Tolerating treatments well Gradual anemia may be related Continued Radiation treatments Oncology following No dyspnea today No hemoptysis (3) Anemia ICD Code: D64.9 Assessment & Plan: Downward trend Following CBC May need a transfusion if worsening continues Monitor for now (4) Acute renal failure ICD Code: N17.9 Assessment & Plan: Shows stability now Slow but continued improvement stable CKD Follow renal function (5) Dyspnea ICD Code: R06.00 Assessment & Plan: Chronic with exertion. Follow for any worsening. Supplemental Oxygen. (6) Nisa UTI ICD Code: B37.49 Assessment & Plan: Fluconazole Follow clinically Assessment and Plan Bladder Lesion Flexible cystocope revealed a benign extension of the prostate Problem Qualifiers (1) Squamous cell lung cancer: Qualified Code: C34.92 - Squamous cell lung cancer, left Patrick Taylor MD January 20, 2017 11:36
--- NOTE | 2017-01-20 16:49 | HHI.PR ---
Subjective Remarks . Afebrile. Tolerates PO, good appetite On 3LNC No fever Had radiation today Objective Vital Signs Vital Signs Date Time Temp Pulse Resp B/P Pulse Ox O2 Delivery O2 Flow Rate FiO2 01/20/17 12:00 98.7 87 20 116/57 94 01/20/17 09:25 88 01/20/17 08:23 96 Nasal Cannula 1.00 01/20/17 08:16 98.0 88 20 119/66 97 01/20/17 08:11 Nasal Cannula 1.00 21 01/20/17 04:00 99.2 93 19 136/62 95 01/20/17 00:00 98.8 92 17 134/79 95 01/19/17 20:10 Nasal Cannula 1.00 01/19/17 20:00 89 01/19/17 20:00 99.7 89 18 116/57 95 01/19/17 17:14 96 21 I/O 01/19/17 01/19/17 01/19/17 01/20/17 01/20/17 01/20/17 07:00 15:00 23:00 07:00 15:00 23:00 Intake Total 720 ml 480 ml 120 ml 480 ml Output Total 1000 ml 950 ml 650 ml 800 ml Balance -280 ml -470 ml -530 ml -320 ml Intake Oral 720 ml 480 ml 120 ml 480 ml Output Urine Total 1000 ml 950 ml 650 ml 800 ml # Bowel Movements 1 0 1 Result Diagram: 01/20/1772201/20/17722 Objective Remarks GENERAL: Patient is lying in bed in NAD SKIN: Warm and dry. HEAD: Normocephalic. EYES: No scleral icterus. No injection or drainage. NECK: Supple, trachea midline. No JVD or lymphadenopathy. CARDIOVASCULAR: Regular rate and rhythm without murmurs, gallops, or rubs. RESPIRATORY: Breath sounds equal bilaterally. No accessory muscle use. GASTROINTESTINAL: Abdomen soft, non-tender, nondistended. MUSCULOSKELETAL: No cyanosis, or edema. BACK: Nontender without obvious deformity. No CVA tenderness. 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 Monitor renal function, , Renal is following Supplement 02 to keep sat >90% Valeriy Wilkins MD January 20, 2017 16:49
[2017-01-20] MEDS: ATORVASTATIN 40 MG TAB PO SCH (21:35)
[2017-01-21] VITALS (8 sets, daily range): BP systolic 100–138; BP diastolic 53–72; PULSE 89–99; RESP 18–20; TEMP 97–99.8; O2SAT 94–100
[2017-01-21] MEDS: cloNIDine HCL 0.1 MG TAB PO SCH ×3 (05:47→20:57)
[2017-01-21] MEDS: DOCUSATE SODIUM 100 MG CAP PO SCH ×2 (05:47→14:00)
[2017-01-21 08:24] LABS: HEMATOCRIT 21.6 % (39.0-51.0); MEAN CELL VOLUME 87.1 FL (80.0-100.0); MEAN CORPUSCULAR HEMOGLOBIN 28.6 PG (27.0-34.0); MEAN CORPUSCULAR HGB CONC 32.9 % (32.0-36.0); PLATELET COUNT 371 TH/MM3 (150-450); RED BLOOD COUNT 2.48 MIL/MM3 (4.50-5.90); REVIEW FLAG FINAL; WHITE BLOOD COUNT 6.6 TH/MM3 (4.0-11.0)
[2017-01-21 08:50] LABS: BICARBONATE 22.2 MEQ/L (21.0-32.0); POTASSIUM 4.7 MEQ/L (3.5-5.1)
[2017-01-21] MEDS: SODIUM CHLORIDE 0.9% FLUSH 5 ML FLUSH FLUSH SCH ×2 (09:00→19:55)
[2017-01-21] MEDS: MORPHINE SULFATE 4 MG/ML INJ IV PUSH PRN (09:08)
[2017-01-21] MEDS: PHENYTOIN SUSP 100 MG/4 ML CUP PO SCH ×2 (11:08→19:54)
[2017-01-21] MEDS: DOCUSATE SODIUM 50 MG/SENNA 8.6 MG TAB PO PRN (11:08)
[2017-01-21] MEDS: NIFEdipine 90 MG SUSTAINED RELEASE TAB PO SCH (11:08)
[2017-01-21] MEDS: FERROUS SULFATE 300 MG /5ML UDC PO SCH (11:08)
[2017-01-21] MEDS: DOXAZOSIN MESYLATE 4 MG TAB PO SCH ×2 (11:08→19:54)
[2017-01-21] MEDS: MEGESTROL ACETATE SUSP 400 MG/10 ML CUP PO SCH (11:08)
[2017-01-21] MEDS: PANTOPRAZOLE SOD 40 MG DELAYED RELEASE TAB PO SCH (11:08)
[2017-01-21] MEDS: FLUCONAZOLE 200 MG PREMIX BAG 100 ML IV SCH (11:10)
[2017-01-21] MEDS: FLUTICASONE PROPIONATE 50 MCG/ACT 16 GM NASAL SPRAY EACH NARE SCH (11:11)
--- NOTE | 2017-01-21 19:09 | HHI.PR ---
Subjective Remarks Right sided chest pain present with food/swallowing. Etiology may be esophogeal inflammation related to radiation. Controlled with pain medications. No new complaints. Objective Vital Signs Date Time Temp Pulse Resp B/P Pulse Ox O2 Delivery O2 Flow Rate FiO2 01/21/17 16:00 97.2 92 18 100/56 94 01/21/17 12:00 97.0 91 18 138/72 100 01/21/17 10:10 95 Nasal Cannula 1.50 01/21/17 08:00 99 01/21/17 08:00 Room Air 1.00 21 01/21/17 08:00 99.8 97 20 124/68 97 01/21/17 04:00 99.2 99 18 108/61 97 01/21/17 00:00 98.9 92 18 128/64 97 01/20/17 21:35 Room Air 01/20/17 21:22 97 Nasal Cannula 2.00 01/20/17 20:12 85 01/20/17 20:00 98.0 86 16 113/56 97 I/O 01/20/17 01/20/17 01/20/17 01/21/17 01/21/17 01/21/17 07:00 15:00 23:00 07:00 15:00 23:00 Intake Total 480 ml 480 ml 720 ml 240 ml Output Total 800 ml 1000 ml 1000 ml 600 ml Balance -320 ml -1000 ml 480 ml -280 ml -360 ml Intake Oral 480 ml 480 ml 720 ml 240 ml Output Urine Total 800 ml 1000 ml 1000 ml 600 ml # Bowel Movements 1 Result Diagram: 01/21/17 0731 01/21/17 0731 Objective Remarks GENERAL: A&Ox3, NAD, Global Weakness SKIN: Warm and dry. HEAD: Normocephalic. EYES: No scleral icterus. No injection or drainage. NECK: Supple, trachea midline. No JVD or lymphadenopathy. CARDIOVASCULAR: Regular rate and rhythm without murmurs, gallops, or rubs. RESPIRATORY: Breath sounds equal bilaterally. No accessory muscle use. GASTROINTESTINAL: Abdomen soft, non-tender, nondistended. MUSCULOSKELETAL: No cyanosis, or edema. BACK: Nontender without obvious deformity. No CVA tenderness. A/P Problem List: (1) Weakness ICD Code: R53.1 Assessment & Plan: Remains Continue PT, patient is cooperative Unable to discharge to home unless more functional, which he is unlikely to become He would need a SNF at this point, if he were to discharge (2) Squamous cell lung cancer ICD Code: C34.90 Assessment & Plan: Gradual anemia may be related Continued Radiation treatments Oncology following No dyspnea today No hemoptysis (3) Anemia ICD Code: D64.9 Assessment & Plan: Following CBC May need a transfusion if worsening continues Monitor for now (4) Acute renal failure ICD Code: N17.9 Assessment & Plan: Slow but continued improvement stable CKD Follow renal function (5) Dyspnea ICD Code: R06.00 Assessment & Plan: Chronic with exertion. Follow for any worsening. Supplemental Oxygen. (6) Nisa UTI ICD Code: B37.49 Assessment & Plan: Fluconazole Follow clinically Assessment and Plan Bladder Lesion Flexible cystocope revealed a benign extension of the prostate Problem Qualifiers (1) Squamous cell lung cancer: Qualified Code: C34.92 - Squamous cell lung cancer, left Patrick Taylor MD January 21, 2017 19:09
--- NOTE | 2017-01-21 19:21 | HHI.PR ---
Subjective Remarks . Afebrile. Tolerates PO, good appetite On 3LNC No fever Had radiation today Feels full had heart burn, betetr now Objective Vital Signs Vital Signs Date Time Temp Pulse Resp B/P Pulse Ox O2 Delivery O2 Flow Rate FiO2 01/21/17 16:00 97.2 92 18 100/56 94 01/21/17 12:00 97.0 91 18 138/72 100 01/21/17 10:10 95 Nasal Cannula 1.50 01/21/17 08:00 99 01/21/17 08:00 Room Air 1.00 21 01/21/17 08:00 99.8 97 20 124/68 97 01/21/17 04:00 99.2 99 18 108/61 97 01/21/17 00:00 98.9 92 18 128/64 97 01/20/17 21:35 Room Air 01/20/17 21:22 97 Nasal Cannula 2.00 01/20/17 20:12 85 01/20/17 20:00 98.0 86 16 113/56 97 I/O 01/20/17 01/20/17 01/20/17 01/21/17 01/21/17 01/21/17 07:00 15:00 23:00 07:00 15:00 23:00 Intake Total 480 ml 480 ml 720 ml 240 ml Output Total 800 ml 1000 ml 1000 ml 600 ml Balance -320 ml -1000 ml 480 ml -280 ml -360 ml Intake Oral 480 ml 480 ml 720 ml 240 ml Output Urine Total 800 ml 1000 ml 1000 ml 600 ml # Bowel Movements 1 Result Diagram: 01/21/17 0731 01/21/17 0731 Objective Remarks GENERAL: Patient is lying in bed in NAD SKIN: Warm and dry. HEAD: Normocephalic. EYES: No scleral icterus. No injection or drainage. NECK: Supple, trachea midline. No JVD or lymphadenopathy. CARDIOVASCULAR: Regular rate and rhythm without murmurs, gallops, or rubs. RESPIRATORY: Breath sounds equal bilaterally. No accessory muscle use. GASTROINTESTINAL: Abdomen soft, non-tender, nondistended. MUSCULOSKELETAL: No cyanosis, or edema. BACK: Nontender without obvious deformity. No CVA tenderness. 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 Monitor renal function, , Renal is following Supplement 02 to keep sat >90% Encourage PO intake. Valeriy Wilkins MD January 21, 2017 19:21
[2017-01-21] MEDS: ATORVASTATIN 40 MG TAB PO SCH (19:54)
[2017-01-22] VITALS (9 sets, daily range): BP systolic 99–142; BP diastolic 53–74; PULSE 87–103; RESP 16–24; TEMP 96.8–98.9; O2SAT 93–98
[2017-01-22] MEDS: cloNIDine HCL 0.1 MG TAB PO SCH ×3 (05:19→20:40)
[2017-01-22] MEDS: DOCUSATE SODIUM 100 MG CAP PO SCH ×2 (05:19→18:02)
[2017-01-22 06:55] LABS: HEMATOCRIT 22.8 % (39.0-51.0); MEAN CELL VOLUME 87.4 FL (80.0-100.0); MEAN CORPUSCULAR HEMOGLOBIN 28.9 PG (27.0-34.0); PLATELET COUNT 397 TH/MM3 (150-450); RED BLOOD COUNT 2.61 MIL/MM3 (4.50-5.90); RED CELL DISTRIBUTION WIDTH 15.9 % (11.6-17.2); REVIEW FLAG FINAL; WHITE BLOOD COUNT 6.6 TH/MM3 (4.0-11.0)
[2017-01-22 07:40] LABS: BICARBONATE 23.7 MEQ/L (21.0-32.0); POTASSIUM 4.5 MEQ/L (3.5-5.1)
[2017-01-22] MEDS: SODIUM CHLORIDE 0.9% FLUSH 5 ML FLUSH FLUSH SCH ×2 (09:00→20:40)
--- NOTE | 2017-01-22 09:05 | HHI.PR ---
Subjective Remarks No episodes of dyspnea overnight. Resting comfortably. Tolerating radiation therapy. Objective Vital Signs Date Time Temp Pulse Resp B/P Pulse Ox O2 Delivery O2 Flow Rate FiO2 01/22/17 04:23 97.7 92 16 119/61 98 01/22/17 00:04 98.9 100 18 115/61 96 01/21/17 21:14 97.7 89 18 103/53 94 01/21/17 20:50 Nasal Cannula 1.00 01/21/17 20:00 Nasal Cannula 2.00 01/21/17 20:00 91 01/21/17 16:00 97.2 92 18 100/56 94 01/21/17 12:00 97.0 91 18 138/72 100 01/21/17 10:10 95 Nasal Cannula 1.50 I/O 01/21/17 01/21/17 01/21/17 01/22/17 01/22/17 01/22/17 07:00 15:00 23:00 07:00 15:00 23:00 Intake Total 720 ml 240 ml 360 ml 150 ml 625 ml Output Total 1000 ml 600 ml 300 ml 450 ml Balance -280 ml -360 ml 60 ml -300 ml 625 ml Intake Oral 720 ml 240 ml 360 ml 150 ml Tube Feeding 625 ml Output Urine Total 1000 ml 600 ml 300 ml 450 ml # Bowel Movements 0 0 Result Diagram: 01/22/1762601/22/17626 Objective Remarks GENERAL: A&Ox3, NAD, Global Weakness SKIN: Warm and dry. HEAD: Normocephalic. EYES: No scleral icterus. No injection or drainage. NECK: Supple, trachea midline. No JVD or lymphadenopathy. CARDIOVASCULAR: Regular rate and rhythm without murmurs, gallops, or rubs. RESPIRATORY: Breath sounds equal bilaterally. No accessory muscle use. GASTROINTESTINAL: Abdomen soft, non-tender, nondistended. MUSCULOSKELETAL: No cyanosis, or edema. BACK: Nontender without obvious deformity. No CVA tenderness. Medications and IVs Administered Medications Medications (Trade) Dose Ordered Sig/Luis Carlos Route PRN Reason Start Time Stop Time Status Last Admin Dose Admin IV Flush (NS Flush) 2 ml BID FLUSH 12/05/16 21:00 01/21/17 19:55 Docusate Sodium (Colace) 100 mg Q12H PO 12/05/16 18:00 01/22/17 05:19 Ferrous Sulfate (Ferrous Sulfate Liq) 300 mg DAILY PO 12/06/16 09:00 01/21/17 11:08 Atorvastatin Calcium (Lipitor) 40 mg HS PO 12/05/16 21:00 01/21/17 19:54 Furosemide (Lasix Liq) 40 mg DAILY TUBE 12/06/16 09:00 Hold 12/20/16 08:50 Senna/Docusate Sodium (Jacinda-Colace) 2 tab BID PRN PO CONSTIPATION 12/05/16 19:45 01/21/17 11:08 Lactulose (Lactulose Liq) 30 ml TID PRN PO CONSTIPATION 12/05/16 19:45 01/19/17 09:58 Magnesium Hydroxide 30 ml 30 ml Q6H PRN PO CONSTIPATION 12/05/16 19:45 01/19/17 09:58 Sodium Chloride (NS 1000 ml Inj) 1,000 ml @ 0 mls/hr Q0M PRN IV For Prime & Rinse Back 12/06/16 12:11 12/12/16 09:33 Heparin Sodium (Porcine) (Heparin Inj) UNSCH PRN .XX WITH DIALYSIS 12/06/16 12:15 12/14/16 16:39 Gentamicin Sulfate (Gentamicin (Dialysis) Inj) 20 mg UNSCH PRN IV WITH DIALYSIS 12/06/16 12:15 12/14/16 16:39 Acetaminophen (Tylenol) 650 mg UNSCH PRN PO for headach, pain, temp > 101F 12/06/16 12:15 12/14/16 07:54 Clonidine (Catapres) 0.1 mg UNSCH PRN PO SYS BP GREATER THAN 160 MMHG 12/06/16 12:15 12/19/16 06:27 Epoetin Blanco (Epogen Inj) 10,000 units UNSCH PRN IV WITH DIALYSIS 12/06/16 12:15 12/14/16 16:39 Megestrol Acetate (Megace Liq) 400 mg DAILY PO 12/08/16 09:00 01/21/17 11:08 Heparin Sodium (Porcine) (Heparin Inj) 5,000 units Q12HR SQ 12/08/16 21:00 Hold 01/13/17 09:37 Phenytoin (Dilantin Liq) 300 mg Q12HR PO 12/08/16 21:00 01/21/17 19:54 Fluticasone Propionate 2 spray 2 spray DAILY EACH NARE 12/18/16 12:00 01/21/17 11:11 Sodium Chloride (1/2 NS 1000 ml Inj) 1,000 ml @ 65 mls/hr [id number] IV 12/20/16 10:00 Hold 12/24/16 21:10 Pantoprazole Sodium (Protonix) 40 mg DAILY PO 12/25/16 10:30 01/21/17 11:08 Miscellaneous Information Patient in critical care unit? Ass... Q361D .XX 12/25/16 22:30 12/25/16 22:30 Doxazosin Mesylate (Cardura) 10 mg HS PO 12/26/16 21:00 01/21/17 19:54 Nifedipine (Procardia Xl) 90 mg DAILY PO 12/27/16 09:00 01/21/17 11:08 Miscellaneous (Pill Splitter) 1 ea UNSCH PRN OTHER SEE LABEL COMMENTS 12/26/16 19:00 12/27/16 10:33 Doxazosin Mesylate (Cardura) 4 mg DAILY PO 12/29/16 09:00 01/21/17 11:08 Clonidine 0.1 mg 0.1 mg Q8HR PO 01/03/17 22:00 01/22/17 05:19 Fluconazole/ Sodium Chloride (Diflucan 200 Mg Premix Bag) 100 ml @ 100 mls/hr Q24H IV 01/05/17 11:00 01/21/17 11:10 Morphine Sulfate (Morphine Inj) 2 mg Q3H PRN IV PUSH pain 1-10 01/13/17 05:15 01/21/17 09:08 Lorazepam (Ativan Inj) 1 mg Q4H PRN IV PUSH comfort measure/anxiety 01/13/17 05:15 01/13/17 09:43 A/P Problem List: (1) Weakness ICD Code: R53.1 Assessment & Plan: Unchanged Continue PT, patient is cooperative Unable to discharge to home unless more functional, which he is unlikely to become He would need a SNF at this point, if he were to discharge (2) Squamous cell lung cancer ICD Code: C34.90 Assessment & Plan: Tolerating radiation Gradual anemia may be related Continued Radiation treatments Oncology following No dyspnea today No hemoptysis (3) Anemia ICD Code: D64.9 Assessment & Plan: Improved Following CBC May need a transfusion if worsening continues Monitor for now (4) Acute renal failure ICD Code: N17.9 Assessment & Plan: Slow but continued improvement stable CKD Follow renal function (5) Dyspnea ICD Code: R06.00 Assessment & Plan: Chronic with exertion. Follow for any worsening. Supplemental Oxygen. (6) Nisa UTI ICD Code: B37.49 Assessment & Plan: Fluconazole Follow clinically Assessment and Plan Bladder Lesion Flexible cystocope revealed a benign extension of the prostate Problem Qualifiers (1) Squamous cell lung cancer: Qualified Code: C34.92 - Squamous cell lung cancer, left Ptarick Taylor MD January 22, 2017 09:05
[2017-01-22] MEDS: PANTOPRAZOLE SOD 40 MG DELAYED RELEASE TAB PO SCH (10:18)
[2017-01-22] MEDS: FLUCONAZOLE 200 MG PREMIX BAG 100 ML IV SCH (10:18)
[2017-01-22] MEDS: PHENYTOIN SUSP 100 MG/4 ML CUP PO SCH ×2 (10:19→20:40)
[2017-01-22] MEDS: DOXAZOSIN MESYLATE 4 MG TAB PO SCH ×2 (10:19→20:40)
[2017-01-22] MEDS: NIFEdipine 90 MG SUSTAINED RELEASE TAB PO SCH (10:19)
[2017-01-22] MEDS: FERROUS SULFATE 300 MG /5ML UDC PO SCH (10:19)
[2017-01-22] MEDS: MEGESTROL ACETATE SUSP 400 MG/10 ML CUP PO SCH (10:19)
[2017-01-22] MEDS: FLUTICASONE PROPIONATE 50 MCG/ACT 16 GM NASAL SPRAY EACH NARE SCH (10:20)
[2017-01-22] MEDS: MORPHINE SULFATE 4 MG/ML INJ IV PUSH PRN (10:36)
--- NOTE | 2017-01-22 14:23 | HHI.HCPN ---
Reason for visit a. To assist with evaluation and management of symptoms including: dyspnea, weakness, malnutrition b. To assist medical decision maker(s) with: better understanding of current medical conditions; weighing benefits/burdens of medical treatment options; making medical treatment decisions. Subjective/Interval History Pt seen to follow up on dyspnea , goals. Has remained in regular room. stable, continuing XRT, today completed 9 of 35 treatments (of note some prior progress records indicate 25 total tx, though now indicating 35 total tx). Uro completed cysto, findings of enlarged prostate. + zabrina UTI, still on diflucan IV tx. Pt seen in room, initially sleeping .Arouses easily. Oriented, approp. Tells me cysto with findings of prostate enlargement. Wishes to continue XRT, endorses it does tire him. Fair appetite. No pain. No dyspnea. Has been in touch with his son Elpidio via phone. Goals continue to be aggressive. Does wish to work with PT, really wants to be able to walk again. Following exam, call to SALOMÓN Hidalgo to provide update(Elpidio ) VM left . . Advance Directives Living Will: Completed, but not made available Health Care Surrogate: Copy in medical record Advance Directive Specifics Date completed: 12/17/16 Health Care Surrogate(s): Names son Elpidio Jaime as HCS Objective Vital Signs Date Time Temp Pulse Resp B/P Pulse Ox O2 Delivery O2 Flow Rate FiO2 01/22/17 12:00 97.6 90 24 142/74 98 01/22/17 10:41 98 Nasal Cannula 2.00 01/22/17 08:00 96.8 103 24 108/53 97 01/22/17 04:23 97.7 92 16 119/61 98 01/22/17 00:04 98.9 100 18 115/61 96 01/21/17 21:14 97.7 89 18 103/53 94 01/21/17 20:50 Nasal Cannula 1.00 01/21/17 20:00 Nasal Cannula 2.00 01/21/17 20:00 91 01/21/17 16:00 97.2 92 18 100/56 94 Intake & Output 01/22/17 01/22/17 07:00 19:00 Intake Total 510 ml 723 ml Output Total 750 ml Balance -240 ml 723 ml Intake Oral 510 ml IV Total 98 ml Tube Feeding 625 ml Output Urine Total 750 ml # Bowel Movements 0 Physical Exam CONSTITUTIONAL/GENERAL: This is a chronically ill appearing pt, no distress, alert, pleasant TUBES/LINES/DRAINS:Juliana RICE RA. +PEG tube CARDIOVASCULAR: Regular rate and rhythm, no murmurs. Peripheral pulses symmetric. RESPIRATORY/CHEST: Symmetric, unlabored respirations. + 2L NC. Clear to right, significantly decreased air movement to the left. GASTROINTESTINAL: Abdomen soft, non-tender, nondistended. No palpable masses. No guarding. Bowel sounds present.PEG tube clamped ,dressing clean/dry NEUROLOGICAL: Alert, orientedx3 . Pleasant and cooperative. Reasonable insight into hospitalization and conditions. Follows commands. Moves all 4 extremities with significant weakness PSYCHIATRIC: No obvious anxiety/depression. . Diagnostic Tests Laboratory Laboratory Tests Test 01/20/17 01/21/17 01/22/17 07:23 07:31 06:27 White Blood Count 7.3 TH/MM3 6.6 TH/MM3 6.6 TH/MM3 (4.0-11.0) (4.0-11.0) (4.0-11.0) Red Blood Count 2.59 MIL/MM3 2.48 MIL/MM3 2.61 MIL/MM3 (4.50-5.90) (4.50-5.90) (4.50-5.90) Hemoglobin 7.4 GM/DL 7.1 GM/DL 7.5 GM/DL (13.0-17.0) (13.0-17.0) (13.0-17.0) Hematocrit 22.0 % 21.6 % 22.8 % (39.0-51.0) (39.0-51.0) (39.0-51.0) Mean Corpuscular Volume 84.9 FL 87.1 FL 87.4 FL (80.0-100.0) (80.0-100.0) (80.0-100.0) Mean Corpuscular Hemoglobin 28.6 PG 28.6 PG 28.9 PG (27.0-34.0) (27.0-34.0) (27.0-34.0) Mean Corpuscular Hemoglobin 33.7 % 32.9 % 33.0 % Concent (32.0-36.0) (32.0-36.0) (32.0-36.0) Red Cell Distribution Width 16.0 % 16.0 % 15.9 % (11.6-17.2) (11.6-17.2) (11.6-17.2) Platelet Count 395 TH/MM3 371 TH/MM3 397 TH/MM3 (150-450) (150-450) (150-450) Mean Platelet Volume 6.9 FL 6.7 FL 6.7 FL (7.0-11.0) (7.0-11.0) (7.0-11.0) Sodium Level 137 MEQ/L 137 MEQ/L 137 MEQ/L (136-145) (136-145) (136-145) Potassium Level 4.9 MEQ/L 4.7 MEQ/L 4.5 MEQ/L (3.5-5.1) (3.5-5.1) (3.5-5.1) Chloride Level 105 MEQ/L 105 MEQ/L 106 MEQ/L (98-107) (98-107) (98-107) Carbon Dioxide Level 23.7 MEQ/L 22.2 MEQ/L 23.7 MEQ/L (21.0-32.0) (21.0-32.0) (21.0-32.0) Anion Gap 8 MEQ/L (5-15) 10 MEQ/L (5-15) 7 MEQ/L (5-15) Blood Urea Nitrogen 79 MG/DL (7-18) 83 MG/DL (7-18) 84 MG/DL (7-18) Creatinine 1.90 MG/DL 2.02 MG/DL 1.91 MG/DL (0.60-1.30) (0.60-1.30) (0.60-1.30) Estimat Glomerular Filtration 35 ML/MIN (>89) 33 ML/MIN (>89) 35 ML/MIN (>89) Rate Random Glucose 133 MG/DL 128 MG/DL 143 MG/DL (74-106) (74-106) (74-106) Calcium Level 8.6 MG/DL 8.5 MG/DL 8.6 MG/DL (8.5-10.1) (8.5-10.1) (8.5-10.1) Result Diagram: 01/22/1762601/22/17626 Assessment and Plan Disease Oriented Problem List: (1) Mass of left lung Comment: +SCC (2) Acute renal failure (3) Squamous cell lung cancer (4) Bladder mass (5) Anemia (6) UTI (urinary tract infection) Comment: awaiting BX/resection when stable (7) Severe muscle deconditioning (8) Acute respiratory failure Comment: resolved Symptom Scale: (1) Malnutrition (2) Dyspnea (3) Weakness Pertinent Non-Medical Issues Psychosocial:. 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 Lives at home alone. Supported by 4 sons, 2 in [place], 2 in [place] Spiritual: Legal:pt appears able to participate in decision making. Reports his son Elpidio is [facility], they will provide copies. Pt appears to have simple understanding of things and wishes to include his son in medical updates and decision making . Ethical issues impacting care: Important Contacts Jevon Landeros- ([facility]) Elpidio Jaime [phone] (Gwen, DIL [phone]) Jevon Jaime [phone] . Prognosis This patient has a new diagnosis of squamous cell carcinoma, s/p mass resection , intubation and arrest. He subsequently suffered acute renal failure and remains on hemodialysis. He has new findings of a large bladder mass, concerning for cancer, however cannot have additional diagnostic procedures until acute condition improves. It is possible his cancer could be treated, however his acute issues need to improve and his overall performance status needs to improve in order to obtain staging, and possible treatment. He has multiple issues and is severely deconditioned, it may take significant time for him to improve enough for treatment and during that time he remains high risk for further complications and setbacks. Code Status: Full Code Plan * Legal decision maker:pt appears able to participate in decision making. Reports his son Elpidio is [facility], they will provide copies. Pt appears to have simple understanding of things and wishes to include his son in medical updates and decision making . [facility] completed 12/17/16 naming son Elpidio Jaime as [facility] * Goals: GOALS HAVE BEEN AGGRESSIVE, pt wants to try to get needed resources in line in order to to go back home to [place] with his son, and possible obtain chemotherapy to treat his cancer and have more time. Patient's son and healthcare surrogate Elpidio is supportive of the patient's wishes. They're working to try to get him up to [place] closer to them. I provided an update to son 12/19 -- 01/13/17- Pt off unit. need to re address GOC, hospice has been consulted during HALICAT epoisode earlier this am. Could d/c w hospice, however would not be able to cont radiation on hospice. 1400 patient seen later in the afternoon after his return from radiation. Has now completed 4 of 25 treatments. He endorses feeling more tired and out of sorts in the past day or so. No specific complaints otherwise. He affirms DNR status. He is not certain if he wishes to proceed with hospice, or if he wishes to remain in the hospital and attempt to continue radiation treatments, other aggressive treatments short of resuscitation. He is going to talk more with his son Elpidio when he arrives later today to make further decisions. Palliative plans to follow-up again with him tomorrow 01/14 -- 01/14/17 met w pt, son, They have had ongoing conversations RE continuing radiation/semi aggressive tx short of resuscitation, vs transition to hospice and d/c out of the hospital to get up to [place] with family. Pt wishes to continue to try to complete radiation, he understands remains high risk for complications /resp issues. Plan is to enroll in hospice, after completing radiation. Wants to remain DNR. -- 01/22/17 met w pt at [facility]. He is A&O. goals remain aggressive. Feeling well overall. Wants to work with PT. * CODE STATUS: DNR * SYMPTOMS: --dyspnea- s/p acute resp failure- prolonged intubation, resolved. Has been on nasal cannula O2, PRN nebulizers-- denies and shortness of breath; earlier today with episode of desaturation, dyspnea. CXR appears unchanged, essentially white out of left lung. Episode of respiratory distress earlier this week, required transfer to ICU and BiPAP, now out of ICU. currently maintaining on nasal cannula - has elected NOT to use B IPAP anymore. HALICAT earlier this am due to hemoptysis, desaturation, pt elected NO intubation, DNR, comfort measures only, HOSPICE consulted. Goal to Continue to pursue aggressive treatment until completion of radiation. --malnutrition- +PEG, TF at night, + oral food in day time, on MEGACE, appetite fair, appears to improving intake slowly -- eating 50%-75% of most recent meals. --weakness/deconditioning - in hospital since 10/22 -- severely deconditioned- -> PT working with, pt with limited strength to even sit on side of bed.Pt reports difficulty feeding self due to weakness.Continues to work with OT/PT though clinical condition limits his ability to participate in prolonged therapy -- PT hasnt seen him recently pt requesting to continue to work with PT for strengthening. --Dysphagia- post ST eval,tolerating thin liquids, probably remains ongoing risk for aspiration * Palliative care will continue to follow during hospital course as condition evolves, to assist patient/decision-maker with understanding of medical conditions, weighing benefits/burdens of treatment options, for clarification of goals of treatment. Additionally will assist with any symptoms of palliative concern Attestation To help prompt me to consider important information that might be impacting today's encounter and assessment, information from prior notes written by myself or my colleagues may have been "brought forward" into today's note. My signature on this note, however, is an attestation that I personally performed the exam, history, and/or decision-making noted today, and, unless otherwise indicated, the interactions with patient, family, and staff as well as the review of records all occurred today. I also attest that the listed assessment and stated plan reflect my best clinical judgment today based on the combination of historical information, prior notes, and today's exam/ interactions. When time spent is documented, it refers only to time spent today by the signer, or if indicated, combined time spent today by collaborating physician/nurse practitioner. Evangelina Watson January 22, 2017 14:23
[2017-01-22] MEDS: RESP: ALBUTEROL 2.5 MG/IPRATROPIUM 0.5 MG NEB (PRN) NEB (19:40)
--- NOTE | 2017-01-22 19:55 | HHI.PR ---
Subjective Remarks . Afebrile. Tolerates PO, good appetite On 3LNC No fever Had radiation today Objective Vital Signs Vital Signs Date Time Temp Pulse Resp B/P Pulse Ox O2 Delivery O2 Flow Rate FiO2 01/22/17 18:08 93 Nasal Cannula 2.00 01/22/17 16:00 97.3 87 20 99/56 93 01/22/17 12:00 97.6 90 24 142/74 98 01/22/17 10:41 98 Nasal Cannula 2.00 01/22/17 09:30 Nasal Cannula 1.50 01/22/17 08:00 96.8 103 24 108/53 97 01/22/17 04:23 97.7 92 16 119/61 98 01/22/17 00:04 98.9 100 18 115/61 96 01/21/17 21:14 97.7 89 18 103/53 94 01/21/17 20:50 Nasal Cannula 1.00 01/21/17 20:00 Nasal Cannula 2.00 01/21/17 20:00 91 I/O 01/21/17 01/21/17 01/21/17 01/22/17 01/22/17 01/22/17 07:00 15:00 23:00 07:00 15:00 23:00 Intake Total 720 ml 240 ml 360 ml 150 ml 1223 ml Output Total 1000 ml 600 ml 300 ml 450 ml 700 ml Balance -280 ml -360 ml 60 ml -300 ml 523 ml Intake Oral 720 ml 240 ml 360 ml 150 ml 400 ml IV Total 98 ml Tube Feeding 625 ml Other 100 ml Output Urine Total 1000 ml 600 ml 300 ml 450 ml 700 ml # Bowel Movements 0 0 Result Diagram: 01/22/1762601/22/17626 Objective Remarks GENERAL: Patient is lying in bed in NAD SKIN: Warm and dry. HEAD: Normocephalic. EYES: No scleral icterus. No injection or drainage. NECK: Supple, trachea midline. No JVD or lymphadenopathy. CARDIOVASCULAR: Regular rate and rhythm without murmurs, gallops, or rubs. RESPIRATORY: Breath sounds equal bilaterally. No accessory muscle use. GASTROINTESTINAL: Abdomen soft, non-tender, nondistended. MUSCULOSKELETAL: No cyanosis, or edema. BACK: Nontender without obvious deformity. No CVA tenderness. 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 Monitor renal function, , Renal is following Supplement 02 to keep sat >90% Encourage PO intake. Aerosol nebs Valeriy Wilkins MD January 22, 2017 19:55
[2017-01-22] MEDS: ATORVASTATIN 40 MG TAB PO SCH (20:40)
[2017-01-23] VITALS (7 sets, daily range): BP systolic 103–125; BP diastolic 57–93; PULSE 87–99; RESP 16–19; TEMP 97.6–99.5; O2SAT 92–96
[2017-01-23] MEDS: DOCUSATE SODIUM 100 MG CAP PO SCH ×2 (05:36→18:46)
[2017-01-23] MEDS: cloNIDine HCL 0.1 MG TAB PO SCH ×3 (05:36→22:29)
[2017-01-23] MEDS: PANTOPRAZOLE SOD 40 MG DELAYED RELEASE TAB PO SCH (08:56)
[2017-01-23] MEDS: MEGESTROL ACETATE SUSP 400 MG/10 ML CUP PO SCH (08:56)
[2017-01-23] MEDS: NIFEdipine 90 MG SUSTAINED RELEASE TAB PO SCH (08:56)
[2017-01-23] MEDS: FERROUS SULFATE 300 MG /5ML UDC PO SCH (08:56)
[2017-01-23] MEDS: PHENYTOIN SUSP 100 MG/4 ML CUP PO SCH ×2 (08:56→22:31)
[2017-01-23] MEDS: DOXAZOSIN MESYLATE 4 MG TAB PO SCH ×2 (08:56→22:30)
[2017-01-23] MEDS: SODIUM CHLORIDE 0.9% FLUSH 5 ML FLUSH FLUSH SCH ×2 (08:57→21:00)
[2017-01-23] MEDS: FLUTICASONE PROPIONATE 50 MCG/ACT 16 GM NASAL SPRAY EACH NARE SCH (08:57)
[2017-01-23] MEDS: FLUCONAZOLE 200 MG PREMIX BAG 100 ML IV SCH (12:11)
--- NOTE | 2017-01-23 14:31 | HHI.PR ---
Subjective Remarks Doing well today. Had radiation. No episodes of dyspnea overnight. Resting comfortably. Tolerating radiation therapy. Objective Vital Signs Date Time Temp Pulse Resp B/P Pulse Ox O2 Delivery O2 Flow Rate FiO2 01/23/17 12:00 97.6 87 19 122/57 93 01/23/17 11:10 95 Nasal Cannula 2.00 01/23/17 08:53 Nasal Cannula 2.00 01/23/17 08:00 98.1 90 18 124/63 92 01/23/17 04:03 97.8 99 16 117/72 95 01/23/17 00:10 99.2 96 16 125/66 96 01/22/17 20:39 98.3 88 18 121/63 93 01/22/17 20:00 92 01/22/17 20:00 Nasal Cannula 2.00 01/22/17 18:08 93 Nasal Cannula 2.00 01/22/17 16:00 97.3 87 20 99/56 93 I/O 01/22/17 01/22/17 01/22/17 01/23/17 01/23/17 01/23/17 07:00 15:00 23:00 07:00 15:00 23:00 Intake Total 150 ml 1223 ml 250 ml 250 ml 717 ml Output Total 450 ml 700 ml 300 ml 300 ml Balance -300 ml 523 ml -50 ml -50 ml 717 ml Intake Oral 150 ml 400 ml 250 ml 250 ml IV Total 98 ml Tube Feeding 625 ml 717 ml Other 100 ml Output Urine Total 450 ml 700 ml 300 ml 300 ml # Bowel Movements 0 0 0 Result Diagram: 01/22/17 0627 01/22/17 06 Objective Remarks GENERAL: A&Ox3, NAD, Global Weakness SKIN: Warm and dry. HEAD: Normocephalic. EYES: No scleral icterus. No injection or drainage. NECK: Supple, trachea midline. No JVD or lymphadenopathy. CARDIOVASCULAR: Regular rate and rhythm without murmurs, gallops, or rubs. RESPIRATORY: Breath sounds equal bilaterally. No accessory muscle use. GASTROINTESTINAL: Abdomen soft, non-tender, nondistended. MUSCULOSKELETAL: No cyanosis, or edema. BACK: Nontender without obvious deformity. No CVA tenderness. A/P Problem List: (1) Weakness ICD Code: R53.1 Assessment & Plan: Unchanged Continue PT, patient is cooperative Unable to discharge to home unless more functional, which he is unlikely to become He would need a SNF at this point, if he were to discharge (2) Squamous cell lung cancer ICD Code: C34.90 Assessment & Plan: Tolerating radiation Gradual anemia may be related Continued Radiation treatments Oncology following No dyspnea today No hemoptysis (3) Anemia ICD Code: D64.9 Assessment & Plan: Improved Following CBC May need a transfusion if worsening continues Monitor for now (4) Acute renal failure ICD Code: N17.9 Assessment & Plan: Slow but continued improvement stable CKD Follow renal function (5) Dyspnea ICD Code: R06.00 Assessment & Plan: Chronic with exertion. Follow for any worsening. Supplemental Oxygen. (6) Nisa UTI ICD Code: B37.49 Assessment & Plan: Fluconazole Follow clinically Assessment and Plan Bladder Lesion Flexible cystocope revealed a benign extension of the prostate Assessment and Plan: 71 year old male. Tolerating radiation. Continue radiation therapy for lung cancer. Continue PRN pain treatments. Increase PT usage. Problem Qualifiers (1) Squamous cell lung cancer: Qualified Code: C34.92 - Squamous cell lung cancer, left Patrick Taylor MD January 23, 2017 2:31 pm
--- NOTE | 2017-01-23 16:20 | HHI.PR ---
Subjective Remarks . Afebrile. Tolerates PO, good appetite On 3LNC No fever Had radiation today Breathing better Objective Vital Signs Vital Signs Date Time Temp Pulse Resp B/P Pulse Ox O2 Delivery O2 Flow Rate FiO2 01/23/17 12:00 97.6 87 19 122/57 93 01/23/17 11:10 95 Nasal Cannula 2.00 01/23/17 08:53 Nasal Cannula 2.00 01/23/17 08:00 98.1 90 18 124/63 92 01/23/17 04:03 97.8 99 16 117/72 95 01/23/17 00:10 99.2 96 16 125/66 96 01/22/17 20:39 98.3 88 18 121/63 93 01/22/17 20:00 92 01/22/17 20:00 Nasal Cannula 2.00 01/22/17 18:08 93 Nasal Cannula 2.00 I/O 01/22/17 01/22/17 01/22/17 01/23/17 01/23/17 01/23/17 07:00 15:00 23:00 07:00 15:00 23:00 Intake Total 150 ml 1223 ml 250 ml 250 ml 834 ml Output Total 450 ml 700 ml 300 ml 300 ml Balance -300 ml 523 ml -50 ml -50 ml 834 ml Intake Oral 150 ml 400 ml 250 ml 250 ml IV Total 98 ml 117 ml Tube Feeding 625 ml 717 ml Other 100 ml Output Urine Total 450 ml 700 ml 300 ml 300 ml # Bowel Movements 0 0 0 Result Diagram: 01/22/1762601/22/17626 Objective Remarks GENERAL: Patient is lying in bed in NAD SKIN: Warm and dry. HEAD: Normocephalic. EYES: No scleral icterus. No injection or drainage. NECK: Supple, trachea midline. No JVD or lymphadenopathy. CARDIOVASCULAR: Regular rate and rhythm without murmurs, gallops, or rubs. RESPIRATORY: Breath sounds equal bilaterally. No accessory muscle use. GASTROINTESTINAL: Abdomen soft, non-tender, nondistended. MUSCULOSKELETAL: No cyanosis, or edema. BACK: Nontender without obvious deformity. No CVA tenderness. 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 Monitor renal function, , Supplement 02 to keep sat >90% Aerosol els Valeriy Wilkins MD January 23, 2017 16:20
[2017-01-23] MEDS ORDERED: ALPRAZolam 0.25 MG TAB PO ONE (18:15)
[2017-01-23] MEDS: ATORVASTATIN 40 MG TAB PO SCH (22:29)
[2017-01-24] VITALS (9 sets, daily range): BP systolic 107–136; BP diastolic 56–72; PULSE 85–101; RESP 16–20; TEMP 96.1–99.7; O2SAT 93–100
[2017-01-24 06:05] LABS: HEMATOCRIT 21.8 % (39.0-51.0); MEAN CELL VOLUME 86.4 FL (80.0-100.0); MEAN CORPUSCULAR HEMOGLOBIN 27.9 PG (27.0-34.0); MEAN CORPUSCULAR HGB CONC 32.2 % (32.0-36.0); PLATELET COUNT 363 TH/MM3 (150-450); RED BLOOD COUNT 2.53 MIL/MM3 (4.50-5.90); RED CELL DISTRIBUTION WIDTH 15.8 % (11.6-17.2); REVIEW FLAG FINAL; WHITE BLOOD COUNT 6.6 TH/MM3 (4.0-11.0)
[2017-01-24 06:28] LABS: BICARBONATE 21.5 MEQ/L (21.0-32.0); POTASSIUM 4.7 MEQ/L (3.5-5.1)
[2017-01-24] MEDS: DOCUSATE SODIUM 100 MG CAP PO SCH ×2 (06:51→19:02)
[2017-01-24] MEDS: cloNIDine HCL 0.1 MG TAB PO SCH ×3 (06:51→21:18)
[2017-01-24] MEDS: FERROUS SULFATE 300 MG /5ML UDC PO SCH (08:41)
[2017-01-24] MEDS: MEGESTROL ACETATE SUSP 400 MG/10 ML CUP PO SCH (08:41)
[2017-01-24] MEDS: PHENYTOIN SUSP 100 MG/4 ML CUP PO SCH ×2 (08:41→21:17)
[2017-01-24] MEDS: PANTOPRAZOLE SOD 40 MG DELAYED RELEASE TAB PO SCH (08:42)
[2017-01-24] MEDS: FLUTICASONE PROPIONATE 50 MCG/ACT 16 GM NASAL SPRAY EACH NARE SCH (08:42)
[2017-01-24] MEDS: SODIUM CHLORIDE 0.9% FLUSH 5 ML FLUSH FLUSH SCH ×2 (08:42→21:19)
[2017-01-24] MEDS: DOXAZOSIN MESYLATE 4 MG TAB PO SCH ×2 (08:42→21:18)
[2017-01-24] MEDS: NIFEdipine 90 MG SUSTAINED RELEASE TAB PO SCH (08:43)
--- NOTE | 2017-01-24 12:28 | HHI.PR ---
Subjective Remarks Anemia has worsened. If anemia drops further transfusion will be needed. He is not having symptoms to complain of. Objective Vital Signs Date Time Temp Pulse Resp B/P Pulse Ox O2 Delivery O2 Flow Rate FiO2 01/24/17 12:00 96.9 88 20 136/72 100 01/24/17 09:35 Nasal Cannula 3.00 01/24/17 08:12 89 01/24/17 08:00 99.2 101 20 117/68 95 01/24/17 05:23 96.1 95 16 118/63 93 01/24/17 00:30 98.0 85 16 124/65 99 01/23/17 22:53 Nasal Cannula 3.00 01/23/17 21:25 Nasal Cannula 3.00 01/23/17 20:50 99.5 88 18 117/59 95 01/23/17 16:00 98.1 90 18 103/93 93 I/O 01/23/17 01/23/17 01/23/17 01/24/17 01/24/17 01/24/17 07:00 15:00 23:00 07:00 15:00 23:00 Intake Total 250 ml 834 ml 200 ml 765 ml Output Total 300 ml 900 ml 1000 ml 1200 ml Balance -50 ml -66 ml -800 ml -435 ml Intake Oral 250 ml 200 ml 400 ml IV Total 117 ml Tube Feeding 717 ml 365 ml Output Urine Total 300 ml 900 ml 1000 ml 1200 ml # Bowel Movements 0 0 1 2 Result Diagram: 01/24/17 0411 01/24/17 041 Objective Remarks GENERAL: A&Ox3, NAD, Global Weakness SKIN: Warm and dry. HEAD: Normocephalic. EYES: No scleral icterus. No injection or drainage. NECK: Supple, trachea midline. No JVD or lymphadenopathy. CARDIOVASCULAR: Regular rate and rhythm without murmurs, gallops, or rubs. RESPIRATORY: Breath sounds equal bilaterally. No accessory muscle use. GASTROINTESTINAL: Abdomen soft, non-tender, nondistended. MUSCULOSKELETAL: No cyanosis, or edema. BACK: Nontender without obvious deformity. No CVA tenderness. A/P Problem List: (1) Weakness ICD Code: R53.1 Assessment & Plan: Unchanged Continue PT, patient is cooperative Unable to discharge to home unless more functional, which he is unlikely to become He would need a SNF at this point, if he were to discharge (2) Squamous cell lung cancer ICD Code: C34.90 Assessment & Plan: Tolerating radiation Gradual anemia may be related Continued Radiation treatments Oncology following No dyspnea today No hemoptysis (3) Anemia ICD Code: D64.9 Assessment & Plan: Improved Following CBC May need a transfusion if worsening continues Monitor for now (4) Acute renal failure ICD Code: N17.9 Assessment & Plan: Slow but continued improvement stable CKD Follow renal function (5) Dyspnea ICD Code: R06.00 Assessment & Plan: Chronic with exertion. Follow for any worsening. Supplemental Oxygen. (6) Nisa UTI ICD Code: B37.49 Assessment & Plan: Fluconazole Follow clinically (7) Bladder mass ICD Code: N32.89 Assessment & Plan: Flexible cystocope revealed a benign extension of the prostate Assessment and Plan Assessment and Plan: 71 year old male. Increast PT utilization and transition to PM PT Tolerating radiation. Continue radiation therapy for lung cancer. Continue PRN pain treatments. Increase PT usage. Problem Qualifiers (1) Squamous cell lung cancer: Qualified Code: C34.92 - Squamous cell lung cancer, left Patrick Taylor MD January 24, 2017 12:28
[2017-01-24] MEDS: FLUCONAZOLE 200 MG PREMIX BAG 100 ML IV SCH (12:32)
--- NOTE | 2017-01-24 17:42 | HHI.PR ---
Subjective Remarks . Afebrile. Tolerates PO, good appetite On 3LNC No fever Had radiation today Breathing better No new complaint Objective Vital Signs Vital Signs Date Time Temp Pulse Resp B/P Pulse Ox O2 Delivery O2 Flow Rate FiO2 01/24/17 17:39 100 Nasal Cannula 3.00 01/24/17 12:00 96.9 88 20 136/72 100 01/24/17 09:35 Nasal Cannula 3.00 01/24/17 09:00 Nasal Cannula 3.00 01/24/17 08:12 89 01/24/17 08:00 99.2 101 20 117/68 95 01/24/17 05:23 96.1 95 16 118/63 93 01/24/17 00:30 98.0 85 16 124/65 99 01/23/17 22:53 Nasal Cannula 3.00 01/23/17 21:25 Nasal Cannula 3.00 01/23/17 20:50 99.5 88 18 117/59 95 I/O 01/23/17 01/23/17 01/23/17 01/24/17 01/24/17 01/24/17 07:00 15:00 23:00 07:00 15:00 23:00 Intake Total 250 ml 834 ml 200 ml 765 ml Output Total 300 ml 900 ml 1000 ml 1200 ml Balance -50 ml -66 ml -800 ml -435 ml Intake Oral 250 ml 200 ml 400 ml IV Total 117 ml Tube Feeding 717 ml 365 ml Output Urine Total 300 ml 900 ml 1000 ml 1200 ml Bladder Scan Volume Amount 432 ml # Bowel Movements 0 0 1 2 Result Diagram: 01/24/17 0411 01/24/17 041 Objective Remarks GENERAL: Patient is lying in bed in NAD SKIN: Warm and dry. HEAD: Normocephalic. EYES: No scleral icterus. No injection or drainage. NECK: Supple, trachea midline. No JVD or lymphadenopathy. CARDIOVASCULAR: Regular rate and rhythm without murmurs, gallops, or rubs. RESPIRATORY: Breath sounds equal bilaterally. No accessory muscle use. GASTROINTESTINAL: Abdomen soft, non-tender, nondistended. MUSCULOSKELETAL: No cyanosis, or edema. BACK: Nontender without obvious deformity. No CVA tenderness. 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 Monitor renal function, , Supplement 02 to keep sat >90% Aerosol nebs Available prn over weekend. Valeriy Wilkins MD January 24, 2017 17:42
[2017-01-24] MEDS: ATORVASTATIN 40 MG TAB PO SCH (21:18)
[2017-01-25] VITALS (8 sets, daily range): BP systolic 109–140; BP diastolic 56–82; PULSE 87–94; RESP 16–20; TEMP 96.7–98.8; O2SAT 96–99
[2017-01-25] MEDS: cloNIDine HCL 0.1 MG TAB PO SCH ×3 (05:30→22:00)
[2017-01-25] MEDS: DOCUSATE SODIUM 100 MG CAP PO SCH (05:30)
[2017-01-25 07:39] LABS: MEAN CELL VOLUME 87.9 FL (80.0-100.0); MEAN CORPUSCULAR HGB CONC 34.1 % (32.0-36.0); PLATELET COUNT 374 TH/MM3 (150-450); RED BLOOD COUNT 2.39 MIL/MM3 (4.50-5.90); RED CELL DISTRIBUTION WIDTH 15.8 % (11.6-17.2); REVIEW FLAG FINAL; WHITE BLOOD COUNT 7.4 TH/MM3 (4.0-11.0)
[2017-01-25] MEDS: DOXAZOSIN MESYLATE 4 MG TAB PO SCH ×2 (09:58→23:16)
[2017-01-25] MEDS: MEGESTROL ACETATE SUSP 400 MG/10 ML CUP PO SCH (09:58)
[2017-01-25] MEDS: NIFEdipine 90 MG SUSTAINED RELEASE TAB PO SCH (09:58)
[2017-01-25] MEDS: PANTOPRAZOLE SOD 40 MG DELAYED RELEASE TAB PO SCH (09:58)
[2017-01-25] MEDS: PHENYTOIN SUSP 100 MG/4 ML CUP PO SCH ×2 (09:58→23:18)
[2017-01-25] MEDS: FERROUS SULFATE 300 MG /5ML UDC PO SCH (09:58)
[2017-01-25] MEDS: FLUTICASONE PROPIONATE 50 MCG/ACT 16 GM NASAL SPRAY EACH NARE SCH (09:59)
[2017-01-25] MEDS: SODIUM CHLORIDE 0.9% FLUSH 5 ML FLUSH FLUSH SCH ×2 (09:59→21:00)
[2017-01-25] MEDS: FLUCONAZOLE 200 MG PREMIX BAG 100 ML IV SCH (10:12)
[2017-01-25] MEDS: MORPHINE SULFATE 4 MG/ML INJ IV PUSH PRN (10:18)
--- NOTE | 2017-01-25 13:02 | HHI.PR ---
Subjective Remarks Follow-up for lung cancer and generalized weakness. The patient is unable to ambulate, has not been working with PT. He denies any bleeding, dark or bloody stools. He denies any pain. He states occasionally he gets short of breath. The patient reports that he had 3 loose bowel movements overnight, but states he is on stool softeners because he previously was only having 1 bowel movement per week. Discussed with RN, patient was unable to void and Lipscomb was removed yesterday. Objective Vitals Vital Signs Date Time Temp Pulse Resp B/P Pulse Ox O2 Delivery O2 Flow Rate FiO2 01/25/17 11:50 98.1 89 20 140/74 99 01/25/17 09:59 98 Nasal Cannula 3.00 01/25/17 08:50 87 01/25/17 07:50 97.1 92 20 134/70 98 01/25/17 04:47 98.2 94 16 129/82 97 01/25/17 00:26 98.8 91 16 130/60 96 01/24/17 20:44 99.7 91 16 115/59 96 01/24/17 20:00 Nasal Cannula 3.00 21 01/24/17 20:00 91 01/24/17 17:39 100 Nasal Cannula 3.00 01/24/17 14:06 98.1 94 19 107/56 95 I/O 01/24/17 01/24/17 01/24/17 01/25/17 01/25/17 01/25/17 07:00 15:00 23:00 07:00 15:00 23:00 Intake Total 765 ml 580 ml 480 ml Output Total 1200 ml 1500 ml 550 ml Balance -435 ml -920 ml -70 ml Intake Oral 400 ml 580 ml 480 ml Tube Feeding 365 ml Output Urine Total 1200 ml 1500 ml 550 ml Bladder Scan Volume Amount 432 ml # Bowel Movements 1 2 1 2 Result Diagram: 01/25/17 0713 01/24/17 0411 Imaging Last Impressions Central Venous Line 01/14/17 1150 Signed Impressions: Service Date/Time: Saturday, January 14, 2017 11:50 - CONCLUSION: Uncomplicated Permcath removal. Beto Perry MD Chest X-Ray 01/14/17 0600 Signed Impressions: Service Date/Time: Saturday, January 14, 2017 05:43 - CONCLUSION: The right lung is grossly clear. No change in the complete opacification of the left hemithorax. Tono Vazquez MD Lower Extremity Ultrasound 01/06/17 0000 Signed Impressions: Service Date/Time: Friday, January 06, 2017 09:02 - CONCLUSION: Normal examination. Shawn Reyes MD Upper Extremity Ultrasound 12/11/16 1506 Signed Impressions: Service Date/Time: Sunday, December 11, 2016 18:00 - CONCLUSION: Superficial thrombophlebitis, extensive edema and nonspecific fluid collections in the subcutaneous tissues. Shawn Reyes MD Head CT 12/11/16 0000 Signed Impressions: Service Date/Time: Sunday, December 11, 2016 20:00 - CONCLUSION: Slight atrophic and small vessel ischemic changes without any evidence for acute hemorrhage or mass effect. Shawn Reyes MD Renal Ultrasound 12/09/16 0000 Signed Impressions: Service Date/Time: Friday, December 09, 2016 15:16 - CONCLUSION: 1. 8.4 cm mass lesion at the base of the bladder. This may represent an intrinsic mass of the bladder versus a prominent anterior lobe of the prostate. 2. Otherwise, urinary bladder is partially decompressed with a Lipscomb catheter. 3. Both kidneys are sonographically normal. Roby Horta MD Objective Remarks GENERAL: Well-developed well-nourished. In no acute distress. SKIN: Warm and dry. No lesions noted. HEENT: Normocephalic. Pupils equal and round. Mucous membranes pink and moist. CARDIOVASCULAR: Regular rate and rhythm. No murmur appreciated. RESPIRATORY: No accessory muscle use. Clear to auscultation. Breath sounds equal bilaterally. GASTROINTESTINAL: Abdomen soft, non-tender, nondistended. Bowel sounds x4. PEG tube in place. MUSCULOSKELETAL: No obvious deformities. No clubbing or cyanosis. No edema. NEUROLOGICAL: Awake and alert. No focal neurological deficits. Moves upper and lower extremities spontaneously. Normal speech. PSYCHIATRIC: Appropriate mood and affect; insight and judgment normal. Procedures 12/11- EGD- esophagitis, gastritis, duodenitis PEG placement Urinary Catheter: Yes Assessment to: Continue Lipscomb insert reason: Obstruction/Retention Date of Insertion: January 24, 2017 Line: Central Venous Catheter A/P Problem List: (1) Bronchiolar obstruction ICD Code: J98.09 Status: Acute (2) Mass of left lung ICD Code: R91.8 Status: Acute (3) Squamous cell lung cancer ICD Code: C34.90 Status: Acute (4) Severe muscle deconditioning ICD Code: R29.898 Status: Acute (5) Anemia ICD Code: D64.9 Status: Acute (6) Acute respiratory failure ICD Code: J96.00 Status: Acute (7) Hemoptysis ICD Code: R04.2 Status: Acute (8) Hypoxia ICD Code: R09.02 Status: Acute Assessment and Plan 71-year-old male with SCC of the lung: Squamous cell lung cancer: Currently undergoing radiation therapy. Supplemental oxygen as needed. Nebs as needed. Normocytic anemia: Likely secondary to the above. Hemoglobin stable at 7.2 currently. No signs of bleeding. Monitor CBC. Transfuse if indicated. Acute renal failure: Creatinine previously 0.77 on 11/02/16, creatinine acutely worsened, but has been slowly returning to normal. Monitor BMPs. Generalized weakness: Secondary to the above. Resume PT. Nisa UTI: S/P treatment with fluconazole. 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 Maintain Lipscomb for now and follow up with urology. Continue doxazosin. Dysphagia and malnutrition: Continue mechanical soft diet per speech therapy. Tolerating tube feedings. Diarrhea with history of constipation: Hold scheduled stool softeners for now. We'll check stool studies if further episodes. DVT prophylaxis: Heparin Problem Qualifiers (1) Squamous cell lung cancer: Qualified Code: C34.92 - Squamous cell lung cancer, left Long,Mario STEWARD January 25, 2017 13:02
[2017-01-25] MEDS: ATORVASTATIN 40 MG TAB PO SCH (21:00)
[2017-01-26] VITALS (7 sets, daily range): BP systolic 93–116; BP diastolic 60–68; PULSE 87–103; RESP 17–19; TEMP 97.3–99.2; O2SAT 93–96
[2017-01-26] MEDS: cloNIDine HCL 0.1 MG TAB PO SCH ×3 (05:55→22:00)
[2017-01-26 06:36] LABS: HEMATOCRIT 22.9 % (39.0-51.0); MEAN CELL VOLUME 86.5 FL (80.0-100.0); MEAN CORPUSCULAR HEMOGLOBIN 28.1 PG (27.0-34.0); MEAN CORPUSCULAR HGB CONC 32.5 % (32.0-36.0); PLATELET COUNT 375 TH/MM3 (150-450); RED BLOOD COUNT 2.65 MIL/MM3 (4.50-5.90); RED CELL DISTRIBUTION WIDTH 15.8 % (11.6-17.2); REVIEW FLAG FINAL; WHITE BLOOD COUNT 6.6 TH/MM3 (4.0-11.0)
[2017-01-26 06:57] LABS: BICARBONATE 20.6 MEQ/L (21.0-32.0); POTASSIUM 4.4 MEQ/L (3.5-5.1)
[2017-01-26] MEDS: NIFEdipine 90 MG SUSTAINED RELEASE TAB PO SCH (09:30)
[2017-01-26] MEDS: PHENYTOIN SUSP 100 MG/4 ML CUP PO SCH (09:30)
[2017-01-26] MEDS: MEGESTROL ACETATE SUSP 400 MG/10 ML CUP PO SCH (09:30)
[2017-01-26] MEDS: DOXAZOSIN MESYLATE 4 MG TAB PO SCH (09:30)
[2017-01-26] MEDS: FERROUS SULFATE 300 MG /5ML UDC PO SCH (09:31)
[2017-01-26] MEDS: PANTOPRAZOLE SOD 40 MG DELAYED RELEASE TAB PO SCH (09:31)
[2017-01-26] MEDS: SODIUM CHLORIDE 0.9% FLUSH 5 ML FLUSH FLUSH SCH ×2 (09:31→21:00)
[2017-01-26] MEDS: FLUTICASONE PROPIONATE 50 MCG/ACT 16 GM NASAL SPRAY EACH NARE SCH (09:31)
--- NOTE | 2017-01-26 13:51 | HHI.PR ---
Subjective Remarks Follow-up for orthostatic dizziness. The patient worked with PT today. He says that the physical therapist working hard. He did have some dizziness with sitting or when working with PT. He states the dizziness improved after he had been seated for a few minutes. Discussed with RN, afternoon clonidine was held due to hypotension. Objective Vitals Vital Signs Date Time Temp Pulse Resp B/P Pulse Ox O2 Delivery O2 Flow Rate FiO2 01/26/17 12:57 98.3 91 19 115/68 95 01/26/17 09:43 93 Nasal Cannula 2.00 01/26/17 08:33 97.5 100 18 109/63 93 01/26/17 08:08 98 01/26/17 04:00 97.3 87 17 114/63 95 01/26/17 00:00 97.6 88 17 116/60 96 01/26/17 00:00 Nasal Cannula 2.00 01/25/17 20:00 96.7 88 17 109/56 96 01/25/17 19:58 97 Nasal Cannula 2.00 01/25/17 15:50 97.6 89 20 121/65 99 I/O 01/25/17 01/25/17 01/25/17 01/26/17 01/26/17 01/26/17 07:00 15:00 23:00 07:00 15:00 23:00 Intake Total 480 ml 469 ml 240 ml 240 ml Output Total 550 ml 550 ml 750 ml Balance -70 ml -81 ml 240 ml -510 ml Intake Oral 480 ml 357 ml 240 ml 240 ml IV Total 112 ml Output Urine Total 550 ml 550 ml 750 ml # Bowel Movements 2 0 2 Result Diagram: 01/26/1713 01/26/17612 Objective Remarks GENERAL: Well-developed well-nourished. In no acute distress. SKIN: Warm and dry. No lesions noted. HEENT: Normocephalic. Pupils equal and round. Mucous membranes pink and moist. CARDIOVASCULAR: Regular rate and rhythm. No murmur appreciated. RESPIRATORY: No accessory muscle use. Clear to auscultation. Breath sounds equal bilaterally. GASTROINTESTINAL: Abdomen soft, non-tender, nondistended. Bowel sounds x4. PEG tube in place. MUSCULOSKELETAL: No obvious deformities. No clubbing or cyanosis. No edema. NEUROLOGICAL: Awake and alert. No focal neurological deficits. Moves upper and lower extremities spontaneously. Normal speech. PSYCHIATRIC: Appropriate mood and affect; insight and judgment normal. Procedures 12/11- EGD- esophagitis, gastritis, duodenitis PEG placement Date of Insertion: January 24, 2017 Line: Central Venous Catheter A/P Problem List: (1) Bronchiolar obstruction ICD Code: J98.09 Status: Acute (2) Mass of left lung ICD Code: R91.8 Status: Acute (3) Squamous cell lung cancer ICD Code: C34.90 Status: Acute (4) Severe muscle deconditioning ICD Code: R29.898 Status: Acute (5) Anemia ICD Code: D64.9 Status: Acute (6) Acute respiratory failure ICD Code: J96.00 Status: Acute (7) Hemoptysis ICD Code: R04.2 Status: Acute (8) Hypoxia ICD Code: R09.02 Status: Acute Assessment and Plan 71-year-old male with SCC of the lung: Squamous cell lung cancer: Currently undergoing radiation therapy. Supplemental oxygen as needed. Nebs as needed. Normocytic anemia: Likely secondary to the above. Hemoglobin stable at 7.4 currently. No signs of bleeding. Monitor CBC. Transfuse if indicated. Acute renal failure: Creatinine previously 0.77 on 11/02/16, creatinine acutely worsened, but has been slowly returning to normal. Monitor BMPs. Generalized weakness: Secondary to the above. Resumed PT. Nisa UTI: S/P treatment with fluconazole. 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 Maintain Lipscomb for now and follow up with urology. Continue doxazosin. Dysphagia and malnutrition: Continue mechanical soft diet per speech therapy. Tolerating tube feedings. Diarrhea with history of constipation: Hold scheduled stool softeners for now. We'll check stool studies if further episodes. 01/26 2 stools reported overnight, appears to be improving, monitor Hypertension: Previously uncontrolled, now appears to be over controlled with orthostatic dizziness. Decreased doxazosin. Continue nifedipine and clonidine for now. Orthostatic dizziness: Patient complains of dizziness when sitting. Check sitting blood pressures. Adjust BP meds as indicated. DVT prophylaxis: Heparin Problem Qualifiers (1) Squamous cell lung cancer: Qualified Code: C34.92 - Squamous cell lung cancer, left Long,Mario STEWARD January 26, 2017 13:51
[2017-01-27] VITALS (7 sets, daily range): BP systolic 103–120; BP diastolic 59–67; PULSE 93–107; RESP 18–20; TEMP 96.9–99.4; O2SAT 95–99
[2017-01-27] MEDS: PHENYTOIN SUSP 100 MG/4 ML CUP PO SCH ×3 (00:03→20:43)
[2017-01-27] MEDS: ATORVASTATIN 40 MG TAB PO SCH ×2 (00:04→20:44)
[2017-01-27] MEDS: DOXAZOSIN MESYLATE 4 MG TAB PO SCH ×2 (00:05→20:43)
[2017-01-27] MEDS: cloNIDine HCL 0.1 MG TAB PO SCH ×3 (06:00→20:43)
[2017-01-27] MEDS: NIFEdipine 90 MG SUSTAINED RELEASE TAB PO SCH (08:29)
[2017-01-27] MEDS: MEGESTROL ACETATE SUSP 400 MG/10 ML CUP PO SCH (08:30)
[2017-01-27] MEDS: FERROUS SULFATE 300 MG /5ML UDC PO SCH (08:30)
[2017-01-27] MEDS: PANTOPRAZOLE SOD 40 MG DELAYED RELEASE TAB PO SCH (08:30)
[2017-01-27] MEDS: MORPHINE SULFATE 4 MG/ML INJ IV PUSH PRN (08:31)
[2017-01-27] MEDS: SODIUM CHLORIDE 0.9% FLUSH 5 ML FLUSH FLUSH SCH ×2 (08:32→20:44)
[2017-01-27] MEDS: FLUTICASONE PROPIONATE 50 MCG/ACT 16 GM NASAL SPRAY EACH NARE SCH (08:32)
[2017-01-27] MEDS ORDERED: ALPRAZolam 0.5 MG TAB PO ONE (09:00)
[2017-01-27] MEDS ORDERED: CALCIUM CARBONATE 500 MG CHEWABLE TAB CHEW ONE (09:00)
--- NOTE | 2017-01-27 09:16 | HHI.PR ---
Subjective Remarks Follow up for orthostatic hypotension/dizziness. The patient reports "not feeling great" this morning. He states he has the hiccups this morning, discussed trying Tums, patient agrees. He reports severe dizziness yesterday when trying to sit up at bedside, relieved immediately by lying back in bed. Denies any headache, blurred vision, nausea/vomiting. He reports eating only half his meals because he's just not that hungry. He states when he was at home , he only ate twice a day. The patient also did have an episode of right anterior chest pain overnight, relieved by IV morphine. He states he's had these pains intermittently since he's been in the hospital. He denies any significant shortness of breath or wheezing. O2 sat 95% on 2L NC. Objective Vitals Vital Signs Date Time Temp Pulse Resp B/P Pulse Ox O2 Delivery O2 Flow Rate FiO2 01/27/17 08:00 99.2 107 18 113/61 95 01/27/17 04:00 99.1 106 18 106/59 95 01/27/17 00:00 99.4 107 18 108/62 97 01/26/17 20:00 98.2 103 19 105/60 94 01/26/17 20:00 101 01/26/17 20:00 94 Nasal Cannula 2.00 01/26/17 16:00 99.2 98 18 116/62 94 93/60 01/26/17 12:57 98.3 91 19 115/68 95 01/26/17 09:43 93 Nasal Cannula 2.00 I/O 01/26/17 01/26/17 01/26/17 01/27/17 01/27/17 01/27/17 07:00 15:00 23:00 07:00 15:00 23:00 Intake Total 240 ml 240 ml 810 ml Output Total 750 ml 1900 ml 450 ml 950 ml Balance -510 ml -1900 ml -210 ml -140 ml Intake Oral 240 ml 240 ml Tube Feeding 780 ml Tube Irrigant 30 ml Output Urine Total 750 ml 1900 ml 450 ml 950 ml # Bowel Movements 2 0 Result Diagram: 01/26/17 0613 01/26/17 0613 Imaging Last Impressions Central Venous Line 01/14/17 1150 Signed Impressions: Service Date/Time: Saturday, January 14, 2017 11:50 - CONCLUSION: Uncomplicated Permcath removal. Beto Perry MD Chest X-Ray 01/14/17 0600 Signed Impressions: Service Date/Time: Saturday, January 14, 2017 05:43 - CONCLUSION: The right lung is grossly clear. No change in the complete opacification of the left hemithorax. Tono Vazquez MD Lower Extremity Ultrasound 01/06/17 0000 Signed Impressions: Service Date/Time: Friday, January 06, 2017 09:02 - CONCLUSION: Normal examination. Shawn Reyes MD Upper Extremity Ultrasound 12/11/16 1506 Signed Impressions: Service Date/Time: Sunday, December 11, 2016 18:00 - CONCLUSION: Superficial thrombophlebitis, extensive edema and nonspecific fluid collections in the subcutaneous tissues. Shawn Reyes MD Head CT 12/11/16 0000 Signed Impressions: Service Date/Time: Sunday, December 11, 2016 20:00 - CONCLUSION: Slight atrophic and small vessel ischemic changes without any evidence for acute hemorrhage or mass effect. Shawn Reyes MD Renal Ultrasound 12/09/16 0000 Signed Impressions: Service Date/Time: Friday, December 09, 2016 15:16 - CONCLUSION: 1. 8.4 cm mass lesion at the base of the bladder. This may represent an intrinsic mass of the bladder versus a prominent anterior lobe of the prostate. 2. Otherwise, urinary bladder is partially decompressed with a Lipscomb catheter. 3. Both kidneys are sonographically normal. Roby Horta MD Objective Remarks GENERAL: Well-nourished, well-developed pleasant male patient in [facility]. SKIN: Warm and dry. No rash. HEENT: Normocephalic. Atraumatic. Pupils equal and round. Mucous membranes pink and moist. NECK: Supple. Trachea midline. CARDIOVASCULAR: Regular rate and rhythm. S1, S2 noted. No murmur appreciated. RESPIRATORY: No accessory muscle use. Clear to auscultation. Breath sounds equal bilaterally. GASTROINTESTINAL: Abdomen soft, non-tender, nondistended. Normoactive bowel sounds x4. PEG tube in place. GENITOURINARY: Lipscomb catheter in place. MUSCULOSKELETAL: No obvious deformities. Extremities without clubbing, cyanosis , or edema. NEUROLOGICAL: Awake and alert. No obvious cranial nerve deficits. Motor grossly within normal limits. Normal speech. PSYCHIATRIC: Appropriate mood and affect; insight and judgment normal. Procedures 12/11- EGD- esophagitis, gastritis, duodenitis PEG placement Medications and IVs Current Medications Medications (Trade) Dose Ordered Sig/Luis Carlos Route Start Time Stop Time Status Last Admin (NS Flush) 2 ml UNSCH PRN FLUSH 12/05/16 17:00 (NS Flush) 2 ml BID FLUSH 12/05/16 21:00 01/27/17 08:32 (Zofran Inj) 4 mg Q6H PRN IVP 12/05/16 18:00 (Dulcolax Supp) 10 mg DAILY PRN NM 12/05/16 18:00 (Narcan Inj) 0.4 mg UNSCH PRN IV 12/05/16 17:00 (Ferrous Sulfate Liq) 300 mg DAILY PO 12/06/16 09:00 01/27/17 08:30 (Lipitor) 40 mg HS PO 12/05/16 21:00 01/27/17 00:04 (Lasix Liq) 40 mg DAILY TUBE 12/06/16 09:00 Hold 12/20/16 08:50 (Jacinda-Colace) 2 tab BID PRN PO 12/05/16 19:45 01/21/17 11:08 (Lactulose Liq) 30 ml TID PRN PO 12/05/16 19:45 01/19/17 09:58 Magnesium Hydroxide 30 ml 30 ml Q6H PRN PO 12/05/16 19:45 01/19/17 09:58 (NS 1000 ml Inj) 1,000 ml @ 0 mls/hr Q0M PRN IV 12/06/16 12:11 12/12/16 09:33 Heparin Sodium (Porcine) 8000 units 8,000 units UNSCH PRN IVF 12/06/16 12:15 Sodium Chloride 1,000 ml @ 200 mls/hr Q5H PRN IV 12/06/16 12:11 (NS 1000 ml Inj) 1,000 ml @ 0 mls/hr Q0M PRN IV 12/06/16 12:11 (Mannitol Inj) 12.5 gm UNSCH PRN IV 12/06/16 12:15 (Albumin 25% Inj) 25 gm UNSCH PRN IV 12/06/16 12:15 (NS Flush) 5 ml UNSCH PRN IVF 12/06/16 12:15 (Heparin Inj) UNSCH PRN .XX 12/06/16 12:15 12/14/16 16:39 (Gentamicin (Dialysis) Inj) 20 mg UNSCH PRN IV 12/06/16 12:15 12/14/16 16:39 (Zofran Inj) 4 mg UNSCH PRN IV 12/06/16 12:15 (Tylenol) 650 mg UNSCH PRN PO 12/06/16 12:15 12/14/16 07:54 (Benadryl) 25 mg UNSCH PRN PO 12/06/16 12:15 (Nitrostat Sl) 0.4 mg UNSCH PRN SL 12/06/16 12:15 (Catapres) 0.1 mg UNSCH PRN PO 12/06/16 12:15 12/19/16 06:27 (Epogen Inj) 10,000 units UNSCH PRN IV 12/06/16 12:15 12/14/16 16:39 (Gelfoam 12 Mm/7 Mm Top) 1 foam UNSCH PRN TOP 12/06/16 12:15 (Megace Liq) 400 mg DAILY PO 12/08/16 09:00 01/27/17 08:30 (Heparin Inj) 5,000 units Q12HR SQ 12/08/16 21:00 Hold 01/13/17 09:37 (Dilantin Liq) 300 mg Q12HR PO 12/08/16 21:00 01/27/17 08:30 Fluticasone Propionate 2 spray 2 spray DAILY EACH NARE 12/18/16 12:00 01/27/17 08:32 (1/2 NS 1000 ml Inj) 1,000 ml @ 65 mls/hr [id number] IV 12/20/16 10:00 Hold 12/24/16 21:10 (Protonix) 40 mg DAILY PO 12/25/16 10:30 01/27/17 08:30 Miscellaneous Information Patient in critical care unit? Ass... Q361D .XX 12/25/16 22:30 12/25/16 22:30 (Cardura) 10 mg HS PO 12/26/16 21:00 01/27/17 00:05 (Procardia Xl) 90 mg DAILY PO 12/27/16 09:00 01/27/17 08:29 (Pill Splitter) 1 ea UNSCH PRN OTHER 12/26/16 19:00 12/27/16 10:33 (Catapres) 0.1 mg Q8HR PO 01/03/17 22:00 01/26/17 05:55 (Morphine Inj) 2 mg Q3H PRN IV PUSH 01/13/17 05:15 01/27/17 08:31 (Ativan Inj) 1 mg Q4H PRN IV PUSH 01/13/17 05:15 01/13/17 09:43 (Lasix Inj) 20 mg Q6HR PRN IV PUSH 01/13/17 05:15 (Milk Of Magnesia Liq) 30 ml BID PRN PO 01/19/17 10:45 (Xanax) 0.5 mg ONCE ONCE PO 01/27/17 09:00 01/27/17 09:01 Urinary Catheter: Yes Assessment to: Continue Date of Insertion: January 24, 2017 A/P Problem List: (1) Bronchiolar obstruction ICD Code: J98.09 Status: Acute (2) Mass of left lung ICD Code: R91.8 Status: Acute (3) Squamous cell lung cancer ICD Code: C34.90 Status: Acute (4) Severe muscle deconditioning ICD Code: R29.898 Status: Acute (5) Anemia ICD Code: D64.9 Status: Acute (6) Acute respiratory failure ICD Code: J96.00 Status: Acute (7) Hemoptysis ICD Code: R04.2 Status: Acute (8) Hypoxia ICD Code: R09.02 Status: Acute Assessment and Plan 71-year-old male with SCC of the lung: Squamous cell lung cancer: Currently undergoing radiation therapy. Supplemental oxygen as needed. Nebs as needed. Oncology and Pulmonology on board. Normocytic anemia: Likely secondary to the above. Hemoglobin stable at 7.4 currently. No signs of bleeding. Monitor CBC. Transfuse if indicated. Acute renal failure: Creatinine previously 0.77 on 11/02/16, creatinine acutely worsened, but has been slowly returning to normal. Monitor BMPs. Generalized weakness: Secondary to the above. Continue PT. Nisa UTI: S/P treatment with fluconazole. 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 Maintain Lipscomb for now and follow up with urology. Continue doxazosin. Dysphagia and malnutrition: Continue mechanical soft diet per speech therapy. Tolerating tube feedings. Continue megace for appetite stimulation. Diarrhea with history of constipation: Held scheduled stool softeners for now. Check stool studies if further episodes. Diarrhea improving. Hypertension: Previously uncontrolled, now appears to be over controlled with orthostatic dizziness. Decreased doxazosin. Continue nifedipine and clonidine for now. Orthostatic dizziness: Patient complains of dizziness when sitting. + orthostatic BP. Adjust BP meds as indicated. Continue PT. Hiccups/Dyspepsia: started on Tums today 01/27. Monitor for improvement. DVT prophylaxis: Heparin Problem Qualifiers (1) Squamous cell lung cancer: Qualified Code: C34.92 - Squamous cell lung cancer, left Salud Vickers PA-C January 27, 2017 9:16 am
--- NOTE | 2017-01-27 19:44 | HHI.PR ---
Subjective Remarks . Afebrile. Tolerates PO, good appetite On 3LNC No fever Had radiation today Breathing better Objective Vital Signs Vital Signs Date Time Temp Pulse Resp B/P Pulse Ox O2 Delivery O2 Flow Rate FiO2 01/27/17 16:00 98.0 96 18 120/67 99 01/27/17 12:00 98.9 97 20 119/66 98 01/27/17 08:30 101 01/27/17 08:30 93 Nasal Cannula 2.00 01/27/17 08:00 99.2 107 18 113/61 95 01/27/17 04:00 99.1 106 18 106/59 95 01/27/17 00:00 99.4 107 18 108/62 97 01/26/17 20:00 98.2 103 19 105/60 94 01/26/17 20:00 101 01/26/17 20:00 94 Nasal Cannula 2.00 I/O 01/26/17 01/26/17 01/26/17 01/27/17 01/27/17 01/27/17 07:00 15:00 23:00 07:00 15:00 23:00 Intake Total 240 ml 240 ml 810 ml 360 ml Output Total 750 ml 1900 ml 450 ml 950 ml 550 ml Balance -510 ml -1900 ml -210 ml -140 ml -190 ml Intake Oral 240 ml 240 ml 360 ml Tube Feeding 780 ml Tube Irrigant 30 ml Output Urine Total 750 ml 1900 ml 450 ml 950 ml 550 ml # Bowel Movements 2 0 Result Diagram: 01/26/17 0613 01/26/17612 Objective Remarks GENERAL: Patient is lying in bed in NAD SKIN: Warm and dry. HEAD: Normocephalic. EYES: No scleral icterus. No injection or drainage. NECK: Supple, trachea midline. No JVD or lymphadenopathy. CARDIOVASCULAR: Regular rate and rhythm without murmurs, gallops, or rubs. RESPIRATORY: Breath sounds equal bilaterally. No accessory muscle use. GASTROINTESTINAL: Abdomen soft, non-tender, nondistended. MUSCULOSKELETAL: No cyanosis, or edema. BACK: Nontender without obvious deformity. No CVA tenderness. 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 Monitor renal function, , Supplement 02 to keep sat >90% Aerosol nebs Works with PT Valeriy Wilkins MD January 27, 2017 19:44
[2017-01-28] VITALS (9 sets, daily range): BP systolic 105–127; BP diastolic 57–68; PULSE 78–103; RESP 18–22; TEMP 96.5–99; O2SAT 95–100
[2017-01-28] MEDS: cloNIDine HCL 0.1 MG TAB PO SCH ×2 (06:16→14:34)
[2017-01-28 07:07] LABS: HEMATOCRIT 22.5 % (39.0-51.0); MEAN CELL VOLUME 85.1 FL (80.0-100.0); PLATELET COUNT 394 TH/MM3 (150-450); RED BLOOD COUNT 2.65 MIL/MM3 (4.50-5.90); RED CELL DISTRIBUTION WIDTH 15.9 % (11.6-17.2); REVIEW FLAG FINAL; WHITE BLOOD COUNT 8.2 TH/MM3 (4.0-11.0)
[2017-01-28 07:41] LABS: BICARBONATE 22.2 MEQ/L (21.0-32.0); POTASSIUM 4.5 MEQ/L (3.5-5.1)
[2017-01-28] MEDS: NIFEdipine 90 MG SUSTAINED RELEASE TAB PO SCH (08:58)
[2017-01-28] MEDS: FERROUS SULFATE 300 MG /5ML UDC PO SCH (08:58)
[2017-01-28] MEDS: PANTOPRAZOLE SOD 40 MG DELAYED RELEASE TAB PO SCH (08:58)
[2017-01-28] MEDS: FLUTICASONE PROPIONATE 50 MCG/ACT 16 GM NASAL SPRAY EACH NARE SCH (08:59)
[2017-01-28] MEDS: SODIUM CHLORIDE 0.9% FLUSH 5 ML FLUSH FLUSH SCH ×2 (08:59→21:00)
[2017-01-28] MEDS: PHENYTOIN SUSP 100 MG/4 ML CUP PO SCH (08:59)
[2017-01-28] MEDS: MEGESTROL ACETATE SUSP 400 MG/10 ML CUP PO SCH (08:59)
[2017-01-28] MEDS: MAGNESIUM HYDROXIDE SUSP 30 ML CUP PO PRN (11:44)
--- NOTE | 2017-01-28 13:03 | HHI.PR ---
Subjective Remarks Follow up for orthostatic hypotension/dizziness. The patient is seen s/p radiation today. He reports just feeling "worn out". He complains of constipation, he believes he hasn't had a BM in 1 week however has had multiple bowel movements documented over the past week, including 2 on 01/26. He denies any abdominal pain, nausea/vomiting. He denies any significant dizziness today. His hiccups also resolved. He has no other medical complaints at this time. Objective Vitals Vital Signs Date Time Temp Pulse Resp B/P Pulse Ox O2 Delivery O2 Flow Rate FiO2 01/28/17 08:45 98.5 100 20 109/58 96 01/28/17 08:15 Nasal Cannula 2.00 21 01/28/17 08:15 78 01/28/17 04:00 97.1 102 18 105/59 95 01/28/17 00:00 96.6 92 18 105/61 99 01/27/17 23:18 Nasal Cannula 2.00 01/27/17 20:45 Nasal Cannula 2.00 21 01/27/17 20:00 96.9 95 18 103/63 97 01/27/17 20:00 93 01/27/17 16:00 98.0 96 18 120/67 99 I/O 01/27/17 01/27/17 01/27/17 01/28/17 01/28/17 01/28/17 07:00 15:00 23:00 07:00 15:00 23:00 Intake Total 810 ml 360 ml 480 ml 1326 ml Output Total 950 ml 550 ml 500 ml 550 ml Balance -140 ml -190 ml -20 ml 776 ml Intake Oral 360 ml 480 ml 240 ml Tube Feeding 780 ml 846 ml Tube Irrigant 30 ml Other 240 ml Output Urine Total 950 ml 550 ml 500 ml 550 ml Bladder Scan Volume Amount 432 ml 432 ml Result Diagram: 01/28/17 0611 01/28/17 0611 Imaging No imaging in the past 72 hours. Objective Remarks GENERAL: Well-nourished, well-developed pleasant male patient in [employer]. SKIN: Warm and dry. No rash. HEENT: Normocephalic. Atraumatic. Pupils equal and round. Mucous membranes pink and moist. NECK: Supple. Trachea midline. CARDIOVASCULAR: Regular rate and rhythm. S1, S2 noted. No murmur appreciated. RESPIRATORY: No accessory muscle use. Clear to auscultation. Breath sounds equal bilaterally. GASTROINTESTINAL: Abdomen soft, non-tender, nondistended. Normoactive bowel sounds x4. PEG tube in place. GENITOURINARY: Lipscomb catheter in place. MUSCULOSKELETAL: No obvious deformities. Extremities without clubbing, cyanosis , or edema. NEUROLOGICAL: Awake and alert. No obvious cranial nerve deficits. Motor grossly within normal limits. Normal speech. PSYCHIATRIC: Appropriate mood and affect; insight and judgment normal. Procedures 12/11- EGD- esophagitis, gastritis, duodenitis PEG placement Medications and IVs Current Medications Medications (Trade) Dose Ordered Sig/Luis Carlos Route Start Time Stop Time Status Last Admin (NS Flush) 2 ml UNSCH PRN FLUSH 12/05/16 17:00 (NS Flush) 2 ml BID FLUSH 12/05/16 21:00 01/28/17 08:59 (Zofran Inj) 4 mg Q6H PRN IVP 12/05/16 18:00 (Dulcolax Supp) 10 mg DAILY PRN NM 12/05/16 18:00 (Narcan Inj) 0.4 mg UNSCH PRN IV 12/05/16 17:00 (Ferrous Sulfate Liq) 300 mg DAILY PO 12/06/16 09:00 01/28/17 08:58 (Lipitor) 40 mg HS PO 12/05/16 21:00 01/27/17 20:44 (Lasix Liq) 40 mg DAILY TUBE 12/06/16 09:00 Hold 12/20/16 08:50 (Jacinda-Colace) 2 tab BID PRN PO 12/05/16 19:45 01/21/17 11:08 (Lactulose Liq) 30 ml TID PRN PO 12/05/16 19:45 01/19/17 09:58 Magnesium Hydroxide 30 ml 30 ml Q6H PRN PO 12/05/16 19:45 01/19/17 09:58 (NS 1000 ml Inj) 1,000 ml @ 0 mls/hr Q0M PRN IV 12/06/16 12:11 12/12/16 09:33 Heparin Sodium (Porcine) 8000 units 8,000 units UNSCH PRN IVF 12/06/16 12:15 Sodium Chloride 1,000 ml @ 200 mls/hr Q5H PRN IV 12/06/16 12:11 (NS 1000 ml Inj) 1,000 ml @ 0 mls/hr Q0M PRN IV 12/06/16 12:11 (Mannitol Inj) 12.5 gm UNSCH PRN IV 12/06/16 12:15 (Albumin 25% Inj) 25 gm UNSCH PRN IV 12/06/16 12:15 (NS Flush) 5 ml UNSCH PRN IVF 12/06/16 12:15 (Heparin Inj) UNSCH PRN .XX 12/06/16 12:15 12/14/16 16:39 (Gentamicin (Dialysis) Inj) 20 mg UNSCH PRN IV 12/06/16 12:15 12/14/16 16:39 (Zofran Inj) 4 mg UNSCH PRN IV 12/06/16 12:15 (Tylenol) 650 mg UNSCH PRN PO 12/06/16 12:15 12/14/16 07:54 (Benadryl) 25 mg UNSCH PRN PO 12/06/16 12:15 (Nitrostat Sl) 0.4 mg UNSCH PRN SL 12/06/16 12:15 (Catapres) 0.1 mg UNSCH PRN PO 12/06/16 12:15 12/19/16 06:27 (Epogen Inj) 10,000 units UNSCH PRN IV 12/06/16 12:15 12/14/16 16:39 (Gelfoam 12 Mm/7 Mm Top) 1 foam UNSCH PRN TOP 12/06/16 12:15 (Megace Liq) 400 mg DAILY PO 12/08/16 09:00 01/28/17 08:59 (Heparin Inj) 5,000 units Q12HR SQ 12/08/16 21:00 Hold 01/13/17 09:37 (Dilantin Liq) 300 mg Q12HR PO 12/08/16 21:00 01/28/17 08:59 Fluticasone Propionate 2 spray 2 spray DAILY EACH NARE 12/18/16 12:00 01/28/17 08:59 (1/2 NS 1000 ml Inj) 1,000 ml @ 65 mls/hr [id number] IV 12/20/16 10:00 Hold 12/24/16 21:10 (Protonix) 40 mg DAILY PO 12/25/16 10:30 01/28/17 08:58 Miscellaneous Information Patient in critical care unit? Ass... Q361D .XX 12/25/16 22:30 12/25/16 22:30 (Cardura) 10 mg HS PO 12/26/16 21:00 01/27/17 20:43 (Procardia Xl) 90 mg DAILY PO 12/27/16 09:00 01/28/17 08:58 (Pill Splitter) 1 ea UNSCH PRN OTHER 12/26/16 19:00 12/27/16 10:33 (Catapres) 0.1 mg Q8HR PO 01/03/17 22:00 01/28/17 06:16 (Morphine Inj) 2 mg Q3H PRN IV PUSH 01/13/17 05:15 01/27/17 08:31 (Ativan Inj) 1 mg Q4H PRN IV PUSH 01/13/17 05:15 01/13/17 09:43 (Lasix Inj) 20 mg Q6HR PRN IV PUSH 01/13/17 05:15 (Milk Of Magnesia Liq) 30 ml BID PRN PO 01/19/17 10:45 01/28/17 11:44 (Tums Chew) 500 mg Q6H PRN CHEW 01/27/17 15:00 Urinary Catheter: Yes Assessment to: Continue Date of Insertion: January 24, 2017 A/P Problem List: (1) Bronchiolar obstruction ICD Code: J98.09 Status: Acute (2) Mass of left lung ICD Code: R91.8 Status: Acute (3) Squamous cell lung cancer ICD Code: C34.90 Status: Acute (4) Severe muscle deconditioning ICD Code: R29.898 Status: Acute (5) Anemia ICD Code: D64.9 Status: Acute (6) Acute respiratory failure ICD Code: J96.00 Status: Acute (7) Hemoptysis ICD Code: R04.2 Status: Acute (8) Hypoxia ICD Code: R09.02 Status: Acute Assessment and Plan 71-year-old male with SCC of the lung: Squamous cell lung cancer: Currently undergoing radiation therapy. Supplemental oxygen as needed. Nebs as needed. Oncology and Pulmonology on board. Normocytic anemia: Likely secondary to the above. Hemoglobin stable at 7.4 currently. No signs of bleeding. Monitor CBC. Transfuse if indicated. Acute renal failure: Creatinine previously 0.77 on 11/02/16, creatinine acutely worsened, but has been slowly returning to normal. Monitor BMPs. Generalized weakness: Secondary to the above. Continue PT. Nisa UTI: S/P treatment with fluconazole. 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 Maintain Lipscomb for now and follow up with urology. Continue doxazosin. Dysphagia and malnutrition: Continue mechanical soft diet per speech therapy. Tolerating tube feedings. Continue megace for appetite stimulation. Intermittent Diarrhea and Constipation: Held scheduled stool softeners for now. Check stool studies if further episodes. Diarrhea improved. Now patient feels constipated today 01/28, last BM documented on 01/26. Given MOM. Discussed with RN to try Dulcolax today if no improvement. Hypertension: Previously uncontrolled, now appears to be over controlled with orthostatic dizziness. Decreased doxazosin. Continue nifedipine and clonidine for now. Orthostatic dizziness: Patient complains of dizziness when sitting. + orthostatic BP. Adjust BP meds as indicated. Continue PT. Hiccups/Dyspepsia: started on Tums 01/27. Improved. Continue Tums prn. DVT prophylaxis: Heparin Problem Qualifiers (1) Squamous cell lung cancer: Qualified Code: C34.92 - Squamous cell lung cancer, left Salud Vickers PA-C January 28, 2017 13:03
--- NOTE | 2017-01-28 19:27 | HHI.PR ---
Subjective Remarks . Afebrile. Tolerates PO, good appetite On 3LNC No fever Had radiation today Breathing better "PT realy working me hard" Objective Vital Signs Vital Signs Date Time Temp Pulse Resp B/P Pulse Ox O2 Delivery O2 Flow Rate FiO2 01/28/17 17:33 98 Nasal Cannula 2.00 01/28/17 17:00 99.0 94 20 114/68 100 01/28/17 12:00 96.5 96 127/65 98 01/28/17 08:45 98.5 100 20 109/58 96 01/28/17 08:15 Nasal Cannula 2.00 21 01/28/17 08:15 78 01/28/17 04:00 97.1 102 18 105/59 95 01/28/17 00:00 96.6 92 18 105/61 99 01/27/17 23:18 Nasal Cannula 2.00 01/27/17 20:45 Nasal Cannula 2.00 21 01/27/17 20:00 96.9 95 18 103/63 97 01/27/17 20:00 93 I/O 01/27/17 01/27/17 01/27/17 01/28/17 01/28/17 01/28/17 07:00 15:00 23:00 07:00 15:00 23:00 Intake Total 810 ml 360 ml 480 ml 1326 ml 0 ml 560 ml Output Total 950 ml 550 ml 500 ml 550 ml 650 ml Balance -140 ml -190 ml -20 ml 776 ml 0 ml -90 ml Intake Oral 360 ml 480 ml 240 ml 560 ml IV Total 0 ml Tube Feeding 780 ml 846 ml Tube Irrigant 30 ml Other 240 ml Output Urine Total 950 ml 550 ml 500 ml 550 ml 650 ml Bladder Scan Volume Amount 432 ml 432 ml Result Diagram: 01/28/1711 01/28/17 0611 Objective Remarks GENERAL: Patient is lying in bed in NAD SKIN: Warm and dry. HEAD: Normocephalic. EYES: No scleral icterus. No injection or drainage. NECK: Supple, trachea midline. No JVD or lymphadenopathy. CARDIOVASCULAR: Regular rate and rhythm without murmurs, gallops, or rubs. RESPIRATORY: Breath sounds equal bilaterally. No accessory muscle use. GASTROINTESTINAL: Abdomen soft, non-tender, nondistended. MUSCULOSKELETAL: No cyanosis, or edema. BACK: Nontender without obvious deformity. No CVA tenderness. 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 Monitor renal function, , Supplement 02 to keep sat >90% Aerosol nebs Works with PT Valeriy Wilkins MD January 28, 2017 19:27
[2017-01-29] VITALS (9 sets, daily range): BP systolic 96–120; BP diastolic 55–67; PULSE 71–113; RESP 17–22; TEMP 97.5–99.7; O2SAT 93–96
[2017-01-29] MEDS: ATORVASTATIN 40 MG TAB PO SCH ×2 (00:20→23:20)
[2017-01-29] MEDS: PHENYTOIN SUSP 100 MG/4 ML CUP PO SCH ×3 (00:20→23:20)
[2017-01-29] MEDS: cloNIDine HCL 0.1 MG TAB PO SCH ×4 (00:20→23:20)
[2017-01-29] MEDS: DOXAZOSIN MESYLATE 4 MG TAB PO SCH ×2 (00:21→23:20)
--- NOTE | 2017-01-29 08:13 | HHI.PR ---
Subjective Remarks resting comfortably with no distress. denies pain or sob. Objective Vitals Vital Signs Date Time Temp Pulse Resp B/P Pulse Ox O2 Delivery O2 Flow Rate FiO2 01/29/17 07:59 95 Nasal Cannula 2.00 01/29/17 04:35 99.5 108 22 120/67 96 01/29/17 00:23 99.7 113 22 114/63 95 01/28/17 20:04 97.2 101 22 113/57 95 01/28/17 17:33 98 Nasal Cannula 2.00 01/28/17 17:00 99.0 94 20 114/68 100 01/28/17 12:00 96.5 96 127/65 98 01/28/17 08:45 98.5 100 20 109/58 96 01/28/17 08:15 Nasal Cannula 2.00 21 01/28/17 08:15 78 I/O 01/28/17 01/28/17 01/28/17 01/29/17 01/29/17 01/29/17 07:00 15:00 23:00 07:00 15:00 23:00 Intake Total 1326 ml 0 ml 1110 ml 480 ml Output Total 550 ml 850 ml 450 ml Balance 776 ml 0 ml 260 ml 30 ml Intake Oral 240 ml 1110 ml 480 ml IV Total 0 ml Tube Feeding 846 ml Other 240 ml Output Urine Total 550 ml 850 ml 450 ml Bladder Scan Volume Amount 432 ml # Bowel Movements 1 1 Result Diagram: 01/28/17 0611 01/28/17 0611 Objective Remarks GENERAL: This is a well-nourished, well-developed patient, in no apparent distress. CARDIOVASCULAR: Regular rate and regular rhythm without murmurs, gallops, or rubs. RESPIRATORY: Clear to auscultation. Breath sounds equal bilaterally. No wheezes , rales, or rhonchi. GASTROINTESTINAL: Abdomen soft, non-tender, nondistended. Normal, active bowel sounds- PEG in place MUSCULOSKELETAL: Extremities without clubbing, cyanosis, or edema. NEURO: Alert & Oriented x4 to person, place, time, situation. Moves all ext x4 Procedures 12/11- EGD- esophagitis, gastritis, duodenitis PEG placement Medications and IVs Current Medications Sodium Chloride (NS 1000 ml Inj) 1,000 ml @ 75 mls/hr [id number] IV Last administered on 12/06/16 05:59; Start 12/05/16 at 18:00; Stop 12/06/16 at 12:03 ; Status DC IV Flush (NS Flush) 2 ml UNSCH PRN FLUSH FLUSH AFTER USING IV ACCESS; Start at 17:00 IV Flush (NS Flush) 2 ml BID FLUSH Last administered on 01/28/17 21:00; Start 12/05/16 at 21:00 Ondansetron HCl (Zofran Inj) 4 mg Q6H PRN IVP NAUSEA OR VOMITING; Start at 18:00 Bisacodyl (Dulcolax Supp) 10 mg DAILY PRN [place] CONSTIPATION; Start 12/05/16 at 18 :00 Docusate Sodium (Colace) 100 mg Q12H PO Last administered on 01/25/17 05:30; Start 12/05/16 at 18:00; Stop 01/25/17 at 13:01; Status DC Naloxone HCl (Narcan Inj) 0.4 mg UNSCH PRN IV SEE LABEL COMMENTS; Start at 17:00 Phenytoin (Dilantin) 300 mg BID PO Last administered on 12/07/16 20:57; Start 12/05/16 at 21:00; Stop 12/08/16 at 10:47; Status DC Terazosin HCl (Hytrin) 1 mg HS PO ; Start 12/05/16 at 21:00; Stop 12/05/16 at 21 :00; Status DC Enalaprilat (Vasotec Inj) 2.5 mg Q6H PRN IV PUSH SBP>160, DBP>90 Last administered on 12/24/16 07:19; Start 12/05/16 at 18:00; Stop 12/25/16 at 14:48; Status DC Ferrous Sulfate (Ferrous Sulfate Liq) 300 mg DAILY PO Last administered on 08:58; Start 12/06/16 at 09:00 Doxazosin Mesylate (Cardura) 8 mg HS PO Last administered on 12/25/16 21:22; Start 12/05/16 at 21:00; Stop 12/26/16 at 18:46; Status DC Atorvastatin Calcium (Lipitor) 40 mg HS PO Last administered on 01/29/17 00:20 ; Start 12/05/16 at 21:00 Furosemide (Lasix Liq) 40 mg DAILY TUBE Last administered on 12/20/16 08:50; Start 12/06/16 at 09:00; Status Hold Senna/Docusate Sodium (Jacinda-Colace) 2 tab BID PRN PO CONSTIPATION Last administered on 01/21/17 11:08; Start 12/05/16 at 19:45 Lactulose (Lactulose Liq) 30 ml TID PRN PO CONSTIPATION Last administered on 09:58; Start 12/05/16 at 19:45 Bisacodyl (Dulcolax Supp) 10 mg DAILY PRN [place] CONSTIPATION; Start 12/05/16 at 19 :45; Status Cancel Magnesium Hydroxide (Milk Of Magnesia Liq) 30 ml Q6H PRN PO CONSTIPATION Last administered on 01/19/17 09:58; Start 12/05/16 at 19:45 Furosemide 20 mg 20 mg ONCE ONCE IV PUSH ; Start 12/06/16 at 07:00; Stop at 07:01; Status DC Sodium Chloride (NS 250 ml Inj) 250 ml @ 15 mls/hr ONCE ONCE IV Last administered on 12/06/16 11:00; Start 12/06/16 at 08:45; Stop 12/07/16 at 01:24 ; Status DC Acetaminophen (Tylenol) 650 mg Q4H PRN PO SEE LABEL COMMENTS; Start 12/06/16 at 08:45; Stop 12/06/16 at 12:46; Status DC Diphenhydramine HCl (Benadryl) 25 mg Q4H PRN PO SEE LABEL COMMENTS; Start 12/06 at 08:45; Stop 12/06/16 at 12:46; Status DC Furosemide (Lasix Inj) 20 mg ONCE ONCE IV ; Start 12/06/16 at 08:45; Stop 12/06 at 08:46; Status DC Prednisone 20 mg 20 mg ONCE ONCE PO Last administered on 12/06/16 15:36; Start 12/06/16 at 13:00; Stop 12/06/16 at 13:01; Status DC Sodium Chloride (NS 1000 ml Inj) 1,000 ml @ 0 mls/hr Q0M PRN IV For Prime & Rinse Back Last administered on 12/12/16 09:33; Start 12/06/16 at 12:11 Heparin Sodium (Porcine) 8000 units 8,000 units UNSCH PRN IVF WITH DIALYSIS; Start 12/06/16 at 12:15 Sodium Chloride 1,000 ml @ 200 mls/hr Q5H PRN IV WITH DIALYSIS; Start 12/06/16 at 12:11 Sodium Chloride (NS 1000 ml Inj) 1,000 ml @ 0 mls/hr Q0M PRN IV WITH DIALYSIS; Start 12/06/16 at 12:11 Mannitol (Mannitol Inj) 12.5 gm UNSCH PRN IV WITH DIALYSIS; Start 12/06/16 at 12:15 Albumin Human (Albumin 25% Inj) 25 gm UNSCH PRN IV WITH DIALYSIS; Start at 12:15 IV Flush (NS Flush) 5 ml UNSCH PRN IVF WITH DIALYSIS; Start 12/06/16 at 12:15 Heparin Sodium (Porcine) (Heparin Inj) UNSCH PRN .XX WITH DIALYSIS Last administered on 12/14/16 16:39; Start 12/06/16 at 12:15 Gentamicin Sulfate (Gentamicin (Dialysis) Inj) 20 mg UNSCH PRN IV WITH DIALYSIS Last administered on 12/14/16 16:39; Start 12/06/16 at 12:15 Ondansetron HCl (Zofran Inj) 4 mg UNSCH PRN IV WITH DIALYSIS; Start 12/06/16 at 12:15 Acetaminophen (Tylenol) 650 mg UNSCH PRN PO for headach, pain, temp > 101F Last administered on 12/14/16 07:54; Start 12/06/16 at 12:15 Diphenhydramine HCl (Benadryl) 25 mg UNSCH PRN PO for hives/itching/anaphylaxis ; Start 12/06/16 at 12:15 Nitroglycerin (Nitrostat Sl) 0.4 mg UNSCH PRN SL CHEST PAIN; Start 12/06/16 at 12:15 Clonidine (Catapres) 0.1 mg UNSCH PRN PO SYS BP GREATER THAN 160 MMHG Last administered on 12/19/16 06:27; Start 12/06/16 at 12:15 Epoetin Blanco (Epogen Inj) 10,000 units UNSCH PRN IV WITH DIALYSIS Last administered on 12/14/16 16:39; Start 12/06/16 at 12:15 Gelatin (Gelfoam 12 Mm/7 Mm Top) 1 foam UNSCH PRN TOP SEE LABEL COMMENTS; Start 12/06/16 at 12:15 Furosemide (Lasix Inj) 20 mg ONCE ONCE IV Last administered on 12/07/16 00:18 ; Start 12/07/16 at 00:30; Stop 12/07/16 at 00:31; Status DC Megestrol Acetate (Megace Liq) 400 mg ONCE ONCE PO Last administered on 18:19; Start 12/07/16 at 14:00; Stop 12/07/16 at 14:01; Status DC Megestrol Acetate (Megace Liq) 400 mg DAILY PO Last administered on 01/28/17 08 :59; Start 12/08/16 at 09:00 Heparin Sodium (Porcine) (Heparin Inj) 5,000 units Q12HR SQ Last administered on 01/13/17 09:37; Start 12/08/16 at 21:00; Status Hold Phenytoin 300 mg 300 mg Q12HR PO Last administered on 01/29/17 00:20; Start at 21:00 Iron Sucrose 100 mg/Sodium Chloride 105 ml @ 105 mls/hr DAILY IV Last administered on 12/09/16 10:24; Start 12/09/16 at 09:00; Stop 12/11/16 at 09:59 ; Status DC Cefazolin Sodium/ Sodium Chloride (Ancef Inj/NS Inj) 100 ml @ 200 mls/hr [employer] IV ; Start 12/10/16 at 13:30; Stop 12/13/16 at 13:29; Status DC Cefazolin Sodium (Ancef Inj) 1,000 mg STK-MED ONCE IV Last administered on 12/11 10:37; Start 12/11/16 at 10:37; Stop 12/11/16 at 11:05; Status DC Propofol (Diprivan 200 Mg/20 ml Inj) 150 mg STK-MED ONCE IV ; Start 12/11/16 at 10:40; Stop 12/11/16 at 11:10; Status DC Levofloxacin (Levaquin) 250 mg Q48H PO Last administered on 12/17/16 16:45; Start 12/11/16 at 16:00; Stop 12/18/16 at 09:37; Status DC Phenylephrine HCl (Neosynephrine/ NS 1000 Mcg/10ml Syr) 100 mcg STK-MED ONCE IV ; Start 12/11/16 at 10:45; Stop 12/13/16 at 13:03; Status DC Fluconazole 100 mg 100 mg DAILY PO Last administered on 12/22/16 08:03; Start 12/16/16 at 11:30; Stop 12/22/16 at 12:06; Status DC Pharmacy Profile Note ([facility]) 0 ml @ 0 mls/hr UNSCH OTHER ; Start 12/16/16 at 11:30; Stop 12/16/16 at 14:18; Status DC Potassium Phosphate (K-Phos) 500 mg ONCE ONCE PO Last administered on 10:08; Start 12/18/16 at 09:00; Stop 12/18/16 at 09:01; Status DC Amlodipine Besylate (Norvasc) 5 mg DAILY PO Last administered on 12/19/16 08: 45; Start 12/18/16 at 11:00; Stop 12/19/16 at 09:45; Status DC Fluticasone Propionate (Flonase Evan Spr) 2 spray DAILY EACH NARE Last administered on 01/28/17 08:59; Start 12/18/16 at 12:00 Potassium Chloride (KCl) 30 meq ONCE ONCE PO Last administered on 12/19/16 11 :33; Start 12/19/16 at 09:00; Stop 12/19/16 at 10:37; Status DC Nifedipine (Procardia Xl) 30 mg DAILY PO Last administered on 12/24/16 08:37; Start 12/20/16 at 09:00; Stop 12/24/16 at 15:25; Status DC Calcium Acetate 667 mg 667 mg TID PO Last administered on 01/06/17 09:33; Start 12/20/16 at 09:00; Stop 01/06/17 at 12:37; Status DC Sodium Chloride 1,000 ml @ 75 mls/hr [id number] IV ; Start 12/20/16 at 09:00; Stop 12/20/16 at 09:47; Status DC Sodium Chloride (1/2 NS 1000 ml Inj) 1,000 ml @ 65 mls/hr [id number] IV Last administered on 12/24/16 21:10; Start 12/20/16 at 10:00; Status Hold Potassium Chloride (KCl) 30 meq ONCE ONCE PO Last administered on 12/23/16 12: 04; Start 12/23/16 at 10:45; Stop 12/23/16 at 10:46; Status DC Nifedipine (Procardia Xl) 60 mg DAILY PO Last administered on 12/26/16 09:19; Start 12/25/16 at 09:00; Stop 12/26/16 at 18:46; Status DC Bumetanide (Bumex Inj) 1 mg ONCE ONCE IV PUSH Last administered on 12/25/16 10 :41; Start 12/25/16 at 10:15; Stop 12/25/16 at 10:22; Status DC Doxazosin Mesylate (Cardura) 2 mg DAILY PO Last administered on 12/26/16 09:20 ; Start 12/25/16 at 10:15; Stop 12/26/16 at 18:25; Status DC Pantoprazole Sodium (Protonix Inj) 40 mg Q24H IV PUSH ; Start 12/25/16 at 10:15; Stop 12/25/16 at 10:17; Status DC Pantoprazole Sodium (Protonix) 40 mg DAILY PO Last administered on 01/28/17 08: 58; Start 12/25/16 at 10:30 Miscellaneous Information Patient in critical care unit? Ass... [id number] .XX Last administered on 12/25/16 22:30; Start 12/25/16 at 22:30 Chlorhexidine Gluconate (Chlorhexidine 2% Cloth) 3 pack DAILY@04 TOPICAL Last administered on 12/30/16 04:00; Start 12/26/16 at 04:00; Stop 12/30/16 at 04:01 ; Status DC Chlorhexidine Gluconate (Chlorhexidine 2% Cloth) 3 pack UNSCH PRN TOPICAL HYGIENIC CARE; Start 12/25/16 at 22:30; Stop 12/30/16 at 22:25; Status DC Potassium Chloride (KCl Powder) 40 meq NOW ONCE PEG Last administered on 17:00; Start 12/26/16 at 17:00; Stop 12/26/16 at 17:01; Status DC Doxazosin Mesylate (Cardura) 4 mg DAILY PO ; Start 12/27/16 at 09:00; Stop at 09:00; Status DC Doxazosin Mesylate (Cardura) 10 mg HS PO Last administered on 01/29/17 00:21; Start 12/26/16 at 21:00 Nifedipine (Procardia Xl) 90 mg DAILY PO Last administered on 01/28/17 08:58; Start 12/27/16 at 09:00 Miscellaneous (Pill Splitter) 1 ea UNSCH PRN OTHER SEE LABEL COMMENTS Last administered on 12/27/16 10:33; Start 12/26/16 at 19:00 Doxazosin Mesylate (Cardura) 2 mg DAILY PO Last administered on 12/28/16 11:33 ; Start 12/28/16 at 10:00; Stop 12/28/16 at 16:56; Status DC Albuterol/ Ipratropium (Duoneb Neb) 1 ampule Q6HR NEB NEB Last administered on 01/01/17 15:35; Start 12/28/16 at 16:00; Stop 01/01/17 at 16:00; Status DC Albuterol/ Ipratropium (Duoneb Neb) 1 ampule Q2HR NEB PRN NEB SHORTNESS OF BREATH Last administered on 01/22/17 19:40; Start 12/28/16 at 13:00 Doxazosin Mesylate (Cardura) 4 mg DAILY PO ; Start 12/29/16 at 09:00; Stop at 09:00; Status DC Doxazosin Mesylate (Cardura) 4 mg DAILY PO Last administered on 01/26/17 09:30 ; Start 12/29/16 at 09:00; Stop 01/26/17 at 12:42; Status DC Potassium Chloride (KCl) 20 meq ONCE ONCE PO Last administered on 12/29/16 12: 44; Start 12/29/16 at 10:00; Stop 12/29/16 at 10:01; Status DC Polyethylene Glycol/ Electrolytes (Colyte Liq) 4,000 ml ONCE ONCE PO Last administered on 12/31/16 18:33; Start 12/31/16 at 16:00; Stop 12/31/16 at 16:01 ; Status DC Polyethylene Glycol/ Electrolytes (Colyte Liq) 4,000 ml ONCE ONCE PO ; Start at 16:00; Stop 12/31/16 at 16:00; Status DC Propofol (Diprivan 200 Mg/20 ml Inj) 350 mg STK-MED ONCE IV ; Start 01/01/17 at 11:38; Stop 01/01/17 at 12:24; Status DC Polyethylene Glycol/ Electrolytes (Colyte Liq) 4,000 ml ONCE ONCE PO Last administered on 01/01/17 20:10; Start 01/01/17 at 18:30; Stop 01/01/17 at 18:31 ; Status DC Propofol (Diprivan 200 Mg/20 ml Inj) 230 mg STK-MED ONCE IV ; Start 01/02/17 at 11:11; Stop 01/02/17 at 11:12; Status DC Phenylephrine HCl (Neosynephrine/ NS 1000 Mcg/10ml Syr) 1,000 mcg STK-MED ONCE IV ; Start 01/02/17 at 12:00; Stop 01/03/17 at 13:35; Status DC Potassium Chloride (KCl) 30 meq ONCE ONCE PO Last administered on 01/03/17 17 :50; Start 01/03/17 at 15:15; Stop 01/03/17 at 15:16; Status DC Clonidine (Catapres) 0.1 mg Q8HR PO Last administered on 01/29/17 06:49; Start 01/03/17 at 22:00 Potassium Chloride 30 meq 30 meq ONCE ONCE PO Last administered on 01/04/17 10:38; Start 01/04/17 at 09:45; Stop 01/04/17 at 09:47; Status DC Ceftriaxone Sodium 1000 mg/ Sodium Chloride 100 ml @ 200 mls/hr Q24H IV Last administered on 01/14/17 11:41; Start 01/05/17 at 11:00; Stop 01/14/17 at 20:33 ; Status DC Fluconazole/ Sodium Chloride (Diflucan 200 Mg Premix Bag) 100 ml @ 100 mls/hr Q24H IV Last administered on 01/25/17 10:12; Start 01/05/17 at 11:00; Stop 01/25 at 13:01; Status DC Acetaminophen/ Hydrocodone Bitart ([place] 5-325 Mg) 1 tab ONCE ONCE PO Last administered on 01/05/17 22:36; Start 01/05/17 at 20:45; Stop 01/05/17 at 20:50 ; Status DC Lidocaine HCl (Xylocaine 2% Jelly) 5 ml STK-MED ONCE TOPICAL Last administered on 01/10/17 08:04; Start 01/10/17 at 08:04; Stop 01/10/17 at 09:55; Status DC Furosemide (Lasix Inj) 40 mg ONCE ONCE IV PUSH Last administered on 01/13/17 05:15; Start 01/13/17 at 05:15; Stop 01/13/17 at 05:16; Status DC Morphine Sulfate (Morphine Inj) 2 mg Q3H PRN IV PUSH pain 1-10 Last administered on 01/27/17 08:31; Start 01/13/17 at 05:15 Lorazepam (Ativan Inj) 1 mg Q4H PRN IV PUSH comfort measure/anxiety Last administered on 01/13/17 09:43; Start 01/13/17 at 05:15 Furosemide (Lasix Inj) 20 mg Q6HR PRN IV PUSH pulmonary congestion; Start 01/13 at 05:15 Lidocaine/ Epinephrine (Xylocaine-Epi 1%-1:100,000 Inj) 20 ml STK-MED ONCE .ROUTE Last administered on 01/14/17 11:04; Start 01/14/17 at 11:04; Stop at 11:05; Status DC Magnesium Hydroxide (Milk Of Magnesia Liq) 30 ml BID PRN PO Constipation Last administered on 01/28/17 11:44; Start 01/19/17 at 10:45 Alprazolam (Xanax) 0.25 mg ONCE ONCE PO Last administered on 01/23/17 22:39; Start 01/23/17 at 18:15; Stop 01/23/17 at 18:16; Status DC Alprazolam (Xanax) 0.5 mg ONCE ONCE PO Last administered on 01/27/17 09:06; Start 01/27/17 at 09:00; Stop 01/27/17 at 09:01; Status DC Calcium Carbonate (Tums Chew) 500 mg Q6H PRN CHEW DYSPEPSIA OR HEARTBURN; Start 5/8/17 at 15:00 Calcium Carbonate (Tums Chew) 500 mg ONCE ONCE CHEW Last administered on t 09:07; Start 01/27/17 at 09:00; Stop 01/27/17 at 09:04; Status DC Date of Insertion: January 24, 2017 A/P Assessment and Plan A/P Squamous cell lung cancer: Currently undergoing radiation therapy. Supplemental oxygen as needed. Nebs as needed. Oncology and Pulmonology on board. anemia with positive hemoccult: Likely secondary to the above. Hemoglobin stable. No signs of bleeding. Monitor CBC. Transfuse if indicated. s/p EGD with gastritis and esophagitis- continue PPI Acute renal failure: Creatinine previously 0.77 on 11/02/16, creatinine acutely worsened, but has been slowly returning to normal. Monitor BMPs. Generalized weakness: Secondary to the above. Continue PT. Nisa UTI: S/P treatment with fluconazole. 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 Maintain [place] for now and follow up with urology. Continue doxazosin. Dysphagia and malnutrition: Continue mechanical soft diet per speech therapy. Tolerating tube feedings. Continue megace for appetite stimulation. Intermittent Diarrhea and Constipation: Held scheduled stool softeners for now. Check stool studies if further episodes. Diarrhea improved. Hypertension: controlled with orthostatic dizziness. Decreased doxazosin. Continue nifedipine and clonidine for now. Orthostatic dizziness: Patient complains of dizziness when sitting. + orthostatic BP. Adjust BP meds as indicated. Continue PT. Hiccups/Dyspepsia: started on Tums 01/27. Improved. Continue Tums prn. DVT prophylaxis: SCD's Discharge Planning dc planning to SNF in progress. Regina Garcia MD January 29, 2017 08:13
[2017-01-29] MEDS: MEGESTROL ACETATE SUSP 400 MG/10 ML CUP PO SCH (09:00)
[2017-01-29] MEDS: PANTOPRAZOLE SOD 40 MG DELAYED RELEASE TAB PO SCH (09:00)
[2017-01-29] MEDS: SODIUM CHLORIDE 0.9% FLUSH 5 ML FLUSH FLUSH SCH ×2 (09:00→21:00)
[2017-01-29] MEDS: NIFEdipine 90 MG SUSTAINED RELEASE TAB PO SCH (09:00)
[2017-01-29] MEDS: MAGNESIUM HYDROXIDE SUSP 30 ML CUP PO PRN (09:00)
[2017-01-29] MEDS: FERROUS SULFATE 300 MG /5ML UDC PO SCH (09:00)
[2017-01-29] MEDS: FLUTICASONE PROPIONATE 50 MCG/ACT 16 GM NASAL SPRAY EACH NARE SCH (09:01)
[2017-01-29] MEDS: CALCIUM CARBONATE 500 MG CHEWABLE TAB CHEW PRN (15:20)
--- NOTE | 2017-01-29 19:00 | HHI.PR ---
Subjective Remarks . Afebrile. Tolerates PO, good appetite On 3LNC No fever Had radiation today Breathing better Objective Vital Signs Vital Signs Date Time Temp Pulse Resp B/P Pulse Ox O2 Delivery O2 Flow Rate FiO2 01/29/17 15:30 97.9 91 20 110/60 96 01/29/17 14:42 104 01/29/17 12:00 97.7 74 18 101/62 94 01/29/17 09:09 Nasal Cannula 2.00 01/29/17 08:00 97.5 71 20 96/55 93 01/29/17 07:59 95 Nasal Cannula 2.00 01/29/17 04:35 99.5 108 22 120/67 96 01/29/17 00:53 Nasal Cannula 2.00 01/29/17 00:23 99.7 113 22 114/63 95 01/28/17 20:04 97.2 101 22 113/57 95 I/O 01/28/17 01/28/17 01/28/17 01/29/17 01/29/17 01/29/17 07:00 15:00 23:00 07:00 15:00 23:00 Intake Total 1326 ml 0 ml 1110 ml 480 ml 360 ml Output Total 550 ml 850 ml 450 ml 700 ml Balance 776 ml 0 ml 260 ml 30 ml -340 ml Intake Oral 240 ml 1110 ml 480 ml 360 ml IV Total 0 ml Tube Feeding 846 ml Other 240 ml Output Urine Total 550 ml 850 ml 450 ml 700 ml Bladder Scan Volume Amount 432 ml 432 ml 432 ml # Bowel Movements 1 1 2 Result Diagram: 01/28/17 0611 01/28/17 0611 Objective Remarks GENERAL: Patient is lying in bed in NAD SKIN: Warm and dry. HEAD: Normocephalic. EYES: No scleral icterus. No injection or drainage. NECK: Supple, trachea midline. No JVD or lymphadenopathy. CARDIOVASCULAR: Regular rate and rhythm without murmurs, gallops, or rubs. RESPIRATORY: Breath sounds equal bilaterally. No accessory muscle use. GASTROINTESTINAL: Abdomen soft, non-tender, nondistended. MUSCULOSKELETAL: No cyanosis, or edema. BACK: Nontender without obvious deformity. No CVA tenderness. 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. Monitor renal function, , Supplement 02 to keep sat >90% Aerosol banner Works with PT Valeriy Wilkins MD January 29, 2017 19:00
[2017-01-29] MEDS: DOCUSATE SODIUM 50 MG/SENNA 8.6 MG TAB PO PRN (23:19)
[2017-01-30] VITALS (7 sets, daily range): BP systolic 97–126; BP diastolic 55–66; PULSE 88–102; RESP 16–18; TEMP 97.2–98.6; O2SAT 96–99
[2017-01-30] MEDS: cloNIDine HCL 0.1 MG TAB PO SCH ×3 (06:52→21:22)
--- NOTE | 2017-01-30 07:57 | HHI.PR ---
Subjective Remarks resting comfortably with no distress. no abdominal pain. no sob. d/w the RN; questionable PEG dislodgement over night. Objective Vitals Vital Signs Date Time Temp Pulse Resp B/P Pulse Ox O2 Delivery O2 Flow Rate FiO2 01/30/17 04:00 98.5 99 16 108/58 96 01/30/17 00:00 98.2 102 17 126/65 96 01/29/17 23:52 Nasal Cannula 2.00 01/29/17 20:00 97.6 76 17 119/61 96 01/29/17 15:30 97.9 91 20 110/60 96 01/29/17 14:42 104 01/29/17 12:00 97.7 74 18 101/62 94 01/29/17 09:09 Nasal Cannula 2.00 01/29/17 08:00 97.5 71 20 96/55 93 01/29/17 07:59 95 Nasal Cannula 2.00 I/O 01/29/17 01/29/17 01/29/17 01/30/17 01/30/17 01/30/17 07:00 15:00 23:00 07:00 15:00 23:00 Intake Total 480 ml 360 ml Output Total 450 ml 700 ml 350 ml 800 ml Balance 30 ml -340 ml -350 ml -800 ml Intake Oral 480 ml 360 ml Output Urine Total 450 ml 700 ml 350 ml 800 ml Bladder Scan Volume Amount 432 ml 432 ml 432 ml # Bowel Movements 1 2 Result Diagram: 01/28/17 0611 01/28/17 0611 Imaging Last Impressions Central Venous Line 01/14/17 1150 Signed Impressions: Service Date/Time: Saturday, January 14, 2017 11:50 - CONCLUSION: Uncomplicated Permcath removal. Beto Perry MD Chest X-Ray 01/14/17 0600 Signed Impressions: Service Date/Time: Saturday, January 14, 2017 05:43 - CONCLUSION: The right lung is grossly clear. No change in the complete opacification of the left hemithorax. Tono Vazquez MD Lower Extremity Ultrasound 01/06/17 0000 Signed Impressions: Service Date/Time: Friday, January 06, 2017 09:02 - CONCLUSION: Normal examination. Shawn Reyes MD Upper Extremity Ultrasound 12/11/16 1506 Signed Impressions: Service Date/Time: Sunday, December 11, 2016 18:00 - CONCLUSION: Superficial thrombophlebitis, extensive edema and nonspecific fluid collections in the subcutaneous tissues. Shawn Reyes MD Head CT 12/11/16 0000 Signed Impressions: Service Date/Time: Sunday, December 11, 2016 20:00 - CONCLUSION: Slight atrophic and small vessel ischemic changes without any evidence for acute hemorrhage or mass effect. Shawn Reyes MD Renal Ultrasound 12/09/16 0000 Signed Impressions: Service Date/Time: Friday, December 09, 2016 15:16 - CONCLUSION: 1. 8.4 cm mass lesion at the base of the bladder. This may represent an intrinsic mass of the bladder versus a prominent anterior lobe of the prostate. 2. Otherwise, urinary bladder is partially decompressed with a Lipscomb catheter. 3. Both kidneys are sonographically normal. Roby Horta MD Objective Remarks GENERAL: This is a well-nourished, well-developed patient, in no apparent distress. CARDIOVASCULAR: Regular rate and regular rhythm without murmurs, gallops, or rubs. RESPIRATORY: Clear to auscultation. Breath sounds equal bilaterally. No wheezes , rales, or rhonchi. GASTROINTESTINAL: Abdomen soft, non-tender, nondistended. Normal, active bowel sounds- PEG in place MUSCULOSKELETAL: Extremities without clubbing, cyanosis, or edema. NEURO: Alert & Oriented x4 to person, place, time, situation. Moves all ext x4 Procedures 12/11- EGD- esophagitis, gastritis, duodenitis PEG placement Medications and IVs Current Medications Sodium Chloride (NS 1000 ml Inj) 1,000 ml @ 75 mls/hr [id number] IV Last administered on 12/06/16 05:59; Start 12/05/16 at 18:00; Stop 12/06/16 at 12:03 ; Status DC IV Flush (NS Flush) 2 ml UNSCH PRN FLUSH FLUSH AFTER USING IV ACCESS; Start at 17:00 IV Flush (NS Flush) 2 ml BID FLUSH Last administered on 01/29/17 21:00; Start 12/05/16 at 21:00 Ondansetron HCl (Zofran Inj) 4 mg Q6H PRN IVP NAUSEA OR VOMITING; Start at 18:00 Bisacodyl (Dulcolax Supp) 10 mg DAILY PRN [place] CONSTIPATION; Start 12/05/16 at 18 :00 Docusate Sodium (Colace) 100 mg Q12H PO Last administered on 01/25/17 05:30; Start 12/05/16 at 18:00; Stop 01/25/17 at 13:01; Status DC Naloxone HCl (Narcan Inj) 0.4 mg UNSCH PRN IV SEE LABEL COMMENTS; Start at 17:00 Phenytoin (Dilantin) 300 mg BID PO Last administered on 12/07/16 20:57; Start 12/05/16 at 21:00; Stop 12/08/16 at 10:47; Status DC Terazosin HCl (Hytrin) 1 mg HS PO ; Start 12/05/16 at 21:00; Stop 12/05/16 at 21 :00; Status DC Enalaprilat (Vasotec Inj) 2.5 mg Q6H PRN IV PUSH SBP>160, DBP>90 Last administered on 12/24/16 07:19; Start 12/05/16 at 18:00; Stop 12/25/16 at 14:48; Status DC Ferrous Sulfate (Ferrous Sulfate Liq) 300 mg DAILY PO Last administered on 01/29 09:00; Start 12/06/16 at 09:00 Doxazosin Mesylate (Cardura) 8 mg HS PO Last administered on 12/25/16 21:22; Start 12/05/16 at 21:00; Stop 12/26/16 at 18:46; Status DC Atorvastatin Calcium (Lipitor) 40 mg HS PO Last administered on 01/29/17 23:20 ; Start 12/05/16 at 21:00 Furosemide (Lasix Liq) 40 mg DAILY TUBE Last administered on 12/20/16 08:50; Start 12/06/16 at 09:00; Status Hold Senna/Docusate Sodium (Jacinda-Colace) 2 tab BID PRN PO CONSTIPATION Last administered on 01/29/17 23:19; Start 12/05/16 at 19:45 Lactulose (Lactulose Liq) 30 ml TID PRN PO CONSTIPATION Last administered on 09:58; Start 12/05/16 at 19:45 Bisacodyl (Dulcolax Supp) 10 mg DAILY PRN [place] CONSTIPATION; Start 12/05/16 at 19 :45; Status Cancel Magnesium Hydroxide (Milk Of Magnmarquita Liq) 30 ml Q6H PRN PO CONSTIPATION Last administered on 01/29/17 09:00; Start 12/05/16 at 19:45 Furosemide 20 mg 20 mg ONCE ONCE IV PUSH ; Start 12/06/16 at 07:00; Stop at 07:01; Status DC Sodium Chloride (NS 250 ml Inj) 250 ml @ 15 mls/hr ONCE ONCE IV Last administered on 12/06/16 11:00; Start 12/06/16 at 08:45; Stop 12/07/16 at 01:24 ; Status DC Acetaminophen (Tylenol) 650 mg Q4H PRN PO SEE LABEL COMMENTS; Start 12/06/16 at 08:45; Stop 12/06/16 at 12:46; Status DC Diphenhydramine HCl (Benadryl) 25 mg Q4H PRN PO SEE LABEL COMMENTS; Start 12/06 at 08:45; Stop 12/06/16 at 12:46; Status DC Furosemide (Lasix Inj) 20 mg ONCE ONCE IV ; Start 12/06/16 at 08:45; Stop 12/06 at 08:46; Status DC Prednisone 20 mg 20 mg ONCE ONCE PO Last administered on 12/06/16 15:36; Start 12/06/16 at 13:00; Stop 12/06/16 at 13:01; Status DC Sodium Chloride (NS 1000 ml Inj) 1,000 ml @ 0 mls/hr Q0M PRN IV For Prime & Rinse Back Last administered on 12/12/16 09:33; Start 12/06/16 at 12:11 Heparin Sodium (Porcine) 8000 units 8,000 units UNSCH PRN IVF WITH DIALYSIS; Start 12/06/16 at 12:15 Sodium Chloride 1,000 ml @ 200 mls/hr Q5H PRN IV WITH DIALYSIS; Start 12/06/16 at 12:11 Sodium Chloride (NS 1000 ml Inj) 1,000 ml @ 0 mls/hr Q0M PRN IV WITH DIALYSIS; Start 12/06/16 at 12:11 Mannitol (Mannitol Inj) 12.5 gm UNSCH PRN IV WITH DIALYSIS; Start 12/06/16 at 12:15 Albumin Human (Albumin 25% Inj) 25 gm UNSCH PRN IV WITH DIALYSIS; Start at 12:15 IV Flush (NS Flush) 5 ml UNSCH PRN IVF WITH DIALYSIS; Start 12/06/16 at 12:15 Heparin Sodium (Porcine) (Heparin Inj) UNSCH PRN .XX WITH DIALYSIS Last administered on 12/14/16 16:39; Start 12/06/16 at 12:15 Gentamicin Sulfate (Gentamicin (Dialysis) Inj) 20 mg UNSCH PRN IV WITH DIALYSIS Last administered on 12/14/16 16:39; Start 12/06/16 at 12:15 Ondansetron HCl (Zofran Inj) 4 mg UNSCH PRN IV WITH DIALYSIS; Start 12/06/16 at 12:15 Acetaminophen (Tylenol) 650 mg UNSCH PRN PO for headach, pain, temp > 101F Last administered on 12/14/16 07:54; Start 12/06/16 at 12:15 Diphenhydramine HCl (Benadryl) 25 mg UNSCH PRN PO for hives/itching/anaphylaxis ; Start 12/06/16 at 12:15 Nitroglycerin (Nitrostat Sl) 0.4 mg UNSCH PRN SL CHEST PAIN; Start 12/06/16 at 12:15 Clonidine (Catapres) 0.1 mg UNSCH PRN PO SYS BP GREATER THAN 160 MMHG Last administered on 12/19/16 06:27; Start 12/06/16 at 12:15 Epoetin Blanco (Epogen Inj) 10,000 units UNSCH PRN IV WITH DIALYSIS Last administered on 12/14/16 16:39; Start 12/06/16 at 12:15 Gelatin (Gelfoam 12 Mm/7 Mm Top) 1 foam UNSCH PRN TOP SEE LABEL COMMENTS; Start 12/06/16 at 12:15 Furosemide (Lasix Inj) 20 mg ONCE ONCE IV Last administered on 12/07/16 00:18 ; Start 12/07/16 at 00:30; Stop 12/07/16 at 00:31; Status DC Megestrol Acetate (Megace Liq) 400 mg ONCE ONCE PO Last administered on 18:19; Start 12/07/16 at 14:00; Stop 12/07/16 at 14:01; Status DC Megestrol Acetate (Megace Liq) 400 mg DAILY PO Last administered on 01/29/17 09:00; Start 12/08/16 at 09:00 Heparin Sodium (Porcine) (Heparin Inj) 5,000 units Q12HR SQ Last administered on 01/13/17 09:37; Start 12/08/16 at 21:00; Status Hold Phenytoin 300 mg 300 mg Q12HR PO Last administered on 01/29/17 23:20; Start at 21:00 Iron Sucrose 100 mg/Sodium Chloride 105 ml @ 105 mls/hr DAILY IV Last administered on 12/09/16 10:24; Start 12/09/16 at 09:00; Stop 12/11/16 at 09:59 ; Status DC Cefazolin Sodium/ Sodium Chloride (Ancef Inj/NS Inj) 100 ml @ 200 mls/hr CL[employer]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 IV ; Start 12/10/16 at 13:30; Stop 12/13/16 at 13:29; Status DC Cefazolin Sodium (Ancef Inj) 1,000 mg STK-MED ONCE IV Last administered on 12/11 10:37; Start 12/11/16 at 10:37; Stop 12/11/16 at 11:05; Status DC Propofol (Diprivan 200 Mg/20 ml Inj) 150 mg STK-MED ONCE IV ; Start 12/11/16 at 10:40; Stop 12/11/16 at 11:10; Status DC Levofloxacin (Levaquin) 250 mg Q48H PO Last administered on 12/17/16 16:45; Start 12/11/16 at 16:00; Stop 12/18/16 at 09:37; Status DC Phenylephrine HCl (Neosynephrine/ NS 1000 Mcg/10ml Syr) 100 mcg STK-MED ONCE IV ; Start 12/11/16 at 10:45; Stop 12/13/16 at 13:03; Status DC Fluconazole 100 mg 100 mg DAILY PO Last administered on 12/22/16 08:03; Start 12/16/16 at 11:30; Stop 12/22/16 at 12:06; Status DC Pharmacy Profile Note ([facility]) 0 ml @ 0 mls/hr UNSCH OTHER ; Start 12/16/16 at 11:30; Stop 12/16/16 at 14:18; Status DC Potassium Phosphate (K-Phos) 500 mg ONCE ONCE PO Last administered on 10:08; Start 12/18/16 at 09:00; Stop 12/18/16 at 09:01; Status DC Amlodipine Besylate (Norvasc) 5 mg DAILY PO Last administered on 12/19/16 08: 45; Start 12/18/16 at 11:00; Stop 12/19/16 at 09:45; Status DC Fluticasone Propionate (Flonase Evan Spr) 2 spray DAILY EACH NARE Last administered on 01/29/17 09:01; Start 12/18/16 at 12:00 Potassium Chloride (KCl) 30 meq ONCE ONCE PO Last administered on 12/19/16 11 :33; Start 12/19/16 at 09:00; Stop 12/19/16 at 10:37; Status DC Nifedipine (Procardia Xl) 30 mg DAILY PO Last administered on 12/24/16 08:37; Start 12/20/16 at 09:00; Stop 12/24/16 at 15:25; Status DC Calcium Acetate 667 mg 667 mg TID PO Last administered on 01/06/17 09:33; Start 12/20/16 at 09:00; Stop 01/06/17 at 12:37; Status DC Sodium Chloride 1,000 ml @ 75 mls/hr [id number] IV ; Start 12/20/16 at 09:00; Stop 12/20/16 at 09:47; Status DC Sodium Chloride (1/2 NS 1000 ml Inj) 1,000 ml @ 65 mls/hr [id number] IV Last administered on 12/24/16 21:10; Start 12/20/16 at 10:00; Status Hold Potassium Chloride (KCl) 30 meq ONCE ONCE PO Last administered on 12/23/16 12: 04; Start 12/23/16 at 10:45; Stop 12/23/16 at 10:46; Status DC Nifedipine (Procardia Xl) 60 mg DAILY PO Last administered on 12/26/16 09:19; Start 12/25/16 at 09:00; Stop 12/26/16 at 18:46; Status DC Bumetanide (Bumex Inj) 1 mg ONCE ONCE IV PUSH Last administered on 12/25/16 10 :41; Start 12/25/16 at 10:15; Stop 12/25/16 at 10:22; Status DC Doxazosin Mesylate (Cardura) 2 mg DAILY PO Last administered on 12/26/16 09:20 ; Start 12/25/16 at 10:15; Stop 12/26/16 at 18:25; Status DC Pantoprazole Sodium (Protonix Inj) 40 mg Q24H IV PUSH ; Start 12/25/16 at 10:15; Stop 12/25/16 at 10:17; Status DC Pantoprazole Sodium (Protonix) 40 mg DAILY PO Last administered on 01/29/17 09 :00; Start 12/25/16 at 10:30 Miscellaneous Information Patient in critical care unit? Ass... [id number] .XX Last administered on 12/25/16 22:30; Start 12/25/16 at 22:30 Chlorhexidine Gluconate (Chlorhexidine 2% Cloth) 3 pack DAILY@04 TOPICAL Last administered on 12/30/16 04:00; Start 12/26/16 at 04:00; Stop 12/30/16 at 04:01 ; Status DC Chlorhexidine Gluconate (Chlorhexidine 2% Cloth) 3 pack UNSCH PRN TOPICAL HYGIENIC CARE; Start 12/25/16 at 22:30; Stop 12/30/16 at 22:25; Status DC Potassium Chloride (KCl Powder) 40 meq NOW ONCE PEG Last administered on 17:00; Start 12/26/16 at 17:00; Stop 12/26/16 at 17:01; Status DC Doxazosin Mesylate (Cardura) 4 mg DAILY PO ; Start 12/27/16 at 09:00; Stop at 09:00; Status DC Doxazosin Mesylate (Cardura) 10 mg HS PO Last administered on 01/29/17 00:21; Start 12/26/16 at 21:00; Stop 01/29/17 at 12:54; Status DC Nifedipine (Procardia Xl) 90 mg DAILY PO Last administered on 01/29/17 09:00; Start 12/27/16 at 09:00 Miscellaneous (Pill Splitter) 1 ea UNSCH PRN OTHER SEE LABEL COMMENTS Last administered on 12/27/16 10:33; Start 12/26/16 at 19:00 Doxazosin Mesylate (Cardura) 2 mg DAILY PO Last administered on 12/28/16 11:33 ; Start 12/28/16 at 10:00; Stop 12/28/16 at 16:56; Status DC Albuterol/ Ipratropium (Duoneb Neb) 1 ampule Q6HR NEB NEB Last administered on 01/01/17 15:35; Start 12/28/16 at 16:00; Stop 01/01/17 at 16:00; Status DC Albuterol/ Ipratropium (Duoneb Neb) 1 ampule Q2HR NEB PRN NEB SHORTNESS OF BREATH Last administered on 01/22/17 19:40; Start 12/28/16 at 13:00 Doxazosin Mesylate (Cardura) 4 mg DAILY PO ; Start 12/29/16 at 09:00; Stop at 09:00; Status DC Doxazosin Mesylate (Cardura) 4 mg DAILY PO Last administered on 01/26/17 09:30 ; Start 12/29/16 at 09:00; Stop 01/26/17 at 12:42; Status DC Potassium Chloride (KCl) 20 meq ONCE ONCE PO Last administered on 12/29/16 12: 44; Start 12/29/16 at 10:00; Stop 12/29/16 at 10:01; Status DC Polyethylene Glycol/ Electrolytes (Colyte Liq) 4,000 ml ONCE ONCE PO Last administered on 12/31/16 18:33; Start 12/31/16 at 16:00; Stop 12/31/16 at 16:01 ; Status DC Polyethylene Glycol/ Electrolytes (Colyte Liq) 4,000 ml ONCE ONCE PO ; Start at 16:00; Stop 12/31/16 at 16:00; Status DC Propofol (Diprivan 200 Mg/20 ml Inj) 350 mg STK-MED ONCE IV ; Start 01/01/17 at 11:38; Stop 01/01/17 at 12:24; Status DC Polyethylene Glycol/ Electrolytes (Colyte Liq) 4,000 ml ONCE ONCE PO Last administered on 01/01/17 20:10; Start 01/01/17 at 18:30; Stop 01/01/17 at 18:31 ; Status DC Propofol (Diprivan 200 Mg/20 ml Inj) 230 mg STK-MED ONCE IV ; Start 01/02/17 at 11:11; Stop 01/02/17 at 11:12; Status DC Phenylephrine HCl (Neosynephrine/ NS 1000 Mcg/10ml Syr) 1,000 mcg STK-MED ONCE IV ; Start 01/02/17 at 12:00; Stop 01/03/17 at 13:35; Status DC Potassium Chloride (KCl) 30 meq ONCE ONCE PO Last administered on 01/03/17 17 :50; Start 01/03/17 at 15:15; Stop 01/03/17 at 15:16; Status DC Clonidine (Catapres) 0.1 mg Q8HR PO Last administered on 01/30/17 06:52; Start 01/03/17 at 22:00 Potassium Chloride 30 meq 30 meq ONCE ONCE PO Last administered on 01/04/17 10:38; Start 01/04/17 at 09:45; Stop 01/04/17 at 09:47; Status DC Ceftriaxone Sodium 1000 mg/ Sodium Chloride 100 ml @ 200 mls/hr Q24H IV Last administered on 01/14/17 11:41; Start 01/05/17 at 11:00; Stop 01/14/17 at 20:33 ; Status DC Fluconazole/ Sodium Chloride (Diflucan 200 Mg Premix Bag) 100 ml @ 100 mls/hr Q24H IV Last administered on 01/25/17 10:12; Start 01/05/17 at 11:00; Stop 01/25 at 13:01; Status DC Acetaminophen/ Hydrocodone Bitart ([place] 5-325 Mg) 1 tab ONCE ONCE PO Last administered on 01/05/17 22:36; Start 01/05/17 at 20:45; Stop 01/05/17 at 20:50 ; Status DC Lidocaine HCl (Xylocaine 2% Jelly) 5 ml STK-MED ONCE TOPICAL Last administered on 01/10/17 08:04; Start 01/10/17 at 08:04; Stop 01/10/17 at 09:55; Status DC Furosemide (Lasix Inj) 40 mg ONCE ONCE IV PUSH Last administered on 01/13/17 05:15; Start 01/13/17 at 05:15; Stop 01/13/17 at 05:16; Status DC Morphine Sulfate (Morphine Inj) 2 mg Q3H PRN IV PUSH BREAKTHROUGH PAIN Last administered on 01/27/17 08:31; Start 01/13/17 at 05:15 Lorazepam (Ativan Inj) 1 mg Q4H PRN IV PUSH comfort measure/anxiety Last administered on 01/13/17 09:43; Start 01/13/17 at 05:15 Furosemide (Lasix Inj) 20 mg Q6HR PRN IV PUSH pulmonary congestion; Start 01/13 at 05:15 Lidocaine/ Epinephrine (Xylocaine-Epi 1%-1:100,000 Inj) 20 ml STK-MED ONCE .ROUTE Last administered on 01/14/17 11:04; Start 01/14/17 at 11:04; Stop at 11:05; Status DC Magnesium Hydroxide (Milk Of Magnesia Liq) 30 ml BID PRN PO Constipation Last administered on 01/28/17 11:44; Start 01/19/17 at 10:45 Alprazolam (Xanax) 0.25 mg ONCE ONCE PO Last administered on 01/23/17 22:39; Start 01/23/17 at 18:15; Stop 01/23/17 at 18:16; Status DC Alprazolam (Xanax) 0.5 mg ONCE ONCE PO Last administered on 01/27/17 09:06; Start 01/27/17 at 09:00; Stop 01/27/17 at 09:01; Status DC Calcium Carbonate (Tums Chew) 500 mg Q6H PRN CHEW DYSPEPSIA OR HEARTBURN Last administered on 01/29/17 15:20; Start 01/27/17 at 15:00 Calcium Carbonate (Tums Chew) 500 mg ONCE ONCE CHEW Last administered on 09:07; Start 01/27/17 at 09:00; Stop 01/27/17 at 09:04; Status DC Acetaminophen/ Hydrocodone Bitart ([place] 5-325 Mg) 1 tab Q4H PRN PO PAIN < 5; Start 01/29/17 at 08:15 Acetaminophen/ Hydrocodone Bitart ([place] 5-325 Mg) 2 tab Q4H PRN PO PAIN >5; Start 01/29/17 at 08:15 Doxazosin Mesylate (Cardura) 8 mg HS PO Last administered on 01/29/17t 23:20; Start 01/29/17 at 21:00 Date of Insertion: January 24, 2017 A/P Assessment and Plan A/P Squamous cell lung cancer: Currently undergoing radiation therapy. Supplemental oxygen as needed. Nebs as needed. Oncology and Pulmonology on board. anemia with positive hemoccult: Likely secondary to the above. Hemoglobin stable. No signs of bleeding. Monitor CBC. Transfuse if indicated. s/p EGD with gastritis and esophagitis- continue PPI Acute renal failure: Creatinine previously 0.77 on 11/02/16, creatinine acutely worsened, but has been slowly returning to normal. Monitor BMPs. Generalized weakness: Secondary to the above. Continue PT. Nisa UTI: S/P treatment with fluconazole. 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 Maintain Lipscomb for now and follow up with urology. Continue doxazosin. Dysphagia and malnutrition: Continue mechanical soft diet per speech therapy. Tolerating tube feedings. Continue megace for appetite stimulation. d/w the RN and questionable PEG dislodgement overnight ( 01/30) -GI has been notified. Intermittent Diarrhea and Constipation: Held scheduled stool softeners for now. Check stool studies if further episodes. Diarrhea improved. Hypertension: controlled with orthostatic dizziness. Decreased doxazosin. Continue nifedipine and clonidine for now. Orthostatic dizziness: Patient complains of dizziness when sitting. + orthostatic BP. Adjust BP meds as indicated. Continue PT. Hiccups/Dyspepsia: started on Tums 01/27. Improved. Continue Tums prn. DVT prophylaxis: SCD's Discharge Planning dc planning to SNF in progress. Regina Garcia MD January 30, 2017 07:57
--- NOTE | 2017-01-30 08:15 | HHI.PR ---
Objective Vital Signs Date Time Temp Pulse Resp B/P Pulse Ox O2 Delivery O2 Flow Rate FiO2 01/30/17 08:00 97.9 96 18 97/63 98 01/30/17 04:00 98.5 99 16 108/58 96 01/30/17 00:00 98.2 102 17 126/65 96 01/29/17 23:52 Nasal Cannula 2.00 01/29/17 20:13 94 01/29/17 20:00 97.6 76 17 119/61 96 01/29/17 15:30 97.9 91 20 110/60 96 01/29/17 14:42 104 01/29/17 12:00 97.7 74 18 101/62 94 01/29/17 09:09 Nasal Cannula 2.00 I/O 01/29/17 01/29/17 01/29/17 01/30/17 01/30/17 01/30/17 06:59 14:59 22:59 06:59 14:59 22:59 Intake Total 480 ml 360 ml Output Total 450 ml 700 ml 350 ml 800 ml Balance 30 ml -340 ml -350 ml -800 ml Intake Oral 480 ml 360 ml Output Urine Total 450 ml 700 ml 350 ml 800 ml Bladder Scan Volume Amount 432 ml 432 ml 432 ml # Bowel Movements 1 2 Result Diagram: 01/28/1711 01/28/17610 Objective Remarks This gentleman underwent a re simulation CT chest in radiation yesterday. This shows significant improvement with improved aeration of his left lung. He has been bed bound for a prolong time period . I would encourage aggressive physiotherapy to attempt to mobilize this patient so he may become strong enough to consider chemotherapy or other modalities in the future. Wei Uriostegui MD January 30, 2017 08:15
[2017-01-30] MEDS: FLUTICASONE PROPIONATE 50 MCG/ACT 16 GM NASAL SPRAY EACH NARE SCH (09:00)
[2017-01-30] MEDS: SODIUM CHLORIDE 0.9% FLUSH 5 ML FLUSH FLUSH SCH ×2 (09:00→21:00)
[2017-01-30] MEDS: FERROUS SULFATE 300 MG /5ML UDC PO SCH (09:39)
[2017-01-30] MEDS: NIFEdipine 90 MG SUSTAINED RELEASE TAB PO SCH (09:39)
[2017-01-30] MEDS: PANTOPRAZOLE SOD 40 MG DELAYED RELEASE TAB PO SCH (09:39)
[2017-01-30] MEDS: PHENYTOIN SUSP 100 MG/4 ML CUP PO SCH ×2 (09:39→21:22)
[2017-01-30] MEDS: MEGESTROL ACETATE SUSP 400 MG/10 ML CUP PO SCH (09:40)
[2017-01-30] MEDS ORDERED: DIATRIZOATE MEGLUM/DIATRIZOATE SOD 120 ML BTL (for RAD DIAG) PEG ONE (11:09)
--- NOTE | 2017-01-30 11:41 | RADRPT ---
EXAM DATE/TIME: 01/30/2017 10:55 [facility] COMPARISON: No previous studies available for comparison. INDICATIONS : Confirm PEG tube placement. MEDICAL HISTORY : Carcinoma, lung. Cardiovascular disease. Hypertension SURGICAL HISTORY : None. ENCOUNTER: Initial ACUITY: 1 day PAIN SCORE: 0/10 LOCATION: Abdomen. FINDINGS: Supine view of the abdomen was performed. The abdominal bowel gas pattern is normal. Contrast inject ion of the gastrostomy tube reveals contrast in the stomach and small bowel without evidence for leak age or obstruction. CONCLUSION: 1. No evidence for leakage or obstruction after injection of gastrostomy tube. Ken Crandall MD on January 30, 2017 at 11:37 Board Certified Radiologist. This report was verified electronically.
--- NOTE | 2017-01-30 11:46 | HHI.GIFU ---
Subjective Remarks Reconsulted for possible dislodged PEG tube. Nurse reports that she was told in report that the nurse was concerned that the PEG was dislodged because it appeared to be loose and therefore the TF was turned off. Pt denies any nausea/ vomiting/abdominal pain. He does not recall the tube being pulled. He is eating small amounts and normally on TF for supplemental feedings. (VanegasAudrey Sashakimo AGUDELO) Objective Vitals I&O Vital Signs Date Time Temp Pulse Resp B/P Pulse Ox O2 Delivery O2 Flow Rate FiO2 01/30/17 09:16 Nasal Cannula 2.00 21 01/30/17 08:00 97.9 96 18 97/63 98 01/30/17 04:00 98.5 99 16 108/58 96 01/30/17 00:00 98.2 102 17 126/65 96 01/29/17 23:52 Nasal Cannula 2.00 01/29/17 20:13 94 01/29/17 20:00 97.6 76 17 119/61 96 01/29/17 15:30 97.9 91 20 110/60 96 01/29/17 14:42 104 01/29/17 12:00 97.7 74 18 101/62 94 I/O 01/29/17 01/29/17 01/29/17 01/30/17 01/30/17 01/30/17 07:00 15:00 23:00 07:00 15:00 23:00 Intake Total 480 ml 360 ml Output Total 450 ml 700 ml 350 ml 800 ml Balance 30 ml -340 ml -350 ml -800 ml Intake Oral 480 ml 360 ml Output Urine Total 450 ml 700 ml 350 ml 800 ml Bladder Scan Volume Amount 432 ml 432 ml 432 ml 432 ml # Bowel Movements 1 2 Imaging Last Impressions Central Venous Line 01/14/17 1150 Signed Impressions: Service Date/Time: Saturday, January 14, 2017 11:50 - CONCLUSION: Uncomplicated Permcath removal. Beto Perry MD Chest X-Ray 01/14/17 0600 Signed Impressions: Service Date/Time: Saturday, January 14, 2017 05:43 - CONCLUSION: The right lung is grossly clear. No change in the complete opacification of the left hemithorax. Tono Vazquez MD Lower Extremity Ultrasound 4/17/17 0000 Signed Impressions: Service Date/Time: Friday, January 06, 2017 09:02 - CONCLUSION: Normal examination. Shawn Reyes MD Upper Extremity Ultrasound 12/11/16 1506 Signed Impressions: Service Date/Time: Sunday, December 11, 2016 18:00 - CONCLUSION: Superficial thrombophlebitis, extensive edema and nonspecific fluid collections in the subcutaneous tissues. Shawn Reyes MD Head CT 12/11/16 0000 Signed Impressions: Service Date/Time: Sunday, December 11, 2016 20:00 - CONCLUSION: Slight atrophic and small vessel ischemic changes without any evidence for acute hemorrhage or mass effect. Shawn Reyes MD Renal Ultrasound 12/09/16 0000 Signed Impressions: Service Date/Time: Friday, December 09, 2016 15:16 - CONCLUSION: 1. 8.4 cm mass lesion at the base of the bladder. This may represent an intrinsic mass of the bladder versus a prominent anterior lobe of the prostate. 2. Otherwise, urinary bladder is partially decompressed with a Lipscomb catheter. 3. Both kidneys are sonographically normal. Roby Horta MD Physical Exam HEENT: Normocephalic; atraumatic; no jaundice. CHEST: Resp. shallow/even, course breath sounds CARDIAC: RRR ABDOMEN: Soft, nondistended, nontender; bowel sounds are present in all four quadrants. PEG tube site without redness or swelling EXTREMITIES: no cyanosis, clubbing, edema FINANCIAL ASSISTANCE ADVISOR: No focal deficits; lethargic and oriented times three. Generalized weakness (Audrey Vanegas LIPSTICK MOLDER) Assessment and Plan Plan ASSESSMENT: - Reconsulted for questionable dislodged PEG tube. Nurse reports that she was told in report that the nurse was concerned that the PEG was dislodged because it appeared to be loose and therefore the TF was turned off. Pt denies any nausea/vomiting/abdominal pain. He does not recall the tube being pulled. It does not appear to be dislodged , although the bumper is slightly loose. This was tightened. However, no gastric contents were aspirated and therefore KUB with gastrografin via tube was ordered. If placement is confirmed, we will resume TF. If dislodged, we will remove and place replacement G tube at bedside. - Iron Deficiency Anemia with Hemoccult positive stool. Iron 25, TIBC 197, TIBC 197, Iron saturation 12.7. Getting iron transfusions and PPI. S/P EGD with PEG tube placement (12/11/16)----> A hiatal hernia, gastritis antrum-biopsy, esophagitis distal esophagus-biopsy s/p peg placement. Pathology with acute nonspecific duodenitis/ileitis, gastric antral mucosal biopsy without significant histopathologic abnormality negative for gastritis, gastropathy, metaplasia and dysplasia, esophageal mucosal biopsy with eosinophilic esophagitis consistent with reflux. EGD (01/01/17)---> 1. Esophagitis Bx at EG junction, 2. PEG tube in good position. 3. Normal endoscopy otherwise 4. Retroflexed views revealed no abnormalities Pathology with GE mucosal biopsy with moderate to severe acute and chronic inflammatory changes consistent with reflux negative for intestinal metaplasia and dysplasia, adenomatous polyps with foci of acute suppurative inflammation. Colonoscopy (01/02/17)---> 1. 1 cm polyp in the descending colon removed by snare, 2. Old tattoo in the ascending colon, 3. The colon mucosa was otherwise normal 4. Retroflexed views revealed no abnormalities, 5. Retroflexed views revealed internal hemorrhoids, 6. Retroflexed views revealed medium internal hemorrhoids, 7. Revealed no abnormalities of the rectum. Polyp with descending tubular adenoma. 7.01/11.5 - Protein calorie malnutrition. 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 Patient was hospitalized at this facility last month after developing shortness of breath and significant hemoptysis. He required mechanical ventilation. He was evaluated by CVT and then transferred to the [facility] in [place]. He was evaluated by Interventional pulmonology and underwent a bronchoscopy with debulking of a large mass involving the left mainstem bronchus. The left main bronchus was stented. Oncology is following and he is now getting radiation. - Acute renal failure, S/P HD, last treatment 12/17, renal following. creat 1.82 - Severe deconditioning. Pt has had a prolonged hospitalization, complicated by PEA arrest on 11/08/16. ST/OT/PT PLAN: - KUB with gastrografin through the PEG tube to confirm placement- Pending, will follow - If dislodged, will remove and place replacement tube - If placement confirmed, okay to use PEG - PPI - Monitor H&H - Transfuse as necessary - Supportive care - Capsule endoscopy as outpatient - Pt seen and examined by Dr. Erwin and myself and this note is written on her behalf (Audrey Vanegas) Physician Comments seen, examined peg in place on x-ray ok to use (Silvia Erwin MD) Audrey Vanegas January 30, 2017 11:46 Silvia Erwin MD January 30, 2017 16:34
--- NOTE | 2017-01-30 20:12 | HHI.PR ---
Subjective Remarks . Afebrile. Tolerates PO, good appetite On 3LNC No fever Had radiation today Objective Vital Signs Vital Signs Date Time Temp Pulse Resp B/P Pulse Ox O2 Delivery O2 Flow Rate FiO2 01/30/17 16:00 97.2 95 18 107/55 99 01/30/17 13:08 Nasal Cannula 2.00 01/30/17 12:00 98.2 88 18 102/66 99 01/30/17 09:16 Nasal Cannula 2.00 21 01/30/17 08:00 97.9 96 18 97/63 98 01/30/17 04:00 98.5 99 16 108/58 96 01/30/17 00:00 98.2 102 17 126/65 96 01/29/17 23:52 Nasal Cannula 2.00 01/29/17 20:13 94 I/O 01/29/17 01/29/17 01/29/17 01/30/17 01/30/17 01/30/17 07:00 15:00 23:00 07:00 15:00 23:00 Intake Total 480 ml 360 ml 360 ml Output Total 450 ml 700 ml 350 ml 800 ml 700 ml Balance 30 ml -340 ml -350 ml -800 ml -340 ml Intake Oral 480 ml 360 ml 360 ml Output Urine Total 450 ml 700 ml 350 ml 800 ml 700 ml Bladder Scan Volume Amount 432 ml 432 ml 432 ml 432 ml # Bowel Movements 1 2 1 Result Diagram: 01/28/17 0611 01/28/17 06 Objective Remarks GENERAL: Patient is lying in bed in NAD SKIN: Warm and dry. HEAD: Normocephalic. EYES: No scleral icterus. No injection or drainage. NECK: Supple, trachea midline. No JVD or lymphadenopathy. CARDIOVASCULAR: Regular rate and rhythm without murmurs, gallops, or rubs. RESPIRATORY: Breath sounds equal bilaterally. No accessory muscle use. GASTROINTESTINAL: Abdomen soft, non-tender, nondistended. MUSCULOSKELETAL: No cyanosis, or edema. BACK: Nontender without obvious deformity. No CVA tenderness. Neuro: Awake and alert A/P Assessment and Plan 1)Resp [place] 2)[id number] of left hemithorax- Unchanged 3)Squamous cell ca involving left main stem s/p endobronchial stent placement s/p XTR 4)s/p Hemoptysis 5)ARF 5)Anemia 6)Leukocytosis 7)HTN 8)UTI Plan Continue with oxygen keep sat >92% Bronchodilators (DuoNeb) S/p stent placement in the left main bronchus at [facility]. Monitor renal function, , Supplement 02 to keep sat >90% Aerosol nebs Works with PT CXR in AM Valeriy Wilkins MD January 30, 2017 20:12
[2017-01-30] MEDS: ATORVASTATIN 40 MG TAB PO SCH (21:22)
[2017-01-30] MEDS: DOXAZOSIN MESYLATE 4 MG TAB PO SCH (21:22)
[2017-01-31] VITALS (7 sets, daily range): BP systolic 108–130; BP diastolic 60–67; PULSE 72–105; RESP 16–20; TEMP 96.8–99; O2SAT 96–99
[2017-01-31] MEDS: cloNIDine HCL 0.1 MG TAB PO SCH ×3 (04:52→20:47)
--- NOTE | 2017-01-31 07:03 | RADRPT ---
EXAM DATE/TIME: 01/31/2017 06:38 [facility] COMPARISON: CHEST SINGLE AP, January 14, 2017, 5:43. INDICATIONS : Short of breath, lung carcinoma MEDICAL HISTORY : Carcinoma, lung. Cardiovascular disease. Hypertension. radiation therapy SURGICAL HISTORY : None. ENCOUNTER: Subsequent ACUITY: 1 month PAIN SCORE: 5/10 LOCATION: Bilateral chest FINDINGS: There is improved aeration of the left lower lung compared to the prior examination. There continues to be consolidation at the left apex. The right lung remains grossly clear. No definite pleural effus ions. Heart size within normal limits. There is no evidence of pneumothorax. CONCLUSION: Improved aeration of the left lower lung. Tono Vazquez MD on January 31, 2017 at 7:01 Board Certified Radiologist. This report was verified electronically.
[2017-01-31] MEDS: PHENYTOIN SUSP 100 MG/4 ML CUP PO SCH ×2 (07:55→20:58)
[2017-01-31] MEDS: PANTOPRAZOLE SOD 40 MG DELAYED RELEASE TAB PO SCH (07:55)
[2017-01-31] MEDS: FERROUS SULFATE 300 MG /5ML UDC PO SCH (07:55)
[2017-01-31] MEDS: NIFEdipine 90 MG SUSTAINED RELEASE TAB PO SCH (07:56)
[2017-01-31] MEDS: SODIUM CHLORIDE 0.9% FLUSH 5 ML FLUSH FLUSH SCH ×2 (07:56→20:47)
[2017-01-31] MEDS: MEGESTROL ACETATE SUSP 400 MG/10 ML CUP PO SCH (07:56)
[2017-01-31] MEDS: FLUTICASONE PROPIONATE 50 MCG/ACT 16 GM NASAL SPRAY EACH NARE SCH (07:57)
--- NOTE | 2017-01-31 12:51 | HHI.PR ---
Subjective Remarks resting comfortably with no distress. no sob or pain. Objective Vitals Vital Signs Date Time Temp Pulse Resp B/P Pulse Ox O2 Delivery O2 Flow Rate FiO2 01/31/17 09:34 Nasal Cannula 2.00 21 01/31/17 08:00 96.8 89 20 110/67 97 01/31/17 04:00 98.9 105 17 112/61 97 01/31/17 00:00 99.0 104 16 108/60 97 01/30/17 21:34 96 Nasal Cannula 2.00 01/30/17 20:00 96 01/30/17 20:00 Nasal Cannula 2.00 01/30/17 20:00 98.6 94 17 120/63 97 01/30/17 16:00 97.2 95 18 107/55 99 01/30/17 13:08 Nasal Cannula 2.00 I/O 01/30/17 01/30/17 01/30/17 01/31/17 01/31/17 01/31/17 06:59 14:59 22:59 06:59 14:59 22:59 Intake Total 360 ml 1118 ml Output Total 800 ml 700 ml 150 ml 750 ml Balance -800 ml -340 ml -150 ml 368 ml Intake Oral 360 ml 480 ml Tube Feeding 638 ml Output Urine Total 800 ml 700 ml 150 ml 750 ml Bladder Scan Volume Amount 432 ml 432 ml 432 ml 432 ml # Bowel Movements 1 Result Diagram: 01/28/17 0611 01/28/17 0611 Imaging Last Impressions Chest X-Ray 01/31/17 0600 Signed Impressions: Service Date/Time: Tuesday, January 31, 2017 06:38 - CONCLUSION: Improved aeration of the left lower lung. Tono Vazquez MD Abdomen X-Ray 01/30/17 0000 Signed Impressions: Service Date/Time: January 10:55 - CONCLUSION: 1. No evidence for leakage or obstruction after injection of gastrostomy tube. Ken Crandall MD Central Venous Line 01/14/17 1150 Signed Impressions: Service Date/Time: Saturday, January 14, 2017 11:50 - CONCLUSION: Uncomplicated Permcath removal. Beto Perry MD Lower Extremity Ultrasound 01/06/17 0000 Signed Impressions: Service Date/Time: Friday, January 06, 2017 09:02 - CONCLUSION: Normal examination. Shawn Reyes MD Upper Extremity Ultrasound 12/11/16 1506 Signed Impressions: Service Date/Time: Sunday, December 11, 2016 18:00 - CONCLUSION: Superficial thrombophlebitis, extensive edema and nonspecific fluid collections in the subcutaneous tissues. Shawn Reyes MD Head CT 12/11/16 0000 Signed Impressions: Service Date/Time: Sunday, December 11, 2016 20:00 - CONCLUSION: Slight atrophic and small vessel ischemic changes without any evidence for acute hemorrhage or mass effect. Shawn Reyes MD Renal Ultrasound 12/09/16 0000 Signed Impressions: Service Date/Time: Friday, December 09, 2016 15:16 - CONCLUSION: 1. 8.4 cm mass lesion at the base of the bladder. This may represent an intrinsic mass of the bladder versus a prominent anterior lobe of the prostate. 2. Otherwise, urinary bladder is partially decompressed with a Lipscomb catheter. 3. Both kidneys are sonographically normal. Roby Horta MD Objective Remarks GENERAL: in no apparent distress. CARDIOVASCULAR: Regular rate and regular rhythm without murmurs, gallops, or rubs. RESPIRATORY: Clear to auscultation. Breath sounds equal bilaterally. No wheezes , rales, or rhonchi. GASTROINTESTINAL: Abdomen soft, non-tender, nondistended. Normal, active bowel sounds- PEG in place MUSCULOSKELETAL: Extremities without clubbing, cyanosis, or edema. NEURO: Alert & Oriented x4 to person, place, time, situation. Moves all ext x4 Procedures 12/11- EGD- esophagitis, gastritis, duodenitis PEG placement Medications and IVs Current Medications Sodium Chloride (NS 1000 ml Inj) 1,000 ml @ 75 mls/hr [id number] IV Last administered on 12/06/16 05:59; Start 12/05/16 at 18:00; Stop 12/06/16 at 12:03 ; Status DC IV Flush (NS Flush) 2 ml UNSCH PRN FLUSH FLUSH AFTER USING IV ACCESS; Start at 17:00 IV Flush (NS Flush) 2 ml BID FLUSH Last administered on 01/31/17 07:56; Start 12/05/16 at 21:00 Ondansetron HCl (Zofran Inj) 4 mg Q6H PRN IVP NAUSEA OR VOMITING; Start at 18:00 Bisacodyl (Dulcolax Supp) 10 mg DAILY PRN [place] CONSTIPATION; Start 12/05/16 at 18 :00 Docusate Sodium (Colace) 100 mg Q12H PO Last administered on 01/25/17 05:30; Start 12/05/16 at 18:00; Stop 01/25/17 at 13:01; Status DC Naloxone HCl (Narcan Inj) 0.4 mg UNSCH PRN IV SEE LABEL COMMENTS; Start at 17:00 Phenytoin (Dilantin) 300 mg BID PO Last administered on 12/07/16 20:57; Start 12/05/16 at 21:00; Stop 12/08/16 at 10:47; Status DC Terazosin HCl (Hytrin) 1 mg HS PO ; Start 12/05/16 at 21:00; Stop 12/05/16 at 21 :00; Status DC Enalaprilat (Vasotec Inj) 2.5 mg Q6H PRN IV PUSH SBP>160, DBP>90 Last administered on 12/24/16 07:19; Start 12/05/16 at 18:00; Stop 12/25/16 at 14:48; Status DC Ferrous Sulfate (Ferrous Sulfate Liq) 300 mg DAILY PO Last administered on 01/31 07:55; Start 12/06/16 at 09:00 Doxazosin Mesylate (Cardura) 8 mg HS PO Last administered on 12/25/16 21:22; Start 12/05/16 at 21:00; Stop 12/26/16 at 18:46; Status DC Atorvastatin Calcium (Lipitor) 40 mg HS PO Last administered on 01/30/17 21:22 ; Start 12/05/16 at 21:00 Furosemide (Lasix Liq) 40 mg DAILY TUBE Last administered on 12/20/16 08:50; Start 12/06/16 at 09:00; Status Hold Senna/Docusate Sodium (Jacinda-Colace) 2 tab BID PRN PO CONSTIPATION Last administered on 01/29/17 23:19; Start 12/05/16 at 19:45 Lactulose (Lactulose Liq) 30 ml TID PRN PO CONSTIPATION Last administered on 09:58; Start 12/05/16 at 19:45 Bisacodyl (Dulcolax Supp) 10 mg DAILY PRN NV CONSTIPATION; Start 12/05/16 at 19 :45; Status Cancel Magnesium Hydroxide (Milk Of Magnmarquita Liq) 30 ml Q6H PRN PO CONSTIPATION Last administered on 01/29/17 09:00; Start 12/05/16 at 19:45 Furosemide 20 mg 20 mg ONCE ONCE IV PUSH ; Start 12/06/16 at 07:00; Stop at 07:01; Status DC Sodium Chloride (NS 250 ml Inj) 250 ml @ 15 mls/hr ONCE ONCE IV Last administered on 12/06/16 11:00; Start 12/06/16 at 08:45; Stop 12/07/16 at 01:24 ; Status DC Acetaminophen (Tylenol) 650 mg Q4H PRN PO SEE LABEL COMMENTS; Start 12/06/16 at 08:45; Stop 12/06/16 at 12:46; Status DC Diphenhydramine HCl (Benadryl) 25 mg Q4H PRN PO SEE LABEL COMMENTS; Start 12/06 at 08:45; Stop 12/06/16 at 12:46; Status DC Furosemide (Lasix Inj) 20 mg ONCE ONCE IV ; Start 12/06/16 at 08:45; Stop 12/06 at 08:46; Status DC Prednisone 20 mg 20 mg ONCE ONCE PO Last administered on 12/06/16 15:36; Start 12/06/16 at 13:00; Stop 12/06/16 at 13:01; Status DC Sodium Chloride (NS 1000 ml Inj) 1,000 ml @ 0 mls/hr Q0M PRN IV For Prime & Rinse Back Last administered on 12/12/16 09:33; Start 12/06/16 at 12:11 Heparin Sodium (Porcine) 8000 units 8,000 units UNSCH PRN IVF WITH DIALYSIS; Start 12/06/16 at 12:15 Sodium Chloride 1,000 ml @ 200 mls/hr Q5H PRN IV WITH DIALYSIS; Start 12/06/16 at 12:11 Sodium Chloride (NS 1000 ml Inj) 1,000 ml @ 0 mls/hr Q0M PRN IV WITH DIALYSIS; Start 12/06/16 at 12:11 Mannitol (Mannitol Inj) 12.5 gm UNSCH PRN IV WITH DIALYSIS; Start 12/06/16 at 12:15 Albumin Human (Albumin 25% Inj) 25 gm UNSCH PRN IV WITH DIALYSIS; Start at 12:15 IV Flush (NS Flush) 5 ml UNSCH PRN IVF WITH DIALYSIS; Start 12/06/16 at 12:15 Heparin Sodium (Porcine) (Heparin Inj) UNSCH PRN .XX WITH DIALYSIS Last administered on 12/14/16 16:39; Start 12/06/16 at 12:15 Gentamicin Sulfate (Gentamicin (Dialysis) Inj) 20 mg UNSCH PRN IV WITH DIALYSIS Last administered on 12/14/16 16:39; Start 12/06/16 at 12:15 Ondansetron HCl (Zofran Inj) 4 mg UNSCH PRN IV WITH DIALYSIS; Start 12/06/16 at 12:15 Acetaminophen (Tylenol) 650 mg UNSCH PRN PO for headach, pain, temp > 101F Last administered on 12/14/16 07:54; Start 12/06/16 at 12:15 Diphenhydramine HCl (Benadryl) 25 mg UNSCH PRN PO for hives/itching/anaphylaxis ; Start 12/06/16 at 12:15 Nitroglycerin (Nitrostat Sl) 0.4 mg UNSCH PRN SL CHEST PAIN; Start 12/06/16 at 12:15 Clonidine (Catapres) 0.1 mg UNSCH PRN PO SYS BP GREATER THAN 160 MMHG Last administered on 12/19/16 06:27; Start 12/06/16 at 12:15 Epoetin Blanco (Epogen Inj) 10,000 units UNSCH PRN IV WITH DIALYSIS Last administered on 12/14/16 16:39; Start 12/06/16 at 12:15 Gelatin (Gelfoam 12 Mm/7 Mm Top) 1 foam UNSCH PRN TOP SEE LABEL COMMENTS; Start 12/06/16 at 12:15 Furosemide (Lasix Inj) 20 mg ONCE ONCE IV Last administered on 12/07/16 00:18 ; Start 12/07/16 at 00:30; Stop 12/07/16 at 00:31; Status DC Megestrol Acetate (Megace Liq) 400 mg ONCE ONCE PO Last administered on 18:19; Start 12/07/16 at 14:00; Stop 12/07/16 at 14:01; Status DC Megestrol Acetate (Megace Liq) 400 mg DAILY PO Last administered on 01/31/17 07:56; Start 12/08/16 at 09:00 Heparin Sodium (Porcine) (Heparin Inj) 5,000 units Q12HR SQ Last administered on 01/13/17 09:37; Start 12/08/16 at 21:00; Status Hold Phenytoin 300 mg 300 mg Q12HR PO Last administered on 01/31/17 07:55; Start at 21:00 Iron Sucrose 100 mg/Sodium Chloride 105 ml @ 105 mls/hr DAILY IV Last administered on 12/09/16 10:24; Start 12/09/16 at 09:00; Stop 12/11/16 at 09:59 ; Status DC Cefazolin Sodium/ Sodium Chloride (Ancef Inj/NS Inj) 100 ml @ 200 mls/hr CHILD DEVELOPMENT ASSISTANT IV ; Start 12/10/16 at 13:30; Stop 12/13/16 at 13:29; Status DC Cefazolin Sodium (Ancef Inj) 1,000 mg STK-MED ONCE IV Last administered on 12/11 10:37; Start 12/11/16 at 10:37; Stop 12/11/16 at 11:05; Status DC Propofol (Diprivan 200 Mg/20 ml Inj) 150 mg STK-MED ONCE IV ; Start 12/11/16 at 10:40; Stop 12/11/16 at 11:10; Status DC Levofloxacin (Levaquin) 250 mg Q48H PO Last administered on 12/17/16 16:45; Start 12/11/16 at 16:00; Stop 12/18/16 at 09:37; Status DC Phenylephrine HCl (Neosynephrine/ NS 1000 Mcg/10ml Syr) 100 mcg STK-MED ONCE IV ; Start 12/11/16 at 10:45; Stop 12/13/16 at 13:03; Status DC Fluconazole 100 mg 100 mg DAILY PO Last administered on 12/22/16 08:03; Start 12/16/16 at 11:30; Stop 12/22/16 at 12:06; Status DC Pharmacy Profile Note ([facility]) 0 ml @ 0 mls/hr UNSCH OTHER ; Start 12/16/16 at 11:30; Stop 12/16/16 at 14:18; Status DC Potassium Phosphate (K-Phos) 500 mg ONCE ONCE PO Last administered on 10:08; Start 12/18/16 at 09:00; Stop 12/18/16 at 09:01; Status DC Amlodipine Besylate (Norvasc) 5 mg DAILY PO Last administered on 12/19/16 08: 45; Start 12/18/16 at 11:00; Stop 12/19/16 at 09:45; Status DC Fluticasone Propionate (Flonase Evan Spr) 2 spray DAILY EACH NARE Last administered on 01/31/17 07:57; Start 12/18/16 at 12:00 Potassium Chloride (KCl) 30 meq ONCE ONCE PO Last administered on 12/19/16 11 :33; Start 12/19/16 at 09:00; Stop 12/19/16 at 10:37; Status DC Nifedipine (Procardia Xl) 30 mg DAILY PO Last administered on 12/24/16 08:37; Start 12/20/16 at 09:00; Stop 12/24/16 at 15:25; Status DC Calcium Acetate 667 mg 667 mg TID PO Last administered on 01/06/17 09:33; Start 12/20/16 at 09:00; Stop 01/06/17 at 12:37; Status DC Sodium Chloride 1,000 ml @ 75 mls/hr [id number] IV ; Start 12/20/16 at 09:00; Stop 12/20/16 at 09:47; Status DC Sodium Chloride (1/2 NS 1000 ml Inj) 1,000 ml @ 65 mls/hr [id number] IV Last administered on 12/24/16 21:10; Start 12/20/16 at 10:00; Status Hold Potassium Chloride (KCl) 30 meq ONCE ONCE PO Last administered on 12/23/16 12: 04; Start 12/23/16 at 10:45; Stop 12/23/16 at 10:46; Status DC Nifedipine (Procardia Xl) 60 mg DAILY PO Last administered on 12/26/16 09:19; Start 12/25/16 at 09:00; Stop 12/26/16 at 18:46; Status DC Bumetanide (Bumex Inj) 1 mg ONCE ONCE IV PUSH Last administered on 12/25/16 10 :41; Start 12/25/16 at 10:15; Stop 12/25/16 at 10:22; Status DC Doxazosin Mesylate (Cardura) 2 mg DAILY PO Last administered on 12/26/16 09:20 ; Start 12/25/16 at 10:15; Stop 12/26/16 at 18:25; Status DC Pantoprazole Sodium (Protonix Inj) 40 mg Q24H IV PUSH ; Start 12/25/16 at 10:15; Stop 12/25/16 at 10:17; Status DC Pantoprazole Sodium (Protonix) 40 mg DAILY PO Last administered on 01/31/17 07 :55; Start 12/25/16 at 10:30 Miscellaneous Information Patient in critical care unit? Ass... [id number] .XX Last administered on 12/25/16 22:30; Start 12/25/16 at 22:30 Chlorhexidine Gluconate (Chlorhexidine 2% Cloth) 3 pack DAILY@04 TOPICAL Last administered on 12/30/16 04:00; Start 12/26/16 at 04:00; Stop 12/30/16 at 04:01 ; Status DC Chlorhexidine Gluconate (Chlorhexidine 2% Cloth) 3 pack UNSCH PRN TOPICAL HYGIENIC CARE; Start 12/25/16 at 22:30; Stop 12/30/16 at 22:25; Status DC Potassium Chloride (KCl Powder) 40 meq NOW ONCE PEG Last administered on 17:00; Start 12/26/16 at 17:00; Stop 12/26/16 at 17:01; Status DC Doxazosin Mesylate (Cardura) 4 mg DAILY PO ; Start 12/27/16 at 09:00; Stop at 09:00; Status DC Doxazosin Mesylate (Cardura) 10 mg HS PO Last administered on 01/29/17 00:21; Start 12/26/16 at 21:00; Stop 01/29/17 at 12:54; Status DC Nifedipine (Procardia Xl) 90 mg DAILY PO Last administered on 01/31/17 07:56; Start 12/27/16 at 09:00 Miscellaneous (Pill Splitter) 1 ea UNSCH PRN OTHER SEE LABEL COMMENTS Last administered on 12/27/16 10:33; Start 12/26/16 at 19:00 Doxazosin Mesylate (Cardura) 2 mg DAILY PO Last administered on 12/28/16 11:33 ; Start 12/28/16 at 10:00; Stop 12/28/16 at 16:56; Status DC Albuterol/ Ipratropium (Duoneb Neb) 1 ampule Q6HR NEB NEB Last administered on 01/01/17 15:35; Start 12/28/16 at 16:00; Stop 01/01/17 at 16:00; Status DC Albuterol/ Ipratropium (Duoneb Neb) 1 ampule Q2HR NEB PRN NEB SHORTNESS OF BREATH Last administered on 01/22/17 19:40; Start 12/28/16 at 13:00 Doxazosin Mesylate (Cardura) 4 mg DAILY PO ; Start 12/29/16 at 09:00; Stop at 09:00; Status DC Doxazosin Mesylate (Cardura) 4 mg DAILY PO Last administered on 01/26/17 09:30 ; Start 12/29/16 at 09:00; Stop 01/26/17 at 12:42; Status DC Potassium Chloride (KCl) 20 meq ONCE ONCE PO Last administered on 12/29/16 12: 44; Start 12/29/16 at 10:00; Stop 12/29/16 at 10:01; Status DC Polyethylene Glycol/ Electrolytes (Colyte Liq) 4,000 ml ONCE ONCE PO Last administered on 12/31/16 18:33; Start 12/31/16 at 16:00; Stop 12/31/16 at 16:01 ; Status DC Polyethylene Glycol/ Electrolytes (Colyte Liq) 4,000 ml ONCE ONCE PO ; Start at 16:00; Stop 12/31/16 at 16:00; Status DC Propofol (Diprivan 200 Mg/20 ml Inj) 350 mg STK-MED ONCE IV ; Start 01/01/17 at 11:38; Stop 01/01/17 at 12:24; Status DC Polyethylene Glycol/ Electrolytes (Colyte Liq) 4,000 ml ONCE ONCE PO Last administered on 01/01/17 20:10; Start 01/01/17 at 18:30; Stop 01/01/17 at 18:31 ; Status DC Propofol (Diprivan 200 Mg/20 ml Inj) 230 mg STK-MED ONCE IV ; Start 01/02/17 at 11:11; Stop 01/02/17 at 11:12; Status DC Phenylephrine HCl (Neosynephrine/ NS 1000 Mcg/10ml Syr) 1,000 mcg STK-MED ONCE IV ; Start 01/02/17 at 12:00; Stop 01/03/17 at 13:35; Status DC Potassium Chloride (KCl) 30 meq ONCE ONCE PO Last administered on 01/03/17 17 :50; Start 01/03/17 at 15:15; Stop 01/03/17 at 15:16; Status DC Clonidine (Catapres) 0.1 mg Q8HR PO Last administered on 01/31/17 04:52; Start 01/03/17 at 22:00 Potassium Chloride 30 meq 30 meq ONCE ONCE PO Last administered on 01/04/17 10:38; Start 01/04/17 at 09:45; Stop 01/04/17 at 09:47; Status DC Ceftriaxone Sodium 1000 mg/ Sodium Chloride 100 ml @ 200 mls/hr Q24H IV Last administered on 01/14/17 11:41; Start 01/05/17 at 11:00; Stop 01/14/17 at 20:33 ; Status DC Fluconazole/ Sodium Chloride (Diflucan 200 Mg Premix Bag) 100 ml @ 100 mls/hr Q24H IV Last administered on 01/25/17 10:12; Start 01/05/17 at 11:00; Stop 01/25 at 13:01; Status DC Acetaminophen/ Hydrocodone Bitart ([place] 5-325 Mg) 1 tab ONCE ONCE PO Last administered on 01/05/17 22:36; Start 01/05/17 at 20:45; Stop 01/05/17 at 20:50 ; Status DC Lidocaine HCl (Xylocaine 2% Jelly) 5 ml STK-MED ONCE TOPICAL Last administered on 01/10/17 08:04; Start 01/10/17 at 08:04; Stop 01/10/17 at 09:55; Status DC Furosemide (Lasix Inj) 40 mg ONCE ONCE IV PUSH Last administered on 01/13/17 05:15; Start 01/13/17 at 05:15; Stop 01/13/17 at 05:16; Status DC Morphine Sulfate (Morphine Inj) 2 mg Q3H PRN IV PUSH BREAKTHROUGH PAIN Last administered on 01/27/17 08:31; Start 01/13/17 at 05:15 Lorazepam (Ativan Inj) 1 mg Q4H PRN IV PUSH comfort measure/anxiety Last administered on 01/13/17 09:43; Start 01/13/17 at 05:15 Furosemide (Lasix Inj) 20 mg Q6HR PRN IV PUSH pulmonary congestion; Start 01/13 at 05:15 Lidocaine/ Epinephrine (Xylocaine-Epi 1%-1:100,000 Inj) 20 ml STK-MED ONCE .ROUTE Last administered on 01/14/17 11:04; Start 01/14/17 at 11:04; Stop at 11:05; Status DC Magnesium Hydroxide (Milk Of Magnesia Liq) 30 ml BID PRN PO Constipation Last administered on 01/28/17 11:44; Start 01/19/17 at 10:45 Alprazolam (Xanax) 0.25 mg ONCE ONCE PO Last administered on 01/23/17 22:39; Start 01/23/17 at 18:15; Stop 01/23/17 at 18:16; Status DC Alprazolam (Xanax) 0.5 mg ONCE ONCE PO Last administered on 01/27/17 09:06; Start 01/27/17 at 09:00; Stop 01/27/17 at 09:01; Status DC Calcium Carbonate (Tums Chew) 500 mg Q6H PRN CHEW DYSPEPSIA OR HEARTBURN Last administered on 01/29/17 15:20; Start 01/27/17 at 15:00 Calcium Carbonate (Tums Chew) 500 mg ONCE ONCE CHEW Last administered on 09:07; Start 01/27/17 at 09:00; Stop 01/27/17 at 09:04; Status DC Acetaminophen/ Hydrocodone Bitart ([place] 5-325 Mg) 1 tab Q4H PRN PO PAIN < 5; Start 01/29/17 at 08:15 Acetaminophen/ Hydrocodone Bitart ([place] 5-325 Mg) 2 tab Q4H PRN PO PAIN >5; Start 01/29/17 at 08:15 Doxazosin Mesylate (Cardura) 8 mg HS PO Last administered on 01/30/17t 21:22; Start 01/29/17 at 21:00 Diatrizoate Meglum/ Diatrizoate Sod (Md Lopez Liq) 60 ml STK-MED ONCE PEG ; Start 01/30/17 at 11:09; Stop 01/30/17 at 11:10; Status DC Date of Insertion: January 24, 2017 A/P Assessment and Plan A/P Squamous cell lung cancer: Currently undergoing radiation therapy. Supplemental oxygen as needed. Nebs as needed. Oncology and Pulmonology on board. CXR today with improved aeration left lower lung. anemia with positive hemoccult: Likely secondary to the above. Hemoglobin stable. No signs of bleeding. Monitor CBC. Transfuse if indicated. s/p EGD with gastritis and esophagitis- continue PPI Acute renal failure: Creatinine previously 0.77 on 11/02/16, creatinine acutely worsened, but has been slowly returning to normal. Monitor BMPs. Generalized weakness: Secondary to the above. Continue PT. Nisa UTI: S/P treatment with fluconazole. 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 Continue doxazosin. Dysphagia and malnutrition: Continue mechanical soft diet per speech therapy. Tolerating tube feedings. Continue megace for appetite stimulation. questionable PEG dislodgement reported on 01/30- however PEG looked ok on XR- ok to use per GI- Intermittent Diarrhea and Constipation: Held scheduled stool softeners for now. Check stool studies if further episodes. Diarrhea improved. Hypertension: controlled with orthostatic dizziness. Decreased doxazosin. Continue nifedipine and clonidine for now. Orthostatic dizziness: Patient complains of dizziness when sitting. + orthostatic BP. Adjust BP meds as indicated. Continue PT. Hiccups/Dyspepsia: started on Tums 01/27. Improved. Continue Tums prn. DVT prophylaxis: SCD's Discharge Planning dc planning to SNF in progress. Regina Garcia MD January 31, 2017 12:51
--- NOTE | 2017-01-31 14:12 | HHI.HCPN ---
Reason for visit a. To assist with evaluation and management of symptoms including: dyspnea, weakness, malnutrition b. To assist medical decision maker(s) with: better understanding of current medical conditions; weighing benefits/burdens of medical treatment options; making medical treatment decisions. (Evangelina Watson) Subjective/Interval History Pt seen to follow up on dyspnea , goals, update to family. Received VM requesting update, from SALOMÓN Hidalgo before my arrival to unit. Pt remains stable, continuing XRT, today completed 17 of 25 treatments (of note some prior progress records indicate 35 total tx, though now indicating 25 total tx). CXR indicates improved aeration left side. CT chest was done during XRT, Dr. Uriostegui notes improved, improved aeration left chest, patient might still be considered candidate for chemotherapy if can improve overall. S/p GI reconsult to check location of PEG tube, concern was dislodged, imaging verified in correct placement, ok to cont use per GI. Pt seen in room, alert, oriented, pleasant. Tells me the radiation dr told him his tumor is "breaking up", he updated his family RE. Endorses feeling Ok overall , generalized fatigue. Appetite fair to good. No shortness of breath. + some pain to his tailbone "from not moving around". PT is in to cont working with him. he informs he wishes to cont to work with therapy to recondition, build strength. Following exam, call to SALOMÓN Hidalgo to provide update. updated on current conditions, assessment, imaging, radiation recommendations. all questions answered, she is appreciative of ongoing updates. . (Evangelina Watson) Advance Directives Living Will: Completed, but not made available Health Care Surrogate: Copy in medical record (Evangelina Watson) Advance Directive Specifics Date completed: 12/17/16 Health Care Surrogate(s): Names son Elpidio Jaime as HCS (Evangelina Watson) Objective Vital Signs Date Time Temp Pulse Resp B/P Pulse Ox O2 Delivery O2 Flow Rate FiO2 01/31/17 12:00 98.1 101 20 110/60 99 01/31/17 09:34 Nasal Cannula 2.00 21 01/31/17 08:00 96.8 89 20 110/67 97 01/31/17 04:00 98.9 105 17 112/61 97 01/31/17 00:00 99.0 104 16 108/60 97 01/30/17 21:34 96 Nasal Cannula 2.00 01/30/17 20:00 96 01/30/17 20:00 Nasal Cannula 2.00 01/30/17 20:00 98.6 94 17 120/63 97 01/30/17 16:00 97.2 95 18 107/55 99 Physical Exam CONSTITUTIONAL/GENERAL: This is a chronically ill appearing pt, no distress, alert, pleasant TUBES/LINES/DRAINS:pIV LUE,RA. +PEG tube CARDIOVASCULAR: Regular rate and rhythm, no murmurs. Peripheral pulses symmetric. RESPIRATORY/CHEST: Symmetric, unlabored respirations. + 2L NC. Clear to right, improved air movement to left, +course rhonchi to left. GASTROINTESTINAL: Abdomen soft, non-tender, nondistended. No palpable masses. No guarding. Bowel sounds present.PEG tube clamped ,dressing clean/dry NEUROLOGICAL: Alert, orientedx3 . Pleasant and cooperative. Reasonable insight into hospitalization and conditions. Follows commands. Moves all 4 extremities with significant weakness PSYCHIATRIC: No obvious anxiety/depression. . (Evangelina Watson) Diagnostic Tests Result Diagram: 01/28/17 0611 01/28/17 0611 Imaging Last Impressions Chest X-Ray 01/31/17 0600 Signed Impressions: Service Date/Time: Tuesday, January 31, 2017 06:38 - CONCLUSION: Improved aeration of the left lower lung. Tono Vazquez MD Abdomen X-Ray 01/30/17 0000 Signed Impressions: Service Date/Time: January 10:55 - CONCLUSION: 1. No evidence for leakage or obstruction after injection of gastrostomy tube. Ken Crandall MD Central Venous Line 01/14/17 1150 Signed Impressions: Service Date/Time: Saturday, January 14, 2017 11:50 - CONCLUSION: Uncomplicated Permcath removal. Beto Perry MD Lower Extremity Ultrasound 01/06/17 0000 Signed Impressions: Service Date/Time: Friday, January 06, 2017 09:02 - CONCLUSION: Normal examination. Shawn Reyes MD Upper Extremity Ultrasound 12/11/16 1506 Signed Impressions: Service Date/Time: Sunday, December 11, 2016 18:00 - CONCLUSION: Superficial thrombophlebitis, extensive edema and nonspecific fluid collections in the subcutaneous tissues. Shawn Reyes MD Head CT 12/11/16 0000 Signed Impressions: Service Date/Time: Sunday, December 11, 2016 20:00 - CONCLUSION: Slight atrophic and small vessel ischemic changes without any evidence for acute hemorrhage or mass effect. Shawn Reyes MD Renal Ultrasound 12/09/16 0000 Signed Impressions: Service Date/Time: Friday, December 09, 2016 15:16 - CONCLUSION: 1. 8.4 cm mass lesion at the base of the bladder. This may represent an intrinsic mass of the bladder versus a prominent anterior lobe of the prostate. 2. Otherwise, urinary bladder is partially decompressed with a Lipscomb catheter. 3. Both kidneys are sonographically normal. Roby Horta MD (Evangelina Watson) Assessment and Plan Disease Oriented Problem List: (1) Mass of left lung Comment: +SCC (2) Acute renal failure (3) Squamous cell lung cancer (4) Bladder mass (5) Anemia (6) UTI (urinary tract infection) Comment: awaiting BX/resection when stable (7) Severe muscle deconditioning (8) Acute respiratory failure Comment: resolved Symptom Scale: (1) Malnutrition (2) Dyspnea (3) Weakness Pertinent Non-Medical Issues Psychosocial:. 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 Lives at home alone. Supported by 4 sons, 2 in [place], 2 in [place] Spiritual: Legal:pt appears able to participate in decision making. Reports his son Elpidio is HCS, they will provide copies. Pt appears to have simple understanding of things and wishes to include his son in medical updates and decision making . Ethical issues impacting care: Important Contacts Jevon Landeros- ([facility]) Elpidio Jaime [phone] (Gwen, DIL [phone]) Jevon Landeros - Soham Jaime [phone] . Prognosis This patient has a new diagnosis of squamous cell carcinoma, s/p mass resection , intubation and arrest. He subsequently suffered acute renal failure and remains on hemodialysis. He has new findings of a large bladder mass, concerning for cancer, however cannot have additional diagnostic procedures until acute condition improves. It is possible his cancer could be treated, however his acute issues need to improve and his overall performance status needs to improve in order to obtain staging, and possible treatment. He has multiple issues and is severely deconditioned, it may take significant time for him to improve enough for treatment and during that time he remains high risk for further complications and setbacks. Code Status: Full Code Plan * Legal decision maker:pt appears able to participate in decision making. Reports his son Elpidio is HCS, they will provide copies. Pt appears to have simple understanding of things and wishes to include his son in medical updates and decision making . HCS completed 12/17/16 naming son Elpidio Jaime as HCS * Goals: GOALS HAVE BEEN AGGRESSIVE, pt wants to try to get needed resources in line in order to to go back home to [place] with his son, and possible obtain chemotherapy to treat his cancer and have more time. Patient's son and healthcare surrogate Elpidio is supportive of the patient's wishes. They're working to try to get him up to [place] closer to them. I provided an update to son 12/19 -- 01/13/17- Pt off unit. need to re address GO, [facility]. Could d/c w hospice, however would not be able to cont radiation on hospice. 1400 patient seen later in the afternoon after his return from radiation. Has now completed 4 of 25 treatments. He endorses feeling more tired and out of sorts in the past day or so. No specific complaints otherwise. He affirms DNR status. He is not certain if he wishes to proceed with hospice, or if he wishes to remain in the hospital and attempt to continue radiation treatments, other aggressive treatments short of resuscitation. He is going to talk more with his son Elpidio when he arrives later today to make further decisions. Palliative plans to follow-up again with him tomorrow 01/14 -- 01/14/17 met w pt, son, They have had ongoing conversations RE continuing radiation/semi aggressive tx short of resuscitation, vs transition to hospice and d/c out of the hospital to get up to [place] with family. Pt wishes to continue to try to complete radiation, he understands remains high risk for complications /resp issues. Plan is to enroll in hospice, after completing radiation. Wants to remain DNR. -- 01/22/17 met w pt at beside. He is A&O. goals remain aggressive. Feeling well overall. Wants to work with PT. --01/31/17: goals remain aggressive. update to family. * CODE STATUS: DNR * SYMPTOMS: --dyspnea- s/p acute resp failure- prolonged intubation, resolved. Has been on nasal cannula O2, PRN nebulizers-- denies and shortness of breath; earlier today with episode of desaturation, dyspnea. CXR appears unchanged, essentially white out of left lung. Episode of respiratory distress earlier this week, required transfer to ICU and BiPAP, now out of ICU. currently maintaining on nasal cannula - has elected NOT to use B IPAP anymore. HALICAT last month due to hemoptysis, desaturation, pt elected NO intubation, DNR, comfort measures only, HOSPICE consulted. Goal to Continue to pursue aggressive treatment until completion of radiation. --malnutrition- +PEG, TF at night, + oral food in day time, on MEGACE, appetite fair/good -- eating 50%-75% of most recent meals. --weakness/deconditioning - in hospital since 10/22 -- severely deconditioned- -> PT working with, pt with limited strength to even sit on side of bed.Pt reports difficulty feeding self due to weakness.Continues to work with OT/PT though clinical condition limits his ability to participate in prolonged therapy -- PT continues to work with pt --Dysphagia- post ST eval,tolerating thin liquids, probably remains ongoing risk for aspiration * Palliative care will continue to follow during hospital course as condition evolves, to assist patient/decision-maker with understanding of medical conditions, weighing benefits/burdens of treatment options, for clarification of goals of treatment. Additionally will assist with any symptoms of palliative concern (Evangelina Watson) Time Spent Total Floor Time (mins): 20 (Evangelina Watson) Attestation To help prompt me to consider important information that might be impacting today's encounter and assessment, information from prior notes written by myself or my colleagues may have been "brought forward" into today's note. My signature on this note, however, is an attestation that I personally performed the exam, history, and/or decision-making noted today, and, unless otherwise indicated, the interactions with patient, family, and staff as well as the review of records all occurred today. I also attest that the listed assessment and stated plan reflect my best clinical judgment today based on the combination of historical information, prior notes, and today's exam/ interactions. When time spent is documented, it refers only to time spent today by the signer, or if indicated, combined time spent today by collaborating physician/nurse practitioner. (Evangelina Watson) Collaborating MD Comments . Chart reviewed. Case discussed with palliative care STUNNER. I have reviewed above STUNNER note and I concur. . (Ciro Reynoso MD) Evangelina Watson January 31, 2017 14:12 Ciro Reynoso MD February 18, 2017 12:32
--- NOTE | 2017-01-31 18:12 | HHI.PR ---
Subjective Remarks . Afebrile. Tolerates PO, good appetite On 3LNC No fever Had radiation today CXR improved aeration of LLL Objective Vital Signs Vital Signs Date Time Temp Pulse Resp B/P Pulse Ox O2 Delivery O2 Flow Rate FiO2 01/31/17 16:43 98.4 93 18 121/63 99 01/31/17 14:02 96 Nasal Cannula 2.00 01/31/17 12:00 98.1 101 20 110/60 99 01/31/17 09:34 Nasal Cannula 2.00 21 01/31/17 08:00 96.8 89 20 110/67 97 01/31/17 04:00 98.9 105 17 112/61 97 01/31/17 00:00 99.0 104 16 108/60 97 01/30/17 21:34 96 Nasal Cannula 2.00 01/30/17 20:00 96 01/30/17 20:00 Nasal Cannula 2.00 01/30/17 20:00 98.6 94 17 120/63 97 I/O 01/30/17 01/30/17 01/30/17 01/31/17 01/31/17 01/31/17 07:00 15:00 23:00 07:00 15:00 23:00 Intake Total 360 ml 1118 ml Output Total 800 ml 700 ml 150 ml 750 ml Balance -800 ml -340 ml -150 ml 368 ml Intake Oral 360 ml 480 ml Tube Feeding 638 ml Output Urine Total 800 ml 700 ml 150 ml 750 ml Bladder Scan Volume Amount 432 ml 432 ml 432 ml 432 ml # Bowel Movements 1 Result Diagram: 01/28/17 0611 01/28/17 0611 Objective Remarks GENERAL: Patient is lying in bed in NAD SKIN: Warm and dry. HEAD: Normocephalic. EYES: No scleral icterus. No injection or drainage. NECK: Supple, trachea midline. No JVD or lymphadenopathy. CARDIOVASCULAR: Regular rate and rhythm without murmurs, gallops, or rubs. RESPIRATORY: Breath sounds equal bilaterally. No accessory muscle use. GASTROINTESTINAL: Abdomen soft, non-tender, nondistended. MUSCULOSKELETAL: No cyanosis, or edema. BACK: Nontender without obvious deformity. No CVA tenderness. 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 Monitor renal function, , Supplement 02 to keep sat >90% Aerosol nebs Works with PT Available prn over weekend Valeriy Wilkins MD January 31, 2017 18:12
[2017-01-31] MEDS: DOXAZOSIN MESYLATE 4 MG TAB PO SCH (20:47)
[2017-01-31] MEDS: ATORVASTATIN 40 MG TAB PO SCH (20:47)
[2017-02-01] VITALS (10 sets, daily range): BP systolic 102–115; BP diastolic 56–68; PULSE 72–111; RESP 18–20; TEMP 98.2–99.6; O2SAT 96–100
[2017-02-01] MEDS: cloNIDine HCL 0.1 MG TAB PO SCH ×3 (04:39→21:29)
--- NOTE | 2017-02-01 08:42 | HHI.PR ---
Subjective Remarks This is a pleasant 71 y/o Male on Radiotherapy 17 of 25 treatments, PEG tube okay to continue using as per GI specialist for Squamous Cell Carcinoma of the left Lung. Palliative Care following, had VDRF, Acute renal failure on Renal replacement therapy, Large bladder mass concerning for cancer, Code Status DNR, but continue aggressive management. Seen in his bedroom in the presence of nurse Miss Alexander, he will have outpatient evaluation for his Urinary Bladder tumor Objective Vital Signs Date Time Temp Pulse Resp B/P Pulse Ox O2 Delivery O2 Flow Rate FiO2 02/01/17 04:00 98.5 111 18 112/62 96 02/01/17 00:00 98.6 103 18 113/68 98 01/31/17 20:00 98.6 98 18 124/63 98 01/31/17 20:00 Nasal Cannula 2.00 01/31/17 16:43 98.4 93 18 121/63 99 01/31/17 14:02 96 Nasal Cannula 2.00 01/31/17 12:00 98.1 101 20 110/60 99 01/31/17 09:34 Nasal Cannula 2.00 21 I/O 01/31/17 01/31/17 01/31/17 02/01/17 02/01/17 02/01/17 07:00 15:00 23:00 07:00 15:00 23:00 Intake Total 1118 ml 1167 ml Output Total 750 ml 850 ml 400 ml 400 ml Balance 368 ml -850 ml -400 ml 767 ml Intake Oral 480 ml 480 ml Tube Feeding 638 ml 687 ml Output Urine Total 750 ml 850 ml 400 ml 400 ml Bladder Scan Volume Amount 432 ml 432 ml # Bowel Movements 2 Result Diagram: 01/28/17 0611 01/28/17 0611 Imaging Last Impressions Chest X-Ray 01/31/17 0600 Signed Impressions: Service Date/Time: Tuesday, January 31, 2017 06:38 - CONCLUSION: Improved aeration of the left lower lung. Tono Vazquez MD Abdomen X-Ray 01/30/17 0000 Signed Impressions: Service Date/Time: January 10:55 - CONCLUSION: 1. No evidence for leakage or obstruction after injection of gastrostomy tube. Ken Crandall MD Central Venous Line 01/14/17 1150 Signed Impressions: Service Date/Time: Saturday, January 14, 2017 11:50 - CONCLUSION: Uncomplicated Permcath removal. Beto Perry MD Lower Extremity Ultrasound 01/06/17 0000 Signed Impressions: Service Date/Time: Friday, January 06, 2017 09:02 - CONCLUSION: Normal examination. Shawn Reyes MD Upper Extremity Ultrasound 12/11/16 1506 Signed Impressions: Service Date/Time: Sunday, December 11, 2016 18:00 - CONCLUSION: Superficial thrombophlebitis, extensive edema and nonspecific fluid collections in the subcutaneous tissues. Shawn Reyes MD Head CT 12/11/16 0000 Signed Impressions: Service Date/Time: Sunday, December 11, 2016 20:00 - CONCLUSION: Slight atrophic and small vessel ischemic changes without any evidence for acute hemorrhage or mass effect. Shawn Reyes MD Renal Ultrasound 12/09/16 0000 Signed Impressions: Service Date/Time: Friday, December 09, 2016 15:16 - CONCLUSION: 1. 8.4 cm mass lesion at the base of the bladder. This may represent an intrinsic mass of the bladder versus a prominent anterior lobe of the prostate. 2. Otherwise, urinary bladder is partially decompressed with a Lipscomb catheter. 3. Both kidneys are sonographically normal. Roby Horta MD Procedures 12/11- EGD- esophagitis, gastritis, duodenitis, PEG placement Other Results Laboratory Tests Test 01/28/17 06:11 White Blood Count 8.2 TH/MM3 Red Blood Count 2.65 MIL/MM3 Hemoglobin 7.4 GM/DL Hematocrit 22.5 % Mean Corpuscular Volume 85.1 FL Mean Corpuscular Hemoglobin 28.0 PG Mean Corpuscular Hemoglobin 33.0 % Concent Red Cell Distribution Width 15.9 % Platelet Count 394 TH/MM3 Mean Platelet Volume 6.5 FL Sodium Level 137 MEQ/L Potassium Level 4.5 MEQ/L Chloride Level 107 MEQ/L Carbon Dioxide Level 22.2 MEQ/L Anion Gap 8 MEQ/L Blood Urea Nitrogen 71 MG/DL Creatinine 1.82 MG/DL Estimat Glomerular Filtration 37 ML/MIN Rate Random Glucose 123 MG/DL Calcium Level 8.6 MG/DL Objective Remarks GENERAL: in no apparent distress. CARDIOVASCULAR: Regular rate and regular rhythm without murmurs, gallops, or rubs. RESPIRATORY: Clear to auscultation. Breath sounds equal bilaterally. No wheezes , rales, or rhonchi. GASTROINTESTINAL: Abdomen soft, non-tender, nondistended. Normal, active bowel sounds- PEG in place MUSCULOSKELETAL: Extremities without clubbing, cyanosis, or edema. NEURO: Alert & Oriented x4 to person, place, time, situation. Moves all ext x4 Medications and IVs Current Medications Medications (Trade) Dose Ordered Sig/Luis Carlos Route Start Time Stop Time Status Last Admin (NS Flush) 2 ml UNSCH PRN FLUSH 12/05/16 17:00 (NS Flush) 2 ml BID FLUSH 12/05/16 21:00 01/31/17 20:47 (Zofran Inj) 4 mg Q6H PRN IVP 12/05/16 18:00 (Dulcolax Supp) 10 mg DAILY PRN CA 12/05/16 18:00 (Narcan Inj) 0.4 mg UNSCH PRN IV 12/05/16 17:00 (Ferrous Sulfate Liq) 300 mg DAILY PO 12/06/16 09:00 01/31/17 07:55 (Lipitor) 40 mg HS PO 12/05/16 21:00 01/31/17 20:47 (Lasix Liq) 40 mg DAILY TUBE 12/06/16 09:00 Hold 12/20/16 08:50 (Jacinda-Colace) 2 tab BID PRN PO 12/05/16 19:45 01/29/17 23:19 (Lactulose Liq) 30 ml TID PRN PO 12/05/16 19:45 01/19/17 09:58 Magnesium Hydroxide 30 ml 30 ml Q6H PRN PO 12/05/16 19:45 01/29/17 09:00 (NS 1000 ml Inj) 1,000 ml @ 0 mls/hr Q0M PRN IV 12/06/16 12:11 12/12/16 09:33 Heparin Sodium (Porcine) 8000 units 8,000 units UNSCH PRN IVF 12/06/16 12:15 Sodium Chloride 1,000 ml @ 200 mls/hr Q5H PRN IV 12/06/16 12:11 (NS 1000 ml Inj) 1,000 ml @ 0 mls/hr Q0M PRN IV 12/06/16 12:11 (Mannitol Inj) 12.5 gm UNSCH PRN IV 12/06/16 12:15 (Albumin 25% Inj) 25 gm UNSCH PRN IV 12/06/16 12:15 (NS Flush) 5 ml UNSCH PRN IVF 12/06/16 12:15 (Heparin Inj) UNSCH PRN .XX 12/06/16 12:15 12/14/16 16:39 (Gentamicin (Dialysis) Inj) 20 mg UNSCH PRN IV 12/06/16 12:15 12/14/16 16:39 (Zofran Inj) 4 mg UNSCH PRN IV 12/06/16 12:15 (Tylenol) 650 mg UNSCH PRN PO 12/06/16 12:15 12/14/16 07:54 (Benadryl) 25 mg UNSCH PRN PO 12/06/16 12:15 (Nitrostat Sl) 0.4 mg UNSCH PRN SL 12/06/16 12:15 (Catapres) 0.1 mg UNSCH PRN PO 12/06/16 12:15 12/19/16 06:27 (Epogen Inj) 10,000 units UNSCH PRN IV 12/06/16 12:15 12/14/16 16:39 (Gelfoam 12 Mm/7 Mm Top) 1 foam UNSCH PRN TOP 12/06/16 12:15 (Megace Liq) 400 mg DAILY PO 12/08/16 09:00 01/31/17 07:56 (Heparin Inj) 5,000 units Q12HR SQ 12/08/16 21:00 Hold 01/13/17 09:37 (Dilantin Liq) 300 mg Q12HR PO 12/08/16 21:00 01/31/17 20:58 Fluticasone Propionate 2 spray 2 spray DAILY EACH NARE 12/18/16 12:00 01/31/17 07:57 (1/2 NS 1000 ml Inj) 1,000 ml @ 65 mls/hr [id number] IV 12/20/16 10:00 Hold 12/24/16 21:10 (Protonix) 40 mg DAILY PO 12/25/16 10:30 01/31/17 07:55 Miscellaneous Information Patient in critical care unit? Ass... Q361D .XX 12/25/16 22:30 12/25/16 22:30 (Procardia Xl) 90 mg DAILY PO 12/27/16 09:00 01/31/17 07:56 (Pill Splitter) 1 ea UNSCH PRN OTHER 12/26/16 19:00 12/27/16 10:33 (Catapres) 0.1 mg Q8HR PO 01/03/17 22:00 02/01/17 04:39 (Morphine Inj) 2 mg Q3H PRN IV PUSH 01/13/17 05:15 01/27/17 08:31 (Ativan Inj) 1 mg Q4H PRN IV PUSH 01/13/17 05:15 01/13/17 09:43 (Lasix Inj) 20 mg Q6HR PRN IV PUSH 01/13/17 05:15 (Milk Of Magnesia Liq) 30 ml BID PRN PO 01/19/17 10:45 01/28/17 11:44 (Tums Chew) 500 mg Q6H PRN CHEW 01/27/17 15:00 01/29/17 15:20 ([place] 5-325 Mg) 1 tab Q4H PRN PO 01/29/17 08:15 ([place] 5-325 Mg) 2 tab Q4H PRN PO 01/29/17 08:15 (Cardura) 8 mg HS PO 01/29/17 21:00 01/31/17 20:47 A/P Assessment and Plan Squamous cell lung cancer: Currently undergoing radiation therapy. Supplemental oxygen as needed. Nebs as needed. Oncology and Pulmonology on board. CXR improving anemia with positive hem-occult: Likely secondary to the above. Hemoglobin stable. No signs of bleeding. Monitor CBC. Transfuse if indicated. s/p EGD with gastritis and esophagitis- continue PPI Acute renal failure: Creatinine previously 0.77 on 11/02/16, slowly improving. was on Renal replacement therapy. Generalized weakness: Secondary to the above. Continue PT. Nisa UTI: S/P treatment with fluconazole. 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 Continue doxazosin. Dysphagia and malnutrition: Continue mechanical soft diet per speech therapy. Tolerating tube feedings. Continue Megace for appetite stimulation. questionable PEG dislodgement reported on 01/30- however PEG looked ok on XR- ok to use per GI- Intermittent Diarrhea and Constipation: Held scheduled stool softeners for now. Check stool studies if further episodes. Diarrhea improved. Hypertension: controlled Orthostatic dizziness: Patient complains of dizziness when sitting. + orthostatic BP. Adjust BP meds as indicated. Continue PT. DVT prophylaxis: SCD's Discharge Planning dc planning to SNF in progress. Discharge Planning Expected to discharge to SNF soon Joselo Cardenas MD February 01, 2017 08:42
[2017-02-01] MEDS: FERROUS SULFATE 300 MG /5ML UDC PO SCH (08:53)
[2017-02-01] MEDS: NIFEdipine 90 MG SUSTAINED RELEASE TAB PO SCH (08:53)
[2017-02-01] MEDS: PANTOPRAZOLE SOD 40 MG DELAYED RELEASE TAB PO SCH (08:53)
[2017-02-01] MEDS: SODIUM CHLORIDE 0.9% FLUSH 5 ML FLUSH FLUSH SCH ×2 (08:54→21:29)
[2017-02-01] MEDS: MEGESTROL ACETATE SUSP 400 MG/10 ML CUP PO SCH (08:54)
[2017-02-01] MEDS: PHENYTOIN SUSP 100 MG/4 ML CUP PO SCH ×2 (08:54→21:29)
[2017-02-01] MEDS: FLUTICASONE PROPIONATE 50 MCG/ACT 16 GM NASAL SPRAY EACH NARE SCH (08:55)
[2017-02-01] MEDS: guaiFENesin E.R. 600 MG TAB PO SCH (21:29)
[2017-02-01] MEDS: DOXAZOSIN MESYLATE 4 MG TAB PO SCH (21:29)
[2017-02-01] MEDS: ATORVASTATIN 40 MG TAB PO SCH (21:29)
[2017-02-02] VITALS (10 sets, daily range): BP systolic 98–138; BP diastolic 60–69; PULSE 92–111; RESP 16–20; TEMP 97–99.5; O2SAT 95–99
[2017-02-02] MEDS: ACETAMINOPHEN/HYDROcodone 325 MG/5 MG TAB PO PRN (01:37)
[2017-02-02] MEDS: cloNIDine HCL 0.1 MG TAB PO SCH ×3 (05:35→22:00)
--- NOTE | 2017-02-02 08:15 | HHI.PR ---
Subjective Remarks This is a pleasant 71 y/o Male on Radiotherapy 17 of 25 treatments, PEG tube okay to continue using as per GI specialist for Squamous Cell Carcinoma of the left Lung. Palliative Care following, had VDRF, Acute renal failure on Renal replacement therapy, Large bladder mass concerning for cancer, Code Status DNR, but continue aggressive management. 02/02: as per Meteorologist In Charge notes he has a Complex case for Discharge plan, no facility has accepted him due to the responsibility for Radiation and Chemotherapy treatments, mcc goal is to return to [place] with family after he completes his Radiation Therapy and Medically stable. seen in his room in the presence of nurse Miss Wick, no complaint, no nausea, vomit or diarrhea. Objective Vital Signs Date Time Temp Pulse Resp B/P Pulse Ox O2 Delivery O2 Flow Rate FiO2 02/02/17 04:00 97.0 100 18 101/66 97 02/02/17 00:00 99.0 96 16 138/69 99 02/01/17 21:40 98 02/01/17 21:40 Nasal Cannula 2.00 02/01/17 20:00 98.2 100 18 102/56 97 02/01/17 17:02 100 Nasal Cannula 2.00 02/01/17 15:50 99.3 95 20 107/66 100 02/01/17 11:50 99.6 105 20 115/68 99 02/01/17 09:19 96 Nasal Cannula 2.00 I/O 02/01/17 02/01/17 02/01/17 02/02/17 02/02/17 02/02/17 07:00 15:00 23:00 07:00 15:00 23:00 Intake Total 1167 ml 120 ml 240 ml 720 ml Output Total 400 ml 700 ml 525 ml 400 ml Balance 767 ml -580 ml -285 ml 320 ml Intake Oral 480 ml 120 ml 240 ml 720 ml Tube Feeding 687 ml Output Urine Total 400 ml 700 ml 525 ml 400 ml Bladder Scan Volume Amount 432 ml # Bowel Movements 1 Imaging Last Impressions Chest X-Ray 01/31/17 0600 Signed Impressions: Service Date/Time: Tuesday, January 31, 2017 06:38 - CONCLUSION: Improved aeration of the left lower lung. Tono Vazquez MD Abdomen X-Ray 01/30/17 0000 Signed Impressions: Service Date/Time: January 10:55 - CONCLUSION: 1. No evidence for leakage or obstruction after injection of gastrostomy tube. Ken Crandall MD Central Venous Line 01/14/17 1150 Signed Impressions: Service Date/Time: Saturday, January 14, 2017 11:50 - CONCLUSION: Uncomplicated Permcath removal. Beto Perry MD Lower Extremity Ultrasound 01/06/17 0000 Signed Impressions: Service Date/Time: Friday, January 06, 2017 09:02 - CONCLUSION: Normal examination. Shawn Reyes MD Upper Extremity Ultrasound 12/11/16 1506 Signed Impressions: Service Date/Time: Sunday, December 11, 2016 18:00 - CONCLUSION: Superficial thrombophlebitis, extensive edema and nonspecific fluid collections in the subcutaneous tissues. Shawn Reyes MD Head CT 12/11/16 0000 Signed Impressions: Service Date/Time: Sunday, December 11, 2016 20:00 - CONCLUSION: Slight atrophic and small vessel ischemic changes without any evidence for acute hemorrhage or mass effect. Shawn Reyes MD Renal Ultrasound 12/09/16 0000 Signed Impressions: Service Date/Time: Friday, December 09, 2016 15:16 - CONCLUSION: 1. 8.4 cm mass lesion at the base of the bladder. This may represent an intrinsic mass of the bladder versus a prominent anterior lobe of the prostate. 2. Otherwise, urinary bladder is partially decompressed with a Lipscomb catheter. 3. Both kidneys are sonographically normal. Roby Horta MD Procedures 12/11- EGD- esophagitis, gastritis, duodenitis, PEG placement Other Results No new laboratory. Objective Remarks GENERAL: in no apparent distress. CARDIOVASCULAR: Regular rate and regular rhythm without murmurs, gallops, or rubs. RESPIRATORY: Clear to auscultation. Breath sounds equal bilaterally. No wheezes , rales, or rhonchi. GASTROINTESTINAL: Abdomen soft, non-tender, nondistended. Normal, active bowel sounds- PEG in place MUSCULOSKELETAL: Extremities without clubbing, cyanosis, or edema. NEURO: Alert & Oriented x4 to person, place, time, situation. Moves all ext x4 Lipscomb Cath in place. Medications and IVs Current Medications Medications (Trade) Dose Ordered Sig/Luis Carlos Route Start Time Stop Time Status Last Admin (NS Flush) 2 ml UNSCH PRN FLUSH 12/05/16 17:00 (NS Flush) 2 ml BID FLUSH 12/05/16 21:00 02/01/17 21:29 (Zofran Inj) 4 mg Q6H PRN IVP 12/05/16 18:00 (Dulcolax Supp) 10 mg DAILY PRN NV 12/05/16 18:00 (Narcan Inj) 0.4 mg UNSCH PRN IV 12/05/16 17:00 (Ferrous Sulfate Liq) 300 mg DAILY PO 12/06/16 09:00 02/01/17 08:53 (Lipitor) 40 mg HS PO 12/05/16 21:00 02/01/17 21:29 (Lasix Liq) 40 mg DAILY TUBE 12/06/16 09:00 Hold 12/20/16 08:50 (Jacinda-Colace) 2 tab BID PRN PO 12/05/16 19:45 01/29/17 23:19 (Lactulose Liq) 30 ml TID PRN PO 12/05/16 19:45 01/19/17 09:58 Magnesium Hydroxide 30 ml 30 ml Q6H PRN PO 12/05/16 19:45 01/29/17 09:00 (NS 1000 ml Inj) 1,000 ml @ 0 mls/hr Q0M PRN IV 12/06/16 12:11 12/12/16 09:33 Heparin Sodium (Porcine) 8000 units 8,000 units UNSCH PRN IVF 12/06/16 12:15 Sodium Chloride 1,000 ml @ 200 mls/hr Q5H PRN IV 12/06/16 12:11 (NS 1000 ml Inj) 1,000 ml @ 0 mls/hr Q0M PRN IV 12/06/16 12:11 (Mannitol Inj) 12.5 gm UNSCH PRN IV 12/06/16 12:15 (Albumin 25% Inj) 25 gm UNSCH PRN IV 12/06/16 12:15 (NS Flush) 5 ml UNSCH PRN IVF 12/06/16 12:15 (Heparin Inj) UNSCH PRN .XX 12/06/16 12:15 12/14/16 16:39 (Gentamicin (Dialysis) Inj) 20 mg UNSCH PRN IV 12/06/16 12:15 12/14/16 16:39 (Zofran Inj) 4 mg UNSCH PRN IV 12/06/16 12:15 (Tylenol) 650 mg UNSCH PRN PO 12/06/16 12:15 12/14/16 07:54 (Benadryl) 25 mg UNSCH PRN PO 12/06/16 12:15 (Nitrostat Sl) 0.4 mg UNSCH PRN SL 12/06/16 12:15 (Catapres) 0.1 mg UNSCH PRN PO 12/06/16 12:15 12/19/16 06:27 (Epogen Inj) 10,000 units UNSCH PRN IV 12/06/16 12:15 12/14/16 16:39 (Gelfoam 12 Mm/7 Mm Top) 1 foam UNSCH PRN TOP 12/06/16 12:15 (Megace Liq) 400 mg DAILY PO 12/08/16 09:00 02/01/17 08:54 (Heparin Inj) 5,000 units Q12HR SQ 12/08/16 21:00 Hold 01/13/17 09:37 (Dilantin Liq) 300 mg Q12HR PO 12/08/16 21:00 02/01/17 21:29 Fluticasone Propionate 2 spray 2 spray DAILY EACH NARE 12/18/16 12:00 01/31/17 07:57 (1/2 NS 1000 ml Inj) 1,000 ml @ 65 mls/hr [id number] IV 12/20/16 10:00 Hold 12/24/16 21:10 (Protonix) 40 mg DAILY PO 12/25/16 10:30 02/01/17 08:53 Miscellaneous Information Patient in critical care unit? Ass... Q361D .XX 12/25/16 22:30 12/25/16 22:30 (Procardia Xl) 90 mg DAILY PO 12/27/16 09:00 02/01/17 08:53 (Pill Splitter) 1 ea UNSCH PRN OTHER 12/26/16 19:00 12/27/16 10:33 (Catapres) 0.1 mg Q8HR PO 01/03/17 22:00 02/02/17 05:35 (Morphine Inj) 2 mg Q3H PRN IV PUSH 01/13/17 05:15 5/17 08:31 (Ativan Inj) 1 mg Q4H PRN IV PUSH 01/13/17 05:15 01/13/17 09:43 (Lasix Inj) 20 mg Q6HR PRN IV PUSH 01/13/17 05:15 (Milk Of Magnesia Liq) 30 ml BID PRN PO 01/19/17 10:45 01/28/17 11:44 (Tums Chew) 500 mg Q6H PRN CHEW 01/27/17 15:00 01/29/17 15:20 ([place] 5-325 Mg) 1 tab Q4H PRN PO 01/29/17 08:15 ([place] 5-325 Mg) 2 tab Q4H PRN PO 01/29/17 08:15 02/02/17 01:37 (Cardura) 8 mg HS PO 01/29/17 21:00 02/01/17 21:29 (Mucinex Er) 600 mg BID PO 02/01/17 21:00 02/01/17 21:29 A/P Assessment and Plan Squamous cell lung cancer: Currently undergoing radiation therapy. Supplemental oxygen as needed. Nebs as needed. Oncology and Pulmonology on board. CXR improving anemia with positive hem-occult: Likely secondary to the above. Hemoglobin decreased to 7.1. No signs of bleeding. for blood transfusion s/p EGD with gastritis and esophagitis- continue PPI Acute renal failure: Creatinine previously 0.77 on 11/02/16, slowly improving. was on Renal replacement therapy. Generalized weakness: Secondary to the above. Continue PT. Nisa UTI: S/P treatment with fluconazole. 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 Continue doxazosin. Dysphagia and malnutrition: Continue mechanical soft diet per speech therapy. Tolerating tube feedings. Continue Megace for appetite stimulation. questionable PEG dislodgement reported on 01/30- however PEG looked ok on XR- ok to use per GI- Intermittent Diarrhea and Constipation: Held scheduled stool softeners for now. Check stool studies if further episodes. Diarrhea improved. Hypertension: controlled Orthostatic dizziness: Patient complains of dizziness when sitting. + orthostatic BP. Adjust BP meds as indicated. Continue PT. DVT prophylaxis: SCD's Discharge Planning dc planning to SNF in progress. Discharge Planning Expected to discharge to SNF soon Joselo Cardenas MD February 02, 2017 08:15
[2017-02-02] MEDS: FLUTICASONE PROPIONATE 50 MCG/ACT 16 GM NASAL SPRAY EACH NARE SCH (09:00)
[2017-02-02] MEDS: SODIUM CHLORIDE 0.9% FLUSH 5 ML FLUSH FLUSH SCH ×2 (09:00→20:24)
[2017-02-02] MEDS: FERROUS SULFATE 300 MG /5ML UDC PO SCH (09:45)
[2017-02-02] MEDS: PHENYTOIN SUSP 100 MG/4 ML CUP PO SCH ×2 (09:45→20:20)
[2017-02-02] MEDS: MEGESTROL ACETATE SUSP 400 MG/10 ML CUP PO SCH (09:45)
[2017-02-02] MEDS: PANTOPRAZOLE SOD 40 MG DELAYED RELEASE TAB PO SCH (09:45)
[2017-02-02] MEDS: guaiFENesin E.R. 600 MG TAB PO SCH ×2 (09:45→20:20)
[2017-02-02] MEDS: NIFEdipine 90 MG SUSTAINED RELEASE TAB PO SCH (09:50)
[2017-02-02 11:02] LABS: AUTOMATED NEUTROPHIL # 6.8 TH/MM3 (1.8-7.7); BASOPHIL # 0.1 TH/MM3 (0-0.2); EOSINOPHIL # 0.9 TH/MM3 (0-0.4); EOSINOPHIL % 9.8 % (0.0-4.0); HEMATOCRIT 22.2 % (39.0-51.0); LYMPH % 9.4 % (9.0-44.0); LYMPHOCYTE # 0.9 TH/MM3 (1.0-4.8); MEAN CELL VOLUME 85.1 FL (80.0-100.0); MEAN CORPUSCULAR HEMOGLOBIN 27.3 PG (27.0-34.0); MONO % 9.6 % (0.0-8.0); NEUT % 70.2 % (16.0-70.0); PLATELET COUNT 411 TH/MM3 (150-450); RED BLOOD COUNT 2.61 MIL/MM3 (4.50-5.90); RED CELL DISTRIBUTION WIDTH 15.8 % (11.6-17.2); WHITE BLOOD COUNT 9.7 TH/MM3 (4.0-11.0)
[2017-02-02 11:06] LABS: HEMO FLAGS AUTO DIFF
[2017-02-02 11:34] LABS: BICARBONATE 22.5 MEQ/L (21.0-32.0); MAGNESIUM 1.9 MG/DL (1.5-2.5); POTASSIUM 4.8 MEQ/L (3.5-5.1)
[2017-02-02 11:39] LABS: SCAN/DIFF AUTO DIFF CONFIRMED
[2017-02-02] MEDS ORDERED: FUROSEMIDE 20 MG/2 ML VIAL IV PUSH ONE ×2 (16:00→19:45)
[2017-02-02] MEDS ORDERED: diphenhydrAMINE HCL 25 MG CAP PO ONE (19:45)
[2017-02-02] MEDS ORDERED: ACETAMINOPHEN 325 MG TAB PO ONE (19:45)
[2017-02-02] MEDS: ATORVASTATIN 40 MG TAB PO SCH (20:20)
[2017-02-02] MEDS: DOXAZOSIN MESYLATE 4 MG TAB PO SCH (20:20)
[2017-02-03] VITALS (9 sets, daily range): BP systolic 110–130; BP diastolic 68–76; PULSE 101–109; RESP 16–19; TEMP 97.4–98.9; O2SAT 94–100
[2017-02-03] MEDS ORDERED: ACETAMINOPHEN 325 MG TAB PO ONE (01:00)
[2017-02-03] MEDS ORDERED: diphenhydrAMINE HCL 25 MG CAP PO ONE (01:00)
[2017-02-03] MEDS: cloNIDine HCL 0.1 MG TAB PO SCH ×3 (05:15→21:24)
[2017-02-03] MEDS: FERROUS SULFATE 300 MG /5ML UDC PO SCH (08:02)
[2017-02-03] MEDS: guaiFENesin E.R. 600 MG TAB PO SCH ×2 (08:02→21:24)
[2017-02-03] MEDS: NIFEdipine 90 MG SUSTAINED RELEASE TAB PO SCH (08:02)
[2017-02-03] MEDS: PANTOPRAZOLE SOD 40 MG DELAYED RELEASE TAB PO SCH (08:02)
[2017-02-03] MEDS: MEGESTROL ACETATE SUSP 400 MG/10 ML CUP PO SCH (08:02)
[2017-02-03] MEDS: PHENYTOIN SUSP 100 MG/4 ML CUP PO SCH ×2 (08:02→21:24)
[2017-02-03] MEDS: SODIUM CHLORIDE 0.9% FLUSH 5 ML FLUSH FLUSH SCH ×2 (08:03→21:00)
[2017-02-03] MEDS: FLUTICASONE PROPIONATE 50 MCG/ACT 16 GM NASAL SPRAY EACH NARE SCH (08:03)
--- NOTE | 2017-02-03 08:20 | HHI.PR ---
Subjective Remarks This is a pleasant 71 y/o Male on Radiotherapy 17 of 25 treatments, PEG tube okay to continue using as per GI specialist for Squamous Cell Carcinoma of the left Lung. Palliative Care following, had VDRF, Acute renal failure on Renal replacement therapy, Large bladder mass concerning for cancer, Code Status DNR, but continue aggressive management. 02/03: as per Form Setter [employer] Forms notes he has a Complex case for Discharge plan, no facility has accepted him due to the responsibility for Radiation and Chemotherapy treatments, mcc goal is to return to [place] with family after he completes his Radiation Therapy and Medically stable. seen in his room in the presence of nurse Miss Wick, No nausea, vomit or diarrhea. Objective Vital Signs Date Time Temp Pulse Resp B/P Pulse Ox O2 Delivery O2 Flow Rate FiO2 02/03/17 08:10 97.4 108 18 117/70 97 02/03/17 08:09 Nasal Cannula 2.00 21 02/03/17 04:56 97.7 106 16 119/70 96 02/03/17 02:24 98.8 109 16 130/76 97 02/03/17 01:53 98.0 105 16 110/75 98 02/03/17 00:45 98.1 102 16 115/73 99 02/02/17 22:35 98.1 107 16 98/61 99 02/02/17 22:16 98.0 98 16 106/60 98 02/02/17 20:20 Nasal Cannula 2.00 02/02/17 20:00 99.5 103 17 104/63 98 02/02/17 20:00 92 02/02/17 15:50 99.1 98 20 109/65 95 02/02/17 11:50 97.9 100 20 110/62 99 02/02/17 09:45 Nasal Cannula 2.00 21 02/02/17 08:52 96 Nasal Cannula 2.00 I/O 02/02/17 02/02/17 02/02/17 02/03/17 02/03/17 02/03/17 07:00 15:00 23:00 07:00 15:00 23:00 Intake Total 720 ml 240 ml 60 ml 240 ml Output Total 400 ml 600 ml 800 ml 600 ml Balance 320 ml -360 ml -740 ml -360 ml Intake Oral 720 ml 240 ml 60 ml 240 ml Output Urine Total 400 ml 600 ml 800 ml 600 ml # Bowel Movements 0 0 0 Result Diagram: 02/02/17 1004 02/02/17 1004 Imaging Last Impressions Chest X-Ray 01/31/17 0600 Signed Impressions: Service Date/Time: Tuesday, January 31, 2017 06:38 - CONCLUSION: Improved aeration of the left lower lung. Tono Vazquez MD Abdomen X-Ray 01/30/17 0000 Signed Impressions: Service Date/Time: January 10:55 - CONCLUSION: 1. No evidence for leakage or obstruction after injection of gastrostomy tube. Ken Crandall MD Central Venous Line 01/14/17 1150 Signed Impressions: Service Date/Time: Saturday, January 14, 2017 11:50 - CONCLUSION: Uncomplicated Permcath removal. Beto Perry MD Lower Extremity Ultrasound 01/06/17 0000 Signed Impressions: Service Date/Time: Friday, January 06, 2017 09:02 - CONCLUSION: Normal examination. Shawn Reyes MD Upper Extremity Ultrasound 12/11/16 1506 Signed Impressions: Service Date/Time: Sunday, December 11, 2016 18:00 - CONCLUSION: Superficial thrombophlebitis, extensive edema and nonspecific fluid collections in the subcutaneous tissues. Shawn Reyes MD Head CT 12/11/16 0000 Signed Impressions: Service Date/Time: Sunday, December 11, 2016 20:00 - CONCLUSION: Slight atrophic and small vessel ischemic changes without any evidence for acute hemorrhage or mass effect. Shawn Reyes MD Renal Ultrasound 12/09/16 0000 Signed Impressions: Service Date/Time: Friday, December 09, 2016 15:16 - CONCLUSION: 1. 8.4 cm mass lesion at the base of the bladder. This may represent an intrinsic mass of the bladder versus a prominent anterior lobe of the prostate. 2. Otherwise, urinary bladder is partially decompressed with a Lipscomb catheter. 3. Both kidneys are sonographically normal. Roby Horta MD Procedures 12/11- EGD- esophagitis, gastritis, duodenitis, PEG placement Other Results Laboratory Tests Test 02/02/17 02/02/17 10:04 16:31 White Blood Count 9.7 TH/MM3 Red Blood Count 2.61 MIL/MM3 Hemoglobin 7.1 GM/DL Hematocrit 22.2 % Mean Corpuscular Volume 85.1 FL Mean Corpuscular Hemoglobin 27.3 PG Mean Corpuscular Hemoglobin 32.0 % Concent Red Cell Distribution Width 15.8 % Platelet Count 411 TH/MM3 Mean Platelet Volume 6.5 FL Neutrophils (%) (Auto) 70.2 % Lymphocytes (%) (Auto) 9.4 % Monocytes (%) (Auto) 9.6 % Eosinophils (%) (Auto) 9.8 % Basophils (%) (Auto) 1.0 % Neutrophils # (Auto) 6.8 TH/MM3 Lymphocytes # (Auto) 0.9 TH/MM3 Monocytes # (Auto) 0.9 TH/MM3 Eosinophils # (Auto) 0.9 TH/MM3 Basophils # (Auto) 0.1 TH/MM3 CBC Comment AUTO DIFF Differential Comment AUTO DIFF CONFIRMED Sodium Level 135 MEQ/L Potassium Level 4.8 MEQ/L Chloride Level 103 MEQ/L Carbon Dioxide Level 22.5 MEQ/L Anion Gap 10 MEQ/L Blood Urea Nitrogen 58 MG/DL Creatinine 1.48 MG/DL Estimat Glomerular Filtration 47 ML/MIN Rate Random Glucose 139 MG/DL Calcium Level 8.4 MG/DL Phosphorus Level 3.0 MG/DL Magnesium Level 1.9 MG/DL Blood Type B POSITIVE Antibody Screen NEGATIVE Prewarmed Antibody Screen NEGATIVE Crossmatch Leukocyte-Reduced Red Blood Cells Blood Bank Comment Objective Remarks GENERAL: in no apparent distress. CARDIOVASCULAR: Regular rate and regular rhythm without murmurs, gallops, or rubs. RESPIRATORY: Clear to auscultation. Breath sounds equal bilaterally. No wheezes , rales, or rhonchi. GASTROINTESTINAL: Abdomen soft, non-tender, nondistended. Normal, active bowel sounds- PEG in place MUSCULOSKELETAL: Extremities without clubbing, cyanosis, or edema. NEURO: Alert & Oriented x4 to person, place, time, situation. Moves all ext x4 Lipscomb Cath in place. Medications and IVs Current Medications Medications (Trade) Dose Ordered Sig/Luis Carlos Route Start Time Stop Time Status Last Admin (NS Flush) 2 ml UNSCH PRN FLUSH 12/05/16 17:00 (NS Flush) 2 ml BID FLUSH 12/05/16 21:00 02/03/17 08:03 (Zofran Inj) 4 mg Q6H PRN IVP 12/05/16 18:00 (Dulcolax Supp) 10 mg DAILY PRN [place] 12/05/16 18:00 (Narcan Inj) 0.4 mg UNSCH PRN IV 12/05/16 17:00 (Ferrous Sulfate Liq) 300 mg DAILY PO 12/06/16 09:00 02/03/17 08:02 (Lipitor) 40 mg HS PO 12/05/16 21:00 02/02/17 20:20 (Lasix Liq) 40 mg DAILY TUBE 12/06/16 09:00 Hold 12/20/16 08:50 (Jacinda-Colace) 2 tab BID PRN PO 12/05/16 19:45 01/29/17 23:19 (Lactulose Liq) 30 ml TID PRN PO 12/05/16 19:45 01/19/17 09:58 Magnesium Hydroxide 30 ml 30 ml Q6H PRN PO 12/05/16 19:45 01/29/17 09:00 (NS 1000 ml Inj) 1,000 ml @ 0 mls/hr Q0M PRN IV 12/06/16 12:11 12/12/16 09:33 Heparin Sodium (Porcine) 8000 units 8,000 units UNSCH PRN IVF 12/06/16 12:15 Sodium Chloride 1,000 ml @ 200 mls/hr Q5H PRN IV 12/06/16 12:11 (NS 1000 ml Inj) 1,000 ml @ 0 mls/hr Q0M PRN IV 12/06/16 12:11 (Mannitol Inj) 12.5 gm UNSCH PRN IV 12/06/16 12:15 (Albumin 25% Inj) 25 gm UNSCH PRN IV 12/06/16 12:15 (NS Flush) 5 ml UNSCH PRN IVF 12/06/16 12:15 (Heparin Inj) UNSCH PRN .XX 12/06/16 12:15 12/14/16 16:39 (Gentamicin (Dialysis) Inj) 20 mg UNSCH PRN IV 12/06/16 12:15 12/14/16 16:39 (Zofran Inj) 4 mg UNSCH PRN IV 12/06/16 12:15 (Tylenol) 650 mg UNSCH PRN PO 12/06/16 12:15 12/14/16 07:54 (Benadryl) 25 mg UNSCH PRN PO 12/06/16 12:15 (Nitrostat Sl) 0.4 mg UNSCH PRN SL 12/06/16 12:15 (Catapres) 0.1 mg UNSCH PRN PO 12/06/16 12:15 12/19/16 06:27 (Epogen Inj) 10,000 units UNSCH PRN IV 12/06/16 12:15 12/14/16 16:39 (Gelfoam 12 Mm/7 Mm Top) 1 foam UNSCH PRN TOP 12/06/16 12:15 (Megace Liq) 400 mg DAILY PO 12/08/16 09:00 02/03/17 08:02 (Heparin Inj) 5,000 units Q12HR SQ 12/08/16 21:00 Hold 01/13/17 09:37 (Dilantin Liq) 300 mg Q12HR PO 12/08/16 21:00 02/03/17 08:02 Fluticasone Propionate 2 spray 2 spray DAILY EACH NARE 12/18/16 12:00 01/31/17 07:57 (1/2 NS 1000 ml Inj) 1,000 ml @ 65 mls/hr [id number] IV 12/20/16 10:00 Hold 12/24/16 21:10 (Protonix) 40 mg DAILY PO 12/25/16 10:30 02/03/17 08:02 Miscellaneous Information Patient in critical care unit? Ass... Q361D .XX 12/25/16 22:30 12/25/16 22:30 (Procardia Xl) 90 mg DAILY PO 12/27/16 09:00 02/03/17 08:02 (Pill Splitter) 1 ea UNSCH PRN OTHER 12/26/16 19:00 12/27/16 10:33 (Catapres) 0.1 mg Q8HR PO 01/03/17 22:00 02/03/17 05:15 (Morphine Inj) 2 mg Q3H PRN IV PUSH 01/13/17 05:15 01/27/17 08:31 (Ativan Inj) 1 mg Q4H PRN IV PUSH 01/13/17 05:15 01/13/17 09:43 (Lasix Inj) 20 mg Q6HR PRN IV PUSH 01/13/17 05:15 (Milk Of Magnesia Liq) 30 ml BID PRN PO 01/19/17 10:45 01/28/17 11:44 (Tums Chew) 500 mg Q6H PRN CHEW 01/27/17 15:00 01/29/17 15:20 ([place] 5-325 Mg) 1 tab Q4H PRN PO 01/29/17 08:15 ([place] 5-325 Mg) 2 tab Q4H PRN PO 01/29/17 08:15 02/02/17 01:37 (Cardura) 8 mg HS PO 01/29/17 21:00 02/02/17 20:20 (Mucinex Er) 600 mg BID PO 02/01/17 21:00 02/03/17 08:02 A/P Assessment and Plan Squamous cell lung cancer: Currently undergoing radiation therapy. Supplemental oxygen as needed. Nebs as needed. Oncology and Pulmonology on board. CXR improving anemia with positive hem-occult: Likely secondary to the above. Hemoglobin decreased to 7.1. No signs of bleeding. for blood transfusion s/p EGD with gastritis and esophagitis- continue PPI Acute renal failure: Creatinine previously 0.77 on 11/02/16, slowly improving. was on Renal replacement therapy. Generalized weakness: Secondary to the above. Continue PT. Nisa UTI: S/P treatment with fluconazole. 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 Continue doxazosin. Dysphagia and malnutrition: Continue mechanical soft diet per speech therapy. Tolerating tube feedings. Continue Megace for appetite stimulation. questionable PEG dislodgement reported on 01/30- however PEG looked ok on XR- ok to use per GI- Intermittent Diarrhea and Constipation: Held scheduled stool softeners for now. Check stool studies if further episodes. Diarrhea improved. Hypertension: controlled Orthostatic dizziness: Patient complains of dizziness when sitting. + orthostatic BP. Adjust BP meds as indicated. Continue PT. No changes to anterior assessment. DVT prophylaxis: SCD's Discharge Planning Expected to discharge to SNF soon Joselo Cardenas MD February 03, 2017 08:20
--- NOTE | 2017-02-03 21:16 | HHI.PR ---
Subjective Remarks . Afebrile. Tolerates PO, good appetite On 3LNC No fever Had radiation today CXR improved aeration of LLL Had PRBC Objective Vital Signs Vital Signs Date Time Temp Pulse Resp B/P Pulse Ox O2 Delivery O2 Flow Rate FiO2 02/03/17 20:59 96 Nasal Cannula 2.00 02/03/17 16:41 98.2 105 19 117/70 97 02/03/17 12:00 98.9 103 19 119/72 100 02/03/17 08:10 97.4 108 18 117/70 97 02/03/17 08:10 94 Nasal Cannula 2.00 02/03/17 08:09 Nasal Cannula 2.00 21 02/03/17 04:56 97.7 106 16 119/70 96 02/03/17 02:24 98.8 109 16 130/76 97 02/03/17 01:53 98.0 105 16 110/75 98 02/03/17 00:45 98.1 102 16 115/73 99 02/02/17 22:35 98.1 107 16 98/61 99 02/02/17 22:16 98.0 98 16 106/60 98 I/O 02/02/17 02/02/17 02/02/17 02/03/17 02/03/17 02/03/17 07:00 15:00 23:00 07:00 15:00 23:00 Intake Total 720 ml 240 ml 60 ml 240 ml 440 ml Output Total 400 ml 600 ml 800 ml 600 ml 350 ml Balance 320 ml -360 ml -740 ml -360 ml 90 ml Intake Oral 720 ml 240 ml 60 ml 240 ml 440 ml Output Urine Total 400 ml 600 ml 800 ml 600 ml 350 ml # Bowel Movements 0 0 0 1 Result Diagram: 02/02/17 1004 02/02/17 1004 Objective Remarks GENERAL: Patient is lying in bed in NAD SKIN: Warm and dry. HEAD: Normocephalic. EYES: No scleral icterus. No injection or drainage. NECK: Supple, trachea midline. No JVD or lymphadenopathy. CARDIOVASCULAR: Regular rate and rhythm without murmurs, gallops, or rubs. RESPIRATORY: Breath sounds equal bilaterally. No accessory muscle use. GASTROINTESTINAL: Abdomen soft, non-tender, nondistended. MUSCULOSKELETAL: No cyanosis, or edema. BACK: Nontender without obvious deformity. No CVA tenderness. 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 Monitor renal function, , Supplement 02 to keep sat >90% Aerosol nebs Works with PT Monitor H/H Valeriy Wilkins MD February 03, 2017 21:16
[2017-02-03] MEDS: DOXAZOSIN MESYLATE 4 MG TAB PO SCH (21:24)
[2017-02-03] MEDS: ATORVASTATIN 40 MG TAB PO SCH (21:24)
[2017-02-04] VITALS (8 sets, daily range): BP systolic 108–122; BP diastolic 64–74; PULSE 98–111; RESP 16–20; TEMP 97.5–98.6; O2SAT 94–99
[2017-02-04] MEDS: cloNIDine HCL 0.1 MG TAB PO SCH ×3 (05:28→20:37)
[2017-02-04] MEDS: SODIUM CHLORIDE 0.9% FLUSH 5 ML FLUSH FLUSH SCH ×2 (09:00→20:38)
[2017-02-04] MEDS: FLUTICASONE PROPIONATE 50 MCG/ACT 16 GM NASAL SPRAY EACH NARE SCH (09:00)
[2017-02-04] MEDS: NIFEdipine 90 MG SUSTAINED RELEASE TAB PO SCH (11:19)
[2017-02-04] MEDS: guaiFENesin E.R. 600 MG TAB PO SCH ×2 (11:19→20:37)
[2017-02-04] MEDS: MEGESTROL ACETATE SUSP 400 MG/10 ML CUP PO SCH (11:19)
[2017-02-04] MEDS: FERROUS SULFATE 300 MG /5ML UDC PO SCH (11:19)
[2017-02-04] MEDS: PANTOPRAZOLE SOD 40 MG DELAYED RELEASE TAB PO SCH (11:19)
[2017-02-04] MEDS: PHENYTOIN SUSP 100 MG/4 ML CUP PO SCH ×2 (11:21→20:38)
--- NOTE | 2017-02-04 12:54 | HHI.PR ---
Subjective Remarks This is a pleasant 71 y/o Male on Radiotherapy 17 of 25 treatments, PEG tube okay to continue using as per GI specialist for Squamous Cell Carcinoma of the left Lung. Palliative Care following, had VDRF, Acute renal failure on Renal replacement therapy, Large bladder mass concerning for cancer, Code Status DNR, but continue aggressive management. 02/03: as per Campus Administrator notes he has a Complex case for Discharge plan, no facility has accepted him due to the responsibility for Radiation and Chemotherapy treatments, fpc goal is to return to [place] with family after he completes his Radiation Therapy and Medically stable. seen in his room in the presence of nurse Miss Wick, No nausea, vomit or diarrhea. 02/04: Stable in his bedroom, no new issues, at this time with two CNAs cleaning him, followed by insurance marketing specialist due to Respiratory insufficiency, Opacification of Left Hemithorax unchanged, Squamous Cell Ca involving left main stem status post Endobronchial stent placement, status post Radiation therapy, status post Hemoptysis, recommended to continue Oxygen, Bronchodilators, continue PT. no new complaints no nausea, vomit or diarrhea. Objective Vital Signs Date Time Temp Pulse Resp B/P Pulse Ox O2 Delivery O2 Flow Rate FiO2 02/04/17 10:15 Nasal Cannula 2.00 21 02/04/17 09:27 94 Nasal Cannula 2.00 02/04/17 08:00 97.9 110 20 108/73 97 02/04/17 04:00 97.9 111 16 110/67 97 02/04/17 00:00 97.9 109 18 115/67 99 02/03/17 20:59 96 Nasal Cannula 2.00 02/03/17 20:00 97.7 101 17 116/68 96 02/03/17 20:00 109 02/03/17 20:00 Nasal Cannula 2.00 02/03/17 16:41 98.2 105 19 117/70 97 I/O 02/03/17 02/03/17 02/03/17 02/04/17 02/04/17 02/04/17 06:59 14:59 22:59 06:59 14:59 22:59 Intake Total 240 ml 440 ml 240 ml 500 ml Output Total 600 ml 350 ml 700 ml Balance -360 ml 90 ml -460 ml 500 ml Intake Oral 240 ml 440 ml 240 ml Tube Feeding 500 ml Output Urine Total 600 ml 350 ml 700 ml Bladder Scan Volume Amount 432 ml 432 ml # Bowel Movements 0 1 1 Result Diagram: 02/02/17 1004 02/02/17 1004 Imaging Last Impressions Chest X-Ray 01/31/17 0600 Signed Impressions: Service Date/Time: Tuesday, January 31, 2017 06:38 - CONCLUSION: Improved aeration of the left lower lung. Tono Vazquez MD Abdomen X-Ray 01/30/17 0000 Signed Impressions: Service Date/Time: January 10:55 - CONCLUSION: 1. No evidence for leakage or obstruction after injection of gastrostomy tube. Ken Crandall MD Central Venous Line 01/14/17 1150 Signed Impressions: Service Date/Time: Saturday, January 14, 2017 11:50 - CONCLUSION: Uncomplicated Permcath removal. Beto Perry MD Lower Extremity Ultrasound 01/06/17 0000 Signed Impressions: Service Date/Time: Friday, January 06, 2017 09:02 - CONCLUSION: Normal examination. Shawn Reyes MD Upper Extremity Ultrasound 12/11/16 1506 Signed Impressions: Service Date/Time: Sunday, December 11, 2016 18:00 - CONCLUSION: Superficial thrombophlebitis, extensive edema and nonspecific fluid collections in the subcutaneous tissues. Shawn Reyes MD Head CT 12/11/16 0000 Signed Impressions: Service Date/Time: Sunday, December 11, 2016 20:00 - CONCLUSION: Slight atrophic and small vessel ischemic changes without any evidence for acute hemorrhage or mass effect. Shawn Reyes MD Renal Ultrasound 12/09/16 0000 Signed Impressions: Service Date/Time: Friday, December 09, 2016 15:16 - CONCLUSION: 1. 8.4 cm mass lesion at the base of the bladder. This may represent an intrinsic mass of the bladder versus a prominent anterior lobe of the prostate. 2. Otherwise, urinary bladder is partially decompressed with a Lipscomb catheter. 3. Both kidneys are sonographically normal. Roby Horta MD Procedures 12/11- EGD- esophagitis, gastritis, duodenitis, PEG placement Other Results Laboratory Tests Test 02/02/17 02/02/17 10:04 16:31 White Blood Count 9.7 TH/MM3 Red Blood Count 2.61 MIL/MM3 Hemoglobin 7.1 GM/DL Hematocrit 22.2 % Mean Corpuscular Volume 85.1 FL Mean Corpuscular Hemoglobin 27.3 PG Mean Corpuscular Hemoglobin 32.0 % Concent Red Cell Distribution Width 15.8 % Platelet Count 411 TH/MM3 Mean Platelet Volume 6.5 FL Neutrophils (%) (Auto) 70.2 % Lymphocytes (%) (Auto) 9.4 % Monocytes (%) (Auto) 9.6 % Eosinophils (%) (Auto) 9.8 % Basophils (%) (Auto) 1.0 % Neutrophils # (Auto) 6.8 TH/MM3 Lymphocytes # (Auto) 0.9 TH/MM3 Monocytes # (Auto) 0.9 TH/MM3 Eosinophils # (Auto) 0.9 TH/MM3 Basophils # (Auto) 0.1 TH/MM3 CBC Comment AUTO DIFF Differential Comment AUTO DIFF CONFIRMED Sodium Level 135 MEQ/L Potassium Level 4.8 MEQ/L Chloride Level 103 MEQ/L Carbon Dioxide Level 22.5 MEQ/L Anion Gap 10 MEQ/L Blood Urea Nitrogen 58 MG/DL Creatinine 1.48 MG/DL Estimat Glomerular Filtration 47 ML/MIN Rate Random Glucose 139 MG/DL Calcium Level 8.4 MG/DL Phosphorus Level 3.0 MG/DL Magnesium Level 1.9 MG/DL Blood Type B POSITIVE Antibody Screen NEGATIVE Prewarmed Antibody Screen NEGATIVE Crossmatch Leukocyte-Reduced Red Blood Cells Blood Bank Comment Objective Remarks GENERAL: in no apparent distress. CARDIOVASCULAR: Regular rate and regular rhythm without murmurs, gallops, or rubs. RESPIRATORY: Clear to auscultation. Breath sounds equal bilaterally. No wheezes , rales, or rhonchi. GASTROINTESTINAL: Abdomen soft, non-tender, nondistended. Normal, active bowel sounds- PEG in place MUSCULOSKELETAL: Extremities without clubbing, cyanosis, or edema. NEURO: Alert & Oriented x4 to person, place, time, situation. Moves all ext x4 Lipscomb Cath in place. Medications and IVs Current Medications Medications (Trade) Dose Ordered Sig/Luis Carlos Route Start Time Stop Time Status Last Admin (NS Flush) 2 ml UNSCH PRN FLUSH 12/05/16 17:00 (NS Flush) 2 ml BID FLUSH 12/05/16 21:00 02/04/17 09:00 (Zofran Inj) 4 mg Q6H PRN IVP 12/05/16 18:00 (Dulcolax Supp) 10 mg DAILY PRN CO 12/05/16 18:00 (Narcan Inj) 0.4 mg UNSCH PRN IV 12/05/16 17:00 (Ferrous Sulfate Liq) 300 mg DAILY PO 12/06/16 09:00 02/04/17 11:19 (Lipitor) 40 mg HS PO 12/05/16 21:00 02/03/17 21:24 (Lasix Liq) 40 mg DAILY TUBE 12/06/16 09:00 Hold 12/20/16 08:50 (Jacinda-Colace) 2 tab BID PRN PO 12/05/16 19:45 01/29/17 23:19 (Lactulose Liq) 30 ml TID PRN PO 12/05/16 19:45 01/19/17 09:58 Magnesium Hydroxide 30 ml 30 ml Q6H PRN PO 12/05/16 19:45 01/29/17 09:00 (NS 1000 ml Inj) 1,000 ml @ 0 mls/hr Q0M PRN IV 12/06/16 12:11 12/12/16 09:33 Heparin Sodium (Porcine) 8000 units 8,000 units UNSCH PRN IVF 12/06/16 12:15 Sodium Chloride 1,000 ml @ 200 mls/hr Q5H PRN IV 12/06/16 12:11 (NS 1000 ml Inj) 1,000 ml @ 0 mls/hr Q0M PRN IV 12/06/16 12:11 (Mannitol Inj) 12.5 gm UNSCH PRN IV 12/06/16 12:15 (Albumin 25% Inj) 25 gm UNSCH PRN IV 12/06/16 12:15 (NS Flush) 5 ml UNSCH PRN IVF 12/06/16 12:15 (Heparin Inj) UNSCH PRN .XX 12/06/16 12:15 12/14/16 16:39 (Gentamicin (Dialysis) Inj) 20 mg UNSCH PRN IV 12/06/16 12:15 12/14/16 16:39 (Zofran Inj) 4 mg UNSCH PRN IV 12/06/16 12:15 (Tylenol) 650 mg UNSCH PRN PO 12/06/16 12:15 12/14/16 07:54 (Benadryl) 25 mg UNSCH PRN PO 12/06/16 12:15 (Nitrostat Sl) 0.4 mg UNSCH PRN SL 12/06/16 12:15 (Catapres) 0.1 mg UNSCH PRN PO 12/06/16 12:15 12/19/16 06:27 (Epogen Inj) 10,000 units UNSCH PRN IV 12/06/16 12:15 12/14/16 16:39 (Gelfoam 12 Mm/7 Mm Top) 1 foam UNSCH PRN TOP 12/06/16 12:15 (Megace Liq) 400 mg DAILY PO 12/08/16 09:00 02/04/17 11:19 (Heparin Inj) 5,000 units Q12HR SQ 12/08/16 21:00 Hold 01/13/17 09:37 (Dilantin Liq) 300 mg Q12HR PO 12/08/16 21:00 02/04/17 11:21 Fluticasone Propionate 2 spray 2 spray DAILY EACH NARE 12/18/16 12:00 01/31/17 07:57 (1/2 NS 1000 ml Inj) 1,000 ml @ 65 mls/hr [id number] IV 12/20/16 10:00 Hold 12/24/16 21:10 (Protonix) 40 mg DAILY PO 12/25/16 10:30 02/04/17 11:19 Miscellaneous Information Patient in critical care unit? Ass... Q361D .XX 12/25/16 22:30 12/25/16 22:30 (Procardia Xl) 90 mg DAILY PO 12/27/16 09:00 02/04/17 11:19 (Pill Splitter) 1 ea UNSCH PRN OTHER 12/26/16 19:00 12/27/16 10:33 (Catapres) 0.1 mg Q8HR PO 01/03/17 22:00 02/04/17 05:28 (Morphine Inj) 2 mg Q3H PRN IV PUSH 01/13/17 05:15 01/27/17 08:31 (Ativan Inj) 1 mg Q4H PRN IV PUSH 01/13/17 05:15 01/13/17 09:43 (Lasix Inj) 20 mg Q6HR PRN IV PUSH 01/13/17 05:15 (Milk Of Magnesia Liq) 30 ml BID PRN PO 01/19/17 10:45 01/28/17 11:44 (Tums Chew) 500 mg Q6H PRN CHEW 01/27/17 15:00 01/29/17 15:20 ([place] 5-325 Mg) 1 tab Q4H PRN PO 01/29/17 08:15 ([place] 5-325 Mg) 2 tab Q4H PRN PO 01/29/17 08:15 02/02/17 01:37 (Cardura) 8 mg HS PO 01/29/17 21:00 02/03/17 21:24 (Mucinex Er) 600 mg BID PO 02/01/17 21:00 02/04/17 11:19 A/P Assessment and Plan Squamous cell lung cancer: Currently undergoing radiation therapy. Supplemental oxygen as needed. Nebs as needed. Oncology and followed by insurance marketing specialist due to Respiratory insufficiency, Opacification of Left Hemithorax unchanged, Squamous Cell Ca involving left main stem status post Endobronchial stent placement, status post Radiation therapy, status post Hemoptysis, recommended to continue Oxygen, Bronchodilators, continue PT. no new complaints no nausea, vomit or diarrhea. Radiation Therapy anemia with positive hem-occult: Likely secondary to the above. Hemoglobin decreased to 7.1. No signs of bleeding. for blood transfusion s/p EGD with gastritis and esophagitis- continue PPI Acute renal failure: Creatinine previously 0.77 on 11/02/16, slowly improving. was on Renal replacement therapy. follow H and H and transfuse as needed. Generalized weakness: Secondary to the above. Continue PT. Nisa UTI: S/P treatment with fluconazole. 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 Continue doxazosin. Lipscomb cath was changed yesterday night and had some Hematuria probable traumatic. Dysphagia and malnutrition: Continue mechanical soft diet per speech therapy. Tolerating tube feedings. Continue Megace for appetite stimulation. questionable PEG dislodgement reported on 01/30- however PEG looked ok on XR- ok to use per GI- Intermittent Diarrhea and Constipation: Held scheduled stool softeners for now. Check stool studies if further episodes. Diarrhea improved. Hypertension: controlled Orthostatic dizziness: Patient complains of dizziness when sitting. + orthostatic BP. Adjust BP meds as indicated. Continue PT. No changes to anterior assessment. DVT prophylaxis: SCD's Discharge Planning Not ready for discharge Joselo Cardenas MD February 04, 2017 12:54
--- NOTE | 2017-02-04 12:55 | HHI.DS ---
Discharge Summary Admission Date Dec 05, 2016 at 17:04 Admitting Diagnosis Brief History - From Admission 71-year-old male with PMH of HTN, recently diagnosed with large mass obstructing the main bronchus with pathology showing squamous cell ca. The patient came initially to [place] with c/o sob and hemoptysis. CTA revealed complete whiteout of the left lung, associated with possible underlying mass/nodularity of the left hilum. He required intubation with mechanical ventilation and continued to have significant hemoptysis. He was evaluated by CVT, who recommended transfer to [facility] in [place]. He was evaluated by Interventional pulmonology and underwent a bronchoscopy with debulking of a large mass involving the left mainstem bronchus. The left main bronchus was stented. Patient was intubated and difficult to wean off. Patient also had complicated hospitalization with PEA arrest 11/08/16 and ARF which required hemodialysis. Patient was intubated and difficult to wean off . He was also treated with abx levaquin finished course of abx. He also required a Dobbhoff tube for feeding purposes. He was stabilized and sent back to our facility for further continuation of care. The patient is currently severe deconditioned and bed bound. At this time, he has not been staged for his cancer. He is being followed by oncology but will need his acute issues addressed and need to be stronger prior to moving forward with management of his lung cancer. Patient is with respiratory failure requiring O2. He is telling me he feels better that yesterday. Says breathing is better. No chest pain, sob. he is on tube feedings. No n/v/d/c. Says he is not able to eat much by mouth. CBC/BMP: 02/02/17 1004 02/02/17 1004 Discharge Instructions Speech Therapy-Diet Recommends: Regular Joselo Cardenas MD February 04, 2017 12:55 He was also treated with abx levaquin finished course of abx. He also required a Dobbhoff tube for feeding purposes. He was stabilized and sent back to our facility for further continuation of care. The patient is currently severe deconditioned and bed bound. At this time, he has not been staged for his cancer. He is being followed by oncology but will need his acute issues addressed and need to be stronger prior to moving forward with management of his lung cancer. Patient is with respiratory failure requiring O2. He is telling me he feels better that yesterday. Says breathing is better. No chest pain, sob. he is on tube feedings. No n/v/d/c. Says he is not able to eat much by mouth. CBC/BMP: 02/02/17 1004 02/02/17 1004 Significant Findings Laboratory Tests Test 02/02/17 10:04 Red Blood Count 2.61 MIL/MM3 (4.50-5.90) Hemoglobin 7.1 GM/DL (13.0-17.0) Hematocrit 22.2 % (39.0-51.0) Mean Platelet Volume 6.5 FL (7.0-11.0) Neutrophils (%) (Auto) 70.2 % (16.0-70.0) Monocytes (%) (Auto) 9.6 % (0.0-8.0) Eosinophils (%) (Auto) 9.8 % (0.0-4.0) Lymphocytes # (Auto) 0.9 TH/MM3 (1.0-4.8) Eosinophils # (Auto) 0.9 TH/MM3 (0-0.4) Sodium Level 135 MEQ/L (136-145) Blood Urea Nitrogen 58 MG/DL (7-18) Creatinine 1.48 MG/DL (0.60-1.30) Estimat Glomerular Filtration 47 ML/MIN (>89) Rate Random Glucose 139 MG/DL (74-106) Calcium Level 8.4 MG/DL (8.5-10.1) Imaging Last Impressions Chest X-Ray 01/31/17 0600 Signed Impressions: Service Date/Time: Tuesday, January 31, 2017 06:38 - CONCLUSION: Improved aeration of the left lower lung. Tono Vazquez MD Abdomen X-Ray 01/30/17 0000 Signed Impressions: Service Date/Time: January 10:55 - CONCLUSION: 1. No evidence for leakage or obstruction after injection of gastrostomy tube. Ken Crandall MD Central Venous Line 01/14/17 1150 Signed Impressions: Service Date/Time: Saturday, January 14, 2017 11:50 - CONCLUSION: Uncomplicated Permcath removal. Beto Perry MD Lower Extremity Ultrasound 01/06/17 0000 Signed Impressions: Service Date/Time: Friday, January 06, 2017 09:02 - CONCLUSION: Normal examination. Shawn Reyes MD Upper Extremity Ultrasound 12/11/16 1506 Signed Impressions: Service Date/Time: Sunday, December 11, 2016 18:00 - CONCLUSION: Superficial thrombophlebitis, extensive edema and nonspecific fluid collections in the subcutaneous tissues. Shawn Reyes MD Head CT 12/11/16 0000 Signed Impressions: Service Date/Time: Sunday, December 11, 2016 20:00 - CONCLUSION: Slight atrophic and small vessel ischemic changes without any evidence for acute hemorrhage or mass effect. Shawn Reyes MD Renal Ultrasound 12/09/16 0000 Signed Impressions: Service Date/Time: Friday, December 09, 2016 15:16 - CONCLUSION: 1. 8.4 cm mass lesion at the base of the bladder. This may represent an intrinsic mass of the bladder versus a prominent anterior lobe of the prostate. 2. Otherwise, urinary bladder is partially decompressed with a Lipscomb catheter. 3. Both kidneys are sonographically normal. Roby Horta MD PE at Discharge GENERAL: in no apparent distress. CARDIOVASCULAR: Regular rate and regular rhythm without murmurs, gallops, or rubs. RESPIRATORY: Clear to auscultation. Breath sounds equal bilaterally. No wheezes , rales, or rhonchi. GASTROINTESTINAL: Abdomen soft, non-tender, nondistended. Normal, active bowel sounds- PEG in place MUSCULOSKELETAL: Extremities without clubbing, cyanosis, or edema. NEURO: Alert & Oriented x4 to person, place, time, situation. Moves all ext x4 Discharge Instructions Speech Therapy-Diet Recommends: Regular Joselo Cardenas MD February 04, 2017 12:55
[2017-02-04 14:22] LABS: HEMATOCRIT 27.6 % (39.0-51.0)
[2017-02-04] MEDS: CALCIUM CARBONATE 500 MG CHEWABLE TAB CHEW PRN (20:09)
--- NOTE | 2017-02-04 20:25 | HHI.PR ---
Subjective Remarks . Afebrile. Tolerates PO, good appetite On 3LNC No fever Had radiation today CXR improved aeration of LLL Breathing better Objective Vital Signs Vital Signs Date Time Temp Pulse Resp B/P Pulse Ox O2 Delivery O2 Flow Rate FiO2 02/04/17 16:55 98.3 98 20 122/74 98 02/04/17 12:00 98.6 101 20 118/66 96 02/04/17 10:15 Nasal Cannula 2.00 21 02/04/17 09:27 94 Nasal Cannula 2.00 02/04/17 08:00 97.9 110 20 108/73 97 02/04/17 04:00 97.9 111 16 110/67 97 02/04/17 00:00 97.9 109 18 115/67 99 02/03/17 20:59 96 Nasal Cannula 2.00 I/O 02/03/17 02/03/17 02/03/17 02/04/17 02/04/17 02/04/17 07:00 15:00 23:00 07:00 15:00 23:00 Intake Total 240 ml 440 ml 240 ml 1220 ml Output Total 600 ml 350 ml 700 ml 350 ml Balance -360 ml 90 ml -460 ml 870 ml Intake Oral 240 ml 440 ml 240 ml 720 ml Tube Feeding 500 ml Output Urine Total 600 ml 350 ml 700 ml 350 ml Bladder Scan Volume Amount 432 ml 432 ml # Bowel Movements 0 1 1 2 Result Diagram: 02/04/17 1332 02/02/17 1004 Objective Remarks GENERAL: Patient is lying in bed in NAD SKIN: Warm and dry. HEAD: Normocephalic. EYES: No scleral icterus. No injection or drainage. NECK: Supple, trachea midline. No JVD or lymphadenopathy. CARDIOVASCULAR: Regular rate and rhythm without murmurs, gallops, or rubs. RESPIRATORY: Breath sounds equal bilaterally. No accessory muscle use. GASTROINTESTINAL: Abdomen soft, non-tender, nondistended. MUSCULOSKELETAL: No cyanosis, or edema. BACK: Nontender without obvious deformity. No CVA tenderness. Neuro: Awake and alert A/P Assessment and Plan 1)Resp [place] 2)[id number] of left hemithoraxImproved 3)Squamous cell ca involving left main stem s/p endobronchial stent placement s/p XTR 4)s/p Hemoptysis 5)ARF 5)Anemia 6)Leukocytosis 7)HTN 8)UTI Plan Continue with oxygen keep sat >92% Bronchodilators (DuoNeb) S/p stent placement in the left main bronchus at [facility]. Monitor renal function, , Supplement 02 to keep sat >90% Aerosol nebs Works with PT Monitor H/H Valeriy Wilkins MD February 04, 2017 20:25
[2017-02-04] MEDS: ONDANSETRON HCL 4 MG/2 ML VIAL IVP PRN (20:28)
[2017-02-04] MEDS: MORPHINE SULFATE 4 MG/ML INJ IV PUSH PRN (20:29)
[2017-02-04] MEDS: LORazepam 2 MG/ML VIAL IV PUSH PRN (20:30)
[2017-02-04] MEDS: ATORVASTATIN 40 MG TAB PO SCH (20:37)
[2017-02-04] MEDS: DOXAZOSIN MESYLATE 4 MG TAB PO SCH (20:37)
[2017-02-05] VITALS (10 sets, daily range): BP systolic 105–125; BP diastolic 55–67; PULSE 91–110; RESP 16–20; TEMP 95.6–98.7; O2SAT 95–98
[2017-02-05] MEDS: cloNIDine HCL 0.1 MG TAB PO SCH ×3 (06:07→21:25)
--- NOTE | 2017-02-05 08:32 | HHI.PR ---
Subjective Remarks This is a pleasant 71 y/o Male on Radiotherapy 17 of 25 treatments, PEG tube okay to continue using as per GI specialist for Squamous Cell Carcinoma of the left Lung. Palliative Care following, had VDRF, Acute renal failure on Renal replacement therapy, Large bladder mass concerning for cancer, Code Status DNR, but continue aggressive management. 02/03: as per Wire Inspector notes he has a Complex case for Discharge plan, no facility has accepted him due to the responsibility for Radiation and Chemotherapy treatments, custodial goal is to return to [place] with family after he completes his Radiation Therapy and Medically stable. seen in his room in the presence of nurse Miss Wick, No nausea, vomit or diarrhea. 02/04: Stable in his bedroom, no new issues, at this time with two CNAs cleaning him, followed by auto transmission specialist due to Respiratory insufficiency, Opacification of Left Hemithorax unchanged, Squamous Cell Ca involving left main stem status post Endobronchial stent placement, status post Radiation therapy, status post Hemoptysis, recommended to continue Oxygen, Bronchodilators, continue PT. 02/05: Seen in his bedroom in the presence of nurse Hedy Patrick no new issues, No nausea, vomit or diarrhea. Objective Vital Signs Date Time Temp Pulse Resp B/P Pulse Ox O2 Delivery O2 Flow Rate FiO2 02/05/17 04:00 98.3 108 17 113/61 96 02/05/17 00:00 97.0 102 16 125/67 98 02/04/17 20:45 Nasal Cannula 2.00 21 02/04/17 20:37 105 02/04/17 20:35 18 02/04/17 20:00 97.5 108 16 116/64 94 02/04/17 16:55 98.3 98 20 122/74 98 02/04/17 12:00 98.6 101 20 118/66 96 02/04/17 10:15 Nasal Cannula 2.00 21 02/04/17 09:27 94 Nasal Cannula 2.00 I/O 02/04/17 02/04/17 02/04/17 02/05/17 02/05/17 02/05/17 07:00 15:00 23:00 07:00 15:00 23:00 Intake Total 240 ml 1220 ml 480 ml 1091 ml Output Total 700 ml 350 ml 500 ml Balance -460 ml 870 ml 480 ml 591 ml Intake Oral 240 ml 720 ml 480 ml Tube Feeding 500 ml 851 ml Other 240 ml Output Urine Total 700 ml 350 ml 500 ml Bladder Scan Volume Amount 432 ml # Bowel Movements 2 Result Diagram: 02/04/17 1332 02/02/17 1004 Imaging Last Impressions Chest X-Ray 01/31/17 0600 Signed Impressions: Service Date/Time: Tuesday, January 31, 2017 06:38 - CONCLUSION: Improved aeration of the left lower lung. Tono Vazquez MD Abdomen X-Ray 01/30/17 0000 Signed Impressions: Service Date/Time: January 10:55 - CONCLUSION: 1. No evidence for leakage or obstruction after injection of gastrostomy tube. Ken Crandall MD Central Venous Line 01/14/17 1150 Signed Impressions: Service Date/Time: Saturday, January 14, 2017 11:50 - CONCLUSION: Uncomplicated Permcath removal. Beto Perry MD Lower Extremity Ultrasound 01/06/17 0000 Signed Impressions: Service Date/Time: Friday, January 06, 2017 09:02 - CONCLUSION: Normal examination. Shawn Reyes MD Upper Extremity Ultrasound 12/11/16 1506 Signed Impressions: Service Date/Time: Sunday, December 11, 2016 18:00 - CONCLUSION: Superficial thrombophlebitis, extensive edema and nonspecific fluid collections in the subcutaneous tissues. Shawn Reyes MD Head CT 12/11/16 0000 Signed Impressions: Service Date/Time: Sunday, December 11, 2016 20:00 - CONCLUSION: Slight atrophic and small vessel ischemic changes without any evidence for acute hemorrhage or mass effect. Shawn Reyes MD Renal Ultrasound 12/09/16 0000 Signed Impressions: Service Date/Time: Friday, December 09, 2016 15:16 - CONCLUSION: 1. 8.4 cm mass lesion at the base of the bladder. This may represent an intrinsic mass of the bladder versus a prominent anterior lobe of the prostate. 2. Otherwise, urinary bladder is partially decompressed with a Lipscomb catheter. 3. Both kidneys are sonographically normal. Roby Horta MD Procedures 12/11- EGD- esophagitis, gastritis, duodenitis, PEG placement Other Results Laboratory Tests Test 02/02/17 02/02/17 02/04/17 10:04 16:31 13:32 White Blood Count 9.7 TH/MM3 Red Blood Count 2.61 MIL/MM3 Mean Corpuscular Volume 85.1 FL Mean Corpuscular Hemoglobin 27.3 PG Mean Corpuscular Hemoglobin 32.0 % Concent Red Cell Distribution Width 15.8 % Platelet Count 411 TH/MM3 Mean Platelet Volume 6.5 FL Neutrophils (%) (Auto) 70.2 % Lymphocytes (%) (Auto) 9.4 % Monocytes (%) (Auto) 9.6 % Eosinophils (%) (Auto) 9.8 % Basophils (%) (Auto) 1.0 % Neutrophils # (Auto) 6.8 TH/MM3 Lymphocytes # (Auto) 0.9 TH/MM3 Monocytes # (Auto) 0.9 TH/MM3 Eosinophils # (Auto) 0.9 TH/MM3 Basophils # (Auto) 0.1 TH/MM3 CBC Comment AUTO DIFF Differential Comment AUTO DIFF CONFIRMED Sodium Level 135 MEQ/L Potassium Level 4.8 MEQ/L Chloride Level 103 MEQ/L Carbon Dioxide Level 22.5 MEQ/L Anion Gap 10 MEQ/L Blood Urea Nitrogen 58 MG/DL Creatinine 1.48 MG/DL Estimat Glomerular Filtration 47 ML/MIN Rate Random Glucose 139 MG/DL Calcium Level 8.4 MG/DL Phosphorus Level 3.0 MG/DL Magnesium Level 1.9 MG/DL Blood Type B POSITIVE Antibody Screen NEGATIVE Prewarmed Antibody Screen NEGATIVE Crossmatch Leukocyte-Reduced Red Blood Cells Blood Bank Comment Hemoglobin 9.1 GM/DL Hematocrit 27.6 % Objective Remarks GENERAL: in no apparent distress. CARDIOVASCULAR: Regular rate and regular rhythm without murmurs, gallops, or rubs. RESPIRATORY: Clear to auscultation. Breath sounds equal bilaterally. No wheezes , rales, or rhonchi. GASTROINTESTINAL: Abdomen soft, non-tender, nondistended. Normal, active bowel sounds- PEG in place MUSCULOSKELETAL: Extremities without clubbing, cyanosis, or edema. NEURO: Alert & Oriented x4 to person, place, time, situation. Moves all ext x4 Lipscomb Cath in place. Medications and IVs Current Medications Medications (Trade) Dose Ordered Sig/Luis Carlos Route Start Time Stop Time Status Last Admin (NS Flush) 2 ml UNSCH PRN FLUSH 12/05/16 17:00 (NS Flush) 2 ml BID FLUSH 12/05/16 21:00 02/04/17 20:38 (Zofran Inj) 4 mg Q6H PRN IVP 12/05/16 18:00 02/04/17 20:28 (Dulcolax Supp) 10 mg DAILY PRN MA 12/05/16 18:00 (Narcan Inj) 0.4 mg UNSCH PRN IV 12/05/16 17:00 (Ferrous Sulfate Liq) 300 mg DAILY PO 12/06/16 09:00 02/04/17 11:19 (Lipitor) 40 mg HS PO 12/05/16 21:00 02/04/17 20:37 (Lasix Liq) 40 mg DAILY TUBE 12/06/16 09:00 Hold 12/20/16 08:50 (Jacinda-Colace) 2 tab BID PRN PO 12/05/16 19:45 01/29/17 23:19 (Lactulose Liq) 30 ml TID PRN PO 12/05/16 19:45 01/19/17 09:58 Magnesium Hydroxide 30 ml 30 ml Q6H PRN PO 12/05/16 19:45 01/29/17 09:00 (NS 1000 ml Inj) 1,000 ml @ 0 mls/hr Q0M PRN IV 12/06/16 12:11 12/12/16 09:33 Heparin Sodium (Porcine) 8000 units 8,000 units UNSCH PRN IVF 12/06/16 12:15 Sodium Chloride 1,000 ml @ 200 mls/hr Q5H PRN IV 12/06/16 12:11 (NS 1000 ml Inj) 1,000 ml @ 0 mls/hr Q0M PRN IV 12/06/16 12:11 (Mannitol Inj) 12.5 gm UNSCH PRN IV 12/06/16 12:15 (Albumin 25% Inj) 25 gm UNSCH PRN IV 12/06/16 12:15 (NS Flush) 5 ml UNSCH PRN IVF 12/06/16 12:15 (Heparin Inj) UNSCH PRN .XX 12/06/16 12:15 12/14/16 16:39 (Gentamicin (Dialysis) Inj) 20 mg UNSCH PRN IV 12/06/16 12:15 12/14/16 16:39 (Zofran Inj) 4 mg UNSCH PRN IV 12/06/16 12:15 (Tylenol) 650 mg UNSCH PRN PO 12/06/16 12:15 12/14/16 07:54 (Benadryl) 25 mg UNSCH PRN PO 12/06/16 12:15 (Nitrostat Sl) 0.4 mg UNSCH PRN SL 12/06/16 12:15 (Catapres) 0.1 mg UNSCH PRN PO 12/06/16 12:15 12/19/16 06:27 (Epogen Inj) 10,000 units UNSCH PRN IV 12/06/16 12:15 12/14/16 16:39 (Gelfoam 12 Mm/7 Mm Top) 1 foam UNSCH PRN TOP 12/06/16 12:15 (Megace Liq) 400 mg DAILY PO 12/08/16 09:00 02/04/17 11:19 (Heparin Inj) 5,000 units Q12HR SQ 12/08/16 21:00 Hold 01/13/17 09:37 (Dilantin Liq) 300 mg Q12HR PO 12/08/16 21:00 02/04/17 20:38 Fluticasone Propionate 2 spray 2 spray DAILY EACH NARE 12/18/16 12:00 01/31/17 07:57 (1/2 NS 1000 ml Inj) 1,000 ml @ 65 mls/hr [id number] IV 12/20/16 10:00 Hold 12/24/16 21:10 (Protonix) 40 mg DAILY PO 12/25/16 10:30 02/04/17 11:19 Miscellaneous Information Patient in critical care unit? Ass... Q361D .XX 12/25/16 22:30 12/25/16 22:30 (Procardia Xl) 90 mg DAILY PO 12/27/16 09:00 02/04/17 11:19 (Pill Splitter) 1 ea UNSCH PRN OTHER 12/26/16 19:00 12/27/16 10:33 (Catapres) 0.1 mg Q8HR PO 01/03/17 22:00 02/05/17 06:07 (Morphine Inj) 2 mg Q3H PRN IV PUSH 01/13/17 05:15 02/04/17 20:29 (Ativan Inj) 1 mg Q4H PRN IV PUSH 01/13/17 05:15 02/04/17 20:30 (Lasix Inj) 20 mg Q6HR PRN IV PUSH 01/13/17 05:15 (Milk Of Magnesia Liq) 30 ml BID PRN PO 01/19/17 10:45 01/28/17 11:44 (Tums Chew) 500 mg Q6H PRN CHEW 01/27/17 15:00 02/04/17 20:09 ([place] 5-325 Mg) 1 tab Q4H PRN PO 01/29/17 08:15 ([place] 5-325 Mg) 2 tab Q4H PRN PO 01/29/17 08:15 02/02/17 01:37 (Cardura) 8 mg HS PO 01/29/17 21:00 02/04/17 20:37 (Mucinex Er) 600 mg BID PO 02/01/17 21:00 02/04/17 20:37 A/P Assessment and Plan Squamous cell lung cancer: Currently undergoing radiation therapy. Supplemental oxygen as needed. Nebs as needed. Oncology and followed by auto transmission specialist due to Respiratory insufficiency, Opacification of Left Hemithorax unchanged, Squamous Cell Ca involving left main stem status post Endobronchial stent placement, status post Radiation therapy, status post Hemoptysis, recommended to continue Oxygen, Bronchodilators, continue PT. no new complaints no nausea, vomit or diarrhea. Radiation Therapy anemia with positive hem-occult: Likely secondary to the above. Hemoglobin decreased to 7.1. No signs of bleeding. for blood transfusion s/p EGD with gastritis and esophagitis- continue PPI Acute renal failure: Creatinine previously 0.77 on 11/02/16, slowly improving. was on Renal replacement therapy. follow H and H and transfuse as needed. Generalized weakness: Secondary to the above. Continue PT. Nisa UTI: S/P treatment with fluconazole. 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 Continue doxazosin. Lipscomb cath was changed yesterday night and had some Hematuria probable traumatic. Dysphagia and malnutrition: Continue mechanical soft diet per speech therapy. Tolerating tube feedings. Continue Megace for appetite stimulation. questionable PEG dislodgement reported on 01/30- however PEG looked ok on XR- ok to use per GI- Intermittent Diarrhea and Constipation: Held scheduled stool softeners for now. Check stool studies if further episodes. Diarrhea improved. Hypertension: controlled Orthostatic dizziness: Patient complains of dizziness when sitting. + orthostatic BP. Adjust BP meds as indicated. Continue PT. No changes to anterior assessment. DVT prophylaxis: SCD's Discharge Planning Continue management until can be discharge as per Wire Inspector. Joselo Cardenas MD February 05, 2017 08:32
[2017-02-05] MEDS: FLUTICASONE PROPIONATE 50 MCG/ACT 16 GM NASAL SPRAY EACH NARE SCH (09:00)
[2017-02-05] MEDS: SODIUM CHLORIDE 0.9% FLUSH 5 ML FLUSH FLUSH SCH ×2 (09:00→21:19)
[2017-02-05] MEDS: NIFEdipine 90 MG SUSTAINED RELEASE TAB PO SCH (10:14)
[2017-02-05] MEDS: PANTOPRAZOLE SOD 40 MG DELAYED RELEASE TAB PO SCH (10:14)
[2017-02-05] MEDS: guaiFENesin E.R. 600 MG TAB PO SCH ×2 (10:14→21:25)
[2017-02-05] MEDS: FERROUS SULFATE 300 MG /5ML UDC PO SCH (10:14)
[2017-02-05] MEDS: MEGESTROL ACETATE SUSP 400 MG/10 ML CUP PO SCH (10:15)
[2017-02-05] MEDS: PHENYTOIN SUSP 100 MG/4 ML CUP PO SCH ×2 (12:43→21:24)
--- NOTE | 2017-02-05 17:25 | HHI.PR ---
Subjective Remarks On 3LNC No fever Had radiation today CXR improved aeration of LLL Breathing better Objective Vital Signs Vital Signs Date Time Temp Pulse Resp B/P Pulse Ox O2 Delivery O2 Flow Rate FiO2 02/05/17 12:00 97.0 107 120/55 97 02/05/17 10:54 110 02/05/17 10:25 98 Nasal Cannula 2.00 02/05/17 10:23 96 Nasal Cannula 2.00 02/05/17 09:00 95.6 99 20 114/60 95 02/05/17 04:00 98.3 108 17 113/61 96 02/05/17 00:00 97.0 102 16 125/67 98 02/04/17 20:45 Nasal Cannula 2.00 21 02/04/17 20:37 105 02/04/17 20:35 18 02/04/17 20:00 97.5 108 16 116/64 94 I/O 02/04/17 02/04/17 02/04/17 02/05/17 02/05/17 02/05/17 07:00 15:00 23:00 07:00 15:00 23:00 Intake Total 240 ml 1220 ml 480 ml 1091 ml Output Total 700 ml 350 ml 500 ml Balance -460 ml 870 ml 480 ml 591 ml Intake Oral 240 ml 720 ml 480 ml Tube Feeding 500 ml 851 ml Other 240 ml Output Urine Total 700 ml 350 ml 500 ml Bladder Scan Volume Amount 432 ml # Bowel Movements 2 Result Diagram: 02/04/17 1332 02/02/17 1004 Objective Remarks GENERAL: Patient is lying in bed in NAD SKIN: Warm and dry. HEAD: Normocephalic. EYES: No scleral icterus. No injection or drainage. NECK: Supple, trachea midline. No JVD or lymphadenopathy. CARDIOVASCULAR: Regular rate and rhythm without murmurs, gallops, or rubs. RESPIRATORY: Breath sounds equal bilaterally. No accessory muscle use. GASTROINTESTINAL: Abdomen soft, non-tender, nondistended. MUSCULOSKELETAL: No cyanosis, or edema. BACK: Nontender without obvious deformity. No CVA tenderness. Neuro: Awake and alert A/P Assessment and Plan 1)Resp [place] 2)Opacification of left hemithorax -Improved 3)Squamous cell ca involving left main stem s/p endobronchial stent placement s/p XTR 4)s/p Hemoptysis 5)ARF 5)Anemia 6)Leukocytosis 7)HTN 8)UTI Plan Continue with oxygen keep sat >92% Bronchodilators (DuoNeb) S/p stent placement in the left main bronchus at [facility]. Monitor renal function, , Supplement 02 to keep sat >90% Aerosol nebs Works with PT Monitor H/H Valeriy Wilkins MD February 05, 2017 17:24
[2017-02-05] MEDS: DOXAZOSIN MESYLATE 4 MG TAB PO SCH (21:24)
[2017-02-05] MEDS: ATORVASTATIN 40 MG TAB PO SCH (21:25)
[2017-02-06] VITALS: BP 116/77; PULSE 113; RESP 17; TEMP 98.6; O2SAT 98
[2017-02-06] MEDS: cloNIDine HCL 0.1 MG TAB PO SCH ×3 (06:16→22:12)
[2017-02-06 08:00] VITALS: BP 114/74; PULSE 98; RESP 18; TEMP 96.5; O2SAT 95
[2017-02-06] MEDS: NIFEdipine 90 MG SUSTAINED RELEASE TAB PO SCH (08:22)
[2017-02-06] MEDS: guaiFENesin E.R. 600 MG TAB PO SCH ×2 (08:22→22:12)
[2017-02-06] MEDS: PANTOPRAZOLE SOD 40 MG DELAYED RELEASE TAB PO SCH (08:22)
[2017-02-06] MEDS: FERROUS SULFATE 300 MG /5ML UDC PO SCH (08:22)
[2017-02-06] MEDS: PHENYTOIN SUSP 100 MG/4 ML CUP PO SCH ×2 (08:23→22:12)
[2017-02-06] MEDS: MEGESTROL ACETATE SUSP 400 MG/10 ML CUP PO SCH (08:23)
[2017-02-06] MEDS: FLUTICASONE PROPIONATE 50 MCG/ACT 16 GM NASAL SPRAY EACH NARE SCH (08:24)
[2017-02-06] MEDS: SODIUM CHLORIDE 0.9% FLUSH 5 ML FLUSH FLUSH SCH ×2 (08:24→21:00)
[2017-02-06 12:00] VITALS: BP 109/70; PULSE 93; RESP 18; TEMP 97.7; O2SAT 96
--- NOTE | 2017-02-06 12:22 | MB ---
cc: JAYESH ARENAS MD DATE OF SERVICE 02/05/2017 REASON FOR CONSULTATION 1. Gross hematuria 2. BPH. HISTORY OF PRESENT ILLNESS The patient is a 71-year-old male with squamous cell carcinoma of the left main bronchus currently undergoing radiation therapy. He had an episode of gross hematuria last night after the Lipscomb catheter being changed. The patient previously had an episode back in September and initially he was diagnosed with squamous cell carcinoma of the lung requiring a stent to be placed at the [facility]. He had a renal ultrasound done back at the end of November/early December which showed a possible bladder mass versus prostate enlargement in his bladder. Dr. Connor, who had previously seen him, did a flexible cystoscopy at the bedside and he was found to have this enlarged median lobe but no evidence any bladder mass. The patient does have a longstanding history of BPH with urinary symptoms including nocturia five to six times and a weak stream. However, he currently has indwelling Lipscomb catheter. He denies fevers, chills, nausea, vomiting, flank pain, abdominal pain or any chest pain or shortness of breath at this time. Currently his urine is yellow and clearing. He is tolerating his catheter quite well. PAST MEDICAL HISTORY 1. Significant for squamous cell carcinoma of the lung. 2. BPH with obstruction. 3. Hematuria. 4. Acute renal failure. 5. Seizure disorder. 6. PEA arrest. 7. DVT. SURGICAL HISTORY 1. Successful stenting of left mainstem bronchus. 2. Tonsillectomy. 3. Hemodialysis with catheter placement. ALLERGIES No known drug allergies. FAMILY HISTORY Lung cancer. Denies urolithiasis or genitourinary malignancies. SOCIAL HISTORY Has history of tobacco use. Denies drinking or illicit drugs. REVIEW OF SYSTEMS See HPI. All systems were reviewed and otherwise negative. PHYSICAL EXAMINATION VITAL SIGNS: Temperature 97.8, pulse 100, respiratory rate 16, BP 116/67, sat 96% on room air. GENERAL: Alert and oriented x 3, in no acute distress. Pleasant, cooperative gentleman who appears older than his stated age. HEAD: Normocephalic, atraumatic. NECK: Supple. Trachea is midline. No JVD. EYES: No scleral icterus. Extraoral muscles intact. LUNGS: Clear to auscultation bilaterally. No wheezes, rales or rhonchi. HEART: Regular rhythm. No murmurs, gallops or rubs. ABDOMEN: Soft, nontender, nondistended. Positive bowel sounds. GENITOURINARY EXAM: Penis is circumcised. Testes descended bilaterally, normal size and consistency, without mass. The catheter is currently draining clear yellow urine. RECTAL EXAM: Not indicated at this time. EXTREMITIES: Nontender. No clubbing, cyanosis or edema. PSYCH: Normal affect. SKIN: No ulcers or rashes. NEURO: Cranial nerves II-XII intact. Strength 5/5 in all four extremities. LABORATORY DATA Labs show a hemoglobin of 9.1, hematocrit 27.6, sodium 135, potassium 4.8, chloride 103, bicarb 22.5, BUN 58, creatinine 1.48, glucose 139, calcium 8.4. IMAGING STUDIES Renal ultrasound on December 09 - Images were reviewed and radiologist report. The patient has possible bladder mass versus median lobe from excision of his prostate. Urine culture from 01/05/2017 grew Nisa glabrata. ASSESSMENT AND PLAN The patient is a 71-year-old male with history of BPH with lower urinary tract symptoms, currently undergoing radiation for squamous cell carcinoma along with gross hematuria which is currently now resolved. This is likely related to a traumatic catheterization. He had a recent cystoscopy which showed just prostatic enlargement, no evidence of bladder mass. Recommend continue Lipscomb catheter per the primary team and can be removed at their discretion. No further hematuria workup is required at this time. Thank you for this consultation. Please call if any questions. Jayesh Arenas MD EMF/JENIFFER /11:42 AM /11:53 AM
--- NOTE | 2017-02-06 13:11 | HHI.PR ---
Subjective Remarks This is a pleasant 71 y/o Male on Radiotherapy 17 of 25 treatments, PEG tube okay to continue using as per GI specialist for Squamous Cell Carcinoma of the left Lung. Palliative Care following, had VDRF, Acute renal failure on Renal replacement therapy, Large bladder mass concerning for cancer, Code Status DNR, but continue aggressive management. 02/03: as per Emergency Veterinary Technician notes he has a Complex case for Discharge plan, no facility has accepted him due to the responsibility for Radiation and Chemotherapy treatments, fdc goal is to return to [place] with family after he completes his Radiation Therapy and Medically stable. seen in his room in the presence of nurse Miss Wick, No nausea, vomit or diarrhea. 02/04: Stable in his bedroom, no new issues, at this time with two CNAs cleaning him, followed by release of information specialist due to Respiratory insufficiency, Opacification of Left Hemithorax unchanged, Squamous Cell Ca involving left main stem status post Endobronchial stent placement, status post Radiation therapy, status post Hemoptysis, recommended to continue Oxygen, Bronchodilators, continue PT. 02/05: Seen in his bedroom in the presence of nurse Hedy Maciasel no new issues 02/06: Patient with no complaints, discussed with older worker specialist's Nurse Miss Elmira Ely he will complete Radiation therapy in house and Palliative care following for probable home with Hospice at discharge. No nausea, vomit or diarrhea Objective Vital Signs Date Time Temp Pulse Resp B/P Pulse Ox O2 Delivery O2 Flow Rate FiO2 02/06/17 12:00 97.7 93 18 109/70 96 02/06/17 11:55 Nasal Cannula 2.00 02/06/17 08:00 96.5 98 18 114/74 95 02/06/17 08:00 3.00 02/06/17 00:00 98.6 113 17 116/77 98 02/05/17 21:20 Nasal Cannula 2.00 21 02/05/17 20:22 101 02/05/17 20:00 97.8 100 16 116/67 96 02/05/17 17:43 97 Nasal Cannula 2.00 02/05/17 16:00 98.7 91 20 105/65 98 I/O 02/05/17 02/05/17 02/05/17 02/06/17 02/06/17 02/06/17 07:00 15:00 23:00 07:00 15:00 23:00 Intake Total 1091 ml 480 ml 946 ml 360 ml Output Total 500 ml 500 ml 250 ml 450 ml Balance 591 ml -20 ml -250 ml 946 ml -90 ml Intake Oral 480 ml 360 ml Tube Feeding 851 ml 826 ml Other 240 ml 120 ml Output Urine Total 500 ml 500 ml 250 ml 450 ml Bladder Scan Volume Amount 432 ml Result Diagram: 02/04/17 1332 02/02/17 1004 Imaging Last Impressions Chest X-Ray 01/31/17 0600 Signed Impressions: Service Date/Time: Tuesday, January 31, 2017 06:38 - CONCLUSION: Improved aeration of the left lower lung. Tono Vazquez MD Abdomen X-Ray 01/30/17 0000 Signed Impressions: Service Date/Time: January 10:55 - CONCLUSION: 1. No evidence for leakage or obstruction after injection of gastrostomy tube. Ken Crandall MD Central Venous Line 01/14/17 1150 Signed Impressions: Service Date/Time: Saturday, January 14, 2017 11:50 - CONCLUSION: Uncomplicated Permcath removal. Beto Perry MD Lower Extremity Ultrasound 01/06/17 0000 Signed Impressions: Service Date/Time: Friday, January 06, 2017 09:02 - CONCLUSION: Normal examination. Shawn Reyes MD Upper Extremity Ultrasound 12/11/16 1506 Signed Impressions: Service Date/Time: Sunday, December 11, 2016 18:00 - CONCLUSION: Superficial thrombophlebitis, extensive edema and nonspecific fluid collections in the subcutaneous tissues. Shawn Reyes MD Head CT 12/11/16 0000 Signed Impressions: Service Date/Time: Sunday, December 11, 2016 20:00 - CONCLUSION: Slight atrophic and small vessel ischemic changes without any evidence for acute hemorrhage or mass effect. Shawn Reyes MD Renal Ultrasound 12/09/16 0000 Signed Impressions: Service Date/Time: Friday, December 09, 2016 15:16 - CONCLUSION: 1. 8.4 cm mass lesion at the base of the bladder. This may represent an intrinsic mass of the bladder versus a prominent anterior lobe of the prostate. 2. Otherwise, urinary bladder is partially decompressed with a Lipscomb catheter. 3. Both kidneys are sonographically normal. Roby Horta MD Procedures 12/11- EGD- esophagitis, gastritis, duodenitis, PEG placement Other Results Laboratory Tests Test 02/02/17 02/02/17 02/04/17 10:04 16:31 13:32 White Blood Count 9.7 TH/MM3 Red Blood Count 2.61 MIL/MM3 Mean Corpuscular Volume 85.1 FL Mean Corpuscular Hemoglobin 27.3 PG Mean Corpuscular Hemoglobin 32.0 % Concent Red Cell Distribution Width 15.8 % Platelet Count 411 TH/MM3 Mean Platelet Volume 6.5 FL Neutrophils (%) (Auto) 70.2 % Lymphocytes (%) (Auto) 9.4 % Monocytes (%) (Auto) 9.6 % Eosinophils (%) (Auto) 9.8 % Basophils (%) (Auto) 1.0 % Neutrophils # (Auto) 6.8 TH/MM3 Lymphocytes # (Auto) 0.9 TH/MM3 Monocytes # (Auto) 0.9 TH/MM3 Eosinophils # (Auto) 0.9 TH/MM3 Basophils # (Auto) 0.1 TH/MM3 CBC Comment AUTO DIFF Differential Comment AUTO DIFF CONFIRMED Sodium Level 135 MEQ/L Potassium Level 4.8 MEQ/L Chloride Level 103 MEQ/L Carbon Dioxide Level 22.5 MEQ/L Anion Gap 10 MEQ/L Blood Urea Nitrogen 58 MG/DL Creatinine 1.48 MG/DL Estimat Glomerular Filtration 47 ML/MIN Rate Random Glucose 139 MG/DL Calcium Level 8.4 MG/DL Phosphorus Level 3.0 MG/DL Magnesium Level 1.9 MG/DL Blood Type B POSITIVE Antibody Screen NEGATIVE Prewarmed Antibody Screen NEGATIVE Crossmatch Leukocyte-Reduced Red Blood Cells Blood Bank Comment Hemoglobin 9.1 GM/DL Hematocrit 27.6 % Objective Remarks GENERAL: in no apparent distress. CARDIOVASCULAR: Regular rate and regular rhythm without murmurs, gallops, or rubs. RESPIRATORY: Clear to auscultation. Breath sounds equal bilaterally. No wheezes , rales, or rhonchi. GASTROINTESTINAL: Abdomen soft, non-tender, nondistended. Normal, active bowel sounds- PEG in place MUSCULOSKELETAL: Extremities without clubbing, cyanosis, or edema. NEURO: Alert & Oriented x4 to person, place, time, situation. Moves all ext x4 Lipscomb Cath in place. Medications and IVs Current Medications Medications (Trade) Dose Ordered Sig/Luis Carlos Route Start Time Stop Time Status Last Admin (NS Flush) 2 ml UNSCH PRN FLUSH 12/05/16 17:00 (NS Flush) 2 ml BID FLUSH 12/05/16 21:00 02/06/17 08:24 (Zofran Inj) 4 mg Q6H PRN IVP 12/05/16 18:00 02/04/17 20:28 (Dulcolax Supp) 10 mg DAILY PRN [place] 12/05/16 18:00 (Narcan Inj) 0.4 mg UNSCH PRN IV 12/05/16 17:00 (Ferrous Sulfate Liq) 300 mg DAILY PO 12/06/16 09:00 02/06/17 08:22 (Lipitor) 40 mg HS PO 12/05/16 21:00 02/05/17 21:25 (Lasix Liq) 40 mg DAILY TUBE 12/06/16 09:00 Hold 12/20/16 08:50 (Jacinda-Colace) 2 tab BID PRN PO 12/05/16 19:45 01/29/17 23:19 (Lactulose Liq) 30 ml TID PRN PO 12/05/16 19:45 01/19/17 09:58 Magnesium Hydroxide 30 ml 30 ml Q6H PRN PO 12/05/16 19:45 01/29/17 09:00 (NS 1000 ml Inj) 1,000 ml @ 0 mls/hr Q0M PRN IV 12/06/16 12:11 12/12/16 09:33 Heparin Sodium (Porcine) 8000 units 8,000 units UNSCH PRN IVF 12/06/16 12:15 Sodium Chloride 1,000 ml @ 200 mls/hr Q5H PRN IV 12/06/16 12:11 (NS 1000 ml Inj) 1,000 ml @ 0 mls/hr Q0M PRN IV 12/06/16 12:11 (Mannitol Inj) 12.5 gm UNSCH PRN IV 12/06/16 12:15 (Albumin 25% Inj) 25 gm UNSCH PRN IV 12/06/16 12:15 (NS Flush) 5 ml UNSCH PRN IVF 12/06/16 12:15 (Heparin Inj) UNSCH PRN .XX 12/06/16 12:15 12/14/16 16:39 (Gentamicin (Dialysis) Inj) 20 mg UNSCH PRN IV 12/06/16 12:15 12/14/16 16:39 (Zofran Inj) 4 mg UNSCH PRN IV 12/06/16 12:15 (Tylenol) 650 mg UNSCH PRN PO 12/06/16 12:15 12/14/16 07:54 (Benadryl) 25 mg UNSCH PRN PO 12/06/16 12:15 (Nitrostat Sl) 0.4 mg UNSCH PRN SL 12/06/16 12:15 (Catapres) 0.1 mg UNSCH PRN PO 12/06/16 12:15 12/19/16 06:27 (Epogen Inj) 10,000 units UNSCH PRN IV 12/06/16 12:15 12/14/16 16:39 (Gelfoam 12 Mm/7 Mm Top) 1 foam UNSCH PRN TOP 12/06/16 12:15 (Megace Liq) 400 mg DAILY PO 12/08/16 09:00 02/06/17 08:23 (Heparin Inj) 5,000 units Q12HR SQ 12/08/16 21:00 Hold 01/13/17 09:37 (Dilantin Liq) 300 mg Q12HR PO 12/08/16 21:00 02/06/17 08:23 Fluticasone Propionate 2 spray 2 spray DAILY EACH NARE 12/18/16 12:00 01/31/17 07:57 (1/2 NS 1000 ml Inj) 1,000 ml @ 65 mls/hr [id number] IV 12/20/16 10:00 Hold 12/24/16 21:10 (Protonix) 40 mg DAILY PO 12/25/16 10:30 02/06/17 08:22 Miscellaneous Information Patient in critical care unit? Ass... Q361D .XX 12/25/16 22:30 12/25/16 22:30 (Procardia Xl) 90 mg DAILY PO 12/27/16 09:00 02/06/17 08:22 (Pill Splitter) 1 ea UNSCH PRN OTHER 12/26/16 19:00 12/27/16 10:33 (Catapres) 0.1 mg Q8HR PO 01/03/17 22:00 02/06/17 06:16 (Morphine Inj) 2 mg Q3H PRN IV PUSH 01/13/17 05:15 02/04/17 20:29 (Ativan Inj) 1 mg Q4H PRN IV PUSH 01/13/17 05:15 02/04/17 20:30 (Lasix Inj) 20 mg Q6HR PRN IV PUSH 01/13/17 05:15 (Milk Of Magnesia Liq) 30 ml BID PRN PO 01/19/17 10:45 01/28/17 11:44 (Tums Chew) 500 mg Q6H PRN CHEW 01/27/17 15:00 02/04/17 20:09 ([place] 5-325 Mg) 1 tab Q4H PRN PO 01/29/17 08:15 ([place] 5-325 Mg) 2 tab Q4H PRN PO 01/29/17 08:15 02/02/17 01:37 (Cardura) 8 mg HS PO 01/29/17 21:00 02/05/17 21:24 (Mucinex Er) 600 mg BID PO 02/01/17 21:00 02/06/17 08:22 A/P Assessment and Plan Squamous cell lung cancer: Currently undergoing radiation therapy. Supplemental oxygen as needed. Nebs as needed. Oncology and followed by release of information specialist due to Respiratory insufficiency, Opacification of Left Hemithorax unchanged, Squamous Cell Ca involving left main stem status post Endobronchial stent placement, status post Radiation therapy, status post Hemoptysis, recommended to continue Oxygen, Bronchodilators, continue PT. Radiation Therapy continue anemia with positive hem-occult: Likely secondary to the above. Hemoglobin now 9.1 status post blood transfusion this week. s/p EGD with gastritis and esophagitis- continue PPI Acute renal failure: Creatinine previously 0.77 on 11/02/16, slowly improving. was on Renal replacement therapy. follow H and H and transfuse as needed. Generalized weakness: Secondary to the above. Continue PT. Nisa UTI: S/P treatment with fluconazole. 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 Continue doxazosin. Lipscomb cath was changed. Dysphagia and malnutrition: Continue mechanical soft diet per speech therapy. Tolerating tube feedings. Continue Megace for appetite stimulation. questionable PEG dislodgement reported on 01/30- however PEG looked ok on XR- ok to use per GI- Intermittent Diarrhea and Constipation: Held scheduled stool softeners for now. Check stool studies if further episodes. Diarrhea improved. Hypertension: controlled Orthostatic dizziness: Patient complains of dizziness when sitting. + orthostatic BP. Adjust BP meds as indicated. Continue PT. No changes to anterior assessment. DVT prophylaxis: SCD's Discharge Planning Continue management until can be discharge as per Emergency Veterinary Technician. Joselo Cardenas MD February 06, 2017 13:11
[2017-02-06 16:00] VITALS: BP 112/78; PULSE 89; RESP 16; TEMP 97.5; O2SAT 96
[2017-02-06 17:50] VITALS: O2SAT 96
[2017-02-06] MEDS: TAMSULOSIN HCL 0.4 MG CAP PO SCH (18:45)
--- NOTE | 2017-02-06 19:48 | HHI.PR ---
Subjective Remarks On 3LNC No fever Had radiation today CXR improved aeration of LLL Breathing better has hematurea, Objective Vital Signs Vital Signs Date Time Temp Pulse Resp B/P Pulse Ox O2 Delivery O2 Flow Rate FiO2 02/06/17 17:50 96 Nasal Cannula 2.00 02/06/17 16:00 97.5 89 16 112/78 96 02/06/17 12:00 97.7 93 18 109/70 96 02/06/17 11:55 Nasal Cannula 2.00 02/06/17 08:00 96.5 98 18 114/74 95 02/06/17 08:00 3.00 02/06/17 00:00 98.6 113 17 116/77 98 02/05/17 21:20 Nasal Cannula 2.00 21 02/05/17 20:22 101 02/05/17 20:00 97.8 100 16 116/67 96 I/O 02/05/17 02/05/17 02/05/17 02/06/17 02/06/17 02/06/17 07:00 15:00 23:00 07:00 15:00 23:00 Intake Total 1091 ml 480 ml 946 ml 600 ml Output Total 500 ml 500 ml 250 ml 750 ml Balance 591 ml -20 ml -250 ml 946 ml -150 ml Intake Oral 480 ml 600 ml Tube Feeding 851 ml 826 ml Other 240 ml 120 ml Output Urine Total 500 ml 500 ml 250 ml 750 ml Bladder Scan Volume Amount 432 ml # Bowel Movements 0 Result Diagram: 02/04/17 1332 02/02/17 1004 Objective Remarks GENERAL: Patient is lying in bed in NAD SKIN: Warm and dry. HEAD: Normocephalic. EYES: No scleral icterus. No injection or drainage. NECK: Supple, trachea midline. No JVD or lymphadenopathy. CARDIOVASCULAR: Regular rate and rhythm without murmurs, gallops, or rubs. RESPIRATORY: Breath sounds equal bilaterally. No accessory muscle use. GASTROINTESTINAL: Abdomen soft, non-tender, nondistended. MUSCULOSKELETAL: No cyanosis, or edema. BACK: Nontender without obvious deformity. No CVA tenderness. Neuro: Awake and alert A/P Assessment and Plan 1)Resp [place] 2)Opacification of left hemithorax -Improved 3)Squamous cell ca involving left main stem s/p endobronchial stent placement s/p XTR 4)s/p Hemoptysis 5)ARF 5)Anemia 6)Leukocytosis 7)HTN 8)UTI Plan Continue with oxygen keep sat >92% Bronchodilators (DuoNeb) S/p stent placement in the left main bronchus at [facility]. Monitor renal function, , Supplement 02 to keep sat >90% Aerosol nebs Works with PT Monitor H/H Bladder irrigation Valeriy Wilkins MD February 06, 2017 19:48
[2017-02-06 20:00] VITALS: BP 123/64; PULSE 104; PULSE 113; RESP 17; TEMP 97.9; O2SAT 96
[2017-02-06] MEDS: DOXAZOSIN MESYLATE 4 MG TAB PO SCH (22:12)
[2017-02-06] MEDS: ATORVASTATIN 40 MG TAB PO SCH (22:12)
[2017-02-07] VITALS (10 sets, daily range): BP systolic 99–124; BP diastolic 66–78; PULSE 105–115; RESP 16–20; TEMP 96.4–99; O2SAT 96–99
[2017-02-07] MEDS: cloNIDine HCL 0.1 MG TAB PO SCH ×3 (06:27→21:45)
[2017-02-07 06:57] LABS: HEMATOCRIT 27.6 % (39.0-51.0)
[2017-02-07 07:37] LABS: BICARBONATE 24.6 MEQ/L (21.0-32.0); POTASSIUM 4.6 MEQ/L (3.5-5.1)
[2017-02-07] MEDS: NIFEdipine 90 MG SUSTAINED RELEASE TAB PO SCH (08:02)
[2017-02-07] MEDS: PHENYTOIN SUSP 100 MG/4 ML CUP PO SCH ×2 (08:02→21:45)
[2017-02-07] MEDS: SODIUM CHLORIDE 0.9% FLUSH 5 ML FLUSH FLUSH SCH ×2 (08:02→21:00)
[2017-02-07] MEDS: PANTOPRAZOLE SOD 40 MG DELAYED RELEASE TAB PO SCH (08:02)
[2017-02-07] MEDS: guaiFENesin E.R. 600 MG TAB PO SCH ×2 (08:02→21:45)
[2017-02-07] MEDS: FLUTICASONE PROPIONATE 50 MCG/ACT 16 GM NASAL SPRAY EACH NARE SCH (08:02)
[2017-02-07] MEDS: TAMSULOSIN HCL 0.4 MG CAP PO SCH (08:02)
[2017-02-07] MEDS: FERROUS SULFATE 300 MG /5ML UDC PO SCH (08:02)
[2017-02-07] MEDS: MEGESTROL ACETATE SUSP 400 MG/10 ML CUP PO SCH (08:02)
--- NOTE | 2017-02-07 12:11 | HHI.PR ---
Subjective Remarks This is a pleasant 71 y/o Male on Radiotherapy 17 of 25 treatments, PEG tube okay to continue using as per GI specialist for Squamous Cell Carcinoma of the left Lung. Palliative Care following, had VDRF, Acute renal failure on Renal replacement therapy, Large bladder mass concerning for cancer, Code Status DNR, but continue aggressive management. 02/03: as per Music Executive notes he has a Complex case for Discharge plan, no facility has accepted him due to the responsibility for Radiation and Chemotherapy treatments, senior care goal is to return to [place] with family after he completes his Radiation Therapy and Medically stable. seen in his room in the presence of nurse Shamika, No nausea, vomit or diarrhea. 02/04: Stable in his bedroom, no new issues, at this time with two CNAs cleaning him, followed by cash management specialist due to Respiratory insufficiency, Opacification of Left Hemithorax unchanged, Squamous Cell Ca involving left main stem status post Endobronchial stent placement, status post Radiation therapy, status post Hemoptysis, recommended to continue Oxygen, Bronchodilators, continue PT. 02/05: Seen in his bedroom in the presence of nurse Hedy Nguyen no new issues 02/06: Patient with no complaints, discussed with environmental communications specialist's Nurse Miss Elmira Ely he will complete Radiation therapy in house and Palliative care following for probable home with Hospice at discharge. 02/07: Seen in his bedroom in the presence of nurse Miss Alexander, Lipscomb cath removed yesterday and voiding well, I have been asked by Charge nurse to consult Palliative care notified they are on the case already, we are near to discharge perhaps on Hospice. Objective Vital Signs Date Time Temp Pulse Resp B/P Pulse Ox O2 Delivery O2 Flow Rate FiO2 02/07/17 08:55 96 Nasal Cannula 2.00 02/07/17 08:27 110 02/07/17 08:27 2.00 02/07/17 08:00 97.8 112 20 119/78 97 02/07/17 04:00 99.0 115 18 121/67 96 02/07/17 00:00 98.5 109 16 119/66 96 02/06/17 20:00 97.9 104 17 123/64 96 02/06/17 20:00 113 02/06/17 20:00 96 Nasal Cannula 2.00 02/06/17 17:50 96 Nasal Cannula 2.00 02/06/17 16:00 97.5 89 16 112/78 96 I/O 02/06/17 02/06/17 02/06/17 02/07/17 02/07/17 02/07/17 07:00 15:00 23:00 07:00 15:00 23:00 Intake Total 946 ml 600 ml Output Total 750 ml 200 ml Balance 946 ml -150 ml -200 ml Intake Oral 600 ml Tube Feeding 826 ml Other 120 ml Output Urine Total 750 ml 200 ml Bladder Scan Volume Amount 432 ml # Voids 1 1 # Bowel Movements 0 Result Diagram: 02/07/17 0637 02/07/17 0637 Imaging Last Impressions Chest X-Ray 01/31/17 0600 Signed Impressions: Service Date/Time: Tuesday, January 31, 2017 06:38 - CONCLUSION: Improved aeration of the left lower lung. Tono Vazquez MD Abdomen X-Ray 01/30/17 0000 Signed Impressions: Service Date/Time: January 10:55 - CONCLUSION: 1. No evidence for leakage or obstruction after injection of gastrostomy tube. Ken rCandall MD Central Venous Line 01/14/17 1150 Signed Impressions: Service Date/Time: Saturday, January 14, 2017 11:50 - CONCLUSION: Uncomplicated Permcath removal. Beto Perry MD Lower Extremity Ultrasound 01/06/17 0000 Signed Impressions: Service Date/Time: Friday, January 06, 2017 09:02 - CONCLUSION: Normal examination. Shawn Reyes MD Upper Extremity Ultrasound 12/11/16 1506 Signed Impressions: Service Date/Time: Sunday, December 11, 2016 18:00 - CONCLUSION: Superficial thrombophlebitis, extensive edema and nonspecific fluid collections in the subcutaneous tissues. Shawn Reyes MD Head CT 12/11/16 0000 Signed Impressions: Service Date/Time: Sunday, December 11, 2016 20:00 - CONCLUSION: Slight atrophic and small vessel ischemic changes without any evidence for acute hemorrhage or mass effect. Shawn Reyes MD Renal Ultrasound 12/09/16 0000 Signed Impressions: Service Date/Time: Friday, December 09, 2016 15:16 - CONCLUSION: 1. 8.4 cm mass lesion at the base of the bladder. This may represent an intrinsic mass of the bladder versus a prominent anterior lobe of the prostate. 2. Otherwise, urinary bladder is partially decompressed with a Lipscomb catheter. 3. Both kidneys are sonographically normal. Roby Horta MD Procedures 12/11- EGD- esophagitis, gastritis, duodenitis, PEG placement Other Results Laboratory Tests Test 02/02/17 02/07/17 16:31 06:37 Blood Type B POSITIVE Antibody Screen NEGATIVE Prewarmed Antibody Screen NEGATIVE Crossmatch Leukocyte-Reduced Red Blood Cells Blood Bank Comment Hemoglobin 9.3 GM/DL Hematocrit 27.6 % Sodium Level 135 MEQ/L Potassium Level 4.6 MEQ/L Chloride Level 103 MEQ/L Carbon Dioxide Level 24.6 MEQ/L Anion Gap 7 MEQ/L Blood Urea Nitrogen 68 MG/DL Creatinine 1.51 MG/DL Estimat Glomerular Filtration 46 ML/MIN Rate Random Glucose 106 MG/DL Calcium Level 8.7 MG/DL Objective Remarks GENERAL: in no apparent distress. CARDIOVASCULAR: Regular rate and regular rhythm without murmurs, gallops, or rubs. RESPIRATORY: Clear to auscultation. Breath sounds equal bilaterally. No wheezes , rales, or rhonchi. GASTROINTESTINAL: Abdomen soft, non-tender, nondistended. Normal, active bowel sounds- PEG in place MUSCULOSKELETAL: Extremities without clubbing, cyanosis, or edema. NEURO: Alert & Oriented x4 to person, place, time, situation. Moves all ext x4 Medications and IVs Current Medications Medications (Trade) Dose Ordered Sig/Luis Carlos Route Start Time Stop Time Status Last Admin (NS Flush) 2 ml UNSCH PRN FLUSH 12/05/16 17:00 (NS Flush) 2 ml BID FLUSH 12/05/16 21:00 02/07/17 08:02 (Zofran Inj) 4 mg Q6H PRN IVP 12/05/16 18:00 02/04/17 20:28 (Dulcolax Supp) 10 mg DAILY PRN [place] 12/05/16 18:00 (Narcan Inj) 0.4 mg UNSCH PRN IV 12/05/16 17:00 (Ferrous Sulfate Liq) 300 mg DAILY PO 12/06/16 09:00 02/07/17 08:02 (Lipitor) 40 mg HS PO 12/05/16 21:00 02/06/17 22:12 (Lasix Liq) 40 mg DAILY TUBE 12/06/16 09:00 Hold 12/20/16 08:50 (Jacinda-Colace) 2 tab BID PRN PO 12/05/16 19:45 01/29/17 23:19 Lactulose 30 ml 30 ml TID PRN PO 12/05/16 19:45 01/19/17 09:58 (NS 1000 ml Inj) 1,000 ml @ 0 mls/hr Q0M PRN IV 12/06/16 12:11 12/12/16 09:33 Heparin Sodium (Porcine) 8000 units 8,000 units UNSCH PRN IVF 12/06/16 12:15 Sodium Chloride 1,000 ml @ 200 mls/hr Q5H PRN IV 12/06/16 12:11 (NS 1000 ml Inj) 1,000 ml @ 0 mls/hr Q0M PRN IV 12/06/16 12:11 (Mannitol Inj) 12.5 gm UNSCH PRN IV 12/06/16 12:15 (Albumin 25% Inj) 25 gm UNSCH PRN IV 12/06/16 12:15 (NS Flush) 5 ml UNSCH PRN IVF 12/06/16 12:15 (Heparin Inj) UNSCH PRN .XX 12/06/16 12:15 12/14/16 16:39 (Gentamicin (Dialysis) Inj) 20 mg UNSCH PRN IV 12/06/16 12:15 12/14/16 16:39 (Zofran Inj) 4 mg UNSCH PRN IV 12/06/16 12:15 (Tylenol) 650 mg UNSCH PRN PO 12/06/16 12:15 12/14/16 07:54 (Benadryl) 25 mg UNSCH PRN PO 12/06/16 12:15 (Nitrostat Sl) 0.4 mg UNSCH PRN SL 12/06/16 12:15 (Catapres) 0.1 mg UNSCH PRN PO 12/06/16 12:15 12/19/16 06:27 (Epogen Inj) 10,000 units UNSCH PRN IV 12/06/16 12:15 12/14/16 16:39 (Gelfoam 12 Mm/7 Mm Top) 1 foam UNSCH PRN TOP 12/06/16 12:15 (Megace Liq) 400 mg DAILY PO 12/08/16 09:00 02/07/17 08:02 (Heparin Inj) 5,000 units Q12HR SQ 12/08/16 21:00 Hold 01/13/17 09:37 (Dilantin Liq) 300 mg Q12HR PO 12/08/16 21:00 02/07/17 08:02 Fluticasone Propionate 2 spray 2 spray DAILY EACH NARE 12/18/16 12:00 01/31/17 07:57 (1/2 NS 1000 ml Inj) 1,000 ml @ 65 mls/hr [id number] IV 12/20/16 10:00 Hold 12/24/16 21:10 (Protonix) 40 mg DAILY PO 12/25/16 10:30 02/07/17 08:02 Miscellaneous Information Patient in critical care unit? Ass... Q361D .XX 12/25/16 22:30 12/25/16 22:30 (Procardia Xl) 90 mg DAILY PO 12/27/16 09:00 02/07/17 08:02 (Pill Splitter) 1 ea UNSCH PRN OTHER 12/26/16 19:00 12/27/16 10:33 (Catapres) 0.1 mg Q8HR PO 01/03/17 22:00 02/07/17 06:27 (Morphine Inj) 2 mg Q3H PRN IV PUSH 01/13/17 05:15 02/04/17 20:29 (Ativan Inj) 1 mg Q4H PRN IV PUSH 01/13/17 05:15 02/04/17 20:30 (Lasix Inj) 20 mg Q6HR PRN IV PUSH 01/13/17 05:15 (Milk Of Magnesia Liq) 30 ml BID PRN PO 01/19/17 10:45 01/28/17 11:44 (Tums Chew) 500 mg Q6H PRN CHEW 01/27/17 15:00 02/04/17 20:09 ([place] 5-325 Mg) 1 tab Q4H PRN PO 01/29/17 08:15 ([place] 5-325 Mg) 2 tab Q4H PRN PO 01/29/17 08:15 02/02/17 01:37 (Cardura) 8 mg HS PO 01/29/17 21:00 02/06/17 22:12 (Mucinex Er) 600 mg BID PO 02/01/17 21:00 02/07/17 08:02 (Flomax) 0.4 mg DAILY PO 02/06/17 18:45 02/07/17 08:02 A/P Assessment and Plan Squamous cell lung cancer: Currently undergoing radiation therapy. Supplemental oxygen as needed. Nebs as needed. Oncology and followed by cash management specialist due to Respiratory insufficiency, Opacification of Left Hemithorax unchanged, Squamous Cell Ca involving left main stem status post Endobronchial stent placement, status post Radiation therapy, status post Hemoptysis, recommended to continue Oxygen, Bronchodilators, continue PT. Radiation Therapy continue anemia with positive hem-occult: Likely secondary to the above. Hemoglobin now 9.3 status post blood transfusion this week. s/p EGD with gastritis and esophagitis- continue PPI Acute renal failure: Creatinine previously 0.77 on 11/02/16, slowly improving. was on Renal replacement therapy. follow H and H and transfuse as needed. Generalized weakness: Secondary to the above. Continue PT. Nisa UTI: S/P treatment with fluconazole. 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 continue Doxazosin Seen by Urology specialist recommended to remove Lipscomb cath was done and voiding well. Dysphagia and malnutrition: Continue mechanical soft diet per speech therapy. Tolerating tube feedings. Continue Megace for appetite stimulation. questionable PEG dislodgement reported on 01/30- however PEG looked ok on XR- ok to use per GI- Intermittent Diarrhea and Constipation: Held scheduled stool softeners for now. Check stool studies if further episodes. Diarrhea improved. Hypertension: controlled Orthostatic dizziness: Patient complains of dizziness when sitting. + orthostatic BP. Adjust BP meds as indicated. Continue PT. No changes to anterior assessment. DVT prophylaxis: SCD's Discharge Planning Continue management until can be discharge as per Music Executive. Joselo Cardenas MD February 07, 2017 12:11
--- NOTE | 2017-02-07 12:42 | HHI.HCPN ---
Reason for visit a. To assist with evaluation and management of symptoms including: dyspnea, weakness, malnutrition b. To assist medical decision maker(s) with: better understanding of current medical conditions; weighing benefits/burdens of medical treatment options; making medical treatment decisions. Subjective/Interval History Pt seen to follow up on dyspnea , goals, update to family. Palliative continues to follow pt weekly or as needed as condition evolves. Patient has remained stable, continuing XRT, having completed 22 of 35 total treatments. CM/med attending exploring discharge options. Pt still very weak, debilitated. Working with PT; however still with dizziness upon getting up, primarily tolerating sitting at side of bed unable to stand/ambulate. H&H down earlier this week though no obvious signs of bleeding; was 7.1/ --> transfused 2 units of RBCs. H&H has remained stable 9.3/27.6. Continues tolerate nasal cannula. Appetite fair-eating 50-100% of meals in the daytime, tube feeding at night. 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 Getting ready to eat lunch. He is alert, oriented, pleasant and appropriate. ROS negative, feeling pretty good overall. Some reasonable insight regarding his hospital course able to detail initial presentation, [facility] transfer, arrest episodes, transfer back here to [place]. He does at times confuse details. He tells me the radiation oncologist has told him that the radiation has helped break up his cancer pretty good. Gently explore with him that there has been some reduction in disease burden though disease processes not cured. Further explore with him that chemotherapy is not an option as he is very debilitated and bedbound. Explore with him discharge options he indicates he is still hopeful to try to get up to [place] in the future but needs to try to get stronger first. I explore with him hospice option as was discussed during prior interactions, as a way to get him out of the hospital here with symptom management and then trying to get him transferred to an accepting hospice [place]. He still at times seems focused on trying to get stronger and then arranging for transportation up to [place] I did gently explore and reinforce that I'm not sure how much stronger he will be getting even with ongoing rehabilitation efforts. He is worried about arranging things at his own local home before he gets up to [place], and getting his other local affairs in order. He indicates he will be talking more to his son in [place] regarding future plans. . Family/friend interactions following exam call to [facility] Hidalgo; provided medical update, review of continued XRT tx, d/c planning. Review not canditate for chemotherapy. Options of rehab vs hospice-- rehabilitation probably of very limited benefit given the patient' s severely debilitated status patient remains high risk for complication and setbacks and readmission if he does attempt rehabilitation course. Alternatively consider discharge with hospice though he still wouldn't revealed a go home as he lived at home alone, may require SNF placement for residential status with hospice and their or potentially hospice care center to get transition to hospice up in [place] however hospice care centers are for short-term symptom management only not for residential solutions, patient would need to pursue [place] transition as soon as possible if that was the route. Patient's son, patient, family to talk more in the coming week regarding discharge plans. Patient has ultimately wanted to get strong enough to obtain chemotherapy though that is not currently an option. He also wants to get back to [place]; however keeps wanting to do that once he is "stronger ". Palliative will continue to follow to provide updates and assist with goals as needed. Advance Directives Living Will: Completed, but not made available Health Care Surrogate: Copy in medical record Advance Directive Specifics Date completed: 12/17/16 Health Care Surrogate(s): Names son Elpidio Jaime as HCS Objective Vital Signs Date Time Temp Pulse Resp B/P Pulse Ox O2 Delivery O2 Flow Rate FiO2 02/07/17 08:55 96 Nasal Cannula 2.00 02/07/17 08:27 110 02/07/17 08:27 2.00 02/07/17 08:00 97.8 112 20 119/78 97 02/07/17 04:00 99.0 115 18 121/67 96 02/07/17 00:00 98.5 109 16 119/66 96 02/06/17 20:00 97.9 104 17 123/64 96 02/06/17 20:00 113 02/06/17 20:00 96 Nasal Cannula 2.00 02/06/17 17:50 96 Nasal Cannula 2.00 02/06/17 16:00 97.5 89 16 112/78 96 Intake & Output 02/07/17 02/07/17 07:00 19:00 Output Total 200 ml Balance -200 ml Output Urine Total 200 ml # Voids 2 Physical Exam CONSTITUTIONAL/GENERAL: This is a chronically ill appearing pt, no distress, alert, pleasant TUBES/LINES/DRAINS:pIV LUE, nasal cannula, +PEG tube CARDIOVASCULAR: Regular rate and rhythm, no murmurs. Peripheral pulses symmetric. RESPIRATORY/CHEST: Symmetric, unlabored respirations. + 2L NC. Clear to right, improved air movement to left, + coarse scattered rhonchi. GASTROINTESTINAL: Abdomen soft, non-tender, nondistended. No palpable masses. No guarding. Bowel sounds present.PEG tube clamped ,dressing clean/dry NEUROLOGICAL: Alert, orientedx3 . Pleasant and cooperative. Reasonable insight into hospitalization and conditions. Follows commands. Moves all 4 extremities with significant weakness PSYCHIATRIC: No obvious anxiety/depression. . Diagnostic Tests Laboratory Laboratory Tests Test 02/04/17 02/07/17 13:32 06:37 Hemoglobin 9.1 GM/DL 9.3 GM/DL (13.0-17.0) (13.0-17.0) Hematocrit 27.6 % 27.6 % (39.0-51.0) (39.0-51.0) Sodium Level 135 MEQ/L (136-145) Potassium Level 4.6 MEQ/L (3.5-5.1) Chloride Level 103 MEQ/L (98-107) Carbon Dioxide Level 24.6 MEQ/L (21.0-32.0) Anion Gap 7 MEQ/L (5-15) Blood Urea Nitrogen 68 MG/DL (7-18) Creatinine 1.51 MG/DL (0.60-1.30) Estimat Glomerular Filtration 46 ML/MIN (>89) Rate Random Glucose 106 MG/DL (74-106) Calcium Level 8.7 MG/DL (8.5-10.1) Result Diagram: 02/07/17 0637 02/07/17 0637 Imaging Last Impressions Chest X-Ray 01/31/17 0600 Signed Impressions: Service Date/Time: Tuesday, January 31, 2017 06:38 - CONCLUSION: Improved aeration of the left lower lung. Tono Vazquez MD Abdomen X-Ray 01/30/17 0000 Signed Impressions: Service Date/Time: January 10:55 - CONCLUSION: 1. No evidence for leakage or obstruction after injection of gastrostomy tube. Ken Crandall MD Central Venous Line 01/14/17 1150 Signed Impressions: Service Date/Time: Saturday, January 14, 2017 11:50 - CONCLUSION: Uncomplicated Permcath removal. Beto Perry MD Lower Extremity Ultrasound 01/06/17 0000 Signed Impressions: Service Date/Time: Friday, January 06, 2017 09:02 - CONCLUSION: Normal examination. Shawn Reyes MD Upper Extremity Ultrasound 12/11/16 1506 Signed Impressions: Service Date/Time: Sunday, December 11, 2016 18:00 - CONCLUSION: Superficial thrombophlebitis, extensive edema and nonspecific fluid collections in the subcutaneous tissues. Shawn Reyes MD Head CT 12/11/16 0000 Signed Impressions: Service Date/Time: Sunday, December 11, 2016 20:00 - CONCLUSION: Slight atrophic and small vessel ischemic changes without any evidence for acute hemorrhage or mass effect. Shawn Reyes MD Renal Ultrasound 12/09/16 0000 Signed Impressions: Service Date/Time: Friday, December 09, 2016 15:16 - CONCLUSION: 1. 8.4 cm mass lesion at the base of the bladder. This may represent an intrinsic mass of the bladder versus a prominent anterior lobe of the prostate. 2. Otherwise, urinary bladder is partially decompressed with a Lipscomb catheter. 3. Both kidneys are sonographically normal. Roby Horta MD Assessment and Plan Disease Oriented Problem List: (1) Mass of left lung Comment: +SCC (2) Acute renal failure (3) Squamous cell lung cancer (4) Bladder mass (5) Anemia (6) UTI (urinary tract infection) Comment: awaiting BX/resection when stable (7) Severe muscle deconditioning (8) Acute respiratory failure Comment: resolved Symptom Scale: (1) Malnutrition (2) Dyspnea (3) Weakness Pertinent Non-Medical Issues Psychosocial:. 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 Lives at home alone. Supported by 4 sons, 2 in [place], 2 in [place] Spiritual: Legal:pt appears able to participate in decision making. Reports his son Elpidio is HCS, they will provide copies. Pt appears to have simple understanding of things and wishes to include his son in medical updates and decision making . Ethical issues impacting care: Important Contacts Son Marly Landeros- ([facility]) Elpidio Jaime [phone] (Gwen, DIL [phone]) Son Marly Landeros - Soham Jaime [phone] . Prognosis This patient has a new diagnosis of squamous cell carcinoma, s/p mass resection , intubation and arrest. He subsequently suffered acute renal failure and remains on hemodialysis. He has new findings of a large bladder mass, concerning for cancer, however cannot have additional diagnostic procedures until acute condition improves. It is possible his cancer could be treated, however his acute issues need to improve and his overall performance status needs to improve in order to obtain staging, and possible treatment. He has multiple issues and is severely deconditioned, it may take significant time for him to improve enough for treatment and during that time he remains high risk for further complications and setbacks. Code Status: Full Code Plan * Legal decision maker:pt appears able to participate in decision making. Reports his son Elpidio is HCS, they will provide copies. Pt appears to have simple understanding of things and wishes to include his son in medical updates and decision making . HCS completed 12/17/16 naming son Elpidio Jaime as [facility] * Goals: GOALS HAVE BEEN AGGRESSIVE, pt wants to try to get needed resources in line in order to to go back home to [place] with his son, and possible obtain chemotherapy to treat his cancer and have more time. Patient's son and healthcare surrogate Elpidio is supportive of the patient's wishes. They're working to try to get him up to [place] closer to them. I provided an update to son 12/19 -- 01/13/17- Pt off unit. need to re address [facility], hospice has been consulted during [facility] epoisode earlier this am. Could d/c w hospice, however would not be able to cont radiation on hospice. 1400 patient seen later in the afternoon after his return from radiation. Has now completed 4 of 25 treatments. He endorses feeling more tired and out of sorts in the past day or so. No specific complaints otherwise. He affirms DNR status. He is not certain if he wishes to proceed with hospice, or if he wishes to remain in the hospital and attempt to continue radiation treatments, other aggressive treatments short of resuscitation. He is going to talk more with his son Elpidio when he arrives later today to make further decisions. Palliative plans to follow-up again with him tomorrow 01/14 -- 01/14/17 met w pt, son, They have had ongoing conversations RE continuing radiation/semi aggressive tx short of resuscitation, vs transition to hospice and d/c out of the hospital to get up to [place] with family. Pt wishes to continue to try to complete radiation, he understands remains high risk for complications /resp issues. Plan is to enroll in hospice, after completing radiation. Wants to remain DNR. -- 01/22/17 [facility] w pt at [facility]. He is A&O. goals remain aggressive. Feeling well overall. Wants to work with PT. --01/31/17: goals remain aggressive. update to family. --02/07/17- palliative continues to follow patient weekly and as needed. Discuss goals, discharge planning with patient and family today. Limited options, chemotherapy is not an option for the patient at this point, unlikely to become an option due to severely debilitated status. Option to discharge locally with hospice and try to pursue transition to [place] with an accepting hospice up there versus pursue rehabilitation locally, which would be high risk for complications/setbacks/hospital readmission. Patient and family to continue discuss over the next week. * CODE STATUS: DNR * SYMPTOMS: --dyspnea- s/p acute resp failure- prolonged intubation, resolved. Has been on nasal cannula O2, PRN nebulizers-- denies and shortness of breath; earlier today with episode of desaturation, dyspnea. CXR appears unchanged, essentially white out of left lung. Episode of respiratory distress last month , required transfer to ICU and BiPAP, now out of ICU. currently maintaining on nasal cannula - has elected NOT to use B IPAP anymore. HALICAT last month due to hemoptysis, desaturation, pt elected NO intubation, DNR, comfort measures only, HOSPICE consulted at that time, though patient did not elect hospice. Goal to Continue to pursue aggressive treatment until completion of radiation. --malnutrition- +PEG, TF at night, + oral food in day time, on MEGACE, appetite fair/good -- eating 50%-100% of most recent meals. --weakness/deconditioning - in hospital since 10/22 -- severely deconditioned- -> PT working with, pt with limited strength to even sit on side of bed.Pt reports difficulty feeding self due to weakness.Continues to work with OT/PT though clinical condition limits his ability to participate in prolonged therapy -- PT continues to work with pt --Dysphagia- post ST eval,tolerating thin liquids, probably remains ongoing risk for aspiration * Palliative care will continue to follow during hospital course as condition evolves, to assist patient/decision-maker with understanding of medical conditions, weighing benefits/burdens of treatment options, for clarification of goals of treatment. Additionally will assist with any symptoms of palliative concern Time Spent Total Floor Time (mins): 35 >50% Counseling/Coord of Care: Yes (discuss with case management) Attestation To help prompt me to consider important information that might be impacting today's encounter and assessment, information from prior notes written by myself or my colleagues may have been "brought forward" into today's note. My signature on this note, however, is an attestation that I personally performed the exam, history, and/or decision-making noted today, and, unless otherwise indicated, the interactions with patient, family, and staff as well as the review of records all occurred today. I also attest that the listed assessment and stated plan reflect my best clinical judgment today based on the combination of historical information, prior notes, and today's exam/ interactions. When time spent is documented, it refers only to time spent today by the signer, or if indicated, combined time spent today by collaborating physician/nurse practitioner. Evangelina Watson February 07, 2017 12:42
--- NOTE | 2017-02-07 18:19 | HHI.PR ---
Subjective Remarks On 3LNC No fever Had radiation today CXR improved aeration of LLL Breathing better Objective Vital Signs Vital Signs Date Time Temp Pulse Resp B/P Pulse Ox O2 Delivery O2 Flow Rate FiO2 02/07/17 16:45 98.5 106 20 124/75 99 02/07/17 14:00 99/68 02/07/17 12:38 98.0 105 20 108/70 96 02/07/17 08:55 96 Nasal Cannula 2.00 02/07/17 08:27 110 02/07/17 08:27 2.00 02/07/17 08:00 97.8 112 20 119/78 97 02/07/17 04:00 99.0 115 18 121/67 96 02/07/17 00:00 98.5 109 16 119/66 96 02/06/17 20:00 97.9 104 17 123/64 96 02/06/17 20:00 113 02/06/17 20:00 96 Nasal Cannula 2.00 I/O 02/06/17 02/06/17 02/06/17 02/07/17 02/07/17 02/07/17 07:00 15:00 23:00 07:00 15:00 23:00 Intake Total 946 ml 600 ml 720 ml Output Total 750 ml 200 ml 300 ml 100 ml Balance 946 ml -150 ml -200 ml 420 ml -100 ml Intake Oral 600 ml 720 ml Tube Feeding 826 ml Other 120 ml Output Urine Total 750 ml 200 ml 300 ml 100 ml Bladder Scan Volume Amount 432 ml # Voids 1 1 1 # Bowel Movements 0 1 Result Diagram: 02/07/17 0637 02/07/17 0637 Objective Remarks GENERAL: Patient is lying in bed in NAD SKIN: Warm and dry. HEAD: Normocephalic. EYES: No scleral icterus. No injection or drainage. NECK: Supple, trachea midline. No JVD or lymphadenopathy. CARDIOVASCULAR: Regular rate and rhythm without murmurs, gallops, or rubs. RESPIRATORY: Breath sounds equal bilaterally. No accessory muscle use. GASTROINTESTINAL: Abdomen soft, non-tender, nondistended. MUSCULOSKELETAL: No cyanosis, or edema. BACK: Nontender without obvious deformity. No CVA tenderness. 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 Monitor renal function, , Supplement 02 to keep sat >90% Aerosol nebs Works with PT Monitor H/H Bladder irrigation Available prn over weekend. Valeriy Wilkins MD February 07, 2017 18:19
[2017-02-07] MEDS: DOXAZOSIN MESYLATE 4 MG TAB PO SCH (21:45)
[2017-02-07] MEDS: ATORVASTATIN 40 MG TAB PO SCH (21:45)
[2017-02-08] VITALS (9 sets, daily range): BP systolic 102–118; BP diastolic 59–68; PULSE 100–113; RESP 17–20; TEMP 97.4–98.7; O2SAT 95–99
[2017-02-08] MEDS ORDERED: METOPROLOL TARTRATE 25 MG TAB PO ONE
[2017-02-08] MEDS: cloNIDine HCL 0.1 MG TAB PO SCH ×3 (06:00→22:00)
[2017-02-08] MEDS: PANTOPRAZOLE SOD 40 MG DELAYED RELEASE TAB PO SCH (08:16)
[2017-02-08] MEDS: guaiFENesin E.R. 600 MG TAB PO SCH ×2 (08:16→20:33)
[2017-02-08] MEDS: TAMSULOSIN HCL 0.4 MG CAP PO SCH (08:16)
[2017-02-08] MEDS: FERROUS SULFATE 300 MG /5ML UDC PO SCH (08:16)
[2017-02-08] MEDS: NIFEdipine 90 MG SUSTAINED RELEASE TAB PO SCH (08:17)
[2017-02-08] MEDS: MEGESTROL ACETATE SUSP 400 MG/10 ML CUP PO SCH (08:17)
[2017-02-08] MEDS: PHENYTOIN SUSP 100 MG/4 ML CUP PO SCH ×2 (08:17→21:11)
[2017-02-08] MEDS: FLUTICASONE PROPIONATE 50 MCG/ACT 16 GM NASAL SPRAY EACH NARE SCH (08:17)
[2017-02-08] MEDS: SODIUM CHLORIDE 0.9% FLUSH 5 ML FLUSH FLUSH SCH ×2 (08:17→20:33)
--- NOTE | 2017-02-08 16:16 | HHI.PR ---
Subjective Remarks Follow-up for squamous cell lung cancer underwent radiation therapy, generalized weakness. Patient is currently doing well, resting in bed. Denies any acute concerns. No fever or chills. Objective Vitals Vital Signs Date Time Temp Pulse Resp B/P Pulse Ox O2 Delivery O2 Flow Rate FiO2 02/08/17 12:00 98.0 103 18 115/68 99 02/08/17 09:28 Nasal Cannula 2.00 21 02/08/17 08:00 97.8 112 20 105/59 95 02/08/17 04:00 98.7 104 19 104/61 97 02/08/17 00:00 98.5 110 18 115/66 98 02/07/17 20:41 96.4 112 19 117/67 97 02/07/17 20:00 108 02/07/17 20:00 97 Nasal Cannula 2.00 02/07/17 16:45 98.5 106 20 124/75 99 I/O 02/07/17 02/07/17 02/07/17 02/08/17 02/08/17 02/08/17 07:00 15:00 23:00 07:00 15:00 23:00 Intake Total 720 ml 240 ml 120 ml Output Total 200 ml 300 ml 200 ml 450 ml Balance -200 ml 420 ml 40 ml -330 ml Intake Oral 720 ml 240 ml 120 ml Output Urine Total 200 ml 300 ml 200 ml 450 ml # Voids 1 1 # Bowel Movements 1 1 Result Diagram: 02/07/17 0637 02/07/17 0637 Imaging Last Impressions Chest X-Ray 01/31/17 0600 Signed Impressions: Service Date/Time: Tuesday, January 31, 2017 06:38 - CONCLUSION: Improved aeration of the left lower lung. Tono Vazquez MD Abdomen X-Ray 01/30/17 0000 Signed Impressions: Service Date/Time: January 10:55 - CONCLUSION: 1. No evidence for leakage or obstruction after injection of gastrostomy tube. Ken Crandall MD Central Venous Line 01/14/17 1150 Signed Impressions: Service Date/Time: Saturday, January 14, 2017 11:50 - CONCLUSION: Uncomplicated Permcath removal. Beto Perry MD Lower Extremity Ultrasound 01/06/17 0000 Signed Impressions: Service Date/Time: Friday, January 06, 2017 09:02 - CONCLUSION: Normal examination. Shawn Reyes MD Upper Extremity Ultrasound 12/11/16 1506 Signed Impressions: Service Date/Time: Sunday, December 11, 2016 18:00 - CONCLUSION: Superficial thrombophlebitis, extensive edema and nonspecific fluid collections in the subcutaneous tissues. Shawn Reyes MD Head CT 12/11/16 0000 Signed Impressions: Service Date/Time: Sunday, December 11, 2016 20:00 - CONCLUSION: Slight atrophic and small vessel ischemic changes without any evidence for acute hemorrhage or mass effect. Shawn Reyes MD Renal Ultrasound 12/09/16 0000 Signed Impressions: Service Date/Time: Friday, December 09, 2016 15:16 - CONCLUSION: 1. 8.4 cm mass lesion at the base of the bladder. This may represent an intrinsic mass of the bladder versus a prominent anterior lobe of the prostate. 2. Otherwise, urinary bladder is partially decompressed with a Lipscomb catheter. 3. Both kidneys are sonographically normal. Roby Horta MD Objective Remarks GENERAL: Alert, NAD. SKIN: Warm and dry. HEAD: Normocephalic. EYES: No scleral icterus. No injection or drainage. NECK: Supple, trachea midline. No JVD or lymphadenopathy. CARDIOVASCULAR: Regular rate and rhythm without murmurs, gallops, or rubs. RESPIRATORY: Breath sounds equal bilaterally. No accessory muscle use. GASTROINTESTINAL: Abdomen soft, non-tender, nondistended. MUSCULOSKELETAL: No cyanosis, or edema. BACK: Nontender without obvious deformity. No CVA tenderness. Procedures 12/11- EGD- esophagitis, gastritis, duodenitis PEG placement Date of Insertion: January 24, 2017 A/P Problem List: (1) Bronchiolar obstruction ICD Code: J98.09 Status: Acute (2) Mass of left lung ICD Code: R91.8 Status: Acute (3) Squamous cell lung cancer ICD Code: C34.90 Status: Acute (4) Severe muscle deconditioning ICD Code: R29.898 Status: Acute (5) Anemia ICD Code: D64.9 Status: Acute (6) Acute respiratory failure ICD Code: J96.00 Status: Acute (7) Hemoptysis ICD Code: R04.2 Status: Acute (8) Hypoxia ICD Code: R09.02 Status: Acute Assessment and Plan Squamous cell lung cancer Currently undergoing radiation therapy. Supplemental oxygen as needed. Nebs as needed. Oncology and Pulmonary following. anemia with positive hem-occult Likely secondary to the above. Hemoglobin now 9.3 status post blood transfusion this week. s/p EGD with gastritis and esophagitis- continue PPI Acute kidney injury - improved. Creatinine peaked to 5.25. Currently Creatinine is around 1.50. Required hemodialysis from 11/08/2016 to 12/17/2016. Permcath removed. Nisa UTI: S/P treatment with fluconazole Bladder mass with urinary retention Urology performed cystoscopy which revealed a benign extension of the prostate. continue Doxazosin Seen by Urology --> recommended to remove Lipscomb cath. Currently voiding well. Dysphagia and malnutrition Continue mechanical soft diet per speech therapy. Tolerating tube feedings. Continue Megace for appetite stimulation. Problem Qualifiers (1) Squamous cell lung cancer: Qualified Code: C34.92 - Squamous cell lung cancer, left Ludivina Hare DO February 08, 2017 16:16 Check stool studies if further episodes. Diarrhea improved. Hypertension: controlled Orthostatic dizziness: Patient complains of dizziness when sitting. + orthostatic BP. Adjust BP meds as indicated. Continue PT. Problem Qualifiers (1) Squamous cell lung cancer: Qualified Code: C34.92 - Squamous cell lung cancer, left Ludivina Hare DO February 08, 2017 4:16 pm
[2017-02-08] MEDS: DOXAZOSIN MESYLATE 4 MG TAB PO SCH (20:32)
[2017-02-08] MEDS: ATORVASTATIN 40 MG TAB PO SCH (20:33)
[2017-02-09] VITALS (7 sets, daily range): BP systolic 105–110; BP diastolic 54–98; PULSE 101–116; RESP 17–20; TEMP 96.9–99.1; O2SAT 96–98
[2017-02-09] MEDS: cloNIDine HCL 0.1 MG TAB PO SCH ×3 (05:43→21:35)
[2017-02-09] MEDS: ACETAMINOPHEN/HYDROcodone 325 MG/5 MG TAB PO PRN (05:58)
[2017-02-09] MEDS: FLUTICASONE PROPIONATE 50 MCG/ACT 16 GM NASAL SPRAY EACH NARE SCH (07:51)
[2017-02-09] MEDS: SODIUM CHLORIDE 0.9% FLUSH 5 ML FLUSH FLUSH SCH ×2 (08:00→21:00)
[2017-02-09] MEDS: PANTOPRAZOLE SOD 40 MG DELAYED RELEASE TAB PO SCH (08:00)
[2017-02-09] MEDS: TAMSULOSIN HCL 0.4 MG CAP PO SCH (08:00)
[2017-02-09] MEDS: FERROUS SULFATE 300 MG /5ML UDC PO SCH (08:00)
[2017-02-09] MEDS: MEGESTROL ACETATE SUSP 400 MG/10 ML CUP PO SCH (08:00)
[2017-02-09] MEDS: PHENYTOIN SUSP 100 MG/4 ML CUP PO SCH ×2 (08:00→21:35)
[2017-02-09] MEDS: guaiFENesin E.R. 600 MG TAB PO SCH ×2 (08:00→21:35)
[2017-02-09] MEDS: NIFEdipine 90 MG SUSTAINED RELEASE TAB PO SCH (08:00)
[2017-02-09] MEDS: MORPHINE SULFATE 4 MG/ML INJ IV PUSH PRN (08:09)
--- NOTE | 2017-02-09 15:27 | HHI.PR ---
Subjective Remarks Follow-up for squamous cell lung cancer underwent radiation therapy, generalized weakness. Patient is currently doing well. Resting in bed. No acute concerns. Objective Vitals Vital Signs Date Time Temp Pulse Resp B/P Pulse Ox O2 Delivery O2 Flow Rate FiO2 02/09/17 11:50 97.9 101 20 110/60 96 02/09/17 08:18 Nasal Cannula 2.00 21 02/09/17 08:03 98 Nasal Cannula 2.00 02/09/17 07:50 99.1 116 20 108/69 97 02/09/17 04:00 99.0 114 19 105/64 96 02/08/17 23:30 98.6 112 18 102/62 96 02/08/17 20:10 98 Nasal Cannula 2.00 02/08/17 20:10 113 02/08/17 20:00 98.6 106 17 118/68 98 02/08/17 16:00 97.4 100 18 115/68 99 I/O 02/08/17 02/08/17 02/08/17 02/09/17 02/09/17 02/09/17 07:00 15:00 23:00 07:00 15:00 23:00 Intake Total 120 ml 600 ml 800 ml 860 ml Output Total 450 ml 300 ml 200 ml 550 ml Balance -330 ml 300 ml 600 ml 310 ml Intake Oral 120 ml 600 ml 480 ml 240 ml Tube Feeding 260 ml 500 ml Other 60 ml 120 ml Output Urine Total 450 ml 300 ml 200 ml 550 ml # Voids 1 # Bowel Movements 1 0 0 Result Diagram: 02/07/1737 02/07/17636 Objective Remarks GENERAL: Alert, NAD. SKIN: Warm and dry. HEAD: Normocephalic. EYES: No scleral icterus. No injection or drainage. NECK: Supple, trachea midline. No JVD or lymphadenopathy. CARDIOVASCULAR: Regular rate and rhythm without murmurs, gallops, or rubs. RESPIRATORY: Breath sounds equal bilaterally. No accessory muscle use. GASTROINTESTINAL: Abdomen soft, non-tender, nondistended. MUSCULOSKELETAL: No cyanosis, or edema. BACK: Nontender without obvious deformity. No CVA tenderness. Procedures 12/11- EGD- esophagitis, gastritis, duodenitis PEG placement Date of Insertion: January 24, 2017 A/P Problem List: (1) Bronchiolar obstruction ICD Code: J98.09 Status: Acute (2) Mass of left lung ICD Code: R91.8 Status: Acute (3) Squamous cell lung cancer ICD Code: C34.90 Status: Acute (4) Severe muscle deconditioning ICD Code: R29.898 Status: Acute (5) Anemia ICD Code: D64.9 Status: Acute (6) Acute respiratory failure ICD Code: J96.00 Status: Acute (7) Hemoptysis ICD Code: R04.2 Status: Acute (8) Hypoxia ICD Code: R09.02 Status: Acute Assessment and Plan Squamous cell lung cancer Currently undergoing radiation therapy. Supplemental oxygen as needed. Nebs as needed. Oncology and Pulmonary following. anemia with positive hem-occult Likely secondary to the above. Hemoglobin now 9.3 status post blood transfusion this week. s/p EGD with gastritis and esophagitis- continue PPI Acute kidney injury - improved. Creatinine peaked to 5.25. Currently Creatinine is around 1.50. Required hemodialysis from 11/08/2016 to 12/17/2016. Permcath removed. Nisa UTI: S/P treatment with fluconazole Bladder mass with urinary retention Urology performed cystoscopy which revealed a benign extension of the prostate. continue Doxazosin Seen by Urology --> recommended to remove Lipscomb cath. Currently voiding well. Dysphagia and malnutrition Continue mechanical soft diet per speech therapy. Tolerating tube feedings. Continue Megace for appetite stimulation. DNR. Heparin SQ. Problem Qualifiers (1) Squamous cell lung cancer: Qualified Code: C34.92 - Squamous cell lung cancer, left JosejwLudivina MCKEON February 09, 2017 3:27 pm
[2017-02-09] MEDS: ATORVASTATIN 40 MG TAB PO SCH (21:35)
[2017-02-09] MEDS: HEPARIN SODIUM - SQ 10,000 UNITS/ML VIAL SQ SCH (21:35)
[2017-02-09] MEDS: DOXAZOSIN MESYLATE 4 MG TAB PO SCH (21:36)
[2017-02-10] VITALS (7 sets, daily range): BP systolic 101–126; BP diastolic 65–96; PULSE 93–111; RESP 17–20; TEMP 96.8–98.5; O2SAT 98–99
[2017-02-10] MEDS: cloNIDine HCL 0.1 MG TAB PO SCH ×3 (05:19→20:25)
[2017-02-10] MEDS: MORPHINE SULFATE 4 MG/ML INJ IV PUSH PRN (08:27)
[2017-02-10] MEDS: PHENYTOIN SUSP 100 MG/4 ML CUP PO SCH ×2 (08:29→20:26)
[2017-02-10] MEDS: MEGESTROL ACETATE SUSP 400 MG/10 ML CUP PO SCH (08:29)
[2017-02-10] MEDS: FERROUS SULFATE 300 MG /5ML UDC PO SCH (08:29)
[2017-02-10] MEDS: NIFEdipine 90 MG SUSTAINED RELEASE TAB PO SCH (08:30)
[2017-02-10] MEDS: TAMSULOSIN HCL 0.4 MG CAP PO SCH (08:30)
[2017-02-10] MEDS: SODIUM CHLORIDE 0.9% FLUSH 5 ML FLUSH FLUSH SCH ×2 (08:30→20:26)
[2017-02-10] MEDS: guaiFENesin E.R. 600 MG TAB PO SCH ×2 (08:30→20:25)
[2017-02-10] MEDS: HEPARIN SODIUM - SQ 10,000 UNITS/ML VIAL SQ SCH ×2 (08:30→20:26)
[2017-02-10] MEDS: PANTOPRAZOLE SOD 40 MG DELAYED RELEASE TAB PO SCH (08:30)
[2017-02-10] MEDS: FLUTICASONE PROPIONATE 50 MCG/ACT 16 GM NASAL SPRAY EACH NARE SCH (08:36)
--- NOTE | 2017-02-10 15:26 | HHI.PR ---
Subjective Remarks Patien tin bed, says he is breathing well. Has nonproductive cough. No fever or chills. No n/v/d/c. Eating better, says he likes ensure. Had radiation in the morning. Objective Vitals Vital Signs Date Time Temp Pulse Resp B/P Pulse Ox O2 Delivery O2 Flow Rate FiO2 02/10/17 12:38 97.2 100 20 112/65 99 02/10/17 08:38 98 Nasal Cannula 2.00 02/10/17 08:32 98.1 109 20 104/70 98 02/10/17 08:24 Nasal Cannula 2.00 02/10/17 04:00 96.8 95 18 101/65 98 02/10/17 00:00 97.6 93 17 126/96 98 02/09/17 21:18 Nasal Cannula 2.00 02/09/17 20:00 Nasal Cannula 2.00 02/09/17 20:00 104 02/09/17 20:00 97.9 106 17 107/67 98 02/09/17 15:51 96.9 104 20 110/54 I/O 02/09/17 02/09/17 02/09/17 02/10/17 02/10/17 02/10/17 07:00 15:00 23:00 07:00 15:00 23:00 Intake Total 860 ml 474 ml 480 ml 1195 ml 440 ml Output Total 550 ml 300 ml 400 ml 1000 ml 250 ml Balance 310 ml 174 ml 80 ml 195 ml 190 ml Intake Oral 240 ml 474 ml 480 ml 480 ml 440 ml Tube Feeding 500 ml 715 ml Other 120 ml Output Urine Total 550 ml 300 ml 400 ml 1000 ml 250 ml # Bowel Movements 0 0 0 0 Result Diagram: 02/07/17 0637 02/07/17 0637 Imaging Last Impressions Chest X-Ray 01/31/17 0600 Signed Impressions: Service Date/Time: Tuesday, January 31, 2017 06:38 - CONCLUSION: Improved aeration of the left lower lung. Tono Vazquez MD Abdomen X-Ray 01/30/17 0000 Signed Impressions: Service Date/Time: January 10:55 - CONCLUSION: 1. No evidence for leakage or obstruction after injection of gastrostomy tube. Ken Crandall MD Central Venous Line 01/14/17 1150 Signed Impressions: Service Date/Time: Saturday, January 14, 2017 11:50 - CONCLUSION: Uncomplicated Permcath removal. Beto Perry MD Lower Extremity Ultrasound 01/06/17 0000 Signed Impressions: Service Date/Time: Friday, January 06, 2017 09:02 - CONCLUSION: Normal examination. Shawn Reyes MD Upper Extremity Ultrasound 12/11/16 1506 Signed Impressions: Service Date/Time: Sunday, December 11, 2016 18:00 - CONCLUSION: Superficial thrombophlebitis, extensive edema and nonspecific fluid collections in the subcutaneous tissues. Shawn Reyes MD Head CT 12/11/16 0000 Signed Impressions: Service Date/Time: Sunday, December 11, 2016 20:00 - CONCLUSION: Slight atrophic and small vessel ischemic changes without any evidence for acute hemorrhage or mass effect. Shawn Reyes MD Renal Ultrasound 12/09/16 0000 Signed Impressions: Service Date/Time: Friday, December 09, 2016 15:16 - CONCLUSION: 1. 8.4 cm mass lesion at the base of the bladder. This may represent an intrinsic mass of the bladder versus a prominent anterior lobe of the prostate. 2. Otherwise, urinary bladder is partially decompressed with a Lipscomb catheter. 3. Both kidneys are sonographically normal. Roby Horta MD Objective Remarks GENERAL: This is a well-nourished, well-developed patient, in no apparent distress. SKIN: No rashes, ecchymoses or lesions. Cool and dry. HEAD: Atraumatic. Normocephalic. No temporal or scalp tenderness. EYES: Pupils equal round and reactive. Extraocular motions intact. No scleral icterus. No injection or drainage. ENT: Nose without bleeding, purulent drainage or septal hematoma. Throat without erythema, tonsillar hypertrophy or exudate. Uvula midline. Airway patent. NECK: Trachea midline. No JVD or lymphadenopathy. Supple, nontender, no meningeal signs. CARDIOVASCULAR: Regular rate and rhythm without murmurs, gallops, or rubs. RESPIRATORY: Clear to auscultation. Breath sounds equal bilaterally. No wheezes , rales, or rhonchi. GASTROINTESTINAL: Abdomen soft, non-tender, nondistended. No hepato-splenomegaly , or palpable masses. No guarding. MUSCULOSKELETAL: Arms swelling. BL LE edema 3+ . Extremities without clubbing, cyanosis. No joint tenderness, effusion, or edema noted. No calf tenderness. Negative Homans sign bilaterally. NEUROLOGICAL: Awake and alert. Cranial nerves II through XII intact. Motor and sensory grossly within normal limits. Five out of 5 muscle strength in all muscle groups. Normal speech. 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 Complicated stay with occluded stent in the left main bronchus, was intubated, extubated, currently satting well on 3L NC. Records reviewed ( in the pts chart). Respiratory failure requiring O2 supplement Duonebs as need. Patient was treated for PNA bronch sputum klebsiella + , ( treated at [facility] and finished course of abx per records). Blood cx were negative 11/07/16 ECHO 55-60% Consult hem/onc. Patient needs PET as OP before starting treatment. Patient with anemia HGB 6.6 on 12/06/16. Plan to type and screen and transfuse 2U pRBC.Monitor H/H and transfuse as need. Check iron panel. FOBT. FOBT positive, consult GI, appreciate recommendations. HGB 12/07/16 of 8.7. Monitor and transfuse as need. Rossi count. Per GI will hold EGD/colonoscopy for now, might be a candidate for PEG tube Start megace for appetite enhancing ESRD requiring HD. US kidney at [facility] rev findings consistent with chronic kidney disease. Consult nephrology. Tunnelled dialysis catheter was placed 12/04 ( right) at [facility]. 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 Consult Speech therapy and also gui developer. HTN- Continue atenolol 25 mg po bid BPH continue doxazosin 8 mg qhs Seizure- Continue Dilantin. Seizure precautions. Stable. DVT ppx with SCD/TEDs Consult case management for DC plan Consult PT/OT/ ST Discussed Condition With Patient, nurse. Discharge Planning needs placement Problem Qualifiers (1) Squamous cell lung cancer: Qualified Code: C34.92 - Squamous cell lung cancer, left Izzy Degroot MD February 10, 2017 15:26
--- NOTE | 2017-02-10 19:03 | HHI.PR ---
Subjective Remarks On 3LNC Had radiation today CXR improved aeration of LLL Breathing better No cough or sp No fever Objective Vital Signs Vital Signs Date Time Temp Pulse Resp B/P Pulse Ox O2 Delivery O2 Flow Rate FiO2 02/10/17 16:39 98.5 108 20 106/67 99 02/10/17 12:38 97.2 100 20 112/65 99 02/10/17 08:38 98 Nasal Cannula 2.00 02/10/17 08:32 98.1 109 20 104/70 98 02/10/17 08:24 Nasal Cannula 2.00 02/10/17 04:00 96.8 95 18 101/65 98 02/10/17 00:00 97.6 93 17 126/96 98 02/09/17 21:18 Nasal Cannula 2.00 02/09/17 20:00 Nasal Cannula 2.00 02/09/17 20:00 104 02/09/17 20:00 97.9 106 17 107/67 98 I/O 02/09/17 02/09/17 02/09/17 02/10/17 02/10/17 02/10/17 07:00 15:00 23:00 07:00 15:00 23:00 Intake Total 860 ml 474 ml 480 ml 1195 ml 440 ml Output Total 550 ml 300 ml 400 ml 1000 ml 250 ml Balance 310 ml 174 ml 80 ml 195 ml 190 ml Intake Oral 240 ml 474 ml 480 ml 480 ml 440 ml Tube Feeding 500 ml 715 ml Other 120 ml Output Urine Total 550 ml 300 ml 400 ml 1000 ml 250 ml # Bowel Movements 0 0 0 0 Result Diagram: 02/07/1737 02/07/17636 Objective Remarks GENERAL: Patient is lying in bed in NAD SKIN: Warm and dry. HEAD: Normocephalic. EYES: No scleral icterus. No injection or drainage. NECK: Supple, trachea midline. No JVD or lymphadenopathy. CARDIOVASCULAR: Regular rate and rhythm without murmurs, gallops, or rubs. RESPIRATORY: Breath sounds equal bilaterally. No accessory muscle use. GASTROINTESTINAL: Abdomen soft, non-tender, nondistended. MUSCULOSKELETAL: No cyanosis, or edema. BACK: Nontender without obvious deformity. No CVA tenderness. Neuro: Awake and alert A/P Assessment and Plan 1)Resp [place] 2)Opacification of left hemithorax -Improved 3)Squamous cell ca involving left main stem s/p endobronchial stent placement s/p XTR 4)s/p Hemoptysis 5)ARF 5)Anemia 6)Leukocytosis 7)HTN 8)UTI Plan Continue with oxygen keep sat >92% Bronchodilators (DuoNeb) S/p stent placement in the left main bronchus at [facility]. Monitor renal function, , Supplement 02 to keep sat >90% Aerosol nebs Works with PT Monitor H/H Valeriy Wilkins MD February 10, 2017 19:03
[2017-02-10] MEDS: ATORVASTATIN 40 MG TAB PO SCH (20:25)
[2017-02-10] MEDS: DOXAZOSIN MESYLATE 4 MG TAB PO SCH (20:25)
[2017-02-10] MEDS: CALCIUM CARBONATE 500 MG CHEWABLE TAB CHEW PRN (20:31)
[2017-02-10] MEDS: ACETAMINOPHEN/HYDROcodone 325 MG/5 MG TAB PO PRN (21:35)
[2017-02-11] VITALS (8 sets, daily range): BP systolic 105–117; BP diastolic 61–70; PULSE 103–113; RESP 17–20; TEMP 98.1–98.7; O2SAT 93–98
[2017-02-11] MEDS: cloNIDine HCL 0.1 MG TAB PO SCH ×3 (05:08→22:00)
[2017-02-11] MEDS: SODIUM CHLORIDE 0.9% FLUSH 5 ML FLUSH FLUSH SCH ×2 (09:00→20:06)
[2017-02-11] MEDS: guaiFENesin E.R. 600 MG TAB PO SCH ×2 (09:04→20:04)
[2017-02-11] MEDS: NIFEdipine 90 MG SUSTAINED RELEASE TAB PO SCH (09:04)
[2017-02-11] MEDS: PANTOPRAZOLE SOD 40 MG DELAYED RELEASE TAB PO SCH (09:04)
[2017-02-11] MEDS: MEGESTROL ACETATE SUSP 400 MG/10 ML CUP PO SCH (09:04)
[2017-02-11] MEDS: FERROUS SULFATE 300 MG /5ML UDC PO SCH (09:04)
[2017-02-11] MEDS: TAMSULOSIN HCL 0.4 MG CAP PO SCH (09:04)
[2017-02-11] MEDS: PHENYTOIN SUSP 100 MG/4 ML CUP PO SCH ×2 (09:04→20:04)
[2017-02-11] MEDS: FLUTICASONE PROPIONATE 50 MCG/ACT 16 GM NASAL SPRAY EACH NARE SCH (09:05)
[2017-02-11] MEDS: HEPARIN SODIUM - SQ 10,000 UNITS/ML VIAL SQ SCH ×2 (09:05→20:04)
--- NOTE | 2017-02-11 12:13 | HHI.HCPN ---
Reason for visit a. To assist with evaluation and management of symptoms including: dyspnea, weakness, malnutrition b. To assist medical decision maker(s) with: better understanding of current medical conditions; weighing benefits/burdens of medical treatment options; making medical treatment decisions. (Evangelina Watson) Subjective/Interval History Pt seen to follow up on dyspnea , goals, update to family. Palliative continues to follow pt weekly or as needed as condition evolves. Patient has remained stable, continuing XRT, having completed 24 of 35 total treatments. CM/med attending exploring discharge options. Pt still very weak, debilitated. Working with PT; + dizziness upon standing up, primarily tolerating sitting at side of bed unable to stand/ambulate. On nasal cannula. Appetite fair-eating 50-100% of meals in the daytime, tube feeding at night. No new labs since 02/07. VS WNL. Lipscomb has been d/c 02/10, voiding adequately. Last BM 02/09. (has prn senna and dulcolax available). Patient seen in room , alert, watching TV. Pleasant, oriented and appropriate.Reasonable insight. Reports radiation going well, MD told him "the tumor was breaking up". He understands he still has cancer but that the radiation has helped some. ROS neg-- he denies pain, denies dyspnea. Endorses infreq cough with clear sputum. Feeling well overall. Appetite "good for him", usually he eats 2 sm meals a day. Does endorse intermittent difficulty passing BM, enc prn stool softner use. Discuss prognosis, discharge possibilities, given his dx/debilitated state-- he is still in discussion w his son RE transition up to [place]. Review home w hospice vs home health, as he will still need significant medical management, he plans to get home for a few days to get things in order before moving up to [place] with his son. He is still somewhat unrealistic as he indicates he is hopeful to be walking a little better /more by time his XRT is done (11 tx left) and hopeful to not need as much help. Review that he will still likely be dependent for care, and primarily bed bound. later call to SALOMÓN Hidalgo to provide update . (Evangelina Watson) Advance Directives Living Will: Completed, but not made available Health Care Surrogate: Copy in medical record (Evangelina Watson) Advance Directive Specifics Date completed: 12/17/16 Health Care Surrogate(s): Names son Elpidio Jaime as HCS (Evangelina Watson) Objective Vital Signs Date Time Temp Pulse Resp B/P Pulse Ox O2 Delivery O2 Flow Rate FiO2 02/11/17 09:04 Nasal Cannula 2.00 02/11/17 08:49 98.2 112 20 109/69 93 02/11/17 04:00 98.4 110 18 105/61 97 02/11/17 00:00 98.4 109 18 106/61 97 02/10/17 20:00 111 02/10/17 20:00 98.0 109 18 113/69 98 02/10/17 20:00 Nasal Cannula 2.00 02/10/17 16:39 98.5 108 20 106/67 99 02/10/17 12:38 97.2 100 20 112/65 99 Intake & Output 02/11/17 02/11/17 07:00 19:00 Intake Total 360 ml Output Total 1100 ml Balance -740 ml Intake Oral 360 ml Output Urine Total 1100 ml Physical Exam CONSTITUTIONAL/GENERAL: This is a chronically ill appearing pt, no distress, alert, pleasant TUBES/LINES/DRAINS:pIV LUE, nasal cannula, +PEG tube CARDIOVASCULAR: Regular rate and rhythm, no murmurs. Peripheral pulses symmetric. RESPIRATORY/CHEST: Symmetric, unlabored respirations. + 2L NC. Clear to right, improved air movement to left, + coarse scattered rhonchi. GASTROINTESTINAL: Abdomen soft, non-tender, nondistended. No palpable masses. No guarding. Bowel sounds present.PEG tube clamped ,dressing clean/dry NEUROLOGICAL: Alert, orientedx3 . Pleasant and cooperative. Reasonable insight into hospitalization and conditions. Follows commands. Moves all 4 extremities with significant weakness PSYCHIATRIC: No obvious anxiety/depression. . (Evangelina Watson) Diagnostic Tests Result Diagram: 02/07/1737 02/07/17 0637 Imaging Last Impressions Chest X-Ray 01/31/17 0600 Signed Impressions: Service Date/Time: Tuesday, January 31, 2017 06:38 - CONCLUSION: Improved aeration of the left lower lung. Tono Vazquez MD Abdomen X-Ray 01/30/17 0000 Signed Impressions: Service Date/Time: January 10:55 - CONCLUSION: 1. No evidence for leakage or obstruction after injection of gastrostomy tube. Ken Crandall MD Central Venous Line 01/14/17 1150 Signed Impressions: Service Date/Time: Saturday, January 14, 2017 11:50 - CONCLUSION: Uncomplicated Permcath removal. Beto Perry MD Lower Extremity Ultrasound 01/06/17 0000 Signed Impressions: Service Date/Time: Friday, January 06, 2017 09:02 - CONCLUSION: Normal examination. Shawn Reyes MD Upper Extremity Ultrasound 12/11/16 1506 Signed Impressions: Service Date/Time: Sunday, December 11, 2016 18:00 - CONCLUSION: Superficial thrombophlebitis, extensive edema and nonspecific fluid collections in the subcutaneous tissues. Shawn Reyes MD Head CT 12/11/16 0000 Signed Impressions: Service Date/Time: Sunday, December 11, 2016 20:00 - CONCLUSION: Slight atrophic and small vessel ischemic changes without any evidence for acute hemorrhage or mass effect. Shawn Reyes MD Renal Ultrasound 12/09/16 0000 Signed Impressions: Service Date/Time: Friday, December 09, 2016 15:16 - CONCLUSION: 1. 8.4 cm mass lesion at the base of the bladder. This may represent an intrinsic mass of the bladder versus a prominent anterior lobe of the prostate. 2. Otherwise, urinary bladder is partially decompressed with a Lipscomb catheter. 3. Both kidneys are sonographically normal. Roby Horta MD (Evangelina Watson) Assessment and Plan Disease Oriented Problem List: (1) Mass of left lung Comment: +SCC (2) Acute renal failure (3) Squamous cell lung cancer (4) Bladder mass (5) Anemia (6) UTI (urinary tract infection) Comment: awaiting BX/resection when stable (7) Severe muscle deconditioning (8) Acute respiratory failure Comment: resolved Symptom Scale: (1) Malnutrition (2) Dyspnea (3) Weakness (4) Pain Pertinent Non-Medical Issues Psychosocial:. 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 Lives at home alone. Supported by 4 sons, 2 in [place], 2 in [place] Spiritual: Legal:pt appears able to participate in decision making. Reports his son Elpidio is HCS, they will provide copies. Pt appears to have simple understanding of things and wishes to include his son in medical updates and decision making . Ethical issues impacting care: Important Contacts Son Marly Landeros- ([facility]) Elpidio Jaime [phone] (Gwen, DIL [phone]) Son Marly Landeros - Soham Jaime [phone] . Prognosis This patient has a new diagnosis of squamous cell carcinoma, s/p mass resection , intubation and arrest. He subsequently suffered acute renal failure and remains on hemodialysis. He has new findings of a large bladder mass, concerning for cancer, however cannot have additional diagnostic procedures until acute condition improves. It is possible his cancer could be treated, however his acute issues need to improve and his overall performance status needs to improve in order to obtain staging, and possible treatment. He has multiple issues and is severely deconditioned, it may take significant time for him to improve enough for treatment and during that time he remains high risk for further complications and setbacks. Code Status: Full Code Plan * Legal decision maker:pt appears able to participate in decision making. Reports his son Elpidio is [facility], they will provide copies. Pt appears to have simple understanding of things and wishes to include his son in medical updates and decision making . [facility] completed 12/17/16 naming son Elpidio Jaime as [facility] * Goals: GOALS HAVE BEEN AGGRESSIVE, pt wants to try to get needed resources in line in order to to go back home to [place] with his son, and possible obtain chemotherapy to treat his cancer and have more time. Patient's son and healthcare surrogate Elpidio is supportive of the patient's wishes. They're working to try to get him up to [place] closer to them. I provided an update to son 12/19 -- 01/13/17- Pt off unit. need to re address [facility], hospice has been consulted during [facility] epoisode earlier this am. Could d/c w hospice, however would not be able to cont radiation on hospice. 1400 patient seen later in the afternoon after his return from radiation. Has now completed 4 of 25 treatments. He endorses feeling more tired and out of sorts in the past day or so. No specific complaints otherwise. He affirms DNR status. He is not certain if he wishes to proceed with hospice, or if he wishes to remain in the hospital and attempt to continue radiation treatments, other aggressive treatments short of resuscitation. He is going to talk more with his son Elpidio when he arrives later today to make further decisions. Palliative plans to follow-up again with him tomorrow 01/14 -- 01/14/17 met w pt, son, They have had ongoing conversations RE continuing radiation/semi aggressive tx short of resuscitation, vs transition to hospice and d/c out of the hospital to get up to [place] with family. Pt wishes to continue to try to complete radiation, he understands remains high risk for complications /resp issues. Plan is to enroll in hospice, after completing radiation. Wants to remain DNR. -- 01/22/17 met w pt at [facility]. He is A&O. goals remain aggressive. Feeling well overall. Wants to work with PT. --01/31/17: goals remain aggressive. update to family. --02/07/17- palliative continues to follow patient weekly and as needed. Discuss goals, discharge planning with patient and family today. Limited options, chemotherapy is not an option for the patient at this point, unlikely to become an option due to severely debilitated status. Option to discharge locally with hospice and try to pursue transition to [place] with an accepting hospice up there versus pursue rehabilitation locally, which would be high risk for complications/setbacks/hospital readmission. Patient and family to continue discuss over the next week. -- 02/11/17 - ongoing discussions w pt, family RE discharge planning/condition /prognosis, limited options. Wants to cont aggressive tx while completing XRT here in the hospital. Still working with family regarding getting up to [place] where he will live with his son, ongoing discussions RE home with hospice locally vs home with other assistance son + (home health??) and then transition to [place]. * CODE STATUS: DNR * SYMPTOMS: --dyspnea- s/p acute resp failure- prolonged intubation, resolved. Has been on nasal cannula O2, PRN nebulizers-- denies and shortness of breath; earlier today with episode of desaturation, dyspnea. CXR appears unchanged, essentially white out of left lung. Episode of respiratory distress last month , required transfer to ICU and BiPAP, now out of ICU. currently maintaining on nasal cannula - has elected NOT to use B IPAP anymore. HALICAT last month due to hemoptysis, desaturation, pt elected NO intubation, DNR, comfort measures only, HOSPICE consulted at that time, though patient did not elect hospice. Goal to Continue to pursue aggressive treatment until completion of radiation. --malnutrition- +PEG, TF at night, appetite fair/good -- eating 50%-100% of most recent meals. --weakness/deconditioning - in hospital since 10/22 -- severely deconditioned- -> PT working with, pt with limited strength to even sit on side of bed.Pt reports difficulty feeding self due to weakness.Continues to work with OT/PT though clinical condition limits his ability to participate in prolonged therapy -- PT continues to work with pt --Dysphagia- post ST eval,tolerating thin liquids, probably remains ongoing risk for aspiration -- intermittent constipation- on occasional prn opiates; has prn bowel regimen. BM every few days, difficult recently per pt, rec. use of PRNs- if ineffective consider scheduled dosing of senna instead of PRN. -- pain-- infrequent chest wall pain (likely 2/2 disease process) has prn morphine, norco, infrequent use (last use 02/10), none required today.cont to evaluate. * Palliative care will continue to follow during hospital course as condition evolves, to assist patient/decision-maker with understanding of medical conditions, weighing benefits/burdens of treatment options, for clarification of goals of treatment. Additionally will assist with any symptoms of palliative concern (Evangelina Watson) Attestation To help prompt me to consider important information that might be impacting today's encounter and assessment, information from prior notes written by myself or my colleagues may have been "brought forward" into today's note. My signature on this note, however, is an attestation that I personally performed the exam, history, and/or decision-making noted today, and, unless otherwise indicated, the interactions with patient, family, and staff as well as the review of records all occurred today. I also attest that the listed assessment and stated plan reflect my best clinical judgment today based on the combination of historical information, prior notes, and today's exam/ interactions. When time spent is documented, it refers only to time spent today by the signer, or if indicated, combined time spent today by collaborating physician/nurse practitioner. (Evangelina Watson) Collaborating MD Comments . Chart reviewed. Case discussed with palliative care PRESS DEPARTMENT MANAGER. I have reviewed above PRESS DEPARTMENT MANAGER note and I concur. . (Ciro Reynoso MD) Evangelina Watson February 11, 2017 12:13 Ciro Reynoso MD February 18, 2017 12:44
--- NOTE | 2017-02-11 13:40 | HHI.PR ---
Subjective Remarks Patient was seen storeperson. He is still short of breath however thinks is improving after radiation. No chest pain. He has cough nonproductive. Feels some congestion in his chest. No nausea or vomiting. Says he has decreased appetite. He is enjoying ensure. Denies fevers or chills. Satting well on 2 L oxygen by nasal cannula. Since he is very weak. He is not getting out of the bed. Working with physical therapy. Objective Vitals Vital Signs Date Time Temp Pulse Resp B/P Pulse Ox O2 Delivery O2 Flow Rate FiO2 02/11/17 12:23 98.1 103 20 117/70 98 02/11/17 09:04 Nasal Cannula 2.00 02/11/17 08:49 98.2 112 20 109/69 93 02/11/17 04:00 98.4 110 18 105/61 97 02/11/17 00:00 98.4 109 18 106/61 97 02/10/17 20:00 111 02/10/17 20:00 98.0 109 18 113/69 98 02/10/17 20:00 Nasal Cannula 2.00 02/10/17 16:39 98.5 108 20 106/67 99 I/O 02/10/17 02/10/17 02/10/17 02/11/17 02/11/17 02/11/17 06:59 14:59 22:59 06:59 14:59 22:59 Intake Total 1195 ml 440 ml 120 ml 240 ml Output Total 1000 ml 250 ml 300 ml 800 ml Balance 195 ml 190 ml -180 ml -560 ml Intake Oral 480 ml 440 ml 120 ml 240 ml Tube Feeding 715 ml Output Urine Total 1000 ml 250 ml 300 ml 800 ml # Bowel Movements 0 Result Diagram: 02/07/17 0637 02/07/17 0637 Imaging Last Impressions Chest X-Ray 01/31/17 0600 Signed Impressions: Service Date/Time: Tuesday, January 31, 2017 06:38 - CONCLUSION: Improved aeration of the left lower lung. Tono Vazquez MD Abdomen X-Ray 01/30/17 0000 Signed Impressions: Service Date/Time: January 10:55 - CONCLUSION: 1. No evidence for leakage or obstruction after injection of gastrostomy tube. Ken Crandall MD Central Venous Line 01/14/17 1150 Signed Impressions: Service Date/Time: Saturday, January 14, 2017 11:50 - CONCLUSION: Uncomplicated Permcath removal. Beto Perry MD Lower Extremity Ultrasound 01/06/17 0000 Signed Impressions: Service Date/Time: Friday, January 06, 2017 09:02 - CONCLUSION: Normal examination. Shawn Reyes MD Upper Extremity Ultrasound 12/11/16 1506 Signed Impressions: Service Date/Time: Sunday, December 11, 2016 18:00 - CONCLUSION: Superficial thrombophlebitis, extensive edema and nonspecific fluid collections in the subcutaneous tissues. Shawn Reyes MD Head CT 12/11/16 0000 Signed Impressions: Service Date/Time: Sunday, December 11, 2016 20:00 - CONCLUSION: Slight atrophic and small vessel ischemic changes without any evidence for acute hemorrhage or mass effect. Shawn Reyes MD Renal Ultrasound 12/09/16 0000 Signed Impressions: Service Date/Time: Friday, December 09, 2016 15:16 - CONCLUSION: 1. 8.4 cm mass lesion at the base of the bladder. This may represent an intrinsic mass of the bladder versus a prominent anterior lobe of the prostate. 2. Otherwise, urinary bladder is partially decompressed with a Lipscomb catheter. 3. Both kidneys are sonographically normal. Roby Horta MD Objective Remarks GENERAL: This is a well-nourished, well-developed patient, in no apparent distress. SKIN: No rashes, ecchymoses or lesions. Cool and dry. HEAD: Atraumatic. Normocephalic. No temporal or scalp tenderness. EYES: Pupils equal round and reactive. Extraocular motions intact. No scleral icterus. No injection or drainage. ENT: Nose without bleeding, purulent drainage or septal hematoma. Throat without erythema, tonsillar hypertrophy or exudate. Uvula midline. Airway patent. NECK: Trachea midline. No JVD or lymphadenopathy. Supple, nontender, no meningeal signs. CARDIOVASCULAR: Regular rate and rhythm without murmurs, gallops, or rubs. RESPIRATORY: Clear to auscultation. Breath sounds equal bilaterally. No wheezes , rales, or rhonchi. GASTROINTESTINAL: Abdomen soft, non-tender, nondistended. No hepato-splenomegaly , or palpable masses. No guarding. MUSCULOSKELETAL: Arms swelling. BL LE edema 3+ . Extremities without clubbing, cyanosis. No joint tenderness, effusion, or edema noted. No calf tenderness. Negative Homans sign bilaterally. NEUROLOGICAL: Awake and alert. Cranial nerves II through XII intact. Motor and sensory grossly within normal limits. Five out of 5 muscle strength in all muscle groups. Normal speech. 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 Complicated stay with occluded stent in the left main bronchus, was intubated, extubated, currently satting well on 3L NC. Records reviewed ( in the pts chart). Respiratory failure requiring O2 supplement Duonebs as need. Patient was treated for PNA bronch sputum klebsiella + , ( treated at [facility] and finished course of abx per records). Blood cx were negative 11/07/16 ECHO 55-60% Consult hem/onc. Patient needs PET as OP before starting treatment. Patient with anemia HGB 6.6 on 12/06/16. Plan to type and screen and transfuse 2U pRBC.Monitor H/H and transfuse as need. Check iron panel. FOBT. FOBT positive, consult GI, appreciate recommendations. HGB 12/07/16 of 8.7. Monitor and transfuse as need. Rossi count. Per GI will hold EGD/colonoscopy for now, might be a candidate for PEG tube Start megace for appetite enhancing ESRD requiring HD. US kidney at [facility] rev findings consistent with chronic kidney disease. Consult nephrology. Tunnelled dialysis catheter was placed 12/04 ( right) at [facility]. 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 Consult Speech therapy and also mine safety director. HTN- Continue atenolol 25 mg po bid BPH continue doxazosin 8 mg qhs Seizure- Continue Dilantin. Seizure precautions. Stable. Physical deconditioning conditioning. PT consult DVT ppx with SCD/TEDs Consult case management for DC plan Consult PT/OT/ ST Discussed Condition With Patient, nurse. Discharge Planning needs SNF Problem Qualifiers (1) Squamous cell lung cancer: Qualified Code: C34.92 - Squamous cell lung cancer, left Izzy Degroot MD February 11, 2017 13:40
[2017-02-11] MEDS: LACTULOSE SYRUP 20 GM/30 ML CUP PO PRN (14:18)
[2017-02-11] MEDS: DOXAZOSIN MESYLATE 4 MG TAB PO SCH (20:05)
[2017-02-11] MEDS: ATORVASTATIN 40 MG TAB PO SCH (20:07)
[2017-02-12] VITALS (9 sets, daily range): BP systolic 96–119; BP diastolic 54–74; PULSE 105–114; RESP 16–20; TEMP 98.5–100.1; O2SAT 92–99
[2017-02-12] MEDS: cloNIDine HCL 0.1 MG TAB PO SCH ×3 (04:26→22:00)
--- NOTE | 2017-02-12 07:47 | HHI.PR ---
Subjective Remarks Says he can't sit in the chair, he feels weak but thinks is improving with PT. Says he is exercising while in bed. Still with sob, on O2. No n/v/d/c. Denies chest pain. Objective Vitals Vital Signs Date Time Temp Pulse Resp B/P Pulse Ox O2 Delivery O2 Flow Rate FiO2 02/12/17 04:00 99.4 111 16 96/54 92 02/12/17 00:00 98.5 108 16 108/67 98 02/11/17 21:40 96 Nasal Cannula 2.00 02/11/17 20:08 113 02/11/17 20:04 96 Nasal Cannula 2.00 02/11/17 20:00 98.7 109 17 111/67 96 02/11/17 16:18 98.5 105 20 106/68 98 02/11/17 12:23 98.1 103 20 117/70 98 02/11/17 09:04 Nasal Cannula 2.00 02/11/17 08:49 98.2 112 20 109/69 93 I/O 02/11/17 02/11/17 02/11/17 02/12/17 02/12/17 02/12/17 07:00 15:00 23:00 07:00 15:00 23:00 Intake Total 240 ml 440 ml Output Total 800 ml 330 ml 300 ml 450 ml Balance -560 ml 110 ml -300 ml -450 ml Intake Oral 240 ml 440 ml Output Urine Total 800 ml 330 ml 300 ml 450 ml # Bowel Movements 1 1 Imaging Last Impressions Chest X-Ray 01/31/17 0600 Signed Impressions: Service Date/Time: Tuesday, January 31, 2017 06:38 - CONCLUSION: Improved aeration of the left lower lung. Tono Vazquez MD Abdomen X-Ray 01/30/17 0000 Signed Impressions: Service Date/Time: January 10:55 - CONCLUSION: 1. No evidence for leakage or obstruction after injection of gastrostomy tube. Ken Crandall MD Central Venous Line 01/14/17 1150 Signed Impressions: Service Date/Time: Saturday, January 14, 2017 11:50 - CONCLUSION: Uncomplicated Permcath removal. Beto Perry MD Lower Extremity Ultrasound 01/06/17 0000 Signed Impressions: Service Date/Time: Friday, January 06, 2017 09:02 - CONCLUSION: Normal examination. Shawn Reyes MD Upper Extremity Ultrasound 12/11/16 1506 Signed Impressions: Service Date/Time: Sunday, December 11, 2016 18:00 - CONCLUSION: Superficial thrombophlebitis, extensive edema and nonspecific fluid collections in the subcutaneous tissues. Shawn Reyes MD Head CT 12/11/16 0000 Signed Impressions: Service Date/Time: Sunday, December 11, 2016 20:00 - CONCLUSION: Slight atrophic and small vessel ischemic changes without any evidence for acute hemorrhage or mass effect. Shawn Reyes MD Renal Ultrasound 12/09/16 0000 Signed Impressions: Service Date/Time: Friday, December 09, 2016 15:16 - CONCLUSION: 1. 8.4 cm mass lesion at the base of the bladder. This may represent an intrinsic mass of the bladder versus a prominent anterior lobe of the prostate. 2. Otherwise, urinary bladder is partially decompressed with a Lipscomb catheter. 3. Both kidneys are sonographically normal. Roby Horta MD Objective Remarks GENERAL: This is a well-nourished, well-developed patient, in no apparent distress. SKIN: No rashes, ecchymoses or lesions. Cool and dry. HEAD: Atraumatic. Normocephalic. No temporal or scalp tenderness. EYES: Pupils equal round and reactive. Extraocular motions intact. No scleral icterus. No injection or drainage. ENT: Nose without bleeding, purulent drainage or septal hematoma. Throat without erythema, tonsillar hypertrophy or exudate. Uvula midline. Airway patent. NECK: Trachea midline. No JVD or lymphadenopathy. Supple, nontender, no meningeal signs. CARDIOVASCULAR: Regular rate and rhythm without murmurs, gallops, or rubs. RESPIRATORY: Clear to auscultation. Breath sounds equal bilaterally. No wheezes , rales, or rhonchi. GASTROINTESTINAL: Abdomen soft, non-tender, nondistended. No hepato-splenomegaly , or palpable masses. No guarding. MUSCULOSKELETAL: Arms swelling. BL LE edema 3+ . Extremities without clubbing, cyanosis. No joint tenderness, effusion, or edema noted. No calf tenderness. Negative Homans sign bilaterally. NEUROLOGICAL: Awake and alert. Cranial nerves II through XII intact. Motor and sensory grossly within normal limits. Five out of 5 muscle strength in all muscle groups. Normal speech. 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 Complicated stay with occluded stent in the left main bronchus, was intubated, extubated, currently satting well on 3L NC. Records reviewed ( in the pts chart). Respiratory failure requiring O2 supplement Duonebs as need. Patient was treated for PNA bronch sputum klebsiella + , ( treated at [facility] and finished course of abx per records). Blood cx were negative 11/07/16 ECHO 55-60% Consult hem/onc. Patient needs PET as OP before starting treatment. Patient with anemia HGB 6.6 on 12/06/16. Plan to type and screen and transfuse 2U pRBC.Monitor H/H and transfuse as need. Check iron panel. FOBT. FOBT positive, consult GI, appreciate recommendations. HGB 12/07/16 of 8.7. Monitor and transfuse as need. Rossi count. Per GI will hold EGD/colonoscopy for now, might be a candidate for PEG tube Start megace for appetite enhancing ESRD requiring HD. US kidney at [facility] rev findings consistent with chronic kidney disease. Consult nephrology. Tunnelled dialysis catheter was placed 12/04 ( right) at [facility]. Dysphagia/ protein rossi malnutrition weak order runner, prolonged ICU care, on puree diet and tube feedings supplement. 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 HTN- Continue atenolol 25 mg po bid BPH continue doxazosin 8 mg qhs Seizure- Continue Dilantin. Seizure precautions. Stable. Physical deconditioning conditioning. PT consult DVT ppx with SCD/TEDs Consult case management for DC plan Consult PT/OT/ ST Discussed Condition With Patient, nurse. Discharge Planning needs SNF Problem Qualifiers (1) Squamous cell lung cancer: Qualified Code: C34.92 - Squamous cell lung cancer, left Izzy Degroot MD February 12, 2017 07:47
--- NOTE | 2017-02-12 08:17 | RADRPT ---
EXAM DATE/TIME: 02/12/2017 07:35 [facility] COMPARISON: CHEST SINGLE AP, January 31, 2017, 6:38. INDICATIONS : Short of breath. MEDICAL HISTORY : Carcinoma, lung. Cardiovascular disease. Hypertension. SURGICAL HISTORY : None. ENCOUNTER: Subsequent ACUITY: 2 weeks PAIN SCORE: 0/10 LOCATION: Bilateral chest FINDINGS: A single view of the chest demonstrates improving left upper lobe density. Patchy densities in the le ft retrocardiac region.. Osseous structures are intact. CONCLUSION: Improving left upper lobe density. Chalo Hamlin MD on February 12, 2017 at 8:15 Board Certified Radiologist. This report was verified electronically.
[2017-02-12] MEDS: HEPARIN SODIUM - SQ 10,000 UNITS/ML VIAL SQ SCH ×2 (09:21→20:17)
[2017-02-12] MEDS: FERROUS SULFATE 300 MG /5ML UDC PO SCH (09:21)
[2017-02-12] MEDS: TAMSULOSIN HCL 0.4 MG CAP PO SCH (09:21)
[2017-02-12] MEDS: NIFEdipine 90 MG SUSTAINED RELEASE TAB PO SCH (09:21)
[2017-02-12] MEDS: guaiFENesin E.R. 600 MG TAB PO SCH ×2 (09:21→20:17)
[2017-02-12] MEDS: PANTOPRAZOLE SOD 40 MG DELAYED RELEASE TAB PO SCH (09:21)
[2017-02-12] MEDS: SODIUM CHLORIDE 0.9% FLUSH 5 ML FLUSH FLUSH SCH ×2 (09:22→20:16)
[2017-02-12] MEDS: MEGESTROL ACETATE SUSP 400 MG/10 ML CUP PO SCH (09:22)
[2017-02-12] MEDS: PHENYTOIN SUSP 100 MG/4 ML CUP PO SCH ×2 (09:22→20:16)
[2017-02-12] MEDS: FLUTICASONE PROPIONATE 50 MCG/ACT 16 GM NASAL SPRAY EACH NARE SCH (09:35)
--- NOTE | 2017-02-12 15:49 | HHI.PR ---
Subjective Remarks On 3LNC Had radiation today CXR improved aeration of LLL Breathing better No fever Occ cough with Sputum. Objective Vital Signs Vital Signs Date Time Temp Pulse Resp B/P Pulse Ox O2 Delivery O2 Flow Rate FiO2 02/12/17 15:41 108 02/12/17 12:00 99.6 108 18 105/67 97 02/12/17 10:54 Nasal Cannula 2.00 02/12/17 08:00 99.1 108 20 114/65 97 02/12/17 07:53 96 Nasal Cannula 2.00 02/12/17 04:00 99.4 111 16 96/54 92 02/12/17 00:00 98.5 108 16 108/67 98 02/11/17 21:40 96 Nasal Cannula 2.00 02/11/17 20:08 113 02/11/17 20:04 96 Nasal Cannula 2.00 02/11/17 20:00 98.7 109 17 111/67 96 02/11/17 16:18 98.5 105 20 106/68 98 I/O 02/11/17 02/11/17 02/11/17 02/12/17 02/12/17 02/12/17 07:00 15:00 23:00 07:00 15:00 23:00 Intake Total 240 ml 440 ml 240 ml Output Total 800 ml 330 ml 300 ml 450 ml 450 ml Balance -560 ml 110 ml -300 ml -450 ml -210 ml Intake Oral 240 ml 440 ml 240 ml Output Urine Total 800 ml 330 ml 300 ml 450 ml 450 ml # Bowel Movements 1 1 Objective Remarks GENERAL: Patient is lying in bed in NAD SKIN: Warm and dry. HEAD: Normocephalic. EYES: No scleral icterus. No injection or drainage. NECK: Supple, trachea midline. No JVD or lymphadenopathy. CARDIOVASCULAR: Regular rate and rhythm without murmurs, gallops, or rubs. RESPIRATORY: Breath sounds equal bilaterally. No accessory muscle use. GASTROINTESTINAL: Abdomen soft, non-tender, nondistended. MUSCULOSKELETAL: No cyanosis, or edema. BACK: Nontender without obvious deformity. No CVA tenderness. Neuro: Awake and alert A/P Assessment and Plan 1)Resp Insiff 2)Opacification of left hemithorax -Improved 3)Squamous cell ca involving left main stem s/p endobronchial stent placement s/p XTR 4)s/p Hemoptysis 5)ARF 5)Anemia 6)Leukocytosis 7)HTN 8)UTI Plan Continue with oxygen keep sat >92% Bronchodilators (DuoNeb) S/p stent placement in the left main bronchus at [facility]. Monitor renal function, , Supplement 02 to keep sat >90% Aerosol nebs Works with PT Monitor H/H Improving left lung aeration. Valeriy Wilkins MD February 12, 2017 15:49
[2017-02-12] MEDS: DOXAZOSIN MESYLATE 4 MG TAB PO SCH (20:16)
[2017-02-12] MEDS: ATORVASTATIN 40 MG TAB PO SCH (20:17)
[2017-02-12] MEDS: DOCUSATE SODIUM 50 MG/SENNA 8.6 MG TAB PO PRN (20:19)
[2017-02-13] VITALS (9 sets, daily range): BP systolic 101–124; BP diastolic 62–75; PULSE 100–118; RESP 17–20; TEMP 97.3–99.4; O2SAT 96–99
[2017-02-13] MEDS: cloNIDine HCL 0.1 MG TAB PO SCH ×3 (06:00→21:51)
[2017-02-13] MEDS: MEGESTROL ACETATE SUSP 400 MG/10 ML CUP PO SCH (08:34)
[2017-02-13] MEDS: FERROUS SULFATE 300 MG /5ML UDC PO SCH (08:34)
[2017-02-13] MEDS: NIFEdipine 90 MG SUSTAINED RELEASE TAB PO SCH (08:35)
[2017-02-13] MEDS: PHENYTOIN SUSP 100 MG/4 ML CUP PO SCH ×2 (08:35→19:58)
[2017-02-13] MEDS: TAMSULOSIN HCL 0.4 MG CAP PO SCH (08:35)
[2017-02-13] MEDS: PANTOPRAZOLE SOD 40 MG DELAYED RELEASE TAB PO SCH (08:35)
[2017-02-13] MEDS: HEPARIN SODIUM - SQ 10,000 UNITS/ML VIAL SQ SCH ×2 (08:35→19:59)
[2017-02-13] MEDS: guaiFENesin E.R. 600 MG TAB PO SCH ×2 (08:35→19:58)
[2017-02-13] MEDS: FLUTICASONE PROPIONATE 50 MCG/ACT 16 GM NASAL SPRAY EACH NARE SCH (08:36)
[2017-02-13] MEDS: SODIUM CHLORIDE 0.9% FLUSH 5 ML FLUSH FLUSH SCH ×2 (08:36→19:57)
--- NOTE | 2017-02-13 08:59 | HHI.PR ---
Subjective Remarks Patient reports is feeling okay. No increased in shortness of breath or chest discomfort. On 2 L nasal cannula. Anxious to finish with radiation so he can leave the hospital. Objective Vitals Vital Signs Date Time Temp Pulse Resp B/P Pulse Ox O2 Delivery O2 Flow Rate FiO2 02/13/17 08:00 98.2 100 18 119/72 99 02/13/17 04:00 99.0 118 17 105/62 96 02/13/17 00:00 99.1 110 17 112/66 97 02/12/17 20:16 98 Nasal Cannula 2.00 02/12/17 20:04 112 02/12/17 20:00 100.1 114 18 119/74 99 02/12/17 16:00 98.6 105 18 101/67 96 02/12/17 15:41 108 02/12/17 12:00 99.6 108 18 105/67 97 02/12/17 10:54 Nasal Cannula 2.00 I/O 02/12/17 02/12/17 02/12/17 02/13/17 02/13/17 02/13/17 07:00 15:00 23:00 07:00 15:00 23:00 Intake Total 720 ml Output Total 450 ml 650 ml 150 ml 700 ml 200 ml Balance -450 ml 70 ml -150 ml -700 ml -200 ml Intake Oral 720 ml Output Urine Total 450 ml 650 ml 150 ml 700 ml 200 ml # Voids 1 # Bowel Movements 1 Imaging Last Impressions Chest X-Ray 02/12/17 0600 Signed Impressions: Service Date/Time: Sunday, February 12, 2017 07:35 - CONCLUSION: Improving left upper lobe density. Chalo Hamlin MD Abdomen X-Ray 01/30/17 0000 Signed Impressions: Service Date/Time: January 10:55 - CONCLUSION: 1. No evidence for leakage or obstruction after injection of gastrostomy tube. Ken Crandall MD Central Venous Line 01/14/17 1150 Signed Impressions: Service Date/Time: Saturday, January 14, 2017 11:50 - CONCLUSION: Uncomplicated Permcath removal. Beto Perry MD Lower Extremity Ultrasound 01/06/17 0000 Signed Impressions: Service Date/Time: Friday, January 06, 2017 09:02 - CONCLUSION: Normal examination. Shawn Reyes MD Upper Extremity Ultrasound 12/11/16 1506 Signed Impressions: Service Date/Time: Sunday, December 11, 2016 18:00 - CONCLUSION: Superficial thrombophlebitis, extensive edema and nonspecific fluid collections in the subcutaneous tissues. Shawn Reyes MD Head CT 12/11/16 0000 Signed Impressions: Service Date/Time: Sunday, December 11, 2016 20:00 - CONCLUSION: Slight atrophic and small vessel ischemic changes without any evidence for acute hemorrhage or mass effect. Shawn Reyes MD Renal Ultrasound 12/09/16 0000 Signed Impressions: Service Date/Time: Friday, December 09, 2016 15:16 - CONCLUSION: 1. 8.4 cm mass lesion at the base of the bladder. This may represent an intrinsic mass of the bladder versus a prominent anterior lobe of the prostate. 2. Otherwise, urinary bladder is partially decompressed with a Lipscomb catheter. 3. Both kidneys are sonographically normal. Roby Horta MD Objective Remarks GENERAL: Patient is frail. In no acute distress. CARDIOVASCULAR: Regular rate and rhythm without murmurs, gallops, or rubs. RESPIRATORY: Clear to auscultation. Breath sounds equal bilaterally. No wheezes , rales, or rhonchi. GASTROINTESTINAL: Abdomen soft, non-tender, nondistended. Normal active bowel sounds MUSCULOSKELETAL: Extremities without clubbing, cyanosis, or edema. NEURO: Alert & Oriented x4 to person, place, time, situation. Moves all ext x4 Procedures 12/11- EGD- esophagitis, gastritis, duodenitis PEG placement Date of Insertion: January 24, 2017 A/P Problem List: (1) Bronchiolar obstruction ICD Code: J98.09 Status: Acute (2) Mass of left lung ICD Code: R91.8 Status: Acute (3) Squamous cell lung cancer ICD Code: C34.90 Status: Acute (4) Severe muscle deconditioning ICD Code: R29.898 Status: Acute (5) Anemia ICD Code: D64.9 Status: Acute (6) Acute respiratory failure ICD Code: J96.00 Status: Acute (7) Hemoptysis ICD Code: R04.2 Status: Acute (8) Hypoxia ICD Code: R09.02 Status: Acute Assessment and Plan 71 Y/O male with: Respiratory failure/Left bronchial mass: Patient was at [facility]. He underwent bronchoscopy with debulking of a large mass involving the left mainstem bronchus The left main bronchus was stented. The hemoptysis was controlled and he was eventually extubated. - Patient undergoing radiation. Setback on 01/13. Went into respiratory distress. Patient decided to change to DNR status. He was considering hospice. ongoing discussion with his son. Appreciate palliative care assisting. Patient resumed radiation. Wish to remain DNR. Patient planning to finished with radiation and then go home, probably with hospice. [facility] will be moving to [place] - O2 supplementation. - Pain control Acute renal failure Renal function stabilizing. Permacath removed. Nephrology signed off. Patient with anemia HGB 6.6 on 12/06/16. FOBT positive, consult GI, appreciate recommendations. HGB 12/07/16 of 8.7. Monitor and transfuse as need. Nestor count. Per GI will hold EGD/colonoscopy for now, might be a candidate for PEG tube megace for appetite enhancing Bladder mass: Flexible cystocope revealed a benign extension of the prostate - Urology followed the patient. Physical deconditioning: Secondary to comorbid conditions above. High risk for continuing decline. - Encourage oral intake. - PT as tolerated. HTN- Continue atenolol 25 mg po bid BPH continue doxazosin 8 mg qhs Seizure- Continue Dilantin. Seizure precautions. Stable. Physical deconditioning conditioning. PT consult DVT ppx with SCD/TEDs PT/OT/ ST Discharge Planning Continue radiation Problem Qualifiers (1) Squamous cell lung cancer: Qualified Code: C34.92 - Squamous cell lung cancer, left Suzy Castillo MD February 13, 2017 08:58
--- NOTE | 2017-02-13 18:43 | HHI.PR ---
Subjective Remarks On 3LNC Had radiation today CXR improved aeration of LLL Breathing better No fever Objective Vital Signs Vital Signs Date Time Temp Pulse Resp B/P Pulse Ox O2 Delivery O2 Flow Rate FiO2 02/13/17 16:00 99.4 112 18 115/71 99 02/13/17 12:00 99.2 108 18 124/75 97 02/13/17 09:39 Nasal Cannula 2.00 21 02/13/17 09:35 97 Nasal Cannula 2.00 02/13/17 08:00 98.2 100 18 119/72 99 02/13/17 04:00 99.0 118 17 105/62 96 02/13/17 00:00 99.1 110 17 112/66 97 02/12/17 20:16 98 Nasal Cannula 2.00 02/12/17 20:04 112 02/12/17 20:00 100.1 114 18 119/74 99 I/O 02/12/17 02/12/17 02/12/17 02/13/17 02/13/17 02/13/17 07:00 15:00 23:00 07:00 15:00 23:00 Intake Total 720 ml 600 ml 120 ml Output Total 450 ml 650 ml 150 ml 700 ml 300 ml 100 ml Balance -450 ml 70 ml -150 ml -700 ml 300 ml 20 ml Intake Oral 720 ml 600 ml 120 ml Output Urine Total 450 ml 650 ml 150 ml 700 ml 300 ml 100 ml # Voids 2 # Bowel Movements 1 Objective Remarks GENERAL: Patient is lying in bed in NAD SKIN: Warm and dry. HEAD: Normocephalic. EYES: No scleral icterus. No injection or drainage. NECK: Supple, trachea midline. No JVD or lymphadenopathy. CARDIOVASCULAR: Regular rate and rhythm without murmurs, gallops, or rubs. RESPIRATORY: Breath sounds equal bilaterally. No accessory muscle use. GASTROINTESTINAL: Abdomen soft, non-tender, nondistended. MUSCULOSKELETAL: No cyanosis, or edema. BACK: Nontender without obvious deformity. No CVA tenderness. Neuro: Awake and alert A/P Assessment and Plan 1)Resp Insiff 2)Opacification of left hemithorax -Improved 3)Squamous cell ca involving left main stem s/p endobronchial stent placement s/p XTR 4)s/p Hemoptysis 5)ARF 5)Anemia 6)Leukocytosis 7)HTN 8)UTI Plan Continue with oxygen keep sat >92% Bronchodilators (DuoNeb) S/p stent placement in the left main bronchus at [facility]. Supplement 02 to keep sat >90% Aerosol nebs Works with PT Improving left lung aeration. Valeriy Wilkins MD February 13, 2017 18:43
[2017-02-13] MEDS: DOXAZOSIN MESYLATE 4 MG TAB PO SCH (19:57)
[2017-02-13] MEDS: ATORVASTATIN 40 MG TAB PO SCH (19:58)
[2017-02-14] VITALS (9 sets, daily range): BP systolic 86–120; BP diastolic 60–70; PULSE 98–116; RESP 18–20; TEMP 97.4–98.7; O2SAT 93–99
[2017-02-14] MEDS: cloNIDine HCL 0.1 MG TAB PO SCH ×3 (05:22→22:00)
[2017-02-14] MEDS: MAGNESIUM HYDROXIDE SUSP 30 ML CUP PO PRN (05:54)
[2017-02-14] MEDS: PHENYTOIN SUSP 100 MG/4 ML CUP PO SCH ×2 (08:44→19:52)
[2017-02-14] MEDS: MEGESTROL ACETATE SUSP 400 MG/10 ML CUP PO SCH (08:44)
[2017-02-14] MEDS: NIFEdipine 90 MG SUSTAINED RELEASE TAB PO SCH (08:45)
[2017-02-14] MEDS: FLUTICASONE PROPIONATE 50 MCG/ACT 16 GM NASAL SPRAY EACH NARE SCH (08:45)
[2017-02-14] MEDS: PANTOPRAZOLE SOD 40 MG DELAYED RELEASE TAB PO SCH (08:45)
[2017-02-14] MEDS: TAMSULOSIN HCL 0.4 MG CAP PO SCH (08:45)
[2017-02-14] MEDS: HEPARIN SODIUM - SQ 10,000 UNITS/ML VIAL SQ SCH ×2 (08:45→19:52)
[2017-02-14] MEDS: SODIUM CHLORIDE 0.9% FLUSH 5 ML FLUSH FLUSH SCH ×2 (08:45→19:52)
[2017-02-14] MEDS: guaiFENesin E.R. 600 MG TAB PO SCH ×2 (08:45→19:51)
[2017-02-14] MEDS: FERROUS SULFATE 300 MG /5ML UDC PO SCH (08:45)
[2017-02-14 09:50] LABS: HEMATOCRIT 25.1 % (39.0-51.0); MEAN CELL VOLUME 85.2 FL (80.0-100.0); MEAN CORPUSCULAR HEMOGLOBIN 27.4 PG (27.0-34.0); MEAN CORPUSCULAR HGB CONC 32.1 % (32.0-36.0); PLATELET COUNT 356 TH/MM3 (150-450); RED BLOOD COUNT 2.94 MIL/MM3 (4.50-5.90); REVIEW FLAG FINAL; WHITE BLOOD COUNT 6.7 TH/MM3 (4.0-11.0)
[2017-02-14 10:16] LABS: BICARBONATE 25.1 MEQ/L (21.0-32.0); POTASSIUM 4.9 MEQ/L (3.5-5.1)
--- NOTE | 2017-02-14 14:58 | HHI.PR ---
Subjective Remarks Follow up for orthostatic hypotension/dizziness. Patient seen and examined. Resting comfortably in bed. Denies any new acute complaints. Tolerating PO intake, states he enjoys the Glucerna supplements. Denies any recent fever, chills, shortness of breath, chest pain, abdominal pain, n/v or dysuria. Objective Vitals Vital Signs Date Time Temp Pulse Resp B/P Pulse Ox O2 Delivery O2 Flow Rate FiO2 02/14/17 12:00 97.5 99 20 103/61 93 02/14/17 08:41 Nasal Cannula 2.00 21 02/14/17 08:00 98.3 105 20 86/61 99 87/60 02/14/17 07:55 97 Nasal Cannula 2.00 02/14/17 05:24 110/70 02/14/17 04:00 98.3 109 18 100/61 98 02/14/17 00:00 97.7 110 18 105/67 99 02/13/17 21:00 112 02/13/17 21:00 99 Nasal Cannula 2.00 21 02/13/17 20:00 97.3 117 20 101/66 99 02/13/17 19:33 98 Nasal Cannula 2.00 02/13/17 16:00 99.4 112 18 115/71 99 I/O 02/13/17 02/13/17 02/13/17 02/14/17 02/14/17 02/14/17 07:00 15:00 23:00 07:00 15:00 23:00 Intake Total 600 ml 360 ml 240 ml Output Total 700 ml 300 ml 750 ml 500 ml Balance -700 ml 300 ml -390 ml -260 ml Intake Oral 600 ml 360 ml 240 ml Output Urine Total 700 ml 300 ml 750 ml 500 ml # Voids 2 # Bowel Movements 1 1 Result Diagram: 02/14/17 0856 02/14/17 0856 Imaging Last Impressions Chest X-Ray 02/12/17 0600 Signed Impressions: Service Date/Time: Sunday, February 12, 2017 07:35 - CONCLUSION: Improving left upper lobe density. Chalo Hamlin MD Abdomen X-Ray 01/30/17 0000 Signed Impressions: Service Date/Time: January 10:55 - CONCLUSION: 1. No evidence for leakage or obstruction after injection of gastrostomy tube. Ken Crandall MD Central Venous Line 01/14/17 1150 Signed Impressions: Service Date/Time: Saturday, January 14, 2017 11:50 - CONCLUSION: Uncomplicated Permcath removal. Beto Perry MD Lower Extremity Ultrasound 01/06/17 0000 Signed Impressions: Service Date/Time: Friday, January 06, 2017 09:02 - CONCLUSION: Normal examination. Shawn Reyes MD Upper Extremity Ultrasound 12/11/16 1506 Signed Impressions: Service Date/Time: Sunday, December 11, 2016 18:00 - CONCLUSION: Superficial thrombophlebitis, extensive edema and nonspecific fluid collections in the subcutaneous tissues. Shawn Reeys MD Head CT 12/11/16 0000 Signed Impressions: Service Date/Time: Sunday, December 11, 2016 20:00 - CONCLUSION: Slight atrophic and small vessel ischemic changes without any evidence for acute hemorrhage or mass effect. Shawn Reyes MD Renal Ultrasound 12/09/16 0000 Signed Impressions: Service Date/Time: Friday, December 09, 2016 15:16 - CONCLUSION: 1. 8.4 cm mass lesion at the base of the bladder. This may represent an intrinsic mass of the bladder versus a prominent anterior lobe of the prostate. 2. Otherwise, urinary bladder is partially decompressed with a Lipscomb catheter. 3. Both kidneys are sonographically normal. Roby Horta MD Objective Remarks GENERAL: Well-nourished, well-developed pleasant male patient in [facility]. SKIN: Warm and dry. No rash. HEENT: Normocephalic. Atraumatic. Pupils equal and round. Mucous membranes pink and moist. NECK: Supple. Trachea midline. CARDIOVASCULAR: Regular rate and rhythm. S1, S2 noted. No murmur appreciated. RESPIRATORY: No accessory muscle use. Clear to auscultation. Breath sounds equal bilaterally. GASTROINTESTINAL: Abdomen soft, non-tender, nondistended. Normoactive bowel sounds x4. MUSCULOSKELETAL: No obvious deformities. Extremities without clubbing, cyanosis , or edema. NEUROLOGICAL: Awake and alert. No obvious cranial nerve deficits. Motor grossly within normal limits. Normal speech. PSYCHIATRIC: Appropriate mood and affect; insight and judgment normal. Procedures 12/11- EGD- esophagitis, gastritis, duodenitis PEG placement Date of Insertion: January 24, 2017 A/P Problem List: (1) Bronchiolar obstruction ICD Code: J98.09 Status: Acute (2) Mass of left lung ICD Code: R91.8 Status: Acute (3) Squamous cell lung cancer ICD Code: C34.90 Status: Acute (4) Severe muscle deconditioning ICD Code: R29.898 Status: Acute (5) Anemia ICD Code: D64.9 Status: Acute (6) Acute respiratory failure ICD Code: J96.00 Status: Acute (7) Hemoptysis ICD Code: R04.2 Status: Acute (8) Hypoxia ICD Code: R09.02 Status: Acute Assessment and Plan 71 Y/O male with: Respiratory failure/Left bronchial mass: Patient was at [facility]. He underwent bronchoscopy with debulking of a large mass involving the left mainstem bronchus The left main bronchus was stented. The hemoptysis was controlled and he was eventually extubated. - Patient undergoing radiation. Setback on 01/13. Went into respiratory distress. Patient decided to change to DNR status. He was considering hospice. ongoing discussion with his son. Appreciate palliative care assisting. Patient resumed radiation. Wish to remain DNR. Patient planning to finished with radiation and then go home, probably with hospice. [facility] will be moving to [place] - O2 supplementation. - Pain control Acute renal failure Renal function stabilizing. Permacath removed. Nephrology signed off. Patient with anemia HGB 6.6 on 12/06/16. FOBT positive, consult GI, appreciate recommendations. HGB 12/07/16 of 8.7. Monitor and transfuse as need. Nestor count. Per GI will hold EGD/colonoscopy for now, might be a candidate for PEG tube megace for appetite enhancing Bladder mass: Flexible cystocope revealed a benign extension of the prostate - Urology followed the patient. Physical deconditioning: Secondary to comorbid conditions above. High risk for continuing decline. - Encourage oral intake. - PT as tolerated. HTN- Continue atenolol 25 mg po bid BPH continue doxazosin 8 mg qhs Seizure- Continue Dilantin. Seizure precautions. Stable. Physical deconditioning conditioning. PT consult DVT ppx with SCD/TEDs PT/OT/ ST Discharge Planning Continue radiation. Problem Qualifiers (1) Squamous cell lung cancer: Qualified Code: C34.92 - Squamous cell lung cancer, left Kaiden,Amada PATIENT SUPPORT REPRESENTATIVE February 14, 2017 14:58 Amada Richey February 14, 2017 14:58
--- NOTE | 2017-02-14 17:04 | HHI.PR ---
Subjective Remarks On 3LNC Had radiation today CXR improved aeration of LLL Breathing better No fever no new complaint Objective Vital Signs Vital Signs Date Time Temp Pulse Resp B/P Pulse Ox O2 Delivery O2 Flow Rate FiO2 02/14/17 12:00 97.5 99 20 103/61 93 02/14/17 08:41 Nasal Cannula 2.00 21 02/14/17 08:00 98.3 105 20 86/61 99 87/60 02/14/17 07:55 97 Nasal Cannula 2.00 02/14/17 05:24 110/70 02/14/17 04:00 98.3 109 18 100/61 98 02/14/17 00:00 97.7 110 18 105/67 99 02/13/17 21:00 112 02/13/17 21:00 99 Nasal Cannula 2.00 21 02/13/17 20:00 97.3 117 20 101/66 99 02/13/17 19:33 98 Nasal Cannula 2.00 I/O 02/13/17 02/13/17 02/13/17 02/14/17 02/14/17 02/14/17 07:00 15:00 23:00 07:00 15:00 23:00 Intake Total 600 ml 360 ml 240 ml Output Total 700 ml 300 ml 750 ml 500 ml Balance -700 ml 300 ml -390 ml -260 ml Intake Oral 600 ml 360 ml 240 ml Output Urine Total 700 ml 300 ml 750 ml 500 ml # Voids 2 # Bowel Movements 1 1 Result Diagram: 02/14/17 0856 02/14/17 0856 Objective Remarks GENERAL: Patient is lying in bed in NAD SKIN: Warm and dry. HEAD: Normocephalic. EYES: No scleral icterus. No injection or drainage. NECK: Supple, trachea midline. No JVD or lymphadenopathy. CARDIOVASCULAR: Regular rate and rhythm without murmurs, gallops, or rubs. RESPIRATORY: Breath sounds equal bilaterally. No accessory muscle use. GASTROINTESTINAL: Abdomen soft, non-tender, nondistended. MUSCULOSKELETAL: No cyanosis, or edema. BACK: Nontender without obvious deformity. No CVA tenderness. 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 Supplement 02 to keep sat >90% Aerosol nebs Works with PT Valeriy Wilkins MD February 14, 2017 17:04
[2017-02-14] MEDS: ATORVASTATIN 40 MG TAB PO SCH (19:51)
[2017-02-14] MEDS: DOXAZOSIN MESYLATE 4 MG TAB PO SCH (19:51)
[2017-02-15] VITALS (10 sets, daily range): BP systolic 108–123; BP diastolic 65–76; PULSE 85–117; RESP 15–24; TEMP 97–99.2; O2SAT 95–100
[2017-02-15] MEDS: cloNIDine HCL 0.1 MG TAB PO SCH ×3 (05:19→21:53)
[2017-02-15] MEDS: SODIUM CHLORIDE 0.9% FLUSH 5 ML FLUSH FLUSH SCH ×2 (09:00→20:05)
[2017-02-15] MEDS: FLUTICASONE PROPIONATE 50 MCG/ACT 16 GM NASAL SPRAY EACH NARE SCH (09:00)
--- NOTE | 2017-02-15 09:19 | HHI.PR ---
Subjective Remarks Patient reports he is feeling okay today. Stable on nasal cannula. Appetite is fair. Tolerating shakes supplements. Objective Vitals Vital Signs Date Time Temp Pulse Resp B/P Pulse Ox O2 Delivery O2 Flow Rate FiO2 02/15/17 08:00 98.7 108 18 123/76 98 02/15/17 04:00 97.6 112 18 117/70 98 02/15/17 00:00 97.2 109 18 112/65 99 02/14/17 21:00 99 Nasal Cannula 2.00 21 02/14/17 21:00 109 02/14/17 20:00 97.4 116 18 112/61 99 02/14/17 16:00 98.7 98 20 120/64 99 02/14/17 12:00 97.5 99 20 103/61 93 I/O 02/14/17 02/14/17 02/14/17 02/15/17 02/15/17 02/15/17 06:59 14:59 22:59 06:59 14:59 22:59 Intake Total 240 ml 480 ml 720 ml Output Total 600 ml 400 ml 200 ml 800 ml Balance -360 ml 80 ml -200 ml -80 ml Intake Oral 240 ml 480 ml 720 ml Output Urine Total 600 ml 400 ml 200 ml 800 ml # Bowel Movements 1 1 Result Diagram: 02/14/1756 02/14/1756 Objective Remarks GENERAL: Patient is frail. In no acute distress. CARDIOVASCULAR: Regular rate and rhythm without murmurs, gallops, or rubs. RESPIRATORY: Clear to auscultation. Breath sounds equal bilaterally. No wheezes , rales, or rhonchi. GASTROINTESTINAL: Abdomen soft, non-tender, nondistended. Normal active bowel sounds MUSCULOSKELETAL: Extremities without clubbing, cyanosis, or edema. NEURO: Alert & Oriented. Moves all ext x4. Normal speech Procedures 12/11- EGD- esophagitis, gastritis, duodenitis PEG placement Date of Insertion: January 24, 2017 A/P Problem List: (1) Bronchiolar obstruction ICD Code: J98.09 Status: Acute (2) Mass of left lung ICD Code: R91.8 Status: Acute (3) Squamous cell lung cancer ICD Code: C34.90 Status: Acute (4) Severe muscle deconditioning ICD Code: R29.898 Status: Acute (5) Anemia ICD Code: D64.9 Status: Acute (6) Acute respiratory failure ICD Code: J96.00 Status: Acute (7) Hemoptysis ICD Code: R04.2 Status: Acute (8) Hypoxia ICD Code: R09.02 Status: Acute Assessment and Plan 71 Y/O male with: Respiratory failure/Left bronchial mass: Patient was at [facility]. He underwent bronchoscopy with debulking of a large mass involving the left mainstem bronchus The left main bronchus was stented. The hemoptysis was controlled and he was eventually extubated. - Patient undergoing radiation. Setback on 01/13. Went into respiratory distress. Patient decided to change to DNR status. He was considering hospice. ongoing discussion with his son. Appreciate palliative care assisting. Patient resumed radiation. Wish to remain DNR. Patient planning to finished with radiation and then go home, probably with hospice. [facility] will be moving to [place] - O2 supplementation. Currently stable. - Pain control Acute renal failure Renal function stabilized. Permacath removed. Nephrology signed off. Patient with anemia HGB 6.6 on 12/06/16. FOBT positive, consult GI, appreciate recommendations. HGB 12/07/16 of 8.7. Monitor and transfuse as need. Nestor count. Per GI will hold EGD/colonoscopy for now, might be a candidate for PEG tube Megace to help with appetite. 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 Physical deconditioning: Secondary to comorbid conditions above. High risk for continuing decline. - Encourage oral intake. - PT as tolerated. HTN- Continue atenolol 25 mg po bid BPH continue doxazosin 8 mg qhs Seizure- Continue Dilantin. Seizure precautions. Stable. Physical deconditioning conditioning. PT consult DVT ppx with SCD/TEDs Discharge Planning Continue radiation Problem Qualifiers (1) Squamous cell lung cancer: Qualified Code: C34.92 - Squamous cell lung cancer, left Suzy Castillo MD February 15, 2017 09:19
[2017-02-15] MEDS: PHENYTOIN SUSP 100 MG/4 ML CUP PO SCH ×2 (10:40→20:05)
[2017-02-15] MEDS: guaiFENesin E.R. 600 MG TAB PO SCH ×2 (10:40→20:05)
[2017-02-15] MEDS: PANTOPRAZOLE SOD 40 MG DELAYED RELEASE TAB PO SCH (10:40)
[2017-02-15] MEDS: MEGESTROL ACETATE SUSP 400 MG/10 ML CUP PO SCH (10:40)
[2017-02-15] MEDS: FERROUS SULFATE 300 MG /5ML UDC PO SCH (10:40)
[2017-02-15] MEDS: TAMSULOSIN HCL 0.4 MG CAP PO SCH (10:41)
[2017-02-15] MEDS: HEPARIN SODIUM - SQ 10,000 UNITS/ML VIAL SQ SCH ×2 (10:41→20:12)
[2017-02-15] MEDS: NIFEdipine 90 MG SUSTAINED RELEASE TAB PO SCH (10:44)
[2017-02-15] MEDS: MORPHINE SULFATE 4 MG/ML INJ IV PUSH PRN (10:50)
--- NOTE | 2017-02-15 16:15 | HHI.PR ---
Subjective Remarks On 3LNC CXR improved aeration of LLL Breathing better No fever no new complaint Objective Vital Signs Vital Signs Date Time Temp Pulse Resp B/P Pulse Ox O2 Delivery O2 Flow Rate FiO2 02/15/17 13:00 97.0 113 18 119/72 96 02/15/17 12:00 98.2 99 16 108/69 100 02/15/17 10:22 97 Nasal Cannula 2.00 02/15/17 08:00 98.7 108 18 123/76 98 02/15/17 08:00 Nasal Cannula 2.00 02/15/17 04:00 97.6 112 18 117/70 98 02/15/17 00:00 97.2 109 18 112/65 99 02/14/17 21:00 99 Nasal Cannula 2.00 21 02/14/17 21:00 109 02/14/17 20:00 97.4 116 18 112/61 99 I/O 02/14/17 02/14/17 02/14/17 02/15/17 02/15/17 02/15/17 07:00 15:00 23:00 07:00 15:00 23:00 Intake Total 240 ml 480 ml 720 ml 360 ml Output Total 500 ml 400 ml 200 ml 800 ml 900 ml Balance -260 ml 80 ml -200 ml -80 ml -540 ml Intake Oral 240 ml 480 ml 720 ml 360 ml Output Urine Total 500 ml 400 ml 200 ml 800 ml 900 ml # Bowel Movements 1 1 2 Result Diagram: 02/14/17 0856 02/14/17 0856 Objective Remarks GENERAL: Patient is lying in bed in NAD SKIN: Warm and dry. HEAD: Normocephalic. EYES: No scleral icterus. No injection or drainage. NECK: Supple, trachea midline. No JVD or lymphadenopathy. CARDIOVASCULAR: Regular rate and rhythm without murmurs, gallops, or rubs. RESPIRATORY: Breath sounds equal bilaterally. No accessory muscle use. GASTROINTESTINAL: Abdomen soft, non-tender, nondistended. MUSCULOSKELETAL: No cyanosis, or edema. BACK: Nontender without obvious deformity. No CVA tenderness. 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 Supplement 02 to keep sat >90% Aerosol Valeriy Penny MD February 15, 2017 16:15
[2017-02-15] MEDS: ATORVASTATIN 40 MG TAB PO SCH (20:05)
[2017-02-15] MEDS: DOXAZOSIN MESYLATE 4 MG TAB PO SCH (20:05)
[2017-02-16] VITALS (9 sets, daily range): BP systolic 100–121; BP diastolic 64–75; PULSE 103–123; RESP 15–19; TEMP 95.9–98.8; O2SAT 95–97
[2017-02-16] MEDS: cloNIDine HCL 0.1 MG TAB PO SCH ×3 (05:37→21:05)
[2017-02-16] MEDS: FERROUS SULFATE 300 MG /5ML UDC PO SCH (07:47)
[2017-02-16] MEDS: PHENYTOIN SUSP 100 MG/4 ML CUP PO SCH ×2 (07:47→21:06)
[2017-02-16] MEDS: HEPARIN SODIUM - SQ 10,000 UNITS/ML VIAL SQ SCH ×2 (07:48→21:06)
[2017-02-16] MEDS: guaiFENesin E.R. 600 MG TAB PO SCH ×2 (07:48→21:05)
[2017-02-16] MEDS: MEGESTROL ACETATE SUSP 400 MG/10 ML CUP PO SCH (07:48)
[2017-02-16] MEDS: NIFEdipine 90 MG SUSTAINED RELEASE TAB PO SCH (07:48)
[2017-02-16] MEDS: SODIUM CHLORIDE 0.9% FLUSH 5 ML FLUSH FLUSH SCH ×2 (07:48→21:06)
[2017-02-16] MEDS: TAMSULOSIN HCL 0.4 MG CAP PO SCH (07:48)
[2017-02-16] MEDS: PANTOPRAZOLE SOD 40 MG DELAYED RELEASE TAB PO SCH (07:48)
[2017-02-16] MEDS: FLUTICASONE PROPIONATE 50 MCG/ACT 16 GM NASAL SPRAY EACH NARE SCH (07:49)
--- NOTE | 2017-02-16 08:35 | HHI.PR ---
Subjective Remarks No acute events overnight. Patient with no complaints this morning. He is currently off oxygen and satting well. Tolerating overnight tube feeds. Objective Vitals Vital Signs Date Time Temp Pulse Resp B/P Pulse Ox O2 Delivery O2 Flow Rate FiO2 02/16/17 08:04 95 Nasal Cannula 2.00 02/16/17 08:00 95.9 103 16 109/70 96 02/16/17 08:00 Room Air 02/16/17 04:00 98.5 123 16 115/75 95 02/16/17 00:00 98.8 123 17 100/64 96 02/15/17 21:00 95 Nasal Cannula 2.00 21 02/15/17 21:00 117 02/15/17 20:00 99.2 116 17 111/69 95 02/15/17 17:49 98 Nasal Cannula 2.00 02/15/17 16:00 98.8 109 15 121/67 96 02/15/17 16:00 97.6 85 24 98 02/15/17 13:00 97.0 113 18 119/72 96 02/15/17 12:00 98.2 99 16 108/69 100 02/15/17 10:22 97 Nasal Cannula 2.00 I/O 02/15/17 02/15/17 02/15/17 02/16/17 02/16/17 02/16/17 07:00 15:00 23:00 07:00 15:00 23:00 Intake Total 720 ml 360 ml 480 ml 240 ml Output Total 800 ml 900 ml 400 ml 1100 ml Balance -80 ml -540 ml 80 ml -860 ml Intake Oral 720 ml 360 ml 480 ml 240 ml Output Urine Total 800 ml 900 ml 400 ml 1100 ml # Bowel Movements 2 0 Result Diagram: 02/14/1756 02/14/17 0856 Objective Remarks GENERAL: Patient is frail. In no acute distress. CARDIOVASCULAR: Regular rate and rhythm without murmurs, gallops, or rubs. RESPIRATORY: Clear to auscultation. Breath sounds equal bilaterally. No wheezes , rales, or rhonchi. GASTROINTESTINAL: Abdomen soft, non-tender, nondistended. Normal active bowel sounds MUSCULOSKELETAL: Extremities without clubbing, cyanosis, or edema. NEURO: Alert & Oriented. Moves all ext x4. Normal speech Procedures 12/11- EGD- esophagitis, gastritis, duodenitis PEG placement Date of Insertion: January 24, 2017 A/P Problem List: (1) Bronchiolar obstruction ICD Code: J98.09 Status: Acute (2) Mass of left lung ICD Code: R91.8 Status: Acute (3) Squamous cell lung cancer ICD Code: C34.90 Status: Acute (4) Severe muscle deconditioning ICD Code: R29.898 Status: Acute (5) Anemia ICD Code: D64.9 Status: Acute (6) Acute respiratory failure ICD Code: J96.00 Status: Acute (7) Hemoptysis ICD Code: R04.2 Status: Acute (8) Hypoxia ICD Code: R09.02 Status: Acute Assessment and Plan 71 Y/O male with: Respiratory failure/Left bronchial mass: Patient was at [facility]. He underwent bronchoscopy with debulking of a large mass involving the left mainstem bronchus The left main bronchus was stented. The hemoptysis was controlled and he was eventually extubated. - Patient undergoing radiation. Setback on 01/13. Went into respiratory distress. Patient decided to change to DNR status. He was considering hospice. ongoing discussion with his son. Appreciate palliative care assisting. Patient resumed radiation. Wish to remain DNR. Patient planning to finished with radiation and then go home, probably with hospice. [facility] will be moving to [place] - O2 supplementation. Currently stable without O2. - Pain control Acute renal failure Renal function stabilized. Permacath removed. Nephrology signed off. Patient with anemia HGB 6.6 on 12/06/16. FOBT positive, consult GI, appreciate recommendations. HGB 12/07/16 of 8.7. Monitor and transfuse as need. Nestor count. Per GI will hold EGD/colonoscopy for now, PEG placed with overnight TFs Megace to help with appetite. 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 Physical deconditioning: Secondary to comorbid conditions above. High risk for continuing decline. - Encourage oral intake. - PT as tolerated. HTN- Continue atenolol 25 mg po bid BPH continue doxazosin 8 mg qhs Seizure- Continue Dilantin. Seizure precautions. Stable. Physical deconditioning conditioning. PT consult DVT ppx with SCD/TEDs Problem Qualifiers (1) Squamous cell lung cancer: Qualified Code: C34.92 - Squamous cell lung cancer, left (2) Anemia: Kimberly Rogel MD R3 February 16, 2017 08:35
--- NOTE | 2017-02-16 19:09 | HHI.PR ---
Subjective Remarks On 3LNC CXR improved aeration of LLL Breathing better No fever Objective Vital Signs Vital Signs Date Time Temp Pulse Resp B/P Pulse Ox O2 Delivery O2 Flow Rate FiO2 02/16/17 16:00 97.4 108 15 121/72 97 02/16/17 12:00 98.8 109 16 110/66 97 02/16/17 08:04 95 Nasal Cannula 2.00 02/16/17 08:00 95.9 103 16 109/70 96 02/16/17 08:00 Room Air 02/16/17 04:00 98.5 123 16 115/75 95 02/16/17 00:00 98.8 123 17 100/64 96 02/15/17 21:00 95 Nasal Cannula 2.00 21 02/15/17 21:00 117 02/15/17 20:00 99.2 116 17 111/69 95 I/O 02/15/17 02/15/17 02/15/17 02/16/17 02/16/17 02/16/17 07:00 15:00 23:00 07:00 15:00 23:00 Intake Total 720 ml 360 ml 480 ml 240 ml 720 ml Output Total 800 ml 900 ml 400 ml 1100 ml 1000 ml 225 ml Balance -80 ml -540 ml 80 ml -860 ml -280 ml -225 ml Intake Oral 720 ml 360 ml 480 ml 240 ml 720 ml Output Urine Total 800 ml 900 ml 400 ml 1100 ml 1000 ml 225 ml # Bowel Movements 2 0 2 Result Diagram: 02/14/1756 02/14/17855 Objective Remarks GENERAL: Patient is lying in bed in NAD SKIN: Warm and dry. HEAD: Normocephalic. EYES: No scleral icterus. No injection or drainage. NECK: Supple, trachea midline. No JVD or lymphadenopathy. CARDIOVASCULAR: Regular rate and rhythm without murmurs, gallops, or rubs. RESPIRATORY: Breath sounds equal bilaterally. No accessory muscle use. GASTROINTESTINAL: Abdomen soft, non-tender, nondistended. MUSCULOSKELETAL: No cyanosis, or edema. BACK: Nontender without obvious deformity. No CVA tenderness. 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 Supplement 02 to keep sat >90% Aerosol Valeriy Penny MD February 16, 2017 19:09
[2017-02-16] MEDS: DOXAZOSIN MESYLATE 4 MG TAB PO SCH (21:05)
[2017-02-16] MEDS: ATORVASTATIN 40 MG TAB PO SCH (21:05)
[2017-02-17] VITALS (7 sets, daily range): BP systolic 101–141; BP diastolic 61–72; PULSE 100–122; RESP 18–22; TEMP 97.1–98.8; O2SAT 93–97
[2017-02-17] MEDS: cloNIDine HCL 0.1 MG TAB PO SCH ×3 (05:35→20:30)
[2017-02-17 08:12] LABS: AUTOMATED NEUTROPHIL # 4.2 TH/MM3 (1.8-7.7); BASOPHIL # 0.1 TH/MM3 (0-0.2); BASOPHIL % 0.9 % (0.0-2.0); EOSINOPHIL # 0.5 TH/MM3 (0-0.4); HEMATOCRIT 25.3 % (39.0-51.0); HEMO FLAGS DIFF FINAL; LYMPH % 12.8 % (9.0-44.0); LYMPHOCYTE # 0.8 TH/MM3 (1.0-4.8); MEAN CELL VOLUME 84.9 FL (80.0-100.0); MEAN CORPUSCULAR HEMOGLOBIN 28.4 PG (27.0-34.0); MEAN CORPUSCULAR HGB CONC 33.4 % (32.0-36.0); MONO % 9.8 % (0.0-8.0); NEUT % 68.5 % (16.0-70.0); PLATELET COUNT 365 TH/MM3 (150-450); RED BLOOD COUNT 2.98 MIL/MM3 (4.50-5.90); RED CELL DISTRIBUTION WIDTH 16.1 % (11.6-17.2); WHITE BLOOD COUNT 6.1 TH/MM3 (4.0-11.0)
[2017-02-17 08:23] LABS: BICARBONATE 24.9 MEQ/L (21.0-32.0); POTASSIUM 4.7 MEQ/L (3.5-5.1)
[2017-02-17] MEDS: SODIUM CHLORIDE 0.9% FLUSH 5 ML FLUSH FLUSH SCH ×2 (09:00→20:30)
[2017-02-17] MEDS: FLUTICASONE PROPIONATE 50 MCG/ACT 16 GM NASAL SPRAY EACH NARE SCH (09:00)
[2017-02-17] MEDS: guaiFENesin E.R. 600 MG TAB PO SCH ×2 (09:18→20:30)
[2017-02-17] MEDS: PANTOPRAZOLE SOD 40 MG DELAYED RELEASE TAB PO SCH (09:18)
[2017-02-17] MEDS: NIFEdipine 90 MG SUSTAINED RELEASE TAB PO SCH (09:18)
[2017-02-17] MEDS: FERROUS SULFATE 300 MG /5ML UDC PO SCH (09:18)
[2017-02-17] MEDS: TAMSULOSIN HCL 0.4 MG CAP PO SCH (09:19)
[2017-02-17] MEDS: PHENYTOIN SUSP 100 MG/4 ML CUP PO SCH ×2 (09:19→20:29)
[2017-02-17] MEDS: MEGESTROL ACETATE SUSP 400 MG/10 ML CUP PO SCH (09:19)
[2017-02-17] MEDS: HEPARIN SODIUM - SQ 10,000 UNITS/ML VIAL SQ SCH ×2 (09:19→20:29)
--- NOTE | 2017-02-17 13:12 | HHI.PR ---
Subjective Remarks Follow up for lung cancer. Patient seen and examined; laying a bed. Denies any new acute complaints. He stated he is "breathing better" and is not requiring oxygen supplementation. He spoke of "having a week of radiation left and then I am done with it." Spoke of discharge plans of him going to [place]. Denies fever, chills, shortness of breath, chest pain, abdominal pain, n/v or dysuria. Objective Vitals Vital Signs Date Time Temp Pulse Resp B/P Pulse Ox O2 Delivery O2 Flow Rate FiO2 02/17/17 12:48 98.4 110 20 101/72 93 02/17/17 08:01 116 02/17/17 08:00 97.9 115 20 141/64 96 02/17/17 07:31 96 21 02/17/17 00:00 98.3 122 18 102/61 96 02/16/17 21:05 Room Air 02/16/17 20:27 97 Nasal Cannula 2.00 02/16/17 20:02 106 02/16/17 20:00 98.7 116 19 115/67 96 02/16/17 16:00 97.4 108 15 121/72 97 I/O 02/16/17 02/16/17 02/16/17 02/17/17 02/17/17 02/17/17 07:00 15:00 23:00 07:00 15:00 23:00 Intake Total 240 ml 720 ml 480 ml 240 ml 846 ml Output Total 1100 ml 1000 ml 1525 ml 860 ml Balance -860 ml -280 ml -1045 ml -620 ml 846 ml Intake Oral 240 ml 720 ml 480 ml 240 ml Tube Feeding 726 ml Other 120 ml Output Urine Total 1100 ml 1000 ml 1525 ml 860 ml # Bowel Movements 0 2 1 0 Result Diagram: 02/17/17 0629 02/17/17 0629 Imaging Last Impressions Chest X-Ray 02/12/17 0600 Signed Impressions: Service Date/Time: Sunday, February 12, 2017 07:35 - CONCLUSION: Improving left upper lobe density. Chalo Hamlin MD Abdomen X-Ray 01/30/17 0000 Signed Impressions: Service Date/Time: January 10:55 - CONCLUSION: 1. No evidence for leakage or obstruction after injection of gastrostomy tube. Ken Crandall MD Central Venous Line 01/14/17 1150 Signed Impressions: Service Date/Time: Saturday, January 14, 2017 11:50 - CONCLUSION: Uncomplicated Permcath removal. Beto Perry MD Lower Extremity Ultrasound 01/06/17 0000 Signed Impressions: Service Date/Time: Friday, January 06, 2017 09:02 - CONCLUSION: Normal examination. Shawn Reyes MD Upper Extremity Ultrasound 12/11/16 1506 Signed Impressions: Service Date/Time: Sunday, December 11, 2016 18:00 - CONCLUSION: Superficial thrombophlebitis, extensive edema and nonspecific fluid collections in the subcutaneous tissues. Shawn Reyes MD Head CT 12/11/16 0000 Signed Impressions: Service Date/Time: Sunday, December 11, 2016 20:00 - CONCLUSION: Slight atrophic and small vessel ischemic changes without any evidence for acute hemorrhage or mass effect. Shawn Reyes MD Renal Ultrasound 12/09/16 0000 Signed Impressions: Service Date/Time: Friday, December 09, 2016 15:16 - CONCLUSION: 1. 8.4 cm mass lesion at the base of the bladder. This may represent an intrinsic mass of the bladder versus a prominent anterior lobe of the prostate. 2. Otherwise, urinary bladder is partially decompressed with a Lipscomb catheter. 3. Both kidneys are sonographically normal. Roby Horta MD Objective Remarks GENERAL: Pt encountered laying a bed, awake and alert, pleasant and cooperative. SKIN: Warm and dry. HEAD: Normocephalic. EYES: No scleral icterus. No injection or drainage. NECK: Supple, trachea midline. No lymphadenopathy. CARDIOVASCULAR: Regular rate and rhythm without murmurs, gallops, or rubs. RESPIRATORY: Breath sounds were equal bilaterally; no wheezes or rhonchi noted. No accessory muscle use. GASTROINTESTINAL: Abdomen soft, non-tender, nondistended. Feeding tube present. MUSCULOSKELETAL: No cyanosis, or edema. PSYCHIATRIC: A&Ox 3, pleasant, no overt signs of depression and/or anxiety. Procedures 12/11- EGD- esophagitis, gastritis, duodenitis PEG placement Medications and IVs Current Medications Medications (Trade) Dose Ordered Sig/Luis Carlos Route Start Time Stop Time Status Last Admin (NS Flush) 2 ml UNSCH PRN FLUSH 12/05/16 17:00 (NS Flush) 2 ml BID FLUSH 12/05/16 21:00 02/17/17 09:00 (Zofran Inj) 4 mg Q6H PRN IVP 12/05/16 18:00 02/04/17 20:28 (Dulcolax Supp) 10 mg DAILY PRN DC 12/05/16 18:00 (Narcan Inj) 0.4 mg UNSCH PRN IV 12/05/16 17:00 (Ferrous Sulfate Liq) 300 mg DAILY PO 12/06/16 09:00 02/17/17 09:18 (Lipitor) 40 mg HS PO 12/05/16 21:00 02/16/17 21:05 (Lasix Liq) 40 mg DAILY TUBE 12/06/16 09:00 Hold 12/20/16 08:50 (Jacinda-Colace) 2 tab BID PRN PO 12/05/16 19:45 02/12/17 20:19 Lactulose 30 ml 30 ml TID PRN PO 12/05/16 19:45 02/11/17 14:18 (NS 1000 ml Inj) 1,000 ml @ 0 mls/hr Q0M PRN IV 12/06/16 12:11 12/12/16 09:33 Heparin Sodium (Porcine) 8000 units 8,000 units UNSCH PRN IVF 12/06/16 12:15 Sodium Chloride 1,000 ml @ 200 mls/hr Q5H PRN IV 12/06/16 12:11 (NS 1000 ml Inj) 1,000 ml @ 0 mls/hr Q0M PRN IV 12/06/16 12:11 (Mannitol Inj) 12.5 gm UNSCH PRN IV 12/06/16 12:15 (Albumin 25% Inj) 25 gm UNSCH PRN IV 12/06/16 12:15 (NS Flush) 5 ml UNSCH PRN IVF 12/06/16 12:15 (Heparin Inj) UNSCH PRN .XX 12/06/16 12:15 12/14/16 16:39 (Gentamicin (Dialysis) Inj) 20 mg UNSCH PRN IV 12/06/16 12:15 12/14/16 16:39 (Zofran Inj) 4 mg UNSCH PRN IV 12/06/16 12:15 02/13/17 19:05 (Tylenol) 650 mg UNSCH PRN PO 12/06/16 12:15 12/14/16 07:54 (Benadryl) 25 mg UNSCH PRN PO 12/06/16 12:15 (Nitrostat Sl) 0.4 mg UNSCH PRN SL 12/06/16 12:15 (Catapres) 0.1 mg UNSCH PRN PO 12/06/16 12:15 12/19/16 06:27 (Epogen Inj) 10,000 units UNSCH PRN IV 12/06/16 12:15 12/14/16 16:39 (Gelfoam 12 Mm/7 Mm Top) 1 foam UNSCH PRN TOP 12/06/16 12:15 (Megace Liq) 400 mg DAILY PO 12/08/16 09:00 02/17/17 09:19 (Heparin Inj) 5,000 units Q12HR SQ 12/08/16 21:00 Hold 01/13/17 09:37 (Dilantin Liq) 300 mg Q12HR PO 12/08/16 21:00 02/17/17 09:19 Fluticasone Propionate 2 spray 2 spray DAILY EACH NARE 12/18/16 12:00 02/12/17 09:35 (1/2 NS 1000 ml Inj) 1,000 ml @ 65 mls/hr [id number] IV 12/20/16 10:00 Hold 12/24/16 21:10 (Protonix) 40 mg DAILY PO 12/25/16 10:30 02/17/17 09:18 Miscellaneous Information Patient in critical care unit? Ass... [id number] .XX 12/25/16 22:30 12/25/16 22:30 (Procardia Xl) 90 mg DAILY PO 12/27/16 09:00 02/17/17 09:18 (Pill Splitter) 1 ea UNSCH PRN OTHER 12/26/16 19:00 12/27/16 10:33 (Catapres) 0.1 mg Q8HR PO 01/03/17 22:00 02/17/17 05:35 (Morphine Inj) 2 mg Q3H PRN IV PUSH 01/13/17 05:15 02/15/17 10:50 (Ativan Inj) 1 mg Q4H PRN IV PUSH 01/13/17 05:15 02/04/17 20:30 (Lasix Inj) 20 mg Q6HR PRN IV PUSH 01/13/17 05:15 (Milk Of Magnesia Liq) 30 ml BID PRN PO 01/19/17 10:45 02/14/17 05:54 (Tums Chew) 500 mg Q6H PRN CHEW 01/27/17 15:00 02/10/17 20:31 ([place] 5-325 Mg) 1 tab Q4H PRN PO 01/29/17 08:15 ([place] 5-325 Mg) 2 tab Q4H PRN PO 01/29/17 08:15 02/10/17 21:35 (Cardura) 8 mg HS PO 01/29/17 21:00 02/16/17 21:05 (Mucinex Er) 600 mg BID PO 02/01/17 21:00 02/17/17 09:18 (Flomax) 0.4 mg DAILY PO 02/06/17 18:45 02/17/17 09:19 (Heparin Inj) 5,000 units Q12HR SQ 02/09/17 21:00 02/17/17 09:19 Urinary Catheter: No Date of Insertion: January 24, 2017 Vascular Central Line Catheter: No A/P Problem List: (1) Bronchiolar obstruction ICD Code: J98.09 Status: Acute (2) Mass of left lung ICD Code: R91.8 Status: Acute (3) Squamous cell lung cancer ICD Code: C34.90 Status: Acute (4) Severe muscle deconditioning ICD Code: R29.898 Status: Acute (5) Anemia ICD Code: D64.9 Status: Acute (6) Acute respiratory failure ICD Code: J96.00 Status: Acute (7) Hemoptysis ICD Code: R04.2 Status: Acute (8) Hypoxia ICD Code: R09.02 Status: Acute Assessment and Plan 71 Y/O male with: Respiratory failure/Left bronchial mass: Patient was at [facility]. He underwent bronchoscopy with debulking of a large mass involving the left mainstem bronchus The left main bronchus was stented. The hemoptysis was controlled and he was eventually extubated. - Patient undergoing radiation. Setback on 01/13. Went into respiratory distress. Patient decided to change to DNR status. He was considering hospice. ongoing discussion with his son. Appreciate palliative care assisting. Patient resumed radiation. Wish to remain DNR. Patient planning to finished with radiation and then go home, probably with hospice. [facility] will be moving to [place] - O2 supplementation. Currently stable without O2. - Pain control Acute renal failure Renal function stabilized. Permacath removed. Nephrology signed off. -Upward trend noted on BUN and creatinine over recent labs, monitor. Patient with anemia HGB 6.6 on 12/06/16. FOBT positive, consult GI, appreciate recommendations. HGB 12/07/16 of 8.7. Monitor and transfuse as need. Nestor count. Per GI will hold EGD/colonoscopy for now, PEG placed with overnight TFs Megace to help with appetite. 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 Physical deconditioning: Secondary to comorbid conditions above. High risk for continuing decline. - Encourage oral intake. - PT as tolerated. HTN- Continue atenolol 25 mg po bid BPH continue doxazosin 8 mg qhs Seizure- Continue Dilantin. Seizure precautions. Stable. Physical deconditioning conditioning. PT consult DVT ppx with SCD/TEDs Discharge Planning Continue radiation. Pt reports wanting to go to [place], [facility] to be contacted closer to discharge. Problem Qualifiers (1) Squamous cell lung cancer: Qualified Code: C34.92 - Squamous cell lung cancer, left (2) Anemia: Júnior Garcia Jr. February 17, 2017 13:12
--- NOTE | 2017-02-17 17:06 | HHI.PR ---
Subjective Remarks On 3LNC CXR improved aeration of LLL Breathing better No fever Worked with PT today Objective Vital Signs Vital Signs Date Time Temp Pulse Resp B/P Pulse Ox O2 Delivery O2 Flow Rate FiO2 02/17/17 16:20 97.1 100 21 112/70 97 02/17/17 13:24 Room Air 02/17/17 12:48 98.4 110 20 101/72 93 02/17/17 08:01 116 02/17/17 08:00 97.9 115 20 141/64 96 02/17/17 07:31 96 21 02/17/17 00:00 98.3 122 18 102/61 96 02/16/17 21:05 Room Air 02/16/17 20:27 97 Nasal Cannula 2.00 02/16/17 20:02 106 02/16/17 20:00 98.7 116 19 115/67 96 I/O 02/16/17 02/16/17 02/16/17 02/17/17 02/17/17 02/17/17 06:59 14:59 22:59 06:59 14:59 22:59 Intake Total 240 ml 720 ml 480 ml 240 ml 1116 ml Output Total 1100 ml 1000 ml 1225 ml 1160 ml 400 ml Balance -860 ml -280 ml -745 ml -920 ml 716 ml Intake Oral 240 ml 720 ml 480 ml 240 ml 270 ml Tube Feeding 726 ml Other 120 ml Output Urine Total 1100 ml 1000 ml 1225 ml 1160 ml 400 ml # Bowel Movements 0 2 1 0 Result Diagram: 02/17/1762802/17/17628 Objective Remarks GENERAL: Patient is lying in bed in NAD SKIN: Warm and dry. HEAD: Normocephalic. EYES: No scleral icterus. No injection or drainage. NECK: Supple, trachea midline. No JVD or lymphadenopathy. CARDIOVASCULAR: Regular rate and rhythm without murmurs, gallops, or rubs. RESPIRATORY: Breath sounds equal bilaterally. No accessory muscle use. GASTROINTESTINAL: Abdomen soft, non-tender, nondistended. MUSCULOSKELETAL: No cyanosis, or edema. BACK: Nontender without obvious deformity. No CVA tenderness. 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 Supplement 02 to keep sat >90% Aerosol nebs Physical Therapy. Valeriy Wilkins MD February 17, 2017 17:06
[2017-02-17] MEDS: DOXAZOSIN MESYLATE 4 MG TAB PO SCH (20:30)
[2017-02-17] MEDS: ATORVASTATIN 40 MG TAB PO SCH (20:30)
[2017-02-18] VITALS (8 sets, daily range): BP systolic 100–118; BP diastolic 63–70; PULSE 103–117; RESP 20–21; TEMP 96.7–98; O2SAT 95–97
[2017-02-18] MEDS: cloNIDine HCL 0.1 MG TAB PO SCH ×3 (06:29→22:00)
[2017-02-18 06:50] LABS: MEAN CELL VOLUME 85.5 FL (80.0-100.0); MEAN CORPUSCULAR HEMOGLOBIN 27.4 PG (27.0-34.0); PLATELET COUNT 343 TH/MM3 (150-450); RED BLOOD COUNT 3.04 MIL/MM3 (4.50-5.90); RED CELL DISTRIBUTION WIDTH 15.9 % (11.6-17.2); REVIEW FLAG FINAL
[2017-02-18 07:18] LABS: BICARBONATE 25.1 MEQ/L (21.0-32.0); POTASSIUM 4.4 MEQ/L (3.5-5.1)
[2017-02-18] MEDS: MEGESTROL ACETATE SUSP 400 MG/10 ML CUP PO SCH (08:10)
[2017-02-18] MEDS: FERROUS SULFATE 300 MG /5ML UDC PO SCH (08:11)
[2017-02-18] MEDS: HEPARIN SODIUM - SQ 10,000 UNITS/ML VIAL SQ SCH ×2 (08:11→19:43)
[2017-02-18] MEDS: TAMSULOSIN HCL 0.4 MG CAP PO SCH (08:11)
[2017-02-18] MEDS: NIFEdipine 90 MG SUSTAINED RELEASE TAB PO SCH (08:11)
[2017-02-18] MEDS: guaiFENesin E.R. 600 MG TAB PO SCH ×2 (08:11→19:40)
[2017-02-18] MEDS: PANTOPRAZOLE SOD 40 MG DELAYED RELEASE TAB PO SCH (08:11)
[2017-02-18] MEDS: SODIUM CHLORIDE 0.9% FLUSH 5 ML FLUSH FLUSH SCH ×2 (08:12→19:42)
[2017-02-18] MEDS: PHENYTOIN SUSP 100 MG/4 ML CUP PO SCH ×2 (08:12→19:42)
[2017-02-18] MEDS: ACETAMINOPHEN/HYDROcodone 325 MG/5 MG TAB PO PRN (08:26)
[2017-02-18] MEDS: FLUTICASONE PROPIONATE 50 MCG/ACT 16 GM NASAL SPRAY EACH NARE SCH (08:27)
--- NOTE | 2017-02-18 13:55 | HHI.PR ---
Subjective Remarks Follow up for lung cancer. Patient seen and examined; laying a bed. Had a bout of emesis "either late last night or this morning." Currently not nauseated. Pt had radiation treatment this morning () feels "ok." He stated he is "breathing better" and is not requiring oxygen supplementation. Pt voiced uncertainty of when he is to be discharged. Spoke of discharge plans of him going to [place]. Pt stated he was "happy I have a new bed." Pt no longer needed air mattress, per PT. Pt stated he is doing well with PT when he sits up or on the side of the bed. He noted he has little endurance to stand upright. Walker at bedside. Denies fever, chills, shortness of breath, chest pain, abdominal pain, n/v or dysuria. Pt denied physical pain when RN came to the room. No new concerns noted or reported. Objective Vitals Vital Signs Date Time Temp Pulse Resp B/P Pulse Ox O2 Delivery O2 Flow Rate FiO2 02/18/17 12:00 97.6 109 20 118/69 96 02/18/17 08:30 Room Air 02/18/17 08:30 113 02/18/17 08:00 97.2 110 20 100/66 95 02/18/17 04:10 96.7 115 21 102/63 95 02/18/17 00:20 98.0 112 21 107/70 97 02/17/17 21:34 98.8 104 22 110/62 97 02/17/17 21:31 21 02/17/17 20:30 Room Air 02/17/17 16:20 97.1 100 21 112/70 97 I/O 02/17/17 02/17/17 02/17/17 02/18/17 02/18/17 02/18/17 07:00 15:00 23:00 07:00 15:00 23:00 Intake Total 240 ml 1116 ml 420 ml 856 ml Output Total 860 ml 400 ml 800 ml 400 ml 200 ml Balance -620 ml 716 ml -380 ml 456 ml -200 ml Intake Oral 240 ml 270 ml 420 ml 0 ml Tube Feeding 726 ml 736 ml Other 120 ml 120 ml Output Urine Total 860 ml 400 ml 800 ml 400 ml 200 ml # Bowel Movements 0 0 0 1 Result Diagram: 02/18/17 0553 02/18/17 0553 Imaging No new imaging ordered, pending or resulted within the past 24 hours. Objective Remarks GENERAL: Pt encountered laying a bed, awake and alert, pleasant and cooperative. SKIN: Warm and dry. HEAD: Normocephalic. EYES: No scleral icterus. No injection or drainage. NECK: Supple, trachea midline. No lymphadenopathy. CARDIOVASCULAR: Regular rate and rhythm without murmurs, gallops, or rubs. RESPIRATORY: Breath sounds were equal bilaterally; bilateral wheezes (upon exhalation and inhalation) noted yet he was without rhonchi. No accessory muscle use. GASTROINTESTINAL: Abdomen soft, non-tender, nondistended. Feeding tube present. MUSCULOSKELETAL: No cyanosis, or edema. PSYCHIATRIC: A&Ox 3, pleasant, no overt signs of depression and/or anxiety. Procedures 12/11- EGD- esophagitis, gastritis, duodenitis PEG placement Medications and IVs Current Medications Medications (Trade) Dose Ordered Sig/Luis Carlos Route Start Time Stop Time Status Last Admin (NS Flush) 2 ml UNSCH PRN FLUSH 12/05/16 17:00 (NS Flush) 2 ml BID FLUSH 12/05/16 21:00 02/18/17 08:12 (Zofran Inj) 4 mg Q6H PRN IVP 12/05/16 18:00 02/04/17 20:28 (Dulcolax Supp) 10 mg DAILY PRN ME 12/05/16 18:00 (Narcan Inj) 0.4 mg UNSCH PRN IV 12/05/16 17:00 (Ferrous Sulfate Liq) 300 mg DAILY PO 12/06/16 09:00 02/18/17 08:11 (Lipitor) 40 mg HS PO 12/05/16 21:00 02/17/17 20:30 (Lasix Liq) 40 mg DAILY TUBE 12/06/16 09:00 Hold 12/20/16 08:50 (Jacinda-Colace) 2 tab BID PRN PO 12/05/16 19:45 02/12/17 20:19 Lactulose 30 ml 30 ml TID PRN PO 12/05/16 19:45 02/11/17 14:18 (NS 1000 ml Inj) 1,000 ml @ 0 mls/hr Q0M PRN IV 12/06/16 12:11 12/12/16 09:33 Heparin Sodium (Porcine) 8000 units 8,000 units UNSCH PRN IVF 12/06/16 12:15 Sodium Chloride 1,000 ml @ 200 mls/hr Q5H PRN IV 12/06/16 12:11 (NS 1000 ml Inj) 1,000 ml @ 0 mls/hr Q0M PRN IV 12/06/16 12:11 (Mannitol Inj) 12.5 gm UNSCH PRN IV 12/06/16 12:15 (Albumin 25% Inj) 25 gm UNSCH PRN IV 12/06/16 12:15 (NS Flush) 5 ml UNSCH PRN IVF 12/06/16 12:15 (Heparin Inj) UNSCH PRN .XX 12/06/16 12:15 12/14/16 16:39 (Gentamicin (Dialysis) Inj) 20 mg UNSCH PRN IV 12/06/16 12:15 12/14/16 16:39 (Zofran Inj) 4 mg UNSCH PRN IV 12/06/16 12:15 02/13/17 19:05 (Tylenol) 650 mg UNSCH PRN PO 12/06/16 12:15 12/14/16 07:54 (Benadryl) 25 mg UNSCH PRN PO 12/06/16 12:15 (Nitrostat Sl) 0.4 mg UNSCH PRN SL 12/06/16 12:15 (Catapres) 0.1 mg UNSCH PRN PO 12/06/16 12:15 12/19/16 06:27 (Epogen Inj) 10,000 units UNSCH PRN IV 12/06/16 12:15 12/14/16 16:39 (Gelfoam 12 Mm/7 Mm Top) 1 foam UNSCH PRN TOP 12/06/16 12:15 (Megace Liq) 400 mg DAILY PO 12/08/16 09:00 02/18/17 08:10 (Heparin Inj) 5,000 units Q12HR SQ 12/08/16 21:00 Hold 01/13/17 09:37 (Dilantin Liq) 300 mg Q12HR PO 12/08/16 21:00 02/18/17 08:12 Fluticasone Propionate 2 spray 2 spray DAILY EACH NARE 12/18/16 12:00 02/18/17 08:27 (1/2 NS 1000 ml Inj) 1,000 ml @ 65 mls/hr [id number] IV 12/20/16 10:00 Hold 12/24/16 21:10 (Protonix) 40 mg DAILY PO 12/25/16 10:30 02/18/17 08:11 Miscellaneous Information Patient in critical care unit? Ass... [id number] .XX 12/25/16 22:30 12/25/16 22:30 (Procardia Xl) 90 mg DAILY PO 12/27/16 09:00 02/18/17 08:11 (Pill Splitter) 1 ea UNSCH PRN OTHER 12/26/16 19:00 12/27/16 10:33 (Catapres) 0.1 mg Q8HR PO 01/03/17 22:00 02/17/17 20:30 (Morphine Inj) 2 mg Q3H PRN IV PUSH 01/13/17 05:15 02/15/17 10:50 (Ativan Inj) 1 mg Q4H PRN IV PUSH 01/13/17 05:15 02/04/17 20:30 (Lasix Inj) 20 mg Q6HR PRN IV PUSH 01/13/17 05:15 (Milk Of Magnesia Liq) 30 ml BID PRN PO 01/19/17 10:45 02/14/17 05:54 (Tums Chew) 500 mg Q6H PRN CHEW 01/27/17 15:00 02/10/17 20:31 ([place] 5-325 Mg) 1 tab Q4H PRN PO 01/29/17 08:15 02/18/17 08:26 ([place] 5-325 Mg) 2 tab Q4H PRN PO 01/29/17 08:15 02/10/17 21:35 (Cardura) 8 mg HS PO 01/29/17 21:00 02/17/17 20:30 (Mucinex Er) 600 mg BID PO 02/01/17 21:00 02/18/17 08:11 (Flomax) 0.4 mg DAILY PO 02/06/17 18:45 02/18/17 08:11 (Heparin Inj) 5,000 units Q12HR SQ 02/09/17 21:00 02/18/17 08:11 Urinary Catheter: No Date of Insertion: January 24, 2017 Vascular Central Line Catheter: No A/P Problem List: (1) Bronchiolar obstruction ICD Code: J98.09 Status: Acute (2) Mass of left lung ICD Code: R91.8 Status: Acute (3) Squamous cell lung cancer ICD Code: C34.90 Status: Acute (4) Severe muscle deconditioning ICD Code: R29.898 Status: Acute (5) Anemia ICD Code: D64.9 Status: Acute (6) Acute respiratory failure ICD Code: J96.00 Status: Acute (7) Hemoptysis ICD Code: R04.2 Status: Acute (8) Hypoxia ICD Code: R09.02 Status: Acute Assessment and Plan 71 Y/O male with: Respiratory failure/Left bronchial mass: Patient was at [facility]. He underwent bronchoscopy with debulking of a large mass involving the left mainstem bronchus The left main bronchus was stented. The hemoptysis was controlled and he was eventually extubated. - Patient undergoing radiation. Setback on 01/13. Went into respiratory distress. Patient decided to change to DNR status. He was considering hospice. ongoing discussion with his son. Appreciate palliative care assisting. Patient resumed radiation. Wish to remain DNR. Patient planning to finished with radiation and then go home, probably with hospice. Ultimately will be moving to [place] - O2 supplementation. Currently stable without O2. - Pain control Acute renal failure Renal function stabilized. Permacath removed. Nephrology signed off. -Upward trend noted on BUN and creatinine over recent labs, monitor. Patient with anemia HGB 6.6 on 12/06/16. FOBT positive, consult GI, appreciate recommendations. HGB 12/07/16 of 8.7. Monitor and transfuse as need. Nestor count. Per GI will hold EGD/colonoscopy for now, PEG placed with overnight TFs Megace to help with appetite. 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 Physical deconditioning: Secondary to comorbid conditions above. High risk for continuing decline. - Encourage oral intake. - PT as tolerated. HTN- Continue atenolol 25 mg po bid BPH continue doxazosin 8 mg qhs Seizure- Continue Dilantin. Seizure precautions. Stable. Physical deconditioning conditioning. PT consult DVT ppx with SCD/TEDs Case discussed with pt, RN, and Dr. Degroot. Discharge Planning Continue radiation. Pt reports wanting to go to [facility] to be contacted closer to discharge. Problem Qualifiers (1) Squamous cell lung cancer: Qualified Code: C34.92 - Squamous cell lung cancer, left (2) Anemia: Jnúior Garcia Jr. February 18, 2017 13:55
--- NOTE | 2017-02-18 19:12 | HHI.PR ---
Subjective Remarks On 3LNC CXR improved aeration of LLL Breathing better No fever Worked with PT today, started with walker Had radiation treatment. Objective Vital Signs Vital Signs Date Time Temp Pulse Resp B/P Pulse Ox O2 Delivery O2 Flow Rate FiO2 02/18/17 16:00 98.0 103 20 112/70 95 02/18/17 12:00 97.6 109 20 118/69 96 02/18/17 08:30 Room Air 02/18/17 08:30 113 02/18/17 08:00 97.2 110 20 100/66 95 02/18/17 04:10 96.7 115 21 102/63 95 02/18/17 00:20 98.0 112 21 107/70 97 02/17/17 21:34 98.8 104 22 110/62 97 02/17/17 21:31 21 02/17/17 20:30 Room Air I/O 02/17/17 02/17/17 02/17/17 02/18/17 02/18/17 02/18/17 07:00 15:00 23:00 07:00 15:00 23:00 Intake Total 240 ml 1116 ml 420 ml 856 ml 360 ml Output Total 860 ml 400 ml 800 ml 400 ml 300 ml Balance -620 ml 716 ml -380 ml 456 ml 60 ml Intake Oral 240 ml 270 ml 420 ml 0 ml 360 ml Tube Feeding 726 ml 736 ml Other 120 ml 120 ml Output Urine Total 860 ml 400 ml 800 ml 400 ml 300 ml # Bowel Movements 0 0 0 1 Result Diagram: 02/18/17 0553 02/18/17 0553 Objective Remarks GENERAL: Patient is lying in bed in NAD SKIN: Warm and dry. HEAD: Normocephalic. EYES: No scleral icterus. No injection or drainage. NECK: Supple, trachea midline. No JVD or lymphadenopathy. CARDIOVASCULAR: Regular rate and rhythm without murmurs, gallops, or rubs. RESPIRATORY: Breath sounds equal bilaterally. No accessory muscle use. GASTROINTESTINAL: Abdomen soft, non-tender, nondistended. MUSCULOSKELETAL: No cyanosis, or edema. BACK: Nontender without obvious deformity. No CVA tenderness. 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 Supplement 02 to keep sat >90% Aerosol nebs Physical Therapy. Valeriy Wilkins MD February 18, 2017 19:12
[2017-02-18] MEDS: DOXAZOSIN MESYLATE 4 MG TAB PO SCH (19:39)
[2017-02-18] MEDS: ATORVASTATIN 40 MG TAB PO SCH (19:40)
[2017-02-19] VITALS (7 sets, daily range): BP systolic 97–113; BP diastolic 62–74; PULSE 110–122; RESP 16–20; TEMP 97.6–99.1; O2SAT 95–98
[2017-02-19] MEDS: cloNIDine HCL 0.1 MG TAB PO SCH ×3 (06:00→22:00)
[2017-02-19] MEDS: FLUTICASONE PROPIONATE 50 MCG/ACT 16 GM NASAL SPRAY EACH NARE SCH (09:00)
[2017-02-19] MEDS: SODIUM CHLORIDE 0.9% FLUSH 5 ML FLUSH FLUSH SCH ×2 (09:00→20:43)
[2017-02-19] MEDS: FERROUS SULFATE 300 MG /5ML UDC PO SCH (09:00)
[2017-02-19] MEDS: PANTOPRAZOLE SOD 40 MG DELAYED RELEASE TAB PO SCH (10:54)
[2017-02-19] MEDS: guaiFENesin E.R. 600 MG TAB PO SCH ×2 (10:54→20:42)
[2017-02-19] MEDS: TAMSULOSIN HCL 0.4 MG CAP PO SCH (10:54)
[2017-02-19] MEDS: PHENYTOIN SUSP 100 MG/4 ML CUP PO SCH ×2 (10:55→20:41)
[2017-02-19] MEDS: MEGESTROL ACETATE SUSP 400 MG/10 ML CUP PO SCH (10:55)
[2017-02-19] MEDS: NIFEdipine 90 MG SUSTAINED RELEASE TAB PO SCH (10:55)
[2017-02-19] MEDS: HEPARIN SODIUM - SQ 10,000 UNITS/ML VIAL SQ SCH ×2 (10:56→20:42)
--- NOTE | 2017-02-19 11:43 | HHI.PR ---
Subjective Remarks Follow up for lung cancer. Patient seen and examined; laying a bed. Currently not nauseated. Pt had radiation treatment yesterday morning () feels "ok." No pain, discomfort, malaise reported subsequent to treatment. He stated he is "breathing better" and is not requiring oxygen supplementation. Spoke of discharge plans of him going to [place]. Pt stated he will "go upstairs to [place] (rehab) for about 20 days before they send me home." Pt stated he is doing well with PT when he sits up or on the side of the bed. He noted he has little endurance to stand upright. Walker at bedside. Denies fever, chills, shortness of breath, chest pain, abdominal pain, n/v or dysuria. No new concerns noted or reported. Objective Vitals Vital Signs Date Time Temp Pulse Resp B/P Pulse Ox O2 Delivery O2 Flow Rate FiO2 02/19/17 09:15 Room Air 02/19/17 08:00 97.8 118 18 97/70 97 02/19/17 04:00 99.1 122 20 105/62 95 02/19/17 00:00 98.9 114 20 112/67 97 02/18/17 20:10 116 02/18/17 20:00 97.6 117 20 110/63 96 02/18/17 19:50 Room Air 02/18/17 16:00 98.0 103 20 112/70 95 02/18/17 12:00 97.6 109 20 118/69 96 I/O 02/18/17 02/18/17 02/18/17 02/19/17 02/19/17 02/19/17 07:00 15:00 23:00 07:00 15:00 23:00 Intake Total 856 ml 360 ml 240 ml 734 ml Output Total 400 ml 300 ml 195 ml 750 ml 300 ml Balance 456 ml 60 ml 45 ml -16 ml -300 ml Intake Oral 0 ml 360 ml 240 ml Tube Feeding 736 ml 734 ml Other 120 ml Output Urine Total 400 ml 300 ml 195 ml 750 ml 300 ml # Bowel Movements 0 1 1 0 Result Diagram: 02/18/17 0553 02/18/17 0553 Imaging Last Impressions Chest X-Ray 02/12/17 06 Signed Impressions: Service Date/Time: Sunday, February 12, 2017 07:35 - CONCLUSION: Improving left upper lobe density. Chalo Hamlin MD Abdomen X-Ray 01/30/17 0000 Signed Impressions: Service Date/Time: January 10:55 - CONCLUSION: 1. No evidence for leakage or obstruction after injection of gastrostomy tube. Ken Crandall MD Central Venous Line 01/14/17 1150 Signed Impressions: Service Date/Time: Saturday, January 14, 2017 11:50 - CONCLUSION: Uncomplicated Permcath removal. Beto Perry MD Lower Extremity Ultrasound 01/06/17 0000 Signed Impressions: Service Date/Time: Friday, January 06, 2017 09:02 - CONCLUSION: Normal examination. Shawn Reyes MD Upper Extremity Ultrasound 12/11/16 1506 Signed Impressions: Service Date/Time: Sunday, December 11, 2016 18:00 - CONCLUSION: Superficial thrombophlebitis, extensive edema and nonspecific fluid collections in the subcutaneous tissues. Shawn Reyes MD Head CT 12/11/16 0000 Signed Impressions: Service Date/Time: Sunday, December 11, 2016 20:00 - CONCLUSION: Slight atrophic and small vessel ischemic changes without any evidence for acute hemorrhage or mass effect. Shawn Reyes MD Renal Ultrasound 12/09/16 0000 Signed Impressions: Service Date/Time: Friday, December 09, 2016 15:16 - CONCLUSION: 1. 8.4 cm mass lesion at the base of the bladder. This may represent an intrinsic mass of the bladder versus a prominent anterior lobe of the prostate. 2. Otherwise, urinary bladder is partially decompressed with a Lipscomb catheter. 3. Both kidneys are sonographically normal. Roby Horta MD Objective Remarks GENERAL: Pt encountered laying a bed, awake and alert, pleasant and cooperative. SKIN: Warm and dry. HEAD: Normocephalic. EYES: No scleral icterus. No injection or drainage. NECK: Supple, trachea midline. No lymphadenopathy. CARDIOVASCULAR: Regular rate and rhythm without murmurs, gallops, or rubs. RESPIRATORY: Breath sounds were equal bilaterally. Bilateral wheezes of yesterday were absent today. No accessory muscle use. GASTROINTESTINAL: Abdomen soft, non-tender, nondistended. Feeding tube present. MUSCULOSKELETAL: No cyanosis, or edema. PSYCHIATRIC: A&Ox 3, pleasant, no overt signs of depression and/or anxiety. Procedures 12/11- EGD- esophagitis, gastritis, duodenitis PEG placement Urinary Catheter: No Date of Insertion: January 24, 2017 A/P Problem List: (1) Bronchiolar obstruction ICD Code: J98.09 Status: Acute (2) Mass of left lung ICD Code: R91.8 Status: Acute (3) Squamous cell lung cancer ICD Code: C34.90 Status: Acute (4) Severe muscle deconditioning ICD Code: R29.898 Status: Acute (5) Anemia ICD Code: D64.9 Status: Acute (6) Acute respiratory failure ICD Code: J96.00 Status: Acute (7) Hemoptysis ICD Code: R04.2 Status: Acute (8) Hypoxia ICD Code: R09.02 Status: Acute Assessment and Plan 71 Y/O male with: Respiratory failure/Left bronchial mass: Patient was at [facility]. He underwent bronchoscopy with debulking of a large mass involving the left mainstem bronchus The left main bronchus was stented. The hemoptysis was controlled and he was eventually extubated. - Patient undergoing radiation. Setback on 01/13. Went into respiratory distress. Patient decided to change to DNR status. He was considering hospice. ongoing discussion with his son. Appreciate palliative care assisting. Patient resumed radiation. Wish to remain DNR. Patient planning to finished with radiation and then go home, probably with hospice. Ultimately will be moving to [place] - O2 supplementation. Currently stable without O2. - Pain control Acute renal failure Renal function stabilized. Permacath removed. Nephrology signed off. -Upward trend noted on BUN and creatinine over recent labs, monitor. -/02/19/17: Creatinine elevation noted, IVF started, monitor labs Patient with anemia HGB 6.6 on 12/06/16. FOBT positive, consult GI, appreciate recommendations. HGB 12/07/16 of 8.7. Monitor and transfuse as need. Nestor count. Per GI will hold EGD/colonoscopy for now, PEG placed with overnight TFs Megace to help with appetite. 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 Physical deconditioning: Secondary to comorbid conditions above. High risk for continuing decline. - Encourage oral intake. - PT as tolerated. HTN- Continue atenolol 25 mg po bid BPH continue doxazosin 8 mg qhs Seizure- Continue Dilantin. Seizure precautions. Stable. Physical deconditioning conditioning. PT consult DVT ppx with SCD/TEDs Case discussed with pt, RN, and Dr. Degroot. Discharge Planning Continue radiation. Pt reports wanting to go to [facility] to be contacted closer to discharge. Problem Qualifiers (1) Squamous cell lung cancer: Qualified Code: C34.92 - Squamous cell lung cancer, left (2) Anemia: Júnior Garcia Jr. February 19, 2017 11:42
[2017-02-19] MEDS: SODIUM CHLOR 0.9% 1000 ML INJ 1,000 ML IV SCH (12:40)
--- NOTE | 2017-02-19 20:25 | HHI.PR ---
Subjective Remarks On 3LNC CXR improved aeration of LLL Breathing better No fever Worked with PT today, started with walker Had radiation treatment. No new complaint Objective Vital Signs Vital Signs Date Time Temp Pulse Resp B/P Pulse Ox O2 Delivery O2 Flow Rate FiO2 02/19/17 16:00 97.6 115 18 101/71 97 02/19/17 12:00 98.0 119 18 105/68 98 02/19/17 09:15 Room Air 02/19/17 08:00 97.8 118 18 97/70 97 02/19/17 04:00 99.1 122 20 105/62 95 02/19/17 00:00 98.9 114 20 112/67 97 I/O 02/18/17 02/18/17 02/18/17 02/19/17 02/19/17 02/19/17 07:00 15:00 23:00 07:00 15:00 23:00 Intake Total 856 ml 360 ml 240 ml 734 ml 600 ml 240 ml Output Total 400 ml 300 ml 195 ml 750 ml 400 ml 300 ml Balance 456 ml 60 ml 45 ml -16 ml 200 ml -60 ml Intake Oral 0 ml 360 ml 240 ml 600 ml 240 ml Tube Feeding 736 ml 734 ml Other 120 ml Output Urine Total 400 ml 300 ml 195 ml 750 ml 400 ml 300 ml # Bowel Movements 0 1 1 0 1 Result Diagram: 02/18/17 0553 02/18/17 0553 Objective Remarks GENERAL: Patient is lying in bed in NAD SKIN: Warm and dry. HEAD: Normocephalic. EYES: No scleral icterus. No injection or drainage. NECK: Supple, trachea midline. No JVD or lymphadenopathy. CARDIOVASCULAR: Regular rate and rhythm without murmurs, gallops, or rubs. RESPIRATORY: Breath sounds equal bilaterally. No accessory muscle use. GASTROINTESTINAL: Abdomen soft, non-tender, nondistended. MUSCULOSKELETAL: No cyanosis, or edema. BACK: Nontender without obvious deformity. No CVA tenderness. 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 Supplement 02 to keep sat >90% Aerosol nebs Physical Therapy. Valeriy Wilkins MD February 19, 2017 20:25
[2017-02-19] MEDS: DOXAZOSIN MESYLATE 4 MG TAB PO SCH (20:41)
[2017-02-19] MEDS: ATORVASTATIN 40 MG TAB PO SCH (20:42)
[2017-02-20] VITALS (8 sets, daily range): BP systolic 97–125; BP diastolic 66–72; PULSE 106–114; RESP 16–20; TEMP 97.8–98.5; O2SAT 93–98
[2017-02-20] MEDS: cloNIDine HCL 0.1 MG TAB PO SCH ×3 (06:00→22:00)
[2017-02-20 07:35] LABS: AUTOMATED NEUTROPHIL # 4.4 TH/MM3 (1.8-7.7); BASOPHIL # 0.1 TH/MM3 (0-0.2); EOSINOPHIL # 0.5 TH/MM3 (0-0.4); EOSINOPHIL % 7.5 % (0.0-4.0); HEMATOCRIT 23.1 % (39.0-51.0); LYMPH % 11.6 % (9.0-44.0); LYMPHOCYTE # 0.7 TH/MM3 (1.0-4.8); MEAN CELL VOLUME 86.4 FL (80.0-100.0); MEAN CORPUSCULAR HGB CONC 32.4 % (32.0-36.0); MONO % 10.4 % (0.0-8.0); NEUT % 69.5 % (16.0-70.0); PLATELET COUNT 311 TH/MM3 (150-450); RED BLOOD COUNT 2.68 MIL/MM3 (4.50-5.90); RED CELL DISTRIBUTION WIDTH 16.4 % (11.6-17.2); WHITE BLOOD COUNT 6.4 TH/MM3 (4.0-11.0)
[2017-02-20 07:42] LABS: HEMO FLAGS AUTO DIFF
[2017-02-20 07:53] LABS: ANION GAP 8 MEQ/L (5-15); AST (GOT) 21 U/L (15-37); BICARBONATE 23.3 MEQ/L (21.0-32.0); CHLORIDE 109 MEQ/L (98-107); GLOMERULAR FILTRATION RATE 56 ML/MIN (>89); POTASSIUM 4.3 MEQ/L (3.5-5.1); SODIUM (NA) 140 MEQ/L (136-145)
[2017-02-20 07:56] LABS: ALKALINE PHOSPHATASE 99 U/L (45-117); ALT (GPT) 41 U/L (12-78); BLOOD UREA NITROGEN 50 MG/DL (7-18); TOTAL BILIRUBIN ADULT 0.2 MG/DL (0.2-1.0)
[2017-02-20] MEDS: FERROUS SULFATE 300 MG /5ML UDC PO SCH (08:27)
[2017-02-20] MEDS: MEGESTROL ACETATE SUSP 400 MG/10 ML CUP PO SCH (08:27)
[2017-02-20] MEDS: PANTOPRAZOLE SOD 40 MG DELAYED RELEASE TAB PO SCH (08:27)
[2017-02-20] MEDS: PHENYTOIN SUSP 100 MG/4 ML CUP PO SCH ×2 (08:27→19:39)
[2017-02-20] MEDS: HEPARIN SODIUM - SQ 10,000 UNITS/ML VIAL SQ SCH ×2 (08:27→19:39)
[2017-02-20] MEDS: NIFEdipine 90 MG SUSTAINED RELEASE TAB PO SCH (08:27)
[2017-02-20] MEDS: guaiFENesin E.R. 600 MG TAB PO SCH ×2 (08:28→19:38)
[2017-02-20] MEDS: FLUTICASONE PROPIONATE 50 MCG/ACT 16 GM NASAL SPRAY EACH NARE SCH (08:28)
[2017-02-20] MEDS: TAMSULOSIN HCL 0.4 MG CAP PO SCH (08:28)
[2017-02-20] MEDS: SODIUM CHLORIDE 0.9% FLUSH 5 ML FLUSH FLUSH SCH ×2 (09:00→19:39)
[2017-02-20 09:33] LABS: OVALOCYTES 1+ (NORMAL); SCAN/DIFF AUTO DIFF CONFIRMED
[2017-02-20] MEDS: SODIUM CHLOR 0.9% 1000 ML INJ 1,000 ML IV SCH (15:08)
--- NOTE | 2017-02-20 16:36 | HHI.PR ---
Subjective Remarks Follow up for orthostatic hypotension/dizziness and lung cancer and radiation. Patient seen and examined. Had radiation today, has 5 treatments left. In good spirits. No acute new complaints. Patient seen and auscultated, congestion noted. IVF stopped. Ordered chest x-ray. Will follow. Denies any recent fever, headache, dizziness, chills, cough, abdominal pain, n/v, dysuria. Tolerating Po intake. Objective Vitals Vital Signs Date Time Temp Pulse Resp B/P Pulse Ox O2 Delivery O2 Flow Rate FiO2 02/20/17 16:05 98.1 106 20 125/71 97 02/20/17 12:06 98.4 107 20 125/70 96 02/20/17 09:25 98 21 02/20/17 08:22 Room Air 02/20/17 08:00 98.5 112 20 122/72 97 02/20/17 04:00 98.3 108 16 97/66 96 02/20/17 00:00 97.8 111 20 112/70 93 02/19/17 20:40 Room Air 02/19/17 20:03 119 02/19/17 20:00 98.6 110 16 113/74 97 I/O 02/19/17 02/19/17 02/19/17 02/20/17 02/20/17 02/20/17 07:00 15:00 23:00 07:00 15:00 23:00 Intake Total 734 ml 600 ml 960 ml 2692 ml 641 ml Output Total 750 ml 400 ml 750 ml 500 ml 310 ml Balance -16 ml 200 ml 210 ml 2192 ml 331 ml Intake Oral 600 ml 960 ml 480 ml 440 ml IV Total 1452 ml 201 ml Tube Feeding 734 ml 760 ml Output Urine Total 750 ml 400 ml 750 ml 500 ml 310 ml # Bowel Movements 0 1 1 Result Diagram: 02/20/17 0558 02/20/17 0558 Imaging Last Impressions Chest X-Ray 02/12/17 0600 Signed Impressions: Service Date/Time: Sunday, February 12, 2017 07:35 - CONCLUSION: Improving left upper lobe density. Chalo Hamlin MD Abdomen X-Ray 01/30/17 0000 Signed Impressions: Service Date/Time: January 10:55 - CONCLUSION: 1. No evidence for leakage or obstruction after injection of gastrostomy tube. Ken Crandall MD Central Venous Line 01/14/17 1150 Signed Impressions: Service Date/Time: Saturday, January 14, 2017 11:50 - CONCLUSION: Uncomplicated Permcath removal. Beto Perry MD Lower Extremity Ultrasound 01/06/17 0000 Signed Impressions: Service Date/Time: Friday, January 06, 2017 09:02 - CONCLUSION: Normal examination. Shawn Reyes MD Upper Extremity Ultrasound 12/11/16 1506 Signed Impressions: Service Date/Time: Sunday, December 11, 2016 18:00 - CONCLUSION: Superficial thrombophlebitis, extensive edema and nonspecific fluid collections in the subcutaneous tissues. Shawn Reyes MD Head CT 12/11/16 0000 Signed Impressions: Service Date/Time: Sunday, December 11, 2016 20:00 - CONCLUSION: Slight atrophic and small vessel ischemic changes without any evidence for acute hemorrhage or mass effect. Shawn Reyes MD Renal Ultrasound 12/09/16 0000 Signed Impressions: Service Date/Time: Friday, December 09, 2016 15:16 - CONCLUSION: 1. 8.4 cm mass lesion at the base of the bladder. This may represent an intrinsic mass of the bladder versus a prominent anterior lobe of the prostate. 2. Otherwise, urinary bladder is partially decompressed with a Lipscomb catheter. 3. Both kidneys are sonographically normal. Roby Horta MD Objective Remarks GENERAL: Well-nourished, well-developed pleasant male patient in [facility]. SKIN: Warm and dry. No rash. HEENT: Normocephalic. Atraumatic. Pupils equal and round. Mucous membranes pink and moist. NECK: Supple. Trachea midline. CARDIOVASCULAR: Regular rate and rhythm. S1, S2 noted. No murmur appreciated. RESPIRATORY: No accessory muscle use. Congestion noted throughout. Breath sounds equal bilaterally. GASTROINTESTINAL: Abdomen soft, non-tender, nondistended. Normoactive bowel sounds x4. MUSCULOSKELETAL: No obvious deformities. Extremities without clubbing, cyanosis , or edema. NEUROLOGICAL: Awake and alert. No obvious cranial nerve deficits. Motor grossly within normal limits. Normal speech. PSYCHIATRIC: Appropriate mood and affect; insight and judgment normal. Procedures 12/11- EGD- esophagitis, gastritis, duodenitis PEG placement Date of Insertion: January 24, 2017 A/P Problem List: (1) Bronchiolar obstruction ICD Code: J98.09 Status: Acute (2) Mass of left lung ICD Code: R91.8 Status: Acute (3) Squamous cell lung cancer ICD Code: C34.90 Status: Acute (4) Severe muscle deconditioning ICD Code: R29.898 Status: Acute (5) Anemia ICD Code: D64.9 Status: Acute (6) Acute respiratory failure ICD Code: J96.00 Status: Acute (7) Hemoptysis ICD Code: R04.2 Status: Acute (8) Hypoxia ICD Code: R09.02 Status: Acute Assessment and Plan 71 Y/O male with: Respiratory failure/Left bronchial mass: - Patient was at [facility]. He underwent bronchoscopy with debulking of a large mass involving the left mainstem bronchus The left main bronchus was stented. The hemoptysis was controlled and he was eventually extubated. - Patient undergoing radiation. Setback on 01/13. Went into respiratory distress. Patient decided to change to DNR status. He was considering hospice. ongoing discussion with his son. Appreciate palliative care assisting. Patient resumed radiation. Wish to remain DNR. Patient planning to finished with radiation and then go home, probably with hospice. Ultimately will be moving to [place]. - O2 supplementation as needed to keep O2 sats > 92%. Currently on RA. - Pain control. Acute renal failure - Renal function stabilized. Permacath removed. Nephrology signed off. - Upward trend noted on BUN and creatinine over recent labs, monitor. - Creatinine stabilized today. Stop IVF. Chest x-ray ordered and reviewed, improved lower lobe infiltrate. Patient asymptomatic. On physical exam, congested, however patient receiving Iron deficiency anemia, acute on chronic - Hemoccult positive, consult GI, appreciate recommendations. - Per GI will hold EGD/colonoscopy for now, PEG placed with overnight TFs - Transfuse if hemoglobin <7. 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 Physical deconditioning - Encourage oral intake. - Megace to help with appetite. - Physical therapy as tolerated. Hypertension: Continue atenolol 25 mg po bid BPH: continue doxazosin 8 mg qhs Seizure: Continue Dilantin. Seizure precautions. Stable. Physical deconditioning conditioning. PT consult DVT prophylaxis: SCD/TEDs Case discussed with patient and Dr. Degroot. Discharge Planning Continue radiation. Pt reports [facility] to go to [facility] to be contacted closer to discharge. Problem Qualifiers (1) Squamous cell lung cancer: Qualified Code: C34.92 - Squamous cell lung cancer, left (2) Anemia: Amada Richey Feb 20, 2017 16:36 Izzy Degroot MD Feb 20, 2017 20:23
--- NOTE | 2017-02-20 18:09 | RADRPT ---
EXAM DATE/TIME: 02/20/2017 17:33 [place] COMPARISON: CHEST SINGLE AP, February 12, 2017, 7:35. INDICATIONS : Congestion MEDICAL HISTORY : Carcinoma, lung. Cardiovascular disease. Hypertension. SURGICAL HISTORY : ENCOUNTER: Subsequent ACUITY: 3 weeks PAIN SCORE: 0/10 LOCATION: Bilateral chest FINDINGS: 2 portable frontal views of the chest show interval clearing of the left lower lobe consolidation. Co nsolidation remains within the left lung apex. Right lung is clear. No effusions. Heart is normal in size. Degenerative changes of the left shoulder. CONCLUSION: 1. Interval clearance of the left lower lobe infiltrate. 2. Persistent consolidation and volume loss involving left upper lobe. Nikolas Roy Jr., MD on February 20, 2017 at 18:06 Board Certified Radiologist. This report was verified electronically.
[2017-02-20] MEDS: ATORVASTATIN 40 MG TAB PO SCH (19:38)
[2017-02-20] MEDS: DOXAZOSIN MESYLATE 4 MG TAB PO SCH (19:38)
--- NOTE | 2017-02-20 19:53 | HHI.PR ---
Subjective Remarks On 3LNC CXR improved aeration of LLL Breathing better No fever Had radiation treatment. No new complaint Objective Vital Signs Vital Signs Date Time Temp Pulse Resp B/P Pulse Ox O2 Delivery O2 Flow Rate FiO2 02/20/17 19:37 98.4 114 19 110/68 97 02/20/17 16:05 98.1 106 20 125/71 97 02/20/17 12:06 98.4 107 20 125/70 96 02/20/17 09:25 98 21 02/20/17 08:22 Room Air 02/20/17 08:00 98.5 112 20 122/72 97 02/20/17 04:00 98.3 108 16 97/66 96 02/20/17 00:00 97.8 111 20 112/70 93 02/19/17 20:40 Room Air 02/19/17 20:03 119 02/19/17 20:00 98.6 110 16 113/74 97 I/O 02/19/17 02/19/17 02/19/17 02/20/17 02/20/17 02/20/17 07:00 15:00 23:00 07:00 15:00 23:00 Intake Total 734 ml 600 ml 960 ml 2692 ml 641 ml Output Total 750 ml 400 ml 750 ml 500 ml 310 ml 240 ml Balance -16 ml 200 ml 210 ml 2192 ml 331 ml -240 ml Intake Oral 600 ml 960 ml 480 ml 440 ml IV Total 1452 ml 201 ml Tube Feeding 734 ml 760 ml Output Urine Total 750 ml 400 ml 750 ml 500 ml 310 ml 240 ml # Bowel Movements 0 1 1 Result Diagram: 02/20/17 0558 02/20/17 0558 Objective Remarks GENERAL: Patient is lying in bed in NAD SKIN: Warm and dry. HEAD: Normocephalic. EYES: No scleral icterus. No injection or drainage. NECK: Supple, trachea midline. No JVD or lymphadenopathy. CARDIOVASCULAR: Regular rate and rhythm without murmurs, gallops, or rubs. RESPIRATORY: Breath sounds equal bilaterally. No accessory muscle use. GASTROINTESTINAL: Abdomen soft, non-tender, nondistended. MUSCULOSKELETAL: No cyanosis, or edema. BACK: Nontender without obvious deformity. No CVA tenderness. 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 Supplement 02 to keep sat >90% Aerosol nebs Physical Therapy. On radiation treatment Valeriy Wilkins MD Feb 20, 2017 19:53
[2017-02-21] VITALS (8 sets, daily range): BP systolic 104–127; BP diastolic 63–69; PULSE 105–112; RESP 18–20; TEMP 96.7–100; O2SAT 94–97
[2017-02-21] MEDS: cloNIDine HCL 0.1 MG TAB PO SCH ×3 (04:57→22:00)
[2017-02-21] MEDS: SODIUM CHLORIDE 0.9% FLUSH 5 ML FLUSH FLUSH SCH ×2 (09:00→19:56)
[2017-02-21] MEDS: FERROUS SULFATE 300 MG /5ML UDC PO SCH (09:00)
[2017-02-21] MEDS: FLUTICASONE PROPIONATE 50 MCG/ACT 16 GM NASAL SPRAY EACH NARE SCH (09:00)
[2017-02-21] MEDS: TAMSULOSIN HCL 0.4 MG CAP PO SCH (09:04)
[2017-02-21] MEDS: NIFEdipine 90 MG SUSTAINED RELEASE TAB PO SCH (09:04)
[2017-02-21] MEDS: PANTOPRAZOLE SOD 40 MG DELAYED RELEASE TAB PO SCH (09:05)
[2017-02-21] MEDS: PHENYTOIN SUSP 100 MG/4 ML CUP PO SCH ×2 (09:05→19:56)
[2017-02-21] MEDS: MEGESTROL ACETATE SUSP 400 MG/10 ML CUP PO SCH (09:05)
[2017-02-21] MEDS: guaiFENesin E.R. 600 MG TAB PO SCH ×2 (09:06→19:55)
[2017-02-21] MEDS: HEPARIN SODIUM - SQ 10,000 UNITS/ML VIAL SQ SCH ×2 (09:06→19:55)
--- NOTE | 2017-02-21 16:55 | HHI.HCPN ---
Reason for visit a. To assist with evaluation and management of symptoms including: dyspnea, weakness, malnutrition b. To assist medical decision maker(s) with: better understanding of current medical conditions; weighing benefits/burdens of medical treatment options; making medical treatment decisions. (Evangelina Watson) Subjective/Interval History Pt seen to follow up on dyspnea , goals, update to family. Palliative continues to follow pt weekly or as needed as condition evolves. Patient has remained stable, continuing XRT, has 4 treatments left of 35 total. (Has not been undergoing chemotherapy )CM/med attending exploring discharge options with patient, family. Pt has been working with PT to improve mobility, has been tolerating taking a few steps with walker. Some hypotension, lightheadedness with upright positioning, ambulation. Yesterday was reported increased congestion; repeat CXR Interval clearance of the left lower lobe infiltrate. Persistent consolidation and volume loss involving left upper lobe. Has remained comfortable on room air. + Voiding adequately, having BMs. Good intake of oral diet, continues to receive tube feeding supplement overnight. Patient seen in room , alert, nursing waiting room. He is alert, oriented, pleasant. Fairly reasonable insight into Hospital course---. Upon review of him and discharge planning process in place he indicates that he would like to try some rehabilitation possibly at [facility] after discussing with case management here, to get him a little bit stronger and more mobile, before the possibility of going home and then moving up to [place] to be with his family. He indicates that he has been told the radiation has helped break up some of the cancer, reviewed that it has certainly stabilized though has not cured his cancer. later call to SALOMÓN Hidalgo to provide update . (Evangelina Watson) Advance Directives Living Will: Completed, but not made available Health Care Surrogate: Copy in medical record (Evangelina Watson) Advance Directive Specifics Date completed: 12/17/16 Health Care Surrogate(s): Names son Elpidio Jaime as HCS (Evangelina Watson) Objective Vital Signs Date Time Temp Pulse Resp B/P Pulse Ox O2 Delivery O2 Flow Rate FiO2 02/21/17 12:27 98.2 110 20 127/69 97 02/21/17 08:56 98.5 109 20 122/67 94 02/21/17 08:00 Room Air 02/21/17 04:00 96.7 108 18 104/63 95 02/21/17 00:00 97.0 105 18 112/63 95 02/20/17 21:00 97 Room Air 21 02/20/17 21:00 108 02/20/17 19:37 98.4 114 19 110/68 97 Physical Exam CONSTITUTIONAL/GENERAL: This is a chronically ill appearing pt, no distress, alert, pleasant TUBES/LINES/DRAINS:pIV LUE, nasal cannula, +PEG tube CARDIOVASCULAR: Regular rate and rhythm, no murmurs. Peripheral pulses symmetric. RESPIRATORY/CHEST: Symmetric, unlabored respirations. + 2L NC. Clear to right, improved air movement to left, + coarse scattered rhonchi. GASTROINTESTINAL: Abdomen soft, non-tender, nondistended. No palpable masses. No guarding. Bowel sounds present.PEG tube clamped ,dressing clean/dry NEUROLOGICAL: Alert, orientedx3 . Pleasant and cooperative. Reasonable insight into hospitalization and conditions. Follows commands. Moves all 4 extremities with significant weakness PSYCHIATRIC: No obvious anxiety/depression. . (Evangelina Watson) Diagnostic Tests Laboratory Laboratory Tests Test 02/20/17 05:58 White Blood Count 6.4 TH/MM3 (4.0-11.0) Red Blood Count 2.68 MIL/MM3 (4.50-5.90) Hemoglobin 7.5 GM/DL (13.0-17.0) Hematocrit 23.1 % (39.0-51.0) Mean Corpuscular Volume 86.4 FL (80.0-100.0) Mean Corpuscular Hemoglobin 28.0 PG (27.0-34.0) Mean Corpuscular Hemoglobin 32.4 % Concent (32.0-36.0) Red Cell Distribution Width 16.4 % (11.6-17.2) Platelet Count 311 TH/MM3 (150-450) Mean Platelet Volume 7.0 FL (7.0-11.0) Neutrophils (%) (Auto) 69.5 % (16.0-70.0) Lymphocytes (%) (Auto) 11.6 % (9.0-44.0) Monocytes (%) (Auto) 10.4 % (0.0-8.0) Eosinophils (%) (Auto) 7.5 % (0.0-4.0) Basophils (%) (Auto) 1.0 % (0.0-2.0) Neutrophils # (Auto) 4.4 TH/MM3 (1.8-7.7) Lymphocytes # (Auto) 0.7 TH/MM3 (1.0-4.8) Monocytes # (Auto) 0.7 TH/MM3 (0-0.9) Eosinophils # (Auto) 0.5 TH/MM3 (0-0.4) Basophils # (Auto) 0.1 TH/MM3 (0-0.2) CBC Comment AUTO DIFF Differential Comment AUTO DIFF CONFIRMED Ovalocytes 1+ (NORMAL) Sodium Level 140 MEQ/L (136-145) Potassium Level 4.3 MEQ/L (3.5-5.1) Chloride Level 109 MEQ/L (98-107) Carbon Dioxide Level 23.3 MEQ/L (21.0-32.0) Anion Gap 8 MEQ/L (5-15) Blood Urea Nitrogen 50 MG/DL (7-18) Creatinine 1.27 MG/DL (0.60-1.30) Estimat Glomerular Filtration 56 ML/MIN (>89) Rate Random Glucose 117 MG/DL (74-106) Calcium Level 8.3 MG/DL (8.5-10.1) Total Bilirubin 0.2 MG/DL (0.2-1.0) Aspartate Amino Transf 21 U/L (15-37) (AST/SGOT) Alanine Aminotransferase 41 U/L (12-78) (ALT/SGPT) Alkaline Phosphatase 99 U/L (45-117) Total Protein 6.5 GM/DL (6.4-8.2) Albumin 1.9 GM/DL (3.4-5.0) (Evangelina Watson [facility]) Result Diagram: 02/20/17 0558 02/20/17 0558 Imaging Last Impressions Chest X-Ray 02/20/17 0000 Signed Impressions: Service Date/Time: February 17:33 - CONCLUSION: 1. Interval clearance of the left lower lobe infiltrate. 2. Persistent consolidation and volume loss involving left upper lobe. Nikolas Roy Jr., MD Abdomen X-Ray 01/30/17 0000 Signed Impressions: Service Date/Time: January 10:55 - CONCLUSION: 1. No evidence for leakage or obstruction after injection of gastrostomy tube. Ken Crandall MD Central Venous Line 01/14/17 1150 Signed Impressions: Service Date/Time: Saturday, January 14, 2017 11:50 - CONCLUSION: Uncomplicated Permcath removal. Beto Perry MD Lower Extremity Ultrasound 01/06/17 0000 Signed Impressions: Service Date/Time: Friday, January 06, 2017 09:02 - CONCLUSION: Normal examination. Shawn Reyes MD Upper Extremity Ultrasound 12/11/16 1506 Signed Impressions: Service Date/Time: Sunday, December 11, 2016 18:00 - CONCLUSION: Superficial thrombophlebitis, extensive edema and nonspecific fluid collections in the subcutaneous tissues. Shawn Reyes MD Head CT 12/11/16 0000 Signed Impressions: Service Date/Time: Sunday, December 11, 2016 20:00 - CONCLUSION: Slight atrophic and small vessel ischemic changes without any evidence for acute hemorrhage or mass effect. Shawn Reyes MD Renal Ultrasound 12/09/16 0000 Signed Impressions: Service Date/Time: Friday, December 09, 2016 15:16 - CONCLUSION: 1. 8.4 cm mass lesion at the base of the bladder. This may represent an intrinsic mass of the bladder versus a prominent anterior lobe of the prostate. 2. Otherwise, urinary bladder is partially decompressed with a Lipscomb catheter. 3. Both kidneys are sonographically normal. Roby Horta MD (Evangelina Watson [facility]) Assessment and Plan Disease Oriented Problem List: (1) Mass of left lung Comment: +SCC (2) Acute renal failure (3) Squamous cell lung cancer (4) Bladder mass (5) Anemia (6) UTI (urinary tract infection) Comment: awaiting BX/resection when stable (7) Severe muscle deconditioning (8) Acute respiratory failure Comment: resolved Symptom Scale: (1) Malnutrition (2) Dyspnea (3) Weakness (4) Pain Pertinent Non-Medical Issues Psychosocial:. 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 Lives at home alone. Supported by 4 sons, 2 in [place], 2 in [place] Spiritual: Legal:pt appears able to participate in decision making. Reports his son Elpidio is HCS, they will provide copies. Pt appears to have simple understanding of things and wishes to include his son in medical updates and decision making . Ethical issues impacting care: Important Contacts Son Marly Landeros- ([facility]) Elpidio Jaime [phone] (Gwen, DIL [phone]) Son Marly Landeros - Soham Jaime [phone] . Prognosis This patient has a new diagnosis of squamous cell carcinoma, s/p mass resection , intubation and arrest. He subsequently suffered acute renal failure and remains on hemodialysis. He has new findings of a large bladder mass, concerning for cancer, however cannot have additional diagnostic procedures until acute condition improves. It is possible his cancer could be treated, however his acute issues need to improve and his overall performance status needs to improve in order to obtain staging, and possible treatment. He has multiple issues and is severely deconditioned, it may take significant time for him to improve enough for treatment and during that time he remains high risk for further complications and setbacks. Code Status: Full Code Plan * Legal decision maker:pt appears able to participate in decision making. Reports his son Elpidio is HCS, they will provide copies. Pt appears to have simple understanding of things and wishes to include his son in medical updates and decision making . [facility] completed 12/17/16 naming son Elpidio Jaime as [facility] * Goals: GOALS HAVE BEEN AGGRESSIVE, pt wants to try to get needed resources in line in order to to go back home to [place] with his son, and possible obtain chemotherapy to treat his cancer and have more time. Patient's son and healthcare surrogate Elpidio is supportive of the patient's wishes. They're working to try to get him up to [place] closer to them. I provided an update to son 12/19 -- 01/13/17- Pt off unit. need to re address [facility], hospice has been consulted during [facility] [place] earlier this am. Could d/c w hospice, however would not be able to cont radiation on hospice. 1400 patient seen later in the afternoon after his return from radiation. Has now completed 4 of 25 treatments. He endorses feeling more tired and out of sorts in the past day or so. No specific complaints otherwise. He affirms DNR status. He is not certain if he wishes to proceed with hospice, or if he wishes to remain in the hospital and attempt to continue radiation treatments, other aggressive treatments short of resuscitation. He is going to talk more with his son Elpidio when he arrives later today to make further decisions. Palliative plans to follow-up again with him tomorrow 01/14 -- 01/14/17 met w pt, son, They have had ongoing conversations RE continuing radiation/semi aggressive tx short of resuscitation, vs transition to hospice and d/c out of the hospital to get up to [place] with family. Pt wishes to continue to try to complete radiation, he understands remains high risk for complications /resp issues. Plan is to enroll in hospice, after completing radiation. Wants to remain DNR. -- 01/22/17 [facility] w [facility]. He is A&O. goals remain aggressive. Feeling well overall. Wants to work with PT. --01/31/17: goals remain aggressive. update to family. --02/07/17- palliative continues to follow patient weekly and as needed. Discuss goals, discharge planning with patient and family today. Limited options, chemotherapy is not an option for the patient at this point, unlikely to become an option due to severely debilitated status. Option to discharge locally with hospice and try to pursue transition to [place] with an accepting hospice up there versus pursue rehabilitation locally, which would be high risk for complications/setbacks/hospital readmission. Patient and family to continue discuss over the next week. -- 02/11/17 - ongoing discussions w pt, family RE discharge planning/condition /prognosis, limited options. Wants to cont aggressive tx while completing XRT here in the hospital. Still working with family regarding getting up to [place] where he will live with his son, ongoing discussions RE home with hospice locally vs home with other assistance son + (home health??) and then transition to [place]. --02/21/17 ongoing discussions with patient and family regarding discharge planning and conditions. Initially there have been conversations regarding transition to hospice and up to [place]. However family and patient now discussions about the possibility of short-term rehabilitation to maximize patient's limited mobility prior to going home and then up to [place]. * CODE STATUS: DNR * SYMPTOMS: --dyspnea- s/p acute resp failure- prolonged intubation, resolved. Has been on nasal cannula O2, PRN nebulizers-- denies and shortness of breath; earlier today with episode of desaturation, dyspnea. CXR appears unchanged, essentially white out of left lung. Episode of respiratory distress last month , required transfer to ICU and BiPAP, now out of ICU. currently maintaining on nasal cannula - has elected NOT to use B IPAP anymore. HALICAT last month due to hemoptysis, desaturation, pt elected NO intubation, DNR, comfort measures only, HOSPICE consulted at that time, though patient did not elect hospice. Goal to Continue to pursue aggressive treatment until completion of radiation. --malnutrition- +PEG, TF at night, appetite fair/good -- eating 50%-100% of most recent meals. --weakness/deconditioning - in hospital since 10/22 -- severely deconditioned- -> PT working with, pt with limited strength to even sit on side of bed.Pt reports difficulty feeding self due to weakness.Continues to work with OT/PT though clinical condition limits his ability to participate in prolonged therapy -- PT continues to work with pt --Dysphagia- post ST eval,tolerating thin liquids, probably remains ongoing risk for aspiration -- intermittent constipation- on occasional prn opiates; has prn bowel regimen. BM every few days, difficult recently per pt, rec. use of PRNs- if ineffective consider scheduled dosing of senna instead of PRN. -- pain-- infrequent chest wall pain (likely 2/2 disease process) has prn morphine, norco, infrequent use (last use 02/10), none required today.cont to evaluate. * Palliative care will continue to follow during hospital course as condition evolves, to assist patient/decision-maker with understanding of medical conditions, weighing benefits/burdens of treatment options, for clarification of goals of treatment. Additionally will assist with any symptoms of palliative concern (Evangelina Watson) Collaborating Comments Discussed with [facility], agree with assessment and plan (Santhosh Roblero MD) Evangelina Watson Feb 21, 2017 16:55 Santhosh Roblero MD Mar 05, 2017 13:41
--- NOTE | 2017-02-21 18:08 | HHI.PR ---
Subjective Remarks Follow-up visit lung cancer with radiation, acute renal failure, bladder mass, physical deconditioning. Patient seen and examined today. Talking on the phone and family member. Reports is doing well. He just had radiation this morning. States he has 4 more radiation to go. Denies any shortness of breath , dyspnea. States yesterday he had some shortness of breath because he has been exercising and ambulating with physical therapy. He feels better today. Denies pain and discomfort. Denies chest pain, palpitations, headaches, dizziness. Denies fevers, chills, n/v/d. Denies hematuria, dysuria. Objective Vitals Vital Signs Date Time Temp Pulse Resp B/P Pulse Ox O2 Delivery O2 Flow Rate FiO2 02/21/17 12:27 98.2 110 20 127/69 97 02/21/17 08:56 98.5 109 20 122/67 94 02/21/17 08:00 Room Air 02/21/17 04:00 96.7 108 18 104/63 95 02/21/17 00:00 97.0 105 18 112/63 95 02/20/17 21:00 97 Room Air 21 02/20/17 21:00 108 02/20/17 19:37 98.4 114 19 110/68 97 I/O 02/20/17 02/20/17 02/20/17 02/21/17 02/21/17 02/21/17 07:00 15:00 23:00 07:00 15:00 23:00 Intake Total 2692 ml 641 ml 240 ml Output Total 500 ml 310 ml 240 ml 1140 ml Balance 2192 ml 331 ml 0 ml -1140 ml Intake Oral 480 ml 440 ml 240 ml IV Total 1452 ml 201 ml Tube Feeding 760 ml Output Urine Total 500 ml 310 ml 240 ml 1140 ml # Bowel Movements 1 Result Diagram: 02/20/17 0558 02/20/17 0558 Objective Remarks Last Impressions Chest X-Ray 02/20/17 0000 Signed Impressions: Service Date/Time: February 17:33 - CONCLUSION: 1. Interval clearance of the left lower lobe infiltrate. 2. Persistent consolidation and volume loss involving left upper lobe. Nikolas Roy Jr., MD Abdomen X-Ray 01/30/17 0000 Signed Impressions: Service Date/Time: January 10:55 - CONCLUSION: 1. No evidence for leakage or obstruction after injection of gastrostomy tube. Ken Crandall MD Central Venous Line 01/14/17 1150 Signed Impressions: Service Date/Time: Saturday, January 14, 2017 11:50 - CONCLUSION: Uncomplicated Permcath removal. Beto Perry MD Lower Extremity Ultrasound 01/06/17 0000 Signed Impressions: Service Date/Time: Friday, January 06, 2017 09:02 - CONCLUSION: Normal examination. Shawn Reyes MD Upper Extremity Ultrasound 12/11/16 1506 Signed Impressions: Service Date/Time: Sunday, December 11, 2016 18:00 - CONCLUSION: Superficial thrombophlebitis, extensive edema and nonspecific fluid collections in the subcutaneous tissues. Shawn Reyes MD Head CT 12/11/16 0000 Signed Impressions: Service Date/Time: Sunday, December 11, 2016 20:00 - CONCLUSION: Slight atrophic and small vessel ischemic changes without any evidence for acute hemorrhage or mass effect. Shawn Reyes MD Renal Ultrasound 12/09/16 0000 Signed Impressions: Service Date/Time: Friday, December 09, 2016 15:16 - CONCLUSION: 1. 8.4 cm mass lesion at the base of the bladder. This may represent an intrinsic mass of the bladder versus a prominent anterior lobe of the prostate. 2. Otherwise, urinary bladder is partially decompressed with a Lipscomb catheter. 3. Both kidneys are sonographically normal. Roby Horta MD Procedures 12/11- EGD- esophagitis, gastritis, duodenitis PEG placement Date of Insertion: January 24, 2017 A/P Problem List: (1) Bronchiolar obstruction ICD Code: J98.09 Status: Acute (2) Mass of left lung ICD Code: R91.8 Status: Acute (3) Squamous cell lung cancer ICD Code: C34.90 Status: Acute (4) Severe muscle deconditioning ICD Code: R29.898 Status: Acute (5) Anemia ICD Code: D64.9 Status: Acute (6) Acute respiratory failure ICD Code: J96.00 Status: Acute (7) Hemoptysis ICD Code: R04.2 Status: Acute (8) Hypoxia ICD Code: R09.02 Status: Acute Assessment and Plan 71 Y/O male with: Respiratory failure/Left bronchial mass: - Patient was at [facility]. He underwent bronchoscopy with debulking of a large mass involving the left mainstem bronchus The left main bronchus was stented. The hemoptysis was controlled and he was eventually extubated. - Patient undergoing radiation. Setback on 01/13. Went into respiratory distress. Patient decided to change to DNR status. He was considering hospice. ongoing discussion with his son. Appreciate palliative care assisting. Patient resumed radiation. Wish to remain DNR. Patient planning to finished with radiation and then go home, probably with hospice. Ultimately will be moving to [place]. - O2 supplementation as needed to keep O2 sats > 92%. Currently on RA. DuoNeb's when necessary. Encourage incentive spirometry use. - Pain control. Acute renal failure - Renal function stabilized. Permacath removed. Nephrology signed off. - SURGICAL SERVICES ASSISTANT improving 1.56 --> 1.29 --> 1.16 Iron deficiency anemia, acute on chronic - Hemoccult positive, consult GI, appreciate recommendations. - Per GI will hold EGD/colonoscopy for now, PEG placed with overnight TFs - Transfuse if hemoglobin <7. 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 Physical deconditioning - Encourage oral intake. - Megace to help with appetite. - Physical therapy as tolerated. Hypertension: Continue atenolol 25 mg po bid BPH: continue doxazosin 8 mg qhs Seizure: Continue Dilantin. Seizure precautions. Stable. Physical deconditioning conditioning. PT consult DVT prophylaxis: SCD/TEDs Discussed with patient, nursing, and Dr. Degroot Problem Qualifiers (1) Squamous cell lung cancer: Qualified Code: C34.92 - Squamous cell lung cancer, left (2) Anemia: Beth Maurice Feb 21, 2017 18:08
--- NOTE | 2017-02-21 18:21 | HHI.PR ---
Subjective Remarks On 3LNC CXR improved aeration of LLL Breathing better No fever Had radiation treatment. No new complaint Appetite still poor " I am not a big eater" Objective Vital Signs Vital Signs Date Time Temp Pulse Resp B/P Pulse Ox O2 Delivery O2 Flow Rate FiO2 02/21/17 12:27 98.2 110 20 127/69 97 02/21/17 08:56 98.5 109 20 122/67 94 02/21/17 08:00 Room Air 02/21/17 04:00 96.7 108 18 104/63 95 02/21/17 00:00 97.0 105 18 112/63 95 02/20/17 21:00 97 Room Air 21 02/20/17 21:00 108 02/20/17 19:37 98.4 114 19 110/68 97 I/O 02/20/17 02/20/17 02/20/17 02/21/17 02/21/17 02/21/17 07:00 15:00 23:00 07:00 15:00 23:00 Intake Total 2692 ml 641 ml 240 ml Output Total 500 ml 310 ml 240 ml 1140 ml Balance 2192 ml 331 ml 0 ml -1140 ml Intake Oral 480 ml 440 ml 240 ml IV Total 1452 ml 201 ml Tube Feeding 760 ml Output Urine Total 500 ml 310 ml 240 ml 1140 ml # Bowel Movements 1 Result Diagram: 02/20/17 0558 02/20/17 0558 Objective Remarks GENERAL: Patient is lying in bed in NAD SKIN: Warm and dry. HEAD: Normocephalic. EYES: No scleral icterus. No injection or drainage. NECK: Supple, trachea midline. No JVD or lymphadenopathy. CARDIOVASCULAR: Regular rate and rhythm without murmurs, gallops, or rubs. RESPIRATORY: Breath sounds equal bilaterally. No accessory muscle use. GASTROINTESTINAL: Abdomen soft, non-tender, nondistended. MUSCULOSKELETAL: No cyanosis, or edema. BACK: Nontender without obvious deformity. No CVA tenderness. 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 Supplement 02 to keep sat >90% Aerosol nebs Physical Therapy. On radiation treatment Valeriy Wilkins MD Feb 21, 2017 18:20
[2017-02-21] MEDS: DOXAZOSIN MESYLATE 4 MG TAB PO SCH (19:55)
[2017-02-21] MEDS: ATORVASTATIN 40 MG TAB PO SCH (19:55)
[2017-02-22] VITALS (8 sets, daily range): BP systolic 108–119; BP diastolic 61–72; PULSE 106–114; RESP 18–20; TEMP 98.6–100.3; O2SAT 94–99
[2017-02-22] MEDS: cloNIDine HCL 0.1 MG TAB PO SCH ×3 (05:44→22:00)
[2017-02-22] MEDS: FLUTICASONE PROPIONATE 50 MCG/ACT 16 GM NASAL SPRAY EACH NARE SCH (09:00)
[2017-02-22] MEDS: SODIUM CHLORIDE 0.9% FLUSH 5 ML FLUSH FLUSH SCH ×2 (09:00→19:31)
[2017-02-22] MEDS: MEGESTROL ACETATE SUSP 400 MG/10 ML CUP PO SCH (11:12)
[2017-02-22] MEDS: FERROUS SULFATE 300 MG /5ML UDC PO SCH (11:12)
[2017-02-22] MEDS: TAMSULOSIN HCL 0.4 MG CAP PO SCH (11:13)
[2017-02-22] MEDS: PANTOPRAZOLE SOD 40 MG DELAYED RELEASE TAB PO SCH (11:13)
[2017-02-22] MEDS: HEPARIN SODIUM - SQ 10,000 UNITS/ML VIAL SQ SCH ×2 (11:13→19:30)
[2017-02-22] MEDS: guaiFENesin E.R. 600 MG TAB PO SCH ×2 (11:14→19:29)
[2017-02-22] MEDS: PHENYTOIN SUSP 100 MG/4 ML CUP PO SCH ×2 (11:14→19:31)
[2017-02-22] MEDS: NIFEdipine 90 MG SUSTAINED RELEASE TAB PO SCH (11:17)
--- NOTE | 2017-02-22 13:19 | HHI.PR ---
Subjective Remarks Follow-up visit lung cancer with radiation, acute renal failure, bladder mass, physical deconditioning. Patient seen and examined today. Reports is doing well. Stated since it it the weekend he is not undergoing radiation treatment or physical therapies. Pt reported he is using his walker for balance and to take " a couple of steps forwards and back wards" from his bed. Stated he has 4 more radiation treatments remaining. He said he was uncertain if he is to go to [facility] after radiation is completed. 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 Denied shortness of breath, dyspnea, pain and discomfort, chest pain, palpitations, headaches, dizziness, fevers, chills, n/v/d, hematuria, dysuria. Objective Vitals Vital Signs Date Time Temp Pulse Resp B/P Pulse Ox O2 Delivery O2 Flow Rate FiO2 02/22/17 08:48 98.8 113 20 119/72 95 02/22/17 04:00 98.6 114 18 110/61 96 02/22/17 00:00 98.6 113 18 116/71 95 02/21/17 21:00 106 02/21/17 21:00 93 Room Air 21 02/21/17 19:51 100.0 112 19 113/67 96 02/21/17 16:00 98.6 111 20 114/65 95 I/O 02/21/17 02/21/17 02/21/17 02/22/17 02/22/17 02/22/17 07:00 15:00 23:00 07:00 15:00 23:00 Intake Total 480 ml 480 ml Output Total 1140 ml 650 ml 940 ml Balance -1140 ml -170 ml -460 ml Intake Oral 480 ml 480 ml Output Urine Total 1140 ml 650 ml 940 ml # Bowel Movements 1 Result Diagram: 02/20/17 0558 02/20/17 0558 Objective Remarks GENERAL: Pt encountered laying a bed, awake and alert, pleasant and cooperative. SKIN: Warm and dry. HEAD: Normocephalic. EYES: No scleral icterus. No injection or drainage. NECK: Supple, trachea midline. No lymphadenopathy. CARDIOVASCULAR: Regular rate and rhythm without murmurs, gallops, or rubs. RESPIRATORY: Breath sounds were equal bilaterally. Bilateral wheezes of yesterday were absent today. No accessory muscle use. GASTROINTESTINAL: Abdomen soft, non-tender, nondistended. Feeding tube present. MUSCULOSKELETAL: No cyanosis, or edema. PSYCHIATRIC: A&Ox 3, pleasant, no overt signs of depression and/or anxiety. Procedures 12/11- EGD- esophagitis, gastritis, duodenitis PEG placement Medications and IVs Current Medications Medications (Trade) Dose Ordered Sig/Luis Carlos Route Start Time Stop Time Status Last Admin (NS Flush) 2 ml UNSCH PRN FLUSH 12/05/16 17:00 (NS Flush) 2 ml BID FLUSH 12/05/16 21:00 02/22/17 09:00 (Zofran Inj) 4 mg Q6H PRN IVP 12/05/16 18:00 02/04/17 20:28 (Dulcolax Supp) 10 mg DAILY PRN [place] 12/05/16 18:00 (Narcan Inj) 0.4 mg UNSCH PRN IV 12/05/16 17:00 (Ferrous Sulfate Liq) 300 mg DAILY PO 12/06/16 09:00 02/22/17 11:12 (Lipitor) 40 mg HS PO 12/05/16 21:00 02/21/17 19:55 (Lasix Liq) 40 mg DAILY TUBE 12/06/16 09:00 Hold 12/20/16 08:50 (Jacinda-Colace) 2 tab BID PRN PO 12/05/16 19:45 02/12/17 20:19 Lactulose 30 ml 30 ml TID PRN PO 12/05/16 19:45 02/11/17 14:18 (NS 1000 ml Inj) 1,000 ml @ 0 mls/hr Q0M PRN IV 12/06/16 12:11 12/12/16 09:33 Heparin Sodium (Porcine) 8000 units 8,000 units UNSCH PRN IVF 12/06/16 12:15 Sodium Chloride 1,000 ml @ 200 mls/hr Q5H PRN IV 12/06/16 12:11 (NS 1000 ml Inj) 1,000 ml @ 0 mls/hr Q0M PRN IV 12/06/16 12:11 (Mannitol Inj) 12.5 gm UNSCH PRN IV 12/06/16 12:15 (Albumin 25% Inj) 25 gm UNSCH PRN IV 12/06/16 12:15 (NS Flush) 5 ml UNSCH PRN IVF 12/06/16 12:15 (Heparin Inj) UNSCH PRN .XX 12/06/16 12:15 12/14/16 16:39 (Gentamicin (Dialysis) Inj) 20 mg UNSCH PRN IV 12/06/16 12:15 12/14/16 16:39 (Zofran Inj) 4 mg UNSCH PRN IV 12/06/16 12:15 02/13/17 19:05 (Tylenol) 650 mg UNSCH PRN PO 12/06/16 12:15 12/14/16 07:54 (Benadryl) 25 mg UNSCH PRN PO 12/06/16 12:15 (Nitrostat Sl) 0.4 mg UNSCH PRN SL 12/06/16 12:15 (Catapres) 0.1 mg UNSCH PRN PO 12/06/16 12:15 12/19/16 06:27 (Epogen Inj) 10,000 units UNSCH PRN IV 12/06/16 12:15 12/14/16 16:39 (Gelfoam 12 Mm/7 Mm Top) 1 foam UNSCH PRN TOP 12/06/16 12:15 (Megace Liq) 400 mg DAILY PO 12/08/16 09:00 02/22/17 11:12 (Heparin Inj) 5,000 units Q12HR SQ 12/08/16 21:00 Hold 01/13/17 09:37 (Dilantin Liq) 300 mg Q12HR PO 12/08/16 21:00 02/22/17 11:14 (Flonase Evan Spr) 2 spray DAILY EACH NARE 12/18/16 12:00 02/20/17 08:28 (Protonix) 40 mg DAILY PO 12/25/16 10:30 02/22/17 11:13 Miscellaneous Information Patient in critical care unit? Ass... Q361D .XX 12/25/16 22:30 12/25/16 22:30 (Procardia Xl) 90 mg DAILY PO 12/27/16 09:00 02/22/17 11:17 (Pill Splitter) 1 ea UNSCH PRN OTHER 12/26/16 19:00 12/27/16 10:33 (Catapres) 0.1 mg Q8HR PO 01/03/17 22:00 02/21/17 14:00 (Morphine Inj) 2 mg Q3H PRN IV PUSH 01/13/17 05:15 02/15/17 10:50 (Ativan Inj) 1 mg Q4H PRN IV PUSH 01/13/17 05:15 02/04/17 20:30 (Lasix Inj) 20 mg Q6HR PRN IV PUSH 01/13/17 05:15 (Milk Of Magnesia Liq) 30 ml BID PRN PO 01/19/17 10:45 02/14/17 05:54 (Tums Chew) 500 mg Q6H PRN CHEW 01/27/17 15:00 02/10/17 20:31 (Iselin 5-325 Mg) 1 tab Q4H PRN PO 01/29/17 08:15 02/18/17 08:26 (Iselin 5-325 Mg) 2 tab Q4H PRN PO 01/29/17 08:15 02/10/17 21:35 (Cardura) 8 mg HS PO 01/29/17 21:00 02/21/17 19:55 (Mucinex Er) 600 mg BID PO 02/01/17 21:00 02/22/17 11:14 (Flomax) 0.4 mg DAILY PO 02/06/17 18:45 02/22/17 11:13 (Heparin Inj) 5,000 units Q12HR SQ 02/09/17 21:00 02/22/17 11:13 Urinary Catheter: No Date of Insertion: January 24, 2017 Vascular Central Line Catheter: No A/P Problem List: (1) Bronchiolar obstruction ICD Code: J98.09 Status: Acute (2) Mass of left lung ICD Code: R91.8 Status: Acute (3) Squamous cell lung cancer ICD Code: C34.90 Status: Acute (4) Severe muscle deconditioning ICD Code: R29.898 Status: Acute (5) Anemia ICD Code: D64.9 Status: Acute (6) Acute respiratory failure ICD Code: J96.00 Status: Acute (7) Hemoptysis ICD Code: R04.2 Status: Acute (8) Hypoxia ICD Code: R09.02 Status: Acute Assessment and Plan 71 Y/O male with: Respiratory failure/Left bronchial mass: Patient was at [facility]. He underwent bronchoscopy with debulking of a large mass involving the left mainstem bronchus The left main bronchus was stented. The hemoptysis was controlled and he was eventually extubated. - Patient undergoing radiation. Setback on 01/13. Went into respiratory distress. Patient decided to change to DNR status. He was considering hospice. ongoing discussion with his son. Appreciate palliative care assisting. Patient resumed radiation. Wish to remain DNR. Patient planning to finished with radiation and then go home, probably with hospice. Ultimately will be moving to [place] - O2 supplementation. Currently stable without O2. - Pain control Acute renal failure Renal function stabilized. Permacath removed. Nephrology signed off. -Upward trend noted on BUN and creatinine over recent labs, monitor. -02/19/17: Creatinine elevation noted, IVF started, monitor labs Patient with anemia HGB 6.6 on 12/06/16. FOBT positive, consult GI, appreciate recommendations. HGB 12/07/16 of 8.7. Monitor and transfuse as need. Nestor count. Per GI will hold EGD/colonoscopy for now, PEG placed with overnight TFs Megace to help with appetite. 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 Physical deconditioning: Secondary to comorbid conditions above. High risk for continuing decline. - Encourage oral intake. - PT as tolerated. HTN- Continue atenolol 25 mg po bid BPH continue doxazosin 8 mg qhs Seizure- Continue Dilantin. Seizure precautions. Stable. Physical deconditioning conditioning. PT consult DVT ppx with SCD/TEDs Case discussed with pt, RN (Radha), and Dr. Degroot. Discharge Planning Continue radiation. Pt reports wanting to go to [place], hospice to be contacted closer to discharge. Problem Qualifiers (1) Squamous cell lung cancer: Qualified Code: C34.92 - Squamous cell lung cancer, left (2) Anemia: Júnior Garcia Jr. Feb 22, 2017 13:19
--- NOTE | 2017-02-22 13:40 | HHI.PR ---
Subjective Remarks On 3LNC CXR improved aeration of LLL Breathing better No fever Objective Vital Signs Vital Signs Date Time Temp Pulse Resp B/P Pulse Ox O2 Delivery O2 Flow Rate FiO2 02/22/17 12:00 98.7 108 20 108/67 94 02/22/17 08:48 98.8 113 20 119/72 95 02/22/17 08:00 113 02/22/17 08:00 Room Air 2.00 21 02/22/17 04:00 98.6 114 18 110/61 96 02/22/17 00:00 98.6 113 18 116/71 95 02/21/17 21:00 106 02/21/17 21:00 93 Room Air 21 02/21/17 19:51 100.0 112 19 113/67 96 02/21/17 16:00 98.6 111 20 114/65 95 I/O 02/21/17 02/21/17 02/21/17 02/22/17 02/22/17 02/22/17 07:00 15:00 23:00 07:00 15:00 23:00 Intake Total 480 ml 480 ml Output Total 1140 ml 650 ml 940 ml Balance -1140 ml -170 ml -460 ml Intake Oral 480 ml 480 ml Output Urine Total 1140 ml 650 ml 940 ml # Bowel Movements 1 Result Diagram: 02/20/17 0558 02/20/17 0558 Objective Remarks GENERAL: Patient is lying in bed in NAD SKIN: Warm and dry. HEAD: Normocephalic. EYES: No scleral icterus. No injection or drainage. NECK: Supple, trachea midline. No JVD or lymphadenopathy. CARDIOVASCULAR: Regular rate and rhythm without murmurs, gallops, or rubs. RESPIRATORY: Breath sounds equal bilaterally. No accessory muscle use. GASTROINTESTINAL: Abdomen soft, non-tender, nondistended. MUSCULOSKELETAL: No cyanosis, or edema. BACK: Nontender without obvious deformity. No CVA tenderness. 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 Supplement 02 to keep sat >90% Aerosol nebs Physical Therapy. Valeriy Wilkins MD Feb 22, 2017 13:40
[2017-02-22] MEDS: ATORVASTATIN 40 MG TAB PO SCH (19:30)
[2017-02-22] MEDS: DOXAZOSIN MESYLATE 4 MG TAB PO SCH (19:30)
[2017-02-23] VITALS (8 sets, daily range): BP systolic 98–125; BP diastolic 63–73; PULSE 102–122; RESP 18–20; TEMP 96.5–98.7; O2SAT 93–98
[2017-02-23] MEDS: cloNIDine HCL 0.1 MG TAB PO SCH ×3 (04:24→20:51)
[2017-02-23] MEDS: PANTOPRAZOLE SOD 40 MG DELAYED RELEASE TAB PO SCH (08:02)
[2017-02-23] MEDS: HEPARIN SODIUM - SQ 10,000 UNITS/ML VIAL SQ SCH ×2 (08:02→20:52)
[2017-02-23] MEDS: TAMSULOSIN HCL 0.4 MG CAP PO SCH (08:02)
[2017-02-23] MEDS: MEGESTROL ACETATE SUSP 400 MG/10 ML CUP PO SCH (08:03)
[2017-02-23] MEDS: PHENYTOIN SUSP 100 MG/4 ML CUP PO SCH ×2 (08:03→20:51)
[2017-02-23] MEDS: guaiFENesin E.R. 600 MG TAB PO SCH ×2 (08:03→20:51)
[2017-02-23] MEDS: NIFEdipine 90 MG SUSTAINED RELEASE TAB PO SCH (08:03)
[2017-02-23] MEDS: FERROUS SULFATE 300 MG /5ML UDC PO SCH (08:03)
[2017-02-23] MEDS: FLUTICASONE PROPIONATE 50 MCG/ACT 16 GM NASAL SPRAY EACH NARE SCH (08:03)
[2017-02-23] MEDS: SODIUM CHLORIDE 0.9% FLUSH 5 ML FLUSH FLUSH SCH ×2 (08:04→20:52)
--- NOTE | 2017-02-23 10:22 | HHI.PR ---
Subjective Remarks Follow-up visit lung cancer with radiation, acute renal failure, bladder mass, physical deconditioning. Patient seen and examined today. Denies any new complaints. Denies any fever, chills, cough, shortness of breath, chest pain, palpitations, abdominal pain, n/v or dysuria. Tolerating PO intake. Does state he has had some coughing and clear phlegm. Patient is asking about discharge planning. Questions answered regarding process and time frame. Patient finishes radiation on 02/27. Objective Vitals Vital Signs Date Time Temp Pulse Resp B/P Pulse Ox O2 Delivery O2 Flow Rate FiO2 02/23/17 08:41 96.6 117 18 113/69 95 02/23/17 08:38 Room Air 02/23/17 04:00 98.6 118 18 98/63 96 02/23/17 00:00 98.7 122 19 103/64 93 02/22/17 21:00 97 Room Air 21 02/22/17 21:00 107 02/22/17 20:00 100.3 112 19 108/69 97 02/22/17 16:32 98.7 106 20 108/65 99 02/22/17 12:00 98.7 108 20 108/67 94 I/O 02/22/17 02/22/17 02/22/17 02/23/17 02/23/17 02/23/17 07:00 15:00 23:00 07:00 15:00 23:00 Intake Total 480 ml 720 ml 440 ml 240 ml Output Total 940 ml 300 ml 1100 ml 1000 ml Balance -460 ml 420 ml -660 ml -760 ml Intake Oral 480 ml 720 ml 440 ml 240 ml Output Urine Total 940 ml 300 ml 1100 ml 1000 ml # Bowel Movements 0 0 Result Diagram: 02/20/17 0558 02/20/17 0558 Imaging Last Impressions Chest X-Ray 02/20/17 0000 Signed Impressions: Service Date/Time: February 17:33 - CONCLUSION: 1. Interval clearance of the left lower lobe infiltrate. 2. Persistent consolidation and volume loss involving left upper lobe. Nikolas Roy Jr., MD Abdomen X-Ray 01/30/17 0000 Signed Impressions: Service Date/Time: January 10:55 - CONCLUSION: 1. No evidence for leakage or obstruction after injection of gastrostomy tube. Ken Crandall MD Central Venous Line 01/14/17 1150 Signed Impressions: Service Date/Time: Saturday, January 14, 2017 11:50 - CONCLUSION: Uncomplicated Permcath removal. Beto Perry MD Lower Extremity Ultrasound 01/06/17 0000 Signed Impressions: Service Date/Time: Friday, January 06, 2017 09:02 - CONCLUSION: Normal examination. Shawn Reyes MD Upper Extremity Ultrasound 12/11/16 1506 Signed Impressions: Service Date/Time: Sunday, December 11, 2016 18:00 - CONCLUSION: Superficial thrombophlebitis, extensive edema and nonspecific fluid collections in the subcutaneous tissues. Shawn Reyes MD Head CT 12/11/16 0000 Signed Impressions: Service Date/Time: Sunday, December 11, 2016 20:00 - CONCLUSION: Slight atrophic and small vessel ischemic changes without any evidence for acute hemorrhage or mass effect. Shawn Reyes MD Renal Ultrasound 12/09/16 0000 Signed Impressions: Service Date/Time: Friday, December 09, 2016 15:16 - CONCLUSION: 1. 8.4 cm mass lesion at the base of the bladder. This may represent an intrinsic mass of the bladder versus a prominent anterior lobe of the prostate. 2. Otherwise, urinary bladder is partially decompressed with a Lipscomb catheter. 3. Both kidneys are sonographically normal. Roby Horta MD Objective Remarks GENERAL: Well-nourished, well-developed pleasant male patient in NAD lying in bed comfortably. SKIN: Warm and dry. No rash. HEENT: Normocephalic. Atraumatic. Pupils equal and round. Mucous membranes pink and moist. NECK: Supple. Trachea midline. CARDIOVASCULAR: Regular rate and rhythm. S1, S2 noted. No murmur appreciated. RESPIRATORY: No accessory muscle use. Congestion noted throughout. Breath sounds equal bilaterally. GASTROINTESTINAL: Abdomen soft, non-tender, nondistended. Normoactive bowel sounds x4. PEG tube in place, flushed. Dressing d/i. MUSCULOSKELETAL: No obvious deformities. Extremities without clubbing, cyanosis , or edema. NEUROLOGICAL: Awake and alert. No obvious cranial nerve deficits. Motor grossly within normal limits. Normal speech. PSYCHIATRIC: Appropriate mood and affect; insight and judgment normal. Procedures 12/11- EGD- esophagitis, gastritis, duodenitis PEG placement Date of Insertion: January 24, 2017 A/P Problem List: (1) Bronchiolar obstruction ICD Code: J98.09 Status: Acute (2) Mass of left lung ICD Code: R91.8 Status: Acute (3) Squamous cell lung cancer ICD Code: C34.90 Status: Acute (4) Severe muscle deconditioning ICD Code: R29.898 Status: Acute (5) Anemia ICD Code: D64.9 Status: Acute (6) Acute respiratory failure ICD Code: J96.00 Status: Acute (7) Hemoptysis ICD Code: R04.2 Status: Acute (8) Hypoxia ICD Code: R09.02 Status: Acute Assessment and Plan 71 Y/O male with: Respiratory failure/Left bronchial mass: - Patient was at [facility]. He underwent bronchoscopy with debulking of a large mass involving the left mainstem bronchus The left main bronchus was stented. The hemoptysis was controlled and he was eventually extubated. - Patient undergoing radiation. Setback on 01/13. Went into respiratory distress. Patient decided to change to DNR status. He was considering hospice. ongoing discussion with his son. Appreciate palliative care assisting. Patient resumed radiation. Wish to remain DNR. Patient planning to finished with radiation and then go home, probably with hospice. Ultimately will be moving to [place]. - O2 supplementation as needed to keep O2 sats > 92%. Currently on RA. DuoNeb's when necessary. Encourage incentive spirometry use. - Pain control. Acute renal failure - Renal function stabilized. Permacath removed. Nephrology signed off. - ADMINISTRATIVE PROGRAM SPECIALIST improving 1.56 --> 1.29 --> 1.16. BMP in am. Iron deficiency anemia, acute on chronic - Hemoccult positive, consult GI, appreciate recommendations. - Per GI will hold EGD/colonoscopy for now, PEG placed with overnight TFs - Transfuse if hemoglobin <7. CBC in am. 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 Physical deconditioning - Encourage oral intake. - Megace to help with appetite. - Physical therapy as tolerated. Hypertension: Continue atenolol 25 mg po bid. BPH: continue doxazosin 8 mg qhs. Seizure: Continue Dilantin. Seizure precautions. Stable. Physical deconditioning conditioning. PT consult. DVT prophylaxis: SCD/TEDs Discussed with patient and Dr. Degroot. Discharge Planning Continue radiation, finishes on 02/27. Plan is for rehab post radiation. Pt reports wanting to go to [facility] to be contacted closer to discharge. Last CM report 02/20/17- Lilliam cb after assessing pt, was advised that due to pt still receiving chemotherapy, pt will be unable to go to [facility]. Also pt will onley be able to be provided with 12 days of rehab. Lilliam will tt pt tomorrow regarding this. Problem Qualifiers (1) Squamous cell lung cancer: Qualified Code: C34.92 - Squamous cell lung cancer, left (2) Anemia: Amada Richey Feb 23, 2017 10:22
--- NOTE | 2017-02-23 14:34 | HHI.PR ---
Subjective Remarks On 3LNC CXR improved aeration of LLL Breathing better No fever Appetite better Objective Vital Signs Vital Signs Date Time Temp Pulse Resp B/P Pulse Ox O2 Delivery O2 Flow Rate FiO2 02/23/17 12:44 96.5 110 18 101/63 98 02/23/17 08:41 96.6 117 18 113/69 95 02/23/17 08:38 Room Air 02/23/17 04:00 98.6 118 18 98/63 96 02/23/17 00:00 98.7 122 19 103/64 93 02/22/17 21:00 97 Room Air 21 02/22/17 21:00 107 02/22/17 20:00 100.3 112 19 108/69 97 02/22/17 16:32 98.7 106 20 108/65 99 I/O 02/22/17 02/22/17 02/22/17 02/23/17 02/23/17 02/23/17 07:00 15:00 23:00 07:00 15:00 23:00 Intake Total 480 ml 720 ml 440 ml 240 ml Output Total 940 ml 300 ml 1100 ml 1000 ml 250 ml Balance -460 ml 420 ml -660 ml -760 ml -250 ml Intake Oral 480 ml 720 ml 440 ml 240 ml Output Urine Total 940 ml 300 ml 1100 ml 1000 ml 250 ml # Bowel Movements 0 0 Result Diagram: 02/20/17 0558 02/20/17 0558 Objective Remarks GENERAL: Patient is lying in bed in NAD SKIN: Warm and dry. HEAD: Normocephalic. EYES: No scleral icterus. No injection or drainage. NECK: Supple, trachea midline. No JVD or lymphadenopathy. CARDIOVASCULAR: Regular rate and rhythm without murmurs, gallops, or rubs. RESPIRATORY: Breath sounds equal bilaterally. No accessory muscle use. GASTROINTESTINAL: Abdomen soft, non-tender, nondistended. MUSCULOSKELETAL: No cyanosis, or edema. BACK: Nontender without obvious deformity. No CVA tenderness. 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 Supplement 02 to keep sat >90% Aerosol nebs Physical Therapy. Radiation treatment in AM. Valeriy Wilkins MD Feb 23, 2017 14:34
[2017-02-23] MEDS: DOXAZOSIN MESYLATE 4 MG TAB PO SCH (20:51)
[2017-02-23] MEDS: ATORVASTATIN 40 MG TAB PO SCH (20:52)
[2017-02-24] VITALS (9 sets, daily range): BP systolic 89–118; BP diastolic 55–72; PULSE 108–134; RESP 18–24; TEMP 95.4–99.1; O2SAT 96–98
[2017-02-24] MEDS: cloNIDine HCL 0.1 MG TAB PO SCH ×3 (06:14→21:14)
[2017-02-24 06:52] LABS: AUTOMATED NEUTROPHIL # 3.7 TH/MM3 (1.8-7.7); BASOPHIL # 0.1 TH/MM3 (0-0.2); EOSINOPHIL # 0.3 TH/MM3 (0-0.4); EOSINOPHIL % 5.5 % (0.0-4.0); HEMATOCRIT 23.9 % (39.0-51.0); HEMO FLAGS DIFF FINAL; LYMPHOCYTE # 0.7 TH/MM3 (1.0-4.8); MEAN CELL VOLUME 86.5 FL (80.0-100.0); MEAN CORPUSCULAR HEMOGLOBIN 28.3 PG (27.0-34.0); MEAN CORPUSCULAR HGB CONC 32.7 % (32.0-36.0); MONO % 11.9 % (0.0-8.0); NEUT % 68.6 % (16.0-70.0); PLATELET COUNT 326 TH/MM3 (150-450); RED BLOOD COUNT 2.76 MIL/MM3 (4.50-5.90); RED CELL DISTRIBUTION WIDTH 16.8 % (11.6-17.2); WHITE BLOOD COUNT 5.4 TH/MM3 (4.0-11.0)
[2017-02-24 07:15] LABS: BICARBONATE 24.1 MEQ/L (21.0-32.0); POTASSIUM 4.1 MEQ/L (3.5-5.1)
[2017-02-24] MEDS: FERROUS SULFATE 300 MG /5ML UDC PO SCH (08:01)
[2017-02-24] MEDS: TAMSULOSIN HCL 0.4 MG CAP PO SCH (08:02)
[2017-02-24] MEDS: HEPARIN SODIUM - SQ 10,000 UNITS/ML VIAL SQ SCH ×2 (08:02→21:14)
[2017-02-24] MEDS: PANTOPRAZOLE SOD 40 MG DELAYED RELEASE TAB PO SCH (08:02)
[2017-02-24] MEDS: guaiFENesin E.R. 600 MG TAB PO SCH ×2 (08:02→21:13)
[2017-02-24] MEDS: MEGESTROL ACETATE SUSP 400 MG/10 ML CUP PO SCH (08:02)
[2017-02-24] MEDS: PHENYTOIN SUSP 100 MG/4 ML CUP PO SCH ×2 (08:02→21:14)
[2017-02-24] MEDS: NIFEdipine 90 MG SUSTAINED RELEASE TAB PO SCH (08:03)
[2017-02-24] MEDS: SODIUM CHLORIDE 0.9% FLUSH 5 ML FLUSH FLUSH SCH ×2 (08:03→21:14)
[2017-02-24] MEDS: FLUTICASONE PROPIONATE 50 MCG/ACT 16 GM NASAL SPRAY EACH NARE SCH (08:03)
[2017-02-24] MEDS: ACETAMINOPHEN/HYDROcodone 325 MG/5 MG TAB PO PRN (08:11)
--- NOTE | 2017-02-24 14:22 | HHI.PR ---
Subjective Remarks Follow-up visit lung cancer with radiation, acute renal failure, bladder mass, physical deconditioning. Patient seen and examined today. Lying in bed comfortably in no apparent distress. Had radiation today, tolerating well. Three more treatments, finishes radiation on 02/27. Plan is for patient to go to [place] once treatment is finished. Denies any new acute complaints such as fever, chills, headache, dizziness, cough, shortness of breath, abdominal pain, n/v or dysuria. States congestion has improved today. Objective Vitals Vital Signs Date Time Temp Pulse Resp B/P Pulse Ox O2 Delivery O2 Flow Rate FiO2 02/24/17 12:12 100/60 02/24/17 12:00 95.4 134 24 89/55 98 02/24/17 08:26 119 02/24/17 08:20 Room Air 02/24/17 08:00 96.6 126 24 96/60 96 02/24/17 04:00 99.1 116 18 100/55 96 02/24/17 00:00 97.7 115 18 103/64 97 02/23/17 22:00 115 02/23/17 21:00 Room Air 02/23/17 20:00 97.5 119 20 105/63 95 02/23/17 16:30 97.0 102 18 125/73 96 I/O 02/23/17 02/23/17 02/23/17 02/24/17 02/24/17 02/24/17 07:00 15:00 23:00 07:00 15:00 23:00 Intake Total 240 ml 720 ml 240 ml Output Total 1000 ml 550 ml 200 ml 600 ml Balance -760 ml 170 ml -200 ml -360 ml Intake Oral 240 ml 720 ml 240 ml Output Urine Total 1000 ml 550 ml 200 ml 600 ml # Bowel Movements 0 1 Result Diagram: 02/24/17 0520 02/24/17 0520 Imaging Last Impressions Chest X-Ray 02/20/17 0000 Signed Impressions: Service Date/Time: February 17:33 - CONCLUSION: 1. Interval clearance of the left lower lobe infiltrate. 2. Persistent consolidation and volume loss involving left upper lobe. Nikolas Roy Jr., MD Abdomen X-Ray 01/30/17 0000 Signed Impressions: Service Date/Time: January 10:55 - CONCLUSION: 1. No evidence for leakage or obstruction after injection of gastrostomy tube. Ken Crandall MD Central Venous Line 01/14/17 1150 Signed Impressions: Service Date/Time: Saturday, January 14, 2017 11:50 - CONCLUSION: Uncomplicated Permcath removal. Beto Perry MD Lower Extremity Ultrasound 01/06/17 0000 Signed Impressions: Service Date/Time: Friday, January 06, 2017 09:02 - CONCLUSION: Normal examination. Shawn Reyes MD Upper Extremity Ultrasound 12/11/16 1506 Signed Impressions: Service Date/Time: Sunday, December 11, 2016 18:00 - CONCLUSION: Superficial thrombophlebitis, extensive edema and nonspecific fluid collections in the subcutaneous tissues. Shawn Reyes MD Head CT 12/11/16 0000 Signed Impressions: Service Date/Time: Sunday, December 11, 2016 20:00 - CONCLUSION: Slight atrophic and small vessel ischemic changes without any evidence for acute hemorrhage or mass effect. Shawn Reyes MD Renal Ultrasound 12/09/16 0000 Signed Impressions: Service Date/Time: Friday, December 09, 2016 15:16 - CONCLUSION: 1. 8.4 cm mass lesion at the base of the bladder. This may represent an intrinsic mass of the bladder versus a prominent anterior lobe of the prostate. 2. Otherwise, urinary bladder is partially decompressed with a Lipscomb catheter. 3. Both kidneys are sonographically normal. Roby Horta MD Objective Remarks GENERAL: Well-nourished, well-developed pleasant male patient in [facility] lying in bed comfortably. SKIN: Warm and dry. No rash. HEENT: Normocephalic. Atraumatic. Pupils equal and round. Mucous membranes pink and moist. NECK: Supple. Trachea midline. CARDIOVASCULAR: Regular rate and rhythm. S1, S2 noted. No murmur appreciated. RESPIRATORY: No accessory muscle use. Clear breath sounds throughout lung loyola. Breath sounds equal bilaterally. GASTROINTESTINAL: Abdomen soft, non-tender, nondistended. Normoactive bowel sounds x4. PEG tube in place, flushed. Dressing d/i. MUSCULOSKELETAL: No obvious deformities. Extremities without clubbing, cyanosis , or edema. NEUROLOGICAL: Awake and alert. No obvious cranial nerve deficits. Motor grossly within normal limits. Normal speech. PSYCHIATRIC: Appropriate mood and affect; insight and judgment normal. Procedures 12/11- EGD- esophagitis, gastritis, duodenitis PEG placement Date of Insertion: January 24, 2017 A/P Problem List: (1) Bronchiolar obstruction ICD Code: J98.09 Status: Acute (2) Mass of left lung ICD Code: R91.8 Status: Acute (3) Squamous cell lung cancer ICD Code: C34.90 Status: Acute (4) Severe muscle deconditioning ICD Code: R29.898 Status: Acute (5) Anemia ICD Code: D64.9 Status: Acute (6) Acute respiratory failure ICD Code: J96.00 Status: Acute (7) Hemoptysis ICD Code: R04.2 Status: Acute (8) Hypoxia ICD Code: R09.02 Status: Acute Assessment and Plan 71 Y/O male with: Respiratory failure/Left bronchial mass: - Patient was at [facility]. He underwent bronchoscopy with debulking of a large mass involving the left mainstem bronchus The left main bronchus was stented. The hemoptysis was controlled and he was eventually extubated. - Patient undergoing radiation. Setback on 01/13. Went into respiratory distress. Patient decided to change to DNR status. He was considering hospice. ongoing discussion with his son. Appreciate palliative care assisting. Patient resumed radiation. Wish to remain DNR. Patient planning to finished with radiation and then go home, probably with hospice. Ultimately will be moving to [place]. - O2 supplementation as needed to keep O2 sats > 92%. Currently on RA. DuoNeb's when necessary. Encourage incentive spirometry use. - Pain control. Acute renal failure - Renal function stabilized. Permacath removed. Nephrology signed off. - CAN DRAGGER improving 1.56 --> 1.29 --> 1.16. BMP in am. Iron deficiency anemia, acute on chronic - Hemoccult positive, consult GI, appreciate recommendations. - Per GI will hold EGD/colonoscopy for now, PEG placed with overnight TFs - Transfuse if hemoglobin <7. CBC in am. 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 Physical deconditioning - Encourage oral intake. - Megace to help with appetite. - Physical therapy as tolerated. Hypertension: Continue atenolol 25 mg po bid. BPH: continue doxazosin 8 mg qhs. Seizure: Continue Dilantin. Seizure precautions. Stable. Physical deconditioning conditioning. PT consult. DVT prophylaxis: SCD/TEDs Discussed with patient and Dr. Degroot. Discharge Planning Continue radiation, finishes on 02/27. Plan is for rehab post radiation. Pt reports wanting to go to [facility] to be contacted closer to discharge. Last CM report 02/20/17- Lilliam cb after assessing pt, was advised that due to pt still receiving chemotherapy, pt will be unable to go to [facility]. Also pt will onley be able to be provided with 12 days of rehab. Lilliam will tt pt tomorrow regarding this. Problem Qualifiers (1) Squamous cell lung cancer: Qualified Code: C34.92 - Squamous cell lung cancer, left (2) Anemia: Amada Richey Feb 24, 2017 14:22 Izzy Degroot MD Feb 24, 2017 18:33
--- NOTE | 2017-02-24 18:31 | HHI.PR ---
Subjective Remarks On 3LNC CXR improved aeration of LLL Breathing better No fever Up on the side of bed " i can walk with walker" Objective Vital Signs Vital Signs Date Time Temp Pulse Resp B/P Pulse Ox O2 Delivery O2 Flow Rate FiO2 02/24/17 16:00 98.9 108 18 110/67 96 02/24/17 12:12 100/60 02/24/17 12:00 95.4 134 24 89/55 98 02/24/17 08:26 119 02/24/17 08:20 Room Air 02/24/17 08:00 96.6 126 24 96/60 96 02/24/17 04:00 99.1 116 18 100/55 96 02/24/17 00:00 97.7 115 18 103/64 97 02/23/17 22:00 115 02/23/17 21:00 Room Air 02/23/17 20:00 97.5 119 20 105/63 95 I/O 02/23/17 02/23/17 02/23/17 02/24/17 02/24/17 02/24/17 07:00 15:00 23:00 07:00 15:00 23:00 Intake Total 240 ml 720 ml 240 ml 480 ml 480 ml Output Total 1000 ml 550 ml 200 ml 600 ml 400 ml 200 ml Balance -760 ml 170 ml -200 ml -360 ml 80 ml 280 ml Intake Oral 240 ml 720 ml 240 ml 480 ml 480 ml Output Urine Total 1000 ml 550 ml 200 ml 600 ml 400 ml 200 ml # Bowel Movements 0 1 1 Result Diagram: 02/24/17 0520 02/24/17 0520 Objective Remarks GENERAL: Patient is lying in bed in NAD SKIN: Warm and dry. HEAD: Normocephalic. EYES: No scleral icterus. No injection or drainage. NECK: Supple, trachea midline. No JVD or lymphadenopathy. CARDIOVASCULAR: Regular rate and rhythm without murmurs, gallops, or rubs. RESPIRATORY: Breath sounds equal bilaterally. No accessory muscle use. GASTROINTESTINAL: Abdomen soft, non-tender, nondistended. MUSCULOSKELETAL: No cyanosis, or edema. BACK: Nontender without obvious deformity. No CVA tenderness. 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 Supplement 02 to keep sat >90% Aerosol nebs Physical Therapy. Radiation treatment PT.Valeriy Terrell MD Feb 24, 2017 18:31
[2017-02-24] MEDS: DOXAZOSIN MESYLATE 4 MG TAB PO SCH (21:13)
[2017-02-24] MEDS: ATORVASTATIN 40 MG TAB PO SCH (21:13)
[2017-02-25] VITALS (8 sets, daily range): BP systolic 93–127; BP diastolic 57–78; PULSE 102–121; RESP 18–20; TEMP 96.1–99.2; O2SAT 93–99
[2017-02-25] MEDS: cloNIDine HCL 0.1 MG TAB PO SCH ×3 (05:08→22:00)
[2017-02-25] MEDS: MEGESTROL ACETATE SUSP 400 MG/10 ML CUP PO SCH (09:00)
[2017-02-25] MEDS: FERROUS SULFATE 300 MG /5ML UDC PO SCH (09:00)
[2017-02-25] MEDS: PHENYTOIN SUSP 100 MG/4 ML CUP PO SCH ×2 (09:28→20:23)
[2017-02-25] MEDS: TAMSULOSIN HCL 0.4 MG CAP PO SCH (09:28)
[2017-02-25] MEDS: PANTOPRAZOLE SOD 40 MG DELAYED RELEASE TAB PO SCH (09:28)
[2017-02-25] MEDS: NIFEdipine 90 MG SUSTAINED RELEASE TAB PO SCH (09:28)
[2017-02-25] MEDS: guaiFENesin E.R. 600 MG TAB PO SCH ×2 (09:28→20:22)
[2017-02-25] MEDS: FLUTICASONE PROPIONATE 50 MCG/ACT 16 GM NASAL SPRAY EACH NARE SCH (09:31)
[2017-02-25] MEDS: SODIUM CHLORIDE 0.9% FLUSH 5 ML FLUSH FLUSH SCH ×2 (09:32→20:23)
[2017-02-25] MEDS: HEPARIN SODIUM - SQ 10,000 UNITS/ML VIAL SQ SCH ×2 (09:32→20:22)
--- NOTE | 2017-02-25 12:14 | HHI.HCPN ---
Reason for visit a. To assist with evaluation and management of symptoms including: dyspnea, weakness, malnutrition b. To assist medical decision maker(s) with: better understanding of current medical conditions; weighing benefits/burdens of medical treatment options; making medical treatment decisions. Subjective/Interval History Pt seen to follow up on dyspnea , goals, update to family. Palliative continues to follow pt weekly or as needed as condition evolves. Nearing completion of XRT, today will complete 33 of 35 treatments, last one to be 02/27. CM assisting pt w d/c planning, pt wishes to pursue short term rehab at [place] to continue strengthening before moving to [place] with son. Has been more mobile w PT, today able to ambulate to [facility]. Yesterday CBC stable, no new imaging since 02/20. Tolerating TF via PEG overnight, fair appetite during daytime. Pt seen in room no visitors present. He is alert, oriented, some reasonable insight into hospitalization, recalls events at [place], his "flatline " event, and that he is maryuri to have survived. Still forgetful at times. Tells me radiation has "broken up the cancer some", but he understands he still has cancer and it is not expected to go away. He wants to pursue rehab D/w CM. later call to SALOMÓN Hidalgo to provide update-- VM left. . Family/friend interactions Call back later from SALOMÓN Hidalgo, and son Elpidio -- updated on XRT nearing completion , poss d/c to [facility], pt will still need plan once d/c from [facility]. Not certain he will be offered chemo as he remains debilitated. Family still planning to move him to [place] after D/c from rehab. Ongoing discussions RE [facility] vs hospice in [place]. . Advance Directives Living Will: Completed, but not made available Health Care Surrogate: Copy in medical record Advance Directive Specifics Date completed: 12/17/16 Health Care Surrogate(s): Names son Elpidio Jaime as HCS Objective Vital Signs Date Time Temp Pulse Resp B/P Pulse Ox O2 Delivery O2 Flow Rate FiO2 02/25/17 09:43 Room Air 02/25/17 08:00 99.1 113 18 122/78 96 02/25/17 04:45 99.2 116 18 98/57 95 02/25/17 00:00 98.8 111 18 93/60 99 02/24/17 21:14 Room Air 02/24/17 20:26 99.1 112 20 118/72 96 02/24/17 20:00 111 02/24/17 16:00 98.9 108 18 110/67 96 02/24/17 12:12 100/60 Physical Exam CONSTITUTIONAL/GENERAL: This is a chronically ill appearing pt, no distress, alert, pleasant TUBES/LINES/DRAINS:pIV LUE, nasal cannula, +PEG tube CARDIOVASCULAR: Regular rate and rhythm, no murmurs. Peripheral pulses symmetric. RESPIRATORY/CHEST: Symmetric, unlabored respirations. + 2L NC. Clear to right, improved air movement to left, + coarse scattered rhonchi. GASTROINTESTINAL: Abdomen soft, non-tender, nondistended. No palpable masses. No guarding. Bowel sounds present.PEG tube clamped ,dressing clean/dry NEUROLOGICAL: Alert, orientedx3 . Pleasant and cooperative. Reasonable insight into hospitalization and conditions. Follows commands. Moves all 4 extremities with significant weakness PSYCHIATRIC: No obvious anxiety/depression. . Diagnostic Tests Laboratory Laboratory Tests Test 02/24/17 05:20 White Blood Count 5.4 TH/MM3 (4.0-11.0) Red Blood Count 2.76 MIL/MM3 (4.50-5.90) Hemoglobin 7.8 GM/DL (13.0-17.0) Hematocrit 23.9 % (39.0-51.0) Mean Corpuscular Volume 86.5 FL (80.0-100.0) Mean Corpuscular Hemoglobin 28.3 PG (27.0-34.0) Mean Corpuscular Hemoglobin 32.7 % Concent (32.0-36.0) Red Cell Distribution Width 16.8 % (11.6-17.2) Platelet Count 326 TH/MM3 (150-450) Mean Platelet Volume 7.2 FL (7.0-11.0) Neutrophils (%) (Auto) 68.6 % (16.0-70.0) Lymphocytes (%) (Auto) 13.0 % (9.0-44.0) Monocytes (%) (Auto) 11.9 % (0.0-8.0) Eosinophils (%) (Auto) 5.5 % (0.0-4.0) Basophils (%) (Auto) 1.0 % (0.0-2.0) Neutrophils # (Auto) 3.7 TH/MM3 (1.8-7.7) Lymphocytes # (Auto) 0.7 TH/MM3 (1.0-4.8) Monocytes # (Auto) 0.6 TH/MM3 (0-0.9) Eosinophils # (Auto) 0.3 TH/MM3 (0-0.4) Basophils # (Auto) 0.1 TH/MM3 (0-0.2) CBC Comment DIFF FINAL Differential Comment Sodium Level 140 MEQ/L (136-145) Potassium Level 4.1 MEQ/L (3.5-5.1) Chloride Level 108 MEQ/L (98-107) Carbon Dioxide Level 24.1 MEQ/L (21.0-32.0) Anion Gap 8 MEQ/L (5-15) Blood Urea Nitrogen 43 MG/DL (7-18) Creatinine 1.34 MG/DL (0.60-1.30) Estimat Glomerular Filtration 53 ML/MIN (>89) Rate Random Glucose 98 MG/DL (74-106) Calcium Level 8.3 MG/DL (8.5-10.1) Result Diagram: 02/24/1751902/24/17519 Assessment and Plan Disease Oriented Problem List: (1) Mass of left lung Comment: +SCC (2) Acute renal failure (3) Squamous cell lung cancer (4) Bladder mass (5) Anemia (6) UTI (urinary tract infection) Comment: awaiting BX/resection when stable (7) Severe muscle deconditioning (8) Acute respiratory failure Comment: resolved Symptom Scale: (1) Malnutrition (2) Dyspnea (3) Weakness (4) Pain Pertinent Non-Medical Issues Psychosocial:. 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 Lives at home alone. Supported by 4 sons, 2 in [place], 2 in [place] Spiritual: Legal:pt appears able to participate in decision making. Reports his son Elpidio is HCS, they will provide copies. Pt appears to have simple understanding of things and wishes to include his son in medical updates and decision making . Ethical issues impacting care: Important Contacts Jevon Landeros- (HCS) Elpidio Addison [phone] (Gwen, DIL [phone]) Son Marly Jaime [phone] . Prognosis This patient has a new diagnosis of squamous cell carcinoma, s/p mass resection , intubation and arrest. He subsequently suffered acute renal failure and remains on hemodialysis. He has new findings of a large bladder mass, concerning for cancer, however cannot have additional diagnostic procedures until acute condition improves. It is possible his cancer could be treated, however his acute issues need to improve and his overall performance status needs to improve in order to obtain staging, and possible treatment. He has multiple issues and is severely deconditioned, it may take significant time for him to improve enough for treatment and during that time he remains high risk for further complications and setbacks. Code Status: Full Code Plan * Legal decision maker:pt appears able to participate in decision making. Reports his son Elpidio is HCS, they will provide copies. Pt appears to have simple understanding of things and wishes to include his son in medical updates and decision making . HCS completed 12/17/16 naming son Elpidio Jaime as HCS * Goals: GOALS HAVE BEEN AGGRESSIVE, pt wants to try to get needed resources in line in order to to go back home to [place] with his son, and possible obtain chemotherapy to treat his cancer and have more time. Patient's son and healthcare surrogate Elpidio is supportive of the patient's wishes. They're working to try to get him up to [place] closer to them. I provided an update to son 12/19 -- 01/13/17- Pt off unit. need to re address [facility], hospice has been consulted during [facility] earlier this am. Could d/c w hospice, however would not be able to cont radiation on hospice. 1400 patient seen later in the afternoon after his return from radiation. Has now completed 4 of 25 treatments. He endorses feeling more tired and out of sorts in the past day or so. No specific complaints otherwise. He affirms DNR status. He is not certain if he wishes to proceed with hospice, or if he wishes to remain in the hospital and attempt to continue radiation treatments, other aggressive treatments short of resuscitation. He is going to talk more with his son Elpidio when he arrives later today to make further decisions. Palliative plans to follow-up again with him tomorrow 01/14 -- 01/14/17 met w pt, son, They have had ongoing conversations RE continuing radiation/semi aggressive tx short of resuscitation, vs transition to hospice and d/c out of the hospital to get up to [place] with family. Pt wishes to continue to try to complete radiation, he understands remains high risk for complications /resp issues. Plan is to enroll in hospice, after completing radiation. Wants to remain DNR. -- 01/22/17 met w pt at [facility]. He is A&O. goals remain aggressive. Feeling well overall. Wants to work with PT. --01/31/17: goals remain aggressive. update to family. --02/07/17- palliative continues to follow patient weekly and as needed. Discuss goals, discharge planning with patient and family today. Limited options, chemotherapy is not an option for the patient at this point, unlikely to become an option due to severely debilitated status. Option to discharge locally with hospice and try to pursue transition to [place] with an accepting hospice up there versus pursue rehabilitation locally, which would be high risk for complications/setbacks/hospital readmission. Patient and family to continue discuss over the next week. -- 02/11/17 - ongoing discussions w pt, family RE discharge planning/condition /prognosis, limited options. Wants to cont aggressive tx while completing XRT here in the hospital. Still working with family regarding getting up to [place] where he will live with his son, ongoing discussions RE home with hospice locally vs home with other assistance son + (home health??) and then transition to [place]. --02/21/17 ongoing discussions with patient and family regarding discharge planning and conditions. Initially there have been conversations regarding transition to hospice and up to [place]. However family and patient now discussions about the possibility of short-term rehabilitation to maximize patient's limited mobility prior to going home and then up to [place]. --02/25/17 Met w pt, family via phone. updated on XRT nearing completion, poss d/c to [facility], pt will still need plan once d/c from [facility]. Not certain he will be offered chemo as he remains debilitated. Pt wants to complete short term rehab to continue with strengthening (at [facility] ) Family still planning to move him to [place] after D/c from rehab. Pt/family to have Ongoing discussions RE [facility] vs hospice in [place]. Likely will not transition to hospice out patient here unless significant changes/decline. * CODE STATUS: DNR * SYMPTOMS: --dyspnea- s/p acute resp failure- prolonged intubation, resolved. Has been on nasal cannula O2, PRN nebulizers-- denies and shortness of breath; earlier today with episode of desaturation, dyspnea. CXR appears unchanged, essentially white out of left lung. Episode of respiratory distress last month , required transfer to ICU and BiPAP, now out of ICU. currently maintaining on nasal cannula - has elected NOT to use B IPAP anymore. HALICAT last month due to hemoptysis, desaturation, pt elected NO intubation, DNR, comfort measures only, HOSPICE consulted at that time, though patient did not elect hospice. Goal to Continue to pursue aggressive treatment until completion of radiation. --malnutrition- +PEG, TF at night, appetite fair/good -- eating 25-50-75% of most recent meals. --weakness/deconditioning - in hospital since 10/22 -- severely deconditioned- -> PT working with, Continues to work with OT/PT some improvement, now ambulatory short distance w assist to [facility], desires outpt rehab to further PT --Dysphagia- post ST eval,tolerating thin liquids/reg diet, probably remains ongoing risk for aspiration -- intermittent constipation- on occasional prn opiates; has prn bowel regimen. BM every few days, difficult recently per pt, rec. use of PRNs- if ineffective consider scheduled dosing of senna instead of PRN. -- pain-- infrequent chest wall pain (likely 2/2 disease process) has prn morphine, norco, infrequent use .(last dose MS 02/18, norco 02/15) denies pain today. * Palliative care will continue to follow during hospital course as condition evolves, to assist patient/decision-maker with understanding of medical conditions, weighing benefits/burdens of treatment options, for clarification of goals of treatment. Additionally will assist with any symptoms of palliative concern Attestation To help prompt me to consider important information that might be impacting today's encounter and assessment, information from prior notes written by myself or my colleagues may have been "brought forward" into today's note. My signature on this note, however, is an attestation that I personally performed the exam, history, and/or decision-making noted today, and, unless otherwise indicated, the interactions with patient, family, and staff as well as the review of records all occurred today. I also attest that the listed assessment and stated plan reflect my best clinical judgment today based on the combination of historical information, prior notes, and today's exam/ interactions. When time spent is documented, it refers only to time spent today by the signer, or if indicated, combined time spent today by collaborating physician/nurse practitioner. Evangelina Watson Feb 25, 2017 12:14 Evangelina Watson Feb 25, 2017 12:14
--- NOTE | 2017-02-25 13:05 | HHI.PR ---
Subjective Remarks Follow-up visit lung cancer with radiation, acute renal failure, bladder mass, physical deconditioning. Patient seen and examined today. Patient scheduled for radiation today at 1400. Uneventful morning, denies any new acute complaints. Anxious to finish treatments and get to rehab. Has been out of bed with PT and walker. Denies any recent fever, headache, chills, cough, shortness of breath, chest pain, abdominal pain, n/v, dysuria. Objective Vitals Vital Signs Date Time Temp Pulse Resp B/P Pulse Ox O2 Delivery O2 Flow Rate FiO2 02/25/17 12:00 98.4 111 18 106/69 97 02/25/17 09:43 Room Air 02/25/17 08:00 99.1 113 18 122/78 96 02/25/17 04:45 99.2 116 18 98/57 95 02/25/17 00:00 98.8 111 18 93/60 99 02/24/17 21:14 Room Air 02/24/17 20:26 99.1 112 20 118/72 96 02/24/17 20:00 111 02/24/17 16:00 98.9 108 18 110/67 96 I/O 02/24/17 02/24/17 02/24/17 02/25/17 02/25/17 02/25/17 07:00 15:00 23:00 07:00 15:00 23:00 Intake Total 240 ml 480 ml 480 ml 240 ml Output Total 600 ml 400 ml 200 ml 700 ml Balance -360 ml 80 ml 280 ml -460 ml Intake Oral 240 ml 480 ml 480 ml 240 ml Output Urine Total 600 ml 400 ml 200 ml 700 ml # Bowel Movements 1 Result Diagram: 02/24/17 0520 02/24/17 0520 Imaging Last Impressions Chest X-Ray 02/20/17 0000 Signed Impressions: Service Date/Time: February 17:33 - CONCLUSION: 1. Interval clearance of the left lower lobe infiltrate. 2. Persistent consolidation and volume loss involving left upper lobe. Nikolas Roy Jr., MD Abdomen X-Ray 01/30/17 0000 Signed Impressions: Service Date/Time: January 10:55 - CONCLUSION: 1. No evidence for leakage or obstruction after injection of gastrostomy tube. Ken Crandall MD Central Venous Line 01/14/17 1150 Signed Impressions: Service Date/Time: Saturday, January 14, 2017 11:50 - CONCLUSION: Uncomplicated Permcath removal. Beto Perry MD Lower Extremity Ultrasound 01/06/17 0000 Signed Impressions: Service Date/Time: Friday, January 06, 2017 09:02 - CONCLUSION: Normal examination. Shawn Reyes MD Upper Extremity Ultrasound 12/11/16 1506 Signed Impressions: Service Date/Time: Sunday, December 11, 2016 18:00 - CONCLUSION: Superficial thrombophlebitis, extensive edema and nonspecific fluid collections in the subcutaneous tissues. Shawn Reyes MD Head CT 12/11/16 0000 Signed Impressions: Service Date/Time: Sunday, December 11, 2016 20:00 - CONCLUSION: Slight atrophic and small vessel ischemic changes without any evidence for acute hemorrhage or mass effect. Shawn Reyes MD Renal Ultrasound 12/09/16 0000 Signed Impressions: Service Date/Time: Friday, December 09, 2016 15:16 - CONCLUSION: 1. 8.4 cm mass lesion at the base of the bladder. This may represent an intrinsic mass of the bladder versus a prominent anterior lobe of the prostate. 2. Otherwise, urinary bladder is partially decompressed with a Lipscomb catheter. 3. Both kidneys are sonographically normal. Roby Horta MD Objective Remarks GENERAL: Well-nourished, well-developed pleasant male patient in NAD lying in bed comfortably. SKIN: Warm and dry. No rash. HEENT: Normocephalic. Atraumatic. Pupils equal and round. Mucous membranes pink and moist. NECK: Supple. Trachea midline. CARDIOVASCULAR: Regular rate and rhythm. S1, S2 noted. No murmur appreciated. RESPIRATORY: No accessory muscle use. Clear breath sounds throughout lung [place]. Breath sounds equal bilaterally. GASTROINTESTINAL: Abdomen soft, non-tender, nondistended. Normoactive bowel sounds x4. PEG tube in place, flushed. Dressing d/i. MUSCULOSKELETAL: No obvious deformities. Extremities without clubbing, cyanosis , or edema. NEUROLOGICAL: Awake and alert. No obvious cranial nerve deficits. Motor grossly within normal limits. Normal speech. PSYCHIATRIC: Appropriate mood and affect; insight and judgment normal. Procedures 12/11- EGD- esophagitis, gastritis, duodenitis PEG placement Date of Insertion: January 24, 2017 A/P Problem List: (1) Bronchiolar obstruction ICD Code: J98.09 Status: Acute (2) Mass of left lung ICD Code: R91.8 Status: Acute (3) Squamous cell lung cancer ICD Code: C34.90 Status: Acute (4) Severe muscle deconditioning ICD Code: R29.898 Status: Acute (5) Anemia ICD Code: D64.9 Status: Acute (6) Acute respiratory failure ICD Code: J96.00 Status: Acute (7) Hemoptysis ICD Code: R04.2 Status: Acute (8) Hypoxia ICD Code: R09.02 Status: Acute Assessment and Plan 71 Y/O male with: Respiratory failure/Left bronchial mass: - Patient was at [facility]. He underwent bronchoscopy with debulking of a large mass involving the left mainstem bronchus The left main bronchus was stented. The hemoptysis was controlled and he was eventually extubated. - Patient undergoing radiation. Setback on 01/13. Went into respiratory distress. Patient decided to change to DNR status. He was considering hospice. ongoing discussion with his son. Appreciate palliative care assisting. Patient resumed radiation. Wish to remain DNR. Patient planning to finished with radiation and then go home, probably with hospice. Ultimately will be moving to [place]. - O2 supplementation as needed to keep O2 sats > 92%. Currently on RA. DuoNeb's when necessary. Encourage incentive spirometry use. - Pain control. Acute renal failure - Renal function stabilized. Permacath removed. Nephrology signed off. 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 Monitor. Iron deficiency anemia, acute on chronic - Hemoccult positive, consult GI, appreciate recommendations. - Per GI will hold EGD/colonoscopy for now, PEG placed with overnight TFs - Transfuse if hemoglobin <7. CBC in am. 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 Physical deconditioning - Encourage oral intake. - Megace to help with appetite. - Physical therapy as tolerated. Hypertension: Continue atenolol 25 mg po bid. BPH: continue doxazosin 8 mg qhs. Seizure: Continue Dilantin. Seizure precautions. Stable. Physical deconditioning conditioning. PT consult. DVT prophylaxis: SCD/TEDs Discussed with patient and Dr. Degroot. Discharge Planning Continue radiation, finishes on 02/27. Plan is for rehab post radiation. Pt reports wanting to go to [facility] to be contacted closer to discharge. Last CM report 02/20/17- Lilliam cb after assessing pt, was advised that due to pt still receiving chemotherapy, pt will be unable to go to [facility]. Also pt will onley be able to be provided with 12 days of rehab. Lilliam will tt pt tomorrow regarding this. Problem Qualifiers (1) Squamous cell lung cancer: Qualified Code: C34.92 - Squamous cell lung cancer, left (2) Anemia: Amada Richey Feb 25, 2017 13:05
--- NOTE | 2017-02-25 16:05 | OTSOAPIP ---
TIME SESSION COMPLETED: 1400 TREATMENT TIME: 0 MINS. CHART REVIEWED. PATIENT WAS NOT AVAILABLE DUE TO BEING OFF THE FLOOR FOR A PROCEDURE PLAN: WILL SEE PATIENT IF ABLE OR NEXT TREATMENT DAY Therapist: SWAPNIL CORONEL/Delroy Signature on file
--- NOTE | 2017-02-25 19:22 | HHI.PR ---
Subjective Remarks On 3LNC CXR improved aeration of LLL Breathing better No fever Up on the side of bed " I sat on the potty on my own" Objective Vital Signs Vital Signs Date Time Temp Pulse Resp B/P Pulse Ox O2 Delivery O2 Flow Rate FiO2 02/25/17 16:00 96.1 102 20 127/72 93 02/25/17 13:47 111 02/25/17 12:00 98.4 111 18 106/69 97 02/25/17 09:43 Room Air 02/25/17 08:00 99.1 113 18 122/78 96 02/25/17 04:45 99.2 116 18 98/57 95 02/25/17 00:00 98.8 111 18 93/60 99 02/24/17 21:14 Room Air 02/24/17 20:26 99.1 112 20 118/72 96 02/24/17 20:00 111 I/O 02/24/17 02/24/17 02/24/17 02/25/17 02/25/17 02/25/17 07:00 15:00 23:00 07:00 15:00 23:00 Intake Total 240 ml 480 ml 480 ml 240 ml 480 ml Output Total 600 ml 400 ml 200 ml 700 ml 550 ml 400 ml Balance -360 ml 80 ml 280 ml -460 ml -70 ml -400 ml Intake Oral 240 ml 480 ml 480 ml 240 ml 480 ml Output Urine Total 600 ml 400 ml 200 ml 700 ml 550 ml 400 ml # Bowel Movements 1 Result Diagram: 02/24/17 0520 02/24/17 0520 Objective Remarks GENERAL: Patient is lying in bed in NAD SKIN: Warm and dry. HEAD: Normocephalic. EYES: No scleral icterus. No injection or drainage. NECK: Supple, trachea midline. No JVD or lymphadenopathy. CARDIOVASCULAR: Regular rate and rhythm without murmurs, gallops, or rubs. RESPIRATORY: Breath sounds equal bilaterally. No accessory muscle use. GASTROINTESTINAL: Abdomen soft, non-tender, nondistended. MUSCULOSKELETAL: No cyanosis, or edema. BACK: Nontender without obvious deformity. No CVA tenderness. Neuro: Awake and alert A/P Assessment and Plan 1)Resp Insiff 2)Opacification of left hemithorax -Improved 3)Squamous cell ca involving left main stem s/p endobronchial stent placement s/p XTR 4)s/p Hemoptysis 5)ARF 5)Anemia 6)Leukocytosis 7)HTN Plan Continue with oxygen keep sat >92% Bronchodilators (DuoNeb) S/p stent placement in the left main bronchus at [facility]. Supplement 02 to keep sat >90% Aerosol nebs Physical Therapy. Radiation treatment Progressing well with Therapy. Valeriy Wilkins MD Feb 25, 2017 19:22
[2017-02-25] MEDS: ATORVASTATIN 40 MG TAB PO SCH (20:22)
[2017-02-25] MEDS: DOXAZOSIN MESYLATE 4 MG TAB PO SCH (20:22)
[2017-02-26] VITALS (8 sets, daily range): BP systolic 97–118; BP diastolic 54–71; PULSE 109–119; RESP 20–22; TEMP 96.6–99.2; O2SAT 94–98
[2017-02-26] MEDS: ONDANSETRON HCL 4 MG/2 ML VIAL IVP PRN (04:22)
[2017-02-26] MEDS: cloNIDine HCL 0.1 MG TAB PO SCH (05:09)
[2017-02-26] MEDS: FERROUS SULFATE 300 MG /5ML UDC PO SCH (09:00)
[2017-02-26] MEDS: MEGESTROL ACETATE SUSP 400 MG/10 ML CUP PO SCH (09:00)
[2017-02-26] MEDS: HEPARIN SODIUM - SQ 10,000 UNITS/ML VIAL SQ SCH ×2 (09:16→20:45)
[2017-02-26] MEDS: TAMSULOSIN HCL 0.4 MG CAP PO SCH (09:16)
[2017-02-26] MEDS: PANTOPRAZOLE SOD 40 MG DELAYED RELEASE TAB PO SCH (09:16)
[2017-02-26] MEDS: NIFEdipine 90 MG SUSTAINED RELEASE TAB PO SCH (09:16)
[2017-02-26] MEDS: PHENYTOIN SUSP 100 MG/4 ML CUP PO SCH ×2 (09:16→20:41)
[2017-02-26] MEDS: guaiFENesin E.R. 600 MG TAB PO SCH ×2 (09:16→20:41)
[2017-02-26] MEDS: FLUTICASONE PROPIONATE 50 MCG/ACT 16 GM NASAL SPRAY EACH NARE SCH (09:17)
[2017-02-26] MEDS: SODIUM CHLORIDE 0.9% FLUSH 5 ML FLUSH FLUSH SCH ×2 (09:17→20:45)
--- NOTE | 2017-02-26 12:22 | HHI.PR ---
Subjective Remarks Follow-up visit lung cancer with radiation, acute renal failure, bladder mass, physical deconditioning. Patient seen and examined today lying in bed comfortably, just came back from radiation. Feeling well. Does admit to one bout of nausea and vomiting this am upon awakening. Has currently subsided, was given Zofran. Otherwise no new complaints. Denies recent fever, chills, cough, shortness of breath, abdominal pain or dysuria. Has been out of bed to commode. Tomorrow patient is scheduled for last radiation treatment. Objective Vitals Vital Signs Date Time Temp Pulse Resp B/P Pulse Ox O2 Delivery O2 Flow Rate FiO2 02/26/17 11:25 112 02/26/17 11:13 Room Air 02/26/17 07:30 97.3 119 20 118/71 95 Automatic Cuff 02/26/17 04:00 99.2 115 22 97/54 94 02/26/17 00:00 97.8 112 22 108/66 95 02/25/17 22:28 100/64 02/25/17 20:23 Room Air 02/25/17 20:00 110 02/25/17 20:00 99.0 121 20 119/63 95 02/25/17 16:00 96.1 102 20 127/72 93 02/25/17 13:47 111 I/O 02/25/17 02/25/17 02/25/17 02/26/17 02/26/17 02/26/17 07:00 15:00 23:00 07:00 15:00 23:00 Intake Total 240 ml 480 ml 780 ml Output Total 700 ml 550 ml 400 ml 0 ml Balance -460 ml -70 ml 380 ml 0 ml Intake Oral 240 ml 480 ml 780 ml Output Urine Total 700 ml 550 ml 400 ml 0 ml # Bowel Movements 1 Result Diagram: 02/24/17 0520 02/24/17 0520 Imaging Last Impressions Chest X-Ray 02/20/17 0000 Signed Impressions: Service Date/Time: February 17:33 - CONCLUSION: 1. Interval clearance of the left lower lobe infiltrate. 2. Persistent consolidation and volume loss involving left upper lobe. Nikolas Roy Jr., MD Abdomen X-Ray 01/30/17 0000 Signed Impressions: Service Date/Time: January 10:55 - CONCLUSION: 1. No evidence for leakage or obstruction after injection of gastrostomy tube. Ken Crandall MD Central Venous Line 01/14/17 1150 Signed Impressions: Service Date/Time: Saturday, January 14, 2017 11:50 - CONCLUSION: Uncomplicated Permcath removal. Beto Perry MD Lower Extremity Ultrasound 01/06/17 0000 Signed Impressions: Service Date/Time: Friday, January 06, 2017 09:02 - CONCLUSION: Normal examination. Shawn Reyes MD Upper Extremity Ultrasound 12/11/16 1506 Signed Impressions: Service Date/Time: Sunday, December 11, 2016 18:00 - CONCLUSION: Superficial thrombophlebitis, extensive edema and nonspecific fluid collections in the subcutaneous tissues. Shawn Reyes MD Head CT 12/11/16 0000 Signed Impressions: Service Date/Time: Sunday, December 11, 2016 20:00 - CONCLUSION: Slight atrophic and small vessel ischemic changes without any evidence for acute hemorrhage or mass effect. Shawn Reyes MD Renal Ultrasound 12/09/16 0000 Signed Impressions: Service Date/Time: Friday, December 09, 2016 15:16 - CONCLUSION: 1. 8.4 cm mass lesion at the base of the bladder. This may represent an intrinsic mass of the bladder versus a prominent anterior lobe of the prostate. 2. Otherwise, urinary bladder is partially decompressed with a Lipscomb catheter. 3. Both kidneys are sonographically normal. Roby Horta MD Objective Remarks GENERAL: Well-nourished, well-developed pleasant male patient in NAD lying in bed comfortably. SKIN: Warm and dry. No rash. HEENT: Normocephalic. Atraumatic. Pupils equal and round. Mucous membranes pink and moist. NECK: Supple. Trachea midline. CARDIOVASCULAR: Regular rate and rhythm. S1, S2 noted. No murmur appreciated. RESPIRATORY: No accessory muscle use. Left lower lung field inspiratory wheeze noted. Breath sounds equal bilaterally. GASTROINTESTINAL: Abdomen soft, non-tender, nondistended. Normoactive bowel sounds x4. PEG tube in place, flushed. Dressing d/i. MUSCULOSKELETAL: No obvious deformities. Extremities without clubbing, cyanosis , or edema. NEUROLOGICAL: Awake and alert. No obvious cranial nerve deficits. Motor grossly within normal limits. Normal speech. PSYCHIATRIC: Appropriate mood and affect; insight and judgment normal. Procedures 12/11- EGD- esophagitis, gastritis, duodenitis PEG placement Date of Insertion: January 24, 2017 A/P Problem List: (1) Bronchiolar obstruction ICD Code: J98.09 Status: Acute (2) Mass of left lung ICD Code: R91.8 Status: Acute (3) Squamous cell lung cancer ICD Code: C34.90 Status: Acute (4) Severe muscle deconditioning ICD Code: R29.898 Status: Acute (5) Anemia ICD Code: D64.9 Status: Acute (6) Acute respiratory failure ICD Code: J96.00 Status: Acute (7) Hemoptysis ICD Code: R04.2 Status: Acute (8) Hypoxia ICD Code: R09.02 Status: Acute Assessment and Plan 71 Y/O male with: Respiratory failure/Left bronchial mass: - Patient was at [facility]. He underwent bronchoscopy with debulking of a large mass involving the left mainstem bronchus The left main bronchus was stented. The hemoptysis was controlled and he was eventually extubated. - Patient undergoing radiation. Setback on 01/13. Went into respiratory distress. Patient decided to change to DNR status. He was considering hospice. ongoing discussion with his son. Appreciate palliative care assisting. Patient resumed radiation. Wish to remain DNR. Patient planning to finished with radiation and then go home, probably with hospice. Ultimately will be moving to [place]. - O2 supplementation as needed to keep O2 sats > 92%. Currently on RA. DuoNeb's when necessary. Encourage incentive spirometry use. - Pain control. Acute renal failure - Renal function stabilized. Permacath removed. Nephrology signed off. 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 Monitor. Iron deficiency anemia, acute on chronic - Hemoccult positive, consult GI, appreciate recommendations. - Per GI will hold EGD/colonoscopy for now, PEG placed with overnight TFs - Transfuse if hemoglobin <7. 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 Physical deconditioning - Encourage oral intake. - Megace to help with appetite. - Physical therapy as tolerated. Hypertension: Continue procardia 90 mg PO daily, Cardura 8 mg PO HS. DC scheduled clonidine. BPH: continue doxazosin 8 mg qhs. Seizure: Continue Dilantin. Seizure precautions. Stable. Physical deconditioning conditioning. PT consult. DVT prophylaxis: SCD/TEDs Discussed with patient and Dr. Degroot. Discharge Planning Continue radiation, finishes on 02/27. Plan is for rehab post radiation. Pt reports wanting to go to [facility] to be contacted closer to discharge. Last CM report 02/20/17- Lilliam cb after assessing pt, was advised that due to pt still receiving chemotherapy, pt will be unable to go to [facility]. Also pt will onley be able to be provided with 12 days of rehab. Lilliam will tt pt tomorrow regarding this. Problem Qualifiers (1) Squamous cell lung cancer: Qualified Code: C34.92 - Squamous cell lung cancer, left (2) Anemia: Amada Richey Feb 26, 2017 12:22
--- NOTE | 2017-02-26 18:27 | HHI.PR ---
Subjective Remarks On 3LNC CXR improved aeration of LLL Breathing better No fever Up on the side of bed Exited that he is finishing radiation tommorrow Objective Vital Signs Vital Signs Date Time Temp Pulse Resp B/P Pulse Ox O2 Delivery O2 Flow Rate FiO2 02/26/17 15:50 96.9 110 20 109/70 98 02/26/17 11:50 96.6 109 20 107/59 98 02/26/17 11:25 112 02/26/17 11:13 Room Air 02/26/17 07:30 97.3 119 20 118/71 95 Automatic Cuff 02/26/17 04:00 99.2 115 22 97/54 94 02/26/17 00:00 97.8 112 22 108/66 95 02/25/17 22:28 100/64 02/25/17 20:23 Room Air 02/25/17 20:00 110 02/25/17 20:00 99.0 121 20 119/63 95 I/O 02/25/17 02/25/17 02/25/17 02/26/17 02/26/17 02/26/17 07:00 15:00 23:00 07:00 15:00 23:00 Intake Total 240 ml 480 ml 780 ml 237 ml Output Total 700 ml 550 ml 400 ml 0 ml 570 ml Balance -460 ml -70 ml 380 ml 0 ml -333 ml Intake Oral 240 ml 480 ml 780 ml 237 ml Output Urine Total 700 ml 550 ml 400 ml 0 ml 570 ml # Bowel Movements 1 0 Result Diagram: 02/24/1720 02/24/17 0520 Objective Remarks GENERAL: Patient is lying in bed in NAD SKIN: Warm and dry. HEAD: Normocephalic. EYES: No scleral icterus. No injection or drainage. NECK: Supple, trachea midline. No JVD or lymphadenopathy. CARDIOVASCULAR: Regular rate and rhythm without murmurs, gallops, or rubs. RESPIRATORY: Breath sounds equal bilaterally. No accessory muscle use. GASTROINTESTINAL: Abdomen soft, non-tender, nondistended. MUSCULOSKELETAL: No cyanosis, or edema. BACK: Nontender without obvious deformity. No CVA tenderness. Neuro: Awake and alert A/P Assessment and Plan 1)Resp Insiff 2)Opacification of left hemithorax -Improved 3)Squamous cell ca involving left main stem s/p endobronchial stent placement s/p XTR 4)s/p Hemoptysis 5)ARF 5)Anemia 6)Leukocytosis 7)HTN Plan Continue with oxygen keep sat >92% Bronchodilators (DuoNeb) S/p stent placement in the left main bronchus at [facility]. Supplement 02 to keep sat >90% Aerosol nebs Physical Therapy. Radiation treatment Progressing well with Therapy. Carlos evaluating for therapy Valeriy Wilkins MD Feb 26, 2017 18:27
[2017-02-26] MEDS: ATORVASTATIN 40 MG TAB PO SCH (20:40)
[2017-02-26] MEDS: DOXAZOSIN MESYLATE 4 MG TAB PO SCH (20:40)
[2017-02-27] VITALS: BP 106/55; PULSE 107; RESP 18; TEMP 97.6; O2SAT 96
[2017-02-27] MEDS: ONDANSETRON HCL 4 MG/2 ML VIAL IVP PRN (01:05)
[2017-02-27] MEDS: LORazepam 2 MG/ML VIAL IV PUSH PRN (01:42)
[2017-02-27 04:00] VITALS: BP 115/76; PULSE 119; RESP 20; TEMP 97.7; O2SAT 96
[2017-02-27 06:49] LABS: AUTOMATED NEUTROPHIL # 4.9 TH/MM3 (1.8-7.7); BASOPHIL # 0.1 TH/MM3 (0-0.2); BASOPHIL % 0.9 % (0.0-2.0); EOSINOPHIL # 0.3 TH/MM3 (0-0.4); EOSINOPHIL % 4.4 % (0.0-4.0); HEMATOCRIT 23.7 % (39.0-51.0); HEMO FLAGS DIFF FINAL; LYMPH % 9.8 % (9.0-44.0); LYMPHOCYTE # 0.6 TH/MM3 (1.0-4.8); MEAN CELL VOLUME 86.2 FL (80.0-100.0); MEAN CORPUSCULAR HEMOGLOBIN 29.3 PG (27.0-34.0); MONO % 10.5 % (0.0-8.0); NEUT % 74.4 % (16.0-70.0); PLATELET COUNT 340 TH/MM3 (150-450); RED BLOOD COUNT 2.75 MIL/MM3 (4.50-5.90); RED CELL DISTRIBUTION WIDTH 16.7 % (11.6-17.2); WHITE BLOOD COUNT 6.5 TH/MM3 (4.0-11.0)
[2017-02-27 07:25] LABS: BICARBONATE 24.6 MEQ/L (21.0-32.0); POTASSIUM 4.7 MEQ/L (3.5-5.1)
[2017-02-27 07:50] VITALS: BP 110/71; PULSE 107; RESP 20; TEMP 99.4; O2SAT 96
[2017-02-27] MEDS ORDERED: PHEN125S9 PO (08:01)
[2017-02-27] MEDS ORDERED: FERR300S PO (08:01)
[2017-02-27] MEDS ORDERED: NIFE90TA2 PO (08:01)
[2017-02-27] MEDS ORDERED: FURO8SOL TUBE (08:01)
[2017-02-27] MEDS ORDERED: ATOR40TA16 PO (08:01)
[2017-02-27] MEDS ORDERED: CARD4TAB2 PO (08:01)
[2017-02-27] MEDS ORDERED: MEGE40SU PO (08:01)
[2017-02-27] MEDS ORDERED: HYDR-3516 PO (08:02)
[2017-02-27] MEDS ORDERED: TAMS5CAP PO (08:02)
[2017-02-27] MEDS ORDERED: SENN1TAB PO (08:02)
--- NOTE | 2017-02-27 08:02 | HHI.DS ---
Discharge Summary Admission Date Dec 05, 2016 at 17:04 Discharge Date: Feb 27, 2017 Admitting Diagnosis (1) Bronchiolar obstruction ICD Code: J98.09 Diagnosis: Principal (2) Mass of left lung ICD Code: R91.8 Diagnosis: Principal (3) Squamous cell lung cancer ICD Code: C34.90 Diagnosis: Principal (4) Severe muscle deconditioning ICD Code: R29.898 Diagnosis: Principal (5) Anemia ICD Code: D64.9 Diagnosis: Principal (6) Acute respiratory failure ICD Code: J96.00 Diagnosis: Principal (7) Hemoptysis ICD Code: R04.2 Diagnosis: Secondary (8) Hypoxia ICD Code: R09.02 Diagnosis: Secondary Procedures 12/11- EGD- esophagitis, gastritis, duodenitis PEG placement Brief History - From Admission 71-year-old male with PMH of HTN, recently diagnosed with large mass obstructing the main bronchus with pathology showing squamous cell ca. The patient came initially to [place] with c/o sob and hemoptysis. CTA revealed complete whiteout of the left lung, associated with possible underlying mass/nodularity of the left hilum. He required intubation with mechanical ventilation and continued to have significant hemoptysis. He was evaluated by CVT, who recommended transfer to [facility] in [place]. He was evaluated by Interventional pulmonology and underwent a bronchoscopy with debulking of a large mass involving the left mainstem bronchus. The left main bronchus was stented. Patient was intubated and difficult to wean off. Patient also had complicated hospitalization with PEA arrest 11/08/16 and ARF which required hemodialysis. Patient was intubated and difficult to wean off . He was also treated with abx levaquin finished course of abx. He also required a Dobbhoff tube for feeding purposes. He was stabilized and sent back to our facility for further continuation of care. The patient is currently severe deconditioned and bed bound. At this time, he has not been staged for his cancer. He is being followed by oncology but will need his acute issues addressed and need to be stronger prior to moving forward with management of his lung cancer. Patient is with respiratory failure requiring O2. He is telling me he feels better that yesterday. Says breathing is better. No chest pain, sob. he is on tube feedings. No n/v/d/c. Says he is not able to eat much by mouth. CBC/BMP: 02/27/17 0600 02/27/17 0553 Significant Findings Laboratory Tests Test 02/27/17 02/27/17 05:53 06:00 Blood Urea Nitrogen 44 MG/DL (7-18) Creatinine 1.45 MG/DL (0.60-1.30) Estimat Glomerular Filtration 48 ML/MIN (>89) Rate Calcium Level 8.4 MG/DL (8.5-10.1) Red Blood Count 2.75 MIL/MM3 (4.50-5.90) Hemoglobin 8.1 GM/DL (13.0-17.0) Hematocrit 23.7 % (39.0-51.0) Neutrophils (%) (Auto) 74.4 % (16.0-70.0) Monocytes (%) (Auto) 10.5 % (0.0-8.0) Eosinophils (%) (Auto) 4.4 % (0.0-4.0) Lymphocytes # (Auto) 0.6 TH/MM3 (1.0-4.8) Imaging Last Impressions Chest X-Ray 02/20/17 0000 Signed Impressions: Service Date/Time: February 17:33 - CONCLUSION: 1. Interval clearance of the left lower lobe infiltrate. 2. Persistent consolidation and volume loss involving left upper lobe. Nikolas Roy Jr., MD Abdomen X-Ray 01/30/17 0000 Signed Impressions: Service Date/Time: January 10:55 - CONCLUSION: 1. No evidence for leakage or obstruction after injection of gastrostomy tube. Ken Crandall MD Central Venous Line 01/14/17 1150 Signed Impressions: Service Date/Time: Saturday, January 14, 2017 11:50 - CONCLUSION: Uncomplicated Permcath removal. Beto Perry MD Lower Extremity Ultrasound 01/06/17 0000 Signed Impressions: Service Date/Time: Friday, January 06, 2017 09:02 - CONCLUSION: Normal examination. Shawn Reyes MD Upper Extremity Ultrasound 12/11/16 1506 Signed Impressions: Service Date/Time: Sunday, December 11, 2016 18:00 - CONCLUSION: Superficial thrombophlebitis, extensive edema and nonspecific fluid collections in the subcutaneous tissues. Shawn Reyes MD Head CT 12/11/16 0000 Signed Impressions: Service Date/Time: Sunday, December 11, 2016 20:00 - CONCLUSION: Slight atrophic and small vessel ischemic changes without any evidence for acute hemorrhage or mass effect. Shawn Reyes MD Renal Ultrasound 12/09/16 0000 Signed Impressions: Service Date/Time: Friday, December 09, 2016 15:16 - CONCLUSION: 1. 8.4 cm mass lesion at the base of the bladder. This may represent an intrinsic mass of the bladder versus a prominent anterior lobe of the prostate. 2. Otherwise, urinary bladder is partially decompressed with a Lipscomb catheter. 3. Both kidneys are sonographically normal. Roby Horta MD PE at Discharge GENERAL: Well-nourished, well-developed pleasant male patient in NAD lying in bed comfortably. SKIN: Warm and dry. No rash. HEENT: Normocephalic. Atraumatic. Pupils equal and round. Mucous membranes pink and moist. NECK: Supple. Trachea midline. CARDIOVASCULAR: Regular rate and rhythm. S1, S2 noted. No murmur appreciated. RESPIRATORY: No accessory muscle use. Left lower lung field inspiratory wheeze noted. Breath sounds equal bilaterally. GASTROINTESTINAL: Abdomen soft, non-tender, nondistended. Normoactive bowel sounds x4. PEG tube in place, flushed. Dressing d/i. MUSCULOSKELETAL: No obvious deformities. Extremities without clubbing, cyanosis , or edema. NEUROLOGICAL: Awake and alert. No obvious cranial nerve deficits. Motor grossly within normal limits. Normal speech. PSYCHIATRIC: Appropriate mood and affect; insight and judgment normal. Pt update on day of discharge In the bed. Says she is ipropving with PT. Feels some sob with ambulation. Has some cough no hemoptysis. No fever or chills./ Eating better. Hospital Course 71 Y/O male with: Respiratory failure/Left bronchial mass: - Patient was at [facility]. He underwent bronchoscopy with debulking of a large mass involving the left mainstem bronchus The left main bronchus was stented. The hemoptysis was controlled and he was eventually extubated. - Patient undergoing radiation. Setback on 01/13. Went into respiratory distress. Patient decided to change to DNR status. He was considering hospice. ongoing discussion with his son. Appreciate palliative care assisting. Patient resumed radiation. Wish to remain DNR. Patient planning to finished with radiation and then go home, probably with hospice. Ultimately will be moving to [place]. - O2 supplementation as needed to keep O2 sats > 92%. Currently on RA. DuoNeb's when necessary. Encourage incentive spirometry use. - Pain control. Acute renal failure - Renal function stabilized. Permacath removed. Nephrology signed off. 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 Monitor. Iron deficiency anemia, acute on chronic - Hemoccult positive, consult GI, appreciate recommendations. - Per GI will hold EGD/colonoscopy for now, PEG placed with overnight TFs - Transfuse if hemoglobin <7. 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 Physical deconditioning - Encourage oral intake. - Megace to help with appetite. - Physical therapy as tolerated. Hypertension: Continue procardia 90 mg PO daily, Cardura 8 mg PO HS. DC scheduled clonidine. BPH: continue doxazosin 8 mg qhs. Seizure: Continue Dilantin. Seizure precautions. Stable. Physical deconditioning conditioning. PT consult. DVT prophylaxis: SCD/TEDs Discharge Planning Continue radiation, finishes on 02/27. Plan is for rehab post radiation. Pt reports wanting to go to [facility] to be contacted closer to discharge. Somehow improving. Discharge to [facility] after finishing last dose of radiation. To follow up with PCP and consultants. Pt Condition on Discharge: Stable Discharge Disposition: Rehab Inpatient Discharge Time: > 30 minutes Discharge Instructions DIET: Follow Instructions for: On Tube Feeding Speech Therapy-Diet Recommends: Mechanical Soft Additional Diet Instructions: On tube feedings with tray. Nepro 65 . Mechanical soft Activities you can perform: Regular-No Restrictions Follow up Referrals: Oncology - 1 Week PCP Follow-up - 1 Week New Medications: Pantoprazole (Protonix) 40 Mg Tab 40 MG PO DAILY Reflux #30 Ref 0 TAB Atorvastatin (Atorvastatin) 40 Mg Tab 40 MG PO HS Cholesterol Management #30 TAB Doxazosin (Cardura) 4 Mg Tab 8 MG PO HS bph #30 TAB Ferrous Sulfate Liq (Ferrous Sulfate Liq) 300 Mg/5 Ml Soln 300 MG PO DAILY anemia, iron defic #120 BOTTLE Furosemide Liq (Furosemide Liq) 8 Mg/Ml Soln 20 MG TUBE DAILY edema #30 ML Hydrocodone-Acetaminophen (Hydrocodone-Acetaminophen) 5-325 mg Tab 2 TAB PO Q4H PRN PAIN >5 #30 TAB Megestrol Liq (Megestrol Liq) 40 Mg/Ml Susp 400 MG PO DAILY appetite enhancer Days 30 BOTTLE Nifedipine (Nifedipine ER) 90 Mg Tab 90 MG PO DAILY Blood Pressure Management #30 TAB Phenytoin (Phenytoin) 100 Mg/4 Ml Oral.susp 300 MG PO Q12HR seizures Days 30 BOTTLE Sennosides-Docusate Sodium (Senna Plus 8.6-50 mg) 1 Tab Tab 2 TAB PO BID PRN CONSTIPATION #60 TAB Tamsulosin (Flomax) 0.4 Mg Cap 0.4 MG PO DAILY bph #30 CAP Discontinued Medications: Methylprednisolone Sod Succinate Inj (Solu-Medrol Inj) 125 Mg Inj 60 MG IV PUSH Q6H Constipation #1 Ref 0 INJECTION Phenytoin Extended (Dilantin) 100 Mg Cap 300 MG PO BID Control Seizures #270 Ref 0 CAP Terazosin (Terazosin) Unknown Strength Cap Unknown Dose PO HS #30 Ref 0 CAP Izzy Degroot MD Feb 27, 2017 08:02
[2017-02-27] MEDS ORDERED: PROT40TA PO (08:29)
[2017-02-27] MEDS ORDERED: PANTOPRAZOLE SOD 40 MG DELAYED RELEASE TAB PO ONE (08:30)
[2017-02-27] MEDS: FERROUS SULFATE 300 MG /5ML UDC PO SCH (08:45)
[2017-02-27] MEDS: guaiFENesin E.R. 600 MG TAB PO SCH (08:45)
[2017-02-27] MEDS: TAMSULOSIN HCL 0.4 MG CAP PO SCH (08:45)
[2017-02-27] MEDS: PHENYTOIN SUSP 100 MG/4 ML CUP PO SCH (08:46)
[2017-02-27] MEDS: NIFEdipine 90 MG SUSTAINED RELEASE TAB PO SCH (08:46)
[2017-02-27] MEDS: MEGESTROL ACETATE SUSP 400 MG/10 ML CUP PO SCH (08:46)
[2017-02-27] MEDS: HEPARIN SODIUM - SQ 10,000 UNITS/ML VIAL SQ SCH (08:46)
[2017-02-27] MEDS: ACETAMINOPHEN/HYDROcodone 325 MG/5 MG TAB PO PRN (08:55)
[2017-02-27] MEDS: FLUTICASONE PROPIONATE 50 MCG/ACT 16 GM NASAL SPRAY EACH NARE SCH (09:00)
[2017-02-27] MEDS: SODIUM CHLORIDE 0.9% FLUSH 5 ML FLUSH FLUSH SCH (09:00)
[2017-02-27] MEDS: PANTOPRAZOLE SOD 40 MG DELAYED RELEASE TAB PO SCH (09:00)
[2017-02-27 11:30] VITALS: BP 110/64; PULSE 103; RESP 20; TEMP 97.3; O2SAT 95
[2017-02-27 12:43] VITALS: PULSE 106
--- NOTE | 2017-02-27 16:00 | RADONCENDT ---
END OF TREATMENT SUMMARY PRIMARY REFERRING PHYSICIAN: Tevin Hobbs CC: Tevin Hobbs DIAGNOSIS: Primary C34.92 - Malignant neoplasm of unspecified part of left bronchus or lung, Diagnosed 12/21/2016 (Active) Stage IIIA, T3, N2, M0 Primary C34.02 - Malignant neoplasm of left main bronchus, Diagnosed 12/18/2016 (Active) , Diagnosis Confirmed: Suspected Diagnosis Date: 12/21/2016 Diagnosis Laterality: Method of Diagnosis: Unknown Biopsy of lung lesion. PRESCRIPTION AND TREATMENT: Lt Lung (Plan ID - Lt Lung Cs2) - Rx Dose 3,600cGy (Status - Treatment Approved) - Lt Lung (Plan ID - Lt Lung Cs1:1) - Rx Dose 3,400cGy (Status - Treatment Approved) - He completed all treatments. PLAN FRACTIONS AND DATES: Course: Lt Lung Plan IDFractionsFirst TreatmentLast TreatmentExpected End of TreatmentLt Lung Cs116 / 16 Lt Lung Cs1:Lt Lung Cs218 / 02/27/2017 TREATED PLANS: Course: Lt Lung Plan IDEnergyFractionsDose per Fraction (cGy)Total Dose Delivered (cGy)Elapsed DaysLt Lung Cs1:16X17 / [id number] Lung [id number] / [id number] TOLERANCE: He tolerated treatment well but remained very weak having been bed bound for several months prior to and during treatment. FOLLOW UP PLAN: He is to have a CT chest in 6-8 weeks in follow up. Wei Uriostegui MD 02/27/2017 3:59:43 PM This report was verified electronicallyThis report was verified electronically
[2017-03-11] MEDS ORDERED: WHEEMIS3 (12:37)
[2017-03-11] MEDS ORDERED: shower chair (12:37)
[2017-03-11] MEDS ORDERED: COMMODE 3-IN-11 MIS (12:37)
[2017-03-11] MEDS ORDERED: GETGO ROLLING W1 MI1 (12:37)
[2017-03-11] MEDS ORDERED: [UNRECOGNIZED DRUG - SUPPLY] (13:50)
[2017-03-11] MEDS ORDERED: SYMB160A INH (13:55)
[2017-03-11] MEDS ORDERED: DILA100C PO (13:55)
[2017-03-11] MEDS ORDERED: NIFE30TA8 PO (13:55)
[2017-03-11] MEDS ORDERED: FERR325T20 PO (13:55)
[2017-03-11] MEDS ORDERED: VENTAER INH (13:55)
[2017-03-11] MEDS ORDERED: CARV3.125 PO (13:55)
[2017-03-11] MEDS ORDERED: TAMS5CAP PO (13:55)
[2017-03-11] MEDS ORDERED: CARD2TAB PO (13:55)
[2017-03-11] MEDS ORDERED: PROT40TA PO (13:55)
[2017-03-11] MEDS ORDERED: ATOR40TA16 PO (13:55)
== END 2017-02-27 13:24 | DRG 180 ==
LOC: N07A 16:00 → OBSVTOIN 17:04 → HIMN 12-25 14:49 → HOCB 12-27 01:45 → HOCA 02-08 19:02
PROVIDERS: ADMIT Hospitalist; ATTEND Hospitalist
PROC: 30233N1 Transfusion of Nonautologous Red Blood Cells into Peripheral Vein, Percutaneous Approach (ICD-10-PCS; 2016-12-06)
PROC: 5A1D60Z (ICD-10-PCS; principal; 2016-12-07)
PROC: 0DB98ZX Excision of Duodenum, Via Natural or Artificial Opening Endoscopic, Diagnostic (ICD-10-PCS; 2016-12-11)
PROC: 0DB68ZX Excision of Stomach, Via Natural or Artificial Opening Endoscopic, Diagnostic (ICD-10-PCS; 2016-12-11)
PROC: 0DB38ZX Excision of Lower Esophagus, Via Natural or Artificial Opening Endoscopic, Diagnostic (ICD-10-PCS; 2016-12-11)
PROC: 0DH63UZ Insertion of Feeding Device into Stomach, Percutaneous Approach (ICD-10-PCS; 2016-12-11 10:02)
PROC: 5A09357 Assistance with Respiratory Ventilation, Less than 24 Consecutive Hours, Continuous Positive Airway Pressure (ICD-10-PCS; 2016-12-25)
PROC: 0DBM8ZX Excision of Descending Colon, Via Natural or Artificial Opening Endoscopic, Diagnostic (ICD-10-PCS; 2017-01-01)
PROC: DB022ZZ Beam Radiation of Lung using Photons >10 MeV (ICD-10-PCS; 2017-01-08)
PROC: 0TJB8ZZ Inspection of Bladder, Via Natural or Artificial Opening Endoscopic (ICD-10-PCS; 2017-01-10)
DX: C34.02 Malignant neoplasm of left main bronchus (principal); N17.0 Acute kidney failure with tubular necrosis; E43 Unspecified severe protein-calorie malnutrition; J96.02 Acute respiratory failure with hypercapnia; R13.10 Dysphagia, unspecified; J96.01 Acute respiratory failure with hypoxia; G93.41 Metabolic encephalopathy; B37.49 Other urogenital candidiasis; J98.19 Other pulmonary collapse; N18.6 End stage renal disease; I82.611 Acute embolism and thrombosis of superficial veins of right upper extremity; C34.92 Malignant neoplasm of unspecified part of left bronchus or lung; L03.114 Cellulitis of left upper limb; I12.0 Hypertensive chronic kidney disease with stage 5 chronic kidney disease or end stage renal disease; Z86.74 Personal history of sudden cardiac arrest; Z74.01 Bed confinement status; Z99.2 Dependence on renal dialysis; Z80.1 Family history of malignant neoplasm of trachea, bronchus and lung; Z87.891 Personal history of nicotine dependence; M62.50 Muscle wasting and atrophy, not elsewhere classified, unspecified site; N40.1 Benign prostatic hyperplasia with lower urinary tract symptoms; Z86.010 Personal history of colon polyps; R47.02 Dysphasia; Z51.5 Encounter for palliative care; K44.9 Diaphragmatic hernia without obstruction or gangrene; K29.70 Gastritis, unspecified, without bleeding; K29.80 Duodenitis without bleeding; K52.9 Noninfective gastroenteritis and colitis, unspecified; K20.9 Esophagitis, unspecified; E87.6 Hypokalemia; G40.909 Epilepsy, unspecified, not intractable, without status epilepticus; R35.1 Nocturia; N32.89 Other specified disorders of bladder; N30.90 Cystitis, unspecified without hematuria; D12.4 Benign neoplasm of descending colon; Z66 Do not resuscitate; K64.8 Other hemorrhoids; K59.00 Constipation, unspecified; R42 Dizziness and giddiness; R06.6 Hiccough; I95.1 Orthostatic hypotension; E83.39 Other disorders of phosphorus metabolism
CPT/HCPCS: 36430; 36589; 36600; 70450; 71010; 74000; 76775; 76882; 76937; 77014; 77263; 77300; 77301; 77334; 77336; 77338; 77385; 77386; 77387; 77427; 80048; 80053; 80069; 80076; 80185; 81001; 82272; 82550; 82805; 83540; 83550; 83690; 83735; 84100; 84155; 84484; 85007; 85014; 85018; 85025; 85027; 85610; 86077; 86850; 86870; 86900; 86901; 86902; 86922; 87040; 87086; 87641; 88112; 88305; 90935; 93005; 93970; 93971; 94002; 94003; 94150; 94640; 94664; 96374; 96375; 99223; J0690; J0696; J1450; J1580; J1644; J1756; J1940; J2060; J2270; J2370; J2405; J7030; J7050; J7512; P9016; Q4081; Q9963